=== PATIENT | female | born 1940 | race Caucasian/White ===

== ENCOUNTER 2018-06-22 16:05 | Observation (INO) | payer OTHER ==
[2018-06-22] MEDS ORDERED: FENTANYL CITR 100 MCG/2 ML IV PRN (17:18)
[2018-06-22 17:39] VITALS: BMI 38.1
[2018-06-22] MEDS ORDERED: ACETAMINOPHEN 325 MG TABLET PO PRN (18:00)
[2018-06-22] MEDS ORDERED: ONDANSETRON 4 MG/2 ML VIAL IV PRN (18:00)
[2018-06-22] MEDS ORDERED: POLYETHYL GLY 3350 17 GM/DOSE PO PRN (18:00)
[2018-06-22] MEDS ORDERED: PNEUMOCOCCAL VACCINE 0.5 ML IMVAC ONE (18:00)
[2018-06-22] MEDS ORDERED: DIPHENHYDRAMINE 25 MG TAB/CAP PO PRN (18:00)
[2018-06-22] MEDS ORDERED: LOPERAMIDE HCL 2 MG CAPSULE PO PRN (18:00)
[2018-06-22] MEDS ORDERED: NACHLORIDE 0.45% 1,000 ML IV SCH (18:00)
[2018-06-22] MEDS ORDERED: ONDANSETRON 4 MG (ODT) TAB PO PRN (18:00)
[2018-06-22] MEDS ORDERED: MECLIZINE HCL 25 MG PO PRN (18:10)
[2018-06-22 18:28] LABS: Absolute Lymphocytes (CBC) 1.5 K/uL (0.7-4.9); Absolute Monocytes 0.7 K/uL (0.1-1.3); Absolute Neutrophil 2.1 K/uL (1.8-8.0); Basophils % 0.5 % (0-1.3); Eosinophils % 0.7 % (0-4.4); Lymphocytes % 34.2 % (15.3-44.8); Monocytes % 16.2 % (3.3-12.3); RBC Red Blood Cell Count 3.71 M/uL (3.86-4.86)
[2018-06-22] MEDS ORDERED: FLUOCINONIDE 0.05% CREAM 30GM TOP PRN (18:30)
[2018-06-22] MEDS ORDERED: TIMOLOL MALEATE 0.5% OPTH 5 ML BTL OPTH SCH (18:30)
[2018-06-22 18:31] LABS: Protime INR 0.91
[2018-06-22 18:53] LABS: Urine Appearance CLOUDY; Urine Blood NEGATIVE (NEG); Urine Color DK YELLOW; Urine Glucose 1+ (NEG); Urine Protein TRACE (NEG); Urine Specific Gravity 1.025 (1.005-1.030)
[2018-06-22 18:55] LABS: Urine Microscopic Reflex ORDER UMIC
[2018-06-22 18:56] LABS: Urine Bilirubin 1+ (NEG)
[2018-06-22] MEDS ORDERED: LORazepam 2 MG/ML VIAL IV ONE (19:01)
[2018-06-22 19:05] LABS: Urine Bacteria 20-50 /HPF (<20); Urine Culture Reflex Order REFLEXED; Urine Mucus 2+ /HPF (NONE SEEN); Urine RBC <5 /HPF (NONE SEEN)
[2018-06-22 19:07] LABS: ALT/SGPT 38 U/L (12-78); AST/SGOT 36 U/L (15-37); Albumin 3.4 g/dL (3.4-5.0); Alkaline Phosphatase 82 U/L (45-117); BUN Blood Urea Nitrogen 37 mg/dL (7-18); Bicarbonate 25 mmol/L (21-32); Bilirubin Direct < 0.1 mg/dL (0-0.2); Bilirubin Total 0.4 mg/dL (0.2-1.0); C-Reactive Protein < 2.90 mg/L (<3.00); Glucose Level 274 mg/dL (74-106); Magnesium 2.1 mg/dL (1.8-2.4); Phosphorus 2.8 mg/dL (2.5-4.9); Potassium 4.9 mmol/L (3.5-5.1); Protein, Total 7.8 g/dL (6.4-8.2); Sodium Level 135 mmol/L (136-145)
[2018-06-22 19:15] LABS: Platelet Estimate ADEQ; Rouleau NOTED
[2018-06-22 19:16] LABS: Blood Morphology Comment NOTED (NOT SEEN); Macrocytosis 3+
[2018-06-22] MEDS ORDERED: GLUCAGON 1 MG/VIAL IM PRN (20:30)
[2018-06-22] MEDS ORDERED: D50W 25 GM/50 ML SYRINGE IV PRN (20:30)
[2018-06-22] MEDS ORDERED: INSULIN DETEMIR 25 UNIT SQ SCH (20:30)
--- NOTE | 2018-06-22 20:47 | RAD REPORT ---
EXAM DESCRIPTION: RAD - Chest Pa And Lat (2 Views) - 06/22/2018 8:34 pm CLINICAL HISTORY: intractable headache Chest pain. COMPARISON: CHEST PA AND LAT 2 VIEW dated 11/27/2011; CHEST PA AND LAT 2 VIEW dated 08/07/2009; CHEST P A AND LAT 2 VIEW dated 12/18/2008; CHEST PA AND LAT 2 VIEW dated 05/07/2006 FINDINGS: Mild interstitial prominence is seen which may represent mild interstitial pulmonary edema or viral pneumonitis. No focal consolidation typical of pneumonia present. The heart is upper limit of normal in size. Cholecystectomy clips.
--- NOTE | 2018-06-22 20:54 | RAD REPORT ---
EXAM DESCRIPTION: MRI - Brain W/Wo Cont - 06/22/2018 8:30 pm CLINICAL HISTORY: INTRACTABLE HEADACHE Severe headache, drowsiness COMPARISON: MRA Head Wo Cont dated 06/22/2018; Stroke Protocol dated 02/17/2017 TECHNIQUE: Multi-sequence, multiplanar MR imaging of the brain was performed with contrast. FINDINGS: No intracranial hemorrhage, hydrocephalus, or extra-axial fluid collection.Pilb-ad-eeapwmw e T2 and FLAIR hyperintensity is seen in the periventricular deep white matter compatible with chroni c microvascular ischemic changes. No edema or shift of midline structures. CSF intensity collection i n the left middle cranial fossa is unchanged, likely an arachnoid cyst.No intracranial mass. DWI is n egative for acute CVA. The midline structures are normally formed. Mastoid air cells and paranasal sinuses are clear. Post-contrast images show no abnormal enhancement to suggest tumor or infection. IMPRESSION: No acute or aggressive intracranial abnormalities. No adverse change since 2017 comparative MR study.
--- NOTE | 2018-06-22 20:55 | RAD REPORT ---
EXAM DESCRIPTION: MRI - MRA Head Wo Cont - 06/22/2018 8:28 pm CLINICAL HISTORY: intractable headache Headache, vomiting, drowsiness COMPARISON: Head Brain Wo Cont dated 02/17/2017 FINDINGS: 3D noncontrast ywst-vj-[id number] MR angiography of the [place] was performed. No aneurysm, flow-limiting stenosis or vascular malformation is seen. Forward flow seen in right-side d dominant vertebral arteries. The visualized dural venous sinuses appear patent. IMPRESSION: No significant flow abnormality of the [place] is identified.
--- NOTE | 2018-06-22 20:58 | RAD REPORT ---
EXAM DESCRIPTION: MRI - MRA Neck W/Wo Cont - 06/22/2018 8:30 pm CLINICAL HISTORY: INTRACTABLE HEADACHE Headache, drowsiness COMPARISON: Stroke Protocol dated 02/17/2017 FINDINGS: Contrast enhance 2D [id number]-[id number] MR angiography of the neck vessels was performed. Left aortic arch is noted with a bovine branching configuration. Both subclavian arteries and common carotid arteries are patent. A focal stenosis is identified involving the right carotid bulb estimated at 90% based on NASCET crit eria. No significant stenosis suspected involving the left internal carotid artery. Antegrade flow is seen in both vertebral arteries, with right-sided dominance. IMPRESSION: Right carotid bulb 90% focal stenosis suspected based on NASCET criteria.
[2018-06-22] MEDS: INSULIN -REGULAR HUMAN 50 UNIT/0.5 ML ML SQ SCH (21:00)
[2018-06-22] MEDS: MAGNESIUM OXIDE 400 MG TAB PO SCH (21:00)
[2018-06-22] MEDS: FENTANYL CITR 100 MCG/2 ML IV PRN (22:59)
[2018-06-23] MEDS: FENTANYL CITR 100 MCG/2 ML IV PRN ×2 (01:55→17:25)
[2018-06-23 06:29] LABS: Absolute Lymphocytes (CBC) 1.6 K/uL (0.7-4.9); Absolute Neutrophil 2.3 K/uL (1.8-8.0); Basophils % 0.7 % (0-1.3); Eosinophils % 1.4 % (0-4.4); Lymphocytes % 32.2 % (15.3-44.8); MPV 8.9 fL (7.6-11.3); Monocytes % 20.1 % (3.3-12.3); RBC Red Blood Cell Count 3.61 M/uL (3.86-4.86)
[2018-06-23 06:43] LABS: Magnesium 2.1 mg/dL (1.8-2.4); Potassium 4.4 mmol/L (3.5-5.1)
[2018-06-23] MEDS: INSULIN -REGULAR HUMAN 50 UNIT/0.5 ML ML SQ SCH ×3 (07:30→16:30)
--- NOTE | 2018-06-23 07:34 | EKG ---
Test Date: 2018-06-22 Test Time: 17:43:53 [employer] Installation Supervisor: MISSAEL MEASUREMENT RESULTS: Intervals: Rate: 54 SD: 182 QRSD: 98 QT: 456 QTc: 432 [place]: P: 27 SD: 182 QRS: 15 T: 29 INTERPRETIVE STATEMENTS: Sinus bradycardia with sinus arrhythmia Otherwise normal ECG Compared to ECG 02/17/2017 12:32:49 Sinus rhythm no longer present Electronically Signed On 06-23-18 07:33:41 CDT by Tunde Tiwari
[2018-06-23] MEDS ORDERED: INSULIN ASPART 15 UNIT SQ SCH (08:00)
[2018-06-23] MEDS ORDERED: PANTOPRAZOLE 40MG TABLET PO SCH (08:00)
[2018-06-23 08:26] VITALS: BP 166/72
[2018-06-23] MEDS: MAGNESIUM OXIDE 400 MG TAB PO SCH (09:00)
[2018-06-23] MEDS ORDERED: HOME MED 1 EA UNK (Ropinirole Hcl [Ropinirole Hcl] 0.5 MG) PO SCH (09:00)
[2018-06-23] MEDS ORDERED: ASPIRIN EC 81 MG TAB PO SCH (09:00)
[2018-06-23] MEDS ORDERED: HYDROXYUREA 500 MG CAP PO SCH (09:00)
[2018-06-23] MEDS ORDERED: CLOPIDOGREL 75 MG TABLET PO SCH (09:00)
[2018-06-23] MEDS ORDERED: OXcarbazepine 150 MG TAB PO SCH (09:00)
[2018-06-23] MEDS ORDERED: SPIRONOLACTONE 100 MG TAB PO SCH (09:00)
[2018-06-23] MEDS ORDERED: AMLODIPINE 2.5 MG TAB PO SCH (09:00)
[2018-06-23] MEDS ORDERED: PREGABALIN 50 MG CAP PO SCH (09:54)
[2018-06-23] MEDS: ACYCLOVIR INJ 500 MG in NA CHLORIDE 0.9% 100 ML IVPB SCH ×2 (10:47→17:26)
[2018-06-23 12:26] VITALS: TEMP 97
[2018-06-23 16:13] VITALS: O2SAT 96
[2018-06-23] MEDS ORDERED: HOME MED 1 EA UNK (Insulin Detemir [Levemir Flextouch] 10 UNITS) SQ SCH (17:00)
--- NOTE | 2018-06-23 21:37 | P.DS ---
Admission Date: 06/22/18 Discharge Date: 06/23/18 Disposition: ROUTINE DISCHARGE Discharge Condition: FAIR Hospital Course: MRS. MORENO DEVELOPED RASH ALONG THE DERMATOM IN THE AREA OF PAIN. SCALP, L SIDE CHEEK. THIS CONFIRMS SHINGLES. SHE IS GIVEN TWO DOSE OF IV ACYCLCIR, ORAL LYRICA AND THEN SENT HOME ON ORAL MEDS. DW DAUGHTER TWICE Vital Signs/Physical Exam: Temp Pulse Resp BP Pulse Ox 97 F 67 17 166/72 H 96 06/23/18 12:00 06/23/18 12:00 06/23/18 12:00 06/23/18 08:00 06/23/18 12:00 Laboratory Data at Discharge: WBC 5.1 K/uL (4.3-10.9) D 06/23/18 05:35 Hgb 14.1 g/dL (12.0-15.0) 06/23/18 05:35 Hct 42.0 % (36.0-45.0) 06/23/18 05:35 Plt Count 234 K/uL (152-406) 06/23/18 05:35 PT 10.8 SECONDS (9.5-12.5) 06/22/18 18:08 INR 0.91 06/22/18 18:08 APTT 26.7 SECONDS (24.3-36.9) 06/22/18 18:08 Sodium 137 mmol/L (136-145) 06/23/18 05:35 Potassium 4.4 mmol/L (3.5-5.1) 06/23/18 05:35 BUN 29 mg/dL (7-18) H 06/23/18 05:35 Creatinine 0.93 mg/dL (0.55-1.3) 06/23/18 05:35 Glucose 209 mg/dL (74-106) H 06/23/18 05:35 Phosphorus 2.8 mg/dL (2.5-4.9) 06/22/18 18:08 Magnesium 2.1 mg/dL (1.8-2.4) 06/23/18 05:35 Total Bilirubin 0.4 mg/dL (0.2-1.0) 06/22/18 18:08 AST 36 U/L (15-37) 06/22/18 18:08 ALT 38 U/L (12-78) 06/22/18 18:08 Alkaline Phosphatase 82 U/L (45-117) 06/22/18 18:08 Home Medications: Amlodipine Besylate [Norvasc] 2.5 mg PO DAILY 06/22/18 Aspirin [Aspirin EC 81 MG] 81 mg PO DAILY 06/22/18 Clopidogrel Bisulfate [Plavix] 75 mg PO DAILY 06/22/18 Fluocinonide [Lidex] 1 appl TOP DAILY PRN 06/22/18 Hydroxyurea [Hydrea] 500 mg PO DAILY 06/22/18 Insulin Aspart [Novolog Flexpen] 15 unit SQ TIDWM 06/22/18 Insulin Detemir [Levemir Flextouch] 10 units SQ DAILY AT SUPPER 06/22/18 Insulin Detemir [Levemir Flextouch] 25 unit SQ 30 MIN BEFORE HS 06/22/18 Magnesium Oxide [Mag 0X Tab] 400 mg PO BID 06/22/18 Meclizine HCl [Motion Sickness Relief] 25 mg PO TID PRN 06/22/18 Pantoprazole Sodium 40 mg PO DAILY WITH BREAKFAST 06/22/18 Ropinirole HCl 0.5 mg PO DAILY 06/22/18 Spironolactone [Aldactone] 100 mg PO DAILY 06/22/18 Timolol 0.5% Opth [Timoptic 0.5% Opth*] 50 drops EACH EYE DAILY 06/22/18 Pregabalin [Lyrica] 75 mg PO BID #60 cap 06/23/18 Valacyclovir [Valtrex] 1,000 mg PO BID #20 tab 06/23/18 New Medications: Pregabalin [Lyrica] 75 mg PO BID #60 cap Valacyclovir [Valtrex] 1,000 mg PO BID #20 tab Followup: Frederick Gomez MD [Primary Care Provider] -
== END 2018-06-23 19:00 | disposition home or self-care (01) ==
LOC: 2ND 16:20
PROVIDERS: ADMIT Internal Medicine; ATTEND Internal Medicine
DX: B02.9 Zoster without complications (principal); E11.9 Type 2 diabetes mellitus without complications; I10 Essential (primary) hypertension; E78.5 Hyperlipidemia, unspecified; Z88.7 Allergy status to serum and vaccine; Z86.73 Personal history of transient ischemic attack (TIA), and cerebral infarction without residual deficits
CPT/HCPCS: 93005; 87088; 85025 ×2; 87086; 80048 ×2; 36415 ×2; 83735 ×2; 84100; 85610; 82962 ×5; 80076; 85730; 85652; 84443; 82607; 82306; 86140; 71046; 70553; 70544; 70549; A9577; J3010 ×4; J0133; G0379; G0378; 81003; 81015

== ENCOUNTER 2018-07-11 18:38 | Emergency (ER) | payer OTHER ==
[2018-07-11] MEDS ORDERED: ONDANSETRON 4 MG/2 ML VIAL ONE (19:35)
[2018-07-11] MEDS ORDERED: MORPHINE 4 MG/ML SYR ONE (19:35)
[2018-07-11 19:44] LABS: Absolute Lymphocytes (CBC) 1.5 K/uL (0.7-4.9); Absolute Monocytes 0.9 K/uL (0.1-1.3); Absolute Neutrophil 5.3 K/uL (1.8-8.0); Basophils % 0.3 % (0-1.3); Eosinophils % 0.3 % (0-4.4); Hematocrit 39.2 % (36.0-45.0); Lymphocytes % 18.9 % (15.3-44.8); MPV 9.1 fL (7.6-11.3); Monocytes % 12.1 % (3.3-12.3); RBC Red Blood Cell Count 3.37 M/uL (3.86-4.86)
[2018-07-11 20:01] LABS: Albumin 3.5 g/dL (3.4-5.0); Bilirubin Total 1.1 mg/dL (0.2-1.0); Potassium 5.2 mmol/L (3.5-5.1); Protein, Total 7.8 g/dL (6.4-8.2)
[2018-07-11 20:29] LABS: Blood Morphology Comment NOTED (NOT SEEN); Macrocytosis 1+; Platelet Estimate ADEQ; Urine White Blood Cell Casts OK
--- NOTE | 2018-07-11 20:54 | RAD REPORT ---
EXAM DESCRIPTION: RAD - Hip Left 2 View - 07/11/2018 8:09 pm CLINICAL HISTORY: Fall, twisting injury, hip pain COMPARISON: None. FINDINGS: AP and frogleg views of the left hip were obtained. There is no fracture or dislocation. N o acute or destructive bony process seen. Moderate severity degenerative change involves the joint. No pathologic bone process. No periarticular mass or hematoma. There may be minimal bruising in the lateral subcu fat. IMPRESSION: Negative left hip examination for acute or significant findings.
--- NOTE | 2018-07-11 20:55 | RAD REPORT ---
EXAM DESCRIPTION: RAD - Knee Left 3 View - 07/11/2018 8:09 pm CLINICAL HISTORY: Fall, twisting injury, knee pain COMPARISON: None. FINDINGS: No fracture, dislocation or periosteal reaction.No joint effusion seen. Significant patell ofemoral and medial compartment joint space narrowing. Large medial compartment spurs are present. No pathologic bone process. No soft tissue abnormality. IMPRESSION: Advanced left knee degenerative change without acute bone or joint finding. Clinical concerns for internal derangement or occult bony injury could be further assessed with MR im aging.
--- NOTE | 2018-07-11 21:19 | ER ---
Nurse's Notes [facility] Name: Arminda Rodriguez Age: 78 yrs Sex: Female : 1940 Arrival Date: 07/11/2018 Time: 18:42 Bed 6 Private MD: Diagnosis: Contusion of left hip;Pain in left knee;Osteoarthritis of hip-left;Osteoarthritis of knee-left Presentation: 07/11 18:42 Presenting complaint: EMS states: EMS states patient fell after taking a shower in a ae3 "twisting, sitting motion" and is now having severe pain in her left knee and left hip areas. Patient is unable to stand or place weight on left leg. Mechanism of Injury: Fall. 18:42 Acuity: GORDO 3 ae3 18:42 Method Of Arrival: EMS: [facility] ae3 18:58 Transition of care: patient was not received from another setting of care. Onset of ph symptoms was July 11, 2018. Risk Assessment: Do you want to hurt yourself or someone else? Patient reports no desire to harm self or others. Initial Sepsis Screen: Does the patient meet any 2 criteria? No. Patient's initial sepsis screen is negative. Does the patient have a suspected source of infection? No. Patient's initial sepsis screen is negative. Care prior to arrival: None. 18:59 Trauma event details: Injury occurred in the [facility], Injury occurred: at home. Injury occurred: July 10, 2018. Trauma Activation: Not Applicable Physician: ED Physician; Name: ; Notified At: ; Arrived At: Physician: General Surgeon; Name: ; Notified At: ; Arrived At: Physician: Radiology; Name: ; Notified At: ; Arrived At: Physician: Respiratory; Name: ; Notified At: ; Arrived At: Physician: Lab; Name: ; Notified At: ; Arrived At: Historical: - Allergies: 18:54 Amaryl; ae3 18:54 Amoxicillin; ae3 18:54 ANGIOTENSIN RECEPTOR ANTAGONIST; ae3 18:54 Augmentin; ae3 18:54 Byetta; ae3 18:54 Demerol; ae3 18:54 Hydrocodone-Acetaminophen; ae3 18:54 Januvia; ae3 18:54 Lantus; ae3 18:54 metformin; ae3 18:54 Niaspan; ae3 18:54 QUINOLONES; ae3 18:54 Pmonzwf-Dmg-Zsl Reductase Inhibitors; ae3 18:54 Tetanus Immune Globulin; ae3 18:54 Zetia; ae3 - Home Meds: 18:54 Aldactone 50 mg Oral tab 1 tab once daily [Active]; Jublia 10 % Topical benigno once daily ae3 [Active]; Levemir FlexTouch 100 unit/mL (3 mL) subcutaneous inpn [Active]; Norvasc 2.5 mg Oral tab 1 tab once daily [Active]; Novolin R Sub-Q [Active]; - PMHx: 18:54 CAD; Diabetes - NIDDM; Hyperlipidemia; Hypertension; VENTRAL HERNIA; ae3 - Immunization history:: Adult Immunizations unknown. - Immunization history: Last tetanus immunization: - up to date. - Social history:: Smoking status: Patient/guardian denies using tobacco. - Ebola Screening: : No symptoms or risks identified at this time. Screenin:51 Abuse screen: Denies threats or abuse. Tuberculosis screening: No symptoms or risk ae3 factors identified. 18:56 Fall Risk Fall in past 12 months (25 points). No secondary diagnosis (0 pts). IV access ph (20 points). Ambulatory Aid- None/Bed Rest/Nurse Assist (0 pts). Gait- Impaired (20 pts.). Mental Status- Oriented to own ability (0 pts). Total Benítez Fall Scale indicates High Risk Score (45 or more points). Fall prevention measures have been instituted. Side Rails Up X 2 Placed Close to Nursing Station Frequent Obs/Assessments Occuring As available patient and family educated on Fall Prevention Program and Strategies. 18:59 Nutritional screening: No deficits noted. ph Primary Survey: 18:48 NO uncontrolled hemorrhage observed. A: The patient is alert. Airway: patent. ae3 Breathing/Chest: Respiratory pattern: regular, Respiratory effort: spontaneous. Circulation: Skin color: pink. Disability Alert. Exposure/Environment:. 20:17 Reassessment Airway Airway Breathing/Chest Respiratory pattern Regular Respiratory ak1 effort Unlabored. Assessment: 18:42 General: Appears distressed, uncomfortable, obese, unkempt, Behavior is cooperative, ae3 anxious, restless. Pain: Complains of pain in left hip Pain currently is 10 out of 10 on a pain scale. Neuro: Level of Consciousness is awake, alert, obeys commands, Oriented to person, place, time, situation. Respiratory: Airway is patent Respiratory effort is even, unlabored. Vital Signs: 18:42 BP 197 / 163; Pulse 81; Resp 22; Temp 99.3; Pulse Ox 100% on R/A; Weight 98.88 kg; Pain ph 10/10; 20:16 BP 149 / 129; Pulse 65; Resp 20; Temp 98.8; Pulse Ox 100% on R/A; ak1 21:13 BP 147 / 69; Pulse 63; Resp 20; Temp 98.8; Pulse Ox 100% on R/A; ak1 22:29 BP 134 / 72; Pulse 74; Resp 16; Temp 99.2(TE); Pulse Ox 98% on R/A; Pain 4/10; ak1 Sherri Coma Score: 18:42 Eye Response: spontaneous(4). Verbal Response: oriented(5). Motor Response: obeys ph commands(6). Total: 15. 18:51 Eye Response: spontaneous(4). Verbal Response: oriented(5). Motor Response: obeys ae3 commands(6). Total: 15. Trauma Score (Adult): 18:42 Eye Response: spontaneous(1); Verbal Response: oriented(1); Motor Response: obeys ph commands(2); Systolic BP: > 89 mm Hg(4); Respiratory Rate: 10 to 29 per min(4); Freeland Score: 15; Trauma Score: 12 18:51 Eye Response: spontaneous(1); Verbal Response: oriented(1); Motor Response: obeys ae3 commands(2); Systolic BP: > 89 mm Hg(4); Respiratory Rate: 10 to 29 per min(4); Sherri Score: 15; Trauma Score: 12 ED Course: 18:42 Patient arrived in ED. ae3 18:45 Saúl Del Cid NP is PHCP. pm1 18:45 Jake Espino MD is Attending Physician. pm1 18:46 Triage completed. ae3 18:50 Bed in low position. Side rails up X2. Pulse ox on. NIBP on. Warm blanket given. ae3 18:52 Arm band placed on. ph 18:52 Patient maintains SpO2 saturation greater than 95% on room air. ae3 18:58 Thermoregulation: warm blanket given to patient. ph 19:36 Krenek, Trudy, RN is Primary Nurse. ak1 19:38 Initial lab(s) drawn, by me, sent to lab. X-ray(s) taken. Inserted saline lock: 24 ak1 gauge in right antecubital area, using aseptic technique. Blood collected. 20:10 Knee Left 3 View XRAY In Process Unspecified. EDMS 20:10 Hip Left 2 View XRAY In Process Unspecified. EDMS 22:31 No provider procedures requiring assistance completed. ak1 23:01 IV discontinued, intact, bleeding controlled, No redness/swelling at site. Pressure ak1 dressing applied. Administered Medications: 19:37 Drug: morphine 4 mg Route: IVP; Site: right antecubital; ak1 20:07 Follow up: Response: No adverse reaction ak1 19:37 Drug: Zofran 4 mg Route: IVP; Site: right antecubital; ak1 20:07 Follow up: Response: No adverse reaction ak1 21:35 Drug: NS 0.9% 500 ml Route: IV; Rate: bolus; Site: right antecubital; ak1 22:30 Follow up: IV Status: Completed infusion; IV Intake: 500ml ak1 21:35 Drug: morphine 2 mg Route: IVP; Site: right antecubital; ak1 22:30 Follow up: Response: No adverse reaction; Pain is decreased ak1 23:02 Not Given (pt and family refused, Saúl notified. ): Kayexalate 15 grams PO once ak1 23:02 Drug: traMADol 50 mg Route: PO; ak1 23:04 Follow up: Response: No adverse reaction; Pain is decreased ak1 Intake: 18:42 PO: 0ml; Total: 0ml. ph 22:30 IV: 500ml; Total: 500ml. ak1 Output: 18:42 Urine: 0ml; Total: 0ml. ph Outcome: 21:18 Discharge ordered by . pm1 22:31 Condition: stable ak1 23:01 Discharged to home via wheelchair, with family. ak1 23:01 Discharge instructions given to patient, family, Instructed on discharge instructions, follow up and referral plans. no drinking with medication, no driving heavy equipment, medication usage, Demonstrated understanding of instructions, follow-up care, medications, Prescriptions given X 1. 23:03 Patient's length of stay in the Emergency Department was greater than 2 hours. pt ak1 family stated they did not believe they could care for pt if she came home, other options explored with no success. pt family to contact local rehab facilities in the morning for possible placement. Patient's length of stay extended due to 23:10 Patient left the ED. ak1 Signatures: Dispatcher [employer] EDTrudy Yang RN RN ak1 Susanna Mckeon RN RN ph Marinas, Patrick, SHEET METAL PRODUCTION WORKER SHEET METAL PRODUCTION WORKER pm1 Brittanie Paulino
--- NOTE | 2018-07-11 21:19 | EDPHYS ---
Physician Documentation [facility] Name: Arminda Rodriguez Age: 78 yrs Sex: Female : 1940 Arrival Date: 07/11/2018 Time: 18:42 Bed 6 Private MD: ED Physician Jake Espino HPI: 07/11 19:45 This 78 yrs old Female presents to ER via EMS with complaints of Fall Injury. pm1 19:45 Details of fall: The patient fell from an upright position, while standing. Onset: The pm1 symptoms/episode began/occurred yesterday. Associated injuries: The patient sustained left hip and left knee. Severity of symptoms: in the emergency department the symptoms are actually worse. The patient has not experienced similar symptoms in the past. The patient has not recently seen a physician, the patient's primary care provider is Dr. Gomez. Patient was standing in her bathroom and fell on her left side yesterday. Patient is primarily W/C bound. Reports bilateral knees have needed replacement for years. Presents with pain to left hip and left knee. Denies headache, head injury, LOC, neck pain, nausea and vomiting. Historical: - Allergies: 18:54 Amaryl; ae3 18:54 Amoxicillin; ae3 18:54 ANGIOTENSIN RECEPTOR ANTAGONIST; ae3 18:54 Augmentin; ae3 18:54 Byetta; ae3 18:54 Demerol; ae3 18:54 Hydrocodone-Acetaminophen; ae3 18:54 Januvia; ae3 18:54 Lantus; ae3 18:54 metformin; ae3 18:54 Niaspan; ae3 18:54 QUINOLONES; ae3 18:54 Frljgyw-Krz-Otr Reductase Inhibitors; ae3 18:54 Tetanus Immune Globulin; ae3 18:54 Zetia; ae3 - Home Meds: 18:54 Aldactone 50 mg Oral tab 1 tab once daily [Active]; Jublia 10 % Topical benigno once daily ae3 [Active]; Levemir FlexTouch 100 unit/mL (3 mL) subcutaneous inpn [Active]; Norvasc 2.5 mg Oral tab 1 tab once daily [Active]; Novolin R Sub-Q [Active]; - PMHx: 18:54 CAD; Diabetes - NIDDM; Hyperlipidemia; Hypertension; VENTRAL HERNIA; ae3 - Immunization history:: Adult Immunizations unknown. - Immunization history: Last tetanus immunization: - up to date. - Social history:: Smoking status: Patient/guardian denies using tobacco. - Ebola Screening: : No symptoms or risks identified at this time. ROS: 19:45 Constitutional: Negative for fever, chills, and weight loss, Eyes: Negative for injury, pm1 pain, redness, and discharge, ENT: Negative for injury, pain, and discharge, Neck: Negative for injury, pain, and swelling, Cardiovascular: Negative for chest pain, palpitations, and edema, Respiratory: Negative for shortness of breath, cough, wheezing, and pleuritic chest pain, Abdomen/GI: Negative for abdominal pain, nausea, vomiting, diarrhea, and constipation, Back: Negative for injury and pain, : Negative for injury, bleeding, discharge, and swelling. 19:45 Skin: Negative for injury, rash, and discoloration, Neuro: Negative for headache, weakness, numbness, tingling, and seizure. 19:45 MS/extremity: Positive for pain, of the left hip and left knee, Negative for deformity. Exam: 19:45 Constitutional: This is a well developed, well nourished patient who is awake, alert, pm1 and in no acute distress. Head/Face: Normocephalic, atraumatic. Eyes: Pupils equal round and reactive to light, extra-ocular motions intact. Lids and lashes normal. Conjunctiva and sclera are non-icteric and not injected. Cornea within normal limits. Periorbital areas with no swelling, redness, or edema. ENT: Nares patent. No nasal discharge, no septal abnormalities noted. Tympanic membranes are normal and external auditory canals are clear. Oropharynx with no redness, swelling, or masses, exudates, or evidence of obstruction, uvula midline. Mucous membranes moist. Neck: Trachea midline, no thyromegaly or masses palpated, and no cervical lymphadenopathy. Supple, full range of motion without nuchal rigidity, or vertebral point tenderness. No Meningismus. Chest/axilla: Normal chest wall appearance and motion. Nontender with no deformity. No lesions are appreciated. Cardiovascular: Regular rate and rhythm with a normal S1 and S2. No gallops, murmurs, or rubs. Normal PMI, no JVD. No pulse deficits. Respiratory: Lungs have equal breath sounds bilaterally, clear to auscultation and percussion. No rales, rhonchi or wheezes noted. No increased work of breathing, no retractions or nasal flaring. Abdomen/GI: Soft, non-tender, with normal bowel sounds. No distension or tympany. No guarding or rebound. No evidence of tenderness throughout. Back: No spinal tenderness. No costovertebral tenderness. Full range of motion. Skin: Warm, dry with normal turgor. Normal color with no rashes, no lesions, and no evidence of cellulitis. 19:45 Musculoskeletal/extremity: Extremities: grossly normal except: noted in the left knee: tenderness, There is no evidence of deformity, noted in the left hip: no evidence of deformity. 19:45 Neuro: Orientation: is normal, Motor: is normal, moves all fours, Sensation: is normal, no obvious gross deficits. Vital Signs: 18:42 BP 197 / 163; Pulse 81; Resp 22; Temp 99.3; Pulse Ox 100% on R/A; Weight 98.88 kg; Pain ph 10/10; 20:16 BP 149 / 129; Pulse 65; Resp 20; Temp 98.8; Pulse Ox 100% on R/A; ak1 21:13 BP 147 / 69; Pulse 63; Resp 20; Temp 98.8; Pulse Ox 100% on R/A; ak1 22:29 BP 134 / 72; Pulse 74; Resp 16; Temp 99.2(TE); Pulse Ox 98% on R/A; Pain 4/10; ak1 Independence Coma Score: 18:42 Eye Response: spontaneous(4). Verbal Response: oriented(5). Motor Response: obeys ph commands(6). Total: 15. 18:51 Eye Response: spontaneous(4). Verbal Response: oriented(5). Motor Response: obeys ae3 commands(6). Total: 15. Trauma Score (Adult): 18:42 Eye Response: spontaneous(1); Verbal Response: oriented(1); Motor Response: obeys ph commands(2); Systolic BP: > 89 mm Hg(4); Respiratory Rate: 10 to 29 per min(4); Independence Score: 15; Trauma Score: 12 18:51 Eye Response: spontaneous(1); Verbal Response: oriented(1); Motor Response: obeys ae3 commands(2); Systolic BP: > 89 mm Hg(4); Respiratory Rate: 10 to 29 per min(4); Independence Score: 15; Trauma Score: 12 MDM: 18:48 Patient medically screened. staci 21:10 Data reviewed: vital signs. Data interpreted: Pulse oximetry: on room air is 100 %. pm1 Interpretation: normal. Counseling: I had a detailed discussion with the patient and/or guardian regarding: the historical points, exam findings, and any diagnostic results supporting the discharge/admit diagnosis, lab results, radiology results, the need for outpatient follow up, to return to the emergency department if symptoms worsen or persist or if there are any questions or concerns that arise at home. 23:00 ED course: Explained to family at length that patient does not meet admission criteria pm1 due to diagnosis of contusion and advanced degenerative diseases/arthritis to left knee and left hip. Instructed patient and family that she will need to be evaluated by PCP, Dr. Gomez for home health care or residential. Family would prefer that the patient receive home adalberto nursing. 07/11 18:50 Order name: CBC with Diff; Complete Time: 20:29 pm1 07/11 18:50 Order name: CMP; Complete Time: 20:03 pm1 07/11 18:50 Order name: PT-INR; Complete Time: 19:53 pm1 07/11 18:50 Order name: Knee Left 3 View XRAY; Complete Time: 21:02 pm1 07/11 18:50 Order name: Hip Left 2 View XRAY; Complete Time: 21:02 pm1 07/11 20:29 Order name: CBC Smear Scan; Complete Time: 20:29 EDMS 07/11 18:50 Order name: IV Saline Lock; Complete Time: 19:38 pm1 Administered Medications: 19:37 Drug: morphine 4 mg Route: IVP; Site: right antecubital; ak1 20:07 Follow up: Response: No adverse reaction ak1 19:37 Drug: Zofran 4 mg Route: IVP; Site: right antecubital; ak1 20:07 Follow up: Response: No adverse reaction ak1 21:35 Drug: NS 0.9% 500 ml Route: IV; Rate: bolus; Site: right antecubital; ak1 22:30 Follow up: IV Status: Completed infusion; IV Intake: 500ml ak1 21:35 Drug: morphine 2 mg Route: IVP; Site: right antecubital; ak1 22:30 Follow up: Response: No adverse reaction; Pain is decreased ak1 23:02 Not Given (pt and family refused, Saúl notified. ): Kayexalate 15 grams PO once ak1 23:02 Drug: traMADol 50 mg Route: PO; ak1 23:04 Follow up: Response: No adverse reaction; Pain is decreased ak1 Disposition: 07/12 06:48 Co-signature as Attending Physician, Jake Espino MD I agree with the assessment and staci plan of care. Disposition: 07/11/18 21:18 Discharged to Home. Impression: Contusion of left hip, Pain in left knee, Osteoarthritis of hip - left, Osteoarthritis of knee - left. - Condition is Stable. - Discharge Instructions: Arthritis, Contusion, Fall Prevention in the Home, Knee Pain, Hip Pain. - Prescriptions for Tramadol 50 mg Oral Tablet - take 1 tablet by ORAL route every 8 hours As needed as needed; 20 tablet. - Medication Reconciliation Form, Thank You Letter, Antibiotic Education, Prescription Opioid Use form. - Follow up: Emergency Department; When: As needed; Reason: Worsening of condition. Follow up: Private Physician; When: 2 - 3 days; Reason: Recheck today's complaints, Continuance of care, Re-evaluation by your physician. - Problem is new. - Symptoms have improved. Signatures: Dispatcher [employer] [facility] Jake Espino MD MD cha Krenek, Amber RN RN ak1 Susanna Mckeon RN RN Saúl Ribeiro, KILN CAR UNLOADER KILN CAR UNLOADER pm1 Brittanie Paulino ae3 Corrections: (The following items were deleted from the chart) 07/11 20:05 20:04 Hip Left 2 View ordered. [facility] 23:10 21:18 07/11/2018 21:18 Discharged to Home. Impression: Contusion of left hip; Pain in ak1 left knee; Osteoarthritis of hip - left; Osteoarthritis of knee - left. Condition is Stable. Forms are Medication Reconciliation Form, Thank You Letter, Antibiotic Education, Prescription Opioid Use. Follow up: Emergency Department; When: As needed; Reason: Worsening of condition. Follow up: Private Physician; When: 2 - 3 days; Reason: Recheck today's complaints, Continuance of care, Re-evaluation by your physician. Problem is new. Symptoms have improved. pm1
[2018-07-11] MEDS ORDERED: MORPHINE 2 MG/ML SYR ONE (21:41)
[2018-07-11] MEDS ORDERED: NA CHLORIDE 0.9% 500 ML ONE (21:41)
[2018-07-11] MEDS ORDERED: SOD POLYSTYREN SUL 15 GM/60 ML UCUP ONE (21:42)
[2018-07-11] MEDS ORDERED: TRAMADOL HCL 50 MG TAB ONE (22:58)
[2018-07-11 23:30] VITALS: BP 134/72; TEMP 99.2; O2SAT 98
== END 2018-07-11 23:10 | disposition home or self-care (01) ==
LOC: ER 18:38
DX: S70.02XA Contusion of left hip, initial encounter (principal); W18.30XA Fall on same level, unspecified, initial encounter; Y93.89 Activity, other specified; Y92.002 Bathroom of unspecified non-institutional (private) residence as the place of occurrence of the external cause; M16.12 Unilateral primary osteoarthritis, left hip; M17.12 Unilateral primary osteoarthritis, left knee; M25.562 Pain in left knee; I10 Essential (primary) hypertension; E11.9 Type 2 diabetes mellitus without complications; E78.5 Hyperlipidemia, unspecified; Z88.6 Allergy status to analgesic agent; Z88.1 Allergy status to other antibiotic agents; Z88.8 Allergy status to other drugs, medicaments and biological substances; Z88.7 Allergy status to serum and vaccine
CPT/HCPCS: 85025; 36415; 85610; 80053; 73502; 73562; J2270; J2405; 96361; 96374; 96375; 99285

== ENCOUNTER 2018-07-27 07:19 | Inpatient (IN) | payer OTHER ==
[2018-07-26 14:44] LABS: Absolute Lymphocytes (CBC) 1.7 K/uL (0.7-4.9); Absolute Monocytes 0.9 K/uL (0.1-1.3); Basophils % 0.8 % (0-1.3); Eosinophils % 0.8 % (0-4.4); Lymphocytes % 29.8 % (15.3-44.8); MPV 8.3 fL (7.6-11.3); Monocytes % 16.2 % (3.3-12.3); RBC Red Blood Cell Count 3.38 M/uL (3.86-4.86)
[2018-07-26 14:58] LABS: Potassium 4.2 mmol/L (3.5-5.1)
[2018-07-26 16:03] LABS: Blood Morphology Comment NOTED (NOT SEEN); Macrocytosis 3+; Platelet Estimate ADEQ; Urine White Blood Cell Casts OK
[2018-07-27] MEDS ORDERED: NA CHLORIDE 0.9% 500 ML ONE (08:10)
[2018-07-27 08:50] LABS: Protime INR 0.94
[2018-07-27] MEDS ORDERED: HEPA 1000U/500MLS 1,000 UNIT/500 ML BAG IV ONE (09:01)
[2018-07-27] MEDS ORDERED: FENTANYL CITR 100 MCG/2 ML ONE (09:16)
[2018-07-27] MEDS ORDERED: MIDAZOLAM HCL 2 MG/2 ML INJ ONE (09:16)
[2018-07-27] MEDS ORDERED: ATROPINE SULF 1 MG/10 ML SYR IV ONE (09:17)
[2018-07-27] MEDS ORDERED: NA CHLORIDE 0.9% 0 ML ONE (09:17)
[2018-07-27 10:55] VITALS: O2SAT 100
[2018-07-27] MEDS ORDERED: ACETAMINOPHEN 325 MG TABLET PO PRN (12:01)
[2018-07-27] MEDS ORDERED: NITROGLYCERIN 0.4 MG/TAB SL PRN (12:01)
[2018-07-27] MEDS ORDERED: NA CHLORIDE 0.9% 1,000 ML IV SCH (13:00)
[2018-07-27 13:23] VITALS: BMI 37.8
[2018-07-27] MEDS ORDERED: PNEUMOCOCCAL VACCINE 0.5 ML IMVAC ONE (16:00)
[2018-07-27 16:34] VITALS: BP 171/69; TEMP 97.3
--- NOTE | 2018-07-27 18:32 | OP ---
Date of Procedure: 07/27/2018 Surgeon: Adán Harvey MD Retort Furnace Helper: Ms. Wogn and Ayaan Roca. Procedures: Bilateral selective carotid angiogram, selective coronary arteriogram, left heart cathet erization. Indication: Unstable angina and cerebral vascular disease. Procedure In Detail: Ms. Rodriguez is 78. Documented positive carotid Doppler and unstable angina. Adm itted for left heart catheterization, selective bilateral carotid angiogram as an outpatient today, 0 07/27/2018. She was prepped and draped in the routine sterile fashion. Given 50 mg of fentanyl and 4 mg of Versed for sedation. The right common femoral artery was cannulated with a 6-English sheath. Angiography using right Rick catheter was used to selectively cannulate both carotids. She had a left carotid that was normal. Her right carotid showed an 80% ulcerative plaque in the right interna l carotid artery. The common carotid was normal. The right coronary artery was completely occluded. Left Rick used to do the left main injection, showed a very long mid-LAD stenosis from the first septal to the second diagonal. Diffuse disease below that. Plaquing in the circumflex with collate rals to the RCA PD. The patient tolerated the procedure well. There were no complications. Blood Loss: 5 cc. Anesthesia: Total conscious sedation was 45 minutes. Final Diagnoses: Severe coronary artery disease and cardiovascular disease. Plan: We will admit the patient and [facility] carotid endarterectomy a nd bypass surgery at least hopefully the GUZMAN to the LAD. PEE/SULEIMAN Voice ID: [id number] Report ID: [id number]
== END 2018-07-27 16:42 | disposition short-term general hospital (02) | DRG 287 ==
LOC: CCL 07:19 → 2ND 12:13
PROC: 4A023N7 Measurement of Cardiac Sampling and Pressure, Left Heart, Percutaneous Approach (ICD-10-PCS; principal; 2018-07-27)
PROC: B201YZZ Plain Radiography of Multiple Coronary Arteries using Other Contrast (ICD-10-PCS; 2018-07-27)
PROC: B205YZZ Plain Radiography of Left Heart using Other Contrast (ICD-10-PCS; 2018-07-27)
DX: I25.110 Atherosclerotic heart disease of native coronary artery with unstable angina pectoris (principal); E11.9 Type 2 diabetes mellitus without complications; I10 Essential (primary) hypertension; E78.5 Hyperlipidemia, unspecified; Z86.73 Personal history of transient ischemic attack (TIA), and cerebral infarction without residual deficits; E66.9 Obesity, unspecified; Z68.37 Body mass index [BMI] 37.0-37.9, adult
CPT/HCPCS: 36222; 36415; 80048; 85025; 85610; 85730; 93454; C1893; J0583; J2250; J3010; J7030

== ENCOUNTER 2019-05-08 14:04 | Inpatient (IN) | payer OTHER ==
--- OUTSIDE RECORDS SUMMARY | 2019-05-08 14:11 | XMS REPORT ---
:1940 Author Organization [facility] Address [address] [place] [address] Care Team Providers Name Role Phone SATYASABAS SPARROWLOW Unavailable Unavailable ABDON VENTURA Unavailable Unavailable Problems This patient has no known problems. Allergies, Adverse Reactions, Alerts This patient has no known allergies or adverse reactions. Medications This patient has no known medications. Results Test Description Test Time Test Comments Text Results Atomic Results Result Comments POCT-GLUCOSE METER 2018-08-17 12:30:00 Test Item Value Reference Range Comments POC-GLUCOSE METER (BEAKER) (test 164 mg/dL 70-110 TESTED AT [address] ylqe=7064) [facility] [address] POCT-GLUCOSE [id number] 12:29:00 Test Item Value Reference Range Comments POC-GLUCOSE METER (BEAKER) 83 mg/dL 70-110 TESTED AT [address] (test irqk=0099) [facility] [address] POCT-GLUCOSE [id number] 22:17:00 Test Item Value Reference Range Comments POC-GLUCOSE METER (BEAKER) 116 mg/dL 70-110 TESTED AT [address] (test cwvd=8683) [facility] [address] POCT-GLUCOSE [id number] 17:38:00 Test Item Value Reference Range Comments POC-GLUCOSE METER (BEAKER) 168 mg/dL 70-110 TESTED AT [address] (test jbal=5854) [facility] [address] POCT-GLUCOSE [id number] 12:41:00 Test Item Value Reference Range Comments POC-GLUCOSE METER (BEAKER) 243 mg/dL 70-110 TESTED AT [address] (test ntrw=7528) [facility] [address] POCT-GLUCOSE [id number] 09:34:00 Test Item Value Reference Range Comments POC-GLUCOSE METER (BEAKER) 193 mg/dL 70-110 TESTED AT [address] (test slxp=8339) [facility] [address] POCT-GLUCOSE [id number] 21:52:00 Test Item Value Reference Range Comments POC-GLUCOSE METER (BEAKER) 222 mg/dL 70-110 TESTED AT [address] (test jrqa=1529) [facility] [address] POCT-GLUCOSE [id number] 18:59:00 Test Item Value Reference Range Comments POC-GLUCOSE METER (BEAKER) 181 mg/dL 70-110 TESTED AT [address] (test ezyq=1413) [facility] [address] POCT-GLUCOSE [id number] 14:21:00 Test Item Value Reference Range Comments POC-GLUCOSE METER (BEAKER) 179 mg/dL 70-110 TESTED AT [address] (test hpjb=1605) [place] [id number] POCT-GLUCOSE [id number] 09:40:00 Test Item Value Reference Range Comments POC-GLUCOSE METER (BEAKER) 211 mg/dL 70-110 TESTED AT [address] (test cdie=7361) [facility] [address] BASIC METABOLIC [id number] 06:49:00 Test Item Value Reference Range Comments SODIUM (BEAKER) (test 132 meq/L 136-145 yssc=001) POTASSIUM (BEAKER) (test 4.1 meq/L 3.5-5.1 qveb=348) CHLORIDE (BEAKER) (test 98 meq/L 98-107 dcya=097) CO2 (BEAKER) (test 28 meq/L 22-29 giyj=541) BLOOD UREA NITROGEN 28 mg/dL 7-21 (BEAKER) (test azbm=634) CREATININE (BEAKER) (test 0.72 mg/dL 0.57-1.25 ioxa=888) GLUCOSE RANDOM (BEAKER) 242 mg/dL 70-105 (test jtoi=748) CALCIUM (BEAKER) (test 9.0 mg/dL 8.4-10.2 akjy=523) EGFR (BEAKER) (test 79 mL/min/1.73 sq m ESTIMATED GFR IS NOT xaro=9842) ACCURATE CREATININE CLEARANCE IN PREDICTING GLOMERULAR FILTRATION RATE. ESTIMATED GFR IS NOT APPLICABLE FOR DIALYSIS PATIENTS. CBC W/PLT COUNT & AUTO [id number] 06:45:00 Test Item Value Reference Range Comments WHITE BLOOD CELL COUNT (BEAKER) (test pwjk=284) 7.7 K/ L 3.5-10.5 RED BLOOD CELL COUNT (BEAKER) (test vtcd=047) 2.69 M/ L 3.93-5.22 HEMOGLOBIN (BEAKER) (test eojg=887) 9.8 GM/DL 11.2-15.7 HEMATOCRIT (BEAKER) (test gtpc=170) 29.6 % 34.1-44.9 MEAN CORPUSCULAR VOLUME (BEAKER) (test coch=358) 110.0 fL 79.4-94.8 MEAN CORPUSCULAR HEMOGLOBIN (BEAKER) (test 36.4 pg 25.6-32.2 tkpr=226) MEAN CORPUSCULAR HEMOGLOBIN CONC (BEAKER) (test 33.1 GM/DL 32.2-35.5 ejkb=489) RED CELL DISTRIBUTION WIDTH (BEAKER) (test 18.2 % 11.7-14.4 yalm=936) PLATELET COUNT (BEAKER) (test dhbu=480) 332 K/CU MM 150-450 MEAN PLATELET VOLUME (BEAKER) (test xhas=105) 10.3 fL 9.4-12.3 NUCLEATED RED BLOOD CELLS (BEAKER) (test 1 /100 WBC 0-0 rwiv=894) NEUTROPHILS RELATIVE PERCENT (BEAKER) (test 65 % epou=518) LYMPHOCYTES RELATIVE PERCENT (BEAKER) (test 19 % vrag=708) MONOCYTES RELATIVE PERCENT (BEAKER) (test 14 % slwo=510) EOSINOPHILS RELATIVE PERCENT (BEAKER) (test 1 % gffb=065) BASOPHILS RELATIVE PERCENT (BEAKER) (test 0 % iayc=354) NEUTROPHILS ABSOLUTE COUNT (BEAKER) (test 5.02 K/ L 1.56-6.13 joyz=176) LYMPHOCYTES ABSOLUTE COUNT (BEAKER) (test 1.42 K/ L 1.18-3.74 omgs=081) MONOCYTES ABSOLUTE COUNT (BEAKER) (test 1.06 K/ L 0.24-0.36 womh=796) EOSINOPHILS ABSOLUTE COUNT (BEAKER) (test 0.11 K/ L 0.04-0.36 nalg=641) BASOPHILS ABSOLUTE COUNT (BEAKER) (test 0.03 K/ L 0.01-0.08 xkhv=059) IMMATURE GRANULOCYTES-RELATIVE PERCENT (BEAKER) 1 % 0-1 (test nzgz=7304) URINALYSIS W/ [id number] 04:40:00 Test Item Value Reference Range Comments COLOR (BEAKER) (test gmzq=668) Yellow CLARITY (BEAKER) (test oued=116) Hazy SPECIFIC GRAVITY UA (BEAKER) (test xbuk=917) 1.014 1.001-1.035 PH UA (BEAKER) (test nxbn=849) 6.5 5.0-8.0 PROTEIN UA (BEAKER) (test qszc=934) 10 mg/dL Negative GLUCOSE UA (BEAKER) (test ixvm=836) >1000 mg/dL Negative KETONES UA (BEAKER) (test zvlm=660) Negative Negative BILIRUBIN UA (BEAKER) (test qkef=390) Negative Negative BLOOD UA (BEAKER) (test dcjl=491) Negative Negative NITRITE UA (BEAKER) (test smsh=701) Negative Negative LEUKOCYTE ESTERASE UA (BEAKER) (test wmfx=102) Large Negative UROBILINOGEN UA (BEAKER) (test xffx=315) 0.2 mg/dL 0.2-1.0 RBC UA (BEAKER) (test nabf=115) 1 /HPF WBC UA (BEAKER) (test ipnz=610) 93 /HPF BACTERIA (BEAKER) (test llxs=981) Many SQUAMOUS EPITHELIAL (BEAKER) (test tirc=527) 1 /HPF SOURCE(BEAKER) (test fjeb=3784) POCT-GLUCOSE [id number] 20:47:00 Test Item Value Reference Range Comments POC-GLUCOSE METER (BEAKER) 273 mg/dL 70-110 TESTED AT [place] [address] [address] (test hnen=4408) [facility] [address] POCT-GLUCOSE [id number] 18:20:00 Test Item Value Reference Range Comments POC-GLUCOSE METER (BEAKER) 305 mg/dL 70-110 Notified LEILA SMITH/TESTED AT [facility] (test mhap=9684) [facility] [address] [facility] [address] POCT-GLUCOSE [id number] 14:27:00 Test Item Value Reference Range Comments POC-GLUCOSE METER (BEAKER) 215 mg/dL 70-110 TESTED AT [address] (test hjnl=7248) [facility] [address] POCT-GLUCOSE [id number] 12:10:00 Test Item Value Reference Range Comments POC-GLUCOSE METER (BEAKER) 278 mg/dL 70-110 TESTED AT [address] (test pxpd=9469) [facility] [address] POCT-GLUCOSE [id number] 08:12:00 Test Item Value Reference Range Comments POC-GLUCOSE METER (BEAKER) 225 mg/dL 70-110 TESTED AT [address] (test cwwa=5771) [facility] [address] POCT-GLUCOSE [id number] 21:36:00 Test Item Value Reference Range Comments POC-GLUCOSE METER (BEAKER) 272 mg/dL 70-110 TESTED AT [address] (test kclk=9364) [place] [id number] POCT-GLUCOSE [id number] 18:06:00 Test Item Value Reference Range Comments POC-GLUCOSE METER (BEAKER) 264 mg/dL 70-110 TESTED AT [address] (test habc=2186) [facility] [address] POCT-GLUCOSE [id number] 13:33:00 Test Item Value Reference Range Comments POC-GLUCOSE METER (BEAKER) 225 mg/dL 70-110 TESTED AT [address] (test ifct=2532) [facility] [address] POCT-GLUCOSE [id number] 08:16:00 Test Item Value Reference Range Comments POC-GLUCOSE METER (BEAKER) 217 mg/dL 70-110 TESTED AT [address] (test gypg=8611) [place] [address] [id number] 07:48:00 Test Item Value Reference Range Comments MAGNESIUM (BEAKER) (test umdj=872) 1.6 mg/dL 1.6-2.6 BASIC METABOLIC [id number] 07:48:00 Test Item Value Reference Range Comments SODIUM (BEAKER) (test 132 meq/L 136-145 iocc=325) POTASSIUM (BEAKER) (test 3.7 meq/L 3.5-5.1 jxxf=814) CHLORIDE (BEAKER) (test 94 meq/L 98-107 urei=457) CO2 (BEAKER) (test 29 meq/L 22-29 opqu=475) BLOOD UREA NITROGEN 20 mg/dL 7-21 (BEAKER) (test ibxq=556) CREATININE (BEAKER) (test 0.82 mg/dL 0.57-1.25 sbid=821) GLUCOSE RANDOM (BEAKER) 181 mg/dL 70-105 (test ltdm=110) CALCIUM (BEAKER) (test 9.4 mg/dL 8.4-10.2 oxve=649) EGFR (BEAKER) (test 68 mL/min/1.73 sq m ESTIMATED GFR IS NOT wicu=8362) ACCURATE CREATININE CLEARANCE IN PREDICTING GLOMERULAR FILTRATION RATE. ESTIMATED GFR IS NOT APPLICABLE FOR DIALYSIS PATIENTS. CBC W/PLT COUNT & AUTO [id number] 07:18:00 Test Item Value Reference Range Comments WHITE BLOOD CELL COUNT (BEAKER) (test evik=287) 7.5 K/ L 3.5-10.5 RED BLOOD CELL COUNT (BEAKER) (test erlp=885) 3.14 M/ L 3.93-5.22 HEMOGLOBIN (BEAKER) (test zrxh=350) 11.3 GM/DL 11.2-15.7 HEMATOCRIT (BEAKER) (test dmjw=656) 33.7 % 34.1-44.9 MEAN CORPUSCULAR VOLUME (BEAKER) (test xure=576) 107.3 fL 79.4-94.8 MEAN CORPUSCULAR HEMOGLOBIN (BEAKER) (test 36.0 pg 25.6-32.2 lvno=000) MEAN CORPUSCULAR HEMOGLOBIN CONC (BEAKER) (test 33.5 GM/DL 32.2-35.5 movv=376) RED CELL DISTRIBUTION WIDTH (BEAKER) (test 18.3 % 11.7-14.4 hoxc=926) PLATELET COUNT (BEAKER) (test ucmq=419) 307 K/CU MM 150-450 MEAN PLATELET VOLUME (BEAKER) (test vzdu=551) 10.7 fL 9.4-12.3 NUCLEATED RED BLOOD CELLS (BEAKER) (test 1 /100 WBC 0-0 wszd=460) NEUTROPHILS RELATIVE PERCENT (BEAKER) (test 65 % ksnf=155) LYMPHOCYTES RELATIVE PERCENT (BEAKER) (test 15 % pqsv=593) MONOCYTES RELATIVE PERCENT (BEAKER) (test 16 % uzgq=307) EOSINOPHILS RELATIVE PERCENT (BEAKER) (test 2 % omhx=799) BASOPHILS RELATIVE PERCENT (BEAKER) (test 0 % kjdu=777) NEUTROPHILS ABSOLUTE COUNT (BEAKER) (test 4.92 K/ L 1.56-6.13 opro=352) LYMPHOCYTES ABSOLUTE COUNT (BEAKER) (test 1.12 K/ L 1.18-3.74 kbnm=737) MONOCYTES ABSOLUTE COUNT (BEAKER) (test 1.20 K/ L 0.24-0.36 igbm=919) EOSINOPHILS ABSOLUTE COUNT (BEAKER) (test 0.17 K/ L 0.04-0.36 vkjs=244) BASOPHILS ABSOLUTE COUNT (BEAKER) (test 0.03 K/ L 0.01-0.08 rhup=453) IMMATURE GRANULOCYTES-RELATIVE PERCENT (BEAKER) 1 % 0-1 (test lafb=1054) POCT-GLUCOSE [id number] 23:19:00 Test Item Value Reference Range Comments POC-GLUCOSE METER (BEAKER) 214 mg/dL 70-110 TESTED AT [address] (test rshv=3743) [place] [address] POCT-GLUCOSE [id number] 16:37:00 Test Item Value Reference Range Comments POC-GLUCOSE METER (BEAKER) 192 mg/dL 70-110 TESTED AT [address] (test bojq=5785) [place] [address] POCT-GLUCOSE [id number] 12:47:00 Test Item Value Reference Range Comments POC-GLUCOSE METER (BEAKER) 233 mg/dL 70-110 TESTED AT [address] (test ucuw=6322) [place] [address] BASIC METABOLIC [id number] 11:26:00 Test Item Value Reference Range Comments SODIUM (BEAKER) (test 132 meq/L 136-145 xbex=115) POTASSIUM (BEAKER) (test 3.7 meq/L 3.5-5.1 fnsg=392) CHLORIDE (BEAKER) (test 94 meq/L 98-107 uspd=960) CO2 (BEAKER) (test 28 meq/L 22-29 hzgp=917) BLOOD UREA NITROGEN 11 mg/dL 7-21 (BEAKER) (test jrqq=057) CREATININE (BEAKER) (test 0.68 mg/dL 0.57-1.25 snik=783) GLUCOSE RANDOM (BEAKER) 231 mg/dL 70-105 (test qalv=406) CALCIUM (BEAKER) (test 9.4 mg/dL 8.4-10.2 gtua=755) EGFR (BEAKER) (test 84 mL/min/1.73 sq m ESTIMATED GFR IS NOT yjra=8372) ACCURATE CREATININE CLEARANCE IN PREDICTING GLOMERULAR FILTRATION RATE. ESTIMATED GFR IS NOT APPLICABLE FOR DIALYSIS PATIENTS. [id number] 11:26:00 Test Item Value Reference Range Comments MAGNESIUM (BEAKER) (test hcgs=786) 1.2 mg/dL 1.6-2.6 CBC W/PLT COUNT & AUTO [id number] 11:17:00 Test Item Value Reference Range Comments WHITE BLOOD CELL COUNT (BEAKER) (test neno=938) 9.7 K/ L 3.5-10.5 RED BLOOD CELL COUNT (BEAKER) (test jzgl=122) 3.22 M/ L 3.93-5.22 HEMOGLOBIN (BEAKER) (test oiuz=946) 11.7 GM/DL 11.2-15.7 HEMATOCRIT (BEAKER) (test lstk=829) 34.2 % 34.1-44.9 MEAN CORPUSCULAR VOLUME (BEAKER) (test udan=813) 106.2 fL 79.4-94.8 MEAN CORPUSCULAR HEMOGLOBIN (BEAKER) (test 36.3 pg 25.6-32.2 ddlx=167) MEAN CORPUSCULAR HEMOGLOBIN CONC (BEAKER) (test 34.2 GM/DL 32.2-35.5 hxuo=415) RED CELL DISTRIBUTION WIDTH (BEAKER) (test 18.1 % 11.7-14.4 hvdj=713) PLATELET COUNT (BEAKER) (test sgpg=081) 273 K/CU MM 150-450 MEAN PLATELET VOLUME (BEAKER) (test acvw=636) 10.5 fL 9.4-12.3 NUCLEATED RED BLOOD CELLS (BEAKER) (test 1 /100 WBC 0-0 pycx=119) (CELLAVISION MANUAL DIFF)2018-08-12 11:17:00 Test Item Value Reference Range Comments NEUTROPHILS - REL (CELLAVISION)(BEAKER) (test 80 % sztr=5717) LYMPHOCYTES - REL (CELLAVISION)(BEAKER) (test 8 % nawn=7366) MONOCYTES - REL (CELLAVISION)(BEAKER) (test 7 % roje=3631) EOSINOPHILS - REL (CELLAVISION)(BEAKER) (test 5 % apuj=0818) NEUTROPHILS - ABS (CELLAVISION)(BEAKER) (test 7.76 K/ul 1.56-6.13 sfyf=9396) LYMPHOCYTES - ABS (CELLAVISION)(BEAKER) (test 0.78 K/ul 1.18-3.74 lubs=0048) MONOCYTES - ABS (CELLAVISION)(BEAKER) (test 0.68 K/uL 0.24-0.36 kdai=9384) EOSINOPHILS - ABS (CELLAVISION)(BEAKER) (test 0.49 K/uL 0.04-0.36 gmab=0996) TOTAL COUNTED (BEAKER) (test qhii=1502) 100 WBC MORPHOLOGY (BEAKER) (test nkjy=144) Normal PLT MORPHOLOGY (BEAKER) (test ykim=141) Normal POLYCHROMATOPHILLIC RBCS(BEAKER) (test zfbs=751) 1+ few ANISOCYTOSIS (BEAKER) (test rqki=499) 2+ moderate MACROCYTES (BEAKER) (test fhfp=010) 2+ moderate AMES-JOLLY BODIES (BEAKER) (test zrhf=439) 1+ few ARTIFACT (CELLAVISION)(BEAKER) (test daqj=5294) Present PLATELET CONCENTRATION (CELLAVISION)(BEAKER) Adequate (test ugbe=6608) Received comment: User comments: Slide comments:POCT-GLUCOSE [id number] 07: 57:00 Test Item Value Reference Range Comments POC-GLUCOSE METER (BEAKER) 165 mg/dL 70-110 TESTED AT [address] (test rysg=8053) [place] [id number] POCT-GLUCOSE [id number] 22:08:00 Test Item Value Reference Range Comments POC-GLUCOSE METER (BEAKER) 161 mg/dL 70-110 TESTED AT [address] (test nyrb=8301) [place] [id number] POCT-GLUCOSE [id number] 18:10:00 Test Item Value Reference Range Comments POC-GLUCOSE METER (BEAKER) 141 mg/dL 70-110 TESTED AT [address] (test lpcm=4879) [place] [address] [id number] 14:55:00 Test Item Value Reference Range Comments MAGNESIUM (BEAKER) (test 1.2 mg/dL 1.6-2.6 Specimen slightly hemolyzed bnix=545) BASIC METABOLIC [id number] 14:55:00 Test Item Value Reference Range Comments SODIUM (BEAKER) (test 130 meq/L 136-145 qxat=620) POTASSIUM (BEAKER) (test 3.8 meq/L 3.5-5.1 Specimen slightly nwnb=034) hemolyzed CHLORIDE (BEAKER) (test 96 meq/L 98-107 egcv=511) CO2 (BEAKER) (test 26 meq/L 22-29 wptl=815) BLOOD UREA NITROGEN 13 mg/dL 7-21 (BEAKER) (test xotz=148) CREATININE (BEAKER) (test 0.60 mg/dL 0.57-1.25 Specimen slightly fyuf=540) hemolyzed GLUCOSE RANDOM (BEAKER) 159 mg/dL 70-105 (test aupx=259) CALCIUM (BEAKER) (test 9.2 mg/dL 8.4-10.2 xwvg=060) EGFR (BEAKER) (test 97 mL/min/1.73 sq m ESTIMATED GFR IS NOT nuid=7401) ACCURATE CREATININE CLEARANCE IN PREDICTING GLOMERULAR FILTRATION RATE. ESTIMATED GFR IS NOT APPLICABLE FOR DIALYSIS PATIENTS. POCT-GLUCOSE [id number] 12:01:00 Test Item Value Reference Range Comments POC-GLUCOSE METER (BEAKER) 163 mg/dL 70-110 TESTED AT [address] (test uqmu=2250) [facility] [address] CBC W/PLT COUNT & AUTO [id number] 11:57:00 Test Item Value Reference Range Comments WHITE BLOOD CELL COUNT (BEAKER) (test inzl=234) 9.4 K/ L 3.5-10.5 RED BLOOD CELL COUNT (BEAKER) (test jkvq=903) 2.87 M/ L 3.93-5.22 HEMOGLOBIN (BEAKER) (test eirb=851) 10.5 GM/DL 11.2-15.7 HEMATOCRIT (BEAKER) (test yoga=097) 30.2 % 34.1-44.9 MEAN CORPUSCULAR VOLUME (BEAKER) (test uebt=524) 105.2 fL 79.4-94.8 MEAN CORPUSCULAR HEMOGLOBIN (BEAKER) (test 36.6 pg 25.6-32.2 ekru=406) MEAN CORPUSCULAR HEMOGLOBIN CONC (BEAKER) (test 34.8 GM/DL 32.2-35.5 lmwm=697) RED CELL DISTRIBUTION WIDTH (BEAKER) (test 17.9 % 11.7-14.4 ekqr=032) PLATELET COUNT (BEAKER) (test xvlw=716) 245 K/CU MM 150-450 MEAN PLATELET VOLUME (BEAKER) (test gyty=007) 10.7 fL 9.4-12.3 NUCLEATED RED BLOOD CELLS (BEAKER) (test 0 /100 WBC 0-0 hlkw=029) NEUTROPHILS RELATIVE PERCENT (BEAKER) (test 72 % kyqh=247) LYMPHOCYTES RELATIVE PERCENT (BEAKER) (test 12 % fqzp=853) MONOCYTES RELATIVE PERCENT (BEAKER) (test 14 % gmdu=444) EOSINOPHILS RELATIVE PERCENT (BEAKER) (test 2 % hfno=803) BASOPHILS RELATIVE PERCENT (BEAKER) (test 1 % anvz=991) NEUTROPHILS ABSOLUTE COUNT (BEAKER) (test 6.77 K/ L 1.56-6.13 oicb=946) LYMPHOCYTES ABSOLUTE COUNT (BEAKER) (test 1.08 K/ L 1.18-3.74 rsua=570) MONOCYTES ABSOLUTE COUNT (BEAKER) (test 1.33 K/ L 0.24-0.36 bjpm=083) EOSINOPHILS ABSOLUTE COUNT (BEAKER) (test 0.15 K/ L 0.04-0.36 shoh=251) BASOPHILS ABSOLUTE COUNT (BEAKER) (test 0.05 K/ L 0.01-0.08 xhhu=894) IMMATURE GRANULOCYTES-RELATIVE PERCENT (BEAKER) 1 % 0-1 (test mpvc=2132) POCT-GLUCOSE [id number] 10:18:00 Test Item Value Reference Range Comments POC-GLUCOSE METER (BEAKER) 155 mg/dL 70-110 TESTED AT [address] (test rtpq=0752) [facility] [address] POCT-GLUCOSE [id number] 08:13:00 Test Item Value Reference Range Comments POC-GLUCOSE METER (BEAKER) 157 mg/dL 70-110 TESTED AT [address] (test ebkr=6365) [facility] [address] POCT-GLUCOSE [id number] 21:57:00 Test Item Value Reference Range Comments POC-GLUCOSE METER (BEAKER) 181 mg/dL 70-[address] [facility] [address] [facility] (test jncj=6132) [facility] [address] POCT-GLUCOSE [id number] 17:39:00 Test Item Value Reference Range Comments POC-GLUCOSE METER (BEAKER) 232 mg/dL 70-110 TESTED AT [address] (test xplc=1689) [place] [id number] POCT-GLUCOSE [id number] 12:55:00 Test Item Value Reference Range Comments POC-GLUCOSE METER (BEAKER) 207 mg/dL 70-110 TESTED AT [address] (test rndh=6899) [place] [id number] CBC W/PLT COUNT & AUTO [id number] 12:50:00 Test Item Value Reference Range Comments WHITE BLOOD CELL COUNT (BEAKER) (test hwdv=127) 11.8 K/ L 3.5-10.5 RED BLOOD CELL COUNT (BEAKER) (test mlhq=848) 2.74 M/ L 3.93-5.22 HEMOGLOBIN (BEAKER) (test xaxv=584) 10.3 GM/DL 11.2-15.7 HEMATOCRIT (BEAKER) (test rtns=972) 28.6 % 34.1-44.9 MEAN CORPUSCULAR VOLUME (BEAKER) (test wgff=587) 104.4 fL 79.4-94.8 MEAN CORPUSCULAR HEMOGLOBIN (BEAKER) (test 37.6 pg 25.6-32.2 lxhc=853) MEAN CORPUSCULAR HEMOGLOBIN CONC (BEAKER) (test 36.0 GM/DL 32.2-35.5 ygti=620) RED CELL DISTRIBUTION WIDTH (BEAKER) (test 18.5 % 11.7-14.4 rwha=673) PLATELET COUNT (BEAKER) (test vktu=392) 198 K/CU MM 150-450 MEAN PLATELET VOLUME (BEAKER) (test emuj=869) 10.4 fL 9.4-12.3 NUCLEATED RED BLOOD CELLS (BEAKER) (test 0 /100 WBC 0-0 pyls=195) (CELLAVISION MANUAL DIFF)2018-08-10 12:50:00 Test Item Value Reference Range Comments NEUTROPHILS - REL (CELLAVISION)(BEAKER) (test 79 % yfld=5143) LYMPHOCYTES - REL (CELLAVISION)(BEAKER) (test 7 % baln=2513) MONOCYTES - REL (CELLAVISION)(BEAKER) (test 12 % jojs=8474) EOSINOPHILS - REL (CELLAVISION)(BEAKER) (test 2 % kzbj=0862) NEUTROPHILS - ABS (CELLAVISION)(BEAKER) (test 9.32 K/ul 1.56-6.13 qklx=9481) LYMPHOCYTES - ABS (CELLAVISION)(BEAKER) (test 0.83 K/ul 1.18-3.74 zxlg=4005) MONOCYTES - ABS (CELLAVISION)(BEAKER) (test 1.42 K/uL 0.24-0.36 mwks=7170) EOSINOPHILS - ABS (CELLAVISION)(BEAKER) (test 0.24 K/uL 0.04-0.36 fbzd=8212) TOTAL COUNTED (BEAKER) (test gxcd=1648) 100 WBC MORPHOLOGY (BEAKER) (test rbtt=002) Normal PLT MORPHOLOGY (BEAKER) (test ldcq=877) Normal ANISOCYTOSIS (BEAKER) (test clec=455) 2+ moderate MACROCYTES (BEAKER) (test yeok=718) 1+ few BASOPHILIC STIPPLING (BEAKER) (test fwuu=753) Present ARTIFACT (CELLAVISION)(BEAKER) (test rhqi=1164) Present PLATELET CONCENTRATION (CELLAVISION)(BEAKER) Adequate (test eske=9178) Received comment: User comments: Slide comments:POCT-GLUCOSE [id number] 08: 56:00 Test Item Value Reference Range Comments POC-GLUCOSE METER (BEAKER) 194 mg/dL 70-[address] [facility] [address] [facility] (test hkxh=3049) [facility] [address] [id number] 06:11:00 Test Item Value Reference Range Comments MAGNESIUM (BEAKER) (test vhdb=856) 1.4 mg/dL 1.6-2.6 BASIC METABOLIC [id number] 06:11:00 Test Item Value Reference Range Comments SODIUM (BEAKER) (test 130 meq/L 136-145 caks=310) POTASSIUM (BEAKER) (test 4.1 meq/L 3.5-5.1 negm=904) CHLORIDE (BEAKER) (test 98 meq/L 98-107 kgak=266) CO2 (BEAKER) (test 24 meq/L 22-29 pcoe=565) BLOOD UREA NITROGEN 19 mg/dL 7-21 (BEAKER) (test wwjj=746) CREATININE (BEAKER) (test 0.64 mg/dL 0.57-1.25 rhpw=247) GLUCOSE RANDOM (BEAKER) 189 mg/dL 70-105 (test tenv=921) CALCIUM (BEAKER) (test 9.5 mg/dL 8.4-10.2 zsum=856) EGFR (BEAKER) (test 90 mL/min/1.73 sq m ESTIMATED GFR IS NOT tzyv=8737) ACCURATE CREATININE CLEARANCE IN PREDICTING GLOMERULAR FILTRATION RATE. ESTIMATED GFR IS NOT APPLICABLE FOR DIALYSIS PATIENTS. POCT-GLUCOSE [id number] 21:53:00 Test Item Value Reference Range Comments POC-GLUCOSE METER (BEAKER) 225 mg/dL 70-110 TESTED AT [address] (test bgia=2224) [place] [address] POCT-GLUCOSE [id number] 19:30:00 Test Item Value Reference Range Comments POC-GLUCOSE METER (BEAKER) 225 mg/dL 70-110 TESTED AT [address] (test nxpf=0887) [place] [address] POCT-GLUCOSE [id number] 15:02:00 Test Item Value Reference Range Comments POC-GLUCOSE METER (BEAKER) 179 mg/dL 70-110 TESTED AT [address] (test efhx=3702) [place] [address] [id number] 13:04:00 Test Item Value Reference Range Comments MAGNESIUM (BEAKER) (test 1.5 mg/dL 1.6-2.6 Specimen slightly hemolyzed xxsw=288) Check Serum Magnesium level 2 hours after IV magnesium replacement.Every 8 hours PRN for Creatinine greater than or equal to 2 mg/dL.[id number] 13 :04:00 Test Item Value Reference Range Comments POTASSIUM (BEAKER) (test 4.2 meq/L 3.5-5.1 Specimen slightly hemolyzed ofgh=122) Check Serum Magnesium level 2 hours after IV magnesium replacement.Every 8 hours PRN for Creatinine greater than or equal to 2 mg/dL.POCT-GLUCOSE [id number] 08:24:00 Test Item Value Reference Range Comments POC-GLUCOSE METER (BEAKER) 189 mg/dL 70-[address] [facility] [address] [facility] (test lnhs=3393) [facility] [address] CBC W/PLT COUNT & AUTO [id number] 08:03:00 Test Item Value Reference Range Comments WHITE BLOOD CELL COUNT (BEAKER) (test ndah=454) 15.0 K/ L 3.5-10.5 RED BLOOD CELL COUNT (BEAKER) (test pelj=329) 2.64 M/ L 3.93-5.22 HEMOGLOBIN (BEAKER) (test jdpt=343) 10.0 GM/DL 11.2-15.7 HEMATOCRIT (BEAKER) (test rplb=691) 28.4 % 34.1-44.9 MEAN CORPUSCULAR VOLUME (BEAKER) (test mdeo=471) 107.6 fL 79.4-94.8 MEAN CORPUSCULAR HEMOGLOBIN (BEAKER) (test 37.9 pg 25.6-32.2 opvd=496) MEAN CORPUSCULAR HEMOGLOBIN CONC (BEAKER) (test 35.2 GM/DL 32.2-35.5 nsqu=711) RED CELL DISTRIBUTION WIDTH (BEAKER) (test 19.9 % 11.7-14.4 ykko=759) PLATELET COUNT (BEAKER) (test nbsz=462) 163 K/CU MM 150-450 MEAN PLATELET VOLUME (BEAKER) (test uryy=894) 10.5 fL 9.4-12.3 NUCLEATED RED BLOOD CELLS (BEAKER) (test 0 /100 WBC 0-0 bqpe=758) (CELLAVISION MANUAL DIFF)2018-08-09 08:03:00 Test Item Value Reference Range Comments NEUTROPHILS - REL (CELLAVISION)(BEAKER) (test 90 % vqzf=3497) LYMPHOCYTES - REL (CELLAVISION)(BEAKER) (test 4 % sckb=7920) MONOCYTES - REL (CELLAVISION)(BEAKER) (test 5 % dgvm=0931) NEUTROPHILS - ABS (CELLAVISION)(BEAKER) (test 13.50 K/ul 1.56-6.13 nvqb=9433) LYMPHOCYTES - ABS (CELLAVISION)(BEAKER) (test 0.60 K/ul 1.18-3.74 ktxw=1173) MONOCYTES - ABS (CELLAVISION)(BEAKER) (test 0.75 K/uL 0.24-0.36 lkzb=6325) TOTAL COUNTED (BEAKER) (test vlov=2684) 100 SMUDGE CELLS (BEAKER) (test gbgj=0498) Present GIANT PLATELETS (BEAKER) (test ayhb=573) Present HYPERSEGMENTATION (CELLAVISION)(BEAKER) (test Present ofai=0519) ANISOCYTOSIS (BEAKER) (test vfgp=575) 1+ few MACROCYTES (BEAKER) (test finz=388) 1+ few BASOPHILIC STIPPLING (BEAKER) (test qfdm=633) Present PLATELET CONCENTRATION (CELLAVISION)(BEAKER) Adequate (test iuri=2463) Received comment: User comments: Slide comments:CALCIUM, [id number] 05:17 :00 Test Item Value Reference Range Comments CALCIUM IONIZED (BEAKER) (test iyhx=557) 1.26 mmol/L 1.12-1.27 PH, BLOOD (BEAKER) (test kgei=0031) 7.42 [id number] 05:09:00 Test Item Value Reference Range Comments PHOSPHORUS (BEAKER) (test wlqw=794) 2.0 mg/dL 2.3-4.7 [id number] 05:09:00 Test Item Value Reference Range Comments MAGNESIUM (BEAKER) (test cylb=545) 1.6 mg/dL 1.6-2.6 BASIC METABOLIC [id number] 05:09:00 Test Item Value Reference Range Comments SODIUM (BEAKER) (test 131 meq/L 136-145 rujx=269) POTASSIUM (BEAKER) (test 4.0 meq/L 3.5-5.1 rtqo=189) CHLORIDE (BEAKER) (test 100 meq/L 98-107 txwx=397) CO2 (BEAKER) (test 22 meq/L 22-29 qylh=501) BLOOD UREA NITROGEN 28 mg/dL 7-21 (BEAKER) (test zfva=510) CREATININE (BEAKER) (test 0.71 mg/dL 0.57-1.25 ymns=736) GLUCOSE RANDOM (BEAKER) 198 mg/dL 70-105 (test gdvb=085) CALCIUM (BEAKER) (test 9.4 mg/dL 8.4-10.2 nrsf=693) EGFR (BEAKER) (test 80 mL/min/1.73 sq m ESTIMATED GFR IS NOT doqq=3052) ACCURATE CREATININE CLEARANCE IN PREDICTING GLOMERULAR FILTRATION RATE. ESTIMATED GFR IS NOT APPLICABLE FOR DIALYSIS PATIENTS. POCT-GLUCOSE [id number] 23:39:00 Test Item Value Reference Range Comments POC-GLUCOSE METER (BEAKER) 200 mg/dL 70-[address] [facility] [address] [facility] (test edgx=6028) [facility] [address] [id number] 22:42:00 Test Item Value Reference Range Comments MAGNESIUM (BEAKER) (test rkzh=749) 1.5 mg/dL 1.6-2.6 POTASSIUM-STAT [id number] 22:24:00 Test Item Value Reference Range Comments POTASSIUM (BEAKER) (test vhbr=325) 3.7 meq/L 3.6-5.5 BLOOD GAS, [id number] 22:24:00 Test Item Value Reference Range Comments PH ARTERIAL (BEAKER) (test elks=858) 7.45 7.35-7.45 PCO2 ARTERIAL (BEAKER) (test rngm=386) 36 mmHg 35-45 PO2 ARTERIAL (BEAKER) (test ffed=722) 94 mmHg 80-90 O2 SATURATION ARTERIAL (BEAKER) (test nwua=754) 97.6 % 96.0-97.0 HCO3 ARTERIAL (BEAKER) (test mdtj=473) 24 mmol/L 21-29 BASE EXCESS ARTERIAL (BEAKER) (test daun=968) 0.3 mmol/L -2.0-3.0 PATIENT TEMPERATURE (BEAKER) (test dpmc=8221) 36.5 C FIO2 (BEAKER) (test seta=3169) 28.0 % CALCIUM, [id number] 22:23:00 Test Item Value Reference Range Comments CALCIUM IONIZED (BEAKER) (test ihxj=030) 1.21 mmol/L 1.12-1.27 PH, BLOOD (BEAKER) (test qvto=0349) 7.44 POCT-GLUCOSE [id number] 17:12:00 Test Item Value Reference Range Comments POC-GLUCOSE METER (BEAKER) 199 mg/dL 70-[address] [facility] [address] [facility] (test xiem=5328) [facility] [address] POCT-GLUCOSE [id number] 12:12:00 Test Item Value Reference Range Comments POC-GLUCOSE METER (BEAKER) 184 mg/dL 70-110 TESTED AT [address] (test ajmi=8166) [facility] [address] POCT-GLUCOSE [id number] 08:49:00 Test Item Value Reference Range Comments POC-GLUCOSE METER (BEAKER) 195 mg/dL 70-110 TESTED AT [address] (test pbsx=2174) [facility] [address] RAD, CHEST, 1 VIEW, NON [id number] 08:36:00Reason for exam:->s/p CV surgeryShould this be performed at the bedside?->YesFINAL REPORT RAD, CHEST, 1 VIEW, NON DEPT INDICATION: s/p CV surgery COMPARISON: Prior day's exam FINDINGS: Portable frontal view of the chest. IMPRESSION: Support Lines: Left-sided central catheter tip overlies the left brachiocephalic. Right PICC is still are visualized (either secondary to motion artifact or due to interval removal). Left basilar chest tube has been removed in the interim.Lungs and pleura: Left retrocardiac opacities increased in the interim, presumably representing increased atelectasis. Background interstitial edema is unchanged. No pneumothorax.Heartand mediastinum: Stable contours. Stable surgical changes.Additional findings: None. Signed: Cristo Posadas MDReport Verified Date/Time: 08/08/2018 08:36:43 Reading Location: [address] Neuro Reading Room CBC W/PLT COUNT & AUTO [id number] 05:32 :00 Test Item Value Reference Range Comments WHITE BLOOD CELL COUNT (BEAKER) (test disq=763) 14.8 K/ L 3.5-10.5 RED BLOOD CELL COUNT (BEAKER) (test amvu=344) 2.43 M/ L 3.93-5.22 HEMOGLOBIN (BEAKER) (test wugg=060) 8.7 GM/DL 11.2-15.7 HEMATOCRIT (BEAKER) (test lvvi=649) 26.6 % 34.1-44.9 MEAN CORPUSCULAR VOLUME (BEAKER) (test cfzr=475) 109.5 fL 79.4-94.8 MEAN CORPUSCULAR HEMOGLOBIN (BEAKER) (test 35.8 pg 25.6-32.2 iqjt=683) MEAN CORPUSCULAR HEMOGLOBIN CONC (BEAKER) (test 32.7 GM/DL 32.2-35.5 ovyc=955) RED CELL DISTRIBUTION WIDTH (BEAKER) (test 21.3 % 11.7-14.4 vtfo=861) PLATELET COUNT (BEAKER) (test nmhw=460) 125 K/CU MM 150-450 MEAN PLATELET VOLUME (BEAKER) (test qgqj=263) 11.0 fL 9.4-12.3 NUCLEATED RED BLOOD CELLS (BEAKER) (test 0 /100 WBC 0-0 owxk=862) NEUTROPHILS RELATIVE PERCENT (BEAKER) (test 84 % igcq=710) LYMPHOCYTES RELATIVE PERCENT (BEAKER) (test 4 % luoy=480) MONOCYTES RELATIVE PERCENT (BEAKER) (test 10 % rdrd=207) EOSINOPHILS RELATIVE PERCENT (BEAKER) (test 0 % nien=223) BASOPHILS RELATIVE PERCENT (BEAKER) (test 0 % xcda=178) NEUTROPHILS ABSOLUTE COUNT (BEAKER) (test 12.45 K/ L 1.56-6.13 hhej=262) LYMPHOCYTES ABSOLUTE COUNT (BEAKER) (test 0.62 K/ L 1.18-3.74 slng=630) MONOCYTES ABSOLUTE COUNT (BEAKER) (test 1.50 K/ L 0.24-0.36 gzja=611) EOSINOPHILS ABSOLUTE COUNT (BEAKER) (test 0.05 K/ L 0.04-0.36 lyzt=838) BASOPHILS ABSOLUTE COUNT (BEAKER) (test 0.03 K/ L 0.01-0.08 bvbb=810) IMMATURE GRANULOCYTES-RELATIVE PERCENT (BEAKER) 1 % 0-1 (test wukn=2371) [id number] 05:14:00 Test Item Value Reference Range Comments MAGNESIUM (BEAKER) (test ljam=502) 2.1 mg/dL 1.6-2.6 BASIC METABOLIC [id number] 05:14:00 Test Item Value Reference Range Comments SODIUM (BEAKER) (test 136 meq/L 136-145 mflv=360) POTASSIUM (BEAKER) (test 4.0 meq/L 3.5-5.1 kcnt=928) CHLORIDE (BEAKER) (test 105 meq/L 98-107 ysoo=209) CO2 (BEAKER) (test 22 meq/L 22-29 ctlw=440) BLOOD UREA NITROGEN 29 mg/dL 7-21 (BEAKER) (test amto=404) CREATININE (BEAKER) (test 0.71 mg/dL 0.57-1.25 kbxu=633) GLUCOSE RANDOM (BEAKER) 185 mg/dL 70-105 (test hkfl=550) CALCIUM (BEAKER) (test 9.0 mg/dL 8.4-10.2 dbfb=343) EGFR (BEAKER) (test 80 mL/min/1.73 sq m ESTIMATED GFR IS NOT tmns=4926) ACCURATE CREATININE CLEARANCE IN PREDICTING GLOMERULAR FILTRATION RATE. ESTIMATED GFR IS NOT APPLICABLE FOR DIALYSIS PATIENTS. CALCIUM, [id number] 05:07:00 Test Item Value Reference Range Comments CALCIUM IONIZED (BEAKER) (test spso=923) 1.21 mmol/L 1.12-1.27 PH, BLOOD (BEAKER) (test gvkh=0641) 7.42 BLOOD GAS, [id number] 05:06:00 Test Item Value Reference Range Comments PH ARTERIAL (BEAKER) (test tfsk=282) 7.42 7.35-7.45 PCO2 ARTERIAL (BEAKER) (test rqsl=397) 39 mmHg 35-45 PO2 ARTERIAL (BEAKER) (test hlvb=255) 98 mmHg 80-90 O2 SATURATION ARTERIAL (BEAKER) (test jsbm=869) 97.4 % 96.0-97.0 HCO3 ARTERIAL (BEAKER) (test dqrc=967) 25 mmol/L 21-29 BASE EXCESS ARTERIAL (BEAKER) (test irlu=073) 0.2 mmol/L -2.0-3.0 PATIENT TEMPERATURE (BEAKER) (test yvxx=2978) 37.5 C FIO2 (BEAKER) (test fphk=0832) 28.0 % LACTIC ACID, [id number] 05:01:00 Test Item Value Reference Range Comments LACTATE BLOOD ARTERIAL (2) (BEAKER) (test 1.0 mmol/L 0.5-2.2 qnws=7804) POCT-GLUCOSE [id number] 23:22:00 Test Item Value Reference Range Comments POC-GLUCOSE METER (BEAKER) 252 mg/dL 70-[address] [facility] [address] [facility] (test jrax=1068) [facility] [address] LACTIC ACID, [id number] 19:42:00 Test Item Value Reference Range Comments LACTATE BLOOD ARTERIAL (2) (BEAKER) (test 1.6 mmol/L 0.5-2.2 gtuq=2985) BLOOD GAS, [id number] 19:33:00 Test Item Value Reference Range Comments PH ARTERIAL (BEAKER) (test jfvk=076) 7.42 7.35-7.45 PCO2 ARTERIAL (BEAKER) (test czko=308) 33 mmHg 35-45 PO2 ARTERIAL (BEAKER) (test zukm=245) 106 mmHg 80-90 O2 SATURATION ARTERIAL (BEAKER) (test qxpl=185) 97.9 % 96.0-97.0 HCO3 ARTERIAL (BEAKER) (test zawh=689) 21 mmol/L 21-29 BASE EXCESS ARTERIAL (BEAKER) (test xnng=136) -2.7 mmol/L -2.0-3.0 PATIENT TEMPERATURE (BEAKER) (test yqux=9567) 37.2 C FIO2 (BEAKER) (test laro=8595) 36.0 % LACTIC ACID, [id number] 16:37:00 Test Item Value Reference Range Comments LACTATE BLOOD ARTERIAL (2) (BEAKER) (test 2.6 mmol/L 0.5-2.2 bybn=3338) BLOOD GAS, [id number] 16:21:00 Test Item Value Reference Range Comments PH ARTERIAL (BEAKER) (test vpdy=761) 7.36 7.35-7.45 PCO2 ARTERIAL (BEAKER) (test wzym=266) 34 mmHg 35-45 PO2 ARTERIAL (BEAKER) (test ocuo=575) 92 mmHg 80-90 O2 SATURATION ARTERIAL (BEAKER) (test kpbu=130) 96.7 % 96.0-97.0 HCO3 ARTERIAL (BEAKER) (test juhe=122) 19 mmol/L 21-29 BASE EXCESS ARTERIAL (BEAKER) (test aner=614) -6.0 mmol/L -2.0-3.0 PATIENT TEMPERATURE (BEAKER) (test qlex=6468) 37.4 C FIO2 (BEAKER) (test tpxh=0281) 36.0 % BLOOD GAS, [id number] 15:01:00 Test Item Value Reference Range Comments PH ARTERIAL (BEAKER) (test oeol=308) 7.38 7.35-7.45 PCO2 ARTERIAL (BEAKER) (test fkxs=509) 32 mmHg 35-45 PO2 ARTERIAL (BEAKER) (test gmfe=429) 84 mmHg 80-90 O2 SATURATION ARTERIAL (BEAKER) (test bexg=206) 96.1 % 96.0-97.0 HCO3 ARTERIAL (BEAKER) (test hwjc=806) 18 mmol/L 21-29 BASE EXCESS ARTERIAL (BEAKER) (test gqhc=466) -6.0 mmol/L -2.0-3.0 PATIENT TEMPERATURE (BEAKER) (test asfl=3487) 37.2 C FIO2 (BEAKER) (test ltjm=6913) 36.0 % OXYGEN SATURATION, [id number] 14:58:00 Test Item Value Reference Range Comments O2 SATURATION (MEASURED) (BEAKER) (test ttee=5995) 63.8 % LACTIC ACID, [id number] 08:57:00 Test Item Value Reference Range Comments LACTATE BLOOD ARTERIAL (2) (BEAKER) (test 0.9 mmol/L 0.5-2.2 zbqa=5799) RAD, CHEST, 1 VIEW, NON [id number] 06:53:00Reason for exam:->s/p CV surgeryShould this be performed at the bedside?->YesFINAL REPORT Chest, one view. HISTORY: s/p CV surgery COMPARISON: Radiographfrom 08/06/2018 IMPRESSION: Interval extubation. Unchanged positioning of a left IJ central venous catheter and left chest tube. There is slight lucency in the left base which could be a trace, likely related pneumothorax. No pleural effusion. Cardiac silhouette is unchanged. No acute bony abnormality. Pulmonary venous congestion. The left basilar atelectasis has slightly improved. Costophrenic clipsin the right upper quadrant. Prior median sternotomy. Signed: Freddy Sheldon MDReport Verified Date/Time: 08/07/2018 06:53: 26 Reading Location: [facility] B1 C013Y CT Body Reading Room Electronically signedby: FREDDY SHELDON MD on 08/07/2018 06:53 [id number] 04:25: 00 Test Item Value Reference Range Comments PHOSPHORUS (BEAKER) (test afsf=857) 2.6 mg/dL 2.3-4.7 [id number] 04:25:00 Test Item Value Reference Range Comments MAGNESIUM (BEAKER) (test wpue=733) 1.9 mg/dL 1.6-2.6 BASIC METABOLIC [id number] 04:25:00 Test Item Value Reference Range Comments SODIUM (BEAKER) (test 137 meq/L 136-145 cpjn=336) POTASSIUM (BEAKER) (test 3.9 meq/L 3.5-5.1 exnh=871) CHLORIDE (BEAKER) (test 109 meq/L 98-107 qobd=940) CO2 (BEAKER) (test 22 meq/L 22-29 iuba=342) BLOOD UREA NITROGEN 24 mg/dL 7-21 (BEAKER) (test brof=236) CREATININE (BEAKER) (test 0.69 mg/dL 0.57-1.25 qeei=866) GLUCOSE RANDOM (BEAKER) 168 mg/dL 70-105 (test lseg=897) CALCIUM (BEAKER) (test 9.2 mg/dL 8.4-10.2 cvye=487) EGFR (BEAKER) (test 83 mL/min/1.73 sq m ESTIMATED GFR IS NOT kqgs=3037) ACCURATE CREATININE CLEARANCE IN PREDICTING GLOMERULAR FILTRATION RATE. ESTIMATED GFR IS NOT APPLICABLE FOR DIALYSIS PATIENTS. CBC (HEMOGRAM ONLY)2018-08-07 03:49:00 Test Item Value Reference Range Comments WHITE BLOOD CELL COUNT (BEAKER) (test htrp=124) 14.0 K/ L 3.5-10.5 RED BLOOD CELL COUNT (BEAKER) (test arnw=109) 2.46 M/ L 3.93-5.22 HEMOGLOBIN (BEAKER) (test ilxa=428) 9.0 GM/DL 11.2-15.7 HEMATOCRIT (BEAKER) (test frsw=879) 26.4 % 34.1-44.9 MEAN CORPUSCULAR VOLUME (BEAKER) (test dxgc=595) 107.3 fL 79.4-94.8 MEAN CORPUSCULAR HEMOGLOBIN (BEAKER) (test 36.6 pg 25.6-32.2 rinj=973) MEAN CORPUSCULAR HEMOGLOBIN CONC (BEAKER) (test 34.1 GM/DL 32.2-35.5 pdbg=455) RED CELL DISTRIBUTION WIDTH (BEAKER) (test 23.0 % 11.7-14.4 igsm=759) PLATELET COUNT (BEAKER) (test hguk=167) 125 K/CU MM 150-450 MEAN PLATELET VOLUME (BEAKER) (test lfzb=778) 10.8 fL 9.4-12.3 NUCLEATED RED BLOOD CELLS (BEAKER) (test 0 /100 WBC 0-0 geah=527) CALCIUM, [id number] 03:31:00 Test Item Value Reference Range Comments CALCIUM IONIZED (BEAKER) (test rxck=941) 1.23 mmol/L 1.12-1.27 PH, BLOOD (BEAKER) (test xzbs=5525) 7.40 BLOOD GAS, [id number] 03:19:00 Test Item Value Reference Range Comments PH ARTERIAL (BEAKER) (test vccz=491) 7.40 7.35-7.45 PCO2 ARTERIAL (BEAKER) (test mjfq=779) 38 mmHg 35-45 PO2 ARTERIAL (BEAKER) (test soot=925) 111 mmHg 80-90 O2 SATURATION ARTERIAL (BEAKER) (test faqs=954) 98.0 % 96.0-97.0 HCO3 ARTERIAL (BEAKER) (test chnc=563) 23 mmol/L 21-29 BASE EXCESS ARTERIAL (BEAKER) (test itgm=646) -1.6 mmol/L -2.0-3.0 PATIENT TEMPERATURE (BEAKER) (test hhhg=6705) 37.3 C FIO2 (BEAKER) (test rast=6456) 32.0 % [id number] 22:08:00 Test Item Value Reference Range Comments MAGNESIUM (BEAKER) (test srnt=416) 2.2 mg/dL 1.6-2.6 BLOOD GAS, [id number] 22:00:00 Test Item Value Reference Range Comments PH ARTERIAL (BEAKER) (test ijey=967) 7.40 7.35-7.45 PCO2 ARTERIAL (BEAKER) (test yauj=774) 35 mmHg 35-45 PO2 ARTERIAL (BEAKER) (test dtbi=421) 109 mmHg 80-90 O2 SATURATION ARTERIAL (BEAKER) (test cxdh=456) 97.9 % 96.0-97.0 HCO3 ARTERIAL (BEAKER) (test dmps=489) 21 mmol/L 21-29 BASE EXCESS ARTERIAL (BEAKER) (test lpnw=107) -2.9 mmol/L -2.0-3.0 PATIENT TEMPERATURE (BEAKER) (test irss=7999) 37.4 C FIO2 (BEAKER) (test tbbm=0506) 32.0 % GLUCOSE-STAT [id number] 22:00:00 Test Item Value Reference Range Comments GLUCOSE RANDOM (BEAKER) (test bweq=853) 187 mg/dL 70-110 HGB/HCT (H&H) - STAT [id number] 22:00:00 Test Item Value Reference Range Comments HEMOGLOBIN (BEAKER) (test qhdn=884) 10.3 g/dL 12.0-15.0 HEMATOCRIT (BEAKER) (test nnsl=921) 30.0 % 36.0-45.0 SODIUM NA-STAT [id number] 21:59:00 Test Item Value Reference Range Comments SODIUM (BEAKER) (test mfhu=027) 137 meq/L 135-148 POTASSIUM-STAT [id number] 21:59:00 Test Item Value Reference Range Comments POTASSIUM (BEAKER) (test vtlo=389) 4.0 meq/L 3.6-5.5 OXYGEN SATURATION, [id number] 21:59:00 Test Item Value Reference Range Comments O2 SATURATION (MEASURED) (BEAKER) (test jtvm=4658) 70.7 % CALCIUM, [id number] 21:59:00 Test Item Value Reference Range Comments CALCIUM IONIZED (BEAKER) (test kprm=027) 1.23 mmol/L 1.12-1.27 PH, BLOOD (BEAKER) (test qtcd=9639) 7.41 POCT-GLUCOSE [id number] 17:02:00 Test Item Value Reference Range Comments POC-GLUCOSE METER (BEAKER) 223 mg/dL 70-[address] [facility] [address] [facility] (test obic=1847) [facility] [address] POCT-GLUCOSE [id number] 12:13:00 Test Item Value Reference Range Comments POC-GLUCOSE METER (BEAKER) 109 mg/dL 70-[address] [facility] [address] [facility] (test anrz=3874) [facility] [address] POCT-GLUCOSE [id number] 10:41:00 Test Item Value Reference Range Comments POC-GLUCOSE METER (BEAKER) 105 mg/dL 70-[address] [facility] [address] [facility] (test srwm=5985) [facility] [address] COMPREHENSIVE METABOLIC [id number] 09:37:00 Test Item Value Reference Range Comments TOTAL PROTEIN (BEAKER) 5.7 gm/dL 6.0-8.3 (test dsox=401) ALBUMIN (BEAKER) (test 4.0 g/dL 3.5-5.0 ykut=4175) ALKALINE PHOSPHATASE 44 U/L 40-150 (BEAKER) (test smhi=631) BILIRUBIN TOTAL (BEAKER) 1.0 mg/dL 0.2-1.2 (test mycn=710) SODIUM (BEAKER) (test 139 meq/L 136-145 fzrw=858) POTASSIUM (BEAKER) (test 4.0 meq/L 3.5-5.1 hezm=865) CHLORIDE (BEAKER) (test 111 meq/L 98-107 utoo=200) CO2 (BEAKER) (test 20 meq/L 22-29 xsqv=589) BLOOD UREA NITROGEN 23 mg/dL 7-21 (BEAKER) (test ofsg=715) CREATININE (BEAKER) (test 0.84 mg/dL 0.57-1.25 kget=818) GLUCOSE RANDOM (BEAKER) 100 mg/dL 70-105 (test icvf=519) CALCIUM (BEAKER) (test 9.3 mg/dL 8.4-10.2 hemw=336) AST (SGOT) (BEAKER) (test 31 U/L 5-34 kzli=291) ALT (SGPT) (BEAKER) (test 11 U/L 6-55 dmmo=664) EGFR (BEAKER) (test 66 mL/min/1.73 sq m ESTIMATED GFR IS NOT xhft=5297) ACCURATE CREATININE CLEARANCE IN PREDICTING GLOMERULAR FILTRATION RATE. ESTIMATED GFR IS NOT APPLICABLE FOR DIALYSIS PATIENTS. BLOOD GAS, [id number] 08:39:00 Test Item Value Reference Range Comments PH ARTERIAL (BEAKER) (test mswx=539) 7.59 7.35-7.45 PCO2 ARTERIAL (BEAKER) (test ptmq=372) 21 mmHg 35-45 PO2 ARTERIAL (BEAKER) (test nedu=005) 132 mmHg 80-90 O2 SATURATION ARTERIAL (BEAKER) (test sqpq=873) 99.1 % 96.0-97.0 HCO3 ARTERIAL (BEAKER) (test jzwy=043) 20 mmol/L 21-29 BASE EXCESS ARTERIAL (BEAKER) (test gshb=590) -1.3 mmol/L -2.0-3.0 PATIENT TEMPERATURE (BEAKER) (test ylyv=4708) 37.1 C FIO2 (BEAKER) (test thjp=9462) 40.0 % RAD, CHEST, 1 VIEW, NON [id number] 07:24:00Reason for exam:->s/p CV surgeryShould this be performed at the bedside?->YesFINAL REPORT RAD, CHEST, 1 VIEW, NON DEPT INDICATION: s/p CV surgery COMPARISON: Prior day's exam FINDINGS: Portable frontal view of the chest. IMPRESSION: Support Lines: Interval retraction of the endotracheal tube now terminating approximately 4 cm above the kenn. Left thoracostomy tube has also been retracted slightly. Remaining support hardware is stable. Lungs and pleura: Basilar subsegmental atelectasis noted bilaterally. Atelectatic change versus left infrahilar/left retrocardiac opacity increasing since the prior examination. No pneumothorax.Heart and mediastinum: Stable contours. Stable surgical changes.Additional findings: None. Signed: JR Salas Robert MDReport Verified Date/Time: 08/06/2018 07:24:21 Reading Location: [facility] Radiology ReadingRoom POCT-GLUCOSE [id number] 06:19:00 Test Item Value Reference Range Comments POC-GLUCOSE METER (BEAKER) 157 mg/dL 70-110 TESTED AT [address] (test gjgs=0448) [facility] [address] POCT-GLUCOSE [id number] 06:19:00 Test Item Value Reference Range Comments POC-GLUCOSE METER (BEAKER) 162 mg/dL 70-110 TESTED AT [address] (test bhcd=6806) [facility] [address] POCT-GLUCOSE [id number] 06:18:00 Test Item Value Reference Range Comments POC-GLUCOSE METER (BEAKER) 120 mg/dL 70-[address] [facility] [address] (test obkj=8890) [facility] [address] [id number] 04:49:00 Test Item Value Reference Range Comments POTASSIUM (BEAKER) (test mlrz=779) 4.4 meq/L 3.5-5.1 Every 8 hours PRN for Creatinine greater than or equal to 2 mg/dL.[id number] 04:49:00 Test Item Value Reference Range Comments MAGNESIUM (BEAKER) (test nwzp=668) 2.3 mg/dL 1.6-2.6 Every 8 hours PRN for Creatinine greater than or equal to 2 mg/dL.[id number] 04:49:00 Test Item Value Reference Range Comments PHOSPHORUS (BEAKER) (test tzpt=502) 3.2 mg/dL 2.3-4.7 Every 8 hours PRN for Creatinine greater than or equal to 2 mg/dL.BASIC METABOLIC [id number] 04:49:00 Test Item Value Reference Range Comments SODIUM (BEAKER) (test 139 meq/L 136-145 trhl=768) POTASSIUM (BEAKER) (test 4.4 meq/L 3.5-5.1 wvdz=219) CHLORIDE (BEAKER) (test 112 meq/L 98-107 gbxt=460) CO2 (BEAKER) (test 20 meq/L 22-29 ajvs=257) BLOOD UREA NITROGEN 24 mg/dL 7-21 (BEAKER) (test wzsi=184) CREATININE (BEAKER) (test 0.88 mg/dL 0.57-1.25 lquv=853) GLUCOSE RANDOM (BEAKER) 143 mg/dL 70-105 (test mapk=391) CALCIUM (BEAKER) (test 8.9 mg/dL 8.4-10.2 vdzn=726) EGFR (BEAKER) (test 62 mL/min/1.73 sq m ESTIMATED GFR IS NOT shab=0605) ACCURATE CREATININE CLEARANCE IN PREDICTING GLOMERULAR FILTRATION RATE. ESTIMATED GFR IS NOT APPLICABLE FOR DIALYSIS PATIENTS. Every 8 hours PRN for Creatinine greater than or equal to 2 mg/dL.LACTIC ACID, [id number] 04:44:00 Test Item Value Reference Range Comments LACTATE BLOOD ARTERIAL (2) (BEAKER) (test 2.3 mmol/L 0.5-2.2 rcnb=2588) CBC (HEMOGRAM ONLY)2018-08-06 04:37:00 Test Item Value Reference Range Comments WHITE BLOOD CELL COUNT (BEAKER) (test ixwp=469) 8.0 K/ L 3.5-10.5 RED BLOOD CELL COUNT (BEAKER) (test sblh=450) 1.98 M/ L 3.93-5.22 HEMOGLOBIN (BEAKER) (test broh=404) 7.5 GM/DL 11.2-15.7 HEMATOCRIT (BEAKER) (test aezz=595) 21.9 % 34.1-44.9 MEAN CORPUSCULAR VOLUME (BEAKER) (test bmdm=014) 110.6 fL 79.4-94.8 MEAN CORPUSCULAR HEMOGLOBIN (BEAKER) (test 37.9 pg 25.6-32.2 ivvt=917) MEAN CORPUSCULAR HEMOGLOBIN CONC (BEAKER) (test 34.2 GM/DL 32.2-35.5 burf=269) RED CELL DISTRIBUTION WIDTH (BEAKER) (test 21.7 % 11.7-14.4 fqyf=434) PLATELET COUNT (BEAKER) (test cjvq=328) 116 K/CU MM 150-450 MEAN PLATELET VOLUME (BEAKER) (test vmcg=681) 10.6 fL 9.4-12.3 NUCLEATED RED BLOOD CELLS (BEAKER) (test 1 /100 WBC 0-0 henw=674) OXYGEN SATURATION, [id number] 04:32:00 Test Item Value Reference Range Comments O2 SATURATION (MEASURED) (BEAKER) (test cnby=6844) 69.8 % CALCIUM, [id number] 04:28:00 Test Item Value Reference Range Comments CALCIUM IONIZED (BEAKER) (test ytoc=923) 1.19 mmol/L 1.12-1.27 PH, BLOOD (BEAKER) (test ycrp=3941) 7.41 BLOOD GAS, [id number] 04:27:00 Test Item Value Reference Range Comments PH ARTERIAL (BEAKER) (test lbyv=550) 7.40 7.35-7.45 PCO2 ARTERIAL (BEAKER) (test nxev=389) 35 mmHg 35-45 PO2 ARTERIAL (BEAKER) (test wkfh=880) 120 mmHg 80-90 O2 SATURATION ARTERIAL (BEAKER) (test lepl=599) 98.3 % 96.0-97.0 HCO3 ARTERIAL (BEAKER) (test hnoj=203) 21 mmol/L 21-29 BASE EXCESS ARTERIAL (BEAKER) (test slsr=087) -3.1 mmol/L -2.0-3.0 PATIENT TEMPERATURE (BEAKER) (test gogt=6939) 37.4 C FIO2 (BEAKER) (test gfpp=3919) 40.0 % POCT-GLUCOSE [id number] 02:20:00 Test Item Value Reference Range Comments POC-GLUCOSE METER (BEAKER) 165 mg/dL 70-110 TESTED AT [address] (test coys=8568) [facility] [address] POCT-GLUCOSE [id number] 02:20:00 Test Item Value Reference Range Comments POC-GLUCOSE METER (BEAKER) 180 mg/dL 70-110 TESTED AT [address] (test fdwd=1598) [facility] [address] POCT-GLUCOSE [id number] 02:20:00 Test Item Value Reference Range Comments POC-GLUCOSE METER (BEAKER) 191 mg/dL 70-110 TESTED AT [address] (test ugcy=4405) [facility] [address] CALCIUM, [id number] 00:05:00 Test Item Value Reference Range Comments CALCIUM IONIZED (BEAKER) (test gena=765) 1.19 mmol/L 1.12-1.27 PH, BLOOD (BEAKER) (test hspl=2871) 7.37 LACTIC ACID, [id number] 00:05:00 Test Item Value Reference Range Comments LACTATE BLOOD ARTERIAL (2) 4.1 mmol/L 0.5-2.2 Specimen slightly hemolyzed (BEAKER) (test gxss=9764) BLOOD GAS, [id number] 00:04:00 Test Item Value Reference Range Comments PH ARTERIAL (BEAKER) (test ogoq=693) 7.38 7.35-7.45 PCO2 ARTERIAL (BEAKER) (test dolp=111) 33 mmHg 35-45 PO2 ARTERIAL (BEAKER) (test mytl=752) 103 mmHg 80-90 O2 SATURATION ARTERIAL (BEAKER) (test ixry=489) 97.8 % 96.0-97.0 HCO3 ARTERIAL (BEAKER) (test yjju=313) 19 mmol/L 21-29 BASE EXCESS ARTERIAL (BEAKER) (test hybe=447) -5.3 mmol/L -2.0-3.0 PATIENT TEMPERATURE (BEAKER) (test lupn=5511) 36.6 C FIO2 (BEAKER) (test qfpy=1140) 40.0 % GLUCOSE-STAT [id number] 00:04:00 Test Item Value Reference Range Comments GLUCOSE RANDOM (BEAKER) (test cthf=474) 173 mg/dL 70-110 HGB/HCT (H&H) - STAT [id number] 00:04:00 Test Item Value Reference Range Comments HEMOGLOBIN (BEAKER) (test cdhk=413) 8.6 g/dL 12.0-15.0 HEMATOCRIT (BEAKER) (test aebj=291) 25.0 % 36.0-45.0 [id number] 00:02:00 Test Item Value Reference Range Comments MAGNESIUM (BEAKER) (test ypnp=473) 2.4 mg/dL 1.6-2.6 Check Serum Magnesium level 2 hours after IV magnesium replacement.SODIUM NA- STAT [id number] 00:00:00 Test Item Value Reference Range Comments SODIUM (BEAKER) (test eyuk=114) 137 meq/L 135-148 POTASSIUM-STAT [id number] 00:00:00 Test Item Value Reference Range Comments POTASSIUM (BEAKER) (test ybsf=456) 4.1 meq/L 3.6-5.5 POCT-GLUCOSE [id number] 22:43:00 Test Item Value Reference Range Comments POC-GLUCOSE METER (BEAKER) 182 mg/dL 70-110 TESTED AT [address] (test wjrp=3030) [facility] [id number] POCT-GLUCOSE [id number] 22:43:00 Test Item Value Reference Range Comments POC-GLUCOSE METER (BEAKER) 174 mg/dL 70-110 TESTED AT [address] (test inhq=3915) [facility] [address] POCT-GLUCOSE [id number] 22:43:00 Test Item Value Reference Range Comments POC-GLUCOSE METER (BEAKER) 150 mg/dL 70-110 TESTED AT [facility] [address] (test uvxw=8601) [place] [address] CALCIUM, [id number] 19:54:00 Test Item Value Reference Range Comments CALCIUM IONIZED (BEAKER) (test lkgx=372) 1.16 mmol/L 1.12-1.27 PH, BLOOD (BEAKER) (test fovi=1192) 7.39 LACTIC ACID, [id number] 19:40:00 Test Item Value Reference Range Comments LACTATE BLOOD ARTERIAL (2) (BEAKER) (test 2.3 mmol/L 0.5-2.2 qzyz=9096) [id number] 19:38:00 Test Item Value Reference Range Comments MAGNESIUM (BEAKER) (test lryn=470) 2.2 mg/dL 1.6-2.6 SODIUM NA-STAT [id number] 19:24:00 Test Item Value Reference Range Comments SODIUM (BEAKER) (test vpck=328) 135 meq/L 135-148 POTASSIUM-STAT [id number] 19:24:00 Test Item Value Reference Range Comments POTASSIUM (BEAKER) (test aihw=500) 3.7 meq/L 3.6-5.5 BLOOD GAS, [id number] 19:24:00 Test Item Value Reference Range Comments PH ARTERIAL (BEAKER) (test lqtc=850) 7.39 7.35-7.45 PCO2 ARTERIAL (BEAKER) (test lbwd=149) 36 mmHg 35-45 PO2 ARTERIAL (BEAKER) (test suxa=586) 100 mmHg 80-90 O2 SATURATION ARTERIAL (BEAKER) (test rhmv=086) 97.7 % 96.0-97.0 HCO3 ARTERIAL (BEAKER) (test faxa=747) 22 mmol/L 21-29 BASE EXCESS ARTERIAL (BEAKER) (test tbrc=740) -3.2 mmol/L -2.0-3.0 PATIENT TEMPERATURE (BEAKER) (test zgfx=0071) 36.1 C FIO2 (BEAKER) (test uecq=9784) 40.0 % GLUCOSE-STAT [id number] 19:24:00 Test Item Value Reference Range Comments GLUCOSE RANDOM (BEAKER) (test fjlm=350) 163 mg/dL 70-110 HGB/HCT (H&H) - STAT [id number] 19:24:00 Test Item Value Reference Range Comments HEMOGLOBIN (BEAKER) (test pmtl=438) 9.5 g/dL 12.0-15.0 HEMATOCRIT (BEAKER) (test fsmi=826) 28.0 % 36.0-45.0 OXYGEN SATURATION, [id number] 19:23:00 Test Item Value Reference Range Comments O2 SATURATION (MEASURED) (BEAKER) (test lhxp=8755) 73.8 % POCT-GLUCOSE [id number] 17:19:00 Test Item Value Reference Range Comments POC-GLUCOSE METER (BEAKER) 128 mg/dL 70-110 TESTED AT [address] (test hvwn=1652) [place] [address] OXYGEN SATURATION, [id number] 17:19:00 Test Item Value Reference Range Comments O2 SATURATION (MEASURED) (BEAKER) (test duwb=5099) 60.6 % POCT-GLUCOSE [id number] 17:19:00 Test Item Value Reference Range Comments POC-GLUCOSE METER (BEAKER) 158 mg/dL 70-110 TESTED AT [address] (test swxc=3116) [place] [address] LACTIC ACID, [id number] 17:01:00 Test Item Value Reference Range Comments LACTATE BLOOD ARTERIAL (2) (BEAKER) (test 1.5 mmol/L 0.5-2.2 wfoa=6094) HEMOGLOBIN AND [id number] 16:49:00 Test Item Value Reference Range Comments HEMOGLOBIN (BEAKER) (test rqrt=816) 8.8 GM/DL 11.2-15.7 HEMATOCRIT (BEAKER) (test opiu=389) 26.5 % 34.1-44.9 POCT-GLUCOSE [id number] 16:31:00 Test Item Value Reference Range Comments POC-GLUCOSE METER (BEAKER) 191 mg/dL 70-110 TESTED AT [address] (test nzae=0270) [place] [id number] BLOOD GAS, [id number] 16:26:00 Test Item Value Reference Range Comments PH ARTERIAL (BEAKER) (test emed=269) 7.43 7.35-7.45 PCO2 ARTERIAL (BEAKER) (test nrdt=046) 35 mmHg 35-45 PO2 ARTERIAL (BEAKER) (test wpyy=125) 148 mmHg 80-90 O2 SATURATION ARTERIAL (BEAKER) (test ejpk=656) 99.0 % 96.0-97.0 HCO3 ARTERIAL (BEAKER) (test hphj=491) 23 mmol/L 21-29 BASE EXCESS ARTERIAL (BEAKER) (test dkzj=946) -1.9 mmol/L -2.0-3.0 PATIENT TEMPERATURE (BEAKER) (test ozkq=2499) 35.4 C FIO2 (BEAKER) (test hhzj=3482) 40.0 % [id number] 13:48:00 Test Item Value Reference Range Comments MAGNESIUM (BEAKER) (test 2.2 mg/dL 1.6-2.6 Specimen slightly hemolyzed cusm=451) [id number] 13:48:00 Test Item Value Reference Range Comments PHOSPHORUS (BEAKER) (test 4.2 mg/dL 2.3-4.7 Specimen slightly hemolyzed ryyd=175) BASIC METABOLIC [id number] 13:48:00 Test Item Value Reference Range Comments SODIUM (BEAKER) (test 136 meq/L 136-145 jzvo=046) POTASSIUM (BEAKER) (test 4.3 meq/L 3.5-5.1 Specimen slightly fmfz=199) hemolyzed CHLORIDE (BEAKER) (test 108 meq/L 98-107 xdlo=901) CO2 (BEAKER) (test 19 meq/L 22-29 agut=128) BLOOD UREA NITROGEN 24 mg/dL 7-21 (BEAKER) (test fcil=830) CREATININE (BEAKER) (test 0.83 mg/dL 0.57-1.25 Specimen slightly tjie=702) hemolyzed GLUCOSE RANDOM (BEAKER) 181 mg/dL 70-105 (test jydk=870) CALCIUM (BEAKER) (test 9.8 mg/dL 8.4-10.2 vpvn=592) EGFR (BEAKER) (test 67 mL/min/1.73 sq m ESTIMATED GFR IS NOT ppho=4884) ACCURATE CREATININE CLEARANCE IN PREDICTING GLOMERULAR FILTRATION RATE. ESTIMATED GFR IS NOT APPLICABLE FOR DIALYSIS PATIENTS. LACTIC ACID, [id number] 13:42:00 Test Item Value Reference Range Comments LACTATE BLOOD ARTERIAL (2) 1.1 mmol/L 0.5-2.2 Specimen slightly hemolyzed (BEAKER) (test vfom=3452) RAD, CHEST, 1 VIEW, NON [id number] 13:35:00Reason for exam:->POST OPShould this be performed at the bedside?->YesFINAL REPORT TECHNIQUE: Frontal chest radiograph dated 08/05/2018. CLINICAL HISTORY : Post op COMPARISON STUDY: Chest radiograph dated 07/29/2018 IMPRESSION: Endotracheal tube is 2.7 cm above the kenn. Left-sided central vascular line projects over the region of superior vena cava. Enteric tube is seen with the tip in the region of the gastric fundus. Left-sided chest tube and mediastinal drain are present. There is left retrocardiac atelectasis. No pleural effusion or pneumothorax. Cardiomediastinal silhouette is stable in size. No pulmonary edema. Degenerative changes are seen in the spine. Midline sternotomy wires are intact and well aligned. Signed: Logan Bean MDReport Verified Date/Time : 08/05/2018 13:35:26 Reading Location: [facility] Radiology Reading Room CBC W/PLT COUNT & AUTO [id number] 13:33:00 Test Item Value Reference Range Comments WHITE BLOOD CELL COUNT (BEAKER) (test wpol=301) 9.0 K/ L 3.5-10.5 RED BLOOD CELL COUNT (BEAKER) (test hxun=072) 2.80 M/ L 3.93-5.22 HEMOGLOBIN (BEAKER) (test ylyx=053) 10.3 GM/DL 11.2-15.7 HEMATOCRIT (BEAKER) (test nijv=308) 30.8 % 34.1-44.9 MEAN CORPUSCULAR VOLUME (BEAKER) (test penx=149) 110.0 fL 79.4-94.8 MEAN CORPUSCULAR HEMOGLOBIN (BEAKER) (test 36.8 pg 25.6-32.2 zlxv=865) MEAN CORPUSCULAR HEMOGLOBIN CONC (BEAKER) (test 33.4 GM/DL 32.2-35.5 qqjg=711) RED CELL DISTRIBUTION WIDTH (BEAKER) (test 20.7 % 11.7-14.4 unms=211) PLATELET COUNT (BEAKER) (test zwqy=414) 127 K/CU MM 150-450 MEAN PLATELET VOLUME (BEAKER) (test wekd=674) 10.5 fL 9.4-12.3 NUCLEATED RED BLOOD CELLS (BEAKER) (test 1 /100 WBC 0-0 zxar=622) NEUTROPHILS RELATIVE PERCENT (BEAKER) (test 79 % inpz=104) LYMPHOCYTES RELATIVE PERCENT (BEAKER) (test 11 % bwkt=081) MONOCYTES RELATIVE PERCENT (BEAKER) (test 8 % qurh=691) EOSINOPHILS RELATIVE PERCENT (BEAKER) (test 0 % yfar=068) BASOPHILS RELATIVE PERCENT (BEAKER) (test 0 % laeg=517) NEUTROPHILS ABSOLUTE COUNT (BEAKER) (test 7.09 K/ L 1.56-6.13 rrub=099) LYMPHOCYTES ABSOLUTE COUNT (BEAKER) (test 0.98 K/ L 1.18-3.74 mhqz=533) MONOCYTES ABSOLUTE COUNT (BEAKER) (test 0.73 K/ L 0.24-0.36 rkhg=532) EOSINOPHILS ABSOLUTE COUNT (BEAKER) (test 0.03 K/ L 0.04-0.36 flte=517) BASOPHILS ABSOLUTE COUNT (BEAKER) (test 0.02 K/ L 0.01-0.08 zuvc=754) IMMATURE GRANULOCYTES-RELATIVE PERCENT (BEAKER) 1 % 0-1 (test vplz=7619) BLOOD GAS, [id number] 13:27:00 Test Item Value Reference Range Comments PH ARTERIAL (BEAKER) (test bdzw=497) 7.47 7.35-7.45 PCO2 ARTERIAL (BEAKER) (test celq=313) 29 mmHg 35-45 PO2 ARTERIAL (BEAKER) (test vrdm=233) 176 mmHg 80-90 O2 SATURATION ARTERIAL (BEAKER) (test eswb=705) 99.3 % 96.0-97.0 HCO3 ARTERIAL (BEAKER) (test aazk=820) 21 mmol/L 21-29 BASE EXCESS ARTERIAL (BEAKER) (test mkqc=643) -2.3 mmol/L -2.0-3.0 PATIENT TEMPERATURE (BEAKER) (test gehx=6620) 35.5 C FIO2 (BEAKER) (test otmd=9957) 60.0 % OXYGEN SATURATION, [id number] 13:21:00 Test Item Value Reference Range Comments O2 SATURATION (MEASURED) (BEAKER) (test aqcg=5225) 64.2 % [id number] 12:22:00 Test Item Value Reference Range Comments FIBRINOGEN LEVEL (BEAKER) (test azzk=926) 225 mg/dl 225-434 [id number] 12:22:00 Test Item Value Reference Range Comments PARTIAL THROMBOPLASTIN TIME (BEAKER) (test 33.4 seconds 22.5-36.0 vvdv=558) PROTHROMBIN [id number] 12:21:00 Test Item Value Reference Range Comments PROTIME (BEAKER) (test fgzq=620) 19.2 seconds 11.9-14.2 INR (BEAKER) (test nhil=544) 1.7 <=5.9 Effective 08/04/2018: PT Reference Range ChangeNew: 11.9-14.2 Previous: 11.7- 14.7RECOMMENDED COUMADIN/WARFARIN INR THERAPY RANGESSTANDARD DOSE: 2.0-3.0 Includes: PROPHYLAXIS for venous thrombosis, systemic embolization; TREATMENT for venous thrombosis and/or pulmonary embolus.HIGH RISK: Target INR is2.5-3.5 for patients wiht mechanical heart valves.CBC (HEMOGRAM ONLY)2018-08-05 12:14:00 Test Item Value Reference Range Comments WHITE BLOOD CELL COUNT (BEAKER) (test gepc=257) 8.3 K/ L 3.5-10.5 RED BLOOD CELL COUNT (BEAKER) (test zbok=253) 2.62 M/ L 3.93-5.22 HEMOGLOBIN (BEAKER) (test qaqn=851) 9.7 GM/DL 11.2-15.7 HEMATOCRIT (BEAKER) (test mhjw=414) 29.0 % 34.1-44.9 MEAN CORPUSCULAR VOLUME (BEAKER) (test gbdn=644) 110.7 fL 79.4-94.8 MEAN CORPUSCULAR HEMOGLOBIN (BEAKER) (test 37.0 pg 25.6-32.2 uxdw=525) MEAN CORPUSCULAR HEMOGLOBIN CONC (BEAKER) (test 33.4 GM/DL 32.2-35.5 nfpj=060) RED CELL DISTRIBUTION WIDTH (BEAKER) (test 20.4 % 11.7-14.4 vlul=520) PLATELET COUNT (BEAKER) (test dwmj=897) 117 K/CU MM 150-450 MEAN PLATELET VOLUME (BEAKER) (test qnwz=450) 10.5 fL 9.4-12.3 NUCLEATED RED BLOOD CELLS (BEAKER) (test 1 /100 WBC 0-0 hsps=414) [id number] 11:30:00 Test Item Value Reference Range Comments ACTIVATED CLOTTING TIME 109 sec TESTED AT [place] [address] [address] (BEAKER) (test ksvs=259) [place] [address] [id number] 11:30:00 Test Item Value Reference Range Comments ACTIVATED CLOTTING TIME 433 sec TESTED AT [place] [address] [facility] (BEAKER) (test mfui=218) [place] [address] [id number] 11:30:00 Test Item Value Reference Range Comments ACTIVATED CLOTTING TIME 532 sec TESTED AT [address] (BEAKER) (test xbjb=125) [place] [address] [id number] 11:30:00 Test Item Value Reference Range Comments ACTIVATED CLOTTING TIME 648 sec TESTED AT [address] (BEAKER) (test gdlo=796) [place] [address] [id number] 11:30:00 Test Item Value Reference Range Comments ACTIVATED CLOTTING TIME 483 sec TESTED AT [address] (BEAKER) (test cycu=870) [place] [address] [id number] 11:30:00 Test Item Value Reference Range Comments ACTIVATED CLOTTING TIME 395 sec TESTED AT [address] (BEAKER) (test epxl=220) [place] [address] CALCIUM, [id number] 11:21:00 Test Item Value Reference Range Comments CALCIUM IONIZED (BEAKER) (test semm=028) 1.31 mmol/L 1.12-1.27 PH, BLOOD (BEAKER) (test cxes=7359) 7.38 BLOOD GAS, [id number] 11:21:00 Test Item Value Reference Range Comments PH ARTERIAL (BEAKER) (test bihy=957) 7.39 7.35-7.45 PCO2 ARTERIAL (BEAKER) (test jrba=827) 38 mmHg 35-45 PO2 ARTERIAL (BEAKER) (test amdj=842) 286 mmHg 80-90 O2 SATURATION ARTERIAL (BEAKER) (test ikwv=208) 99.7 % 96.0-97.0 HCO3 ARTERIAL (BEAKER) (test wgqf=412) 23 mmol/L 21-29 BASE EXCESS ARTERIAL (BEAKER) (test pcbw=060) -2.0 mmol/L -2.0-3.0 PATIENT TEMPERATURE (BEAKER) (test jbpj=2670) 35.9 C FIO2 (BEAKER) (test lroi=2180) 100.0 % SODIUM NA-STAT [id number] 11:21:00 Test Item Value Reference Range Comments SODIUM (BEAKER) (test ghic=325) 134 meq/L 135-148 GLUCOSE-STAT [id number] 11:21:00 Test Item Value Reference Range Comments GLUCOSE RANDOM (BEAKER) (test fylw=810) 185 mg/dL 70-110 HGB/HCT (H&H) - STAT [id number] 11:21:00 Test Item Value Reference Range Comments HEMOGLOBIN (BEAKER) (test zkak=307) 8.6 g/dL 12.0-15.0 HEMATOCRIT (BEAKER) (test votf=001) 25.0 % 36.0-45.0 POTASSIUM-STAT [id number] 11:20:00 Test Item Value Reference Range Comments POTASSIUM (BEAKER) (test hlgd=529) 3.8 meq/L 3.6-5.5 POTASSIUM-STAT [id number] 10:50:00 Test Item Value Reference Range Comments POTASSIUM (BEAKER) (test bwdw=581) 4.7 meq/L 3.6-5.5 BLOOD GAS, [id number] 10:50:00 Test Item Value Reference Range Comments PH ARTERIAL (BEAKER) (test fgei=080) 7.43 7.35-7.45 PCO2 ARTERIAL (BEAKER) (test cdut=226) 36 mmHg 35-45 PO2 ARTERIAL (BEAKER) (test rdly=085) 319 mmHg 80-90 O2 SATURATION ARTERIAL (BEAKER) (test raac=038) 99.7 % 96.0-97.0 HCO3 ARTERIAL (BEAKER) (test mgpe=233) 24 mmol/L 21-29 BASE EXCESS ARTERIAL (BEAKER) (test ceft=106) -0.7 mmol/L -2.0-3.0 PATIENT TEMPERATURE (BEAKER) (test xnux=8719) 35.6 C FIO2 (BEAKER) (test pvlt=9403) 65.0 % SODIUM NA-STAT [id number] 10:50:00 Test Item Value Reference Range Comments SODIUM (BEAKER) (test ekyf=076) 132 meq/L 135-148 GLUCOSE-STAT [id number] 10:50:00 Test Item Value Reference Range Comments GLUCOSE RANDOM (BEAKER) (test xoqc=987) 185 mg/dL 70-110 HGB/HCT (H&H) - STAT [id number] 10:50:00 Test Item Value Reference Range Comments HEMOGLOBIN (BEAKER) (test bwen=557) 9.2 g/dL 12.0-15.0 HEMATOCRIT (BEAKER) (test xtxs=292) 27.0 % 36.0-45.0 POTASSIUM-STAT [id number] 10:23:00 Test Item Value Reference Range Comments POTASSIUM (BEAKER) (test bdnk=613) 5.2 meq/L 3.6-5.5 BLOOD GAS, [id number] 10:23:00 Test Item Value Reference Range Comments PH ARTERIAL (BEAKER) (test hkyo=651) 7.40 7.35-7.45 PCO2 ARTERIAL (BEAKER) (test qukh=118) 41 mmHg 35-45 PO2 ARTERIAL (BEAKER) (test xnxz=753) 287 mmHg 80-90 O2 SATURATION ARTERIAL (BEAKER) (test sjqf=878) 99.7 % 96.0-97.0 HCO3 ARTERIAL (BEAKER) (test qryo=638) 25 mmol/L 21-29 BASE EXCESS ARTERIAL (BEAKER) (test ahgj=187) -0.3 mmol/L -2.0-3.0 PATIENT TEMPERATURE (BEAKER) (test frnz=9484) 35.3 C FIO2 (BEAKER) (test qiln=9837) 65.0 % GLUCOSE-STAT [id number] 10:23:00 Test Item Value Reference Range Comments GLUCOSE RANDOM (BEAKER) (test mpcq=182) 170 mg/dL 70-110 HGB/HCT (H&H) - STAT [id number] 10:23:00 Test Item Value Reference Range Comments HEMOGLOBIN (BEAKER) (test cbms=689) 8.9 g/dL 12.0-15.0 HEMATOCRIT (BEAKER) (test frle=018) 26.0 % 36.0-45.0 SODIUM NA-STAT [id number] 10:23:00 Test Item Value Reference Range Comments SODIUM (BEAKER) (test xqki=020) 132 meq/L 135-148 BLOOD GAS, [id number] 09:58:00 Test Item Value Reference Range Comments PH ARTERIAL (BEAKER) (test tleq=683) 7.41 7.35-7.45 PCO2 ARTERIAL (BEAKER) (test qtrf=292) 40 mmHg 35-45 PO2 ARTERIAL (BEAKER) (test xewk=815) 278 mmHg 80-90 O2 SATURATION ARTERIAL (BEAKER) (test kpas=841) 99.7 % 96.0-97.0 HCO3 ARTERIAL (BEAKER) (test irrq=551) 26 mmol/L 21-29 BASE EXCESS ARTERIAL (BEAKER) (test bdvr=001) -0.2 mmol/L -2.0-3.0 PATIENT TEMPERATURE (BEAKER) (test bgyr=2839) 30.8 C FIO2 (BEAKER) (test uazv=9928) 60.0 % SODIUM NA-STAT [id number] 09:58:00 Test Item Value Reference Range Comments SODIUM (BEAKER) (test ihah=599) 132 meq/L 135-148 GLUCOSE-STAT [id number] 09:58:00 Test Item Value Reference Range Comments GLUCOSE RANDOM (BEAKER) (test ydta=012) 160 mg/dL 70-110 HGB/HCT (H&H) - STAT [id number] 09:58:00 Test Item Value Reference Range Comments HEMOGLOBIN (BEAKER) (test sxxs=941) 8.9 g/dL 12.0-15.0 HEMATOCRIT (BEAKER) (test fzuo=185) 26.0 % 36.0-45.0 POTASSIUM-STAT [id number] 09:56:00 Test Item Value Reference Range Comments POTASSIUM (BEAKER) (test ytdw=258) 4.8 meq/L 3.6-5.5 BLOOD GAS, [id number] 09:29:00 Test Item Value Reference Range Comments PH ARTERIAL (BEAKER) (test wgrm=107) 7.38 7.35-7.45 PCO2 ARTERIAL (BEAKER) (test gwnx=578) 37 mmHg 35-45 PO2 ARTERIAL (BEAKER) (test wsyp=435) 376 mmHg 80-90 O2 SATURATION ARTERIAL (BEAKER) (test phar=671) 99.8 % 96.0-97.0 HCO3 ARTERIAL (BEAKER) (test qsix=338) 24 mmol/L 21-29 BASE EXCESS ARTERIAL (BEAKER) (test jtnu=051) -3.2 mmol/L -2.0-3.0 PATIENT TEMPERATURE (BEAKER) (test crti=3498) 29.2 C FIO2 (BEAKER) (test jxqe=5044) 80.0 % SODIUM NA-STAT [id number] 09:29:00 Test Item Value Reference Range Comments SODIUM (BEAKER) (test mrcy=392) 131 meq/L 135-148 GLUCOSE-STAT [id number] 09:29:00 Test Item Value Reference Range Comments GLUCOSE RANDOM (BEAKER) (test gvrp=217) 180 mg/dL 70-110 HGB/HCT (H&H) - STAT [id number] 09:29:00 Test Item Value Reference Range Comments HEMOGLOBIN (BEAKER) (test pttn=091) 7.1 g/dL 12.0-15.0 HEMATOCRIT (BEAKER) (test oboc=443) 21.0 % 36.0-45.0 POTASSIUM-STAT [id number] 09:28:00 Test Item Value Reference Range Comments POTASSIUM (BEAKER) (test goph=768) 5.1 meq/L 3.6-5.5 CALCIUM, [id number] 08:02:00 Test Item Value Reference Range Comments CALCIUM IONIZED (BEAKER) (test rcqc=784) 1.14 mmol/L 1.12-1.27 PH, BLOOD (BEAKER) (test ptmw=3015) 7.54 BLOOD GAS, [id number] 08:02:00 Test Item Value Reference Range Comments PH ARTERIAL (BEAKER) (test mkst=300) 7.56 7.35-7.45 PCO2 ARTERIAL (BEAKER) (test ojfl=223) 28 mmHg 35-45 PO2 ARTERIAL (BEAKER) (test iqkh=678) 340 mmHg 80-90 O2 SATURATION ARTERIAL (BEAKER) (test xiix=026) 99.8 % 96.0-97.0 HCO3 ARTERIAL (BEAKER) (test rgqf=659) 24 mmol/L 21-29 BASE EXCESS ARTERIAL (BEAKER) (test rkrf=900) 2.3 mmol/L -2.0-3.0 PATIENT TEMPERATURE (BEAKER) (test kfly=0805) 36.0 C FIO2 (BEAKER) (test gzhc=9170) 100.0 % SODIUM NA-STAT [id number] 08:02:00 Test Item Value Reference Range Comments SODIUM (BEAKER) (test wffb=909) 134 meq/L 135-148 HGB/HCT (H&H) - STAT [id number] 08:02:00 Test Item Value Reference Range Comments HEMOGLOBIN (BEAKER) (test joom=737) 11.2 g/dL 12.0-15.0 HEMATOCRIT (BEAKER) (test svuk=579) 33.0 % 36.0-45.0 GLUCOSE-STAT [id number] 08:01:00 Test Item Value Reference Range Comments GLUCOSE RANDOM (BEAKER) (test uddi=008) 106 mg/dL 70-110 POTASSIUM-STAT [id number] 08:01:00 Test Item Value Reference Range Comments POTASSIUM (BEAKER) (test widk=517) 3.8 meq/L 3.6-5.5 POCT-GLUCOSE [id number] 05:58:00 Test Item Value Reference Range Comments POC-GLUCOSE METER (BEAKER) 114 mg/dL 70-[address] [facility] [address] [place] [address] (test pwrw=3868) [facility] [address] TISSUE [id number] 15:29:00Surgical Pathology Report Case: [id number] Authorizing Provider: Sabas Aquino, Collected: 07/28/2018 Adrián SMITH OrderingLocation: [facility] Received: 2018 1614 [facility]OPER[facility] Pathologist: Alvaro Chavez MD Specimen: Plaque, Carotid PART A RIGHT CAROTIDPLAQUE, ENDARTERECTOMY:CALCIFIC ATHEROSCLEROSIS. Signing Pathologist Direct Phone Line: [phone] signed by Alvaro Chavez MD on 2018 at 3:29 [id number], [id number] stenosis, rightRight carotidA. Received in formalin labeled "carotid" a 3 x 1.3 x 1 cm foreman-pink vascular segment. Foreman- yellow and calcified plaque is identified. Administrative Assistant Coordinator sections are submitted in cassette A1 following decalcification. CG/pl Performed.POCT- GLUCOSE [id number] 16:25:00 Test Item Value Reference Range Comments POC-GLUCOSE METER (BEAKER) 173 mg/dL 70-110 TESTED AT [address] (test tgwv=9141) [place] [id number] POCT-GLUCOSE [id number] 12:08:00 Test Item Value Reference Range Comments POC-GLUCOSE METER (BEAKER) 194 mg/dL 70-110 TESTED AT [address] (test klyq=9110) [place] [id number] POCT-GLUCOSE [id number] 07:15:00 Test Item Value Reference Range Comments POC-GLUCOSE METER (BEAKER) 228 mg/dL 70-110 TESTED AT [address] (test eeea=8234) [place] [id number] CBC W/PLT COUNT & AUTO [id number] 06:14:00 Test Item Value Reference Range Comments WHITE BLOOD CELL COUNT (BEAKER) (test mvtt=942) 6.6 K/ L 3.5-10.5 RED BLOOD CELL COUNT (BEAKER) (test cjhb=234) 2.53 M/ L 3.93-5.22 HEMOGLOBIN (BEAKER) (test lkry=110) 9.9 GM/DL 11.2-15.7 HEMATOCRIT (BEAKER) (test czwt=483) 29.3 % 34.1-44.9 MEAN CORPUSCULAR VOLUME (BEAKER) (test nwcc=217) 115.8 fL 79.4-94.8 MEAN CORPUSCULAR HEMOGLOBIN (BEAKER) (test 39.1 pg 25.6-32.2 azlf=249) MEAN CORPUSCULAR HEMOGLOBIN CONC (BEAKER) (test 33.8 GM/DL 32.2-35.5 vkjh=031) RED CELL DISTRIBUTION WIDTH (BEAKER) (test 13.5 % 11.7-14.4 hufw=088) PLATELET COUNT (BEAKER) (test nvyl=978) 260 K/CU MM 150-450 MEAN PLATELET VOLUME (BEAKER) (test jpsp=521) 10.9 fL 9.4-12.3 NUCLEATED RED BLOOD CELLS (BEAKER) (test 0 /100 WBC 0-0 yyjx=796) NEUTROPHILS RELATIVE PERCENT (BEAKER) (test 57 % sqkg=370) LYMPHOCYTES RELATIVE PERCENT (BEAKER) (test 26 % qxzl=977) MONOCYTES RELATIVE PERCENT (BEAKER) (test 16 % hmpc=624) EOSINOPHILS RELATIVE PERCENT (BEAKER) (test 1 % msom=035) BASOPHILS RELATIVE PERCENT (BEAKER) (test 0 % qppf=101) NEUTROPHILS ABSOLUTE COUNT (BEAKER) (test 3.73 K/ L 1.56-6.13 tkwh=355) LYMPHOCYTES ABSOLUTE COUNT (BEAKER) (test 1.73 K/ L 1.18-3.74 gomc=252) MONOCYTES ABSOLUTE COUNT (BEAKER) (test 1.03 K/ L 0.24-0.36 gruf=416) EOSINOPHILS ABSOLUTE COUNT (BEAKER) (test 0.06 K/ L 0.04-0.36 svhx=670) BASOPHILS ABSOLUTE COUNT (BEAKER) (test 0.01 K/ L 0.01-0.08 ebye=102) IMMATURE GRANULOCYTES-RELATIVE PERCENT (BEAKER) 0 % 0-1 (test viwz=3237) CALCIUM, [id number] 05:52:00 Test Item Value Reference Range Comments CALCIUM IONIZED (BEAKER) (test eazq=291) 1.24 mmol/L 1.12-1.27 PH, BLOOD (BEAKER) (test zfeu=4436) 7.40 POCT-GLUCOSE [id number] 22:03:00 Test Item Value Reference Range Comments POC-GLUCOSE METER (BEAKER) 217 mg/dL 70-[address] [facility] [address] [facility] (test iyjr=8817) [facility] [address] POCT-GLUCOSE [id number] 17:53:00 Test Item Value Reference Range Comments POC-GLUCOSE METER (BEAKER) 252 mg/dL 70-110 TESTED AT [place] [id number] [facility] (test spqw=4934) [facility] [address] RAD, ABDOMEN/KUB, 1 VIEW [id number] 15:31:00Reason for exam:->nauseaFINAL REPORT EXAM: Frontal chest radiograph HISTORY PROVIDED: Nausea COMPARISON: None available IMPRESSION:Multiple external lines projecting over the abdomen limit evaluation . Within this limitation, the bowel gas pattern is nonspecific. While no definite free air is seen, this examination is insensitive for the detection of free air. There is a moderate amount of stool within the colon. No acute osseous abnormality. Degenerative changes of the spine are noted. Surgical clips are seen in the right upper quadrant. Signed: Gurmeet Velazco MDReport Verified Date/Time: 07/30/2018 15:31:29 Reading Location: [facility] Women Electronically signed by: GURMEET VELAZCO on 03:31 PMPOCT-GLUCOSE [id number] 12:34:00 Test Item Value Reference Range Comments POC-GLUCOSE METER (BEAKER) 244 mg/dL 70-110 TESTED AT [address] (test ipen=5518) [facility] [address] POCT-GLUCOSE [id number] 09:16:00 Test Item Value Reference Range Comments POC-GLUCOSE METER (BEAKER) 237 mg/dL 70-110 TESTED AT [address] (test feoe=7064) [facility] [address] CALCIUM, [id number] 06:24:00 Test Item Value Reference Range Comments CALCIUM IONIZED (BEAKER) (test ledy=677) 1.22 mmol/L 1.12-1.27 PH, BLOOD (BEAKER) (test vydf=8102) 7.39 [id number] 05:34:00 Test Item Value Reference Range Comments PHOSPHORUS (BEAKER) (test dtiy=913) 2.4 mg/dL 2.3-4.7 [id number] 05:34:00 Test Item Value Reference Range Comments MAGNESIUM (BEAKER) (test otcr=901) 1.5 mg/dL 1.6-2.6 BASIC METABOLIC [id number] 05:34:00 Test Item Value Reference Range Comments SODIUM (BEAKER) (test 134 meq/L 136-145 jlto=694) POTASSIUM (BEAKER) (test 4.2 meq/L 3.5-5.1 twzr=468) CHLORIDE (BEAKER) (test 103 meq/L 98-107 obai=182) CO2 (BEAKER) (test 25 meq/L 22-29 qyzi=775) BLOOD UREA NITROGEN 22 mg/dL 7-21 (BEAKER) (test xetn=958) CREATININE (BEAKER) (test 0.82 mg/dL 0.57-1.25 ptru=193) GLUCOSE RANDOM (BEAKER) 210 mg/dL 70-105 (test mhnh=281) CALCIUM (BEAKER) (test 9.4 mg/dL 8.4-10.2 vjwa=537) EGFR (BEAKER) (test 68 mL/min/1.73 sq m ESTIMATED GFR IS NOT ghei=8916) ACCURATE CREATININE CLEARANCE IN PREDICTING GLOMERULAR FILTRATION RATE. ESTIMATED GFR IS NOT APPLICABLE FOR DIALYSIS PATIENTS. CBC W/PLT COUNT & AUTO [id number] 05:27:00 Test Item Value Reference Range Comments WHITE BLOOD CELL COUNT (BEAKER) (test jipc=886) 8.6 K/ L 3.5-10.5 RED BLOOD CELL COUNT (BEAKER) (test hswj=884) 2.67 M/ L 3.93-5.22 HEMOGLOBIN (BEAKER) (test woww=514) 10.4 GM/DL 11.2-15.7 HEMATOCRIT (BEAKER) (test rvrz=769) 31.1 % 34.1-44.9 MEAN CORPUSCULAR VOLUME (BEAKER) (test refz=728) 116.5 fL 79.4-94.8 MEAN CORPUSCULAR HEMOGLOBIN (BEAKER) (test 39.0 pg 25.6-32.2 zgzu=843) MEAN CORPUSCULAR HEMOGLOBIN CONC (BEAKER) (test 33.4 GM/DL 32.2-35.5 bxzr=659) RED CELL DISTRIBUTION WIDTH (BEAKER) (test 14.1 % 11.7-14.4 cppo=067) PLATELET COUNT (BEAKER) (test umgo=315) 269 K/CU MM 150-450 MEAN PLATELET VOLUME (BEAKER) (test orkp=149) 10.6 fL 9.4-12.3 NUCLEATED RED BLOOD CELLS (BEAKER) (test 0 /100 WBC 0-0 cmcc=420) NEUTROPHILS RELATIVE PERCENT (BEAKER) (test 62 % pevt=151) LYMPHOCYTES RELATIVE PERCENT (BEAKER) (test 23 % pvqx=019) MONOCYTES RELATIVE PERCENT (BEAKER) (test 14 % nwiq=650) EOSINOPHILS RELATIVE PERCENT (BEAKER) (test 1 % xzuz=418) BASOPHILS RELATIVE PERCENT (BEAKER) (test 1 % iybh=959) NEUTROPHILS ABSOLUTE COUNT (BEAKER) (test 5.34 K/ L 1.56-6.13 pexu=797) LYMPHOCYTES ABSOLUTE COUNT (BEAKER) (test 1.95 K/ L 1.18-3.74 zlwi=333) MONOCYTES ABSOLUTE COUNT (BEAKER) (test 1.18 K/ L 0.24-0.36 xxgr=263) EOSINOPHILS ABSOLUTE COUNT (BEAKER) (test 0.05 K/ L 0.04-0.36 vjmg=653) BASOPHILS ABSOLUTE COUNT (BEAKER) (test 0.04 K/ L 0.01-0.08 hcfq=699) IMMATURE GRANULOCYTES-RELATIVE PERCENT (BEAKER) 1 % 0-1 (test pqsu=6752) POCT-GLUCOSE [id number] 21:42:00 Test Item Value Reference Range Comments POC-GLUCOSE METER (BEAKER) 186 mg/dL 70-110 TESTED AT [address] (test mdsr=8538) [facility] [address] POCT-GLUCOSE [id number] 18:04:00 Test Item Value Reference Range Comments POC-GLUCOSE METER (BEAKER) 162 mg/dL 70-110 TESTED AT [address] (test jxlk=2097) [facility] [address] POCT-GLUCOSE [id number] 13:39:00 Test Item Value Reference Range Comments POC-GLUCOSE METER (BEAKER) 109 mg/dL 70-110 TESTED AT [address] (test ndvy=7289) [facility] [address] POCT-GLUCOSE [id number] 13:39:00 Test Item Value Reference Range Comments POC-GLUCOSE METER (BEAKER) 169 mg/dL 70-110 TESTED AT [address] (test lgeh=3503) [facility] [address] POCT-GLUCOSE [id number] 13:39:00 Test Item Value Reference Range Comments POC-GLUCOSE METER (BEAKER) 202 mg/dL 70-110 TESTED AT [address] (test yubk=6441) [facility] [address] POCT-GLUCOSE [id number] 12:28:00 Test Item Value Reference Range Comments POC-GLUCOSE METER (BEAKER) 175 mg/dL 70-110 TESTED AT [address] (test xczq=8817) [place] [id number] POCT-GLUCOSE [id number] 10:45:00 Test Item Value Reference Range Comments POC-GLUCOSE METER (BEAKER) 181 mg/dL 70-[address] [facility] [address] [facility] (test blmb=1335) [facility] [address] POCT-GLUCOSE [id number] 09:08:00 Test Item Value Reference Range Comments POC-GLUCOSE METER (BEAKER) 90 mg/dL 70-110 TESTED AT [place] [id number] [facility] [place] (test teyt=9529) [facility] [address] POCT-GLUCOSE [id number] 09:08:00 Test Item Value Reference Range Comments POC-GLUCOSE METER (BEAKER) 78 mg/dL 70-110 TESTED AT [address] (test ryps=1273) [facility] [address] RAD, CHEST, 1 VIEW, NON [id number] 07:37:00Reason for exam:->POST OPShould this be performed at the bedside?->YesFINAL REPORT CLINICAL HISTORY: POST OP TECHNIQUE: 1 view of the chest. COMPARISON: IMPRESSION: There are increased bilateral airspace opacities with suspected trace bilateral pleural effusions. The cardiomediastinal silhouette is magnified by technique. Signed: Annamaria Vargas MDReport Verified Date/Time: 07/29/2018 07:37:56 Reading Location: [facility] Radiology Reading Room [id number] 07:21:00 Test Item Value Reference Range Comments PHOSPHORUS (BEAKER) (test hwlp=353) 2.9 mg/dL 2.3-4.7 [id number] 07:21:00 Test Item Value Reference Range Comments MAGNESIUM (BEAKER) (test cbiv=117) 2.0 mg/dL 1.6-2.6 BASIC METABOLIC [id number] 07:21:00 Test Item Value Reference Range Comments SODIUM (BEAKER) (test 135 meq/L 136-145 abqf=694) POTASSIUM (BEAKER) (test 4.4 meq/L 3.5-5.1 hdxe=259) CHLORIDE (BEAKER) (test 107 meq/L 98-107 guaf=100) CO2 (BEAKER) (test 21 meq/L 22-29 iynk=979) BLOOD UREA NITROGEN 32 mg/dL 7-21 (BEAKER) (test dsyd=645) CREATININE (BEAKER) (test 0.80 mg/dL 0.57-1.25 guen=307) GLUCOSE RANDOM (BEAKER) 92 mg/dL 70-105 (test drvu=941) CALCIUM (BEAKER) (test 9.2 mg/dL 8.4-10.2 uzry=818) EGFR (BEAKER) (test 70 mL/min/1.73 sq m ESTIMATED GFR IS NOT khrp=6582) ACCURATE CREATININE CLEARANCE IN PREDICTING GLOMERULAR FILTRATION RATE. ESTIMATED GFR IS NOT APPLICABLE FOR DIALYSIS PATIENTS. BLOOD GAS, [id number] 06:00:00 Test Item Value Reference Range Comments PH ARTERIAL (BEAKER) (test jfwa=416) 7.42 7.35-7.45 PCO2 ARTERIAL (BEAKER) (test onzl=024) 34 mmHg 35-45 PO2 ARTERIAL (BEAKER) (test umag=858) 130 mmHg 80-90 O2 SATURATION ARTERIAL (BEAKER) (test cyyz=832) 98.7 % 96.0-97.0 HCO3 ARTERIAL (BEAKER) (test hatl=299) 22 mmol/L 21-29 BASE EXCESS ARTERIAL (BEAKER) (test nfkm=534) -2.1 mmol/L -2.0-3.0 PATIENT TEMPERATURE (BEAKER) (test beov=9283) 36.5 C FIO2 (BEAKER) (test ofut=3281) 44.0 % CBC W/PLT COUNT & AUTO [id number] 04:44:00 Test Item Value Reference Range Comments WHITE BLOOD CELL COUNT (BEAKER) (test gump=801) 9.2 K/ L 3.5-10.5 RED BLOOD CELL COUNT (BEAKER) (test kvul=592) 2.79 M/ L 3.93-5.22 HEMOGLOBIN (BEAKER) (test bdjk=686) 10.9 GM/DL 11.2-15.7 HEMATOCRIT (BEAKER) (test hqmq=651) 32.0 % 34.1-44.9 MEAN CORPUSCULAR VOLUME (BEAKER) (test qyen=244) 114.7 fL 79.4-94.8 MEAN CORPUSCULAR HEMOGLOBIN (BEAKER) (test 39.1 pg 25.6-32.2 dnjr=208) MEAN CORPUSCULAR HEMOGLOBIN CONC (BEAKER) (test 34.1 GM/DL 32.2-35.5 gfhq=003) RED CELL DISTRIBUTION WIDTH (BEAKER) (test 13.8 % 11.7-14.4 rhax=793) PLATELET COUNT (BEAKER) (test xfvo=667) 292 K/CU MM 150-450 MEAN PLATELET VOLUME (BEAKER) (test cqou=179) 10.4 fL 9.4-12.3 NUCLEATED RED BLOOD CELLS (BEAKER) (test 0 /100 WBC 0-0 wkva=230) NEUTROPHILS RELATIVE PERCENT (BEAKER) (test 77 % phvj=153) LYMPHOCYTES RELATIVE PERCENT (BEAKER) (test 11 % lbck=632) MONOCYTES RELATIVE PERCENT (BEAKER) (test 12 % yvdc=487) EOSINOPHILS RELATIVE PERCENT (BEAKER) (test 0 % pfat=728) BASOPHILS RELATIVE PERCENT (BEAKER) (test 0 % snpe=954) NEUTROPHILS ABSOLUTE COUNT (BEAKER) (test 7.06 K/ L 1.56-6.13 wijj=044) LYMPHOCYTES ABSOLUTE COUNT (BEAKER) (test 1.03 K/ L 1.18-3.74 oeph=359) MONOCYTES ABSOLUTE COUNT (BEAKER) (test 1.06 K/ L 0.24-0.36 cato=957) EOSINOPHILS ABSOLUTE COUNT (BEAKER) (test 0.01 K/ L 0.04-0.36 qdvk=849) BASOPHILS ABSOLUTE COUNT (BEAKER) (test 0.02 K/ L 0.01-0.08 pytk=763) IMMATURE GRANULOCYTES-RELATIVE PERCENT (BEAKER) 0 % 0-1 (test moqb=6438) BLOOD GAS, [id number] 04:28:00 Test Item Value Reference Range Comments PH ARTERIAL (BEAKER) (test idez=086) 7.42 7.35-7.45 PCO2 ARTERIAL (BEAKER) (test vdtf=291) 37 mmHg 35-45 PO2 ARTERIAL (BEAKER) (test ogyg=361) 62 mmHg 80-90 O2 SATURATION ARTERIAL (BEAKER) (test sbco=635) 92.8 % 96.0-97.0 HCO3 ARTERIAL (BEAKER) (test mhel=562) 23 mmol/L 21-29 BASE EXCESS ARTERIAL (BEAKER) (test uyut=024) -1.0 mmol/L -2.0-3.0 PATIENT TEMPERATURE (BEAKER) (test xixb=2633) 36.5 C FIO2 (BEAKER) (test bneq=2649) 36.0 % CALCIUM, [id number] 04:27:00 Test Item Value Reference Range Comments CALCIUM IONIZED (BEAKER) (test acwh=397) 1.22 mmol/L 1.12-1.27 PH, BLOOD (BEAKER) (test zrvl=1636) 7.41 POCT-GLUCOSE [id number] 01:35:00 Test Item Value Reference Range Comments POC-GLUCOSE METER (BEAKER) 220 mg/dL 70-110 TESTED AT [address] (test mnhz=5936) [facility] [address] POCT-GLUCOSE [id number] 01:35:00 Test Item Value Reference Range Comments POC-GLUCOSE METER (BEAKER) 258 mg/dL 70-110 TESTED AT [address] (test zakc=6815) [facility] [address] POCT-GLUCOSE [id number] 01:35:00 Test Item Value Reference Range Comments POC-GLUCOSE METER (BEAKER) 263 mg/dL 70-110 TESTED AT [address] (test cjal=8571) [facility] [address] BLOOD GAS, [id number] 01:24:00 Test Item Value Reference Range Comments PH ARTERIAL (BEAKER) (test atmx=107) 7.44 7.35-7.45 PCO2 ARTERIAL (BEAKER) (test tjwa=560) 31 mmHg 35-45 PO2 ARTERIAL (BEAKER) (test wvmj=121) 97 mmHg 80-90 O2 SATURATION ARTERIAL (BEAKER) (test cmxq=856) 97.8 % 96.0-97.0 HCO3 ARTERIAL (BEAKER) (test bjvp=470) 21 mmol/L 21-29 BASE EXCESS ARTERIAL (BEAKER) (test ppvt=507) -2.8 mmol/L -2.0-3.0 PATIENT TEMPERATURE (BEAKER) (test horu=1445) 36.4 C FIO2 (BEAKER) (test ezes=5415) 36.0 % SODIUM NA-STAT [id number] 01:24:00 Test Item Value Reference Range Comments SODIUM (BEAKER) (test yglp=894) 134 meq/L 135-148 GLUCOSE-STAT [id number] 01:24:00 Test Item Value Reference Range Comments GLUCOSE RANDOM (BEAKER) (test ovnu=471) 195 mg/dL 70-110 HGB/HCT (H&H) - STAT [id number] 01:24:00 Test Item Value Reference Range Comments HEMOGLOBIN (BEAKER) (test gjrr=859) 11.8 g/dL 12.0-15.0 HEMATOCRIT (BEAKER) (test alut=904) 35.0 % 36.0-45.0 POTASSIUM-STAT [id number] 01:22:00 Test Item Value Reference Range Comments POTASSIUM (BEAKER) (test zclm=049) 4.9 meq/L 3.6-5.5 POCT-GLUCOSE [id number] 22:27:00 Test Item Value Reference Range Comments POC-GLUCOSE METER (BEAKER) 235 mg/dL 70-[address] [facility] [address] [facility] [place] (test ghjt=3437) [facility] [address] LACTIC ACID, [id number] 21:01:00 Test Item Value Reference Range Comments LACTATE BLOOD ARTERIAL (2) 0.9 mmol/L 0.5-2.2 Specimen slightly hemolyzed (BEAKER) (test bjuv=3793) [id number] 20:58:00 Test Item Value Reference Range Comments MAGNESIUM (BEAKER) (test 2.4 mg/dL 1.6-2.6 Specimen slightly hemolyzed muzs=895) BLOOD GAS, [id number] 20:23:00 Test Item Value Reference Range Comments PH ARTERIAL (BEAKER) (test lahk=657) 7.35 7.35-7.45 PCO2 ARTERIAL (BEAKER) (test fifz=379) 42 mmHg 35-45 PO2 ARTERIAL (BEAKER) (test uise=896) 89 mmHg 80-90 O2 SATURATION ARTERIAL (BEAKER) (test eycs=508) 96.7 % 96.0-97.0 HCO3 ARTERIAL (BEAKER) (test kood=172) 23 mmol/L 21-29 BASE EXCESS ARTERIAL (BEAKER) (test jmmu=805) -2.9 mmol/L -2.0-3.0 PATIENT TEMPERATURE (BEAKER) (test wtzw=4697) 36.4 C FIO2 (BEAKER) (test xwsr=6601) 26.0 % GLUCOSE-STAT [id number] 20:23:00 Test Item Value Reference Range Comments GLUCOSE RANDOM (BEAKER) (test qdcm=643) 223 mg/dL 70-110 SODIUM NA-STAT [id number] 20:21:00 Test Item Value Reference Range Comments SODIUM (BEAKER) (test wjed=700) 136 meq/L 135-148 POTASSIUM-STAT [id number] 20:21:00 Test Item Value Reference Range Comments POTASSIUM (BEAKER) (test fmtt=477) 4.1 meq/L 3.6-5.5 HGB/HCT (H&H) - STAT [id number] 20:21:00 Test Item Value Reference Range Comments HEMOGLOBIN (BEAKER) (test usjt=449) 12.2 g/dL 12.0-15.0 HEMATOCRIT (BEAKER) (test ahtc=505) 36.0 % 36.0-45.0 CALCIUM, [id number] 20:21:00 Test Item Value Reference Range Comments CALCIUM IONIZED (BEAKER) (test fabz=631) 1.25 mmol/L 1.12-1.27 PH, BLOOD (BEAKER) (test nnen=1111) 7.34 RAD, CHEST, 1 VIEW, NON [id number] 18:36:00Reason for exam:->POST OPShould this be performed at the bedside?->YesFINAL REPORT Portable chest. HISTORY: Postoperative. Comparison study: None available. FINDINGS: The cardiac size is enlarged. There are increased interstitial markings with atelectasis or consolidation of the left lung base and blunting of the left costophrenic angle. No pneumothorax is noted. Degenerative changes are seen. Cholecystectomy clips are noted. IMPRESSION: Cardiomegaly with interstitial markings and atelectasis or consolidation in the left lung base. In the right clinical setting, a superimposed infection would be difficult to exclude. Clinical correlation and short term imaging follow-up could be made to exclude other etiologies. Signed: Gary Gonzalez MDReport Verified Date/Time: 07/28/2018 18:36:16 Reading Location: [address] Consult Reading Room POCT-GLUCOSE [id number] 16:38:00 Test Item Value Reference Range Comments POC-GLUCOSE METER (BEAKER) 215 mg/dL 70-[address] [facility] [address] (test rhpx=1928) [facility] [address] [id number] 15:42:00 Test Item Value Reference Range Comments PHOSPHORUS (BEAKER) (test fszu=273) 3.5 mg/dL 2.3-4.7 [id number] 15:42:00 Test Item Value Reference Range Comments MAGNESIUM (BEAKER) (test hkkw=705) 1.3 mg/dL 1.6-2.6 BASIC METABOLIC [id number] 15:42:00 Test Item Value Reference Range Comments SODIUM (BEAKER) (test 135 meq/L 136-145 tmie=988) POTASSIUM (BEAKER) (test 4.3 meq/L 3.5-5.1 rgkq=865) CHLORIDE (BEAKER) (test 107 meq/L 98-107 ztzq=723) CO2 (BEAKER) (test 16 meq/L 22-29 qili=084) BLOOD UREA NITROGEN 28 mg/dL 7-21 (BEAKER) (test gudr=413) CREATININE (BEAKER) (test 0.99 mg/dL 0.57-1.25 vicf=684) GLUCOSE RANDOM (BEAKER) 250 mg/dL 70-105 (test smcn=106) CALCIUM (BEAKER) (test 9.2 mg/dL 8.4-10.2 mdif=561) EGFR (BEAKER) (test 55 mL/min/1.73 sq m ESTIMATED GFR IS NOT kmql=2763) ACCURATE CREATININE CLEARANCE IN PREDICTING GLOMERULAR FILTRATION RATE. ESTIMATED GFR IS NOT APPLICABLE FOR DIALYSIS PATIENTS. LACTIC ACID, [id number] 15:38:00 Test Item Value Reference Range Comments LACTATE BLOOD ARTERIAL (2) 1.3 mmol/L 0.5-2.2 Specimen slightly hemolyzed (BEAKER) (test jbxe=6731) [id number] 15:36:00 Test Item Value Reference Range Comments PROTIME (BEAKER) (test ufuo=797) 15.5 seconds 11.7-14.7 INR (BEAKER) (test cnls=445) 1.3 <=5.9 PARTIAL THROMBOPLASTIN TIME (BEAKER) (test 24.3 seconds 22.5-36.0 xvmx=189) RECOMMENDED COUMADIN/WARFARIN INR THERAPY RANGESSTANDARD DOSE: 2.0 - 3.0 Includes: PROPHYLAXIS forvenous thrombosis, systemic embolization; TREATMENT for venous thrombosis and/or pulmonary embolus.HIGH RISK: Target INR is 2.5-3.5 for patients with mechanical heart valves.CBC W/PLT COUNT & AUTO [id number] 15:34:00 Test Item Value Reference Range Comments WHITE BLOOD CELL COUNT (BEAKER) (test zjxk=574) 10.1 K/ L 3.5-10.5 RED BLOOD CELL COUNT (BEAKER) (test yqex=414) 3.02 M/ L 3.93-5.22 HEMOGLOBIN (BEAKER) (test vycf=465) 11.8 GM/DL 11.2-15.7 HEMATOCRIT (BEAKER) (test oxov=347) 34.7 % 34.1-44.9 MEAN CORPUSCULAR VOLUME (BEAKER) (test zumq=241) 114.9 fL 79.4-94.8 MEAN CORPUSCULAR HEMOGLOBIN (BEAKER) (test 39.1 pg 25.6-32.2 kyyj=178) MEAN CORPUSCULAR HEMOGLOBIN CONC (BEAKER) (test 34.0 GM/DL 32.2-35.5 vixk=334) RED CELL DISTRIBUTION WIDTH (BEAKER) (test 14.2 % 11.7-14.4 jqtm=035) PLATELET COUNT (BEAKER) (test vdku=099) 302 K/CU MM 150-450 MEAN PLATELET VOLUME (BEAKER) (test olky=350) 10.3 fL 9.4-12.3 NUCLEATED RED BLOOD CELLS (BEAKER) (test 0 /100 WBC 0-0 yjnt=409) NEUTROPHILS RELATIVE PERCENT (BEAKER) (test 63 % mgwq=566) LYMPHOCYTES RELATIVE PERCENT (BEAKER) (test 25 % tztp=977) MONOCYTES RELATIVE PERCENT (BEAKER) (test 9 % rlyk=510) EOSINOPHILS RELATIVE PERCENT (BEAKER) (test 1 % xdsu=310) BASOPHILS RELATIVE PERCENT (BEAKER) (test 0 % cdhf=018) NEUTROPHILS ABSOLUTE COUNT (BEAKER) (test 6.35 K/ L 1.56-6.13 laas=980) LYMPHOCYTES ABSOLUTE COUNT (BEAKER) (test 2.54 K/ L 1.18-3.74 zihn=032) MONOCYTES ABSOLUTE COUNT (BEAKER) (test 0.91 K/ L 0.24-0.36 gjfo=388) EOSINOPHILS ABSOLUTE COUNT (BEAKER) (test 0.10 K/ L 0.04-0.36 snpo=710) BASOPHILS ABSOLUTE COUNT (BEAKER) (test 0.03 K/ L 0.01-0.08 zxwq=142) IMMATURE GRANULOCYTES-RELATIVE PERCENT (BEAKER) 2 % 0-1 (test zqmi=9800) GLUCOSE-STAT [id number] 15:33:00 Test Item Value Reference Range Comments GLUCOSE RANDOM (BEAKER) (test yuvq=695) 231 mg/dL 70-110 BLOOD GAS, [id number] 15:31:00 Test Item Value Reference Range Comments PH ARTERIAL (BEAKER) (test atfs=312) 7.48 7.35-7.45 PCO2 ARTERIAL (BEAKER) (test ouyz=392) 25 mmHg 35-45 PO2 ARTERIAL (BEAKER) (test pkrg=157) 126 mmHg 80-90 O2 SATURATION ARTERIAL (BEAKER) (test lgrv=938) 98.8 % 96.0-97.0 HCO3 ARTERIAL (BEAKER) (test shhf=901) 18 mmol/L 21-29 BASE EXCESS ARTERIAL (BEAKER) (test nbnx=429) -3.9 mmol/L -2.0-3.0 PATIENT TEMPERATURE (BEAKER) (test zwmn=0756) 36.2 C FIO2 (BEAKER) (test tuda=0526) 44.0 % SODIUM NA-STAT [id number] 15:31:00 Test Item Value Reference Range Comments SODIUM (BEAKER) (test ltji=956) 135 meq/L 135-148 POTASSIUM-STAT [id number] 15:31:00 Test Item Value Reference Range Comments POTASSIUM (BEAKER) (test zpqd=735) 4.0 meq/L 3.6-5.5 HGB/HCT (H&H) - STAT [id number] 15:31:00 Test Item Value Reference Range Comments HEMOGLOBIN (BEAKER) (test xdsz=120) 12.2 g/dL 12.0-15.0 HEMATOCRIT (BEAKER) (test xowo=948) 36.0 % 36.0-45.0 [id number] 08:00:00 Test Item Value Reference Range Comments MAGNESIUM (BEAKER) (test eyje=840) 1.9 mg/dL 1.6-2.6 BASIC METABOLIC [id number] 08:00:00 Test Item Value Reference Range Comments SODIUM (BEAKER) (test 136 meq/L 136-145 bnuo=407) POTASSIUM (BEAKER) (test 4.5 meq/L 3.5-5.1 woxo=003) CHLORIDE (BEAKER) (test 106 meq/L 98-107 doru=579) CO2 (BEAKER) (test 22 meq/L 22-29 hjid=419) BLOOD UREA NITROGEN 29 mg/dL 7-21 (BEAKER) (test jrto=688) CREATININE (BEAKER) (test 0.85 mg/dL 0.57-1.25 zvae=061) GLUCOSE RANDOM (BEAKER) 204 mg/dL 70-105 (test yxas=548) CALCIUM (BEAKER) (test 10.0 mg/dL 8.4-10.2 fbla=122) EGFR (BEAKER) (test 65 mL/min/1.73 sq m ESTIMATED GFR IS NOT rsmc=6822) ACCURATE CREATININE CLEARANCE IN PREDICTING GLOMERULAR FILTRATION RATE. ESTIMATED GFR IS NOT APPLICABLE FOR DIALYSIS PATIENTS. CBC W/PLT COUNT & AUTO [id number] 07:23:00 Test Item Value Reference Range Comments WHITE BLOOD CELL COUNT (BEAKER) (test utkh=919) 5.3 K/ L 3.5-10.5 RED BLOOD CELL COUNT (BEAKER) (test qepn=726) 3.33 M/ L 3.93-5.22 HEMOGLOBIN (BEAKER) (test ejbd=045) 12.9 GM/DL 11.2-15.7 HEMATOCRIT (BEAKER) (test djcg=482) 38.6 % 34.1-44.9 MEAN CORPUSCULAR VOLUME (BEAKER) (test kzdk=783) 115.9 fL 79.4-94.8 MEAN CORPUSCULAR HEMOGLOBIN (BEAKER) (test 38.7 pg 25.6-32.2 mgko=925) MEAN CORPUSCULAR HEMOGLOBIN CONC (BEAKER) (test 33.4 GM/DL 32.2-35.5 adik=784) RED CELL DISTRIBUTION WIDTH (BEAKER) (test 14.6 % 11.7-14.4 rcro=572) PLATELET COUNT (BEAKER) (test ishl=190) 335 K/CU MM 150-450 MEAN PLATELET VOLUME (BEAKER) (test yolo=412) 10.2 fL 9.4-12.3 NUCLEATED RED BLOOD CELLS (BEAKER) (test 0 /100 WBC 0-0 hbah=939) NEUTROPHILS RELATIVE PERCENT (BEAKER) (test 43 % shqq=570) LYMPHOCYTES RELATIVE PERCENT (BEAKER) (test 40 % amnc=931) MONOCYTES RELATIVE PERCENT (BEAKER) (test 14 % yuhf=767) EOSINOPHILS RELATIVE PERCENT (BEAKER) (test 2 % sghs=352) BASOPHILS RELATIVE PERCENT (BEAKER) (test 1 % hfbm=063) NEUTROPHILS ABSOLUTE COUNT (BEAKER) (test 2.28 K/ L 1.56-6.13 zwen=271) LYMPHOCYTES ABSOLUTE COUNT (BEAKER) (test 2.10 K/ L 1.18-3.74 vfta=465) MONOCYTES ABSOLUTE COUNT (BEAKER) (test 0.71 K/ L 0.24-0.36 xcmr=652) EOSINOPHILS ABSOLUTE COUNT (BEAKER) (test 0.11 K/ L 0.04-0.36 kdhg=235) BASOPHILS ABSOLUTE COUNT (BEAKER) (test 0.04 K/ L 0.01-0.08 rwap=801) IMMATURE GRANULOCYTES-RELATIVE PERCENT (BEAKER) 0 % 0-1 (test pyqo=6372) HEMOGLOBIN [id number] 23:04:00 Test Item Value Reference Range Comments HEMOGLOBIN A1C (BEAKER) (test pnqz=137) 7.7 % 4.3-6.1 POCT-GLUCOSE [id number] 23:03:00 Test Item Value Reference Range Comments POC-GLUCOSE METER (BEAKER) 261 mg/dL 70-[address] [facility] [address] [facility] (test zidv=1630) [facility] [address] COMPREHENSIVE METABOLIC [id number] 21:58:00 Test Item Value Reference Range Comments TOTAL PROTEIN (BEAKER) 7.2 gm/dL 6.0-8.3 Specimen slightly (test zwyi=901) hemolyzed ALBUMIN (BEAKER) (test 3.4 g/dL 3.5-5.0 Specimen slightly ultk=1789) hemolyzed ALKALINE PHOSPHATASE 74 U/L 40-150 (BEAKER) (test njdo=850) BILIRUBIN TOTAL (BEAKER) 0.6 mg/dL 0.2-1.2 Specimen slightly (test ztea=631) hemolyzed SODIUM (BEAKER) (test 136 meq/L 136-145 qtah=716) POTASSIUM (BEAKER) (test 4.6 meq/L 3.5-5.1 Specimen slightly kxju=627) hemolyzed CHLORIDE (BEAKER) (test 104 meq/L 98-107 noir=274) CO2 (BEAKER) (test 23 meq/L 22-29 vdmc=966) BLOOD UREA NITROGEN 33 mg/dL 7-21 (BEAKER) (test iyon=116) CREATININE (BEAKER) (test 0.90 mg/dL 0.57-1.25 Specimen slightly nopw=671) hemolyzed GLUCOSE RANDOM (BEAKER) 219 mg/dL 70-105 (test oszn=989) CALCIUM (BEAKER) (test 9.5 mg/dL 8.4-10.2 vvfi=215) AST (SGOT) (BEAKER) (test 29 U/L 5-34 Specimen slightly qord=838) hemolyzed ALT (SGPT) (BEAKER) (test 20 U/L 6-55 Specimen slightly swhd=101) hemolyzed EGFR (BEAKER) (test 61 mL/min/1.73 sq m ESTIMATED GFR IS NOT kaay=2667) ACCURATE CREATININE CLEARANCE IN PREDICTING GLOMERULAR FILTRATION RATE. ESTIMATED GFR IS NOT APPLICABLE FOR DIALYSIS PATIENTS. CBC W/PLT COUNT & AUTO [id number] 21:33:00 Test Item Value Reference Range Comments WHITE BLOOD CELL COUNT (BEAKER) (test ynsu=994) 6.1 K/ L 3.5-10.5 RED BLOOD CELL COUNT (BEAKER) (test bhhm=177) 3.15 M/ L 3.93-5.22 HEMOGLOBIN (BEAKER) (test qpqd=102) 12.4 GM/DL 11.2-15.7 HEMATOCRIT (BEAKER) (test bvmz=564) 36.5 % 34.1-44.9 MEAN CORPUSCULAR VOLUME (BEAKER) (test fklc=644) 115.9 fL 79.4-94.8 MEAN CORPUSCULAR HEMOGLOBIN (BEAKER) (test 39.4 pg 25.6-32.2 reeb=993) MEAN CORPUSCULAR HEMOGLOBIN CONC (BEAKER) (test 34.0 GM/DL 32.2-35.5 pspg=177) RED CELL DISTRIBUTION WIDTH (BEAKER) (test 14.7 % 11.7-14.4 jbml=869) PLATELET COUNT (BEAKER) (test obrg=414) 381 K/CU MM 150-450 MEAN PLATELET VOLUME (BEAKER) (test kbxb=529) 10.5 fL 9.4-12.3 NUCLEATED RED BLOOD CELLS (BEAKER) (test 0 /100 WBC 0-0 xhjm=326) NEUTROPHILS RELATIVE PERCENT (BEAKER) (test 54 % xmkb=959) LYMPHOCYTES RELATIVE PERCENT (BEAKER) (test 32 % ctdb=630) MONOCYTES RELATIVE PERCENT (BEAKER) (test 12 % iblj=649) EOSINOPHILS RELATIVE PERCENT (BEAKER) (test 1 % yjdi=901) BASOPHILS RELATIVE PERCENT (BEAKER) (test 1 % jrde=235) NEUTROPHILS ABSOLUTE COUNT (BEAKER) (test 3.31 K/ L 1.56-6.13 itib=525) LYMPHOCYTES ABSOLUTE COUNT (BEAKER) (test 1.97 K/ L 1.18-3.74 lqfa=277) MONOCYTES ABSOLUTE COUNT (BEAKER) (test 0.72 K/ L 0.24-0.36 yswo=334) EOSINOPHILS ABSOLUTE COUNT (BEAKER) (test 0.08 K/ L 0.04-0.36 usir=162) BASOPHILS ABSOLUTE COUNT (BEAKER) (test 0.03 K/ L 0.01-0.08 updl=553) IMMATURE GRANULOCYTES-RELATIVE PERCENT (BEAKER) 0 % 0-1 (test alrw=3090)
[2019-05-08 15:18] LABS: Absolute Lymphocytes (CBC) 0.9 K/uL (0.7-4.9); Basophils % 0.4 % (0-1.3); Hematocrit 43.5 % (36.0-45.0); Lymphocytes % 16.2 % (15.3-44.8); MPV 9.9 fL (7.6-11.3); RBC Red Blood Cell Count 3.72 M/uL (3.86-4.86)
[2019-05-08] MEDS ORDERED: NA CHLORIDE 0.9% 1,000 ML ONE (15:22)
[2019-05-08] MEDS ORDERED: FAMOTIDINE 20 MG/2 ML VIAL IV ONE (15:22)
--- NOTE | 2019-05-08 15:22 | RAD REPORT ---
EXAM DESCRIPTION: RAD - Chest Single View - 05/08/2019 3:16 pm CLINICAL HISTORY: syncope Chest pain. COMPARISON: Chest Pa And Lat (2 Views) dated 04/04/2019; Chest Pa And Lat (2 Views) dated 06/22/2018; CHEST PA AND LAT 2 VIEW dated 11/27/2011; CHEST PA AND LAT 2 VIEW dated 08/07/2009 FINDINGS: Portable technique limits examination quality. Mild interstitial pulmonary edema. The heart is mildly enlarged in size with sternotomy wires present . No displaced fractures. IMPRESSION: Mild CHF.
[2019-05-08 15:39] LABS: Albumin 3.2 g/dL (3.4-5.0); Bilirubin Direct 0.2 mg/dL (0-0.2); Bilirubin Total 0.6 mg/dL (0.2-1.0); Magnesium 1.8 mg/dL (1.8-2.4); Potassium 4.6 mmol/L (3.5-5.1); Protein, Total 7.7 g/dL (6.4-8.2); Troponin (Emerg Dept Use Only) 0.15 ng/mL (0.0-0.045)
--- NOTE | 2019-05-08 16:11 | EDPHYS ---
Physician Documentation [facility] Name: Arminda Rodriguez Age: 79 yrs Sex: Female : 1940 Arrival Date: 05/08/2019 Time: 14:09 Bed 4 Private MD: ELICIA Physician Jake Espino HPI: 05/07 14:53 This 79 yrs old Female presents to ER via EMS with complaints of staci Nausea/Vomiting/Diarrhea, bradycardia. 14:53 The patient presents to the emergency department with nausea, vomiting, diarrhea, staci abdominal pain, of the right upper quadrant, left upper quadrant, right lower quadrant and left lower quadrant. Onset: The symptoms/episode began/occurred just prior to arrival. Possible causes: unknown. The symptoms are aggravated by nothing. The symptoms are alleviated by nothing. Associated signs and symptoms: The patient has no apparent associated signs or symptoms. Historical: - Allergies: 14:18 Amaryl; em 14:18 ANGIOTENSIN RECEPTOR ANTAGONIST; em 14:18 Augmentin; em 14:18 Byetta; em 14:18 Demerol; em 14:18 Hydrocodone-Acetaminophen; em 14:18 Januvia; em 14:18 Lantus; em 14:18 metformin; em 14:18 Niaspan; em 14:18 QUINOLONES; em 14:18 Qqbrqti-Tgu-Qve Reductase Inhibitors; em 14:18 Tetanus Immune Globulin; em 14:18 Zetia; em 14:18 Amoxicillin; em - PMHx: 14:18 VENTRAL HERNIA; Hyperlipidemia; CAD; Diabetes - NIDDM; Hypertension; CVA; Myocardial em infarction; - Immunization history:: Adult Immunizations up to date. - Social history:: Smoking status: Patient denies any tobacco usage or history of. ROS: 14:54 Constitutional: Negative for fever, chills, and weight loss, Eyes: Negative for injury, staci pain, redness, and discharge, ENT: Negative for injury, pain, and discharge, Neck: Negative for injury, pain, and swelling, Cardiovascular: Negative for chest pain, palpitations, and edema, Respiratory: Negative for shortness of breath, cough, wheezing, and pleuritic chest pain, Back: Negative for injury and pain, : Negative for injury, bleeding, discharge, and swelling, MS/Extremity: Negative for injury and deformity, Skin: Negative for injury, rash, and discoloration, Psych: Negative for depression, anxiety, suicide ideation, homicidal ideation, and hallucinations, Allergy/Immunology: Negative for hives, rash, and allergies, Endocrine: Negative for neck swelling, polydipsia, polyuria, polyphagia, and marked weight changes, Hematologic/Lymphatic: Negative for swollen nodes, abnormal bleeding, and unusual bruising. 14:54 Abdomen/GI: Positive for abdominal pain, nausea and vomiting, diarrhea. 14:54 Neuro: Positive for syncope, weakness. 19:28 Abdomen/GI: Positive for staci Exam: 14:54 Constitutional: This is a well developed, well nourished patient who is awake, alert, staci and in no acute distress. Head/Face: Normocephalic, atraumatic. Eyes: Pupils equal round and reactive to light, extra-ocular motions intact. Lids and lashes normal. Conjunctiva and sclera are non-icteric and not injected. Cornea within normal limits. Periorbital areas with no swelling, redness, or edema. ENT: Nares patent. No nasal discharge, no septal abnormalities noted. Tympanic membranes are normal and external auditory canals are clear. Oropharynx with no redness, swelling, or masses, exudates, or evidence of obstruction, uvula midline. Mucous membranes moist. Neck: Trachea midline, no thyromegaly or masses palpated, and no cervical lymphadenopathy. Supple, full range of motion without nuchal rigidity, or vertebral point tenderness. No Meningismus. Chest/axilla: Normal chest wall appearance and motion. Nontender with no deformity. No lesions are appreciated. Respiratory: Lungs have equal breath sounds bilaterally, clear to auscultation and percussion. No rales, rhonchi or wheezes noted. No increased work of breathing, no retractions or nasal flaring. Back: No spinal tenderness. No costovertebral tenderness. Full range of motion. Female : Normal external genitalia. Skin: Warm, dry with normal turgor. Normal color with no rashes, no lesions, and no evidence of cellulitis. MS/ Extremity: Pulses equal, no cyanosis. Neurovascular intact. Full, normal range of motion. Psych: Awake, alert, with orientation to person, place and time. Behavior, mood, and affect are within normal limits. 14:54 Cardiovascular: Rate: bradycardic, Rhythm: regular, Pulses: Pulses are 4+ in bilateral radial, brachial, femoral, popliteal, posterior tibial and and dorsalis pedis arteries.. Heart sounds: normal, Edema: is not appreciated, JVD: is not appreciated. 14:54 Musculoskeletal/extremity: DVT Exam: no swelling, negative Homans' sign noted on exam, no appreciated bluish discoloration, no erythema, no increased warmth, pain, tenderness. Vital Signs: 14:09 BP 89 / 76; Pulse 41; Resp 18; Temp 97.4; Pulse Ox 98% on R/A; Pain 0/10; em 15:23 BP 113 / 73; Pulse 52; Resp 16 S; Pulse Ox 99% on R/A; aa5 16:33 BP 146 / 78; Pulse 61; Resp 14; Pulse Ox 97% on R/A; Pain 0/10; em 17:28 BP 116 / 97; Pulse 59; Resp 18; Temp 97.4(O); Pulse Ox 100% on R/A; Pain 7/10; em MDM: 14:19 Patient medically screened. [facility] 14:58 Data reviewed: vital signs, nurses notes, lab test result(s), EKG, radiologic studies, [facility] CT scan, plain films. 05/07 14:38 Order name: Basic Metabolic Panel; Complete Time: 15:45 05/07 14:38 Order name: CBC with Diff; Complete Time: 16:56 05/07 14:38 Order name: LFT's; Complete Time: 15:45 05/07 14:38 Order name: Magnesium; Complete Time: 15:45 05/07 14:38 Order name: NT PRO-BNP; Complete Time: 15:45 05/07 14:38 Order name: PT-INR; Complete Time: 15:45 05/07 14:38 Order name: Troponin (emerg Dept Use Only); Complete Time: 15:45 05/07 14:50 Order name: Lipase; Complete Time: 15:45 [facility] 05/07 14:52 Order name: Urine Culture [facility] 05/07 14:53 Order name: Occult Blood [facility] 05/07 14:53 Order name: Stool Culture [facility] 05/07 14:53 Order name: Fecal Leukocyte Stain [facility] 05/07 14:53 Order name: Occult Blood [facility] 05/07 16:17 Order name: CBC Smear Scan; Complete Time: 16:56 [facility] 05/07 14:38 Order name: XRAY Chest (1 view); Complete Time: 15:45 05/07 14:38 Order name: EKG; Complete Time: 14:39 05/07 14:38 Order name: Cardiac monitoring; Complete Time: 15:15 05/07 14:38 Order name: EKG - Nurse/Tech; Complete Time: 15:15 05/07 14:38 Order name: IV Saline Lock; Complete Time: 15:15 05/07 14:38 Order name: Labs collected and sent; Complete Time: 15:15 05/07 15:46 Order name: CT Traumagram (Head C Spine CAP wo con) [facility] 05/07 16:18 Order name: CONS Physician Consult [facility] 05/07 16:39 Order name: CT; Complete Time: 16:56 [facility] 05/07 16:46 Order name: Urine Dipstick--Ancillary (enter results) in 05/07 17:14 Order name: Urine Dipstick-Ancillary; Complete Time: 19:30 [facility] 05/07 14:38 Order name: O2 Per Protocol; Complete Time: 15:15 05/07 14:38 Order name: O2 Sat Monitoring; Complete Time: 15:15 05/07 14:52 Order name: Urine Dipstick-Ancillary (obtain specimen); Complete Time: 16:51 [facility] 05/07 15:22 Order name: Straight Cath - Urine; Complete Time: 16:51 aa5 Administered Medications: Discontinued: NS 0.9% 1000 ml IV at 1 bolus Per protocol; 1000 mL bolus 15:22 Drug: NS 0.9% 1000 ml Route: IV; Rate: 1 bolus; Site: left forearm; aa5 16:30 Follow up: IV Status: Order to discontinue infusion; IV Intake: 300ml em 15:22 Drug: Pepcid 20 mg Route: IVP; Site: left forearm; aa5 16:51 Follow up: Response: No adverse reaction em 17:00 Drug: NS 0.9% 1000 ml Route: IV; Rate: 125 ml/hr; Site: left wrist; em 18:17 Follow up: IV Status: Completed infusion em Disposition: 05/08/19 16:10 Hospitalization ordered by Frederick Gomez for Inpatient Admission. Preliminary diagnosis are Bradycardia, unspecified, Weakness, Unspecified kidney failure, Type 2 diabetes mellitus. - Bed requested for Telemetry/MedSurg (Inpatient). - Status is Inpatient Admission. em - Condition is Fair. - Problem is new. - Symptoms have improved. Signatures: Dispatcher [employer] EDNM Jake Espino MD MD cha Munoz, Edgar, RN RN Marisel Fall RN RN iw Villarreal, Maria ms Nicky Callaway, RN RN aa5 Corrections: (The following items were deleted from the chart) 15:26 14:39 Head Brain Wo Cont+CT.RAD.BRZ ordered. EDNM EDNM 16:13 14:52 Head C Spine CAP W Con+CT.RAD.BRZ ordered. [facility] EDNM 17:03 16:10 Hospitalization Ordered by Frederick Gomez MD for Inpatient Admission. Preliminary ms diagnosis is Bradycardia, unspecified; Weakness; Unspecified kidney failure; Type 2 diabetes mellitus. Bed requested for Telemetry/MedSurg (Inpatient). Status is Inpatient Admission. Condition is Fair. Problem is new. Symptoms have improved. [facility] 18:34 17:03 05/08/2019 16:10 Hospitalization Ordered by Frederick Gomez MD for Inpatient em Admission. Preliminary diagnosis is Bradycardia, unspecified; Weakness; Unspecified kidney failure; Type 2 diabetes mellitus. Bed requested for Telemetry/MedSurg (Inpatient). Status is Inpatient Admission. Condition is Fair. Problem is new. Symptoms have improved. ms
--- NOTE | 2019-05-08 16:11 | ER ---
Nurse's Notes [facility] Name: Arminda Rodriguez Age: 79 yrs Sex: Female : 1940 Arrival Date: 05/08/2019 Time: 14:09 Bed 4 Private MD: Diagnosis: Bradycardia, unspecified;Weakness;Unspecified kidney failure;Type 2 diabetes mellitus Presentation: 05/07 14:09 Chief complaint: EMS states: called out for N/V/D and syncopal episode, was on the em toilet and passed out and became clammy and diaphoretic, on scene HR was in the 30's, gave 0.5 mg atropine IV x 2 and 300 mL, pt awake and alert on arrival, symptoms have improved. Coronavirus screen: The patient has NOT traveled to [place] in the past 14 days. Ebola Screen: Patient negative for fever greater than or equal to 101.5 degrees Fahrenheit, and additional compatible Ebola Virus Disease symptoms Patient denies exposure to infectious person. Patient denies travel to an Ebola-affected area in the 21 days before illness onset. No symptoms or risks identified at this time. Initial Sepsis Screen: Does the patient meet any 2 criteria? No. Patient's initial sepsis screen is negative. Does the patient have a suspected source of infection? No. Patient's initial sepsis screen is negative. Risk Assessment: Do you want to hurt yourself or someone else? Patient reports no desire to harm self or others. 14:09 Method Of Arrival: EMS: [facility] em 14:09 Acuity: GORDO 2 em Historical: - Allergies: 14:18 Amaryl; em 14:18 ANGIOTENSIN RECEPTOR ANTAGONIST; em 14:18 Augmentin; em 14:18 Byetta; em 14:18 Demerol; em 14:18 Hydrocodone-Acetaminophen; em 14:18 Januvia; em 14:18 Lantus; em 14:18 metformin; em 14:18 Niaspan; em 14:18 QUINOLONES; em 14:18 Twpudei-Ccx-Atl Reductase Inhibitors; em 14:18 Tetanus Immune Globulin; em 14:18 Zetia; em 14:18 Amoxicillin; em - PMHx: 14:18 VENTRAL HERNIA; Hyperlipidemia; CAD; Diabetes - NIDDM; Hypertension; CVA; Myocardial em infarction; - Immunization history:: Adult Immunizations up to date. - Social history:: Smoking status: Patient denies any tobacco usage or history of. Screenin:19 Abuse screen: Denies threats or abuse. Nutritional screening: No deficits noted. em Tuberculosis screening: No symptoms or risk factors identified. Fall Risk None identified. Assessment: 14:09 General: Appears in no apparent distress. comfortable, Behavior is calm, cooperative, em Denies fever. Pain: Denies pain. Neuro: Level of Consciousness is awake, alert, obeys commands, Oriented to person, place, time, situation, Appropriate for age Reports a syncopal episode. Cardiovascular: Denies chest pain, lightheadedness, nausea, shortness of breath, Heart tones S1 S2 present Capillary refill < 3 seconds Patient's skin is warm and dry. Rhythm is sinus bradycardia. Respiratory: Airway is patent Respiratory effort is even, unlabored, Respiratory pattern is regular, symmetrical. GI: Abdomen is obese, Bowel sounds present X 4 quads. Reports diarrhea, nausea, vomiting. Derm: Skin is intact, is thin, Skin is pink, warm \T\ dry. Musculoskeletal: Capillary refill < 3 seconds, Range of motion: intact in all extremities. 16:30 Reassessment: Patient appears in no apparent distress at this time. Patient and/or em family updated on plan of care and expected duration. Pain level reassessed. Patient is alert, oriented x 3, equal unlabored respirations, skin warm/dry/pink. Patient denies pain at this time. Patient states feeling better. 17:20 Reassessment: Patient appears in no apparent distress at this time. Patient and/or em family updated on plan of care and expected duration. Pain level reassessed. Patient is alert, oriented x 3, equal unlabored respirations, skin warm/dry/pink. pt reports having neuropathy, rates pain 7/10, provider notified. 18:00 Reassessment: Patient is alert, oriented x 3, equal unlabored respirations, skin aa5 warm/dry/pink. Pt assisted with bedpan, pt voided 200ml. Pt repositioned in bed. . Vital Signs: 14:09 BP 89 / 76; Pulse 41; Resp 18; Temp 97.4; Pulse Ox 98% on R/A; Pain 0/10; em 15:23 BP 113 / 73; Pulse 52; Resp 16 S; Pulse Ox 99% on R/A; aa5 16:33 BP 146 / 78; Pulse 61; Resp 14; Pulse Ox 97% on R/A; Pain 0/10; em 17:28 BP 116 / 97; Pulse 59; Resp 18; Temp 97.4(O); Pulse Ox 100% on R/A; Pain 7/10; em ED Course: 14:09 Patient arrived in ED. em 14:09 Maintain EMS IV. Dressing intact. Good blood return noted. Site clean \T\ dry. Gauge \T\ em site: 22 L wrist. 14:14 Triage completed. em 14:15 EKG done, by ED staff, reviewed by Jake Espino MD. [email or web address] 14:19 Jake Espino MD is Attending Physician. staci 14:19 Arben Peterson, RN is Primary Nurse. em 14:19 Arm band placed on. em 14:20 Patient has correct armband on for positive identification. Placed in gown. Bed in low em position. Call light in reach. monitoring engineer on. Pulse ox on. NIBP on. 15:17 XRAY Chest (1 view) In Process Unspecified. EDMS 16:08 Frederick Gomez MD is Hospitalizing Provider. staci 16:23 CT completed. Patient tolerated procedure well. Patient moved back from CT. bq 16:33 Straight cath inserted, using sterile technique, 16 Fr. Specimen obtained. Returned em clear yellow urine. Patient tolerated well. 18:15 No provider procedures requiring assistance completed. Patient admitted, IV remains in em place. Administered Medications: Discontinued: NS 0.9% 1000 ml IV at 1 bolus Per protocol; 1000 mL bolus 15:22 Drug: NS 0.9% 1000 ml Route: IV; Rate: 1 bolus; Site: left forearm; aa5 16:30 Follow up: IV Status: Order to discontinue infusion; IV Intake: 300ml em 15:22 Drug: Pepcid 20 mg Route: IVP; Site: left forearm; aa5 16:51 Follow up: Response: No adverse reaction em 17:00 Drug: NS 0.9% 1000 ml Route: IV; Rate: 125 ml/hr; Site: left wrist; em 18:17 Follow up: IV Status: Completed infusion em Intake: 16:30 IV: 300ml; Total: 300ml. em Output: 16:30 Urine: 600ml (Straight Cath); Total: 600ml. em Outcome: 16:10 Decision to Hospitalize by Provider. staci 18:15 Admitted to Tele accompanied by tech, family with patient, via stretcher, room 232, em with chart, Report called to LEILA Kuo 18:15 Condition: good 18:15 Instructed on the need for admit, Demonstrated understanding of instructions. 18:34 Patient left the ED. em Signatures: Dispatcher [employer] EDByron Cortes jb Jake Espino MD MD cha Quilty, Betty bq Munoz, Edgar, RN RN em Nicky Callaway, RN RN aa5 Corrections: (The following items were deleted from the chart) 15:51 15:50 EKG done, by ED staff, reviewed by Jake marshall jb1 17:35 15:30 IV Status: Order to discontinue infusion; IV Intake: 300ml em em
[2019-05-08 16:16] LABS: Blood Morphology Comment NOTED (NOT SEEN); Macrocytosis 1+; Platelet Estimate ADEQ; Urine White Blood Cell Casts OK
[2019-05-08] MEDS ORDERED: GLUCAGON 1 MG/VIAL IM PRN (16:21)
[2019-05-08] MEDS ORDERED: D50W 25 GM/50 ML SYRINGE/VIAL IV PRN (16:21)
[2019-05-08] MEDS: INSULIN -REGULAR HUMAN 50 UNIT/0.5 ML ML SQ SCH ×2 (16:30→21:00)
--- NOTE | 2019-05-08 16:37 | RAD REPORT ---
EXAM DESCRIPTION: CT - Head C Spine Cap Wo Con - 05/08/2019 4:23 pm CLINICAL HISTORY: Trauma, head and neck injury. Chest, abdomen and pelvis pain. PAIN COMPARISON: Brain W/Wo Cont dated 06/22/2018 TECHNIQUE: CT head without contrast. CT cervical spine without contrast with coronal and sagittal reformatted images. CT chest, abdomen and pelvis without contrast with coronal and sagittal reformatted images of the spi ne. All CT scans are performed using dose optimization technique as appropriate and may include automated exposure control or mA/KV adjustment according to patient size. FINDINGS: CT HEAD WITHOUT CONTRAST: No intracranial hemorrhage, hydrocephalus or extra-axial fluid collection. Small CSF density collecti on in the left temporal fossa is unchanged, probably a benign arachnoid cyst. Mild periventricular lo w density is present likely chronic microvascular ischemia. No areas of brain edema or midline shift. Vertebrobasilar atherosclerosis. The paranasal sinuses and mastoids are clear. The calvarium is intact. CT CERVICAL SPINE WITHOUT CONTRAST: No fracture or subluxation. Multilevel degenerative changes present involving the mid and lower cervi saira levels. The prevertebral soft tissues are normal in thickness. CT CHEST, ABDOMEN, PELVIS WITHOUT CONTRAST: NOTE: Lack of contrast is a significant limitation in the assessment of trauma related findings. Spec ifically, solid organ, vascular and bowel evaluation is significantly limited. The lungs are clear.The heart is enlarged. Mild subset sternal thyroid goiter seen with 20 mm nodule. No pneumothorax or pericardial/pleural fluid. No evidence of intra-abdominal visceral injury, free fluid or free air is seen within the above detai led limitations. Cholecystectomy clips. Sigmoid diverticulosis coli without diverticulitis. Moderate lower lumbar degenerative change with mild anterolisthesis of L5 on S1. IMPRESSION: Negative for acute traumatic findings within the above detailed limitations.
[2019-05-08 17:14] LABS: Urine Blood NEGATIVE (NEG); Urine Glucose NEGATIVE (NEG); Urine Protein NEGATIVE (NEG); Urine pH 5.5 (5.0-7.0)
[2019-05-08] MEDS ORDERED: ONDANSETRON 4 MG/2 ML VIAL IV PRN (18:19)
[2019-05-08] MEDS ORDERED: ACETAMINOPHEN 325 MG TABLET PO PRN (18:19)
--- NOTE | 2019-05-08 19:32 | P.HP ---
Certification for Inpatient Patient admitted to: Inpatient With expected LOS: >2 Midnights Practitioner: I am a practitioner with admitting privileges, knowledge of patient current condition, hospital course, and medical plan of care. Services: Services provided to patient in accordance with Admission requirements found in Title 42 Section 412.3 of the Code of Federal Regulations Patient History Date of Service: 05/08/19 Reason for admission: SYNCOPE ON THE COMMODE BEFORE BM OR URINATION History of Present Illness: MS. MORENO HAS DIABETES, OBESITY,HTN, MULTIPLE STROKES AND SHE WHILE GOING TO COMMODE SHE HAD PASSED OUT THE COMMODE. SHE HAS NO CHEST PAIN, NO ABDOMEN PAIN, NAUSEA, VOMITING OR DIARRHEA. SHE WOKE UP WHILE ON COMMODE. SHE WAS GIVEN ATROPINE BY EMT TWICE ON THE WAY. HR WAS DOWN TO 30S AT HOME. Allergies amoxicillin Allergy (Verified 07/27/18 13:00) Anaphylaxis clavulanic acid [From Augmentin] Allergy (Verified 07/27/18 13:00) Hives/Rash exenatide [From Byetta] Allergy (Verified 07/27/18 13:00) Itching/Hives/Rash ezetimibe [From Zetia] Allergy (Verified 07/27/18 13:00) Itching/Hives/Rash glimepiride [From Amaryl] Allergy (Verified 07/27/18 13:00) Itching/Hives/Rash hydrocodone Allergy (Verified 07/27/18 13:00) Nausea/Vomiting meperidine [From Demerol] Allergy (Verified 07/27/18 13:00) Itching/Hives/Rash niacin [From Niaspan Extended-Release] Allergy (Verified 07/27/18 13:00) Itching/Hives/Rash Quinolones Allergy (Verified 07/27/18 13:00) Itching/Hives/Rash sitagliptin [From Januvia] Allergy (Verified 07/27/18 13:00) Itching/Hives/Rash Mrbfulp-Jxv-Mnj Reductase Inhibitor Allergy (Verified 07/27/18 13:00) Nausea/Vomiting tetanus and diphtheria toxoids Allergy (Verified 07/27/18 13:00) Itching/Hives/Rash angiotensin Allergy (Uncoded 07/27/18 13:00) Nausea/Vomiting Home Medications: Amlodipine Besylate [Norvasc] 2.5 mg PO DAILY 06/22/18 Aspirin [Aspirin EC 81 MG] 81 mg PO DAILY 06/22/18 Clopidogrel Bisulfate [Plavix] 75 mg PO DAILY 06/22/18 Fluocinonide [Lidex] 1 appl TOP DAILY PRN 06/22/18 Hydroxyurea [Hydrea] 500 mg PO DAILY 06/22/18 Insulin Aspart [Novolog Flexpen] 15 unit SQ TIDWM 06/22/18 Insulin Detemir [Levemir Flextouch] 10 units SQ DAILY AT SUPPER 06/22/18 Insulin Detemir [Levemir Flextouch] 25 unit SQ 30 MIN BEFORE HS 06/22/18 Magnesium Oxide [Mag 0X Tab] 400 mg PO BID 06/22/18 Meclizine HCl [Motion Sickness Relief] 25 mg PO TID PRN 06/22/18 Pantoprazole Sodium 40 mg PO DAILY WITH BREAKFAST 06/22/18 Ropinirole HCl 0.5 mg PO DAILY 06/22/18 Spironolactone [Aldactone] 100 mg PO DAILY 06/22/18 Timolol 0.5% Opth [Timoptic 0.5% Opth*] 50 drops EACH EYE DAILY 06/22/18 Pregabalin [Lyrica] 75 mg PO BID #60 cap 06/23/18 Valacyclovir [Valtrex] 1,000 mg PO BID #20 tab 06/23/18 - Past Medical/Surgical History Diabetic: Yes -: HTN -: DM 2 -: stroke 2015 -: Thrombocytopenia -: Hernia -: SOB -: Stroke x 3 -: Hysterectomy -: Bladder suspension -: Hernia repair -: Spleenectomy -: Cholesystectomy -: Tonsillectomy -: Colonoscopy and Polyps removal - Family History Father -: Heart disease - Social History Alcohol use: No CD- Drugs: No Caffeine use: No Review of Systems 10-point ROS is otherwise unremarkable General: Weakness, Malaise Gastrointestinal: As per HPI Physical Examination - Vital Signs Temperature: 97.4 F Blood Pressure: 146/78 Pulse: 61 Respirations: 14 - Physical Exam General: Alert, Mild distress, Obese HEENT: Atraumatic, PERRLA, Mucous membr. moist/pink, EOMI, Sclerae nonicteric Neck: Supple, 2+ carotid pulse no bruit, No LAD, Without JVD or thyroid abnormality Respiratory: Clear to auscultation bilaterally, Normal air movement Cardiovascular: Regular rate/rhythm, Normal S1 S2 Gastrointestinal: Normal bowel sounds, No tenderness Musculoskeletal: No tenderness Integumentary: No rashes Neurological: Normal gait, Normal speech, Normal strength at 5/5 x4 extr, Normal tone, Normal affect Lymphatics: No axilla or inguinal lymphadenopathy - Studies Laboratory Data (last 24 hrs) 05/08/19 15:05: Lipase 194 05/08/19 15:05: PT 11.8, INR 1.00 05/08/19 15:05: WBC 5.8, Hgb 14.4, Hct 43.5, Plt Count 225 05/08/19 15:05: Sodium 138, Potassium 4.6, BUN 37 H, Creatinine 1.39 H, Glucose 194 H, Magnesium 1.8, Total Bilirubin 0.6, AST 29, ALT 33, Alkaline Phosphatase 88 Microbiology Data (last 24 hrs): 05/08/19 14:53 Stool Stool Occult Blood (PITO) - Final RESEARCH PROJECT MANAGER Assessment and Plan - Problems (Diagnosis) (1) Syncope and collapse Current Visit: Yes Status: Acute Plan: MAINLY FROM BRADYCARDIA. SHE HAS NO ACUTE STROKE SYMPTOMS OR SIGNS ON EXAMINATION. WILL STOP COREG. (2) Sinus bradycardia Current Visit: Yes Status: Acute Plan: STOP COREG. MAY NEED PPM. WILL CONSULT DR. JARAMILLO (3) HTN (hypertension) Current Visit: Yes Status: Chronic (4) Recurrent cerebrovascular accidents (CVAs) Current Visit: Yes Status: Chronic Plan: HAS HAD LONG HISTORY OF ADMISSIONS TO [facility]. NO NEW STROKE. (5) Diabetes Current Visit: Yes Status: Chronic Plan: DIABETES CONTROL AND FOOD INTAKE IS POOR. SHE HAS BEEN ADVISED ABOUT DIET AND INSULIN ON VISITS AT OFFICE. Qualifiers: Diabetes mellitus type: type 2 (6) History of carotid endarterectomy Current Visit: Yes Status: Acute - Advance Directives Does patient have a Living Will: No Does patient have a Durable POA for Healthcare: Yes
[2019-05-08 20:10] VITALS: BMI 44.6
[2019-05-08] MEDS: FAMOTIDINE 20 MG/2 ML VIAL IV SCH (22:06)
[2019-05-08 23:08] LABS: Urine Appearance CLEAR; Urine Bilirubin NEGATIVE (NEG); Urine Blood NEGATIVE (NEG); Urine Color YELLOW; Urine Glucose NEGATIVE (NEG); Urine Microscopic Reflex ORDER UMIC; Urine Protein NEGATIVE (NEG); Urine Specific Gravity <=1.005 (1.005-1.030); Urine Urobilinogen 0.2 mg/dL (0.2-1.0)
[2019-05-09 00:42] LABS: Urine Bacteria >50 /HPF (<20); Urine Culture Reflex Order REFLEXED; Urine RBC <5 /HPF (NONE SEEN)
[2019-05-09 05:56] LABS: Absolute Lymphocytes (CBC) 1.1 K/uL (0.7-4.9); Basophils % 0.8 % (0-1.3); Lymphocytes % 23.3 % (15.3-44.8); MPV 10.5 fL (7.6-11.3); RBC Red Blood Cell Count 3.56 M/uL (3.86-4.86)
[2019-05-09 06:08] LABS: Potassium 3.9 mmol/L (3.5-5.1)
--- NOTE | 2019-05-09 07:00 | RAD REPORT ---
EXAM DESCRIPTION: RAD - Chest Single View - 05/09/2019 6:34 am CLINICAL HISTORY: Chest Pain Chest pain. COMPARISON: Chest Single View dated 05/08/2019; Chest Pa And Lat (2 Views) dated 04/04/2019; Chest Pa A nd Lat (2 Views) dated 06/22/2018; CHEST PA AND LAT 2 VIEW dated 11/27/2011 FINDINGS: Portable technique limits examination quality. Mild interstitial pulmonary edema persists, unchanged. The heart is upper limit of normal in size wit h sternotomy wires present. No displaced fractures.Overall, no significant changes appear in the aera tion of the lung since preceding day's study. IMPRESSION: Stable chest since 05/08/2019.
[2019-05-09] MEDS: INSULIN -REGULAR HUMAN 50 UNIT/0.5 ML ML SQ SCH ×3 (07:30→16:47)
[2019-05-09] MEDS ORDERED: ASPIRIN EC 81 MG TAB PO SCH (09:00)
[2019-05-09] MEDS: FAMOTIDINE 20 MG/2 ML VIAL IV SCH (10:06)
--- NOTE | 2019-05-09 11:00 | RAD REPORT ---
EXAM DESCRIPTION: - CP - 05/09/2019 9:42 am CLINICAL HISTORY: syncope known LICA occlusion, R CEA COMPARISON: MRA Neck W/Wo Cont dated 06/22/2018; Brain W/Wo Cont dated 06/22/2018 TECHNIQUE: Real-time sonographic evaluation of bilateral carotid and vertebral systems was performed . Peralta scale and Doppler interrogation were performed with waveform tracing bilaterally. FINDINGS: Normal high resistance waveforms are noted in both external carotid arteries. The common c arotid arteries and internal carotid arteries show normal low resistance waveforms. By history patient is status post right-sided endarterectomy. The proximal right ICA stenosis seen on the June 2018 MRA imaging is no longer present. Mild calcified plaquing changes are present in the left internal carotid artery. Peak systolic and end diastolic velocity values and the ICA/CCA ratios are in the non-hemodynamically significant range. On visual inspection no dissection or significant f low restricting lesion identified. Antegrade flow seen in both vertebral arteries. Velocity values and ratios were recorded and are retained in the patient's imaging records. IMPRESSION: Right endarterectomy changes are evident with no measurable stenosis in the right-side v asculature. Mild calcified plaquing changes in the left internal carotid artery. No hemodynamically significant d egrees of stenosis identified.
[2019-05-09 11:09] VITALS: O2SAT 100
--- NOTE | 2019-05-09 11:26 | CON ---
Chief Complaint: Loss of consciousness. History Of Present Illness: Mrs. Rodriguez has been having spells just like the one that caused her to c ome to the hospital yesterday in every way except yesterday it was worse and caused her to lose consc iousness. For 2 months, she has had a dozen, perhaps more spells. They are all characterized by int ense vertigo, nausea, sometimes vomiting, sometimes diarrhea usually they will go away if she goes to the bathroom, holds her head still and closes her eyes. Yesterday, it was worse from the beginning and when she got to the bathroom there was loss of consciousness. She was sitting on the toilet and fell to the floor. Her son is a lodge officer, was the first person to see her. They were having l unch together. He apparently heard her fall in the bathroom. He could not get a pulse, but before t here was any CPR done or any defibrillation or any emergency medical services present, she awakened. She has been in sinus rhythm the whole time, although she was sinus bradycardic when first seen. Th e patient has had a CAT scan of the head. There is no acute finding. It looks like there is a benig n arachnoid cyst that is present on all of her CTs throughout the years. A C-spine CAT scan was nega tive for a fracture. A CAT scan of abdomen, pelvis, and chest revealed no acute findings. Since the patient has been in the hospital, her troponins are elevated. She has had 3; they were about 10 choco rs apart and all 3 are exactly the same 0.15, 0.16, 0.15. The patient has a history of bypass surger y with right carotid endarterectomy. 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 The patient has a history of diabetes, morbid obesity, bypass surgery, gallbladder surgery, hysterectomy . She is allergic to amoxicillin, clavulanic acid, exenatide, ezetimibe, glimepiride. She is multip arous. Medications: Outpatient medications have been magnesium oxide, aspirin, ropinirole, meclizine, cristian nolactone, Protonix, insulin, carvedilol, pregabalin, Lyrica, furosemide, hydroxyurea, and cholecalci ferol vitamin D3. Social History: She uses no tobacco, quit 40 years ago. Physical Examination: Constitutional: 5 feet 3 inches, 252 pounds. Alert, oriented, pleasant, not in distress. Vital Signs: Blood pressure 139/65, pulse 57, O2 saturation 96% on room air. No pain. Lungs: Clear. Heart: Within normal limits. Abdomen: Soft. Extremities: Normal. No cyanosis, clubbing, or edema. Distal pulses are normal. Laboratory Data: Her creatinine is 1.0, yesterday was 1.39. Assessment/plan: Reason for the patient's syncope is not certain at this point, but there has been n o arrhythmia documented. I think she may well have vasovagal syncope causing all these symptoms that may be primarily vertigo causing vasovagal syncope. None of this is clear, but looking at her carot ids with Doppler, monitoring her arrhythmia, getting an echocardiogram are all likely to be helpful. I am not concerned that this is ischemic heart disease, but perhaps as an outpatient, she should hav e a stress test and see if her bypasses are doing well. We can review the records with Dr. Candice Kowalski regarding exactly what vessels were bypassed. I think at the time of the surgery, some of the vessels were left unbypassed, so ischemia causing vasovagal syncope is a possibility. BILL/SULEIMAN Voice ID: [id number] Report ID: [id number]
--- NOTE | 2019-05-09 11:45 | ECHO ---
HEIGHT: 5 ft 3 in WEIGHT: 252 lb 0 oz DATE OF STUDY: 05/09/[address]: Jake Espino MD 2-DIMENSIONAL: YES M.MODE: YES DOPPLER: YES COLOR FLOW: YES TDS: NO PORTABLE: NO DEFINITY: NO BUBBLE STUDY: NO DIAGNOSIS: CONGESTIVE HEART FAILURE, BRADYCARDIA, SYNCOPE CARDIAC HISTORY: CATHERIZATION: NO SURGERY: YES PROSTHETIC VALVE: NO PACEMAKER: NO MEASUREMENTS (cm) DIASTOLIC (NORMALS) SYSTOLIC (NORMALS) IVSd 1.1 (0.6-1.2) LA Diam 3.8 (1.9-4.0) LVEF 60% LVIDd 4.5 (3.5-5.7) LVIDs 3.1 (2.0-3.5) %FS 32% LVPWd 1.2 (0.6-1.2) Ao Diam 3.0 (2.0-3.7) 2 DIMENSIONAL ASSESSMENT: RIGHT ATRIUM: NORMAL LEFT ATRIUM: NORMAL RIGHT VENTRICLE: NORMAL LEFT VENTRICLE: NORMAL TRICUSPID VALVE: NORMAL MITRAL VALVE: MITRAL ANNULAR CALCIFICATION PULMONIC VALVE: NORMAL AORTIC VALVE: NORMAL PERICARDIAL EFFUSION: NONE AORTIC ROOT: NORMAL LEFT VENTRICULAR WALL MOTION: NORMAL DOPPLER/COLOR FLOW: NORMAL COMMENTS: NORMAL LEFT VENTRICULAR EJECTION FRACTION. MITRAL ANNULAR CALCIFICATION. TECHNOLOGIST: Kristen ROY
[2019-05-09] MEDS ORDERED: MECLIZINE HCL 12.5 MG TAB PO PRN (12:45)
--- NOTE | 2019-05-09 15:35 | EKG ---
Test Date: 2019-05-08 Test Time: 14:11:28 Manager Sas: SONIA MEASUREMENT RESULTS: Intervals: Rate: 46 OR: 182 QRSD: 96 QT: 488 QTc: 427 [place]: P: 31 OR: 182 QRS: -21 T: 86 INTERPRETIVE STATEMENTS: Sinus bradycardia Otherwise normal ECG Compared to ECG 06/22/2018 17:43:53 Sinus arrhythmia no longer present Electronically Signed On 05-09-19 15:34:28 SHOE CLERK by Tunde Tiwari
[2019-05-09] MEDS ORDERED: INSULIN LISPRO 100 UNIT/1 ML SQ SCH (17:00)
[2019-05-09] MEDS ORDERED: INSULIN GLARGINE 100 UNITS/ML SQ SCH (17:00)
--- NOTE | 2019-05-09 17:20 | P.DS ---
Admission Date: 05/08/19 Discharge Date: 05/09/19 Disposition: ROUTINE DISCHARGE Discharge Condition: FAIR Reason for Admission: SYNCOPE ON THE COMMODE BEFORE BM OR URINATION - Problems (1) Syncope and collapse Current Visit: Yes Status: Acute (2) Sinus bradycardia Current Visit: Yes Status: Acute (3) HTN (hypertension) Current Visit: Yes Status: Chronic (4) Recurrent cerebrovascular accidents (CVAs) Current Visit: Yes Status: Chronic (5) Diabetes Current Visit: Yes Status: Chronic Qualifiers: Diabetes mellitus type: type 2 (6) History of carotid endarterectomy Current Visit: Yes Status: Acute Brief History of Present Illness: MS. MORENO HAS DIABETES, OBESITY,HTN, MULTIPLE STROKES AND SHE WHILE GOING TO COMMODE SHE HAD PASSED OUT THE COMMODE. SHE HAS NO CHEST PAIN, NO ABDOMEN PAIN, NAUSEA, VOMITING OR DIARRHEA. SHE WOKE UP WHILE ON COMMODE. SHE WAS GIVEN ATROPINE BY EMT TWICE ON THE WAY. HR WAS DOWN TO 30S AT HOME. 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 SHE HAD SYNCOPE. SHE IS BACK TO HER BASELINE NOW. SHE HAS NOT WALKED SINCE SHE HAS HAD STROKE. DR. MI DID CAROTID DOPPLER ,SHE HAD CAROTID ENDARTERECTOMY ON R SIDE. HER L SIDE IS OKAY. ECHO IS GOOD. I SUSPECT THAT SHE MAY NOT NEED PACEMAKER FOR NOW. HER HR IS UP TO 50 NOW AND MAY NOTDROP TO 30. FAMILY WILL WATCH AND HAVE HER COME BACK TO OFFICE IN ONE WEEK. Vital Signs/Physical Exam: Temp Pulse Resp BP Pulse Ox 98.6 F 50 18 125/56 L 95 05/09/19 08:00 05/09/19 08:00 05/09/19 08:00 05/09/19 08:00 05/09/19 08:00 Laboratory Data at Discharge: WBC 4.8 K/uL (4.3-10.9) D 05/09/19 05:26 Hgb 13.8 g/dL (12.0-15.0) 05/09/19 05:26 Hct 41.0 % (36.0-45.0) 05/09/19 05:26 Plt Count 227 K/uL (152-406) 05/09/19 05:26 PT 11.8 SECONDS (9.5-12.5) 05/08/19 15:05 INR 1.00 05/08/19 15:05 Sodium 139 mmol/L (136-145) 05/09/19 05:26 Potassium 3.9 mmol/L (3.5-5.1) 05/09/19 05:26 BUN 27 mg/dL (7-18) H 05/09/19 05:26 Creatinine 1.00 mg/dL (0.55-1.3) 05/09/19 05:26 Glucose 140 mg/dL (74-106) H 05/09/19 05:26 Magnesium 1.8 mg/dL (1.8-2.4) 05/08/19 15:05 Total Bilirubin 0.6 mg/dL (0.2-1.0) 05/08/19 15:05 AST 29 U/L (15-37) 05/08/19 15:05 ALT 33 U/L (12-78) 05/08/19 15:05 Alkaline Phosphatase 88 U/L (45-117) 05/08/19 15:05 Troponin I 0.15 ng/mL (0.0-0.045) H 05/08/19 22:53 Lipase 194 U/L (73-393) 05/08/19 15:05 Home Medications: Aspirin 81 mg PO DAILY 05/08/19 Cholecalciferol (Vitamin D3) [Vitamin D3] 1,000 unit PO DAILY 05/08/19 Furosemide 40 mg PO DAILY 05/08/19 Hydroxyurea 500 mg pe PO BID 05/08/19 Insulin Aspart [Novolog Flexpen] 5 unit SQ TIDWM 05/08/19 Insulin Detemir [Levemir Flextouch] 10 unit SQ DAILY AT SUPPER 05/08/19 Insulin Detemir [Levemir Flextouch] 25 unit SQ DAILY WITH BREAKFAST 05/08/19 Magnesium Oxide [Mag 0X*] 400 mg PO BID 05/08/19 Meclizine HCl 25 mg PO TIDP PRN 05/08/19 Pantoprazole Sodium 20 mg PO DAILY 05/08/19 Pregabalin 75 mg PO BID 05/08/19 Ropinirole HCl [Requip*] 0.5 mg PO DAILY 05/08/19 Spironolactone [Aldactone*] 50 mg PO DAILY 05/08/19 Patient Discharge Instructions: STOP CARVEDIOL. WATCH HEART RATE AND KEEP LOG OF BP AND HEART RATE FOR ME. SEE YOU IN ABOUT A WEEK. Followup: Frederick Gomez MD [Primary Care Provider] - (Call Dr. Gomez's office to schedule 1 week follow up appointment. )
[2019-05-09 17:21] VITALS: TEMP 98.3
[2019-05-09 17:22] VITALS: BP 152/67
[2019-05-09] MEDS ORDERED: PREGABALIN 75 MG CAP PO SCH (21:00)
[2019-05-09] MEDS ORDERED: HYDROXYUREA 500 MG CAP PO SCH (21:00)
[2019-05-09] MEDS ORDERED: MAGNESIUM OXIDE 400 MG TAB PO SCH (21:00)
[2019-05-10] MEDS ORDERED: ASPIRIN 81 MG CHEWABLE TABLET PO SCH (09:00)
[2019-05-10] MEDS ORDERED: FUROSEMIDE 40 MG TABLET PO SCH (09:00)
[2019-05-10] MEDS ORDERED: SPIRONOLACTONE 25 MG TABLET PO SCH (09:00)
[2019-05-10] MEDS ORDERED: ROPINIROLE HCL 0.25 MG TAB PO SCH (09:00)
[2019-05-10] MEDS ORDERED: PANTOPRAZOLE 40MG TABLET PO SCH (09:00)
== END 2019-05-09 18:21 | disposition home or self-care (01) | DRG 309 ==
LOC: ER 14:04 → ERHOLD 16:12 → 2ND 18:14
PROVIDERS: ADMIT Internal Medicine; ATTEND Internal Medicine
DX: R00.1 Bradycardia, unspecified (principal); Z68.41 Body mass index [BMI] 40.0-44.9, adult; R55 Syncope and collapse; E11.9 Type 2 diabetes mellitus without complications; E66.9 Obesity, unspecified; I10 Essential (primary) hypertension; D69.6 Thrombocytopenia, unspecified; G93.0 Cerebral cysts; T44.7X5A Adverse effect of beta-adrenoreceptor antagonists, initial encounter
CPT/HCPCS: 36415; 51702; 70450; 71045; 71250; 72125; 80048; 80076; 81003; 81015; 82274; 82947; 83690; 83735; 83880; 84484; 85025; 85610; 87045; 87046; 87077; 87086; 87088; 87186; 89055; 93005; 93306; 93880; 96361; 96374; 99285; J7030

== ENCOUNTER 2020-05-29 11:35 | Inpatient (IN) | payer OTHER ==
--- OUTSIDE RECORDS SUMMARY | 2020-05-29 11:41 | XMS REPORT | Continuity of Care Document ---
:1940 Author Organization [facility] t Address [address] [place] [address] Care Team Providers Name Role Phone Pcp Primary Care Physician Unavailable ROSENDA AQUINO Attending Clinician Unavailable BRENDAN VENTURA Attending Clinician Unavailable Layla Goodwin Attending Clinician Attending Clinician Unavailable Eric Kenny Attending Clinician CHAYO Attending Clinician Unavailable Asiya Nicholson Attending Clinician Broderick Lee Attending Clinician ROSENDA AQUINO Admitting Clinician Unavailable BRENDAN VENTURA Admitting Clinician Unavailable Broderick Lee Admitting Clinician Problems Condition Condition Condition Status Onset Resolution Last Treating Co mments Source Name Details Category Date Date Treatment Clinician Date SIRS SIRS Disease Active [facility] (systemic (systemic 08-07 Luke s - inflammato inflammato 00:00: Me dical ry ry 00 Center response response syndrome) syndrome) Acute Acute Disease Active [facility] post-opera post-opera 08-06 Jennifer kes - tive pain tive pain 00:00: Medi saira 00 Center Cardiogeni Cardiogeni Disease Active [facility] shock c shock 08-06 [facility] Fluid Fluid Disease Active [facility] overload overload 08-06 [facility] - 00[facility]: Medical 00 Center Thrombocyt Thrombocyt Disease Active [facility] openia openia 31 [facility] - 00:[facility] 00 Center Hyperglyce Hyperglyce Disease Active [facility] daija daija 31 [facility] - 00:[facility] 00 Center Coronary Coronary Disease [facility] arterioscl arterioscl 5-30 Jennifer kes - erosis erosis 00:00: Medical 00 Center 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 [facility] 4 4 5-30 [facility] - 00[facility] 00 Center Bradycardi Bradycardi Disease Active [facility] a a 30 [facility] 00:[facility]: Medical 00 Center Acute Acute Disease Active [facility] prerenal prerenal 30 [facility] - azotemia azotemia 00:00: Medica l 00 Center Hyperchlor Hyperchlor Disease Active [facility] emic emic 30 [facility] - metabolic metabolic 00:00: [facility] saira acidosis acidosis 00 Center Acute Acute Disease Active [facility] blood loss blood loss 5-30 Jennifer kes - anemia anemia 00:00: Medical 00 Center Chronotrop Chronotrop Disease Active [facility] ic ic 5-30 [facility] - incompeten incompeten 00:00: Me dical ce ce 00 Center S/P S/P Disease Active [facility] carotid carotid 5-22 [facility] - endarterec endarterec 00:00: Me dical carmen carmen 00 Center Acute Acute Disease Active [facility] respirator respirator 5-22 Jennifer kes - y y 00:00: Medical insufficie insufficie 00 Ce nter ncy ncy Hypertensi Hypertensi Disease Active [facility] ve urgency ve urgency 5-22 Jennifer kes - 00:00: Medical 00 Center Carotid Carotid Disease Active [facility] stenosis, stenosis, 5-21 Luke s - right right 00:00: Medical 00 Center CAD CAD Disease Active [facility] (coronary (coronary 5-21 Luke s - artery artery 00:00: Medical disease) disease) 00 Center STROKE, Diagnosis Active 2015-02-05 Co moria EMOBOLIC 12-01 16:40:00 l STROKE, 00:00: [place] EMOBOLIC 00 Active 12/01/2014 [facility] CVA Diagnosis Active 2014-12-13 Mem oria 11-08 16:45:00 l CVA 00:00: [place] 00 Active 11/08/2014 [facility] GRAZYNA Diagnosis Active 2015-02-05 Memoria BILLING 11-08 16:39:00 l 4255 00:00: [place] GRAZYNA 00 BILLING 4255 Active 11/08/2014 [facility] Clotting Clotting Problem Active Unive rs disorder disorder [facility] [place] [facility] Muscle Muscle Problem Active Univers weakness weakness [facility] [place] [facility] Asthma Problem Resolve 2015-04-13 Tobi benedict (disorder) d 05:10:29 l Asthma [place] (disorder) Resolved Problem 04/13/2015 [facility], FELIZ Wild, FELIZ Rubi dm Problem Resolve 2015-04-13 Tobi benedict (qualifier d 05:10:29 l value) dm [place] (qualifier value) Resolved Problem 04/13/2015 [facility], FELIZ Wild, FELIZ Rubi Glaucoma Problem Resolve 2015-04-13 Me moria (disorder) d 05:10:29 l Glaucoma Michael n (disorder) Resolved Problem 04/13/2015 [facility], FELIZ Wild, FELIZ Rubi Hypertensi Problem Resolve 2015-04-13 Memoria ve d 05:10:29 l disorder, [place] systemic Hypertensi arterial ve (disorder) disorder, systemic arterial (disorder) Resolved Problem 04/13/2015 [facility], FELIZ Wild, FELIZ Rubi Myocardial Problem Resolve 2015-04-13 Memoria infarction d 05:10:29 l (disorder) Michael n Myocardial infarction (disorder) Resolved Problem 04/13/2015 [facility], FELIZ Wild, FELIZ Rubi Diabetic Problem Resolve 2015-04-13 Me moria neuropathy d 05:10:29 l (disorder) Diabetic He rmann neuropathy (disorder) Resolved Problem 04/13/2015 [facility], FELIZ Wild, FELIZ Rubi Transient Problem Resolve 2015-04-13 M emoria ischemic d 05:10:29 l attack [place] (disorder) Transient ischemic attack (disorder) Resolved Problem 04/13/2015 [facility], FELIZ Wild, OPID [place] CVA Diagnosis Active 2015-02-05 Mem oria 16:40:00 l CVA [place] Active [facility] CEREBRAL Diagnosis Active 2015-02-05 M emoria EMBOLISM W 16:40:00 l CI CEREBRAL Michael n EMBOLISM W CI Active [facility] Polyneurop Polyneurop Problem Active U nivers athy athy [facility] [place] [facility] Stroke, Stroke, Problem Active Univers embolic embolic [facility] [place] [facility] Diabetes Diabetes Problem Active Unive rs mellitus mellitus ity of type 2, type 2, [place] uncontroll uncontroll Ph ysici ed ed ans Essential Essential Problem Active Uni vers (primary) (primary) ity of hypertensi hypertens[place] [facility] Hyperlipid Hyperlipid Problem Active U nivers emia emia [facility] [place] [facility] Multiple Multiple Problem Active Unive rs thyroid thyroid ity of nodules nodules [place] [facility] Vitamin D Vitamin D Problem Active Uni vers deficiency deficiency it y of disease disease [place] [facility] Hypotensio Hypotensio Disease Active [facility] n due to n due to [facility] - hypovolemi hypovolemi Me dical a a Center Normal Normal Disease Active [facility] anion gap anion gap Luke s - metabolic metabolic Medi saira acidosis acidosis Center Hypercalce Hypercalce Problem Active U nivers daija daija [facility] [place] [facility] Allergies, Adverse Reactions, Alerts Allergy Allergy Status Severity Reaction(s) Onset Inactive Treating Comm ents Source Name Type Date Date Clinician Tree Nut Drug Active Swelling Daughter [facility] Allergy 6-10 reports [facility] - 00:00: pt has Medical 00 swelling Center when she consume peanuts and tree nuts and she wanted this documente d within the EMR. Hydrocod Propensi Active [facility] one-Acet ty to 5-21 [facility] - aminophe adverse 00:00: Medical n reaction 00 Center s Insulin Propensi Active [facility] Glargine ty to 5-21 [facility] - adverse 00:00: Medical reaction 00 Center s Meperidi Propensi Active [facility] ne ty to 5-21 [facility] - adverse 00:00: Medical reaction 00 Center s Metformi Propensi Active [facility] n ty to 5 [facility] - adverse 00:00: Medical reaction 00 Center s Niacin Propensi Active [facility] Preparat ty to 5-21 [facility] - ions adverse 00:00: Medical reaction 00 Center s Peanut Drug Active Swelling Daughter [facility] Allergy 521 reports [facility] - 00:00: pt has Medical 00 swelling Center when she consume peanuts and tree nuts and she wanted this documente d within the EMR. Quinolon Propensi Active [facility] es ty to 5-21 [facility] - adverse 00:00: Medical reaction 00 Center s Sitaglip Propensi Active [facility] tin ty to 5-21 [facility] - adverse 00:00: Medical reaction 00 Center s Starch Propensi Active [facility] ty to 5-21 [facility] - adverse 00:00: Medical reaction 00 Center s Statins- Propensi Active [facility] Hmg-Coa ty to 5-21 [facility] - Reductas adverse 00:00: Medical e reaction 00 Center Inhibito s rs Amoxicil Propensi Active [facility] andrew ty to 5 [facility] - adverse 00:00: Medical reaction 00 Center s Tetanus Propensi Active [facility] Vaccines ty to 5-21 [facility] - And adverse 00:00: Medical Toxoid reaction 00 Center s Angioten Propensi Active [facility] sin ty to 5-21 [facility] - I,Human adverse 00:00: Medical reaction 00 Center s Caffeine Propensi Active [facility] ty to 5-21 [facility] - adverse 00:00: Medical reaction 00 Center s Clavulan Propensi Active [facility] ic Acid ty to 5-21 [facility] - adverse 00:00: Medical reaction 00 Center s Diphther Propensi Active [facility] ia-[place] ty to 5-21 [facility] - us adverse 00:00: Medical Toxoids reaction 00 Center Ped s Exenatid Propensi Active [facility] e ty to 5-21 [facility] - adverse 00:00: Medical reaction 00 Center s Ezetimib Propensi Active 2019-[address] e ty to 5-21 [facility] - adverse 00:00: Medical reaction 00 Center s Glimepir Propensi Active 2019- [facility] rodríguez ty to 5-21 [facility] - adverse 00:00: Medical reaction 00 Center s Amaryl drug Active [facility] allergy [facility] [place] [facility] amoxicil drug Active Univers andrew allergy [facility] [place] [facility] Angioten drug Active Univers sin allergy ity of [facility] Physici ans Augmenti drug Active Univers n allergy [facility] [place] [facility] Byetta drug Active Univers SOLN allergy [facility] [place] [facility] Cipro drug Active Univers allergy [facility] [place] [facility] hydrocod drug Active Univers one allergy [facility] [place] [facility] Januvia drug Active Univers TABS allergy [facility] [place] [facility] Lantus drug Active Univers allergy [facility] [place] [facility] Levaquin drug Active Univers allergy [facility] [place] [facility] Lipitor drug Active [facility] allergy [facility] [place] [facility] Meperidi drug Active Univers ne HCl allergy ity of [facility] MetFORMI drug Active Univers N HCl allergy ity of [facility] Physici ans Niaspan drug Active Univers TBCR allergy [facility] [place] [facility] Statins drug Active Univers allergy [facility] [place] [facility] TETANUS drug Active Univers allergy [facility] [place] [facility] Demerol Demerol Active Memoria HCl HCl l [place] glimepir glimepir Active Memori a rodríguez rodríguez l [place] HYDROcod HYDROcod Active Memori a one-PPA one-PPA l [place] Januvia Januvia Active Memoria l [place] Lantus Lantus Active Memoria l [place] Levaquin Levaquin Active Memori a l [place] Zetia drug Active Univers allergy [facility] [place] [facility] metFORMI metFORMI Active Memori a N N l [place] Niaspan Niaspan Active Memoria ER ER l [place] statins statins Active Memoria l [place] tetanus tetanus Active Memoria immune immune l globulin globulin Michael n Zetia Zetia Active Memoria l [place] amoxicil amoxicil Active Memori a andrew andrew l [place] angioten angioten Active Memori a sin sin l converti converti Michael n ng ng enzyme enzyme inhibito inhibito rs rs antihist antihist Active Memori a amines amines l [place] Byetta Byetta Active Memoria Prefille Prefille l d Pen d Pen [place] Family History Family Member Diagnosis Comments Start Date Stop Date Source Father Family history of Univers ity of coronary [place] [facility] arteriosclerosis Social History Social Habit Start Date Stop Date Quantity Comments Source History SDOH [facility] - Alcohol Std Drinks Medica l Center History [facility] Lupatricio - Alcohol Binge Medical Darren ter Sex Assigned At [facility] [place] Tobacco use and 2018-08-25 2018-08-25 Never used [facility] kes - exposure 00:00:00 00:00:00 [facility] Alcohol intake 2018-08-25 2018-08-25 Current [facility] Castillo es - 00:00:00 00:00:00 non-drinker of Medical Ce nter alcohol (finding) History SDGA 2018-08-05 2018-08-05 [address] [facility] [address] [facility] - Alcohol Frequency 00:00:00 00:00:00 [facility] Social History 2014-11-09 2014-11-09 [facility] 03:26:32 03:26:32 Smoking Status Start Date Stop Date Source Former smoker [facility] Never smoker [facility] Medications Ordered Filled Start Stop Current Ordering Indication Dosage Frequency Signature Comments Components Source Medication Medication Date Date Medication? Clinician (SIG) Name Name timolol Yes open angle 1[drp] Q.5D [address] (BETIMOL) 08-25 glaucoma (two) [facility] - 0.5 % 10:06: times Medical ophthalmic 45 daily. Center solution fluocinonid 2018- Yes Q.5D Apply [facility] e (LIDEX) 08-25 topically [facility] - 0.05 % 10:06: 2 (two) Medical cream 45 times Center daily. hydroxyurea 2018- Yes Q.5D Take by [facility] (DROXIA) 08-25 mouth 2 [facility] - 500 mg 10:06: (two) Medical capsule 45 times Center daily . insulin 2018-0 Yes 10U QD Inject 10 [facility] detemir 08-25 Units [facility]ukes - U-100 10:06: subcutaneo Medica l (LEVEMIR) 45 usly Center 100 unit/mL nightly injection Before supper.. pregabalin 2018-0 Yes 75mg Q.5D Take [address] (LYRICA) 75 08-25 by mouth 2 Jennifer kes - MG capsule 10:06: (two) Medica l 45 times Center daily. meclizine 2018-0 Yes 25mg Take [address] (ANTIVERT) 6-19 by mouth 3 Castillo es - 25 MG 10:06: (three) Medical tablet 45 times Center daily as needed. rOPINIRole 2019-0 Yes .5mg QD Take 0.[address] (REQUIP) 6-19 mg by [facility]ukes - 0.5 MG 10:06: mouth Medical tablet 45 daily. Center insulin 2019-0 Yes 25U Inject 25 [facility] detemir 6-19 Units [facility]ukes - U-100 10:06: subcutaneo Medica l (LEVEMIR) 45 usly daily Cent er 100 unit/mL with injection breakfast. insulin 2019-0 Yes 15U Inject 15 [facility] aspart 6-19 Units [facility] - U-100 10:06: subcutaneo Medica l (NOVOLOG) 45 usly 3 Center 100 unit/mL (three) (3 mL) InPn times daily before meals. cholecalcif 2019-0 Yes 5000U QD Take 5,[address] rosalie, 6-19 Units by [facility] - vitamin D3, 10:06: mouth Medic al 5,000 unit 45 daily. Center Tab clopidogrel 2018-0 Yes 75mg QD Take [address] (PLAVIX) 75 6-19 by mouth Luke s - mg tablet 10:06: daily. Medica l 45 Center traMADol 2019-0 Yes 25mg Take [address] (ULTRAM) 50 6-19 by mouth Luke s - mg tablet 10:06: every 6 Medic al 45 (six) Center hours as needed for Pain. magnesium 2019-0 Yes 400mg QD Take [address] oxide 6-19 mg by [facility]ukes - (MAG-OX) 10:06: mouth Medical 400 mg 00 daily . Center (241.3 mg magnesium) tablet pantoprazol 2019-0 Yes 20mg QD Take [address] e 6-19 by mouth [facility]ukes - (PROTONIX) 10:06: daily . Medi saira 40 MG 00 Center tablet aspirin 81 2019-0 Yes 81mg QD Take 1 [facility] MG EC 6-11 tablet (81 [facility] - tablet 00:00: mg total) Medica l 00 by mouth Center daily. carvedilol 2019-0 Yes 3.125mg Q.5D Take [address] (COREG) 6-10 tablet [facility]ukes - 3.125 MG 00:00: (3.125 mg Medi saira tablet 00 total) by Center mouth 2 (two) times daily. nystatin 2020- No Q.5D Apply [facility] (MYCOSTATIN 6-10 08-15 topically Jennifer kes - ) 100,000 00:00: 23:59 2 (two) Medi saira unit/gram 00 :00 times Center cream daily. Tresiba Tresiba Yes CITLALI 30 QD INJECT 30 Univers FlexTouch FlexTouch 11-14 SENDOS UNIT DAILY ity of 100 UNIT/ML 100 UNIT/ML 00:00: M.D. [place] Subcutaneou Subcutaneou 00 P hysici s Solution s Solution ans Pen-injecto Pen-injecto r r Toujeo Toujeo Yes CITLALI 30 QD INJECT 30 U nivers SoloStar SoloStar 11-12 SENDOS UNIT DAILY ity of 300 UNIT/ML 300 UNIT/ML 00:00: M.D. [place] Subcutaneou Subcutaneou 00 P hysici s Solution s Solution ans Pen-injecto Pen-injecto r r OneTouch OneTouch Yes CITLALI uses 4 Univers Delica Delica 6-27 SENDOS daily ity of Lancets 33G Lancets 33G 00:00: M.D. [place] 00 Physici ans OneTouch OneTouch Yes CITLALI Q0.25D TEST 4 Univers Ultra Blue Ultra Blue 6-27 SENDOS TIMES ity of In Vitro In Vitro 00:00: M.D. DAILY. Guillermo as Strip Strip 00 Physici ans Gabapentin Gabapentin Yes [facility] TAKE 1 Univers 100 MG Oral 100 MG Oral 3-02 OKPALA CAPSULE AT ity of Capsule Capsule 00:00: N.P. BEDTIME. Guillermo as 00 Physici ans Aspirin 81 Aspirin 81 2014-03 Yes 1 QD TAKE 1 Univers MG TABS MG TABS 0-20 TABLET ity of 00:00: DAILY. [place] 00 Physici ans MaxEPA No 2 gm, 2 Memoria 11-10 cap, l 16:00: Route: PO, [place] 00 Drug form: CAP, Q12H, Start date: 11/10/14 11:00:00, Duration: 30 day, Stop date: 12/10/14 9:00:00 Aspirin 325 Yes 325 mg = 1 Memoria MG Oral 9-04 tab, PO, l Tablet 15:34: Daily, # [place] 00 30 tab, 0 Refill(s) omega-3 Yes 2 gm = 2 Memori a polyunsatur 04 cap, PO, l ated fatty 15:34: Q12H, # 60 H ermann acids 1000 00 cap, 0 mg oral Refill(s) capsule Eagle-3 No 2,000 mg, Memor ia Acid Ethyl 04 2 cap, l Esters 14:00: Route: PO, Lidya nn (SNF) 1000 00 Dosing MG Oral Weight Capsule 105.455, [Lovaza] kg, BID, Start date: 11/10/14 9:00:00, Duration: 30 day, Stop date: 12/09/14 17:00:00 Aspirin No 325 mg, Memoria 11-10 Route: PO, l 14:00: Drug form: Junito 00 TAB, Daily, Dosing Weight 105.455, kg, Start date: 11/10/14 9:00:00, Duration: 30 day, Stop date: 12/09/14 9:00:00 heparin No 5,000 Memoria 11-10 unit, l 05:00: Route: [place] 00 SUB-Q, Q8H, Dosing Weight 105.455, kg, Start date: 11/10/14 0:00:00, Duration: 30 day, Stop date: 12/09/14 16:00:00 Levemir No Notes: Memoria 11-10 Same as l 03:19: Levemir Do [place] 00 not hold insulin without contacting prescriber "single patient use only" brinzolamid No brinzolami Memoria e 1% + 11-10 de 1% + l brimonidine 03:00: brimonidin [place] 0.2% 00 e 0.2% (Simbrinza) (Simbrinza ), 1 drp, Drug form: MISC, Route: Each Affected Eye, TID, 11/09/14 22:00:00, Duration: 30 day, Stop date: 12/09/14 14:00:00 Brimonidine No 1 drp, Tobi benedict tartrate 2 11-10 Route: l MG/ML / 02:00: Each [place] brinzolamid 00 Affected e 10 MG/ML Eye, Ophthalmic Dosing Suspension Weight 105.455, kg, TID, Start date: 11/09/14 21:00:00, Duration: 30 day, Stop date: 12/09/14 17:00:00 Brimonidine Yes 1 drp, Tobi benedict tartrate 2 11-09 OPTH, TID, l MG/ML / 14:21: # 8 mL, 3 Lidya nn brinzolamid 00 Refill(s) e 10 MG/ML Ophthalmic Suspension [Simbrinza] INV No 75 mg, 1 Memoria Clopidogrel 11-09 tab, l 75mg/placeb 14:00: Route: PO, Junito o tablet Drug form: Maintenance TAB, Dose Daily, Start date: 11/09/14 9:00:00, Duration: 89 day, Stop date: 02/05/15 9:00:00 Aspirin 325 No Notes: Tobi benedict MG Oral 11-09 Take with l Tablet 14:00: food. [place] 00 Insulin, No Notes: Memoria Aspart, 11-09 Roll in l Human 05:11: palms of hands gently; Do not shake vigorously . (Same as: NovoLOG) "single patient use only" Stable for 28 days at room temperatur e. Expires in days from ____Date Dextrose No 12.5 gm, Memor ia 50% Syringe 11-09 25 mL, l 05:11: Route: [place] IVP, Drug Form: INJ, Dosing Weight 105.455, kg, PRN, PRN Blood Glucose Results, Start date: 11/09/14 0:11:00, Duration: 30 day, Stop date: 12/09/14 0:10:00 Glucagon No 1 mg, Memoria 11-09 Route: IM, l 05:11: Drug form: [place] 00 PDR/INJ, PRN, Dosing Weight 105.455, kg, PRN Blood Glucose Results, Start date: 11/09/14 0:11:00, Duration: 30 day, Stop date: 12/09/14 0:10:00 Levemir No Notes: Memoria 11-09 Same as l 02:00: Levemir Do not hold insulin without contacting prescriber "single patient use only" Insulin, No Notes: Memoria Aspart, 11-09 Roll in l Human 01:24: palms of [place] hands gently; Do not shake vigorously . (Same as: NovoLOG) "single patient use only" Stable for 28 days at room temperatur e. Expires in days from ____Date Dextrose No 25 gm, 50 Tobi benedict 50% Syringe 11-09 mL, Route: l 01:24: IVP, Drug Junito Form: INJ, kg, PRN, PRN Blood Glucose Results, Start date: 11/08/14 20:24:00, Duration: 30 day, Stop date: 12/08/14 20:23:00 Glucagon No 1 mg, Memoria 11-09 Route: IM, l 01:24: Drug form: Junito 00 PDR/INJ, PRN, kg, PRN Blood Glucose Results, Start date: 11/08/14 20:24:00, Duration: 30 day, Stop date: 12/08/14 20:23:00 INV No 600 mg, 8 Memoria Clopidogrel 11-09 tab, l 75mg/placeb 01:00: Route: PO, [place] o tablet 00 Drug form: Loading TAB, ONCE, Dose Start date: 11/08/14 20:00:00, Stop date: 11/08/14 20:00:00 Ativan No Notes: Memoria 11-09 (Same as: l 00:49: Ativan) [place] Ondansetron No Notes: Tobi benedict 11-09 (Same as: l 00:37: Zofran) [place] MEDICATION WASTE Product Size: 4 mg Product Wasted: ___ mg Acetaminoph No Notes: Max Memoria en 11-09 acetaminop l 00:37: hen 4000 Jun[place] 00 mg/day (4 gm/day). (Same as: Tylenol Extra Strength) Amlodipine Yes 2.5 mg, Tobi benedict 11-09 PO, Daily, l 00:33: 0 Refill(s) spironolact Yes 50 mg = 1 M emoria one 50 mg 11-09 tab, PO, l oral tablet 00:33: Daily, # He rm 00 90 tab, 1 Refill(s) NovoLog Yes Special Memoria 11-09 Instructio l 00:33: ns: sliding scale SUB-Q TID-Before Meals Levemir Yes 20 unit, Memori a 11-09 SUB-Q, l 00:33: Bedtime, 0 Refill(s) Aspirin No 325 mg, 1 Memor ia 11-08 tab, l 22:17: Route: PO, Drug form: TAB, ONCE, kg, Priority: STAT, Start date: 11/08/14 17:17:00, Stop date: 11/08/14 17:17:00 Saline No Notes: Memoria Flush 0.9% 11-08 (Same as: l 21:14: BD Posiflush) Norvasc 2.5 Norvasc 2.5 Yes 1 QD TAKE 1 Univers MG Oral MG Oral TABLET ity of Tablet Tablet DAILY. [place] Physici ans NovoLOG NovoLOG Yes Inject 10 Univ ers FlexPen 100 FlexPen 100 units ity of UNIT/ML UNIT/ML before [place] Subcutaneou Subcutaneou each meal Physici s Solution s Solution subcutaneo ans Pen-injecto Pen-injecto usly r r Spironolact Spironolact Yes 1 QD TAKE 1 Univers one 50 MG one 50 MG TABLET ity of Oral Tablet Oral Tablet DAILY. [place] Physici ans Levemir Levemir Yes Inject 20 Univ ers FlexTouch FlexTouch units ity of 100 UNIT/ML 100 UNIT/ML subcu once [place] Subcutaneou Subcutaneou a day Physici s Solution s Solution befor an s Pen-injecto Pen-injecto meal. r r Jublia 10 % Jublia 10 % Yes U nivers External External ity of Solution Solution [place] Physici ans Vital Signs Vital Name Observation Time Observation Value Comments Source BMI Calculated 2014-12-06 12:26:00 Ben benitez [place] Weight 2014-12-06 12:26:00 [facility] [place] Height 2014-12-06 12:26:00 162.56 cm [facility] [place] Systolic (mm Hg) 2014-11-10 12:45:00 Tobi rial [place] Diastolic (mm Hg) 2014-11-10 12:45:00 Mem orial [place] Respitory Rate 2014-11-10 12:45:00 Memori al [place] Heart Rate 2014-11-10 12:45:00 [facility] [place] Temperature Oral (F) 2014-11-10 12:45:00 97.3 F [facility] [place] Temperature Oral (F) 2014-11-10 08:17:00 97.8 F [facility] [place] Systolic (mm Hg) 2014-11-10 08:17:00 Tobi rial [place] Diastolic (mm Hg) 2014-11-10 08:17:00 Mem orial [place] Respitory Rate 2014-11-10 08:17:00 Memori al [place] Systolic (mm Hg) 2014-11-10 04:33:00 Tobi rial [place] Diastolic (mm Hg) 2014-11-10 04:33:00 Mem orial [place] Temperature Oral (F) 2014-11-10 04:33:00 97.8 F [facility] [place] Respitory Rate 2014-11-10 04:33:00 Memori al [place] Heart Rate 2014-11-09 16:15:00 [facility] [place] Heart Rate 2014-11-09 16:00:00 [facility] [place] Weight 2014-11-09 02:52:00 [facility] [place] BMI Calculated 2014-11-09 02:52:00 Memori al [place] Height 2014-11-09 02:52:00 162.56 cm [facility] [place] Procedures Procedure Date / Time Performing Clinician Source Performed Abdominal hysterectomy [facility] [place] Bilateral inguinal hernia Memori al [place] repair Cholecystectomy [facility] [place] Hemorrhoidectomy Memorial Michael n Tonsillectomy and Memorial Lidya nn adenoidectomy Total splenectomy Memorial Lidya nn [facility] [place] [facility] History of Splenectomy [facility] History of Total Abdominal [facility] [place] Hysterectomy Physicians History of [facility] [place] Hemorrhoidectomy Physicians History of Tonsillectomy [facility] With Adenoidectomy Physicians History of Inguinal Hernia [facility] [place] Repair Physicians Plan of Care Planned Activity Planned Date Details Comments Source Future Scheduled 2019-11-08 INFLUENZA VACCINE (#1) [facility] Test 00:00:00 [code = INFLUENZA Medical Ce nter VACCINE (#1)] Future Scheduled 2008-01-[address] [facility] - Test 00:00:00 WELLNESS (YEAR 2 or Medical Center FIRST YEAR if no IPPE) [code = MEDICARE ANNUAL WELLNESS (YEAR 2 or FIRST YEAR if no IPPE)] Future Scheduled 2007 PNEUMOCOCCAL 67+ YRS [facility] - Test 00:00:00 (1 of 1 - [facility] [id number] PCV13) [code = PNEUMOCOCCAL 65+ YRS (1 of 1 - [id number] PCV13)] Encounters Start End Encounter Admission Attending Care Care Encounter Source Date/Time Date/Time Type Type Clinicians Facility Department ID 2015-04-10 2015-04-10 Outpatient JORDAN Goodwin [facility] [id number] 785 12:42:00 23:59:00 Vlad Rich 2015-04-10 2015-04-10 JULIA Covarrubias Neurology [id number] Univers 09:00:00 09:00:00 t; VLAD GOODWIN M.D. ity of KAZIM[facility] M.D. Physici ans 2015-04-09 2015-04-09 Outpatient MALIKA Kenny [id number] 785 12:48:00 23:59:00 Citlali 00 Eric 2015-03-27 2015-03-27 AppointJULIA Suarez [facility] [id number] Univers 11:15:00 11:15:00 t; CITLALI KENNY it y of [place], M.D. [place] M.D. Physici ans 2015-03-06 2015-03-06 Yessica GOODWIN [facility] [id number] Univers 09:00:00 09:00:00 t; [facility] 2014-12-06 2014-12-06 Outpatient Lyn [facility] [id number] 07:19:00 23:59:00 Matilda 00 Asiya 2014-11-08 2014-11-10 Outpatient Jesus [facility] [id number] 16:20:00 12:54:00 Deric Villafana Results Test Description Test Time Test Comments Results Result Comments Source POCT-GLUCOSE METER 2018-08-17 12:30:00 Test Item Value Reference Range Interpretation Comme nts POC-GLUCOSE METER ([facility]) (test 164 mg/dL 70-110 [address]) [facility] 7703 0 POCT-GLUCOSE [id number] 12:29:00 Test Item Value Reference Range Interpretation Comments POC-GLUCOSE METER 83 mg/dL 70-110 TESTED AT [place] [address] ([facility]) (test code = DAVE Borja [facility] [address] 1538) POCT-GLUCOSE [id number] 22:17:00 Test Item Value Reference Range Interpretation Comments POC-GLUCOSE METER 116 mg/dL 70-110 H TESTED AT [place] [address] ([facility]) (test code = DAVE Borja [facility] 1538) [id number] POCT-GLUCOSE [id number] 17:38:00 Test Item Value Reference Range Interpretation Comments POC-GLUCOSE METER 168 mg/dL 70-110 H TESTED AT [place] [address] ([facility]) (test code = DAVE Borja [facility] 1538) [id number] POCT-GLUCOSE [id number] 12:41:00 Test Item Value Reference Range Interpretation Comments POC-GLUCOSE METER 243 mg/dL 70-110 H TESTED AT [place] [address] ([facility]) (test code = DAVE Borja [facility] 1538) [id number] POCT-GLUCOSE [id number] 09:34:00 Test Item Value Reference Range Interpretation Comments POC-GLUCOSE METER 193 mg/dL 70-110 H TESTED AT [place] [address] ([facility]) (test code = DAVE Borja [facility] 1538) [id number] POCT-GLUCOSE [id number] 21:52:00 Test Item Value Reference Range Interpretation Comments POC-GLUCOSE METER 222 mg/dL 70-110 H TESTED AT [place] [address] ([facility]) (test code = DAVE Borja [facility] 1538) [id number] POCT-GLUCOSE [id number] 18:59:00 Test Item Value Reference Range Interpretation Comments POC-GLUCOSE METER 181 mg/dL 70-110 H TESTED AT [place] [address] ([facility]) (test code = DAVE Borja [facility] 1538) [address] POCT-GLUCOSE [id number] 14:21:00 Test Item Value Reference Range Interpretation Comments POC-GLUCOSE METER 179 mg/dL 70-110 H TESTED AT [facility] 6720 (BEAKER) (test code = DAVE Borja [facility] 1538) [address] POCT-GLUCOSE [id number] 09:40:00 Test Item Value Reference Range Interpretation Comments POC-GLUCOSE METER 211 mg/dL 70-110 H TESTED AT [facility] 6720 (BEAKER) (test code = DAVE Borja [facility] 1538) [id number] BASIC METABOLIC [id number] 06:49:00 Test Item Value Reference Range Interpretation Comments SODIUM (BEAKER) 132 meq/L 136-145 L (test code = 381) POTASSIUM (BEAKER) 4.1 meq/L 3.5-5.1 (test code = 379) CHLORIDE (BEAKER) 98 meq/L 98-107 (test code = 382) CO2 (BEAKER) (test 28 meq/L 22-29 code = 355) BLOOD UREA NITROGEN 28 mg/dL 7-21 H (BEAKER) (test code = 354) CREATININE (BEAKER) 0.72 mg/dL 0.57-1.25 (test code = 358) GLUCOSE RANDOM 242 mg/dL 70-105 H (BEAKER) (test code = 652) CALCIUM (BEAKER) 9.0 mg/dL 8.4-10.2 (test code = 697) EGFR (BEAKER) (test 79 mL/min/1.73 ESTIMA JONATHAN GFR IS code = 1092) sq m NOT ACCURATE CREATININE CLEARANCE IN PREDICTING GLOMERULAR FILTRATION RATE . ESTIMATED GFR I S NOT APPLICABLE FOR DIALYSIS PATIEN TS. CBC W/PLT COUNT & AUTO [id number] 06:45:00 Test Item Value Reference Range Interpretation Comments WHITE BLOOD CELL COUNT (BEAKER) 7.7 K/ L 3.5-10.5 (test code = 775) RED BLOOD CELL COUNT (BEAKER) 2.69 M/ L 3.93-5.22 L (test code = 761) HEMOGLOBIN (BEAKER) (test code = 9.8 GM/DL 11.2-15.7 L 410) HEMATOCRIT (BEAKER) (test code = 29.6 % 34.1-44.9 L 411) MEAN CORPUSCULAR VOLUME (BEAKER) 110.0 fL 79.4-94.8 H (test code = 753) MEAN CORPUSCULAR HEMOGLOBIN 36.4 pg 25.6-32.2 H (BEAKER) (test code = 751) MEAN CORPUSCULAR HEMOGLOBIN CONC 33.1 GM/DL 32.2-35.5 (BEAKER) (test code = 752) RED CELL DISTRIBUTION WIDTH 18.2 % 11.7-14.4 H (BEAKER) (test code = 412) PLATELET COUNT (BEAKER) (test 332 K/CU MM 150-450 code = 756) MEAN PLATELET VOLUME (BEAKER) 10.3 fL 9.4-12.3 (test code = 754) NUCLEATED RED BLOOD CELLS 1 /100 WBC 0-0 H (BEAKER) (test code = 413) NEUTROPHILS RELATIVE PERCENT 65 % (BEAKER) (test code = 429) LYMPHOCYTES RELATIVE PERCENT 19 % (BEAKER) (test code = 430) MONOCYTES RELATIVE PERCENT 14 % (BEAKER) (test code = 431) EOSINOPHILS RELATIVE PERCENT 1 % (BEAKER) (test code = 432) BASOPHILS RELATIVE PERCENT 0 % (BEAKER) (test code = 437) NEUTROPHILS ABSOLUTE COUNT 5.02 K/ L 1.56-6.13 (BEAKER) (test code = 670) LYMPHOCYTES ABSOLUTE COUNT 1.42 K/ L 1.18-3.74 (BEAKER) (test code = 414) MONOCYTES ABSOLUTE COUNT (BEAKER) 1.06 K/ L 0.24-0.36 H (test code = 415) EOSINOPHILS ABSOLUTE COUNT 0.11 K/ L 0.04-0.36 (BEAKER) (test code = 416) BASOPHILS ABSOLUTE COUNT (BEAKER) 0.03 K/ L 0.01-0.08 (test code = 417) IMMATURE GRANULOCYTES-RELATIVE 1 % 0-1 PERCENT (BEAKER) (test code = 2801) URINALYSIS W/ [id number] 04:40:00 Test Item Value Reference Range Interpretation Comments COLOR (BEAKER) (test code = 470) Yellow CLARITY (BEAKER) (test code = Hazy 469) SPECIFIC GRAVITY UA (BEAKER) 1.014 1.001-1.035 (test code = 468) PH UA (BEAKER) (test code = 467) 6.5 5.0-8.0 PROTEIN UA (BEAKER) (test code = 10 mg/dL Negative A 464) GLUCOSE UA (BEAKER) (test code = >1000 mg/dL Negative A 365) KETONES UA (BEAKER) (test code = Negative Negative 371) BILIRUBIN UA (BEAKER) (test code Negative Negative = 462) BLOOD UA (BEAKER) (test code = Negative Negative 461) NITRITE UA (BEAKER) (test code = Negative Negative 465) LEUKOCYTE ESTERASE UA (BEAKER) Large Negative A (test code = 466) UROBILINOGEN UA (BEAKER) (test 0.2 mg/dL 0.2-1.0 code = 463) RBC UA (BEAKER) (test code = 519) 1 /HPF WBC UA (BEAKER) (test code = 520) 93 /HPF BACTERIA (BEAKER) (test code = Many 517) SQUAMOUS EPITHELIAL (BEAKER) 1 /HPF (test code = 516) SOURCE(BEAKER) (test code = 2795) POCT-GLUCOSE [id number] 20:47:00 Test Item Value Reference Range Interpretation Comments POC-GLUCOSE METER 273 mg/dL 70-110 H TESTED AT [place] [address] ([facility]) (test code = DAVE Borja [facility] 1538) [address] POCT-GLUCOSE [id number] 18:20:00 Test Item Value Reference Range Interpretation Comments POC-GLUCOSE METER 305 mg/dL 70-110 H Notified Huong Beverly MD/TESTED ([facility]) (test code = AT [place] [address] [place] 1538) [facility] 7703 0 POCT-GLUCOSE [id number] 14:27:00 Test Item Value Reference Range Interpretation Comments POC-GLUCOSE METER 215 mg/dL 70-110 H TESTED AT [place] [address] ([facility]) (test code = DAVE Borja [facility] 1538) [address] POCT-GLUCOSE [id number] 12:10:00 Test Item Value Reference Range Interpretation Comments POC-GLUCOSE METER 278 mg/dL 70-110 H TESTED AT [place] [address] ([facility]) (test code = DAVE Borja [facility] 1538) [address] POCT-GLUCOSE [id number] 08:12:00 Test Item Value Reference Range Interpretation Comments POC-GLUCOSE METER 225 mg/dL 70-110 H TESTED AT [place] [address] (BEAKER) (test code = [facility] 1538) [address] POCT-GLUCOSE [id number] 21:36:00 Test Item Value Reference Range Interpretation Comments POC-GLUCOSE METER 272 mg/dL 70-110 H TESTED AT [place] [address] (BEAKER) (test code = [facility] 1538) [address] POCT-GLUCOSE [id number] 18:06:00 Test Item Value Reference Range Interpretation Comments POC-GLUCOSE METER 264 mg/dL 70-110 H TEST[facility] AT [place] [address] ([facility] (test code = [facility] 1538) [address] POCT-GLUCOSE [id number] 13:33:00 Test Item Value Reference Range Interpretation Comments POC-GLUCOSE METER 225 mg/dL 70-110 H TESTED AT [place] [address] ([facility]) (test code = [facility] 1538) [address] POCT-GLUCOSE [id number] 08:16:00 Test Item Value Reference Range Interpretation Comments POC-GLUCOSE METER 217 mg/dL 70-110 H TESTED AT [place] [address] ([facility] (test code = [facility] 1538) [address] [id number] 07:48:00 Test Item Value Reference Range Interpretation Comments MAGNESIUM (BEAKER) (test code = 1.6 mg/dL 1.6-2.6 627) BASIC METABOLIC [id number] 07:48:00 Test Item Value Reference Range Interpretation Comments SODIUM (BEAKER) 132 meq/L 136-145 L (test code = 381) POTASSIUM (BEAKER) 3.7 meq/L 3.5-5.1 (test code = 379) CHLORIDE (BEAKER) 94 meq/L 98-107 L (test code = 382) CO2 (BEAKER) (test 29 meq/L 22-29 code = 355) BLOOD UREA NITROGEN 20 mg/dL 7-21 (BEAKER) (test code = 354) CREATININE (BEAKER) 0.82 mg/dL 0.57-1.25 (test code = 358) GLUCOSE RANDOM 181 mg/dL 70-105 H (BEAKER) (test code = 652) CALCIUM (BEAKER) 9.4 mg/dL 8.4-10.2 (test code = 697) EGFR (BEAKER) (test 68 mL/min/1.73 ESTIMA JONATHAN GFR IS code = 1092) sq m NOT ACCURATE CREATININE CLEARANCE IN PREDICTING GLOMERULAR FILTRATION RATE . ESTIMATED GFR I S NOT APPLICABLE FOR DIALYSIS PATIEN TS. CBC W/PLT COUNT & AUTO [id number] 07:18:00 Test Item Value Reference Range Interpretation Comments WHITE BLOOD CELL COUNT (BEAKER) 7.5 K/ L 3.5-10.5 (test code = 775) RED BLOOD CELL COUNT (BEAKER) 3.14 M/ L 3.93-5.22 L (test code = 761) HEMOGLOBIN (BEAKER) (test code = 11.3 GM/DL 11.2-15.7 410) HEMATOCRIT (BEAKER) (test code = 33.7 % 34.1-44.9 L 411) MEAN CORPUSCULAR VOLUME (BEAKER) 107.3 fL 79.4-94.8 H (test code = 753) MEAN CORPUSCULAR HEMOGLOBIN 36.0 pg 25.6-32.2 H (BEAKER) (test code = 751) MEAN CORPUSCULAR HEMOGLOBIN CONC 33.5 GM/DL 32.2-35.5 (BEAKER) (test code = 752) RED CELL DISTRIBUTION WIDTH 18.3 % 11.7-14.4 H (BEAKER) (test code = 412) PLATELET COUNT (BEAKER) (test 307 K/CU MM 150-450 code = 756) MEAN PLATELET VOLUME (BEAKER) 10.7 fL 9.4-12.3 (test code = 754) NUCLEATED RED BLOOD CELLS 1 /100 WBC 0-0 H (BEAKER) (test code = 413) NEUTROPHILS RELATIVE PERCENT 65 % (BEAKER) (test code = 429) LYMPHOCYTES RELATIVE PERCENT 15 % (BEAKER) (test code = 430) MONOCYTES RELATIVE PERCENT 16 % (BEAKER) (test code = 431) EOSINOPHILS RELATIVE PERCENT 2 % (BEAKER) (test code = 432) BASOPHILS RELATIVE PERCENT 0 % (BEAKER) (test code = 437) NEUTROPHILS ABSOLUTE COUNT 4.92 K/ L 1.56-6.13 (BEAKER) (test code = 670) LYMPHOCYTES ABSOLUTE COUNT 1.12 K/ L 1.18-3.74 L (BEAKER) (test code = 414) MONOCYTES ABSOLUTE COUNT (BEAKER) 1.20 K/ L 0.24-0.36 H (test code = 415) EOSINOPHILS ABSOLUTE COUNT 0.17 K/ L 0.04-0.36 (BEAKER) (test code = 416) BASOPHILS ABSOLUTE COUNT (BEAKER) 0.03 K/ L 0.01-0.08 (test code = 417) IMMATURE GRANULOCYTES-RELATIVE 1 % 0-1 PERCENT (BEAKER) (test code = 2801) POCT-GLUCOSE [id number] 23:19:00 Test Item Value Reference Range Interpretation Comments POC-GLUCOSE METER 214 mg/dL 70-110 H TESTED [place] [address] ([facility] (test code = [facility] Huong [facility] 1538) [address] POCT-GLUCOSE [id number] 16:37:00 Test Item Value Reference Range Interpretation Comments POC-GLUCOSE METER 192 mg/dL 70-110 H TESTED AT [place] [address] ([facility]) (test code = [facility] Huong [facility] 1538) [address] POCT-GLUCOSE [id number] 12:47:00 Test Item Value Reference Range Interpretation Comments POC-GLUCOSE METER 233 mg/dL 70-110 H TESTED AT [place] [address] ([facility]) (test code = [facility] 1538) [address] BASIC METABOLIC [id number] 11:26:00 Test Item Value Reference Range Interpretation Comments SODIUM (BEAKER) 132 meq/L 136-145 L (test code = 381) POTASSIUM (BEAKER) 3.7 meq/L 3.5-5.1 (test code = 379) CHLORIDE (BEAKER) 94 meq/L 98-107 L (test code = 382) CO2 (BEAKER) (test 28 meq/L 22-29 code = 355) BLOOD UREA NITROGEN 11 mg/dL 7-21 (BEAKER) (test code = 354) CREATININE (BEAKER) 0.68 mg/dL 0.57-1.25 (test code = 358) GLUCOSE RANDOM 231 mg/dL 70-105 H (BEAKER) (test code = 652) CALCIUM (BEAKER) 9.4 mg/dL 8.4-10.2 (test code = 697) EGFR (BEAKER) (test 84 mL/min/1.73 ESTIMA JONATHAN GFR IS code = 1092) sq m NOT ACCURATE CREATININE CLEARANCE IN PREDICTING GLOMERULAR FILTRATION RATE . ESTIMATED GFR I S NOT APPLICABLE FOR DIALYSIS PATIEN TS. [id number] 11:26:00 Test Item Value Reference Range Interpretation Comments MAGNESIUM (BEAKER) (test code = 1.2 mg/dL 1.6-2.6 L 627) CBC W/PLT COUNT & AUTO [id number] 11:17:00 Test Item Value Reference Range Interpretation Comments WHITE BLOOD CELL COUNT (BEAKER) 9.7 K/ L 3.5-10.5 (test code = 775) RED BLOOD CELL COUNT (BEAKER) 3.22 M/ L 3.93-5.22 L (test code = 761) HEMOGLOBIN (BEAKER) (test code = 11.7 GM/DL 11.2-15.7 410) HEMATOCRIT (BEAKER) (test code = 34.2 % 34.1-44.9 411) MEAN CORPUSCULAR VOLUME (BEAKER) 106.2 fL 79.4-94.8 H (test code = 753) MEAN CORPUSCULAR HEMOGLOBIN 36.3 pg 25.6-32.2 H (BEAKER) (test code = 751) MEAN CORPUSCULAR HEMOGLOBIN CONC 34.2 GM/DL 32.2-35.5 (BEAKER) (test code = 752) RED CELL DISTRIBUTION WIDTH 18.1 % 11.7-14.4 H (BEAKER) (test code = 412) PLATELET COUNT (BEAKER) (test 273 K/CU MM 150-450 code = 756) MEAN PLATELET VOLUME (BEAKER) 10.5 fL 9.4-12.3 (test code = 754) NUCLEATED RED BLOOD CELLS 1 /100 WBC 0-0 H (BEAKER) (test code = 413) (CELLAVISION MANUAL DIFF)[id number] 11:17:00 Test Item Value Reference Range Interpretation Comments NEUTROPHILS - REL 80 % (CELLAVISION)(BEAKER) (test code = 2816) LYMPHOCYTES - REL 8 % (CELLAVISION)(BEAKER) (test code = 2817) MONOCYTES - REL 7 % (CELLAVISION)(BEAKER) (test code = 2818) EOSINOPHILS - REL 5 % (CELLAVISION)(BEAKER) (test code = 2819) NEUTROPHILS - ABS 7.76 K/ul 1.56-6.13 H (CELLAVISION)(BEAKER) (test code = 2830) LYMPHOCYTES - ABS 0.78 K/ul 1.18-3.74 L (CELLAVISION)(BEAKER) (test code = 2831) MONOCYTES - ABS 0.68 K/uL 0.24-0.36 H (CELLAVISION)(BEAKER) (test code = 2832) EOSINOPHILS - ABS 0.49 K/uL 0.04-0.36 H (CELLAVISION)(BEAKER) (test code = 2834) TOTAL COUNTED (BEAKER) (test code 100 = 1351) WBC MORPHOLOGY (BEAKER) (test Normal code = 487) PLT MORPHOLOGY (BEAKER) (test Normal code = 486) POLYCHROMATOPHILLIC RBCS(BEAKER) 1+ few (test code = 478) ANISOCYTOSIS (BEAKER) (test code 2+ moderate = 961) MACROCYTES (BEAKER) (test code = 2+ moderate 964) AMES-JOLLY BODIES (BEAKER) 1+ few (test code = 475) ARTIFACT (CELLAVISION)(BEAKER) Present (test code = 3432) PLATELET CONCENTRATION Adequate (CELLAVISION)(BEAKER) (test code = 3438) Received comment: User comments: Slide comments:POCT-GLUCOSE [id number] 07:57:00 Test Item Value Reference Range Interpretation Comments POC-GLUCOSE METER 165 mg/dL 70-110 H TESTED AT [facility] 6720 (BEAKER) (test code = DAVE [place] 1538) [id number] POCT-GLUCOSE [id number] 22:08:00 Test Item Value Reference Range Interpretation Comments POC-GLUCOSE METER 161 mg/dL 70-110 H TESTED AT [facility] 6720 (BEAKER) (test code = DAVE Borja [place] 1538) [address] POCT-GLUCOSE [id number] 18:10:00 Test Item Value Reference Range Interpretation Comments POC-GLUCOSE METER 141 mg/dL 70-110 H TESTED AT [facility] 6720 (BEAKER) (test code = DAVE Borja [place] 1538) [address] [id number] 14:55:00 Test Item Value Reference Range Interpretation Comments MAGNESIUM (BEAKER) 1.2 mg/dL 1.6-2.6 L Specimen slightly (test code = 627) hemolyzed BASIC METABOLIC [id number] 14:55:00 Test Item Value Reference Range Interpretation Comments SODIUM (BEAKER) 130 meq/L 136-145 L (test code = 381) POTASSIUM (BEAKER) 3.8 meq/L 3.5-5.1 Specimen slightly (test code = 379) hemolyzed CHLORIDE (BEAKER) 96 meq/L 98-107 L (test code = 382) CO2 (BEAKER) (test 26 meq/L 22-29 code = 355) BLOOD UREA NITROGEN 13 mg/dL 7-21 (BEAKER) (test code = 354) CREATININE (BEAKER) 0.60 mg/dL 0.57-1.25 Specimen slightly (test code = 358) hemolyzed GLUCOSE RANDOM 159 mg/dL 70-105 H (BEAKER) (test code = 652) CALCIUM (BEAKER) 9.2 mg/dL 8.4-10.2 (test code = 697) EGFR (BEAKER) (test 97 mL/min/1.73 ESTIMA JONATHAN GFR IS code = 1092) sq m NOT ACCURATE CREATININE CLEARANCE IN PREDICTING GLOMERULAR FILTRATION RATE . ESTIMATED GFR I S NOT APPLICABLE FOR DIALYSIS PATIEN TS. POCT-GLUCOSE [id number] 12:01:00 Test Item Value Reference Range Interpretation Comments POC-GLUCOSE METER 163 mg/dL 70-110 H TESTED AT [facility] 6720 (BEAKER) (test code = DAVE [place] 1538) [address] CBC W/PLT COUNT & AUTO [id number] 11:57:00 Test Item Value Reference Range Interpretation Comments WHITE BLOOD CELL COUNT (BEAKER) 9.4 K/ L 3.5-10.5 (test code = 775) RED BLOOD CELL COUNT (BEAKER) 2.87 M/ L 3.93-5.22 L (test code = 761) HEMOGLOBIN (BEAKER) (test code = 10.5 GM/DL 11.2-15.7 L 410) HEMATOCRIT (BEAKER) (test code = 30.2 % 34.1-44.9 L 411) MEAN CORPUSCULAR VOLUME (BEAKER) 105.2 fL 79.4-94.8 H (test code = 753) MEAN CORPUSCULAR HEMOGLOBIN 36.6 pg 25.6-32.2 H (BEAKER) (test code = 751) MEAN CORPUSCULAR HEMOGLOBIN CONC 34.8 GM/DL 32.2-35.5 (BEAKER) (test code = 752) RED CELL DISTRIBUTION WIDTH 17.9 % 11.7-14.4 H (BEAKER) (test code = 412) PLATELET COUNT (BEAKER) (test 245 K/CU MM 150-450 code = 756) MEAN PLATELET VOLUME (BEAKER) 10.7 fL 9.4-12.3 (test code = 754) NUCLEATED RED BLOOD CELLS 0 /100 WBC 0-0 (BEAKER) (test code = 413) NEUTROPHILS RELATIVE PERCENT 72 % (BEAKER) (test code = 429) LYMPHOCYTES RELATIVE PERCENT 12 % (BEAKER) (test code = 430) MONOCYTES RELATIVE PERCENT 14 % (BEAKER) (test code = 431) EOSINOPHILS RELATIVE PERCENT 2 % (BEAKER) (test code = 432) BASOPHILS RELATIVE PERCENT 1 % (BEAKER) (test code = 437) NEUTROPHILS ABSOLUTE COUNT 6.77 K/ L 1.56-6.13 H (BEAKER) (test code = 670) LYMPHOCYTES ABSOLUTE COUNT 1.08 K/ L 1.18-3.74 L (BEAKER) (test code = 414) MONOCYTES ABSOLUTE COUNT (BEAKER) 1.33 K/ L 0.24-0.36 H (test code = 415) EOSINOPHILS ABSOLUTE COUNT 0.15 K/ L 0.04-0.36 (BEAKER) (test code = 416) BASOPHILS ABSOLUTE COUNT (BEAKER) 0.05 K/ L 0.01-0.08 (test code = 417) IMMATURE GRANULOCYTES-RELATIVE 1 % 0-1 PERCENT (BEAKER) (test code = 2801) POCT-GLUCOSE [id number] 10:18:00 Test Item Value Reference Range Interpretation Comments POC-GLUCOSE METER 155 mg/dL 70-110 H TESTED AT [facility] 6720 (BEAKER) (test code = DAVE [place] 1538) [id number] POCT-GLUCOSE [id number] 08:13:00 Test Item Value Reference Range Interpretation Comments POC-GLUCOSE METER 157 mg/dL 70-110 H TESTED AT [facility] 67[address] (BEAKER) (test code = [place] 1538) [id number] POCT-GLUCOSE [id number] 21:57:00 Test Item Value Reference Range Interpretation Comments POC-GLUCOSE METER 181 mg/dL 70-110 H TESTED AT [facility] 67[address] (BEAKER) (test code = [place] 1538) [id number] POCT-GLUCOSE [id number] 17:39:00 Test Item Value Reference Range Interpretation Comments POC-GLUCOSE METER 232 mg/dL 70-110 H TESTED AT [facility] 67[address] (BEAKER) (test code = [place] 1538) [id number] POCT-GLUCOSE [id number] 12:55:00 Test Item Value Reference Range Interpretation Comments POC-GLUCOSE METER 207 mg/dL 70-110 H TESTED AT [facility] 67 (BEAKER) (test code = [place]AVE [place] 1538) [id number] CBC W/PLT COUNT & AUTO [id number] 12:50:00 Test Item Value Reference Range Interpretation Comments WHITE BLOOD CELL COUNT (BEAKER) 11.8 K/ L 3.5-10.5 H (test code = 775) RED BLOOD CELL COUNT (BEAKER) 2.74 M/ L 3.93-5.22 L (test code = 761) HEMOGLOBIN (BEAKER) (test code = 10.3 GM/DL 11.2-15.7 L 410) HEMATOCRIT (BEAKER) (test code = 28.6 % 34.1-44.9 L 411) MEAN CORPUSCULAR VOLUME (BEAKER) 104.4 fL 79.4-94.8 H (test code = 753) MEAN CORPUSCULAR HEMOGLOBIN 37.6 pg 25.6-32.2 H (BEAKER) (test code = 751) MEAN CORPUSCULAR HEMOGLOBIN CONC 36.0 GM/DL 32.2-35.5 H (BEAKER) (test code = 752) RED CELL DISTRIBUTION WIDTH 18.5 % 11.7-14.4 H (BEAKER) (test code = 412) PLATELET COUNT (BEAKER) (test 198 K/CU MM 150-450 code = 756) MEAN PLATELET VOLUME (BEAKER) 10.4 fL 9.4-12.3 (test code = 754) NUCLEATED RED BLOOD CELLS 0 /100 WBC 0-0 (BEAKER) (test code = 413) (CELLAVISION MANUAL DIFF)[id number] 12:50:00 Test Item Value Reference Range Interpretation Comments NEUTROPHILS - REL 79 % (CELLAVISION)(BEAKER) (test code = 2816) LYMPHOCYTES - REL 7 % (CELLAVISION)(BEAKER) (test code = 2817) MONOCYTES - REL 12 % (CELLAVISION)(BEAKER) (test code = 2818) EOSINOPHILS - REL 2 % (CELLAVISION)(BEAKER) (test code = 2819) NEUTROPHILS - ABS 9.32 K/ul 1.56-6.13 H (CELLAVISION)(BEAKER) (test code = 2830) LYMPHOCYTES - ABS 0.83 K/ul 1.18-3.74 L (CELLAVISION)(BEAKER) (test code = 2831) MONOCYTES - ABS 1.42 K/uL 0.24-0.36 H (CELLAVISION)(BEAKER) (test code = 2832) EOSINOPHILS - ABS 0.24 K/uL 0.04-0.36 (CELLAVISION)(BEAKER) (test code = 2834) TOTAL COUNTED (BEAKER) (test code 100 = 1351) WBC MORPHOLOGY (BEAKER) (test Normal code = 487) PLT MORPHOLOGY (BEAKER) (test Normal code = 486) ANISOCYTOSIS (BEAKER) (test code 2+ moderate = 961) MACROCYTES (BEAKER) (test code = 1+ few 964) BASOPHILIC STIPPLING (BEAKER) Present (test code = 473) ARTIFACT (CELLAVISION)(BEAKER) Present (test code = 3432) PLATELET CONCENTRATION Adequate (CELLAVISION)(BEAKER) (test code = 3438) Received comment: User comments: Slide comments:POCT-GLUCOSE [id number] 08:56:00 Test Item Value Reference Range Interpretation Comments POC-GLUCOSE METER 194 mg/dL 70-110 H TESTED AT [facility] [address] (BEAKER) (test code = [place] 1538) [id number] 06:11:00 Test Item Value Reference Range Interpretation Comments MAGNESIUM (BEAKER) (test code = 1.4 mg/dL 1.6-2.6 L 627) BASIC METABOLIC [id number] 06:11:00 Test Item Value Reference Range Interpretation Comments SODIUM (BEAKER) 130 meq/L 136-145 L (test code = 381) POTASSIUM (BEAKER) 4.1 meq/L 3.5-5.1 (test code = 379) CHLORIDE (BEAKER) 98 meq/L 98-107 (test code = 382) CO2 (BEAKER) (test 24 meq/L 22-29 code = 355) BLOOD UREA NITROGEN 19 mg/dL 7-21 (BEAKER) (test code = 354) CREATININE (BEAKER) 0.64 mg/dL 0.57-1.25 (test code = 358) GLUCOSE RANDOM 189 mg/dL 70-105 H (BEAKER) (test code = 652) CALCIUM (BEAKER) 9.5 mg/dL 8.4-10.2 (test code = 697) EGFR (BEAKER) (test 90 mL/min/1.73 ESTIMA JONATHAN GFR IS code = 1092) sq m NOT ACCURATE CREATININE CLEARANCE IN PREDICTING GLOMERULAR FILTRATION RATE . ESTIMATED GFR I S NOT APPLICABLE FOR DIALYSIS PATIEN TS. POCT-GLUCOSE [id number] 21:53:00 Test Item Value Reference Range Interpretation Comments POC-GLUCOSE METER 225 mg/dL 70-110 H TESTED AT [place] [address] ([facility]) (test code = [facility] 1538) [address] POCT-GLUCOSE [id number] 19:30:00 Test Item Value Reference Range Interpretation Comments POC-GLUCOSE METER 225 mg/dL 70-110 H TESTED AT [place] [address] ([facility]) (test code = [facility] 1538) [address] POCT-GLUCOSE [id number] 15:02:00 Test Item Value Reference Range Interpretation Comments POC-GLUCOSE METER 179 mg/dL 70-110 H TESTED AT [place] [address] ([facility] (test code = [facility] 1538) [address] [id number] 13:04:00 Test Item Value Reference Range Interpretation Comments MAGNESIUM (BEAKER) 1.5 mg/dL 1.6-2.6 L Specimen slightly (test code = 627) hemolyzed Check Serum Magnesium level 2 hours after IV magnesium replacement.Every 8 hours PRN for Creatinine greater than or equal to 2 mg/dL.[id number] 13:04:00 Test Item Value Reference Range Interpretation Comments POTASSIUM (BEAKER) 4.2 meq/L 3.5-5.1 Specimen slightly (test code = 379) hemolyzed Check Serum Magnesium level 2 hours after IV magnesium replacement.Every 8 hours PRN for Creatinine greater than or equal to 2 mg/dL.POCT-GLUCOSE [id number] 08:24:00 Test Item Value Reference Range Interpretation Comments POC-GLUCOSE METER 189 mg/dL 70-110 H TESTED AT [facility] 6720 (BEAKER) (test code = [place] 1538) [address] CBC W/PLT COUNT & AUTO [id number] 08:03:00 Test Item Value Reference Range Interpretation Comments WHITE BLOOD CELL COUNT (BEAKER) 15.0 K/ L 3.5-10.5 H (test code = 775) RED BLOOD CELL COUNT (BEAKER) 2.64 M/ L 3.93-5.22 L (test code = 761) HEMOGLOBIN (BEAKER) (test code = 10.0 GM/DL 11.2-15.7 L 410) HEMATOCRIT (BEAKER) (test code = 28.4 % 34.1-44.9 L 411) MEAN CORPUSCULAR VOLUME (BEAKER) 107.6 fL 79.4-94.8 H (test code = 753) MEAN CORPUSCULAR HEMOGLOBIN 37.9 pg 25.6-32.2 H (BEAKER) (test code = 751) MEAN CORPUSCULAR HEMOGLOBIN CONC 35.2 GM/DL 32.2-35.5 (BEAKER) (test code = 752) RED CELL DISTRIBUTION WIDTH 19.9 % 11.7-14.4 H (BEAKER) (test code = 412) PLATELET COUNT (BEAKER) (test 163 K/CU MM 150-450 code = 756) MEAN PLATELET VOLUME (BEAKER) 10.5 fL 9.4-12.3 (test code = 754) NUCLEATED RED BLOOD CELLS 0 /100 WBC 0-0 (BEAKER) (test code = 413) (CELLAVISION MANUAL DIFF)2018-08-09 08:03:00 Test Item Value Reference Range Interpretation Comments NEUTROPHILS - REL 90 % (CELLAVISION)(BEAKER) (test code = 2816) LYMPHOCYTES - REL 4 % (CELLAVISION)(BEAKER) (test code = 2817) MONOCYTES - REL 5 % (CELLAVISION)(BEAKER) (test code = 2818) NEUTROPHILS - ABS 13.50 K/ul 1.56-6.13 H (CELLAVISION)(BEAKER) (test code = 2830) LYMPHOCYTES - ABS 0.60 K/ul 1.18-3.74 L (CELLAVISION)(BEAKER) (test code = 2831) MONOCYTES - ABS 0.75 K/uL 0.24-0.36 H (CELLAVISION)(BEAKER) (test code = 2832) TOTAL COUNTED (BEAKER) (test code 100 = 1351) SMUDGE CELLS (BEAKER) (test code = Present 1371) GIANT PLATELETS (BEAKER) (test Present code = 313) HYPERSEGMENTATION Present (CELLAVISION)(BEAKER) (test code = 3445) ANISOCYTOSIS (BEAKER) (test code = 1+ few 961) MACROCYTES (BEAKER) (test code = 1+ few 964) BASOPHILIC STIPPLING (BEAKER) Present (test code = 473) PLATELET CONCENTRATION Adequate (CELLAVISION)(BEAKER) (test code = 3438) Received comment: User comments: Slide comments:CALCIUM, [id number] 05:17:00 Test Item Value Reference Range Interpretation Comments CALCIUM IONIZED (BEAKER) (test 1.26 mmol/L 1.12-1.27 code = 698) PH, BLOOD (BEAKER) (test code = 7.42 1810) [id number] 05:09:00 Test Item Value Reference Range Interpretation Comments PHOSPHORUS (BEAKER) (test code = 2.0 mg/dL 2.3-4.7 L 604) [id number] 05:09:00 Test Item Value Reference Range Interpretation Comments MAGNESIUM (BEAKER) (test code = 1.6 mg/dL 1.6-2.6 627) BASIC METABOLIC [id number] 05:09:00 Test Item Value Reference Range Interpretation Comments SODIUM (BEAKER) 131 meq/L 136-145 L (test code = 381) POTASSIUM (BEAKER) 4.0 meq/L 3.5-5.1 (test code = 379) CHLORIDE (BEAKER) 100 meq/L 98-107 (test code = 382) CO2 (BEAKER) (test 22 meq/L 22-29 code = 355) BLOOD UREA NITROGEN 28 mg/dL 7-21 H (BEAKER) (test code = 354) CREATININE (BEAKER) 0.71 mg/dL 0.57-1.25 (test code = 358) GLUCOSE RANDOM 198 mg/dL 70-105 H (BEAKER) (test code = 652) CALCIUM (BEAKER) 9.4 mg/dL 8.4-10.2 (test code = 697) EGFR (BEAKER) (test 80 mL/min/1.73 ESTIMA JONATHAN GFR IS code = 1092) sq m NOT ACCURATE CREATININE CLEARANCE IN PREDICTING GLOMERULAR FILTRATION RATE . ESTIMATED GFR I S NOT APPLICABLE FOR DIALYSIS PATIEN TS. POCT-GLUCOSE [id number] 23:39:00 Test Item Value Reference Range Interpretation Comments POC-GLUCOSE METER 200 mg/dL 70-110 H TESTED AT [facility] 6720 (BEAKER) (test code = [place] 1538) [id number] 22:42:00 Test Item Value Reference Range Interpretation Comments MAGNESIUM (BEAKER) (test code = 1.5 mg/dL 1.6-2.6 L 627) POTASSIUM-STAT [id number] 22:24:00 Test Item Value Reference Range Interpretation Comments POTASSIUM (BEAKER) (test code = 3.7 meq/L 3.6-5.5 379) BLOOD GAS, [id number] 22:24:00 Test Item Value Reference Range Interpretation Comments PH ARTERIAL (BEAKER) (test code = 7.45 7.35-7.45 383) PCO2 ARTERIAL (BEAKER) (test code 36 mmHg 35-45 = 384) PO2 ARTERIAL (BEAKER) (test code = 94 mmHg 80-90 H 385) O2 SATURATION ARTERIAL (BEAKER) 97.6 % 96.0-97.0 H (test code = 386) HCO3 ARTERIAL (BEAKER) (test code 24 mmol/L 21-29 = 388) BASE EXCESS ARTERIAL (BEAKER) 0.3 mmol/L -2.0-3.0 (test code = 387) PATIENT TEMPERATURE (BEAKER) (test 36.5 C code = 1818) FIO2 (BEAKER) (test code = 1819) 28.0 % CALCIUM, [id number] 22:23:00 Test Item Value Reference Range Interpretation Comments CALCIUM IONIZED (BEAKER) (test 1.21 mmol/L 1.12-1.27 code = 698) PH, BLOOD ([facility]) (test code = 7.44 1810) POCT-GLUCOSE [id number] 17:12:00 Test Item Value Reference Range Interpretation Comments POC-GLUCOSE METER 199 mg/dL 70-110 H TESTED AT [facility] 6720 ([facility]) (test code = [place] 1538) [address] POCT-GLUCOSE [id number] 12:12:00 Test Item Value Reference Range Interpretation Comments POC-GLUCOSE METER 184 mg/dL 70-110 H TESTED AT [facility] 6720 ([facility]) (test code = [place] 1538) [address] POCT-GLUCOSE [id number] 08:49:00 Test Item Value Reference Range Interpretation Comments POC-GLUCOSE METER 195 mg/dL 70-110 H TESTED AT [facility] 67 ([facility]) (test code = [place] [facility] 1538) [address] RAD, CHEST, 1 VIEW, NON [id number] 08:36:00Reason for exam:->s/p CV surgeryShould this be [...] surgical changes.Additional findings: None. Signed: Cristo Posadas Verified Date/Time: 08/08/2018 08:36:43 Reading Location: [facility] C013V Neuro Reading Room CBC W/PLT COUNT & AUTO [id number] 05:32:00 Test Item Value Reference Range Interpretation Comments WHITE BLOOD CELL COUNT (BEAKER) 14.8 K/ L 3.5-10.5 H (test code = 775) RED BLOOD CELL COUNT (BEAKER) 2.43 M/ L 3.93-5.22 L (test code = 761) HEMOGLOBIN (BEAKER) (test code = 8.7 GM/DL 11.2-15.7 L 410) HEMATOCRIT (BEAKER) (test code = 26.6 % 34.1-44.9 L 411) MEAN CORPUSCULAR VOLUME (BEAKER) 109.5 fL 79.4-94.8 H (test code = 753) MEAN CORPUSCULAR HEMOGLOBIN 35.8 pg 25.6-32.2 H (BEAKER) (test code = 751) MEAN CORPUSCULAR HEMOGLOBIN CONC 32.7 GM/DL 32.2-35.5 (BEAKER) (test code = 752) RED CELL DISTRIBUTION WIDTH 21.3 % 11.7-14.4 H (BEAKER) (test code = 412) PLATELET COUNT (BEAKER) (test 125 K/CU MM 150-450 L code = 756) MEAN PLATELET VOLUME (BEAKER) 11.0 fL 9.4-12.3 (test code = 754) NUCLEATED RED BLOOD CELLS 0 /100 WBC 0-0 (BEAKER) (test code = 413) NEUTROPHILS RELATIVE PERCENT 84 % (BEAKER) (test code = 429) LYMPHOCYTES RELATIVE PERCENT 4 % (BEAKER) (test code = 430) MONOCYTES RELATIVE PERCENT 10 % (BEAKER) (test code = 431) EOSINOPHILS RELATIVE PERCENT 0 % (BEAKER) (test code = 432) BASOPHILS RELATIVE PERCENT 0 % (BEAKER) (test code = 437) NEUTROPHILS ABSOLUTE COUNT 12.45 K/ L 1.56-6.13 H (BEAKER) (test code = 670) LYMPHOCYTES ABSOLUTE COUNT 0.62 K/ L 1.18-3.74 L (BEAKER) (test code = 414) MONOCYTES ABSOLUTE COUNT (BEAKER) 1.50 K/ L 0.24-0.36 H (test code = 415) EOSINOPHILS ABSOLUTE COUNT 0.05 K/ L 0.04-0.36 (BEAKER) (test code = 416) BASOPHILS ABSOLUTE COUNT (BEAKER) 0.03 K/ L 0.01-0.08 (test code = 417) IMMATURE GRANULOCYTES-RELATIVE 1 % 0-1 PERCENT (BEAKER) (test code = 2801) [id number] 05:14:00 Test Item Value Reference Range Interpretation Comments MAGNESIUM (BEAKER) (test code = 2.1 mg/dL 1.6-2.6 627) BASIC METABOLIC [id number] 05:14:00 Test Item Value Reference Range Interpretation Comments SODIUM (BEAKER) 136 meq/L 136-145 (test code = 381) POTASSIUM (BEAKER) 4.0 meq/L 3.5-5.1 (test code = 379) CHLORIDE (BEAKER) 105 meq/L 98-107 (test code = 382) CO2 (BEAKER) (test 22 meq/L 22-29 code = 355) BLOOD UREA NITROGEN 29 mg/dL 7-21 H (BEAKER) (test code = 354) CREATININE (BEAKER) 0.71 mg/dL 0.57-1.25 (test code = 358) GLUCOSE RANDOM 185 mg/dL 70-105 H (BEAKER) (test code = 652) CALCIUM (BEAKER) 9.0 mg/dL 8.4-10.2 (test code = 697) EGFR (BEAKER) (test 80 mL/min/1.73 ESTIMA JONATHAN GFR IS code = 1092) sq m NOT ACCURATE CREATININE CLEARANCE IN PREDICTING GLOMERULAR FILTRATION RATE . ESTIMATED GFR I S NOT APPLICABLE FOR DIALYSIS PATIEN TS. CALCIUM, [id number] 05:07:00 Test Item Value Reference Range Interpretation Comments CALCIUM IONIZED (BEAKER) (test 1.21 mmol/L 1.12-1.27 code = 698) PH, BLOOD (BEAKER) (test code = 7.42 1810) BLOOD GAS, [id number] 05:06:00 Test Item Value Reference Range Interpretation Comments PH ARTERIAL (BEAKER) (test code = 7.42 7.35-7.45 383) PCO2 ARTERIAL (BEAKER) (test code 39 mmHg 35-45 = 384) PO2 ARTERIAL (BEAKER) (test code = 98 mmHg 80-90 H 385) O2 SATURATION ARTERIAL (BEAKER) 97.4 % 96.0-97.0 H (test code = 386) HCO3 ARTERIAL (BEAKER) (test code 25 mmol/L 21-29 = 388) BASE EXCESS ARTERIAL (BEAKER) 0.2 mmol/L -2.0-3.0 (test code = 387) PATIENT TEMPERATURE (BEAKER) (test 37.5 C code = 1818) FIO2 (BEAKER) (test code = 1819) 28.0 % LACTIC ACID, [id number] 05:01:00 Test Item Value Reference Range Interpretation Comments LACTATE BLOOD ARTERIAL (2) 1.0 mmol/L 0.5-2.2 (BEAKER) (test code = 2874) POCT-GLUCOSE [id number] 23:22:00 Test Item Value Reference Range Interpretation Comments POC-GLUCOSE METER 252 mg/dL 70-110 H TESTED AT [facility] 6720 (BEAKER) (test code = [place] 1538) [address] LACTIC ACID, [id number] 19:42:00 Test Item Value Reference Range Interpretation Comments LACTATE BLOOD ARTERIAL (2) 1.6 mmol/L 0.5-2.2 (BEAKER) (test code = 2874) BLOOD GAS, [id number] 19:33:00 Test Item Value Reference Range Interpretation Comments PH ARTERIAL (BEAKER) (test code = 7.42 7.35-7.45 383) PCO2 ARTERIAL (BEAKER) (test code 33 mmHg 35-45 L = 384) PO2 ARTERIAL (BEAKER) (test code 106 mmHg 80-90 H = 385) O2 SATURATION ARTERIAL (BEAKER) 97.9 % 96.0-97.0 H (test code = 386) HCO3 ARTERIAL (BEAKER) (test code 21 mmol/L 21-29 = 388) BASE EXCESS ARTERIAL (BEAKER) -2.7 mmol/L -2.0-3.0 L (test code = 387) PATIENT TEMPERATURE (BEAKER) 37.2 C (test code = 1818) FIO2 (BEAKER) (test code = 1819) 36.0 % LACTIC ACID, [id number] 16:37:00 Test Item Value Reference Range Interpretation Comments LACTATE BLOOD ARTERIAL (2) 2.6 mmol/L 0.5-2.2 H (BEAKER) (test code = 2874) BLOOD GAS, [id number] 16:21:00 Test Item Value Reference Range Interpretation Comments PH ARTERIAL (BEAKER) (test code = 7.36 7.35-7.45 383) PCO2 ARTERIAL (BEAKER) (test code 34 mmHg 35-45 L = 384) PO2 ARTERIAL (BEAKER) (test code 92 mmHg 80-90 H = 385) O2 SATURATION ARTERIAL (BEAKER) 96.7 % 96.0-97.0 (test code = 386) HCO3 ARTERIAL (BEAKER) (test code 19 mmol/L 21-29 L = 388) BASE EXCESS ARTERIAL (BEAKER) -6.0 mmol/L -2.0-3.0 L (test code = 387) PATIENT TEMPERATURE (BEAKER) 37.4 C (test code = 1818) FIO2 (BEAKER) (test code = 1819) 36.0 % BLOOD GAS, [id number] 15:01:00 Test Item Value Reference Range Interpretation Comments PH ARTERIAL (BEAKER) (test code = 7.38 7.35-7.45 383) PCO2 ARTERIAL (BEAKER) (test code 32 mmHg 35-45 L = 384) PO2 ARTERIAL (BEAKER) (test code 84 mmHg 80-90 = 385) O2 SATURATION ARTERIAL (BEAKER) 96.1 % 96.0-97.0 (test code = 386) HCO3 ARTERIAL (BEAKER) (test code 18 mmol/L 21-29 L = 388) BASE EXCESS ARTERIAL (BEAKER) -6.0 mmol/L -2.0-3.0 L (test code = 387) PATIENT TEMPERATURE (BEAKER) 37.2 C (test code = 1818) FIO2 (BEAKER) (test code = 1819) 36.0 % OXYGEN SATURATION, [id number] 14:58:00 Test Item Value Reference Range Interpretation Comments O2 SATURATION (MEASURED) (BEAKER) 63.8 % (test code = 1455) LACTIC ACID, [id number] 08:57:00 Test Item Value Reference Range Interpretation Comments LACTATE BLOOD ARTERIAL (2) 0.9 mmol/L 0.5-2.2 (BEAKER) (test code = 2874) RAD, CHEST, 1 VIEW, NON [id number] 06:53:00Reason for exam:->s/p CV surgeryShould this be [...] Signed: Freddy Sheldon MDReport Verified Date/Time: 08/07/2018 06:53:26 Reading Location: [facility] B1 C013Y CT Body Reading Room Electronically signedby: FREDDY SHELDON MD on 08/07/2018 06:53 [id number] 04:25:00 Test Item Value Reference Range Interpretation Comments PHOSPHORUS (BEAKER) (test code = 2.6 mg/dL 2.3-4.7 604) [id number] 04:25:00 Test Item Value Reference Range Interpretation Comments MAGNESIUM (BEAKER) (test code = 1.9 mg/dL 1.6-2.6 627) BASIC METABOLIC [id number] 04:25:00 Test Item Value Reference Range Interpretation Comments SODIUM (BEAKER) 137 meq/L 136-145 (test code = 381) POTASSIUM (BEAKER) 3.9 meq/L 3.5-5.1 (test code = 379) CHLORIDE (BEAKER) 109 meq/L 98-107 H (test code = 382) CO2 (BEAKER) (test 22 meq/L 22-29 code = 355) BLOOD UREA NITROGEN 24 mg/dL 7-21 H (BEAKER) (test code = 354) CREATININE (BEAKER) 0.69 mg/dL 0.57-1.25 (test code = 358) GLUCOSE RANDOM 168 mg/dL 70-105 H (BEAKER) (test code = 652) CALCIUM (BEAKER) 9.2 mg/dL 8.4-10.2 (test code = 697) EGFR (BEAKER) (test 83 mL/min/1.73 ESTIMA JONATHAN GFR IS code = 1092) sq m NOT ACCURATE CREATININE CLEARANCE IN PREDICTING GLOMERULAR FILTRATION RATE . ESTIMATED GFR I S NOT APPLICABLE FOR DIALYSIS PATIEN TS. CBC (HEMOGRAM ONLY)2018-08-07 03:49:00 Test Item Value Reference Range Interpretation Comments WHITE BLOOD CELL COUNT (BEAKER) 14.0 K/ L 3.5-10.5 H (test code = 775) RED BLOOD CELL COUNT (BEAKER) 2.46 M/ L 3.93-5.22 L (test code = 761) HEMOGLOBIN (BEAKER) (test code = 9.0 GM/DL 11.2-15.7 L 410) HEMATOCRIT (BEAKER) (test code = 26.4 % 34.1-44.9 L 411) MEAN CORPUSCULAR VOLUME (BEAKER) 107.3 fL 79.4-94.8 H (test code = 753) MEAN CORPUSCULAR HEMOGLOBIN 36.6 pg 25.6-32.2 H (BEAKER) (test code = 751) MEAN CORPUSCULAR HEMOGLOBIN CONC 34.1 GM/DL 32.2-35.5 (BEAKER) (test code = 752) RED CELL DISTRIBUTION WIDTH 23.0 % 11.7-14.4 H (BEAKER) (test code = 412) PLATELET COUNT (BEAKER) (test 125 K/CU MM 150-450 L code = 756) MEAN PLATELET VOLUME (BEAKER) 10.8 fL 9.4-12.3 (test code = 754) NUCLEATED RED BLOOD CELLS 0 /100 WBC 0-0 (BEAKER) (test code = 413) CALCIUM, [id number] 03:31:00 Test Item Value Reference Range Interpretation Comments CALCIUM IONIZED (BEAKER) (test 1.23 mmol/L 1.12-1.27 code = 698) PH, BLOOD (BEAKER) (test code = 7.40 1810) BLOOD GAS, [id number] 03:19:00 Test Item Value Reference Range Interpretation Comments PH ARTERIAL (BEAKER) (test code = 7.40 7.35-7.45 383) PCO2 ARTERIAL (BEAKER) (test code 38 mmHg 35-45 = 384) PO2 ARTERIAL (BEAKER) (test code 111 mmHg 80-90 H = 385) O2 SATURATION ARTERIAL (BEAKER) 98.0 % 96.0-97.0 H (test code = 386) HCO3 ARTERIAL (BEAKER) (test code 23 mmol/L 21-29 = 388) BASE EXCESS ARTERIAL (BEAKER) -1.6 mmol/L -2.0-3.0 (test code = 387) PATIENT TEMPERATURE (BEAKER) 37.3 C (test code = 1818) FIO2 (BEAKER) (test code = 1819) 32.0 % [id number] 22:08:00 Test Item Value Reference Range Interpretation Comments MAGNESIUM (BEAKER) (test code = 2.2 mg/dL 1.6-2.6 627) BLOOD GAS, [id number] 22:00:00 Test Item Value Reference Range Interpretation Comments PH ARTERIAL (BEAKER) (test code = 7.40 7.35-7.45 383) PCO2 ARTERIAL (BEAKER) (test code 35 mmHg 35-45 = 384) PO2 ARTERIAL (BEAKER) (test code 109 mmHg 80-90 H = 385) O2 SATURATION ARTERIAL (BEAKER) 97.9 % 96.0-97.0 H (test code = 386) HCO3 ARTERIAL (BEAKER) (test code 21 mmol/L 21-29 = 388) BASE EXCESS ARTERIAL (BEAKER) -2.9 mmol/L -2.0-3.0 L (test code = 387) PATIENT TEMPERATURE (BEAKER) 37.4 C (test code = 1818) FIO2 (BEAKER) (test code = 1819) 32.0 % GLUCOSE-STAT [id number] 22:00:00 Test Item Value Reference Range Interpretation Comments GLUCOSE RANDOM (BEAKER) (test code 187 mg/dL 70-110 H = 652) HGB/HCT (H&H) - STAT [id number] 22:00:00 Test Item Value Reference Range Interpretation Comments HEMOGLOBIN (BEAKER) (test code = 10.3 g/dL 12.0-15.0 L 410) HEMATOCRIT (BEAKER) (test code = 30.0 % 36.0-45.0 L 411) SODIUM NA-STAT [id number] 21:59:00 Test Item Value Reference Range Interpretation Comments SODIUM (BEAKER) (test code = 381) 137 meq/L 135-148 POTASSIUM-STAT [id number] 21:59:00 Test Item Value Reference Range Interpretation Comments POTASSIUM (BEAKER) (test code = 4.0 meq/L 3.6-5.5 379) OXYGEN SATURATION, [id number] 21:59:00 Test Item Value Reference Range Interpretation Comments O2 SATURATION (MEASURED) (BEAKER) 70.7 % (test code = 1455) CALCIUM, [id number] 21:59:00 Test Item Value Reference Range Interpretation Comments CALCIUM IONIZED (BEAKER) (test 1.23 mmol/L 1.12-1.27 code = 698) PH, BLOOD (BEAKER) (test code = 7.41 1810) POCT-GLUCOSE [id number] 17:02:00 Test Item Value Reference Range Interpretation Comments POC-GLUCOSE METER 223 mg/dL 70-110 H TESTED AT [place] [address] ([facility]) (test code = [facility] [place] [facility] 1538) [address] POCT-GLUCOSE [id number] 12:13:00 Test Item Value Reference Range Interpretation Comments POC-GLUCOSE METER 109 mg/dL 70-110 TESTED AT [place] [address] ([facility]) (test code = [facility] [place] [facility] 1538) [address] POCT-GLUCOSE [id number] 10:41:00 Test Item Value Reference Range Interpretation Comments POC-GLUCOSE METER 105 mg/dL 70-110 TESTED AT [place] [address] ([facility]) (test code = [facility] 1538) [address] COMPREHENSIVE METABOLIC [id number] 09:37:00 Test Item Value Reference Range Interpretation Comments TOTAL PROTEIN 5.7 gm/dL 6.0-8.3 L (BEAKER) (test code = 770) ALBUMIN (BEAKER) 4.0 g/dL 3.5-5.0 (test code = 1145) ALKALINE PHOSPHATASE 44 U/L 40-150 (BEAKER) (test code = 346) BILIRUBIN TOTAL 1.0 mg/dL 0.2-1.2 (BEAKER) (test code = 377) SODIUM (BEAKER) (test 139 meq/L 136-145 code = 381) POTASSIUM (BEAKER) 4.0 meq/L 3.5-5.1 (test code = 379) CHLORIDE (BEAKER) 111 meq/L 98-107 H (test code = 382) CO2 (BEAKER) (test 20 meq/L 22-29 L code = 355) BLOOD UREA NITROGEN 23 mg/dL 7-21 H (BEAKER) (test code = 354) CREATININE (BEAKER) 0.84 mg/dL 0.57-1.25 (test code = 358) GLUCOSE RANDOM 100 mg/dL 70-105 (BEAKER) (test code = 652) CALCIUM (BEAKER) 9.3 mg/dL 8.4-10.2 (test code = 697) AST (SGOT) (BEAKER) 31 U/L 5-34 (test code = 353) ALT (SGPT) (BEAKER) 11 U/L 6-55 (test code = 347) EGFR (BEAKER) (test 66 mL/min/1.73 ESTIMA JONATHAN GFR IS code = 1092) sq m NOT ACCURATE CREATININE CLEARANCE IN PREDICTING GLOMERULAR FILTRATION RATE . ESTIMATED GFR I S NOT APPLICABLE FOR DIALYSIS PATIEN TS. BLOOD GAS, [id number] 08:39:00 Test Item Value Reference Range Interpretation Comments PH ARTERIAL (BEAKER) (test code = 7.59 7.35-7.45 H 383) PCO2 ARTERIAL (BEAKER) (test code 21 mmHg 35-45 L = 384) PO2 ARTERIAL (BEAKER) (test code 132 mmHg 80-90 H = 385) O2 SATURATION ARTERIAL (BEAKER) 99.1 % 96.0-97.0 H (test code = 386) HCO3 ARTERIAL (BEAKER) (test code 20 mmol/L 21-29 L = 388) BASE EXCESS ARTERIAL (BEAKER) -1.3 mmol/L -2.0-3.0 (test code = 387) PATIENT TEMPERATURE (BEAKER) 37.1 C (test code = 1818) FIO2 (BEAKER) (test code = 1819) 40.0 % RAD, CHEST, 1 VIEW, NON [id number] 07:24:00Reason for exam:->s/p CV surgeryShould this be [...] Stable surgical changes.Additional findings: None. Signed: JR Josue, Anselmo Mccullough Verified Date/Time: 08/06/2018 07:24:21 Reading Location: [facility] Radiology ReadingRoom POCT-GLUCOSE [id number] 06:19:00 Test Item Value Reference Range Interpretation Comments POC-GLUCOSE METER 157 mg/dL 70-110 H TESTED AT [place] [address] (BEAKER) (test code = [facility] 1538) [id number] POCT-GLUCOSE [id number] 06:19:00 Test Item Value Reference Range Interpretation Comments POC-GLUCOSE METER 162 mg/dL 70-110 H TESTED AT [place] [address] [facility] (test code = [facility] [place] [facility] 1538) [id number] POCT-GLUCOSE [id number] 06:18:00 Test Item Value Reference Range Interpretation Comments POC-GLUCOSE METER 120 mg/dL 70-110 H TESTED AT [place] [address] [facility] (test code = [facility] 1538) [id number] 04:49:00 Test Item Value Reference Range Interpretation Comments POTASSIUM (BEAKER) (test code = 4.4 meq/L 3.5-5.1 379) Every 8 hours PRN for Creatinine greater than or equal to 2 mg/dL.MAGNESIUM 2018-08-06 04:49:00 Test Item Value Reference Range Interpretation Comments MAGNESIUM (BEAKER) (test code = 2.3 mg/dL 1.6-2.6 627) Every 8 hours PRN for Creatinine greater than or equal to 2 mg/dL.PHOSPHORUS 2018-08-06 04:49:00 Test Item Value Reference Range Interpretation Comments PHOSPHORUS (BEAKER) (test code = 3.2 mg/dL 2.3-4.7 604) Every 8 hours PRN for Creatinine greater than or equal to 2 mg/dL.BASIC METABOLIC [id number] 04:49:00 Test Item Value Reference Range Interpretation Comments SODIUM (BEAKER) 139 meq/L 136-145 (test code = 381) POTASSIUM (BEAKER) 4.4 meq/L 3.5-5.1 (test code = 379) CHLORIDE (BEAKER) 112 meq/L 98-107 H (test code = 382) CO2 (BEAKER) (test 20 meq/L 22-29 L code = 355) BLOOD UREA NITROGEN 24 mg/dL 7-21 H (BEAKER) (test code = 354) CREATININE (BEAKER) 0.88 mg/dL 0.57-1.25 (test code = 358) GLUCOSE RANDOM 143 mg/dL 70-105 H (BEAKER) (test code = 652) CALCIUM (BEAKER) 8.9 mg/dL 8.4-10.2 (test code = 697) EGFR (BEAKER) (test 62 mL/min/1.73 ESTIMA JONATHAN GFR IS code = 1092) sq m NOT ACCURATE CREATININE CLEARANCE IN PREDICTING GLOMERULAR FILTRATION RATE . ESTIMATED GFR I S NOT APPLICABLE FOR DIALYSIS PATIEN TS. Every 8 hours PRN for Creatinine greater than or equal to 2 mg/dL.LACTIC ACID, [id number] 04:44:00 Test Item Value Reference Range Interpretation Comments LACTATE BLOOD ARTERIAL (2) 2.3 mmol/L 0.5-2.2 H (BEAKER) (test code = 2874) CBC (HEMOGRAM ONLY)2018-08-06 04:37:00 Test Item Value Reference Range Interpretation Comments WHITE BLOOD CELL COUNT (BEAKER) 8.0 K/ L 3.5-10.5 (test code = 775) RED BLOOD CELL COUNT (BEAKER) 1.98 M/ L 3.93-5.22 L (test code = 761) HEMOGLOBIN (BEAKER) (test code = 7.5 GM/DL 11.2-15.7 L 410) HEMATOCRIT (BEAKER) (test code = 21.9 % 34.1-44.9 L 411) MEAN CORPUSCULAR VOLUME (BEAKER) 110.6 fL 79.4-94.8 H (test code = 753) MEAN CORPUSCULAR HEMOGLOBIN 37.9 pg 25.6-32.2 H (BEAKER) (test code = 751) MEAN CORPUSCULAR HEMOGLOBIN CONC 34.2 GM/DL 32.2-35.5 (BEAKER) (test code = 752) RED CELL DISTRIBUTION WIDTH 21.7 % 11.7-14.4 H (BEAKER) (test code = 412) PLATELET COUNT (BEAKER) (test 116 K/CU MM 150-450 L code = 756) MEAN PLATELET VOLUME (BEAKER) 10.6 fL 9.4-12.3 (test code = 754) NUCLEATED RED BLOOD CELLS 1 /100 WBC 0-0 H (BEAKER) (test code = 413) OXYGEN SATURATION, [id number] 04:32:00 Test Item Value Reference Range Interpretation Comments O2 SATURATION (MEASURED) (BEAKER) 69.8 % (test code = 1455) CALCIUM, [id number] 04:28:00 Test Item Value Reference Range Interpretation Comments CALCIUM IONIZED (BEAKER) (test 1.19 mmol/L 1.12-1.27 code = 698) PH, BLOOD (BEAKER) (test code = 7.41 1810) BLOOD GAS, [id number] 04:27:00 Test Item Value Reference Range Interpretation Comments PH ARTERIAL (BEAKER) (test code = 7.40 7.35-7.45 383) PCO2 ARTERIAL (BEAKER) (test code 35 mmHg 35-45 = 384) PO2 ARTERIAL (BEAKER) (test code 120 mmHg 80-90 H = 385) O2 SATURATION ARTERIAL (BEAKER) 98.3 % 96.0-97.0 H (test code = 386) HCO3 ARTERIAL (BEAKER) (test code 21 mmol/L 21-29 = 388) BASE EXCESS ARTERIAL (BEAKER) -3.1 mmol/L -2.0-3.0 L (test code = 387) PATIENT TEMPERATURE (BEAKER) 37.4 C (test code = 1818) FIO2 (BEAKER) (test code = 1819) 40.0 % POCT-GLUCOSE [id number] 02:20:00 Test Item Value Reference Range Interpretation Comments POC-GLUCOSE METER 165 mg/dL 70-110 H TESTED AT [facility] 6720 (BEAKER) (test code = [place] 1538) [address] POCT-GLUCOSE [id number] 02:20:00 Test Item Value Reference Range Interpretation Comments POC-GLUCOSE METER 180 mg/dL 70-110 H TESTED AT [facility] 6720 (BEAKER) (test code = [place] 1538) [address] POCT-GLUCOSE [id number] 02:20:00 Test Item Value Reference Range Interpretation Comments POC-GLUCOSE METER 191 mg/dL 70-110 H TESTED AT [facility] 6720 (BEAKER) (test code = [place] 1538) [address] CALCIUM, [id number] 00:05:00 Test Item Value Reference Range Interpretation Comments CALCIUM IONIZED (BEAKER) (test 1.19 mmol/L 1.12-1.27 code = 698) PH, BLOOD (BEAKER) (test code = 7.37 1810) LACTIC ACID, [id number] 00:05:00 Test Item Value Reference Range Interpretation Comments LACTATE BLOOD 4.1 mmol/L 0.5-2.2 H Specimen sligh tly ARTERIAL (2) (BEAKER) hemoly zed (test code = 2874) BLOOD GAS, [id number] 00:04:00 Test Item Value Reference Range Interpretation Comments PH ARTERIAL (BEAKER) (test code = 7.38 7.35-7.45 383) PCO2 ARTERIAL (BEAKER) (test code 33 mmHg 35-45 L = 384) PO2 ARTERIAL (BEAKER) (test code 103 mmHg 80-90 H = 385) O2 SATURATION ARTERIAL (BEAKER) 97.8 % 96.0-97.0 H (test code = 386) HCO3 ARTERIAL (BEAKER) (test code 19 mmol/L 21-29 L = 388) BASE EXCESS ARTERIAL (BEAKER) -5.3 mmol/L -2.0-3.0 L (test code = 387) PATIENT TEMPERATURE (BEAKER) 36.6 C (test code = 1818) FIO2 (BEAKER) (test code = 1819) 40.0 % GLUCOSE-STAT [id number] 00:04:00 Test Item Value Reference Range Interpretation Comments GLUCOSE RANDOM (BEAKER) (test code 173 mg/dL 70-110 H = 652) HGB/HCT (H&H) - STAT [id number] 00:04:00 Test Item Value Reference Range Interpretation Comments HEMOGLOBIN (BEAKER) (test code = 8.6 g/dL 12.0-15.0 L 410) HEMATOCRIT (BEAKER) (test code = 25.0 % 36.0-45.0 L 411) [id number] 00:02:00 Test Item Value Reference Range Interpretation Comments MAGNESIUM (BEAKER) (test code = 2.4 mg/dL 1.6-2.6 627) Check Serum Magnesium level 2 hours after IV magnesium replacement.SODIUM NA- STAT [id number] 00:00:00 Test Item Value Reference Range Interpretation Comments SODIUM (BEAKER) (test code = 381) 137 meq/L 135-148 POTASSIUM-STAT [id number] 00:00:00 Test Item Value Reference Range Interpretation Comments POTASSIUM (BEAKER) (test code = 4.1 meq/L 3.6-5.5 379) POCT-GLUCOSE [id number] 22:43:00 Test Item Value Reference Range Interpretation Comments POC-GLUCOSE METER 182 mg/dL 70-110 H TESTED AT [facility] 67 [facility] (test code = [facility] 1538) [address] POCT-GLUCOSE [id number] 22:43:00 Test Item Value Reference Range Interpretation Comments POC-GLUCOSE METER 174 mg/dL 70-110 H TESTED AT [place] [address] ([facility] (test code = [facility] 1538) [address] POCT-GLUCOSE [id number] 22:43:00 Test Item Value Reference Range Interpretation Comments POC-GLUCOSE METER 150 mg/dL 70-110 H TESTED AT [place] [address] ([facility] (test code = [facility] 1538) [address] CALCIUM, [id number] 19:54:00 Test Item Value Reference Range Interpretation Comments CALCIUM IONIZED (BEAKER) (test 1.16 mmol/L 1.12-1.27 code = 698) PH, BLOOD (BEAKER) (test code = 7.39 1810) LACTIC ACID, [id number] 19:40:00 Test Item Value Reference Range Interpretation Comments LACTATE BLOOD ARTERIAL (2) 2.3 mmol/L 0.5-2.2 H (BEAKER) (test code = 2874) [id number] 19:38:00 Test Item Value Reference Range Interpretation Comments MAGNESIUM (BEAKER) (test code = 2.2 mg/dL 1.6-2.6 627) SODIUM NA-STAT [id number] 19:24:00 Test Item Value Reference Range Interpretation Comments SODIUM (BEAKER) (test code = 381) 135 meq/L 135-148 POTASSIUM-STAT [id number] 19:24:00 Test Item Value Reference Range Interpretation Comments POTASSIUM (BEAKER) (test code = 3.7 meq/L 3.6-5.5 379) BLOOD GAS, [id number] 19:24:00 Test Item Value Reference Range Interpretation Comments PH ARTERIAL (BEAKER) (test code = 7.39 7.35-7.45 383) PCO2 ARTERIAL (BEAKER) (test code 36 mmHg 35-45 = 384) PO2 ARTERIAL (BEAKER) (test code 100 mmHg 80-90 H = 385) O2 SATURATION ARTERIAL (BEAKER) 97.7 % 96.0-97.0 H (test code = 386) HCO3 ARTERIAL (BEAKER) (test code 22 mmol/L 21-29 = 388) BASE EXCESS ARTERIAL (BEAKER) -3.2 mmol/L -2.0-3.0 L (test code = 387) PATIENT TEMPERATURE (BEAKER) 36.1 C (test code = 1818) FIO2 (BEAKER) (test code = 1819) 40.0 % GLUCOSE-STAT [id number] 19:24:00 Test Item Value Reference Range Interpretation Comments GLUCOSE RANDOM (BEAKER) (test code 163 mg/dL 70-110 H = 652) HGB/HCT (H&H) - STAT [id number] 19:24:00 Test Item Value Reference Range Interpretation Comments HEMOGLOBIN (BEAKER) (test code = 9.5 g/dL 12.0-15.0 L 410) HEMATOCRIT (BEAKER) (test code = 28.0 % 36.0-45.0 L 411) OXYGEN SATURATION, [id number] 19:23:00 Test Item Value Reference Range Interpretation Comments O2 SATURATION (MEASURED) (BEAKER) 73.8 % (test code = 1455) POCT-GLUCOSE [id number] 17:19:00 Test Item Value Reference Range Interpretation Comments POC-GLUCOSE METER 128 mg/dL 70-110 H TESTED AT [facility] 6720 (BEAKER) (test code = [place] 1538) [address] OXYGEN SATURATION, [id number] 17:19:00 Test Item Value Reference Range Interpretation Comments O2 SATURATION (MEASURED) (BEAKER) 60.6 % (test code = 1455) POCT-GLUCOSE [id number] 17:19:00 Test Item Value Reference Range Interpretation Comments POC-GLUCOSE METER 158 mg/dL 70-110 H TESTED AT [facility] 67 ([facility]) (test code = [place] 1538) [address] LACTIC ACID, [id number] 17:01:00 Test Item Value Reference Range Interpretation Comments LACTATE BLOOD ARTERIAL (2) 1.5 mmol/L 0.5-2.2 (BEAKER) (test code = 2874) HEMOGLOBIN AND [id number] 16:49:00 Test Item Value Reference Range Interpretation Comments HEMOGLOBIN (BEAKER) (test code = 8.8 GM/DL 11.2-15.7 L 410) HEMATOCRIT (BEAKER) (test code = 26.5 % 34.1-44.9 L 411) POCT-GLUCOSE [id number] 16:31:00 Test Item Value Reference Range Interpretation Comments POC-GLUCOSE METER 191 mg/dL 70-110 H TESTED AT [facility] 6720 ([facility]) (test code = [facility] [place] 1538) [address] BLOOD GAS, [id number] 16:26:00 Test Item Value Reference Range Interpretation Comments PH ARTERIAL (BEAKER) (test code = 7.43 7.35-7.45 383) PCO2 ARTERIAL (BEAKER) (test code 35 mmHg 35-45 = 384) PO2 ARTERIAL (BEAKER) (test code 148 mmHg 80-90 H = 385) O2 SATURATION ARTERIAL (BEAKER) 99.0 % 96.0-97.0 H (test code = 386) HCO3 ARTERIAL (BEAKER) (test code 23 mmol/L 21-29 = 388) BASE EXCESS ARTERIAL (BEAKER) -1.9 mmol/L -2.0-3.0 (test code = 387) PATIENT TEMPERATURE (BEAKER) 35.4 C (test code = 1818) FIO2 (BEAKER) (test code = 1819) 40.0 % [id number] 13:48:00 Test Item Value Reference Range Interpretation Comments MAGNESIUM (BEAKER) 2.2 mg/dL 1.6-2.6 Specimen slightly (test code = 627) hemolyzed [id number] 13:48:00 Test Item Value Reference Range Interpretation Comments PHOSPHORUS (BEAKER) 4.2 mg/dL 2.3-4.7 Specimen slightly (test code = 604) hemolyzed BASIC METABOLIC [id number] 13:48:00 Test Item Value Reference Range Interpretation Comments SODIUM (BEAKER) 136 meq/L 136-145 (test code = 381) POTASSIUM (BEAKER) 4.3 meq/L 3.5-5.1 Specimen slightly (test code = 379) hemolyzed CHLORIDE (BEAKER) 108 meq/L 98-107 H (test code = 382) CO2 (BEAKER) (test 19 meq/L 22-29 L code = 355) BLOOD UREA NITROGEN 24 mg/dL 7-21 H (BEAKER) (test code = 354) CREATININE (BEAKER) 0.83 mg/dL 0.57-1.25 Specimen slightly (test code = 358) hemolyzed GLUCOSE RANDOM 181 mg/dL 70-105 H (BEAKER) (test code = 652) CALCIUM (BEAKER) 9.8 mg/dL 8.4-10.2 (test code = 697) EGFR (BEAKER) (test 67 mL/min/1.73 ESTIMA JONATHAN GFR IS code = 1092) sq m NOT ACCURATE CREATININE CLEARANCE IN PREDICTING GLOMERULAR FILTRATION RATE . ESTIMATED GFR I S NOT APPLICABLE FOR DIALYSIS PATIEN TS. LACTIC ACID, [id number] 13:42:00 Test Item Value Reference Range Interpretation Comments LACTATE BLOOD 1.1 mmol/L 0.5-2.2 Specimen sligh tly ARTERIAL (2) (BEAKER) hemoly zed (test code = 2874) RAD, CHEST, 1 VIEW, NON [id number] 13:35:00Reason for exam:->POST OPShould this be performed at the bedside?->YesFINAL REPORT TECHNIQUE: Frontal chest radiograph dated 08/05/2018. CLINICAL HISTORY: Post op COMPARISON STUDY: Chest radiograph dated 07/29/2018 IMPRESSION:Endotracheal tube is 2.7 cm above the kenn. [...] intact and well aligned. Signed: Logan Bean port Verified Date/Time: 08/05/2018 13:35:26 Reading Location: [facility] Radiology Reading Room CBC W/PLT COUNT & AUTO [id number] 13:33:00 Test Item Value Reference Range Interpretation Comments WHITE BLOOD CELL COUNT (BEAKER) 9.0 K/ L 3.5-10.5 (test code = 775) RED BLOOD CELL COUNT (BEAKER) 2.80 M/ L 3.93-5.22 L (test code = 761) HEMOGLOBIN (BEAKER) (test code = 10.3 GM/DL 11.2-15.7 L 410) HEMATOCRIT (BEAKER) (test code = 30.8 % 34.1-44.9 L 411) MEAN CORPUSCULAR VOLUME (BEAKER) 110.0 fL 79.4-94.8 H (test code = 753) MEAN CORPUSCULAR HEMOGLOBIN 36.8 pg 25.6-32.2 H (BEAKER) (test code = 751) MEAN CORPUSCULAR HEMOGLOBIN CONC 33.4 GM/DL 32.2-35.5 (BEAKER) (test code = 752) RED CELL DISTRIBUTION WIDTH 20.7 % 11.7-14.4 H (BEAKER) (test code = 412) PLATELET COUNT (BEAKER) (test 127 K/CU MM 150-450 L code = 756) MEAN PLATELET VOLUME (BEAKER) 10.5 fL 9.4-12.3 (test code = 754) NUCLEATED RED BLOOD CELLS 1 /100 WBC 0-0 H (BEAKER) (test code = 413) NEUTROPHILS RELATIVE PERCENT 79 % (BEAKER) (test code = 429) LYMPHOCYTES RELATIVE PERCENT 11 % (BEAKER) (test code = 430) MONOCYTES RELATIVE PERCENT 8 % (BEAKER) (test code = 431) EOSINOPHILS RELATIVE PERCENT 0 % (BEAKER) (test code = 432) BASOPHILS RELATIVE PERCENT 0 % (BEAKER) (test code = 437) NEUTROPHILS ABSOLUTE COUNT 7.09 K/ L 1.56-6.13 H (BEAKER) (test code = 670) LYMPHOCYTES ABSOLUTE COUNT 0.98 K/ L 1.18-3.74 L (BEAKER) (test code = 414) MONOCYTES ABSOLUTE COUNT (BEAKER) 0.73 K/ L 0.24-0.36 H (test code = 415) EOSINOPHILS ABSOLUTE COUNT 0.03 K/ L 0.04-0.36 L (BEAKER) (test code = 416) BASOPHILS ABSOLUTE COUNT (BEAKER) 0.02 K/ L 0.01-0.08 (test code = 417) IMMATURE GRANULOCYTES-RELATIVE 1 % 0-1 PERCENT (BEAKER) (test code = 2801) BLOOD GAS, [id number] 13:27:00 Test Item Value Reference Range Interpretation Comments PH ARTERIAL (BEAKER) (test code = 7.47 7.35-7.45 H 383) PCO2 ARTERIAL (BEAKER) (test code 29 mmHg 35-45 L = 384) PO2 ARTERIAL (BEAKER) (test code 176 mmHg 80-90 H = 385) O2 SATURATION ARTERIAL (BEAKER) 99.3 % 96.0-97.0 H (test code = 386) HCO3 ARTERIAL (BEAKER) (test code 21 mmol/L 21-29 = 388) BASE EXCESS ARTERIAL (BEAKER) -2.3 mmol/L -2.0-3.0 L (test code = 387) PATIENT TEMPERATURE (BEAKER) 35.5 C (test code = 1818) FIO2 (BEAKER) (test code = 1819) 60.0 % OXYGEN SATURATION, [id number] 13:21:00 Test Item Value Reference Range Interpretation Comments O2 SATURATION (MEASURED) (BEAKER) 64.2 % (test code = 1455) [id number] 12:22:00 Test Item Value Reference Range Interpretation Comments FIBRINOGEN LEVEL (BEAKER) (test 225 mg/dl 225-434 code = 658) [id number] 12:22:00 Test Item Value Reference Range Interpretation Comments PARTIAL THROMBOPLASTIN TIME 33.4 seconds 22.5-36.0 (BEAKER) (test code = 760) PROTHROMBIN TIME/[id number] 12:21:00 Test Item Value Reference Range Interpretation Comments PROTIME (BEAKER) (test code = 19.2 seconds 11.9-14.2 H 759) INR (BEAKER) (test code = 370) 1.7 <=5.9 Effective 08/04/2018: PT Reference Range ChangeNew: 11.9-14.2 Previous: 11.7- 14.7RECOMMENDED COUMADIN/WARFARIN INR THERAPY RANGESSTANDARD DOSE: 2.0-3.0 Includes: PROPHYLAXIS for venous thrombosis, systemic embolization; TREATMENT for venous thrombosis and/or pulmonary embolus.HIGH RISK: Target INR is2.5-3.5 for patients wiht mechanical heart valves.CBC (HEMOGRAM ONLY)2018-08-05 12:14:00 Test Item Value Reference Range Interpretation Comments WHITE BLOOD CELL COUNT (BEAKER) 8.3 K/ L 3.5-10.5 (test code = 775) RED BLOOD CELL COUNT (BEAKER) 2.62 M/ L 3.93-5.22 L (test code = 761) HEMOGLOBIN (BEAKER) (test code = 9.7 GM/DL 11.2-15.7 L 410) HEMATOCRIT (BEAKER) (test code = 29.0 % 34.1-44.9 L 411) MEAN CORPUSCULAR VOLUME (BEAKER) 110.7 fL 79.4-94.8 H (test code = 753) MEAN CORPUSCULAR HEMOGLOBIN 37.0 pg 25.6-32.2 H (BEAKER) (test code = 751) MEAN CORPUSCULAR HEMOGLOBIN CONC 33.4 GM/DL 32.2-35.5 (BEAKER) (test code = 752) RED CELL DISTRIBUTION WIDTH 20.4 % 11.7-14.4 H (BEAKER) (test code = 412) PLATELET COUNT (BEAKER) (test 117 K/CU MM 150-450 L code = 756) MEAN PLATELET VOLUME (BEAKER) 10.5 fL 9.4-12.3 (test code = 754) NUCLEATED RED BLOOD CELLS 1 /100 WBC 0-0 H (BEAKER) (test code = 413) [id number] 11:30:00 Test Item Value Reference Range Interpretation Comments ACTIVATED CLOTTING TIME 109 sec TEST ED AT [facility] 6720 (BEAKER) (test code = [place] [address]) [id number] 11:30:00 Test Item Value Reference Range Interpretation Comments ACTIVATED CLOTTING TIME 433 sec TEST ED AT [place] [address] ([facility]) (test code = [place] [address]) [address] [id number] 11:30:00 Test Item Value Reference Range Interpretation Comments ACTIVATED CLOTTING TIME 532 sec TEST ED AT [place] [address] ([facility]) (test code = [place] [address]) [address] [id number] 11:30:00 Test Item Value Reference Range Interpretation Comments ACTIVATED CLOTTING TIME 648 sec TEST ED AT [place] [address] ([facility]) (test code = [place] [facility]) [address] [id number] 11:30:00 Test Item Value Reference Range Interpretation Comments ACTIVATED CLOTTING TIME 483 sec TEST ED AT [place] [address] ([facility]) (test code = [place] [facility]) [address] [id number] 11:30:00 Test Item Value Reference Range Interpretation Comments ACTIVATED CLOTTING TIME 395 sec TEST ED AT [place] [address] ([facility]) (test code = [place] [address]) [address] CALCIUM, [id number] 11:21:00 Test Item Value Reference Range Interpretation Comments CALCIUM IONIZED (BEAKER) (test 1.31 mmol/L 1.12-1.27 H code = 698) PH, BLOOD (BEAKER) (test code = 7.38 1810) BLOOD GAS, [id number] 11:21:00 Test Item Value Reference Range Interpretation Comments PH ARTERIAL (BEAKER) (test code = 7.39 7.35-7.45 383) PCO2 ARTERIAL (BEAKER) (test code 38 mmHg 35-45 = 384) PO2 ARTERIAL (BEAKER) (test code 286 mmHg 80-90 H = 385) O2 SATURATION ARTERIAL (BEAKER) 99.7 % 96.0-97.0 H (test code = 386) HCO3 ARTERIAL (BEAKER) (test code 23 mmol/L 21-29 = 388) BASE EXCESS ARTERIAL (BEAKER) -2.0 mmol/L -2.0-3.0 (test code = 387) PATIENT TEMPERATURE (BEAKER) 35.9 C (test code = 1818) FIO2 (BEAKER) (test code = 1819) 100.0 % SODIUM NA-STAT [id number] 11:21:00 Test Item Value Reference Range Interpretation Comments SODIUM (BEAKER) (test code = 381) 134 meq/L 135-148 L GLUCOSE-STAT [id number] 11:21:00 Test Item Value Reference Range Interpretation Comments GLUCOSE RANDOM (BEAKER) (test code 185 mg/dL 70-110 H = 652) HGB/HCT (H&H) - STAT [id number] 11:21:00 Test Item Value Reference Range Interpretation Comments HEMOGLOBIN (BEAKER) (test code = 8.6 g/dL 12.0-15.0 L 410) HEMATOCRIT (BEAKER) (test code = 25.0 % 36.0-45.0 L 411) POTASSIUM-STAT [id number] 11:20:00 Test Item Value Reference Range Interpretation Comments POTASSIUM (BEAKER) (test code = 3.8 meq/L 3.6-5.5 379) POTASSIUM-STAT [id number] 10:50:00 Test Item Value Reference Range Interpretation Comments POTASSIUM (BEAKER) (test code = 4.7 meq/L 3.6-5.5 379) BLOOD GAS, [id number] 10:50:00 Test Item Value Reference Range Interpretation Comments PH ARTERIAL (BEAKER) (test code = 7.43 7.35-7.45 383) PCO2 ARTERIAL (BEAKER) (test code 36 mmHg 35-45 = 384) PO2 ARTERIAL (BEAKER) (test code 319 mmHg 80-90 H = 385) O2 SATURATION ARTERIAL (BEAKER) 99.7 % 96.0-97.0 H (test code = 386) HCO3 ARTERIAL (BEAKER) (test code 24 mmol/L 21-29 = 388) BASE EXCESS ARTERIAL (BEAKER) -0.7 mmol/L -2.0-3.0 (test code = 387) PATIENT TEMPERATURE (BEAKER) 35.6 C (test code = 1818) FIO2 (BEAKER) (test code = 1819) 65.0 % SODIUM NA-STAT [id number] 10:50:00 Test Item Value Reference Range Interpretation Comments SODIUM (BEAKER) (test code = 381) 132 meq/L 135-148 L GLUCOSE-STAT [id number] 10:50:00 Test Item Value Reference Range Interpretation Comments GLUCOSE RANDOM (BEAKER) (test code 185 mg/dL 70-110 H = 652) HGB/HCT (H&H) - STAT [id number] 10:50:00 Test Item Value Reference Range Interpretation Comments HEMOGLOBIN (BEAKER) (test code = 9.2 g/dL 12.0-15.0 L 410) HEMATOCRIT (BEAKER) (test code = 27.0 % 36.0-45.0 L 411) POTASSIUM-STAT [id number] 10:23:00 Test Item Value Reference Range Interpretation Comments POTASSIUM (BEAKER) (test code = 5.2 meq/L 3.6-5.5 379) BLOOD GAS, [id number] 10:23:00 Test Item Value Reference Range Interpretation Comments PH ARTERIAL (BEAKER) (test code = 7.40 7.35-7.45 383) PCO2 ARTERIAL (BEAKER) (test code 41 mmHg 35-45 = 384) PO2 ARTERIAL (BEAKER) (test code 287 mmHg 80-90 H = 385) O2 SATURATION ARTERIAL (BEAKER) 99.7 % 96.0-97.0 H (test code = 386) HCO3 ARTERIAL (BEAKER) (test code 25 mmol/L 21-29 = 388) BASE EXCESS ARTERIAL (BEAKER) -0.3 mmol/L -2.0-3.0 (test code = 387) PATIENT TEMPERATURE (BEAKER) 35.3 C (test code = 1818) FIO2 (BEAKER) (test code = 1819) 65.0 % GLUCOSE-STAT [id number] 10:23:00 Test Item Value Reference Range Interpretation Comments GLUCOSE RANDOM (BEAKER) (test code 170 mg/dL 70-110 H = 652) HGB/HCT (H&H) - STAT [id number] 10:23:00 Test Item Value Reference Range Interpretation Comments HEMOGLOBIN (BEAKER) (test code = 8.9 g/dL 12.0-15.0 L 410) HEMATOCRIT (BEAKER) (test code = 26.0 % 36.0-45.0 L 411) SODIUM NA-STAT [id number] 10:23:00 Test Item Value Reference Range Interpretation Comments SODIUM (BEAKER) (test code = 381) 132 meq/L 135-148 L BLOOD GAS, [id number] 09:58:00 Test Item Value Reference Range Interpretation Comments PH ARTERIAL (BEAKER) (test code = 7.41 7.35-7.45 383) PCO2 ARTERIAL (BEAKER) (test code 40 mmHg 35-45 = 384) PO2 ARTERIAL (BEAKER) (test code 278 mmHg 80-90 H = 385) O2 SATURATION ARTERIAL (BEAKER) 99.7 % 96.0-97.0 H (test code = 386) HCO3 ARTERIAL (BEAKER) (test code 26 mmol/L 21-29 = 388) BASE EXCESS ARTERIAL (BEAKER) -0.2 mmol/L -2.0-3.0 (test code = 387) PATIENT TEMPERATURE (BEAKER) 30.8 C (test code = 1818) FIO2 (BEAKER) (test code = 1819) 60.0 % SODIUM NA-STAT [id number] 09:58:00 Test Item Value Reference Range Interpretation Comments SODIUM (BEAKER) (test code = 381) 132 meq/L 135-148 L GLUCOSE-STAT [id number] 09:58:00 Test Item Value Reference Range Interpretation Comments GLUCOSE RANDOM (BEAKER) (test code 160 mg/dL 70-110 H = 652) HGB/HCT (H&H) - STAT [id number] 09:58:00 Test Item Value Reference Range Interpretation Comments HEMOGLOBIN (BEAKER) (test code = 8.9 g/dL 12.0-15.0 L 410) HEMATOCRIT (BEAKER) (test code = 26.0 % 36.0-45.0 L 411) POTASSIUM-STAT [id number] 09:56:00 Test Item Value Reference Range Interpretation Comments POTASSIUM (BEAKER) (test code = 4.8 meq/L 3.6-5.5 379) BLOOD GAS, [id number] 09:29:00 Test Item Value Reference Range Interpretation Comments PH ARTERIAL (BEAKER) (test code = 7.38 7.35-7.45 383) PCO2 ARTERIAL (BEAKER) (test code 37 mmHg 35-45 = 384) PO2 ARTERIAL (BEAKER) (test code 376 mmHg 80-90 H = 385) O2 SATURATION ARTERIAL (BEAKER) 99.8 % 96.0-97.0 H (test code = 386) HCO3 ARTERIAL (BEAKER) (test code 24 mmol/L 21-29 = 388) BASE EXCESS ARTERIAL (BEAKER) -3.2 mmol/L -2.0-3.0 L (test code = 387) PATIENT TEMPERATURE (BEAKER) 29.2 C (test code = 1818) FIO2 (BEAKER) (test code = 1819) 80.0 % SODIUM NA-STAT [id number] 09:29:00 Test Item Value Reference Range Interpretation Comments SODIUM (BEAKER) (test code = 381) 131 meq/L 135-148 L GLUCOSE-STAT [id number] 09:29:00 Test Item Value Reference Range Interpretation Comments GLUCOSE RANDOM (BEAKER) (test code 180 mg/dL 70-110 H = 652) HGB/HCT (H&H) - STAT [id number] 09:29:00 Test Item Value Reference Range Interpretation Comments HEMOGLOBIN (BEAKER) (test code = 7.1 g/dL 12.0-15.0 L 410) HEMATOCRIT (BEAKER) (test code = 21.0 % 36.0-45.0 L 411) POTASSIUM-STAT [id number] 09:28:00 Test Item Value Reference Range Interpretation Comments POTASSIUM (BEAKER) (test code = 5.1 meq/L 3.6-5.5 379) CALCIUM, [id number] 08:02:00 Test Item Value Reference Range Interpretation Comments CALCIUM IONIZED (BEAKER) (test 1.14 mmol/L 1.12-1.27 code = 698) PH, BLOOD (BEAKER) (test code = 7.54 1810) BLOOD GAS, [id number] 08:02:00 Test Item Value Reference Range Interpretation Comments PH ARTERIAL (BEAKER) (test code = 7.56 7.35-7.45 H 383) PCO2 ARTERIAL (BEAKER) (test code 28 mmHg 35-45 L = 384) PO2 ARTERIAL (BEAKER) (test code = 340 mmHg 80-90 H 385) O2 SATURATION ARTERIAL (BEAKER) 99.8 % 96.0-97.0 H (test code = 386) HCO3 ARTERIAL (BEAKER) (test code 24 mmol/L -29 = 388) BASE EXCESS ARTERIAL (BEAKER) 2.3 mmol/L -2.0-3.0 (test code = 387) PATIENT TEMPERATURE (BEAKER) (test 36.0 C code = 1818) FIO2 (BEAKER) (test code = 1819) 100.0 % SODIUM NA-STAT [id number] 08:02:00 Test Item Value Reference Range Interpretation Comments SODIUM (BEAKER) (test code = 381) 134 meq/L 135-148 L HGB/HCT (H&H) - STAT [id number] 08:02:00 Test Item Value Reference Range Interpretation Comments HEMOGLOBIN (BEAKER) (test code = 11.2 g/dL 12.0-15.0 L 410) HEMATOCRIT (BEAKER) (test code = 33.0 % 36.0-45.0 L 411) GLUCOSE-STAT [id number] 08:01:00 Test Item Value Reference Range Interpretation Comments GLUCOSE RANDOM (BEAKER) (test code 106 mg/dL 70-110 = 652) POTASSIUM-STAT [id number] 08:01:00 Test Item Value Reference Range Interpretation Comments POTASSIUM (BEAKER) (test code = 3.8 meq/L 3.6-5.5 379) POCT-GLUCOSE [id number] 05:58:00 Test Item Value Reference Range Interpretation Comments POC-GLUCOSE METER 114 mg/dL 70-110 H TESTED AT [facility] 6720 (BEAKER) (test code = [place] [place] 1538) [id number] TISSUE [id number] 15:29:00Surgical Pathology Report Case: [id number] Authorizing Provider: Sabas Aquino, Collected: 07/28/2018 1410 Ordering Location: [facility] Received: 07/28/2018 1614 PERIOPERATIVE SERVICES Pathologist: Alvaro Chavez MD Specimen: Plaque, Carotid PART A RIGHT CAROTIDPLAQUE, ENDARTERECTOMY:CALCIFIC ATHEROSCLEROSIS. Signing Pathologist Direct Phone Line: [phone] signed by Alvaro Chavez MD on 08/02/2018 at 3:29 [id number], [id number] stenosis, rightRight carotidA. Received in formalin labeled "carotid" a 3 x 1.3 x 1 cm foreman-pink vascular segment. Foreman- yellow and calcified plaque is identified. Chief Of Staff sections are submitted in cassette A1 following decalcification. CG/pl Performed.POCT-GLUCOSE METER 2018-07-31 16:25:00 Test Item Value Reference Range Interpretation Comments POC-GLUCOSE METER 173 mg/dL 70-110 H TEST[facility] AT [facility] 67 [facility] (test code = DAVE [facility] 1538) [id number] POCT-GLUCOSE [id number] 12:08:00 Test Item Value Reference Range Interpretation Comments POC-GLUCOSE METER 194 mg/dL 70-110 H TESTED AT [place] [address] (BEAKER) (test code = DAVE Borja [facility] 1538) [address] POCT-GLUCOSE [id number] 07:15:00 Test Item Value Reference Range Interpretation Comments POC-GLUCOSE METER 228 mg/dL 70-110 H TESTED AT [place] [address] (BEAKER) (test code = DAVE Borja [facility] 1538) [address] CBC W/PLT COUNT & AUTO [id number] 06:14:00 Test Item Value Reference Range Interpretation Comments WHITE BLOOD CELL COUNT (BEAKER) 6.6 K/ L 3.5-10.5 (test code = 775) RED BLOOD CELL COUNT (BEAKER) 2.53 M/ L 3.93-5.22 L (test code = 761) HEMOGLOBIN (BEAKER) (test code = 9.9 GM/DL 11.2-15.7 L 410) HEMATOCRIT (BEAKER) (test code = 29.3 % 34.1-44.9 L 411) MEAN CORPUSCULAR VOLUME (BEAKER) 115.8 fL 79.4-94.8 H (test code = 753) MEAN CORPUSCULAR HEMOGLOBIN 39.1 pg 25.6-32.2 H (BEAKER) (test code = 751) MEAN CORPUSCULAR HEMOGLOBIN CONC 33.8 GM/DL 32.2-35.5 (BEAKER) (test code = 752) RED CELL DISTRIBUTION WIDTH 13.5 % 11.7-14.4 (BEAKER) (test code = 412) PLATELET COUNT (BEAKER) (test 260 K/CU MM 150-450 code = 756) MEAN PLATELET VOLUME (BEAKER) 10.9 fL 9.4-12.3 (test code = 754) NUCLEATED RED BLOOD CELLS 0 /100 WBC 0-0 (BEAKER) (test code = 413) NEUTROPHILS RELATIVE PERCENT 57 % (BEAKER) (test code = 429) LYMPHOCYTES RELATIVE PERCENT 26 % (BEAKER) (test code = 430) MONOCYTES RELATIVE PERCENT 16 % (BEAKER) (test code = 431) EOSINOPHILS RELATIVE PERCENT 1 % (BEAKER) (test code = 432) BASOPHILS RELATIVE PERCENT 0 % (BEAKER) (test code = 437) NEUTROPHILS ABSOLUTE COUNT 3.73 K/ L 1.56-6.13 (BEAKER) (test code = 670) LYMPHOCYTES ABSOLUTE COUNT 1.73 K/ L 1.18-3.74 (BEAKER) (test code = 414) MONOCYTES ABSOLUTE COUNT (BEAKER) 1.03 K/ L 0.24-0.36 H (test code = 415) EOSINOPHILS ABSOLUTE COUNT 0.06 K/ L 0.04-0.36 (BEAKER) (test code = 416) BASOPHILS ABSOLUTE COUNT (BEAKER) 0.01 K/ L 0.01-0.08 (test code = 417) IMMATURE GRANULOCYTES-RELATIVE 0 % 0-1 PERCENT (BEAKER) (test code = 2801) CALCIUM, [id number] 05:52:00 Test Item Value Reference Range Interpretation Comments CALCIUM IONIZED (BEAKER) (test 1.24 mmol/L 1.12-1.27 code = 698) PH, BLOOD (BEAKER) (test code = 7.40 1810) POCT-GLUCOSE [id number] 22:03:00 Test Item Value Reference Range Interpretation Comments POC-GLUCOSE METER 217 mg/dL 70-110 H TESTED AT [facility] 6720 [facility] (test code = [facility] 1538) [address] POCT-GLUCOSE [id number] 17:53:00 Test Item Value Reference Range Interpretation Comments POC-GLUCOSE METER 252 mg/dL 70-110 H TESTED AT [place] [id number] [facility] (test code = [facility] 1538) [address] RAD, ABDOMEN/KUB, 1 VIEW [id number] 15:31:00Reason for exam:->nauseaFINAL REPORT EXAM: Frontal chest [...] MDReport Verified Date/Time: 07/30/2018 15:31:29 Reading Location: [facility] Women Electronically signed by: GURMEET VELAZCO on 03:31 PMPOCT-GLUCOSE [id number] 12:34:00 Test Item Value Reference Range Interpretation Comments POC-GLUCOSE METER 244 mg/dL 70-110 H TESTED AT [facility] 6720 (BEAKER) (test code = [facility] 1538) [address] POCT-GLUCOSE [id number] 09:16:00 Test Item Value Reference Range Interpretation Comments POC-GLUCOSE METER 237 mg/dL 70-110 H TESTED AT [facility] 67 (BEAKER) (test code = [facility] 1538) [address] CALCIUM, [id number] 06:24:00 Test Item Value Reference Range Interpretation Comments CALCIUM IONIZED (BEAKER) (test 1.22 mmol/L 1.12-1.27 code = 698) PH, BLOOD (BEAKER) (test code = 7.39 1810) [id number] 05:34:00 Test Item Value Reference Range Interpretation Comments PHOSPHORUS (BEAKER) (test code = 2.4 mg/dL 2.3-4.7 604) [id number] 05:34:00 Test Item Value Reference Range Interpretation Comments MAGNESIUM (BEAKER) (test code = 1.5 mg/dL 1.6-2.6 L 627) BASIC METABOLIC [id number] 05:34:00 Test Item Value Reference Range Interpretation Comments SODIUM (BEAKER) 134 meq/L 136-145 L (test code = 381) POTASSIUM (BEAKER) 4.2 meq/L 3.5-5.1 (test code = 379) CHLORIDE (BEAKER) 103 meq/L 98-107 (test code = 382) CO2 (BEAKER) (test 25 meq/L 22-29 code = 355) BLOOD UREA NITROGEN 22 mg/dL 7-21 H (BEAKER) (test code = 354) CREATININE (BEAKER) 0.82 mg/dL 0.57-1.25 (test code = 358) GLUCOSE RANDOM 210 mg/dL 70-105 H (BEAKER) (test code = 652) CALCIUM (BEAKER) 9.4 mg/dL 8.4-10.2 (test code = 697) EGFR (BEAKER) (test 68 mL/min/1.73 ESTIMA JONATHAN GFR IS code = 1092) sq m NOT ACCURATE CREATININE CLEARANCE IN PREDICTING GLOMERULAR FILTRATION RATE . ESTIMATED GFR I S NOT APPLICABLE FOR DIALYSIS PATIEN TS. CBC W/PLT COUNT & AUTO [id number] 05:27:00 Test Item Value Reference Range Interpretation Comments WHITE BLOOD CELL COUNT (BEAKER) 8.6 K/ L 3.5-10.5 (test code = 775) RED BLOOD CELL COUNT (BEAKER) 2.67 M/ L 3.93-5.22 L (test code = 761) HEMOGLOBIN (BEAKER) (test code = 10.4 GM/DL 11.2-15.7 L 410) HEMATOCRIT (BEAKER) (test code = 31.1 % 34.1-44.9 L 411) MEAN CORPUSCULAR VOLUME (BEAKER) 116.5 fL 79.4-94.8 H (test code = 753) MEAN CORPUSCULAR HEMOGLOBIN 39.0 pg 25.6-32.2 H (BEAKER) (test code = 751) MEAN CORPUSCULAR HEMOGLOBIN CONC 33.4 GM/DL 32.2-35.5 (BEAKER) (test code = 752) RED CELL DISTRIBUTION WIDTH 14.1 % 11.7-14.4 (BEAKER) (test code = 412) PLATELET COUNT (BEAKER) (test 269 K/CU MM 150-450 code = 756) MEAN PLATELET VOLUME (BEAKER) 10.6 fL 9.4-12.3 (test code = 754) NUCLEATED RED BLOOD CELLS 0 /100 WBC 0-0 (BEAKER) (test code = 413) NEUTROPHILS RELATIVE PERCENT 62 % (BEAKER) (test code = 429) LYMPHOCYTES RELATIVE PERCENT 23 % (BEAKER) (test code = 430) MONOCYTES RELATIVE PERCENT 14 % (BEAKER) (test code = 431) EOSINOPHILS RELATIVE PERCENT 1 % (BEAKER) (test code = 432) BASOPHILS RELATIVE PERCENT 1 % (BEAKER) (test code = 437) NEUTROPHILS ABSOLUTE COUNT 5.34 K/ L 1.56-6.13 (BEAKER) (test code = 670) LYMPHOCYTES ABSOLUTE COUNT 1.95 K/ L 1.18-3.74 (AKER) (test code = 414) MONOCYTES ABSOLUTE COUNT (BEAKER) 1.18 K/ L 0.24-0.36 H (test code = 415) EOSINOPHILS ABSOLUTE COUNT 0.05 K/ L 0.04-0.36 (AKER) (test code = 416) BASOPHILS ABSOLUTE COUNT (AKER) 0.04 K/ L 0.01-0.08 (test code = 417) IMMATURE GRANULOCYTES-RELATIVE 1 % 0-1 PERCENT ([facility]) (test code = 2801) POCT-GLUCOSE [id number] 21:42:00 Test Item Value Reference Range Interpretation Comments POC-GLUCOSE METER 186 mg/dL 70-110 H TESTED AT [place] [address] ([facility]) (test code = [facility] [employer] [facility] 1538) [address] POCT-GLUCOSE [id number] 18:04:00 Test Item Value Reference Range Interpretation Comments POC-GLUCOSE METER 162 mg/dL 70-110 H TESTED AT [place] [address] ([facility]) (test code = [facility] 1538) [address] POCT-GLUCOSE [id number] 13:39:00 Test Item Value Reference Range Interpretation Comments POC-GLUCOSE METER 109 mg/dL 70-110 TESTED AT [place] [address] ([facility]) (test code = [facility] 1538) [address] POCT-GLUCOSE [id number] 13:39:00 Test Item Value Reference Range Interpretation Comments POC-GLUCOSE METER 169 mg/dL 70-110 H TESTED AT [place] [address] ([facility]) (test code = [facility] 1538) [address] POCT-GLUCOSE [id number] 13:39:00 Test Item Value Reference Range Interpretation Comments POC-GLUCOSE METER 202 mg/dL 70-110 H TESTED AT [place] [address] ([facility]) (test code = [facility] 1538) [address] POCT-GLUCOSE [id number] 12:28:00 Test Item Value Reference Range Interpretation Comments POC-GLUCOSE METER 175 mg/dL 70-110 H TESTED AT [place] [address] ([facility]) (test code = [facility] [employer] [facility] 1538) [address] POCT-GLUCOSE [id number] 10:45:00 Test Item Value Reference Range Interpretation Comments POC-GLUCOSE METER 181 mg/dL 70-110 H TESTED AT [facility] 6720 (BEAKER) (test code = DAVE Borja [facility] 1538) [address] POCT-GLUCOSE [id number] 09:08:00 Test Item Value Reference Range Interpretation Comments POC-GLUCOSE METER 90 mg/dL 70-110 TESTED AT [facility] 67[facility] (test code = DAVE Borja [facility] [address] 1538) POCT-GLUCOSE [id number] 09:08:00 Test Item Value Reference Range Interpretation Comments POC-GLUCOSE METER 78 mg/dL 70-110 TESTED AT [facility] 6720 ([facility]) (test code = DAVE Borja [facility] [address] 1538) RAD, CHEST, 1 VIEW, NON [id number] 07:37:00Reason for exam:->POST OPShould this be performed at the bedside?->YesFINAL REPORT CLINICAL HISTORY: POST OP TECHNIQUE: 1 view of the chest. COMPARISON: 07/28/2018 IMPRESSION: There are increased bilateral airspace opacities with suspected trace bilateral pleural effusions. The cardiomediastinal silhouette is magnified by technique. Signed: Annamaria Vargas Verified Date/Time: 07/29/2018 07:37:56 Reading Location: [facility] Radiology Reading Room PHOSPHORUS 2018-07-29 07:21:00 Test Item Value Reference Range Interpretation Comments PHOSPHORUS (BEAKER) (test code = 2.9 mg/dL 2.3-4.7 604) [id number] 07:21:00 Test Item Value Reference Range Interpretation Comments MAGNESIUM (BEAKER) (test code = 2.0 mg/dL 1.6-2.6 627) BASIC METABOLIC [id number] 07:21:00 Test Item Value Reference Range Interpretation Comments SODIUM (BEAKER) 135 meq/L 136-145 L (test code = 381) POTASSIUM (BEAKER) 4.4 meq/L 3.5-5.1 (test code = 379) CHLORIDE (BEAKER) 107 meq/L 98-107 (test code = 382) CO2 (BEAKER) (test 21 meq/L 22-29 L code = 355) BLOOD UREA NITROGEN 32 mg/dL 7-21 H (BEAKER) (test code = 354) CREATININE (BEAKER) 0.80 mg/dL 0.57-1.25 (test code = 358) GLUCOSE RANDOM 92 mg/dL 70-105 (BEAKER) (test code = 652) CALCIUM (BEAKER) 9.2 mg/dL 8.4-10.2 (test code = 697) EGFR (BEAKER) (test 70 mL/min/1.73 ESTIMA JONATHAN GFR IS code = 1092) sq m NOT ACCURATE CREATININE CLEARANCE IN PREDICTING GLOMERULAR FILTRATION RATE . ESTIMATED GFR I S NOT APPLICABLE FOR DIALYSIS PATIEN TS. BLOOD GAS, [id number] 06:00:00 Test Item Value Reference Range Interpretation Comments PH ARTERIAL (BEAKER) (test code = 7.42 7.35-7.45 383) PCO2 ARTERIAL (BEAKER) (test code 34 mmHg 35-45 L = 384) PO2 ARTERIAL (BEAKER) (test code 130 mmHg 80-90 H = 385) O2 SATURATION ARTERIAL (BEAKER) 98.7 % 96.0-97.0 H (test code = 386) HCO3 ARTERIAL (BEAKER) (test code 22 mmol/L 21-29 = 388) BASE EXCESS ARTERIAL (BEAKER) -2.1 mmol/L -2.0-3.0 L (test code = 387) PATIENT TEMPERATURE (BEAKER) 36.5 C (test code = 1818) FIO2 (BEAKER) (test code = 1819) 44.0 % CBC W/PLT COUNT & AUTO [id number] 04:44:00 Test Item Value Reference Range Interpretation Comments WHITE BLOOD CELL COUNT (BEAKER) 9.2 K/ L 3.5-10.5 (test code = 775) RED BLOOD CELL COUNT (BEAKER) 2.79 M/ L 3.93-5.22 L (test code = 761) HEMOGLOBIN (BEAKER) (test code = 10.9 GM/DL 11.2-15.7 L 410) HEMATOCRIT (BEAKER) (test code = 32.0 % 34.1-44.9 L 411) MEAN CORPUSCULAR VOLUME (BEAKER) 114.7 fL 79.4-94.8 H (test code = 753) MEAN CORPUSCULAR HEMOGLOBIN 39.1 pg 25.6-32.2 H (BEAKER) (test code = 751) MEAN CORPUSCULAR HEMOGLOBIN CONC 34.1 GM/DL 32.2-35.5 (BEAKER) (test code = 752) RED CELL DISTRIBUTION WIDTH 13.8 % 11.7-14.4 (BEAKER) (test code = 412) PLATELET COUNT (BEAKER) (test 292 K/CU MM 150-450 code = 756) MEAN PLATELET VOLUME (BEAKER) 10.4 fL 9.4-12.3 (test code = 754) NUCLEATED RED BLOOD CELLS 0 /100 WBC 0-0 (BEAKER) (test code = 413) NEUTROPHILS RELATIVE PERCENT 77 % (BEAKER) (test code = 429) LYMPHOCYTES RELATIVE PERCENT 11 % (BEAKER) (test code = 430) MONOCYTES RELATIVE PERCENT 12 % (BEAKER) (test code = 431) EOSINOPHILS RELATIVE PERCENT 0 % (BEAKER) (test code = 432) BASOPHILS RELATIVE PERCENT 0 % (BEAKER) (test code = 437) NEUTROPHILS ABSOLUTE COUNT 7.06 K/ L 1.56-6.13 H (BEAKER) (test code = 670) LYMPHOCYTES ABSOLUTE COUNT 1.03 K/ L 1.18-3.74 L (BEAKER) (test code = 414) MONOCYTES ABSOLUTE COUNT (BEAKER) 1.06 K/ L 0.24-0.36 H (test code = 415) EOSINOPHILS ABSOLUTE COUNT 0.01 K/ L 0.04-0.36 L (BEAKER) (test code = 416) BASOPHILS ABSOLUTE COUNT (BEAKER) 0.02 K/ L 0.01-0.08 (test code = 417) IMMATURE GRANULOCYTES-RELATIVE 0 % 0-1 PERCENT (BEAKER) (test code = 2801) BLOOD GAS, [id number] 04:28:00 Test Item Value Reference Range Interpretation Comments PH ARTERIAL (BEAKER) (test code = 7.42 7.35-7.45 383) PCO2 ARTERIAL (BEAKER) (test code 37 mmHg 35-45 = 384) PO2 ARTERIAL (BEAKER) (test code 62 mmHg 80-90 L = 385) O2 SATURATION ARTERIAL (BEAKER) 92.8 % 96.0-97.0 L (test code = 386) HCO3 ARTERIAL (BEAKER) (test code 23 mmol/L 21-29 = 388) BASE EXCESS ARTERIAL (BEAKER) -1.0 mmol/L -2.0-3.0 (test code = 387) PATIENT TEMPERATURE (BEAKER) 36.5 C (test code = 1818) FIO2 (BEAKER) (test code = 1819) 36.0 % CALCIUM, [id number] 04:27:00 Test Item Value Reference Range Interpretation Comments CALCIUM IONIZED (BEAKER) (test 1.22 mmol/L 1.12-1.27 code = 698) PH, BLOOD (BEAKER) (test code = 7.41 1810) POCT-GLUCOSE [id number] 01:35:00 Test Item Value Reference Range Interpretation Comments POC-GLUCOSE METER 220 mg/dL 70-110 H TESTED AT [place] [address] ([facility]) (test code = DAVE Borja [facility] 1538) [address] POCT-GLUCOSE [id number] 01:35:00 Test Item Value Reference Range Interpretation Comments POC-GLUCOSE METER 258 mg/dL 70-110 H TESTED AT [place] [address] ([facility]) (test code = DAVE Borja [place] 1538) [address] POCT-GLUCOSE [id number] 01:35:00 Test Item Value Reference Range Interpretation Comments POC-GLUCOSE METER 263 mg/dL 70-110 H TESTED AT [place] [address] ([facility]) (test code = DAVE Borja [facility] 1538) [address] HGB/HCT (H&H) - STAT [id number] 01:24:00 Test Item Value Reference Range Interpretation Comments HEMOGLOBIN (BEAKER) (test code = 11.8 g/dL 12.0-15.0 L 410) HEMATOCRIT (BEAKER) (test code = 35.0 % 36.0-45.0 L 411) BLOOD GAS, [id number] 01:24:00 Test Item Value Reference Range Interpretation Comments PH ARTERIAL (BEAKER) (test code = 7.44 7.35-7.45 383) PCO2 ARTERIAL (BEAKER) (test code 31 mmHg 35-45 L = 384) PO2 ARTERIAL (BEAKER) (test code 97 mmHg 80-90 H = 385) O2 SATURATION ARTERIAL (BEAKER) 97.8 % 96.0-97.0 H (test code = 386) HCO3 ARTERIAL (BEAKER) (test code 21 mmol/L 21-29 = 388) BASE EXCESS ARTERIAL (BEAKER) -2.8 mmol/L -2.0-3.0 L (test code = 387) PATIENT TEMPERATURE (BEAKER) 36.4 C (test code = 1818) FIO2 (BEAKER) (test code = 1819) 36.0 % SODIUM NA-STAT [id number] 01:24:00 Test Item Value Reference Range Interpretation Comments SODIUM (BEAKER) (test code = 381) 134 meq/L 135-148 L GLUCOSE-STAT [id number] 01:24:00 Test Item Value Reference Range Interpretation Comments GLUCOSE RANDOM (BEAKER) (test code 195 mg/dL 70-110 H = 652) POTASSIUM-STAT [id number] 01:22:00 Test Item Value Reference Range Interpretation Comments POTASSIUM (BEAKER) (test code = 4.9 meq/L 3.6-5.5 379) POCT-GLUCOSE [id number] 22:27:00 Test Item Value Reference Range Interpretation Comments POC-GLUCOSE METER 235 mg/dL 70-110 H TESTED AT [facility] 6720 (BEAKER) (test code = DAVE Borja [place] 1538) [address] LACTIC ACID, [id number] 21:01:00 Test Item Value Reference Range Interpretation Comments LACTATE BLOOD 0.9 mmol/L 0.5-2.2 Specimen sligh tly ARTERIAL (2) (BEAKER) hemoly zed (test code = 2874) [id number] 20:58:00 Test Item Value Reference Range Interpretation Comments MAGNESIUM (BEAKER) 2.4 mg/dL 1.6-2.6 Specimen slightly (test code = 627) hemolyzed BLOOD GAS, [id number] 20:23:00 Test Item Value Reference Range Interpretation Comments PH ARTERIAL (BEAKER) (test code = 7.35 7.35-7.45 383) PCO2 ARTERIAL (BEAKER) (test code 42 mmHg 35-45 = 384) PO2 ARTERIAL (BEAKER) (test code 89 mmHg 80-90 = 385) O2 SATURATION ARTERIAL (BEAKER) 96.7 % 96.0-97.0 (test code = 386) HCO3 ARTERIAL (BEAKER) (test code 23 mmol/L -29 = 388) BASE EXCESS ARTERIAL (BEAKER) -2.9 mmol/L -2.0-3.0 L (test code = 387) PATIENT TEMPERATURE (BEAKER) 36.4 C (test code = 1818) FIO2 (BEAKER) (test code = 1819) 26.0 % GLUCOSE-STAT [id number] 20:23:00 Test Item Value Reference Range Interpretation Comments GLUCOSE RANDOM (BEAKER) (test code 223 mg/dL 70-110 H = 652) SODIUM NA-STAT [id number] 20:21:00 Test Item Value Reference Range Interpretation Comments SODIUM (BEAKER) (test code = 381) 136 meq/L 135-148 POTASSIUM-STAT [id number] 20:21:00 Test Item Value Reference Range Interpretation Comments POTASSIUM (BEAKER) (test code = 4.1 meq/L 3.6-5.5 379) HGB/HCT (H&H) - STAT [id number] 20:21:00 Test Item Value Reference Range Interpretation Comments HEMOGLOBIN (BEAKER) (test code = 12.2 g/dL 12.0-15.0 410) HEMATOCRIT (BEAKER) (test code = 36.0 % 36.0-45.0 411) CALCIUM, [id number] 20:21:00 Test Item Value Reference Range Interpretation Comments CALCIUM IONIZED (BEAKER) (test 1.25 mmol/L 1.12-1.27 code = 698) PH, BLOOD (BEAKER) (test code = 7.34 1810) RAD, CHEST, 1 VIEW, NON [id number] 18:36:00Reason for exam:->POST OPShould this be performed at the bedside?->YesFINAL REPORT Portable chest. HISTORY: Postoperative. Comparison study: None av ailable. FINDINGS: The cardiac size is enlarged. There [...] MDReport Verified Date/Time: 07/28/2018 18:36:16 Reading Location: [facility] [id number] Consult Reading Room POCT-GLUCOSE [id number] 16:38:00 Test Item Value Reference Range Interpretation Comments POC-GLUCOSE METER 215 mg/dL 70-110 H TESTED AT [facility] 6720 (BEAKER) (test code = DAVE [place] 1538) [address] [id number] 15:42:00 Test Item Value Reference Range Interpretation Comments PHOSPHORUS (BEAKER) (test code = 3.5 mg/dL 2.3-4.7 604) [id number] 15:42:00 Test Item Value Reference Range Interpretation Comments MAGNESIUM (BEAKER) (test code = 1.3 mg/dL 1.6-2.6 L 627) BASIC METABOLIC [id number] 15:42:00 Test Item Value Reference Range Interpretation Comments SODIUM (BEAKER) 135 meq/L 136-145 L (test code = 381) POTASSIUM (BEAKER) 4.3 meq/L 3.5-5.1 (test code = 379) CHLORIDE (BEAKER) 107 meq/L 98-107 (test code = 382) CO2 (BEAKER) (test 16 meq/L 22-29 L code = 355) BLOOD UREA NITROGEN 28 mg/dL 7-21 H (BEAKER) (test code = 354) CREATININE (BEAKER) 0.99 mg/dL 0.57-1.25 (test code = 358) GLUCOSE RANDOM 250 mg/dL 70-105 H (BEAKER) (test code = 652) CALCIUM (BEAKER) 9.2 mg/dL 8.4-10.2 (test code = 697) EGFR (BEAKER) (test 55 mL/min/1.73 ESTIMA JONATHAN GFR IS code = 1092) sq m NOT ACCURATE CREATININE CLEARANCE IN PREDICTING GLOMERULAR FILTRATION RATE . ESTIMATED GFR I S NOT APPLICABLE FOR DIALYSIS PATIEN TS. LACTIC ACID, [id number] 15:38:00 Test Item Value Reference Range Interpretation Comments LACTATE BLOOD 1.3 mmol/L 0.5-2.2 Specimen sligh tly ARTERIAL (2) (BEAKER) hemoly zed (test code = 2874) [id number] 15:36:00 Test Item Value Reference Range Interpretation Comments PROTIME (BEAKER) (test code = 15.5 seconds 11.7-14.7 H 759) INR (BEAKER) (test code = 370) 1.3 <=5.9 PARTIAL THROMBOPLASTIN TIME 24.3 seconds 22.5-36.0 (BEAKER) (test code = 760) RECOMMENDED COUMADIN/WARFARIN INR THERAPY RANGESSTANDARD DOSE: 2.0 - 3.0 Includes: PROPHYLAXIS forvenous thrombosis, systemic embolization; TREATMENT for venous thrombosis and/or pulmonary embolus.HIGH RISK: Target INR is 2.5-3.5 for patients with mechanical heart valves.CBC W/PLT COUNT & AUTO DIFFERENTIAL 2018-07-28 15:34:00 Test Item Value Reference Range Interpretation Comments WHITE BLOOD CELL COUNT (BEAKER) 10.1 K/ L 3.5-10.5 (test code = 775) RED BLOOD CELL COUNT (BEAKER) 3.02 M/ L 3.93-5.22 L (test code = 761) HEMOGLOBIN (BEAKER) (test code = 11.8 GM/DL 11.2-15.7 410) HEMATOCRIT (BEAKER) (test code = 34.7 % 34.1-44.9 411) MEAN CORPUSCULAR VOLUME (BEAKER) 114.9 fL 79.4-94.8 H (test code = 753) MEAN CORPUSCULAR HEMOGLOBIN 39.1 pg 25.6-32.2 H (BEAKER) (test code = 751) MEAN CORPUSCULAR HEMOGLOBIN CONC 34.0 GM/DL 32.2-35.5 (BEAKER) (test code = 752) RED CELL DISTRIBUTION WIDTH 14.2 % 11.7-14.4 (BEAKER) (test code = 412) PLATELET COUNT (BEAKER) (test 302 K/CU MM 150-450 code = 756) MEAN PLATELET VOLUME (BEAKER) 10.3 fL 9.4-12.3 (test code = 754) NUCLEATED RED BLOOD CELLS 0 /100 WBC 0-0 (BEAKER) (test code = 413) NEUTROPHILS RELATIVE PERCENT 63 % (BEAKER) (test code = 429) LYMPHOCYTES RELATIVE PERCENT 25 % (BEAKER) (test code = 430) MONOCYTES RELATIVE PERCENT 9 % (BEAKER) (test code = 431) EOSINOPHILS RELATIVE PERCENT 1 % (BEAKER) (test code = 432) BASOPHILS RELATIVE PERCENT 0 % (BEAKER) (test code = 437) NEUTROPHILS ABSOLUTE COUNT 6.35 K/ L 1.56-6.13 H (BEAKER) (test code = 670) LYMPHOCYTES ABSOLUTE COUNT 2.54 K/ L 1.18-3.74 (BEAKER) (test code = 414) MONOCYTES ABSOLUTE COUNT (BEAKER) 0.91 K/ L 0.24-0.36 H (test code = 415) EOSINOPHILS ABSOLUTE COUNT 0.10 K/ L 0.04-0.36 (BEAKER) (test code = 416) BASOPHILS ABSOLUTE COUNT (BEAKER) 0.03 K/ L 0.01-0.08 (test code = 417) IMMATURE GRANULOCYTES-RELATIVE 2 % 0-1 H PERCENT (BEAKER) (test code = 2801) GLUCOSE-STAT [id number] 15:33:00 Test Item Value Reference Range Interpretation Comments GLUCOSE RANDOM (BEAKER) (test code 231 mg/dL 70-110 H = 652) BLOOD GAS, [id number] 15:31:00 Test Item Value Reference Range Interpretation Comments PH ARTERIAL (BEAKER) (test code = 7.48 7.35-7.45 H 383) PCO2 ARTERIAL (BEAKER) (test code 25 mmHg 35-45 L = 384) PO2 ARTERIAL (BEAKER) (test code 126 mmHg 80-90 H = 385) O2 SATURATION ARTERIAL (BEAKER) 98.8 % 96.0-97.0 H (test code = 386) HCO3 ARTERIAL (BEAKER) (test code 18 mmol/L 21-29 L = 388) BASE EXCESS ARTERIAL (BEAKER) -3.9 mmol/L -2.0-3.0 L (test code = 387) PATIENT TEMPERATURE (BEAKER) 36.2 C (test code = 1818) FIO2 (BEAKER) (test code = 1819) 44.0 % SODIUM NA-STAT [id number] 15:31:00 Test Item Value Reference Range Interpretation Comments SODIUM (BEAKER) (test code = 381) 135 meq/L 135-148 POTASSIUM-STAT [id number] 15:31:00 Test Item Value Reference Range Interpretation Comments POTASSIUM (BEAKER) (test code = 4.0 meq/L 3.6-5.5 379) HGB/HCT (H&H) - STAT [id number] 15:31:00 Test Item Value Reference Range Interpretation Comments HEMOGLOBIN (BEAKER) (test code = 12.2 g/dL 12.0-15.0 410) HEMATOCRIT (BEAKER) (test code = 36.0 % 36.0-45.0 411) [id number] 08:00:00 Test Item Value Reference Range Interpretation Comments MAGNESIUM (BEAKER) (test code = 1.9 mg/dL 1.6-2.6 627) BASIC METABOLIC [id number] 08:00:00 Test Item Value Reference Range Interpretation Comments SODIUM (BEAKER) 136 meq/L 136-145 (test code = 381) POTASSIUM (BEAKER) 4.5 meq/L 3.5-5.1 (test code = 379) CHLORIDE (BEAKER) 106 meq/L 98-107 (test code = 382) CO2 (BEAKER) (test 22 meq/L 22-29 code = 355) BLOOD UREA NITROGEN 29 mg/dL 7-21 H (BEAKER) (test code = 354) CREATININE (BEAKER) 0.85 mg/dL 0.57-1.25 (test code = 358) GLUCOSE RANDOM 204 mg/dL 70-105 H (BEAKER) (test code = 652) CALCIUM (BEAKER) 10.0 mg/dL 8.4-10.2 (test code = 697) EGFR (BEAKER) (test 65 mL/min/1.73 ESTIMA JONATHAN GFR IS code = 1092) sq m NOT ACCURATE CREATININE CLEARANCE IN PREDICTING GLOMERULAR FILTRATION RATE . ESTIMATED GFR I S NOT APPLICABLE FOR DIALYSIS PATIEN TS. CBC W/PLT COUNT & AUTO [id number] 07:23:00 Test Item Value Reference Range Interpretation Comments WHITE BLOOD CELL COUNT (BEAKER) 5.3 K/ L 3.5-10.5 (test code = 775) RED BLOOD CELL COUNT (BEAKER) 3.33 M/ L 3.93-5.22 L (test code = 761) HEMOGLOBIN (BEAKER) (test code = 12.9 GM/DL 11.2-15.7 410) HEMATOCRIT (BEAKER) (test code = 38.6 % 34.1-44.9 411) MEAN CORPUSCULAR VOLUME (BEAKER) 115.9 fL 79.4-94.8 H (test code = 753) MEAN CORPUSCULAR HEMOGLOBIN 38.7 pg 25.6-32.2 H (BEAKER) (test code = 751) MEAN CORPUSCULAR HEMOGLOBIN CONC 33.4 GM/DL 32.2-35.5 (BEAKER) (test code = 752) RED CELL DISTRIBUTION WIDTH 14.6 % 11.7-14.4 H (BEAKER) (test code = 412) PLATELET COUNT (BEAKER) (test 335 K/CU MM 150-450 code = 756) MEAN PLATELET VOLUME (BEAKER) 10.2 fL 9.4-12.3 (test code = 754) NUCLEATED RED BLOOD CELLS 0 /100 WBC 0-0 (BEAKER) (test code = 413) NEUTROPHILS RELATIVE PERCENT 43 % (BEAKER) (test code = 429) LYMPHOCYTES RELATIVE PERCENT 40 % (BEAKER) (test code = 430) MONOCYTES RELATIVE PERCENT 14 % (BEAKER) (test code = 431) EOSINOPHILS RELATIVE PERCENT 2 % (BEAKER) (test code = 432) BASOPHILS RELATIVE PERCENT 1 % (BEAKER) (test code = 437) NEUTROPHILS ABSOLUTE COUNT 2.28 K/ L 1.56-6.13 (BEAKER) (test code = 670) LYMPHOCYTES ABSOLUTE COUNT 2.10 K/ L 1.18-3.74 (BEAKER) (test code = 414) MONOCYTES ABSOLUTE COUNT (BEAKER) 0.71 K/ L 0.24-0.36 H (test code = 415) EOSINOPHILS ABSOLUTE COUNT 0.11 K/ L 0.04-0.36 (BEAKER) (test code = 416) BASOPHILS ABSOLUTE COUNT (BEAKER) 0.04 K/ L 0.01-0.08 (test code = 417) IMMATURE GRANULOCYTES-RELATIVE 0 % 0-1 PERCENT (BEAKER) (test code = 2801) HEMOGLOBIN [id number] 23:04:00 Test Item Value Reference Range Interpretation Comments HEMOGLOBIN A1C (BEAKER) (test code = 7.7 % 4.3-6.1 H 368) POCT-GLUCOSE [id number] 23:03:00 Test Item Value Reference Range Interpretation Comments POC-GLUCOSE METER 261 mg/dL 70-110 H TESTED AT [facility] 6720 (BEAKER) (test code = [place] 1538) [address] COMPREHENSIVE METABOLIC [id number] 21:58:00 Test Item Value Reference Range Interpretation Comments TOTAL PROTEIN 7.2 gm/dL 6.0-8.3 Specimen sligh tly (BEAKER) (test code = hemoly zed 770) ALBUMIN (BEAKER) 3.4 g/dL 3.5-5.0 L Specimen sl ightly (test code = 1145) hemolyzed ALKALINE PHOSPHATASE 74 U/L 40-150 (BEAKER) (test code = 346) BILIRUBIN TOTAL 0.6 mg/dL 0.2-1.2 Specimen sli ghtly (BEAKER) (test code = hemoly zed 377) SODIUM (BEAKER) (test 136 meq/L 136-145 code = 381) POTASSIUM (BEAKER) 4.6 meq/L 3.5-5.1 Specimen slightly (test code = 379) hemolyzed CHLORIDE (BEAKER) 104 meq/L 98-107 (test code = 382) CO2 (BEAKER) (test 23 meq/L 22-29 code = 355) BLOOD UREA NITROGEN 33 mg/dL 7-21 H (BEAKER) (test code = 354) CREATININE (BEAKER) 0.90 mg/dL 0.57-1.25 Specimen slightly (test code = 358) hemolyzed GLUCOSE RANDOM 219 mg/dL 70-105 H (BEAKER) (test code = 652) CALCIUM (BEAKER) 9.5 mg/dL 8.4-10.2 (test code = 697) AST (SGOT) (BEAKER) 29 U/L 5-34 Specimen slightly (test code = 353) hemolyzed ALT (SGPT) (BEAKER) 20 U/L 6-55 Specimen slightly (test code = 347) hemolyzed EGFR (BEAKER) (test 61 mL/min/1.73 ESTIMA JONATHAN GFR IS code = 1092) sq m NOT ACCURATE CREATININE CLEARANCE IN PREDICTING GLOMERULAR FILTRATION RATE . ESTIMATED GFR I S NOT APPLICABLE FOR DIALYSIS PATIEN TS. CBC W/PLT COUNT & AUTO [id number] 21:33:00 Test Item Value Reference Range Interpretation Comments WHITE BLOOD CELL COUNT (BEAKER) 6.1 K/ L 3.5-10.5 (test code = 775) RED BLOOD CELL COUNT (BEAKER) 3.15 M/ L 3.93-5.22 L (test code = 761) HEMOGLOBIN (BEAKER) (test code = 12.4 GM/DL 11.2-15.7 410) HEMATOCRIT (BEAKER) (test code = 36.5 % 34.1-44.9 411) MEAN CORPUSCULAR VOLUME (BEAKER) 115.9 fL 79.4-94.8 H (test code = 753) MEAN CORPUSCULAR HEMOGLOBIN 39.4 pg 25.6-32.2 H (BEAKER) (test code = 751) MEAN CORPUSCULAR HEMOGLOBIN CONC 34.0 GM/DL 32.2-35.5 (BEAKER) (test code = 752) RED CELL DISTRIBUTION WIDTH 14.7 % 11.7-14.4 H (BEAKER) (test code = 412) PLATELET COUNT (BEAKER) (test 381 K/CU MM 150-450 code = 756) MEAN PLATELET VOLUME (BEAKER) 10.5 fL 9.4-12.3 (test code = 754) NUCLEATED RED BLOOD CELLS 0 /100 WBC 0-0 (BEAKER) (test code = 413) NEUTROPHILS RELATIVE PERCENT 54 % (BEAKER) (test code = 429) LYMPHOCYTES RELATIVE PERCENT 32 % (BEAKER) (test code = 430) MONOCYTES RELATIVE PERCENT 12 % (BEAKER) (test code = 431) EOSINOPHILS RELATIVE PERCENT 1 % (BEAKER) (test code = 432) BASOPHILS RELATIVE PERCENT 1 % (BEAKER) (test code = 437) NEUTROPHILS ABSOLUTE COUNT 3.31 K/ L 1.56-6.13 (BEAKER) (test code = 670) LYMPHOCYTES ABSOLUTE COUNT 1.97 K/ L 1.18-3.74 (BEAKER) (test code = 414) MONOCYTES ABSOLUTE COUNT (BEAKER) 0.72 K/ L 0.24-0.36 H (test code = 415) EOSINOPHILS ABSOLUTE COUNT 0.08 K/ L 0.04-0.36 (BEAKER) (test code = 416) BASOPHILS ABSOLUTE COUNT (BEAKER) 0.03 K/ L 0.01-0.08 (test code = 417) IMMATURE GRANULOCYTES-RELATIVE 0 % 0-1 PERCENT (BEAKER) (test code = 2801) [id number] 06:54:0011.1[facility] QnusuoqSYUXGTCASP8354-94-59 06:54:00 43.8[facility] PgfodncQMUEGKUUAY5570-78-82 06:54:0014.2[facility] HermannHEMATOLOGY 2014-11-09 06:54:004.93[facility] YrziqgcGVZVIJ9235-30-34 06:54:0028[facility] IyawhgcNONICY9597-56-09 06:54:81117Ssrgljqf FdifggmVSNVXE9299-94-72 06:54:0050 [facility] ZdqcbfxICPBGY1991-89-41 06:54:22969Puwtofut NxsjsivWAWOUE4236-90-89 06:54:004.22[facility] ClvadirBULEAP9847-70-31 06:54:50401Zkgnozll HermannSPECIAL VBPCGZYBG3648-72-16 06:54:009.1[facility] HermannTHYROID VRWLD0664-38-93 06:54:00 1.850[facility] HermannCHEM TFGBV4250-82-22 06:54:0056[facility] HermannCHEM PANEL 2014-11-09 06:54:000.3[facility] HermannCHEM RCEUG3338-75-68 06:54:0037[facility] HermannCHEM XLWEE8094-88-54 06:54:0025[facility] HermannCHEM RVSMY8726-17-80 06:54:0071[facility] HermannCHEM JDJYX6313-43-41 06:54:0025[facility] HermannCHEM DSQJC4797-24-42 06:54:008.8[facility] HermannCHEM LNZYA7398-40-86 06:54:006.8 [facility]annCHEM NBPZK1378-81-37 06:54:003.0[facility] HermannCHEM PANEL 2014-11-09 06:54:62674Hsrwmdco HermannCHEM MMXKP3203-02-25 06:54:42878Atdntzaf HermannCHEM BPQQY8903-97-07 06:54:003.6[facility]annCHEM KRNYR9382-32-59 06:54:0025[facility] HermannCHEM KAEFI6973-58-14 06:54:001.0[facility]annCHEM PBNPN2955-81-09 06:54:56664Lvbwreiv HermannCHEM SDYDI3599-16-06 06:54:000.8 [facility]annCHEM VOGLG3624-92-39 06:54:0010.6[facility] HermannCHEM PANEL 2014-11-09 06:54:0025[facility] HermannCHEM DGYHR6657-50-99 06:54:003.8[facility] SgyxmnpQQXZVSGCXI1396-90-01 06:54:003.5[facility] TmxixkzJJPZCZFKGP6748-98-98 06:54:001.5[facility] CxehvzmXXQETPOZOX6116-59-81 06:54:000.2[facility] IUJAVROJCY4314-67-15 06:54:000.1[facility] PoannvlMHDNFUFRWL7701-04-52 06:54:005.9 [facility] NtzacxtZEEGTGPPGD4511-14-44 06:54:0031.4[facility] HermannHEMATOLOGY 2014-11-09 06:54:000.7[facility] ZkldbmiZNHJQUCOKW1280-86-79 06:54:0013.2[facility] ClhkugvFFNDYRXRPV3618-29-51 06:54:0053.0[facility] YvqyvqrSNWVCVQZZX9992-37-80 06:54:001.7[facility] KwttmtcDIUZEYLKQP6454-04-04 06:54:009.5[facility] EUIRMPRLEB5439-92-37 06:54:36448Okointqe XfmvxktYXAVHDQNUN8811-75-39 06:54:00 32.5[facility] XozlsvnVVPQRBVWGY8881-58-38 06:54:0014.9[facility]annHEMATOLOGY 2014-11-09 06:54:0088.9[facility] TtxnmroBQGZQAPPWR9620-86-30 06:54:00 Test Item Value Reference Range Interpretation Comments MCH (test code = MCH) 28.9 pg 27.0-31.0 [facility]annCARDIAC YUKXNRJ6273-74-29 21:20:0075[facility] HermannCARDIAC NXFFGIL0725-18-67 21:20:000.05[facility] HermannCARDIAC ISEIHUX7127-95-92 21:20:00 1.0[facility]annCARDIAC SWDZUYW0302-76-93 21:20:001.3[facility] HermannCHEM DPDXU2863-66-32 21:20:0042[facility] HermannCHEM TRXYG3446-52-73 21:20:001.0 [facility]annCHEM KKOSK7770-68-81 21:20:0030[facility] HermannCHEM PANEL 2014-11-08 21:20:87760Oinigzzh HermannCHEM HNRJP7315-93-71 21:20:0023[facility] HermannCHEM DDVUK8827-10-55 21:20:01518Ulvklqma HermannCHEM SXVPR3998-21-46 21:20:10487Fmyosaeg HermannCHEM TZMJL3353-41-01 21:20:004.6[facility] HermannCHEM AKBXW7128-15-56 21:20:009.6[facility] HermannCHEM MBPTW6734-89-87 21:20:0013.6 [facility] UrkdmqlUPQVAWSOMR4023-26-37 21:20:00 Test Item Value Reference Range Interpretation Comments PTT (test code = PTT) 24.4 s 22.9-35.8 [facility] KeqwtqcZDMXBFRZGA3874-00-93 21:20:000.93[facility] HermannHEMATOLOGY 2014-11-08 21:20:00 Test Item Value Reference Range Interpretation Comments PT (test code = PT) 12.8 s 12.0-14.7 [facility] IgqisieHBMVXLTOCS8322-62-94 21:20:00 Test Item Value Reference Range Interpretation Comments MCH (test code = MCH) 28.9 pg 27.0-31.0 [facility] QkkhejfPHDGAPOPXW0818-53-72 21:20:0088.6[facility] HermannHEMATOLOGY 2014-11-08 21:20:0046.4[facility] RhrpxvwKXHAWOBOZH4822-07-17 21:20:0032.7[facility] BfwdobiQHFPDREARS7181-90-80 21:20:0015.2[facility] LplhmgqGPLWWPJFLA3615-06-47 21:20:24030Pdvwoycd AiufrunSEKHKAECPZ1642-04-97 21:20:0014.7[facility] VCMLELYKAR7107-93-00 21:20:009.2[facility] VhpwvtyYWBABYHOLH8755-36-68 21:20:00 13.3[facility] JvdwaskLLWZZSVJDH1724-38-37 21:20:005.24[facility] HermannHEMATOLOGY 2014-11-08 21:20:001.6[facility] KvfezfoVNKYXPZSSR3974-87-42 21:20:002.1[facility] OapdsifWWBEPHEWLN1756-60-64 21:20:009.4[facility] MihlkbdOZLVWNBAGP1748-61-19 21:20:000.8[facility] XvnlukkHRZJAQHKKJ9082-58-51 21:20:000.8[facility] KHLEPORIDQ1399-36-36 21:20:000.1[facility] DyoviwzZTJKYMAHNC4878-67-35 21:20:000.1 [facility] CbkkqzhIQDBZVTDHW7957-19-32 21:20:0012.0[facility] HermannHEMATOLOGY 2014-11-08 21:20:0015.7[facility] NcmphpvFKBTVKXOYZ4651-64-93 21:20:0070.7[facility]
[2020-05-29 11:58] LABS: Absolute Lymphocytes (CBC) 2.8 K/uL (0.7-4.9); Basophils % 0.8 % (0-1.3); Hematocrit 40.9 % (36.0-45.0); Lymphocytes % 36.4 % (15.3-44.8); MPV 10.6 fL (7.6-11.3); RBC Red Blood Cell Count 3.74 M/uL (3.86-4.86)
[2020-05-29] MEDS ORDERED: D50W 50 ML IV ONE (12:01)
--- NOTE | 2020-05-29 12:43 | RAD REPORT ---
EXAM DESCRIPTION: RAD - Chest Single View - 05/29/2020 12:20 pm CLINICAL HISTORY: DYSPNEA COMPARISON: Portable May 24 TECHNIQUE: AP portable chest image was obtained 05/29/2020 12:20 pm . FINDINGS: Slightly underinflated. Lower left lung field parenchymal opacification has not changed. H eart size is upper normal. Vasculature is mildly prominent. Trachea is in midline. Sternotomy wires a re in place. No measurable pleural effusion and no pneumothorax. No acute bony abnormality seen. No a cute aortic findings suspected. IMPRESSION: Heart, vasculature and lung parenchymal findings favor a mild failure or volume overload similar to May 24 imaging.
[2020-05-29 12:44] LABS: Potassium 3.7 mmol/L (3.5-5.1)
[2020-05-29 13:02] LABS: Blood Morphology Comment NOTED (NOT SEEN); Platelet Estimate ADEQ; White Blood Cell Scan OK (OK)
[2020-05-29 13:03] LABS: Macrocytosis 1+
--- NOTE | 2020-05-29 13:32 | ER ---
Nurse's Notes [facility] Name: Arminda Rodriguez Age: 80 yrs Sex: Female : 1940 Arrival Date: 05/29/2020 Time: 11:37 Bed 23 Private MD: Diagnosis: Near Syncope;Hypoglycemia, unspecified;Pulmonary edema;Dyspnea, unspecified Presentation: 05/29 11:37 Chief complaint: Received as rapid response from inside lab, BGL 30s. Coronavirus hb screen: At this time, the client does not indicate any symptoms associated with coronavirus-19. Ebola Screen: No symptoms or risks identified at this time. Initial Sepsis Screen: Does the patient meet any 2 criteria? No. Patient's initial sepsis screen is negative. Does the patient have a suspected source of infection? No. Patient's initial sepsis screen is negative. Risk Assessment: Do you want to hurt yourself or someone else? Patient reports no desire to harm self or others. Onset of symptoms was May 29, 2020. 11:37 Method Of Arrival: Wheelchair hb 11:37 Acuity: GORDO 2 hb Triage Assessment: 11:38 General: Appears in no apparent distress. Behavior is calm, cooperative. Pain: Denies hb pain. EENT: No signs and/or symptoms were reported regarding the EENT system. Neuro: Level of Consciousness is awake, alert, obeys commands, Oriented to person, place, situation. Cardiovascular: Capillary refill < 3 seconds Patient's skin is warm and dry. Respiratory: Respiratory effort is even, unlabored, Respiratory pattern is regular, symmetrical. GI: No signs and/or symptoms were reported involving the gastrointestinal system. : No signs and/or symptoms were reported regarding the genitourinary system. Derm: Skin is pink, warm \T\ dry. Musculoskeletal: No signs and/or symptoms reported regarding the musculoskeletal system. Historical: - Allergies: 11:41 Amaryl; hb 11:41 Amoxicillin; hb 11:41 ANGIOTENSIN RECEPTOR ANTAGONIST; hb 11:41 Augmentin; hb 11:41 Byetta; hb 11:41 Demerol; hb 11:41 Hydrocodone-Acetaminophen; hb 11:41 Januvia; hb 11:41 Lantus; hb 11:41 metformin; hb 11:41 Niaspan; hb 11:41 QUINOLONES; hb 11:41 Gdcqkuk-Spm-Jxx Reductase Inhibitors; hb 11:41 Tetanus Immune Globulin; hb 11:41 Zetia; hb - PMHx: 11:41 CAD; CVA; Diabetes - NIDDM; Hyperlipidemia; Hypertension; Myocardial infarction; hb VENTRAL HERNIA; - Immunization history:: Adult Immunizations up to date. - Social history:: Smoking status: Patient denies any tobacco usage or history of. - Family history:: not pertinent. - Hospitalizations: : No recent hospitalization is reported. Screenin:39 Abuse screen: Denies threats or abuse. Denies injuries from another. Nutritional hb screening: No deficits noted. Tuberculosis screening: No symptoms or risk factors identified. Fall Risk None identified. Assessment: 11:39 General: see triage assessment. hb 12:45 Reassessment: Patient appears in no apparent distress at this time. Patient and/or hb family updated on plan of care and expected duration. Pain level reassessed. Patient is alert, oriented x 3, equal unlabored respirations, skin warm/dry/pink. 13:30 Reassessment: Patient appears in no apparent distress at this time. Patient and/or hb family updated on plan of care and expected duration. Pain level reassessed. Patient is alert, oriented x 3, equal unlabored respirations, skin warm/dry/pink. 15:30 Reassessment: Patient appears in no apparent distress at this time. Patient and/or hb family updated on plan of care and expected duration. Pain level reassessed. Patient is alert, oriented x 3, equal unlabored respirations, skin warm/dry/pink. Vital Signs: 11:37 BP 158 / 56; Pulse 46; Resp 20; Temp 97.7(TE); Pulse Ox 90% on R/A; Pain 0/10; hb 12:30 BP 148 / 86; Pulse 51; Resp 17; Pulse Ox 96% on 2 lpm NC; hb ED Course: 11:37 Patient arrived in ED. hb 11:39 Patient has correct armband on for positive identification. Bed in low position. Call hb light in reach. 11:40 Triage completed. hb 11:40 Wood Melendez MD is Attending Physician. rn 11:40 Arm band placed on. hb 12:08 Dominique Dumont, RN is Primary Nurse. hb 12:20 XRAY Chest (1 view) In Process Unspecified. EDMS 12:31 manager monitoring on. Pulse ox on. NIBP on. sr5 12:31 Initial lab(s) drawn, by me, sent to lab. EKG done, by ED staff, reviewed by Wood Melendez MD. Inserted saline lock: 20 gauge in left antecubital area, using aseptic technique. Blood collected. Oxygen administration via nasal cannula On room air, pt went to 89% on pulse ox. 13:30 Frederick Gomez MD is Hospitalizing Provider. rn 16:00 No provider procedures requiring assistance completed. Patient admitted, IV remains in hb place. 19:12 Primary Nurse role handed off by Dominique Dumont, RN mw2 Administered Medications: 11:47 Drug: D50W 50 ml Route: IVP; Site: left antecubital; hb 12:30 Follow up: Response: No adverse reaction hb Point of Care Testing: Blood Glucose: 12:54 Blood Glucose: 107 mg/dL; sr5 12:54 notified, meal tray ordered sr5 Ranges: Intake: 11:30 PO: 140ml (Juice); Total: 140ml. sr5 Outcome: 13:31 Decision to Hospitalize by Provider. rn 16:00 Admitted to ER Hold. Please see Pocket Concierge for further documentation. hb 16:00 Condition: stable hb 16:00 Instructed on the need for admit, Demonstrated understanding of instructions. 20:20 Admitted to Med/surg accompanied by nurse, via stretcher, room 217, with oxygen, with jb4 chart, Report called to LEILA Pena 20:20 Condition: stable 20:20 Instructed on the need for admit, Demonstrated understanding of instructions. 20:21 Patient left the ED. mw2 Signatures: Dispatcher [employer] EDMS Wood Melendez MD MD rn Baxter, Heather, RN RN Cedric Valle RN RN sr5 Shashi Lynn RN RN jb4 Anne Perez mw2
--- NOTE | 2020-05-29 13:32 | EDPHYS ---
Physician Documentation [facility] Name: Arminda Rodriguez Age: 80 yrs Sex: Female : 1940 Arrival Date: 05/29/2020 Time: 11:37 Bed 23 Private MD: ED Physician Wood Melendez HPI: 05/29 11:44 This 80 yrs old Female presents to ER via Wheelchair with complaints of Low rn Blood Sugar. 11:44 The patient or guardian reports hypoglycemia, that was potentially precipitated by no rn particular event, with the patient's symptoms witnessed by family. Onset: The symptoms/episode began/occurred just prior to arrival. Associated signs and symptoms: Pertinent positives: diaphoresis, Pertinent negatives: anorexia, polyuria, seizure activity, vomiting. Current symptoms: In the emergency department the patient's symptoms are unchanged from the initial presentation. The patient has experienced similar episodes in the past. The patient has been recently seen by a physician:. Just seen by pcp in clinic, sent to lab here for urinalysis due to urinary complaints recently, began to feel "bad", noted to be diaphoretic, glucose checked and was 35, given some oral glucose. No syncope. No focal neuro complaint. No chest pain. Reports long standing dyspnea, and family member reports in the process and being worked up for CHF. . Historical: - Allergies: 11:41 Amaryl; hb 11:41 Amoxicillin; hb 11:41 ANGIOTENSIN RECEPTOR ANTAGONIST; hb 11:41 Augmentin; hb 11:41 Byetta; hb 11:41 Demerol; hb 11:41 Hydrocodone-Acetaminophen; hb 11:41 Januvia; hb 11:41 Lantus; hb 11:41 metformin; hb 11:41 Niaspan; hb 11:41 QUINOLONES; hb 11:41 Iedymxl-Lgb-Fdi Reductase Inhibitors; hb 11:41 Tetanus Immune Globulin; hb 11:41 Zetia; hb - PMHx: 11:41 CAD; CVA; Diabetes - NIDDM; Hyperlipidemia; Hypertension; Myocardial infarction; hb VENTRAL HERNIA; - Immunization history:: Adult Immunizations up to date. - Social history:: Smoking status: Patient denies any tobacco usage or history of. - Family history:: not pertinent. - Hospitalizations: : No recent hospitalization is reported. ROS: 11:44 Constitutional: Negative for fever, chills, and weight loss, Eyes: Negative for injury, rn pain, redness, and discharge, Neck: Negative for injury, pain, and swelling, Cardiovascular: Negative for chest pain, palpitations Respiratory: Negative for wheezing, and pleuritic chest pain Abdomen/GI: Negative for abdominal pain, nausea, vomiting, diarrhea, and constipation, Back: Negative for injury and pain, MS/Extremity: Negative for injury and deformity, Skin: Negative for injury, rash, and discoloration, Neuro: Negative for headache, numbness, tingling, and seizure. 11:44 All other systems are negative. Exam: 11:44 Constitutional: Awake, ansering questions, drinking juice from straw Head/Face: rn Normocephalic, atraumatic. ENT: dry MM Cardiovascular: Bradycardic, regular Respiratory: Shallow breaths, diminished bilateral bases Abdomen/GI: Soft, non-tender Skin: Warm, dry MS/ Extremity: Pulses equal, no cyanosis. Neuro: Awake and alert, GCS 15, oriented to person, place and situation. Moves all 4 extremities, sensation grossly intact. No facial droop. 12:04 ECG was reviewed by the Attending Physician. rn Vital Signs: 11:37 BP 158 / 56; Pulse 46; Resp 20; Temp 97.7(TE); Pulse Ox 90% on R/A; Pain 0/10; hb 12:30 BP 148 / 86; Pulse 51; Resp 17; Pulse Ox 96% on 2 lpm NC; hb MDM: 11:40 Patient medically screened. rn 12:04 ED course: Pt with sinus bradycardia on ECG and monitor, family member states usually rn in 50s, she does not know medication she is on or if any changes recently. Pt more alert now after oral and IV glucose administered. . 13:28 Differential diagnosis: hypoglycemic episode, bradycardia, dehydration, CHF. Data rn reviewed: vital signs, nurses notes, lab test result(s), EKG, radiologic studies, plain films, and as a result, I will admit patient. Counseling: I had a detailed discussion with the patient and/or guardian regarding: the historical points, exam findings, and any diagnostic results supporting the discharge/admit diagnosis, lab results, radiology results, the need for further work-up and treatment in the hospital. Response to treatment: the patient's symptoms have mildly improved after treatment, and as a result, I will admit patient. Admission orders: after a detailed discussion of the patient's condition and case, the admit orders are written by me. ED course: Consulted with suzie Groves obs, requests MRI lumbar spine. . 05/29 11:42 Order name: CBC with Diff; Complete Time: 13:18 rn 05/29 11:42 Order name: Basic Metabolic Panel; Complete Time: 13:18 rn 05/29 11:42 Order name: Urine Microscopic Only 05/29 11:42 Order name: BNP; Complete Time: 13:18 rn 05/29 11:57 Order name: Troponin (emerg Dept Use Only); Complete Time: 13:18 rn 05/29 12:51 Order name: Glucose, Ancillary Testing [facility] 05/29 11:42 Order name: XRAY Chest (1 view); Complete Time: 12:45 05/29 13:03 Order name: CBC Smear Scan; Complete Time: 13:18 EDKY 05/29 16:01 Order name: COVID-19 : Document "Date of Symptom Onset" if Symptomatic. 05/29 16:04 Order name: Urine Dipstick--Ancillary (enter results) 05/29 16:17 Order name: Urine Dipstick-Ancillary [facility] 05/29 16:26 Order name: CORONAVIRUS [facility] 05/29 17:11 Order name: SARS-COV-2 RT PCR [facility] 05/29 17:44 Order name: Glucose, Ancillary Testing [facility] 05/29 11:42 Order name: IV Start; Complete Time: 12:08 05/29 11:42 Order name: Urine Dipstick-Ancillary (obtain specimen); Complete Time: 16:05 05/29 11:42 Order name: Glucose Level; Complete Time: 12:30 rn 05/29 11:42 Order name: EKG; Complete Time: 11:43 rn 05/29 11:42 Order name: EKG - Nurse/Tech; Complete Time: 12:08 rn 05/29 12:42 Order name: Diet Regular; Complete Time: 12:43 05/29 13:30 Order name: MRI Lumbar Spine wo Con rn 05/29 15:28 Order name: MRI EDMS EC:04 Rate is 43 beats/min. Rhythm is regular. QRS [place] is Normal. AL interval is normal. QRS rn interval is normal. QT interval is normal. No Q waves. T waves are Normal. No ST changes noted. Clinical impression: Sinus bradycardia. Interpreted by me. Reviewed by me. Administered Medications: 11:47 Drug: D50W 50 ml Route: IVP; Site: left antecubital; hb 12:30 Follow up: Response: No adverse reaction hb Point of Care Testing: Blood Glucose: 12:54 Blood Glucose: 107 mg/dL; sr5 12:54 MD notified, meal tray ordered sr5 Ranges: Critical Glucose Levels:Adult <50 mg/dl or >400 mg/dl <40 mg/dl or >180 mg/dl Disposition: 05/29/20 13:31 Hospitalization ordered by Frederick Gomez for Observation. Preliminary diagnosis are Near Syncope, Hypoglycemia, unspecified, Pulmonary edema, Dyspnea, unspecified. - Bed requested for Telemetry/MedSurg (observation). - Status is Observation. mw2 - Condition is Stable. - Problem is new. - Symptoms have improved. Signatures: Dispatcher [employer] EDMS Laisha Medina Roman, MD MD rn Baxter, Heather, RN RN Anne Perez mw2 Corrections: (The following items were deleted from the chart) 16:11 13:31 Hospitalization Ordered by Frederick Gomez MD for Observation. Preliminary diagnosis bd is Near Syncope; Hypoglycemia, unspecified; Pulmonary edema; Dyspnea, unspecified. Bed requested for Telemetry/MedSurg (observation). Status is Observation. Condition is Stable. Problem is new. Symptoms have improved. rn 18:42 16:11 05/29/2020 13:31 Hospitalization Ordered by Frederick Gomez MD for Observation. bd Preliminary diagnosis is Near Syncope; Hypoglycemia, unspecified; Pulmonary edema; Dyspnea, unspecified. Bed requested for [facility] ER HOLD. Status is Observation. Condition is Stable. Problem is new. Symptoms have improved. bd 20:21 18:42 05/29/2020 13:31 Hospitalization Ordered by Frederick Gomez MD for Observation. mw2 Preliminary diagnosis is Near Syncope; Hypoglycemia, unspecified; Pulmonary edema; Dyspnea, unspecified. Bed requested for Telemetry/MedSurg (observation). Status is Observation. Condition is Stable. Problem is new. Symptoms have improved. bd
--- NOTE | 2020-05-29 15:28 | RAD REPORT ---
EXAM DESCRIPTION: MRI - Lumbar Spine Wo Con- 05/29/2020 3:13 pm CLINICAL HISTORY: LOWER BACK PAIN Back pain, radiculopathy COMPARISON: MRI LUMBAR SPINE W O CON dated 09/17/2007 FINDINGS: Vertebral body heights are within normal limits. No aggressive marrow pattern is observed. No fracture is suspected. The conus medullaris terminates at a normal level. No thickening of the cauda equina or clumping of n erve roots seen. L1-2 level: Minimal posterior disc bulge is present without canal or foraminal stenosis. L2-3 level: Asymmetric posterior disc bulge to the right is present with mild facet and ligamentum fl avum hypertrophy. Right lateral recess is mildly narrowed. L3-4 level: Broad-based mild posterior disc bulge is seen with mild facet and ligamentum flavum hyper trophy. No central canal narrowing is seen no exit foraminal stenosis evident. L4-5 level: Mild broad-based posterior disc bulge is present with moderate facet hypertrophy, greater on the left. There is displacement of the traversing left L5 nerve root. No significant exit foramin al stenosis. L5-S1 level: 5 mm anterolisthesis of L5 on S1 noted. Both exit foramina are moderately narrowed. Exit ing nares are flattened. There is a large central protrusion disc material with posterior annular fis sure. Moderately severe facet and ligament flavum hypertrophy is seen with moderate central canal stephany nosis. IMPRESSION: Moderately severe degenerative spondylosis with 5 mm anterolisthesis at L5-S1. Moderate central canal and bilateral exit foraminal narrowing seen.
[2020-05-29 16:16] LABS: Urine Blood NEGATIVE (NEG); Urine Glucose NEGATIVE (NEG); Urine Protein NEGATIVE (NEG)
[2020-05-29 16:40] LABS: Urine Bacteria >50 /HPF (<20); Urine RBC <5 /HPF (NONE SEEN)
[2020-05-29] MEDS: INSULIN -REGULAR HUMAN 50 UNIT/0.5 ML ML SQ SCH ×2 (18:00→21:55)
[2020-05-29] MEDS ORDERED: D50W 25 GM/50 ML SYRINGE IV PRN (18:00)
[2020-05-29] MEDS ORDERED: GLUCAGON 1 MG/VIAL IM PRN (18:00)
[2020-05-29] MEDS ORDERED: INSULIN -REGULAR HUMAN 50 UNIT/0.5 ML ML ONE (18:36)
[2020-05-29 20:35] VITALS: BMI 44.7
[2020-05-29] MEDS ORDERED: ACETAMINOPHEN 500 MG TAB PO PRN (21:08)
[2020-05-29] MEDS ORDERED: HOME MED 1 EA UNK (Insulin Aspart [Novolog Flexpen] 100 UNIT/ML Insuln.Pen) SQ SCH (21:15)
[2020-05-29] MEDS: ROPINIROLE HCL 0.25 MG TAB PO SCH (21:58)
[2020-05-29] MEDS: PREGABALIN 75 MG CAP PO SCH (22:48)
[2020-05-30 04:37] LABS: Absolute Lymphocytes (CBC) 0.8 K/uL (0.7-4.9); Basophils % 0.4 % (0-1.3); Hematocrit 36.4 % (36.0-45.0); RBC Red Blood Cell Count 3.38 M/uL (3.86-4.86)
--- NOTE | 2020-05-30 07:04 | EKG ---
Test Date: 2020-05-29 Test Time: 11:02:24 Certified Personal Finance Counselor: ENRIQUE MEASUREMENT RESULTS: Intervals: Rate: 43 DE: 162 QRSD: 110 QT: 530 QTc: 447 [place]: P: 46 DE: 162 QRS: -21 T: 76 INTERPRETIVE STATEMENTS: Marked sinus bradycardia with sinus arrhythmia Abnormal ECG Compared to ECG 05/08/2019 14:11:28 No significant changes Electronically Signed On 05-30-20 07:02:30 CDT by Adán Harvey
[2020-05-30] MEDS ORDERED: CHOLECALCIFEROL 1000 UNIT PO SCH (09:00)
[2020-05-30] MEDS ORDERED: PREGABALIN 75 MG CAP PO SCH (09:00)
[2020-05-30] MEDS: PREGABALIN 75 MG CAP PO SCH ×2 (09:00→21:00)
[2020-05-30] MEDS: MAGNESIUM OXIDE 400 MG TAB PO SCH (09:00)
[2020-05-30] MEDS ORDERED: FUROSEMIDE 20 MG TABLET PO SCH (09:00)
--- NOTE | 2020-05-30 09:18 | RAD REPORT ---
EXAM DESCRIPTION: CT - Stone Protocol - 05/30/2020 9:03 am CLINICAL HISTORY: Abdominal pain. COMPARISON: None. TECHNIQUE: Computed axial tomography of the abdomen pelvis was obtained without oral or IV contrast. Lack of IV and oral contrast limits evaluation of solid organs, bowel, and vessels. Coronal reformat frank images were obtained and reviewed. All CT scans are performed using dose optimization technique as appropriate and may include automated exposure control or mA/KV adjustment according to patient size. FINDINGS: A renal calculus is not seen. An ureteral calculus is not noted. A bladder calculus is not present. Cholecystectomy. Hysterectomy. The liver, spleen, pancreas and adrenals appear grossly normal There is no evidence of diverticulitis. Mild anterior subluxation L5 on S1. Spondylolysis L5 Mild to moderate bilateral interstitial lung opacities. Small umbilical hernia IMPRESSION: Negative for a genitourinary calculus Mild to moderate bilateral interstitial lung opacities may indicate pulmonary edema
[2020-05-30] MEDS: ATORVASTATIN 80 MG TAB PO SCH (09:41)
[2020-05-30] MEDS: HYDROXYUREA 500 MG CAP PO SCH ×2 (09:42→22:07)
[2020-05-30] MEDS: CEFUROXIME 250 MG TAB PO SCH ×2 (09:42→22:03)
[2020-05-30] MEDS: hydrOXYzine HCL 25 MG TAB PO SCH (09:43)
[2020-05-30] MEDS: ASPIRIN 81 MG CHEWABLE TABLET PO SCH (09:43)
[2020-05-30] MEDS: ROPINIROLE HCL 0.25 MG TAB PO SCH ×2 (09:43→22:03)
[2020-05-30] MEDS: INSULIN -REGULAR HUMAN 50 UNIT/0.5 ML ML SQ SCH ×4 (09:46→22:05)
[2020-05-30 11:56] LABS: Urine Appearance CLOUDY; Urine Bilirubin NEGATIVE (NEG); Urine Blood NEGATIVE (NEG); Urine Color YELLOW; Urine Glucose 2+ (NEG); Urine Protein NEGATIVE (NEG); Urine Urobilinogen 0.2 mg/dL (0.2-1.0)
[2020-05-30 12:23] LABS: Urine Bacteria LOADED /HPF (<20); Urine RBC NONE SEEN /HPF (NONE SEEN)
[2020-05-30] MEDS ORDERED: INSULIN DETEMIR 100 UNIT/ML SQ SCH (17:00)
[2020-05-30] MEDS ORDERED: INSULN SQ SCH (17:00)
[2020-05-30] MEDS: FUROSEMIDE 40 MG/4 ML VIAL IV SCH (17:45)
[2020-05-30] MEDS: POTASSIUM CL SA 10 MEQ TAB PO SCH (21:00)
--- NOTE | 2020-05-30 21:28 | P.HP ---
Certification for Inpatient Patient admitted to: Observation With expected LOS: <2 Midnights Practitioner: I am a practitioner with admitting privileges, knowledge of patient current condition, hospital course, and medical plan of care. Services: Services provided to patient in accordance with Admission requirements found in Title 42 Section 412.3 of the Code of Federal Regulations Patient History Date of Service: 05/30/20 Reason for admission: NEAR SYNCOPE History of Present Illness: MR MORENO CAME TO [facility] I HAD ASKED TO COLLECT URINE SAMPLE. SHE HAD NEAR SYNCOPE EPISODE AND SO SHE WAS ADMITTED. SHE HAD NO CHEAT PAIN. HER PAIN IS MAINLY FLANK PAIN AND SPINAL PAIN. Allergies amoxicillin Allergy (Verified 05/30/20 03:48) Anaphylaxis clavulanic acid [From Augmentin] Allergy (Verified 05/30/20 03:48) Hives/Rash exenatide [From Byetta] Allergy (Verified 05/30/20 03:48) Itching/Hives/Rash ezetimibe [From Zetia] Allergy (Verified 07/27/18 13:00) Itching/Hives/Rash glimepiride [From Amaryl] Allergy (Verified 05/30/20 03:48) Itching/Hives/Rash hydrocodone Allergy (Verified 05/30/20 03:48) Nausea/Vomiting insulin glargine [From Lantus U-100 Insulin] Allergy (Verified 05/30/20 03:48) myalgia meperidine [From Demerol] Allergy (Verified 05/30/20 03:48) Itching/Hives/Rash metformin Allergy (Verified 05/30/20 03:48) unknown niacin [From Niaspan Extended-Release] Allergy (Verified 05/30/20 03:48) Itching/Hives/Rash Quinolones Allergy (Verified 05/30/20 03:48) Itching/Hives/Rash sitagliptin [From Januvia] Allergy (Verified 05/30/20 03:48) Itching/Hives/Rash Jjewxup-Lcm-Mee Reductase Inhibitor Allergy (Verified 05/30/20 03:48) Nausea/Vomiting tetanus and diphtheria toxoids Allergy (Verified 05/30/20 03:48) Itching/Hives/Rash spironolactone Adverse Reaction (Verified 05/30/20 03:48) high K, Dehydration angiotensin Allergy (Uncoded 07/27/18 13:00) Nausea/Vomiting Home Medications: Aspirin 81 mg PO DAILY 05/08/19 Cholecalciferol (Vitamin D3) [Vitamin D3] 5,000 unit PO BID 05/08/19 Furosemide 20 mg PO DAILY 05/08/19 Insulin Detemir [Levemir Flextouch] 15 unit SQ DAILY AT SUPPER 05/08/19 Insulin Detemir [Levemir Flextouch] 30 unit SQ DAILY WITH BREAKFAST 05/08/19 Magnesium Oxide [Mag 0X*] 400 mg PO DAILY 05/08/19 Pregabalin 75 mg PO BID 05/08/19 Ropinirole HCl [Requip*] 0.5 mg PO BID 05/08/19 Atorvastatin Calcium [Lipitor] 80 mg PO DAILY 05/29/20 Cefuroxime [Ceftin*] 250 mg PO BID 05/29/20 Hydroxyurea [Hydrea*] 500 mg PO BID 05/29/20 Insulin Aspart [Novolog Flexpen] 10 unit SQ SEECOM 05/29/20 Pantoprazole [Protonix Tab*] 40 mg PO DAILY 05/29/20 hydrOXYzine HCL [Atarax*] 25 mg PO DAILY 05/29/20 - Past Medical/Surgical History Has patient received pneumonia vaccine in the past: Yes Diabetic: Yes -: HTN -: DM 2 -: stroke 2014 -: Thrombocytopenia -: Hernia -: SOB -: Stroke x 3 -: CAD -: carotid stenosis right 90% -: vertiginous syndrome -: hyperglobulinemia, hypergammaglobulinemia -: dyslipidemia -: Hysterectomy -: Bladder suspension -: Hernia repair -: Spleenectomy -: Cholesystectomy -: Tonsillectomy -: Colonoscopy and Polyps removal -: endarterectomy, carotid 07/2018 - Family History Father -: Heart disease - Social History Smoking Status: Never smoker Alcohol use: No CD- Drugs: No Caffeine use: No Review of Systems 10-point ROS is otherwise unremarkable General: Weakness Gastrointestinal: As per HPI Physical Examination - Vital Signs Temperature: 96.9 F Blood Pressure: 149/65 Pulse: 63 Respirations: 20 Pulse Ox (%): 97 - Physical Exam General: Oriented x3, Moderate distress, Obese HEENT: Atraumatic Neck: Supple, JVD not distended, No Thyromegaly Respiratory: Diminished Cardiovascular: No edema, Normal S1 S2, Edema Gastrointestinal: Normal bowel sounds, Soft and benign Assessment and Plan - Problems (Diagnosis) (1) Near syncope Current Visit: Yes Status: Acute Plan: THIS IS MOST LIKELY FROM BRADYCARDIA SHE IS NOT ON ANY AGENTS THAT CAN CAUSE IT. SHE MAY NEED PPM. 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 BOTH SUGGEST THAT PAIN IS FROM RADICULPATHY SHE IS MORBIDLY OBESE. 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 ' KCL PO LOSARTAN DAILY. NOW PER NEW RECOMMENDATIONS ENTRESTO WILL BE NEEDED. 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 - Advance Directives Does patient have a Living Will: No Does patient have a Durable POA for Healthcare: Yes
[2020-05-30] MEDS: SACUBITRIL/VALSARTAN 24/26 MG TAB PO SCH (22:03)
[2020-05-31 04:23] LABS: Absolute Lymphocytes (CBC) 1.8 K/uL (0.7-4.9); Basophils % 0.7 % (0-1.3); Hematocrit 37.5 % (36.0-45.0); Lymphocytes % 28.2 % (15.3-44.8); MPV 11.3 fL (7.6-11.3); RBC Red Blood Cell Count 3.48 M/uL (3.86-4.86)
[2020-05-31] MEDS: INSULN SQ SCH (08:00)
[2020-05-31] MEDS: INSULIN DETEMIR 100 UNIT/ML SQ SCH (08:00)
--- NOTE | 2020-05-31 08:54 | RAD REPORT ---
EXAM DESCRIPTION: CT - Chest For Pe Angio - 05/31/2020 7:35 am CLINICAL HISTORY: Hypoxia COMPARISON: None. TECHNIQUE: Dynamically enhanced axial 3 mm thick images of the chest were obtained during administra tion of <100> mL Isovue 370 IV contrast. Coronal and oblique reconstruction images were generated and reviewed. Exam utilizes a protocol for optimal evaluation of pulmonary arterial tree. Maximum intensity projections 3D imaging was utilized All CT scans are performed using dose optimization technique as appropriate and may include automated exposure control or mA/KV adjustment according to patient size. FINDINGS: A small amount of thrombus suspected right lower lobe subsegmental pulmonary artery. No ad ditional pulmonary embolus is seen. A thoracic aortic aneurysm is not noted. A pleural effusion is not seen. A pericardial effusion is not seen. Mild ground-glass opacities within the right lung. Mild to moderate ground-glass opacities within lef t lung. IMPRESSION: Small amount of right lower lobe pulmonary emboli Mild right and mild to moderate ground-glass opacities indicative of an alveolitis. This may indicate pulmonary edema, pneumonia or pneumonitis
[2020-05-31] MEDS: INSULIN -REGULAR HUMAN 50 UNIT/0.5 ML ML SQ SCH ×2 (08:58→12:01)
[2020-05-31] MEDS: SACUBITRIL/VALSARTAN 24/26 MG TAB PO SCH (08:59)
[2020-05-31] MEDS: ATORVASTATIN 80 MG TAB PO SCH (08:59)
[2020-05-31] MEDS: hydrOXYzine HCL 25 MG TAB PO SCH (08:59)
[2020-05-31] MEDS: HYDROXYUREA 500 MG CAP PO SCH (08:59)
[2020-05-31] MEDS: CEFUROXIME 250 MG TAB PO SCH (08:59)
[2020-05-31] MEDS: MAGNESIUM OXIDE 400 MG TAB PO SCH (09:00)
[2020-05-31] MEDS: PREGABALIN 75 MG CAP PO SCH (09:00)
[2020-05-31] MEDS: FUROSEMIDE 40 MG/4 ML VIAL IV SCH (09:02)
[2020-05-31] MEDS: ASPIRIN 81 MG CHEWABLE TABLET PO SCH (09:02)
[2020-05-31] MEDS: POTASSIUM CL SA 10 MEQ TAB PO SCH (09:02)
[2020-05-31] MEDS: ROPINIROLE HCL 0.25 MG TAB PO SCH (09:02)
[2020-05-31] MEDS ORDERED: APIXABAN 5 MG TABLET PO ONE (10:06)
[2020-05-31 11:53] VITALS: O2SAT 92
[2020-05-31 15:10] VITALS: BP 104/51; TEMP 98.6
--- NOTE | 2020-05-31 21:58 | P.DS ---
Admission Date: 05/30/20 Discharge Date: 05/31/20 Disposition: ROUTINE DISCHARGE Discharge Condition: FAIR Reason for Admission: NEAR SYNCOPE - Problems (1) Near syncope Status: Acute (2) Flank pain Status: Acute (3) Sinus bradycardia Status: Chronic (4) Diabetes Status: Chronic Qualifiers: Diabetes mellitus type: type 2 Diabetes mellitus residential insulin use: with residential use Diabetes mellitus complication status: with circulatory complication (5) Diastolic CHF, acute on chronic Status: Acute Brief History of Present Illness: MR MORENO CAME TO [facility] I HAD ASKED TO COLLECT URINE SAMPLE. SHE HAD NEAR SYNCOPE EPISODE AND SO SHE WAS ADMITTED. SHE HAD NO CHEAT PAIN. HER PAIN IS MAINLY FLANK PAIN AND SPINAL PAIN. Hospital Course: AMBIKA CAME FOR OP URINE TEST FOR FLANK PAIN. SHE HAD NEAR SYNCOPE EPISODE, HYPOXIA, HER CXR SHOWS CHF. I ADDED LASIX IV, ENTRESTO PO AND LATER FOUND THAT SHE HAS SMALL AMOUNT OF PE ALSO SO I ADDED ELIQUIS PO. LATER DAUGHTER CADEN DME THAT ELIQUIS IS TOO COSTLY. I GAVE HER SAMPLES UNTIL THE VISIT. HER PROGNOSIS IS GUARDED THERE ARE MANY SYSTEMS WITH DYSFUNCITON IN HER AND SHE IS 80 WITH MORBID OBESITY. Vital Signs/Physical Exam: Temp Pulse Resp BP Pulse Ox 98.6 F 48 L 20 104/51 L 97 05/31/20 12:00 05/31/20 12:00 05/31/20 12:00 05/31/20 12:00 05/31/20 12:00 Laboratory Data at Discharge: WBC 6.40 K/uL (4.3-10.9) D 05/31/20 03:37 Hgb 12.7 g/dL (12.0-15.0) 05/31/20 03:37 Hct 37.5 % (36.0-45.0) 05/31/20 03:37 Plt Count 243 K/uL (152-406) 05/31/20 03:37 Sodium 137 mmol/L (136-145) 05/31/20 03:37 Potassium 4.0 mmol/L (3.5-5.1) 05/31/20 03:37 BUN 28 mg/dL (7-18) H 05/31/20 03:37 Creatinine 1.07 mg/dL (0.55-1.3) 05/31/20 03:37 Glucose 275 mg/dL (74-106) H 05/31/20 03:37 Home Medications: Aspirin 81 mg PO DAILY 05/08/19 Cholecalciferol (Vitamin D3) [Vitamin D3] 5,000 unit PO BID 05/08/19 Insulin Detemir [Levemir Flextouch] 15 unit SQ DAILY AT SUPPER 05/08/19 Insulin Detemir [Levemir Flextouch] 30 unit SQ DAILY WITH BREAKFAST 05/08/19 Magnesium Oxide [Mag 0X*] 400 mg PO DAILY 05/08/19 Pregabalin 75 mg PO BID 05/08/19 Ropinirole HCl [Requip*] 0.5 mg PO BID 05/08/19 Atorvastatin Calcium [Lipitor] 80 mg PO DAILY 05/29/20 Cefuroxime [Ceftin*] 250 mg PO BID 05/29/20 Hydroxyurea [Hydrea*] 500 mg PO BID 05/29/20 Insulin Aspart [Novolog Flexpen] 10 unit SQ SEECOM 05/29/20 Pantoprazole [Protonix Tab*] 40 mg PO DAILY 05/29/20 hydrOXYzine HCL [Atarax*] 25 mg PO DAILY 05/29/20 Furosemide 40 mg PO DAILY #90 tablet 05/31/20 Sacubitril/Valsartan [Entresto 24 mg-26 mg Tablet] 1 tab PO BID #60 tab 05/31/20 New Medications: Sacubitril/Valsartan [Entresto 24 mg-26 mg Tablet] 1 tab PO BID #60 tab Furosemide 40 mg PO DAILY #90 tablet Followup: NONE,NONE [Primary Care Provider] -
== END 2020-05-31 15:19 | disposition home or self-care (01) | DRG 291 ==
LOC: ER 11:35 → ERHOLD 13:34 → 2ND 19:59 → OBSVTOIN 05-30 23:17
PROVIDERS: ADMIT Internal Medicine; ATTEND Internal Medicine
DX: I11.0 Hypertensive heart disease with heart failure (principal); I26.99 Other pulmonary embolism without acute cor pulmonale; Z68.41 Body mass index [BMI] 40.0-44.9, adult; I50.33 Acute on chronic diastolic (congestive) heart failure; E66.01 Morbid (severe) obesity due to excess calories; I25.10 Atherosclerotic heart disease of native coronary artery without angina pectoris; E78.5 Hyperlipidemia, unspecified; I25.2 Old myocardial infarction; M19.90 Unspecified osteoarthritis, unspecified site; E11.59 Type 2 diabetes mellitus with other circulatory complications; R00.1 Bradycardia, unspecified; R09.02 Hypoxemia; Z88.5 Allergy status to narcotic agent; Z88.8 Allergy status to other drugs, medicaments and biological substances; Z86.73 Personal history of transient ischemic attack (TIA), and cerebral infarction without residual deficits; Z79.82 Long term (current) use of aspirin; Z79.4 Long term (current) use of insulin; Z88.1 Allergy status to other antibiotic agents; Z79.899 Other long term (current) drug therapy; Z90.710 Acquired absence of both cervix and uterus; Z90.49 Acquired absence of other specified parts of digestive tract; Z20.822 Contact with and (suspected) exposure to COVID-19
CPT/HCPCS: 36415; 71045; 71275; 72148; 74176; 76377; 80048; 81001; 81003; 81015; 82947; 83880; 84484; 85025; 87077; 87086; 87088; 87186; 93005; 96374; 99285; G0378; J1940; Q9967; U0003

== ENCOUNTER 2020-06-13 10:54 | Emergency (ER) | payer OTHER ==
--- OUTSIDE RECORDS SUMMARY | 2020-06-13 11:03 | XMS REPORT | Continuity of Care Document ---
:1940 Author Organization [facility] t Address [address] [place] [address] Care Team Providers Name Role Phone Pcp [...] Disease Active [facility] da[facility] da[facility] -31 [facility] Coronary Coronary Disease Active [facility] arterioscl arterioscl 5-30 Jennifer kes - erosis erosis 00:00: Medical 00 Center 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 [facility] 4 4 5-30 [facility] Center Bradycardi Bradycardi Disease Active C [facility] a a 530 [facility] Acute Acute Disease Active [facility] prerenal prerenal -30 [facility] - azotemia azotemia 00:00: Medica l 00 Center Hyperchlor Hyperchlor Disease Active C [facility] emic emic 5-30 [facility] - metabolic metabolic 00:00: [facility] saira acidosis acidosis 00 Center Acute Acute [...] disease) 00 Center STROKE, Diagnosis Active 2015-02-05 Ny moria EMOBOLIC 12-01 16:40:00 l STROKE, 00:00: [place] EMOBOLIC 00 Active 12/01/2014 [facility] CVA Diagnosis Active 2014-12-13 Mem oria 11-08 16:45:00 l CVA 00:00: [place] 00 Active 11/08/2014 [facility] GRAZYNA Diagnosis Active 2015-02-05 Memoria BILLING 11-08 16:39:00 l 4255 00:00: [place] GRAZYNA 00 BILLING 4255 Active 11/08/2014 [facility] Hypotensio Hypotensio Disease Active C [facility] n due to n due to [facility] - hypovolemi hypovolemi Me dical a a Center Normal Normal Disease Active [facility] anion gap anion gap Luke s - metabolic metabolic Medi saira acidosis acidosis Center Clotting Clotting Problem Active Unive rs disorder disorder ity of [facility] ans Muscle Muscle Problem Active Univers weakness weakness ity of [facility] ans Polyneurop Polyneurop Problem Active U nivers athy athy ity of [facility] ans Stroke, Stroke, Problem Active Univers embolic embolic ity of [facility] ans Diabetes Diabetes Problem Active Unive rs mellitus mellitus ity of type 2, type 2, [place] uncontroll uncontroll Ph ysici ed ed ans Essential Essential Problem Active Uni vers (primary) (primary) ity of hypertensi hypertensi [place] Physic ans Hyperlipid Hyperlipid Problem Active U nivers emia emia ity of [facility] ans Multiple Multiple Problem Active Unive rs thyroid thyroid ity of nodules nodules [facility] ans Vitamin D Vitamin D Problem Active Uni vers deficiency deficiency it y of disease disease [facility] ans Asthma Problem Resolve 2015-04-13 Tobi benedict (disorder) d 05:10:29 l Asthma [place] (disorder) Resolved Problem 04/13/2015 [facility], FELIZ Wild, FELIZ Rubi dm Problem Resolve 2015-04-13 Tobi benedict (qualifier d 05:10:29 l value) dm [place] (qualifier value) Resolved Problem 04/13/2015 [facility], FELIZ Wild, FELIZ Rubi Glaucoma Problem Resolve 2015-04-13 Me moria (disorder) d 05:10:29 l Glaucoma Michael n (disorder) Resolved Problem 04/13/2015 [facility], FELIZ Wild, FELIZ Rubi Hypertensi Problem Resolve 2015-04-13 Memoria ve d 05:10:29 l disorder, [place] systemic Hypertensi arterial ve (disorder) disorder, systemic arterial (disorder) Resolved Problem 04/13/2015 [facility], FELIZ Wild, OPIJai Rubi Myocardial Problem Resolve 2015-04-13 Memoria infarction d 05:10:29 l (disorder) Michael n Myocardial infarction (disorder) Resolved Problem 04/13/2015 [facility], OPIJai Wild, OPID [place] Diabetic Problem Resolve 2015-04-13 Me moria neuropathy d 05:10:29 l (disorder) Diabetic He rmann neuropathy (disorder) Resolved Problem 04/13/2015 [facility], FELIZ Wild, OPIJai [place] Transient Problem Resolve 2015-04-13 M emoria ischemic d 05:10:29 l attack [place] (disorder) Transient ischemic attack (disorder) Resolved Problem 04/13/2015 [facility], FELZI Wild, FELIZ Rubi CVA Diagnosis Active 2015-02-05 Mem oria 16:40:00 l CVA [place] Active [facility] CEREBRAL Diagnosis Active 2015-02-05 M emoria EMBOLISM W 16:40:00 l CI CEREBRAL Michael n EMBOLISM W CI Active [facility] Hypercalce Hypercalce Problem Active U [facility] Physici ans Allergies, Adverse Reactions, Alerts Allergy [...] Propensi Active [facility] ty to 5-21 [facility] - adverse 00:00: [...] Propensi Active [facility] Vaccines ty to 5 [facility] - And adverse 00:00: Medical Toxoid reaction 00 Center s Angioten Propensi Active [facility] sin ty to 5-21 [facility] - I,Human adverse 00:00: Medical reaction 00 Center s Caffeine Propensi Active [facility] ty to 5-21 [facility] - adverse 00:00: Medical reaction 00 Center s Clavulan Propensi Active [facility] ic Acid ty to 521 [facility] - adverse 00:00: Medical reaction 00 [...] reaction 00 Center s Glimepir Propensi Active 2018- [facility] rodr[facility]guez ty to 5-21 [facility] - adverse 00:00: Medical reaction 00 Center s Amaryl drug Active Univers allergy ity of [place] Physici ans amoxicil drug Active Univers andrew allergy ity of [place] Physici ans Angioten drug Active Univers sin allergy ity of [facility] Blockers Physici ans Augmenti drug Active Univers n allergy ity of [place] Physici ans Byetta drug Active Univers SOLN allergy ity of [place] Physici ans Cipro drug Active Univers allergy ity of [place] Physici ans hydrocod drug Active Univers one allergy ity of [place] Physici ans Januvia drug Active Univers TABS allergy ity of [place] Physici ans Lantus drug Active Univers allergy ity of [place] Physici ans Levaquin drug Active Univers allergy ity of [place] Physici ans Lipitor drug Active Univers allergy ity of [place] Physici ans Meperidi drug Active Univers ne HCl allergy ity of [facility] Physici ans MetFORMI drug Active Univers N HCl allergy ity of [facility] Physici ans Niaspan drug Active Univers TBCR allergy ity of [place] Physici ans Statins drug Active Univers allergy ity of [place] Physici ans TETANUS drug Active Univers allergy ity of [place] Physici ans Demerol Demerol Active Memoria HCl HCl l [place] glimepir glimepir Active Memori a rodríguez rodríguez l [place] HYDROcod HYDROcod Active Memori a one-PPA one-PPA l [place] Januvia Januvia Active Memoria l [place] Lantus Lantus Active Memoria l [place] Zetia drug Active Univers allergy ity of [place] Physici ans Levaquin Levaquin Active Memori a l [place] metFORMI metFORMI Active Memori a N N l [place] Niaspan Niaspan Active Memoria ER ER l [place] statins statins Active Memoria l [place] tetanus tetanus Active Memoria immune immune l globulin globulin Michael n Zetia Zetia Active Memoria l [place] amoxicil amoxicil Active Memori a andrew andrew l [place] angioten angioten Active Memori a sin sin l converti converti Michael n ng ng enzyme enzyme inhibito inhibito rs rs antihist antihist Active Memori a amines amines l [place] Byetta Byetta Active Memoria Prefille Prefille l d Pen d Pen [place] Family History Family Member Diagnosis Comments Start Date Stop Date Source Father Family history of Univers ity of [facility] Physicia ns arteriosclerosis Social History Social Habit Start Date Stop Date Quantity Comments Source History SDOH [facility] - Alcohol Std Drinks Medica l [facility] L[facility] - Alcohol Binge Medical Darren ter Sex Assigned At [facility] [place] Tobacco use and 2018-08-25 2018-08-25 Never used [facility] kes - exposure 00:00:00 00:00:00 [facility] Alcohol intake 2018-08-25 2018-08-25 Current [facility] Castillo es - 00:00:00 00:00:00 non-drinker of Medical Ce nter alcohol (finding) History SDOH 2018-08-05 2018-08-05 [address] [facility] [address] [facility] - Alcohol Frequency 00:00:00 00:00:00 [facility] Social History 2014-11-09 2014-11-09 [facility] 03:26:32 03:26:32 Smoking Status Start Date Stop Date Source Former smoker [facility] Physicians [facility] [place] Medications Ordered Filled Start Stop Current Ordering Indication Dosage Frequency Signature Comments Components Source Medication Medication Date Date Medication? Clinician (SIG) Name Name timolol 2018- Yes open angle 1[drp] Q.5D [address] (BETIMOL) 08-25 glaucoma (two) [facility] - 0.5 % 10:06: times Medical ophthalmic 45 daily. Center solution fluocinonid 2018-0 Yes Q.5D Apply [facility] (LIDEX) 08-25 topically [facility] - 0.05 % 10:06: 2 (two) Medical cream 45 times Center daily. hydroxyurea 2018-0 Yes Q.5D Take by [facility] (DROXIA) [...] Take [address] (ANTIVERT) 08-25 by mouth 3 Castillo es - 25 [...] Center hours as needed for Pain. magnesium 2018-0 Yes 400mg QD Take [address] [...] Center mouth 2 (two) times daily. nystatin 2019-0 2020- No Q.5D Apply [facility] (MYCOSTATIN 6-10 - topically Jennifer kes - ) 100,000 00:00: 23:59 2 (two) Medi saira unit/gram 00 :00 times Center cream daily. Tresiba Tresiba Yes CITLALI 30 QD INJECT 30 Univers FlexTouch FlexTouch 11-14 SENDOS UNIT DAILY ity of 100 UNIT/ML 100 UNIT/ML 00:00: M.D. [place] Subcutaneou Subcutaneou 00 P hysici s Solution s Solution ans Pen-injecto Pen-injecto r r Toujeo Toujeo Yes CITLALI 30 QD INJECT 30 U nivers SoloStar SoloStar 11-12 SENDOS UNIT DAILY ity of 300 UNIT/ML 300 UNIT/ML 00:00: M.D. [place] Subcutaneou Subcutaneou 00 P hysici s Solution s Solution ans Pen-injecto Pen-injecto r r OneTouch OneTouch Yes CITLALI uses 4 Univers Delica Delica 6-27 SENDOS daily ity of Lancets 33G Lancets 33G 00:00: M.D. [place] 00 Physici ans OneTouch OneTouch Yes CITLALI Q0.25D TEST 4 Univers Ultra Blue Ultra Blue 6-27 SENDOS TIMES ity of In Vitro In Vitro 00:00: M.D. DAILY. Guillermo as Strip Strip 00 Physici ans Gabapentin Gabapentin Yes [facility] TAKE 1 Univers 100 MG Oral 100 MG Oral 3-02 OKPALA CAPSULE AT ity of Capsule Capsule 00:00: N.P. BEDTIME. Guillermo as 00 Physici ans Aspirin 81 Aspirin 81 2014-03 Yes 1 QD TAKE 1 Univers MG TABS MG TABS 0-20 TABLET ity of 00:00: DAILY. [place] 00 Physici ans MaxEPA No 2 gm, 2 Memoria 11-10 cap, l 16:00: Route: PO, [place] 00 Drug form: CAP, Q12H, Start date: 11/10/14 11:00:00, Duration: 30 day, Stop date: 12/10/14 9:00:00 Aspirin 325 Yes 325 mg = 1 Memoria MG Oral 9-04 tab, PO, l Tablet 15:34: Daily, # [place] 00 30 tab, 0 Refill(s) omega-3 Yes 2 gm = 2 Memori a polyunsatur 04 cap, PO, l ated fatty 15:34: Q12H, # 60 H ermann acids 1000 00 cap, 0 mg oral Refill(s) capsule Dumas-3 No 2,000 mg, Memor ia Acid Ethyl 04 2 cap, l Esters 14:00: Route: PO, Lidya nn (JAIL) 1000 00 Dosing MG Oral Weight Capsule 105.455, [Lovaza] kg, BID, Start date: 11/10/14 9:00:00, Duration: 30 day, Stop date: 12/09/14 17:00:00 Aspirin No 325 mg, Memoria 11-10 Route: PO, l 14:00: Drug form: [place] 00 TAB, Daily, Dosing Weight 105.455, kg, Start date: 11/10/14 9:00:00, Duration: 30 day, Stop date: 12/09/14 9:00:00 heparin No 5,000 Memoria 11-10 unit, l 05:00: Route: [place] 00 SUB-Q, Q8H, Dosing Weight 105.455, kg, Start date: 11/10/14 0:00:00, Duration: 30 day, Stop date: 12/09/14 16:00:00 Levemir No Notes: Memoria 11-10 Same as l 03:19: Levemir Do [place] 00 not hold insulin without contacting prescriber [...] 11-09 tab, l 75mg/placeb 14:00: Route: PO, [place] o tablet Drug form: Maintenance TAB, Dose Daily, Start date: 11/09/14 9:00:00, Duration: 89 day, Stop date: 02/05/15 9:00:00 Aspirin 325 No Notes: Tobi benedict MG Oral 11-09 Take with l Tablet 14:00: food. [place] 00 Insulin, No Notes: Memoria Aspart, 11-09 Roll in l Human 05:11: palms of hands gently; Do not shake vigorously . (Same as: NovoLOG) "single patient use only" Stable for 28 days at room temperatur e. Expires in days from ____Date Dextrose No 12.5 gm, Memor ia 50% Syringe 11-09 25 mL, l 05:11: Route: [place] IVP, Drug Form: INJ, Dosing Weight 105.455, kg, PRN, PRN Blood Glucose Results, Start date: 11/09/14 0:11:00, Duration: 30 day, Stop date: 12/09/14 0:10:00 Glucagon No 1 mg, Memoria 11-09 Route: IM, l 05:11: Drug form: [place] 00 PDR/INJ, PRN, Dosing Weight 105.455, kg, PRN Blood Glucose Results, Start date: 11/09/14 0:11:00, Duration: 30 day, Stop date: 12/09/14 0:10:00 Levemir No Notes: Memoria 11-09 Same as l 02:00: Levemir Do [place] not hold insulin without contacting prescriber "single patient use only" Insulin, No Notes: Memoria Aspart, 11-09 Roll in l Human 01:24: palms of [place] hands gently; Do not shake vigorously . (Same as: NovoLOG) "single patient use only" Stable for 28 days at room temperatur e. Expires in days from ____Date Dextrose No 25 gm, 50 Tobi benedict 50% Syringe 11-09 mL, Route: l 01:24: IVP, Drug [place] Form: INJ, kg, PRN, PRN Blood Glucose [...] 11-09 tab, l 75mg/placeb 01:00: Route: PO, [place] o tablet 00 Drug form: Loading TAB, ONCE, Dose Start date: 11/08/14 20:00:00, Stop date: 11/08/14 20:00:00 Ativan No Notes: Memoria 11-09 (Same as: l 00:49: Ativan) [place] Ondansetron No Notes: Tobi benedict 11-09 (Same as: l 00:37: Zofran) [place] MEDICATION WASTE Product Size: 4 mg Product [...] l oral tablet 00:33: Daily, # He 90 tab, 1 Refill(s) NovoLog Yes Special [...] Oral TABLET ity of Tablet Tablet DAILY. [place] Physici ans NovoLOG NovoLOG Yes Inject 10 Univ ers FlexPen 100 FlexPen 100 units ity of UNIT/ML UNIT/ML before [place] Subcutaneou Subcutaneou each meal Physici s Solution s Solution subcutaneo ans Pen-injecto Pen-injecto usly r r Spironolact Spironolact Yes 1 QD TAKE 1 Univers one 50 MG one 50 MG TABLET ity of Oral Tablet Oral Tablet DAILY. [place] Physici ans Levemir Levemir Yes Inject 20 Univ ers FlexTouch FlexTouch units ity of 100 UNIT/ML 100 UNIT/ML subcu once [place] Subcutaneou Subcutaneou a day Physici s Solution s Solution befor an s Pen-injecto Pen-injecto meal. r r Jublia 10 % Jublia 10 % Yes U nivers External External ity of Solution Solution [place] Physici ans Vital Signs Vital Name Observation Time Observation Value Comments Source BMI Calculated 2014-12-06 12:26:00 Ben benitez [place] Weight 2014-12-06 12:26:00 [facility] [place] Height 2014-12-06 12:26:00 162.56 cm [facility] [place] Systolic (mm Hg) 2014-11-10 12:45:00 Tobi rial [place] Diastolic (mm Hg) 2014-11-10 12:45:00 Mem orial [place] Respitory Rate 2014-11-10 12:45:00 Memori al [place] Heart Rate 2014-11-10 12:45:00 [facility] [place] Temperature Oral (F) 2014-11-10 12:45:00 97.3 F [facility] [place] Temperature Oral (F) 2014-11-10 08:17:00 97.8 F [facility] [place] Systolic (mm Hg) 2014-11-10 08:17:00 Tobi rial [place] Diastolic (mm Hg) 2014-11-10 08:17:00 Mem orial [place] Respitory Rate 2014-11-10 08:17:00 Memori al [place] Systolic (mm Hg) 2014-11-10 04:33:00 Tobi rial [place] Diastolic (mm Hg) 2014-11-10 04:33:00 Mem orial [place] Temperature Oral (F) 2014-11-10 04:33:00 97.8 F [facility] [place] Respitory Rate 2014-11-10 04:33:00 Memori al [place] Heart Rate 2014-11-09 16:15:00 [facility] [place] Heart Rate 2014-11-09 16:00:00 [facility] [place] Weight 2014-11-09 02:52:00 [facility] [place] BMI Calculated 2014-11-09 02:52:00 Memori al [place] Height 2014-11-09 02:52:00 162.56 cm [facility] Procedure Date / Time Performing Clinician Source Performed Abdominal hysterectomy [facility] [place] Bilateral inguinal hernia Memori al [place] repair Cholecystectomy [facility] [place] Hemorrhoidectomy [facility] Michael n Tonsillectomy and Memorial Lidya nn adenoidectomy Total splenectomy Memorial Lidya nn History of Cholecystectomy Unive rsity of [place] Physicians History of Splenectomy [facility] [place] [facility] History of [facility] [place] [facility] Physicians History of [facility] [place] Hemorrhoidectomy Physicians History of Tonsillectomy [facility] With Adenoidectomy Physicians History of [facility]guinal [facility] [place] Repair Physicians Plan of Care Planned Activity [...] 00:00:00 (1 of 1 - Medical Center [id number] PCV13) [code = PNEUMOCOCCAL 65+ YRS (1 of 1 - [id number] PCV13)] Encounters Start End Encounter Admission Attending Care Care Encounter Source Date/Time Date/Time Type Type Clinicians Facility Department ID 2015-04-10 2015-04-10 Outpatient JORDAN Goodwin [facility] [id number] 12:42:00 23:59:00 Vlad Rich 2015-04-10 2015-04-10 JULIA Covarrubias Neurology [id number] Univers 09:00:00 09:00:00 t; VLAD GOODWIN M.D. ity of [place] M.D. Physici ans 2015-04-09 2015-04-09 Outpatient MALIKA Kenny [id number] 12:48:00 23:59:00 Citlali 00 Eric 2015-03-27 2015-03-27 JULIA Monae [facility] [id number] Univers 11:15:00 11:15:00 t; CITLALI KENNY it y of [place], M.D. [place] M.D. Physici ans 2015-03-06 2015-03-06 JULIA Covarrubias [facility] [id number] Univers 09:00:00 09:00:00 t; VLAD GOODWIN M.D. ity of [place] M.D. Physici ans 2014-12-06 2014-12-06 Outpatient Lyn [facility] [id number] 07:19:00 23:59:00 Anjail 00 Missy 2014-11-08 2014-11-10 Outpatient Jesus [facility] [id number] 16:20:00 12:54:00 Deric Villafana Results Test Description Test Time Test Comments Results Result Comments Source POCT-GLUCOSE METER 2018-08-17 12:30:00 Test Item Value Reference Range Interpretation Comme nts POC-GLUCOSE METER ([facility]) (test 164 mg/dL 70-110 [address] 1538) [facility] 7703 0 POCT-GLUCOSE [id number] 12:29:00 Test Item Value Reference Range Interpretation Comments POC-GLUCOSE METER 83 mg/dL 70-110 TESTED AT [place] [address] ([facility]) (test code = DAVE Borja [facility] [address] 1538) POCT-GLUCOSE [id number] 22:17:00 Test Item Value Reference Range Interpretation Comments POC-GLUCOSE METER 116 mg/dL 70-110 H TESTED AT [place] [address] ([facility]) (test code = DAVE Borja [facility] 1538) [id number] POCT-GLUCOSE [id number] 17:38:00 Test Item Value Reference Range Interpretation Comments POC-GLUCOSE METER 168 mg/dL 70-110 H TESTED AT [place] [address] ([facility]) (test code = DAVE Borja [facility] 1538) [id number] POCT-GLUCOSE [id number] 12:41:00 Test Item Value Reference Range Interpretation Comments POC-GLUCOSE METER 243 mg/dL 70-110 H TESTED AT [place] [address] ([facility]) (test code = DAVE Borja [facility] 1538) [id number] POCT-GLUCOSE [id number] 09:34:00 Test Item Value Reference Range Interpretation Comments POC-GLUCOSE METER 193 mg/dL 70-110 H TESTED AT [place] [address] ([facility]) (test code = DAVE Borja [facility] 1538) [id number] POCT-GLUCOSE [id number] 21:52:00 Test Item Value Reference Range Interpretation Comments POC-GLUCOSE METER 222 mg/dL 70-110 H TESTED AT [place] [address] ([facility]) (test code = DAVE Borja [facility] 1538) [id number] POCT-GLUCOSE [id number] 18:59:00 Test Item Value Reference Range Interpretation Comments POC-GLUCOSE METER 181 mg/dL 70-110 H TESTED AT [place] [address] ([facility]) (test code = DAVE Borja [facility] 1538) [id number] POCT-GLUCOSE [id number] 14:21:00 Test Item Value Reference Range Interpretation Comments POC-GLUCOSE METER 179 mg/dL 70-110 H TESTED AT [facility] 6720 (BEAKER) (test code = DAVE Borja [facility] 1538) [id number] POCT-GLUCOSE [id number] 09:40:00 Test Item Value Reference Range Interpretation Comments POC-GLUCOSE METER 211 mg/dL 70-110 H TESTED AT [facility] 6720 (BEAKER) (test code = DAVE Borja [facility] 1538) [id number] BASIC METABOLIC [id number] 06:49:00 Test Item Value Reference Range Interpretation [...] PATIEN TS. CBC W/PLT COUNT & AUTO [id number] 06:45:00 Test Item Value Reference Range Interpretation [...] (BEAKER) (test code = 2801) URINALYSIS W/ [id number] 04:40:00 Test Item Value Reference Range Interpretation [...] 516) SOURCE(BEAKER) (test code = 2795) POCT-GLUCOSE [id number] 20:47:00 Test Item Value Reference Range Interpretation Comments POC-GLUCOSE METER 273 mg/dL 70-110 H TESTED AT [place] [address] ([facility]) (test code = DAVE Borja [facility] 1538) [id number] POCT-GLUCOSE [id number] 18:20:00 Test Item Value Reference Range Interpretation Comments POC-GLUCOSE METER 305 mg/dL 70-110 H Notified Huong Beverly MD/TESTED ([facility]) (test code = AT [place] [address] IVIS 1538) [facility] 7703 0 POCT-GLUCOSE [id number] 14:27:00 Test Item Value Reference Range Interpretation Comments POC-GLUCOSE METER 215 mg/dL 70-110 H TESTED AT [place] [address] ([facility]) (test code = DAVE Borja [facility] 1538) [id number] POCT-GLUCOSE [id number] 12:10:00 Test Item Value Reference Range Interpretation Comments POC-GLUCOSE METER 278 mg/dL 70-110 H TESTED AT [place] [address] ([facility]) (test code = DAVE Borja [facility] 1538) [id number] POCT-GLUCOSE [id number] 08:12:00 Test Item Value Reference Range Interpretation Comments POC-GLUCOSE METER 225 mg/dL 70-110 H TESTED AT [place] [address] (BEAKER) (test code = [facility] 1538) [id number] POCT-GLUCOSE [id number] 21:36:00 Test Item Value Reference Range Interpretation Comments POC-GLUCOSE METER 272 mg/dL 70-110 H TESTED AT [place] [address] (BEAKER) (test code = [facility] 1538) [id number] POCT-GLUCOSE [id number] 18:06:00 Test Item Value Reference Range Interpretation Comments POC-GLUCOSE METER 264 mg/dL 70-110 H TESTED AT [place] [address] (BEAKER) (test code = [facility] 1538) [id number] POCT-GLUCOSE [id number] 13:33:00 Test Item Value Reference Range Interpretation Comments POC-GLUCOSE METER 225 mg/dL 70-110 H TEST[facility] AT [place] [address] [facility] (test code = [facility] 1538) [id number] POCT-GLUCOSE [id number] 08:16:00 Test Item Value Reference Range Interpretation Comments POC-GLUCOSE METER 217 mg/dL 70-110 H TESTED AT [place] [address] ([facility] (test code = [facility] 1538) [id number] 07:48:00 Test Item Value Reference Range Interpretation Comments MAGNESIUM (BEAKER) (test code = 1.6 mg/dL 1.6-2.6 627) BASIC METABOLIC [id number] 07:48:00 Test Item Value Reference Range Interpretation [...] PATIEN TS. CBC W/PLT COUNT & AUTO [id number] 07:18:00 Test Item Value Reference Range Interpretation [...] PERCENT (BEAKER) (test code = 2801) POCT-GLUCOSE [id number] 23:19:00 Test Item Value Reference Range Interpretation Comments POC-GLUCOSE METER 214 mg/dL 70-110 H TESTED AT [place] [address] [facility] (test code = [facility] 1538) [id number] POCT-GLUCOSE [id number] 16:37:00 Test Item Value Reference Range Interpretation Comments POC-GLUCOSE METER 192 mg/dL 70-110 H TESTED AT [place] [address] ([facility]) (test code = [facility] 1538) [id number] POCT-GLUCOSE [id number] 12:47:00 Test Item Value Reference Range Interpretation Comments POC-GLUCOSE METER 233 mg/dL 70-110 H TESTED AT [place] [address] ([facility]) (test code = [facility] 1538) [id number] BASIC METABOLIC [id number] 11:26:00 Test Item Value Reference Range Interpretation [...] S NOT APPLICABLE FOR DIALYSIS PATIEN TS. [id number] 11:26:00 Test Item Value Reference Range Interpretation Comments MAGNESIUM (BEAKER) (test code = 1.2 mg/dL 1.6-2.6 L 627) CBC W/PLT COUNT & AUTO [id number] 11:17:00 Test Item Value Reference Range Interpretation [...] 3438) Received comment: User comments: Slide comments:POCT-GLUCOSE [id number] 07:57:00 Test Item Value Reference Range Interpretation Comments POC-GLUCOSE METER 165 mg/dL 70-110 H TESTED AT [facility] (BEAKER) (test code = [place] 1538) [address] POCT-GLUCOSE [id number] 22:08:00 Test Item Value Reference Range Interpretation Comments POC-GLUCOSE METER 161 mg/dL 70-110 H TESTED AT [facility] (BEAKER) (test code = [place] 1538) [address] POCT-GLUCOSE [id number] 18:10:00 Test Item Value Reference Range Interpretation Comments POC-GLUCOSE METER 141 mg/dL 70-110 H TESTED AT [facility] 67[facility] (BEAKER) (test code = [place] 1538) [address] [id number] 14:55:00 Test Item Value Reference Range Interpretation Comments MAGNESIUM (BEAKER) 1.2 mg/dL 1.6-2.6 L Specimen slightly (test code = 627) hemolyzed BASIC METABOLIC [id number] 14:55:00 Test Item Value Reference Range Interpretation [...] NOT APPLICABLE FOR DIALYSIS PATIEN TS. POCT-GLUCOSE [id number] 12:01:00 Test Item Value Reference Range Interpretation Comments POC-GLUCOSE METER 163 mg/dL 70-110 H TESTED AT [facility] (BEAKER) (test code = [place] 1538) [address] CBC W/PLT COUNT & AUTO [id number] 11:57:00 Test Item Value Reference Range Interpretation [...] PERCENT (BEAKER) (test code = 2801) POCT-GLUCOSE [id number] 10:18:00 Test Item Value Reference Range Interpretation Comments POC-GLUCOSE METER 155 mg/dL 70-110 H TESTED AT [facility] (BEAKER) (test code = [place] 1538) 1939[address] POCT-GLUCOSE [id number] 08:13:00 Test Item Value Reference Range Interpretation Comments POC-GLUCOSE METER 157 mg/dL 70-110 H TESTED AT [facility] (BEAKER) (test code = [place] 1538) [address] POCT-GLUCOSE [id number] 21:57:00 Test Item Value Reference Range Interpretation Comments POC-GLUCOSE METER 181 mg/dL 70-110 H TESTED AT [facility] (BEAKER) (test code = [place] 1538) [address] POCT-GLUCOSE [id number] 17:39:00 Test Item Value Reference Range Interpretation Comments POC-GLUCOSE METER 232 mg/dL 70-110 H TESTED AT [facility] (BEAKER) (test code = [place] 1538) [address] POCT-GLUCOSE [id number] 12:55:00 Test Item Value Reference Range Interpretation Comments POC-GLUCOSE METER 207 mg/dL 70-110 H TESTED AT [facility] 67 (BEAKER) (test code = [place] 1538) [address] CBC W/PLT COUNT & AUTO [id number] 12:50:00 Test Item Value Reference Range Interpretation [...] 3438) Received comment: User comments: Slide comments:POCT-GLUCOSE [id number] 08:56:00 Test Item Value Reference Range Interpretation Comments POC-GLUCOSE METER 194 mg/dL 70-110 H TESTED AT [facility] (BEAKER) (test code = [place] 1538) [address] [id number] 06:11:00 Test Item Value Reference Range Interpretation Comments MAGNESIUM (BEAKER) (test code = 1.4 mg/dL 1.6-2.6 L 627) BASIC METABOLIC [id number] 06:11:00 Test Item Value Reference Range Interpretation [...] NOT APPLICABLE FOR DIALYSIS PATIEN TS. POCT-GLUCOSE [id number] 21:53:00 Test Item Value Reference Range Interpretation Comments POC-GLUCOSE METER 225 mg/dL 70-110 H TESTED AT [place] [address] ([facility]) (test code = [facility] 1538) [address] POCT-GLUCOSE [id number] 19:30:00 Test Item Value Reference Range Interpretation Comments POC-GLUCOSE METER 225 mg/dL 70-110 H TESTED AT [place] [address] ([facility]) (test code = [facility] 1538) [address] POCT-GLUCOSE [id number] 15:02:00 Test Item Value Reference Range Interpretation Comments POC-GLUCOSE METER 179 mg/dL 70-110 H TESTED AT [place] [address] ([facility]) (test code = [facility] 1538) [address] [id number] 13:04:00 Test Item Value Reference Range Interpretation Comments MAGNESIUM (BEAKER) 1.5 mg/dL 1.6-2.6 L Specimen slightly (test code = 627) hemolyzed Check Serum Magnesium level 2 hours after IV magnesium replacement.Every 8 hours PRN for Creatinine greater than or equal to 2 mg/dL.[id number] 13:04:00 Test Item Value Reference Range Interpretation Comments POTASSIUM (BEAKER) 4.2 meq/L 3.5-5.1 Specimen slightly (test code = 379) hemolyzed Check Serum Magnesium level 2 hours after IV magnesium replacement.Every 8 hours PRN for Creatinine greater than or equal to 2 mg/dL.POCT-GLUCOSE [id number] 08:24:00 Test Item Value Reference Range Interpretation Comments POC-GLUCOSE METER 189 mg/dL 70-110 H TESTED AT [facility] (BEAKER) (test code = [place] 1538) 32[address] CBC W/PLT COUNT & AUTO [id number] 08:03:00 Test Item Value Reference Range Interpretation [...] 3438) Received comment: User comments: Slide comments:CALCIUM, [id number] 05:17:00 Test Item Value Reference Range Interpretation Comments CALCIUM IONIZED (BEAKER) (test 1.26 mmol/L 1.12-1.27 code = 698) PH, BLOOD (BEAKER) (test code = 7.42 1810) [id number] 05:09:00 Test Item Value Reference Range Interpretation Comments PHOSPHORUS (BEAKER) (test code = 2.0 mg/dL 2.3-4.7 L 604) [id number] 05:09:00 Test Item Value Reference Range Interpretation Comments MAGNESIUM (BEAKER) (test code = 1.6 mg/dL 1.6-2.6 627) BASIC METABOLIC [id number] 05:09:00 Test Item Value Reference Range Interpretation [...] NOT APPLICABLE FOR DIALYSIS PATIEN TS. POCT-GLUCOSE [id number] 23:39:00 Test Item Value Reference Range Interpretation Comments POC-GLUCOSE METER 200 mg/dL 70-110 H TESTED AT [facility] (BEAKER) (test code = [place] 1538) [address] [id number] 22:42:00 Test Item Value Reference Range Interpretation Comments MAGNESIUM (BEAKER) (test code = 1.5 mg/dL 1.6-2.6 L 627) POTASSIUM-STAT [id number] 22:24:00 Test Item Value Reference Range Interpretation Comments POTASSIUM (BEAKER) (test code = 3.7 meq/L 3.6-5.5 379) BLOOD GAS, [id number] 22:24:00 Test Item Value Reference Range Interpretation [...] (test code = 1819) 28.0 % CALCIUM, [id number] 22:23:00 Test Item Value Reference Range Interpretation Comments CALCIUM IONIZED (BEAKER) (test 1.21 mmol/L 1.12-1.27 code = 698) PH, BLOOD ([facility]) (test code = 7.44 1810) POCT-GLUCOSE [id number] 17:12:00 Test Item Value Reference Range Interpretation Comments POC-GLUCOSE METER 199 mg/dL 70-110 H TESTED AT [facility] ([facility]) (test code = DAVE Bor[place] [facility] 1538) [address] POCT-GLUCOSE [id number] 12:12:00 Test Item Value Reference Range Interpretation Comments POC-GLUCOSE METER 184 mg/dL 70-110 H TESTED AT [facility] 67[facility] ([facility]) (test code = [place] [facility] 1538) 06[address] POCT-GLUCOSE [id number] 08:49:00 Test Item Value Reference Range Interpretation Comments POC-GLUCOSE METER 195 mg/dL 70-110 H TESTED AT [facility] ([facility]) (test code = [place] [facility] 1538) [address] RAD, CHEST, 1 VIEW, NON [id number] 08:36:00Reason for exam:->s/p CV surgeryShould this be [...] Posadas Verified Date/Time: 08/08/2018 08:36:43 Reading Location: [facility] C013V Neuro Reading Room CBC W/PLT COUNT & AUTO [id number] 05:32:00 Test Item Value Reference Range Interpretation [...] 0-1 PERCENT (BEAKER) (test code = 2801) [id number] 05:14:00 Test Item Value Reference Range Interpretation Comments MAGNESIUM (BEAKER) (test code = 2.1 mg/dL 1.6-2.6 627) BASIC METABOLIC [id number] 05:14:00 Test Item Value Reference Range Interpretation [...] NOT APPLICABLE FOR DIALYSIS PATIEN TS. CALCIUM, [id number] 05:07:00 Test Item Value Reference Range Interpretation Comments CALCIUM IONIZED (BEAKER) (test 1.21 mmol/L 1.12-1.27 code = 698) PH, BLOOD (BEAKER) (test code = 7.42 1810) BLOOD GAS, [id number] 05:06:00 Test Item Value Reference Range Interpretation [...] code = 1819) 28.0 % LACTIC ACID, [id number] 05:01:00 Test Item Value Reference Range Interpretation Comments LACTATE BLOOD ARTERIAL (2) 1.0 mmol/L 0.5-2.2 (BEAKER) (test code = 2874) POCT-GLUCOSE [id number] 23:22:00 Test Item Value Reference Range Interpretation Comments POC-GLUCOSE METER 252 mg/dL 70-110 H TESTED AT [facility] (BEAKER) (test code = [place] 1538) [address] LACTIC ACID, [id number] 19:42:00 Test Item Value Reference Range Interpretation Comments LACTATE BLOOD ARTERIAL (2) 1.6 mmol/L 0.5-2.2 (BEAKER) (test code = 2874) BLOOD GAS, [id number] 19:33:00 Test Item Value Reference Range Interpretation [...] code = 1819) 36.0 % LACTIC ACID, [id number] 16:37:00 Test Item Value Reference Range Interpretation Comments LACTATE BLOOD ARTERIAL (2) 2.6 mmol/L 0.5-2.2 H (BEAKER) (test code = 2874) BLOOD GAS, [id number] 16:21:00 Test Item Value Reference Range Interpretation [...] code = 1819) 36.0 % BLOOD GAS, [id number] 15:01:00 Test Item Value Reference Range Interpretation [...] code = 1819) 36.0 % OXYGEN SATURATION, [id number] 14:58:00 Test Item Value Reference Range Interpretation Comments O2 SATURATION (MEASURED) (BEAKER) 63.8 % (test code = 1455) LACTIC ACID, [id number] 08:57:00 Test Item Value Reference Range Interpretation Comments LACTATE BLOOD ARTERIAL (2) 0.9 mmol/L 0.5-2.2 (BEAKER) (test code = 2874) RAD, CHEST, 1 VIEW, NON [id number] 06:53:00Reason for exam:->s/p CV surgeryShould this be [...] MDReport Verified Date/Time: 08/07/2018 06:53:26 Reading Location: [facility] B1 C013Y CT Body Reading Room Electronically signedby: FREDDY SHELDON MD on 08/07/2018 06:53 [id number] 04:25:00 Test Item Value Reference Range Interpretation Comments PHOSPHORUS (BEAKER) (test code = 2.6 mg/dL 2.3-4.7 604) [id number] 04:25:00 Test Item Value Reference Range Interpretation Comments MAGNESIUM (BEAKER) (test code = 1.9 mg/dL 1.6-2.6 627) BASIC METABOLIC [id number] 04:25:00 Test Item Value Reference Range Interpretation [...] 0-0 (BEAKER) (test code = 413) CALCIUM, [id number] 03:31:00 Test Item Value Reference Range Interpretation Comments CALCIUM IONIZED (BEAKER) (test 1.23 mmol/L 1.12-1.27 code = 698) PH, BLOOD (BEAKER) (test code = 7.40 1810) BLOOD GAS, [id number] 03:19:00 Test Item Value Reference Range Interpretation [...] (BEAKER) (test code = 1819) 32.0 % [id number] 22:08:00 Test Item Value Reference Range Interpretation Comments MAGNESIUM (BEAKER) (test code = 2.2 mg/dL 1.6-2.6 627) BLOOD GAS, [id number] 22:00:00 Test Item Value Reference Range Interpretation [...] (test code = 1819) 32.0 % GLUCOSE-STAT [id number] 22:00:00 Test Item Value Reference Range Interpretation Comments GLUCOSE RANDOM (BEAKER) (test code 187 mg/dL 70-110 H = 652) HGB/HCT (H&H) - STAT [id number] 22:00:00 Test Item Value Reference Range Interpretation Comments HEMOGLOBIN (BEAKER) (test code = 10.3 g/dL 12.0-15.0 L 410) HEMATOCRIT (BEAKER) (test code = 30.0 % 36.0-45.0 L 411) SODIUM NA-STAT [id number] 21:59:00 Test Item Value Reference Range Interpretation Comments SODIUM (BEAKER) (test code = 381) 137 meq/L 135-148 POTASSIUM-STAT [id number] 21:59:00 Test Item Value Reference Range Interpretation Comments POTASSIUM (BEAKER) (test code = 4.0 meq/L 3.6-5.5 379) OXYGEN SATURATION, [id number] 21:59:00 Test Item Value Reference Range Interpretation Comments O2 SATURATION (MEASURED) (BEAKER) 70.7 % (test code = 1455) CALCIUM, [id number] 21:59:00 Test Item Value Reference Range Interpretation Comments CALCIUM IONIZED (BEAKER) (test 1.23 mmol/L 1.12-1.27 code = 698) PH, BLOOD (BEAKER) (test code = 7.41 1810) POCT-GLUCOSE [id number] 17:02:00 Test Item Value Reference Range Interpretation Comments POC-GLUCOSE METER 223 mg/dL 70-110 H TESTED AT [place] [address] ([facility]) (test code = [facility] 1538) [address] POCT-GLUCOSE [id number] 12:13:00 Test Item Value Reference Range Interpretation Comments POC-GLUCOSE METER 109 mg/dL 70-110 TESTED AT [place] [address] ([facility]) (test code = [facility] 1538) 33[address] POCT-GLUCOSE [id number] 10:41:00 Test Item Value Reference Range Interpretation Comments POC-GLUCOSE METER 105 mg/dL 70-110 TESTED AT [place] [address] ([facility]) (test code = [facility] 1538) [address] COMPREHENSIVE METABOLIC [id number] 09:37:00 Test Item Value Reference Range Interpretation [...] APPLICABLE FOR DIALYSIS PATIEN TS. BLOOD GAS, [id number] 08:39:00 Test Item Value Reference Range Interpretation [...] 40.0 % RAD, CHEST, 1 VIEW, NON [id number] 07:24:00Reason for exam:->s/p CV surgeryShould this be [...] [place] Verified Date/Time: 08/06/2018 07:24:21 Reading Location: [facility] Radiology ReadingRoom POCT-GLUCOSE [id number] 06:19:00 Test Item Value Reference Range Interpretation Comments POC-GLUCOSE METER 157 mg/dL 70-110 H TESTED AT [place] [address] (BEAKER) (test code = [facility] [place] [facility] 1538) [address] POCT-GLUCOSE [id number] 06:19:00 Test Item Value Reference Range Interpretation Comments POC-GLUCOSE METER 162 mg/dL 70-110 H [facility] [place] [address] [facility] (test code = [facility] [place] [facility] 1538) [address] POCT-GLUCOSE [id number] 06:18:00 Test Item Value Reference Range Interpretation Comments POC-GLUCOSE METER 120 mg/dL 70-110 H TESTED AT [place] [address] (BEAKER) (test code = [facility] [place] [facility] 1538) [address] [id number] 04:49:00 Test Item Value Reference Range Interpretation [...] than or equal to 2 mg/dL.BASIC METABOLIC [id number] 04:49:00 Test Item Value Reference Range Interpretation [...] than or equal to 2 mg/dL.LACTIC ACID, [id number] 04:44:00 Test Item Value Reference Range Interpretation [...] (BEAKER) (test code = 413) OXYGEN SATURATION, [id number] 04:32:00 Test Item Value Reference Range Interpretation Comments O2 SATURATION (MEASURED) (BEAKER) 69.8 % (test code = 1455) CALCIUM, [id number] 04:28:00 Test Item Value Reference Range Interpretation Comments CALCIUM IONIZED (BEAKER) (test 1.19 mmol/L 1.12-1.27 code = 698) PH, BLOOD (BEAKER) (test code = 7.41 1810) BLOOD GAS, [id number] 04:27:00 Test Item Value Reference Range Interpretation [...] (test code = 1819) 40.0 % POCT-GLUCOSE [id number] 02:20:00 Test Item Value Reference Range Interpretation Comments POC-GLUCOSE METER 165 mg/dL 70-110 H TESTED AT [facility] 6720 (BEAKER) (test code = [place] 1538) [address] POCT-GLUCOSE [id number] 02:20:00 Test Item Value Reference Range Interpretation Comments POC-GLUCOSE METER 180 mg/dL 70-110 H TESTED AT [facility] 6720 (BEAKER) (test code = [place] 1538) [address] POCT-GLUCOSE [id number] 02:20:00 Test Item Value Reference Range Interpretation Comments POC-GLUCOSE METER 191 mg/dL 70-110 H TESTED AT [facility] 6720 (BEAKER) (test code = [place] 153) [address] CALCIUM, [id number] 00:05:00 Test Item Value Reference Range Interpretation Comments CALCIUM IONIZED (BEAKER) (test 1.19 mmol/L 1.12-1.27 code = 698) PH, BLOOD (BEAKER) (test code = 7.37 1810) LACTIC ACID, [id number] 00:05:00 Test Item Value Reference Range Interpretation Comments LACTATE BLOOD 4.1 mmol/L 0.5-2.2 H Specimen sligh tly ARTERIAL (2) (BEAKER) hemoly zed (test code = 2874) BLOOD GAS, [id number] 00:04:00 Test Item Value Reference Range Interpretation [...] (test code = 1819) 40.0 % GLUCOSE-STAT [id number] 00:04:00 Test Item Value Reference Range Interpretation Comments GLUCOSE RANDOM (BEAKER) (test code 173 mg/dL 70-110 H = 652) HGB/HCT (H&H) - STAT [id number] 00:04:00 Test Item Value Reference Range Interpretation Comments HEMOGLOBIN (BEAKER) (test code = 8.6 g/dL 12.0-15.0 L 410) HEMATOCRIT (BEAKER) (test code = 25.0 % 36.0-45.0 L 411) [id number] 00:02:00 Test Item Value Reference Range Interpretation Comments MAGNESIUM (BEAKER) (test code = 2.4 mg/dL 1.6-2.6 627) Check Serum Magnesium level 2 hours after IV magnesium replacement.SODIUM NA- STAT [id number] 00:00:00 Test Item Value Reference Range Interpretation Comments SODIUM (BEAKER) (test code = 381) 137 meq/L 135-148 POTASSIUM-STAT [id number] 00:00:00 Test Item Value Reference Range Interpretation Comments POTASSIUM (BEAKER) (test code = 4.1 meq/L 3.6-5.5 379) POCT-GLUCOSE [id number] 22:43:00 Test Item Value Reference Range Interpretation Comments POC-GLUCOSE METER 182 mg/dL 70-110 H [facility] (test code = [facility] 1538) [address] POCT-GLUCOSE [id number] 22:43:00 Test Item Value Reference Range Interpretation Comments POC-GLUCOSE METER 174 mg/dL 70-110 H TESTED AT [place] [address] ([facility] (test code = [facility] 1538) [address] POCT-GLUCOSE [id number] 22:43:00 Test Item Value Reference Range Interpretation Comments POC-GLUCOSE METER 150 mg/dL 70-110 H TESTED AT [place] [address] ([facility] (test code = [facility] 1538) [address] CALCIUM, [id number] 19:54:00 Test Item Value Reference Range Interpretation Comments CALCIUM IONIZED (BEAKER) (test 1.16 mmol/L 1.12-1.27 code = 698) PH, BLOOD (BEAKER) (test code = 7.39 1810) LACTIC ACID, [id number] 19:40:00 Test Item Value Reference Range Interpretation Comments LACTATE BLOOD ARTERIAL (2) 2.3 mmol/L 0.5-2.2 H (BEAKER) (test code = 2874) [id number] 19:38:00 Test Item Value Reference Range Interpretation Comments MAGNESIUM (BEAKER) (test code = 2.2 mg/dL 1.6-2.6 627) SODIUM NA-STAT [id number] 19:24:00 Test Item Value Reference Range Interpretation Comments SODIUM (BEAKER) (test code = 381) 135 meq/L 135-148 POTASSIUM-STAT [id number] 19:24:00 Test Item Value Reference Range Interpretation Comments POTASSIUM (BEAKER) (test code = 3.7 meq/L 3.6-5.5 379) BLOOD GAS, [id number] 19:24:00 Test Item Value Reference Range Interpretation [...] (test code = 1819) 40.0 % GLUCOSE-STAT [id number] 19:24:00 Test Item Value Reference Range Interpretation Comments GLUCOSE RANDOM (BEAKER) (test code 163 mg/dL 70-110 H = 652) HGB/HCT (H&H) - STAT [id number] 19:24:00 Test Item Value Reference Range Interpretation Comments HEMOGLOBIN (BEAKER) (test code = 9.5 g/dL 12.0-15.0 L 410) HEMATOCRIT (BEAKER) (test code = 28.0 % 36.0-45.0 L 411) OXYGEN SATURATION, [id number] 19:23:00 Test Item Value Reference Range Interpretation Comments O2 SATURATION (MEASURED) (BEAKER) 73.8 % (test code = 1455) POCT-GLUCOSE [id number] 17:19:00 Test Item Value Reference Range Interpretation Comments POC-GLUCOSE METER 128 mg/dL 70-110 H TESTED AT [facility]20 (BEAKER) (test code = [place] 1538) [address] OXYGEN SATURATION, [id number] 17:19:00 Test Item Value Reference Range Interpretation Comments O2 SATURATION (MEASURED) (BEAKER) 60.6 % (test code = 1455) POCT-GLUCOSE [id number] 17:19:00 Test Item Value Reference Range Interpretation Comments POC-GLUCOSE METER 158 mg/dL 70-110 H TESTED AT [facility] ([facility]) [facility] [place] [place] 1538) [address] LACTIC ACID, [id number] 17:01:00 Test Item Value Reference Range Interpretation Comments LACTATE BLOOD ARTERIAL (2) 1.5 mmol/L 0.5-2.2 (BEAKER) (test code = 2874) HEMOGLOBIN AND [id number] 16:49:00 Test Item Value Reference Range Interpretation Comments HEMOGLOBIN (BEAKER) (test code = 8.8 GM/DL 11.2-15.7 L 410) HEMATOCRIT (BEAKER) (test code = 26.5 % 34.1-44.9 L 411) POCT-GLUCOSE [id number] 16:31:00 Test Item Value Reference Range Interpretation Comments POC-GLUCOSE METER 191 mg/dL 70-110 H TESTED AT [facility] ([facility]) (test code = [facility] [place] 1538) [address] BLOOD GAS, [id number] 16:26:00 Test Item Value Reference Range Interpretation [...] (BEAKER) (test code = 1819) 40.0 % [id number] 13:48:00 Test Item Value Reference Range Interpretation Comments MAGNESIUM (BEAKER) 2.2 mg/dL 1.6-2.6 Specimen slightly (test code = 627) hemolyzed [id number] 13:48:00 Test Item Value Reference Range Interpretation Comments PHOSPHORUS (BEAKER) 4.2 mg/dL 2.3-4.7 Specimen slightly (test code = 604) hemolyzed BASIC METABOLIC [id number] 13:48:00 Test Item Value Reference Range Interpretation [...] APPLICABLE FOR DIALYSIS PATIEN TS. LACTIC ACID, [id number] 13:42:00 Test Item Value Reference Range Interpretation Comments LACTATE BLOOD 1.1 mmol/L 0.5-2.2 Specimen sligh tly ARTERIAL (2) (BEAKER) hemoly zed (test code = 2874) RAD, CHEST, 1 VIEW, NON [id number] 13:35:00Reason for exam:->POST OPShould this be performed [...] port Verified Date/Time: 08/05/2018 13:35:26 Reading Location: [facility] Radiology Reading Room CBC W/PLT COUNT & AUTO [id number] 13:33:00 Test Item Value Reference Range Interpretation [...] (BEAKER) (test code = 2801) BLOOD GAS, [id number] 13:27:00 Test Item Value Reference Range Interpretation [...] code = 1819) 60.0 % OXYGEN SATURATION, [id number] 13:21:00 Test Item Value Reference Range Interpretation Comments O2 SATURATION (MEASURED) (BEAKER) 64.2 % (test code = 1455) [id number] 12:22:00 Test Item Value Reference Range Interpretation Comments FIBRINOGEN LEVEL (BEAKER) (test 225 mg/dl 225-434 code = 658) [id number] 12:22:00 Test Item Value Reference Range Interpretation Comments PARTIAL THROMBOPLASTIN TIME 33.4 seconds 22.5-36.0 (BEAKER) (test code = 760) PROTHROMBIN [id number] 12:21:00 Test Item Value Reference Range Interpretation [...] 0-0 H (BEAKER) (test code = 413) [id number] 11:30:00 Test Item Value Reference Range Interpretation Comments ACTIVATED CLOTTING TIME 109 sec TEST ED AT [place] [address] (BEAKER) (test code = [place] [address]) [id number] 11:30:00 Test Item Value Reference Range Interpretation Comments ACTIVATED CLOTTING TIME 433 sec TEST ED AT [place] [address] ([facility]) (test code = [place] [address]) [address] [id number] 11:30:00 Test Item Value Reference Range Interpretation Comments ACTIVATED CLOTTING TIME 532 sec TEST ED AT [place] [address] ([facility]) (test code = D[facility] [place] [facility]) [id number] [id number] 11:30:00 Test Item Value Reference Range Interpretation Comments ACTIVATED CLOTTING TIME 648 sec TEST ED AT [place] [address] ([facility]) (test code = DAVE [place] [facility]) [id number] [id number] 11:30:00 Test Item Value Reference Range Interpretation Comments ACTIVATED CLOTTING TIME 483 sec TEST ED AT [place] [address] ([facility]) (test code = [place] [address]) [id number] 11:30:00 Test Item Value Reference Range Interpretation Comments ACTIVATED CLOTTING TIME 395 sec TEST ED AT [place] [address] ([facility]) (test code = [place] [address]) [address] CALCIUM, [id number] 11:21:00 Test Item Value Reference Range Interpretation Comments CALCIUM IONIZED (BEAKER) (test 1.31 mmol/L 1.12-1.27 H code = 698) PH, BLOOD (BEAKER) (test code = 7.38 1810) BLOOD GAS, [id number] 11:21:00 Test Item Value Reference Range Interpretation [...] code = 1819) 100.0 % SODIUM NA-STAT [id number] 11:21:00 Test Item Value Reference Range Interpretation Comments SODIUM (BEAKER) (test code = 381) 134 meq/L 135-148 L GLUCOSE-STAT [id number] 11:21:00 Test Item Value Reference Range Interpretation Comments GLUCOSE RANDOM (BEAKER) (test code 185 mg/dL 70-110 H = 652) HGB/HCT (H&H) - STAT [id number] 11:21:00 Test Item Value Reference Range Interpretation Comments HEMOGLOBIN (BEAKER) (test code = 8.6 g/dL 12.0-15.0 L 410) HEMATOCRIT (BEAKER) (test code = 25.0 % 36.0-45.0 L 411) POTASSIUM-STAT [id number] 11:20:00 Test Item Value Reference Range Interpretation Comments POTASSIUM (BEAKER) (test code = 3.8 meq/L 3.6-5.5 379) POTASSIUM-STAT [id number] 10:50:00 Test Item Value Reference Range Interpretation Comments POTASSIUM (BEAKER) (test code = 4.7 meq/L 3.6-5.5 379) BLOOD GAS, [id number] 10:50:00 Test Item Value Reference Range Interpretation [...] code = 1819) 65.0 % SODIUM NA-STAT [id number] 10:50:00 Test Item Value Reference Range Interpretation Comments SODIUM (BEAKER) (test code = 381) 132 meq/L 135-148 L GLUCOSE-STAT [id number] 10:50:00 Test Item Value Reference Range Interpretation Comments GLUCOSE RANDOM (BEAKER) (test code 185 mg/dL 70-110 H = 652) HGB/HCT (H&H) - STAT [id number] 10:50:00 Test Item Value Reference Range Interpretation Comments HEMOGLOBIN (BEAKER) (test code = 9.2 g/dL 12.0-15.0 L 410) HEMATOCRIT (BEAKER) (test code = 27.0 % 36.0-45.0 L 411) POTASSIUM-STAT [id number] 10:23:00 Test Item Value Reference Range Interpretation Comments POTASSIUM (BEAKER) (test code = 5.2 meq/L 3.6-5.5 379) BLOOD GAS, [id number] 10:23:00 Test Item Value Reference Range Interpretation [...] (test code = 1819) 65.0 % GLUCOSE-STAT [id number] 10:23:00 Test Item Value Reference Range Interpretation Comments GLUCOSE RANDOM (BEAKER) (test code 170 mg/dL 70-110 H = 652) HGB/HCT (H&H) - STAT [id number] 10:23:00 Test Item Value Reference Range Interpretation Comments HEMOGLOBIN (BEAKER) (test code = 8.9 g/dL 12.0-15.0 L 410) HEMATOCRIT (BEAKER) (test code = 26.0 % 36.0-45.0 L 411) SODIUM NA-STAT [id number] 10:23:00 Test Item Value Reference Range Interpretation Comments SODIUM (BEAKER) (test code = 381) 132 meq/L 135-148 L BLOOD GAS, [id number] 09:58:00 Test Item Value Reference Range Interpretation [...] code = 1819) 60.0 % SODIUM NA-STAT [id number] 09:58:00 Test Item Value Reference Range Interpretation Comments SODIUM (BEAKER) (test code = 381) 132 meq/L 135-148 L GLUCOSE-STAT [id number] 09:58:00 Test Item Value Reference Range Interpretation Comments GLUCOSE RANDOM (BEAKER) (test code 160 mg/dL 70-110 H = 652) HGB/HCT (H&H) - STAT [id number] 09:58:00 Test Item Value Reference Range Interpretation Comments HEMOGLOBIN (BEAKER) (test code = 8.9 g/dL 12.0-15.0 L 410) HEMATOCRIT (BEAKER) (test code = 26.0 % 36.0-45.0 L 411) POTASSIUM-STAT [id number] 09:56:00 Test Item Value Reference Range Interpretation Comments POTASSIUM (BEAKER) (test code = 4.8 meq/L 3.6-5.5 379) BLOOD GAS, [id number] 09:29:00 Test Item Value Reference Range Interpretation [...] code = 1819) 80.0 % SODIUM NA-STAT [id number] 09:29:00 Test Item Value Reference Range Interpretation Comments SODIUM (BEAKER) (test code = 381) 131 meq/L 135-148 L GLUCOSE-STAT [id number] 09:29:00 Test Item Value Reference Range Interpretation Comments GLUCOSE RANDOM (BEAKER) (test code 180 mg/dL 70-110 H = 652) HGB/HCT (H&H) - STAT [id number] 09:29:00 Test Item Value Reference Range Interpretation Comments HEMOGLOBIN (BEAKER) (test code = 7.1 g/dL 12.0-15.0 L 410) HEMATOCRIT (BEAKER) (test code = 21.0 % 36.0-45.0 L 411) POTASSIUM-STAT [id number] 09:28:00 Test Item Value Reference Range Interpretation Comments POTASSIUM (BEAKER) (test code = 5.1 meq/L 3.6-5.5 379) CALCIUM, [id number] 08:02:00 Test Item Value Reference Range Interpretation Comments CALCIUM IONIZED (BEAKER) (test 1.14 mmol/L 1.12-1.27 code = 698) PH, BLOOD (BEAKER) (test code = 7.54 1810) BLOOD GAS, [id number] 08:02:00 Test Item Value Reference Range Interpretation [...] 21-29 = 388) BASE EXCESS ARTERIAL (BEAKER) 2.3 mmol/L -2.0-3.0 (test code = 387) PATIENT TEMPERATURE (BEAKER) (test 36.0 C code = 1818) FIO2 (BEAKER) (test code = 1819) 100.0 % SODIUM NA-STAT [id number] 08:02:00 Test Item Value Reference Range Interpretation Comments SODIUM (BEAKER) (test code = 381) 134 meq/L 135-148 L HGB/HCT (H&H) - STAT [id number] 08:02:00 Test Item Value Reference Range Interpretation Comments HEMOGLOBIN (BEAKER) (test code = 11.2 g/dL 12.0-15.0 L 410) HEMATOCRIT (BEAKER) (test code = 33.0 % 36.0-45.0 L 411) GLUCOSE-STAT [id number] 08:01:00 Test Item Value Reference Range Interpretation Comments GLUCOSE RANDOM (BEAKER) (test code 106 mg/dL 70-110 = 652) POTASSIUM-STAT [id number] 08:01:00 Test Item Value Reference Range Interpretation Comments POTASSIUM (BEAKER) (test code = 3.8 meq/L 3.6-5.5 379) POCT-GLUCOSE [id number] 05:58:00 Test Item Value Reference Range Interpretation Comments POC-GLUCOSE METER 114 mg/dL 70-110 H TESTED AT [facility] 6720 (BEAKER) (test code = [place] 1538) [address] TISSUE [id number] 15:29:00Surgical Pathology Report Case: [id number] Authorizing Provider: Sabas Aquino, Collected: 07/28/2018 1410 Ordering Location: [facility] Received: 07/28/2018 1614 PERIOPERATIVE SERVICES Pathologist: Alvaro Chavez MD Specimen: Plaque, Carotid PART A RIGHT CAROTIDPLAQUE, ENDARTERECTOMY:CALCIFIC ATHEROSCLEROSIS. Signing Pathologist Direct Phone Line: [phone] signed by Alvaro Chavez MD on 08/02/2018 at 3:29 [id number], [id number] stenosis, rightRight carotidA. Received in formalin labeled "carotid" a 3 x 1.3 x 1 cm foreman-pink vascular segment. Foreman- yellow and calcified plaque is identified. Tank Car Loader sections are submitted in cassette A1 following decalcification. CG/pl Performed.POCT-GLUCOSE METER 2018-07-31 16:25:00 Test Item Value Reference Range Interpretation Comments POC-GLUCOSE METER 173 mg/dL 70-110 H TESTED AT [facility] 67 (BEAKER) (test code = DAVE Borja [facility] 1538) [address] POCT-GLUCOSE [id number] 12:08:00 Test Item Value Reference Range Interpretation Comments POC-GLUCOSE METER 194 mg/dL 70-110 H TESTED AT [place] [address] (BEAKER) (test code = DAVE Borja [facility] 1538) [address] POCT-GLUCOSE [id number] 07:15:00 Test Item Value Reference Range Interpretation Comments POC-GLUCOSE METER 228 mg/dL 70-110 H TESTED AT [place] [address] (BEAKER) (test code = DAVE Borja [facility] 1538) [address] CBC W/PLT COUNT & AUTO [id number] 06:14:00 Test Item Value Reference Range Interpretation [...] PERCENT (BEAKER) (test code = 2801) CALCIUM, [id number] 05:52:00 Test Item Value Reference Range Interpretation Comments CALCIUM IONIZED (BEAKER) (test 1.24 mmol/L 1.12-1.27 code = 698) PH, BLOOD (BEAKER) (test code = 7.40 1810) POCT-GLUCOSE [id number] 22:03:00 Test Item Value Reference Range Interpretation Comments POC-GLUCOSE METER 217 mg/dL 70-110 H TESTED AT [facility] 6720 (BEAKER) (test code = [facility] 1538) [address] POCT-GLUCOSE [id number] 17:53:00 Test Item Value Reference Range Interpretation Comments POC-GLUCOSE METER 252 mg/dL 70-110 H TESTED AT [place] [address] (BEAKER) (test code = [facility] 1538) [address] RAD, ABDOMEN/KUB, 1 VIEW [id number] 15:31:00Reason for exam:->nauseaFINAL REPORT EXAM: Frontal chest [...] MDReport Verified Date/Time: 07/30/2018 15:31:29 Reading Location: [facility] Women Electronically signed by: GURMEET VELAZCO on 03:31 PMPOCT-GLUCOSE [id number] 12:34:00 Test Item Value Reference Range Interpretation Comments POC-GLUCOSE METER 244 mg/dL 70-110 H TESTED AT [facility] 67 (BEAKER) (test code = [facility] 1538) [address] POCT-GLUCOSE [id number] 09:16:00 Test Item Value Reference Range Interpretation Comments POC-GLUCOSE METER 237 mg/dL 70-110 H [facility] AT [place] [address] [facility] (test code = [facility] 1538) [address] CALCIUM, [id number] 06:24:00 Test Item Value Reference Range Interpretation Comments CALCIUM IONIZED (BEAKER) (test 1.22 mmol/L 1.12-1.27 code = 698) PH, BLOOD (BEAKER) (test code = 7.39 1810) [id number] 05:34:00 Test Item Value Reference Range Interpretation Comments PHOSPHORUS (BEAKER) (test code = 2.4 mg/dL 2.3-4.7 604) [id number] 05:34:00 Test Item Value Reference Range Interpretation Comments MAGNESIUM (BEAKER) (test code = 1.5 mg/dL 1.6-2.6 L 627) BASIC METABOLIC [id number] 05:34:00 Test Item Value Reference Range Interpretation [...] PATIEN TS. CBC W/PLT COUNT & AUTO [id number] 05:27:00 Test Item Value Reference Range Interpretation [...] 417) IMMATURE GRANULOCYTES-RELATIVE 1 % 0-1 PERCENT ([facility]) (test code = 2801) POCT-GLUCOSE [id number] 21:42:00 Test Item Value Reference Range Interpretation Comments POC-GLUCOSE METER 186 mg/dL 70-110 H TESTED AT [place] [address] ([facility]) [facility] 1538[facility] [address] POCT-GLUCOSE [id number] 18:04:00 Test Item Value Reference Range Interpretation Comments POC-GLUCOSE METER 162 mg/dL 70-110 H TESTED AT [place] [address] ([facility]) (test code = [facility] 1538) [address] POCT-GLUCOSE [id number] 13:39:00 Test Item Value Reference Range Interpretation Comments POC-GLUCOSE METER 109 mg/dL 70-110 TESTED AT [place] [address] ([facility]) (test code = [facility] Huong [facility] 1538) [address] POCT-GLUCOSE [id number] 13:39:00 Test Item Value Reference Range Interpretation Comments POC-GLUCOSE METER 169 mg/dL 70-110 H TESTED AT [place] [address] ([facility]) (test code = [facility] Huong [facility] 1538) [address] POCT-GLUCOSE [id number] 13:39:00 Test Item Value Reference Range Interpretation Comments POC-GLUCOSE METER 202 mg/dL 70-110 H TESTED AT [place] [address] ([facility]) (test code = [facility] 1538) [address] POCT-GLUCOSE [id number] 12:28:00 Test Item Value Reference Range Interpretation Comments POC-GLUCOSE METER 175 mg/dL 70-110 H TESTED AT [place] [address] ([facility]) (test code = [facility] 1538) [address] POCT-GLUCOSE [id number] 10:45:00 Test Item Value Reference Range Interpretation Comments POC-GLUCOSE METER 181 mg/dL 70-110 H TESTED AT [facility] 6720 (BEAKER) (test code = DAVE Borja [facility] 1538) [address] POCT-GLUCOSE [id number] 09:08:00 Test Item Value Reference Range Interpretation Comments POC-GLUCOSE METER 90 mg/dL 70-110 TEST[facility] AT [facility] 67[facility] (test code = DAVE Borja [facility] [address] 1538) POCT-GLUCOSE [id number] 09:08:00 Test Item Value Reference Range Interpretation Comments POC-GLUCOSE METER 78 mg/dL 70-110 TESTED AT [facility] 6720 ([facility]) (test code = DAVE Borja [facility] [address] 1538) RAD, CHEST, 1 VIEW, NON [id number] 07:37:00Reason for exam:->POST OPShould this be performed at the bedside?->YesFINAL REPORT CLINICAL HISTORY: POST OP TECHNIQUE: 1 view of the chest. COMPARISON: 07/28/2018 IMPRESSION: There are increased bilateral airspace opacities with suspected trace bilateral pleural effusions. The cardiomediastinal silhouette is magnified by technique. Signed: Annamaria Vargas Verified Date/Time: 07/29/2018 07:37:56 Reading Location: [facility] Radiology Reading Room PHOSPHORUS 2018-07-29 07:21:00 Test Item Value Reference Range Interpretation Comments PHOSPHORUS (BEAKER) (test code = 2.9 mg/dL 2.3-4.7 604) [id number] 07:21:00 Test Item Value Reference Range Interpretation Comments MAGNESIUM (BEAKER) (test code = 2.0 mg/dL 1.6-2.6 627) BASIC METABOLIC [id number] 07:21:00 Test Item Value Reference Range Interpretation [...] APPLICABLE FOR DIALYSIS PATIEN TS. BLOOD GAS, [id number] 06:00:00 Test Item Value Reference Range Interpretation [...] 44.0 % CBC W/PLT COUNT & AUTO [id number] 04:44:00 Test Item Value Reference Range Interpretation [...] (BEAKER) (test code = 2801) BLOOD GAS, [id number] 04:28:00 Test Item Value Reference Range Interpretation [...] (test code = 1819) 36.0 % CALCIUM, [id number] 04:27:00 Test Item Value Reference Range Interpretation Comments CALCIUM IONIZED (BEAKER) (test 1.22 mmol/L 1.12-1.27 code = 698) PH, BLOOD (BEAKER) (test code = 7.41 1810) POCT-GLUCOSE [id number] 01:35:00 Test Item Value Reference Range Interpretation Comments POC-GLUCOSE METER 220 mg/dL 70-110 H TESTED AT [place] [address] ([facility]) (test code = DAVE Borja [facility] 1538) [address] POCT-GLUCOSE [id number] 01:35:00 Test Item Value Reference Range Interpretation Comments POC-GLUCOSE METER 258 mg/dL 70-110 H TESTED AT [place] [address] ([facility]) (test code = DAVE Bor[place] 1538) [address] POCT-GLUCOSE [id number] 01:35:00 Test Item Value Reference Range Interpretation Comments POC-GLUCOSE METER 263 mg/dL 70-110 H TESTED AT [place] [address] ([facility]) (test code = DAVE Borja [facility] 1538) [address] HGB/HCT (H&H) - STAT [id number] 01:24:00 Test Item Value Reference Range Interpretation Comments HEMOGLOBIN (BEAKER) (test code = 11.8 g/dL 12.0-15.0 L 410) HEMATOCRIT (BEAKER) (test code = 35.0 % 36.0-45.0 L 411) BLOOD GAS, [id number] 01:24:00 Test Item Value Reference Range Interpretation [...] code = 1819) 36.0 % SODIUM NA-STAT [id number] 01:24:00 Test Item Value Reference Range Interpretation Comments SODIUM (BEAKER) (test code = 381) 134 meq/L 135-148 L GLUCOSE-STAT [id number] 01:24:00 Test Item Value Reference Range Interpretation Comments GLUCOSE RANDOM (BEAKER) (test code 195 mg/dL 70-110 H = 652) POTASSIUM-STAT [id number] 01:22:00 Test Item Value Reference Range Interpretation Comments POTASSIUM (BEAKER) (test code = 4.9 meq/L 3.6-5.5 379) POCT-GLUCOSE [id number] 22:27:00 Test Item Value Reference Range Interpretation Comments POC-GLUCOSE METER 235 mg/dL 70-110 H TESTED AT [facility] 6720 (BEAKER) (test code = DAVE Bor[place] 1538) [address] LACTIC ACID, [id number] 21:01:00 Test Item Value Reference Range Interpretation Comments LACTATE BLOOD 0.9 mmol/L 0.5-2.2 Specimen sligh tly ARTERIAL (2) (BEAKER) hemoly zed (test code = 2874) [id number] 20:58:00 Test Item Value Reference Range Interpretation Comments MAGNESIUM (BEAKER) 2.4 mg/dL 1.6-2.6 Specimen slightly (test code = 627) hemolyzed BLOOD GAS, [id number] 20:23:00 Test Item Value Reference Range Interpretation Comments PH ARTERIAL (BEAKER) (test code = 7.35 7.35-7.45 383) PCO2 ARTERIAL (BEAKER) (test code 42 mmHg 35-45 = 384) PO2 ARTERIAL (BEAKER) (test code 89 mmHg 80-90 = 385) O2 SATURATION ARTERIAL (BEAKER) 96.7 % 96.0-97.0 (test code = 386) HCO3 ARTERIAL (BEAKER) (test code 23 mmol/L - = 388) BASE EXCESS ARTERIAL (BEAKER) -2.9 mmol/L -2.0-3.0 L (test code = 387) PATIENT TEMPERATURE (BEAKER) 36.4 C (test code = 1818) FIO2 (BEAKER) (test code = 1819) 26.0 % GLUCOSE-STAT [id number] 20:23:00 Test Item Value Reference Range Interpretation Comments GLUCOSE RANDOM (BEAKER) (test code 223 mg/dL 70-110 H = 652) SODIUM NA-STAT [id number] 20:21:00 Test Item Value Reference Range Interpretation Comments SODIUM (BEAKER) (test code = 381) 136 meq/L 135-148 POTASSIUM-STAT [id number] 20:21:00 Test Item Value Reference Range Interpretation Comments POTASSIUM (BEAKER) (test code = 4.1 meq/L 3.6-5.5 379) HGB/HCT (H&H) - STAT [id number] 20:21:00 Test Item Value Reference Range Interpretation Comments HEMOGLOBIN (BEAKER) (test code = 12.2 g/dL 12.0-15.0 410) HEMATOCRIT (BEAKER) (test code = 36.0 % 36.0-45.0 411) CALCIUM, [id number] 20:21:00 Test Item Value Reference Range Interpretation Comments CALCIUM IONIZED (BEAKER) (test 1.25 mmol/L 1.12-1.27 code = 698) PH, BLOOD (BEAKER) (test code = 7.34 1810) RAD, CHEST, 1 VIEW, NON [id number] 18:36:00Reason for exam:->POST OPShould this be performed [...] MDReport Verified Date/Time: 07/28/2018 18:36:16 Reading Location: [facility] [id number] Consult Reading Room POCT-GLUCOSE [id number] 16:38:00 Test Item Value Reference Range Interpretation Comments POC-GLUCOSE METER 215 mg/dL 70-110 H TESTED AT [facility] 6720 (BEAKER) (test code = [place] 1538) [address] [id number] 15:42:00 Test Item Value Reference Range Interpretation Comments PHOSPHORUS (BEAKER) (test code = 3.5 mg/dL 2.3-4.7 604) [id number] 15:42:00 Test Item Value Reference Range Interpretation Comments MAGNESIUM (BEAKER) (test code = 1.3 mg/dL 1.6-2.6 L 627) BASIC METABOLIC [id number] 15:42:00 Test Item Value Reference Range Interpretation [...] APPLICABLE FOR DIALYSIS PATIEN TS. LACTIC ACID, [id number] 15:38:00 Test Item Value Reference Range Interpretation Comments LACTATE BLOOD 1.3 mmol/L 0.5-2.2 Specimen sligh tly ARTERIAL (2) (BEAKER) hemoly zed (test code = 2874) [id number] 15:36:00 Test Item Value Reference Range Interpretation [...] PERCENT (BEAKER) (test code = 2801) GLUCOSE-STAT [id number] 15:33:00 Test Item Value Reference Range Interpretation Comments GLUCOSE RANDOM (BEAKER) (test code 231 mg/dL 70-110 H = 652) BLOOD GAS, [id number] 15:31:00 Test Item Value Reference Range Interpretation [...] code = 1819) 44.0 % SODIUM NA-STAT [id number] 15:31:00 Test Item Value Reference Range Interpretation Comments SODIUM (BEAKER) (test code = 381) 135 meq/L 135-148 POTASSIUM-STAT [id number] 15:31:00 Test Item Value Reference Range Interpretation Comments POTASSIUM (BEAKER) (test code = 4.0 meq/L 3.6-5.5 379) HGB/HCT (H&H) - STAT [id number] 15:31:00 Test Item Value Reference Range Interpretation Comments HEMOGLOBIN (BEAKER) (test code = 12.2 g/dL 12.0-15.0 410) HEMATOCRIT (BEAKER) (test code = 36.0 % 36.0-45.0 411) [id number] 08:00:00 Test Item Value Reference Range Interpretation Comments MAGNESIUM (BEAKER) (test code = 1.9 mg/dL 1.6-2.6 627) BASIC METABOLIC [id number] 08:00:00 Test Item Value Reference Range Interpretation [...] PATIEN TS. CBC W/PLT COUNT & AUTO [id number] 07:23:00 Test Item Value Reference Range Interpretation [...] PERCENT (BEAKER) (test code = 2801) HEMOGLOBIN [id number] 23:04:00 Test Item Value Reference Range Interpretation Comments HEMOGLOBIN A1C (BEAKER) (test code = 7.7 % 4.3-6.1 H 368) POCT-GLUCOSE [id number] 23:03:00 Test Item Value Reference Range Interpretation Comments POC-GLUCOSE METER 261 mg/dL 70-110 H TESTED AT [facility] 6720 (BEAKER) (test code = [place] 1538) [address] COMPREHENSIVE METABOLIC [id number] 21:58:00 Test Item Value Reference Range Interpretation [...] PATIEN TS. CBC W/PLT COUNT & AUTO [id number] 21:33:00 Test Item Value Reference Range Interpretation [...] 0-1 PERCENT (BEAKER) (test code = 2801) [id number] 06:54:0011.1[facility] QykcvnpCAINKFVWTB9143-58-87 06:54:00 43.8[facility] JztckhtGTGWQGAXKA8257-06-81 06:54:0014.2[facility]annHEMATOLOGY 2014-11-09 06:54:004.93[facility] ZwwyqvjVJVTYC7507-78-47 06:54:0028[facility] LqndkgvTTQIVV2307-01-05 06:54:74261Zvirbgho ZnjliasZQZAAE1060-72-61 06:54:0050 [facility] FdsizpeXDKYQA7425-79-26 06:54:22003Bicbnypf GwkjgtqWLNRQQ7499-52-36 06:54:004.22[facility] YcvbwhlJSHWUB9930-75-68 06:54:26990Hmkfbgxp HermannSPECIAL [id number] 06:54:009.1[facility] HermannTHYROID [id number] 06:54:00 1.850[facility] HermannCHEM [id number] 06:54:0056[facility] HermannCHEM PANEL 2014-11-09 06:54:000.3[facility] HermannCHEM [id number] 06:54:0037[facility] HermannCHEM [id number] 06:54:0025[facility] HermannCHEM [id number] 06:54:0071[facility] HermannCHEM [id number] 06:54:0025[facility] HermannCHEM [id number] 06:54:008.8[facility] HermannCHEM [id number] 06:54:006.8 [facility]annCHEM [id number] 06:54:003.0[facility] HermannCHEM PANEL 2014-11-09 06:54:94862Cppbitnx HermannCHEM [id number] 06:54:82581Akloeadq HermannCHEM OCRIQ4711-40-27 06:54:003.6[facility] HermannCHEM [id number] 06:54:0025[facility] HermannCHEM [id number] 06:54:001.0[facility] HermannCHEM [id number] 06:54:21782Vkyvlmpv HermannCHEM [id number] 06:54:000.8 [facility]annCHEM [id number] 06:54:0010.6[facility] HermannCHEM PANEL 2014-11-09 06:54:0025[facility] HermannCHEM [id number] 06:54:003.8[facility] SaiekvkWMXAXJOXQU3815-74-78 06:54:003.5[facility] JophrelRGDZAOJSPY2978-28-49 06:54:001.5[facility] YvufyhwNJYPNJWHIA6050-00-81 06:54:000.2[facility] [place] FHFWUWSYII3020-96-30 06:54:000.1[facility] TontczkIOJVVXWSYR8676-67-31 06:54:005.9 [facility] FfsacniJNTJIPMBTN3322-27-79 06:54:0031.4[facility] HermannHEMATOLOGY 2014-11-09 06:54:000.7[facility] HacaphnDQHNXTUPIM7437-41-41 06:54:0013.2[facility] OvecnyrLQFKWHTWYD3193-18-88 06:54:0053.0[facility] NfwevahSSZYRHATLD4638-79-50 06:54:001.7[facility] KfiefafJTXAZPMVNW9429-29-86 06:54:009.5[facility] [place] NHZRDBUFAH2591-00-43 06:54:67448Egtkwlek FgtumiiXXPKDDAMJU5588-05-96 06:54:00 32.5[facility] SewmaahSOWVORJMMU5742-99-92 06:54:0014.9[facility]annHE[facility]OLOGY 2014-11-09 06:54:0088.9[facility] WzfabpjVMVWYJSTFK3632-38-91 06:54:00 Test Item Value Reference Range Interpretation Comments MCH (test code = MCH) 28.9 pg 27.0-31.0 [facility]ARD[facility] OMGKMJW7056-95-63 21:20:0075[facility]ann[facility]ARD[facility]AC AKRKXVZ1112-74-80 21:20:000.05[facility] BLXJNWP7947-83-48 21:20:00 1.0[facility]annCARD[facility]AC FCEVNPX8891-01-50 21:20:001.3[facility]annCHEM JJREJ5830-80-28 21:20:0042[facility]annCHEM DXCPM3805-89-03 21:20:001.0 [facility]annCHE[facility] AFHAC1378-08-63 21:20:0030[facility]annCHEM PANEL 2014-11-08 21:20:47716Ockgpqkn HermannCHEM XSTJI6280-26-59 21:20:0023[facility]annCHEM TMKSC6008-12-41 21:20:91579Yiciezkc HermannCHEM PDBJH8808-96-33 21:20:47678Urbvzeym HermannCHEM LOBQC3361-50-01 21:20:004.6[facility]annCHEM OIKNH1509-26-72 21:20:009.6[facility]annCHEM FYNAW6095-66-82 21:20:0013.6 [facility] LxqrmzrGKLRLAULPY6903-82-50 21:20:00 Test Item Value Reference Range Interpretation Comments PTT (test code = PTT) 24.4 s 22.9-35.8 [facility] HeoyyjkQBQMXXRWZL5583-58-41 21:20:000.93[facility] 2014-11-08 21:20:00 Test Item Value Reference Range Interpretation Comments PT (test code = PT) 12.8 s 12.0-14.7 [facility] VecbmfsDXWLLHGADI9571-99-37 21:20:00 Test Item Value Reference Range Interpretation Comments MCH (test code = MCH) 28.9 pg 27.0-31.0 [facility] KlpvkaaYPSZQIHSNX1466-51-57 21:20:0088.6[facility]annHEMATOLOGY 2014-11-08 21:20:0046.4[facility] BfvscskSWZZUHVFVN2826-38-51 21:20:0032.7[facility] PlfmvtzXCVYHKNSID7083-97-45 21:20:0015.2[facility] AngzbumTCVWTXZWUI7133-46-27 21:20:61238Mebxzhlq OarzzqdHMYNDCGVMJ7551-04-15 21:20:0014.7[facility] ILRCMVHRTR0247-66-68 21:20:009.2[facility] PwirceqJGUQZZHYVA7371-32-94 21:20:00 13.3[facility] BlwnokoNYHCFVECNF5240-35-11 21:20:005.24[facility]annHEMATOLOGY 2014-11-08 21:20:001.6[facility] KxgsyznVCHIEQPKPM5524-28-11 21:20:002.1[facility] FuqdhlyYGJETPTEQM2687-74-59 21:20:009.4[facility] WhpnmdvHMFVSFDSSK0608-28-08 21:20:000.8[facility] PlpupkzHTPHTCRKLZ1947-67-26 21:20:000.8[facility] AVDDOPIYHA1777-46-21 21:20:000.1[facility] ExvtdgePLKERMPKZX3549-22-86 21:20:000.1 [facility] ZmuxpioJBQGJFURLI9430-49-91 21:20:0012.0[facility]annHEMATOLOGY 2014-11-08 21:20:0015.7[facility] KzclvklFSBVIDUTOE2719-79-67 21:20:0070.7[facility] [place]
--- NOTE | 2020-06-13 11:50 | RAD REPORT ---
EXAM DESCRIPTION: Gio Single View06/13/2020 11:41 am CLINICAL HISTORY: Syncope COMPARISON: May 2020 FINDINGS: Mild bilateral pulmonary opacities. Heart is mildly enlarged. Postsurgical changes involv e chest A battery overlies the left upper hemithorax IMPRESSION: Mild bilateral pulmonary opacities may indicate mild pulmonary edema
[2020-06-13 11:58] LABS: Absolute Lymphocytes (CBC) 0.9 K/uL (0.7-4.9); Basophils % 0.5 % (0-1.3); Hematocrit 39.6 % (36.0-45.0); Lymphocytes % 10.9 % (15.3-44.8); MPV 11.1 fL (7.6-11.3); RBC Red Blood Cell Count 3.67 M/uL (3.86-4.86)
[2020-06-13 11:59] LABS: Protime INR 1.52
[2020-06-13 12:06] LABS: Albumin 3.3 g/dL (3.4-5.0); Bilirubin Direct 0.2 mg/dL (0-0.2); Bilirubin Total 0.6 mg/dL (0.2-1.0); Magnesium 1.5 mg/dL (1.8-2.4); Potassium 3.6 mmol/L (3.5-5.1); Protein, Total 7.4 g/dL (6.4-8.2); Troponin (Emerg Dept Use Only) 0.16 ng/mL (0.0-0.045)
[2020-06-13] MEDS ORDERED: ENOXAPARIN 100 MG/ML SYR SQ ONE (12:49)
[2020-06-13] MEDS ORDERED: FUROSEMIDE 40 MG/4 ML VIAL ONE (12:49)
[2020-06-13] MEDS ORDERED: Magnesium Sulfate 2gm IVPB 2 G/50 ML BAG IV ONE (12:50)
--- NOTE | 2020-06-13 14:39 | EDPHYS ---
Physician Documentation [facility] Name: Arminda Rodriguez Age: 80 yrs Sex: Female : 1940 Arrival Date: 06/13/2020 Time: 11:02 Bed 23 Private MD: ED Physician Wood Melendez HPI: 06/13 11:31 This 80 yrs old Female presents to ER via EMS with complaints of General jr8 Weakness, Nausea/Vomiting. 11:31 Patient stated that she has been wearing heart monitor for persistent bradycardia. jr8 Stated that today while in the shower started to feel weak, nauseated, and started to have cold sweats. Stated that she had near syncopal episode and vomited everywhere. EMS called at that time. Denies syncope or injury. Stated that she feels much better post vomiting. EMS denies any acute findings as far as BGL, monitor, or BP. Onset: The symptoms/episode began/occurred acutely, today. Severity of symptoms: At their worst the symptoms were moderate in the emergency department the symptoms have improved markedly. It is unknown whether or not the patient has had similar symptoms in the past. The patient has been recently seen by a physician:. Historical: - Allergies: 11:12 Amaryl; iw 11:12 Amoxicillin; iw 11:12 ANGIOTENSIN RECEPTOR ANTAGONIST; iw 11:12 Augmentin; iw 11:12 Byetta; iw 11:12 Demerol; iw 11:12 Hydrocodone-Acetaminophen; iw 11:12 Januvia; iw 11:12 Lantus; iw 11:12 metformin; iw 11:12 Niaspan; iw 11:12 QUINOLONES; iw 11:12 Dvmafvu-Nht-Zee Reductase Inhibitors; iw 11:12 Tetanus Immune Globulin; iw 11:12 Zetia; iw - PMHx: 11:12 CAD; CVA; Diabetes - NIDDM; Hyperlipidemia; Hypertension; Myocardial infarction; iw VENTRAL HERNIA; - Immunization history:: Adult Immunizations unknown. - Social history:: Smoking status: unknown. ROS: 11:31 Eyes: Negative for injury, pain, redness, and discharge, ENT: Negative for injury, jr8 pain, and discharge, Neck: Negative for injury, pain, and swelling, Cardiovascular: Negative for chest pain, palpitations, and edema, Respiratory: Negative for shortness of breath, cough, wheezing, and pleuritic chest pain, Back: Negative for injury and pain, MS/Extremity: Negative for injury and deformity, Skin: Negative for injury, rash, and discoloration. 11:31 Constitutional: Positive for fatigue, malaise. 11:31 Abdomen/GI: Positive for nausea and vomiting, Negative for abdominal pain, diarrhea, constipation, abdominal cramps, abdominal distension. 11:31 Neuro: Positive for near syncope, weakness. Exam: 11:31 Constitutional: This is a well developed, well nourished patient who is awake, alert, jr8 and in no acute distress. Eyes: Pupils equal round and reactive to light, extra-ocular motions intact. Lids and lashes normal. Conjunctiva and sclera are non-icteric and not injected. Cornea within normal limits. Periorbital areas with no swelling, redness, or edema. ENT: Nares patent. No nasal discharge, no septal abnormalities noted. Tympanic membranes are normal and external auditory canals are clear. Oropharynx with no redness, swelling, or masses, exudates, or evidence of obstruction, uvula midline. Mucous membranes moist. Neck: Trachea midline, no thyromegaly or masses palpated, and no cervical lymphadenopathy. Supple, full range of motion without nuchal rigidity, or vertebral point tenderness. No Meningismus. Cardiovascular: Bradycardic with a normal S1 and S2. No gallops, murmurs, or rubs. Normal PMI, no JVD. No pulse deficits. Respiratory: Lungs have equal breath sounds bilaterally, clear to auscultation and percussion. No rales, rhonchi or wheezes noted. No increased work of breathing, no retractions or nasal flaring. Abdomen/GI: Soft, non-tender, with normal bowel sounds. No distension or tympany. No guarding or rebound. No evidence of tenderness throughout. Back: No spinal tenderness. No costovertebral tenderness. Full range of motion. Skin: Warm, dry with normal turgor. Normal color with no rashes, no lesions, and no evidence of cellulitis. MS/ Extremity: Pulses equal, no cyanosis. Neurovascular intact. Full, normal range of motion. Neuro: Awake and alert, GCS 15, oriented to person, place, time, and situation. Cranial nerves II-XII grossly intact. Motor strength 5/5 in all extremities. Sensory grossly intact. 11:35 ECG was reviewed by the Attending Physician. jr8 Vital Signs: 11:13 BP 123 / 61; Pulse 58; Resp 20; Temp 97.8(O); Pulse Ox 92% on R/A; Pain 0/10; em1 12:17 BP 132 / 78; Pulse 62; Resp 15; Pulse Ox 97% on R/A; Weight 119.75 kg; iw 13:34 BP 160 / 86; Pulse 63; Resp 18; Pulse Ox 97% on R/A; zb 15:15 BP 150 / 67; Pulse 66; Resp 16; Pulse Ox 95% on R/A; zb 16:16 BP 136 / 62; Pulse 64; Resp 18; Pulse Ox 98% on R/A; zb MDM: 11:05 Patient medically screened. jr8 14:38 Data reviewed: vital signs, nurses notes, lab test result(s), EKG, radiologic studies, jr8 plain films. Data interpreted: Pulse oximetry: on room air is 97 %. Interpretation: normal. Counseling: I had a detailed discussion with the patient and/or guardian regarding: the historical points, exam findings, and any diagnostic results supporting the discharge/admit diagnosis, lab results, radiology results. 15:14 ED course: Discussed case with Dr. Gomez and Candice. Both are ok with her going home jr8 and Dr. Harvey will see her in office tomorrow at 1 pm. Family and patient good with this. VS stable at this time and has been able to ambulate . 06/13 11:25 Order name: Basic Metabolic Panel; Complete Time: 12:09 06/13 11:25 Order name: CBC with Diff; Complete Time: 14:15 06/13 11:25 Order name: LFT's; Complete Time: 12:09 06/13 11:25 Order name: Magnesium; Complete Time: 12:09 06/13 11:25 Order name: NT PRO-BNP; Complete Time: 12:09 06/13 11:25 Order name: PT-INR; Complete Time: 12:25 06/13 11:25 Order name: Troponin (emerg Dept Use Only); Complete Time: 12:09 06/13 11:25 Order name: XRAY Chest (1 view); Complete Time: 11:51 /07 11:25 Order name: EKG; Complete Time: 11:06/13 11:25 Order name: Cardiac monitoring; Complete Time: 12:06/13 11:25 Order name: EKG - Nurse/Tech; Complete Time: 06/13 11:25 Order name: IV Saline Lock; Complete Time: 06/13 11:25 Order name: Labs collected and sent; Complete Time: 06/13 11:25 Order name: O2 Per Protocol; Complete Time: 06/13 11:25 Order name: O2 Sat Monitoring; Complete Time: 06/13 11:25 Order name: Glucose Level; Complete Time: 12:18 8 EC:35 Rate is 57 beats/min. Rhythm is regular, Sinus bradycardia. QRS [place] is Normal. PA jr8 interval is normal at 188 msec. QRS interval is normal at 112 msec. QT interval is normal at 453 msec. No Q waves. T waves are Inverted in lead aVL. No ST changes noted. Clinical impression: Sinus bradycardia and No evidence of ischemia. Interpreted by me. Reviewed by me. Administered Medications: 13:02 Drug: Lovenox (enoxaparin) 1 mg/kg Route: Sub-Q; Site: right lower abdomen; zb 14:17 Follow up: Response: No adverse reaction zb 13:02 Drug: Lasix (furosemide) 40 mg Route: IVP; Site: left antecubital; zb 14:16 Follow up: Response: No adverse reaction; Marked relief of symptoms zb 13:03 Drug: Magnesium Sulfate 2 grams Route: IVPB; Infused Over: 2 hrs; Site: left zb antecubital; 14:17 Follow up: Response: No adverse reaction; IV Status: Completed infusion; IV Intake: 50mlzb Disposition: 17:34 Co-signature as Attending Physician, Wood Melendez MD. rn Disposition: 06/13/20 15:24 Discharged to Home. Impression: Near Syncope, Bradycardia, unspecified. - Condition is Stable. - Discharge Instructions: Bradycardia, Adult, Pacemaker Implantation, Adult. - Medication Reconciliation Form, Thank You Letter, Antibiotic Education, Prescription Opioid Use form. - Follow up: Adán Harvey MD; When: Tomorrow; Reason: Recheck today's complaints, Continuance of care, Re-evaluation by your physician. - Problem is new. - Symptoms have improved. Signatures: Dispatcher [employer] Marisel Bethea RN RN iw Nieto, Roman, MD MD rn Roszak, Josh, KALA ARMENDARIZ jr8 RajeshBhavya RN RN zb Corrections: (The following items were deleted from the chart) 15:14 14:39 Hospitalization Ordered by Frederick Gomez MD for Observation. Preliminary diagnosis jr8 is Bradycardia, unspecified; Near Syncope; Unspecified combined systolic (congestive) and diastolic (congestive) heart failure. Bed requested for Telemetry/MedSurg (observation). Status is Observation. Condition is Stable. Problem is new. Symptoms have improved. jr8 15:22 14:38 Counseling: I had a detailed discussion with the patient and/or guardian jrAntonia regarding: the historical points, exam findings, and any diagnostic results supporting the discharge/admit diagnosis, lab results, radiology results, the need for further work-up and treatment in the hospital, jr8 16:17 15:24 06/13/2020 15:24 Discharged to Home. Impression: Near Syncope; Bradycardia, zb unspecified. Condition is Stable. Forms are Medication Reconciliation Form, Thank You Letter, Antibiotic Education, Prescription Opioid Use. Follow up: Adán Harvey; When: Tomorrow; Reason: Recheck today's complaints, Continuance of care, Re-evaluation by your physician. Problem is new. Symptoms have improved. jr8
--- NOTE | 2020-06-13 14:39 | ER ---
Nurse's Notes [facility] Name: Arminda Rodriguez Age: 80 yrs Sex: Female : 1940 Arrival Date: 06/13/2020 Time: 11:02 Bed 23 Private MD: Diagnosis: Near Syncope;Bradycardia, unspecified Presentation: 06/13 11:09 Chief complaint: EMS states: felt weak while in shower this morning, not feeling well, iw nearly past out, vomited once, dry heaving, pt has Holter monitor in place, [facility]. Coronavirus screen: At this time, the client does not indicate any symptoms associated with coronavirus-19. Ebola Screen: Patient negative for fever greater than or equal to 101.5 degrees Fahrenheit, and additional compatible Ebola Virus Disease symptoms Patient denies exposure to infectious person. Patient denies travel to an Ebola-affected area in the 21 days before illness onset. No symptoms or risks identified at this time. Initial Sepsis Screen: Does the patient meet any 2 criteria? No. Patient's initial sepsis screen is negative. Does the patient have a suspected source of infection? No. Patient's initial sepsis screen is negative. Risk Assessment: Do you want to hurt yourself or someone else? Patient reports no desire to harm self or others. Onset of symptoms was June 13, 2020. 11:09 Method Of Arrival: EMS: [facility] iw 11:09 Acuity: GORDO 2 iw Historical: - Allergies: 11:12 Amaryl; iw 11:12 Amoxicillin; iw 11:12 ANGIOTENSIN RECEPTOR ANTAGONIST; iw 11:12 Augmentin; iw 11:12 Byetta; iw 11:12 Demerol; iw 11:12 Hydrocodone-Acetaminophen; iw 11:12 Januvia; iw 11:12 Lantus; iw 11:12 metformin; iw 11:12 Niaspan; iw 11:12 QUINOLONES; iw 11:12 Davmgpd-Evv-Som Reductase Inhibitors; iw 11:12 Tetanus Immune Globulin; iw 11:12 Zetia; iw - PMHx: 11:12 CAD; CVA; Diabetes - NIDDM; Hyperlipidemia; Hypertension; Myocardial infarction; iw VENTRAL HERNIA; - Immunization history:: Adult Immunizations unknown. - Social history:: Smoking status: unknown. Screenin:49 Abuse screen: Denies threats or abuse. Denies injuries from another. Nutritional iw screening: No deficits noted. Tuberculosis screening: No symptoms or risk factors identified. Fall Risk Assessment: 11:48 General: Appears in no apparent distress. Behavior is calm, cooperative. Pain: Denies iw pain. Neuro: Level of Consciousness is awake, alert, obeys commands, Oriented to person, place, time, Moves all extremities. Neuro: Reports dizziness, weakness. Respiratory: Respiratory effort is even, unlabored, Respiratory pattern is regular. GI: Abdomen is non-distended, Reports nausea, vomiting. 12:19 Reassessment: Patient appears in no apparent distress at this time. Patient and/or iw family updated on plan of care and expected duration. Pain level reassessed. Patient is alert, oriented x 3, equal unlabored respirations, skin warm/dry/pink. aox4. patient report dizziness with position changes. son remains at bedside. denies any pain. she states that she has neuropathy. patient also has bilateral swelling of the ankles and feet. 13:35 Reassessment: Patient appears in no apparent distress at this time. Patient and/or zb family updated on plan of care and expected duration. Pain level reassessed. Patient is alert, oriented x 3, equal unlabored respirations, skin warm/dry/pink. pt taken to restroom. no issues at this time voided 600ml on bedside comode. 14:30 Reassessment: Patient appears in no apparent distress at this time. Patient and/or zb family updated on plan of care and expected duration. Pain level reassessed. Patient is alert, oriented x 3, equal unlabored respirations, skin warm/dry/pink. voided 400ml on bedside commode. son remains at bedside. 15:15 Reassessment: Patient appears in no apparent distress at this time. Patient and/or zb family updated on plan of care and expected duration. Pain level reassessed. Patient is alert, oriented x 3, equal unlabored respirations, skin warm/dry/pink. voided in commode. 16:16 Reassessment: Patient appears in no apparent distress at this time. Patient and/or zb family updated on plan of care and expected duration. Pain level reassessed. Patient is alert, oriented x 3, equal unlabored respirations, skin warm/dry/pink. voided in commode. Vital Signs: 11:13 BP 123 / 61; Pulse 58; Resp 20; Temp 97.8(O); Pulse Ox 92% on R/A; Pain 0/10; em1 12:17 BP 132 / 78; Pulse 62; Resp 15; Pulse Ox 97% on R/A; Weight 119.75 kg; iw 13:34 BP 160 / 86; Pulse 63; Resp 18; Pulse Ox 97% on R/A; zb 15:15 BP 150 / 67; Pulse 66; Resp 16; Pulse Ox 95% on R/A; zb 16:16 BP 136 / 62; Pulse 64; Resp 18; Pulse Ox 98% on R/A; zb ED Course: 11:02 Patient arrived in ED. iw 11:05 Jagjit Galvez PA is PHCP. jr8 11:05 Wood Melendez MD is Attending Physician. jr8 11:08 Marisel Wilkes, RN is Primary Nurse. iw 11:11 Triage completed. iw 11:23 EKG done, by ED staff, reviewed by Jagjit ARMENDARIZ. em1 11:41 XRAY Chest (1 view) In Process Unspecified. EDMS 11:49 Initial lab(s) drawn, by me, sent to lab. Maintain EMS IV. Dressing intact. Good blood iw return noted. Site clean \T\ dry. Gauge \T\ site: 20 LAC. 12:17 Patient has correct armband on for positive identification. Bed in low position. Call iw light in reach. Side rails up X 1. Adult w/ patient. monitoring tech on. Pulse ox on. NIBP on. Door closed. Noise minimized. Warm blanket given. 12:18 Arm band placed on. iw 14:38 Frederick Gomez MD is Hospitalizing Provider. jr8 15:24 Adán Harvey MD is Referral Physician. jr8 16:17 No provider procedures requiring assistance completed. IV discontinued, intact, zb bleeding controlled, No redness/swelling at site. Pressure dressing applied. Administered Medications: 13:02 Drug: Lovenox (enoxaparin) 1 mg/kg Route: Sub-Q; Site: right lower abdomen; zb 14:17 Follow up: Response: No adverse reaction zb 13:02 Drug: Lasix (furosemide) 40 mg Route: IVP; Site: left antecubital; zb 14:16 Follow up: Response: No adverse reaction; Marked relief of symptoms zb 13:03 Drug: Magnesium Sulfate 2 grams Route: IVPB; Infused Over: 2 hrs; Site: left zb antecubital; 14:17 Follow up: Response: No adverse reaction; IV Status: Completed infusion; IV Intake: 50mlzb Intake: 14:17 IV: 50ml (IV Fluid); Total: 50ml. zb 14:17 IV: 50ml; Total: 100ml. zb Output: 13:34 Urine: 600ml (Voided); Total: 600ml. zb 14:17 Urine: 400ml (Voided); Total: 1000ml. zb Outcome: 14:39 Decision to Hospitalize by Provider. jr8 15:24 Discharge ordered by MD. jrAntonia 16:17 Discharged to home ambulatory. zb 16:17 Condition: stable 16:17 Discharge instructions given to patient, Instructed on discharge instructions, follow up and referral plans. Demonstrated understanding of instructions, follow-up care. 16:17 Patient left the ED. zb Signatures: Dispatcher [employer] EDMarisel Treadwell RN RN iw Martinez, Eric em1 Jagjit Galvez PA PA jrBhavya Hart RN RN zb Corrections: (The following items were deleted from the chart) 13:03 13:02 Lovenox (enoxaparin) 1 mg/kg Sub-Q in right thigh zb zb
[2020-06-13 16:30] VITALS: TEMP 97.8
[2020-06-13 16:35] VITALS: BP 136/62; O2SAT 98
--- NOTE | 2020-06-14 08:52 | EKG ---
Test Date: 2020-06-13 Test Time: 11:18:29 Emergency Medical Technician: ADRIA MEASUREMENT RESULTS: Intervals: Rate: 57 SD: 188 QRSD: 112 QT: 466 QTc: 453 [place]: P: 36 SD: 188 QRS: -7 T: 89 INTERPRETIVE STATEMENTS: Sinus bradycardia Otherwise normal ECG Compared to ECG 05/29/2020 11:02:24 Sinus arrhythmia no longer present Electronically Signed On 06-14-20 08:50:15 CDT by Adán Harvey
== END 2020-06-13 16:17 | disposition home or self-care (01) ==
LOC: ER 10:54
DX: R00.1 Bradycardia, unspecified (principal); R53.1 Weakness; I10 Essential (primary) hypertension; I25.2 Old myocardial infarction; Z86.73 Personal history of transient ischemic attack (TIA), and cerebral infarction without residual deficits; Z88.1 Allergy status to other antibiotic agents; Z88.5 Allergy status to narcotic agent; Z88.7 Allergy status to serum and vaccine; Z88.8 Allergy status to other drugs, medicaments and biological substances
CPT/HCPCS: 85025; 80048; 36415; 83735; 85610; 80076; 84484; 83880; 71045; J1940; J1650; J3475; 93005; 96365; 96372; 96375; 99284

== ENCOUNTER 2020-09-03 17:31 | Inpatient (IN) | payer OTHER ==
--- OUTSIDE RECORDS SUMMARY | 2020-09-03 17:37 | XMS REPORT | Continuity of Care Document ---
:1940 Author Organization [facility] t Address [address] [place] [address] Care Team Providers Name Role Phone Pcp [...] emic 5-30 [facility] - metabolic metabolic 00:00: [facility] saira acidosis acidosis 00 Center Acute [...] disease) 00 Center STROKE, Diagnosis Active 2015-02-05 [place] EMOBOLIC 12-01 16:40:00 l STROKE, 00:00: [place] EMOBOLIC 00 Active 12/01/2014 [facility] CVA Diagnosis Active 2014-12-13 Mem oria 11-08 16:45:00 l CVA 00:00: [place] 00 Active 11/08/2014 [facility] GRAZYNA Diagnosis Active 2015-02-05 Memoria BILLING 11-08 16:39:00 l 4255 00:00: [place] GRAZYNA 00 BILLING 4255 Active 11/08/2014 [facility] Clotting Clotting Problem Active Unive rs disorder disorder ity of [place] Physici [facility] Muscle Muscle Problem Active Univers weakness weakness ity of [place] [facility] Asthma Problem Resolve 2015-04-13 Tobi benedict (disorder) d 05:10:29 l Asthma [place] (disorder) Resolved Problem 04/13/2015 [facility], FELIZ Wild, FELIZ Rubi dm Problem Resolve 2015-04-13 Tobi benedict (qualifier d 05:10:29 l value) dm [place] (qualifier value) Resolved Problem 04/13/2015 [facility], FELIZ Wild, FELIZ Rubi Glaucoma Problem Resolve 2015-04-13 Me moria (disorder) d 05:10:29 l Glaucoma Michael n (disorder) Resolved Problem 04/13/2015 [facility], FELIZ Wild, FELIZ Rubi Hypertensi Problem Resolve 2015-04-13 Memoria ve d 05:10:29 l disorder, [place] systemic Hypertensi arterial ve (disorder) disorder, systemic arterial (disorder) Resolved Problem 04/13/2015 [facility], FELIZ Wild, FELIZ Rubi Myocardial Problem Resolve 2015-04-13 Memoria infarction d 05:10:29 l (disorder) Michael n Myocardial infarction (disorder) Resolved Problem 04/13/2015 [facility], FELIZ Wild, FELIZ Rubi Diabetic Problem Resolve 2015-04-13 Me moria neuropathy d 05:10:29 l (disorder) Diabetic He rmann neuropathy (disorder) Resolved Problem 04/13/2015 [facility], FELIZ Wild, FELIZ Rubi Transient Problem Resolve 2015-04-13 M emoria ischemic d 05:10:29 l attack [place] (disorder) Transient ischemic attack (disorder) Resolved Problem 04/13/2015 [facility], FELIZ Wild, OPID [place] CVA Diagnosis Active 2015-02-05 Mem oria 16:40:00 l CVA [place] Active [facility] CEREBRAL Diagnosis Active 2015-02-05 M emoria EMBOLISM W 16:40:00 l CI CEREBRAL Michael n EMBOLISM W CI Active [facility] Polyneurop Polyneurop Problem Active U nivers athy athy [facility] of [place] [facility] Stroke, Stroke, Problem Active Univers embolic embolic ity of [place] [facility] Diabetes Diabetes Problem Active Unive rs mellitus mellitus ity of type 2, type 2, [place] uncontroll uncontroll Ph ysici ed ed ans Essential Essential Problem Active Uni vers (primary) (primary) ity of hypertens[place] hypertens[place] Physici [place] Hyperlipid Hyperlipid Problem Active U nivers emia emia ity of [place] [facility] [place] Multiple Multiple Problem Active Unive rs thyroid thyroid ity of nodules nodules [place] [facility] Vitamin D Vitamin D Problem Active Uni vers deficiency deficiency it y of disease disease [place] [facility] Hypotensio Hypotensio Disease Active C HI St n due to n due to [facility] - hypovolemi hypovolemi Me dical a a Center Normal Normal Disease Active [facility] anion gap anion gap Luke s - metabolic metabolic Medi [place] acidosis acidosis Center Hypercalce Hypercalce Problem Active U nivers daija daija ity of [place] [facility] Allergies, Adverse Reactions, Alerts Allergy [...] Propensi Active [facility] one-Acet ty to 5- [facility] - aminophe adverse 00:00: Medical n reaction 00 Center s Insulin Propensi Active [facility] Glargine ty to - [facility] - adverse 00:00: Medical reaction 00 [...] Propensi Active [facility] Hmg-Coa ty to 5- [facility] - Reductas adverse 00:00: Medical e [...] Propensi Active [facility] ia-Tetan ty to 521 [facility] - us adverse 00:00: Medical Toxoids reaction 00 Center Ped s Exenatid Propensi Active [facility] e ty to 5-21 [facility] - adverse 00:00: Medical reaction 00 Center s Ezetimib Propensi Active 2018-[address] e ty to 5-21 [facility] - adverse 00:00: Medical reaction 00 Center s Glimepir Propensi Active 2018- [facility] rodr[facility]guez ty to 5-21 [facility] - adverse 00:00: Medical reaction 00 Center s Augmenti drug Active Univers n allergy [facility]y of [place] [facility] Byetta drug Active Univers SOLN allergy ity of [place] [facility] Cipro drug Active Univers allergy ity of [place] [facility] hydrocod drug Active Univers one allergy ity of [place] [facility] Januvia drug Active Univers TABS allergy ity of [place] [facility] Lantus drug Active Univers allergy ity of [place] [facility] Levaquin drug Active Univers allergy ity of [place] [facility] Lipitor drug Active Univers allergy ity of [place] Physici ans Meperidi drug Active Univers ne HCl allergy ity of TABS [place] Physici ans MetFORMI drug Active Univers N HCl allergy ity of TABS [place] Physici [facility] Niaspan drug Active Univers TBCR allergy ity of [place] Physici ans Statins drug Active Univers allergy ity of [place] Phys[facility] TETANUS drug Active Univers allergy ity of [place] Physici ans Demerol Demerol Active Memoria HCl HCl l [place] glimepir glimepir Active Memori a rodríguez rodríguez l [place] HYDROcod HYDROcod Active Memori a one-PPA one-PPA l [place] Januvia Januvia Active Memoria l [place] Lantus Lantus Active Memoria l [place] Levaquin Levaquin Active Memori a l [place] Zetia drug Active Univers allergy ity of [place] [facility] [facility] metFORMI metFORMI Active Memori a N N l [place] Niaspan Niaspan Active Memoria ER ER l [place] statins statins Active Memoria l [place] tetanus tetanus Active Memoria immune immune l globulin globulin Michael n Zetia Zetia Active Memoria l [place] amoxicil amoxicil Active Memori a andrew andrew l [place] angioten angioten Active Memori a sin sin l converti converti Michael n ng ng enzyme enzyme inhibito inhibito rs rs antihist antihist Active Memori a amines amines l [place] Byetta Byetta Active Memoria Prefille Prefille l d Pen d Pen [place] Amaryl drug Active Univers allergy [facility] of [place] [facility] amoxicil drug Active Univers andrew allergy ity of [place] [facility] Angioten drug Active Univers sin allergy ity of Receptor [place] Blockers Physici ans Family History Family Member Diagnosis Comments Start Date Stop Date Source Father Family history of Univers ity of coronary [place] Physicia ns arteriosclerosis Social History Social Habit Start Date Stop Date Quantity Comments Source History SDOH [facility] - Alcohol Std Drinks Medica l Center History [facility] Lupatricio - Alcohol Binge Medical Darren ter Sex Assigned At [facility] [place] Tobacco use and 2018-08-25 2018-08-25 Never used [facility] kes - exposure 00:00:00 00:00:00 [facility] Alcohol intake 2018-08-25 2018-08-[address] [facility] Castillo es - 00:00:00 00:00:00 non-drinker of Medical Ce nter alcohol (finding) History SDOH 2018-08-05 2018-08-[address] [facility] - Alcohol Frequency 00:00:00 00:00:00 [facility] Social History 2014-11-09 2014-11-09 [facility] 03:26:32 03:26:32 Smoking Status Start Date Stop Date Source Former smoker [facility] [place] Medications Ordered Filled Start Stop Current Ordering [...] by Center mouth 2 (two) times daily. Tresiba Tresiba Yes CITLALI 30 QD INJECT 30 Univers FlexTouch FlexTouch 11-14 SENDOS UNIT DAILY ity of 100 UNIT/ML 100 UNIT/ML 00:00: M.D. [place] Subcutaneou Subcutaneou 00 P hysici s Solution s Solution ans Pen-injecto Pen-injecto r r Toujeo Toujeo Yes CITLALI 30 QD INJECT 30 U nivers SoloStar SoloStar 11-12 SENDOS UNIT DAILY ity of 300 UNIT/ML 300 UNIT/ML 00:00: M.D. [place] Subcutaneou Subcutaneou 00 P hysici s Solution s Solution ans Pen-injecto Pen-injecto r r OneTouch OneTouch Yes CITLALI uses 4 Univers Delica Delica 6-27 SENDOS daily ity of Lancets 33G Lancets 33G 00:00: M.D. [place] 00 Physici ans OneTouch OneTouch Yes CITLALI Q0.25D TEST 4 Univers Ultra Blue Ultra Blue 6 SENDOS TIMES ity of In Vitro In Vitro 00:00: M.D. DAILY. Guillermo as Strip Strip 00 Physici ans Gabapentin Gabapentin Yes MUNACHI TAKE 1 Univers 100 MG Oral 100 MG Oral 02 OKPALA CAPSULE AT ity of Capsule Capsule 00:00: N.P. BEDTIME. Guillermo as 00 Physici ans Aspirin 81 Aspirin 81 2014-03 Yes 1 QD TAKE 1 Univers MG TABS MG TABS 0-20 TABLET ity of 00:00: DAILY. [place] 00 Physici ans MaxEPA No 2 gm, 2 Memoria 04 cap, l 16:00: Route: PO, [place] 00 Drug form: CAP, Q12H, Start date: 11/10/14 11:00:00, Duration: 30 day, Stop date: 12/10/14 9:00:00 Aspirin 325 Yes 325 mg = 1 Memoria MG Oral 11-10 tab, PO, l Tablet 15:34: Daily, # [place] 00 30 tab, 0 Refill(s) omega-3 Yes 2 gm = 2 Memori a polyunsatur 11-10 cap, PO, l ated fatty 15:34: Q12H, # 60 H ermann acids 1000 00 cap, 0 mg oral Refill(s) capsule [place]-3 No 2,000 mg, Memor ia Acid Ethyl 11-10 2 cap, l Esters 14:00: Route: PO, Liyda nn (CUSTODIAL) 1000 00 Dosing MG Oral Weight Capsule 105.455, [Lovaza] kg, BID, Start date: 11/10/14 9:00:00, Duration: 30 day, Stop date: 12/09/14 17:00:00 Aspirin No 325 mg, Memoria 11-10 Route: PO, l 14:00: Drug form: [place] 00 TAB, Daily, Dosing Weight 105.455, kg, Start date: 11/10/14 9:00:00, Duration: 30 day, Stop date: 12/09/14 9:00:00 heparin No 5,000 Memoria 11-10 unit, l 05:00: Route: [place] 00 SUB-Q, Q8H, Dosing Weight 105.455, kg, Start date: 11/10/14 0:00:00, Duration: 30 day, Stop date: 12/09/14 16:00:00 Levemir No Notes: Memoria 11-10 Same as l 03:19: Levemir Do [place] 00 not hold insulin without contacting prescriber "single patient use only" brinzolamid No brinzolami Memoria e 1% + 11-10 de 1% + l brimonidine 03:00: brimonidin [place] 0.2% 00 e 0.2% (Simbrinza) (Simbrinza ), 1 drp, Drug form: MISC, Route: Each Affected Eye, TID, 11/09/14 22:00:00, Duration: 30 day, Stop date: 12/09/14 14:00:00 Brimonidine 0 No 1 drp, Tobi benedict tartrate 2 [...] 11-09 tab, l 75mg/placeb 14:00: Route: PO, [place] o tablet 00 Drug form: Maintenance TAB, Dose Daily, Start date: 11/09/14 9:00:00, Duration: 89 day, Stop date: 02/05/15 9:00:00 Aspirin 325 No Notes: Tobi benedict MG Oral 11-09 Take with l Tablet 14:00: food. [place] Insulin, No Notes: Memoria Aspart, 11-09 Roll in l Human 05:11: palms of [place] hands gently; Do not shake vigorously . (Same as: NovoLOG) "single patient use only" Stable for 28 days at room temperatur e. Expires in days from ____Date Dextrose No 12.5 gm, Memor ia 50% Syringe 11-09 25 mL, l 05:11: Route: [place] IVP, Drug Form: INJ, Dosing Weight 105.455, kg, PRN, PRN Blood Glucose Results, Start date: 11/09/14 0:11:00, Duration: 30 day, Stop date: 12/09/14 0:10:00 Glucagon No 1 mg, Memoria 11-09 Route: IM, l 05:11: Drug form: [place] 00 PDR/INJ, PRN, Dosing Weight 105.455, kg, PRN Blood Glucose Results, Start date: 11/09/14 0:11:00, Duration: 30 day, Stop date: 12/09/14 0:10:00 Levemir No Notes: Memoria 11-09 Same as l 02:00: Levemir Do not hold insulin without contacting prescriber "single patient use only" Insulin, No Notes: Memoria Aspart, 11-09 Roll in l Human 01:24: palms of [place] 00 hands gently; Do not shake vigorously . (Same as: NovoLOG) "single patient use only" Stable for 28 days at room temperatur e. Expires in days from ____Date Dextrose No 25 gm, 50 Tobi benedict 50% Syringe 11-09 mL, Route: l 01:24: IVP, Drug [place] 00 Form: INJ, kg, PRN, PRN Blood Glucose [...] 11-09 tab, l 75mg/placeb 01:00: Route: PO, [place] o tablet 00 Drug form: Loading TAB, ONCE, Dose Start date: 11/08/14 20:00:00, Stop date: 11/08/14 20:00:00 Ativan No Notes: Memoria 11-09 (Same as: l 00:49: Ativan) [place] Ondansetron No Notes: Tobi benedict 11-09 (Same as: l 00:37: Zofran) [place] 00 MEDICATION WASTE Product Size: 4 mg Product Wasted: ___ mg Acetaminoph No Notes: Max Memoria en 11-09 acetaminop l 00:37: hen 4000 [place] 00 mg/day (4 gm/day). (Same as: Tylenol Extra Strength) Amlodipine Yes 2.5 mg, Tobi benedict 11-09 PO, Daily, l 00:33: 0 [place] 00 Refill(s) spironolact Yes 50 mg = 1 M emoria one 50 mg 11-09 tab, PO, l oral tablet 00:33: Daily, # He rmann 00 90 tab, 1 Refill(s) NovoLog Yes [...] Oral TABLET ity of Tablet Tablet DAILY. [place] Physici ans NovoLOG NovoLOG Yes Inject 10 Univ ers FlexPen 100 FlexPen 100 units ity of UNIT/ML UNIT/ML before [place] Subcutaneou Subcutaneou each meal Physici s Solution s Solution subcutaneo ans Pen-injecto Pen-injecto usly r r Spironolact Spironolact Yes 1 QD TAKE 1 Univers one 50 MG one 50 MG TABLET ity of Oral Tablet Oral Tablet DAILY. [place] Physici ans Levemir Levemir Yes Inject 20 Univ ers FlexTouch FlexTouch units ity of 100 UNIT/ML 100 UNIT/ML subcu once [place] Subcutaneou Subcutaneou a day Physici s Solution s Solution befor an s Pen-injecto Pen-injecto meal. r r Jublia 10 % Jublia 10 % Yes U nivers External External ity of Solution Solution [place] Physici ans Vital Signs Vital Name Observation Time Observation Value Comments Source BMI Calculated 2014-12-06 12:26:00 Ben Patino Weight 2014-12-06 12:26:00 [facility] [place] Height 2014-12-06 12:26:00 162.56 cm Toi Wild Systolic (mm Hg) 2014-11-10 12:45:00 Tobi Wild Diastolic (mm Hg) 2014-11-10 12:45:00 Mem orial [place] Respitory Rate 2014-11-10 12:45:00 Memori al [place] Heart Rate 2014-11-10 12:45:00 [facility] [place] Temperature Oral (F) 2014-11-10 12:45:00 97.3 F [facility] [place] Temperature Oral (F) 2014-11-10 08:17:00 97.8 F [facility] [place] Systolic (mm Hg) 2014-11-10 08:17:00 Tobi rial [place] Diastolic (mm Hg) 2014-11-10 08:17:00 Mem orial [place] Respitory Rate 2014-11-10 08:17:00 Memori al [place] Systolic (mm Hg) 2014-11-10 04:33:00 Tobi rial [place] Diastolic (mm Hg) 2014-11-10 04:33:00 Mem orial [place] Temperature Oral (F) 2014-11-10 04:33:00 97.8 F Memorial [place] Respitory Rate 2014-11-10 04:33:00 Memori al [place] Heart Rate 2014-11-09 16:15:00 [facility] [place] Heart Rate 2014-11-09 16:00:00 [facility] [place] Weight 2014-11-09 02:52:00 [facility] [place] BMI Calculated 2014-11-09 02:52:00 [facility] [place] Height 2014-11-09 02:52:00 162.56 cm [facility] Procedures Procedure Date / Time Performing Clinician Source Performed Abdominal hysterectomy [facility] Bilateral inguinal hernia [facility] [place] repair Cholecystectomy [facility] [place] Hemorrhoidectomy [facility] Tonsillectomy and [facility] Lidya nn adenoidectomy Total splenectomy [facility] Lidya nn History of Cholecystectomy Unive [facility] Physicians History of Splenectomy [facility] Physicians History of [facility] Physicians History of [employer] [facility] [place] Hemorrhoidectomy Physicians History of Tonsillectomy [facility] Adenoide[facility] Physicians History of Inguinal Hernia Unive [facility] Repair Physicians Plan of Care Planned Activity [...] - Test 00:00:00 (1 of 1 - [facility] [id number]) [code = PNEUMOCOCCAL 65+ YRS (1 of 1 - [id number] PCV13)] Encounters Start End Encounter Admission Attending Care Care Encounter Source Date/Time Date/Time Type Type Clinicians Facility Department ID 2015-04-10 2015-04-10 Outpatient JORDAN Goodwin [facility] [id number] 12:42:00 23:59:00 [facility] 2015-04-10 2015-04-10 JULIA Covarrubias Neurology [id number] Univers 09:00:00 09:00:00 t; [facility] 2015-04-09 2015-04-09 Outpatient MALIKA Kenny ROMELIA [id number] 12:48:00 23:59:00 Citlali 00 Eric 2015-03-27 2015-03-27 AppointJULIA Suarez UTP [id number] Univers 11:15:00 11:15:00 t; CITLALI KENNY it y of [place], M.D. [place] M.D. Physici ans 2015-03-06 2015-03-06 JULIA Covarrubias UTP [id number] Univers 09:00:00 09:00:00 t; ETTA GOODWIN M.D. ity [facility] [place] D[place] Physici ans 2014-12-06 2014-12-06 Outpatient Lyn [facility] [id number] 07:19:00 23:59:00 Matilda 00 Yumizeealfa 2014-11-08 2014-11-10 Outpatient Jesus [facility] [id number] 16:20:00 12:54:00 Deric Villafana Results Test Description Test Time Test Comments Results Result Comments Source POCT-GLUCOSE METER 2018-08-17 12:30:00 Test Item Value Reference Range Interpretation Comme nts POC-GLUCOSE METER (BEAKER) (test 164 mg/dL 70-110 [address] code = 1538Michelle [facility] 7703 0 POCT-GLUCOSE [id number] 12:29:00 Test Item Value Reference Range Interpretation Comments POC-GLUCOSE METER 83 mg/dL 70-110 TESTED AT [place] [address] ([facility]) (test code = DAVE Borja [facility] [address] 1538) POCT-GLUCOSE [id number] 22:17:00 Test Item Value Reference Range Interpretation Comments POC-GLUCOSE METER 116 mg/dL 70-110 H TESTED AT [place] [address] ([facility]) (test code = DAVE Borja [facility] 1538) [id number] POCT-GLUCOSE [id number] 17:38:00 Test Item Value Reference Range Interpretation Comments POC-GLUCOSE METER 168 mg/dL 70-110 H TESTED AT [place] [address] ([facility]) (test code = DAVE Borja [facility] 1538) [id number] POCT-GLUCOSE [id number] 12:41:00 Test Item Value Reference Range Interpretation Comments POC-GLUCOSE METER 243 mg/dL 70-110 H TESTED AT [place] [address] ([facility]) (test code = DAVE Borja [facility] 1538) [id number] POCT-GLUCOSE [id number] 09:34:00 Test Item Value Reference Range Interpretation Comments POC-GLUCOSE METER 193 mg/dL 70-110 H TESTED AT [place] [address] ([facility]) (test code = DAVE Borja [facility] 1538) [id number] POCT-GLUCOSE [id number] 21:52:00 Test Item Value Reference Range Interpretation Comments POC-GLUCOSE METER 222 mg/dL 70-110 H TESTED AT [place] [address] ([facility]) (test code = DAVE Borja [facility] 1538) [id number] POCT-GLUCOSE [id number] 18:59:00 Test Item Value Reference Range Interpretation Comments POC-GLUCOSE METER 181 mg/dL 70-110 H TESTED AT [place] [address] ([facility]) (test code = DAVE Borja [facility] 1538) [id number] POCT-GLUCOSE [id number] 14:21:00 Test Item Value Reference Range Interpretation Comments POC-GLUCOSE METER 179 mg/dL 70-110 H TESTED AT [place] [address] ([facility]) (test code = ZAIRERI Huong [facility] 1538) [id number] POCT-GLUCOSE [id number] 09:40:00 Test Item Value Reference Range Interpretation Comments POC-GLUCOSE METER 211 mg/dL 70-110 H TESTED AT [facility] 6720 (BEAKER) (test code = DAVE [place] 1538) [id number] BASIC METABOLIC [id number] 06:49:00 Test Item Value Reference Range Interpretation [...] PATIEN TS. CBC W/PLT COUNT & AUTO [id number] 06:45:00 Test Item Value Reference Range Interpretation [...] (BEAKER) (test code = 2801) URINALYSIS W/ [id number] 04:40:00 Test Item Value Reference Range Interpretation [...] 516) SOURCE(BEAKER) (test code = 2795) POCT-GLUCOSE [id number] 20:47:00 Test Item Value Reference Range Interpretation Comments POC-GLUCOSE METER 273 mg/dL 70-110 H TESTED AT [place] [address] ([facility]) (test code = ZAIRESABA Borja [facility] 1538) [id number] POCT-GLUCOSE [id number] 18:20:00 Test Item Value Reference Range Interpretation Comments POC-GLUCOSE METER 305 mg/dL 70-110 H Notified R Siria SMITH/TESTED ([facility]) (test code = AT [address] 1538) [place] [address] POCT-GLUCOSE [id number] 14:27:00 Test Item Value Reference Range Interpretation Comments POC-GLUCOSE METER 215 mg/dL 70-110 H TESTED AT [place] [address] ([facility]) (test code = ZAIRESABA Borja [facility] 1538) [id number] POCT-GLUCOSE [id number] 12:10:00 Test Item Value Reference Range Interpretation Comments POC-GLUCOSE METER 278 mg/dL 70-110 H TESTED AT [place] [address] ([facility]) (test code = ZAIRESABA Borja [facility] 1538) [id number] POCT-GLUCOSE [id number] 08:12:00 Test Item Value Reference Range Interpretation Comments POC-GLUCOSE METER 225 mg/dL 70-110 H TESTED AT [place] [address] ([facility]) (test code = ZAIRESABA Borja [facility] 1538) [id number] POCT-GLUCOSE [id number] 21:36:00 Test Item Value Reference Range Interpretation Comments POC-GLUCOSE METER 272 mg/dL 70-110 H TESTED AT [place] [address] ([facility]) (test code = [facility] 1538) [address] POCT-GLUCOSE [id number] 18:06:00 Test Item Value Reference Range Interpretation Comments POC-GLUCOSE METER 264 mg/dL 70-110 H TESTED AT [place] [address] [facility] (test code = [facility] 1538) [id number] POCT-GLUCOSE [id number] 13:33:00 Test Item Value Reference Range Interpretation Comments POC-GLUCOSE METER 225 mg/dL 70-110 H TESTED AT [place] [address] [facility] (test code = [facility] 1538) [id number] POCT-GLUCOSE [id number] 08:16:00 Test Item Value Reference Range Interpretation Comments POC-GLUCOSE METER 217 mg/dL 70-110 H TESTED AT [place] [address] ([facility]) (test code = [facility] 1538) [address] [id number] 07:48:00 Test Item Value Reference Range Interpretation Comments MAGNESIUM (BEAKER) (test code = 1.6 mg/dL 1.6-2.6 627) BASIC METABOLIC [id number] 07:48:00 Test Item Value Reference Range Interpretation [...] PATIEN TS. CBC W/PLT COUNT & AUTO [id number] 07:18:00 Test Item Value Reference Range Interpretation [...] PERCENT (BEAKER) (test code = 2801) POCT-GLUCOSE [id number] 23:19:00 Test Item Value Reference Range Interpretation Comments POC-GLUCOSE METER 214 mg/dL 70-110 H TESTED AT [place] [address] (BEAKER) (test code = DAVE Borja [place] 1538) [id number] POCT-GLUCOSE [id number] 16:37:00 Test Item Value Reference Range Interpretation Comments POC-GLUCOSE METER 192 mg/dL 70-110 H TESTED AT [place] [address] [facility] (test code = DAVE Borja [place] 1538) [address] POCT-GLUCOSE [id number] 12:47:00 Test Item Value Reference Range Interpretation Comments POC-GLUCOSE METER 233 mg/dL 70-110 H TESTED AT [place] [address] [facility] (test code = DAVE Borja [place] 1538) [address] BASIC METABOLIC [id number] 11:26:00 Test Item Value Reference Range Interpretation [...] S NOT APPLICABLE FOR DIALYSIS PATIEN TS. [id number] 11:26:00 Test Item Value Reference Range Interpretation Comments MAGNESIUM (BEAKER) (test code = 1.2 mg/dL 1.6-2.6 L 627) CBC W/PLT COUNT & AUTO [id number] 11:17:00 Test Item Value Reference Range Interpretation [...] 3438) Received comment: User comments: Slide comments:POCT-GLUCOSE [id number] 07:57:00 Test Item Value Reference Range Interpretation Comments POC-GLUCOSE METER 165 mg/dL 70-110 H TESTED AT [facility] 6720 (BEAKER) (test code = DAVE Borja [facility] 1538) [id number] POCT-GLUCOSE [id number] 22:08:00 Test Item Value Reference Range Interpretation Comments POC-GLUCOSE METER 161 mg/dL 70-110 H TESTED AT [facility] 6720 (BEAKER) ([facility] = [facility] 1538) [id number] POCT-GLUCOSE [id number] 18:10:00 Test Item Value Reference Range Interpretation Comments POC-GLUCOSE METER 141 mg/dL 70-110 H TESTED AT [facility] 6720 (BEAKER) (test code = [facility] 1538) [address] [id number] 14:55:00 Test Item Value Reference Range Interpretation Comments MAGNESIUM (BEAKER) 1.2 mg/dL 1.6-2.6 L Specimen slightly (test code = 627) hemolyzed BASIC METABOLIC [id number] 14:55:00 Test Item Value Reference Range Interpretation [...] NOT APPLICABLE FOR DIALYSIS PATIEN TS. POCT-GLUCOSE [id number] 12:01:00 Test Item Value Reference Range Interpretation Comments POC-GLUCOSE METER 163 mg/dL 70-110 H TESTED AT [facility] 6720 ([facility]) (test code = DAVE Broja [facility] 1538) [address] CBC W/PLT COUNT & AUTO [id number] 11:57:00 Test Item Value Reference Range Interpretation [...] PERCENT (BEAKER) (test code = 2801) POCT-GLUCOSE [id number] 10:18:00 Test Item Value Reference Range Interpretation Comments POC-GLUCOSE METER 155 mg/dL 70-110 H TESTED AT [facility] 67 (BEAKER) (test code = DAVE [place] 1538) [address] POCT-GLUCOSE [id number] 08:13:00 Test Item Value Reference Range Interpretation Comments POC-GLUCOSE METER 157 mg/dL 70-110 H TESTED AT [facility] 6720 (BEAKER) (test code = DAVE [place] 1538) [address] POCT-GLUCOSE [id number] 21:57:00 Test Item Value Reference Range Interpretation Comments POC-GLUCOSE METER 181 mg/dL 70-110 H TESTED AT [facility] 6720 (BEAKER) (test code = D[place] 1538) [address] POCT-GLUCOSE [id number] 17:39:00 Test Item Value Reference Range Interpretation Comments POC-GLUCOSE METER 232 mg/dL 70-110 H TESTED AT [facility] 6720 (BEAKER) (test code = DAVE [place] 1538) [address] POCT-GLUCOSE [id number] 12:55:00 Test Item Value Reference Range Interpretation Comments POC-GLUCOSE METER 207 mg/dL 70-110 H TESTED AT [facility] 6720 (BEAKER) (test code = DAVE [place] 1538) [address] CBC W/PLT COUNT & AUTO [id number] 12:50:00 Test Item Value Reference Range Interpretation [...] 3438) Received comment: User comments: Slide comments:POCT-GLUCOSE [id number] 08:56:00 Test Item Value Reference Range Interpretation Comments POC-GLUCOSE METER 194 mg/dL 70-110 H TESTED AT [facility] 6720 (BEAKER) (test code = [place] 1538) [address] [id number] 06:11:00 Test Item Value Reference Range Interpretation Comments MAGNESIUM (BEAKER) (test code = 1.4 mg/dL 1.6-2.6 L 627) BASIC METABOLIC [id number] 06:11:00 Test Item Value Reference Range Interpretation Comments SODIUM (BEAKER) 130 meq/L 136-145 L (test code = 381) POTASSIUM (BEAKER) 4.1 meq/L 3.5-5.1 (test code = 379) CHLORIDE (BEAKER) 98 meq/L 98-107 (test code = 382) CO2 (BEAKER) (test 24 meq/L 22-29 code = 355) BLOOD UREA NITROGEN 19 mg/dL 7-21 ([facility]) (test code = 354) CREATININE (BEAKER) 0.64 mg/dL 0.57-1.25 (test code = 358) GLUCOSE RANDOM 189 mg/dL 70-105 H ([facility]) (test code = 652) CALCIUM (BEAKER) 9.5 mg/dL 8.4-10.2 (test code = 697) EGFR ([facility]) (test 90 mL/min/1.73 ESTIMA JONATHAN GFR IS code = 1092) sq m NOT ACCURATE CREATININE CLEARANCE IN PREDICTING GLOMERULAR FILTRATION RATE . ESTIMATED GFR I S NOT APPLICABLE FOR DIALYSIS PATIEN TS. POCT-GLUCOSE [id number] 21:53:00 Test Item Value Reference Range Interpretation Comments POC-GLUCOSE METER 225 mg/dL 70-110 H TESTED AT [place] [address] ([facility]) (test code = DAVE Borja [facility] 1538) [address] POCT-GLUCOSE [id number] 19:30:00 Test Item Value Reference Range Interpretation Comments POC-GLUCOSE METER 225 mg/dL 70-110 H TESTED AT [place] [address] ([facility]) (test code = [facility] 1538) [address] POCT-GLUCOSE [id number] 15:02:00 Test Item Value Reference Range Interpretation Comments POC-GLUCOSE METER 179 mg/dL 70-110 H TESTED AT [place] [address] ([facility]) [facility] 1538) [address] [id number] 13:04:00 Test Item Value Reference Range Interpretation Comments MAGNESIUM (BEAKER) 1.5 mg/dL 1.6-2.6 L Specimen slightly (test code = 627) hemolyzed Check Serum Magnesium level 2 hours after IV magnesium replacement.Every 8 hours PRN for Creatinine greater than or equal to 2 mg/dL.[id number] 13:04:00 Test Item Value Reference Range Interpretation Comments POTASSIUM (BEAKER) 4.2 meq/L 3.5-5.1 Specimen slightly (test code = 379) hemolyzed Check Serum Magnesium level 2 hours after IV magnesium replacement.Every 8 hours PRN for Creatinine greater than or equal to 2 mg/dL.POCT-GLUCOSE [id number] 08:24:00 Test Item Value Reference Range Interpretation Comments POC-GLUCOSE METER 189 mg/dL 70-110 H TESTED AT [facility] 6720 (BEAKER) (test code = DAVE [place] 1532) [address] CBC W/PLT COUNT & AUTO [id number] 08:03:00 Test Item Value Reference Range Interpretation [...] 3438) Received comment: User comments: Slide comments:CALCIUM, [id number] 05:17:00 Test Item Value Reference Range Interpretation Comments CALCIUM IONIZED (BEAKER) (test 1.26 mmol/L 1.12-1.27 code = 698) PH, BLOOD (BEAKER) (test code = 7.42 1810) [id number] 05:09:00 Test Item Value Reference Range Interpretation Comments PHOSPHORUS (BEAKER) (test code = 2.0 mg/dL 2.3-4.7 L 604) [id number] 05:09:00 Test Item Value Reference Range Interpretation Comments MAGNESIUM (BEAKER) (test code = 1.6 mg/dL 1.6-2.6 627) BASIC METABOLIC [id number] 05:09:00 Test Item Value Reference Range Interpretation [...] NOT APPLICABLE FOR DIALYSIS PATIEN TS. POCT-GLUCOSE [id number] 23:39:00 Test Item Value Reference Range Interpretation Comments POC-GLUCOSE METER 200 mg/dL 70-110 H TESTED AT [facility] 6720 (BEAKER) (test code = D[place] 1538) [address] [id number] 22:42:00 Test Item Value Reference Range Interpretation Comments MAGNESIUM (BEAKER) (test code = 1.5 mg/dL 1.6-2.6 L 627) POTASSIUM-STAT [id number] 22:24:00 Test Item Value Reference Range Interpretation Comments POTASSIUM (BEAKER) (test code = 3.7 meq/L 3.6-5.5 379) BLOOD GAS, [id number] 22:24:00 Test Item Value Reference Range Interpretation [...] (test code = 1819) 28.0 % CALCIUM, [id number] 22:23:00 Test Item Value Reference Range Interpretation Comments CALCIUM IONIZED (BEAKER) (test 1.21 mmol/L 1.12-1.27 code = 698) PH, BLOOD (BEAKER) (test code = 7.44 1810) POCT-GLUCOSE [id number] 17:12:00 Test Item Value Reference Range Interpretation Comments POC-GLUCOSE METER 199 mg/dL 70-110 H TESTED AT [facility] 6720 [facility] (test code = DAVE Bor[place] 1538) [address] POCT-GLUCOSE [id number] 12:12:00 Test Item Value Reference Range Interpretation Comments POC-GLUCOSE METER 184 mg/dL 70-110 H TESTED AT [facility] 6720 [facility] (test code = DAVE Borja [place] 1538) [address] POCT-GLUCOSE [id number] 08:49:00 Test Item Value Reference Range Interpretation Comments POC-GLUCOSE METER 195 mg/dL 70-110 H TESTED AT [facility] 6720 [facility] (test code = DAVE Borja [place] 1538) [address] RAD, CHEST, 1 VIEW, NON [id number] 08:36:00Reason for exam:->s/p CV surgeryShould this be [...] surgical changes.Additional findings: None. Signed: Cristo Posadas MDRepjamal Verified Date/Time: 08/08/2018 08:36:43 Reading Location: [address] Neuro Reading Room CBC W/PLT COUNT & AUTO [id number] 05:32:00 Test Item Value Reference Range Interpretation [...] 0-1 PERCENT (BEAKER) (test code = 2801) [id number] 05:14:00 Test Item Value Reference Range Interpretation Comments MAGNESIUM (BEAKER) (test code = 2.1 mg/dL 1.6-2.6 627) BASIC METABOLIC [id number] 05:14:00 Test Item Value Reference Range Interpretation [...] NOT APPLICABLE FOR DIALYSIS PATIEN TS. CALCIUM, [id number] 05:07:00 Test Item Value Reference Range Interpretation Comments CALCIUM IONIZED (BEAKER) (test 1.21 mmol/L 1.12-1.27 code = 698) PH, BLOOD (BEAKER) (test code = 7.42 1810) BLOOD GAS, [id number] 05:06:00 Test Item Value Reference Range Interpretation [...] code = 1819) 28.0 % LACTIC ACID, [id number] 05:01:00 Test Item Value Reference Range Interpretation Comments LACTATE BLOOD ARTERIAL (2) 1.0 mmol/L 0.5-2.2 (BEAKER) (test code = 2874) POCT-GLUCOSE [id number] 23:22:00 Test Item Value Reference Range Interpretation Comments POC-GLUCOSE METER 252 mg/dL 70-110 H TESTED AT [facility] 6720 (BEAKER) (test code = D[place] 1538) [address] LACTIC ACID, [id number] 19:42:00 Test Item Value Reference Range Interpretation Comments LACTATE BLOOD ARTERIAL (2) 1.6 mmol/L 0.5-2.2 (BEAKER) (test code = 2874) BLOOD GAS, [id number] 19:33:00 Test Item Value Reference Range Interpretation [...] code = 1819) 36.0 % LACTIC ACID, [id number] 16:37:00 Test Item Value Reference Range Interpretation Comments LACTATE BLOOD ARTERIAL (2) 2.6 mmol/L 0.5-2.2 H (BEAKER) (test code = 2874) BLOOD GAS, [id number] 16:21:00 Test Item Value Reference Range Interpretation [...] code = 1819) 36.0 % BLOOD GAS, [id number] 15:01:00 Test Item Value Reference Range Interpretation [...] code = 1819) 36.0 % OXYGEN SATURATION, [id number] 14:58:00 Test Item Value Reference Range Interpretation Comments O2 SATURATION (MEASURED) (BEAKER) 63.8 % (test code = 1455) LACTIC ACID, [id number] 08:57:00 Test Item Value Reference Range Interpretation Comments LACTATE BLOOD ARTERIAL (2) 0.9 mmol/L 0.5-2.2 (BEAKER) (test code = 2874) RAD, CHEST, 1 VIEW, NON [id number] 06:53:00Reason for exam:->s/p CV surgeryShould this be [...] right upper quadrant. Prior median sternotomy. Signed: Lisa Sheldon MDReport Verified Date/Time: 08/07/2018 06:53:26 Reading Location: [facility] B1 C013Y CT Body Reading Room Electronically signedby: LISA SHELDON MD on 08/07/2018 06:53 [id number] 04:25:00 Test Item Value Reference Range Interpretation Comments PHOSPHORUS (BEAKER) (test code = 2.6 mg/dL 2.3-4.7 604) [id number] 04:25:00 Test Item Value Reference Range Interpretation Comments MAGNESIUM (BEAKER) (test code = 1.9 mg/dL 1.6-2.6 627) BASIC METABOLIC [id number] 04:25:00 Test Item Value Reference Range Interpretation [...] 0-0 (BEAKER) (test code = 413) CALCIUM, [id number] 03:31:00 Test Item Value Reference Range Interpretation Comments CALCIUM IONIZED (BEAKER) (test 1.23 mmol/L 1.12-1.27 code = 698) PH, BLOOD (BEAKER) (test code = 7.40 1810) BLOOD GAS, [id number] 03:19:00 Test Item Value Reference Range Interpretation [...] (BEAKER) (test code = 1819) 32.0 % [id number] 22:08:00 Test Item Value Reference Range Interpretation Comments MAGNESIUM (BEAKER) (test code = 2.2 mg/dL 1.6-2.6 627) BLOOD GAS, [id number] 22:00:00 Test Item Value Reference Range Interpretation [...] (test code = 1819) 32.0 % GLUCOSE-STAT [id number] 22:00:00 Test Item Value Reference Range Interpretation Comments GLUCOSE RANDOM (BEAKER) (test code 187 mg/dL 70-110 H = 652) HGB/HCT (H&H) - STAT [id number] 22:00:00 Test Item Value Reference Range Interpretation Comments HEMOGLOBIN (BEAKER) (test code = 10.3 g/dL 12.0-15.0 L 410) HEMATOCRIT (BEAKER) (test code = 30.0 % 36.0-45.0 L 411) SODIUM NA-STAT [id number] 21:59:00 Test Item Value Reference Range Interpretation Comments SODIUM (BEAKER) (test code = 381) 137 meq/L 135-148 POTASSIUM-STAT [id number] 21:59:00 Test Item Value Reference Range Interpretation Comments POTASSIUM (BEAKER) (test code = 4.0 meq/L 3.6-5.5 379) OXYGEN SATURATION, [id number] 21:59:00 Test Item Value Reference Range Interpretation Comments O2 SATURATION (MEASURED) (BEAKER) 70.7 % (test code = 1455) CALCIUM, [id number] 21:59:00 Test Item Value Reference Range Interpretation Comments CALCIUM IONIZED (BEAKER) (test 1.23 mmol/L 1.12-1.27 code = 698) PH, BLOOD (BEAKER) (test code = 7.41 1810) POCT-GLUCOSE [id number] 17:02:00 Test Item Value Reference Range Interpretation Comments POC-GLUCOSE METER 223 mg/dL 70-110 H TESTED AT [place] [address] (BEAKER) (test code = DAVE Borja [place] 1538) [address] POCT-GLUCOSE [id number] 12:13:00 Test Item Value Reference Range Interpretation Comments POC-GLUCOSE METER 109 mg/dL 70-110 TESTED AT [place] [address] [facility] (test code = DAVE Borja [place] 1538) [address] POCT-GLUCOSE [id number] 10:41:00 Test Item Value Reference Range Interpretation Comments POC-GLUCOSE METER 105 mg/dL 70-110 TESTED AT [place] [address] ([facility]) (test code = DAVE Borja [place] 1538) [address] COMPREHENSIVE METABOLIC [id number] 09:37:00 Test Item Value Reference Range Interpretation [...] APPLICABLE FOR DIALYSIS PATIEN TS. BLOOD GAS, [id number] 08:39:00 Test Item Value Reference Range Interpretation [...] 40.0 % RAD, CHEST, 1 VIEW, NON [id number] 07:24:00Reason for exam:->s/p CV surgeryShould this be [...] MDReport Verified Date/Time: 08/06/2018 07:24:21 Reading Location: [facility] Radiology ReadingRoom POCT-GLUCOSE [id number] 06:19:00 Test Item Value Reference Range Interpretation Comments POC-GLUCOSE METER 157 mg/dL 70-110 H TESTED AT [facility] 6720 (BEAKER) (test code = DAVE Borja [place] 1538) [address] POCT-GLUCOSE [id number] 06:19:00 Test Item Value Reference Range Interpretation Comments POC-GLUCOSE METER 162 mg/dL 70-110 H TESTED AT [place] [address] (BEAKER) (test code = DAVE Borja [place] 1538) [address] POCT-GLUCOSE [id number] 06:18:00 Test Item Value Reference Range Interpretation Comments POC-GLUCOSE METER 120 mg/dL 70-110 H TESTED AT [facility] 67 (BEAKER) (test code = DAVE Borja [place] 1538) [address] [id number] 04:49:00 Test Item Value Reference Range Interpretation [...] than or equal to 2 mg/dL.BASIC METABOLIC [id number] 04:49:00 Test Item Value Reference Range Interpretation [...] than or equal to 2 mg/dL.LACTIC ACID, [id number] 04:44:00 Test Item Value Reference Range Interpretation [...] (BEAKER) (test code = 413) OXYGEN SATURATION, [id number] 04:32:00 Test Item Value Reference Range Interpretation Comments O2 SATURATION (MEASURED) (BEAKER) 69.8 % (test code = 1455) CALCIUM, [id number] 04:28:00 Test Item Value Reference Range Interpretation Comments CALCIUM IONIZED (BEAKER) (test 1.19 mmol/L 1.12-1.27 code = 698) PH, BLOOD (BEAKER) (test code = 7.41 1810) BLOOD GAS, [id number] 04:27:00 Test Item Value Reference Range Interpretation [...] (test code = 1819) 40.0 % POCT-GLUCOSE [id number] 02:20:00 Test Item Value Reference Range Interpretation Comments POC-GLUCOSE METER 165 mg/dL 70-110 H TESTED AT [place] [address] ([facility] (test code = D[place] 1538) [address] POCT-GLUCOSE [id number] 02:20:00 Test Item Value Reference Range Interpretation Comments POC-GLUCOSE METER 180 mg/dL 70-110 H TESTED AT [place] [id number] ([facility] (test code = DAVE [place] 1538) [address] POCT-GLUCOSE [id number] 02:20:00 Test Item Value Reference Range Interpretation Comments POC-GLUCOSE METER 191 mg/dL 70-110 H TESTED AT [facility] 6720 ([facility] (test code = D[place] 1538) [address] CALCIUM, [id number] 00:05:00 Test Item Value Reference Range Interpretation Comments CALCIUM IONIZED (BEAKER) (test 1.19 mmol/L 1.12-1.27 code = 698) PH, BLOOD (BEAKER) (test code = 7.37 1810) LACTIC ACID, [id number] 00:05:00 Test Item Value Reference Range Interpretation Comments LACTATE BLOOD 4.1 mmol/L 0.5-2.2 H Specimen sligh tly ARTERIAL (2) (BEAKER) hemoly zed (test code = 2874) BLOOD GAS, [id number] 00:04:00 Test Item Value Reference Range Interpretation [...] (test code = 1819) 40.0 % GLUCOSE-STAT [id number] 00:04:00 Test Item Value Reference Range Interpretation Comments GLUCOSE RANDOM (BEAKER) (test code 173 mg/dL 70-110 H = 652) HGB/HCT (H&H) - STAT [id number] 00:04:00 Test Item Value Reference Range Interpretation Comments HEMOGLOBIN (BEAKER) (test code = 8.6 g/dL 12.0-15.0 L 410) HEMATOCRIT (BEAKER) (test code = 25.0 % 36.0-45.0 L 411) [id number] 00:02:00 Test Item Value Reference Range Interpretation Comments MAGNESIUM (BEAKER) (test code = 2.4 mg/dL 1.6-2.6 627) Check Serum Magnesium level 2 hours after IV magnesium replacement.SODIUM NA- STAT [id number] 00:00:00 Test Item Value Reference Range Interpretation Comments SODIUM (BEAKER) (test code = 381) 137 meq/L 135-148 POTASSIUM-STAT [id number] 00:00:00 Test Item Value Reference Range Interpretation Comments POTASSIUM (BEAKER) (test code = 4.1 meq/L 3.6-5.5 379) POCT-GLUCOSE [id number] 22:43:00 Test Item Value Reference Range Interpretation Comments POC-GLUCOSE METER 182 mg/dL 70-110 H TESTED AT [facility] 67 ([facility] (test code = ZAIRERI Huong [facility] 1538) [address] POCT-GLUCOSE [id number] 22:43:00 Test Item Value Reference Range Interpretation Comments POC-GLUCOSE METER 174 mg/dL 70-110 H TESTED AT [place] [address] ([facility]) (test code = [facility] 1538) [address] POCT-GLUCOSE [id number] 22:43:00 Test Item Value Reference Range Interpretation Comments POC-GLUCOSE METER 150 mg/dL 70-110 H TESTED AT [place] [address] ([facility]) (test code = [facility] 1538) [address] CALCIUM, [id number] 19:54:00 Test Item Value Reference Range Interpretation Comments CALCIUM IONIZED (BEAKER) (test 1.16 mmol/L 1.12-1.27 code = 698) PH, BLOOD (BEAKER) (test code = 7.39 1810) LACTIC ACID, [id number] 19:40:00 Test Item Value Reference Range Interpretation Comments LACTATE BLOOD ARTERIAL (2) 2.3 mmol/L 0.5-2.2 H (BEAKER) (test code = 2874) [id number] 19:38:00 Test Item Value Reference Range Interpretation Comments MAGNESIUM (BEAKER) (test code = 2.2 mg/dL 1.6-2.6 627) SODIUM NA-STAT [id number] 19:24:00 Test Item Value Reference Range Interpretation Comments SODIUM (BEAKER) (test code = 381) 135 meq/L 135-148 POTASSIUM-STAT [id number] 19:24:00 Test Item Value Reference Range Interpretation Comments POTASSIUM (BEAKER) (test code = 3.7 meq/L 3.6-5.5 379) BLOOD GAS, [id number] 19:24:00 Test Item Value Reference Range Interpretation [...] (test code = 1819) 40.0 % GLUCOSE-STAT [id number] 19:24:00 Test Item Value Reference Range Interpretation Comments GLUCOSE RANDOM (BEAKER) (test code 163 mg/dL 70-110 H = 652) HGB/HCT (H&H) - STAT [id number] 19:24:00 Test Item Value Reference Range Interpretation Comments HEMOGLOBIN (BEAKER) (test code = 9.5 g/dL 12.0-15.0 L 410) HEMATOCRIT (BEAKER) (test code = 28.0 % 36.0-45.0 L 411) OXYGEN SATURATION, [id number] 19:23:00 Test Item Value Reference Range Interpretation Comments O2 SATURATION (MEASURED) (BEAKER) 73.8 % (test code = 1455) POCT-GLUCOSE [id number] 17:19:00 Test Item Value Reference Range Interpretation Comments POC-GLUCOSE METER 128 mg/dL 70-110 H TESTED AT [facility] 6720 (BEAKER) (test code = [place] 1538) [address] OXYGEN SATURATION, [id number] 17:19:00 Test Item Value Reference Range Interpretation Comments O2 SATURATION (MEASURED) (BEAKER) 60.6 % (test code = 1455) POCT-GLUCOSE [id number] 17:19:00 Test Item Value Reference Range Interpretation Comments POC-GLUCOSE METER 158 mg/dL 70-110 H TESTED AT [facility] 6720 (BEAKER) (test code = [place] 1538) [address] LACTIC ACID, [id number] 17:01:00 Test Item Value Reference Range Interpretation Comments LACTATE BLOOD ARTERIAL (2) 1.5 mmol/L 0.5-2.2 (BEAKER) (test code = 2874) HEMOGLOBIN AND [id number] 16:49:00 Test Item Value Reference Range Interpretation Comments HEMOGLOBIN (BEAKER) (test code = 8.8 GM/DL 11.2-15.7 L 410) HEMATOCRIT (BEAKER) (test code = 26.5 % 34.1-44.9 L 411) POCT-GLUCOSE [id number] 16:31:00 Test Item Value Reference Range Interpretation Comments POC-GLUCOSE METER 191 mg/dL 70-110 H TESTED AT [facility] 6720 (BEAKER) (test code = [place] 1538) [address] BLOOD GAS, [id number] 16:26:00 Test Item Value Reference Range Interpretation [...] (BEAKER) (test code = 1819) 40.0 % [id number] 13:48:00 Test Item Value Reference Range Interpretation Comments MAGNESIUM (BEAKER) 2.2 mg/dL 1.6-2.6 Specimen slightly (test code = 627) hemolyzed [id number] 13:48:00 Test Item Value Reference Range Interpretation Comments PHOSPHORUS (BEAKER) 4.2 mg/dL 2.3-4.7 Specimen slightly (test code = 604) hemolyzed BASIC METABOLIC [id number] 13:48:00 Test Item Value Reference Range Interpretation [...] APPLICABLE FOR DIALYSIS PATIEN TS. LACTIC ACID, [id number] 13:42:00 Test Item Value Reference Range Interpretation Comments LACTATE BLOOD 1.1 mmol/L 0.5-2.2 Specimen sligh tly ARTERIAL (2) (BEAKER) hemoly zed (test code = 2874) RAD, CHEST, 1 VIEW, NON [id number] 13:35:00Reason for exam:->POST OPShould this be performed [...] port Verified Date/Time: 08/05/2018 13:35:26 Reading Location: [facility] Radiology Reading Room CBC W/PLT COUNT & AUTO [id number] 13:33:00 Test Item Value Reference Range Interpretation [...] (BEAKER) (test code = 2801) BLOOD GAS, [id number] 13:27:00 Test Item Value Reference Range Interpretation [...] code = 1819) 60.0 % OXYGEN SATURATION, [id number] 13:21:00 Test Item Value Reference Range Interpretation Comments O2 SATURATION (MEASURED) (BEAKER) 64.2 % (test code = 1455) [id number] 12:22:00 Test Item Value Reference Range Interpretation Comments FIBRINOGEN LEVEL (BEAKER) (test 225 mg/dl 225-434 code = 658) [id number] 12:22:00 Test Item Value Reference Range Interpretation Comments PARTIAL THROMBOPLASTIN TIME 33.4 seconds 22.5-36.0 (BEAKER) (test code = 760) PROTHROMBIN [id number] 12:21:00 Test Item Value Reference Range Interpretation [...] 0-0 H (BEAKER) (test code = 413) [id number] 11:30:00 Test Item Value Reference Range Interpretation Comments ACTIVATED CLOTTING TIME 109 sec TEST ED AT [place] [address] ([facility]) (test code = [place] [address]) [id number] 11:30:00 Test Item Value Reference Range Interpretation Comments ACTIVATED CLOTTING TIME 433 sec TEST ED AT [place] [address] ([facility]) (test code = [place] [address]) [address] [id number] 11:30:00 Test Item Value Reference Range Interpretation Comments ACTIVATED CLOTTING TIME 532 sec TEST ED AT [place] [address] ([facility]) (test code = [place] [address]) [address] [id number] 11:30:00 Test Item Value Reference Range Interpretation Comments ACTIVATED CLOTTING TIME 648 sec TEST ED AT [place] [address] ([facility]) (test code = [place] [facility]) [id number] [id number] 11:30:00 Test Item Value Reference Range Interpretation Comments ACTIVATED CLOTTING TIME 483 sec TEST ED AT [place] [address] ([facility]) (test code = [place] [address]) [address] [id number] 11:30:00 Test Item Value Reference Range Interpretation Comments ACTIVATED CLOTTING TIME 395 sec TEST ED AT [place] [address] ([facility]) (test code = [place] [address]) [address] CALCIUM, [id number] 11:21:00 Test Item Value Reference Range Interpretation Comments CALCIUM IONIZED (BEAKER) (test 1.31 mmol/L 1.12-1.27 H code = 698) PH, BLOOD (BEAKER) (test code = 7.38 1810) BLOOD GAS, [id number] 11:21:00 Test Item Value Reference Range Interpretation [...] code = 1819) 100.0 % SODIUM NA-STAT [id number] 11:21:00 Test Item Value Reference Range Interpretation Comments SODIUM (BEAKER) (test code = 381) 134 meq/L 135-148 L GLUCOSE-STAT [id number] 11:21:00 Test Item Value Reference Range Interpretation Comments GLUCOSE RANDOM (BEAKER) (test code 185 mg/dL 70-110 H = 652) HGB/HCT (H&H) - STAT [id number] 11:21:00 Test Item Value Reference Range Interpretation Comments HEMOGLOBIN (BEAKER) (test code = 8.6 g/dL 12.0-15.0 L 410) HEMATOCRIT (BEAKER) (test code = 25.0 % 36.0-45.0 L 411) POTASSIUM-STAT [id number] 11:20:00 Test Item Value Reference Range Interpretation Comments POTASSIUM (BEAKER) (test code = 3.8 meq/L 3.6-5.5 379) POTASSIUM-STAT [id number] 10:50:00 Test Item Value Reference Range Interpretation Comments POTASSIUM (BEAKER) (test code = 4.7 meq/L 3.6-5.5 379) BLOOD GAS, [id number] 10:50:00 Test Item Value Reference Range Interpretation [...] code = 1819) 65.0 % SODIUM NA-STAT [id number] 10:50:00 Test Item Value Reference Range Interpretation Comments SODIUM (BEAKER) (test code = 381) 132 meq/L 135-148 L GLUCOSE-STAT [id number] 10:50:00 Test Item Value Reference Range Interpretation Comments GLUCOSE RANDOM (BEAKER) (test code 185 mg/dL 70-110 H = 652) HGB/HCT (H&H) - STAT [id number] 10:50:00 Test Item Value Reference Range Interpretation Comments HEMOGLOBIN (BEAKER) (test code = 9.2 g/dL 12.0-15.0 L 410) HEMATOCRIT (BEAKER) (test code = 27.0 % 36.0-45.0 L 411) POTASSIUM-STAT [id number] 10:23:00 Test Item Value Reference Range Interpretation Comments POTASSIUM (BEAKER) (test code = 5.2 meq/L 3.6-5.5 379) BLOOD GAS, [id number] 10:23:00 Test Item Value Reference Range Interpretation [...] (test code = 1819) 65.0 % GLUCOSE-STAT [id number] 10:23:00 Test Item Value Reference Range Interpretation Comments GLUCOSE RANDOM (BEAKER) (test code 170 mg/dL 70-110 H = 652) HGB/HCT (H&H) - STAT [id number] 10:23:00 Test Item Value Reference Range Interpretation Comments HEMOGLOBIN (BEAKER) (test code = 8.9 g/dL 12.0-15.0 L 410) HEMATOCRIT (BEAKER) (test code = 26.0 % 36.0-45.0 L 411) SODIUM NA-STAT [id number] 10:23:00 Test Item Value Reference Range Interpretation Comments SODIUM (BEAKER) (test code = 381) 132 meq/L 135-148 L BLOOD GAS, [id number] 09:58:00 Test Item Value Reference Range Interpretation [...] code = 1819) 60.0 % SODIUM NA-STAT [id number] 09:58:00 Test Item Value Reference Range Interpretation Comments SODIUM (BEAKER) (test code = 381) 132 meq/L 135-148 L GLUCOSE-STAT [id number] 09:58:00 Test Item Value Reference Range Interpretation Comments GLUCOSE RANDOM (BEAKER) (test code 160 mg/dL 70-110 H = 652) HGB/HCT (H&H) - STAT [id number] 09:58:00 Test Item Value Reference Range Interpretation Comments HEMOGLOBIN (BEAKER) (test code = 8.9 g/dL 12.0-15.0 L 410) HEMATOCRIT (BEAKER) (test code = 26.0 % 36.0-45.0 L 411) POTASSIUM-STAT [id number] 09:56:00 Test Item Value Reference Range Interpretation Comments POTASSIUM (BEAKER) (test code = 4.8 meq/L 3.6-5.5 379) BLOOD GAS, [id number] 09:29:00 Test Item Value Reference Range Interpretation [...] code = 1819) 80.0 % SODIUM NA-STAT [id number] 09:29:00 Test Item Value Reference Range Interpretation Comments SODIUM (BEAKER) (test code = 381) 131 meq/L 135-148 L GLUCOSE-STAT [id number] 09:29:00 Test Item Value Reference Range Interpretation Comments GLUCOSE RANDOM (BEAKER) (test code 180 mg/dL 70-110 H = 652) HGB/HCT (H&H) - STAT [id number] 09:29:00 Test Item Value Reference Range Interpretation Comments HEMOGLOBIN (BEAKER) (test code = 7.1 g/dL 12.0-15.0 L 410) HEMATOCRIT (BEAKER) (test code = 21.0 % 36.0-45.0 L 411) POTASSIUM-STAT [id number] 09:28:00 Test Item Value Reference Range Interpretation Comments POTASSIUM (BEAKER) (test code = 5.1 meq/L 3.6-5.5 379) CALCIUM, [id number] 08:02:00 Test Item Value Reference Range Interpretation Comments CALCIUM IONIZED (BEAKER) (test 1.14 mmol/L 1.12-1.27 code = 698) PH, BLOOD (BEAKER) (test code = 7.54 1810) BLOOD GAS, [id number] 08:02:00 Test Item Value Reference Range Interpretation [...] code = 1819) 100.0 % SODIUM NA-STAT [id number] 08:02:00 Test Item Value Reference Range Interpretation Comments SODIUM (BEAKER) (test code = 381) 134 meq/L 135-148 L HGB/HCT (H&H) - STAT [id number] 08:02:00 Test Item Value Reference Range Interpretation Comments HEMOGLOBIN (BEAKER) (test code = 11.2 g/dL 12.0-15.0 L 410) HEMATOCRIT (BEAKER) (test code = 33.0 % 36.0-45.0 L 411) GLUCOSE-STAT [id number] 08:01:00 Test Item Value Reference Range Interpretation Comments GLUCOSE RANDOM (BEAKER) (test code 106 mg/dL 70-110 = 652) POTASSIUM-STAT [id number] 08:01:00 Test Item Value Reference Range Interpretation Comments POTASSIUM (BEAKER) (test code = 3.8 meq/L 3.6-5.5 379) POCT-GLUCOSE [id number] 05:58:00 Test Item Value Reference Range Interpretation Comments POC-GLUCOSE METER 114 mg/dL 70-110 H TESTED AT [place] [address] ([facility]) (test code = [facility] 1538) [address] TISSUE [id number] 15:29:00Surgical Pathology Report Case: [id number] Authorizing Provider: Sabas Aquino, Collected: 07/28/2018 141Lacie SMITH Ordering Location: [facility] Received: 07/28/2018 1614 PERIOPERATIVE SERVICES Pathologist: Alvaro Chavez MD Specimen: Plaque, Carotid PART A RIGHT CAROTIDPLAQUE, ENDARTERECTOMY:CALCIFIC ATHEROSCLEROSIS. Signing Pathologist Direct Phone Line: [phone] signed by Alvaro Chavez MD on 08/02/2018 at 3:29 [id number], [id number] stenosis, rightRight carotidA. Received in formalin labeled "carotid" a 3 x 1.3 x 1 cm foreman-pink vascular segment. Foreman- yellow and calcified plaque is identified. Certified Medication Aide sections are submitted in cassette A1 following decalcification. CG/pl Performed.POCT-GLUCOSE METER 2018-07-31 16:25:00 Test Item Value Reference Range Interpretation Comments POC-GLUCOSE METER 173 mg/dL 70-110 H TESTED AT [place] [address] ([facility]) (test code = [facility] 1538) [address] POCT-GLUCOSE [id number] 12:08:00 Test Item Value Reference Range Interpretation Comments POC-GLUCOSE METER 194 mg/dL 70-110 H TESTED AT [facility] 6720 (BEAKER) (test code = [place] 1538) [address] POCT-GLUCOSE [id number] 07:15:00 Test Item Value Reference Range Interpretation Comments POC-GLUCOSE METER 228 mg/dL 70-110 H TESTED AT [facility] 6720 (BEAKER) (test code = [place] 1538) [address] CBC W/PLT COUNT & AUTO [id number] 06:14:00 Test Item Value Reference Range Interpretation [...] PERCENT (BEAKER) (test code = 2801) CALCIUM, [id number] 05:52:00 Test Item Value Reference Range Interpretation Comments CALCIUM IONIZED (BEAKER) (test 1.24 mmol/L 1.12-1.27 code = 698) PH, BLOOD (BEAKER) (test code = 7.40 1810) POCT-GLUCOSE [id number] 22:03:00 Test Item Value Reference Range Interpretation Comments POC-GLUCOSE METER 217 mg/dL 70-110 H TESTED AT [facility] 67[address] [facility] (test code = [facility] [place] [facility] 1538) [address] POCT-GLUCOSE [id number] 17:53:00 Test Item Value Reference Range Interpretation Comments POC-GLUCOSE METER 252 mg/dL 70-110 H TESTED AT [facility] 6720 ([facility]) (test code = [facility] [place] [facility] 1538) [address] RAD, ABDOMEN/KUB, 1 VIEW [id number] 15:31:00Reason for exam:->nauseaFINAL REPORT EXAM: Frontal chest [...] in the right upper quadrant. Signed: Gurmeet Velazcoeport Verified Date/Time: 07/30/2018 15:31:29 Reading Location: [facility] Women Electronically signed by: GURMEET VELAZCO on 03:31 PMPOCT-GLUCOSE [id number] 12:34:00 Test Item Value Reference Range Interpretation Comments POC-GLUCOSE METER 244 mg/dL 70-110 H TESTED AT [facility] 6720 (BEAKER) (test code = [place] [facility] 1538) [address] POCT-GLUCOSE [id number] 09:16:00 Test Item Value Reference Range Interpretation Comments POC-GLUCOSE METER 237 mg/dL 70-110 H TESTED AT [facility] 6720 (BEAKER) (test code = [place] [facility] 1538) [address] CALCIUM, [id number] 06:24:00 Test Item Value Reference Range Interpretation Comments CALCIUM IONIZED (BEAKER) (test 1.22 mmol/L 1.12-1.27 code = 698) PH, BLOOD (BEAKER) (test code = 7.39 1810) [id number] 05:34:00 Test Item Value Reference Range Interpretation Comments PHOSPHORUS (BEAKER) (test code = 2.4 mg/dL 2.3-4.7 604) [id number] 05:34:00 Test Item Value Reference Range Interpretation Comments MAGNESIUM (BEAKER) (test code = 1.5 mg/dL 1.6-2.6 L 627) BASIC METABOLIC [id number] 05:34:00 Test Item Value Reference Range Interpretation [...] PATIEN TS. CBC W/PLT COUNT & AUTO [id number] 05:27:00 Test Item Value Reference Range Interpretation [...] LYMPHOCYTES ABSOLUTE COUNT 1.95 K/ L 1.18-3.74 (BEAKER) (test code = 414) MONOCYTES ABSOLUTE COUNT (BEAKER) 1.18 K/ L 0.24-0.36 H (test code = 415) EOSINOPHILS ABSOLUTE COUNT 0.05 K/ L 0.04-0.36 ([facility]) (test code = 416) BASOPHILS ABSOLUTE COUNT ([facility]) 0.04 K/ L 0.01-0.08 (test code = 417) IMMATURE GRANULOCYTES-RELATIVE 1 % 0-1 PERCENT ([facility]) (test code = 2801) POCT-GLUCOSE [id number] 21:42:00 Test Item Value Reference Range Interpretation Comments POC-GLUCOSE METER 186 mg/dL 70-110 H TESTED AT [place] [address] ([facility]) (test code = [facility] [place] [facility] 1538) [address] POCT-GLUCOSE [id number] 18:04:00 Test Item Value Reference Range Interpretation Comments POC-GLUCOSE METER 162 mg/dL 70-110 H TESTED AT [place] [address] ([facility]) (test code = [facility] [place] [facility] 1538) [address] POCT-GLUCOSE [id number] 13:39:00 Test Item Value Reference Range Interpretation Comments POC-GLUCOSE METER 109 mg/dL 70-110 TESTED AT [place] [address] ([facility]) (test code = [facility] [place] [facility] 1538) [address] POCT-GLUCOSE [id number] 13:39:00 Test Item Value Reference Range Interpretation Comments POC-GLUCOSE METER 169 mg/dL 70-110 H TESTED AT [place] [address] ([facility]) (test code = [facility] [place] [facility] 1538) [address] POCT-GLUCOSE [id number] 13:39:00 Test Item Value Reference Range Interpretation Comments POC-GLUCOSE METER 202 mg/dL 70-110 H TESTED AT [place] [address] ([facility]) (test code = [facility] [place] [facility] 1538) [address] POCT-GLUCOSE [id number] 12:28:00 Test Item Value Reference Range Interpretation Comments POC-GLUCOSE METER 175 mg/dL 70-110 H TESTED AT [place] [address] ([facility]) (test code = [facility] [place] [facility] 1538) [address] POCT-GLUCOSE [id number] 10:45:00 Test Item Value Reference Range Interpretation Comments POC-GLUCOSE METER 181 mg/dL 70-110 H TESTED AT [place] [address] ([facility]) (test code = [facility] [place] [facility] 1538) [address] POCT-GLUCOSE [id number] 09:08:00 Test Item Value Reference Range Interpretation Comments POC-GLUCOSE METER 90 mg/dL 70-110 TESTED AT [facility] 6720 (BEAKER) (test code = [place] [facility] [address] 1538) POCT-GLUCOSE [id number] 09:08:00 Test Item Value Reference Range Interpretation Comments POC-GLUCOSE METER 78 mg/dL 70-110 TESTED AT [facility] 6720 [facility] (test code = [place] [facility] [address] 1538) RAD, CHEST, 1 VIEW, NON [id number] 07:37:00Reason for exam:->POST OPShould this be performed at the bedside?->YesFINAL REPORT CLINICAL HISTORY: POST OP TECHNIQUE: 1 view of the chest. COMPARISON: 07/28/2018 IMPRESSION: There are increased bilateral airspace opacities with suspected trace bilateral pleural effusions. The cardiomediastinal silhouette is magnified by technique. Signed: Annamaria Vargas [facility] Verified Date/Time: 07/29/2018 07:37:56 Reading Location: [facility] Radiology Reading Room PHOSPHORUS 2018-07-29 07:21:00 Test Item Value Reference Range Interpretation Comments PHOSPHORUS (BEAKER) (test code = 2.9 mg/dL 2.3-4.7 604) [id number] 07:21:00 Test Item Value Reference Range Interpretation Comments MAGNESIUM (BEAKER) (test code = 2.0 mg/dL 1.6-2.6 627) BASIC METABOLIC [id number] 07:21:00 Test Item Value Reference Range Interpretation [...] APPLICABLE FOR DIALYSIS PATIEN TS. BLOOD GAS, [id number] 06:00:00 Test Item Value Reference Range Interpretation [...] 44.0 % CBC W/PLT COUNT & AUTO [id number] 04:44:00 Test Item Value Reference Range Interpretation [...] (BEAKER) (test code = 2801) BLOOD GAS, [id number] 04:28:00 Test Item Value Reference Range Interpretation [...] (test code = 1819) 36.0 % CALCIUM, [id number] 04:27:00 Test Item Value Reference Range Interpretation Comments CALCIUM IONIZED (BEAKER) (test 1.22 mmol/L 1.12-1.27 code = 698) PH, BLOOD (BEAKER) (test code = 7.41 1810) POCT-GLUCOSE [id number] 01:35:00 Test Item Value Reference Range Interpretation Comments POC-GLUCOSE METER 220 mg/dL 70-110 H TESTED AT [place] [address] (BEAKER) (test code = [place] [facility] 1538) [address] POCT-GLUCOSE [id number] 01:35:00 Test Item Value Reference Range Interpretation Comments POC-GLUCOSE METER 258 mg/dL 70-110 H TESTED AT [place] [address] (BEAKER) (test code = [place] 1538) [address] POCT-GLUCOSE [id number] 01:35:00 Test Item Value Reference Range Interpretation Comments POC-GLUCOSE METER 263 mg/dL 70-110 H TESTED AT [place] [address] (BEAKER) (test code = [facility] [place] [facility] 1538) [address] HGB/HCT (H&H) - STAT [id number] 01:24:00 Test Item Value Reference Range Interpretation Comments HEMOGLOBIN (BEAKER) (test code = 11.8 g/dL 12.0-15.0 L 410) HEMATOCRIT (BEAKER) (test code = 35.0 % 36.0-45.0 L 411) BLOOD GAS, [id number] 01:24:00 Test Item Value Reference Range Interpretation [...] code = 1819) 36.0 % SODIUM NA-STAT [id number] 01:24:00 Test Item Value Reference Range Interpretation Comments SODIUM (BEAKER) (test code = 381) 134 meq/L 135-148 L GLUCOSE-STAT [id number] 01:24:00 Test Item Value Reference Range Interpretation Comments GLUCOSE RANDOM (BEAKER) (test code 195 mg/dL 70-110 H = 652) POTASSIUM-STAT [id number] 01:22:00 Test Item Value Reference Range Interpretation Comments POTASSIUM (BEAKER) (test code = 4.9 meq/L 3.6-5.5 379) POCT-GLUCOSE [id number] 22:27:00 Test Item Value Reference Range Interpretation Comments POC-GLUCOSE METER 235 mg/dL 70-110 H TESTED AT [facility] 6720 (BEAKER) (test code = [place] 1538) [address] LACTIC ACID, [id number] 21:01:00 Test Item Value Reference Range Interpretation Comments LACTATE BLOOD 0.9 mmol/L 0.5-2.2 Specimen sligh tly ARTERIAL (2) (BEAKER) hemoly zed (test code = 2874) [id number] 20:58:00 Test Item Value Reference Range Interpretation Comments MAGNESIUM (BEAKER) 2.4 mg/dL 1.6-2.6 Specimen slightly (test code = 627) hemolyzed BLOOD GAS, [id number] 20:23:00 Test Item Value Reference Range Interpretation [...] (test code = 1819) 26.0 % GLUCOSE-STAT [id number] 20:23:00 Test Item Value Reference Range Interpretation Comments GLUCOSE RANDOM (BEAKER) (test code 223 mg/dL 70-110 H = 652) SODIUM NA-STAT [id number] 20:21:00 Test Item Value Reference Range Interpretation Comments SODIUM (BEAKER) (test code = 381) 136 meq/L 135-148 POTASSIUM-STAT [id number] 20:21:00 Test Item Value Reference Range Interpretation Comments POTASSIUM (BEAKER) (test code = 4.1 meq/L 3.6-5.5 379) HGB/HCT (H&H) - STAT [id number] 20:21:00 Test Item Value Reference Range Interpretation Comments HEMOGLOBIN (BEAKER) (test code = 12.2 g/dL 12.0-15.0 410) HEMATOCRIT (BEAKER) (test code = 36.0 % 36.0-45.0 411) CALCIUM, [id number] 20:21:00 Test Item Value Reference Range Interpretation Comments CALCIUM IONIZED (BEAKER) (test 1.25 mmol/L 1.12-1.27 code = 698) PH, BLOOD (BEAKER) (test code = 7.34 1810) RAD, CHEST, 1 VIEW, NON [id number] 18:36:00Reason for exam:->POST OPShould this be performed [...] MDReport Verified Date/Time: 07/28/2018 18:36:16 Reading Location: [facility] C0[facility] Consult Reading Room POCT-GLUCOSE [id number] 16:38:00 Test Item Value Reference Range Interpretation Comments POC-GLUCOSE METER 215 mg/dL 70-110 H TESTED AT [facility] 6720 (BEAKER) (test code = [place] 1538) [address] [id number] 15:42:00 Test Item Value Reference Range Interpretation Comments PHOSPHORUS (BEAKER) (test code = 3.5 mg/dL 2.3-4.7 604) [id number] 15:42:00 Test Item Value Reference Range Interpretation Comments MAGNESIUM (BEAKER) (test code = 1.3 mg/dL 1.6-2.6 L 627) BASIC METABOLIC [id number] 15:42:00 Test Item Value Reference Range Interpretation [...] APPLICABLE FOR DIALYSIS PATIEN TS. LACTIC ACID, [id number] 15:38:00 Test Item Value Reference Range Interpretation Comments LACTATE BLOOD 1.3 mmol/L 0.5-2.2 Specimen sligh tly ARTERIAL (2) (BEAKER) hemoly zed (test code = 2874) [id number] 15:36:00 Test Item Value Reference Range Interpretation [...] PERCENT (BEAKER) (test code = 2801) GLUCOSE-STAT [id number] 15:33:00 Test Item Value Reference Range Interpretation Comments GLUCOSE RANDOM (BEAKER) (test code 231 mg/dL 70-110 H = 652) BLOOD GAS, [id number] 15:31:00 Test Item Value Reference Range Interpretation [...] code = 1819) 44.0 % SODIUM NA-STAT [id number] 15:31:00 Test Item Value Reference Range Interpretation Comments SODIUM (BEAKER) (test code = 381) 135 meq/L 135-148 POTASSIUM-STAT [id number] 15:31:00 Test Item Value Reference Range Interpretation Comments POTASSIUM (BEAKER) (test code = 4.0 meq/L 3.6-5.5 379) HGB/HCT (H&H) - STAT [id number] 15:31:00 Test Item Value Reference Range Interpretation Comments HEMOGLOBIN (BEAKER) (test code = 12.2 g/dL 12.0-15.0 410) HEMATOCRIT (BEAKER) (test code = 36.0 % 36.0-45.0 411) [id number] 08:00:00 Test Item Value Reference Range Interpretation Comments MAGNESIUM (BEAKER) (test code = 1.9 mg/dL 1.6-2.6 627) BASIC METABOLIC [id number] 08:00:00 Test Item Value Reference Range Interpretation [...] PATIEN TS. CBC W/PLT COUNT & AUTO [id number] 07:23:00 Test Item Value Reference Range Interpretation [...] PERCENT (BEAKER) (test code = 2801) HEMOGLOBIN [id number] 23:04:00 Test Item Value Reference Range Interpretation Comments HEMOGLOBIN A1C (BEAKER) (test code = 7.7 % 4.3-6.1 H 368) POCT-GLUCOSE [id number] 23:03:00 Test Item Value Reference Range Interpretation Comments POC-GLUCOSE METER 261 mg/dL 70-110 H TESTED AT [facility] 6720 (BEAKER) (test code = [place] 0918) [address] COMPREHENSIVE METABOLIC [id number] 21:58:00 Test Item Value Reference Range Interpretation [...] PATIEN TS. CBC W/PLT COUNT & AUTO [id number] 21:33:00 Test Item Value Reference Range Interpretation [...] 0-1 PERCENT (BEAKER) (test code = 2801) [id number] 06:54:0011.1[facility] FgloiycKTHNCZHTKC9693-65-18 06:54:00 43.8[facility] KbdkzexNRLCXPWYVL9365-09-54 06:54:0014.2[facility]annHEMATOLOGY 2014-11-09 06:54:004.93[facility] ImipnxtHXVOTB2472-09-24 06:54:0028[facility] DgflcjkRONZAZ2678-56-40 06:54:53144Pdxkmrkm DwsbkqgEANXNF2009-68-43 06:54:0050 [facility] HfbkohpGLJOLH1333-93-84 06:54:30647Guoaoixx KfawqhrIXDXGP9071-40-45 06:54:004.22[facility] WtxqycoGEYYZF4220-60-27 06:54:75552Wsblmmfw HermannSPECIAL XGNAPSWCW5827-80-26 06:54:009.1[facility] HermannTHYROID [id number] 06:54:00 1.850[facility] HermannCHEM [id number] 06:54:0056[facility] HermannCHEM PANEL 2014-11-09 06:54:000.3[facility] HermannCHEM [id number] 06:54:0037[facility] HermannCHEM [id number] 06:54:0025[facility] HermannCHEM [id number] 06:54:0071[facility] HermannCHEM PCHPL5062-30-64 06:54:0025[facility] HermannCHEM [id number] 06:54:008.8[facility] HermannCHEM BKAPG2171-20-99 06:54:006.8 [facility]annCHEM [id number] 06:54:003.0[facility] HermannCHEM PANEL 2014-11-09 06:54:96520Scwttmax HermannCHEM [id number] 06:54:74508Mujdgwyz HermannCHEM EWLCB1789-20-36 06:54:003.6[facility] HermannCHEM XHQMY4869-05-37 06:54:0025[facility] HermannCHEM [id number] 06:54:001.0[facility] HermannCHEM MCPOS5958-55-62 06:54:42860Iicndbhw HermannCHEM XKVFI7546-69-17 06:54:000.8 [facility] HermannCHEM [id number] 06:54:0010.6[facility] HermannCHEM PANEL 2014-11-09 06:54:0025[facility] HermannCHEM VOXJY0665-59-05 06:54:003.8[facility] OnyktiwEFFXATUVUG4244-29-79 06:54:003.5[facility] QjttgaeDVCUUPVWEH6404-73-59 06:54:001.5[facility] DmsgythDPYRIENOSS4549-30-97 06:54:000.2[facility] OVDICDDSNV2787-01-51 06:54:000.1[facility] GqdahlhEUZIRUCFEN4851-50-97 06:54:005.9 [facility] KwocmngGZQHJWFDCY6749-05-42 06:54:0031.4[facility] HermannHEMATOLOGY 2014-11-09 06:54:000.7[facility] SmkkmleCFLCALBEMM7354-30-88 06:54:0013.2[facility] QeaevzwFPBUPKJQBV7583-15-45 06:54:0053.0[facility] DniqithBIAOAXSGDZ9210-27-41 06:54:001.7[facility] ZvkbgdlDUKUVFEKJC1136-51-95 06:54:009.5[facility] FLRQPERAJT2193-99-64 06:54:10747Jshmiqpp SrhsdboZAKCINNBOS5497-66-11 06:54:00 32.5[facility] BhiblmqVZZMWQVXYS4397-07-46 06:54:0014.9[facility] HermannHEMATOLOGY 2014-11-09 06:54:0088.9[facility] FddltyoMKAAZZDXPL1843-89-72 06:54:00 Test Item Value Reference Range Interpretation Comments MCH (test code = MCH) 28.9 pg 27.0-31.0 [facility]ARD[facility] CDRAHWU2131-47-58 21:20:0075[facility]AC DZQZAZV4654-63-29 21:20:000.05[facility]AC SQGODBP2505-12-23 21:20:00 1.0[facility]annCARD[facility]AC DATKOIH4550-25-99 21:20:001.3[facility]annCHEM ZRYHD6705-53-96 21:20:0042[facility]annCHEM RVNFL6851-67-40 21:20:001.0 [facility]annCHE[facility] UJPGA3508-21-89 21:20:0030[facility]annCHEM PANEL 2014-11-08 21:20:58736Ekxpobuj HermannCHEM AXEPJ0046-26-60 21:20:0023[facility]annCHEM DKUPD5011-34-93 21:20:04535Akzbghlw HermannCHEM PJBBL5090-28-77 21:20:66124Esravxyf HermannCHEM XGIYS7314-15-57 21:20:004.6[facility]annCHEM EDXJI3275-45-07 21:20:009.6[facility]annCHEM HFTUW9004-58-14 21:20:0013.6 [facility] XdwhxeiWKHYYDXMQZ3237-29-06 21:20:00 Test Item Value Reference Range Interpretation Comments PTT (test code = PTT) 24.4 s 22.9-35.8 [facility] ItheqvcNMTLTPNHEH0725-08-20 21:20:000.93[facility]HEMATOLOGY 2014-11-08 21:20:00 Test Item Value Reference Range Interpretation Comments PT (test code = PT) 12.8 s 12.0-14.7 [facility] KmobmuhGBPGROGTWC4413-16-75 21:20:00 Test Item Value Reference Range Interpretation Comments MCH (test code = MCH) 28.9 pg 27.0-31.0 [facility] NhaveksALLBEBRUXO3074-71-34 21:20:0088.6[facility]annHEMATOLOGY 2014-11-08 21:20:0046.4[facility] IaxwuthCWNTAQOMJL9749-89-32 21:20:0032.7[facility] CuesmljQRTSUPQQRL4864-19-44 21:20:0015.2[facility] YngbkanKXEDSITRNM3055-51-82 21:20:15436Gvijrrbg HjwacopNSEQVNFIAI1014-04-30 21:20:0014.7[facility] [place] MXBEPAXFHH8672-01-94 21:20:009.2[facility] AyozbmnZTPPQATYFM9036-73-24 21:20:00 13.3[facility] PvqxfvdVQETLSBRKK1780-31-67 21:20:005.24[facility]annHEMATOLOGY 2014-11-08 21:20:001.6[facility] TdtyjtpPFAHWOLPFS7062-35-13 21:20:002.1[facility] ItmgxxwNTYQXZANTC3198-12-15 21:20:009.4[facility] YlanekkVQTCUGJSQN6350-57-00 21:20:000.8[facility] AlnddgzKRYTBAPRHZ4999-28-63 21:20:000.8[facility] VWZCAHFZMR1412-45-11 21:20:000.1[facility] HcuvnkfBMDBZJNHEC1133-00-33 21:20:000.1 [facility] NdminpmRFXQONAXOY0349-76-92 21:20:0012.0[facility]annHEMATOLOGY 2014-11-08 21:20:0015.7[facility] BfojtxpOWVDUMRIWV4985-43-80 21:20:0070.7[facility]
[2020-09-03 18:45] LABS: Protime INR 1.55
[2020-09-03 18:55] LABS: Absolute Lymphocytes (CBC) 1.3 K/uL (0.7-4.9); Basophils % 1.1 % (0-1.3); Hematocrit 40.8 % (36.0-45.0); Lymphocytes % 21.9 % (15.3-44.8); MPV 11.2 fL (7.6-11.3); RBC Red Blood Cell Count 3.88 M/uL (3.86-4.86)
[2020-09-03 18:56] LABS: Magnesium 1.5 mg/dL (1.8-2.4); Potassium 4.3 mmol/L (3.5-5.1); Troponin (Emerg Dept Use Only) 0.2 ng/mL (0.0-0.045)
--- NOTE | 2020-09-03 19:03 | RAD REPORT ---
EXAM DESCRIPTION: RAD - Chest Single View - 09/03/2020 6:51 pm CLINICAL HISTORY: Chest pain;Dyspnea COMPARISON: June 13 TECHNIQUE: AP portable chest image was obtained 09/03/2020 6:51 pm . FINDINGS: Interstitial and patchy alveolar opacities are present in each lower lung field. Mid left lung field shows similar finding. Heart size is upper normal to slightly enlarged. Sternotomy wires a re in place. Upper lobe vasculature is mildly prominent. No measurable pleural effusion and no pneumo thorax. No acute bony abnormality seen. No acute aortic findings suspected. IMPRESSION: Mild failure/ volume overload pattern suspected.
--- NOTE | 2020-09-03 19:05 | RAD REPORT ---
EXAM DESCRIPTION: CT - Thorax Wo Con - 09/03/2020 6:38 pm CLINICAL HISTORY: CHEST PAIN COMPARISON: Chest For Pe Angio dated 05/31/2020 TECHNIQUE: Axial 5 mm thick images of the chest were obtained without IV contrast. All CT scans are performed using dose optimization technique as appropriate and may include automated exposure control or mA/KV adjustment according to patient size. FINDINGS: Enlarged thyroid gland is present extending into the upper mediastinum. This matches the c omparison. Interstitial and alveolar opacification is present in the midportion and lingula of the left upper lo be. Bilateral interstitial and alveolar opacities are seen in each lower lobe and the right middle lo be. Minimal ground-glass opacities are seen in the superior aspect of each upper lobe. No mass lesion identified. Granulomatous calcifications are present. No endobronchial lesion identified. No pleural thickening or pleural effusion. No pneumothorax. A few nonspecific mediastinal lymph nodes are present similar to comparison. No gross aortic or pulmo nary artery finding suspected. Assessment is limited in the absence of IV contrast. No chest wall mass or abnormal axillary lymphadenopathy. IMPRESSION: Bilateral interstitial and alveolar opacities are present believed to be pulmonary edema related to failure or volume overload. Lung findings are not typical for infectious pneumonia.
--- NOTE | 2020-09-03 19:28 | ER ---
Nurse's Notes [facility] Name: Arminda Rodriguez Age: 80 yrs Sex: Female : 1940 Arrival Date: 09/03/2020 Time: 17:48 Bed 16 Private MD: Diagnosis: Chest pain Presentation: 09/03 17:48 Chief complaint: Patient states: Intermittent CP that began 1 hour ago. HX of NM, CABG. 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 Coronavirus screen: Client denies travel out of the [place] in the last 14 days. Ebola Screen: Patient denies exposure to infectious person. Patient denies travel to an Ebola-affected area in the 21 days before illness onset. Initial Sepsis Screen: Does the patient meet any 2 criteria? No. Patient's initial sepsis screen is negative. Does the patient have a suspected source of infection? No. Patient's initial sepsis screen is negative. Risk Assessment: Do you want to hurt yourself or someone else? Patient reports no desire to harm self or others. Onset of symptoms was September 03, 2020. 17:48 Method Of Arrival: EMS: [facility] ss 17:48 Acuity: GORDO 3 ss 17:49 Care prior to arrival: Medication(s) given: Normal saline infusion, 200 mL NS IV ss initiated. 20 GA, in the left antecubital area, Glucose check: 111. 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 - Family history:: not pertinent. - Social history:: Smoking status: unknown. - Hospitalizations: : No recent hospitalization is reported. Screenin:48 Abuse screen: Denies threats or abuse. Denies injuries from another. Nutritional ss screening: No deficits noted. Tuberculosis screening: Never had TB. Fall Risk None identified. Assessment: 18:54 General: Appears in no apparent distress. uncomfortable, Behavior is calm, cooperative, jl7 appropriate for age. Pain: Complains of pain in anterior aspect of right upper chest Pain does not radiate. Pain currently is 7 out of 10 on a pain scale. at worst was 10 out of 10 on a pain scale. Quality of pain is described as sharp, Pain began 1200 today Is intermittent. Neuro: Level of Consciousness is awake, alert, obeys commands, Oriented to person, place, time, situation. Cardiovascular: Patient's skin is warm and dry. Rhythm is sinus bradycardia. Respiratory: Reports cough that is dry, persistent Airway is patent Respiratory effort is even, unlabored, Respiratory pattern is regular, symmetrical. Derm: Skin is pink, warm \T\ dry. 19:36 Reassessment: Patient is alert, oriented x 3, equal unlabored respirations, skin bb warm/dry/pink. IV site intact, patent, family at bedside, pt admitted and verbalized understanding of and agrees to plan of care awaiting room assignment. 21:13 Reassessment: Patient is alert, oriented x 3, equal unlabored respirations, skin bb warm/dry/pink. report called to receiving RN, IV to L AC in place, no erythema or edema noted. Vital Signs: 17:48 BP 153 / 57; Pulse 52; Resp 18; Temp 98.0(TE); Pulse Ox 96% on R/A; Weight 121.11 kg; ss Pain 3/10; 18:53 BP 144 / 67; Pulse 50; Resp 15; Pulse Ox 94% ; Pain 7/10; jl7 19:38 BP 127 / 54; Pulse 48; Resp 20 S; Pulse Ox 94% on R/A; bb 20:54 BP 149 / 59; Pulse 55; Resp 16 S; Temp 97.8(O); Pulse Ox 98% ; bb ED Course: 17:48 Patient arrived in ED. ss 17:48 Patient has correct armband on for positive identification. Bed in low position. Call ss light in reach. clinical research monitor on. Pulse ox on. NIBP on. Warm blanket given. 17:48 Patient maintains SpO2 saturation greater than 95% on room air. ss 17:49 Triage completed. ss 17:49 Arm band placed on right wrist. ss 17:50 Wood Melendez MD is Attending Physician. rn 18:19 Noy Doll, RN is Primary Nurse. jl7 18:38 Thorax Wo Con In Process Unspecified. EDMS 18:51 XRAY Chest (1 view) In Process Unspecified. EDMS 19:06 Attending Physician role handed off by Wood Melendez MD pkl 19:06 Maxwell Leo MD is Attending Physician. pkl 19:07 Primary Nurse role handed off by Noy Doll, LEILA jl7 19:27 Frederick Gomez MD is Hospitalizing Provider. pkl 19:36 Tara Roberts, LEILA is Primary Nurse. bb 19:38 No provider procedures requiring assistance completed. Patient admitted, IV remains in bb place. Administered Medications: No medications were administered Outcome: 19:28 Decision to Hospitalize by Provider. pkl 19:39 Instructed on the need for admit. bb 21:15 Condition: stable bb 21:16 Admitted to Tele family with patient, via stretcher, room 205, with chart, Report bb called to Janet DEE 21:47 Patient left the ED. bb Signatures: Dispatcher [employer] EDMaxwell Do MD MD pkTara Arana, RN RN bb Wood Melendez MD MD rn Smirch, Shelby, RN RN Noy Crawford, LEILA RN jl7
--- NOTE | 2020-09-03 19:29 | EDPHYS ---
Physician Documentation [facility] Name: Arminda Rodriguez Age: 80 yrs Sex: Female : 1940 Arrival Date: 09/03/2020 Time: 17:48 Bed 16 Private MD: ED Physician Maxwell Leo HPI: 09/03 19:05 This 80 yrs old Female presents to ER via EMS with complaints of Chest Pain. rn 19:05 The patient or guardian reports chest pain that is located primarily in the substernal rn area. Onset: 4 hour(s) ago. The pain does not radiate. Associated signs and symptoms: Pertinent positives: cough, shortness of breath, Pertinent negatives: diaphoresis. The chest pain is described as a heaviness, a pressure, sharp. Duration: The patient or guardian reports multiple episodes, that are intermittent. Modifying factors: The symptoms are alleviated by nothing. the symptoms are aggravated by nothing. Severity of pain: At its worst the pain was moderate in the emergency department the pain has improved. The patient has not experienced similar symptoms in the past. The patient has not recently seen a physician. 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 - Family history:: not pertinent. - Social history:: Smoking status: unknown. - Hospitalizations: : No recent hospitalization is reported. ROS: 19:05 Constitutional: Negative for fever, chills, and weight loss, Eyes: Negative for injury, rn pain, redness, and discharge, Neck: Negative for injury, pain, and swelling, Cardiovascular: + chest pain Respiratory: + cough, + sob Abdomen/GI: Negative for abdominal pain, nausea, vomiting, diarrhea, and constipation, Back: Negative for injury and pain, : Negative for injury, bleeding, discharge, and swelling, MS/Extremity: Negative for injury and deformity, Skin: Negative for injury, rash, and discoloration, Neuro: Negative for headache, weakness, numbness, tingling, and seizure. Exam: 19:05 Constitutional: This is a well developed, well nourished patient who is awake, alert, rn and in no acute distress. Head/Face: Normocephalic, atraumatic. Eyes: Periorbital areas with no swelling, redness, or edema. Cardiovascular: bradycardic,regular rhythm. No pulse deficits. Respiratory: No increased work of breathing, no retractions or nasal flaring. Abdomen/GI: soft, non-tender Skin: Warm, dry with normal turgor. Normal color with no rashes, no lesions, and no evidence of cellulitis. MS/ Extremity: Pulses equal, no cyanosis. Neurovascular intact. Full, normal range of motion. Equal circumference. Neuro: Awake and alert, GCS 15 Vital Signs: 17:48 BP 153 / 57; Pulse 52; Resp 18; Temp 98.0(TE); Pulse Ox 96% on R/A; Weight 121.11 kg; ss Pain 3/10; 18:53 BP 144 / 67; Pulse 50; Resp 15; Pulse Ox 94% ; Pain 7/10; jl7 19:38 BP 127 / 54; Pulse 48; Resp 20 S; Pulse Ox 94% on R/A; bb 20:54 BP 149 / 59; Pulse 55; Resp 16 S; Temp 97.8(O); Pulse Ox 98% ; bb MDM: 17:50 Patient medically screened. rn 19:05 Transition of care: After a detail discussion of the patient's case, care is rn transferred to Maxwell Leo MD. 19:26 Data reviewed: vital signs, nurses notes. ED course: Talked to Dr. Gomez, for pkl observation. 09/03 17:59 Order name: Basic Metabolic Panel; Complete Time: 19:03 rn 09/03 17:59 Order name: CBC with Diff; Complete Time: 08:12 rn 09/03 17:59 Order name: Magnesium; Complete Time: 19:03 rn 09/03 17:59 Order name: NT PRO-BNP; Complete Time: 19:03 rn 09/03 17:59 Order name: PT-INR; Complete Time: 19:03 rn 09/03 17:59 Order name: Troponin (emerg Dept Use Only); Complete Time: 19:03 rn 09/03 17:59 Order name: XRAY Chest (1 view); Complete Time: 19:08 rn 09/03 17:59 Order name: EKG; Complete Time: 18:00 rn 09/03 17:59 Order name: Cardiac monitoring; Complete Time: 18:20 rn 09/03 17:59 Order name: EKG - Nurse/Tech; Complete Time: 18:53 rn 09/03 17:59 Order name: IV Saline Lock; Complete Time: 18:30 rn 09/03 18:37 Order name: Thorax Wo Con; Complete Time: 19:08 EDNH 09/03 20:53 Order name: Manual Differential; Complete Time: 08:12 EDNH 09/03 17:59 Order name: Labs collected and sent; Complete Time: 18:30 rn 09/03 17:59 Order name: O2 Per Protocol; Complete Time: 18:20 rn 09/03 17:59 Order name: O2 Sat Monitoring; Complete Time: 18:20 rn Administered Medications: No medications were administered Disposition: 09/03/20 19:28 Hospitalization ordered by Frederick Gomez for Observation. Diagnosis is Chest pain. - Bed requested for Telemetry/MedSurg (observation). - Status is Observation. bb - Condition is Stable. - Problem is new. - Symptoms are unchanged. Signatures: Dispatcher [employer] EDNH Maxwell Leo MD MD pkTara Arana, RN RN bb Wood Melendez MD MD rn Smirch, Shelby, RN RN ss Aylin Knutson, LEILA RN tl1 Corrections: (The following items were deleted from the chart) 18:37 18:00 Chest For PE Angio+CT.RAD.BRZ ordered. EDNH EDNH 20:19 19:28 Hospitalization Ordered by Frederick Gomez MD for Observation. Preliminary diagnosis tl1 is Chest pain. Bed requested for Telemetry/MedSurg (observation). Status is Observation. Condition is Stable. Problem is new. Symptoms are unchanged. pkl 21:47 20:19 09/03/2020 19:28 Hospitalization Ordered by Frederick Gomez MD for Observation. bb Preliminary diagnosis is Chest pain. Bed requested for Telemetry/MedSurg (observation). Status is Observation. Condition is Stable. Problem is new. Symptoms are unchanged. tl1
[2020-09-03] MEDS ORDERED: MORPHINE 4 MG/ML SYR IV PRN (20:19)
[2020-09-03 20:53] LABS: Blood Morphology Comment NOT SEEN (NOT SEEN); Platelet Estimate ADEQ
[2020-09-03 22:32] VITALS: BMI 45.8
[2020-09-04 06:34] LABS: Absolute Lymphocytes (CBC) 1.6 K/uL (0.7-4.9); Basophils % 1.3 % (0-1.3); Hematocrit 39.3 % (36.0-45.0); Lymphocytes % 23.2 % (15.3-44.8); MPV 11.3 fL (7.6-11.3); RBC Red Blood Cell Count 3.72 M/uL (3.86-4.86)
[2020-09-04 06:52] LABS: Potassium 4.1 mmol/L (3.5-5.1)
[2020-09-04] MEDS ORDERED: PNEUMOCOCCAL VACCINE 0.5 ML IMVAC ONE (08:00)
[2020-09-04] MEDS ORDERED: D50W 25 GM/50 ML SYRINGE IV PRN ×2 (08:03→08:11)
[2020-09-04] MEDS ORDERED: hydrOXYzine HCL 25 MG TAB PO PRN ×2 (08:03→16:56)
[2020-09-04] MEDS ORDERED: GLUCAGON 1 MG/VIAL IM PRN ×2 (08:03→08:11)
[2020-09-04] MEDS ORDERED: ASPIRIN EC 81 MG TAB PO SCH (09:00)
[2020-09-04] MEDS: MAGNESIUM OXIDE 400 MG TAB PO SCH (09:00)
[2020-09-04] MEDS ORDERED: ENOXAPARIN 40 MG/0.4 ML SQ SCH (09:00)
[2020-09-04] MEDS ORDERED: COENZYME Q10- 200 MG CAP PO SCH (09:00)
[2020-09-04 09:31] LABS: Urine Appearance CLEAR (Clear); Urine Bilirubin NEGATIVE (Negative); Urine Blood NEGATIVE (Negative); Urine Color YELLOW (Yellow); Urine Glucose 1+ (Negative); Urine Protein NEGATIVE (Negative); Urine Urobilinogen 0.2 mg/dL (0.2-1.0)
[2020-09-04 10:26] LABS: Urine Microscopic Reflex ORDER UMIC
[2020-09-04 11:48] LABS: Urine Bacteria <20 /HPF (<20); Urine RBC <5 /HPF (NONE SEEN)
[2020-09-04] MEDS: INSULIN -REGULAR HUMAN 50 UNIT/0.5 ML ML IV SCH ×3 (11:50→21:51)
[2020-09-04] MEDS: INSULIN GLARGINE 100 UNITS/ML SQ SCH ×2 (12:24→17:44)
[2020-09-04] MEDS: PREGABALIN 75 MG CAP PO SCH ×2 (12:24→21:51)
[2020-09-04] MEDS: ROPINIROLE HCL 0.25 MG TAB PO SCH (12:25)
[2020-09-04] MEDS: HYDROXYUREA 500 MG CAP PO SCH ×2 (12:25→21:51)
--- NOTE | 2020-09-04 12:54 | EKG ---
Test Date: 2020-09-04 Test Time: 09:13:30 Head Loader: THIERNO MEASUREMENT RESULTS: Intervals: Rate: 51 PA: 184 QRSD: 110 QT: 468 QTc: 431 [place]: P: -23 PA: 184 QRS: -41 T: 78 INTERPRETIVE STATEMENTS: Sinus bradycardia with sinus arrhythmia Left axis deviation Abnormal ECG Compared to ECG 09/03/2020 18:51:04 Left-axis deviation now present Electronically Signed On 09-04-20 12:53:38 CDT by Adán Harvey
--- NOTE | 2020-09-04 12:57 | EKG ---
Test Date: 2020-09-03 Test Time: 18:51:04 External Grinder: ESTRELLA MEASUREMENT RESULTS: Intervals: Rate: 51 IA: 186 QRSD: 104 QT: 464 QTc: 427 [place]: P: 40 IA: 186 QRS: -25 T: 62 INTERPRETIVE STATEMENTS: Sinus bradycardia with marked sinus arrhythmia Otherwise normal ECG Compared to ECG 06/13/2020 11:18:29 No significant changes Electronically Signed On 09-04-20 12:53:57 CDT by Adán Harvey
--- NOTE | 2020-09-04 13:27 | P.HP ---
Certification for Inpatient Patient admitted to: Observation With expected LOS: <2 Midnights Practitioner: I am a practitioner with admitting privileges, knowledge of patient current condition, hospital course, and medical plan of care. Services: Services provided to patient in accordance with Admission requirements found in Title 42 Section 412.3 of the Code of Federal Regulations Patient History Date of Service: 09/04/20 Reason for admission: RIGHT SIDE CHEST PAIN. History of Present Illness: MS. 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 SHE COMES WITH CHEST PAIN R SIDE WITHOUT RADIATION. SHE HAS NO FEVER. Allergies amoxicillin Allergy (Verified 05/30/20 03:48) Anaphylaxis clavulanic acid [From Augmentin] Allergy (Verified 05/30/20 03:48) Hives/Rash exenatide [From Byetta] Allergy (Verified 05/30/20 03:48) Itching/Hives/Rash ezetimibe [From Zetia] Allergy (Verified 07/27/18 13:00) Itching/Hives/Rash glimepiride [From Amaryl] Allergy (Verified 05/30/20 03:48) Itching/Hives/Rash hydrocodone Allergy (Verified 05/30/20 03:48) Nausea/Vomiting insulin glargine [From Lantus U-100 Insulin] Allergy (Verified 05/30/20 03:48) myalgia meperidine [From Demerol] Allergy (Verified 05/30/20 03:48) Itching/Hives/Rash metformin Allergy (Verified 05/30/20 03:48) unknown niacin [From Niaspan Extended-Release] Allergy (Verified 05/30/20 03:48) Itching/Hives/Rash Quinolones Allergy (Verified 05/30/20 03:48) Itching/Hives/Rash sitagliptin [From Januvia] Allergy (Verified 05/30/20 03:48) Itching/Hives/Rash Lvepycj-Tbi-Xtb Reductase Inhibitor Allergy (Verified 05/30/20 03:48) Nausea/Vomiting tetanus and diphtheria toxoids Allergy (Verified 05/30/20 03:48) Itching/Hives/Rash spironolactone Adverse Reaction (Verified 05/30/20 03:48) high K, Dehydration angiotensin Allergy (Uncoded 07/27/18 13:00) Nausea/Vomiting Home Medications: Aspirin 81 mg PO DAILY 05/08/19 Insulin Detemir [Levemir Flextouch] 5 unit SQ DAILY AT SUPPER 05/08/19 Insulin Detemir [Levemir Flextouch] 25 unit SQ DAILY WITH BREAKFAST 05/08/19 Magnesium Oxide [Mag 0X*] 400 mg PO DAILY 05/08/19 Pregabalin 75 mg PO BID 05/08/19 Ropinirole HCl [Requip*] 0.5 mg PO DAILY 05/08/19 Atorvastatin Calcium [Lipitor] 80 mg PO DAILY 05/29/20 Hydroxyurea [Hydrea*] 500 mg PO BID 05/29/20 Insulin Aspart [Novolog Flexpen] 10 unit SQ SEECOM 05/29/20 Pantoprazole [Protonix Tab*] 40 mg PO BID 05/29/20 hydrOXYzine HCL [Atarax*] 25 mg PO Q8H PRN 05/29/20 Apixaban [Eliquis] 5 mg PO BID 09/04/20 - Past Medical/Surgical History Has patient received pneumonia vaccine in the past: No Diabetic: Yes -: HTN -: DM 2 -: stroke 2014 -: Thrombocytopenia -: Hernia -: SOB -: Stroke x 3 -: CAD -: carotid stenosis right 90% -: vertiginous syndrome -: hyperglobulinemia, hypergammaglobulinemia -: dyslipidemia -: Hysterectomy -: Bladder suspension -: Hernia repair -: Spleenectomy -: Cholesystectomy -: Tonsillectomy -: Colonoscopy and Polyps removal -: endarterectomy, carotid 07/2018 - Family History Father -: Heart disease - Social History Smoking Status: Never smoker Alcohol use: No CD- Drugs: No Caffeine use: No Place of Residence: Home Review of Systems General: Weakness, Malaise Respiratory: As per HPI Cardiovascular: Chest Pain Physical Examination - Vital Signs Temperature: 97.4 F Blood Pressure: 147/53 Pulse: 52 Respirations: 16 Pulse Ox (%): 91 - Physical Exam General: Oriented x2, Mild distress, Obese HEENT: Atraumatic, PERRLA, Mucous membr. moist/pink, EOMI, Sclerae nonicteric Neck: Supple, 2+ carotid pulse no bruit, No LAD, Without JVD or thyroid abnormality Respiratory: Diminished, Inspiratory wheezes, Other Cardiovascular: Regular rate/rhythm, Normal S1 S2 Gastrointestinal: Normal bowel sounds, No tenderness Musculoskeletal: No tenderness Integumentary: No rashes Neurological: Normal gait, Normal speech, Normal strength at 5/5 x4 extr, Normal tone, Normal affect Lymphatics: No axilla or inguinal lymphadenopathy - Studies Laboratory Data (last 24 hrs) 09/03/20 18:23: PT 17.9 H, INR 1.55 09/03/20 18:23: WBC 6.10, Hgb 13.7, Hct 40.8, Plt Count 256 09/03/20 18:23: Sodium 142, Potassium 4.3, BUN 26 H, Creatinine 1.02, Glucose 125 H, Magnesium 1.5 L Assessment and Plan - Problems (Diagnosis) (1) Diastolic CHF, acute on chronic Current Visit: No Status: Acute Plan: LASIX IV BID. KCL CHECK IN AM. NORMAL EF CATH AND CABG 2018 DR. JARAMILLO SAW PATIENT. (2) Diabetes Current Visit: No Status: Chronic Qualifiers: Diabetes mellitus type: type 2 Diabetes mellitus complication status: with circulatory complication (3) HTN (hypertension) Current Visit: No Status: Chronic Qualifiers: Hypertension type: essential hypertension Qualified Code(s): I10 - Essential (primary) hypertension - Advance Directives Does patient have a Living Will: Yes Does patient have a Durable POA for Healthcare: No
[2020-09-04] MEDS: FUROSEMIDE 20 MG/ 2ML VIAL IV SCH ×2 (13:49→17:43)
[2020-09-04] MEDS ORDERED: Magnesium Sulfate 2gm IVPB 2 G/50 ML BAG IV ONE (16:18)
[2020-09-04] MEDS ORDERED: HOME MED 1 EA UNK (Insulin Aspart [Novolog Flexpen] 100 UNIT/ML Insuln.Pen) SQ SCH (17:00)
[2020-09-04] MEDS ORDERED: HOME MED 1 EA UNK (Insulin Detemir [Levemir Flextouch] 100 UNIT/ML Insuln.Pen) SQ SCH (17:00)
[2020-09-04] MEDS: PANTOPRAZOLE 40MG TABLET PO SCH (17:43)
[2020-09-04] MEDS ORDERED: ATORVASTATIN 80 MG TAB PO SCH (21:00)
[2020-09-04] MEDS ORDERED: PREGABALIN 75 MG CAP PO SCH (21:00)
[2020-09-04] MEDS ORDERED: HYDROXYUREA 500 MG CAP PO SCH (21:00)
[2020-09-04] MEDS: APIXABAN 5 MG TABLET PO SCH (21:51)
[2020-09-05 06:07] LABS: Absolute Lymphocytes (CBC) 1.7 K/uL (0.7-4.9); Basophils % 0.8 % (0-1.3); Hematocrit 40.8 % (36.0-45.0); Lymphocytes % 27.2 % (15.3-44.8); MPV 10.8 fL (7.6-11.3)
[2020-09-05 06:20] LABS: Magnesium 1.8 mg/dL (1.8-2.4); Potassium 3.8 mmol/L (3.5-5.1)
[2020-09-05 07:11] LABS: Blood Morphology Comment NOTED (NOT SEEN); White Blood Cell Scan OK (OK)
[2020-09-05 07:12] LABS: Anisocytosis 1+; Macrocytosis 1+; Platelet Estimate ADEQ; Platelets, Giant FEW
[2020-09-05] MEDS ORDERED: INSULIN GLARGINE 100 UNITS/ML SQ SCH (07:30)
[2020-09-05] MEDS ORDERED: HOME MED 1 EA UNK (Insulin Detemir [Levemir Flextouch] 100 UNIT/ML Insuln.Pen) SQ SCH (08:00)
[2020-09-05 08:01] VITALS: BP 137/63; TEMP 97.3
[2020-09-05] MEDS: INSULIN -REGULAR HUMAN 50 UNIT/0.5 ML ML IV SCH (08:35)
[2020-09-05] MEDS: HYDROXYUREA 500 MG CAP PO SCH (08:36)
[2020-09-05] MEDS: PANTOPRAZOLE 40MG TABLET PO SCH (08:36)
[2020-09-05] MEDS: APIXABAN 5 MG TABLET PO SCH (08:36)
[2020-09-05] MEDS: ROPINIROLE HCL 0.25 MG TAB PO SCH (08:36)
[2020-09-05] MEDS: MAGNESIUM OXIDE 400 MG TAB PO SCH (08:37)
[2020-09-05] MEDS: PREGABALIN 75 MG CAP PO SCH (08:37)
[2020-09-05] MEDS: FUROSEMIDE 20 MG/ 2ML VIAL IV SCH (08:37)
[2020-09-05] MEDS: Magnesium Sulfate 2gm IVPB 2 G/50 ML BAG IV ONE ×2 (08:37→08:45)
[2020-09-05] MEDS ORDERED: POTASSIUM CL SA 10 MEQ TAB PO ONE ×2 (08:46→09:11)
[2020-09-05] MEDS ORDERED: ROPINIROLE HCL 0.25 MG TAB PO SCH (09:00)
[2020-09-05] MEDS ORDERED: MAGNESIUM OXIDE 400 MG TAB PO SCH (09:00)
[2020-09-05] MEDS ORDERED: HOME MED 1 EA UNK (Aspirin [Aspirin] 81 MG Tab.Chew) PO SCH (09:00)
[2020-09-05] MEDS ORDERED: ATORVASTATIN 80 MG TAB PO SCH (09:00)
[2020-09-05 10:02] VITALS: O2SAT 92
--- NOTE | 2020-09-05 21:43 | P.DS ---
Admission Date: 09/05/20 Discharge Date: 09/05/20 Disposition: ROUTINE DISCHARGE Discharge Condition: GOOD Reason for Admission: RIGHT SIDE CHEST PAIN. - Problems (1) Diastolic CHF, acute on chronic Status: Acute (2) Diabetes Status: Chronic Qualifiers: Diabetes mellitus type: type 2 Diabetes mellitus complication status: with circulatory complication (3) HTN (hypertension) Status: Chronic Qualifiers: Hypertension type: essential hypertension Qualified Code(s): I10 - Essential (primary) hypertension Brief History of Present Illness: MS. MROENO HAS HAD MANY MEDICAL ISSUES INC.DIABETES, MORBID OBESITY, HTN, CVA, DEMENTIA POSSIBLE VASCULAR AND MULTIPLE ALLERGIES. SHE COMES WITH CHEST PAIN R SIDE WITHOUT RADIATION. SHE HAS NO FEVER. Hospital Course: AMBIKA IS DOING LOT BETTER AFTER IV LASIX BID. SHE HAS HAD MANY MEDICAL ISSUES DESCRIBED BEFORE. SHE AT THIS POINT IS WHEELCHAIR BOUND WITH SEVERE ARTHRITIS, HISTORY OF STROKE AND DIABETIC NEUROPATHY AND NOW DIASTOLIC ACUTE ON CHRONIC CHF. Vital Signs/Physical Exam: Temp Pulse Resp BP Pulse Ox 97.3 F 54 20 137/63 96 09/05/20 08:00 09/05/20 08:37 09/05/20 08:00 09/05/20 08:37 09/05/20 08:00 Laboratory Data at Discharge: WBC 6.40 K/uL (4.3-10.9) 09/05/20 05:53 Hgb 13.5 g/dL (12.0-15.0) 09/05/20 05:53 Hct 40.8 % (36.0-45.0) 09/05/20 05:53 Plt Count 270 K/uL (152-406) 09/05/20 05:53 PT 17.9 SECONDS (9.5-12.5) H 09/03/20 18:23 INR 1.55 09/03/20 18:23 Sodium 141 mmol/L (136-145) 09/05/20 05:53 Potassium 3.8 mmol/L (3.5-5.1) 09/05/20 05:53 BUN 30 mg/dL (7-18) H 09/05/20 05:53 Creatinine 0.94 mg/dL (0.55-1.3) 09/05/20 05:53 Glucose 138 mg/dL (74-106) H 09/05/20 05:53 Magnesium 1.8 mg/dL (1.8-2.4) 09/05/20 05:53 Troponin I 0.20 ng/mL (0.0-0.045) H 09/04/20 06:09 Home Medications: Aspirin 81 mg PO DAILY 05/08/19 Insulin Detemir [Levemir Flextouch] 5 unit SQ DAILY AT SUPPER 05/08/19 Insulin Detemir [Levemir Flextouch] 25 unit SQ DAILY WITH BREAKFAST 05/08/19 Magnesium Oxide [Mag 0X*] 400 mg PO DAILY 05/08/19 Pregabalin 75 mg PO BID 05/08/19 Ropinirole HCl [Requip*] 0.5 mg PO DAILY 05/08/19 Atorvastatin Calcium [Lipitor] 80 mg PO DAILY 05/29/20 Hydroxyurea [Hydrea*] 500 mg PO BID 05/29/20 Insulin Aspart [Novolog Flexpen] 10 unit SQ SEECOM 05/29/20 Pantoprazole [Protonix Tab*] 40 mg PO BID 05/29/20 hydrOXYzine HCL [Atarax*] 25 mg PO Q8H PRN 05/29/20 Apixaban [Eliquis] 5 mg PO BID 09/04/20 Followup: Adán Harvey MD [ACTIVE - CAN ADMIT] - Frederick Gomez MD [Primary Care Provider] -
[2020-09-06] MEDS ORDERED: INSULIN GLARGINE 100 UNITS/ML SQ SCH (16:30)
--- NOTE | 2020-09-07 09:26 | CON ---
Date of Consultation: 09/04/2020 Reason For Consultation: Chest pain and shortness of breath. History Of Present Illness: Ms. Rodriguez is a 80-year-old white woman, who has a very complicated past medical history. She has been in the hospital and seen in the office for similar complaint. She has a history of CAD, CABG, diabetes, gastroesophageal reflux disease, hypothyroidism, cerebrovascular d isease, status post CA, hypertension, dyslipidemia, diabetes. She came in with right-sided atypical chest pain with some shortness of breath. Chest x-ray shows congestive heart failure. EKG shows sin us bradycardia. Echocardiogram in May 2020 was normal. She had a troponin of 0.20. BNP was 1094. Her glucose was elevated at 267. Denies nausea, vomiting, diaphoresis, PND, orthopnea, pedal edema , palpitation, or syncope. Did have some shortness of breath. Past Medical History: As stated above. Allergies: INCLUDE INSULIN, AUGMENTIN, ZETIA, GLIMEPIRIDE, AND HYDROCODONE. Review of Systems: Negative. Social History: Negative. Family History: Negative. Medications: At home include aspirin, Lipitor, Lasix, Entresto, Requip, Lyrica, insulin, Protonix, m agnesium. Physical Examination: Vital Signs: Stable. She was afebrile. HEENT: Negative. Neck: Supple without any bruit, lymphadenopathy, JVD, or thyromegaly. Chest: Some rales at both bases. Cardiac: Regular rhythm and rate with an S4 gallops. No murmurs or rubs. Abdomen: Obese, but benign. Extremities: 1+ edema. Diagnostic Data: As stated earlier. Impression And Plan: Acute on chronic diastolic congestive heart failure. We should consider low-do se beta-blockers. Increase her Lasix dose. She is already on Entresto. No need to repeat any cardi ac workup at this point. I will discuss the case further with Dr. Gomez. I think her troponin eleva tion and BNP elevation are secondary to congestive heart failure. I will check in my office when her Lexiscan was. Her other problems including diabetes, gastroesophageal reflux disease, dyslipidemia, coronary artery disease status post coronary artery bypass graft, cerebrovascular disease, status po st CA, hypertension, and dyslipidemia, seem to be stable at this point. Again, I would diurese her, maybe add a low-dose beta-tamika. Can go home in the next day or so. I will continue to follow her along. PEE/SULEIMAN Voice ID: [id number] Report ID: [id number]
--- NOTE | 2020-09-07 10:56 | PN ---
Date of Progress Note: 09/05/2020 Ms. Rodriguez had came in with chest pain, shortness of breath. Troponin 0.0. BNP was 1094. She was fo und to have some mild congestive heart failure by x-ray. She is pain-free today. She is feeling bet ter. No shortness of breath. Echocardiogram in May of 2020 was normal. She is status post CABG a nd status post carotid endarterectomy in 2019 in July. I do not think we need to repeat any cardiac w orkup at this point. I think we need to increase her Lasix dose at home. Consider low-dose beta-blo cker. Continue her Entresto, aspirin, Lipitor, insulin. I will see her in the office in the next 2 weeks. If her symptoms persist, we may have to do another catheterization or do a Lexiscan in the ne ar future. PEE/SULEIMAN Voice ID: [id number] Report ID: [id number]
== END 2020-09-05 10:46 | disposition home or self-care (01) | DRG 292 ==
LOC: ER 17:31 → ERHOLD 19:33 → 2ND 21:16 → OBSVTOIN 09-05 07:32
PROVIDERS: ADMIT Internal Medicine; ATTEND Internal Medicine
DX: I11.0 Hypertensive heart disease with heart failure (principal); Z68.42 Body mass index [BMI] 45.0-49.9, adult; I50.33 Acute on chronic diastolic (congestive) heart failure; E66.01 Morbid (severe) obesity due to excess calories; F01.50 Vascular dementia, unspecified severity, without behavioral disturbance, psychotic disturbance, mood disturbance, and anxiety; M19.90 Unspecified osteoarthritis, unspecified site; E11.40 Type 2 diabetes mellitus with diabetic neuropathy, unspecified; Z86.73 Personal history of transient ischemic attack (TIA), and cerebral infarction without residual deficits; Z99.3 Dependence on wheelchair; Z95.1 Presence of aortocoronary bypass graft
CPT/HCPCS: 36415; 71045; 71250; 80048; 81003; 81015; 82565; 82947; 83735; 83880; 84484; 85025; 85610; 87077; 87086; 87088; 87186; 93005; 99285; G0378; J1650; J1815; J1940; J3475

== ENCOUNTER 2020-11-21 16:30 | Observation (INO) | payer OTHER ==
--- OUTSIDE RECORDS SUMMARY | 2020-11-21 16:37 | XMS REPORT | Continuity of Care Document ---
:[address] [facility] t Address [address] [place] [address] Care Team Providers Name Role Phone Pcp Primary Care Physician Unavailable ROSENDA AQUINO Attending Clinician Unavailable BRENDAN VENTURA Attending Clinician Unavailable Attending Clinician Unavailable CHAYO Attending Clinician Unavailable ROSENDA AQUINO Admitting Clinician Unavailable BRENDAN VENTURA Admitting Clinician Unavailable Problems Condition Condition Condition Status Onset Resolution [...] Disease Active [facility] openia openia 08-06 [facility] - [facility]: Medical [place] Hyperglyce Hyperglyce Disease Active [facility] daija daija 08-06 [facility] - 00:[facility]: Medical 00 Center Coronary Coronary Disease Active [facility] arterioscl arterioscl 30 Jennifer kes - erosis erosis 00:00: Medical 00 Center 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 [facility] 4 4 5-30 [facility] - 00:[facility]: Medical [place] Bradycardi Bradycardi Disease Active [facility] a a 5-30 [facility] - 00[facility]: Medical 00 Center Acute Acute Disease Active [facility] prerenal prerenal 5-30 [facility] - azotemia azotemia 00:00: Medica l 00 Center Hyperchlor Hyperchlor Disease Active [facility] emic emic 5-30 [facility] - metabolic metabolic 00:00: [facility] saira acidosis acidosis 00 Center Acute Acute Disease Active [facility] blood loss blood loss 5-30 Jennifer kes - anemia anemia 00:00: Medical 00 [place] Chronotrop Chronotrop Disease Active [facility] ic ic 5-30 [facility] - incompeten incompeten 00:00: Me dical ce ce 00 Center S/P S/P Disease Active [facility] carotid carotid 5-22 [facility] - endarterec endarterec 00:00: Me dical carmen carmen 00 [place] Acute Acute Disease Active [facility] respirator respirator 5-22 Jennifer kes - y y 00:00: Medical insufficie insufficie 00 Ce nter ncy ncy Hypertensi Hypertensi Disease Active C [facility] ve urgency ve urgency 5-22 Jennifer kes - 00:00: Medical 00 [place] Carotid Carotid Disease Active [facility] stenosis, stenosis, 5-21 [facility] - right right 00:00: Medical 00 [place] CAD CAD Disease Active [facility] (coronary (coronary 5-21 [facility] - artery artery 00:00: Medical disease) disease) 00 Center Clotting Clotting Problem Active Unive rs disorder disorder [facility] [place] [facility] Muscle Muscle Problem Active Univers weakness weakness [facility] [place] [facility] Polyneurop Polyneurop Problem Active U nivers athy athy [facility] [place] [facility] Stroke, Stroke, Problem Active Univers embolic embolic [facility] [place] [facility] Diabetes Diabetes Problem Active Unive rs mellitus mellitus ity of type 2, type 2, [place] uncontroll uncontroll Ph ysici ed ed ans Hypotensio Hypotensio Disease Active C [facility] n due to n due to [facility] - hypovolemi hypovolemi Me dical a a Center Normal Normal Disease Active [facility] anion gap anion gap Luke s - metabolic metabolic Medi saira acidosis acidosis Center Essential Essential Problem Active Uni vers (primary) (primary) ity of hypertens[place] hypertens[place] [facility] Hyperlipid Hyperlipid Problem Active U nivers emia emia [facility] [place] [facility] Multiple Multiple Problem Active Unive rs thyroid thyroid ity of nodules nodules [place] [facility] Vitamin D Vitamin D Problem Active Uni vers deficiency deficiency it y of disease disease [place] [facility] Hypercalce Hypercalce Problem Active U nivers da[place] daija [facility]y of [place] [facility] Allergies, Adverse Reactions, Alerts Allergy Allergy Status Severity Reaction(s) Onset Inactive Treating Comm ents Source Name Type Date Date Clinician Tree Nut Drug Active Swelling Daughter [facility] Allergy 6-10 reports [facility] - 00:[facility]: pt has Medical 00 swelling Center when she consume peanuts and tree nuts and she wanted this documente d within the EMR. Ezetimib Propensi Active [facility] e ty to 07-27 [facility] - adverse 00:00: Medical reaction 00 Center s Glimepir Propensi Active [facility] rodríguez ty to 07-27 [facility] - adverse 00:00: Medical reaction 00 Center s Hydrocod Propensi Active [facility] one-Acet ty to 07-27 [facility] - aminophe adverse 00:00: Medical n reaction 00 Center s Insulin Propensi Active [facility] Glargine ty to 07-27 [facility] - adverse 00:00: Medical reaction 00 Center s Meperidi Propensi Active [facility] ne ty to 07-27 [facility] - adverse 00:00: Medical reaction 00 Center s Metformi Propensi Active [facility] n ty to 5-21 [facility] - adverse 00:00: Medical reaction 00 Center s Niacin Propensi Active [facility] Preparat ty to 5 [facility] - ions adverse 00:00: Medical reaction 00 Center s Peanut Drug Active Swelling Daughter [facility] Allergy 5-21 reports [facility] - 00:00: pt has Medical 00 swelling Center when she consume peanuts and tree nuts and she wanted this documente d within the EMR. Quinolon Propensi Active [facility] es ty to 5-21 [facility] - adverse 00:00: Medical reaction 00 Center s Sitaglip Propensi Active 2019-[address] tin ty to 5-21 [facility] - adverse 00:00: Medical reaction 00 Center s Starch Propensi Active 2019-[address] ty to 5-21 [facility] - adverse 00:00: Medical reaction 00 Center s Statins- Propensi Active 2019-[address] Hmg-Coa ty to 5-21 [facility] - Reductas adverse 00:00: Medical e reaction 00 Center Inhibito s rs Tetanus Propensi Active 2019-[address] Vaccines ty to 5-21 [facility] - And adverse 00:00: Medical Toxoid reaction 00 Center s Amoxicil Propensi Active 2018-[address] andrew ty to 5-21 [facility] - adverse 00:00: Medical reaction 00 Center s Angioten Propensi Active 2019-[address] sin ty to 5-21 [facility] - I,Human adverse 00:00: Medical reaction 00 Center s Caffeine Propensi Active [facility] ty to 5-21 [facility] - adverse 00:00: Medical reaction 00 Center s Clavulan Propensi Active 2019-[address] ic Acid ty to 521 [facility] - adverse 00:00: Medical reaction 00 Center s Diphther Propensi Active 2018-[address] ia-[place] ty to 21 [facility] - us adverse 00:00: Medical Toxoids reaction 00 Center Ped s Exenatid Propensi Active 2019-[address] e ty to 5-21 [facility] - adverse 00:00: Medical reaction 00 Center s Cipro drug Active Univers allergy [facility] [place] [facility] hydrocod drug Active Univers one allergy [facility] [place] [facility] Januvia drug Active Univers TABS allergy [facility] [place] [facility] Lantus drug Active Univers allergy [facility] [place] [facility] Levaquin drug Active Univers allergy [facility] [place] [facility] Lipitor drug Active Univers allergy [facility] [place] [facility] Meperidi drug Active Univers ne HCl allergy ity of [facility] Physici ans MetFORMI drug Active Univers N HCl allergy ity of [facility] Physici ans Niaspan drug Active Univers TBCR allergy ity of [place] [facility] Statins drug Active Univers allergy [facility] [place] [facility] TETANUS drug Active Univers allergy [facility] [place] [facility] Zetia drug Active Univers allergy [place]y of [place] [facility] Amaryl drug Active Univers allergy [facility] of [place] [facility] amoxicil drug Active Univers andrew allergy [facility]y of [place] [facility] Angioten drug Active Univers sin allergy ity of Receptor [place] [facility] Physici ans Augmenti drug Active Univers n allergy [facility]y of [place] [facility] Byetta drug Active Univers SOLN allergy [facility] of [place] [facility] Family History Family Member Diagnosis Comments Start Date Stop Date Source Father Family history of Univers ity of coronary [place] [facility] arteriosclerosis Social History Social Habit Start Date Stop Date Quantity Comments Source History SDOH [facility] - Alcohol Std Drinks Medica l Center History SDOH [facility] - Alcohol Binge Medical Darren ter History SDOH [facility] - Alcohol Comment Medical C enter Alcohol intake 2018-08-25 2018-08-[address] Castillo es - 00:00:00 00:00:00 non-drinker of Medical Ce nter alcohol (finding) History SDOH 2018-08-05 2018-08-[address] [facility] - Alcohol Frequency 00:00:00 00:00:00 Medical Center Tobacco use and 2018-07-27 2018-07-[address] Jennifer kes - exposure 00:00:00 00:00:00 Medical Center Sex Assigned At [address] Jennifer kes - 00:00:00 00:00:00 Medical Center Smoking Status Start Date Stop Date Source Former smoker [facility] Never smoker [facility] edical Center Medications Ordered Filled Start Stop [...] QD Inject 10 [facility] detemir 6-19 Units [facility] - U-100 10:06: subcutaneo Medica l (LEVEMIR) 45 usly Center 100 unit/mL nightly injection Before supper.. pregabalin 2019-0 Yes 75mg Q.5D Take [address] (LYRICA) 75 6-19 by mouth 2 Jennifer kes - MG capsule 10:06: (two) Medica l 45 times Center daily. meclizine 2019-0 Yes 25mg Take 25 mg CH I [...] 5,000 unit 45 daily. Center Tab clopidogrel 2019-0 Yes 75mg QD Take 75 mg CHI [...] 40 MG 00 Center tablet aspirin 81 Yes 81mg QD Take 1 [facility] t MG EC 6-11 tablet (81 [facility] - tablet 00:00: mg total) Medica l 00 by mouth Center daily. carvedilol Yes 3.125mg Q.5D Take [address] (COREG) 6-10 tablet [facility] - 3.125 MG 00:00: (3.125 mg Medi saira tablet 00 total) by Center mouth 2 (two) times daily. Tresiba Tresiba Yes TITO 30 QD INJECT 30 Univers FlexTouch FlexTouch 11-14 SENDOS UNIT DAILY ity of 100 UNIT/ML 100 UNIT/ML 00:00: M.D. [place] Subcutaneou Subcutaneou 00 P hysici s Solution s Solution ans Pen-injecto Pen-injecto r r Toujeo Toujeo Yes TITO 30 QD INJECT 30 U nivers SoloStar SoloStar 11-12 SENDOS UNIT DAILY ity of 300 UNIT/ML 300 UNIT/ML 00:00: M.D. [place] Subcutaneou Subcutaneou 00 P hysici s Solution s Solution ans Pen-injecto Pen-injecto r r OneTouch OneTouch Yes TITO uses 4 Univers Delica Delica 6-27 SENDOS daily ity of Lancets 33G Lancets 33G 00:00: M.D. [place] 00 Physici ans OneTouch OneTouch Yes TITO Q0.25D TEST 4 Univers Ultra Blue Ultra [...] TABS 0-20 TABLET ity of 00:00: DAILY. [place] 00 Physici ans Norvasc 2.5 Norvasc 2.5 Yes 1 QD TAKE 1 Univers MG Oral MG Oral TABLET ity of Tablet Tablet DAILY. [place] [facility] NovoLOG NovoLOG Yes Inject 10 Univ ers FlexPen 100 FlexPen 100 units ity of UNIT/ML UNIT/ML before [place] Subcutaneou Subcutaneou each meal Physici s Solution s Solution subcutaneo ans Pen-injecto Pen-injecto usly r r Spironolact Spironolact Yes 1 QD TAKE 1 Univers one 50 MG one 50 MG TABLET ity of Oral Tablet Oral Tablet DAILY. [place] Phys[facility] Levemir Levemir Yes Inject 20 Univ ers FlexTouch FlexTouch units ity of 100 UNIT/ML 100 UNIT/ML subcu once [place] Subcutaneou Subcutaneou a day Physici s Solution s Solution befor an s Pen-injecto Pen-injecto meal. r r Jublia 10 % Jublia 10 % Yes U nivers External External ity of Solution Solution [place] [facility] Procedures Procedure Date / Time Performing Clinician Source Performed History of [facility] [place] [facility] History of Splenectomy [facility] Physicians History of Total [facility] [place] [facility] Hysterectomy Physicians [place] [facility] [place] [facility] Physicians History of Tonsillectomy Univers [facility] [place] [facility] With Adenoidectomy Physicians History of Inguinal Hernia Unive [facility] Rep[facility] Physicians Plan of Care Planned Activity [...] 00:00:00 (1 of 1 - Medical Center [id number] PCV13) [code = PNEUMOCOCCAL 65+ YRS (1 of 1 - [id number] PCV13)] Encounters Start End Encounter Admission Attending Care Care Encounter Source Date/Time Date/Time Type Type Clinicians Facility Department ID 2015-04-10 2015-04-10 AppointJULIA Funes Neurology [id number] [facility] 09:00:00 09:00:00 t; ETTA GOODWIN [facility].D. [facility] 2015-03-27 2015-03-27 Appointmen RESHMAJULIA MICHAEL UTP [id number] Univers 11:15:00 11:15:00 t; TITO DOMINGO it y Dena FRANCIS [place] Dena Physici ans 2015-03-06 2015-03-06 Appointmen JULIA GOODWIN UTP [id number] Univers 09:00:00 09:00:00 t; ETTA GOODWIN M.D. [facility]y [facility] Results Test Description Test Time Test Comments Results Result Comments Source POCT-GLUCOSE METER 2018-08-17 12:30:00 Test Item Value Reference Range Interpretation Comme nts POC-GLUCOSE METER ([facility]) (test 164 mg/dL 70-110 H TESTED AT [place] [address] BERTNER code = 1538) [facility] 7703 0 POCT-GLUCOSE [id number] 12:29:00 Test Item Value Reference Range Interpretation Comments POC-GLUCOSE METER 83 mg/dL 70-110 TESTED AT [place] [address] ([facility]) (test code = DAVE Borja [facility] [address] 1538) POCT-GLUCOSE [id number] 22:17:00 Test Item Value Reference Range Interpretation Comments POC-GLUCOSE METER 116 mg/dL 70-110 H TESTED AT [place] [id number] ([facility]) (test code = DAVE Borja [facility] 1538) [id number] POCT-GLUCOSE [id number] 17:38:00 Test Item Value Reference Range Interpretation Comments POC-GLUCOSE METER 168 mg/dL 70-110 H TESTED AT [place] [address] ([facility]) (test code = DAVE Borja [facility] 1538) [id number] POCT-GLUCOSE [id number] 12:41:00 Test Item Value Reference Range Interpretation Comments POC-GLUCOSE METER 243 mg/dL 70-110 H TESTED AT [place] [address] ([facility]) (test code = DAVE Borja [facility] 1538) [address] POCT-GLUCOSE [id number] 09:34:00 Test Item Value Reference Range Interpretation Comments POC-GLUCOSE METER 193 mg/dL 70-110 H TESTED AT [place] [address] ([facility]) (test code = [facility] 1538) [address] POCT-GLUCOSE [id number] 21:52:00 Test Item Value Reference Range Interpretation Comments POC-GLUCOSE METER 222 mg/dL 70-110 H TESTED AT [place] [address] ([facility]) (test code = [facility] 1538) [address] POCT-GLUCOSE [id number] 18:59:00 Test Item Value Reference Range Interpretation Comments POC-GLUCOSE METER 181 mg/dL 70-110 H TESTED AT [place] [address] ([facility]) (test code = [facility] 1538) [address] POCT-GLUCOSE [id number] 14:21:00 Test Item Value Reference Range Interpretation Comments POC-GLUCOSE METER 179 mg/dL 70-110 H TESTED AT [place] [address] ([facility]) (test code = [facility] 1538) [address] POCT-GLUCOSE [id number] 09:40:00 Test Item Value Reference Range Interpretation Comments POC-GLUCOSE METER 211 mg/dL 70-110 H TESTED AT [place] [address] ([facility]) (test code = [facility] 1538) [address] BASIC METABOLIC [id number] 06:49:00 Test Item Value Reference Range Interpretation [...] PATIEN TS. CBC W/PLT COUNT & AUTO [id number] 06:45:00 Test Item Value Reference Range Interpretation [...] (BEAKER) (test code = 2801) URINALYSIS W/ [id number] 04:40:00 Test Item Value Reference Range Interpretation [...] 516) SOURCE(BEAKER) (test code = 2795) POCT-GLUCOSE [id number] 20:47:00 Test Item Value Reference Range Interpretation Comments POC-GLUCOSE METER 273 mg/dL 70-110 H TESTED AT [facility] 6720 (BEAKER) (test code = DAVE [place] 1538) [address] POCT-GLUCOSE [id number] 18:20:00 Test Item Value Reference Range Interpretation Comments POC-GLUCOSE METER 305 mg/dL 70-110 H Notified R Siria SMITH/TESTED (BEAKER) (test code = AT [facility] 67[address] 1538) [place] [address] POCT-GLUCOSE [id number] 14:27:00 Test Item Value Reference Range Interpretation Comments POC-GLUCOSE METER 215 mg/dL 70-110 H TESTED AT [facility] 6720 ([facility]) (test code = DAVE Borja [place] 1538) [address] POCT-GLUCOSE [id number] 12:10:00 Test Item Value Reference Range Interpretation Comments POC-GLUCOSE METER 278 mg/dL 70-110 H TESTED AT [facility] 6720 (BEAKER) (test code = DAVE Borja [place] 1538) [address] POCT-GLUCOSE [id number] 08:12:00 Test Item Value Reference Range Interpretation Comments POC-GLUCOSE METER 225 mg/dL 70-110 H TESTED AT [place] [address] (BEAKER) (test code = DAVE Borja [place] 1538) [address] POCT-GLUCOSE [id number] 21:36:00 Test Item Value Reference Range Interpretation Comments POC-GLUCOSE METER 272 mg/dL 70-110 H TESTED AT [place] [address] ([facility]) (test code = DAVE Borja [place] 1538) [address] POCT-GLUCOSE [id number] 18:06:00 Test Item Value Reference Range Interpretation Comments POC-GLUCOSE METER 264 mg/dL 70-110 H TESTED AT [place] [address] (BEAKER) (test code = DAVE Borja [place] 1538) [address] POCT-GLUCOSE [id number] 13:33:00 Test Item Value Reference Range Interpretation Comments POC-GLUCOSE METER 225 mg/dL 70-110 H TESTED AT [place] [address] (BEAKER) (test code = DAVE Borja [place] 1538) [address] POCT-GLUCOSE [id number] 08:16:00 Test Item Value Reference Range Interpretation Comments POC-GLUCOSE METER 217 mg/dL 70-110 H TESTED AT [place] [address] (BEAKER) (test code = DAVE Borja [place] 1538) [address] [id number] 07:48:00 Test Item Value Reference Range Interpretation Comments MAGNESIUM (BEAKER) (test code = 1.6 mg/dL 1.6-2.6 627) BASIC METABOLIC [id number] 07:48:00 Test Item Value Reference Range Interpretation [...] PATIEN TS. CBC W/PLT COUNT & AUTO [id number] 07:18:00 Test Item Value Reference Range Interpretation [...] PERCENT (BEAKER) (test code = 2801) POCT-GLUCOSE [id number] 23:19:00 Test Item Value Reference Range Interpretation Comments POC-GLUCOSE METER 214 mg/dL 70-110 H TESTED AT [facility] 6720 (BEAKER) (test [facility] = [facility] 1538) [address] POCT-GLUCOSE [id number] 16:37:00 Test Item Value Reference Range Interpretation Comments POC-GLUCOSE METER 192 mg/dL 70-110 H TESTED AT [facility] 6720 (BEAKER) (test code = [facility] Huong [facility] 1538) [address] POCT-GLUCOSE [id number] 12:47:00 Test Item Value Reference Range Interpretation Comments POC-GLUCOSE METER 233 mg/dL 70-110 H TESTED AT [facility] 6720 (BEAKER) (test code = [facility] 1538) [address] BASIC METABOLIC [id number] 11:26:00 Test Item Value Reference Range Interpretation [...] S NOT APPLICABLE FOR DIALYSIS PATIEN TS. [id number] 11:26:00 Test Item Value Reference Range Interpretation Comments MAGNESIUM (BEAKER) (test code = 1.2 mg/dL 1.6-2.6 L 627) CBC W/PLT COUNT & AUTO [id number] 11:17:00 Test Item Value Reference Range Interpretation [...] 3438) Received comment: User comments: Slide comments:POCT-GLUCOSE [id number] 07:57:00 Test Item Value Reference Range Interpretation Comments POC-GLUCOSE METER 165 mg/dL 70-110 H TESTED AT [facility] 6720 (BEAKER) (test code = DAVE [place] 1538) [address] POCT-GLUCOSE [id number] 22:08:00 Test Item Value Reference Range Interpretation Comments POC-GLUCOSE METER 161 mg/dL 70-110 H TESTED AT [facility] 6720 (BEAKER) (test code = DAVE Borja [place] 1538) [id number] POCT-GLUCOSE [id number] 18:10:00 Test Item Value Reference Range Interpretation Comments POC-GLUCOSE METER 141 mg/dL 70-110 H TESTED AT [place] [id number] (BEAKER) (test code = DAVE Borja [place] 1538) [address] [id number] 14:55:00 Test Item Value Reference Range Interpretation Comments MAGNESIUM (BEAKER) 1.2 mg/dL 1.6-2.6 L Specimen slightly (test code = 627) hemolyzed BASIC METABOLIC [id number] 14:55:00 Test Item Value Reference Range Interpretation [...] NOT APPLICABLE FOR DIALYSIS PATIEN TS. POCT-GLUCOSE [id number] 12:01:00 Test Item Value Reference Range Interpretation Comments POC-GLUCOSE METER 163 mg/dL 70-110 H TESTED AT [facility] 6720 (BEAKER) (test code = DAVE Borja [place] 1538) [address] CBC W/PLT COUNT & AUTO [id number] 11:57:00 Test Item Value Reference Range Interpretation [...] PERCENT (BEAKER) (test code = 2801) POCT-GLUCOSE [id number] 10:18:00 Test Item Value Reference Range Interpretation Comments POC-GLUCOSE METER 155 mg/dL 70-110 H TESTED AT [place] [address] ([facility]) (test code = DAVE Borja [facility] 1538) [address] POCT-GLUCOSE [id number] 08:13:00 Test Item Value Reference Range Interpretation Comments POC-GLUCOSE METER 157 mg/dL 70-110 H TESTED AT [place] [address] ([facility]) (test code = [facility] Huong [facility] 1538) [address] POCT-GLUCOSE [id number] 21:57:00 Test Item Value Reference Range Interpretation Comments POC-GLUCOSE METER 181 mg/dL 70-110 H TESTED AT [place] [address] ([facility]) (test code = [facility] 1538) [address] POCT-GLUCOSE [id number] 17:39:00 Test Item Value Reference Range Interpretation Comments POC-GLUCOSE METER 232 mg/dL 70-110 H TESTED AT [place] [address] ([facility]) (test code = [facility] 1538) [address] POCT-GLUCOSE [id number] 12:55:00 Test Item Value Reference Range Interpretation Comments POC-GLUCOSE METER 207 mg/dL 70-110 H TESTED AT [place] [address] ([facility]) (test code = [facility] 1538) [address] CBC W/PLT COUNT & AUTO [id number] 12:50:00 Test Item Value Reference Range Interpretation Comments WHITE BLOOD CELL COUNT ([facility]) 11.8 K/ L 3.5-10.5 H (test code = 775) RED BLOOD CELL COUNT ([facility]) 2.74 M/ L 3.93-5.22 L (test code = 761) HEMOGLOBIN (AKER) (test code = 10.3 GM/DL 11.2-15.7 L 410) HEMATOCRIT ([facility]) (test code = 28.6 % 34.1-44.9 L 411) MEAN CORPUSCULAR VOLUME ([facility]) 104.4 fL 79.4-94.8 H (test code = 753) MEAN CORPUSCULAR HEMOGLOBIN 37.6 pg 25.6-32.2 H ([facility]) (test code = 751) MEAN CORPUSCULAR HEMOGLOBIN [...] 3438) Received comment: User comments: Slide comments:POCT-GLUCOSE [id number] 08:56:00 Test Item Value Reference Range Interpretation Comments POC-GLUCOSE METER 194 mg/dL 70-110 H TESTED AT [facility] 6720 (BEAKER) (test code = DAVE Borja [place] 1538) [address] [id number] 06:11:00 Test Item Value Reference Range Interpretation Comments MAGNESIUM (BEAKER) (test code = 1.4 mg/dL 1.6-2.6 L 627) BASIC METABOLIC [id number] 06:11:00 Test Item Value Reference Range Interpretation [...] NOT APPLICABLE FOR DIALYSIS PATIEN TS. POCT-GLUCOSE [id number] 21:53:00 Test Item Value Reference Range Interpretation Comments POC-GLUCOSE METER 225 mg/dL 70-110 H TESTED AT [facility] 6720 (BEAKER) (test code = DAVE Borja [place] 1538) [address] POCT-GLUCOSE [id number] 19:30:00 Test Item Value Reference Range Interpretation Comments POC-GLUCOSE METER 225 mg/dL 70-110 H TESTED AT [facility] 6720 (BEAKER) (test code = DAVE Borja [place] 1538) [address] POCT-GLUCOSE [id number] 15:02:00 Test Item Value Reference Range Interpretation Comments POC-GLUCOSE METER 179 mg/dL 70-110 H TESTED AT [place] [address] ([facility]) (test code = DAVE Borja [facility] 1538) [address] [id number] 13:04:00 Test Item Value Reference Range Interpretation Comments MAGNESIUM (BEAKER) 1.5 mg/dL 1.6-2.6 L Specimen slightly (test code = 627) hemolyzed Check Serum Magnesium level 2 hours after IV magnesium replacement.Every 8 hours PRN for Creatinine greater than or equal to 2 mg/dL.[id number] 13:04:00 Test Item Value Reference Range Interpretation Comments POTASSIUM (BEAKER) 4.2 meq/L 3.5-5.1 Specimen slightly (test code = 379) hemolyzed Check Serum Magnesium level 2 hours after IV magnesium replacement.Every 8 hours PRN for Creatinine greater than or equal to 2 mg/dL.POCT-GLUCOSE [id number] 08:24:00 Test Item Value Reference Range Interpretation Comments POC-GLUCOSE METER 189 mg/dL 70-110 H TESTED AT [place] [address] ([facility]) (test code = DAVE Borja [facility] 1538) [address] CBC W/PLT COUNT & AUTO [id number] 08:03:00 Test Item Value Reference Range Interpretation [...] 3438) Received comment: User comments: Slide comments:CALCIUM, [id number] 05:17:00 Test Item Value Reference Range Interpretation Comments CALCIUM IONIZED (BEAKER) (test 1.26 mmol/L 1.12-1.27 code = 698) PH, BLOOD (BEAKER) (test code = 7.42 1810) [id number] 05:09:00 Test Item Value Reference Range Interpretation Comments PHOSPHORUS (BEAKER) (test code = 2.0 mg/dL 2.3-4.7 L 604) [id number] 05:09:00 Test Item Value Reference Range Interpretation Comments MAGNESIUM (BEAKER) (test code = 1.6 mg/dL 1.6-2.6 627) BASIC METABOLIC [id number] 05:09:00 Test Item Value Reference Range Interpretation [...] NOT APPLICABLE FOR DIALYSIS PATIEN TS. POCT-GLUCOSE [id number] 23:39:00 Test Item Value Reference Range Interpretation Comments POC-GLUCOSE METER 200 mg/dL 70-110 H TESTED AT [facility] 6720 (BEAKER) (test code = DAVE Borja [place] 1538) [address] [id number] 22:42:00 Test Item Value Reference Range Interpretation Comments MAGNESIUM (BEAKER) (test code = 1.5 mg/dL 1.6-2.6 L 627) POTASSIUM-STAT [id number] 22:24:00 Test Item Value Reference Range Interpretation Comments POTASSIUM (BEAKER) (test code = 3.7 meq/L 3.6-5.5 379) BLOOD GAS, [id number] 22:24:00 Test Item Value Reference Range Interpretation [...] (test code = 1819) 28.0 % CALCIUM, [id number] 22:23:00 Test Item Value Reference Range Interpretation Comments CALCIUM IONIZED ([facility]) (test 1.21 mmol/L 1.12-1.27 code = 698) PH, BLOOD ([facility]) (test code = 7.44 1810) POCT-GLUCOSE [id number] 17:12:00 Test Item Value Reference Range Interpretation Comments POC-GLUCOSE METER 199 mg/dL 70-110 H TESTED AT [place] [address] ([facility]) (test code = DAVE Borja [facility] 1538) [address] POCT-GLUCOSE [id number] 12:12:00 Test Item Value Reference Range Interpretation Comments POC-GLUCOSE METER 184 mg/dL 70-110 H TESTED AT [place] [address] ([facility]) (test code = DAVE Borja [facility] 1538) [address] POCT-GLUCOSE [id number] 08:49:00 Test Item Value Reference Range Interpretation Comments POC-GLUCOSE METER 195 mg/dL 70-110 H TESTED AT [place] [address] ([facility]) (test code = DAVE Borja [facility] 1538) [address] RAD, CHEST, 1 VIEW, NON [id number] 08:36:00Reason for exam:->s/p CV surgeryShould this be [...] Stable surgical changes.Additional findings: None. Signed: Cristo Posadasepjamal Verified Date/Time: 08/08/2018 08:36:43 Reading Location: [address] Neuro Reading Room CBC W/PLT COUNT & AUTO [id number] 05:32:00 Test Item Value Reference Range Interpretation [...] 0-1 PERCENT (BEAKER) (test code = 2801) [id number] 05:14:00 Test Item Value Reference Range Interpretation Comments MAGNESIUM (BEAKER) (test code = 2.1 mg/dL 1.6-2.6 627) BASIC METABOLIC [id number] 05:14:00 Test Item Value Reference Range Interpretation [...] NOT APPLICABLE FOR DIALYSIS PATIEN TS. CALCIUM, [id number] 05:07:00 Test Item Value Reference Range Interpretation Comments CALCIUM IONIZED (BEAKER) (test 1.21 mmol/L 1.12-1.27 code = 698) PH, BLOOD (BEAKER) (test code = 7.42 1810) BLOOD GAS, [id number] 05:06:00 Test Item Value Reference Range Interpretation [...] code = 1819) 28.0 % LACTIC ACID, [id number] 05:01:00 Test Item Value Reference Range Interpretation Comments LACTATE BLOOD ARTERIAL (2) 1.0 mmol/L 0.5-2.2 (BEAKER) (test code = 2874) POCT-GLUCOSE [id number] 23:22:00 Test Item Value Reference Range Interpretation Comments POC-GLUCOSE METER 252 mg/dL 70-110 H TESTED AT [facility] 6720 (BEAKER) (test code = DAVE [place] 1538) [address] LACTIC ACID, [id number] 19:42:00 Test Item Value Reference Range Interpretation Comments LACTATE BLOOD ARTERIAL (2) 1.6 mmol/L 0.5-2.2 (BEAKER) (test code = 2874) BLOOD GAS, [id number] 19:33:00 Test Item Value Reference Range Interpretation [...] code = 1819) 36.0 % LACTIC ACID, [id number] 16:37:00 Test Item Value Reference Range Interpretation Comments LACTATE BLOOD ARTERIAL (2) 2.6 mmol/L 0.5-2.2 H (BEAKER) (test code = 2874) BLOOD GAS, [id number] 16:21:00 Test Item Value Reference Range Interpretation [...] code = 1819) 36.0 % BLOOD GAS, [id number] 15:01:00 Test Item Value Reference Range Interpretation [...] code = 1819) 36.0 % OXYGEN SATURATION, [id number] 14:58:00 Test Item Value Reference Range Interpretation Comments O2 SATURATION (MEASURED) (BEAKER) 63.8 % (test code = 1455) LACTIC ACID, [id number] 08:57:00 Test Item Value Reference Range Interpretation Comments LACTATE BLOOD ARTERIAL (2) 0.9 mmol/L 0.5-2.2 (BEAKER) (test code = 2874) RAD, CHEST, 1 VIEW, NON [id number] 06:53:00Reason for exam:->s/p CV surgeryShould this be [...] quadrant. Prior median sternotomy. Signed: Freddy Sheldon [facility] Verified Date/Time: 08/07/2018 06:53:26 Reading Location: [facility] C013Y CT Body Reading Room Electronically signedby: FREDDY SHELDON MD on 08/07/2018 06:53 [id number] 04:25:00 Test Item Value Reference Range Interpretation Comments PHOSPHORUS (BEAKER) (test code = 2.6 mg/dL 2.3-4.7 604) [id number] 04:25:00 Test Item Value Reference Range Interpretation Comments MAGNESIUM (BEAKER) (test code = 1.9 mg/dL 1.6-2.6 627) BASIC METABOLIC [id number] 04:25:00 Test Item Value Reference Range Interpretation [...] 0-0 (BEAKER) (test code = 413) CALCIUM, [id number] 03:31:00 Test Item Value Reference Range Interpretation Comments CALCIUM IONIZED (BEAKER) (test 1.23 mmol/L 1.12-1.27 code = 698) PH, BLOOD (BEAKER) (test code = 7.40 1810) BLOOD GAS, [id number] 03:19:00 Test Item Value Reference Range Interpretation [...] (BEAKER) (test code = 1819) 32.0 % [id number] 22:08:00 Test Item Value Reference Range Interpretation Comments MAGNESIUM (BEAKER) (test code = 2.2 mg/dL 1.6-2.6 627) BLOOD GAS, [id number] 22:00:00 Test Item Value Reference Range Interpretation [...] (test code = 1819) 32.0 % GLUCOSE-STAT [id number] 22:00:00 Test Item Value Reference Range Interpretation Comments GLUCOSE RANDOM (BEAKER) (test code 187 mg/dL 70-110 H = 652) HGB/HCT (H&H) - STAT [id number] 22:00:00 Test Item Value Reference Range Interpretation Comments HEMOGLOBIN (BEAKER) (test code = 10.3 g/dL 12.0-15.0 L 410) HEMATOCRIT ([facility]) (test code = 30.0 % 36.0-45.0 L 411) SODIUM NA-STAT [id number] 21:59:00 Test Item Value Reference Range Interpretation Comments SODIUM (BEAKER) (test code = 381) 137 meq/L 135-148 POTASSIUM-STAT [id number] 21:59:00 Test Item Value Reference Range Interpretation Comments POTASSIUM (BEAKER) (test code = 4.0 meq/L 3.6-5.5 379) OXYGEN SATURATION, [id number] 21:59:00 Test Item Value Reference Range Interpretation Comments O2 SATURATION (MEASURED) (AKER) 70.7 % (test code = 1455) CALCIUM, [id number] 21:59:00 Test Item Value Reference Range Interpretation Comments CALCIUM IONIZED (AKER) (test 1.23 mmol/L 1.12-1.27 code = 698) PH, BLOOD ([facility]) (test code = 7.41 1810) POCT-GLUCOSE [id number] 17:02:00 Test Item Value Reference Range Interpretation Comments POC-GLUCOSE METER 223 mg/dL 70-110 H TESTED AT [place] [address] ([facility]) (test code = DAVE Borja [facility] 1538) [address] POCT-GLUCOSE [id number] 12:13:00 Test Item Value Reference Range Interpretation Comments POC-GLUCOSE METER 109 mg/dL 70-110 TESTED AT [place] [address] ([facility]) (test code = DAVE Borja [facility] 1538) [address] POCT-GLUCOSE [id number] 10:41:00 Test Item Value Reference Range Interpretation Comments POC-GLUCOSE METER 105 mg/dL 70-110 TESTED AT [place] [address] ([facility]) (test [facility] = [facility] 1538) [address] COMPREHENSIVE METABOLIC [id number] 09:37:00 Test Item Value Reference Range Interpretation Comments TOTAL PROTEIN 5.7 gm/dL 6.0-8.3 L ([facility]) (test code = 770) ALBUMIN ([facility]) 4.0 g/dL 3.5-5.0 (test code = 1145) ALKALINE PHOSPHATASE 44 U/L 40-150 ([facility]) (test code = 346) BILIRUBIN TOTAL 1.0 [...] APPLICABLE FOR DIALYSIS PATIEN TS. BLOOD GAS, [id number] 08:39:00 Test Item Value Reference Range Interpretation [...] 40.0 % RAD, CHEST, 1 VIEW, NON [id number] 07:24:00Reason for exam:->s/p CV surgeryShould this be [...] MDReport Verified Date/Time: 08/06/2018 07:24:21 Reading Location: [facility] Radiology ReadingRoom POCT-GLUCOSE [id number] 06:19:00 Test Item Value Reference Range Interpretation Comments POC-GLUCOSE METER 157 mg/dL 70-110 H TESTED AT [place] [address] ([facility]) (test code = [facility] Huong [facility] 1538) [address] POCT-GLUCOSE [id number] 06:19:00 Test Item Value Reference Range Interpretation Comments POC-GLUCOSE METER 162 mg/dL 70-110 H TESTED AT [place] [address] ([facility]) (test code = [facility] 1538) [address] POCT-GLUCOSE [id number] 06:18:00 Test Item Value Reference Range Interpretation Comments POC-GLUCOSE METER 120 mg/dL 70-110 H TESTED AT [place] [address] ([facility]) (test code = [facility] 1538) [address] [id number] 04:49:00 Test Item Value Reference Range Interpretation [...] than or equal to 2 mg/dL.BASIC METABOLIC [id number] 04:49:00 Test Item Value Reference Range Interpretation [...] than or equal to 2 mg/dL.LACTIC ACID, [id number] 04:44:00 Test Item Value Reference Range Interpretation [...] (BEAKER) (test code = 413) OXYGEN SATURATION, [id number] 04:32:00 Test Item Value Reference Range Interpretation Comments O2 SATURATION (MEASURED) (BEAKER) 69.8 % (test code = 1455) CALCIUM, [id number] 04:28:00 Test Item Value Reference Range Interpretation Comments CALCIUM IONIZED (BEAKER) (test 1.19 mmol/L 1.12-1.27 code = 698) PH, BLOOD (BEAKER) (test code = 7.41 1810) BLOOD GAS, [id number] 04:27:00 Test Item Value Reference Range Interpretation [...] (test code = 1819) 40.0 % POCT-GLUCOSE [id number] 02:20:00 Test Item Value Reference Range Interpretation Comments POC-GLUCOSE METER 165 mg/dL 70-110 H TESTED AT [place] [address] ([facility]) (test code = DAVE Borja [place] 1538) [address] POCT-GLUCOSE [id number] 02:20:00 Test Item Value Reference Range Interpretation Comments POC-GLUCOSE METER 180 mg/dL 70-110 H TESTED AT [place] [address] ([facility]) (test code = DAVE Borja [place] 1538) [address] POCT-GLUCOSE [id number] 02:20:00 Test Item Value Reference Range Interpretation Comments POC-GLUCOSE METER 191 mg/dL 70-110 H TESTED AT [place] [address] ([facility]) (test code = DAVE Borja [facility] 1538) [address] CALCIUM, [id number] 00:05:00 Test Item Value Reference Range Interpretation Comments CALCIUM IONIZED (BEAKER) (test 1.19 mmol/L 1.12-1.27 code = 698) PH, BLOOD (BEAKER) (test code = 7.37 1810) LACTIC ACID, [id number] 00:05:00 Test Item Value Reference Range Interpretation Comments LACTATE BLOOD 4.1 mmol/L 0.5-2.2 H Specimen sligh tly ARTERIAL (2) (BEAKER) hemoly zed (test code = 2874) BLOOD GAS, [id number] 00:04:00 Test Item Value Reference Range Interpretation [...] (test code = 1819) 40.0 % GLUCOSE-STAT [id number] 00:04:00 Test Item Value Reference Range Interpretation Comments GLUCOSE RANDOM (BEAKER) (test code 173 mg/dL 70-110 H = 652) HGB/HCT (H&H) - STAT [id number] 00:04:00 Test Item Value Reference Range Interpretation Comments HEMOGLOBIN (BEAKER) (test code = 8.6 g/dL 12.0-15.0 L 410) HEMATOCRIT (BEAKER) (test code = 25.0 % 36.0-45.0 L 411) [id number] 00:02:00 Test Item Value Reference Range Interpretation Comments MAGNESIUM (BEAKER) (test code = 2.4 mg/dL 1.6-2.6 627) Check Serum Magnesium level 2 hours after IV magnesium replacement.SODIUM NA- STAT [id number] 00:00:00 Test Item Value Reference Range Interpretation Comments SODIUM (BEAKER) (test code = 381) 137 meq/L 135-148 POTASSIUM-STAT [id number] 00:00:00 Test Item Value Reference Range Interpretation Comments POTASSIUM (BEAKER) (test code = 4.1 meq/L 3.6-5.5 379) POCT-GLUCOSE [id number] 22:43:00 Test Item Value Reference Range Interpretation Comments POC-GLUCOSE METER 182 mg/dL 70-110 H TESTED AT [place] [address] ([facility]) (test code = [facility] 1538) [address] POCT-GLUCOSE [id number] 22:43:00 Test Item Value Reference Range Interpretation Comments POC-GLUCOSE METER 174 mg/dL 70-110 H TESTED AT [place] [address] ([facility]) (test code = [facility] 1538) [address] POCT-GLUCOSE [id number] 22:43:00 Test Item Value Reference Range Interpretation Comments POC-GLUCOSE METER 150 mg/dL 70-110 H TESTED AT [place] [address] ([facility]) (test code = [facility] 1538) [address] CALCIUM, [id number] 19:54:00 Test Item Value Reference Range Interpretation Comments CALCIUM IONIZED (BEAKER) (test 1.16 mmol/L 1.12-1.27 code = 698) PH, BLOOD (BEAKER) (test code = 7.39 1810) LACTIC ACID, [id number] 19:40:00 Test Item Value Reference Range Interpretation Comments LACTATE BLOOD ARTERIAL (2) 2.3 mmol/L 0.5-2.2 H (BEAKER) (test code = 2874) [id number] 19:38:00 Test Item Value Reference Range Interpretation Comments MAGNESIUM (BEAKER) (test code = 2.2 mg/dL 1.6-2.6 627) SODIUM NA-STAT [id number] 19:24:00 Test Item Value Reference Range Interpretation Comments SODIUM (BEAKER) (test code = 381) 135 meq/L 135-148 POTASSIUM-STAT [id number] 19:24:00 Test Item Value Reference Range Interpretation Comments POTASSIUM (BEAKER) (test code = 3.7 meq/L 3.6-5.5 379) BLOOD GAS, [id number] 19:24:00 Test Item Value Reference Range Interpretation [...] (test code = 1819) 40.0 % GLUCOSE-STAT [id number] 19:24:00 Test Item Value Reference Range Interpretation Comments GLUCOSE RANDOM (BEAKER) (test code 163 mg/dL 70-110 H = 652) HGB/HCT (H&H) - STAT [id number] 19:24:00 Test Item Value Reference Range Interpretation Comments HEMOGLOBIN (BEAKER) (test code = 9.5 g/dL 12.0-15.0 L 410) HEMATOCRIT (BEAKER) (test code = 28.0 % 36.0-45.0 L 411) OXYGEN SATURATION, [id number] 19:23:00 Test Item Value Reference Range Interpretation Comments O2 SATURATION (MEASURED) (BEAKER) 73.8 % (test code = 1455) POCT-GLUCOSE [id number] 17:19:00 Test Item Value Reference Range Interpretation Comments POC-GLUCOSE METER 128 mg/dL 70-110 H TESTED AT [place] [address] ([facility]) (test code = [facility] [place] 1538) [address] OXYGEN SATURATION, [id number] 17:19:00 Test Item Value Reference Range Interpretation Comments O2 SATURATION (MEASURED) (BEAKER) 60.6 % (test code = 1455) POCT-GLUCOSE [id number] 17:19:00 Test Item Value Reference Range Interpretation Comments POC-GLUCOSE METER 158 mg/dL 70-110 H TESTED AT [place] [address] ([facility]) (test code = [facility] 1538) [address] LACTIC ACID, [id number] 17:01:00 Test Item Value Reference Range Interpretation Comments LACTATE BLOOD ARTERIAL (2) 1.5 mmol/L 0.5-2.2 (AKER) (test code = 2874) HEMOGLOBIN AND [id number] 16:49:00 Test Item Value Reference Range Interpretation Comments HEMOGLOBIN (BEAKER) (test code = 8.8 GM/DL 11.2-15.7 L 410) HEMATOCRIT (BEAKER) (test code = 26.5 % 34.1-44.9 L 411) POCT-GLUCOSE [id number] 16:31:00 Test Item Value Reference Range Interpretation Comments POC-GLUCOSE METER 191 mg/dL 70-110 H TESTED AT [place] [address] ([facility]) (test code = [facility] 1538) [address] BLOOD GAS, [id number] 16:26:00 Test Item Value Reference Range Interpretation [...] (BEAKER) (test code = 1819) 40.0 % [id number] 13:48:00 Test Item Value Reference Range Interpretation Comments MAGNESIUM (BEAKER) 2.2 mg/dL 1.6-2.6 Specimen slightly (test code = 627) hemolyzed [id number] 13:48:00 Test Item Value Reference Range Interpretation Comments PHOSPHORUS (BEAKER) 4.2 mg/dL 2.3-4.7 Specimen slightly (test code = 604) hemolyzed BASIC METABOLIC [id number] 13:48:00 Test Item Value Reference Range Interpretation [...] APPLICABLE FOR DIALYSIS PATIEN TS. LACTIC ACID, [id number] 13:42:00 Test Item Value Reference Range Interpretation Comments LACTATE BLOOD 1.1 mmol/L 0.5-2.2 Specimen sligh tly ARTERIAL (2) (BEAKER) hemoly zed (test code = 2874) RAD, CHEST, 1 VIEW, NON [id number] 13:35:00Reason for exam:->POST OPShould this be performed [...] port Verified Date/Time: 08/05/2018 13:35:26 Reading Location: [facility] Radiology Reading Room CBC W/PLT COUNT & AUTO [id number] 13:33:00 Test Item Value Reference Range Interpretation [...] (BEAKER) (test code = 2801) BLOOD GAS, [id number] 13:27:00 Test Item Value Reference Range Interpretation [...] code = 1819) 60.0 % OXYGEN SATURATION, [id number] 13:21:00 Test Item Value Reference Range Interpretation Comments O2 SATURATION (MEASURED) (BEAKER) 64.2 % (test code = 1455) [id number] 12:22:00 Test Item Value Reference Range Interpretation Comments FIBRINOGEN LEVEL (BEAKER) (test 225 mg/dl 225-434 code = 658) [id number] 12:22:00 Test Item Value Reference Range Interpretation Comments PARTIAL THROMBOPLASTIN TIME 33.4 seconds 22.5-36.0 (BEAKER) (test code = 760) PROTHROMBIN [id number] 12:21:00 Test Item Value Reference Range Interpretation [...] L code = 756) MEAN PLATELET VOLUME ([facility]) 10.5 fL 9.4-12.3 (test code = 754) NUCLEATED RED BLOOD CELLS 1 /100 WBC 0-0 H ([facility]) (test code = 413) [id number] 11:30:00 Test Item Value Reference Range Interpretation Comments ACTIVATED CLOTTING TIME 109 sec TEST ED AT [place] [address] ([facility]) (test code = DAVE [place] 441) [address] [id number] 11:30:00 Test Item Value Reference Range Interpretation Comments ACTIVATED CLOTTING TIME 433 sec TEST ED AT [place] [address] ([facility]) (test code = DAVE [place] 441) [address] [id number] 11:30:00 Test Item Value Reference Range Interpretation Comments ACTIVATED CLOTTING TIME 532 sec TEST ED AT [place] [address] ([facility]) (test code = DAVE Borja [place] 441) [address] [id number] 11:30:00 Test Item Value Reference Range Interpretation Comments ACTIVATED CLOTTING TIME 648 sec TEST ED AT [place] [address] ([facility]) (test code = DAVE [place] 441) [address] [id number] 11:30:00 Test Item Value Reference Range Interpretation Comments ACTIVATED CLOTTING TIME 483 sec TEST ED AT [place] [address] ([facility]) (test code = DAVE Borja [place] 441) [address] [id number] 11:30:00 Test Item Value Reference Range Interpretation Comments ACTIVATED CLOTTING TIME 395 sec TEST ED AT [place] [address] ([facility]) (test code = DAVE [place] 441) [address] CALCIUM, [id number] 11:21:00 Test Item Value Reference Range Interpretation Comments CALCIUM IONIZED ([facility]) (test 1.31 mmol/L 1.12-1.27 H code = 698) PH, BLOOD (AKER) (test code = 7.38 1810) BLOOD GAS, [id number] 11:21:00 Test Item Value Reference Range Interpretation [...] code = 1819) 100.0 % SODIUM NA-STAT [id number] 11:21:00 Test Item Value Reference Range Interpretation Comments SODIUM (BEAKER) (test code = 381) 134 meq/L 135-148 L GLUCOSE-STAT [id number] 11:21:00 Test Item Value Reference Range Interpretation Comments GLUCOSE RANDOM (BEAKER) (test code 185 mg/dL 70-110 H = 652) HGB/HCT (H&H) - STAT [id number] 11:21:00 Test Item Value Reference Range Interpretation Comments HEMOGLOBIN (BEAKER) (test code = 8.6 g/dL 12.0-15.0 L 410) HEMATOCRIT (BEAKER) (test code = 25.0 % 36.0-45.0 L 411) POTASSIUM-STAT [id number] 11:20:00 Test Item Value Reference Range Interpretation Comments POTASSIUM (BEAKER) (test code = 3.8 meq/L 3.6-5.5 379) POTASSIUM-STAT [id number] 10:50:00 Test Item Value Reference Range Interpretation Comments POTASSIUM (BEAKER) (test code = 4.7 meq/L 3.6-5.5 379) BLOOD GAS, [id number] 10:50:00 Test Item Value Reference Range Interpretation [...] code = 1819) 65.0 % SODIUM NA-STAT [id number] 10:50:00 Test Item Value Reference Range Interpretation Comments SODIUM (BEAKER) (test code = 381) 132 meq/L 135-148 L GLUCOSE-STAT [id number] 10:50:00 Test Item Value Reference Range Interpretation Comments GLUCOSE RANDOM (BEAKER) (test code 185 mg/dL 70-110 H = 652) HGB/HCT (H&H) - STAT [id number] 10:50:00 Test Item Value Reference Range Interpretation Comments HEMOGLOBIN (BEAKER) (test code = 9.2 g/dL 12.0-15.0 L 410) HEMATOCRIT (BEAKER) (test code = 27.0 % 36.0-45.0 L 411) POTASSIUM-STAT [id number] 10:23:00 Test Item Value Reference Range Interpretation Comments POTASSIUM (BEAKER) (test code = 5.2 meq/L 3.6-5.5 379) BLOOD GAS, [id number] 10:23:00 Test Item Value Reference Range Interpretation [...] (test code = 1819) 65.0 % GLUCOSE-STAT [id number] 10:23:00 Test Item Value Reference Range Interpretation Comments GLUCOSE RANDOM (BEAKER) (test code 170 mg/dL 70-110 H = 652) HGB/HCT (H&H) - STAT [id number] 10:23:00 Test Item Value Reference Range Interpretation Comments HEMOGLOBIN (BEAKER) (test code = 8.9 g/dL 12.0-15.0 L 410) HEMATOCRIT (BEAKER) (test code = 26.0 % 36.0-45.0 L 411) SODIUM NA-STAT [id number] 10:23:00 Test Item Value Reference Range Interpretation Comments SODIUM (BEAKER) (test code = 381) 132 meq/L 135-148 L BLOOD GAS, [id number] 09:58:00 Test Item Value Reference Range Interpretation [...] code = 1819) 60.0 % SODIUM NA-STAT [id number] 09:58:00 Test Item Value Reference Range Interpretation Comments SODIUM (BEAKER) (test code = 381) 132 meq/L 135-148 L GLUCOSE-STAT [id number] 09:58:00 Test Item Value Reference Range Interpretation Comments GLUCOSE RANDOM (BEAKER) (test code 160 mg/dL 70-110 H = 652) HGB/HCT (H&H) - STAT [id number] 09:58:00 Test Item Value Reference Range Interpretation Comments HEMOGLOBIN (BEAKER) (test code = 8.9 g/dL 12.0-15.0 L 410) HEMATOCRIT (BEAKER) (test code = 26.0 % 36.0-45.0 L 411) POTASSIUM-STAT [id number] 09:56:00 Test Item Value Reference Range Interpretation Comments POTASSIUM (BEAKER) (test code = 4.8 meq/L 3.6-5.5 379) BLOOD GAS, [id number] 09:29:00 Test Item Value Reference Range Interpretation [...] code = 1819) 80.0 % SODIUM NA-STAT [id number] 09:29:00 Test Item Value Reference Range Interpretation Comments SODIUM (BEAKER) (test code = 381) 131 meq/L 135-148 L GLUCOSE-STAT [id number] 09:29:00 Test Item Value Reference Range Interpretation Comments GLUCOSE RANDOM (BEAKER) (test code 180 mg/dL 70-110 H = 652) HGB/HCT (H&H) - STAT [id number] 09:29:00 Test Item Value Reference Range Interpretation Comments HEMOGLOBIN (BEAKER) (test code = 7.1 g/dL 12.0-15.0 L 410) HEMATOCRIT (BEAKER) (test code = 21.0 % 36.0-45.0 L 411) POTASSIUM-STAT [id number] 09:28:00 Test Item Value Reference Range Interpretation Comments POTASSIUM (BEAKER) (test code = 5.1 meq/L 3.6-5.5 379) CALCIUM, [id number] 08:02:00 Test Item Value Reference Range Interpretation Comments CALCIUM IONIZED (BEAKER) (test 1.14 mmol/L 1.12-1.27 code = 698) PH, BLOOD (BEAKER) (test code = 7.54 1810) BLOOD GAS, [id number] 08:02:00 Test Item Value Reference Range Interpretation [...] code = 1819) 100.0 % SODIUM NA-STAT [id number] 08:02:00 Test Item Value Reference Range Interpretation Comments SODIUM (BEAKER) (test code = 381) 134 meq/L 135-148 L HGB/HCT (H&H) - STAT [id number] 08:02:00 Test Item Value Reference Range Interpretation Comments HEMOGLOBIN (BEAKER) (test code = 11.2 g/dL 12.0-15.0 L 410) HEMATOCRIT (BEAKER) (test code = 33.0 % 36.0-45.0 L 411) GLUCOSE-STAT [id number] 08:01:00 Test Item Value Reference Range Interpretation Comments GLUCOSE RANDOM (BEAKER) (test code 106 mg/dL 70-110 = 652) POTASSIUM-STAT [id number] 08:01:00 Test Item Value Reference Range Interpretation Comments POTASSIUM (BEAKER) (test code = 3.8 meq/L 3.6-5.5 379) POCT-GLUCOSE [id number] 05:58:00 Test Item Value Reference Range Interpretation Comments POC-GLUCOSE METER 114 mg/dL 70-110 H TESTED AT [facility] 6720 (BEAKER) (test code = DAVE Borja [place] 1538) [id number] TISSUE [id number] 15:29:00Surgical Pathology Report Case: [id number] Authorizing Provider: Sabas Aquino, Collected: 07/28/2018 1410 Ordering Location: [facility] Received: 07/28/2018 1614 PERIOPERATIVE SERVICES Pathologist: Alvaro Chavez MD Specimen: Plaque, Carotid PART A RIGHT CAROTIDPLAQUE, ENDARTERECTOMY:CALCIFIC ATHEROSCLEROSIS. Signing Pathologist Direct Phone Line: [phone] signed by Alvaro Chavez MD on 08/02/2018 at 3:29 [id number], [id number] stenosis, rightRight carotidA. Received in formalin labeled "carotid" a 3 x 1.3 x 1 cm foreman-pink vascular segment. Foreman- yellow and calcified plaque is identified. Enrollment Processor sections are submitted in cassette A1 following decalcification. CG/pl Performed.POCT-GLUCOSE METER 2018-07-31 16:25:00 Test Item Value Reference Range Interpretation Comments POC-GLUCOSE METER 173 mg/dL 70-110 H TESTED AT [place] [address] ([facility]) (test code = [facility] 1538) [id number] POCT-GLUCOSE [id number] 12:08:00 Test Item Value Reference Range Interpretation Comments POC-GLUCOSE METER 194 mg/dL 70-110 H TESTED AT [place] [address] ([facility]) (test code = [facility] 1538) [address] POCT-GLUCOSE [id number] 07:15:00 Test Item Value Reference Range Interpretation Comments POC-GLUCOSE METER 228 mg/dL 70-110 H TESTED AT [place] [address] ([facility]) (test code = [facility] 1538) [id number] CBC W/PLT COUNT & AUTO [id number] 06:14:00 Test Item Value Reference Range Interpretation Comments WHITE BLOOD CELL COUNT ([facility]) 6.6 K/ L 3.5-10.5 (test code = 775) RED BLOOD CELL COUNT ([facility]) 2.53 M/ L 3.93-5.22 L (test code = 761) HEMOGLOBIN ([facility]) (test code = 9.9 GM/DL 11.2-15.7 L 410) HEMATOCRIT ([facility]) (test code = 29.3 % 34.1-44.9 L 411) MEAN CORPUSCULAR VOLUME ([facility]) 115.8 fL 79.4-94.8 H (test code = [...] PERCENT (BEAKER) (test code = 2801) CALCIUM, [id number] 05:52:00 Test Item Value Reference Range Interpretation Comments CALCIUM IONIZED (BEAKER) (test 1.24 mmol/L 1.12-1.27 code = 698) PH, BLOOD (BEAKER) (test code = 7.40 1810) POCT-GLUCOSE [id number] 22:03:00 Test Item Value Reference Range Interpretation Comments POC-GLUCOSE METER 217 mg/dL 70-110 H TESTED AT [facility] 6720 (BEAKER) (test code = DAVE [place] 1538) [address] POCT-GLUCOSE [id number] 17:53:00 Test Item Value Reference Range Interpretation Comments POC-GLUCOSE METER 252 mg/dL 70-110 H TESTED AT [facility] ([facility]) (test code = DAVE Borja [facility] 1538) [address] RAD, ABDOMEN/KUB, 1 VIEW [id number] 15:31:00Reason for exam:->nauseaFINAL REPORT EXAM: Frontal chest [...] the right upper quadrant. Signed: Gurmeet Velazco Verified Date/Time: 07/30/2018 15:31:29 Reading Location: [facility] Electronically signed by: GURMEET VELAZCO on 03:31 PMPOCT-GLUCOSE [id number] 12:34:00 Test Item Value Reference Range Interpretation Comments POC-GLUCOSE METER 244 mg/dL 70-110 H TESTED AT [facility] ([facility]) (test code = DAVE Borja [facility] 1538) [address] POCT-GLUCOSE [id number] 09:16:00 Test Item Value Reference Range Interpretation Comments POC-GLUCOSE METER 237 mg/dL 70-110 H TESTED AT [facility] ([facility]) (test code = DAVE Borja [facility] 1538) [address] CALCIUM, [id number] 06:24:00 Test Item Value Reference Range Interpretation Comments CALCIUM IONIZED (BEAKER) (test 1.22 mmol/L 1.12-1.27 code = 698) PH, BLOOD (BEAKER) (test code = 7.39 1810) [id number] 05:34:00 Test Item Value Reference Range Interpretation Comments PHOSPHORUS (BEAKER) (test code = 2.4 mg/dL 2.3-4.7 604) [id number] 05:34:00 Test Item Value Reference Range Interpretation Comments MAGNESIUM (BEAKER) (test code = 1.5 mg/dL 1.6-2.6 L 627) BASIC METABOLIC [id number] 05:34:00 Test Item Value Reference Range Interpretation [...] PATIEN TS. CBC W/PLT COUNT & AUTO [id number] 05:27:00 Test Item Value Reference Range Interpretation [...] PERCENT (BEAKER) (test code = 2801) POCT-GLUCOSE [id number] 21:42:00 Test Item Value Reference Range Interpretation Comments POC-GLUCOSE METER 186 mg/dL 70-110 H TESTED AT [place] [address] ([facility]) [facility] 1538) [address] POCT-GLUCOSE [id number] 18:04:00 Test Item Value Reference Range Interpretation Comments POC-GLUCOSE METER 162 mg/dL 70-110 H TESTED AT [place] [address] ([facility]) ([facility] = [facility] 1538) [address] POCT-GLUCOSE [id number] 13:39:00 Test Item Value Reference Range Interpretation Comments POC-GLUCOSE METER 109 mg/dL 70-110 TESTED AT [place] [address] ([facility]) ([facility] = [facility] 1538) [address] POCT-GLUCOSE [id number] 13:39:00 Test Item Value Reference Range Interpretation Comments POC-GLUCOSE METER 169 mg/dL 70-110 H TESTED AT [place] [address] ([facility]) (test code = DAVE Borja [facility] 1538) [address] POCT-GLUCOSE [id number] 13:39:00 Test Item Value Reference Range Interpretation Comments POC-GLUCOSE METER 202 mg/dL 70-110 H TESTED AT [place] [address] ([facility]) (test code = DAVE Borja [facility] 1538) [address] POCT-GLUCOSE [id number] 12:28:00 Test Item Value Reference Range Interpretation Comments POC-GLUCOSE METER 175 mg/dL 70-110 H TESTED AT [place] [address] ([facility]) (test code = DAVE Borja [facility] 1538) [address] POCT-GLUCOSE [id number] 10:45:00 Test Item Value Reference Range Interpretation Comments POC-GLUCOSE METER 181 mg/dL 70-110 H TESTED AT [place] [address] ([facility]) (test code = DAVE Borja [facility] 1538) [address] POCT-GLUCOSE [id number] 09:08:00 Test Item Value Reference Range Interpretation Comments POC-GLUCOSE METER 90 mg/dL 70-110 TESTED AT [place] [address] ([facility]) (test code = DAVE Borja [facility] [address] 1538) POCT-GLUCOSE [id number] 09:08:00 Test Item Value Reference Range Interpretation Comments POC-GLUCOSE METER 78 mg/dL 70-110 TESTED AT [place] [address] ([facility]) (test [facility] = [facility] [address] 1538) RAD, CHEST, 1 VIEW, NON [id number] 07:37:00Reason for exam:->POST OPShould this be performed at the bedside?->YesFINAL REPORT CLINICAL HISTORY: POST OP TECHNIQUE: 1 view of the chest. COMPARISON: 07/28/2018 IMPRESSION: There are increased bilateral airspace opacities with suspected trace bilateral pleural effusions. The cardiomediastinal silhouette is magnified by technique. Signed: Annamaria Vargas Verified Date/Time: 07/29/2018 07:37:56 Reading Location: [facility] Radiology Reading Room PHOSPHOR 2018-07-29 07:21:00 Test Item Value Reference Range Interpretation Comments PHOSPHORUS (BEAKER) (test code = 2.9 mg/dL 2.3-4.7 604) [id number] 07:21:00 Test Item Value Reference Range Interpretation Comments MAGNESIUM (BEAKER) (test code = 2.0 mg/dL 1.6-2.6 627) BASIC METABOLIC [id number] 07:21:00 Test Item Value Reference Range Interpretation [...] APPLICABLE FOR DIALYSIS PATIEN TS. BLOOD GAS, [id number] 06:00:00 Test Item Value Reference Range Interpretation [...] 44.0 % CBC W/PLT COUNT & AUTO [id number] 04:44:00 Test Item Value Reference Range Interpretation [...] (BEAKER) (test code = 2801) BLOOD GAS, [id number] 04:28:00 Test Item Value Reference Range Interpretation [...] (test code = 1819) 36.0 % CALCIUM, [id number] 04:27:00 Test Item Value Reference Range Interpretation Comments CALCIUM IONIZED (BEAKER) (test 1.22 mmol/L 1.12-1.27 code = 698) PH, BLOOD (BEAKER) (test code = 7.41 1810) POCT-GLUCOSE [id number] 01:35:00 Test Item Value Reference Range Interpretation Comments POC-GLUCOSE METER 220 mg/dL 70-110 H TESTED AT [place] [address] (BEAKER) (test code = DAVE [place] 1538) [address] POCT-GLUCOSE [id number] 01:35:00 Test Item Value Reference Range Interpretation Comments POC-GLUCOSE METER 258 mg/dL 70-110 H TESTED AT [place] [address] (BEAKER) (test code = DAVE [place] 1538) [address] POCT-GLUCOSE [id number] 01:35:00 Test Item Value Reference Range Interpretation Comments POC-GLUCOSE METER 263 mg/dL 70-110 H TESTED AT [place] [address] (BEAKER) (test code = DAVE [place] 1538) [address] HGB/HCT (H&H) - STAT [id number] 01:24:00 Test Item Value Reference Range Interpretation Comments HEMOGLOBIN (BEAKER) (test code = 11.8 g/dL 12.0-15.0 L 410) HEMATOCRIT (BEAKER) (test code = 35.0 % 36.0-45.0 L 411) BLOOD GAS, [id number] 01:24:00 Test Item Value Reference Range Interpretation [...] code = 1819) 36.0 % SODIUM NA-STAT [id number] 01:24:00 Test Item Value Reference Range Interpretation Comments SODIUM (BEAKER) (test code = 381) 134 meq/L 135-148 L GLUCOSE-STAT [id number] 01:24:00 Test Item Value Reference Range Interpretation Comments GLUCOSE RANDOM (BEAKER) (test code 195 mg/dL 70-110 H = 652) POTASSIUM-STAT [id number] 01:22:00 Test Item Value Reference Range Interpretation Comments POTASSIUM (BEAKER) (test code = 4.9 meq/L 3.6-5.5 379) POCT-GLUCOSE [id number] 22:27:00 Test Item Value Reference Range Interpretation Comments POC-GLUCOSE METER 235 mg/dL 70-110 H TESTED AT [facility] 6720 (BEAKER) (test code = DAVE Borja [place] 6948) [address] LACTIC ACID, [id number] 21:01:00 Test Item Value Reference Range Interpretation Comments LACTATE BLOOD 0.9 mmol/L 0.5-2.2 Specimen sligh tly ARTERIAL (2) (BEAKER) hemoly zed (test code = 2874) [id number] 20:58:00 Test Item Value Reference Range Interpretation Comments MAGNESIUM (BEAKER) 2.4 mg/dL 1.6-2.6 Specimen slightly (test code = 627) hemolyzed BLOOD GAS, [id number] 20:23:00 Test Item Value Reference Range Interpretation [...] (test code = 1819) 26.0 % GLUCOSE-STAT [id number] 20:23:00 Test Item Value Reference Range Interpretation Comments GLUCOSE RANDOM (BEAKER) (test code 223 mg/dL 70-110 H = 652) SODIUM NA-STAT [id number] 20:21:00 Test Item Value Reference Range Interpretation Comments SODIUM (BEAKER) (test code = 381) 136 meq/L 135-148 POTASSIUM-STAT [id number] 20:21:00 Test Item Value Reference Range Interpretation Comments POTASSIUM (BEAKER) (test code = 4.1 meq/L 3.6-5.5 379) HGB/HCT (H&H) - STAT [id number] 20:21:00 Test Item Value Reference Range Interpretation Comments HEMOGLOBIN (BEAKER) (test code = 12.2 g/dL 12.0-15.0 410) HEMATOCRIT (BEAKER) (test code = 36.0 % 36.0-45.0 411) CALCIUM, [id number] 20:21:00 Test Item Value Reference Range Interpretation Comments CALCIUM IONIZED (BEAKER) (test 1.25 mmol/L 1.12-1.27 code = 698) PH, BLOOD (BEAKER) (test code = 7.34 1810) RAD, CHEST, 1 VIEW, NON [id number] 18:36:00Reason for exam:->POST OPShould this be performed [...] MDReport Verified Date/Time: 07/28/2018 18:36:16 Reading Location: [address] Consult Reading Room POCT-GLUCOSE [id number] 16:38:00 Test Item Value Reference Range Interpretation Comments POC-GLUCOSE METER 215 mg/dL 70-110 H TESTED AT [facility] 6720 (BEAKER) (test code = DAVE Borja [place] 1538) [address] [id number] 15:42:00 Test Item Value Reference Range Interpretation Comments PHOSPHORUS (BEAKER) (test code = 3.5 mg/dL 2.3-4.7 604) [id number] 15:42:00 Test Item Value Reference Range Interpretation Comments MAGNESIUM (BEAKER) (test code = 1.3 mg/dL 1.6-2.6 L 627) BASIC METABOLIC [id number] 15:42:00 Test Item Value Reference Range Interpretation [...] APPLICABLE FOR DIALYSIS PATIEN TS. LACTIC ACID, [id number] 15:38:00 Test Item Value Reference Range Interpretation Comments LACTATE BLOOD 1.3 mmol/L 0.5-2.2 Specimen sligh tly ARTERIAL (2) (BEAKER) hemoly zed (test code = 2874) [id number] 15:36:00 Test Item Value Reference Range Interpretation [...] PERCENT (BEAKER) (test code = 2801) GLUCOSE-STAT [id number] 15:33:00 Test Item Value Reference Range Interpretation Comments GLUCOSE RANDOM (BEAKER) (test code 231 mg/dL 70-110 H = 652) BLOOD GAS, [id number] 15:31:00 Test Item Value Reference Range Interpretation [...] code = 1819) 44.0 % SODIUM NA-STAT [id number] 15:31:00 Test Item Value Reference Range Interpretation Comments SODIUM (BEAKER) (test code = 381) 135 meq/L 135-148 POTASSIUM-STAT [id number] 15:31:00 Test Item Value Reference Range Interpretation Comments POTASSIUM (BEAKER) (test code = 4.0 meq/L 3.6-5.5 379) HGB/HCT (H&H) - STAT [id number] 15:31:00 Test Item Value Reference Range Interpretation Comments HEMOGLOBIN (BEAKER) (test code = 12.2 g/dL 12.0-15.0 410) HEMATOCRIT (BEAKER) (test code = 36.0 % 36.0-45.0 411) [id number] 08:00:00 Test Item Value Reference Range Interpretation Comments MAGNESIUM (BEAKER) (test code = 1.9 mg/dL 1.6-2.6 627) BASIC METABOLIC [id number] 08:00:00 Test Item Value Reference Range Interpretation [...] PATIEN TS. CBC W/PLT COUNT & AUTO [id number] 07:23:00 Test Item Value Reference Range Interpretation [...] PERCENT (BEAKER) (test code = 2801) HEMOGLOBIN [id number] 23:04:00 Test Item Value Reference Range Interpretation Comments HEMOGLOBIN A1C (BEAKER) (test code = 7.7 % 4.3-6.1 H 368) POCT-GLUCOSE [id number] 23:03:00 Test Item Value Reference Range Interpretation Comments POC-GLUCOSE METER 261 mg/dL 70-110 H TESTED AT [facility] 6720 (BEAKER) (test code = [place] 1538) [address] COMPREHENSIVE METABOLIC [id number] 21:58:00 Test Item Value Reference Range Interpretation [...] PATIEN TS. CBC W/PLT COUNT & AUTO [id number] 21:33:00 Test Item Value Reference Range Interpretation [...]
[2020-11-21 17:18] LABS: Absolute Lymphocytes (CBC) 1.3 K/uL (0.7-4.9); Basophils % 0.5 % (0-1.3); MPV 10.5 fL (7.6-11.3); RBC Red Blood Cell Count 3.74 M/uL (3.86-4.86)
[2020-11-21 17:46] LABS: Albumin 3.1 g/dL (3.4-5.0); Bilirubin Direct 0.1 mg/dL (0-0.2); Bilirubin Total 0.7 mg/dL (0.2-1.0); Protein, Total 7.4 g/dL (6.4-8.2); Troponin (Emerg Dept Use Only) 0.13 ng/mL (0.0-0.045)
[2020-11-21 17:50] LABS: Magnesium 1.5 mg/dL (1.8-2.4); Potassium 3.9 mmol/L (3.5-5.1)
[2020-11-21] MEDS ORDERED: MECLIZINE HCL 12.5 MG TAB ONE ×2 (17:53→18:05)
[2020-11-21] MEDS ORDERED: FAMOTIDINE 20 MG/2 ML VIAL IV ONE (17:54)
[2020-11-21] MEDS ORDERED: ONDANSETRON 4 MG/2 ML VIAL ONE (17:54)
[2020-11-21] MEDS ORDERED: NA CHLORIDE 0.9% 500 ML ONE (17:54)
[2020-11-21 18:16] LABS: Blood Morphology Comment NOTED (NOT SEEN); Macrocytosis 1+; Platelet Estimate ADEQ; White Blood Cell Scan OK (OK)
[2020-11-21] MEDS ORDERED: Magnesium Sulfate 2gm IVPB 2 G/50 ML BAG IV ONE (18:42)
[2020-11-21 18:49] LABS: Protime INR 1.26
[2020-11-21 19:03] LABS: Urine Blood Negative (Negative); Urine Glucose Negative (Negative); Urine Protein Negative (Negative); Urine Specific Gravity 1.015 (1.005-1.030); Urine pH 5.5 (5.0-7.0)
--- NOTE | 2020-11-21 19:25 | RAD REPORT ---
EXAM DESCRIPTION: CT - Head Brain Wo Cont - 11/21/2020 7:14 pm CLINICAL HISTORY: DIZZINESS Headache, drowsiness COMPARISON: Brain W/Wo Cont dated 05/25/2020 TECHNIQUE: All CT scans are performed using dose optimization technique as appropriate and may inclu de automated exposure control or mA/KV adjustment according to patient size. FINDINGS: No intracranial hemorrhage, hydrocephalus or extra-axial fluid collection.Moderate brain a trophy is seen.No areas of brain edema or evidence of midline shift. 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 Left temporal fossa arachnoid cyst is seen without evidence of significant change since prior imaging. The paranasal sinuses and mastoids are clear. The calvarium is intact. Heavy vertebrobasilar atherosc lerosis. IMPRESSION: No acute intracranial abnormality.
--- NOTE | 2020-11-21 19:29 | RAD REPORT ---
EXAM DESCRIPTION: CT - Abdomen Pelvis Wo Contrast - 11/21/2020 7:16 pm CLINICAL HISTORY: Abdominal pain. diarrhea;Nausea / vomiting COMPARISON: Stone Protocol dated 05/30/2020 TECHNIQUE: CT imaging of the abdomen and pelvis was performed without contrast. Solid organ, bowel a nd vascular assessment is limited due to lack of IV and oral contrast. All CT scans are performed using dose optimization technique as appropriate and may include automated exposure control or mA/KV adjustment according to patient size. FINDINGS: Emphysematous lung bases are noted.Small hiatal hernia. 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 No bowel obstruction, free air, free fluid or abscess. Prominent sigmoid diverticulosis is present wi thout diverticulitis. The appendix is not identified as a discrete structure, however, no secondary f indings of appendicitis are identified. Moderate lumbar degenerative changes with chronic bilateral spondylolysis and anterolisthesis at L5-S 1. IMPRESSION: Prominent sigmoid diverticulosis coli without diverticulitis. Moderate lumbosacral spine degenerative change. A limited non-contrast examination was performed as detailed.
[2020-11-21 19:37] LABS: Urine Bacteria <20 /HPF (<20); Urine RBC <5 /HPF (NONE SEEN)
--- NOTE | 2020-11-21 19:37 | RAD REPORT ---
EXAM DESCRIPTION: RAD - Chest Single View - 11/21/2020 7:17 pm CLINICAL HISTORY: diarrhea Chest pain. COMPARISON: Chest Single View dated 09/03/2020; Chest Single View dated 06/13/2020; Chest Single View d ated 05/29/2020; Chest Pa And Lat (2 Views) dated 05/24/2020 FINDINGS: Portable technique limits examination quality. There is moderately severe bilateral pulmonary opacities which may represent pulmonary edema or infec tion/COVID. The heart is mildly enlarged in size. Sternotomy wires are noted.
--- NOTE | 2020-11-21 20:29 | ER ---
Nurse's Notes [facility] Name: Arminda Rodriguez Age: 80 yrs Sex: Female : 1940 Arrival Date: 11/21/2020 Time: 16:37 Bed 16 Private MD: Diagnosis: Weakness;Diarrhea, unspecified;Nausea with vomiting, unspecified;Subsequent non-ST elevation (NSTEMI) myocardial infarction Presentation: 11/21 16:37 Chief complaint: EMS states: N/V/D that began yesterday. ss 16:37 Method Of Arrival: EMS ss 16:39 Coronavirus screen: Client denies travel out of the [place] in the last 14 days. Ebola ss Screen: Patient denies exposure to infectious person. Patient denies travel to an Ebola-affected area in the 21 days before illness onset. Initial Sepsis Screen: Does the patient meet any 2 criteria? No. Patient's initial sepsis screen is negative. Does the patient have a suspected source of infection? No. Patient's initial sepsis screen is negative. Risk Assessment: Do you want to hurt yourself or someone else? Patient reports no desire to harm self or others. Onset of symptoms was November 20, 2020. 16:39 Acuity: GORDO 3 ss 19:39 Note Pt returned from CT scan. Magnesium infusing. Awaiting results. Family at bedside. df1 Triage Assessment: 21:50 General: Appears comfortable. GI: No signs and/or symptoms were reported involving the df1 gastrointestinal system. 21:50 General: Behavior is calm, cooperative. df1 Historical: - Allergies: 16:41 Amaryl; ss 16:41 Amoxicillin; ss 16:41 ANGIOTENSIN RECEPTOR ANTAGONIST; ss 16:41 Augmentin; ss 16:41 Byetta; ss 16:41 Demerol; ss 16:41 Hydrocodone-Acetaminophen; ss 16:41 Januvia; ss 16:41 Lantus; ss 16:41 metformin; ss 16:41 Niaspan; ss 16:41 QUINOLONES; ss 16:41 Claembi-Jzr-Yix Reductase Inhibitors; ss 16:41 Tetanus Immune Globulin; ss 16:41 Zetia; ss - PMHx: 16:41 CAD; CVA; Diabetes - NIDDM; Hyperlipidemia; Hypertension; Myocardial infarction; ss VENTRAL HERNIA; - Immunization history:: Client reports receiving the 2nd dose of the Covid vaccine. - Social history:: Smoking status: Patient denies any tobacco usage or history of. Screenin:42 Abuse screen: Denies threats or abuse. Denies injuries from another. Nutritional ch5 screening: No deficits noted. Tuberculosis screening: No symptoms or risk factors identified. 21:51 Fall Risk No fall in past 12 months (0 pts). IV access (20 points). Ambulatory Aid- df1 None/Bed Rest/Nurse Assist (0 pts). Gait- Impaired (20 pts.). Mental Status- Oriented to own ability (0 pts). Total Benítez Fall Scale indicates Low Risk Score (25-44 pts). Fall prevention measures have been instituted. Side Rails Up X 2 Family Present and informed to notify staff if they need to leave bedside. Assessment: 16:42 Reassessment: No changes from previously documented assessment. Pain: Denies pain. GI: ch5 Reports diarrhea, nausea. 22:15 GI: No signs and/or symptoms were reported involving the gastrointestinal system. df1 Abdomen is obese, bruised on left upper quadrant Last BM was November 21, 2020. Bowel sounds present X 4 quads. Abd is soft and non tender X 4 quads. Vital Signs: 16:39 BP 128 / 67; Pulse 53; Resp 19; Temp 97.4(TE); Pulse Ox 95% on R/A; Weight 119.75 kg; ss Height 5 ft. 3 in. (160.02 cm); Pain 0/10; 18:54 BP 137 / 58; Pulse 65; Resp 20; Pulse Ox 95% on R/A; Pain 0/10; ch5 19:39 BP 151 / 64; Pulse 64; Resp 18; Pulse Ox 96% on R/A; df1 20:21 BP 136 / 64; Pulse 58; Resp 18; Pulse Ox 96% on R/A; df1 22:14 BP 145 / 58; Pulse 59; Resp 18; Pulse Ox 96% on R/A; df1 16:39 Body Mass Index 46.77 (119.75 kg, 160.02 cm) ED Course: 16:37 Patient arrived in ED. ss 16:39 Jake Mahoney PA is PHCP. cp 16:39 Wood Melendez MD is Attending Physician. cp 16:40 Henri Quintanilla, RN is Primary Nurse. 5 16:41 Triage completed. ss 16:41 Arm band placed on right wrist. ss 16:42 Bed in low position. Call light in reach. Side rails up X2. 5 16:42 No provider procedures requiring assistance completed. Inserted saline lock: 20 gauge ch5 in left antecubital area, using aseptic technique. 18:53 XRAY Chest (1 view) Sent. ch5 19:14 Primary Nurse role handed off by Henri Quintanilla RN mw2 19:14 CT Head Brain wo Cont In Process Unspecified. EDMS 19:16 CT Abd/Pelvis - Without Contrast In Process Unspecified. EDMS 19:17 XRAY Chest (1 view) In Process Unspecified. EDMS 19:38 Gladys Moseley is Primary Nurse. df1 20:28 Frederick Gomez MD is Hospitalizing Provider. cp Administered Medications: 17:44 Drug: NS 0.9% 500 ml Route: IV; Rate: calculated rate; Site: left antecubital; 5 19:04 Follow up: IV Status: Completed infusion 5 17:44 Drug: Meclizine 25 mg Route: PO; ch5 19:05 Follow up: Response: No adverse reaction ch5 17:44 Drug: Zofran (Ondansetron) 4 mg Route: IVP; Site: left antecubital; ch5 19:05 Follow up: Response: Nausea is decreased ch5 17:45 Drug: Pepcid (famotidine) 20 mg Route: IVP; Site: left antecubital; ch5 19:04 Follow up: Response: No adverse reaction 5 18:23 Drug: Magnesium Sulfate 2 grams Route: IVPB; Infused Over: 2 hrs; Site: left 5 antecubital; 22:06 Drug: metroNIDAZOLE 500 mg Volume: 100 ml; Route: IVPB; Infused Over: 30 mins; Site: df1 left antecubital; 22:07 Drug: Aspirin Chewable Tablet 324 mg Route: PO; df1 22:07 Follow up: Response: No adverse reaction df1 22:07 Drug: Rocephin (cefTRIAXone) 1 grams Route: IV; Rate: calculated rate; Site: left df1 antecubital; 22:07 Follow up: Response: No adverse reaction df1 22:14 Drug: Lovenox (enoxaparin) 1 mg/kg Route: Sub-Q; Site: abdomen; df1 Outcome: 20:29 Decision to Hospitalize by Provider. cp 11/22 10:42 Discharged to home via wheelchair. aj2 Condition: stable Discharge instructions given to patient, Daughter Instructed on discharge instructions, follow up and referral plans. Demonstrated understanding of instructions, follow-up care, Prescriptions given X 11:15 Patient left the ED. aj2 Signatures: Dispatcher [employer] EDMS Yanna Marina RN RN ss Jake Mahoney PA PA cp Anne Perez 2 Chaim Barney aj2 Henri Quintanilla RN RN ch5 Gladys Moseley df1 Corrections: (The following items were deleted from the chart) 11/21 18:55 18:53 BP 127 / 53; Pulse 100bpm; Resp 20bpm; Pulse Ox 100%; Pain 0/10; ch5 ch5
--- NOTE | 2020-11-21 20:30 | EDPHYS ---
Physician Documentation [facility] Name: Arminda Rodriguez Age: 80 yrs Sex: Female : 1940 Arrival Date: 11/21/2020 Time: 16:37 Bed 16 Private MD: ED Physician Wood Melendez HPI: 11/21 16:50 This 80 yrs old Female presents to ER via EMS with complaints of cp Nausea/Vomiting/Diarrhea. 16:50 The patient presents to the emergency department with nausea, that is moderate, cp vomiting, 1 times today, described as bilious, diarrhea, 4 times today. 16:50 Onset: The symptoms/episode began/occurred yesterday. cp 16:50 Possible causes: unknown. Associated signs and symptoms: Pertinent positives: abdominal cp pain, general weakness, Pertinent negatives: constipation, fever, GI bleeding. Severity of symptoms: in the emergency department the symptoms are unchanged despite home interventions. 16:50 Daughter reports patient with low blood pressure while at home today. cp Historical: - Allergies: 16:41 Amaryl; ss 16:41 Amoxicillin; ss 16:41 ANGIOTENSIN RECEPTOR ANTAGONIST; ss 16:41 Augmentin; ss 16:41 Byetta; ss 16:41 Demerol; ss 16:41 Hydrocodone-Acetaminophen; ss 16:41 Januvia; ss 16:41 Lantus; ss 16:41 metformin; ss 16:41 Niaspan; ss 16:41 QUINOLONES; ss 16:41 Nkpsmff-Bto-Vrh Reductase Inhibitors; ss 16:41 Tetanus Immune Globulin; ss 16:41 Zetia; ss - PMHx: 16:41 CAD; CVA; Diabetes - NIDDM; Hyperlipidemia; Hypertension; Myocardial infarction; ss VENTRAL HERNIA; - Immunization history:: Client reports receiving the 2nd dose of the Covid vaccine. - Social history:: Smoking status: Patient denies any tobacco usage or history of. ROS: 17:00 Constitutional: Negative for body aches, chills, fever. cp 17:00 Eyes: Negative for injury, pain, redness, and discharge. cp 17:00 ENT: Negative for ear pain, sore throat, difficulty swallowing, difficulty handling secretions. 17:00 Cardiovascular: Negative for chest pain, palpitations. 17:00 Respiratory: Negative for cough, shortness of breath, wheezing. 17:00 Abdomen/GI: Positive for abdominal pain, nausea, vomiting, and diarrhea, Negative for constipation, hematemesis, black/tarry stool, rectal bleeding. 17:00 Neuro: Positive for weakness, Negative for altered mental status, dizziness, headache, syncope. 17:00 All other systems are negative. Exam: 17:05 Constitutional: The patient appears in no acute distress, alert, awake, cp non-diaphoretic, non-toxic, well developed, well nourished, obese. 17:05 Head/Face: Normocephalic, atraumatic. cp 17:05 Eyes: Periorbital structures: appear normal, Conjunctiva: normal, no exudate, no injection, Sclera: no appreciated abnormality, Lids and lashes: appear normal, bilaterally. 17:05 ENT: External ear(s): are unremarkable, Nose: is normal, Mouth: Lips: dry, Oral mucosa: moist, Posterior pharynx: Airway: no evidence of obstruction, patent. 17:05 Neck: ROM/movement: is normal, is supple, without pain, no range of motions limitations, no meningismus. 17:05 Chest/axilla: Inspection: normal, Palpation: is normal, no crepitus, no tenderness. 17:05 Cardiovascular: Rate: bradycardic, Rhythm: regular, Edema: is not appreciated, JVD: is not appreciated. 17:05 Respiratory: the patient does not display signs of respiratory distress, Respirations: normal, no use of accessory muscles, no retractions, labored breathing, is not present, Breath sounds: are clear throughout, no decreased breath sounds, no stridor, no wheezing. 17:05 Abdomen/GI: Inspection: obese Bowel sounds: active, all quadrants, Palpation: soft, in all quadrants, mild abdominal tenderness, in the right lower quadrant, rebound tenderness, is not appreciated, involuntary guarding, is not appreciated. 17:05 Back: pain, is absent, ROM is normal. 17:05 Skin: cellulitis, is not appreciated, no rash present. 17:05 Neuro: Orientation: to person, place \T\ time. Mentation: is normal, Motor: moves all fours, strength is normal. 17:15 ECG was reviewed by the Attending Physician. Vital Signs: 16:39 BP 128 / 67; Pulse 53; Resp 19; Temp 97.4(TE); Pulse Ox 95% on R/A; Weight 119.75 kg; ss Height 5 ft. 3 in. (160.02 cm); Pain 0/10; 18:54 BP 137 / 58; Pulse 65; Resp 20; Pulse Ox 95% on R/A; Pain 0/10; ch5 19:39 BP 151 / 64; Pulse 64; Resp 18; Pulse Ox 96% on R/A; df1 20:21 BP 136 / 64; Pulse 58; Resp 18; Pulse Ox 96% on R/A; df1 22:14 BP 145 / 58; Pulse 59; Resp 18; Pulse Ox 96% on R/A; df1 16:39 Body Mass Index 46.77 (119.75 kg, 160.02 cm) ss MDM: 16:46 Patient medically screened. cp 20:35 Data reviewed: vital signs, nurses notes, lab test result(s), EKG, radiologic studies, cp CT scan, plain films. 20:35 Test interpretation: by ED physician or midlevel provider: ECG, plain radiologic cp studies. Physician consultation: Frederick Gomez MD was called at 20:25, was contacted at 20:25, regarding admission, to the telemetry unit. patient's condition, wants recollection of urine by catheter prior to administration of antibiotics and will admit patient. 11/21 16:46 Order name: Lipase; Complete Time: 19:22 11/21 16:56 Order name: Urine Microscopic Only; Complete Time: 19:47 11/21 19:47 Interpretation: Normal except: UWBC 20-50. 11/21 17:06 Order name: Basic Metabolic Panel; Complete Time: 17:53 EDMS 11/21 17:53 Interpretation: Normal except: GLUC 202; BUN 40; CRE 1.47; GFR 34. 11/21 17:06 Order name: Liver (Hepatic) Function; Complete Time: 17:53 EDMS 11/21 18:02 Interpretation: Normal except: ALB 3.1; GLOB 4.3; A/G 0.7. 11/21 17:06 Order name: Troponin (Emerg Dept Use Only); Complete Time: 17:53 EDMS 11/21 17:53 Interpretation: Abnormal: TROPED 0.13. 11/21 17:06 Order name: NT PRO-BNP; Complete Time: 17:53 EDMS 11/21 17:06 Order name: Magnesium; Complete Time: 17:53 [facility] 11/21 18:02 Interpretation: Abnormal: MG 1.5. 11/21 17:06 Order name: CBC with Automated Diff; Complete Time: 18:38 [facility] 11/21 18:38 Interpretation: Normal except: RBC 3.74; MCV 107.0; MCH 35.9; RDW 16.9; MN% 22.1. 11/21 17:06 Order name: Protime (+INR); Complete Time: 19:47 [facility] 11/21 18:16 Order name: CBC Smear Scan; Complete Time: 18:38 [facility] 11/21 19:03 Order name: Urine Dipstick-Ancillary; Complete Time: 19:22 [facility] 11/21 19:38 Order name: Urine Culture [facility] 11/21 20:08 Order name: SARS-COV-2 RT PCR; Complete Time: 20:21 [facility] 11/21 20:31 Order name: Procalcitonin; Complete Time: 22:22 11/21 20:31 Order name: Lactate; Complete Time: 22:22 11/21 20:31 Order name: Blood Culture Adult (2) 11/21 22:12 Order name: Basic Metabolic Panel [facility] 11/21 22:12 Order name: Basic Metabolic Panel [facility] 11/21 22:12 Order name: CBC with Automated Diff [facility] 11/21 22:12 Order name: CBC with Automated Diff [facility] 11/21 22:12 Order name: Troponin I [facility] 11/21 16:46 Order name: XRAY Chest (1 view); Complete Time: 19:47 11/21 16:46 Order name: EKG; Complete Time: 18:20 11/21 16:46 Order name: Cardiac monitoring; Complete Time: 18:53 11/21 16:46 Order name: EKG - Nurse/Tech; Complete Time: 18:53 11/21 16:46 Order name: IV Saline Lock; Complete Time: 16:47 11/21 16:46 Order name: Labs collected and sent; Complete Time: 16:47 11/21 16:46 Order name: O2 Per Protocol; Complete Time: 16:47 11/21 16:46 Order name: O2 Sat Monitoring; Complete Time: 16:47 11/21 16:56 Order name: Urine Dipstick-Ancillary (obtain specimen); Complete Time: 19:03 cp 11/21 17:22 Order name: Labs - recollect needed: recollect light blue top; Complete Time: 18:53 bd 11/21 17:55 Order name: CT Head Brain wo Cont; Complete Time: 19:47 cp 11/21 17:55 Order name: CT Abd/Pelvis - Without Contrast; Complete Time: 19:47 cp 11/21 20:25 Order name: Cath; Complete Time: 21:08 cp 11/21 20:25 Order name: Urine Dipstick-Ancillary (obtain specimen); Complete Time: 21:08 cp 11/21 22:10 Order name: CONS Physician Consult EDMS 11/21 22:12 Order name: EKG Electrocardiogram EDMS 11/21 22:12 Order name: EKG Electrocardiogram EDMS 11/21 22:12 Order name: EKG Electrocardiogram EDMS 11/21 22:12 Order name: EKG Electrocardiogram EDMS 11/21 22:12 Order name: Troponin I EDMS 11/21 22:12 Order name: Troponin I EDMS EC:15 Rate is 53 beats/min. Rhythm is regular. [place] interval is normal. QRS interval is cp prolonged at 104 msec. QT interval is normal. T waves are Inverted in lead aVR. Interpreted by me. Reviewed by me. Administered Medications: 17:44 Drug: NS 0.9% 500 ml Route: IV; Rate: calculated rate; Site: left antecubital; ch5 19:04 Follow up: IV Status: Completed infusion ch5 17:44 Drug: Meclizine 25 mg Route: PO; ch5 19:05 Follow up: Response: No adverse reaction ch5 17:44 Drug: Zofran (Ondansetron) 4 mg Route: IVP; Site: left antecubital; ch5 19:05 Follow up: Response: Nausea is decreased ch5 17:45 Drug: Pepcid (famotidine) 20 mg Route: IVP; Site: left antecubital; ch5 19:04 Follow up: Response: No adverse reaction ch5 18:23 Drug: Magnesium Sulfate 2 grams Route: IVPB; Infused Over: 2 hrs; Site: left ch5 antecubital; 22:06 Drug: metroNIDAZOLE 500 mg Volume: 100 ml; Route: IVPB; Infused Over: 30 mins; Site: df1 left antecubital; 22:07 Drug: Aspirin Chewable Tablet 324 mg Route: PO; df1 22:07 Follow up: Response: No adverse reaction df1 22:07 Drug: Rocephin (cefTRIAXone) 1 grams Route: IV; Rate: calculated rate; Site: left df1 antecubital; 22:07 Follow up: Response: No adverse reaction df1 22:14 Drug: Lovenox (enoxaparin) 1 mg/kg Route: Sub-Q; Site: abdomen; df1 Disposition Summary: 11/21/20 20:29 Hospitalization Ordered Hospitalization Status: Observation cp Provider: Frederick Gomez cp Condition: Stable cp Problem: new cp Symptoms: have improved cp Bed/Room Type: Standard cp Location: [facility] ER HOLD(11/21/20 22:23) tl1 Room Assignment: ERHOLD-(11/21/20 22:23) tl1 Diagnosis - Weakness cp - Diarrhea, unspecified cp - Nausea with vomiting, unspecified cp - Subsequent non-ST elevation (NSTEMI) myocardial infarction cp Forms: - Medication Reconciliation Form cp - SBAR form cp Addendum: 11/26/2020 08:28 Co-signature as Attending Physician, Wood Melendez MD I agree with the assessment and r n plan of care. Attestation: The patient's history, exam findings, diagnostics, and a summary of any interventions or procedures was reviewed in detail with Jake ARMENDARIZ. Signatures: Dispatcher [employer] EDMS Laisha Medina Roman, MD MD rn Smirch, Shelby, RN RN Aylin Knutson RN RN tl1 Jake Mahoney PA PA cp Henri Quintanilla RN RN 5 Gladys Moseley df1 Corrections: (The following items were deleted from the chart) 11/21 18:25 18:20 BASIC METABOLIC PANEL+C.LAB.BRZ ordered. EDMS EDMS 18:25 18:20 CBC+H.LAB.BRZ ordered. EDMS EDMS 18:25 18:20 HEPATIC FUNCTION+C.LAB.BRZ ordered. EDMS EDMS 18:25 18:20 MAGNESIUM+C.LAB.BRZ ordered. EDMS EDMS 18:25 18:20 PROBNP+C.LAB.BRZ ordered. EDMS EDMS 18:25 18:20 PROTIME (+INR)+COAG.LAB.BRZ ordered. EDMS EDMS 18:25 18:20 TROPONIN (EMERG DEPT USE ONLY)+C.LAB.BRZ ordered. EDMS EDMS 19:08 18:22 CORONAVIRUS+MR.LAB.BRZ ordered. EDMS EDMS 20:52 20:44 UA MICROSCOPIC+U.LAB.BRZ ordered. EDMS EDMS 22:23 20:29 Telemetry/MedSurg (observation) cp tl1 22:23 20:29 cp tl1
[2020-11-21] MEDS ORDERED: CEFTRIAXONE/SWI 1gm 1 GM/10 ML SYR ONE (21:49)
[2020-11-21] MEDS ORDERED: METRONIDAZOLE 500mg IVPB 500 MG/100 ML BAG IV ONE (21:49)
[2020-11-21] MEDS ORDERED: ASPIRIN 81 MG CHEWABLE TABLET ONE (21:50)
[2020-11-21] MEDS ORDERED: ONDANSETRON 4 MG/2 ML VIAL IV PRN (22:09)
[2020-11-21] MEDS ORDERED: ACETAMINOPHEN 500 MG TAB PO PRN (22:09)
[2020-11-21] MEDS ORDERED: ENOXAPARIN 100 MG/ML SYR SQ ONE (22:33)
[2020-11-22 01:26] VITALS: BMI 47.9
[2020-11-22] MEDS ORDERED: METRONIDAZOLE 500mg IVPB 500 MG/100 ML BAG IV SCH ×2 (04:00→09:00)
[2020-11-22] MEDS ORDERED: METRONIDAZOLE 500mg IVPB 500 MG/100 ML BAG IV ONE (04:55)
[2020-11-22 05:46] LABS: Absolute Lymphocytes (CBC) 1.9 K/uL (0.7-4.9); Basophils % 0.8 % (0-1.3); Hematocrit 37.1 % (36.0-45.0); Lymphocytes % 29.1 % (15.3-44.8); MPV 10.6 fL (7.6-11.3); RBC Red Blood Cell Count 3.44 M/uL (3.86-4.86)
[2020-11-22 05:54] LABS: Potassium 3.8 mmol/L (3.5-5.1)
[2020-11-22 08:15] VITALS: BP 128/53; TEMP 97.7
[2020-11-22] MEDS ORDERED: CEFTRIAXONE/SWI 1gm 1 GM/10 ML SYR IV SCH ×2 (08:30→09:00)
[2020-11-22] MEDS ORDERED: ASPIRIN EC 81 MG TAB PO SCH (09:00)
[2020-11-22] MEDS ORDERED: ENOXAPARIN 100 MG/ML SYR SQ SCH (09:00)
[2020-11-22] MEDS ORDERED: ASPIRIN EC 81 MG TAB PO ONE (09:12)
[2020-11-22 10:28] VITALS: O2SAT 89
--- NOTE | 2020-11-22 13:11 | P.SSS ---
Patient History Date of Service: 11/22/20 Reason for admission: LOW BP, VOMITING AND DIARRHEA History of Present Illness: AMBIKA IS NON COMPLIANT DIABETIC AND CHF PATIENT WHO COMES WITH VOMITING, DIARRHEA FOR A DAY, FAMILY FOUND BP TO BE DOWN TO 90/40. SHE WAS BROUGHT INTO HOSPITAL. ER PA DID CT SCAN, TROPONIN AND PUT HER ON LOVENOX HIGH DOSE BID AND ANTIBIOTICS. SHE DOES NOT NEED EITHER OF THEM. HE BP IS HIGHER, SHE IS VERY COMFORTABLE WITH NO OTHER SYMPTOMS INCLUDING CHEST PAIN OR DYSPNEA. ER COLLECTED URINE SAMPLE FROM BED COUGHLIN. I ASKED THE PA TO IGNORE IT AND DO ST CATH IF NEED. IT WAS NOT DONE. SHE HAS NO UTI SS. Allergies amoxicillin Allergy (Verified 05/30/20 03:48) Anaphylaxis clavulanic acid [From Augmentin] Allergy (Verified 05/30/20 03:48) Hives/Rash exenatide [From Byetta] Allergy (Verified 05/30/20 03:48) Itching/Hives/Rash ezetimibe [From Zetia] Allergy (Verified 07/27/18 13:00) Itching/Hives/Rash glimepiride [From Amaryl] Allergy (Verified 05/30/20 03:48) Itching/Hives/Rash hydrocodone Allergy (Verified 05/30/20 03:48) Nausea/Vomiting insulin glargine [From Lantus U-100 Insulin] Allergy (Verified 05/30/20 03:48) myalgia meperidine [From Demerol] Allergy (Verified 05/30/20 03:48) Itching/Hives/Rash metformin Allergy (Verified 05/30/20 03:48) unknown niacin [From Niaspan Extended-Release] Allergy (Verified 05/30/20 03:48) Itching/Hives/Rash Quinolones Allergy (Verified 05/30/20 03:48) Itching/Hives/Rash sitagliptin [From Januvia] Allergy (Verified 05/30/20 03:48) Itching/Hives/Rash Eubcbvm-Qko-Etn Reductase Inhibitor Allergy (Verified 05/30/20 03:48) Nausea/Vomiting tetanus and diphtheria toxoids Allergy (Verified 05/30/20 03:48) Itching/Hives/Rash spironolactone Adverse Reaction (Verified 05/30/20 03:48) high K, Dehydration angiotensin Allergy (Uncoded 07/27/18 13:00) Nausea/Vomiting Home Medications: Aspirin 81 mg PO DAILY 05/08/19 Insulin Detemir [Levemir Flextouch] 5 unit SQ DAILY AT SUPPER 05/08/19 Insulin Detemir [Levemir Flextouch] 25 unit SQ DAILY WITH BREAKFAST 05/08/19 Magnesium Oxide [Mag 0X*] 400 mg PO DAILY 05/08/19 Pregabalin 75 mg PO BID 05/08/19 Ropinirole HCl [Requip*] 0.5 mg PO DAILY 05/08/19 Atorvastatin Calcium [Lipitor] 80 mg PO DAILY 05/29/20 Hydroxyurea [Hydrea*] 500 mg PO BID 05/29/20 Insulin Aspart [Novolog Flexpen] 10 unit SQ SEECOM 05/29/20 Pantoprazole [Protonix Tab*] 40 mg PO BID 05/29/20 hydrOXYzine HCL [Atarax*] 25 mg PO Q8H PRN 05/29/20 Apixaban [Eliquis] 5 mg PO BID 09/04/20 - Past Medical/Surgical History Has patient received pneumonia vaccine in the past: Yes Diabetic: Yes -: HTN -: DM 2 -: stroke 2014 -: Thrombocytopenia -: Hernia -: SOB -: Stroke x 3 -: CAD -: carotid stenosis right 90% -: vertiginous syndrome -: hyperglobulinemia, hypergammaglobulinemia -: dyslipidemia -: Hysterectomy -: Bladder suspension -: Hernia repair -: Spleenectomy -: Cholesystectomy -: Tonsillectomy -: Colonoscopy and Polyps removal -: endarterectomy, carotid 07/2018 - Family History Father -: Heart disease - Social History Smoking Status: Never smoker Alcohol use: No CD- Drugs: No Caffeine use: No Review of Systems 10-point ROS is otherwise unremarkable General: Weakness, Malaise Physical Examination - Vital Signs Temperature: 97.7 F Blood Pressure: 128/53 Pulse: 53 Respirations: 18 Pulse Ox (%): 94 - Physical Exam General: Alert, In no apparent distress, Obese HEENT: Atraumatic, PERRLA, Mucous membr. moist/pink, EOMI, Sclerae nonicteric Neck: Supple, 2+ carotid pulse no bruit, No LAD, Without JVD or thyroid abnormality Respiratory: Clear to auscultation bilaterally, Normal air movement Cardiovascular: Regular rate/rhythm, Normal S1 S2 Gastrointestinal: Normal bowel sounds, No tenderness Musculoskeletal: No tenderness Integumentary: No rashes Neurological: Normal gait, Normal speech, Normal strength at 5/5 x4 extr, Normal tone, Normal affect Lymphatics: No axilla or inguinal lymphadenopathy - Studies Laboratory Data (last 24 hrs) 11/21/20 18:33: PT 14.5 H, INR 1.26 11/21/20 16:48: Sodium Cancelled, Potassium Cancelled, BUN Cancelled, Creatinine Cancelled, Glucose Cancelled, Magnesium Cancelled, Total Bilirubin Cancelled, AST Cancelled, ALT Cancelled, Alkaline Phosphatase Cancelled, Lipase 199 11/21/20 16:48: WBC 5.90, Hgb 13.4, Hct 40.0, Plt Count 255 11/21/20 16:48: Sodium 138, Potassium 3.9, BUN 40 H, Creatinine 1.47 H, Glucose 202 H, Magnesium 1.5 L, Total Bilirubin 0.7, AST 36, ALT 29, Alkaline Phosphatase 102 11/21/20 16:46: PT Cancelled, INR Cancelled 11/21/20 16:46: WBC Cancelled, Hgb Cancelled, Hct Cancelled, Plt Count Cancelled Microbiology Data (last 24 hrs): 11/21/20 21:03 Blood - Blood Anaerobic Blood Culture - Final 11/21/20 20:57 Blood - Blood Anaerobic Blood Culture - Final - Diagnosis (Problem(s)) (1) Viral gastroenteritis Current Visit: Yes Status: Acute Plan: THIS HAS RESOLVED. WE WILL WATCH. I TALKED TO NATHALIE THE DAUGHTER TO DISCUSS. (2) Diabetes Current Visit: Yes Status: Chronic Qualifiers: Diabetes mellitus type: type 2 Diabetes mellitus complication status: with neurologic complications (3) Hypotension Current Visit: Yes Status: Acute Plan: WITH GASTROENTERITIS SHE HAD HYPOTENSION THAT HAS NOW RESOLVED. WILL WATCH. (4) Pulmonary edema Current Visit: Yes Status: Acute Plan: SHE HAS NO SYMPTOMS OF THIS. THIS IS X RAY FINDING. IT CAN BE VIRAL INFECTION OR PULMONARY EDEMA. I RAISED LASIX BID FOR NOW AT HOME. I CALLED THE DAUGHTER. SHE TOLD ME THAT MOTHER EATS ALL KINDS OF WRONG FOODS INCLUDING SALT AND SUGAR. I TOLD HER THAT IT IS DIFFICULT TO BALANCE MEDS WHEN FOOD INTAKE IS POOR. I WILL FU IN ONE WEEK. - Disposition Disposition: ROUTINE DISCHARGE Condition: FAIR
[2020-11-22] MEDS ORDERED: Enoxaparin 120 MG/0.8 ML SYR SQ SCH (21:00)
== END 2020-11-22 11:15 | disposition home or self-care (01) ==
LOC: ER 16:30 → ERHOLD 22:07
PROVIDERS: ADMIT Internal Medicine; ATTEND Internal Medicine
DX: A08.4 Viral intestinal infection, unspecified (principal); I95.9 Hypotension, unspecified; E11.49 Type 2 diabetes mellitus with other diabetic neurological complication; J81.0 Acute pulmonary edema; I10 Essential (primary) hypertension; D69.6 Thrombocytopenia, unspecified; K44.9 Diaphragmatic hernia without obstruction or gangrene; I25.10 Atherosclerotic heart disease of native coronary artery without angina pectoris; I65.21 Occlusion and stenosis of right carotid artery; I50.9 Heart failure, unspecified; H81.90 Unspecified disorder of vestibular function, unspecified ear; E78.5 Hyperlipidemia, unspecified; D89.2 Hypergammaglobulinemia, unspecified; R77.1 Abnormality of globulin; I25.2 Old myocardial infarction; Z91.19 Patient's noncompliance with other medical treatment and regimen; Z20.822 Contact with and (suspected) exposure to COVID-19; Z79.4 Long term (current) use of insulin; Z79.01 Long term (current) use of anticoagulants; Z88.0 Allergy status to penicillin; Z88.6 Allergy status to analgesic agent; Z88.7 Allergy status to serum and vaccine; Z88.8 Allergy status to other drugs, medicaments and biological substances; Z86.73 Personal history of transient ischemic attack (TIA), and cerebral infarction without residual deficits; Z86.010 Personal history of colon polyps; Z90.81 Acquired absence of spleen; Z90.710 Acquired absence of both cervix and uterus; Z90.49 Acquired absence of other specified parts of digestive tract; Z82.49 Family history of ischemic heart disease and other diseases of the circulatory system
CPT/HCPCS: 96361; 93005 ×2; 87040 ×2; 87088; 85025 ×2; 87086; 80048 ×2; 36415; 83735; 85610; 80076; 83605; 87077; 87186; 84484 ×3; 83690; 84145; 83880; 70450; 74176; 71045; 96375; 96372; 96374; 99284; U0003; J1650; J3475; J0696; J7040; J2405; G0378 ×3; 81003; 81015

== ENCOUNTER 2020-12-25 13:20 | Inpatient (IN) | payer OTHER ==
[2020-12-25] MEDS ORDERED: NA CHLORIDE 0.9% 1,000 ML ONE (14:06)
[2020-12-25] MEDS ORDERED: ACETAMINOPHEN 500 MG TAB ONE (15:14)
--- NOTE | 2020-12-25 15:15 | RAD REPORT ---
EXAM DESCRIPTION: RAD - Chest Single View - 12/25/2020 2:16 pm CLINICAL HISTORY: CONGESTION COMPARISON: Chest Pa And Lat (2 Views) dated 12/17/2020; Chest Single View dated 11/21/2020; Chest Si ngle View dated 09/03/2020; Chest Single View dated 06/13/2020 FINDINGS: Lines: None. Lungs: Increased pulmonary vascular congestion. Pleural: No significant pleural effusions or pneumothorax. Cardiac: Mild cardiomegaly. Bones: No acute fractures. Sternotomy. Other: IMPRESSION: Increased vascular congestion but otherwise no focal airspace process identified.
[2020-12-25 16:02] LABS: Absolute Lymphocytes (CBC) 0.5 K/uL (0.7-4.9); Basophils % 0.2 % (0-1.3); Hematocrit 34.4 % (36.0-45.0); Lymphocytes % 3.5 % (15.3-44.8); MPV 10.1 fL (7.6-11.3); RBC Red Blood Cell Count 3.16 M/uL (3.86-4.86)
[2020-12-25 16:06] LABS: Blood Morphology Comment NOTED (NOT SEEN); Macrocytosis 1+; Platelet Estimate ADEQ; White Blood Cell Scan OK (OK)
[2020-12-25 16:12] LABS: Protime INR 1.69
[2020-12-25 16:37] LABS: Albumin 2.4 g/dL (3.4-5.0); Bilirubin Direct 0.2 mg/dL (0-0.2); Bilirubin Total 0.7 mg/dL (0.2-1.0); CKMB Creatine Kinase MB 1.4 ng/mL (1.0-3.6); Potassium 4.2 mmol/L (3.5-5.1); Protein, Total 6.5 g/dL (6.4-8.2)
[2020-12-25 16:39] LABS: Troponin (Emerg Dept Use Only) 3.75 ng/mL (0.0-0.045)
[2020-12-25] MEDS ORDERED: CLINDAMYCIN 600MG/D5W 600 MG/50 ML BAG IV ONE (16:42)
--- NOTE | 2020-12-25 17:14 | EDPHYS ---
Physician Documentation [facility] Name: Arminda Rodriguez Age: 80 yrs Sex: Female : 1940 Arrival Date: 12/25/2020 Time: 13:23 Bed 17 Private MD: ED Physician Benson Byrnes HPI: 12/25 15:09 This 80 yrs old Female presents to ER via EMS with complaints of fever, left ma2 leg redness. 15:09 The patient presents to the emergency department with nausea. Onset: The ma2 symptoms/episode began/occurred gradually, 1 day(s) ago. Associated signs and symptoms: Pertinent positives: nausea, Pertinent negatives: constipation, dysuria, GI bleeding, hematuria, vomiting. Severity of symptoms: At their worst the symptoms were moderate in the emergency department the symptoms are unchanged. The patient has experienced similar episodes in the past. Historical: - Allergies: 13:24 Hydrocodone-Acetaminophen; ll1 13:24 Januvia; ll1 13:24 Lantus; ll1 13:24 metformin; ll1 13:24 Byetta; ll1 13:24 Demerol; ll1 13:24 Niaspan; ll1 13:24 QUINOLONES; ll1 13:24 Augmentin; ll1 13:24 ANGIOTENSIN RECEPTOR ANTAGONIST; ll1 13:24 Nrsmrby-Saz-Icr Reductase Inhibitors; ll1 13:24 Tetanus Immune Globulin; ll1 13:24 Zetia; ll1 13:24 Amoxicillin; ll1 13:24 Amaryl; ll1 - PMHx: 13:24 CAD; CVA; Diabetes - NIDDM; Hyperlipidemia; Hypertension; Myocardial infarction; ll1 VENTRAL HERNIA; - Immunization history:: Adult Immunizations up to date. - Social history:: Smoking status: Patient denies any tobacco usage or history of. Patient/guardian denies using alcohol, street drugs, The patient lives with family. - Family history:: not pertinent. ROS: 15:09 Constitutional: Negative for fever, chills, and weight loss. ma2 15:09 All other systems are negative. Exam: 15:09 Constitutional: This is a well developed, well nourished patient who is awake, alert, ma2 and in no acute distress. Head/Face: Normocephalic, atraumatic. Eyes: Pupils equal round and reactive to light, extra-ocular motions intact. Lids and lashes normal. Conjunctiva and sclera are non-icteric and not injected. Cornea within normal limits. Periorbital areas with no swelling, redness, or edema. ENT: Nares patent. No nasal discharge, no septal abnormalities noted. Tympanic membranes are normal and external auditory canals are clear. Oropharynx with no redness, swelling, or masses, exudates, or evidence of obstruction, uvula midline. Mucous membranes moist. Neck: Trachea midline, no thyromegaly or masses palpated, and no cervical lymphadenopathy. Supple, full range of motion without nuchal rigidity, or vertebral point tenderness. No Meningismus. Chest/axilla: Normal chest wall appearance and motion. Nontender with no deformity. No lesions are appreciated. Cardiovascular: Regular rate and rhythm with a normal S1 and S2. No gallops, murmurs, or rubs. Normal PMI, no JVD. No pulse deficits. Respiratory: Lungs have equal breath sounds bilaterally, clear to auscultation and percussion. No rales, rhonchi or wheezes noted. No increased work of breathing, no retractions or nasal flaring. Abdomen/GI: Soft, non-tender, with normal bowel sounds. No distension or tympany. No guarding or rebound. No evidence of tenderness throughout. Skin: Warm, dry with normal turgor. Normal color with no rashes, no lesions, and no evidence of cellulitis. MS/ Extremity: areaof redness and warmth over left foot on dorsal aspect measures 2x4 cm, warm and tenderness, no swelling or fluid, otherwise Pulses equal, no cyanosis. Neurovascular intact. Full, normal range of motion. Neuro: Awake and alert, GCS 15, oriented to person, place, time, and situation. Cranial nerves II-XII grossly intact. Motor strength 5/5 in all extremities. Sensory grossly intact. Cerebellar exam normal. Normal gait. Vital Signs: 13:31 BP 144 / 64; Pulse 78; Resp 18; Temp 100.5(T); Pulse Ox 87% on R/A; Weight 117.93 kg; ch5 Height 5 ft. 3 in. (160.02 cm); Pain 0/10; 16:20 BP 113 / 62; Pulse 72; Resp 92; Pulse Ox 93% 2 lpm ; ch5 13:31 Body Mass Index 46.06 (117.93 kg, 160.02 cm) [facility] MDM: 13:24 Patient medically screened. [facility] 15:09 Differential diagnosis: gastritis, viral gastroenteritis, gastroenteritis, left foot tx2 cellulitis. 17:08 Data reviewed: vital signs, nurses notes. Counseling: I had a detailed discussion with [facility] the patient and/or guardian regarding: the historical points, exam findings, and any diagnostic results supporting the discharge/admit diagnosis, the presence of at least one elevated blood pressure reading (>120/80) during this emergency department visit, the need for further work-up and treatment in the hospital. Response to treatment: the patient's symptoms have markedly improved after treatment. ED course: discussed with dr. gomez, patient has SIRS and cellulitis and elevated troponin with out angina or angina equevelant syx, ekg normal , had elevated trop in the past. patietn has no symptoms now. discussed with dr. gomez. 12/25 13:26 Order name: Amylase, Serum [facility] 12/25 13:26 Order name: Basic Metabolic Panel [facility] 12/25 13:26 Order name: Blood Culture Adult (2) [facility] 12/25 13:26 Order name: C-Reactive Protein [facility] 12/25 13:26 Order name: CBC with Diff; Complete Time: 16:35 [facility] 12/25 13:26 Order name: CPK; Complete Time: 16:42 [facility] 12/25 13:26 Order name: Ckmb; Complete Time: 16:42 [facility] 12/25 13:26 Order name: LFT's; Complete Time: 16:42 [facility] 12/25 13:26 Order name: Lactate; Complete Time: 16:35 [facility] 12/25 13:26 Order name: Lipase; Complete Time: 16:42 [facility] 12/25 13:26 Order name: Procalcitonin [facility] 12/25 13:26 Order name: Protime (+inr); Complete Time: 16:35 [facility] 12/25 13:26 Order name: Ptt, Activated; Complete Time: 16:35 [facility] 12/25 13:26 Order name: Troponin (emerg Dept Use Only); Complete Time: 16:42 [facility] 12/25 13:26 Order name: Urine Microscopic Only [facility] 12/25 13:27 Order name: Amylase; Complete Time: 16:42 EDMS 12/25 13:27 Order name: Basic Metabolic Panel; Complete Time: 16:42 EDMS 12/25 13:27 Order name: Blood Culture EDMS 12/25 13:27 Order name: C-Reactive Protein; Complete Time: 16:42 EDMS 12/25 16:06 Order name: CBC Smear Scan; Complete Time: 16:35 EDMS 12/25 17:17 Order name: Basic Metabolic Panel EDMS 12/25 17:17 Order name: Basic Metabolic Panel EDMS 12/25 17:17 Order name: Troponin I EDMS 12/25 17:17 Order name: CBC with Automated Diff EDMS 12/25 17:17 Order name: CBC with Automated Diff EDMS 12/25 19:26 Order name: COVID-19 (Coronavirus) Document "Date of Onset" if Symptomatic tt3 12/25 19:36 Order name: Glucose, Ancillary Testing EDMS 12/25 21:00 Order name: SARS-COV-2 RT PCR EDMS 12/25 21:15 Order name: Glucose, Ancillary Testing EDMS 12/25 13:26 Order name: Chest Single View XRAY; Complete Time: 15:48 ma2 12/25 13:26 Order name: Cardiac monitoring; Complete Time: 13:56 ma2 12/25 13:26 Order name: EKG - Nurse/Tech; Complete Time: 14:27 ma2 12/25 13:26 Order name: IV Saline Lock - Large Bore; Complete Time: 13:56 ma2 12/25 13:26 Order name: Labs collected and sent; Complete Time: 13:56 ma2 12/25 13:26 Order name: O2 Per Protocol; Complete Time: 13:56 ma2 12/25 13:26 Order name: O2 Sat Monitoring; Complete Time: 13:56 ma2 12/25 14:06 Order name: Labs - recollect needed: recollect flores,blue,green, light green tubes; bd Complete Time: 16:20 12/25 17:17 Order name: EKG Electrocardiogram EDMS 12/25 17:17 Order name: EKG Electrocardiogram; Complete Time: 19:58 EDMS 12/25 17:17 Order name: EKG Electrocardiogram; Complete Time: 19:58 EDMS 12/25 17:17 Order name: EKG Electrocardiogram; Complete Time: 19:58 EDMS 12/25 17:17 Order name: EKG Electrocardiogram; Complete Time: 19:58 EDMS 12/25 20:27 Order name: 60g Consistent Carbohydrate (ADA 1800/1999); Complete Time: 22:13 EDMS Administered Medications: 13:53 Drug: NS 0.9% 1000 ml Route: IV; Rate: 1 bolus; Site: left antecubital; ch5 18:32 Follow up: IV Status: Completed infusion ch5 16:36 Drug: Clindamycin 600 mg Route: IVPB; Infused Over: 30 mins; Site: left antecubital; ch5 18:31 Follow up: IV Status: Completed infusion ch5 Disposition Summary: 12/25/20 17:13 Hospitalization Ordered Hospitalization Status: Inpatient Admission ma2 Provider: Ferderick Gomez Location: Telemetry/MedSurg (Inpatient) ma2 Condition: Stable ma2 Problem: new ma2 Symptoms: are unchanged ma2 Bed/Room Type: Standard tx2 Room Assignment: 215(12/25/20 22:06) eb1 Diagnosis - Cellulitis of left lower limb ma2 - Other specified sepsis - with elevated troponin (12/25/20 17:13) ma2 Forms: - Medication Reconciliation Form ma2 - SBAR form ma2 Signatures: Dispatcher [employer] EDMS Laisha Medina Mohammad, MD MD ma2 Natalie John RN RN eb1 Conner Mccracken RN RN ll1 Henri Quintanilla RN RN ch5 Stephanie Hodge 4 Corrections: (The following items were deleted from the chart) 17:12 17:08 ED course: discussed with dr. gomez, patient has SIRS and cellulitis and elevated ma2 troponin . ma2 17:13 17:13 Other specified sepsis ma2 ma2 17:13 17:13 Subsequent non-ST elevation (NSTEMI) myocardial infarction ma2 ma2 20:27 17:17 Regular ordered. EDMS EDMS 21:00 19:28 CORONAVIRUS ordered. EDMS EDMS 22:06 17:13 ma2 eb1
--- NOTE | 2020-12-25 17:14 | ER ---
Nurse's Notes [facility] Name: Arminda Rodriguez Age: 80 yrs Sex: Female : 1940 Arrival Date: 12/25/2020 Time: 13:23 Bed 17 Private MD: Diagnosis: Other specified sepsis-with elevated troponin ;Cellulitis of left lower limb Presentation: 12/25 13:25 Chief complaint: EMS states: Feels weak, nausea for 2 days. Blood sugar was in the ll1 600's yesterday. Fever 99.4 today. Fingerstick 354 with ketones for EMS. Vitals were otherwise WNL. Family noticed a little red spot on top of her L foot. Not eating or drinking well. Coronavirus screen: Client denies travel out of the [place] in the last 14 days. fatigue, fever, nausea, Client presents with at least one sign or symptom that may indicate coronavirus-19. Standard/surgical mask placed on the client. Ebola Screen: Patient denies travel to an Ebola-affected area in the 21 days before illness onset. Risk Assessment: Do you want to hurt yourself or someone else? Patient reports no desire to harm self or others. Onset of symptoms was December 24, 2020. 13:25 Method Of Arrival: EMS: [facility] ll1 13:25 Acuity: GORDO 3 ll1 22:38 Initial Sepsis Screen: Does the patient meet any 2 criteria? No. Patient's initial kc4 sepsis screen is negative. Does the patient have a suspected source of infection? No. Patient's initial sepsis screen is negative. Triage Assessment: 22:38 General: Appears in no apparent distress. comfortable, obese, Behavior is calm, kc4 cooperative, appropriate for age. Pain: Denies pain. GI: Reports. Historical: - Allergies: 13:24 Hydrocodone-Acetaminophen; ll1 13:24 Januvia; ll1 13:24 Lantus; ll1 13:24 metformin; ll1 13:24 Byetta; ll1 13:24 Demerol; ll1 13:24 Niaspan; ll1 13:24 QUINOLONES; ll1 13:24 Augmentin; ll1 13:24 ANGIOTENSIN RECEPTOR ANTAGONIST; ll1 13:24 Sjitdde-Ryj-Ltt Reductase Inhibitors; ll1 13:24 Tetanus Immune Globulin; ll1 13:24 Zetia; ll1 13:24 Amoxicillin; ll1 13:24 Amaryl; ll1 - PMHx: 13:24 CAD; CVA; Diabetes - NIDDM; Hyperlipidemia; Hypertension; Myocardial infarction; ll1 VENTRAL HERNIA; - Immunization history:: Adult Immunizations up to date. - Social history:: Smoking status: Patient denies any tobacco usage or history of. Patient/guardian denies using alcohol, street drugs, The patient lives with family. - Family history:: not pertinent. Screenin:28 Abuse screen: Denies threats or abuse. Nutritional screening: No deficits noted. 1 Tuberculosis screening: No symptoms or risk factors identified. 13:31 Fall Risk None identified. 5 Assessment: 13:58 Reassessment: No changes from previously documented assessment. 5 16:21 Reassessment: Lab at bedside for Blood Draw. 5 22:38 GI: Abdomen is round distended, Bowel sounds present X 4 quads. Abd is soft and non kc4 tender X 4 quads. : No deficits noted. No signs and/or symptoms were reported regarding the genitourinary system. EENT: No deficits noted. Vital Signs: 13:31 BP 144 / 64; Pulse 78; Resp 18; Temp 100.5(T); Pulse Ox 87% on R/A; Weight 117.93 kg; 5 Height 5 ft. 3 in. (160.02 cm); Pain 0/10; 16:20 BP 113 / 62; Pulse 72; Resp 92; Pulse Ox 93% 2 lpm ; ch5 13:31 Body Mass Index 46.06 (117.93 kg, 160.02 cm) 5 ED Course: 13:23 Patient arrived in ED. 1 13:24 Benson Byrnes MD is Attending Physician. ct2 13:24 Arm band placed on Patient placed in an exam room, on a stretcher. 1 13:28 Triage completed. 1 13:28 Patient has correct armband on for positive identification. Bed in low position. Call 1 light in reach. Side rails up X 1. Pulse ox on. NIBP on. 13:31 Henri Quintanilla RN is Primary Nurse. 5 13:31 No provider procedures requiring assistance completed. 5 13:53 C-Reactive Protein Sent. 5 13:54 Blood Culture Sent. ch5 13:54 Amylase Sent. ch5 13:54 Basic Metabolic Panel Sent. ch5 13:55 Amylase, Serum Sent. ch5 13:55 Basic Metabolic Panel Sent. ch5 13:55 C-Reactive Protein Sent. ch5 13:55 Urine Microscopic Only Sent. ch5 13:56 Troponin (emerg Dept Use Only) Sent. ch5 13:56 Ptt, Activated Sent. ch5 13:56 Protime (+inr) Sent. ch5 13:56 Procalcitonin Sent. ch5 13:56 Lipase Sent. ch5 13:56 Lactate Sent. ch5 13:56 LFT's Sent. ch5 13:56 Ckmb Sent. ch5 13:56 CPK Sent. ch5 13:56 CBC with Diff Sent. ch5 13:58 Inserted saline lock: 20 gauge in left antecubital area, using aseptic technique. ch5 14:16 Chest Single View XRAY In Process Unspecified. EDMS 14:27 Warm blanket given. veterinary science teacher on. 5 15:24 EKG done, by ED staff, reviewed by Benson Byrnes MD. 5 16:20 Blood Culture Adult (2) Sent. ch5 17:13 Frederick Gomez MD is Hospitalizing Provider. ma2 19:58 COVID-19 (Coronavirus) Document "Date of Onset" if Symptomatic Sent. kc4 19:58 CBC with Automated Diff Sent. kc4 19:58 CBC with Automated Diff Sent. kc4 21:29 SARS-COV-2 RT PCR Sent. kc4 22:40 Patient admitted, IV remains in place. kc4 22:40 Blood Culture Sent. kc4 Administered Medications: 13:53 Drug: NS 0.9% 1000 ml Route: IV; Rate: 1 bolus; Site: left antecubital; ch5 18:32 Follow up: IV Status: Completed infusion ch5 16:36 Drug: Clindamycin 600 mg Route: IVPB; Infused Over: 30 mins; Site: left antecubital; ch5 18:31 Follow up: IV Status: Completed infusion ch5 Outcome: 17:13 Decision to Hospitalize by Provider. ma2 22:39 Admitted to Med/surg accompanied by tech, via stretcher, room 215, with oxygen, with kc4 chart, Report called to Deuce DEE 22:39 Condition: stable 22:39 Instructed on the need for admit. 22:41 Patient left the ED. kc4 Signatures: Dispatcher [employer] EDMS Bess Darling Benson Grossman MD MD ma2 Conner Mccracken RN RN 1 Henri Quintanilla RN RN 5 Stephanie Hodge 4 Corrections: (The following items were deleted from the chart) 13:30 13:25 Chief complaint: EMS states: Feels weak, nausea for 2 days. Blood sugar was in ll1 the 600's yesterday. Fever 99.4 today. Fingerstick 354 with ketones for EMS. Vitals were otherwise WNL. ll1 21:00 19:57 CORONAVIRUS drawn and sent. kc4 EDAR
[2020-12-25] MEDS ORDERED: D50W 25 GM/50 ML SYRINGE IV PRN (20:20)
[2020-12-25] MEDS ORDERED: GLUCAGON 1 MG/VIAL IM PRN (20:20)
[2020-12-25] MEDS ORDERED: INSULIN GLARGINE 100 UNITS/ML SQ ONE ×2 (20:21→21:33)
[2020-12-25] MEDS: INSULIN -REGULAR HUMAN 50 UNIT/0.5 ML ML SQ SCH (21:00)
[2020-12-25] MEDS ORDERED: INSULIN -REGULAR HUMAN 50 UNIT/0.5 ML ML ONE (21:33)
[2020-12-25] MEDS ORDERED: ENOXAPARIN 40 MG/0.4 ML SQ ONE (21:47)
[2020-12-25] MEDS ORDERED: ASPIRIN 81 MG CHEWABLE TABLET PO ONE (21:48)
[2020-12-25] MEDS ORDERED: ASPIRIN 81 MG CHEWABLE TABLET ONE (22:14)
[2020-12-25] MEDS ORDERED: ENOXAPARIN 60 MG/0.6 ML SQ ONE (22:15)
[2020-12-26] MEDS ORDERED: hydrOXYzine HCL 25 MG TAB PO PRN (06:29)
--- NOTE | 2020-12-26 06:40 | P.HP ---
Certification for Inpatient Patient admitted to: Inpatient With expected LOS: >2 Midnights Practitioner: I am a practitioner with admitting privileges, knowledge of patient current condition, hospital course, and medical plan of care. Services: Services provided to patient in accordance with Admission requirements found in Title 42 Section 412.3 of the Code of Federal Regulations Patient History Date of Service: 12/25/20 Reason for admission: FOOT PAIN, FEVER, LETHARGY History of Present Illness: AMBIKA IS WELL KNOWN TO ME. SHE HAS MULTIPLE MEDICAL ISSUES INCLUDING DIABE TEO, HFPEF, HTN, DJD. NEUROPATHY, OBESITY, ESSENTIAL THROMBOCYTOSIS ETC. SHE COMES TO [facility] WITH PAIN IN FOOT AND FEVER FOR TWO DAYS. HER GLUCOSE WENT HIGH TO 500. FAMILY DENIES THAT SHE FELL. SHE IS WC BOUND. Allergies amoxicillin Allergy (Verified 05/30/20 03:48) Anaphylaxis clavulanic acid [From Augmentin] Allergy (Verified 05/30/20 03:48) Hives/Rash exenatide [From Byetta] Allergy (Verified 05/30/20 03:48) Itching/Hives/Rash ezetimibe [From Zetia] Allergy (Verified 07/27/18 13:00) Itching/Hives/Rash glimepiride [From Amaryl] Allergy (Verified 05/30/20 03:48) Itching/Hives/Rash hydrocodone Allergy (Verified 05/30/20 03:48) Nausea/Vomiting insulin glargine [From Lantus U-100 Insulin] Allergy (Verified 05/30/20 03:48) myalgia meperidine [From Demerol] Allergy (Verified 05/30/20 03:48) Itching/Hives/Rash metformin Allergy (Verified 05/30/20 03:48) unknown niacin [From Niaspan Extended-Release] Allergy (Verified 05/30/20 03:48) Itching/Hives/Rash Quinolones Allergy (Verified 05/30/20 03:48) Itching/Hives/Rash sitagliptin [From Januvia] Allergy (Verified 05/30/20 03:48) Itching/Hives/Rash Vlzipyz-YMC-IzI Reductase Inhibitor [Tyxyfjr-Kxm-Kdc Reductase Inhibitor] Allergy (Verified 05/30/20 03:48) Nausea/Vomiting tetanus and diphtheria toxoids Allergy (Verified 05/30/20 03:48) Itching/Hives/Rash spironolactone Adverse Reaction (Verified 05/30/20 03:48) high K, Dehydration angiotensin Allergy (Uncoded 07/27/18 13:00) Nausea/Vomiting Home Medications: Aspirin 81 mg PO DAILY 05/08/19 Magnesium Oxide [Mag 0X*] 400 mg PO DAILY 05/08/19 Pregabalin 75 mg PO DAILY 05/08/19 Hydroxyurea [Hydrea*] 500 mg PO BID 05/29/20 Pantoprazole [Protonix Tab*] 40 mg PO DAILY 05/29/20 Apixaban [Eliquis] 5 mg PO BID 09/04/20 Atorvastatin Calcium 40 mg PO DAILY 12/25/20 Furosemide 40 mg PO DAILY 12/25/20 Spironolactone 25 mg PO DAILY 12/25/20 Vitamin D3 125 mcg PO DAILY 12/25/20 hydrOXYzine pamoate [Hydroxyzine Pamoate] 25 mg PO BID PRN 12/25/20 - Past Medical/Surgical History Diabetic: Yes -: HTN -: DM 2 -: stroke 2014 -: Thrombocytopenia -: Hernia -: SOB -: Stroke x 3 -: CAD -: carotid stenosis right 90% -: vertiginous syndrome -: hyperglobulinemia, hypergammaglobulinemia -: dyslipidemia -: Hysterectomy -: Bladder suspension -: Hernia repair -: Spleenectomy -: Cholesystectomy -: Tonsillectomy -: Colonoscopy and Polyps removal -: endarterectomy, carotid 07/2018 - Family History Father -: Heart disease - Social History Smoking Status: Unknown if ever smoked Alcohol use: No CD- Drugs: No Caffeine use: No Place of Residence: Home Review of Systems 10-point ROS is otherwise unremarkable General: Weakness, Malaise, As per HPI Physical Examination - Vital Signs Temperature: 97.9 F Blood Pressure: 109/55 Pulse: 70 Respirations: 18 Pulse Ox (%): 93 - Physical Exam General: Moderate distress, Obese, Other (WC BOUND.) HEENT: Atraumatic, PERRLA, Mucous membr. moist/pink, EOMI, Sclerae nonicteric Neck: Supple, 2+ carotid pulse no bruit, No LAD, Without JVD or thyroid abnormality Respiratory: Clear to auscultation bilaterally, Normal air movement Cardiovascular: Regular rate/rhythm, Normal S1 S2 Gastrointestinal: Normal bowel sounds, No tenderness Musculoskeletal: No tenderness Integumentary: No rashes, Tenderness/swelling (L FOOT DORSUM HAS 1 CM TENDER NODULE AND 3 CM ABOUT CELLULITS. FOREFOOT HAS ECCHYMOSIS FROM PRESSURE OF S OMEKIND.), Erythema Neurological: Normal gait, Normal speech, Normal strength at 5/5 x4 extr, Normal tone, Normal affect Lymphatics: No axilla or inguinal lymphadenopathy - Studies Laboratory Data (last 24 hrs) 12/25/20 19:56: Troponin I 3.25 H* 12/25/20 15:38: PT 19.5 H, INR 1.69, APTT 32.4 12/25/20 15:38: WBC 13.40 H, Hgb 11.7 L, Hct 34.4 L, Plt Count 186 12/25/20 15:38: Sodium 135 L, Potassium 4.2, BUN 42 H, Creatinine 1.47 H, G lucose 313 H, Total Bilirubin 0.7, AST 54 H, ALT 36, Alkaline Phosphatase 92, Amylase 23 L, Lipase 50 L Assessment and Plan - Problems (Diagnosis) (1) Cellulitis of foot Current Visit: Yes Status: Acute Plan: POSSIBLE POST INJURY ROCEPHIN IV SHOULD WORK IF NOT WILL CHANGE TO VANCOMYCIN. (2) Diabetic neuropathy Current Visit: Yes Status: Acute Qualifiers: Diabetes mellitus type: type 2 Diabetes mellitus complication detail: diabetic polyneuropathy Qualified Code(s): E11.42 - Type 2 diabetes mellitus with diabetic polyneuropathy (3) (HFpEF) heart failure with preserved ejection fraction Current Visit: Yes Status: Chronic Qualifiers: Heart failure chronicity: chronic Qualified Code(s): I50.32 - Chronic diastolic (congestive) heart failure (4) HTN (hypertension) Current Visit: No Status: Chronic Qualifiers: Hypertension type: primary hypertension Qualified Code(s): I10 - Essential (primary) hypertension (5) Dehydration Current Visit: Yes Status: Acute Plan: SHE IS AT HER BASELINE. ANY LESSER MEDICINES SHE GOES INTO ACUTE FAILURE. (6) Diabetes type 2, uncontrolled Current Visit: Yes Status: Chronic Plan: DIET IS POOR FOR LIFETIME AND SO SHE IS HAVING COMPLICATIONS OF DM. WHENEVER I SEE HER SHE IS EATING DIET THAT IS POOR FOR DIABETES AND IS NOT ABLE TO CHANGE. I SAW HER IN ER AT 7 PM LAST NIGHT. RECORDS WERE NOT READY FOR ME TO DOCUMENT LAST NIGHT. - Advance Directives Does patient have a Living Will: Yes Does patient have a Durable POA for Healthcare: Yes
[2020-12-26] MEDS: INSULIN -REGULAR HUMAN 50 UNIT/0.5 ML ML SQ SCH ×4 (08:53→21:00)
[2020-12-26] MEDS: ASPIRIN 81 MG CHEWABLE TABLET PO SCH (08:54)
[2020-12-26] MEDS: HYDROXYUREA 500 MG CAP PO SCH ×2 (08:54→21:00)
[2020-12-26] MEDS: MAGNESIUM OXIDE 400 MG TAB PO SCH (08:55)
[2020-12-26] MEDS: ATORVASTATIN 40 MG TAB PO SCH (08:55)
[2020-12-26] MEDS: PREGABALIN 75 MG CAP PO SCH (08:55)
[2020-12-26] MEDS: VITAMIN D 5,000 UNIT CAP PO SCH (08:55)
[2020-12-26] MEDS: APIXABAN 5 MG TABLET PO SCH ×2 (08:55→21:00)
[2020-12-26] MEDS: PANTOPRAZOLE 40MG TABLET PO SCH (08:58)
[2020-12-26] MEDS ORDERED: CEFEPIME 1 GM/VIAL IV SCH (09:00)
[2020-12-26] MEDS ORDERED: SPIRONOLACTONE 25 MG TABLET PO SCH (09:00)
[2020-12-26] MEDS ORDERED: CEFTRIAXONE 1 GM/NS 50 ML 1 GM/50 ML BAG IV SCH (09:00)
[2020-12-26] MEDS ORDERED: FUROSEMIDE 40 MG TABLET PO SCH (09:00)
[2020-12-26] MEDS: CEFEPIME 1 GM in NA CHLORIDE 0.9% 100 ML IV SCH (09:33)
[2020-12-26 10:27] LABS: Hematocrit 36.5 % (36.0-45.0); Lymphocytes % 1.1 % (15.3-44.8); MPV 10.7 fL (7.6-11.3); RBC Red Blood Cell Count 3.35 M/uL (3.86-4.86)
[2020-12-26 10:30] LABS: Potassium 3.8 mmol/L (3.5-5.1)
[2020-12-26] MEDS: ACETAMINOPHEN 500 MG TAB PO PRN (10:50)
[2020-12-26 11:55] LABS: Urine Appearance CLOUDY (Clear); Urine Bilirubin NEGATIVE (Negative); Urine Blood 2+ (Negative); Urine Color YELLOW (Yellow); Urine Glucose 3+ (Negative); Urine Protein 2+ (Negative); Urine Urobilinogen 0.2 mg/dL (0.2-1.0); Urine pH 5.5 (5.0-7.0)
[2020-12-26 12:06] LABS: Urine Bacteria LOADED /HPF (<20)
--- NOTE | 2020-12-26 12:34 | CON ---
Date of Consultation: 12/26/2020 Reason For Consultation: Elevated troponin. History Of Present Illness: Ms. Rodriguez is 80. She is very well known to me from office visits and ad mission. She has a history of coronary artery disease, history of CVA, diabetes, hypertension, dysli pidemia. Has done fairly well from a cardiac standpoint. Was admitted for cellulitis and fever and was found to be septic with an elevated CRP, elevated troponin, elevated creatinine. Glucose was 333 . No cardiac symptoms reported. Echocardiogram is pending. Past Medical History: As stated above. Allergies: SHE IS ALLERGIC TO ZETIA, GLIMEPIRIDE, AUGMENTIN, INSULIN, HYDROCODONE, AND DEMEROL. Review of Systems: Negative. Social History: Negative. Family History: Negative. Medications: At home include Eliquis, aspirin, Lipitor, Lasix, hydroxyurea, magnesium, Lyrica, Cassandra nix, Aldactone, and Atarax. Physical Examination: General: Ms. Rodriguez was having severe chills when I saw her. She was complaining of being cold. No chest pain. Vital Signs: Stable. She was afebrile. She was in sinus rhythm. HEENT: Negative. Neck: Supple with no bruit. Chest: Clear. Cardiac: Revealed a regular rhythm and rate with no murmurs, gallops, or rubs. Abdomen: Benign. Extremities: Revealed no clubbing, cyanosis, or edema. Diagnostic Data: As stated earlier. Impression And Plan: 1.Elevated troponin secondary to sepsis. Echocardiogram is pending. 2.Elevated creatinine. 3.Elevated glucose level secondary to poorly controlled diabetes. 4.Elevated CRP secondary to sepsis. 5.Cellulitis and sepsis with positive blood cultures. 6.Paroxysmal atrial fibrillation. She is on Eliquis. She is in sinus rhythm now. 7.History of coronary artery disease. 8.History of cerebrovascular accident. 9.History of hypertension, well controlled. 10.History of dyslipidemia, well controlled. 11.History of gastroesophageal reflux disease. 12.History of neuropathy. I will continue to follow her along. If the echocardiogram shows any wal l motion abnormalities, we will readdress the issue. For now, continue present regimen. Case was di scussed with Dr. Gomez. PEE/SULEIMAN Voice ID: [id number] Report ID: [id number]
--- NOTE | 2020-12-26 13:22 | ECHO ---
HEIGHT: 5 ft 3 in WEIGHT: 255 lb 9.6 oz DATE OF STUDY: 12/26/[address]: Adán Harvey MD 2-DIMENSIONAL: YES M.MODE: YES DOPPLER: YES COLOR FLOW: YES TDS: PORTABLE: DEFINITY: BUBBLE STUDY: DIAGNOSIS: ELEVATED TROPONIN CARDIAC HISTORY: CATHERIZATION: NO SURGERY: YES PROSTHETIC VALVE: NO PACEMAKER: NO MEASUREMENTS (cm) DIASTOLIC (NORMALS) SYSTOLIC (NORMALS) IVSd 1.0 (0.6-1.2) LA Diam 4.4 (1.9-4.0) LVEF 51% LVIDd 4.5 (3.5-5.7) LVIDs 3.3 (2.0-3.5) %FS 26% LVPWd 1.2 (0.6-1.2) Ao Diam 2.7 (2.0-3.7) 2 DIMENSIONAL ASSESSMENT: RIGHT ATRIUM: NORMAL LEFT ATRIUM: DILATED RIGHT VENTRICLE: NORMAL LEFT VENTRICLE: NORMAL TRICUSPID VALVE: NORMAL MITRAL VALVE: MITRAL ANNULAR CALCIFICATION PULMONIC VALVE: NORMAL AORTIC VALVE: SCLEROSIS PERICARDIAL EFFUSION: NONE AORTIC ROOT: NORMAL LEFT VENTRICULAR WALL MOTION: NORMAL DOPPLER/COLOR FLOW: MILD TRICUSPID REGURGITATION. COMMENTS: MITRAL ANNULAR CALCIFICATION. MILD TRICUSPID REGURGITATION. NORMAL RIGHT VENTRICULAR SYSTOLIC PRESSURE. AORTIC SCLEROSIS. NO STENOSIS. NORMAL EJECTION FRACTION AND LEFT VENTRICULAR SIZE. LEFT ATRIAL ENLARGEMENT. TECHNOLOGIST: EDDIE ROY
[2020-12-26] MEDS ORDERED: NA CHLORIDE 0.9% 500 ML IV ONE (16:44)
[2020-12-26] MEDS ORDERED: Ringers Lactate 1,000 ML IV SCH (17:00)
[2020-12-26] MEDS ORDERED: D50W 25 GM/50 ML SYRINGE IV PRN (17:44)
[2020-12-26] MEDS ORDERED: GLUCAGON 1 MG/VIAL IM PRN (17:44)
[2020-12-26] MEDS: Ringers Lactate 1,000 ML IV SCH (17:45)
--- NOTE | 2020-12-26 17:55 | P.PN ---
Subjective Date of Service: 12/26/20 Chief Complaint: FOOT PAIN, FEVER, LETHARGY Subjective: New changes (TODAY HAS CHILLS.) AMIBKA IS ON ABX SINCE LAST NIGHT AND THIS AM HAS CHILLS. HER BP IS LOW NORMAL. I TOLD RN TO GIVE IV BOLUS. THEY CALLED ME ABOUT 5 ITMES TODAY. HER BC4 ARE POS. WITH GRAM NEG BACILLI. ID PENDING. I CHANGED ABX TO CEFEPIME, NOT KNOWING THE SOURCE. SHE IS ALLERGIC TO MULTIPLE MEDICINES INCLUDING MANY ANTIBIOTICS. Review of Systems 10-point ROS is otherwise unremarkable General: Weakness, Malaise Cardiovascular: As per HPI Physical Examination - Vital Signs Temperature: 98.1 F Blood Pressure: 99/48 Pulse: 75 Respirations: 20 Pulse Ox (%): 92 - Physical Exam General: Oriented x3, Moderate distress, Obese HEENT: Atraumatic, PERRLA, EOMI Neck: Supple, JVD not distended Respiratory: Clear to auscultation bilaterally, Normal air movement Cardiovascular: Regular rate/rhythm, Normal S1 S2 Gastrointestinal: Normal bowel sounds, No tenderness Musculoskeletal: No tenderness Integumentary: No rashes Neurological: Normal speech, Normal tone, Normal affect Lymphatics: No axilla or inguinal lymphadenopathy - Studies Laboratory Data (last 24 hrs) 12/25/20 19:56: Troponin I 3.25 H* Microbiology Data (last 24 hrs): 12/25/20 16:27 Blood - Blood Blood Culture Gram Stain - Final 12/25/20 16:20 Blood - Blood Blood Culture Gram Stain - Final 12/25/20 16:20 Blood - Blood Gram Stain - Final Medications List Reviewed: Yes Assessment And Plan - Current Problems (Diagnosis) (1) Cellulitis of foot Current Visit: Yes Status: Acute Plan: POSSIBLE POST INJURY ROCEPHIN IV SHOULD WORK IF NOT WILL CHANGE TO VANCOMYCIN. THIS HAS IMPROVED SIGNIFICANTLY. (2) Diabetic neuropathy Current Visit: Yes Status: Acute Qualifiers: Diabetes mellitus type: type 2 Diabetes mellitus complication detail: diabetic polyneuropathy Qualified Code(s): E11.42 - Type 2 diabetes mellitus with diabetic polyneuropathy (3) (HFpEF) heart failure with preserved ejection fraction Current Visit: Yes Status: Chronic Qualifiers: Heart failure chronicity: chronic Qualified Code(s): I50.32 - Chronic diastolic (congestive) heart failure (4) HTN (hypertension) Current Visit: No Status: Chronic Qualifiers: Hypertension type: primary hypertension Qualified Code(s): I10 - Essential (primary) hypertension (5) Dehydration Current Visit: Yes Status: Acute Plan: SHE IS AT HER BASELINE. ANY LESSER MEDICINES SHE GOES INTO ACUTE FAILURE. (6) Diabetes type 2, uncontrolled Current Visit: Yes Status: Chronic Plan: DIET IS POOR FOR LIFETIME AND SO SHE IS HAVING COMPLICATIONS OF DM. WHENEVER I SEE HER SHE IS EATING DIET THAT IS POOR FOR DIABETES AND IS NOT ABLE TO CHANGE. I SAW HER IN ER AT 7 PM LAST NIGHT. RECORDS WERE NOT READY FOR ME TO DOCUMENT LAST NIGHT. (7) Gram-neg septicemia Current Visit: Yes Status: Acute Plan: BC POS ABX CEFEPIME. ID PENDING. CULTURE PENDING. SOURCE MAY BE URINE. (8) Septic shock Current Visit: Yes Status: Acute Plan: IV BOLUS AND CONT RL. WILL WATCH FOR CHF SHE HAS HFPEF HISTORY.
[2020-12-26] MEDS: INSULIN GLARGINE 100 UNITS/ML SQ SCH (21:00)
[2020-12-27] MEDS: Ringers Lactate 1,000 ML IV SCH ×2 (04:37→13:45)
[2020-12-27 09:23] LABS: Absolute Lymphocytes (CBC) 0.5 K/uL (0.7-4.9); Basophils % 0.2 % (0-1.3); Hematocrit 37.4 % (36.0-45.0); Lymphocytes % 3.7 % (15.3-44.8); MPV 11.4 fL (7.6-11.3); RBC Red Blood Cell Count 3.47 M/uL (3.86-4.86)
[2020-12-27] MEDS: PREGABALIN 75 MG CAP PO SCH (09:23)
[2020-12-27] MEDS: MAGNESIUM OXIDE 400 MG TAB PO SCH (09:23)
[2020-12-27] MEDS: HYDROXYUREA 500 MG CAP PO SCH ×2 (09:23→22:59)
[2020-12-27] MEDS: ATORVASTATIN 40 MG TAB PO SCH (09:23)
[2020-12-27] MEDS: ASPIRIN 81 MG CHEWABLE TABLET PO SCH (09:23)
[2020-12-27] MEDS: APIXABAN 5 MG TABLET PO SCH ×2 (09:23→22:59)
[2020-12-27] MEDS: PANTOPRAZOLE 40MG TABLET PO SCH (09:28)
[2020-12-27] MEDS: INSULIN -REGULAR HUMAN 50 UNIT/0.5 ML ML SQ SCH ×4 (09:29→22:58)
[2020-12-27] MEDS: VITAMIN D 5,000 UNIT CAP PO SCH (09:32)
[2020-12-27] MEDS: CEFEPIME 1 GM in NA CHLORIDE 0.9% 100 ML IV SCH (09:33)
[2020-12-27 09:45] LABS: Potassium 4.5 mmol/L (3.5-5.1)
[2020-12-27] MEDS ORDERED: NITROGLYCERIN 0.4 MG/TAB SL ONE (11:16)
--- NOTE | 2020-12-27 12:20 | RAD REPORT ---
EXAM DESCRIPTION: Gio Single View12/27/2020 12:04 pm CLINICAL HISTORY: Chest pain COMPARISON: December 25, 2020 FINDINGS: Mild bilateral pulmonary opacities The heart is mildly to moderately enlarged. IMPRESSION: Mild bilateral pulmonary opacities probably pulmonary edema.
--- NOTE | 2020-12-27 21:25 | P.PN ---
Subjective Date of Service: 12/27/20 Chief Complaint: FOOT PAIN, FEVER, LETHARGY Subjective: Improving AMBIKA IS ON ABX SINCE LAST NIGHT AND THIS AM HAS CHILLS. HER BP IS LOW NORMAL. I TOLD RN TO GIVE IV BOLUS. THEY CALLED ME ABOUT 5 ITMES TODAY. HER BC4 ARE POS. WITH GRAM NEG BACILLI. ID PENDING. I CHANGED ABX TO CEFEPIME, NOT KNOWING THE SOURCE. SHE IS ALLERGIC TO MULTIPLE MEDICINES INCLUDING MANY ANTIBIOTICS. SHE HAD CHILLS YESTERDAY. BC2 ID IS PENDING. I TALKED TO DAUGHTER TO GIVE HER REPORT YESTERDAY. SHE FEELS STABLE TODAY, HAS NO CHILLS. Physical Examination - Vital Signs Temperature: 98.4 F Blood Pressure: 104/60 Pulse: 67 Respirations: 19 Pulse Ox (%): 97 - Physical Exam General: Oriented x3, Mild distress, Obese HEENT: Atraumatic, PERRLA, EOMI Neck: Supple, JVD not distended Respiratory: Clear to auscultation bilaterally, Normal air movement Cardiovascular: Regular rate/rhythm, Normal S1 S2 Gastrointestinal: Normal bowel sounds, No tenderness Musculoskeletal: No tenderness Integumentary: No rashes Neurological: Normal speech, Normal tone, Normal affect Lymphatics: No axilla or inguinal lymphadenopathy - Studies Microbiology Data (last 24 hrs): 12/25/20 16:27 Blood - Blood Blood Culture Gram Stain - Final 12/25/20 16:20 Blood - Blood Blood Culture Gram Stain - Final 12/25/20 16:20 Blood - Blood Gram Stain - Final Medications List Reviewed: Yes Assessment And Plan - Current Problems (Diagnosis) (1) Cellulitis of foot Current Visit: Yes Status: Acute Plan: POSSIBLE POST INJURY ROCEPHIN IV SHOULD WORK IF NOT WILL CHANGE TO VANCOMYCIN. THIS HAS IMPROVED SIGNIFICANTLY. (2) Diabetic neuropathy Current Visit: Yes Status: Acute Qualifiers: Diabetes mellitus type: type 2 Diabetes mellitus complication detail: diabetic polyneuropathy Qualified Code(s): E11.42 - Type 2 diabetes mellitus with diabetic polyneuropathy (3) (HFpEF) heart failure with preserved ejection fraction Current Visit: Yes Status: Chronic Qualifiers: Heart failure chronicity: chronic Qualified Code(s): I50.32 - Chronic diastolic (congestive) heart failure (4) HTN (hypertension) Current Visit: No Status: Chronic Qualifiers: Hypertension type: primary hypertension Qualified Code(s): I10 - Essential (primary) hypertension (5) Dehydration Current Visit: Yes Status: Acute Plan: SHE IS AT HER BASELINE. ANY LESSER MEDICINES SHE GOES INTO ACUTE FAILURE. (6) Diabetes type 2, uncontrolled Current Visit: Yes Status: Chronic Plan: DIET IS POOR FOR LIFETIME AND SO SHE IS HAVING COMPLICATIONS OF DM. WHENEVER I SEE HER SHE IS EATING DIET THAT IS POOR FOR DIABETES AND IS NOT ABLE TO CHANGE. I SAW HER IN ER AT 7 PM LAST NIGHT. RECORDS WERE NOT READY FOR ME TO DOCUMENT LAST NIGHT. (7) Gram-neg septicemia Current Visit: Yes Status: Acute Plan: BC POS ABX CEFEPIME. ID PENDING. CULTURE PENDING. SOURCE MAY BE URINE. ID PENDING. CONTINUE CEFEPIME FOR NOW. CHANGE RL TO SL SHE HAS HISTORY OF CHF. NO SS FOR NOW. CXR SHOWS MILD PULMONARY EDEMA. (8) Septic shock Current Visit: Yes Status: Acute Plan: IV BOLUS AND CONT RL. WILL WATCH FOR CHF SHE HAS HFPEF HISTORY.
[2020-12-27] MEDS: INSULIN GLARGINE 100 UNITS/ML SQ SCH (22:58)
[2020-12-27] MEDS: ACETAMINOPHEN 500 MG TAB PO PRN (23:03)
[2020-12-28 05:40] LABS: Absolute Lymphocytes (CBC) 0.9 K/uL (0.7-4.9); Basophils % 0.4 % (0-1.3); Hematocrit 35.1 % (36.0-45.0); Lymphocytes % 9.3 % (15.3-44.8); RBC Red Blood Cell Count 3.25 M/uL (3.86-4.86)
[2020-12-28 06:01] LABS: Potassium 4.2 mmol/L (3.5-5.1)
[2020-12-28 08:42] LABS: Blood Morphology Comment NOTED (NOT SEEN); Platelet Estimate ADEQ; Platelets, Giant NOTED
[2020-12-28 08:43] LABS: Macrocytosis 1+
[2020-12-28] MEDS: PANTOPRAZOLE 40MG TABLET PO SCH (09:20)
[2020-12-28] MEDS: INSULIN -REGULAR HUMAN 50 UNIT/0.5 ML ML SQ SCH ×4 (09:20→21:26)
[2020-12-28] MEDS: HYDROXYUREA 500 MG CAP PO SCH ×2 (09:21→21:22)
[2020-12-28] MEDS: PREGABALIN 75 MG CAP PO SCH (09:21)
[2020-12-28] MEDS: MAGNESIUM OXIDE 400 MG TAB PO SCH (09:21)
[2020-12-28] MEDS: APIXABAN 5 MG TABLET PO SCH ×2 (09:21→21:23)
[2020-12-28] MEDS: VITAMIN D 5,000 UNIT CAP PO SCH (09:21)
[2020-12-28] MEDS: ATORVASTATIN 40 MG TAB PO SCH (09:22)
[2020-12-28] MEDS: CEFTRIAXONE 1 GM/NS 50 ML 1 GM/50 ML BAG IV SCH ×2 (09:22→21:25)
[2020-12-28] MEDS: ASPIRIN 81 MG CHEWABLE TABLET PO SCH (09:22)
[2020-12-28] MEDS: ACETAMINOPHEN 500 MG TAB PO PRN ×2 (12:24→21:23)
--- NOTE | 2020-12-28 13:51 | P.PN ---
Subjective Date of Service: 12/28/20 Chief Complaint: FOOT PAIN, FEVER, LETHARGY Subjective: Improving AMBIKA IS ON ABX SINCE LAST NIGHT AND THIS AM HAS CHILLS. HER BP IS LOW NORMAL. I TOLD RN TO GIVE IV BOLUS. THEY CALLED ME ABOUT 5 ITMES TODAY. HER BC4 ARE POS. WITH GRAM NEG BACILLI. ID PENDING. I CHANGED ABX TO CEFEPIME, NOT KNOWING THE SOURCE. SHE IS ALLERGIC TO MULTIPLE MEDICINES INCLUDING MANY ANTIBIOTICS. SHE HAD CHILLS YESTERDAY. BC2 ID IS PENDING. I TALKED TO DAUGHTER TO GIVE HER REPORT YESTERDAY. SHE FEELS STABLE TODAY, HAS NO CHILLS. STILL LOW GRADE FEVER. WANTS TO GO HOME BUT STILL NOT READY YET. Review of Systems 10-point ROS is otherwise unremarkable General: Weakness, Malaise Physical Examination - Vital Signs Temperature: 100 F Blood Pressure: 110/56 Pulse: 62 Respirations: 18 Pulse Ox (%): 96 - Physical Exam General: Oriented x3, Mild distress, Obese HEENT: Atraumatic, PERRLA, EOMI Neck: Supple, JVD not distended Respiratory: Clear to auscultation bilaterally, Normal air movement Cardiovascular: Regular rate/rhythm, Normal S1 S2 Gastrointestinal: Normal bowel sounds, No tenderness Musculoskeletal: No tenderness Integumentary: No rashes Neurological: Normal speech, Normal tone, Normal affect Lymphatics: No axilla or inguinal lymphadenopathy - Studies Microbiology Data (last 24 hrs): 12/25/20 16:20 Blood - Blood Aerobic Blood Culture - Final Escherichia Coli 12/25/20 16:20 Blood - Blood Blood Culture Gram Stain - Final 12/25/20 16:20 Blood - Blood Anaerobic Blood Culture - Final Escherichia Coli 12/25/20 16:20 Blood - Blood Gram Stain - Final 12/25/20 16:27 Blood - Blood Aerobic Blood Culture - Final Escherichia Coli 12/25/20 16:27 Blood - Blood Blood Culture Gram Stain - Final Medications List Reviewed: Yes Assessment And Plan - Current Problems (Diagnosis) (1) Cellulitis of foot Current Visit: Yes Status: Acute Plan: POSSIBLE POST INJURY ROCEPHIN IV SHOULD WORK IF NOT WILL CHANGE TO VANCOMYCIN. THIS HAS IMPROVED SIGNIFICANTLY. SMALL ABSCESS IS NOT BETTER ERYTHEMA IS WORSE MRSA LIKELY. WILL ADD VANCOMYCIN. (2) Diabetic neuropathy Current Visit: Yes Status: Chronic Qualifiers: Diabetes mellitus type: type 2 Diabetes mellitus complication detail: diabetic polyneuropathy Qualified Code(s): E11.42 - Type 2 diabetes mellitus with diabetic polyneuropathy (3) (HFpEF) heart failure with preserved ejection fraction Current Visit: Yes Status: Chronic Qualifiers: Heart failure chronicity: chronic Qualified Code(s): I50.32 - Chronic diastolic (congestive) heart failure (4) HTN (hypertension) Current Visit: No Status: Chronic Qualifiers: Hypertension type: primary hypertension Qualified Code(s): I10 - Essential (primary) hypertension (5) Dehydration Current Visit: Yes Status: Acute Plan: SHE IS AT HER BASELINE. ANY LESSER MEDICINES SHE GOES INTO ACUTE FAILURE. (6) Diabetes type 2, uncontrolled Current Visit: Yes Status: Chronic Plan: DIET IS POOR FOR LIFETIME AND SO SHE IS HAVING COMPLICATIONS OF DM. WHENEVER I SEE HER SHE IS EATING DIET THAT IS POOR FOR DIABETES AND IS NOT ABLE TO CHANGE. I SAW HER IN ER AT 7 PM LAST NIGHT. RECORDS WERE NOT READY FOR ME TO DOCUMENT LAST NIGHT. (7) Gram-neg septicemia Current Visit: Yes Status: Acute Plan: BC POS ABX CEFEPIME. ID PENDING. CULTURE PENDING. SOURCE MAY BE URINE. ID PENDING. CONTINUE CEFEPIME FOR NOW. CHANGE RL TO SL SHE HAS HISTORY OF CHF. NO SS FOR NOW. CXR SHOWS MILD PULMONARY EDEMA. IV ROCEPHIN CULTURE SHOWS SENSITIVITY URINE AND BLOOD BOTH HAVE IT. SHE WILL NEED PICC LINE SHE WILL NEED BOTH ROCEPHIN AND VANCOMYCIN. (8) Septic shock Current Visit: Yes Status: Acute Plan: IV BOLUS AND CONT RL. WILL WATCH FOR CHF SHE HAS HFPEF HISTORY.
[2020-12-28] MEDS: VANCOMYCIN 2 GM in NA CHLORIDE 0.9% 500 ML IVPB SCH (15:17)
[2020-12-28] MEDS: INSULIN GLARGINE 100 UNITS/ML SQ SCH (21:29)
[2020-12-29] MEDS: ACETAMINOPHEN 500 MG TAB PO PRN (01:53)
[2020-12-29] MEDS ORDERED: ACETAMINOPHEN 500 MG TAB ONE (02:15)
[2020-12-29 05:04] VITALS: BMI 45.1
[2020-12-29 06:27] LABS: Absolute Lymphocytes (CBC) 0.9 K/uL (0.7-4.9); Basophils % 0.6 % (0-1.3); Hematocrit 33.7 % (36.0-45.0); Lymphocytes % 11.9 % (15.3-44.8); MPV 11.3 fL (7.6-11.3); RBC Red Blood Cell Count 3.16 M/uL (3.86-4.86)
[2020-12-29] MEDS ORDERED: ALBUTEROL 2.5 MG/3 ML NEB SOL NEB ONE (06:35)
[2020-12-29] MEDS ORDERED: LEVALBUTEROL 1.25 MG/3 ML NEB NEB ONE (06:46)
[2020-12-29 06:51] LABS: Potassium 4.1 mmol/L (3.5-5.1)
--- NOTE | 2020-12-29 08:05 | RAD REPORT ---
EXAM DESCRIPTION: RAD - Chest Single View - 12/29/2020 6:53 am CLINICAL HISTORY: sob, wheezing, dry cough COMPARISON: Chest Single View dated 12/27/2020; Chest Single View dated 12/25/2020; Chest Pa And Lat (2 Views) dated 12/17/2020; Chest Single View dated 11/21/2020; Abdomen Pelvis Wo Contrast dated FINDINGS: Lines: None. Lungs: Decreased lung volumes with bilateral interstitial airspace disease likely representing pulmon cass edema. Pleural: No significant pleural effusions or pneumothorax. Cardiac: Cardiomegaly. Bones: No acute fractures. Other: Sternotomy IMPRESSION: Decreased lung volumes with pulmonary edema.
--- NOTE | 2020-12-29 08:35 | P.PN ---
Subjective Date of Service: 12/29/20 Chief Complaint: FOOT PAIN, FEVER, LETHARGY Subjective: New changes AMBIKA IS ON ABX SINCE LAST NIGHT AND THIS AM HAS CHILLS. HER BP IS LOW NORMAL. I TOLD RN TO GIVE IV BOLUS. THEY CALLED ME ABOUT 5 ITMES TODAY. HER BC4 ARE POS. WITH GRAM NEG BACILLI. ID PENDING. I CHANGED ABX TO CEFEPIME, NOT KNOWING THE SOURCE. SHE IS ALLERGIC TO MULTIPLE MEDICINES INCLUDING MANY ANTIBIOTICS. SHE HAD CHILLS YESTERDAY. BC2 ID IS PENDING. I TALKED TO DAUGHTER TO GIVE HER REPORT YESTERDAY. SHE FEELS STABLE TODAY, HAS NO CHILLS. STILL LOW GRADE FEVER. WANTS TO GO HOME BUT STILL NOT READY YET. SHORT OF BREATH TODAY. COUGH TODAY. Physical Examination - Vital Signs Temperature: 98.1 F Blood Pressure: 114/57 Pulse: 64 Respirations: 17 Pulse Ox (%): 98 - Physical Exam General: Oriented x3, Mild distress, Obese HEENT: Atraumatic, PERRLA, EOMI Neck: Supple, JVD not distended Respiratory: Clear to auscultation bilaterally, Normal air movement Cardiovascular: Regular rate/rhythm, Normal S1 S2 Gastrointestinal: Normal bowel sounds, No tenderness Musculoskeletal: No tenderness Integumentary: No rashes Neurological: Normal speech, Normal tone, Normal affect Lymphatics: No axilla or inguinal lymphadenopathy - Studies Microbiology Data (last 24 hrs): 12/25/20 16:20 Blood - Blood Aerobic Blood Culture - Final Escherichia Coli 12/25/20 16:20 Blood - Blood Blood Culture Gram Stain - Final 12/25/20 16:20 Blood - Blood Anaerobic Blood Culture - Final Escherichia Coli 12/25/20 16:20 Blood - Blood Gram Stain - Final 12/25/20 16:27 Blood - Blood Aerobic Blood Culture - Final Escherichia Coli 12/25/20 16:27 Blood - Blood Blood Culture Gram Stain - Final Medications List Reviewed: Yes Assessment And Plan - Current Problems (Diagnosis) (1) Cellulitis of foot Current Visit: Yes Status: Acute Plan: POSSIBLE POST INJURY ROCEPHIN IV SHOULD WORK IF NOT WILL CHANGE TO VANCOMYCIN. THIS HAS IMPROVED SIGNIFICANTLY. SMALL ABSCESS IS NOT BETTER ERYTHEMA IS WORSE MRSA LIKELY. WILL ADD VANCOMYCIN. I AND D TODAY. (2) Diabetic neuropathy Current Visit: Yes Status: Chronic Qualifiers: Diabetes mellitus type: type 2 Diabetes mellitus complication detail: diabetic polyneuropathy Qualified Code(s): E11.42 - Type 2 diabetes mellitus with diabetic polyneuropathy (3) (HFpEF) heart failure with preserved ejection fraction Current Visit: Yes Status: Chronic Plan: [facility] IMPROVED FROM DEHYDRATION TO MILD DEHYDRATION SHE IS SHOWING SIGNS OF CHF ON CXR. GIVE GENTLE DIURETIC. SHE WILL STAY SOMEWHAT DEHYDRATED TO BE ABLE TO BREATH Qualifiers: Heart failure chronicity: chronic Qualified Code(s): I50.32 - Chronic diastolic (congestive) heart failure (4) HTN (hypertension) Current Visit: No Status: Chronic Qualifiers: Hypertension type: primary hypertension Qualified Code(s): I10 - Essential (primary) hypertension (5) Dehydration Current Visit: Yes Status: Acute Plan: SHE IS AT HER BASELINE. ANY LESSER MEDICINES SHE GOES INTO ACUTE FAILURE. (6) Diabetes type 2, uncontrolled Current Visit: Yes Status: Chronic Plan: DIET IS POOR FOR LIFETIME AND SO SHE IS HAVING COMPLICATIONS OF DM. WHENEVER I SEE HER SHE IS EATING DIET THAT IS POOR FOR DIABETES AND IS NOT ABLE TO CHANGE. I SAW HER IN ER AT 7 PM LAST NIGHT. RECORDS WERE NOT READY FOR ME TO DOCUMENT LAST NIGHT. (7) Gram-neg septicemia Current Visit: Yes Status: Acute Plan: BC POS ABX CEFEPIME. ID PENDING. CULTURE PENDING. SOURCE MAY BE URINE. ID PENDING. CONTINUE CEFEPIME FOR NOW. CHANGE RL TO SL SHE HAS HISTORY OF CHF. NO SS FOR NOW. CXR SHOWS MILD PULMONARY EDEMA. IV ROCEPHIN CULTURE SHOWS SENSITIVITY URINE AND BLOOD BOTH HAVE IT. SHE WILL NEED PICC LINE SHE WILL NEED BOTH ROCEPHIN AND VANCOMYCIN. (8) Septic shock Current Visit: Yes Status: Acute Plan: IV BOLUS AND CONT RL. WILL WATCH FOR CHF SHE HAS HFPEF HISTORY.
[2020-12-29] MEDS: FUROSEMIDE 20 MG/ 2ML VIAL IV SCH ×2 (09:00→10:11)
[2020-12-29] MEDS: MAGNESIUM OXIDE 400 MG TAB PO SCH (09:00)
[2020-12-29] MEDS: CEFTRIAXONE 1 GM/NS 50 ML 1 GM/50 ML BAG IV SCH ×3 (09:00→21:20)
[2020-12-29] MEDS: APIXABAN 5 MG TABLET PO SCH ×2 (09:00→21:23)
[2020-12-29] MEDS: VITAMIN D 5,000 UNIT CAP PO SCH (10:09)
[2020-12-29] MEDS: HYDROXYUREA 500 MG CAP PO SCH ×2 (10:09→21:22)
[2020-12-29] MEDS: ASPIRIN 81 MG CHEWABLE TABLET PO SCH (10:09)
[2020-12-29] MEDS: PANTOPRAZOLE 40MG TABLET PO SCH (10:10)
[2020-12-29] MEDS: POTASSIUM CL SA 10 MEQ TAB PO SCH (10:10)
[2020-12-29] MEDS: ATORVASTATIN 40 MG TAB PO SCH (10:10)
[2020-12-29] MEDS: PREGABALIN 75 MG CAP PO SCH (10:10)
[2020-12-29] MEDS: INSULIN -REGULAR HUMAN 50 UNIT/0.5 ML ML SQ SCH ×4 (10:12→21:56)
--- NOTE | 2020-12-29 17:54 | P.CNS ---
Date of Consult: 12/29/20 PC: I was asked to see this 80-year-old female with that has a lesion on the dorsum of her left foot. HPC: Patient apparently was wearing a pair flats last week, her daughter noticed that her toes have gone black and blue from wearing them. She now has an area of redness and erythema on the dorsum of the foot over the area where the strap would have been. Social Hx: Note has been made of the medicines to which she is allergic. Sys R: Patient states is not hurting her that much today. Has gradually increased in size however. O/E: Awake alert HEENT: Negative Chest: Chest movement equal bilaterally Abd: Negative [place]: Over the dorsum of the left foot, patient has a area of redness erythema and swelling. It is approximately 1-1/2 cm in size at this point. Has not come to ahead yet. Tender to the touch. Impression: Patient is developing abscess on the dorsum of the foot. It has not come to ahead yet. Plan: I will continue to follow this patient with you. I anticipate that we will declare itself in the next 24 to 48 hours. It may be possible to drain it at the bedside. We will reevaluated in the a.m.
--- NOTE | 2020-12-29 20:30 | RAD REPORT ---
EXAM DESCRIPTION: RAD - Chest Single View - 12/29/2020 8:15 pm CLINICAL HISTORY: PICC line placement COMPARISON: Chest Single View dated 12/29/2020; Chest Single View dated 12/27/2020; Chest Single Vie w dated 12/25/2020; Chest Pa And Lat (2 Views) dated 12/17/2020 FINDINGS: Lines: A PICC has been placed with tip overlying the SVC Lungs: Diffuse prominence of the pulmonary interstitium. Pleural: No significant pleural effusions or pneumothorax. Cardiac: Cardiomegaly. Bones: No acute fractures. Sternotomy. Other: IMPRESSION: Pulmonary edema which is similar. Right subclavian approach PICC with tip overlying the SVC.
[2020-12-29] MEDS ORDERED: NA CHLORIDE 0.9% 250 ML ONE (21:54)
[2020-12-29] MEDS: INSULIN GLARGINE 100 UNITS/ML SQ SCH (21:55)
[2020-12-30] MEDS: BENZONATATE 100 MG CAP PO PRN ×2 (02:31→20:53)
[2020-12-30] MEDS: VANCOMYCIN 2 GM in NA CHLORIDE 0.9% 500 ML IVPB SCH (03:27)
[2020-12-30 06:14] LABS: Absolute Lymphocytes (CBC) 1.1 K/uL (0.7-4.9); Basophils % 0.8 % (0-1.3); Hematocrit 35.3 % (36.0-45.0); Lymphocytes % 17.4 % (15.3-44.8); MPV 11.2 fL (7.6-11.3); RBC Red Blood Cell Count 3.29 M/uL (3.86-4.86)
[2020-12-30 06:17] LABS: Potassium 4.1 mmol/L (3.5-5.1)
[2020-12-30] MEDS: INSULIN -REGULAR HUMAN 50 UNIT/0.5 ML ML SQ SCH ×4 (07:30→20:52)
[2020-12-30] MEDS: CEFTRIAXONE 1 GM/NS 50 ML 1 GM/50 ML BAG IV SCH ×2 (09:32→20:54)
[2020-12-30] MEDS: HYDROXYUREA 500 MG CAP PO SCH ×2 (09:32→20:52)
[2020-12-30] MEDS: PANTOPRAZOLE 40MG TABLET PO SCH (09:33)
[2020-12-30] MEDS: APIXABAN 5 MG TABLET PO SCH ×2 (09:33→20:53)
[2020-12-30] MEDS: ASPIRIN 81 MG CHEWABLE TABLET PO SCH (09:33)
[2020-12-30] MEDS: FUROSEMIDE 20 MG/ 2ML VIAL IV SCH (09:39)
[2020-12-30] MEDS: VITAMIN D 5,000 UNIT CAP PO SCH (09:39)
[2020-12-30] MEDS: PREGABALIN 75 MG CAP PO SCH (09:39)
[2020-12-30] MEDS: POTASSIUM CL SA 10 MEQ TAB PO SCH (09:39)
[2020-12-30] MEDS: ATORVASTATIN 40 MG TAB PO SCH (09:39)
[2020-12-30] MEDS: MAGNESIUM OXIDE 400 MG TAB PO SCH (09:39)
--- NOTE | 2020-12-30 13:50 | P.PN ---
Subjective Date of Service: 12/30/20 Chief Complaint: ABSCESS, UTI, FAGTIGUE, DYSPNEA Subjective: Improving AMBIKA IS ON ABX SINCE LAST NIGHT AND THIS AM HAS CHILLS. HER BP IS LOW NORMAL. I TOLD RN TO GIVE IV BOLUS. THEY CALLED ME ABOUT 5 ITMES TODAY. HER BC4 ARE POS. WITH GRAM NEG BACILLI. ID PENDING. I CHANGED ABX TO CEFEPIME, NOT KNOWING THE SOURCE. SHE IS ALLERGIC TO MULTIPLE MEDICINES INCLUDING MANY ANTIBIOTICS. SHE HAD CHILLS YESTERDAY. BC2 ID IS PENDING. I TALKED TO DAUGHTER TO GIVE HER REPORT YESTERDAY. SHE FEELS STABLE TODAY, HAS NO CHILLS. STILL LOW GRADE FEVER. WANTS TO GO HOME BUT STILL NOT READY YET. SHORT OF BREATH TODAY. COUGH TODAY. SHE GOT BETTER WITH COUGH ADN DYSPNEA AFTER RESTARTING LASIX. HER FOOT DORUSM PAIN CONTINUES. DR. CHO CAME TO SEE HER. Review of Systems 10-point ROS is otherwise unremarkable General: Weakness, Malaise Physical Examination - Vital Signs Temperature: 98.6 F Blood Pressure: 135/51 Pulse: 65 Respirations: 16 Pulse Ox (%): 94 - Physical Exam General: Oriented x3, Acute distress, Mild distress, Obese HEENT: Atraumatic, PERRLA, EOMI Neck: Supple, JVD not distended Respiratory: Clear to auscultation bilaterally, Normal air movement Cardiovascular: Regular rate/rhythm, Normal S1 S2 Gastrointestinal: Normal bowel sounds, No tenderness Musculoskeletal: No tenderness Integumentary: No rashes, Tenderness/swelling (L FOOT ANTERIOR ABSCESS IS NOT BETTER. I CALLED DR. CHO AND HE WILL DO BESIDE I AND D.), Erythema Neurological: Normal speech, Normal tone, Normal affect Lymphatics: No axilla or inguinal lymphadenopathy - Studies Medications List Reviewed: Yes Assessment And Plan - Current Problems (Diagnosis) (1) Cellulitis of foot Current Visit: Yes Status: Acute Plan: POSSIBLE POST INJURY ROCEPHIN IV SHOULD WORK IF NOT WILL CHANGE TO VANCOMYCIN. THIS HAS IMPROVED SIGNIFICANTLY. SMALL ABSCESS IS NOT BETTER ERYTHEMA IS WORSE MRSA LIKELY. WILL ADD VANCOMYCIN. I AND D TODAY. (2) Diabetic neuropathy Current Visit: Yes Status: Chronic Qualifiers: Diabetes mellitus type: type 2 Diabetes mellitus complication detail: diabetic polyneuropathy Qualified Code(s): E11.42 - Type 2 diabetes mellitus with diabetic polyneuropathy (3) (HFpEF) heart failure with preserved ejection fraction Current Visit: Yes Status: Chronic Plan: [facility] IMPROVED FROM DEHYDRATION TO MILD DEHYDRATION SHE IS SHOWING SIGNS OF CHF ON CXR. GIVE GENTLE DIURETIC. SHE WILL STAY SOMEWHAT DEHYDRATED TO BE ABLE TO BREATH Qualifiers: Heart failure chronicity: chronic Qualified Code(s): I50.32 - Chronic diastolic (congestive) heart failure (4) HTN (hypertension) Current Visit: No Status: Chronic Qualifiers: Hypertension type: primary hypertension Qualified Code(s): I10 - Essential (primary) hypertension (5) Dehydration Current Visit: Yes Status: Acute Plan: SHE IS AT HER BASELINE. ANY LESSER MEDICINES SHE GOES INTO ACUTE FAILURE. (6) Diabetes type 2, uncontrolled Current Visit: Yes Status: Chronic Plan: DIET IS POOR FOR LIFETIME AND SO SHE IS HAVING COMPLICATIONS OF DM. WHENEVER I SEE HER SHE IS EATING DIET THAT IS POOR FOR DIABETES AND IS NOT ABLE TO CHANGE. I SAW HER IN ER AT 7 PM LAST NIGHT. RECORDS WERE NOT READY FOR ME TO DOCUMENT LAST NIGHT. (7) Gram-neg septicemia Current Visit: Yes Status: Acute Plan: BC POS ABX CEFEPIME. ID PENDING. CULTURE PENDING. SOURCE MAY BE URINE. ID PENDING. CONTINUE CEFEPIME FOR NOW. CHANGE RL TO SL SHE HAS HISTORY OF CHF. NO SS FOR NOW. CXR SHOWS MILD PULMONARY EDEMA. IV ROCEPHIN CULTURE SHOWS SENSITIVITY URINE AND BLOOD BOTH HAVE IT. SHE WILL NEED PICC LINE SHE WILL NEED BOTH ROCEPHIN AND VANCOMYCIN. (8) Septic shock Current Visit: Yes Status: Acute Plan: IV BOLUS AND CONT RL. WILL WATCH FOR CHF SHE HAS HFPEF HISTORY. (9) Bacterial urinary tract infection Current Visit: Yes Status: Acute Plan: E COLI SEPSIS BOTH URINE AND BLOOD. IV ABX FOR 14 DAYS.
[2020-12-30] MEDS: ACETAMINOPHEN 500 MG TAB PO PRN (16:55)
[2020-12-30] MEDS ORDERED: LIDOCAINE 1% 20 ML MDV ONE (17:34)
--- NOTE | 2020-12-30 18:47 | P.PN ---
Date of Service: 12/30/20 S: Patient still complaining of pain on the dorsum of her left foot O: Less erythema today, no drainage seen. Remains tender to the touch however. A: Level infected hematoma P: I will do an incision and drainage of this area at the bedside. The risks of this procedure were explained to the patient and her daughter. They understand and want to proceed. This informed obtained. Patient gave verbal consent, as she did not want to take her hands out from the covers to hold a pen.
--- NOTE | 2020-12-30 18:49 | P.OP ---
Date of Service: 12/30/20 Preprocedure diagnosis: Hematoma of the dorsum of the right foot Post procedure diagnosis: The same Procedure performed: Incision, drainage, and sharp debridement of hematoma on the dorsum of the right foot Findings and Operative Technique At the bedside the patient was positioned on the table. The area was prepped with a Betadine solution, and infiltrated with 1% lidocaine. Using a cutting surgical 11 blade an incision was made through the skin. We encountered this hematoma in the subcutaneous tissue. This was gently opened with a hemostat. A sterile dressing was then applied. At the end of the procedure she was stable. Estimated blood loss less than 10 cc
[2020-12-30] MEDS: INSULIN GLARGINE 100 UNITS/ML SQ SCH (20:52)
[2020-12-30] MEDS: TRAMADOL HCL 50 MG TAB PO PRN (20:53)
[2020-12-31] MEDS: VANCOMYCIN 2 GM in NA CHLORIDE 0.9% 500 ML IVPB SCH (03:20)
[2020-12-31] MEDS: INSULIN -REGULAR HUMAN 50 UNIT/0.5 ML ML SQ SCH ×4 (07:30→21:00)
[2020-12-31] MEDS: PANTOPRAZOLE 40MG TABLET PO SCH (07:30)
[2020-12-31] MEDS: PREGABALIN 75 MG CAP PO SCH (09:00)
[2020-12-31] MEDS: MAGNESIUM OXIDE 400 MG TAB PO SCH (09:00)
[2020-12-31] MEDS: APIXABAN 5 MG TABLET PO SCH ×2 (09:00→21:32)
[2020-12-31] MEDS: FUROSEMIDE 20 MG/ 2ML VIAL IV SCH (09:00)
[2020-12-31] MEDS: HYDROXYUREA 500 MG CAP PO SCH ×2 (09:00→21:32)
[2020-12-31] MEDS: VITAMIN D 5,000 UNIT CAP PO SCH (09:00)
[2020-12-31] MEDS: ATORVASTATIN 40 MG TAB PO SCH (09:00)
[2020-12-31] MEDS: POTASSIUM CL SA 10 MEQ TAB PO SCH (09:00)
[2020-12-31] MEDS: CEFTRIAXONE 1 GM/NS 50 ML 1 GM/50 ML BAG IV SCH ×2 (09:00→21:32)
[2020-12-31] MEDS: ASPIRIN 81 MG CHEWABLE TABLET PO SCH (09:00)
--- NOTE | 2020-12-31 13:27 | P.OP ---
Preoperative diagnosis: Abscess lateral aspect of left foot with retained foreign body Postoperative diagnosis: The same Primary procedure: Exploration of the wound lateral aspect left foot Secondary procedure: Drainage of abscess lateral aspect of left foot Other procedure(s): Movable of foreign object from the lateral aspect of the left foot Anesthesia: General Estimated blood loss: Less than 10 cc Specimen: Sent for identification Findings: 1 staple Operative Technique: The patient brought the operating room and placed supine on the table. After induction of adequate general anesthesia, attention was turned towards the area of the left foot. It was prepped with a Betadine solution, and draped in usual aseptic manner. An 11 blade was used to sharply excise the overlying blistered area. The underlying tissue was now exposed. The we could see there was a necrotic center that was again debrided back to viable tissue using a cutting 11 blade, and a surgical curette. At the base of this there was an opening that extended further into the plantar surface. Gentle probing with this and a hemostat we encountered a metallic click sensation. Gentle pressure on this allowed us to see the leg of the staple emerging from the sole of the foot. This opening was now identified and we were able to remove the staple from the wound. It was sent for identification. Attention was turned back towards the abscess cavity and surrounding margins. This was debrided back to clean viable tissue using a cutting 11 blade. Electrocautery was now ensured using electrocautery. The wound being clean and dry, sterile dressing was applied. At the end of the procedure she was stable and was sent to the recovery room. Needle sponge instrument count were correct. No drains were placed. Complications: None Transferred to: Recovery Room Condition: Good
[2020-12-31] MEDS: TRAMADOL HCL 50 MG TAB PO PRN ×2 (17:25→22:30)
[2020-12-31] MEDS ORDERED: INSULIN GLARGINE 100 UNITS/ML SQ SCH (21:00)
[2020-12-31] MEDS: BENZONATATE 100 MG CAP PO PRN (21:31)
[2021-01-01] MEDS: VANCOMYCIN 2 GM in NA CHLORIDE 0.9% 500 ML IVPB SCH (03:27)
[2021-01-01] MEDS: INSULIN -REGULAR HUMAN 50 UNIT/0.5 ML ML SQ SCH ×3 (07:30→16:30)
[2021-01-01] MEDS: CEFTRIAXONE 1 GM/NS 50 ML 1 GM/50 ML BAG IV SCH (08:31)
[2021-01-01] MEDS: FUROSEMIDE 20 MG/ 2ML VIAL IV SCH (08:32)
[2021-01-01] MEDS: VITAMIN D 5,000 UNIT CAP PO SCH (08:32)
[2021-01-01] MEDS: HYDROXYUREA 500 MG CAP PO SCH (08:32)
[2021-01-01] MEDS: PANTOPRAZOLE 40MG TABLET PO SCH (08:32)
[2021-01-01] MEDS: ASPIRIN 81 MG CHEWABLE TABLET PO SCH (08:33)
[2021-01-01] MEDS: APIXABAN 5 MG TABLET PO SCH (08:33)
[2021-01-01] MEDS: POTASSIUM CL SA 10 MEQ TAB PO SCH (08:33)
[2021-01-01] MEDS: PREGABALIN 75 MG CAP PO SCH (08:33)
[2021-01-01] MEDS: ATORVASTATIN 40 MG TAB PO SCH (08:33)
[2021-01-01] MEDS: MAGNESIUM OXIDE 400 MG TAB PO SCH (08:34)
[2021-01-01 11:49] VITALS: O2SAT 93
[2021-01-01 12:43] VITALS: BP 106/70; TEMP 97.4
--- NOTE | 2021-01-01 12:49 | P.DS ---
Admission Date: 12/25/20 Discharge Date: 01/01/21 Disposition: ROUTINE DISCHARGE Discharge Condition: FAIR Reason for Admission: ABSCESS, UTI, FAGTIGUE, DYSPNEA - Problems (1) Cellulitis of foot Current Visit: Yes Status: Acute (2) Diabetic neuropathy Current Visit: Yes Status: Chronic Qualifiers: Diabetes mellitus type: type 2 Diabetes mellitus complication detail: diabetic polyneuropathy Qualified Code(s): E11.42 - Type 2 diabetes mellitus with diabetic polyneuropathy (3) (HFpEF) heart failure with preserved ejection fraction Current Visit: Yes Status: Chronic Qualifiers: Heart failure chronicity: chronic Qualified Code(s): I50.32 - Chronic diastolic (congestive) heart failure (4) HTN (hypertension) Current Visit: No Status: Chronic Qualifiers: Hypertension type: primary hypertension Qualified Code(s): I10 - Essential (primary) hypertension (5) Dehydration Current Visit: Yes Status: Acute (6) Diabetes type 2, uncontrolled Current Visit: Yes Status: Chronic (7) Gram-neg septicemia Current Visit: Yes Status: Acute (8) Septic shock Current Visit: Yes Status: Acute (9) Bacterial urinary tract infection Current Visit: Yes Status: Acute Brief History of Present Illness: AMBIKA IS WELL KNOWN TO ME. SHE HAS MULTIPLE MEDICAL ISSUES INCLUDING DIABETES, HFPEF, HTN, DJD. NEUROPATHY, OBESITY, ESSENTIAL THROMBOCYTOSIS ETC. SHE COMES TO [facility] WITH PAIN IN FOOT AND FEVER FOR TWO DAYS. HER GLUCOSE WENT HIGH TO 500. FAMILY DENIES THAT SHE FELL. SHE IS WC BOUND. AMANDA HAD SEVERELY PAINFUL INFECTED HEMATOMA THAT HAD TO BE DISSECTED. DR. GOVEA TOOK CARE OF THIS. SHE HAD FEVER AND WAS FOUND TO HAVE GRAM NEGATIVE SEPTICEMIA FROM UTI. SHE WILL GO HOME ON TWO ABX AT HOME. Vital Signs/Physical Exam: Temp Pulse Resp BP Pulse Ox 97.4 F 62 17 106/70 94 01/01/21 12:43 01/01/21 12:43 01/01/21 12:43 01/01/21 12:43 01/01/21 12:43 Laboratory Data at Discharge: WBC 6.40 K/uL (4.3-10.9) 12/30/20 05:35 Hgb 11.8 g/dL (12.0-15.0) L 12/30/20 05:35 Hct 35.3 % (36.0-45.0) L 12/30/20 05:35 Plt Count 242 K/uL (152-406) 12/30/20 05:35 PT 19.5 SECONDS (9.5-12.5) H 12/25/20 15:38 INR 1.69 12/25/20 15:38 APTT 32.4 SECONDS (24.3-36.9) 12/25/20 15:38 Sodium 142 mmol/L (136-145) 12/30/20 05:35 Potassium 4.1 mmol/L (3.5-5.1) 12/30/20 05:35 BUN 16 mg/dL (7-18) 12/30/20 05:35 Creatinine 0.75 mg/dL (0.55-1.3) 12/30/20 05:35 Glucose 124 mg/dL (74-106) H 12/30/20 05:35 Total Bilirubin 0.7 mg/dL (0.2-1.0) 12/25/20 15:38 AST 54 U/L (15-37) H 12/25/20 15:38 ALT 36 U/L (12-78) 12/25/20 15:38 Alkaline Phosphatase 92 U/L (45-117) 12/25/20 15:38 Troponin I 3.25 ng/mL (0.0-0.045) H* 12/25/20 19:56 Amylase 23 U/L (25-115) L 12/25/20 15:38 Lipase 50 U/L (73-393) L 12/25/20 15:38 Home Medications: Aspirin 81 mg PO DAILY 05/08/19 Magnesium Oxide [Mag 0X*] 400 mg PO DAILY 05/08/19 Pregabalin 75 mg PO DAILY 05/08/19 Hydroxyurea [Hydrea*] 500 mg PO BID 05/29/20 Pantoprazole [Protonix Tab*] 40 mg PO DAILY 05/29/20 Apixaban [Eliquis] 5 mg PO BID 09/04/20 Atorvastatin Calcium 40 mg PO DAILY 12/25/20 Furosemide 40 mg PO DAILY 12/25/20 Spironolactone 25 mg PO DAILY 12/25/20 Vitamin D3 125 mcg PO DAILY 12/25/20 hydrOXYzine pamoate [Hydroxyzine Pamoate] 25 mg PO BID PRN 12/25/20 Cholecalciferol (Vitamin D3) [Vitamin D 5,000 IU Cap*] 5,000 unit PO DAILY cap 01/01/21 traMADol HCL [Ultram*] 50 mg PO Q6H PRN tab 01/01/21 Followup: NONE,NONE [Primary Care Provider] -
== END 2021-01-01 17:47 | disposition home health service (06) | DRG 853 ==
LOC: ER 13:20 → ERHOLD 21:10 → 2ND 22:13
PROVIDERS: ADMIT Internal Medicine; ATTEND Internal Medicine
PROC: 02HV33Z Insertion of Infusion Device into Superior Vena Cava, Percutaneous Approach (ICD-10-PCS; 2020-12-29)
PROC: 0JBQ0ZZ Excision of Right Foot Subcutaneous Tissue and Fascia, Open Approach (ICD-10-PCS; principal; 2020-12-30)
PROC: 0J9R0ZZ Drainage of Left Foot Subcutaneous Tissue and Fascia, Open Approach (ICD-10-PCS; 2020-12-31)
DX: A41.51 Sepsis due to Escherichia coli [E. coli] (principal); R65.21 Severe sepsis with septic shock; L03.116 Cellulitis of left lower limb; Z68.42 Body mass index [BMI] 45.0-49.9, adult; I50.32 Chronic diastolic (congestive) heart failure; N39.0 Urinary tract infection, site not specified; L02.612 Cutaneous abscess of left foot; Z88.1 Allergy status to other antibiotic agents; Z88.5 Allergy status to narcotic agent; Z88.8 Allergy status to other drugs, medicaments and biological substances; E78.5 Hyperlipidemia, unspecified; I25.2 Old myocardial infarction; I25.10 Atherosclerotic heart disease of native coronary artery without angina pectoris; Z86.73 Personal history of transient ischemic attack (TIA), and cerebral infarction without residual deficits; Z20.822 Contact with and (suspected) exposure to COVID-19; Z99.3 Dependence on wheelchair; Z79.82 Long term (current) use of aspirin; Z79.01 Long term (current) use of anticoagulants; Z79.899 Other long term (current) drug therapy; Z90.710 Acquired absence of both cervix and uterus; E66.9 Obesity, unspecified; E11.42 Type 2 diabetes mellitus with diabetic polyneuropathy; I11.0 Hypertensive heart disease with heart failure; E86.0 Dehydration; I48.0 Paroxysmal atrial fibrillation; S90.31XA Contusion of right foot, initial encounter
CPT/HCPCS: 36415; 36569; 71045; 80048; 80076; 80202; 81001; 82150; 82550; 82553; 82947; 83605; 83690; 84145; 84484; 85025; 85610; 85730; 86140; 87040; 87077; 87086; 87088; 87186; 87205; 93005; 93306; 94640; 96361; 96365; 96366; 99285; J0692; J0696; J1650; J1815; J1940; J3370; J7030; J7040; J7050; J7120; U0003

== ENCOUNTER 2021-01-05 23:30 | Emergency (ER) | payer OTHER ==
--- NOTE | 2021-01-05 23:51 | EDPHYS ---
Physician Documentation [facility] Name: Arminda Rodriguez Age: 80 yrs Sex: Female : 1940 Arrival Date: 01/05/2021 Time: 23:36 Bed 20 Private MD: ED Physician Albert Brewster HPI: 01/05 23:49 This 80 yrs old Female presents to ER via Unassigned with complaints of PICC kb line not working. 23:49 Daughter tried to give dose of rocephin through picc tonight and was unable to push kb anything through either port. Called the home health nurse customer solutions representative and was told to come to the ER to get it working. Onset: The symptoms/episode began/occurred today. The patient has not experienced similar symptoms in the past. The patient has been recently seen by a physician:. Historical: - Allergies: 23:55 Amaryl; df1 23:55 Amoxicillin; df1 23:55 ANGIOTENSIN RECEPTOR ANTAGONIST; df1 23:55 Augmentin; df1 23:55 Byetta; df1 23:55 Demerol; df1 23:55 Hydrocodone-Acetaminophen; df1 23:55 Januvia; df1 23:55 Lantus; df1 23:55 metformin; df1 23:55 Niaspan; df1 23:55 QUINOLONES; df1 23:55 Xtkxvwq-Uuz-Rhf Reductase Inhibitors; df1 23:55 Tetanus Immune Globulin; df1 23:55 Zetia; df1 - PMHx: 23:55 CAD; CVA; Diabetes - NIDDM; Hyperlipidemia; Hypertension; Myocardial infarction; df1 VENTRAL HERNIA; Angina pectoris; - Immunization history:: Adult Immunizations up to date. - Social history:: Smoking status: Patient denies any tobacco usage or history of. ROS: 23:49 Constitutional: Negative for fever, chills, and weight loss. kb 23:49 All other systems are negative. Exam: 23:49 Constitutional: This is a well developed, well nourished patient who is awake, alert, kb and in no acute distress. Head/Face: Normocephalic, atraumatic. ENT: Moist Mucous membranes Respiratory: Respirations even and unlabored. No increased work of breathing, no retractions or nasal flaring. Skin: Warm, dry with normal turgor. Normal color. Neuro: Awake and alert, GCS 15, oriented to person, place, time, and situation. Moves all extremities. Normal gait. Psych: Awake, alert, with orientation to person, place and time. Behavior, mood, and affect are within normal limits. 23:49 Musculoskeletal/extremity: Extremities: PICC line in RUE. Vital Signs: 23:53 BP 129 / 72; Pulse 55; Resp 18; Temp 97.8(O); Pulse Ox 97% on R/A; Weight 117.93 kg; df1 Height 5 ft. 4 in. (162.56 cm); Pain 0/10; 23:53 Body Mass Index 44.63 (117.93 kg, 162.56 cm) df1 MDM: 23:38 Patient medically screened. kb 23:48 Data reviewed: vital signs, nurses notes. Data interpreted: Pulse oximetry: on room air kb is 100 %. Interpretation: normal. Counseling: I had a detailed discussion with the patient and/or guardian regarding: the historical points, exam findings, and any diagnostic results supporting the discharge/admit diagnosis, the need for outpatient follow up, a family practitioner, to return to the emergency department if symptoms worsen or persist or if there are any questions or concerns that arise at home. 23:48 ED course: I was able to flush both ports of PICC line without resistance. Daughter kb requested we give the rocephin that they were unable to give at home prior to discharge. Administered Medications: 01/06 00:00 Drug: Rocephin (cefTRIAXone) 1 grams Route: IV; Rate: calculated rate; Site: [facility]; df1 Disposition Summary: 01/05/21 23:51 Discharge Ordered Location: Home kb Condition: Stable kb Diagnosis - Person with feared health complaint in whom no diagnosis is made kb Followup: kb - With: Emergency Department - When: As needed - Reason: Worsening of condition Followup: kb - With: Private Physician - When: 2 - 3 days - Reason: Recheck today's complaints, Continuance of care, Re-evaluation by your physician Discharge Instructions: - Discharge Summary Sheet kb - PICC Home Care Guide kb Forms: - Medication Reconciliation Form kb - Thank You Letter kb - Antibiotic Education kb - Prescription Opioid Use kb Addendum: 01/07/2021 06:41 Co-signature as Attending Physician, Albert Brewster MD I agree with the assessment and s p3 plan of care. Signatures: Charley Hebert, DAILY SALES AUDIT CLERK-C DAILY SALES AUDIT CLERK-Ckb Albert Brewster MD MD sp3 Gladys Moseley df1
--- NOTE | 2021-01-06 00:23 | ER ---
Nurse's Notes [facility] Name: Arminda Rodriguez Age: 80 yrs Sex: Female : 1940 Arrival Date: 01/05/2021 Time: 23:36 Bed 20 Private MD: Diagnosis: Person with feared health complaint in whom no diagnosis is made Presentation: 01/05 23:53 Chief complaint: Patient states: nonworking PICC line. Coronavirus screen: Vaccine df1 status: Patient reports receiving the 2nd dose of the covid vaccine. Client denies travel out of the [place] in the last 14 days. Ebola Screen: Patient negative for fever greater than or equal to 101.5 degrees Fahrenheit, and additional compatible Ebola Virus Disease symptoms Patient denies exposure to infectious person. Patient denies travel to an Ebola-affected area in the 21 days before illness onset. Initial Sepsis Screen: Does the patient meet any 2 criteria? No. Patient's initial sepsis screen is negative. Does the patient have a suspected source of infection? No. Patient's initial sepsis screen is negative. Risk Assessment: Do you want to hurt yourself or someone else? Patient reports no desire to harm self or others. Onset of symptoms was December 2020. 23:53 Method Of Arrival: Wheelchair df1 23:53 Acuity: GORDO 3 df1 01/06 00:18 Note Pt educated for PICC line use/care. Caps changed and orange caps in place. Pt and df1 daughter states understanding for PICC line use. Pt given IV antibiotic that was missed at 2200. Triage Assessment: 01/05 23:57 General: Appears in no apparent distress. Behavior is calm, cooperative. Pain: Denies df1 pain. Historical: - Allergies: 23:55 Amaryl; df1 23:55 Amoxicillin; df1 23:55 ANGIOTENSIN RECEPTOR ANTAGONIST; df1 23:55 Augmentin; df1 23:55 Byetta; df1 23:55 Demerol; df1 23:55 Hydrocodone-Acetaminophen; df1 23:55 Januvia; df1 23:55 Lantus; df1 23:55 metformin; df1 23:55 Niaspan; df1 23:55 QUINOLONES; df1 23:55 Qnryjku-Pzn-Kgg Reductase Inhibitors; df1 23:55 Tetanus Immune Globulin; df1 23:55 Zetia; df1 - PMHx: 23:55 CAD; CVA; Diabetes - NIDDM; Hyperlipidemia; Hypertension; Myocardial infarction; df1 VENTRAL HERNIA; Angina pectoris; - Immunization history:: Adult Immunizations up to date. - Social history:: Smoking status: Patient denies any tobacco usage or history of. Screenin:56 Abuse screen: Denies threats or abuse. Nutritional screening: No deficits noted. df1 Tuberculosis screening: No symptoms or risk factors identified. Fall Risk Fall in past 12 months (25 points). Secondary diagnosis (15 points) impaired mobility, IV access (20 points). Ambulatory Aid- Crutches/Cane/Walker (15 pts). Gait- Weak (10 pts.). Mental Status- Oriented to own ability (0 pts). Vital Signs: 23:53 BP 129 / 72; Pulse 55; Resp 18; Temp 97.8(O); Pulse Ox 97% on R/A; Weight 117.93 kg; df1 Height 5 ft. 4 in. (162.56 cm); Pain 0/10; 23:53 Body Mass Index 44.63 (117.93 kg, 162.56 cm) df1 ED Course: 23:36 Patient arrived in ED. bp1 23:37 Charley Hebert FNP-C is [facility]. kb 23:37 Albert Brewster MD is Attending Physician. kb 23:53 Gladys Moseley is Primary Nurse. df1 23:55 Triage completed. df1 23:56 Arm band placed on right wrist. df1 23:57 Patient has correct armband on for positive identification. Bed in low position. Call df1 light in reach. Adult w/ patient. 23:57 No provider procedures requiring assistance completed. Patient did not have IV access df1 during this emergency room visit. Administered Medications: 01/06 00:00 Drug: Rocephin (cefTRIAXone) 1 grams Route: IV; Rate: calculated rate; Site: [facility]; df1 Outcome: 01/05 23:51 Discharge ordered by . kb 01/06 00:21 Condition: stable df1 Discharge instructions given to patient, family, Instructed on discharge instructions, follow up and referral plans. Demonstrated understanding of instructions, follow-up care. 00:22 Discharged to home via wheelchair. df1 00:22 Patient left the ED. df1 Signatures: Charley Hebert, NURSE PARALEGAL-C NURSE PARALEGAL-Ckb Lis Mccabe Dawn df1
[2021-01-06 00:26] VITALS: BP 129/72; TEMP 97.8; O2SAT 97
[2021-01-06] MEDS ORDERED: CEFTRIAXONE 1000 MG/VIAL ONE (00:58)
== END 2021-01-06 00:22 | disposition home or self-care (01) ==
LOC: ER 23:30
DX: Z71.1 Person with feared health complaint in whom no diagnosis is made (principal); I10 Essential (primary) hypertension; E11.9 Type 2 diabetes mellitus without complications; I25.2 Old myocardial infarction; Z88.1 Allergy status to other antibiotic agents; Z88.5 Allergy status to narcotic agent; Z88.7 Allergy status to serum and vaccine; Z88.8 Allergy status to other drugs, medicaments and biological substances
CPT/HCPCS: 96374; 99283

== ENCOUNTER 2021-01-06 13:19 | Emergency (ER) | payer OTHER ==
--- NOTE | 2021-01-06 15:09 | RAD REPORT ---
EXAM DESCRIPTION: US - Extremity Venous Uni Ltd - 01/06/2021 2:42 pm CLINICAL HISTORY: Right arm pain and swelling COMPARISON: None. TECHNIQUE: Real-time sonographic evaluation of the right upper extremity deep venous systems was per formed. FINDINGS: Normal compressibility, flow augmentation, phasic flow and spontaneous flow are identified in the right upper extremity deep venous system. No intraluminal filling defects seen. Internal jugu lar and subclavian veins are normal as well. PICC line is in place with no thrombus identifiable along the course of the tubing IMPRESSION: No DVT in the right upper extremity.
--- NOTE | 2021-01-06 16:28 | ER ---
Nurse's Notes [facility] Name: Arminda Rodriguez Age: 80 yrs Sex: Female : 1940 Arrival Date: 01/06/2021 Time: 13:21 Bed 19 Private MD: Frederick Gomez V Diagnosis: PIC line malfunction Presentation: 01/06 13:29 Chief complaint: "Her PICC line isn't working. One is totally stopped up. We were here ss 13 hours ago for the same thing.". Coronavirus screen: Client denies travel out of the [place] in the last 14 days. Ebola Screen: Patient denies exposure to infectious person. Patient denies travel to an Ebola-affected area in the 21 days before illness onset. Initial Sepsis Screen: Does the patient meet any 2 criteria? No. Patient's initial sepsis screen is negative. Does the patient have a suspected source of infection? No. Patient's initial sepsis screen is negative. Risk Assessment: Do you want to hurt yourself or someone else? Patient reports no desire to harm self or others. Onset of symptoms was January 05, 2021. 13:29 Method Of Arrival: Wheelchair ss 13:29 Acuity: GORDO 3 ss Triage Assessment: 13:50 General: Appears in no apparent distress. well groomed, well developed, Behavior is sl2 calm, cooperative, appropriate for age. Historical: - Allergies: 13:30 Amaryl; ss 13:30 Amoxicillin; ss 13:30 ANGIOTENSIN RECEPTOR ANTAGONIST; ss 13:30 Augmentin; ss 13:30 Byetta; ss 13:30 Demerol; ss 13:30 Hydrocodone-Acetaminophen; ss 13:30 Januvia; ss 13:30 Lantus; ss 13:30 metformin; ss 13:30 Niaspan; ss 13:30 QUINOLONES; ss 13:30 Uzusahy-Ity-Fek Reductase Inhibitors; ss 13:30 Tetanus Immune Globulin; ss 13:30 Zetia; ss - PMHx: 13:30 angina pectoris; CAD; Diabetes - NIDDM; Hyperlipidemia; Hypertension; Myocardial ss infarction; VENTRAL HERNIA; CVA; - Immunization history:: Client reports receiving the 2nd dose of the Covid vaccine. - Social history:: Smoking status: Patient denies any tobacco usage or history of. Screenin:50 Abuse screen: Denies threats or abuse. Nutritional screening: No deficits noted. sl2 Tuberculosis screening: No symptoms or risk factors identified. Never had TB. Possible symptoms: None Risk factors: None. Fall Risk None identified. Assessment: 13:50 General: Appears in no apparent distress. comfortable, obese, well groomed, well sl2 developed, Behavior is calm, cooperative, Reports Right upper arm PICC line not flushing. 13:50 Pain: Denies pain. Neuro: No deficits noted. Cardiovascular: No deficits noted. sl2 Respiratory: No deficits noted. GI: No deficits noted. : No deficits noted. EENT: No deficits noted. EENT: No deficits noted. Derm: Reports Patient reports that her PICC line is not working. Musculoskeletal: No deficits noted. 14:08 Reassessment: Venous ultrasound in progress at bedside. sl2 14:35 Reassessment: Double Lumen right upper arm PICC line was flushed with 10cc of normal sl2 saline to each lumen, lines are both patent, flushes easily with good blood return. PICC line is positional Patient needs to abduct arm with thumb facing the ceiling for optimal PICC line patency. Vital Signs: 13:30 Pulse 58; Resp 17; Temp 97.5(TE); Pulse Ox 92% ; Weight 116.12 kg; Height 5 ft. 4 in. ss (162.56 cm); Pain 0/10; 13:34 BP 108 / 46; ss 14:00 BP 112 / 65; Pulse 64; Resp 18; Temp 98.4; Pulse Ox 99% ; sl2 16:00 BP 116 / 68; Pulse 62; Resp 18; Temp 98.1; Pulse Ox 99% on R/A; sl2 13:30 Body Mass Index 43.94 (116.12 kg, 162.56 cm) ED Course: 13:21 Patient arrived in ED. as 13:24 Frederick Gomez MD is Private Physician. as 13:30 Triage completed. ss 13:30 Arm band placed on right wrist. ss 13:38 Steve Reese MD is Attending Physician. kdr 13:50 Patient has correct armband on for positive identification. Bed in low position. Side sl2 rails up X2. Adult w/ patient. 14:07 Rachel Tamez, LEILA is Primary Nurse. sl2 14:42 US Extremity Venous Unilateral Ltd In Process Unspecified. EDMS 16:26 Frederick Gomez MD is Referral Physician. kdr 16:48 No provider procedures requiring assistance completed. PICC line in place to right sl2 upper arm - patient dc'd home with PICC line for home antibiotic therapy. Administered Medications: 15:50 Drug: Rocephin - (cefTRIAXone) 1 grams {Note: Right upper arm PICC line .} Route: IVPB; sl2 Infused Over: 30 mins; Site: Other; 16:20 Follow up: IV Status: Completed infusion; IV Intake: 50ml sl2 16:21 Follow up: Response: No adverse reaction sl2 Intake: 16:20 IV: 50ml; Total: 50ml. sl2 Outcome: 16:27 Discharge ordered by . kdr 16:56 Discharged to home via wheelchair, with family. sl2 16:56 Condition: stable 16:56 Discharge instructions given to patient, Instructed on discharge instructions, follow up and referral plans. PICC line care Demonstrated understanding of instructions, follow-up care. 16:57 Patient left the ED. sl2 Signatures: Dispatcher [employer] EDKS Steve Reese MD MD kdr Mara Darling Shelby, RN RN Rachel Tamez RN RN sl2 Corrections: (The following items were deleted from the chart) 16:53 13:50 General: Appears sl2 sl2
--- NOTE | 2021-01-06 16:29 | EDPHYS ---
Physician Documentation [facility] Name: Arminda Rodriguez Age: 80 yrs Sex: Female : 1940 Arrival Date: 01/06/2021 Time: 13:21 Bed 19 Private MD: Frederick Gomez V ED Physician Steev Reese HPI: 01/06 16:37 This 80 yrs old Female presents to ER via Wheelchair with complaints of picc kdr line clogged. 16:37 Complaint: PICC line malfunction. HPI: Approximately 2 weeks ago, the patient had a kdr PICC line placed in the right AC/upper arm. Over the last 2 days she has had difficulty with infusion of her medications. During this time, 1 or both ports have been difficult to use. They have either been totally occluded or slow on infusion. The patient missed her a.m. Rocephin infusion this morning. Home health nurse had attempted to remedy the situation at home but had not been successful.. Onset: The symptoms/episode began/occurred Last few days. The patient has not recently seen a physician. Historical: - Allergies: 13:30 Amaryl; ss 13:30 Amoxicillin; ss 13:30 ANGIOTENSIN RECEPTOR ANTAGONIST; ss 13:30 Augmentin; ss 13:30 Byetta; ss 13:30 Demerol; ss 13:30 Hydrocodone-Acetaminophen; ss 13:30 Januvia; ss 13:30 Lantus; ss 13:30 metformin; ss 13:30 Niaspan; ss 13:30 QUINOLONES; ss 13:30 Pjibmxv-Hfg-Iui Reductase Inhibitors; ss 13:30 Tetanus Immune Globulin; ss 13:30 Zetia; ss - PMHx: 13:30 angina pectoris; CAD; Diabetes - NIDDM; Hyperlipidemia; Hypertension; Myocardial ss infarction; VENTRAL HERNIA; CVA; - Immunization history:: Client reports receiving the 2nd dose of the Covid vaccine. - Social history:: Smoking status: Patient denies any tobacco usage or history of. ROS: 16:37 Constitutional: Negative for fever, chills, and weight loss. kdr 16:37 MS/extremity: Positive for There is a PICC line located in the right pre-AC area. It appears to be well dressed there has been a small amount of bloody fluid on the dressing but otherwise it appears to be intact and without external reason for poor function. 16:37 All other systems are negative. Exam: 16:37 Constitutional: This is a well developed, well nourished patient who is awake, alert, kdr and in no acute distress. Head/Face: Normocephalic, atraumatic. 16:37 Musculoskeletal/extremity: As described elsewhere, the PICC line in the right AC appears to be intact and externally appropriately fixated and dressed.. Vital Signs: 13:30 Pulse 58; Resp 17; Temp 97.5(TE); Pulse Ox 92% ; Weight 116.12 kg; Height 5 ft. 4 in. ss (162.56 cm); Pain 0/10; 13:34 BP 108 / 46; ss 14:00 BP 112 / 65; Pulse 64; Resp 18; Temp 98.4; Pulse Ox 99% ; sl2 16:00 BP 116 / 68; Pulse 62; Resp 18; Temp 98.1; Pulse Ox 99% on R/A; sl2 13:30 Body Mass Index 43.94 (116.12 kg, 162.56 cm) Procedures: 16:37 Performed PICC line evaluation. The nursing staff evaluate the PICC line and felt that kdr both ports were functioning properly. They engaged the daughter who is with the patient in the room to have her flush the lines to make sure that she was comfortable with the current status of the PICC line. She reportedly had no difficulty flushing the lines. Since the patient had missed her morning dose of Rocephin, the nursing staff confused her evening dose while in the ED.. MDM: 16:27 Patient medically screened. kdr 16:37 Data reviewed: vital signs, nurses notes. Counseling: I had a detailed discussion with kdr the patient and/or guardian regarding: the historical points, exam findings, and any diagnostic results supporting the discharge/admit diagnosis, the need for outpatient follow up. 01/06 13:51 Order name: US Extremity Venous Unilateral Ltd; Complete Time: 15:29 kdr Administered Medications: 15:50 Drug: Rocephin - (cefTRIAXone) 1 grams {Note: Right upper arm PICC line .} Route: IVPB; sl2 Infused Over: 30 mins; Site: Other; 16:20 Follow up: IV Status: Completed infusion; IV Intake: 50ml sl2 16:21 Follow up: Response: No adverse reaction sl2 Disposition Summary: 01/06/21 16:27 Discharge Ordered Location: Home kdr Problem: new kdr Symptoms: have improved kdr Condition: Stable kdr Diagnosis - PIC line malfunction kdr Followup: kdr - With: Frederick Gomez MD - When: 2 - 3 days - Reason: If symptoms return, Further diagnostic work-up, Recheck today's complaints, Continuance of care, Re-evaluation by your physician Discharge Instructions: - Discharge Summary Sheet kdr Forms: - Blank Diagnosis Outline kdr - Medication Reconciliation Form kdr - Thank You Letter kdr - Antibiotic Education kdr Signatures: Dispatcher [employer] Steve Simon MD MD kdr Yanna Marina RN RN ss aRchel Tamez RN RN sl2
[2021-01-06] MEDS ORDERED: CEFTRIAXONE 1000 MG/VIAL ONE (16:59)
[2021-01-06] MEDS ORDERED: NA CHLORIDE 0.9% 100 ML ONE (16:59)
[2021-01-06 17:02] VITALS: TEMP 97.5; O2SAT 92
[2021-01-06 17:03] VITALS: BP 108/46
== END 2021-01-06 16:57 | disposition home or self-care (01) ==
LOC: ER 13:19
DX: T82.594A Other mechanical complication of infusion catheter, initial encounter (principal)
CPT/HCPCS: 93971; 96365; 99283

== ENCOUNTER 2021-03-22 21:52 | Inpatient (IN) | payer OTHER ==
--- OUTSIDE RECORDS SUMMARY | 2021-03-22 22:01 | XMS REPORT | Continuity of Care Document ---
:1940 Author Organization [facility] t Address [address] [place] [address] Care Team Providers Name Role Phone Pcp Primary Care Physician Unavailable SNEHA Attending Clinician Unavailable MD SNEHA Attending Clinician Unavailable ROSENDA AQUINO Attending Clinician Unavailable BRENDAN VENTURA Attending Clinician Unavailable Attending Clinician Unavailable CHAYO Attending Clinician Unavailable SNEHA Admitting Clinician Unavailable MD SNEHA Admitting Clinician Unavailable ROSENDA AQUINO Admitting Clinician Unavailable BRENDAN VENTURA Admitting Clinician Unavailable Problems Condition Condition Condition Status Onset Resolution Last Treating Co mments Source Name Details Category Date Date Treatment Clinician Date SIRS SIRS Disease Active [facility]systemic (systemic 08-07 Luke [facility] - inflammato inflammato 00:00: Ok dical ry ry 00 Center response response [...] openia 08-06 [facility] - 00:[facility]: Medical 00 Center Hyperglyce [...] emic 5-30 [facility] - metabolic metabolic 00:00: Medi saira acidosis acidosis 00 Center Acute Acute Disease Active [facility] blood loss blood loss 5-30 Jennifer kes - anemia anemia 00:00: Medical 00 Center Chronotrop Chronotrop Disease Active [facility] ic ic 5-30 [facility] - incompeten incompeten 00:00: Me dical ce ce 00 Center S/P S/P Disease Active [facility] carotid carotid 522 [facility] - endarterec endarterec 00:00: Me dical carmen carmen 00 Center Acute Acute Disease Active [facility] respirator respirator 5-22 Jennifer kes - y y 00:00: Medical insufficie insufficie 00 Ce nter ncy ncy Hypertensi Hypertensi Disease Active [facility] ve urgency ve urgency 5-22 Jennifer kes - 00:00: Medical 00 Center Carotid Carotid Disease Active [facility] artery artery 07-27 [facility] - stenosis, stenosis, 00:00: Medi saira symptomati symptomati 00 Ce nter c, right c, right CAD CAD Disease Active [facility] (coronary (coronary 21 Luke s - artery artery 00:00: Medical disease) disease) 00 Center STROKE, Diagnosis Active 2015-02-05 Me moria EMOBOLIC 12-01 16:40:00 l STROKE, 00:00: [place] EMOBOLIC 00 Active 12/01/2014 [facility] CVA Diagnosis Active 2014-12-13 [facility] oria 11-08 16:45:00 l CVA 00:00: [place] 00 Active 11/08/2014 [facility] GRAZYNA Diagnosis Active 2015-02-05 Memoria BILLING 11-08 16:39:00 l 425 00:00: [place] GERONIMO 00 BILLING 4255 Active 11/08/2014 [facility] Clotting Clotting Problem Active Unive rs disorder disorder ity of [facility] ans Muscle Muscle Problem Active Univers weakness weakness ity of [facility] ans Polyneurop Polyneurop Problem Active U nivers athy athy ity of [facility] ans Stroke, Stroke, Problem Active Univers embolic embolic ity of [facility] ans Diabetes Diabetes Problem Active Unive rs mellitus mellitus ity of type 2, type 2, [place] uncontroll uncontroll Ph ysici ed ed ans Essential Essential Problem Active Uni vers (primary) (primary) ity of hypertens[place] hypertens[place] on [facility] ans Hyperlipid Hyperlipid Problem Active U nivers emia emia ity of [facility] Multiple Multiple Problem Active Unive rs thyroid thyroid ity of nodules nodules [facility] ans Vitamin D Vitamin D Problem Active Uni vers deficiency deficiency it y of disease disease [facility] Hypercalce Hypercalce Problem Active U nivers daija daija ity of [facility] ans Asthma Problem Resolve 2015-04-13 Tobi benedict (disorder) d 05:10:29 l Asthma [place] (disorder) Resolved Problem 04/13/2015 [facility], FELIZ Wild, FELIZ Rubi dm Problem Resolve 2015-04-13 Tobi benedict (qualifier d 05:10:29 l value) dm [place] (qualifier value) Resolved Problem 04/13/2015 [facility], FELIZ Wild, FELIZ Rubi Glaucoma Problem Resolve 2015-04-13 Me moria (disorder) d 05:10:29 l Glaucoma Michael n (disorder) Resolved Problem 04/13/2015 [facility], FELIZ Wild, FELIZ Rubi Hypertensi Problem Resolve 2015-04-13 Memoria ve d 05:10:29 l disorderJunito systemic Hypertensi arterial ve (disorder) disorder, systemic arterial (disorder) Resolved Problem 04/13/2015 [facility], FELIZ Wild, FELIZ Rubi Myocardial Problem Resolve 2015-04-13 Memoria infarction d 05:10:29 l (disorder) Michael n Myocardial infarction (disorder) Resolved Problem 04/13/2015 [facility], FELIZ Wild, OPID Elicia Diabetic Problem Resolve 2015-04-13 Me moria neuropathy d 05:10:29 l (disorder) Diabetic He rmann neuropathy (disorder) Resolved Problem 04/13/2015 [facility], FELIZ Wild, FELIZ Rubi Transient Problem Resolve 2015-04-13 M emoria ischemic d 05:10:29 l attack [place] (disorder) Transient ischemic attack (disorder) Resolved Problem 04/13/2015 [facility], FELIZ Wild, FELIZ Rubi CEREBRAL Diagnosis Active 2015-02-05 M emoria EMBOLISM W 16:40:00 l CI CEREBRAL Michael n EMBOLISM W CI Active [facility] CVA Diagnosis Active 2015-02-05 Mem oria 16:40:00 l CVA [place] Active [facility] Hypotensio Hypotensio Disease Active C [facility] n due to n due to [facility] - hypovolemi hypovolemi Me dical a a Center Normal Normal Disease Active [facility] anion gap anion gap Luke s - metabolic metabolic Medi saira acidosis acidosis Center Allergies, Adverse Reactions, Alerts Allergy Allergy Status Severity Reaction(s) Onset Inactive Treating Comm ents Source Name Type Date Date Clinician Tree Nut Drug Active Swelling Daughter [facility] Allergy 6-10 reports [facility] - 00:00: pt has Medical 00 swelling Center when she consume peanuts and tree nuts and she wanted this documente d within the EMR. Glimepir Propensi Active [facility] rodríguez ty to 521 [facility] - adverse 00:00: Medical reaction 00 Center s Hydrocod Propensi Active [facility] one-Acet ty to 5-21 [facility] - aminophe adverse 00:00: Medical n reaction 00 Center s Insulin Propensi Active [facility] Glargine ty to 521 [facility] - adverse 00:00: [...] 00 Center s Peanut Drug Active Swelling 2018- Daughter [facility] Allergy 5-21 reports [facility] [...] Center Inhibito s rs Tetanus Propensi Active [facility] Vaccines ty to 5-21 [facility] - And adverse 00:00: Medical Toxoid reaction 00 Center s Amoxicil Propensi Active [facility] andrew ty to 5-21 [facility]ukes [...] reaction 00 Center s Ezetimib Propensi Active 2018- [facility] e ty to 5-21 [facility] - adverse 00:00: Medical reaction 00 Center s glimepir glimepir Active Memori a rodríguez rodríguez l [place] HYDROcod HYDROcod Active Memori a one-PPA one-PPA l [place] Januvia Januvia Active Memoria l [place] Lantus Lantus Active Memoria l [place] Levaquin Levaquin Active Memori a l [place] metFORMI metFORMI Active Memori a N N [...] antihist Active Memori a amines amines l [place] Byetta Byetta Active Memoria Prefille Prefille l d Pen d Pen [place] Demerol Demerol Active Memoria HCl HCl l [place] Amaryl drug Active Univers allergy ity of [place] Physici ans amoxicil drug Active Univers andrew allergy ity of [place] Phys[facility] ans Angioten drug Active Univers sin allergy ity of [facility] Physici ans Augmenti drug Active Univers n allergy ity of [place] [facility] Byetta drug Active Univers SOLN allergy ity of [place] [facility] ans Cipro drug Active Univers allergy ity of [place] [facility] ans hydrocod drug Active Univers one allergy ity of [place] [facility] Januvia drug Active Univers TABS allergy ity of [place] [facility] ans Lantus drug Active Univers allergy ity of [place] [facility] ans Levaquin drug Active Univers allergy ity of [place] [facility] ans Lipitor drug Active Univers allergy ity of [place] [facility] ans Meperidi drug Active Univers ne HCl allergy ity of [facility] Physici ans MetFORMI drug Active Univers N HCl allergy ity of [facility] Physici ans Niaspan drug Active Univers TBCR allergy ity of [place] Phys[facility] ans Statins drug Active Univers allergy ity of [place] [facility] ans TETANUS drug Active Univers allergy ity of [place] [facility] ans Zetia drug Active Univers allergy ity of [place] Physici ans Family History Family Member Diagnosis [...] enter Alcohol intake 2018-08-25 2018-08-25 Current [facility] - 00:00:00 00:00:00 non-drinker of Medical Ce nter alcohol (finding) History SDOH 2018-08-05 2018-08-05 1 [facility] - [facility] Frequency 00:00:00 00:00:00 Medical Center Tobacco use and 2018-07-27 2018-07-27 Never used MATT Kitchen kes - exposure 00:00:00 00:00:00 Medical Center Social History 2014-11-09 2014-11-09 [facility] 03:26:32 03:26:32 Sex Ass[birth year] At [birth year] MATT Paynes - 00:00:00 00:00:00 Medical Center Smoking Status Start Date Stop Date Source Former smoker [facility] Never smoker [facility] Medications Ordered Filled Start Stop Current [...] capsule 45 times Center daily . insulin 2019-0 Yes 10U QD Inject 10 [facility] [...] 45 times Center daily as needed. rOPINIRole 2019- Yes .5mg QD Take 0.[address] (REQUIP) 6-19 mg by [facility]ukes - 0.5 MG 10:06: mouth Medical tablet 45 daily. Center insulin 2019-0 Yes 25U Inject 25 CHI S t detemir 6-19 Units [facility]ukes - U-100 10:06: subcutaneo Medica l (LEVEMIR) 45 usly daily Cent er 100 unit/mL with injection breakfast. insulin 2019- Yes 15U Inject 15 [facility] t aspart 6-19 Units [facility]ukes - U-100 10:06: subcutaneo Medica l (NOVOLOG) 45 usly 3 Center 100 unit/mL (three) (3 mL) InPn times daily before meals. cholecalcif 2019-0 Yes 5000U QD Take 5,[address] rosalie, 6-19 Units by [facility]ukes - vitamin D3, 10:06: mouth Medic al 5,000 unit 45 daily. Center Tab clopidogrel 2018- Yes 75mg QD Take [address] (PLAVIX) 75 6-19 by mouth Luke s - mg tablet 10:06: daily. Medica l 45 Center traMADol 20190 Yes 25mg Take [address] [...] 40 MG 00 Center tablet aspirin 81 2019- Yes 81mg QD Take 1 [facility] [...] of 100 UNIT/ML 100 UNIT/ML 00:00: M.D. [place] Subcutaneou Subcutaneou 00 P hysici s Solution s Solution ans Pen-injecto Pen-injecto r r Toujeo Toujeo Yes TITO 30 QD INJECT 30 U nivers SoloStar SoloStar 11-12 SENDOS UNIT DAILY ity of 300 UNIT/ML 300 UNIT/ML 00:00: M.D. [place] Subcutaneou Subcutaneou 00 P hysici s Solution s Solution ans Pen-injecto Pen-injecto r r OneTouch OneTouch Yes TITO uses 4 Univers Delica Delica 6-27 SENDOS daily ity of Lancets 33G Lancets 33G 00:00: M.D. [place] 00 Physici ans OneTouch OneTouch Yes TITO Q0.25D TEST 4 Univers Ultra Blue Ultra Blue 6-27 SENDOS TIMES ity of In Vitro In Vitro 00:00: M.D. DAILY. Guillermo as Strip Strip 00 Physici ans Gabapentin Gabapentin Yes LIZZY TAKE 1 Univers 100 MG Oral 100 MG Oral 3-02 OKPALA CAPSULE AT ity of Capsule Capsule 00:00: N.P. BEDTIME. Guillermo as 00 Physici ans Aspirin 81 Aspirin 81 2014-03 Yes 1 QD TAKE 1 Univers MG TABS MG TABS 0-20 TABLET ity of 00:00: DAILY. [place] 00 Physici ans MaxEPA No 2 gm, 2 Memoria 11-10 cap, l 16:00: Route: PO, [place] 00 Drug form: CAP, Q12H, Start date: 11/10/14 11:00:00, Duration: 30 day, Stop date: 12/10/14 9:00:00 Aspirin 325 Yes 325 mg = 1 Memoria MG Oral - tab, PO, l Tablet 15:34: Daily, # [place] 00 30 tab, 0 Refill(s) omega-3 Yes 2 gm = 2 Memori a polyunsatur 11-10 cap, PO, l ated fatty 15:34: Q12H, # 60 H ermann acids 1000 00 cap, 0 mg oral Refill(s) capsule [place]-3 No 2,000 mg, Memor ia Acid Ethyl 11-10 2 cap, l Esters 14:00: Route: PO, Lidya nn (MCC) 1000 00 Dosing MG Oral Weight Capsule 105.455, [Lovaza] kg, BID, Start date: 11/10/14 9:00:00, Duration: 30 day, Stop date: 12/09/14 17:00:00 Aspirin No 325 mg, Memoria 11-10 Route: PO, l 14:00: Drug form: [place] 00 TAB, Daily, Dosing Weight 105.455, kg, Start date: 11/10/14 9:00:00, Duration: 30 day, Stop date: 12/09/14 9:00:00 heparin No 5,000 Memoria 11-10 unit, l 05:00: Route: [place] 00 SUB-Q, Q8H, Dosing Weight 105.455, kg, [...] 12/09/14 14:00:00 Brimonidine 0 No 1 drp, Toib benedict tartrate 2 11-10 Route: l MG/ML [...] 11-09 tab, l 75mg/placeb 14:00: Route: PO, [place] o tablet 00 Drug form: Maintenance TAB, Dose Daily, Start date: 11/09/14 9:00:00, Duration: 89 day, Stop date: 02/05/15 9:00:00 Aspirin 325 No Notes: Toib benedict MG Oral 11-09 Take with l Tablet 14:00: food. [place] 00 Insulin, No Notes: Memoria Aspart, 11-09 Roll in l Human 05:11: palms of [place] 00 hands gently; Do not shake vigorously [...] Roll in l Human 01:24: palms of [place] 00 hands gently; Do not shake vigorously . (Same as: NovoLOG) "single patient use only" Stable for 28 days at room temperatur e. Expires in days from ____Date Dextrose No 25 gm, 50 Tobi benedict 50% Syringe -03 mL, Route: l 01:24: IVP, Drug [place] 00 Form: INJ, kg, PRN, PRN Blood Glucose Results, Start date: 11/08/14 20:24:00, Duration: 30 day, Stop date: 12/08/14 20:23:00 Glucagon No 1 mg, Memoria 11-09 Route: IM, l 01:24: Drug form: [place] 00 PDR/INJ, PRN, kg, PRN Blood Glucose Results, Start date: 11/08/14 20:24:00, Duration: 30 day, Stop date: 12/08/14 20:23:00 INV No 600 mg, 8 Memoria Clopidogrel 11-09 tab, l 75mg/placeb 01:00: Route: PO, [place] o tablet 00 Drug form: Loading TAB, ONCE, Dose Start date: 11/08/14 20:00:00, Stop date: 11/08/14 20:00:00 Ativan No Notes: Memoria 11-09 (Same as: l 00:49: Ativan) [place] Ondansetron No Notes: Tobi benedict 11-09 (Same as: l 00:37: Zofran) [place] 00 MEDICATION WASTE Product Size: 4 mg Product Wasted: ___ mg Acetaminoph No Notes: Max Memoria en 11-09 acetaminop l 00:37: hen 4000 [place] 00 mg/day (4 gm/day). (Same as: Tylenol Extra Strength) Amlodipine Yes 2.5 mg, Tobi benedict 11-09 PO, Daily, l 00:33: 0 [place] 00 Refill(s) spironolact Yes 50 mg = [...] Oral TABLET ity of Tablet Tablet DAILY. [place] Physici ans NovoLOG NovoLOG Yes Inject 10 Univ ers FlexPen 100 FlexPen 100 units ity of UNIT/ML UNIT/ML before [place] Subcutaneou Subcutaneou each meal Physici s Solution s Solution subcutaneo ans Pen-injecto Pen-injecto usly r r Spironolact Spironolact Yes 1 QD TAKE 1 Univers one 50 MG one 50 MG TABLET ity of Oral Tablet Oral Tablet DAILY. [place] Physici ans Levemir Levemir Yes Inject 20 Univ ers FlexTouch FlexTouch units ity of 100 UNIT/ML 100 UNIT/ML subcu once [place] Subcutaneou Subcutaneou a day Physici s Solution s Solution befor an s Pen-injecto Pen-injecto meal. r r Jublia 10 % Jublia 10 % Yes U nivers External External ity of Solution Solution [place] Physici ans Vital Signs Vital Name Observation Time Observation Value Comments Source BMI Calculated 2014-12-06 12:26:00 Ben Patino Weight 2014-12-06 12:26:00 [facility] [place] Height 2014-12-06 12:26:[address] [facility] [place] Systolic (mm Hg) 2014-11-10 12:45:00 Tobi Wild Diastolic (mm Hg) 2014-11-10 12:45:00 Mem orial [place] Respitory Rate 2014-11-10 12:45:00 Memori al [place] Heart Rate 2014-11-10 12:45:00 [facility] [place] Temperature Oral (F) 2014-11-10 12:45:00 97.3 F [facility] [place] Temperature Oral (F) 2014-11-10 08:17:00 97.8 F Memorial [place] Systolic (mm Hg) 2014-11-10 08:17:00 Tobi rial [place] Diastolic (mm Hg) 2014-11-10 08:17:00 Mem orial [place] Respitory Rate 2014-11-10 08:17:00 Memori al [place] Systolic (mm Hg) 2014-11-10 04:33:00 Tobi rial [place] Diastolic (mm Hg) 2014-11-10 04:33:00 Mem orial [place] Temperature Oral (F) 2014-11-10 04:33:00 97.8 F Memorial [place] Respitory Rate 2014-11-10 04:33:00 Memori al [place] Heart Rate 2014-11-09 16:15:00 Memorial [place] Heart Rate 2014-11-09 16:00:00 [facility] [place] Weight 2014-11-09 02:52:00 Memorial [place] BMI Calculated 2014-11-09 02:52:00 Memori al [place] Height 2014-11-09 02:52:[address] [facility] [place] Procedures Procedure Date / Time Performing Clinician Source Performed History of Cholecystectomy [email or web address] of [place] Physicians History of Splenectomy [facility] Physicians [facility] of [facility] History of [facility] Hemorrhoidectomy Physicians History of Tonsillectomy [facility] With Adenoidectomy Physicians History of Inguinal Hernia Unive [facility] Repair Physicians Abdominal hysterectomy [facility] [place] Bilateral inguinal hernia Memori al [place] repair Cholecystectomy Memorial [place] Hemorrhoidectomy Memorial Michael n Tonsillectomy and Memorial Lidya nn adenoidectomy Total splenectomy Memorial Lidya nn Plan of Care Planned Activity Planned Date [...] of 1 - [facility] [id number]) [code = PNEUMOCOCCAL 65+ YRS (1 of 1 - [id number] PCV13)] Encounters Start End Encounter Admission Attending Care Care Encounter Source Date/Time Date/Time Type Type Clinicians Facility Department ID 2021-02-08 2021-02-09 Outpatient SNEHA, [facility] [id number] [place] 00:00:00 00:00:00 NADIM [address] 2021-02-04 2021-02-04 Outpatient SNEHA, [facility] [id number] [place] [address] 00:00:00 00:00:00 NADIM [address] 2015-04-10 2015-04-11 Outpt Diag nullFlavo [facility] [id number] Memoria 18:42:00 05:59:00 Services r Outpatient 01 l Imaging [facility] 2015-04-10 2015-04-10 JULIA Covarrubias Neurology [id number] Univers 09:00:00 09:00:00 t; [facility]TT[facility] 2015-04-09 2015-04-10 Outpt Diag nullFlavo [facility] [id number] Memoria 18:48:00 05:59:00 Services r Outpatient 00 l [facility] 2015-03-27 2015-03-27 AppointJULIA Suarez [facility] [id number] Univers 11:15:00 11:15:00 t; TITO DOMINGO it y of [place], M.D. [place] M.D. Physici ans 2015-03-06 2015-03-06 JULIA Covarrubisa [id number] Univers 09:00:00 09:00:00 t; ETTA GOODWIN [facility] ans 2014-12-06 2014-12-[address] [facility] [id number] Memoria 12:19:00 04:59:00 r [place] 00 l [facility] 2014-11-08 2014-11-10 Inpatient [facility] [id number] Memoria 21:20:00 17:54:[address] Results Test Description Test Time Test Comments Results Result Comments Source SARS-CoV-2 (COVID-19) RNA [Presence] in Respiratory sp ecimen by 2021-02-04 19:42:59 GURMEET with probe detection Test Item Value Reference Range Interpretation Comme nts SARS-CoV-2 (COVID-19) RNA [Presence] in Respiratory Not detected No t-Detected specimen by GURMEET with probe detection (test code = 04905-6) Whether patient is employed in a healthcare setting (test code = 69019-7) Whether the patient has symptoms related to condition of interest (test code = 46035-7) Patient was hospitalized because of this condition (test code = 37915-6) Whether the patient was admitted to intensive care unit (ICU) for condition of interest (test code = 82396-8) Whether patient resides in a congregate care setting (test code = 51488-0) POCT-GLUCOSE [id number] 12:30:00 Test Item Value Reference Range Interpretation Comments POC-GLUCOSE METER 164 mg/dL 70-110 H TESTED AT [place] [id number] ([facility]) (test code = DAVE [place] 1538) [address] POCT-GLUCOSE [id number] 12:29:00 Test Item Value Reference Range Interpretation Comments POC-GLUCOSE METER 83 mg/dL 70-110 TESTED AT [place] 9026020 ([employer]) (test code = DAVE Borja [facility] [address] 1538) POCT-GLUCOSE [id number] 22:17:00 Test Item Value Reference Range Interpretation Comments POC-GLUCOSE METER 116 mg/dL 70-[address] [facility] 6720 ([employer]) (test code = DAVE Borja [facility] 1538) [address] POCT-GLUCOSE [id number] 17:38:00 Test Item Value Reference Range Interpretation Comments POC-GLUCOSE METER 168 mg/dL 70-[address] [facility] 6720 ([employer]) (test code = DAVE Borja [facility] 1538) 95478 POCT-GLUCOSE [id number] 12:41:00 Test Item Value Reference Range Interpretation Comments POC-GLUCOSE METER 243 mg/dL 70-110 H TESTED AT [place] [address] [facility] (test code = DAVE Borja [facility] 1538) 57089 POCT-GLUCOSE [id number] 09:34:00 Test Item Value Reference Range Interpretation Comments POC-GLUCOSE METER 193 mg/dL 70-110 H TESTED AT [place] [address] ([facility]AK[facility]) (test code = DAVE Borja [facility] 1538) [address]40 POCT-GLUCOSE [id number] 21:52:00 Test Item Value Reference Range Interpretation Comments POC-GLUCOSE METER 222 mg/dL 70-110 H TESTED AT [place] [address] [facility] (test code = DAVE Borja [facility] 1538) 81482 POCT-GLUCOSE [id number] 18:59:00 Test Item Value Reference Range Interpretation Comments POC-GLUCOSE METER 181 mg/dL 70-110 H TESTED AT [place] [address] [facility]) (test code = DAVE Borja [facility] 1538) 23646 POCT-GLUCOSE [id number] 14:21:00 Test Item Value Reference Range Interpretation Comments POC-GLUCOSE METER 179 mg/dL 70-110 H TESTED AT [place] [address] [facility]) (test code = DAVE Borja [facility] 1538) 19601 POCT-GLUCOSE [id number] 09:40:00 Test Item Value Reference Range Interpretation Comments POC-GLUCOSE METER 211 mg/dL 70-110 H TESTED AT [place] [address] [facility]) (test code = DAVE Borja [facility] 1538) [address] BASIC METABOLIC [id number] 06:49:00 Test Item Value Reference Range Interpretation [...] PATIEN TS. CBC W/PLT COUNT & AUTO [id number] 06:45:00 Test Item Value Reference Range Interpretation [...] (BEAKER) (test code = 2801) URINALYSIS W/ [id number] 04:40:00 Test Item Value Reference Range Interpretation [...] 516) SOURCE(BEAKER) (test code = 2795) POCT-GLUCOSE [id number] 20:47:00 Test Item Value Reference Range Interpretation Comments POC-GLUCOSE METER 273 mg/dL 70-[address] [facility] 6720 (BEAKER) (test code = DAVE [place] 1538) [address] POCT-GLUCOSE [id number] 18:20:00 Test Item Value Reference Range Interpretation Comments POC-GLUCOSE METER 305 mg/dL 70-110 H Notified Huong Beverly MD/TESTED ([facility]) (test code = AT [place] [address] [facility] [address] 7703 0 POCT-GLUCOSE [id number] 14:27:00 Test Item Value Reference Range Interpretation Comments POC-GLUCOSE METER 215 mg/dL 70-110 H TESTED AT [place] [address] ([facility]) (test code = DAVE Borja [facility] 1538) [address] POCT-GLUCOSE [id number] 12:10:00 Test Item Value Reference Range Interpretation Comments POC-GLUCOSE METER 278 mg/dL 70-110 H TESTED AT [place] [address] ([facility]) (test code = DAVE Borja [facility] 1538) 44156 POCT-GLUCOSE [id number] 08:12:00 Test Item Value Reference Range Interpretation Comments POC-GLUCOSE METER 225 mg/dL 70-110 H TESTED AT [place] [address] ([facility]) (test code = DAVE Borja [facility] 1538) 28974 POCT-GLUCOSE [id number] 21:36:00 Test Item Value Reference Range Interpretation Comments POC-GLUCOSE METER 272 mg/dL 70-110 H TESTED AT [place] [address] ([facility]) (test code = DAVE Borja [facility] 1538) 13620 POCT-GLUCOSE [id number] 18:06:00 Test Item Value Reference Range Interpretation Comments POC-GLUCOSE METER 264 mg/dL 70-110 H TESTED AT [place] [address] ([facility]) (test code = DAVE Borja [facility] 1538) 46388 POCT-GLUCOSE [id number] 13:33:00 Test Item Value Reference Range Interpretation Comments POC-GLUCOSE METER 225 mg/dL 70-110 H TESTED AT [place] [address] ([facility]) (test code = DAVE Borja [facility] 1538) 58007 POCT-GLUCOSE [id number] 08:16:00 Test Item Value Reference Range Interpretation Comments POC-GLUCOSE METER 217 mg/dL 70-110 H TESTED AT [place] [address] ([facility]) (test code = DAVE Borja [facility] 1538) 89193 [id number] 07:48:00 Test Item Value Reference Range Interpretation Comments MAGNESIUM ([facility]) (test code = 1.6 mg/dL 1.6-2.6 627) BASIC METABOLIC [id number] 07:48:00 Test Item Value Reference Range Interpretation [...] PATIEN TS. CBC W/PLT COUNT & AUTO [id number] 07:18:00 Test Item Value Reference Range Interpretation [...] PERCENT (BEAKER) (test code = 2801) POCT-GLUCOSE [id number] 23:19:00 Test Item Value Reference Range Interpretation Comments POC-GLUCOSE METER 214 mg/dL 70-[address] [facility] 6720 (BEAKER) (test code = [place] 1538) [address] POCT-GLUCOSE [id number] 16:37:00 Test Item Value Reference Range Interpretation Comments POC-GLUCOSE METER 192 mg/dL 70-[address] [facility] 6720 (BEAKER) (test code = D[place] 1538) [address] POCT-GLUCOSE [id number] 12:47:00 Test Item Value Reference Range Interpretation Comments POC-GLUCOSE METER 233 mg/dL 70-[address] [facility] 6720 (BEAKER) (test code = [place] 1538) [address] BASIC METABOLIC [id number] 11:26:00 Test Item Value Reference Range Interpretation [...] GFR I S NOT APPLICABLE FOR DIALYSIS PATISADAF TS. [id number] 11:26:00 Test Item Value Reference Range Interpretation Comments MAGNESIUM (BEAKER) (test code = 1.2 mg/dL 1.6-2.6 L 627) CBC W/PLT COUNT & AUTO [id number] 11:17:00 Test Item Value Reference Range Interpretation [...] 3438) Received comment: User comments: Slide comments:POCT-GLUCOSE [id number] 07:57:00 Test Item Value Reference Range Interpretation Comments POC-GLUCOSE METER 165 mg/dL 70-[address] [facility] 6720 (BEAKER) (test code = DAVE Borja [facility] 1538) [address] POCT-GLUCOSE [id number] 22:08:00 Test Item Value Reference Range Interpretation Comments POC-GLUCOSE METER 161 mg/dL 70-[address] [facility] 6720 (BEAKER) (test code = DAVE Borja [facility] 1538) [address] POCT-GLUCOSE [id number] 18:10:00 Test Item Value Reference Range Interpretation Comments POC-GLUCOSE METER 141 mg/dL 70-[address] [facility] 6720 (BEAKER) (test code = DAVE Borja [facility] 1538) [address] [id number] 14:55:00 Test Item Value Reference Range Interpretation Comments MAGNESIUM (BEAKER) 1.2 mg/dL 1.6-2.6 L Specimen slightly (test code = 627) hemolyzed BASIC METABOLIC [id number] 14:55:00 Test Item Value Reference Range Interpretation [...] NOT APPLICABLE FOR DIALYSIS PATIEN TS. POCT-GLUCOSE [id number] 12:01:00 Test Item Value Reference Range Interpretation Comments POC-GLUCOSE METER 163 mg/dL 70-[address] [facility] 6720 (BEAKER) (test code = DAVE VASQUEZ 1538) 27[address] CBC W/PLT COUNT & AUTO [id number] 11:57:00 Test Item Value Reference Range Interpretation [...] EOSINOPHILS ABSOLUTE COUNT 0.15 K/ L 0.04-0.36 ([facility]) (test code = 416) BASOPHILS ABSOLUTE COUNT ([facility]) 0.05 K/ L 0.01-0.08 (test code = 417) IMMATURE GRANULOCYTES-RELATIVE 1 % 0-1 PERCENT ([facility]) (test code = 2801) POCT-GLUCOSE [id number] 10:18:00 Test Item Value Reference Range Interpretation Comments POC-GLUCOSE METER 155 mg/dL 70-110 H TESTED AT [place] [address] ([facility]) (test code = [facility] 1538) [address] POCT-GLUCOSE [id number] 08:13:00 Test Item Value Reference Range Interpretation Comments POC-GLUCOSE METER 157 mg/dL 70-110 H TESTED AT [place] [address] ([facility]) (test code = [facility] 1538) 147[address] POCT-GLUCOSE [id number] 21:57:00 Test Item Value Reference Range Interpretation Comments POC-GLUCOSE METER 181 mg/dL 70-110 H TESTED AT [place] [address] ([facility]) (test code = [facility] 1538) 218[address] POCT-GLUCOSE [id number] 17:39:00 Test Item Value Reference Range Interpretation Comments POC-GLUCOSE METER 232 mg/dL 70-110 H TESTED AT [place] [address] ([facility]) (test code = [facility] 1538) 66033 POCT-GLUCOSE [id number] 12:55:00 Test Item Value Reference Range Interpretation Comments POC-GLUCOSE METER 207 mg/dL 70-110 H TESTED AT [place] [address] ([facility]) (test code = [facility] 1538) 12373 CBC W/PLT COUNT & AUTO [id number] 12:50:00 Test Item Value Reference Range Interpretation Comments WHITE BLOOD CELL COUNT ([facility]) 11.8 K/ L 3.5-10.5 H (test code = 775) RED BLOOD CELL COUNT ([facility]) 2.74 M/ L 3.93-5.22 L (test code = 761) HEMOGLOBIN ([facility]) (test code = 10.3 GM/DL 11.2-15.7 L 410) HEMATOCRIT ([facility]) (test code = 28.6 % 34.1-44.9 L [...] 3438) Received comment: User comments: Slide comments:POCT-GLUCOSE [id number] 08:56:00 Test Item Value Reference Range Interpretation Comments POC-GLUCOSE METER 194 mg/dL 70-[address] [facility] 6720 (BEAKER) (test code = [facility] [place] 1538) [address] [id number] 06:11:00 Test Item Value Reference Range Interpretation Comments MAGNESIUM (BEAKER) (test code = 1.4 mg/dL 1.6-2.6 L 627) BASIC METABOLIC [id number] 06:11:00 Test Item Value Reference Range Interpretation [...] NOT APPLICABLE FOR DIALYSIS PATIEN TS. POCT-GLUCOSE [id number] 21:53:00 Test Item Value Reference Range Interpretation Comments POC-GLUCOSE METER 225 mg/dL 70-[address] [facility] 6720 (BEAKER) (test code = ZAIREKY [place] 1538) [address] POCT-GLUCOSE [id number] 19:30:00 Test Item Value Reference Range Interpretation Comments POC-GLUCOSE METER 225 mg/dL 70-110 H TESTED AT [place] [address] ([facility]) (test code = DAVE Borja [place] 1538) [address] POCT-GLUCOSE [id number] 15:02:00 Test Item Value Reference Range Interpretation Comments POC-GLUCOSE METER 179 mg/dL 70-110 H TESTED AT [place] [address] ([facility]) (test code = [place] 1538) [address] [id number] 13:04:00 Test Item Value Reference Range Interpretation Comments MAGNESIUM (BEAKER) 1.5 mg/dL 1.6-2.6 L Specimen slightly (test code = 627) hemolyzed Check Serum Magnesium level 2 hours after IV magnesium replacement.Every 8 hours PRN for Creatinine greater than or equal to 2 mg/dL.[id number] 13:04:00 Test Item Value Reference Range Interpretation Comments POTASSIUM (BEAKER) 4.2 meq/L 3.5-5.1 Specimen slightly (test code = 379) hemolyzed Check Serum Magnesium level 2 hours after IV magnesium replacement.Every 8 hours PRN for Creatinine greater than or equal to 2 mg/dL.POCT-GLUCOSE METER 2018-08-09 08:24:00 Test Item Value Reference Range Interpretation Comments POC-GLUCOSE METER 189 mg/dL 70-110 H TESTED AT [place] [address] ([facility]) (test code = DAVE Borja [facility] 1538) 05[address] CBC W/PLT COUNT & AUTO [id number] 08:03:00 Test Item Value Reference Range Interpretation [...] 3438) Received comment: User comments: Slide comments:CALCIUM, [id number] 05:17:00 Test Item Value Reference Range Interpretation Comments CALCIUM IONIZED (BEAKER) (test 1.26 mmol/L 1.12-1.27 code = 698) PH, BLOOD (BEAKER) (test code = 7.42 1810) [id number] 05:09:00 Test Item Value Reference Range Interpretation Comments PHOSPHORUS (BEAKER) (test code = 2.0 mg/dL 2.3-4.7 L 604) [id number] 05:09:00 Test Item Value Reference Range Interpretation Comments MAGNESIUM (BEAKER) (test code = 1.6 mg/dL 1.6-2.6 627) BASIC METABOLIC [id number] 05:09:00 Test Item Value Reference Range Interpretation [...] NOT APPLICABLE FOR DIALYSIS PATIEN TS. POCT-GLUCOSE [id number] 23:39:00 Test Item Value Reference Range Interpretation Comments POC-GLUCOSE METER 200 mg/dL 70-[address] [facility] 6720 (BEAKER) (test code = [place] 1538) [address] [id number] 22:42:00 Test Item Value Reference Range Interpretation Comments MAGNESIUM (BEAKER) (test code = 1.5 mg/dL 1.6-2.6 L 627) POTASSIUM-STAT [id number] 22:24:00 Test Item Value Reference Range Interpretation Comments POTASSIUM (BEAKER) (test code = 3.7 meq/L 3.6-5.5 379) BLOOD GAS, [id number] 22:24:00 Test Item Value Reference Range Interpretation [...] (test code = 1819) 28.0 % CALCIUM, [id number] 22:23:00 Test Item Value Reference Range Interpretation Comments CALCIUM IONIZED (BEAKER) (test 1.21 mmol/L 1.12-1.27 code = 698) PH, BLOOD (BEAKER) (test code = 7.44 1810) POCT-GLUCOSE [id number] 17:12:00 Test Item Value Reference Range Interpretation Comments POC-GLUCOSE METER 199 mg/dL 70-110 H TESTED AT [place] [address] ([facility]) (test code = DAVE Borja [facility] 1538) 24226 POCT-GLUCOSE [id number] 12:12:00 Test Item Value Reference Range Interpretation Comments POC-GLUCOSE METER 184 mg/dL 70-110 H TESTED AT [place] [address] ([facility]) (test code = [facility] [place] [facility] 1538) 94[address] POCT-GLUCOSE [id number] 08:49:00 Test Item Value Reference Range Interpretation Comments POC-GLUCOSE METER 195 mg/dL 70-110 H TESTED AT [place] [address] ([facility]) (test code = [facility] Huong [facility] 1538) [address] RAD, CHEST, 1 VIEW, NON [id number] 08:36:00Reason for exam:->s/p CV surgeryShould this be [...] MDReport Verified Date/Time: 08/08/2018 08:36:43 Reading Location: [address] Neuro Reading Room CBC W/PLT COUNT & AUTO [id number] 05:32:00 Test Item Value Reference Range Interpretation [...] 0-1 PERCENT (BEAKER) (test code = 2801) [id number] 05:14:00 Test Item Value Reference Range Interpretation Comments MAGNESIUM (BEAKER) (test code = 2.1 mg/dL 1.6-2.6 627) BASIC METABOLIC [id number] 05:14:00 Test Item Value Reference Range Interpretation [...] NOT APPLICABLE FOR DIALYSIS PATIEN TS. CALCIUM, [id number] 05:07:00 Test Item Value Reference Range Interpretation Comments CALCIUM IONIZED (BEAKER) (test 1.21 mmol/L 1.12-1.27 code = 698) PH, BLOOD (BEAKER) (test code = 7.42 1810) BLOOD GAS, [id number] 05:06:00 Test Item Value Reference Range Interpretation [...] code = 1819) 28.0 % LACTIC ACID, [id number] 05:01:00 Test Item Value Reference Range Interpretation Comments LACTATE BLOOD ARTERIAL (2) 1.0 mmol/L 0.5-2.2 (BEAKER) (test code = 2874) POCT-GLUCOSE [id number] 23:22:00 Test Item Value Reference Range Interpretation Comments POC-GLUCOSE METER 252 mg/dL 70-[address] [facility] 6720 (BEAKER) (test code = [facility] 1538) [address] LACTIC ACID, [id number] 19:42:00 Test Item Value Reference Range Interpretation Comments LACTATE BLOOD ARTERIAL (2) 1.6 mmol/L 0.5-2.2 (BEAKER) (test code = 2874) BLOOD GAS, [id number] 19:33:00 Test Item Value Reference Range Interpretation [...] code = 1819) 36.0 % LACTIC ACID, [id number] 16:37:00 Test Item Value Reference Range Interpretation Comments LACTATE BLOOD ARTERIAL (2) 2.6 mmol/L 0.5-2.2 H (BEAKER) (test code = 2874) BLOOD GAS, [id number] 16:21:00 Test Item Value Reference Range Interpretation [...] code = 1819) 36.0 % BLOOD GAS, [id number] 15:01:00 Test Item Value Reference Range Interpretation [...] code = 1819) 36.0 % OXYGEN SATURATION, [id number] 14:58:00 Test Item Value Reference Range Interpretation Comments O2 SATURATION (MEASURED) (BEAKER) 63.8 % (test code = 1455) LACTIC ACID, [id number] 08:57:00 Test Item Value Reference Range Interpretation Comments LACTATE BLOOD ARTERIAL (2) 0.9 mmol/L 0.5-2.2 (BEAKER) (test code = 2874) RAD, CHEST, 1 VIEW, NON [id number] 06:53:00Reason for exam:->s/p CV surgeryShould this be [...] quadrant. Prior median sternotomy. Signed: Freddy Sheldon Verified Date/Time: 08/07/2018 06:53:26 Reading Location: [facility] C0Y CT Body Reading Room Electronically signedby: FREDDY SHELDON MD on 08/07/2018 06:53 [id number] 04:25:00 Test Item Value Reference Range Interpretation Comments PHOSPHORUS (BEAKER) (test code = 2.6 mg/dL 2.3-4.7 604) [id number] 04:25:00 Test Item Value Reference Range Interpretation Comments MAGNESIUM (BEAKER) (test code = 1.9 mg/dL 1.6-2.6 627) BASIC METABOLIC [id number] 04:25:00 Test Item Value Reference Range Interpretation [...] 0-0 (BEAKER) (test code = 413) CALCIUM, [id number] 03:31:00 Test Item Value Reference Range Interpretation Comments CALCIUM IONIZED (BEAKER) (test 1.23 mmol/L 1.12-1.27 code = 698) PH, BLOOD (BEAKER) (test code = 7.40 1810) BLOOD GAS, [id number] 03:19:00 Test Item Value Reference Range Interpretation [...] (BEAKER) (test code = 1819) 32.0 % [id number] 22:08:00 Test Item Value Reference Range Interpretation Comments MAGNESIUM (BEAKER) (test code = 2.2 mg/dL 1.6-2.6 627) BLOOD GAS, [id number] 22:00:00 Test Item Value Reference Range Interpretation [...] (test code = 1819) 32.0 % GLUCOSE-STAT [id number] 22:00:00 Test Item Value Reference Range Interpretation Comments GLUCOSE RANDOM (BEAKER) (test code 187 mg/dL 70-110 H = 652) HGB/HCT (H&H) - STAT [id number] 22:00:00 Test Item Value Reference Range Interpretation Comments HEMOGLOBIN (BEAKER) (test code = 10.3 g/dL 12.0-15.0 L 410) HEMATOCRIT (BEAKER) (test code = 30.0 % 36.0-45.0 L 411) SODIUM NA-STAT [id number] 21:59:00 Test Item Value Reference Range Interpretation Comments SODIUM (BEAKER) (test code = 381) 137 meq/L 135-148 POTASSIUM-STAT [id number] 21:59:00 Test Item Value Reference Range Interpretation Comments POTASSIUM (BEAKER) (test code = 4.0 meq/L 3.6-5.5 379) OXYGEN SATURATION, [id number] 21:59:00 Test Item Value Reference Range Interpretation Comments O2 SATURATION (MEASURED) (BEAKER) 70.7 % (test code = 1455) CALCIUM, [id number] 21:59:00 Test Item Value Reference Range Interpretation Comments CALCIUM IONIZED (BEAKER) (test 1.23 mmol/L 1.12-1.27 code = 698) PH, BLOOD (BEAKER) (test code = 7.41 1810) POCT-GLUCOSE [id number] 17:02:00 Test Item Value Reference Range Interpretation Comments POC-GLUCOSE METER 223 mg/dL 70-110 H TESTED AT [place] [address] ([facility]) (test code = [place] 1538) [address] POCT-GLUCOSE [id number] 12:13:00 Test Item Value Reference Range Interpretation Comments POC-GLUCOSE METER 109 mg/dL 70-110 TESTED AT [place] [address] ([facility]) (test code = [place] 1538) [address] POCT-GLUCOSE [id number] 10:41:00 Test Item Value Reference Range Interpretation Comments POC-GLUCOSE METER 105 mg/dL 70-110 TESTED AT [place] [address] ([facility]) (test code = [place] 1538) [address] COMPREHENSIVE METABOLIC [id number] 09:37:00 Test Item Value Reference Range Interpretation [...] APPLICABLE FOR DIALYSIS PATIEN TS. BLOOD GAS, [id number] 08:39:00 Test Item Value Reference Range Interpretation [...] -2.0-3.0 (test code = 387) PATIENT TEMPERATURE ([facility]) 37.1 C (test code = 1818) FIO2 (BEAKER) (test code = 1819) 40.0 % RAD, CHEST, 1 VIEW, NON [id number] 07:24:00Reason for exam:->s/p CV surgeryShould this be [...] MDReport Verified Date/Time: 08/06/2018 07:24:21 Reading Location: [facility] Radiology ReadingRoom POCT-GLUCOSE [id number] 06:19:00 Test Item Value Reference Range Interpretation Comments POC-GLUCOSE METER 157 mg/dL 70-110 H TESTED AT [place] [address] ([facility]) (test code = DAVE Borja [facility] 1538) 110[address] POCT-GLUCOSE [id number] 06:19:00 Test Item Value Reference Range Interpretation Comments POC-GLUCOSE METER 162 mg/dL 70-[address] [facility] 67 ([facility]) (test code = DAVE Borja [facility] 1538) [address]69 POCT-GLUCOSE [id number] 06:18:00 Test Item Value Reference Range Interpretation Comments POC-GLUCOSE METER 120 mg/dL 70-[address] [facility] 6720 ([facility]) (test code = DAVE Borja [facility] 1538) [address] [id number] 04:49:00 Test Item Value Reference Range Interpretation [...] than or equal to 2 mg/dL.BASIC METABOLIC [id number] 04:49:00 Test Item Value Reference Range Interpretation [...] than or equal to 2 mg/dL.LACTIC ACID, [id number] 04:44:00 Test Item Value Reference Range Interpretation [...] (BEAKER) (test code = 413) OXYGEN SATURATION, [id number] 04:32:00 Test Item Value Reference Range Interpretation Comments O2 SATURATION (MEASURED) (BEAKER) 69.8 % (test code = 1455) CALCIUM, [id number] 04:28:00 Test Item Value Reference Range Interpretation Comments CALCIUM IONIZED (BEAKER) (test 1.19 mmol/L 1.12-1.27 code = 698) PH, BLOOD (BEAKER) (test code = 7.41 1810) BLOOD GAS, [id number] 04:27:00 Test Item Value Reference Range Interpretation [...] (test code = 1819) 40.0 % POCT-GLUCOSE [id number] 02:20:00 Test Item Value Reference Range Interpretation Comments POC-GLUCOSE METER 165 mg/dL 70-110 H TESTED AT [place] [address] ([facility]) (test code = [facility] 1538) [address] POCT-GLUCOSE [id number] 02:20:00 Test Item Value Reference Range Interpretation Comments POC-GLUCOSE METER 180 mg/dL 70-110 H TESTED AT [place] [address] ([facility]) (test code = [facility] 1538) 18964 POCT-GLUCOSE [id number] 02:20:00 Test Item Value Reference Range Interpretation Comments POC-GLUCOSE METER 191 mg/dL 70-110 H TESTED AT [place] [address] ([facility]) (test code = [facility] 1538) 23070 CALCIUM, [id number] 00:05:00 Test Item Value Reference Range Interpretation Comments CALCIUM IONIZED (BEAKER) (test 1.19 mmol/L 1.12-1.27 code = 698) PH, BLOOD (BEAKER) (test code = 7.37 1810) LACTIC ACID, [id number] 00:05:00 Test Item Value Reference Range Interpretation Comments LACTATE BLOOD 4.1 mmol/L 0.5-2.2 H Specimen sligh tly ARTERIAL (2) (BEAKER) hemoly zed (test code = 2874) BLOOD GAS, [id number] 00:04:00 Test Item Value Reference Range Interpretation [...] (test code = 1819) 40.0 % GLUCOSE-STAT [id number] 00:04:00 Test Item Value Reference Range Interpretation Comments GLUCOSE RANDOM (BEAKER) (test code 173 mg/dL 70-110 H = 652) HGB/HCT (H&H) - STAT [id number] 00:04:00 Test Item Value Reference Range Interpretation Comments HEMOGLOBIN (BEAKER) (test code = 8.6 g/dL 12.0-15.0 L 410) HEMATOCRIT (BEAKER) (test code = 25.0 % 36.0-45.0 L 411) [id number] 00:02:00 Test Item Value Reference Range Interpretation Comments MAGNESIUM (BEAKER) (test code = 2.4 mg/dL 1.6-2.6 627) Check Serum Magnesium level 2 hours after IV magnesium replacement.SODIUM NA- STAT [id number] 00:00:00 Test Item Value Reference Range Interpretation Comments SODIUM (BEAKER) (test code = 381) 137 meq/L 135-148 POTASSIUM-STAT [id number] 00:00:00 Test Item Value Reference Range Interpretation Comments POTASSIUM (BEAKER) (test code = 4.1 meq/L 3.6-5.5 379) POCT-GLUCOSE [id number] 22:43:00 Test Item Value Reference Range Interpretation Comments POC-GLUCOSE METER 182 mg/dL 70-[address] [facility] 6720 (BEAKER) (test code = D[place] 1538) [address] POCT-GLUCOSE [id number] 22:43:00 Test Item Value Reference Range Interpretation Comments POC-GLUCOSE METER 174 mg/dL 70-[address] [facility] 6720 (BEAKER) (test code = [place] 1538) [address] POCT-GLUCOSE [id number] 22:43:00 Test Item Value Reference Range Interpretation Comments POC-GLUCOSE METER 150 mg/dL 70-[address] [facility] 6720 (BEAKER) (test code = [place] 1538) [address] CALCIUM, [id number] 19:54:00 Test Item Value Reference Range Interpretation Comments CALCIUM IONIZED (BEAKER) (test 1.16 mmol/L 1.12-1.27 code = 698) PH, BLOOD (BEAKER) (test code = 7.39 1810) LACTIC ACID, [id number] 19:40:00 Test Item Value Reference Range Interpretation Comments LACTATE BLOOD ARTERIAL (2) 2.3 mmol/L 0.5-2.2 H (BEAKER) (test code = 2874) [id number] 19:38:00 Test Item Value Reference Range Interpretation Comments MAGNESIUM (BEAKER) (test code = 2.2 mg/dL 1.6-2.6 627) SODIUM NA-STAT [id number] 19:24:00 Test Item Value Reference Range Interpretation Comments SODIUM (BEAKER) (test code = 381) 135 meq/L 135-148 POTASSIUM-STAT [id number] 19:24:00 Test Item Value Reference Range Interpretation Comments POTASSIUM (BEAKER) (test code = 3.7 meq/L 3.6-5.5 379) BLOOD GAS, [id number] 19:24:00 Test Item Value Reference Range Interpretation [...] (test code = 1819) 40.0 % GLUCOSE-STAT [id number] 19:24:00 Test Item Value Reference Range Interpretation Comments GLUCOSE RANDOM (BEAKER) (test code 163 mg/dL 70-110 H = 652) HGB/HCT (H&H) - STAT [id number] 19:24:00 Test Item Value Reference Range Interpretation Comments HEMOGLOBIN (BEAKER) (test code = 9.5 g/dL 12.0-15.0 L 410) HEMATOCRIT (BEAKER) (test code = 28.0 % 36.0-45.0 L 411) OXYGEN SATURATION, [id number] 19:23:00 Test Item Value Reference Range Interpretation Comments O2 SATURATION (MEASURED) (BEAKER) 73.8 % (test code = 1455) POCT-GLUCOSE [id number] 17:19:00 Test Item Value Reference Range Interpretation Comments POC-GLUCOSE METER 128 mg/dL 70-110 H TESTED AT [place] [address] ([facility]) ([facility] [place] 1538[facility] [address] OXYGEN SATURATION, [id number] 17:19:00 Test Item Value Reference Range Interpretation Comments O2 SATURATION (MEASURED) (AKER) 60.6 % (test code = 1455) POCT-GLUCOSE [id number] 17:19:00 Test Item Value Reference Range Interpretation Comments POC-GLUCOSE METER 158 mg/dL 70-110 H TESTED AT [place] [address] ([facility]) (test code = [facility] [place] 1538) [address] LACTIC ACID, [id number] 17:01:00 Test Item Value Reference Range Interpretation Comments LACTATE BLOOD ARTERIAL (2) 1.5 mmol/L 0.5-2.2 (BEAKER) (test code = 2874) HEMOGLOBIN AND [id number] 16:49:00 Test Item Value Reference Range Interpretation Comments HEMOGLOBIN (BEAKER) (test code = 8.8 GM/DL 11.2-15.7 L 410) HEMATOCRIT (BEAKER) (test code = 26.5 % 34.1-44.9 L 411) POCT-GLUCOSE [id number] 16:31:00 Test Item Value Reference Range Interpretation Comments POC-GLUCOSE METER 191 mg/dL 70-110 H TESTED AT [place] [id number] ([facility]) (test code = [facility] [place] 1538) [address] BLOOD GAS, [id number] 16:26:00 Test Item Value Reference Range Interpretation [...] (BEAKER) (test code = 1819) 40.0 % [id number] 13:48:00 Test Item Value Reference Range Interpretation Comments MAGNESIUM (BEAKER) 2.2 mg/dL 1.6-2.6 Specimen slightly (test code = 627) hemolyzed [id number] 13:48:00 Test Item Value Reference Range Interpretation Comments PHOSPHORUS (BEAKER) 4.2 mg/dL 2.3-4.7 Specimen slightly (test code = 604) hemolyzed BASIC METABOLIC [id number] 13:48:00 Test Item Value Reference Range Interpretation [...] APPLICABLE FOR DIALYSIS PATIEN TS. LACTIC ACID, [id number] 13:42:00 Test Item Value Reference Range Interpretation Comments LACTATE BLOOD 1.1 mmol/L 0.5-2.2 Specimen sligh tly ARTERIAL (2) (BEAKER) hemoly zed (test code = 2874) RAD, CHEST, 1 VIEW, NON [id number] 13:35:00Reason for exam:->POST OPShould this be performed [...] port Verified Date/Time: 08/05/2018 13:35:26 Reading Location: [facility] Radiology Reading Room CBC W/PLT COUNT & AUTO [id number] 13:33:00 Test Item Value Reference Range Interpretation [...] (BEAKER) (test code = 2801) BLOOD GAS, [id number] 13:27:00 Test Item Value Reference Range Interpretation [...] code = 1819) 60.0 % OXYGEN SATURATION, [id number] 13:21:00 Test Item Value Reference Range Interpretation Comments O2 SATURATION (MEASURED) (BEAKER) 64.2 % (test code = 1455) [id number] 12:22:00 Test Item Value Reference Range Interpretation Comments FIBRINOGEN LEVEL (BEAKER) (test 225 mg/dl 225-434 code = 658) [id number] 12:22:00 Test Item Value Reference Range Interpretation Comments PARTIAL THROMBOPLASTIN TIME 33.4 seconds 22.5-36.0 (BEAKER) (test code = 760) PROTHROMBIN [id number] 12:21:00 Test Item Value Reference Range Interpretation [...] MEAN CORPUSCULAR HEMOGLOBIN CONC 33.4 GM/DL 32.2-35.5 ([facility]) (test code = 752) RED CELL DISTRIBUTION WIDTH 20.4 % 11.7-14.4 H ([facility]) (test code = 412) PLATELET COUNT ([facility]) (test 117 K/CU MM 150-450 L code = 756) MEAN PLATELET VOLUME (AKER) 10.5 fL 9.4-12.3 (test code = 754) NUCLEATED RED BLOOD CELLS 1 /100 WBC 0-0 H ([facility]) (test code = 413) [id number] 11:30:00 Test Item Value Reference Range Interpretation Comments ACTIVATED CLOTTING TIME 109 sec TEST ED AT [place] [address] ([facility]) (test code = ZAIRESABA Huong [facility]) [address] [id number] 11:30:00 Test Item Value Reference Range Interpretation Comments ACTIVATED CLOTTING TIME 433 sec TEST ED AT [place] [address] ([facility]) (test code = ZAIRESABA [facility]) [address] [id number] 11:30:00 Test Item Value Reference Range Interpretation Comments ACTIVATED CLOTTING TIME 532 sec TEST ED AT [place] [address] ([facility]) (test code = ZAIRESABA Huong [place] [address]) [address] [id number] 11:30:00 Test Item Value Reference Range Interpretation Comments ACTIVATED CLOTTING TIME 648 sec TEST ED AT [place] [address] ([facility]) (test code = ZAIRESABA Huong [place] [address]) [address] [id number] 11:30:00 Test Item Value Reference Range Interpretation Comments ACTIVATED CLOTTING TIME 483 sec TEST ED AT [place] [address] ([facility]) (test code = ZAIRESABA Borja [place] [address]) [address] [id number] 11:30:00 Test Item Value Reference Range Interpretation Comments ACTIVATED CLOTTING TIME 395 sec TEST ED AT [place] [address] ([facility]) (test code = DAVE Borja [place] [address]) [address] CALCIUM, [id number] 11:21:00 Test Item Value Reference Range Interpretation Comments CALCIUM IONIZED ([facility]) (test 1.31 mmol/L 1.12-1.27 H code = 698) PH, BLOOD (BEAKER) (test code = 7.38 1810) BLOOD GAS, [id number] 11:21:00 Test Item Value Reference Range Interpretation [...] code = 1819) 100.0 % SODIUM NA-STAT [id number] 11:21:00 Test Item Value Reference Range Interpretation Comments SODIUM (BEAKER) (test code = 381) 134 meq/L 135-148 L GLUCOSE-STAT [id number] 11:21:00 Test Item Value Reference Range Interpretation Comments GLUCOSE RANDOM (BEAKER) (test code 185 mg/dL 70-110 H = 652) HGB/HCT (H&H) - STAT [id number] 11:21:00 Test Item Value Reference Range Interpretation Comments HEMOGLOBIN (BEAKER) (test code = 8.6 g/dL 12.0-15.0 L 410) HEMATOCRIT (BEAKER) (test code = 25.0 % 36.0-45.0 L 411) POTASSIUM-STAT [id number] 11:20:00 Test Item Value Reference Range Interpretation Comments POTASSIUM (BEAKER) (test code = 3.8 meq/L 3.6-5.5 379) POTASSIUM-STAT [id number] 10:50:00 Test Item Value Reference Range Interpretation Comments POTASSIUM (BEAKER) (test code = 4.7 meq/L 3.6-5.5 379) BLOOD GAS, [id number] 10:50:00 Test Item Value Reference Range Interpretation [...] code = 1819) 65.0 % SODIUM NA-STAT [id number] 10:50:00 Test Item Value Reference Range Interpretation Comments SODIUM (BEAKER) (test code = 381) 132 meq/L 135-148 L GLUCOSE-STAT [id number] 10:50:00 Test Item Value Reference Range Interpretation Comments GLUCOSE RANDOM (BEAKER) (test code 185 mg/dL 70-110 H = 652) HGB/HCT (H&H) - STAT [id number] 10:50:00 Test Item Value Reference Range Interpretation Comments HEMOGLOBIN (BEAKER) (test code = 9.2 g/dL 12.0-15.0 L 410) HEMATOCRIT (BEAKER) (test code = 27.0 % 36.0-45.0 L 411) POTASSIUM-STAT [id number] 10:23:00 Test Item Value Reference Range Interpretation Comments POTASSIUM (BEAKER) (test code = 5.2 meq/L 3.6-5.5 379) BLOOD GAS, [id number] 10:23:00 Test Item Value Reference Range Interpretation [...] (test code = 1819) 65.0 % GLUCOSE-STAT [id number] 10:23:00 Test Item Value Reference Range Interpretation Comments GLUCOSE RANDOM (BEAKER) (test code 170 mg/dL 70-110 H = 652) HGB/HCT (H&H) - STAT [id number] 10:23:00 Test Item Value Reference Range Interpretation Comments HEMOGLOBIN (BEAKER) (test code = 8.9 g/dL 12.0-15.0 L 410) HEMATOCRIT (BEAKER) (test code = 26.0 % 36.0-45.0 L 411) SODIUM NA-STAT [id number] 10:23:00 Test Item Value Reference Range Interpretation Comments SODIUM (BEAKER) (test code = 381) 132 meq/L 135-148 L BLOOD GAS, [id number] 09:58:00 Test Item Value Reference Range Interpretation [...] code = 1819) 60.0 % SODIUM NA-STAT [id number] 09:58:00 Test Item Value Reference Range Interpretation Comments SODIUM (BEAKER) (test code = 381) 132 meq/L 135-148 L GLUCOSE-STAT [id number] 09:58:00 Test Item Value Reference Range Interpretation Comments GLUCOSE RANDOM (BEAKER) (test code 160 mg/dL 70-110 H = 652) HGB/HCT (H&H) - STAT [id number] 09:58:00 Test Item Value Reference Range Interpretation Comments HEMOGLOBIN (BEAKER) (test code = 8.9 g/dL 12.0-15.0 L 410) HEMATOCRIT (BEAKER) (test code = 26.0 % 36.0-45.0 L 411) POTASSIUM-STAT [id number] 09:56:00 Test Item Value Reference Range Interpretation Comments POTASSIUM (BEAKER) (test code = 4.8 meq/L 3.6-5.5 379) BLOOD GAS, [id number] 09:29:00 Test Item Value Reference Range Interpretation [...] code = 1819) 80.0 % SODIUM NA-STAT [id number] 09:29:00 Test Item Value Reference Range Interpretation Comments SODIUM (BEAKER) (test code = 381) 131 meq/L 135-148 L GLUCOSE-STAT [id number] 09:29:00 Test Item Value Reference Range Interpretation Comments GLUCOSE RANDOM (BEAKER) (test code 180 mg/dL 70-110 H = 652) HGB/HCT (H&H) - STAT [id number] 09:29:00 Test Item Value Reference Range Interpretation Comments HEMOGLOBIN (BEAKER) (test code = 7.1 g/dL 12.0-15.0 L 410) HEMATOCRIT (BEAKER) (test code = 21.0 % 36.0-45.0 L 411) POTASSIUM-STAT [id number] 09:28:00 Test Item Value Reference Range Interpretation Comments POTASSIUM (BEAKER) (test code = 5.1 meq/L 3.6-5.5 379) CALCIUM, [id number] 08:02:00 Test Item Value Reference Range Interpretation Comments CALCIUM IONIZED (BEAKER) (test 1.14 mmol/L 1.12-1.27 code = 698) PH, BLOOD (BEAKER) (test code = 7.54 1810) BLOOD GAS, [id number] 08:02:00 Test Item Value Reference Range Interpretation [...] code = 1819) 100.0 % SODIUM NA-STAT [id number] 08:02:00 Test Item Value Reference Range Interpretation Comments SODIUM (BEAKER) (test code = 381) 134 meq/L 135-148 L HGB/HCT (H&H) - STAT [id number] 08:02:00 Test Item Value Reference Range Interpretation Comments HEMOGLOBIN (BEAKER) (test code = 11.2 g/dL 12.0-15.0 L 410) HEMATOCRIT (BEAKER) (test code = 33.0 % 36.0-45.0 L 411) GLUCOSE-STAT [id number] 08:01:00 Test Item Value Reference Range Interpretation Comments GLUCOSE RANDOM (BEAK[facility]) (test code 106 mg/dL 70-110 = 652) POTASSIUM-STAT [id number] 08:01:00 Test Item Value Reference Range Interpretation Comments POTASSIUM (BEAKER) (test code = 3.8 meq/L 3.6-5.5 379) POCT-GLUCOSE [id number] 05:58:00 Test Item Value Reference Range Interpretation Comments POC-GLUCOSE METER 114 mg/dL 70-[address] [facility] 6720 (BEAKER) (test code = [facility] 1538) [address] TISSUE [id number] 15:29:00Surgical Pathology Report Case: [id number] Authorizing Provider: Sabas Aquino, Collected: 07/28/2018 141Lacie SMITH Ordering Location: [facility] Received: 07/28/2018 1614 PERIOPERATIVE SERVICES Pathologist: Alvaro Chavez MD Specimen: Plaque, Carotid PART A RIGHT CAROTIDPLAQUE, ENDARTERECTOMY:CALCIFIC ATHEROSCLEROSIS. Signing Pathologist Direct Phone Line: [phone] signed by Alvaro Chavez MD on 08/02/2018 at 3:29 [id number], [id number] stenosis, rightRight carotidA. Received in formalin labeled "carotid" a 3 x 1.3 x 1 cm foreman-pink vascular segment. Foreman- yellow and calcified plaque is identified. Solar Sales Manager sections are submitted in cassette A1 following decalcification. CG/pl Performed.POCT-GLUCOSE METER 2018-07-31 16:25:00 Test Item Value Reference Range Interpretation Comments POC-GLUCOSE METER 173 mg/dL 70-110 H TESTED AT [place] [address] ([facility]) (test code = [facility] Huong [facility] 1538) [address] POCT-GLUCOSE [id number] 12:08:00 Test Item Value Reference Range Interpretation Comments POC-GLUCOSE METER 194 mg/dL 70-110 H TESTED AT [place] [address] ([facility]) (test code = [facility] Huong [facility] 1538) [address] POCT-GLUCOSE [id number] 07:15:00 Test Item Value Reference Range Interpretation Comments POC-GLUCOSE METER 228 mg/dL 70-110 H TESTED AT [place] [address] ([facility]) (test code = [facility] Huong [facility] 1538) [address] CBC W/PLT COUNT & AUTO [id number] 06:14:00 Test Item Value Reference Range Interpretation Comments WHITE BLOOD CELL COUNT ([facility]) 6.6 K/ L 3.5-10.5 (test code = 775) RED BLOOD CELL COUNT ([facility]) 2.53 M/ L 3.93-5.22 L (test code [...] PERCENT (BEAKER) (test code = 2801) CALCIUM, [id number] 05:52:00 Test Item Value Reference Range Interpretation Comments CALCIUM IONIZED (BEAKER) (test 1.24 mmol/L 1.12-1.27 code = 698) PH, BLOOD (BEAKER) (test code = 7.40 1810) POCT-GLUCOSE [id number] 22:03:00 Test Item Value Reference Range Interpretation Comments POC-GLUCOSE METER 217 mg/dL 70-110 H TESTED AT [place] [address] ([facility]) (test code = DAVE Borja [facility] 1538) [address] POCT-GLUCOSE [id number] 17:53:00 Test Item Value Reference Range Interpretation Comments POC-GLUCOSE METER 252 mg/dL 70-110 H TESTED AT [place] [address] ([facility]) (test code = DAVE Borja [facility] 1538) [address] RAD, ABDOMEN/KUB, 1 VIEW [id number] 15:31:00Reason for exam:->nauseaFINAL REPORT EXAM: Frontal chest [...] MDReport Verified Date/Time: 07/30/2018 15:31:29 Reading Location: [facility] Electronically signed by: GURMEET VELAZCO on 03:31 PMPOCT-GLUCOSE [id number] 12:34:00 Test Item Value Reference Range Interpretation Comments POC-GLUCOSE METER 244 mg/dL 70-110 H TESTED AT [place] [address] [facility] (test code = DAVE Borja [facility] 1538) [address] POCT-GLUCOSE [id number] 09:16:00 Test Item Value Reference Range Interpretation Comments POC-GLUCOSE METER 237 mg/dL 70-[address] [facility] 6720 [facility] (test code = DAVE Borja [facility] 1538) [address] CALCIUM, [id number] 06:24:00 Test Item Value Reference Range Interpretation Comments CALCIUM IONIZED (BEAKER) (test 1.22 mmol/L 1.12-1.27 code = 698) PH, BLOOD [facility] (test code = 7.39 1810) [id number] 05:34:00 Test Item Value Reference Range Interpretation Comments PHOSPHORUS (BEAKER) (test code = 2.4 mg/dL 2.3-4.7 604) [id number] 05:34:00 Test Item Value Reference Range Interpretation Comments MAGNESIUM (BEAKER) (test code = 1.5 mg/dL 1.6-2.6 L 627) BASIC METABOLIC [id number] 05:34:00 Test Item Value Reference Range Interpretation [...] PATIEN TS. CBC W/PLT COUNT & AUTO [id number] 05:27:00 Test Item Value Reference Range Interpretation [...] PERCENT (BEAKER) (test code = 2801) POCT-GLUCOSE [id number] 21:42:00 Test Item Value Reference Range Interpretation Comments POC-GLUCOSE METER 186 mg/dL 70-[address] [facility] 6720 [facility] (test code = [facility] [place] 1538) [address] POCT-GLUCOSE [id number] 18:04:00 Test Item Value Reference Range Interpretation Comments POC-GLUCOSE METER 162 mg/dL 70-[address] [facility] 6720 (BEAKER) (test code = [facility] [place] 1538) [address] POCT-GLUCOSE [id number] 13:39:00 Test Item Value Reference Range Interpretation Comments POC-GLUCOSE METER 109 mg/dL 70-110 TESTED AT [place] [address] ([facility]) (test code = DAVE Borja [place] 1538) [address] POCT-GLUCOSE [id number] 13:39:00 Test Item Value Reference Range Interpretation Comments POC-GLUCOSE METER 169 mg/dL 70-110 H TESTED AT [place] [address] ([facility]) (test code = DAVE Borja [place] 1538) [address] POCT-GLUCOSE [id number] 13:39:00 Test Item Value Reference Range Interpretation Comments POC-GLUCOSE METER 202 mg/dL 70-110 H TESTED AT [place] [address] ([facility]) (test code = DAVE Borja [place] 1538) [address] POCT-GLUCOSE [id number] 12:28:00 Test Item Value Reference Range Interpretation Comments POC-GLUCOSE METER 175 mg/dL 70-110 H TESTED AT [place] [address] ([facility]) (test code = DAVE Borja [place] 1538) [address] POCT-GLUCOSE [id number] 10:45:00 Test Item Value Reference Range Interpretation Comments POC-GLUCOSE METER 181 mg/dL 70-110 H TESTED AT [place] [address] ([facility]) (test code = DAVE Borja [facility] 1538) [address] POCT-GLUCOSE [id number] 09:08:00 Test Item Value Reference Range Interpretation Comments POC-GLUCOSE METER 90 mg/dL 70-110 TESTED AT [place] [address] ([facility]) (test code = DAVE Borja [facility] [address] 1538) POCT-GLUCOSE [id number] 09:08:00 Test Item Value Reference Range Interpretation Comments POC-GLUCOSE METER 78 mg/dL 70-110 TESTED AT [place] [address] ([facility]) (test code = DAVE Borja [facility] [address] 1538) RAD, CHEST, 1 VIEW, NON [id number] 07:37:00Reason for exam:->POST OPShould this be performed at the bedside?->YesFINAL REPORT CLINICAL HISTORY: POST OP TECHNIQUE: 1 view of the chest. COMPARISON: 07/28/2018 IMPRESSION: There are increased bilateral airspace opacities with suspected trace bilateral pleural effusions. The cardiomediastinal silhouette is magnified by technique. Signed: Annamaria Vargas MDReport Verified Date/Time: 07/29/2018 07:37:56 Reading Location: [facility] Radiology Reading Room PHOSPHORUS 2018-07-29 07:21:00 Test Item Value Reference Range Interpretation Comments PHOSPHORUS (BEAKER) (test code = 2.9 mg/dL 2.3-4.7 604) [id number] 07:21:00 Test Item Value Reference Range Interpretation Comments MAGNESIUM (BEAKER) (test code = 2.0 mg/dL 1.6-2.6 627) BASIC METABOLIC [id number] 07:21:00 Test Item Value Reference Range Interpretation [...] APPLICABLE FOR DIALYSIS PATIEN TS. BLOOD GAS, [id number] 06:00:00 Test Item Value Reference Range Interpretation [...] 44.0 % CBC W/PLT COUNT & AUTO [id number] 04:44:00 Test Item Value Reference Range Interpretation [...] (BEAKER) (test code = 2801) BLOOD GAS, [id number] 04:28:00 Test Item Value Reference Range Interpretation [...] (test code = 1819) 36.0 % CALCIUM, [id number] 04:27:00 Test Item Value Reference Range Interpretation Comments CALCIUM IONIZED (BEAKER) (test 1.22 mmol/L 1.12-1.27 code = 698) PH, BLOOD (BEAKER) (test code = 7.41 1810) POCT-GLUCOSE [id number] 01:35:00 Test Item Value Reference Range Interpretation Comments POC-GLUCOSE METER 220 mg/dL 70-[address] [facility] 6720 (BEAKER) (test code = DAVE [place] 1538) [address] POCT-GLUCOSE [id number] 01:35:00 Test Item Value Reference Range Interpretation Comments POC-GLUCOSE METER 258 mg/dL 70-[address] [facility] 6720 (BEAKER) (test code = DAVE [place] 1538) [address] POCT-GLUCOSE [id number] 01:35:00 Test Item Value Reference Range Interpretation Comments POC-GLUCOSE METER 263 mg/dL 70-[address] [facility] 6720 (BEAKER) (test code = DAVE [place] 1538) [address] BLOOD GAS, [id number] 01:24:00 Test Item Value Reference Range Interpretation [...] code = 1819) 36.0 % SODIUM NA-STAT [id number] 01:24:00 Test Item Value Reference Range Interpretation Comments SODIUM (BEAKER) (test code = 381) 134 meq/L 135-148 L GLUCOSE-STAT [id number] 01:24:00 Test Item Value Reference Range Interpretation Comments GLUCOSE RANDOM (BEAKER) (test code 195 mg/dL 70-110 H = 652) HGB/HCT (H&H) - STAT [id number] 01:24:00 Test Item Value Reference Range Interpretation Comments HEMOGLOBIN (BEAKER) (test code = 11.8 g/dL 12.0-15.0 L 410) HEMATOCRIT (BEAKER) (test code = 35.0 % 36.0-45.0 L 411) POTASSIUM-STAT [id number] 01:22:00 Test Item Value Reference Range Interpretation Comments POTASSIUM (BEAKER) (test code = 4.9 meq/L 3.6-5.5 379) POCT-GLUCOSE [id number] 22:27:00 Test Item Value Reference Range Interpretation Comments POC-GLUCOSE METER 235 mg/dL 70-[address] [facility] 6720 (BEAKER) (test code = DAVE Borja [place] 1538) [address] LACTIC ACID, [id number] 21:01:00 Test Item Value Reference Range Interpretation Comments LACTATE BLOOD 0.9 mmol/L 0.5-2.2 Specimen sligh tly ARTERIAL (2) (BEAKER) hemoly zed (test code = 2874) [id number] 20:58:00 Test Item Value Reference Range Interpretation Comments MAGNESIUM (BEAKER) 2.4 mg/dL 1.6-2.6 Specimen slightly (test code = 627) hemolyzed BLOOD GAS, [id number] 20:23:00 Test Item Value Reference Range Interpretation [...] (test code = 1819) 26.0 % GLUCOSE-STAT [id number] 20:23:00 Test Item Value Reference Range Interpretation Comments GLUCOSE RANDOM (BEAKER) (test code 223 mg/dL 70-110 H = 652) SODIUM NA-STAT [id number] 20:21:00 Test Item Value Reference Range Interpretation Comments SODIUM (BEAKER) (test code = 381) 136 meq/L 135-148 POTASSIUM-STAT [id number] 20:21:00 Test Item Value Reference Range Interpretation Comments POTASSIUM (BEAKER) (test code = 4.1 meq/L 3.6-5.5 379) HGB/HCT (H&H) - STAT [id number] 20:21:00 Test Item Value Reference Range Interpretation Comments HEMOGLOBIN (BEAKER) (test code = 12.2 g/dL 12.0-15.0 410) HEMATOCRIT (BEAKER) (test code = 36.0 % 36.0-45.0 411) CALCIUM, [id number] 20:21:00 Test Item Value Reference Range Interpretation Comments CALCIUM IONIZED (BEAKER) (test 1.25 mmol/L 1.12-1.27 code = 698) PH, BLOOD (BEAKER) (test code = 7.34 1810) RAD, CHEST, 1 VIEW, NON [id number] 18:36:00Reason for exam:->POST OPShould this be performed [...] MDReport Verified Date/Time: 07/28/2018 18:36:16 Reading Location: [address] Consult Reading Room POCT-GLUCOSE [id number] 16:38:00 Test Item Value Reference Range Interpretation Comments POC-GLUCOSE METER 215 mg/dL 70-[address] [facility] 6720 (BEAKER) (test code = DAVE Borja [place] 1538) [address] [id number] 15:42:00 Test Item Value Reference Range Interpretation Comments PHOSPHORUS (BEAKER) (test code = 3.5 mg/dL 2.3-4.7 604) [id number] 15:42:00 Test Item Value Reference Range Interpretation Comments MAGNESIUM (BEAKER) (test code = 1.3 mg/dL 1.6-2.6 L 627) BASIC METABOLIC [id number] 15:42:00 Test Item Value Reference Range Interpretation [...] APPLICABLE FOR DIALYSIS PATIEN TS. LACTIC ACID, [id number] 15:38:00 Test Item Value Reference Range Interpretation Comments LACTATE BLOOD 1.3 mmol/L 0.5-2.2 Specimen sligh tly ARTERIAL (2) (BEAKER) hemoly zed (test code = 2874) [id number] 15:36:00 Test Item Value Reference Range Interpretation [...] PERCENT (BEAKER) (test code = 2801) GLUCOSE-STAT [id number] 15:33:00 Test Item Value Reference Range Interpretation Comments GLUCOSE RANDOM (BEAKER) (test code 231 mg/dL 70-110 H = 652) BLOOD GAS, [id number] 15:31:00 Test Item Value Reference Range Interpretation [...] code = 1819) 44.0 % SODIUM NA-STAT [id number] 15:31:00 Test Item Value Reference Range Interpretation Comments SODIUM (BEAKER) (test code = 381) 135 meq/L 135-148 POTASSIUM-STAT [id number] 15:31:00 Test Item Value Reference Range Interpretation Comments POTASSIUM (BEAKER) (test code = 4.0 meq/L 3.6-5.5 379) HGB/HCT (H&H) - STAT [id number] 15:31:00 Test Item Value Reference Range Interpretation Comments HEMOGLOBIN (BEAKER) (test code = 12.2 g/dL 12.0-15.0 410) HEMATOCRIT (BEAKER) (test code = 36.0 % 36.0-45.0 411) [id number] 08:00:00 Test Item Value Reference Range Interpretation Comments MAGNESIUM (BEAKER) (test code = 1.9 mg/dL 1.6-2.6 627) BASIC METABOLIC [id number] 08:00:00 Test Item Value Reference Range Interpretation [...] PATIEN TS. CBC W/PLT COUNT & AUTO [id number] 07:23:00 Test Item Value Reference Range Interpretation [...] PERCENT (BEAKER) (test code = 2801) HEMOGLOBIN [id number] 23:04:00 Test Item Value Reference Range Interpretation Comments HEMOGLOBIN A1C (BEAKER) (test code = 7.7 % 4.3-6.1 H 368) POCT-GLUCOSE [id number] 23:03:00 Test Item Value Reference Range Interpretation Comments POC-GLUCOSE METER 261 mg/dL 70-[address] [facility] 6720 (BEAKER) (test code = DAVE Borja [facility] 1538) [address] COMPREHENSIVE METABOLIC [id number] 21:58:00 Test Item Value Reference Range Interpretation [...] PATIEN TS. CBC W/PLT COUNT & AUTO [id number] 21:33:00 Test Item Value Reference Range Interpretation [...] 0-1 PERCENT (BEAKER) (test code = 2801) [id number] 06:54:004.93[facility] [id number] 06:54:0028 [facility] [id number] 06:54:97037Gzwebmkf [id number] 06:54:0050[facility] [id number] 06:54:80451Uljjasjh HermannLIPIDS 2014-11-09 06:54:004.22[facility] [id number] 06:54:20388Bkhqqjxp HermannSPECIAL [id number] 06:54:009.1[facility] HermannTHYROID PANEL 2014-11-09 06:54:001.850[facility] HermannCHEM [id number] 06:54:0056[facility] HermannCHEM [id number] 06:54:000.3[facility] HermannCHEM [id number] 06:54:0037[facility] HermannCHEM [id number] 06:54:0025[facility] HermannCHEM [id number] 06:54:0071[facility] HermannCHEM [id number] 06:54:0025 [facility] HermannCHEM [id number] 06:54:008.8[facility] HermannCHEM PANEL 2014-11-09 06:54:006.8[facility] HermannCHEM [id number] 06:54:003.0[facility] HermannCHEM [id number] 06:54:42275Vcglvadx HermannCHEM [id number] 06:54:26463Hzwgtuge HermannCHEM [id number] 06:54:003.6[facility] HermannCHEM [id number] 06:54:0025[facility]annCHEM TXBAZ4442-19-61 06:54:001.0 [facility]CHE[facility] PXEHA8132-43-08 06:54:79471Ifprcucu HermannCHEM PANEL 2014-11-09 06:54:000.8[facility]annCHEM GMKMB0324-15-32 06:54:0010.6[facility]annCHEM ZZSFU9417-31-69 06:54:0025[facility]annCHE[facility] MYIAX3391-31-22 06:54:003.8[facility] EsqtckzVFJISDCHOD3571-21-83 06:54:003.5[facility] CAAYBHJXVW0985-11-36 06:54:001.5[facility] JgwvohuPBDDHKEWMW8739-00-34 06:54:000.2 [facility] McxudtiDBYFHAIORX6355-93-31 06:54:000.1[facility]annHEMATOLOGY 2014-11-09 06:54:005.9[facility] BhwwtcoZPQEUOBUHO8769-76-65 06:54:0031.4[facility] EsgxhnxVKXRCTQMAP8220-50-21 06:54:000.7[facility] VmhgjplKLZFSWTYCR1966-18-34 06:54:0013.2[facility] DkecqixBXOYXYUDFR2880-56-35 06:54:0053.0[facility] KDKKBRDCHK4723-97-96 06:54:001.7[facility] KhmvlaeQWQMFKYQXI7410-46-34 06:54:009.5 [facility] QkmvarfENIMGSXFEE5327-65-27 06:54:29014Nmainzyx HermannHEMATOLOGY 2014-11-09 06:54:0032.5[facility] GfgudzoQCLRJGWRMN1273-05-58 06:54:0014.9[facility] AvxqedqXOSTRSFBJW5273-83-02 06:54:0088.9[facility] DyhmblvGPTETZCRXC6572-28-59 06:54:00 Test Item Value Reference Range Interpretation Comments MCH (test code = MCH) 28.9 pg 27.0-31.0 [facility] OvsclecCKGNMFGVHY3152-71-13 06:54:0011.1[facility]annHEMATOLOGY 2014-11-09 06:54:0043.8[facility] MkzxcutMEKDAEJYQD6255-55-81 06:54:0014.2[facility] HermannCARDIAC TUGUHNU7024-06-71 21:20:0075[facility]annCARDIAC ENZYMES 2014-11-08 21:20:000.05[facility]annCARDIAC IEZNFPP3550-35-23 21:20:001.0 [facility]annCARDIAC XQYRQAJ0360-69-29 21:20:001.3[facility]annCHEM PANEL 2014-11-08 21:20:0042[facility]annCHEM PJIMG9769-69-24 21:20:001.0[facility]annCHEM WECSE5050-42-55 21:20:0030[facility]annCHEM LURTX5771-39-26 21:20:01483Mkgsacow HermannCHEM OZIDK8969-54-18 21:20:0023[facility]annCHEM BCKSZ1437-31-60 21:20:72910Puhrlevt HermannCHEM VFJAJ4460-88-99 21:20:61153 [facility]annCHEM FICYU7823-64-08 21:20:004.6[facility]annCHEM PANEL 2014-11-08 21:20:009.6[facility]annCHEM ZATXO6014-33-01 21:20:0013.6[facility] XckxonxWUBORHHWML7842-83-51 21:20:00 Test Item Value Reference Range Interpretation Comments PTT (test code = PTT) 24.4 s 22.9-35.8 [facility] EvjuocnHQYYPUCPMV9337-87-77 21:20:000.93[facility]annHEMATOLOGY 2014-11-08 21:20:00 Test Item Value Reference Range Interpretation Comments PT (test code = PT) 12.8 s 12.0-14.7 [facility] [id number] 21:20:00 Test Item Value Reference Range Interpretation Comments MCH (test code = MCH) 28.9 pg 27.0-31.0 [facility] [id number] 21:20:0088.6[facility] 2014-11-08 21:20:0046.4[facility] MbsjmxzSHVTVPFOXK4771-37-21 21:20:0032.7[facility] ZzeydtyBRPPDFISFK0364-14-15 21:20:0015.2[facility] KlfqxnaZNQUCYDOFO5969-50-23 21:20:96341Qikhjzic JotfmwrECDJEVTBGZ3625-15-88 21:20:0014.7[facility] [place] [id number] 21:20:009.2[facility] EwiqvfuIDQDICSLBW1488-45-65 21:20:00 13.3[facility] LhekcgnUPCXOOJADZ4425-57-89 21:20:005.24[facility] 2014-11-08 21:20:001.6[facility] JdemzxuSYJINVFVYH9218-83-90 21:20:002.1[facility] WheaoleXWTPEPKBGX0450-57-30 21:20:009.4[facility] AayhmrbPJATHRDTTH6652-96-04 21:20:000.8[facility] MskvfiqYMNPKVHLUY6255-95-52 21:20:000.8[facility] HMUGWKZEWR7525-60-30 21:20:000.1[facility] RdklqtyYKYJOAFVUH2056-75-18 21:20:000.1 [facility] QhapclzFLURNFGPOR1150-28-73 21:20:0012.0[facility]ann[facility]MATOLOGY 2014-11-08 21:20:0015.7[facility] SmiixgvWEZJGGFHRW9905-09-22 21:20:0070.7[facility]
[2021-03-22 22:44] LABS: Absolute Lymphocytes (CBC) 1.5 K/uL (0.7-4.9); Hematocrit 38.9 % (36.0-45.0); Lymphocytes % 27.7 % (15.3-44.8); MPV 10.3 fL (7.6-11.3)
[2021-03-22 22:45] LABS: Protime INR 1.64
[2021-03-22 23:14] LABS: Blood Morphology Comment NOTED (NOT SEEN); Macrocytosis 2+; Platelet Estimate ADEQ; Platelets, Giant OCC; White Blood Cell Scan OK (OK)
[2021-03-23 00:08] LABS: SARS-COV-2 RT PCR NEGATIVE (NEGATIVE)
[2021-03-23 00:40] LABS: ALT/SGPT 31 U/L (12-78); Albumin 3.2 g/dL (3.4-5.0); Alkaline Phosphatase 109 U/L (45-117); BUN Blood Urea Nitrogen 54 mg/dL (7-18); Bicarbonate 27 mmol/L (21-32); Bilirubin Direct < 0.1 mg/dL (0-0.2); Bilirubin Total 0.5 mg/dL (0.2-1.0); Glucose Level 120 mg/dL (74-106); NT PRO-BNP 1263 pg/mL (<450); Potassium 4.7 mmol/L (3.5-5.1); Protein, Total 7.9 g/dL (6.4-8.2); Sodium Level 138 mmol/L (136-145)
[2021-03-23 00:41] LABS: AST/SGOT 37 U/L (15-37); Magnesium 2.2 mg/dL (1.8-2.4)
--- NOTE | 2021-03-23 01:08 | ER ---
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 Chief complaint:. Coronavirus screen: Vaccine status: Patient reports receiving the 2nd dose of the covid vaccine. Ebola Screen: Patient negative for fever greater than or equal to 101.5 degrees Fahrenheit, and additional compatible Ebola Virus Disease symptoms. Initial Sepsis Screen: Does the patient meet any 2 criteria? No. Patient's initial sepsis screen is negative. Does the patient have a suspected source of infection? No. Patient's initial sepsis screen is negative. Risk Assessment: Do you want to hurt yourself or someone else? Patient reports no desire to harm self or others. Onset of symptoms was March 22, 2021 at 21:15. 21:56 Method Of Arrival: EMS: [facility] 21:56 Acuity: GORDO 2 Triage Assessment: 22:14 General: Appears in no apparent distress. Behavior is calm, cooperative. Pain: Complains of pain in chest Pain radiates to chest Pain currently is 9 out of 10 on a pain scale. at worst was 9 out of 10 on a pain scale. Quality of pain is described as sharp, Pain began 2-3 days ago. 22:14 Cardiovascular: Reports chest pain, Heart tones S1 S2 present Capillary refill < 3 mk seconds in bilateral fingers toes Pulses are 2+ in right radial artery and left radial artery Rhythm is with capture. Historical: - Allergies: 22:02 QUINOLONES; mk 22:02 Toajqpl-Gsr-Spn Reductase Inhibitors; mk 22:02 Amoxicillin; mk 22:02 ANGIOTENSIN RECEPTOR ANTAGONIST; mk 22:02 Hydrocodone-Acetaminophen; mk 22:02 Demerol; mk 22:02 Januvia; mk 22:02 Byetta; mk 22:02 Niaspan; 22:02 Tetanus Immune Globulin; 22:02 Zetia; 22:02 metformin; - Home Meds: 22:02 Eliquis 5 mg oral tab 1 tab 2 times per day [Active]; hydroxyurea 500 mg Oral cap 1 cap mk twice a day [Active]; pregabalin 75 mg Oral cap 1 cap 2 times per day [Active]; hydroxyzine HCl 25 mg Oral tab 1 tab twice a day [Active]; ropinirole 0.25 mg oral tab 2 tabs daily [Active]; spironolactone 25 mg Oral tab 1 tab once daily [Active]; furosemide 40 mg Oral tab 1 tab once daily [Active]; pantoprazole 20 mg oral TbEC 2 tabs once daily [Active]; atorvastatin 40 mg oral tab 1 tab once daily [Active]; tramadol 50 mg Oral tab 1 tab BID [Active]; - PMHx: 22:02 angina pectoris; CAD; CVA; Diabetes - NIDDM; Hyperlipidemia; Myocardial infarction; Hypertension; VENTRAL HERNIA; - Immunization history:: Adult Immunizations up to date. - Social history:: Smoking status: Reported history of juuling and/or vaping. Screenin:13 Abuse screen: Denies threats or abuse. Nutritional screening: No deficits noted. Tuberculosis screening: No symptoms or risk factors identified. Fall Risk No fall in past 12 months (0 pts). Secondary diagnosis (15 points) impaired mobility, IV access (20 points). Ambulatory Aid- None/Bed Rest/Nurse Assist (0 pts). Gait- Weak (10 pts.). Mental Status- Oriented to own ability (0 pts). Total Benítez Fall Scale indicates Low Risk Score (25-44 pts). Fall prevention measures have been instituted. Side Rails Up X 2 Placed close to Nursing Station. Assessment: 22:30 Pain: Complains of pain in chest Pain does not radiate. Pain currently is 10 out of 10 mk on a pain scale. Quality of pain is described as aching, Pain began 2-3 days ago. Neuro: Level of Consciousness is awake, alert, obeys commands, Oriented to person, place, time, situation, Condenser Winder are equal bilaterally Moves all extremities. Gait is steady, Facial symmetry appears normal, Pupils are PERRLA. 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 Cardiovascular: Heart tones S1 S2 present Capillary refill < 3 seconds in bilateral fingers toes Clubbing of nail beds is absent JVD is present Patient's skin is warm and dry. Pulses are 2+ in right radial artery, right dorsalis pedis artery, left radial artery and left dorsalis pedis artery Rhythm is atrial pacer Chest pain is described as Pain is 9 out of 10 on a pain scale. Respiratory: Airway is patent Trachea midline Respiratory effort is even, unlabored, Respiratory pattern is regular, symmetrical, Breath sounds are clear bilaterally. GI: Abdomen is non-distended. : No signs and/or symptoms were reported regarding the genitourinary system. Derm: Skin is intact, is healthy with good turgor, Skin is dry, Skin temperature is warm. Musculoskeletal: Circulation, motion, and sensation intact. Capillary refill < 3 seconds, in bilateral fingers. toes. Range of motion: limited in left hip, left knee, right hip and right knee. 23:30 Reassessment: No changes from previously documented assessment. Patient and/or family mk updated on plan of care and expected duration. Pain level reassessed. Patient is alert, oriented x 3, equal unlabored respirations, skin warm/dry/pink. 03/23 00:30 Reassessment: No changes from previously documented assessment. Patient and/or family mk updated on plan of care and expected duration. Pain level reassessed. Patient is alert, oriented x 3, equal unlabored respirations, skin warm/dry/pink. 01:30 Reassessment: Patient and/or family updated on plan of care and expected duration. Pain mk level reassessed. Patient is alert, oriented x 3, equal unlabored respirations, skin warm/dry/pink. Patient states symptoms have improved. 02:38 Reassessment: Patient and/or family updated on plan of care and expected duration. Pain mk level reassessed. Patient is alert, oriented x 3, equal unlabored respirations, skin warm/dry/pink. Patient states symptoms have improved. Vital Signs: 03/22 21:56 BP 112 / 80; Pulse 60; Resp 18; Temp 98.9(O); Pulse Ox 96% ; mk 23:00 BP 118 / 67; Pulse 60; Resp 18; Pulse Ox 97% on R/A; mk 03/23 00:05 BP 146 / 71; Pulse 61; Resp 18; Pulse Ox 95% on R/A; mk 01:18 BP 143 / 72; Pulse 60; Resp 18; Pulse Ox 98% ; Weight 116.3 kg; Height 5 ft. 4 in. (162.56 cm); 02:20 BP 131 / 77; Pulse 66; Resp 18; Pulse Ox 98% on R/A; mk 03:20 BP 116 / 57; Pulse 60; Resp 18; Pulse Ox 97% on R/A; mk 01:18 Body Mass Index 44.01 (116.30 kg, 162.56 cm) Sherri Coma Score: 03/22 23:00 Eye Response: spontaneous(4). Verbal Response: oriented(5). Motor Response: obeys mk commands(6). Total: 15. 15 00:05 Eye Response: spontaneous(4). Verbal Response: oriented(5). Motor Response: obeys mk commands(6). Total: 15. 01:18 Eye Response: spontaneous(4). Verbal Response: oriented(5). Motor Response: obeys mk commands(6). Total: 15. 02:20 Eye Response: spontaneous(4). Verbal Response: oriented(5). Motor Response: obeys mk commands(6). Total: 15. 03:20 Eye Response: spontaneous(4). Verbal Response: oriented(5). Motor Response: obeys mk commands(6). Total: 15. ED Course: 03/22 21:55 Patient arrived in ED. 21:55 Chey Mckee, RN is Primary Nurse. mk 22:02 Triage completed. mk 22:10 EKG completed in triage. Results shown to MD. mk 22:10 Arm band placed on Patient placed. mk 22:10 Maintain EMS IV. Dressing intact. Good blood return noted. Site clean \\T\\ dry. Gauge \\T\\ site: 20G LAC. 22:12 Harlan Lakhani MD is Attending Physician. 7 22:14 Patient has correct armband on for positive identification. Allergy band placed. Fall mk risk band placed. Placed in gown. Side rails up X 1. hydrometeorological technician on. Pulse ox on. NIBP on. 22:35 XRAY Chest (1 view) In Process Unspecified. EDMS 22:38 Basic Metabolic Panel Sent. sm5 22:38 CBC with Diff Sent. 5 22:38 LFT's Sent. 5 22:38 Magnesium Sent. 5 22:38 NT PRO-BNP Sent. 5 22:38 PT-INR Sent. 5 22:38 Troponin HS Sent. 5 23:25 COVID-19/FLU A+B (Document "Date of Onset" if Symptomatic) Sent. 5 23:25 COVID-19/FLU A+B Sent. [facility] 03/23 01:06 Frederick Gomez MD is Hospitalizing Provider. [facility] 01:50 Assisted to bedside commode. 02:41 Report given to Suzette DEE. 02:41 No provider procedures requiring assistance completed. Patient admitted, IV remains in mk place. Administered Medications: 01:08 CANCELLED (EMS gave 324mg PTAa): Aspirin Chewable Tablet 162 mg PO once 5 Outcome: 01:07 Decision to Hospitalize by Provider. [facility] 02:41 Admitted to Tele 02:41 Condition: stable 02:41 Instructed on the need for admit. 03:26 Patient left the ED. [facility] Signatures: Dispatcher [employer] Harlan Jason MD MD [facility] Vandana Khalil, RN RN [facility] Chey Mckee, RN RN
--- NOTE | 2021-03-23 01:08 | EDPHYS ---
Physician Documentation [facility] Name: Arminda Rodriguez Age: 81 yrs Sex: Female : 1940 Arrival Date: 03/22/2021 Time: 21:55 Bed 16 Private MD: ED Physician Harlan Lakhani HPI: 03/22 22:43 This 81 yrs old Female presents to ER via EMS with complaints of Chest pain. [facility] 22:43 The patient or guardian reports chest pain that is located primarily in the substernal mh7 area. Onset: yesterday. The pain does not radiate. Associated signs and symptoms: Pertinent positives: diaphoresis, nausea, near-syncope, shortness of breath, vomiting, Pertinent negatives: abdominal pain, cough, headache, lower extremity pain, lower extremity swelling, lightheadedness, palpitations, recent travel, syncope, vomiting. The chest pain is described as a heaviness, sharp. Duration: The patient or guardian reports multiple episodes, that are intermittent, that wax and wane, with no pattern. Modifying factors: The symptoms are alleviated by nothing. the symptoms are aggravated by nothing. Severity of pain: At its worst the pain was moderate yesterday, in the emergency department the pain has improved moderately. Historical: - Allergies: 22:02 QUINOLONES; mk 22:02 Flmtslu-Fdk-Rdx Reductase Inhibitors; mk 22:02 Amoxicillin; mk 22:02 ANGIOTENSIN RECEPTOR ANTAGONIST; mk 22:02 Hydrocodone-Acetaminophen; mk 22:02 Demerol; mk 22:02 Januvia; mk 22:02 Byetta; mk 22:02 Niaspan; mk 22:02 Tetanus Immune Globulin; mk 22:02 Zetia; mk 22:02 metformin; - Home Meds: 22:02 Eliquis 5 mg oral tab 1 tab 2 times per day [Active]; hydroxyurea 500 mg Oral cap 1 cap mk twice a day [Active]; pregabalin 75 mg Oral cap 1 cap 2 times per day [Active]; hydroxyzine HCl 25 mg Oral tab 1 tab twice a day [Active]; ropinirole 0.25 mg oral tab 2 tabs daily [Active]; spironolactone 25 mg Oral tab 1 tab once daily [Active]; furosemide 40 mg Oral tab 1 tab once daily [Active]; pantoprazole 20 mg oral TbEC 2 tabs once daily [Active]; atorvastatin 40 mg oral tab 1 tab once daily [Active]; tramadol 50 mg Oral tab 1 tab BID [Active]; - PMHx: 22:02 angina pectoris; CAD; CVA; Diabetes - NIDDM; Hyperlipidemia; Myocardial infarction; mk Hypertension; VENTRAL HERNIA; - Immunization history:: Adult Immunizations up to date. - Social history:: Smoking status: Reported history of juuling and/or vaping. ROS: 22:43 Constitutional: Negative for fever, chills, and weight loss, Eyes: Negative for injury, mh7 pain, redness, and discharge, ENT: Negative for injury, pain, and discharge, Neck: Negative for injury, pain, and swelling, Back: Negative for injury and pain, : Negative for injury, bleeding, discharge, and swelling, MS/Extremity: Negative for injury and deformity, Skin: Negative for injury, rash, and discoloration, Neuro: Negative for headache, weakness, numbness, tingling, and seizure, Psych: Negative for depression, anxiety, suicide ideation, homicidal ideation, and hallucinations, Allergy/Immunology: Negative for hives, rash, and allergies, Endocrine: Negative for neck swelling, polydipsia, polyuria, polyphagia, and marked weight changes, Hematologic/Lymphatic: Negative for swollen nodes, abnormal bleeding, and unusual bruising. Exam: 22:43 Constitutional: This is a well developed, well nourished patient who is awake, alert, mh7 and in no acute distress. Head/Face: Normocephalic, atraumatic. Eyes: Pupils equal round and reactive to light, extra-ocular motions intact. Lids and lashes normal. Conjunctiva and sclera are non-icteric and not injected. Cornea within normal limits. Periorbital areas with no swelling, redness, or edema. Neck: Trachea midline, no thyromegaly or masses palpated, and no cervical lymphadenopathy. Supple, full range of motion without nuchal rigidity, or vertebral point tenderness. No Meningismus. Chest/axilla: Normal chest wall appearance and motion. Nontender with no deformity. No lesions are appreciated. Cardiovascular: Regular rate and rhythm with a normal S1 and S2. No gallops, murmurs, or rubs. Normal PMI, no JVD. No pulse deficits. Respiratory: Lungs have equal breath sounds bilaterally, clear to auscultation and percussion. No rales, rhonchi or wheezes noted. No increased work of breathing, no retractions or nasal flaring. Abdomen/GI: Soft, non-tender, with normal bowel sounds. No distension or tympany. No guarding or rebound. No evidence of tenderness throughout. Back: No spinal tenderness. No costovertebral tenderness. Full range of motion. Skin: Warm, dry with normal turgor. Normal color with no rashes, no lesions, and no evidence of cellulitis. MS/ Extremity: Pulses equal, no cyanosis. Neurovascular intact. Full, normal range of motion. Neuro: Awake and alert, GCS 15, oriented to person, place, time, and situation. Cranial nerves II-XII grossly intact. Motor strength 5/5 in all extremities. Sensory grossly intact. Cerebellar exam normal. Normal gait. Psych: Awake, alert, with orientation to person, place and time. Behavior, mood, and affect are within normal limits. Vital Signs: 21:56 BP 112 / 80; Pulse 60; Resp 18; Temp 98.9(O); Pulse Ox 96% ; mk 23:00 BP 118 / 67; Pulse 60; Resp 18; Pulse Ox 97% on R/A; mk 15 00:05 BP 146 / 71; Pulse 61; Resp 18; Pulse Ox 95% on R/A; mk 01:18 BP 143 / 72; Pulse 60; Resp 18; Pulse Ox 98% ; Weight 116.3 kg; Height 5 ft. 4 in. (162.56 cm); 02:20 BP 131 / 77; Pulse 66; Resp 18; Pulse Ox 98% on R/A; mk 03:20 BP 116 / 57; Pulse 60; Resp 18; Pulse Ox 97% on R/A; mk 01:18 Body Mass Index 44.01 (116.30 kg, 162.56 cm) [place] Coma Score: 03/22 23:00 Eye Response: spontaneous(4). Verbal Response: oriented(5). Motor Response: obeys commands(6). Total: . 03/23 00:05 Eye Response: spontaneous(4). Verbal Response: oriented(5). Motor Response: obeys commands(6). Total: :18 Eye Response: spontaneous(4). Verbal Response: oriented(5). Motor Response: obeys mk commands(6). Total: 15. 02:20 Eye Response: spontaneous(4). Verbal Response: oriented(5). Motor Response: obeys mk commands(6). Total: 15. 03:20 Eye Response: spontaneous(4). Verbal Response: oriented(5). Motor Response: obeys mk commands(6). Total: 15. MDM: 00:57 Differential diagnosis: acute myocardial infarction, acute pericarditis, anxiety, mh7 coronary artery disease chest wall pain, congestive heart failure costochondritis, esophagitis, gastritis, gastroesophageal reflux disease (GERD), myocarditis, pancreatitis, peptic ulcer disease, pericarditis, pneumonia, stable angina, unstable angina. HEART Score: History: Moderately Suspicious (1), ECG: Non specific repolarization disturbance / LBTB / PM (1), Age: > or = 65 years (2), Risk Factors: > or = 3 Risk factors for atherosclerotic disease (2), [Hypercholesterolemia] [Hypertension] [DM] Troponin: > or = 3 x Normal Limit (2), Total Score = 9. Data reviewed: vital signs, nurses notes, EMS record, old medical records, lab test result(s), EKG, radiologic studies, plain films. Data interpreted: Pulse oximetry: on room air is 96 %. Interpretation: normal. Counseling: I had a detailed discussion with the patient and/or guardian regarding: the historical points, exam findings, and any diagnostic results supporting the discharge/admit diagnosis, lab results, radiology results, the need for further work-up and treatment in the hospital. Response to treatment: the patient's symptoms have mildly improved after treatment. 01:01 Physician consultation: Mihai Turner MD was contacted at 00:50, regarding patient's mh7 condition, and will see patient in inpatient room. ED course: Feels better, no acute distress, vital signs stable, no focal neurological deficits. No chest pain, shortness of breath, nausea, vomiting at this time. Discussed all test results and findings with the patient and answered all of her questions. Plan to admit with cardiology evaluation. Discussed with Dr. Turner who recommended holding Eliquis for now in favor of Lovenox. Patient last took Eliquis this evening, so we will begin Lovenox as inpatient.. 01:07 Patient medically screened. mh7 03/22 22:18 Order name: Basic Metabolic Panel; Complete Time: 00:44 [facility] 03/22 22:18 Order name: CBC with Diff; Complete Time: 23:29 [facility] 03/22 22:18 Order name: LFT's; Complete Time: 00:44 [facility] 03/22 22:18 Order name: Magnesium; Complete Time: 00:44 [facility] 03/22 22:18 Order name: NT PRO-BNP; Complete Time: 00:44 [facility] 03/22 22:18 Order name: PT-INR; Complete Time: 22:47 [facility] 03/22 22:18 Order name: Troponin HS; Complete Time: 00:44 [facility] 03/22 22:44 Order name: CBC Smear Scan; Complete Time: 23:29 [facility] 03/22 22:48 Order name: COVID-19/FLU A+B (Document "Date of Onset" if Symptomatic) [facility] 03/22 22:48 Order name: COVID-19/FLU A+B; Complete Time: 00:44 [facility] 03/23 01:20 Order name: Basic Metabolic Panel [facility] 03/23 01:20 Order name: CBC with Automated Diff [facility] 03/23 01:20 Order name: CKMB Creatine Kinase MB [facility] 03/23 01:20 Order name: PTT, Activated Partial Thromb [facility]OH 03/22 22:18 Order name: XRAY Chest (1 view) [facility] 03/22 22:18 Order name: EKG; Complete Time: 22:19 [facility] 03/22 22:18 Order name: Cardiac monitoring; Complete Time: 22:37 [facility] 03/22 22:18 Order name: EKG - Nurse/Tech; Complete Time: 22:37 [facility] 03/22 22:18 Order name: IV Saline Lock; Complete Time: 22:37 [facility] 03/22 22:18 Order name: Labs collected and sent; Complete Time: 22:37 [facility] 03/22 22:18 Order name: O2 Per Protocol; Complete Time: 22:37 [facility] 03/22 22:18 Order name: O2 Sat Monitoring; Complete Time: 22:37 [facility] 03/23 01:20 Order name: CONS Physician Consult EDOH 03/23 01:20 Order name: 60g Consistent Carbohydrate (ADA 1800/2000) [facility] 01/15 01:20 Order name: EKG Electrocardiogram EDMS 03/23 01:20 Order name: EKG Electrocardiogram EDMS 03/23 01:20 Order name: EKG Electrocardiogram EDMS 03/23 01:20 Order name: EKG Electrocardiogram EDOH Administered Medications: 01:08 CANCELLED (EMS gave 324mg PTAa): Aspirin Chewable Tablet 162 mg PO once sm5 Disposition Summary: 03/23/21 01:07 Hospitalization Ordered Hospitalization Status: Inpatient Admission [facility] Provider: Frederick Gomez [facility] Location: Telemetry/MedSurg (Inpatient) [facility] Condition: Stable [facility] Problem: new [facility] Symptoms: have improved [facility] Bed/Room Type: Standard [facility] Room Assignment: 229(03/23/21 01:53) mw Diagnosis - Subsequent non-ST elevation (NSTEMI) myocardial infarction [facility] - Acute kidney injury [facility] Forms: - Medication Reconciliation Form [facility] - SBAR form [facility] Signatures: Dispatcher [employer] EDOH Allie Beverly RN RN mw Holmes, Maurice, MD MD [facility] Chey Mckee RN RN mk Mazur, Sarah RN 5 Corrections: (The following items were deleted from the chart) 01:08 01:01 Aspirin Chewable Tablet 162 mg PO once ordered. [facility] 01:53 01:07 [facility] yunior
[2021-03-23] MEDS ORDERED: MORPHINE 4 MG/ML SYR IV PRN (01:13)
[2021-03-23] MEDS ORDERED: NITROGLYCERIN 0.4 MG/TAB SL PRN (01:13)
[2021-03-23] MEDS ORDERED: ONDANSETRON 4 MG/2 ML VIAL IV PRN (01:19)
[2021-03-23] MEDS: INSULIN -REGULAR HUMAN 50 UNIT/0.5 ML ML SQ SCH ×4 (06:00→21:43)
[2021-03-23] MEDS ORDERED: TRAMADOL HCL 50 MG TAB PO PRN ×2 (06:30→15:08)
--- NOTE | 2021-03-23 08:08 | RAD REPORT ---
EXAM DESCRIPTION: RAD - Chest Single View - 03/22/2021 10:35 pm CLINICAL HISTORY: CHEST PAIN COMPARISON: Chest Single View dated 12/29/2020; Chest Single View dated 12/29/2020; Chest Single Vie w dated 12/27/2020; Chest Single View dated 12/25/2020 FINDINGS: Lines: Pacemaker. Lungs: Prominence of the pulmonary interstitium. Pleural: No significant pleural effusions or pneumothorax. Cardiac: Mild cardiomegaly. Sternotomy. Bones: No acute fractures. Other: IMPRESSION: Probable mild interstitial edema.
[2021-03-23] MEDS ORDERED: TIMOLOL MALEATE 0.5% OPTH 5 ML BTL OPTH SCH (09:00)
[2021-03-23] MEDS: ROPINIROLE HCL 0.25 MG TAB PO SCH (09:00)
[2021-03-23] MEDS: TIMOLOL MALEATE 0.5% OPTH 5 ML BTL OPTH SCH ×2 (09:00→21:00)
[2021-03-23] MEDS: MAGNESIUM OXIDE 400 MG TAB PO SCH (09:00)
[2021-03-23] MEDS ORDERED: ASPIRIN EC 81 MG TAB PO SCH (09:00)
[2021-03-23] MEDS: INSULIN GLARGINE 100 UNIT/ML SQ SCH ×2 (09:00→21:38)
[2021-03-23] MEDS: PREGABALIN 75 MG CAP PO SCH ×2 (10:15→21:42)
[2021-03-23] MEDS: HYDROXYUREA 500 MG CAP PO SCH ×2 (10:15→21:37)
[2021-03-23] MEDS: PANTOPRAZOLE 40MG TABLET PO SCH (10:16)
[2021-03-23] MEDS: ATORVASTATIN 40 MG TAB PO SCH (10:16)
[2021-03-23] MEDS: VITAMIN D 5,000 UNIT CAP PO SCH (10:16)
[2021-03-23] MEDS: ASPIRIN 81 MG CHEWABLE TABLET PO SCH (10:16)
[2021-03-23] MEDS: Enoxaparin 120 MG/0.8 ML SYR SQ SCH (10:21)
[2021-03-23] MEDS: hydrOXYzine HCL 25 MG TAB PO SCH ×2 (10:21→21:37)
--- NOTE | 2021-03-23 11:51 | RAD REPORT ---
EXAM DESCRIPTION: US - Renal Ultrasound-Complete - 03/23/2021 11:44 am CLINICAL HISTORY: abnormal kidney funct COMPARISON: Chest Single View dated 03/20/2021; Chest Single View dated 03/19/2021; Chest Single View dated 03/18/2021; Chest Single View dated 03/17/2021bdomen Pelvis Wo Contrast dated 11/21/2020 FINDINGS: The right kidney measures 10.6 cm. No hydronephrosis, focal mass or perinephric fluid. Suboptimally visualized. The left kidney measures 11.5 cm. No hydronephrosis, focal mass or perinephr ic fluid. The urinary bladder is incompletely distended without gross abnormality seen. IMPRESSION: No evidence of hydronephrosis.
[2021-03-23] MEDS ORDERED: INFLUENZA VACCINE (for 6+ mo) 0.5 ML DOSE IMVAC ONE (12:00)
[2021-03-23 14:51] LABS: Absolute Lymphocytes (CBC) 1.4 K/uL (0.7-4.9); Hematocrit 35.8 % (36.0-45.0); Lymphocytes % 23.2 % (15.3-44.8); MPV 10.4 fL (7.6-11.3); RBC Red Blood Cell Count 3.17 M/uL (3.86-4.86)
[2021-03-23 15:19] LABS: CKMB Creatine Kinase MB 2.2 ng/mL (1.0-3.6); Potassium 4.4 mmol/L (3.5-5.1); Uric Acid 6.9 mg/dL (2.6-6.0)
--- NOTE | 2021-03-23 16:41 | CON ---
Date of Consultation: 03/23/2021 Reason For Consultation: Chest pain. History Of Present Illness: This is a 81-year-old female with history of coronary artery disease sta tus post cardiac bypass surgery in the past and she follows up with Dr. Harvey, presented with chest pain in the retrosternal area along with some nausea and shortness of breath. Denies having any cou gh or fever or any other symptoms. Since she is admitted in the hospital, she has been chest pain fr ee and resting comfortably. Past Medical History: Hypertension, diabetes, coronary artery disease, stroke, obesity, and dyslipid emia. Medications: Refer reconciliation sheet for detailed list. Allergies: LONG LIST OF ALLERGY WAS REVIEWED. Family History: No premature coronary artery disease or cancer. Social History: Does not smoke or drink. Does not use any drugs. Review of Systems: All systems reviewed and they were negative except as mentioned in HPI. Physical Examination: Vital Signs: Temperature is 97.5, pulse 61, breathing at 16, blood pressure is 137/76, and saturatin g 98%. General: Pleasant elderly female, in no apparent distress. Head and Neck: Pupils are equal and reactive to light. Intact eye movements. No JVD. No cervical lymphadenopathy. Neck is supple. Thyroid is not enlarged. Lungs: Clear to auscultation bilaterally. No rhonchi, rales, or crackles. No accessory muscle use. Heart: Regular rate and rhythm. No extra sounds. Abdomen: Soft, nontender. Bowel sounds positive. No organomegaly. No masses or hernia. No rigidi ty or rebound. Extremities: No edema, clubbing, or cyanosis. Intact pulses. Skin: No rashes. Neurologic: Alert, awake, and oriented x3. No acute focal deficits appreciated. Investigations: Troponin was 308. Creatinine is 2.35. Assessment And Recommendations: 1.Chest pain with positive troponin. Possible vdh-NP-vjxghbwts myocardial infarction. Recommend as pirin and anticoagulation with heparin and trend at least two more sets of cardiac enzymes and obtain echocardiogram. Given the elevated troponin, I recommend a Lexiscan nuclear stress test to evaluate for the presence of ischemia. If there is evidence of ischemia, then coronary angiogram will be rec ommended. 2.Chronic kidney disease. We will await on the decision for coronary angiogram until she gets a str ess test done. SR/MODL Voice ID: [id number] Report ID: [id number]
--- NOTE | 2021-03-23 17:21 | P.CNS ---
Date of Consult: 03/23/21 Reason for Consult: FIDENCIO Requesting Physician: Ferderick Gomez V History of Present Illness: A 81 y/o woman with PMhx of CAD S/p CABG, CHF on lasix, DM with neuropathy pt presented with chest pain in ER cr 2.3, on 12/2020 cr ~1.0 , pt denied any NSAID intake or recent contrast exposure , pt reported that her BP was low she denied any urinary symptoms , nausea or vomiting General : denies fever, chills, WT change weakness, insomnia HEENT: Denies dry, vision changes and headache Resp: denies SOB, cough or wheezes Cardiovascular: : intermittent chest pain last month resolved now , no SOB GI: denies abdominal pain, diarrhea or constipation : denies dysuria, urgency, foamy urine or blood tinged urine Musculoskeletal: denies muscle aches, joint pain Endo: denies polyuria and and polydipsia Extre: denies pain numbness and swelling Physical exam General: AAOx3, NAD, obese CHEST; CTAB, no wheezes or rales HEART : RRR. Normal S1,2 no murmur or rub Abd: soft, Nt Ext: no edema Skin : No rash A/p FIDENCIO possible due to ischemic ATN Bp now normalized avoid NSAID US: no hydronephrosis F/u UA and UPC if pt is going to require cardiac catheterization, then will need to start IVF , with lasix prn of shows signs of fluid overload Chest pain Hx of CABG cardiology following plan for stress test HTN Bp acceptable now DM SSI Allergies amoxicillin Allergy (Verified 05/30/20 03:48) Anaphylaxis clavulanic acid [From Augmentin] Allergy (Verified 05/30/20 03:48) Hives/Rash exenatide [From Byetta] Allergy (Verified 05/30/20 03:48) Itching/Hives/Rash ezetimibe [From Zetia] Allergy (Verified 07/27/18 13:00) Itching/Hives/Rash glimepiride [From Amaryl] Allergy (Verified 05/30/20 03:48) Itching/Hives/Rash hydrocodone Allergy (Verified 05/30/20 03:48) Nausea/Vomiting meperidine [From Demerol] Allergy (Verified 05/30/20 03:48) Itching/Hives/Rash metformin Allergy (Verified 05/30/20 03:48) unknown niacin [From Niaspan Extended-Release] Allergy (Verified 05/30/20 03:48) Itching/Hives/Rash Quinolones Allergy (Verified 05/30/20 03:48) Itching/Hives/Rash sitagliptin [From Januvia] Allergy (Verified 05/30/20 03:48) Itching/Hives/Rash Whsztxr-MSB-CdL Reductase Inhibitor [Gizkoxs-Wgx-Kfy Reductase Inhibitor] Allergy (Verified 05/30/20 03:48) Nausea/Vomiting tetanus and diphtheria toxoids Allergy (Verified 05/30/20 03:48) Itching/Hives/Rash spironolactone Adverse Reaction (Verified 05/30/20 03:48) high K, Dehydration angiotensin Allergy (Uncoded 07/27/18 13:00) Nausea/Vomiting Home Medications: Apixaban [Eliquis *] 5 mg PO BID 03/23/21 Aspirin [Callum Chewable Aspirin] 81 mg PO DAILY 03/23/21 Atorvastatin Calcium [Lipitor] 40 mg PO DAILY 03/23/21 Cholecalciferol (Vitamin D3) [Vitamin D3] 5,000 units PO DAILY 03/23/21 Furosemide [Lasix*] 40 mg PO DAILY 03/23/21 Hydroxyurea [Hydrea*] 500 mg PO BID 03/23/21 Insulin Detemir [Levemir] 5 units SQ BEDTIME 03/23/21 Insulin Detemir [Levemir] 25 units SQ DAILY 03/23/21 Magnesium [Magnesium Gluconate] 400 mg PO DAILY 03/23/21 Pantoprazole [Protonix Tab*] 40 mg PO DAILY 03/23/21 Pregabalin [Lyrica*] 75 mg PO BID 03/23/21 Ropinirole HCl 0.5 mg PO DAILY 03/23/21 Spironolactone [Aldactone*] 25 mg PO DAILY 03/23/21 Timolol Maleate/Pf [Timolol Maleate 0.5% Eye Drop] 1 gtt OPTH BID 03/23/21 Tramadol HCl [Ultram] 50 mg PO BID PRN 03/23/21 hydrOXYzine pamoate [Hydroxyzine Pamoate] 25 mg PO BID 03/23/21 - Past Medical/Surgical History Diabetic: Yes -: HTN -: DM 2 -: stroke 2015 -: Thrombocytopenia -: Hernia -: SOB -: Stroke x 3 -: CAD -: carotid stenosis right 90% -: vertiginous syndrome -: hyperglobulinemia, hypergammaglobulinemia -: dyslipidemia -: Hysterectomy -: Bladder suspension -: Hernia repair -: Spleenectomy -: Cholesystectomy -: Tonsillectomy -: Colonoscopy and Polyps removal -: endarterectomy, carotid 07/2018 - Family History Father Medical History: Heart disease - Social History Smoking Status: Unknown if ever smoked Alcohol use: No CD- Drugs: No Caffeine use: No Place of Residence: Home Physical Examination Temp Pulse Resp BP Pulse Ox 97.5 F 61 16 148/60 H 96 03/23/21 12:00 03/23/21 12:00 03/23/21 12:00 03/23/21 12:00 03/23/21 12:00 Laboratory Data (last 24 hrs) 03/22/21 23:57: Sodium 138, Potassium 4.7, BUN 54 H, Creatinine 2.35 H, Glucose 120 H, Magnesium 2.2 D, Total Bilirubin 0.5, AST 37, ALT 31, Alkaline Phos phatase 109 03/22/21 22:10: PT 19.0 H, INR 1.64 03/22/21 22:10: WBC 5.30, Hgb 13.0, Hct 38.9, Plt Count 274
[2021-03-23] MEDS ORDERED: NA CHLORIDE 0.9% 500 ML IV ONE (17:58)
[2021-03-23] MEDS ORDERED: NA CHLORIDE 0.9% 1,000 ML IV SCH (18:00)
[2021-03-24] MEDS: TIMOLOL MALEATE 0.5% OPTH 5 ML BTL OPTH SCH ×2 (09:00→21:00)
[2021-03-24] MEDS: ROPINIROLE HCL 0.25 MG TAB PO SCH (09:00)
[2021-03-24] MEDS: MAGNESIUM OXIDE 400 MG TAB PO SCH (09:00)
[2021-03-24] MEDS: VITAMIN D 5,000 UNIT CAP PO SCH (09:22)
[2021-03-24] MEDS: Enoxaparin 120 MG/0.8 ML SYR SQ SCH (09:22)
[2021-03-24] MEDS: ASPIRIN 81 MG CHEWABLE TABLET PO SCH (09:23)
[2021-03-24] MEDS: ATORVASTATIN 40 MG TAB PO SCH (09:23)
[2021-03-24] MEDS: hydrOXYzine HCL 25 MG TAB PO SCH ×2 (09:23→22:09)
[2021-03-24] MEDS: PANTOPRAZOLE 40MG TABLET PO SCH (09:24)
[2021-03-24] MEDS: PREGABALIN 75 MG CAP PO SCH ×2 (09:24→22:09)
[2021-03-24] MEDS: HYDROXYUREA 500 MG CAP PO SCH ×2 (09:24→22:09)
[2021-03-24] MEDS: INSULIN GLARGINE 100 UNIT/ML SQ SCH ×2 (09:25→22:10)
[2021-03-24] MEDS: INSULIN -REGULAR HUMAN 50 UNIT/0.5 ML ML SQ SCH ×4 (09:25→22:09)
--- NOTE | 2021-03-24 10:06 | P.PN ---
Subjective Date of Service: 03/24/21 Chief Complaint: CHEST PAIN Subjective: Improving PATIENT IS DIABETIC, WITH MANY COMPLICATIONS INCLUDING CAD, NEUROPATHY COMES WITH CHEST PAIN. SHE DOES NOT KNOW WHY SHE IS HERE. HER TROP IS HIGH. SHE HAS SUBENDO MS. DR. MIJARES CAN DO CATH BUT CREAT IS HIGH. SHE IS LAYING IN BED COMFORTABLY. Review of Systems 10-point ROS is otherwise unremarkable Physical Examination - Vital Signs Temperature: 97.9 F Blood Pressure: 162/76 Pulse: 62 Respirations: 16 Pulse Ox (%): 95 - Physical Exam General: Alert, In no apparent distress, Oriented x2, Obese HEENT: Atraumatic, PERRLA, EOMI Neck: Supple, JVD not distended Respiratory: Clear to auscultation bilaterally, Normal air movement Cardiovascular: Regular rate/rhythm, Normal S1 S2 Gastrointestinal: Normal bowel sounds, No tenderness Musculoskeletal: No tenderness Integumentary: No rashes Neurological: Normal speech, Normal tone, Normal affect Lymphatics: No axilla or inguinal lymphadenopathy - Studies Medications List Reviewed: Yes Assessment And Plan - Current Problems (Diagnosis) (1) Subendo infrc, init episd Current Visit: Yes Status: Acute Plan: ST TEST IN AM CATH IF CAN WITH CREAT COMING DOWN (2) 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 THERE IS NO CLINICAL SIGN OF CHF FOR NOW (4) Diabetes type 2, uncontrolled Current Visit: No Status: Chronic (5) Diabetic neuropathy Current Visit: No Status: Chronic Qualifiers: Diabetes mellitus type: type 2 Diabetes mellitus complication detail: diabetic polyneuropathy Qualified Code(s): E11.42 - Type 2 diabetes mellitus with diabetic polyneuropathy
[2021-03-24 11:21] LABS: Urine Appearance CLOUDY (Clear); Urine Bilirubin NEGATIVE (Negative); Urine Blood NEGATIVE (Negative); Urine Color YELLOW (Yellow); Urine Glucose 2+ (Negative); Urine Protein NEGATIVE (Negative); Urine Specific Gravity 1.015 (1.005-1.030); Urine Urobilinogen 0.2 mg/dL (0.2-1.0); Urine pH 6.5 (5.0-7.0)
[2021-03-24 11:32] LABS: Urine Microscopic Reflex ORDER UMIC
[2021-03-24 11:37] LABS: UR PROTEIN 19.6 mg/dL (<11.9); Urine Protein/Creatinine Ratio 0.28 ratio (<0.15)
[2021-03-24 12:04] LABS: Urine Bacteria LOADED /HPF (<20); Urine RBC <5 /HPF (NONE SEEN)
[2021-03-24 12:17] LABS: Albumin 2.7 g/dL (3.4-5.0); Bilirubin Total 0.4 mg/dL (0.2-1.0); Potassium 4.6 mmol/L (3.5-5.1); Thyroid Stimulating Hormone 1.69 uIU/mL (0.360-3.740)
--- NOTE | 2021-03-24 12:20 | P.PN ---
Subjective Date of Service: 03/24/21 Chief Complaint: CHEST PAIN A 81 y/o woman with PMhx of CAD S/p CABG, CHF on lasix, DM with neuropathy pt presented with chest pain in ER cr 2.3, on 12/2020 cr ~1.0 , pt denied any NSAID intake or recent contrast exposure , pt reported that her BP was low she denied any urinary symptoms , nausea or vomiting today no overnight events Physical exam General: Awake , NAD, obese CHEST; CTAB, no wheezes or rales HEART : RRR. Normal S1,2 no murmur or rub Abd: soft, Nt Ext: no edema Skin : No rash A/p FIDENCIO possible due to ischemic ATN Bp now normalized avoid NSAID US: no hydronephrosis F/u UA and UPC if pt is going to require cardiac catheterization, then will need to start IVF , with lasix prn of shows signs of fluid overload cont to hold lasix for now Chest pain Hx of CABG cardiology following plan for stress test Hx of CABg and CHF CXR showed mild congestion clinically not in ditress or have signs of fluid overload will cont to hold lasix for now HTN Bp acceptable now DM SSI HX of thrombocytopenia on hydroxyurea Physical Examination - Vital Signs Temperature: 97.9 F Blood Pressure: 162/76 Pulse: 62 Respirations: 16 Pulse Ox (%): 95 - Studies Medications List Reviewed: Yes
--- NOTE | 2021-03-24 19:48 | PN ---
Date of Progress Note: 03/24/2021 Subjective: Seen by bedside. Has no chest pain at the present time. No further symptoms. Review of Systems: Reviewed and are negative. Physical Examination: Vital Signs: Reviewed. HEENT: On exam, pupils are equal, reactive to light. Intact eye movements. Neck: No JVD. No cervical lymphadenopathy. Neck is supple. Thyroid is not enlarged. Lungs: Clear to auscultation bilaterally. No rhonchi, rales, or crackles. No accessory muscle use. Heart: Regular rate and rhythm. No extra sounds. Abdomen: Soft, nontender. Bowel sounds positive. No organomegaly. No masses or hernia. No rigidi ty or rebound. Extremities: No clubbing, cyanosis. Intact pulses. Skin: No rashes. Neurologic: Alert, awake, no acute deficit was appreciated. Investigations: Labs were reviewed. Assessment And Recommendation: 1.Non-ST elevation myocardial infarction. We will plan for an Lexiscan nuclear stress test tomorrow , and the decision for coronary angiogram will be based on that as the patient has chronic kidney dis ease. 2.Chronic kidney disease. Nephrology is on board. /MODL Voice ID: [id number] Report ID: [id number]
--- NOTE | 2021-03-25 02:21 | P.HP ---
Certification for Inpatient Patient admitted to: Inpatient With expected LOS: >2 Midnights Patient will require the following post-hospital care: None Practitioner: I am a practitioner with admitting privileges, knowledge of patient current condition, hospital course, and medical plan of care. Services: Services provided to patient in accordance with Admission requirements found in Title 42 Section 412.3 of the Code of Federal Regulations Patient History Date of Service: 03/23/21 Reason for admission: CHEST PAIN History of Present Illness: Patient is a very pleasant 81-year-old female who comes into the hospital with chest discomfort. Patient was seen in the emergency room at her high sensitivity troponin levels came back elevated. Patient's history of Coronary artery disease with coronary artery bypass grafting. Patient has some nausea and shortness of breath. Patient's son is at bedside and he assist with most of her history. Patient has a history of multiple vascular issues including coronary artery disease, CVA, carotid artery disease and patient is been on anti coagulation. She has been compliant with her medications. Her BMI is elevated but her body weight has decreased according to the son. Patient's EKG did not reveal any ST elevation. Patient has some chronic changes. Spoke with Cardiology and plan is to do a stress test on Thursday. Pending stress test decision will be made if patient needs any further cardiac intervention. At this time patient is feeling well with no complaints. Allergies amoxicillin Allergy (Verified 05/30/20 03:48) Anaphylaxis clavulanic acid [From Augmentin] Allergy (Verified 05/30/20 03:48) Hives/Rash exenatide [From Byetta] Allergy (Verified 05/30/20 03:48) Itching/Hives/Rash ezetimibe [From Zetia] Allergy (Verified 07/27/18 13:00) Itching/Hives/Rash glimepiride [From Amaryl] Allergy (Verified 05/30/20 03:48) Itching/Hives/Rash hydrocodone Allergy (Verified 05/30/20 03:48) Nausea/Vomiting meperidine [From Demerol] Allergy (Verified 05/30/20 03:48) Itching/Hives/Rash metformin Allergy (Verified 05/30/20 03:48) unknown niacin [From Niaspan Extended-Release] Allergy (Verified 05/30/20 03:48) Itching/Hives/Rash Quinolones Allergy (Verified 05/30/20 03:48) Itching/Hives/Rash sitagliptin [From Januvia] Allergy (Verified 05/30/20 03:48) Itching/Hives/Rash Ttdktrl-NYE-QkD Reductase Inhibitor [Qryovei-Xgy-Zvt Reductase Inhibitor] Allergy (Verified 05/30/20 03:48) Nausea/Vomiting tetanus and diphtheria toxoids Allergy (Verified 05/30/20 03:48) Itching/Hives/Rash spironolactone Adverse Reaction (Verified 05/30/20 03:48) high K, Dehydration angiotensin Allergy (Uncoded 07/27/18 13:00) Nausea/Vomiting Home Medications: Apixaban [Eliquis *] 5 mg PO BID 03/23/21 Aspirin [Callum Chewable Aspirin] 81 mg PO DAILY 03/23/21 Atorvastatin Calcium [Lipitor] 40 mg PO DAILY 03/23/21 Cholecalciferol (Vitamin D3) [Vitamin D3] 5,000 units PO DAILY 03/23/21 Furosemide [Lasix*] 40 mg PO DAILY 03/23/21 Hydroxyurea [Hydrea*] 500 mg PO BID 03/23/21 Insulin Detemir [Levemir] 5 units SQ BEDTIME 03/23/21 Insulin Detemir [Levemir] 25 units SQ DAILY 03/23/21 Magnesium [Magnesium Gluconate] 400 mg PO DAILY 03/23/21 Pantoprazole [Protonix Tab*] 40 mg PO DAILY 03/23/21 Pregabalin [Lyrica*] 75 mg PO BID 03/23/21 Ropinirole HCl 0.5 mg PO DAILY 03/23/21 Spironolactone [Aldactone*] 25 mg PO DAILY 03/23/21 Timolol Maleate/Pf [Timolol Maleate 0.5% Eye Drop] 1 gtt OPTH BID 03/23/21 Tramadol HCl [Ultram] 50 mg PO BID PRN 03/23/21 hydrOXYzine pamoate [Hydroxyzine Pamoate] 25 mg PO BID 03/23/21 - Past Medical/Surgical History Has patient received pneumonia vaccine in the past: Yes Diabetic: Yes -: HTN -: DM 2 -: stroke 2015 -: Thrombocytopenia -: Hernia -: SOB -: Stroke x 3 -: CAD -: carotid stenosis right 90% -: vertiginous syndrome -: hyperglobulinemia, hypergammaglobulinemia -: dyslipidemia -: Hysterectomy -: Bladder suspension -: Hernia repair -: Spleenectomy -: Cholesystectomy -: Tonsillectomy -: Colonoscopy and Polyps removal -: endarterectomy, carotid 07/2018 - Family History Father Medical History: Heart disease - Social History Alcohol use: No CD- Drugs: No Caffeine use: No Place of Residence: Home Review of Systems 10-point ROS is otherwise unremarkable Physical Examination - Vital Signs Temperature: 98.2 F Blood Pressure: 125/57 Pulse: 62 Respirations: 16 Pulse Ox (%): 95 - Physical Exam General: Alert, In no apparent distress, Oriented x3 HEENT: Atraumatic, PERRLA, Mucous membr. moist/pink, EOMI, Sclerae nonicteric Neck: Supple, 2+ carotid pulse no bruit, No LAD, Without JVD or thyroid abnormality Respiratory: Clear to auscultation bilaterally, Normal air movement Cardiovascular: Regular rate/rhythm, Normal S1 S2, Systolic murmur Gastrointestinal: Normal bowel sounds, Soft and benign, Non-distended, No tenderness Musculoskeletal: No clubbing, No swelling, No tenderness Integumentary: No rashes Neurological: Normal gait, Normal speech, Normal tone, Sensation intact, Cranial nerves 3-12 intact, Normal affect, Abnormal strength Lymphatics: No axilla or inguinal lymphadenopathy Assessment & Plan - Problems (Diagnosis) (1) Chest pain, rule out acute myocardial infarction Current Visit: Yes Status: Acute (2) Diastolic CHF, acute on chronic Current Visit: No Status: Acute (3) History of carotid endarterectomy Current Visit: No Status: Acute (4) (HFpEF) heart failure with preserved ejection fraction Current Visit: No Status: Chronic Qualifiers: Heart failure chronicity: chronic Qualified Code(s): I50.32 - Chronic diastolic (congestive) heart failure (5) Diabetes Current Visit: No Status: Chronic Qualifiers: Diabetes mellitus type: type 2 Diabetes mellitus complication status: with neurologic complications (6) HTN (hypertension) Current Visit: No Status: Chronic Qualifiers: Hypertension type: primary hypertension Qualified Code(s): I10 - Essential (primary) hypertension (7) Recurrent cerebrovascular accidents (CVAs) Current Visit: No Status: Chronic - Plan 1. Serial troponins and EKG 2. Appreciate Cardiology consultation 3. Echocardiogram and stress test 4. Anti-platelet therapy, anti coagulation, beta-tamika, statin, and O2 as needed 5. IV morphine for pain 6. Nitro p.r.n. 7. Lipid profile 8. Resume home medications 9. GI and DVT prophylaxis Cover for Dr. Gomez and he will take over in a.m. Discharge Plan: Home Plan to discharge in: Greater than 2 days - Advance Directives Does patient have a Living Will: No Does patient have a Durable POA for Healthcare: Yes - Code Status/Comfort Care Code Status Assessed: Yes Code Status: Full Code Critical Care: No Time Spent Managing PTS Care (In Minutes): 45
[2021-03-25 06:35] VITALS: BMI 43.5
[2021-03-25 06:44] LABS: Hematocrit 36.5 % (36.0-45.0); Lymphocytes % 33.4 % (15.3-44.8); MPV 10.8 fL (7.6-11.3); RBC Red Blood Cell Count 3.19 M/uL (3.86-4.86)
[2021-03-25] MEDS: PANTOPRAZOLE 40MG TABLET PO SCH (07:30)
[2021-03-25] MEDS: INSULIN -REGULAR HUMAN 50 UNIT/0.5 ML ML SQ SCH ×4 (07:30→21:31)
[2021-03-25 08:39] LABS: Anisocytosis 1+; Blood Morphology Comment NOTED (NOT SEEN); Howell-Jolly Bodies NOTED; Macrocytosis 1+; Platelet Estimate ADEQ
[2021-03-25] MEDS: ROPINIROLE HCL 0.25 MG TAB PO SCH (09:00)
[2021-03-25] MEDS: PREGABALIN 75 MG CAP PO SCH ×2 (09:00→20:54)
[2021-03-25] MEDS: MAGNESIUM OXIDE 400 MG TAB PO SCH (09:00)
[2021-03-25] MEDS: ASPIRIN 81 MG CHEWABLE TABLET PO SCH (09:00)
[2021-03-25] MEDS: VITAMIN D 5,000 UNIT CAP PO SCH (09:00)
[2021-03-25] MEDS: TIMOLOL MALEATE 0.5% OPTH 5 ML BTL OPTH SCH ×2 (09:00→20:55)
[2021-03-25] MEDS: hydrOXYzine HCL 25 MG TAB PO SCH ×2 (09:00→20:54)
[2021-03-25] MEDS: INSULIN GLARGINE 100 UNIT/ML SQ SCH ×2 (09:00→20:56)
[2021-03-25] MEDS: HYDROXYUREA 500 MG CAP PO SCH ×2 (09:00→20:54)
[2021-03-25] MEDS: ATORVASTATIN 40 MG TAB PO SCH (09:00)
--- NOTE | 2021-03-25 09:17 | RAD REPORT ---
EXAM DESCRIPTION: RAD - Chest Single View - 03/25/2021 9:00 am CLINICAL HISTORY: F/u CHF COMPARISON: Chest Single View dated 03/22/2021; Chest Single View dated 12/29/2020; Chest Single View dated 12/29/2020; Chest Single View dated 12/27/2020 FINDINGS: Lines: Pacemaker. Lungs: Similar prominence of the pulmonary interstitium. Pleural: No significant pleural effusions or pneumothorax. Cardiac: Mild cardiomegaly. Bones: No acute fractures. Sternotomy. Other: IMPRESSION: Similar aeration lungs compared 03/22/2021 with mild interstitial edema suspected.
[2021-03-25] MEDS: Enoxaparin 120 MG/0.8 ML SYR SQ SCH (10:17)
--- NOTE | 2021-03-25 21:06 | P.PN ---
Subjective Date of Service: 03/25/21 Chief Complaint: CHEST PAIN Subjective: No new changes PATIENT IS DIABETIC, WITH MANY COMPLICATIONS INCLUDING CAD, NEUROPATHY COMES WITH CHEST PAIN. SHE DOES NOT KNOW WHY SHE IS HERE. HER TROP IS HIGH. SHE HAS SUBENDO NM. DR. MIJARES CAN DO CATH BUT CREAT IS HIGH. SHE IS LAYING IN BED COMFORTABLY. SHE HAS CHEST PAIN OFF AND ON. TODAY STRESS TEST HAD TO BE CANCELED THERE ARE NOT ENOUGH NURSES TO TAKE CARE OF WORK AT [facility]. Review of Systems 10-point ROS is otherwise unremarkable General: Weakness, Malaise Physical Examination - Vital Signs Temperature: 97.5 F Blood Pressure: 118/52 Pulse: 60 Respirations: 16 Pulse Ox (%): 92 - Physical Exam General: Alert, In no apparent distress, Obese HEENT: Atraumatic, PERRLA, EOMI Neck: Supple, JVD not distended Respiratory: Clear to auscultation bilaterally, Normal air movement Cardiovascular: Regular rate/rhythm, Normal S1 S2 Gastrointestinal: Normal bowel sounds, No tenderness Musculoskeletal: No tenderness Integumentary: No rashes Neurological: Normal speech, Normal tone, Normal affect Lymphatics: No axilla or inguinal lymphadenopathy - Studies Medications List Reviewed: Yes Assessment And Plan - Current Problems (Diagnosis) (1) Subendo infrc, init episd Current Visit: Yes Status: Acute Plan: ST TEST IN AM CATH IF CAN WITH CREAT COMING DOWN ST TEST IN AM OFF DIURETICS NOW , MAY SHOW IMPROVEMENT IN CREAT. (2) 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 THERE IS NO CLINICAL SIGN OF CHF FOR NOW (4) Diabetes type 2, uncontrolled Current Visit: No Status: Chronic (5) Diabetic neuropathy Current Visit: No Status: Chronic Qualifiers: Diabetes mellitus type: type 2 Diabetes mellitus complication detail: diabetic polyneuropathy Qualified Code(s): E11.42 - Type 2 diabetes mellitus with diabetic polyneuropathy
--- NOTE | 2021-03-26 00:30 | PN ---
Date of Progress Note: 03/25/2021 Chief Complaint: Acute kidney injury on chronic kidney disease. History Of Present Illness: The patient has multiple medical problems including, history of coronary artery disease status post CABG, congestive heart failure, acute on chronic with systolic and diasto lic dysfunction, diabetes mellitus with neuropathy. The patient presented to the hospital because of chest pain. She was found to have creatinine level at 2.3 on arrival to the emergency room. Previo us baseline creatinine December 2020 was 1.0. The patient denies nonsteroidal anti-inflammatory medic ation or contrast exposure. She denies history of kidney stone. Denies urinary symptoms. Did not h ave nausea or vomiting. Review of Systems: Denies fever, chills, syncope. Denies dysuria or hematuria. Physical Examination: Lungs: Clear to auscultation bilaterally. Heart: S1, S2. Abdomen: Soft, benign. Extremities: No edema. Impression: Acute kidney injury due to ischemic acute tubular necrosis. Blood pressure is normalizi ng as well as nonsteroidal anti-inflammatory medication, but there is no evidence of obstr uctive uropathy. Ultrasound did not show hydronephrosis. Follow up urinalysis and urine protein. T he patient may need to have cardiac catheterization. The patient will require IV fluids . The patient may benefit from Lasix intake. She has fluid overload. At this time, the patient does not have fluid overload. Plan is to continue IV fluids for contrast exposure. Chest pain, history coronary artery disease status post coronary artery bypass graft. Further recomm endation from Cardiology. The patient is to have stress test. Hypertension. Blood pressure acceptable. Continue current treatment. Diabetes mellitus per insulin sliding scale. EB/MODL Voice ID: [id number] Report ID: [id number]
[2021-03-26 05:55] LABS: Absolute Lymphocytes (CBC) 1.6 K/uL (0.7-4.9); Hematocrit 34.5 % (36.0-45.0); Lymphocytes % 29.9 % (15.3-44.8); MPV 10.2 fL (7.6-11.3); RBC Red Blood Cell Count 3.03 M/uL (3.86-4.86)
[2021-03-26 06:16] LABS: Potassium 4.7 mmol/L (3.5-5.1)
[2021-03-26 06:56] LABS: Anisocytosis 2+; Blood Morphology Comment NOTED (NOT SEEN); Macrocytosis 2+; Platelet Estimate ADEQ; White Blood Cell Scan DIFF (OK)
[2021-03-26] MEDS: PANTOPRAZOLE 40MG TABLET PO SCH (07:30)
[2021-03-26] MEDS: INSULIN -REGULAR HUMAN 50 UNIT/0.5 ML ML SQ SCH ×3 (07:30→16:30)
[2021-03-26] MEDS: INSULIN GLARGINE 100 UNIT/ML SQ SCH (08:45)
[2021-03-26] MEDS: Enoxaparin 120 MG/0.8 ML SYR SQ SCH (08:47)
[2021-03-26] MEDS: ASPIRIN 81 MG CHEWABLE TABLET PO SCH (08:51)
[2021-03-26] MEDS: hydrOXYzine HCL 25 MG TAB PO SCH (08:51)
[2021-03-26] MEDS: ROPINIROLE HCL 0.25 MG TAB PO SCH (08:52)
[2021-03-26] MEDS: PREGABALIN 75 MG CAP PO SCH (08:52)
[2021-03-26] MEDS: MAGNESIUM OXIDE 400 MG TAB PO SCH (08:52)
[2021-03-26] MEDS: TIMOLOL MALEATE 0.5% OPTH 5 ML BTL OPTH SCH (08:52)
[2021-03-26] MEDS: ATORVASTATIN 40 MG TAB PO SCH (08:52)
[2021-03-26] MEDS: VITAMIN D 5,000 UNIT CAP PO SCH (08:52)
[2021-03-26] MEDS: HYDROXYUREA 500 MG CAP PO SCH (08:52)
[2021-03-26] MEDS ORDERED: REGADENOSON 0.4 MG/5 ML SYR IV ONE (09:19)
--- NOTE | 2021-03-26 12:49 | P.PN ---
Subjective Date of Service: 03/26/21 Chief Complaint: CHEST PAIN Physical Examination - Vital Signs Temperature: 98.3 F Blood Pressure: 150/54 Pulse: 60 Respirations: 16 Pulse Ox (%): 94 - Studies Medications List Reviewed: Yes Assessment And Plan - Plan Acute kidney injury due to ischemic acute tubular necrosis. Blood pressure is normalizing as well as nonsteroidal anti-inflammatory medication, but there is no evidence of obstructive uropathy. Ultrasound did not show hydronephrosis. Follow up urinalysis and urine protein. The patient may need to have cardiac catheterization. The patient will require IV fluids . The patient may benefit from Lasix intake. She has fluid overload. At this time, the patient does not have fluid overload. Plan is to continue IV fluids for contrast exposure. Chest pain, history coronary artery disease status post coronary artery bypass graft. Further recommendation from Cardiology. The patient is to have stress test. Hypertension. Blood pressure acceptable. Continue current treatment. Diabetes mellitus per insulin sliding scale.
--- NOTE | 2021-03-26 13:16 | RAD REPORT ---
EXAM DESCRIPTION: NM - Rest Stress Cardiac Imaging - 03/26/2021 1:05 pm CLINICAL HISTORY: Chest pain. COMPARISON: None. TECHNIQUE: The patient was administered 10.5 mCi of Tc 99m Sestamibi prior to resting SPECT imaging of the heart. The patient was then administered 31.4 mCi of Tc 99m Sestamibi following exercise or ph armacologic stress. Multiplanar SPECT images were reviewed. FINDINGS: There is uniformity of radiotracer uptake involving the entire left ventricular myocardiu m on rest and stress images. The left ventricular ejection fraction equals 54% IMPRESSION: Negative for a myocardial perfusion defect
[2021-03-26 17:45] LABS: Urine Appearance CLOUDY (Clear); Urine Bilirubin NEGATIVE (Negative); Urine Blood NEGATIVE (Negative); Urine Color YELLOW (Yellow); Urine Glucose NEGATIVE (Negative); Urine Protein NEGATIVE (Negative); Urine Urobilinogen 0.2 mg/dL (0.2-1.0)
[2021-03-26 18:31] LABS: Urine Bacteria LOADED /HPF (<20); Urine RBC NONE SEEN /HPF (NONE SEEN)
[2021-03-26 20:51] VITALS: BP 132/51; TEMP 97.6
[2021-03-26 21:18] VITALS: O2SAT 95
--- NOTE | 2021-03-26 21:44 | P.DS ---
Admission Date: 03/23/21 Discharge Date: 03/26/21 Disposition: ROUTINE DISCHARGE Discharge Condition: FAIR Reason for Admission: CHEST PAIN - Problems (1) Subendo infrc, init episd Current Visit: Yes Status: Acute (2) Coronary artery disease due to type 2 diabetes mellitus Current Visit: Yes Status: Chronic (3) Prerenal acute renal failure Current Visit: Yes Status: Acute (4) Diabetes type 2, uncontrolled Current Visit: No Status: Chronic (5) Diabetic neuropathy Current Visit: No Status: Chronic Qualifiers: Diabetes mellitus type: type 2 Diabetes mellitus complication detail: diabetic polyneuropathy Qualified Code(s): E11.42 - Type 2 diabetes mellitus with diabetic polyneuropathy Brief History of Present Illness: AMBIKA COMES IN WITH CHEST PAIN. FAMILY BROUGHT HER. SHE ACTUALLY DID NOT KNOW WHY SHE WAS HERE. SHE IS MORBIDLY OBESE, DIABETIC WITH CAD AND CKD. SHE HAD ELEVETED TROPONIN SO DR. MIJARES ADVISED STRESS TEST AND THAT IS NEGATIVE. SHE WILL RESUME SAME MEDS AND I WILL SEE HER BACK IN ONE WEEK FOR FU AND LAB. SHE IS HIGH RISK WITH SEVERE COMPLICATIONS IN THE PAST WITH NON COMPLIANCE OF DM AND DIET. Vital Signs/Physical Exam: Temp Pulse Resp BP Pulse Ox 97.6 F 59 18 132/51 L 93 03/26/21 20:00 03/26/21 20:00 03/26/21 20:00 03/26/21 20:00 03/26/21 20:00 Laboratory Data at Discharge: WBC 5.20 K/uL (4.3-10.9) 03/26/21 05:35 Hgb 11.7 g/dL (12.0-15.0) L 03/26/21 05:35 Hct 34.5 % (36.0-45.0) L 03/26/21 05:35 Plt Count 235 K/uL (152-406) 03/26/21 05:35 PT 19.0 SECONDS (9.5-12.5) H 03/22/21 22:10 INR 1.64 03/22/21 22:10 APTT 51.7 SECONDS (24.3-36.9) H 03/23/21 14:41 Sodium 138 mmol/L (136-145) 03/26/21 05:35 Potassium 4.7 mmol/L (3.5-5.1) 03/26/21 05:35 BUN 39 mg/dL (7-18) H 03/26/21 05:35 Creatinine 2.04 mg/dL (0.55-1.3) H 03/26/21 05:35 Glucose 208 mg/dL (74-106) H 03/26/21 05:35 Uric Acid 6.9 mg/dL (2.6-6.0) H 03/23/21 14:41 Magnesium 2.2 mg/dL (1.8-2.4) D 03/22/21 23:57 Total Bilirubin Cancelled 03/24/21 11:30 AST Cancelled 03/24/21 11:30 ALT Cancelled 03/24/21 11:30 Alkaline Phosphatase Cancelled 03/24/21 11:30 LDL Cholesterol Direct 70 mg/dL (100-129) L 03/24/21 11:03 LDL Cholesterol Direct Cancelled 03/24/21 11:03 Home Medications: Apixaban [Eliquis *] 5 mg PO BID 03/23/21 Aspirin [Callum Chewable Aspirin] 81 mg PO DAILY 03/23/21 Atorvastatin Calcium [Lipitor] 40 mg PO DAILY 03/23/21 Cholecalciferol (Vitamin D3) [Vitamin D3] 5,000 units PO DAILY 03/23/21 Furosemide [Lasix*] 40 mg PO DAILY 03/23/21 Hydroxyurea [Hydrea*] 500 mg PO BID 03/23/21 Insulin Detemir [Levemir] 5 units SQ BEDTIME 03/23/21 Insulin Detemir [Levemir] 25 units SQ DAILY 03/23/21 Magnesium [Magnesium Gluconate] 400 mg PO DAILY 03/23/21 Pantoprazole [Protonix Tab*] 40 mg PO DAILY 03/23/21 Pregabalin [Lyrica*] 75 mg PO BID 03/23/21 Ropinirole HCl 0.5 mg PO DAILY 03/23/21 Spironolactone [Aldactone*] 25 mg PO DAILY 03/23/21 Timolol Maleate/Pf [Timolol Maleate 0.5% Eye Drop] 1 gtt OPTH BID 03/23/21 Tramadol HCl [Ultram] 50 mg PO BID PRN 03/23/21 hydrOXYzine pamoate [Hydroxyzine Pamoate] 25 mg PO BID 03/23/21 Physician Discharge Instructions: Follow up with in 1 week. Followup: Frederick Gomez MD [Primary Care Provider] -
--- NOTE | 2021-03-27 08:37 | TREADPHA ---
DX: CHEST PAIN Date of Study: 03/26/21 Ht: 5' 4 " Wt: 253 lb 12.8 oz Consulting Physician: CLINT MEDICATIONS: ASPIRIN, MAGNESIUM, LEVEMIR, TRAMADOL, PROTONIX, LIPITOR, ALDACONE, LASIX, LYRICA, HYDREA, ELIQUIS. HISTORY: 81 YEAR OLD FEMALE WITH CHEST PAIN. HISTORY OF DIABETUS MELLITUS, HYPERTENSION, STROKE, SHORTNESS OF BREATH, CORONARY ARTERY DISEASE, CORONARY ARTERY BYPASS GRAFT, PACEMAKER. PHYSICIAL EXAMINATION: RESTING B.P.: 150/68 RESTING H.R.: 61 RESTING EKG: PACED RHYTHM PROTOCOL: LEXISCAN EXERCISE TIME: 3:30 B.P. AT PEAK STRESS: 139/57 IMPRESSION: LEXISCAN INJECTED, CARDIOLITE INJECTED. (SEE NUCLEAR MEDICINE REPORT). NO CHEST PAIN, NO VENTRICULAR TACHYCARDIA NOTED, NO SUPRA VENTRICULAR TACHYCARDIA OR ARRHTHMIAS NOTED.
--- NOTE | 2021-03-29 17:12 | PN ---
Date of Progress Note: 03/25/2021 She was admitted with non-STEMI. Dr. Gomez was admitting physician. Dr. Turner have been following her. She was admitted on 03/23/2021. I saw her on 03/25/2021. She was pain free and really wanted to go home, however, she had a stress test ordered for today is, but we had no nurses in the EKG depa rtment to do the stress test, so the stress test was delayed until the day after. Personally, I feel like she can go home and have it that done as an outpatient. More likely than not, we will be treat ing her medically. The case was discussed with Dr. Gomez. I will continue to follow her as needed. PEE/SULEIMAN Voice ID: [id number] Report ID: [id number]
== END 2021-03-26 20:25 | disposition home health service (06) | DRG 280 ==
LOC: ER 21:52 → ERHOLD 03-23 01:42 → 2ND 03-23 03:03
PROVIDERS: ADMIT Internal Medicine; ATTEND Hospitalist
DX: I21.4 Non-ST elevation (NSTEMI) myocardial infarction (principal); N17.0 Acute kidney failure with tubular necrosis; Z68.41 Body mass index [BMI] 40.0-44.9, adult; I13.0 Hypertensive heart and chronic kidney disease with heart failure and stage 1 through stage 4 chronic kidney disease, or unspecified chronic kidney disease; I50.32 Chronic diastolic (congestive) heart failure; I25.10 Atherosclerotic heart disease of native coronary artery without angina pectoris; E66.01 Morbid (severe) obesity due to excess calories; E11.22 Type 2 diabetes mellitus with diabetic chronic kidney disease; E11.65 Type 2 diabetes mellitus with hyperglycemia; N18.9 Chronic kidney disease, unspecified; E11.42 Type 2 diabetes mellitus with diabetic polyneuropathy; Z95.1 Presence of aortocoronary bypass graft; Z23 Encounter for immunization; Z86.73 Personal history of transient ischemic attack (TIA), and cerebral infarction without residual deficits; Z20.822 Contact with and (suspected) exposure to COVID-19
CPT/HCPCS: 0240U; 36415; 71045; 76770; 78452; 80048; 80053; 80076; 81001; 81003; 81015; 82553; 82570; 82607; 82947; 83036; 83735; 83880; 83970; 84156; 84443; 84484; 84550; 85025; 85610; 85730; 87077; 87086; 87088; 87186; 90471; 93005; 93017; 94760; 99285; A9500; J1650; J2785; J7030; Q2035

== ENCOUNTER 2022-01-01 15:52 | Emergency (ER) | payer OTHER ==
--- OUTSIDE RECORDS SUMMARY | 2022-01-01 16:07 | XMS REPORT | Continuity of Care Document ---
:1940 Author Organization [facility] t Address [address] [place] [address] Care Team Providers Name Role Phone Frederick Carrasquillo Primary Care Physician SABAS SCHWAB Attending Clinician Unavailable Sabas Schwab MD Attending Clinician Doctor Unassigned, [place] Attending Clinician Unavailable Only, Adc Test Attending Clinician Unavailable Pob, Adc Lab Main Attending Clinician Unavailable JOSE HOOVER Attending Clinician Unavailable MD JOSE HOOVER Attending Clinician Unavailable DESHAWN CHRISTIE Attending Clinician Unavailable SABAS AQUINO Attending Clinician Unavailable ABDON VENTURA Attending Clinician Unavailable Vlad Goodwin Attending Clinician VLAD GOODWIN M.D. Attending Clinician Unavailable Citlali Kenny Attending Clinician CITLALI KENNY M.D. Attending Clinician Unavailable Matilda Nicholson Attending Clinician Deric Lee Attending Clinician SABAS SCHWAB Admitting Clinician Unavailable Sabas Schwab MD Admitting Clinician JOSE HOOVER Admitting Clinician Unavailable MD JOSE HOOVER Admitting Clinician Unavailable SABAS AQUINO Admitting Clinician Unavailable ABDON VENTURA Admitting Clinician Unavailable Deric Lee Admitting Clinician Payers Payer Name Policy Type Policy Number Effective Date Expiration Date Alannah beverly MEDICARE PART A [id number] 2007 \\T\\ B 00:00:00 [employer] INDEMNITY [id number] 2013 00:00:00 Problems Condition Condition Condition Status Onset Resolution Last Treating Co mments Source Name Details Category Date Date Treatment Clinician Date SIRS SIRS Disease Active [facility] (systemic (systemic 08-07 [facility] s inflammato inflammato 00:00: Ms dical ry ry 00 [place] response response syndrome) syndrome) Acute Acute Disease Active [facility] post-opera post-opera 31 Jennifer kes tive pain tive pain 00:00: Medi saira 00 Center Cardiogeni Cardiogeni Disease Active [facility] shock c shock 08-06 [facility] Medical 00 [place] Fluid Fluid Disease Active [facility] overload overload 08-06 [facility] 00:[facility]: Medical 00 [place] Thrombocyt Thrombocyt Disease Active [facility] openia openia 08-06 [facility] 00:[facility]: Medical 00 [place] Hyperglyce Hyperglyce Disease Active [facility] daija daija 08-06 [facility] 00:[facility]: Medical 00 [place] Thrombocyt Thrombocyt Disease Active [facility] openia openia 31 [facility] Coronary Coronary Disease Active [facility] arterioscl arterioscl 30 Jennifer kes erosis erosis 00:00: Medical 00 [place] 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 [facility] 4 4 530 [facility] 00[facility] Center Bradycardi Bradycardi Disease Active [facility] a a 30 [facility] 00[facility] Acute Acute Disease Active [facility] prerenal prerenal 30 [facility] azotemia azotemia 00:00: Medica l 00 Center Hyperchlor Hyperchlor Disease Active [address] emic emic 5-30 [facility] metabolic metabolic 00:00: Medi saira acidosis acidosis 00 Center Acute Acute Disease Active [facility] blood loss blood loss 5-30 Jennifer kes anemia anemia 00:00: Medical 00 Center Chronotrop Chronotrop Disease Active [facility] ic ic 5-30 [facility] incompeten incompeten 00:00: Me dical ce ce 00 Center S/P S/P Disease Active [facility] carotid carotid 5-22 [facility] endarterec endarterec 00:00: Me dical carmen carmen 00 Center Acute Acute Disease Active [facility] respirator respirator 5-22 Jennifer kes y y 00:00: Medical insufficie insufficie 00 Ce nter ncy ncy Hypertensi Hypertensi Disease Active [facility] ve urgency ve urgency 5-22 Jennifer kes 00:00: Medical 00 Center Carotid Carotid Disease Active [facility] stenosis, stenosis, 07-27 [facility] s right right 00:00: Medical 00 [place] CAD CAD Disease Active [facility] (coronary (coronary 07-27 Luke s artery artery 00:00: Medical disease) disease) 00 Center STROKE, STROKE, Diagnosis Active 2015-02-05 Memoria EMOBOLIC EMOBOLIC 12-01 16:40:00 l Active 00:00: [place] 12/01/2014 00 [facility] CVA CVA Diagnosis Active 2014-12-13 Mem oria Active 11-08 16:45:00 l 11/08/2014 00:00: Michael altamirano [address] GRAZYNA GRAZYNA Diagnosis Active 2015-02-05 Memoria BILLING BILLING 11-08 16:39:00 l [id number] 00:00: [place] Active 00 11/08/2014 [facility] THYROID THYROID Disease Active Univers NODULE NODULE 2-13 ity of 00:00: [place] [id number] Medical Branch Multiple Multiple Problem Active [facility] thyroid thyroid Physici nodules nodules ans Vitamin D Vitamin D Problem Active UT deficiency deficiency Ph ysici disease disease ans Hypercalce Hypercalce Problem Active U T daija daija Physici ans Hypotensio Hypotensio Disease Active [facility] n due to n due to [facility] hypovolemi hypovolemi Me dical a a Center Normal Normal Disease Active [facility] anion gap anion gap Luke s metabolic metabolic Medi saira acidosis acidosis Center Asthma Asthma Problem Resolve 2015-04-13 Mem oria (disorder) (disorder) d 05:10:29 l Resolved [place] Problem 04/13/2015 [facility], FELIZ Wild, FELIZ [place] dm dm Problem Resolve 2015-04-13 Tobi benedict (qualifier (qualifier d 05:10:29 l value) value) [place] Resolved Problem 04/13/2015 [facility], [facility]ELIZ [place] [place] Glaucoma Glaucoma Problem Resolve 2015-04-13 Memoria (disorder) (disorder) d 05:10:29 l Resolved [place] Problem 04/13/2015 [facility], FELIZ Wild[facility] [place] Hypertensi Hypertens Problem Resolve 2015-04-13 Memoria ve louise d 05:10:29 l disorder, disorder, Herm bon systemic systemic arterial arterial (disorder) (disorder) Resolved Problem 04/13/2015 [facility], FELIZ Wild,[facility] [place] Myocardial Myocardia Problem Resolve 2015-04-13 Memoria infarction l d 05:10:29 l (disorder) infarction He rmann (disorder) Resolved Problem 04/13/2015 [facility], FELIZ Wild, FELIZ [place] Diabetic Diabetic Problem Resolve 2015-04-13 Memoria neuropathy neuropathy d 05:10:29 l (disorder) (disorder) He rmann Resolved Problem 04/13/2015 [facility], FELIZ Wild, FELIZ Rubi Transient Transient Problem Resolve 2015-04-13 Memoria ischemic ischemic d 05:10:29 l attack attack [place] (disorder) (disorder) Resolved Problem 04/13/2015 [facility], FELIZ Wild, FELIZ [place] CEREBRAL CEREBRAL Diagnosis Active 2015-02-05 Memoria EMBOLISM W EMBOLISM W 16:40:00 l CI CI Active [facility] CVA CVA Diagnosis Active 2015-02-05 Mem oria Active 16:40:00 l [facility] Clotting Clotting Problem Active UT disorder disorder Physic i ans Muscle Muscle Problem Active UT weakness weakness Physic i ans 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 Physici ans Stroke, Stroke, Problem Active UT embolic embolic Physici ans Diabetes Diabetes Problem Active UT mellitus mellitus Physic i type 2, type 2, ans uncontroll uncontroll ed ed Essential Essential Problem Active UT (primary) (primary) Phys ici hypertensi hypertensi an s on on Hyperlipid Hyperlipid Problem Active U T emia emia Physici ans Allergies, Adverse Reactions, Alerts Allergy Allergy Status Severity Reaction(s) Onset Inactive Treating Comm ents Source Name Type Date Date Clinician TREE NUT DRUG Active Swelling Univer s INGREDI 08-16 ity of 00:00: [place] 00 Medical Branch Tree Nut Propensi Active Swelling Daughter Un adriane ty to 10 reports ity of adverse 00:00: pt has [place] reaction 00 swelling Medica l s when she Branch consume peanuts and tree nuts and she wanted this documente d within the EMR. Tree Nut Drug Active Swelling Daughter [facility] Allergy 08-16 [facility] 00:[facility]: pt has Medical 00 swelling Center when she consume peanuts and tree nuts and she wanted this documente d within the EMR. Insulin Propensi Active [facility] Glargine ty to 5-21 [facility] adverse 00:00: Medical reaction 00 Center s Meperidi Propensi Active [facility] ne ty to 5-21 [facility] adverse 00:00: Medical reaction 00 Center s Metformi Propensi Active [facility] n ty to 5-21 [facility] adverse 00:00: Medical reaction 00 Center s Niacin Propensi Active [facility] Preparat ty to 5-21 [facility] ions adverse 00:00: Medical reaction 00 Center s Peanut Drug Active Swelling Daughter [facility] Allergy 21 reports [facility] 00:00: pt has Medical 00 swelling Center when she consume peanuts and tree nuts and she wanted this documente d within the EMR. Quinolon Propensi Active [facility] es ty to 5-21 [facility] adverse 00:00: Medical reaction 00 Center s Sitaglip Propensi Active 2018- [facility] tin ty to 5-21 [facility] adverse 00:00: Medical reaction 00 Center s Starch Propensi Active 2018- [facility] ty to 5-21 [facility] adverse 00:00: Medical reaction 00 Center s Statins- Propensi Active [facility] Hmg-Coa ty to 5-21 [facility] Reductas adverse 00:00: Medical e reaction 00 Center Inhibito s rs Amoxicil Propensi Active [facility] andrew ty to 5-21 [facility] adverse 00:00: Medical reaction 00 Center s Tetanus Propensi Active [facility] Vaccines ty to 5-21 [facility] And adverse 00:00: Medical Toxoid reaction 00 Center s Angioten Propensi Active [facility] sin ty to 5-21 [facility] I,Human adverse 00:00: Medical reaction 00 Center s Caffeine Propensi Active [facility] ty to 5-21 [facility] adverse 00:00: Medical reaction 00 Center s Clavulan Propensi Active [facility] ic Acid ty to 5-21 [facility] adverse 00:00: Medical reaction 00 Center s Diphther Propensi Active [facility] ia-[place] ty to 5-21 [facility] us adverse 00:00: Medical Toxoids reaction 00 [place] Ped s Exenatid Propensi Active [facility] e ty to 5-21 [facility] adverse 00:00: Medical reaction 00 Center s Ezetimib Propensi Active [facility] e ty to 521 [facility] adverse 00:00: Medical reaction 00 Center s Glimepir Propensi Active [facility] rodríguez ty to 5-21 [facility] adverse 00:00: Medical reaction 00 Center s DIPHTHER DRUG Active Unknown-Cmnt 2018- Un adriane IA-TETAN 5-21 ity of [place] 00:00: [place] TOXOIDS 00 Medical [facility] Branch EZETIMIB DRUG Active Unknown-Cmnt 2019-0 Un adriane E INGREDI 5-21 ity of 00:00: 00 Medical Branch INSULIN DRUG Active Unknown-Cmnt 2019-0 Uni vers GLARGINE INGREDI 5-21 ity of 00:00: [place] 00 Medical Branch METFORMI DRUG Active Unknown-Cmnt 2019-0 Un adriane N INGREDI 5-21 ity of 00:00: [place] 00 Medical Branch NIACIN Drug Active Unknown-Cmnt 2019-0 Univ ers PREPARAT Class 5-21 ity of IONS 00:00: [place] 00 Medical Branch PEANUT DRUG Active Swelling 2019-0 Univers INGREDI 5-21 ity of 00:00: [place] 00 Medical Branch QUINOLON Drug Active Unknown-Cmnt 2019-0 Un adriane ES Class 5-21 ity of 00:00: [place] 00 Medical Branch SITAGLIP DRUG Active Unknown-Cmnt Un adriane TIN INGREDI - ity of 00:00: [place] 00 Medical Branch STARCH DRUG Active Unknown-Cmnt Univ ers INGREDI 07-27 ity of 00:00: [place] 00 Medical Branch STATINS- Drug Active Unknown-Cmnt Un adriane HMG-COA Class -21 ity of REDUCTAS 00:00: [place] E 00 Medical INHIBITO Branch RS TETANUS Drug Active Unknown-Cmnt Uni vers VACCINES Class - ity of AND 00:00: [place] TOXOID 00 Medical Branch ANGIOTEN DRUG Active Unknown-Cmnt Un adriane SIN INGREDI 07-27 ity of I,HUMAN 00:00: [place] 00 Medical Branch Peanut Propensi Active Swelling Daughter Univ ers ty to 07-27 reports ity of adverse 00:00: pt has [place] reaction 00 swelling Medica l s when she Branch consume peanuts and tree nuts and she wanted this documente d within the EMR. CAFFEINE DRUG Active Unknown-Cmnt Un adriane INGREDI 07-27 ity of 00:00: [place] 00 Medical Branch CLAVULAN DRUG Active Unknown-Cmnt Un adriane IC ACID INGREDI 07-27 ity of 00:00: [place] 00 Medical Branch Hydrocod Propensi Active [facility] one-Acet ty to 07-27 [facility] aminophe adverse 00:00: Medical n reaction 00 Center s GLIMEPIR DRUG Active Unknown-Cmnt Un adriane RODRÍGUEZ INGREDI 1-13 ity of 00:00: [place] 00 Medical Branch HYDROCOD DRUG Active Unknown-Cmnt Un adriane ONE-ACET 1-13 ity of AMINOPHE 00:00: [place] N 00 Medical Branch INSULIN DRUG Active Unknown-Cmnt Uni vers LISPRO INGREDI 1-13 ity of 00:00: [place] 00 Medical Branch MEPERIDI DRUG Active Unknown-Cmnt Un adriane NE HCL INGREDI 1-13 ity of 00:00: [place] 00 Medical Branch METFORMI DRUG Active Unknown-Cmnt Un adriane N HCL INGREDI 1-13 ity of 00:00: [place] 00 Medical Branch NIACIN DRUG Active Hives Univers INGREDI 1-13 ity of 00:00: [place] 00 Medical Branch AMOXICIL DRUG Active Unknown-Cmnt 2008-0 Un adriane ANDREW INGREDI 1-13 ity of 00:00: [place] 00 Medical Branch PIOGLITA DRUG Active Unknown-Cmnt 2008- Un adriane ZONE INGREDI 1-13 ity of 00:00: [place] 00 Medical Branch POTASSIU DRUG Active Unknown-Cmnt Un adriane M INGREDI 1-13 ity of 00:00: [place] 00 Medical Branch ROSUVAST DRUG Active Unknown-Cmnt Un adriane ATIN INGREDI 1-13 ity of CALCIUM 00:00: [place] 00 Medical Branch SIMVASTA DRUG Active Unknown-Cmnt Un adriane TIN INGREDI 1-13 ity of 00:00: [place] 00 Medical Branch Amoxicil Propensi Active Unknown - Uni vers andrew ty to See comments 1-13 ity of adverse 00:00: [place] reaction 00 Medical s Branch ASPIRIN DRUG Active Unknown-Cmnt Uni vers INGREDI 1-13 ity of 00:00: [place] 00 Medical Branch Aspirin Propensi Active Unknown - 2008- Univ ers ty to See comments 1-13 ity of adverse 00:00: [place] reaction 00 Medical s Branch Atorvast Propensi Active Unknown - 2008- Weakness U nivers atin ty to See comments 1-13 ity of adverse 00:00: [place] reaction 00 Medical s Branch Exenatid Propensi Active Unknown - 2008-0 Leg pain U nivers e ty to See comments 1-13 / ity of adverse 00:00: Weakness [place] reaction 00 Medical s Branch Diphenhy Propensi Active Unknown - 2008- Uni vers dramine ty to See comments 1-13 ity of Hcl adverse 00:00: [place] reaction 00 Medical s Branch Glimepir Propensi Active Unknown - 2008-0 Leg pain U nivers rodríguez ty to See comments 1-13 / ity of adverse 00:00: weakness [place] reaction 00 Medical s Branch Hydrocod Propensi Active Unknown - 2008-0 Uni vers one-Acet ty to See comments 1-13 it y of aminophe adverse 00:00: [place] n reaction 00 Medical s Branch ATORVAST DRUG Active Unknown-Cmnt 2008- Un adriane ATIN INGREDI 1-13 ity of 00:00: [place] 00 Medical Branch Insulin Propensi Active Unknown - Leg Univ ers Lispro ty to See comments 1-13 pain/Weak i ty of adverse 00:00: ness [place] reaction 00 Medical s Branch Meperidi Propensi Active Unknown - Uni vers ne Hcl ty to See comments 1-13 ity of adverse 00:00: [place] reaction 00 Medical s Branch Metformi Propensi Active Unknown - Leg pain U nivers n Hcl ty to See comments 1-13 ity of adverse 00:00: [place] reaction 00 Medical s Branch Niacin Propensi Active Hives 2008- Univers ty to 1-13 ity of adverse 00:00: [place] reaction 00 Medical s Branch Pioglita Propensi Active Unknown - Leg pain/ Univers zone ty to See comments 1-13 Weakness it y of adverse 00:00: [place] reaction 00 Medical s Branch Potassiu Propensi Active Unknown - Uni vers m ty to See comments 1-13 ity of adverse 00:00: [place] reaction 00 Medical s Branch EXENATID DRUG Active Unknown-Cmnt Un adriane E INGREDI 1-13 ity of 00:00: [place] 00 Medical Branch Rosuvast Propensi Active Unknown - Leg pain U nivers atin ty to See comments 1-13 ity of Calcium adverse 00:00: [place] reaction 00 Medical s Branch Simvasta Propensi Active Unknown - Leg pain/ Univers tin ty to See comments 1-13 Weakness it y of adverse 00:00: [place] reaction 00 Medical s Branch DIPHENHY DRUG Active Unknown-Cmnt Un adriane DRAMINE INGREDI 1-13 ity of HCL 00:00: [place] 00 Medical Branch Amaryl drug Active UT allergy Physici ans amoxicil drug Active UT andrew allergy Physici ans Angioten drug Active UT sin allergy Physici Receptor ans Blockers Augmenti drug Active UT n allergy Physici ans Byetta drug Active UT SOLN allergy Physici ans Cipro drug Active UT allergy Physici ans hydrocod drug Active UT one allergy Physici ans Januvia drug Active UT TABS allergy Physici ans Lantus drug Active UT allergy Physici ans Levaquin drug Active UT allergy Physici ans Lipitor drug Active UT allergy Physici ans Meperidi drug Active UT ne HCl allergy Physici TABS ans MetFORMI drug Active UT N HCl allergy Physici TABS ans Niaspan drug Active UT TBCR allergy Physici ans Statins drug Active UT allergy Physici ans TETANUS drug Active UT allergy Physici ans Zetia drug Active UT allergy Physici ans Demerol Demerol Active Memoria HCl HCl l [place] glimepir glimepir Active Memori a rodríguez rodríguez l [place] HYDROcod HYDROcod Active Memori a one-PPA one-PPA l [place] Januvia Januvia Active Memoria l [place] Lantus Lantus Active Memoria l [place] Levaquin Levaquin Active Memori a l [place] metFORMI metFORMI Active Memori a N N l [place] Niaspan Niaspan Active Memoria ER ER l [place] statins statins Active Memoria l [place] tetanus tetanus Active Memoria immune immune l globulin globulin Michael n Zetia Zetia Active Memoria l [place] amoxicil amoxicil Active Memori a andrew andrew l [place] angioten angioten Active Memori a sin sin l converti converti Michael n ng ng enzyme enzyme inhibito inhibito rs rs antihist antihist Active Memori a amines amines l [place] Byetta Byetta Active Memoria Prefille Prefille l d Pen [facility] [place] Family History Family Member Diagnosis Comments Start Date Stop Date Source Father Family history of coronary [facility] arteriosclerosis Social History Social Habit Start Date Stop Date Quantity Comments Source History SDOH [facility] Std Medical Cent[facility] r Drinks History SDOH [facility] Alcohol Binge Medical Darren ter History SDOH [facility] Alcohol Comment Medical C enter [facility] sure [facility] SARS-CoV-2 [facility] [place] [facility] (event) Branch Alcohol intake 2018-08-25 2018-08-[address] [facility] [facility] es 00:00:00 00:00:00 non-drinker of Medical Ce nter alcohol (finding) History SDOH 2018-08-05 2018-08-[address] [facility] Alcohol Frequency 00:00:00 00:00:00 [facility] Tobacco use and 2018-07-27 2018-07-[address] [facility] Jennifer kes exposure 00:00:00 00:00:00 [facility] Social History 2014-11-09 2014-11-09 [facility] 03:26:32 03:26:32 Sex Assigned At [address] Jennifer kes 00:00:00 00:00:00 [facility] Center Smoking Status Start Date Stop Date Source Former smoker [place] [facility] Unknown if ever smoked [facility] Never smoker [facility] Medications Ordered Filled Start Stop Current Ordering Indication Dosage Frequency Signature Comments Components Source Medication Medication Date Date Medication? Clinician (SIG) Name Name neomycin-po Yes PRN, Univer s lymyxin-dex 05-29 Starting ity of amethasone 14:21: on Thu [place] (MAXITROL) 00 05/29/21 at Med ical 3.5 0921, Branch mg/g-10,000 Until unit/g-0.1 Discontinu % ed, ophthalmic Routine, ointment Intra-op neomycin-po 2021- No PRN, Unive rs lymyxin-dex 05-29 Starting ity of amethasone 14:21: 17:00 on Thua s (MAXITROL) 00 :06 05/29/21 at Med ical 3.5 0921, Branch mg/g-10,000 Until Thu unit/g-0.1 05/29/21 at % 1200, ophthalmic Routine, ointment Intra-op dexamethaso Yes PRN, Univer s ne 05-29 Starting ity of (DECADRON 14:20: on Thu PHOSPHATE) 00 05/29/21 at Med ical injection 0920, Branch Until Discontinu ed, Routine, Intra-op dexamethaso 2021- No PRN, Unive rs ne 05-29 Starting ity of (DECADRON 14:20: 17:00 on Thu PHOSPHATE) 00 :06 05/29/21 at Med ical injection 0920, Branch Until Thu05/29/21 at 1200, Routine, Intra-op carbachoL Yes PRN, Univers (MIOSTAT) 05-29 Starting ity of 0.01 % 14:19: on Thu intraocular 00 05/29/21 at Me dical injection 0919, Branch Until Discontinu ed, Routine, Intra-op carbachoL 2021- No PRN, Univers (MIOSTAT) 05-29 Starting ity o f 0.01 % 14:19: 17:00 on Thu [place] intraocular 00 :06 05/29/21 at Ms dical injection 0919, Branch Until 05/29/21 at 1200, Routine, Intra-op DUOVISC Yes PRN, Univers (DUOVISC 05-29 Starting ity of VISCO 14:07: on Thu ELASTIC) 3 00 05/29/21 at [facility] ical %-4 %(0.5 0907, Branch mL) 1 % Until (0.55 mL) Discontinu intraocular ed, injection Routine, Intra-op EPINEPHrine Yes PRN, Univer s 1:1,000 (1 05-29 Starting ity o f mg/mL) 14:07: on Thu (ADRENALIN) 00 05/29/21 at Ms dical injection 0907, Branch Until Discontinu ed, Routine, Intra-op balanced Yes PRN, Univers salt irrig 05-29 Starting ity o f soln comb1 14:07: on Thu (BSS PLUS) 00 05/29/21 at [facility] ical ophthalmic 0907, Branch solution Until 500 mL bag Discontinu ed, Routine, Intra-op DUOVISC 2021- No PRN, Univers (DUOVISC 05-29 Starting ity of VISCO 14:07: 17:00 on Thu ELASTIC) 3 00 :06 05/29/21 at [facility] ical %-4 %(0.5 0907, Branch mL) 1 % Until Wed (0.55 mL) 05/29/21 at intraocular 1200, injection Routine, Intra-op EPINEPHrine 2021- No PRN, Unive rs 1:1,000 (1 05-29 Starting ity of mg/mL) 14:07: 17:00 on Thu (ADRENALIN) 00 :06 05/29/21 at Ms dical injection 0907, Branch Until 05/29/21 at 1200, Routine, Intra-op balanced 2021- No PRN, Univers salt irrig 05-29 Starting ity of soln comb1 14:07: 17:00 on Thu [place] (BSS PLUS) 00 :06 05/29/21 at Med ical ophthalmic 0907, Branch solution Until Wed 500 mL bag 05/29/21 at 1200, Routine, Intra-op water for Yes PRN, Univers irrigation 05-29 Starting ity o f irrigation 14:01: on Thu [place] solution 05/29/21 at Medic al 0901, Branch Until Discontinu ed, Routine, Intra-op water for 2021- No PRN, Univers irrigation 05-29 Starting ity of irrigation 14:01: 17:00 on Thu [place] solution 00 :06 05/29/21 at Medic al 0901, Branch Until Thu05/29/21 at 1200, Routine, Intra-op Hyaluronida Yes PRN, Univer s se, Human 05-29 Starting ity of Recomb. 13:59: on Thu (HYLENEX) 05/29/[address] [facility] injection 0859, Branch Until Discontinu ed, Routine, Intra-op eye block Yes PRN, Univers syringe 11 05-29 Starting ity o f mL 13:59: on Thu05/29/21 at Medical 0859, Branch Until Discontinu ed, Intra-op Hyaluronida 2021- No PRN, Unive rs se, Human 05-29 Starting ity o f Recomb. 13:59: 17:00 on Thu (HYLENEX) 00 :06 05/29/21 at Medi saira injection 0859, Branch Until Thu05/29/21 at 1200, Routine, Intra-op eye block 2021- No PRN, Univers syringe 11 05-29 Starting ity of mL 13:59: 17:00 on Thu [place] 00 :06 05/29/21 at Medical 0859, Branch Until Thu05/29/21 at 1200, Intra-op lactated 2021- No 1000mL at 42 Unive rs ringers IV 05-29 mL/hr, ity of infusion 12:15: 12:33 1,000 mL, Guillermo as 1,000 mL 00 :00 IV Medical Infusion, Branch ONCE, 1 dose, On Thu05/29/21 at 0715, Routine, DSU Pre-op cyclopent 2021- No .5mL 0.5 mL, Univ ers 1%-tropic 05-29 Left Eye, ity of 1%-phenyl 12:15: 12:21 ONCE, 1 [place] 2.5%-ketor 00 :00 dose, On Medic al 0.5% Thu Branch (MYDRIATIC 05/29/21 at #5) 0715, ophthalmic Routine, solution DSU Pre-op syringe 0.5 mL lactated 2021- No 1000mL at 42 Unive rs ringers IV 05-29-23 mL/hr, ity of infusion 12:15: 12:33 1,000 mL, Guillermo as 1,000 mL 00 :00 IV Medical Infusion, Branch ONCE, 1 dose, On Thu05/29/21 at 0715, Routine, DSU Pre-op cyclopent 2021- No .5mL 0.5 mL, Univ ers 1%-tropic 05-29 Left Eye, ity of 1%-phenyl 12:15: 12:21 ONCE, 1 [place] 2.5%-ketor 00 :00 dose, On Medic al 0.5% Thu Branch (MYDRIATIC 05/29/21 at #5) 0715, ophthalmic Routine, solution DSU Pre-op syringe 0.5 mL clopidogrel Yes 75mg Take 75 mg Univers 75 mg 3-23 by mouth. ity of tablet 09:55: [address] hydroxyurea Yes Take by Uni vers 500 mg 3-23 mouth ity of capsule 09:55: [address] meclizine 0 Yes 25mg Take 25 mg Un adriane 25 mg 3-23 by mouth. ity of tablet 09:55: [address] magnesium 0 Yes 400mg Take 400 Uni vers oxide 400 3-23 mg by ity of mg (241.3 09:55: mouth. [place] mg Medical magnesium) Branch tablet Cholecalcif 0 Yes 5000U Take 5,000 Univers rosalie, 3-23 Units by ity of Vitamin D3, 09:55: mouth. [place] 5,000 unit Medical tablet Branch furosemide 0 Yes 40mg Take 40 mg U nivers 40 mg 3-23 by mouth ity of tablet 09:55: daily. [address] traMADoL 50 0 Yes 25mg Take 25 mg Univers mg tablet 3-23 by mouth. ity o f 09:55: [address] hydrOXYzine Yes 25mg Take 25 mg Univers (VISTARIL) 3-23 by mouth 3 ity of 25 mg 09:55: (three) [place] capsule 02 times Medical daily as Branch needed for Itching. insulin Yes 25U inject 25 Unive rs detemir 3-23 Units ity of U-100 09:55: under the [place] (LEVEMIR 02 skin every Medic al U-100 morning. Branch INSULIN) 100 unit/mL injection insulin Yes 5U inject 5 Univer s detemir 3-23 Units ity of U-100 100 09:55: under the [place] as unit/mL 02 skin every Medica l injection evening. Branch insulin Yes inject [facility] aspart 3-23 under the ity of U-100 09:55: skin 3 [place] (NOVOLOG 02 (three) Medical FLEXPEN times Branch U-100 daily INSULIN) before 100 unit/mL meals. (3 mL) Sliding injection Scale clopidogrel Yes 75mg Take 75 mg [facility] 75 mg 3-23 by mouth. ity of tablet 09:55: [address] hydroxyurea Yes Take by Uni vers 500 mg 3-23 mouth ity of capsule 09:55: [address] meclizine Yes 25mg Take 25 mg Un adriane 25 mg 3-23 by mouth. ity of tablet 09:55: [address] magnesium Yes 400mg Take 400 Uni vers oxide 400 3-23 mg by ity of mg (241.3 09:55: mouth. [place] mg Medical magnesium) Branch tablet Cholecalcif Yes 5000U Take 5,000 [facility] rosalie, 3-23 Units by ity of Vitamin D3, 09:55: [place] 5[place] unit 02 Medical tablet Branch furosemide Yes 40mg Take 40 mg U nivers 40 mg 3-23 by mouth ity of tablet 09:55: daily. [address] traMADoL 50 0 Yes 25mg Take 25 mg [facility] mg tablet 3-23 by mouth. ity o f 09:55: [address] hydrOXYzine Yes 25mg Take 25 mg [facility] (VISTARIL) 3-23 by mouth 3 ity of 25 mg 09:55: (three) [place] capsule 02 times Medical daily as Branch needed for Itching. insulin 0 Yes 25U inject 25 Unive rs detemir 3-23 Units ity of U-100 09:55: under the [place] (LEVEMIR 02 skin every Medic al U-100 morning. Branch INSULIN) 100 unit/mL injection insulin 0 Yes 5U inject 5 Univer s detemir 3-23 Units ity of U-100 100 09:55: under the [place] as unit/mL 02 skin every Medica l injection evening. Branch insulin Yes inject [facility] aspart 3-23 under the ity of U-100 09:55: skin 3 [place] (NOVOLOG 02 (three) Medical FLEXPEN times Branch U-100 daily INSULIN) before 100 unit/mL meals. (3 mL) Sliding injection Scale clopidogrel 0 Yes 75mg Take 75 mg [facility] 75 mg 3-23 by mouth. ity of tablet 09:55: [address] hydroxyurea Yes Take by Uni vers 500 mg 3-23 mouth ity of capsule 09:55: [address] meclizine 0 Yes 25mg Take 25 mg Un adriane 25 mg 3-23 by mouth. ity of tablet 09:55: [address] Branch magnesium Yes 400mg Take 400 Uni vers oxide 400 3-23 mg by ity of mg (241.3 09:55: mouth. [place] mg 02 Medical magnesium) Branch tablet Cholecalcif 0 Yes 5000U Take 5,000 [facility] rosalie, 3-23 Units by ity of Vitamin D3, 09:55: [place]. [place] 5[place]000 unit 02 Medical tablet Branch furosemide 0 Yes 40mg Take 40 mg U nivers 40 mg 3-23 by mouth ity of tablet 09:55: daily. [address] Branch traMADoL 50 0 Yes 25mg Take 25 mg [facility] mg tablet 3-23 by mouth. ity o f 09:55: [address] hydrOXYzine 0 Yes 25mg Take 25 mg [facility] (VISTARIL) 3-23 by mouth 3 ity of 25 mg 09:55: (three) [place] capsule 02 times Medical daily as Branch needed for Itching. insulin 0 Yes 25U inject 25 Unive rs detemir 3-23 Units ity of U-100 09:55: under the [place] (LEVEMIR 02 skin every Medic al U-100 morning. Branch INSULIN) 100 unit/mL injection insulin Yes 5U inject 5 Univer s detemir 3-23 Units ity of U-100 100 09:55: under the [place] as unit/mL 02 skin every Medica l injection evening. Branch insulin Yes inject [facility] aspart 3-23 under the ity of U-100 09:55: skin 3 [place] (NOVOLOG 02 (three) Medical FLEXPEN times Branch U-100 daily INSULIN) before 100 unit/mL meals. (3 mL) Sliding injection Scale insulin 2021- No 25U inject 25 Univ ers detemir 3-23 03-23 Units ity of U-100 100 09:25: 00:00 under the [place] unit/mL 58 :00 skin. Medical injection Branch insulin 2021- No 15U inject 15 Univ ers aspart 3-23 03-23 Units ity of U-100 100 09:25: 00:00 under the [place] unit/mL (3 58 :00 skin. Medical mL) Branch injection insulin 2021- No 25U inject 25 Univ ers detemir 3-23 03-23 Units ity of U-100 100 09:25: 00:00 under the [place] unit/mL 58 :00 skin. Medical injection Branch insulin 2021- No 15U inject 15 Univ ers aspart 3-23 03-23 Units ity of U-100 100 09:25: 00:00 under the [place] unit/mL (3 58 :00 skin. Medical mL) Branch injection timolol 0.5 2021-0 Yes INSTILL Uni vers % 2-01 ONE (1) ity of ophthalmic 00:00: DROP(S) IN [place] solution 00 EACH EYE Medical TWICE A Branch DAY. timolol 0.5 2021-0 Yes INSTILL Uni vers % 2-01 ONE (1) ity of ophthalmic 00:00: DROP(S) IN [place] solution 00 EACH EYE Medical TWICE A Branch DAY. timolol 0.5 2021-0 Yes INSTILL Uni vers % 2-01 ONE (1) ity of ophthalmic 00:00: DROP(S) IN [place] solution 00 EACH EYE Medical TWICE A Branch DAY. rOPINIRole 2021-0 Yes TAKE ONE Uni vers 0.5 mg 1-27 (1) ity of tablet 00:00: TABLET(S) BY MOUTH Medical ONCE A DAY Branch IN THE MORNING. rOPINIRole 2-0 Yes TAKE ONE Uni vers 0.5 mg 1-27 (1) ity of tablet 00:00: TABLET(S) 00 BY MOUTH Medical ONCE A DAY Branch IN THE MORNING. rOPINIRole 2-0 Yes TAKE ONE Uni vers 0.5 mg 1-27 (1) ity of tablet 00:00: TABLET(S) 00 BY MOUTH Medical ONCE A DAY Branch IN THE MORNING. atorvastati 2021-0 Yes 40mg Take 40 mg Univers n 40 mg 1-17 by mouth ity of tablet 00:00: daily. [address] atorvastati 2021-0 Yes 40mg Take 40 mg Univers n 40 mg 1-17 by mouth ity of tablet 00:00: daily. [address] atorvastati 2021-0 Yes 40mg Take 40 mg Univers n 40 mg 1-17 by mouth ity of tablet 00:00: daily. [address] pantoprazol 2021-0 Yes TAKE ONE Un adriane e 40 mg EC 1-03 (1) ity of tablet 00:00: TABLET(S) BY MOUTH Medical ONCE A DAY Branch 1 HOUR BEFORE FOOD IN THE MORNING. pantoprazol 2021-0 Yes TAKE ONE Un adriane e 40 mg EC 1-03 (1) ity of tablet 00:00: TABLET(S) BY MOUTH Medical ONCE A DAY Branch 1 HOUR BEFORE FOOD IN THE MORNING. pantoprazol 2021-0 Yes TAKE ONE Un adriane e 40 mg EC 1-03 (1) ity of tablet 00:00: TABLET(S) BY MOUTH Medical ONCE A DAY Branch 1 HOUR BEFORE FOOD IN THE MORNING. spironolact 2020- Yes 25mg Take 25 mg [facility] one 25 mg 2-28 by mouth ity of tablet 00:00: daily. [address] spironolact 2020- Yes 25mg Take 25 mg [facility] one 25 mg 2-28 by mouth ity of tablet 00:00: daily. [place] 00 Medical Branch spironolact 2020-03 Yes 25mg Take 25 mg [facility] one 25 mg 2-28 by mouth ity of tablet 00:00: daily. Medical Branch apixaban 5 2020-03 Yes 5mg Take 5 mg Un adriane mg tablet 2-05 by mouth. ity o f 00:00: Medical Branch apixaban 5 2020-03 Yes 5mg Take 5 mg Un adriane mg tablet 2-05 by mouth. ity o f 00:00: Medical Branch apixaban 5 2020-03 Yes 5mg Take 5 mg Un adriane mg tablet 2-05 by mouth. ity o f 00:00: Medical Branch Cholecalcif Yes 5000U Take 5,000 [facility] rosalie, 7-15 Units by ity of Vitamin D3, 14:25: [place] 5[place] unit Medical tablet Branch insulin Yes 15U inject 15 Unive rs aspart 7-15 Units ity of U-100 100 14:25: under the [place] unit/mL (3 01 skin. Medical mL) Branch injection magnesium Yes 400mg Take 400 Uni vers oxide 400 7-15 mg by ity of mg (241.3 14:25: mouth. [place] mg Medical magnesium) Branch tablet Cholecalcif Yes 5000U Take 5,000 [facility] rosalie, 7-15 Units by ity of Vitamin D3, 14:25: [place]. [place] 5[place] unit Medical tablet Branch insulin Yes 15U inject 15 Unive rs aspart 7-15 Units ity of U-100 100 14:25: under the [place] as unit/mL (3 01 skin. Medical mL) Branch injection magnesium Yes 400mg Take 400 Uni vers oxide 400 7-15 mg by ity of mg (241.3 14:25: mouth. [place] mg Medical magnesium) Branch tablet clopidogrel Yes 75mg Take 75 mg [facility] 75 mg 7-15 by mouth. ity of tablet 14:25: Medical Branch hydroxyurea Yes Take by Uni vers 500 mg 7-15 mouth ity of capsule 14:25: Medical Branch meclizine Yes 25mg Take 25 mg Un adriane 25 mg 7-15 by mouth. ity of tablet 14:25: Medical Branch insulin Yes 25U inject 25 Unive rs detemir 7-15 Units ity of U-100 100 14:25: under the [place] as unit/mL 00 skin. Medical injection Branch clopidogrel Yes 75mg Take 75 mg [facility] 75 mg 7-15 by mouth. ity of tablet 14:25: [address] [place] [address] Branch hydroxyurea Yes Take by Uni vers 500 mg 7-15 mouth ity of capsule 14:25: Medical Branch meclizine Yes 25mg Take 25 mg Un adriane 25 mg 7-15 by mouth. ity of tablet 14:25: [facility] Branch insulin Yes 25U inject 25 Unive rs detemir 7-15 Units ity of U-100 100 14:25: under the [place] unit/mL 00 skin. Medical injection Branch LYRICA 75 Yes Univers mg capsule 7-10 ity of 00:00: Medical Branch LYRICA 75 Yes Univers mg capsule 7-10 ity of 00:00: Medical Branch LYRICA 75 Yes [facility] mg capsule 7-10 ity of 00:00: Medical Branch LYRICA 75 Yes Univers mg capsule 7-10 ity of 00:00: Medical Branch LYRICA 75 Yes [facility] mg capsule 7-10 ity of 00:00: Medical Branch timolol Yes open angle 1[drp] Q.5D [address] [facility] (BETIMOL) 6-19 glaucoma (two) [facility] % 10:06: times Medical ophthalmic 45 daily. Center solution fluocinonid 2018- Yes Q.5D Apply [facility] (LIDEX[facility] 6-19 topically [facility] 0.05 % 10:06: 2 (two) Medical cream 45 times Center daily. hydroxyurea 2018- Yes Q.5D Take by [facility] (DROXIA) 6-19 mouth 2 [facility] 500 mg 10:06: (two) Medical capsule 45 times Center daily . insulin Yes 10U QD Inject 10 [facility] det[facility] 6-19 Units [facility] U-100 10:06: subcutaneo Medica l (LEVEMIR) 45 usly Center 100 unit/mL nightly injection Before supper.. pregabalin 2019-0 Yes 75mg Q.5D Take [address] [facility] (LYRICA) 75 6-19 by mouth 2 Jennifer kes MG capsule 10:06: (two) Medica l 45 times Center daily. meclizine 2019-0 Yes 25mg Take [address] [facility] [address] [facility] (ANTIVERT) 6-19 by mouth 3 [place] [facility] 25 MG 10:06: (three) Medical tablet 45 times Center daily as needed. rOPINIRole 2019-0 Yes .5mg QD Take 0.[address] [facility] (REQUIP) 6-19 mg by [facility] 0.5 MG 10:06: mouth Medical tablet 45 daily. Center insulin 2019-0 Yes 25U Inject 25 [facility] 6-19 Units [facility] U-100 10:06: subcutaneo Medica l (LEVEMIR) 45 usly daily Cent er 100 unit/mL with injection breakfast. insulin 2019-0 Yes 15U Inject 15 [facility] aspart 6-19 Units [facility] U-100 10:06: subcutaneo Medica l (NOVOLOG) 45 usly 3 Center 100 unit/mL (three) (3 mL) InPn times daily before meals. cholecalcif 2019-0 Yes 5000U QD Take 5,[address] [facility] rosalie, 6-19 Units by [facility] vitamin D3, 10:06: mouth Medic al 5,000 unit 45 daily. Center Tab clopidogrel 2019-0 Yes 75mg QD Take [address] [facility] (PLAVIX) 75 6-19 by mouth Luke s mg tablet 10:06: daily. Medica l 45 Center traMADol 2019-0 Yes 25mg Take [address] [facility] (ULTRAM) 50 6-19 by mouth Luke s mg tablet 10:06: every 6 Medic al 45 (six) Center hours as needed for Pain. timolol 2019-0 Yes open angle 1[drp] Q.5D [address] [facility] (BETIMOL) 6-19 glaucoma (two) [facility] 0.5 % 10:06: times Medical ophthalmic 45 daily. Center solution fluocinonid 2019-0 Yes Q.5D Apply [facility] (LIDEX) 6-19 topically [facility] 0.05 % 10:06: 2 (two) Medical cream 45 times Center daily. hydroxyurea 2019-0 Yes Q.5D Take by [facility] (DROXIA) 6-19 mouth 2 [facility] 500 mg 10:06: (two) Medical capsule 45 times Center daily . insulin 2019-0 Yes 10U QD Inject 10 [facility] 6-19 Units [facility] U-100 10:06: subcutaneo Medica l (LEVEMIR) 45 usly Center 100 unit/mL nightly injection Before supper.. pregabalin 2019-0 Yes 75mg Q.5D Take [address] (LYRICA) 75 6-19 by mouth 2 Jennifer kes MG capsule 10:06: (two) Medica l 45 times Center daily. meclizine 2019-0 Yes 25mg Take [address] [facility] [address] [facility] (ANTIVERT) 6-19 by mouth 3 [place] 25 MG 10:06: (three) Medical tablet 45 times Center daily as needed. rOPINIRole 2019-0 Yes .5mg QD Take 0.[address] [facility] (REQUIP) 6-19 mg by [facility] 0.5 MG 10:06: mouth Medical tablet 45 daily. Center insulin 2019-0 Yes 25U Inject 25 [facility] detemir 6-19 Units [facility] U-100 10:06: subcutaneo Medica l (LEVEMIR) 45 usly daily Cent er 100 unit/mL with injection breakfast. insulin 2019-0 Yes 15U Inject 15 [facility] aspart 6-19 Units [facility] U-100 10:06: subcutaneo Medica l (NOVOLOG) 45 usly 3 Center 100 unit/mL (three) (3 mL) InPn times daily before meals. cholecalcif 2019-0 Yes 5000U QD Take 5,[address] [facility] rosalie, 6-19 Units by [facility] vitamin D3, 10:06: mouth Medic al 5,000 unit 45 daily. Center Tab clopidogrel 2019-0 Yes 75mg QD Take [address] [facility] (PLAVIX) 75 6-19 by mouth Luke s mg tablet 10:06: daily. Medica l 45 Center traMADol 2019-0 Yes 25mg Take [address] [facility] (ULTRAM) 50 6-19 by mouth Luke s mg tablet 10:06: every 6 Medic al 45 (six) Center hours as needed for Pain. magnesium 2019-0 Yes 400mg QD Take [address] [facility] oxide 6-19 mg by [facility] (MAG-OX) 10:06: mouth Medical 400 mg 00 daily . Center (241.3 mg magnesium) tablet pantoprazol 2019-0 Yes 20mg QD Take [address] [facility] e 6-19 by mouth [facility] (PROTONIX) 10:06: daily . Medi saira 40 MG 00 Center tablet magnesium 2019-0 Yes 400mg QD Take [address] [facility] oxide 6-19 mg by [facility] (MAG-OX) 10:06: mouth Medical 400 mg 00 daily . Center (241.3 mg magnesium) tablet pantoprazol 2019-0 Yes 20mg QD Take [address] [facility] e 6-19 by mouth [facility] (PROTONIX) 10:06: daily . Medi saira 40 MG 00 Center tablet aspirin 81 2019-0 Yes 81mg QD Take 1 [facility] 6-[facility] tablet (81 [facility] tablet 00:00: mg total) Medica l 00 by mouth Center daily. aspirin 81 2019-0 Yes 81mg Take 81 mg U nivers mg EC 6-11 by mouth. ity of tablet 00:00: [address] aspirin 81 2019-0 Yes 81mg Take 81 mg U nivers mg EC 6-11 by mouth. ity of tablet 00:00: [address] aspirin 81 2019-0 Yes 81mg Take 81 mg U nivers mg EC 6-11 by mouth. ity of tablet 00:00: [address] aspirin 81 2019-0 Yes 81mg Take 81 mg U nivers mg EC 6-11 by mouth. ity of tablet 00:00: [address] aspirin 81 2019-0 Yes 81mg Take 81 mg U nivers mg EC 6-11 by mouth. ity of tablet 00:00: [address] aspirin 81 2019-0 Yes 81mg QD Take 1 [facility] 6-[facility] tablet (81 [facility] tablet 00:00: mg total) Medica l 00 by mouth Center daily. carvedilol 2019-0 Yes 3.125mg Q.5D Take [address] (COREG) 6-10 tablet [facility] 3.125 MG 00:00: (3.125 mg Medi saira tablet 00 total) by Center mouth 2 (two) times daily. carvedilol 2019-0 Yes 3.125mg Q.5D Take [address] (COREG) 6-10 tablet [facility] 3.125 MG 00:00: (3.125 mg Medi saira tablet 00 total) by Center mouth 2 (two) times daily. Tresiba Tresiba Yes CITLALI 30 QD INJECT 30 UT FlexTouch FlexTouch 11-14 SENDOS UNIT DAILY [facility] 100 UNIT/ML 100 UNIT/ML 00:00: M.D. ans Subcutaneou Subcutaneou 00 s Solution s Solution Pen-injecto Pen-injecto r r Toujeo Toujeo Yes CITLALI 30 QD INJECT 30 U T SoloStar SoloStar 11-12 SENDOS UNIT DAILY [facility] 300 UNIT/ML 300 UNIT/ML 00:00: M.D. ans Subcutaneou Subcutaneou 00 s Solution s Solution Pen-injecto Pen-injecto r r OneTouch OneTouch Yes CITLALI uses 4 UT Delica Delica 09-02 SENDOS daily [facility] Lancets 33G Lancets 33G 00:00: M.D. ans 00 OneTouch OneTouch Yes CITLALI Q0.25D TEST 4 UT Ultra Blue Ultra Blue 09-02 SENDOS TIMES [facility] In Vitro In Vitro 00:00: M.D. DAILY. ans Strip Strip 00 Gabapentin Gabapentin Yes MUNACHI TAKE 1 UT 100 MG Oral 100 MG Oral 3-02 OKPALA CAPSULE AT [facility] Capsule Capsule 00:00: N.P. BEDTIME. ans 00 Aspirin 81 Aspirin 81 2014-03 Yes 1 QD TAKE 1 UT MG TABS MG TABS 0-20 TABLET [facility] 00:00: DAILY. ans 00 MaxEPA No 2 gm, 2 Memoria - cap, l 16:00: Route: PO, [place] 00 Drug form: CAP, Q12H, Start date: 11/10/14 11:00:00, Duration: 30 day, Stop date: 12/10/14 9:00:00 MaxEPA No 2 gm, 2 Memoria -04 cap, l 16:00: Route: PO, [place] 00 Drug form: CAP, Q12H, Start date: 11/10/14 11:00:00, Duration: 30 day, Stop date: 12/10/14 9:00:00 Aspirin 325 Yes 325 mg = 1 Memoria MG Oral -04 tab, PO, l Tablet 15:34: Daily, # [place] 00 30 tab, 0 Refill(s) omega-3 2014- Yes 2 gm = 2 Memori a polyunsatur 9-04 cap, PO, l ated fatty 15:34: Q12H, # 60 [place] acids 1000 00 cap, 0 mg oral Refill(s) capsule Aspirin 325 2014-0 Yes 325 mg = 1 Memoria MG Oral 9-04 tab, PO, l Tablet 15:34: Daily, # [place] 00 30 tab, 0 Refill(s) omega-3 0 Yes 2 gm = 2 Memori a polyunsatur 9-04 cap, PO, l ated fatty 15:34: Q12H, # 60 [facility] [place] acids 1000 00 cap, 0 mg oral Refill(s) capsule [place]-3 0 No 2,000 mg, Memor ia Acid Ethyl 9-04 2 cap, l Esters 14:00: Route: PO, Lidya nn (NURSING HOME) 1000 00 Dosing MG Oral Weight Capsule 105.455, [Lovaza] kg, BID, Start date: 11/10/14 9:00:00, Duration: 30 day, Stop date: 12/09/14 17:00:00 Aspirin 2014-0 No 325 mg, Memoria 9-04 Route: PO, l 14:00: Drug form: [place] 00 TAB, Daily, Dosing Weight 105.455, kg, Start date: 11/10/14 9:00:00, Duration: 30 day, Stop date: 12/09/14 9:00:00 [place]-3 2014-0 No 2,000 mg, Memor ia Acid Ethyl 9-04 2 cap, l [place] 14:00: Route: PO, Lidya nn (NURSING HOME) 1000 00 Dosing MG Oral Weight Capsule 105.455, [Lovaza] kg, BID, Start date: 11/10/14 9:00:00, Duration: 30 day, Stop date: 12/09/14 17:00:00 Aspirin 2015-0 No 325 mg, Memoria 9-04 Route: PO, l 14:00: Drug form: [place] 00 TAB, Daily, Dosing Weight 105.455, kg, Start date: 11/10/14 9:00:00, Duration: 30 day, Stop date: 12/09/14 9:00:00 heparin 2014-0 No 5,000 [facility] 9-04 unit, l 05:00: Route: [place] 00 SUB-Q, Q8H, Dosing Weight 105.455, kg, Start date: 11/10/14 0:00:00, Duration: 30 day, Stop date: 12/09/14 16:00:00 heparin No 5,000 [facility]oria 9-04 unit, l 05:00: Route: [place] 00 SUB-Q, Q8H, Dosing Weight 105.455, kg, Start date: 11/10/14 0:00:00, Duration: 30 day, Stop date: 12/09/14 16:00:00 [place] No Notes: Memoria 9-04 Same as l 03:19: [place] Do [place] 00 not hold insulin without contacting prescriber "single patient use only" [place] No Notes: Memoria -04 Same as l 03:19: [place] Do [place] 00 not hold insulin without contacting prescriber "single patient use only" brinzolamid No brinzolami Memoria e 1% + 9-04 de 1% + l brimonidine 03:00: brimonidin [place] 0.2% 00 e 0.2% (Simbrinza) (Simbrinza ), 1 drp, Drug form: MISC, Route: Each Affected Eye, TID, 11/09/14 22:00:00, Duration: 30 day, Stop date: 12/09/14 14:00:00 brinzolamid No brinzolami Memoria e 1% + 9-04 de 1% + l brimonidine 03:00: brimonidin [place] 0.2% 00 e 0.2% (Simbrinza) (Simbrinza ), 1 drp, Drug form: MISC, Route: Each Affected Eye, TID, 11/09/14 22:00:00, Duration: 30 day, Stop date: 12/09/14 14:00:00 Brimonidine No 1 drp, Tobi benedict tartrate 2 11-10 Route: l MG/ML / 02:00: Each [place] brinzolamid 00 Affected e 10 MG/ML Eye, Ophthalmic Dosing Suspension Weight 105.455, kg, TID, Start date: 11/09/14 21:00:00, Duration: 30 day, Stop date: 12/09/14 17:00:00 Brimonidine No 1 drp, Tobi benedict tartrate [...] Refill(s) e 10 MG/ML Ophthalmic Suspension [Simbrinza] Brimonidine Yes 1 drp, Tobi benedict tartrate 2 11-09 OPTH, TID, l MG/ML / 14:21: # 8 mL, 3 Lidya nn brinzolamid 00 Refill(s) e 10 MG/ML Ophthalmic Suspension [Simbrinza] INV No 75 mg, 1 Memoria Clopidogrel 11-09 tab, l 75mg/placeb 14:00: Route: PO, [place] o tablet 00 Drug form: Maintenance TAB, Dose Daily, Start date: 11/09/14 9:00:00, Duration: 89 day, Stop date: 02/05/15 9:00:00 Aspirin 325 No Notes: Tobi benedict MG Oral 11-09 Take with l Tablet 14:00: food. INV No 75 mg, 1 Memoria Clopidogrel 11-09 tab, l 75mg/placeb 14:00: Route: PO, [place] o tablet 00 Drug form: Maintenance TAB, Dose Daily, Start date: 11/09/14 9:00:00, Duration: 89 day, Stop date: 02/05/15 9:00:00 Aspirin 325 No Notes: Tobi benedict MG Oral 11-09 Take with l Tablet 14:00: food. Insulin, No Notes: Memoria Aspart, 11-09 Roll in l Human 05:11: palms of [place] 00 hands gently; Do not shake vigorously . (Same as: NovoLOG) "single patient use only" Stable for 28 days at room temperatur e. Expires in days from ____Date Dextrose 0 No 12.5 gm, Memor ia 50% Syringe 11-09 25 mL, l 05:11: Route: [place] 00 IVP, Drug Form: INJ, Dosing Weight 105.455, kg, PRN, PRN Blood Glucose Results, Start date: 11/09/14 0:11:00, Duration: 30 day, Stop date: 12/09/14 0:10:00 Glucagon No 1 mg, Memoria 11-09 Route: IM, l 05:11: Drug form: [place] 00 PDR/INJ, PRN, Dosing Weight 105.455, kg, PRN Blood Glucose Results, Start date: 11/09/14 0:11:00, Duration: 30 day, Stop date: 12/09/14 0:10:00 Insulin, 0 No Notes: [facility]oria Aspart, 11-09 Roll in l Human 05:11: palms of [place] 00 hands gently; Do not shake vigorously . (Same as: NovoLOG) "single patient use only" Stable for 28 days at room temperatur e. Expires in days from ____Date Dextrose No 12.5 gm, Memor ia 50% Syringe 11-09 25 mL, l 05:11: Route: [place] 00 IVP, Drug Form: INJ, Dosing Weight 105.455, kg, PRN, PRN Blood Glucose Results, Start date: 11/09/14 0:11:00, Duration: 30 day, Stop date: 12/09/14 0:10:00 Glucagon 0 No 1 mg, Memoria 11-09 Route: IM, l 05:11: Drug form: [place] 00 PDR/INJ, PRN, Dosing Weight 105.455, kg, PRN Blood Glucose Results, Start date: 11/09/14 0:11:00, Duration: 30 day, Stop date: 12/09/14 0:10:00 [place] 2015-0 No Notes: [facility] 11-09 Same as l 02:00: [place] Do [place] not hold insulin without contacting prescriber "single patient use only" Levemir No Notes: [facility]oria 11-09 Same as l 02:00: [place] Do [place] 00 not hold insulin without contacting prescriber "single patient use only" Insulin, No Notes: [facility] Aspart, 11-09 Roll in l Human 01:24: palms of [place] 00 hands gently; Do not shake vigorously . (Same as: NovoLOG) "single patient use only" Stable for 28 days at room temperatur e. Expires in days from ____Date Dextrose No 25 gm, 50 Tobi benedict 50% Syringe - mL, Route: l 01:24: IVP, Drug [place] 00 Form: INJ, kg, PRN, PRN Blood Glucose Results, Start date: 11/08/14 20:24:00, Duration: 30 day, Stop date: 12/08/14 20:23:00 Glucagon No 1 mg, Memoria 11-09 Route: IM, l 01:24: Drug form: [place] 00 PDR/INJ, PRN, kg, PRN Blood Glucose Results, Start date: 11/08/14 20:24:00, Duration: 30 day, Stop date: 12/08/14 20:23:00 Insulin, No Notes: [facility]oria Aspart, 11-09 Roll in l Human 01:24: palms of [place] 00 hands gently; Do not shake vigorously . (Same as: NovoLOG) "single patient use only" Stable for 28 days at room temperatur e. Expires in days from ____Date Dextrose No 25 gm, 50 Tobi benedict 50% Syringe 9-03 mL, Route: l 01:24: IVP, Drug [place] 00 Form: INJ, kg, PRN, PRN Blood Glucose Results, Start date: 11/08/14 20:24:00, Duration: 30 day, Stop date: 12/08/14 20:23:00 Glucagon No 1 mg, [facility]oria 11-09 Route: IM, l 01:24: Drug form: [place] 00 PDR/INJ, PRN, kg, PRN Blood Glucose Results, Start date: 11/08/14 20:24:00, Duration: 30 day, Stop date: 12/08/14 20:23:00 INV No 600 mg, 8 [facility] Clopidogrel 9-03 tab, l 75mg/placeb 01:00: Route: PO, [place] o tablet 00 Drug form: Loading TAB, ONCE, Dose Start date: 11/08/14 20:00:00, Stop date: 11/08/14 20:00:00 INV No 600 mg, 8 [facility] Clopidogrel - tab, l 75mg/placeb 01:00: Route: PO, [place] o tablet 00 Drug form: Loading TAB, ONCE, Dose Start date: 11/08/14 20:00:00, Stop date: 11/08/14 20:00:00 Ativan No Notes: [facility] 11-09 (Same as: l 00:49: Ativan) [place] Ativan No Notes: [facility]oria 11-09 (Same as: l 00:49: Ativan) [place] Ondansetron No Notes: Tobi benedict 11-09 (Same as: l 00:37: Zofran) [place] 00 MEDICATION WASTE Product Size: 4 mg Product Wasted: ___ mg Acetaminoph No Notes: Max [facility]oria en 11-09 acetaminop l 00:37: hen 4000 [place] 00 mg/day (4 gm/day). (Same as: Tylenol Extra Strength) Ondansetron No Notes: Tobi benedict 11-09 (Same as: l 00:37: Zofran) [place] 00 MEDICATION WASTE Product Size: 4 mg Product Wasted: ___ mg Acetaminoph No Notes: Max [facility]oria en 11-09 acetaminop l 00:37: hen 4000 [place] 00 mg/day (4 gm/day). (Same as: Tylenol Extra Strength) Amlodipine Yes 2.5 mg, Tobi benedict 11-09 PO, Daily, l 00:33: 0 [place] 00 Refill(s) spironolact Yes 50 mg = 1 M emoria one 50 mg 11-09 tab, PO, l oral tablet 00:33: Daily, # [place] 00 90 tab, 1 Refill(s) NovoLog Yes Special [facility]oria 11-09 Instructio l 00:33: ns: [place] 00 sliding scale SUB-Q TID-Before Meals Levemir Yes 20 unit, Memori a 11-09 SUB-Q, l 00:33: Bedtime, 0 [place] 00 Refill(s) Amlodipine Yes 2.5 mg, Tobi benedict 11-09 PO, Daily, l 00:33: 0 [place] 00 Refill(s) spironolact Yes 50 mg = 1 M emoria one 50 mg 11-09 tab, PO, l oral tablet 00:33: Daily, # [place] 00 90 tab, 1 Refill(s) NovoLog Yes Special [facility] 11-09 Instructio l 00:33: ns: [place] 00 sliding scale SUB-Q TID-Before Meals Levemir Yes 20 unit, Memori a 11-09 SUB-Q, l 00:33: Bedtime, 0 [place] 00 Refill(s) Aspirin No 325 mg, 1 Memor ia 11-08 tab, l 22:17: Route: PO, Drug form: TAB, ONCE, kg, Priority: STAT, Start date: 11/08/14 17:17:00, Stop date: 11/08/14 17:17:00 Aspirin No 325 mg, 1 Memor ia 11-08 tab, l 22:17: Route: PO, Drug form: TAB, ONCE, kg, Priority: STAT, Start date: 11/08/14 17:17:00, Stop date: 11/08/14 17:17:00 Saline No Notes: [facility] Flush 0.9% 11-08 (Same as: l 21:14: BD [place] 00 Posiflush) Saline No Notes: Memoria Flush 0.9% 11-08 (Same as: l 21:14: BD Posiflush) Norvasc 2.5 Norvasc 2.5 Yes 1 QD TAKE 1 UT MG Oral MG Oral TABLET Physici Tablet Tablet DAILY. ans NovoLOG NovoLOG Yes Inject 10 UT FlexPen 100 FlexPen 100 units Physici UNIT/ML UNIT/ML before ans Subcutaneou Subcutaneou each meal s Solution s Solution subcutaneo Pen-injecto Pen-injecto usly r r Spironolact Spironolact Yes 1 QD TAKE 1 UT one 50 MG one 50 MG TABLET Phy sici Oral Tablet Oral Tablet DAILY. ans Levemir Levemir Yes Inject 20 UT FlexTouch FlexTouch units Phys ici 100 UNIT/ML 100 UNIT/ML subcu once ans Subcutaneou Subcutaneou a day s Solution s Solution befor Pen-injecto Pen-injecto meal. r r Jublia 10 % Jublia 10 % Yes U T External External Physici Solution Solution ans Immunizations Ordered Filled Immunization Date Status Comments [facility] e Immunization Name Name SARS-COV-2 COVID-19 2020-07-16 Completed Unive rsity of PFIZER VACCINE 00:00:00 [facility] SARS-COV-2 COVID-19 2020-07-16 Completed Unive rsity of PFIZER VACCINE 00:00:00 [facility] SARS-COV-2 COVID-19 2020-07-16 Completed Unive rsity of PFIZER VACCINE 00:00:00 [facility] SARS-COV-2 COVID-19 2020-07-16 Completed Unive rsity of PFIZER VACCINE 00:00:00 [facility] SARS-COV-2 COVID-19 2020-07-16 Completed Unive rsity of PFIZER VACCINE 00:00:00 [facility] SARS-COV-2 COVID-19 2020-06-23 Completed Unive rsity of PFIZER VACCINE 00:00:00 [facility] SARS-COV-2 COVID-19 2020-06-23 Completed Unive rsity of PFIZER VACCINE 00:00:00 [facility] SARS-COV-2 COVID-19 2020-06-23 Completed Unive rsity of PFIZER VACCINE 00:00:00 [facility] SARS-COV-2 COVID-19 2020-06-23 Completed Unive rsity of PFIZER VACCINE 00:00:00 [facility] SARS-COV-2 COVID-19 2020-06-23 Completed Unive rsity of PFIZER VACCINE 00:00:00 [facility] Vital Signs Vital Name Observation Time Observation Value Comments Source Heart rate 2021-05-29 14:44:00 60 /min [facility] Respiratory rate 2021-05-29 14:44:00 14 /min [facility] Oxygen saturation in 2021-05-29 14:44:00 94 /min [facility] Arterial blood by [facility] Pulse oximetry Branch Systolic blood 2021-05-29 14:42:00 170 mm[Hg] [facility] Diastolic blood 2021-05-29 14:42:00 58 mm[Hg] Unive rsity of pressure [facility] Branch Body temperature 2021-05-29 14:27:00 36.39 Jimena [facility] Body height 2021-05-20 15:15:00 160 cm [facility] Body weight 2021-05-20 15:15:00 117.935 kg [facility] BMI 2021-05-20 15:15:00 46.06 kg/m2 [facility] Systolic blood 2021-05-29 12:08:00 156 mm[Hg] [facility] Diastolic blood 2021-05-29 12:08:00 75 mm[Hg] Unive rsity of pressure [facility] Heart rate 2021-05-29 12:08:00 62 /min [facility] [place] [facility] [place] Body temperature 2021-05-29 12:08:00 36.22 Jimena [facility] Respiratory rate 2021-05-29 12:08:00 18 /min [facility] Oxygen saturation in 2021-05-29 12:08:00 98 /min [facility] Arterial blood by [facility] Pulse oximetry Branch Body height 2021-05-20 15:15:00 160 cm [facility] Body weight 2021-05-20 15:15:00 117.935 kg [facility] BMI 2021-05-20 15:15:00 46.06 kg/m2 [facility] BMI Calculated 2014-12-06 12:26:00 Ben Mandujanoann Weight 2014-12-06 12:26:00 [facility] [place] Height 2014-12-06 12:26:00 162.56 cm [facility] [place] Systolic (mm Hg) 2014-11-10 12:45:00 Tobi rial [place] Diastolic (mm Hg) 2014-11-10 12:45:00 Mem orial [place] Respitory Rate 2014-11-10 12:45:00 Memori al [place] Heart Rate 2014-11-10 12:45:00 [facility] [place] Temperature Oral (F) 2014-11-10 12:45:00 97.3 F [facility] [place] Temperature Oral (F) 2014-11-10 08:17:00 97.8 F [facility] [place] Systolic (mm Hg) 2014-11-10 08:17:00 Tobi rial [place] Diastolic (mm Hg) 2014-11-10 08:17:00 Mem orial [place] Respitory Rate 2014-11-10 08:17:00 Memori al [place] Systolic (mm Hg) 2014-11-10 04:33:00 Tobi rial [place] Diastolic (mm Hg) 2014-11-10 04:33:00 Mem orial [place] Temperature Oral (F) 2014-11-10 04:33:00 97.8 F [facility] [place] Respitory Rate 2014-11-10 04:33:00 Memori al [place] Heart Rate 2014-11-09 16:15:00 [facility] [place] Heart Rate 2014-11-09 16:00:00 [facility] [place] Weight 2014-11-09 02:52:00 [facility] [place] BMI Calculated 2014-11-09 02:52:00 Memori al [place] Height 2014-11-09 02:52:00 162.56 cm [facility] Procedures Procedure Date / Time Performing Source Performed Clinician PHACOEMULSIFICATION OF 2021-05-29 Sabas Schwab [facility] CATARACT WITH INTRAOCULAR 13:48:00 Medica l Branch LENS IMPLANT POCT GLUCOSE(AGE >30DAYS) 2021-05-29 Najma Win [facility] 12:16:00 Medical Branch POCT GLUCOSE(AGE >30DAYS) 2021-05-29 Najma Win [facility] 12:16:00 Medical Branch DAY SURGERY - ADC 2021-05-29 Doctor Unassigned, [facility] 05:01:00 [facility] History of Cholecystectomy [facility] of Splenectomy [facility] History of Total Abdominal [facility] Hysterectomy History of Hemorrhoidectomy [facility] History of Tonsillectomy With [facility] Adenoidectomy History of Inguinal Hernia [facility] Repair Abdominal hysterectomy [facility] Bilateral inguinal hernia Memori al [place] repair Cholecystectomy [facility] [place] [facility] and [facility] nn adenoidectomy Total splenectomy [facility] Lidya nn Plan of Care Planned Activity Planned Date Details Comments Source Future Scheduled 2019-11-08 INFLUENZA VACCINE (#1) [facility] 00:00:00 [code = INFLUENZA Medical Ce nter VACCINE (#1)] Future Scheduled 2008-01-[address] [facility] 00:00:00 WELLNESS (YEAR 2 or Medical Center FIRST YEAR if no IPPE) [code = MEDICARE ANNUAL WELLNESS (YEAR 2 or FIRST YEAR if no IPPE)] Future Scheduled 2007 PNEUMOCOCCAL 65+ YRS [facility] Test 00:00:00 (1 of 1 - [facility] [id number] PCV13) [code = PNEUMOCOCCAL 65+ YRS (1 of - [id number] PCV13)] Encounters Start End Encounter Admission Attending Care Care Encounter Source Date/Time Date/Time Type Type Clinicians Facility Department ID 2021-04-15 [facility] [id number] Univers 17:37:13 SABAS coyne [facility] 2021-05-29 2021-05-29 [facility] [id number] Univers 07:03:00 09:54:00 SABAS coyne [facility] 2021-05-29 2021-05-[address] [facility] [id number] Univers 07:03:00 09:54:[address] 350.1.13.10 ity uz[id number] [place] [address] Branch 2021-05-29 2021-05-[address] [facility] [id number] Univers 08:11:00 08:49:[address] 350.1.13.10 ity [place] [id number] [facility] CENTER 020 Branch 2021-05-29 2021-05-29 Orders Doctor DHIRAJ [id number] Univers 00:00:00 00:00:00 Only Unassigned, MADELEINE 350.1.13.10 [facility] 4.2.7.2.[id number] [facility] 009 Branch 2021-04-29 2021-04-29 Laboratory Only, Adc Test [facility] [id number] Univers 14:45:00 15:00:00 Only Sabas Schwab Layla ALMA ROSA 350.1.13.1 0 [facility]y [facility] [place] [id number] 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 Lab Main [facility] [id number] Univers 17:15:00 17:30:00 Visit Sabas Schwab 350.1.13.1 0 ity of [place] PROF[place] [id number] [address] 2021-04-15 2021-04-15 Outpatient Huong [facility]WAB [facility] [id number] Univers 17:15:00 17:15:00 SABAS coyne [facility] 2021-02-08 2021-02-09 Outpatient SNEHA, [facility] [id number] [place] 00:00:00 00:00:00 NADIM 724 Method i 2021-02-04 2021-02-04 Outpatient SNEHA, [facility] [id number] [place] 00:00:00 00:00:00 NADIM 140 Method i 2020-07-16 2020-07-16 Outpatient Huong CHRISTIE [facility] [id number] Univers 09:05:00 09:05:37 DESHAWN coyne [facility] 2020-06-23 2020-06-23 Outpatient R SHAHNAZ, [facility] [id number] Univers 09:00:00 09:07:43 DESHAWN ity of [facility] 2015-04-10 2015-04-11 [place] [id number] Memoria 18:42:00 05:59:00 Services r Outpatient 01 l Imaging [place] 2015-04-10 2015-04-11 Outpt Diag nullFlavo [facility] [id number] Memoria 18:42:00 05:59:00 Services r Outpatient 01 l [place] 2015-04-10 2015-04-10 Outpatient JOÃOOIH MHOIH [id number] 12:42:00 23:59:00 Vlad Rich 2015-04-10 2015-04-10 Appointmen JULIA GOODWIN [facility] [id number] [place] 09:00:00 09:00:00 t; VLAD GOODWIN M.D. Physici KAZIM, ans M.D. 2015-04-09 2015-04-[place] [id number] Memoria 18:48:00 05:59:00 Services r Outpatient 00 l Imaging [place] 2015-04-09 2015-04-10 [place] [id number] Mem[facility] 18:48:00 05:59:00 Services r Outpatient 00 l Imaging [place] 2015-04-09 2015-04-09 Outpatient Zoya, MHOIP MHOIP [id number] 12:48:00 23:59:00 Citlali Reyes 2015-03-27 2015-03-27 Appointmen JULIA KENNY [facility] [id number] [place] 11:15:00 11:15:00 t; CITLALI KENNY, Dena Combs M.D. 2015-03-06 2015-03-06 AppointJULIA Funes [facility] [id number] [place] 09:00:00 09:00:00 t; VLAD GOODWIN M.D. Physici KAZIM, ans M.D. 2014-12-06 2014-12-07 Outpatient nullFlavo [facility] [id number] Memoria 12:19:00 04:59:00 r [place] 00 [facility] [place] 2014-12-06 2014-12-07 [id number] Memoria 12:19:00 04:59:00 r [place] 00 [facility] 2014-12-06 2014-12-06 Outpatient Lyn [facility] [id number] 07:19:00 23:59:00 Ancayden Braden 2014-11-08 2014-11-10 Inpatient [facility] [id number] Memoria 21:20:00 17:54:00 r [place] 67 [facility] 2014-11-08 2014-11-10 Inpatient [facility] [id number] Memoria 21:20:00 17:54:[address] 2014-11-08 2014-11-10 Outpatient Jesus [facility] [id number] 16:20:00 12:54:00 Deric Villafana Results Test Description Test Time Test Comments Results Result Comments Source POCT Glucose 2021-05-29 12:16:00 Test Item Value Reference Range Interpretation Comme nts POCT Glu (age>30days) (test code = 3342) 141 mg/dL 70-110 A Lab Interpretation (test code = 51759-3) Abnormal [facility] [id number] 12:16:00 Test Item Value Reference Range Interpretation Comments POCT Glu (age>30days) (test code = 141 mg/dL 70-110 A 3342) Lab Interpretation (test code = Abnormal 81148-7) [facility] RNA [Presence] in Respiratory specimen by GURMEET with probe [id number] 19:42:59 Test Item Value Reference Range Interpretation Comments SARS-CoV-2 (COVID-19) RNA Not detected Not-Detected [Presence] in Respiratory specimen by GURMEET with probe detection (test code = 12994-9) Whether patient is employed in a healthcare setting (test code = 23777-1) Whether the patient has symptoms related to condition of interest (test code = 72159-4) Patient was hospitalized because of this condition (test code = 33388-9) Whether the patient was admitted to intensive care unit (ICU) for condition of interest (test code = 80666-4) Whether patient resides in a congregate care setting (test code = 18684-2) KENDRA BRADLEY WESTPOCT-GLUCOSE [id number] 12:30:00 Test Item Value Reference Range Interpretation Comments POC-GLUCOSE METER 164 mg/dL 70-110 H TESTED AT [place] [address] ([facility]) (test code = DAVE Borja [place] 1538) [address] POCT-GLUCOSE [id number] 12:29:00 Test Item Value Reference Range Interpretation Comments POC-GLUCOSE METER 83 mg/dL 70-110 TESTED AT [place] [address] ([facility]) (test code = [place] [address] 1538) POCT-GLUCOSE [id number] 22:17:00 Test Item Value Reference Range Interpretation Comments POC-GLUCOSE METER 116 mg/dL 70-110 H TESTED AT [place] [address] ([facility]) (test code = DAVE Borja [place] 1538) [address] POCT-GLUCOSE [id number] 17:38:00 Test Item Value Reference Range Interpretation Comments POC-GLUCOSE METER 168 mg/dL 70-110 H TESTED AT [place] [address] ([facility]) (test code = DAVE Borja [place] 1538) 13788 POCT-GLUCOSE [id number] 12:41:00 Test Item Value Reference Range Interpretation Comments POC-GLUCOSE METER 243 mg/dL 70-110 H TESTED AT [place] [address] ([facility]) (test code = DAVE Borja [place] 1538) [address] POCT-GLUCOSE [id number] 09:34:00 Test Item Value Reference Range Interpretation Comments POC-GLUCOSE METER 193 mg/dL 70-110 H TESTED AT [place] [address] ([facility]) (test code = DAVE Borja [place] 1538) [address] POCT-GLUCOSE [id number] 21:52:00 Test Item Value Reference Range Interpretation Comments POC-GLUCOSE METER 222 mg/dL 70-110 H TESTED AT [place] [address] ([facility]) (test code = DAVE Huong [place] 1538) [address] POCT-GLUCOSE [id number] 18:59:00 Test Item Value Reference Range Interpretation Comments POC-GLUCOSE METER 181 mg/dL 70-110 H TESTED AT [place] [address] ([facility]) (test code = ZAIRESABA Borja [facility] 1538) 0[address] POCT-GLUCOSE [id number] 14:21:00 Test Item Value Reference Range Interpretation Comments POC-GLUCOSE METER 179 mg/dL 70-110 H TESTED AT [facility] 6720 (BEAKER) (test code = DAVE Borja [facility] 1538) 16355 POCT-GLUCOSE [id number] 09:40:00 Test Item Value Reference Range Interpretation Comments POC-GLUCOSE METER 211 mg/dL 70-110 H TESTED AT [facility] 6720 (BEAKER) (test code = [facility] Huong [facility] 1538) 35583 BASIC METABOLIC [id number] 06:49:00 Test Item Value Reference Range Interpretation [...] 697) EGFR (BEAKER) (test 79 mL/min/1.73 ESTIMA FRANK GFR IS code = 1092) sq m NOT ACCURATE CREATININE CLEARANCE IN PREDICTING GLOMERULAR FILTRATION RATE . ESTIMATED GFR I S NOT APPLICABLE FOR DIALYSIS PATIEN TS. CBC W/PLT COUNT & AUTO [id number] 06:45:00 Test Item Value Reference Range Interpretation [...] (BEAKER) (test code = 2801) URINALYSIS W/ [id number] 04:40:00 Test Item Value Reference Range Interpretation [...] 516) SOURCE(BEAKER) (test code = 2795) POCT-GLUCOSE [id number] 20:47:00 Test Item Value Reference Range Interpretation Comments POC-GLUCOSE METER 273 mg/dL 70-110 H TESTED AT [place] [address] (BEAKER) (test code = DAVE Borja [facility] 1538) 01463 POCT-GLUCOSE [id number] 18:20:00 Test Item Value Reference Range Interpretation Comments POC-GLUCOSE METER 305 mg/dL 70-110 H Notified R Siria SMITH/TESTED (BEAKER) (test code = AT [place] [address] [place] 1538) [facility] 7703 0 POCT-GLUCOSE [id number] 14:27:00 Test Item Value Reference Range Interpretation Comments POC-GLUCOSE METER 215 mg/dL 70-110 H TESTED AT [place] [address] (BEAKER) (test code = DAVE Borja [facility] 1538) 16142 POCT-GLUCOSE [id number] 12:10:00 Test Item Value Reference Range Interpretation Comments POC-GLUCOSE METER 278 mg/dL 70-110 H TESTED AT [place] [address] (BEAKER) (test code = DAVE Borja [facility] 1538) 17424 POCT-GLUCOSE [id number] 08:12:00 Test Item Value Reference Range Interpretation Comments POC-GLUCOSE METER 225 mg/dL 70-110 H TESTED AT [place] [address] (BEAKER) (test code = DAVE Borja [facility] 1538) 20092 POCT-GLUCOSE [id number] 21:36:00 Test Item Value Reference Range Interpretation Comments POC-GLUCOSE METER 272 mg/dL 70-110 H TESTED AT [place] [address] (BEAKER) (test code = DAVE Borja [place] 1538) [address] POCT-GLUCOSE [id number] 18:06:00 Test Item Value Reference Range Interpretation Comments POC-GLUCOSE METER 264 mg/dL 70-110 H TESTED AT [place] [address] (BEAKER) (test code = DAVE Borja [facility] 1538) 54828 POCT-GLUCOSE [id number] 13:33:00 Test Item Value Reference Range Interpretation Comments POC-GLUCOSE METER 225 mg/dL 70-110 H TESTED AT [place] [address] [facility] (test code = DAVE Borja [facility] 1538) 65201 POCT-GLUCOSE [id number] 08:16:00 Test Item Value Reference Range Interpretation Comments POC-GLUCOSE METER 217 mg/dL 70-110 H TESTED AT [place] [address] (BEAKER) (test code = DAVE Borja [facility] 1538) 14434 [id number] 07:48:00 Test Item Value Reference Range Interpretation Comments MAGNESIUM (BEAKER) (test code = 1.6 mg/dL 1.6-2.6 627) BASIC METABOLIC [id number] 07:48:00 Test Item Value Reference Range Interpretation [...] 697) EGFR (BEAKER) (test 68 mL/min/1.73 ESTIMA FRANK GFR IS code = 1092) sq m NOT ACCURATE CREATININE CLEARANCE IN PREDICTING GLOMERULAR FILTRATION RATE . ESTIMATED GFR I S NOT APPLICABLE FOR DIALYSIS PATIEN TS. CBC W/PLT COUNT & AUTO [id number] 07:18:00 Test Item Value Reference Range Interpretation [...] PERCENT (BEAKER) (test code = 2801) POCT-GLUCOSE [id number] 23:19:00 Test Item Value Reference Range Interpretation Comments POC-GLUCOSE METER 214 mg/dL 70-110 H TESTED AT [facility] 67 (BEAKER) (test code = [facility] 1538) 50875 POCT-GLUCOSE [id number] 16:37:00 Test Item Value Reference Range Interpretation Comments POC-GLUCOSE METER 192 mg/dL 70-110 H TESTED AT [place] [address] ([facility] (test code = [facility] 1538) 47689 POCT-GLUCOSE [id number] 12:47:00 Test Item Value Reference Range Interpretation Comments POC-GLUCOSE METER 233 mg/dL 70-110 H TESTED AT [place] [address] ([facility] (test code = [facility] 1538) 34212 BASIC METABOLIC [id number] 11:26:00 Test Item Value Reference Range Interpretation [...] 697) EGFR (BEAKER) (test 84 mL/min/1.73 ESTIMA FRANK GFR IS code = 1092) sq m NOT ACCURATE CREATININE CLEARANCE IN PREDICTING GLOMERULAR FILTRATION RATE . ESTIMATED GFR I S NOT APPLICABLE FOR DIALYSIS PATIEN TS. [id number] 11:26:00 Test Item Value Reference Range Interpretation Comments MAGNESIUM (BEAKER) (test code = 1.2 mg/dL 1.6-2.6 L 627) CBC W/PLT COUNT & AUTO [id number] 11:17:00 Test Item Value Reference Range Interpretation [...] 3438) Received comment: User comments: Slide comments:POCT-GLUCOSE [id number] 07:57:00 Test Item Value Reference Range Interpretation Comments POC-GLUCOSE METER 165 mg/dL 70-110 H TESTED AT [facility] 6720 (BEAKER) (test code = DAVE [place] 1538) [address] POCT-GLUCOSE [id number] 22:08:00 Test Item Value Reference Range Interpretation Comments POC-GLUCOSE METER 161 mg/dL 70-110 H TESTED AT [facility] 6720 (BEAKER) (test code = DAVE [place] 1538) [address] POCT-GLUCOSE [id number] 18:10:00 Test Item Value Reference Range Interpretation Comments POC-GLUCOSE METER 141 mg/dL 70-[address] [facility] (BEAKER) (test code = DAVE [place] 1538) [address] [id number] 14:55:00 Test Item Value Reference Range Interpretation Comments MAGNESIUM (BEAKER) 1.2 mg/dL 1.6-2.6 L Specimen slightly (test code = 627) hemolyzed BASIC METABOLIC [id number] 14:55:00 Test Item Value Reference Range Interpretation [...] 697) EGFR (BEAKER) (test 97 mL/min/1.73 ESTIMA FRANK GFR IS code = 1092) sq m NOT ACCURATE CREATININE CLEARANCE IN PREDICTING GLOMERULAR FILTRATION RATE . ESTIMATED GFR I S NOT APPLICABLE FOR DIALYSIS PATIEN TS. POCT-GLUCOSE [id number] 12:01:00 Test Item Value Reference Range Interpretation Comments POC-GLUCOSE METER 163 mg/dL 70-110 H TESTED AT [facility] 6720 (BEAKER) (test code = DAVE [place] 1538) [address] CBC W/PLT COUNT & AUTO [id number] 11:57:00 Test Item Value Reference Range Interpretation [...] PERCENT (BEAKER) (test code = 2801) POCT-GLUCOSE [id number] 10:18:00 Test Item Value Reference Range Interpretation Comments POC-GLUCOSE METER 155 mg/dL 70-110 H TESTED AT [facility] 6720 ([facility] (test code = DAVE Borja [facility] 1538) 39189 POCT-GLUCOSE [id number] 08:13:00 Test Item Value Reference Range Interpretation Comments POC-GLUCOSE METER 157 mg/dL 70-110 H TESTED AT [facility] 6720 (BEAKER) (test code = [employer] [facility] [employer] Huong [facility] 1538) 06993 POCT-GLUCOSE [id number] 21:57:00 Test Item Value Reference Range Interpretation Comments POC-GLUCOSE METER 181 mg/dL 70-110 H TESTED AT [place] [address] (BEAKER) (test code = DAVE Borja [facility] 1538) 43997 POCT-GLUCOSE [id number] 17:39:00 Test Item Value Reference Range Interpretation Comments POC-GLUCOSE METER 232 mg/dL 70-110 H TESTED AT [place] [address] (BEAKER) (test code = DAVE Borja [facility] 1538) 78456 POCT-GLUCOSE [id number] 12:55:00 Test Item Value Reference Range Interpretation Comments POC-GLUCOSE METER 207 mg/dL 70-110 H TESTED AT [place] [address] (BEAKER) (test code = DAVE Borja [facility] 1538) 74944 CBC W/PLT COUNT & AUTO [id number] 12:50:00 Test Item Value Reference Range Interpretation [...] 3438) Received comment: User comments: Slide comments:POCT-GLUCOSE [id number] 08:56:00 Test Item Value Reference Range Interpretation Comments POC-GLUCOSE METER 194 mg/dL 70-110 H TESTED AT [facility] 6720 (BEAKER) (test code = DAVE VASQUEZ 1538) 414[address] [id number] 06:11:00 Test Item Value Reference Range Interpretation Comments MAGNESIUM (BEAKER) (test code = 1.4 mg/dL 1.6-2.6 L 627) BASIC METABOLIC [id number] 06:11:00 Test Item Value Reference Range Interpretation [...] 697) EGFR (BEAKER) (test 90 mL/min/1.73 ESTIMA FRANK GFR IS code = 1092) sq m NOT ACCURATE CREATININE CLEARANCE IN PREDICTING GLOMERULAR FILTRATION RATE . ESTIMATED GFR I S NOT APPLICABLE FOR DIALYSIS PATIEN TS. POCT-GLUCOSE [id number] 21:53:00 Test Item Value Reference Range Interpretation Comments POC-GLUCOSE METER 225 mg/dL 70-110 H TESTED AT [facility] 67 [facility] (test code = [facility] 1538) [id number] POCT-GLUCOSE [id number] 19:30:00 Test Item Value Reference Range Interpretation Comments POC-GLUCOSE METER 225 mg/dL 70-110 H TESTED AT [facility] 6720 [facility] (test code = [facility] 1538) [id number] POCT-GLUCOSE [id number] 15:02:00 Test Item Value Reference Range Interpretation Comments POC-GLUCOSE METER 179 mg/dL 70-110 H TESTED AT [facility] 6720 (BEAKER) (test code = [facility] 1538) [address] [id number] 13:04:00 Test Item Value Reference Range Interpretation Comments MAGNESIUM (BEAKER) 1.5 mg/dL 1.6-2.6 L Specimen slightly (test code = 627) hemolyzed Check Serum Magnesium level 2 hours after IV magnesium replacement.Every 8 hours PRN for Creatinine greater than or equal to 2 mg/dL.[id number] 13:04:00 Test Item Value Reference Range Interpretation Comments POTASSIUM (BEAKER) 4.2 meq/L 3.5-5.1 Specimen slightly (test code = 379) hemolyzed Check Serum Magnesium level 2 hours after IV magnesium replacement.Every 8 hours PRN for Creatinine greater than or equal to 2 mg/dL.POCT-GLUCOSE METER 2018-08-09 08:24:00 Test Item Value Reference Range Interpretation Comments POC-GLUCOSE METER 189 mg/dL 70-110 H TESTED AT [facility] 6720 (BEAKER) (test code = [place] 1538) [address] CBC W/PLT COUNT & AUTO [id number] 08:03:00 Test Item Value Reference Range Interpretation [...] 3438) Received comment: User comments: Slide comments:CALCIUM, [id number] 05:17:00 Test Item Value Reference Range Interpretation Comments CALCIUM IONIZED (BEAKER) (test 1.26 mmol/L 1.12-1.27 code = 698) PH, BLOOD (BEAKER) (test code = 7.42 1810) [id number] 05:09:00 Test Item Value Reference Range Interpretation Comments PHOSPHORUS (BEAKER) (test code = 2.0 mg/dL 2.3-4.7 L 604) [id number] 05:09:00 Test Item Value Reference Range Interpretation Comments MAGNESIUM (BEAKER) (test code = 1.6 mg/dL 1.6-2.6 627) BASIC METABOLIC [id number] 05:09:00 Test Item Value Reference Range Interpretation [...] 697) EGFR (BEAKER) (test 80 mL/min/1.73 ESTIMA FRANK GFR IS code = 1092) sq m NOT ACCURATE CREATININE CLEARANCE IN PREDICTING GLOMERULAR FILTRATION RATE . ESTIMATED GFR I S NOT APPLICABLE FOR DIALYSIS PATIEN TS. POCT-GLUCOSE [id number] 23:39:00 Test Item Value Reference Range Interpretation Comments POC-GLUCOSE METER 200 mg/dL 70-110 H TESTED AT [facility] 6720 (BEAKER) (test code = [place] 1538) [address] [id number] 22:42:00 Test Item Value Reference Range Interpretation Comments MAGNESIUM (BEAKER) (test code = 1.5 mg/dL 1.6-2.6 L 627) POTASSIUM-STAT [id number] 22:24:00 Test Item Value Reference Range Interpretation Comments POTASSIUM (BEAKER) (test code = 3.7 meq/L 3.6-5.5 379) BLOOD GAS, [id number] 22:24:00 Test Item Value Reference Range Interpretation [...] (test code = 1819) 28.0 % CALCIUM, [id number] 22:23:00 Test Item Value Reference Range Interpretation Comments CALCIUM IONIZED ([facility]) (test 1.21 mmol/L 1.12-1.27 code = 698) PH, BLOOD ([facility]) (test code = 7.44 1810) POCT-GLUCOSE [id number] 17:12:00 Test Item Value Reference Range Interpretation Comments POC-GLUCOSE METER 199 mg/dL 70-110 H TESTED AT [place] [address] ([facility]) (test code = DAVE [facility] 1538) [address] POCT-GLUCOSE [id number] 12:12:00 Test Item Value Reference Range Interpretation Comments POC-GLUCOSE METER 184 mg/dL 70-110 H TESTED AT [place] [address] ([facility]) (test code = DAVE [place] 1538) [address] POCT-GLUCOSE [id number] 08:49:00 Test Item Value Reference Range Interpretation Comments POC-GLUCOSE METER 195 mg/dL 70-110 H TESTED AT [place] [address] ([facility]) (test code = ZAIREPR [place] [facility] 1538) [address] RAD, CHEST, 1 VIEW, NON [id number] 08:36:00Reason for exam:->s/p CV surgeryShould this be [...] Left basilar chest tube has been removed inthe interim.Lungs and pleura: Left retrocardiac opacities increased in the interim, presumably representing increased atelectasis. Background interstitial edema is unchanged. No pneumothorax.Heart and mediastinum: Stable contours. Stable surgical changes.Additional findings: None. Signed: Vandana Posadas Verified Date/Time: 08/08/2018 08:36:43 Reading Location: [address] Neuro Reading Room CBC W/PLT COUNT & AUTO [id number] 05:32:00 Test Item Value Reference Range Interpretation [...] 0-1 PERCENT (BEAKER) (test code = 2801) [id number] 05:14:00 Test Item Value Reference Range Interpretation Comments MAGNESIUM (BEAKER) (test code = 2.1 mg/dL 1.6-2.6 627) BASIC METABOLIC [id number] 05:14:00 Test Item Value Reference Range Interpretation [...] 697) EGFR (BEAKER) (test 80 mL/min/1.73 ESTIMA FRANK GFR IS code = 1092) sq m NOT ACCURATE CREATININE CLEARANCE IN PREDICTING GLOMERULAR FILTRATION RATE . ESTIMATED GFR I S NOT APPLICABLE FOR DIALYSIS PATIEN TS. CALCIUM, [id number] 05:07:00 Test Item Value Reference Range Interpretation Comments CALCIUM IONIZED (BEAKER) (test 1.21 mmol/L 1.12-1.27 code = 698) PH, BLOOD (BEAKER) (test code = 7.42 1810) BLOOD GAS, [id number] 05:06:00 Test Item Value Reference Range Interpretation [...] code = 1819) 28.0 % LACTIC ACID, [id number] 05:01:00 Test Item Value Reference Range Interpretation Comments LACTATE BLOOD ARTERIAL (2) 1.0 mmol/L 0.5-2.2 (BEAKER) (test code = 2874) POCT-GLUCOSE [id number] 23:22:00 Test Item Value Reference Range Interpretation Comments POC-GLUCOSE METER 252 mg/dL 70-110 H TESTED AT [facility] 6720 (BEAKER) (test code = [place] 1538) [address] LACTIC ACID, [id number] 19:42:00 Test Item Value Reference Range Interpretation Comments LACTATE BLOOD ARTERIAL (2) 1.6 mmol/L 0.5-2.2 (BEAKER) (test code = 2874) BLOOD GAS, [id number] 19:33:00 Test Item Value Reference Range Interpretation [...] code = 1819) 36.0 % LACTIC ACID, [id number] 16:37:00 Test Item Value Reference Range Interpretation Comments LACTATE BLOOD ARTERIAL (2) 2.6 mmol/L 0.5-2.2 H (BEAKER) (test code = 2874) BLOOD GAS, [id number] 16:21:00 Test Item Value Reference Range Interpretation [...] code = 1819) 36.0 % BLOOD GAS, [id number] 15:01:00 Test Item Value Reference Range Interpretation [...] code = 1819) 36.0 % OXYGEN SATURATION, [id number] 14:58:00 Test Item Value Reference Range Interpretation Comments O2 SATURATION (MEASURED) (BEAKER) 63.8 % (test code = 1455) LACTIC ACID, [id number] 08:57:00 Test Item Value Reference Range Interpretation Comments LACTATE BLOOD ARTERIAL (2) 0.9 mmol/L 0.5-2.2 (BEAKER) (test code = 2874) RAD, CHEST, 1 VIEW, NON [id number] 06:53:00Reason for exam:->s/p CV surgeryShould this be performed at the bedside?->YesFINAL REPORT Chest, one view. HISTORY: s/p CV surgery COMPARISON: Radiograph from 08/06/2018 IMPRESSION: Interval extubation. Unchanged positioning of a left IJ central venous catheter and left chest tube. There is slight lucency in the left base which could be a trace, likely related pneumothorax. No pleural effusion. Cardiac silhouette is unchanged. No acute bony abnormality. Pulmonary venous congestion. The left basilar atelectasis has slightly improved. Costophrenic clips in the right upper quadrant. Prior median sternotomy. Signed: Lisa Sheldon MDReport Verified Date/Time: 08/07/2018 06:53:26 Reading Location: [facility] B1 C013Y CT Body Reading Room [id number] 04:25:00 Test Item Value Reference Range Interpretation Comments PHOSPHORUS (BEAKER) (test code = 2.6 mg/dL 2.3-4.7 604) [id number] 04:25:00 Test Item Value Reference Range Interpretation Comments MAGNESIUM (BEAKER) (test code = 1.9 mg/dL 1.6-2.6 627) BASIC METABOLIC [id number] 04:25:00 Test Item Value Reference Range Interpretation [...] 697) EGFR (BEAKER) (test 83 mL/min/1.73 ESTIMA FRANK GFR IS code = 1092) sq m [...] 0-0 (BEAKER) (test code = 413) CALCIUM, [id number] 03:31:00 Test Item Value Reference Range Interpretation Comments CALCIUM IONIZED (BEAKER) (test 1.23 mmol/L 1.12-1.27 code = 698) PH, BLOOD (BEAKER) (test code = 7.40 1810) BLOOD GAS, [id number] 03:19:00 Test Item Value Reference Range Interpretation [...] (BEAKER) (test code = 1819) 32.0 % [id number] 22:08:00 Test Item Value Reference Range Interpretation Comments MAGNESIUM (BEAKER) (test code = 2.2 mg/dL 1.6-2.6 627) BLOOD GAS, [id number] 22:00:00 Test Item Value Reference Range Interpretation [...] (test code = 1819) 32.0 % GLUCOSE-STAT [id number] 22:00:00 Test Item Value Reference Range Interpretation Comments GLUCOSE RANDOM (BEAKER) (test code 187 mg/dL 70-110 H = 652) HGB/HCT (H&H) - STAT [id number] 22:00:00 Test Item Value Reference Range Interpretation Comments HEMOGLOBIN (BEAKER) (test code = 10.3 g/dL 12.0-15.0 L 410) HEMATOCRIT (BEAKER) (test code = 30.0 % 36.0-45.0 L 411) SODIUM NA-STAT [id number] 21:59:00 Test Item Value Reference Range Interpretation Comments SODIUM (BEAKER) (test code = 381) 137 meq/L 135-148 POTASSIUM-STAT [id number] 21:59:00 Test Item Value Reference Range Interpretation Comments POTASSIUM (BEAKER) (test code = 4.0 meq/L 3.6-5.5 379) OXYGEN SATURATION, [id number] 21:59:00 Test Item Value Reference Range Interpretation Comments O2 SATURATION (MEASURED) (BEAKER) 70.7 % (test code = 1455) CALCIUM, [id number] 21:59:00 Test Item Value Reference Range Interpretation Comments CALCIUM IONIZED (BEAKER) (test 1.23 mmol/L 1.12-1.27 code = 698) PH, BLOOD (BEAKER) (test code = 7.41 1810) POCT-GLUCOSE [id number] 17:02:00 Test Item Value Reference Range Interpretation Comments POC-GLUCOSE METER 223 mg/dL 70-110 H TESTED AT [place] [address] ([facility]) (test code = [facility] 1538) [address] POCT-GLUCOSE [id number] 12:13:00 Test Item Value Reference Range Interpretation Comments POC-GLUCOSE METER 109 mg/dL 70-110 TESTED AT [place] [address] ([facility]) (test code = [facility] 1538) [address] POCT-GLUCOSE [id number] 10:41:00 Test Item Value Reference Range Interpretation Comments POC-GLUCOSE METER 105 mg/dL 70-110 TESTED AT [place] [address] [facility] (test code = [facility] 1538) [address] COMPREHENSIVE METABOLIC [id number] 09:37:00 Test Item Value Reference Range Interpretation [...] 347) EGFR (BEAKER) (test 66 mL/min/1.73 ESTIMA FRANK GFR IS code = 1092) sq m NOT ACCURATE CREATININE CLEARANCE IN PREDICTING GLOMERULAR FILTRATION RATE . ESTIMATED GFR I S NOT APPLICABLE FOR DIALYSIS PATIEN TS. BLOOD GAS, [id number] 08:39:00 Test Item Value Reference Range Interpretation [...] 40.0 % RAD, CHEST, 1 VIEW, NON [id number] 07:24:00Reason for exam:->s/p CV surgeryShould this be [...] support hardware is stable. Lungs and pleura: B asilar subsegmental atelectasis noted bilaterally. Atelectatic change versus left infrahilar/left retrocardiac opacity increasing since the prior examination. No pneumothorax.Heart and mediastinum: Stable contours. Stable surgical changes.Additional findings: None. Signed: JR Salas Robert MDReport Verified Date/Time: 08/06/2018 07:24:21 Reading Location: [facility] Radiology Reading Room POCT-GLUCOSE [id number] 06:19:00 Test Item Value Reference Range Interpretation Comments POC-GLUCOSE METER 157 mg/dL 70-110 H TESTED AT [facility] 6720 (BEAKER) (test code = [facility] 1538) [address] POCT-GLUCOSE [id number] 06:19:00 Test Item Value Reference Range Interpretation Comments POC-GLUCOSE METER 162 mg/dL 70-110 H TESTED AT [facility] 67 (BEAKER) (test code = [facility] 1538) [address] POCT-GLUCOSE [id number] 06:18:00 Test Item Value Reference Range Interpretation Comments POC-GLUCOSE METER 120 mg/dL 70-110 H TESTED AT [facility] 6720 (BEAKER) (test code = [facility] 1538) [address] [id number] 04:49:00 Test Item Value Reference Range Interpretation [...] than or equal to 2 mg/dL.BASIC METABOLIC [id number] 04:49:00 Test Item Value Reference Range Interpretation [...] 697) EGFR (BEAKER) (test 62 mL/min/1.73 ESTIMA FRANK GFR IS code = 1092) sq m NOT ACCURATE CREATININE CLEARANCE IN PREDICTING GLOMERULAR FILTRATION RATE . ESTIMATED GFR I S NOT APPLICABLE FOR DIALYSIS PATIEN TS. Every 8 hours PRN for Creatinine greater than or equal to 2 mg/dL.LACTIC ACID, [id number] 04:44:00 Test Item Value Reference Range Interpretation [...] (BEAKER) (test code = 413) OXYGEN SATURATION, [id number] 04:32:00 Test Item Value Reference Range Interpretation Comments O2 SATURATION (MEASURED) (BEAKER) 69.8 % (test code = 1455) CALCIUM, [id number] 04:28:00 Test Item Value Reference Range Interpretation Comments CALCIUM IONIZED (BEAKER) (test 1.19 mmol/L 1.12-1.27 code = 698) PH, BLOOD (BEAKER) (test code = 7.41 1810) BLOOD GAS, [id number] 04:27:00 Test Item Value Reference Range Interpretation [...] (test code = 1819) 40.0 % POCT-GLUCOSE [id number] 02:20:00 Test Item Value Reference Range Interpretation Comments POC-GLUCOSE METER 165 mg/dL 70-110 H TESTED AT [facility] 6720 [facility] (test code = [place] 1538) [address] POCT-GLUCOSE [id number] 02:20:00 Test Item Value Reference Range Interpretation Comments POC-GLUCOSE METER 180 mg/dL 70-110 H TESTED AT [facility] 6720 [facility] (test code = [place] 1538) [address] POCT-GLUCOSE [id number] 02:20:00 Test Item Value Reference Range Interpretation Comments POC-GLUCOSE METER 191 mg/dL 70-110 H TESTED AT [facility] 6720 (BEAKER) (test code = [place] 1538) [address] CALCIUM, [id number] 00:05:00 Test Item Value Reference Range Interpretation Comments CALCIUM IONIZED (BEAKER) (test 1.19 mmol/L 1.12-1.27 code = 698) PH, BLOOD (BEAKER) (test code = 7.37 1810) LACTIC ACID, [id number] 00:05:00 Test Item Value Reference Range Interpretation Comments LACTATE BLOOD 4.1 mmol/L 0.5-2.2 H Specimen sligh tly ARTERIAL (2) (BEAKER) hemoly zed (test code = 2874) BLOOD GAS, [id number] 00:04:00 Test Item Value Reference Range Interpretation [...] (test code = 1819) 40.0 % GLUCOSE-STAT [id number] 00:04:00 Test Item Value Reference Range Interpretation Comments GLUCOSE RANDOM (BEAKER) (test code 173 mg/dL 70-110 H = 652) HGB/HCT (H&H) - STAT [id number] 00:04:00 Test Item Value Reference Range Interpretation Comments HEMOGLOBIN (BEAKER) (test code = 8.6 g/dL 12.0-15.0 L 410) HEMATOCRIT (BEAKER) (test code = 25.0 % 36.0-45.0 L 411) [id number] 00:02:00 Test Item Value Reference Range Interpretation Comments MAGNESIUM (BEAKER) (test code = 2.4 mg/dL 1.6-2.6 627) Check Serum Magnesium level 2 hours after IV magnesium replacement.SODIUM NA- STAT [id number] 00:00:00 Test Item Value Reference Range Interpretation Comments SODIUM (BEAKER) (test code = 381) 137 meq/L 135-148 POTASSIUM-STAT [id number] 00:00:00 Test Item Value Reference Range Interpretation Comments POTASSIUM (BEAKER) (test code = 4.1 meq/L 3.6-5.5 379) POCT-GLUCOSE [id number] 22:43:00 Test Item Value Reference Range Interpretation Comments POC-GLUCOSE METER 182 mg/dL 70-110 H TESTED AT [place] [address] ([facility] (test code = [facility] 1538) [address] POCT-GLUCOSE [id number] 22:43:00 Test Item Value Reference Range Interpretation Comments POC-GLUCOSE METER 174 mg/dL 70-110 H TESTED AT [place] [address] ([facility] (test code = [facility] 1538) [address] POCT-GLUCOSE [id number] 22:43:00 Test Item Value Reference Range Interpretation Comments POC-GLUCOSE METER 150 mg/dL 70-110 H TESTED AT [place] [address] ([facility] (test code = [facility] 1538) [address] CALCIUM, [id number] 19:54:00 Test Item Value Reference Range Interpretation Comments CALCIUM IONIZED (BEAKER) (test 1.16 mmol/L 1.12-1.27 code = 698) PH, BLOOD (BEAKER) (test code = 7.39 1810) LACTIC ACID, [id number] 19:40:00 Test Item Value Reference Range Interpretation Comments LACTATE BLOOD ARTERIAL (2) 2.3 mmol/L 0.5-2.2 H (BEAKER) (test code = 2874) [id number] 19:38:00 Test Item Value Reference Range Interpretation Comments MAGNESIUM (BEAKER) (test code = 2.2 mg/dL 1.6-2.6 627) SODIUM NA-STAT [id number] 19:24:00 Test Item Value Reference Range Interpretation Comments SODIUM (BEAKER) (test code = 381) 135 meq/L 135-148 POTASSIUM-STAT [id number] 19:24:00 Test Item Value Reference Range Interpretation Comments POTASSIUM (BEAKER) (test code = 3.7 meq/L 3.6-5.5 379) BLOOD GAS, [id number] 19:24:00 Test Item Value Reference Range Interpretation [...] (test code = 1819) 40.0 % GLUCOSE-STAT [id number] 19:24:00 Test Item Value Reference Range Interpretation Comments GLUCOSE RANDOM (BEAKER) (test code 163 mg/dL 70-110 H = 652) HGB/HCT (H&H) - STAT [id number] 19:24:00 Test Item Value Reference Range Interpretation Comments HEMOGLOBIN (BEAKER) (test code = 9.5 g/dL 12.0-15.0 L 410) HEMATOCRIT (BEAKER) (test code = 28.0 % 36.0-45.0 L 411) OXYGEN SATURATION, [id number] 19:23:00 Test Item Value Reference Range Interpretation Comments O2 SATURATION (MEASURED) (BEAKER) 73.8 % (test code = 1455) POCT-GLUCOSE [id number] 17:19:00 Test Item Value Reference Range Interpretation Comments POC-GLUCOSE METER 128 mg/dL 70-110 H TESTED AT [facility] 6720 (BEAKER) (test code = [facility] [place] 1538) [address] OXYGEN SATURATION, [id number] 17:19:00 Test Item Value Reference Range Interpretation Comments O2 SATURATION (MEASURED) (BEAKER) 60.6 % (test code = 1455) POCT-GLUCOSE [id number] 17:19:00 Test Item Value Reference Range Interpretation Comments POC-GLUCOSE METER 158 mg/dL 70-110 H TESTED AT [facility] 67 ([facility]) (test code = DAVE Borja [facility] 1538) [address] LACTIC ACID, [id number] 17:01:00 Test Item Value Reference Range Interpretation Comments LACTATE BLOOD ARTERIAL (2) 1.5 mmol/L 0.5-2.2 (BEAKER) (test code = 2874) HEMOGLOBIN AND [id number] 16:49:00 Test Item Value Reference Range Interpretation Comments HEMOGLOBIN (BEAKER) (test code = 8.8 GM/DL 11.2-15.7 L 410) HEMATOCRIT (BEAKER) (test code = 26.5 % 34.1-44.9 L 411) POCT-GLUCOSE [id number] 16:31:00 Test Item Value Reference Range Interpretation Comments POC-GLUCOSE METER 191 mg/dL 70-110 H TESTED AT [place] [address] ([facility]) (test code = [facility] 1538) [address] BLOOD GAS, [id number] 16:26:00 Test Item Value Reference Range Interpretation [...] (BEAKER) (test code = 1819) 40.0 % [id number] 13:48:00 Test Item Value Reference Range Interpretation Comments MAGNESIUM (BEAKER) 2.2 mg/dL 1.6-2.6 Specimen slightly (test code = 627) hemolyzed [id number] 13:48:00 Test Item Value Reference Range Interpretation Comments PHOSPHORUS (BEAKER) 4.2 mg/dL 2.3-4.7 Specimen slightly (test code = 604) hemolyzed BASIC METABOLIC [id number] 13:48:00 Test Item Value Reference Range Interpretation [...] 697) EGFR (BEAKER) (test 67 mL/min/1.73 ESTIMA FRANK GFR IS code = 1092) sq m NOT ACCURATE CREATININE CLEARANCE IN PREDICTING GLOMERULAR FILTRATION RATE . ESTIMATED GFR I S NOT APPLICABLE FOR DIALYSIS PATIEN TS. LACTIC ACID, [id number] 13:42:00 Test Item Value Reference Range Interpretation Comments LACTATE BLOOD 1.1 mmol/L 0.5-2.2 Specimen sligh tly ARTERIAL (2) (BEAKER) hemoly zed (test code = 2874) RAD, CHEST, 1 VIEW, NON [id number] 13:35:00Reason for exam:->POST OPShould this be performed [...] intact and well aligned. Signed: Logan Bean MDRepor t Verified Date/Time: 08/05/2018 13:35:26 Reading Location: [facility] Radiology Reading Room CBC W/PLT COUNT & AUTO [id number] 13:33:00 Test Item Value Reference Range Interpretation [...] (BEAKER) (test code = 2801) BLOOD GAS, [id number] 13:27:00 Test Item Value Reference Range Interpretation [...] code = 1819) 60.0 % OXYGEN SATURATION, [id number] 13:21:00 Test Item Value Reference Range Interpretation Comments O2 SATURATION (MEASURED) (BEAKER) 64.2 % (test code = 1455) [id number] 12:22:00 Test Item Value Reference Range Interpretation Comments FIBRINOGEN LEVEL (BEAKER) (test 225 mg/dl 225-434 code = 658) [id number] 12:22:00 Test Item Value Reference Range Interpretation Comments PARTIAL THROMBOPLASTIN TIME 33.4 seconds 22.5-36.0 (BEAKER) (test code = 760) PROTHROMBIN [id number] 12:21:00 Test Item Value Reference Range Interpretation Comments PROTIME (BEAKER) (test code = 19.2 seconds 11.9-14.2 H 759) INR (BEAKER) (test code = 370) 1.7 <=5.9 Effective 08/04/2018: PT Reference Range ChangeNew: 11.9-14.2 Previous: 11.7- 14.7RECOMMENDED COUMADIN/WARFARIN INR THERAPY RANGESSTANDARD DOSE: 2.0-3.0 Includes: PROPHYLAXIS for venous thrombosis, systemic embolization; TREATMENT for venous thrombosis and/or pulmonary embolus.HIGH RISK: Target INR is 2.5-3.5 for patients wiht mechanical heart valves.CBC (HEMOGRAM [...] 0-0 H (BEAKER) (test code = 413) [id number] 11:30:00 Test Item Value Reference Range Interpretation Comments ACTIVATED CLOTTING TIME 109 sec TEST ED AT [facility] 6720 (BEAKER) (test code = [place] 441) [address] [id number] 11:30:00 Test Item Value Reference Range Interpretation Comments ACTIVATED CLOTTING TIME 433 sec TEST ED AT [place] [address] ([facility]) (test code = [place] 441) [address] [id number] 11:30:00 Test Item Value Reference Range Interpretation Comments ACTIVATED CLOTTING TIME 532 sec TEST ED AT [place] [address] ([facility]) (test code = [place] 441) [address] [id number] 11:30:00 Test Item Value Reference Range Interpretation Comments ACTIVATED CLOTTING TIME 648 sec TEST ED AT [place] [address] ([facility]) (test code = [place] 441) [address] [id number] 11:30:00 Test Item Value Reference Range Interpretation Comments ACTIVATED CLOTTING TIME 483 sec TEST ED AT [place] [address] ([facility]) (test code = [place] 441) [address] [id number] 11:30:00 Test Item Value Reference Range Interpretation Comments ACTIVATED CLOTTING TIME 395 sec TEST ED AT [place] [address] ([facility]) (test code = [place] 441) [address] CALCIUM, [id number] 11:21:00 Test Item Value Reference Range Interpretation Comments CALCIUM IONIZED (BEAKER) (test 1.31 mmol/L 1.12-1.27 H code = 698) PH, BLOOD (BEAKER) (test code = 7.38 1810) BLOOD GAS, [id number] 11:21:00 Test Item Value Reference Range Interpretation [...] code = 1819) 100.0 % SODIUM NA-STAT [id number] 11:21:00 Test Item Value Reference Range Interpretation Comments SODIUM (BEAKER) (test code = 381) 134 meq/L 135-148 L GLUCOSE-STAT [id number] 11:21:00 Test Item Value Reference Range Interpretation Comments GLUCOSE RANDOM (BEAKER) (test code 185 mg/dL 70-110 H = 652) HGB/HCT (H&H) - STAT [id number] 11:21:00 Test Item Value Reference Range Interpretation Comments HEMOGLOBIN (BEAKER) (test code = 8.6 g/dL 12.0-15.0 L 410) HEMATOCRIT (BEAKER) (test code = 25.0 % 36.0-45.0 L 411) POTASSIUM-STAT [id number] 11:20:00 Test Item Value Reference Range Interpretation Comments POTASSIUM (BEAKER) (test code = 3.8 meq/L 3.6-5.5 379) POTASSIUM-STAT [id number] 10:50:00 Test Item Value Reference Range Interpretation Comments POTASSIUM (BEAKER) (test code = 4.7 meq/L 3.6-5.5 379) BLOOD GAS, [id number] 10:50:00 Test Item Value Reference Range Interpretation [...] code = 1819) 65.0 % SODIUM NA-STAT [id number] 10:50:00 Test Item Value Reference Range Interpretation Comments SODIUM (BEAKER) (test code = 381) 132 meq/L 135-148 L GLUCOSE-STAT [id number] 10:50:00 Test Item Value Reference Range Interpretation Comments GLUCOSE RANDOM (BEAKER) (test code 185 mg/dL 70-110 H = 652) HGB/HCT (H&H) - STAT [id number] 10:50:00 Test Item Value Reference Range Interpretation Comments HEMOGLOBIN (BEAKER) (test code = 9.2 g/dL 12.0-15.0 L 410) HEMATOCRIT (BEAKER) (test code = 27.0 % 36.0-45.0 L 411) POTASSIUM-STAT [id number] 10:23:00 Test Item Value Reference Range Interpretation Comments POTASSIUM (BEAKER) (test code = 5.2 meq/L 3.6-5.5 379) BLOOD GAS, [id number] 10:23:00 Test Item Value Reference Range Interpretation [...] (test code = 1819) 65.0 % GLUCOSE-STAT [id number] 10:23:00 Test Item Value Reference Range Interpretation Comments GLUCOSE RANDOM (BEAKER) (test code 170 mg/dL 70-110 H = 652) HGB/HCT (H&H) - STAT [id number] 10:23:00 Test Item Value Reference Range Interpretation Comments HEMOGLOBIN (BEAKER) (test code = 8.9 g/dL 12.0-15.0 L 410) HEMATOCRIT (BEAKER) (test code = 26.0 % 36.0-45.0 L 411) SODIUM NA-STAT [id number] 10:23:00 Test Item Value Reference Range Interpretation Comments SODIUM (BEAKER) (test code = 381) 132 meq/L 135-148 L BLOOD GAS, [id number] 09:58:00 Test Item Value Reference Range Interpretation [...] code = 1819) 60.0 % SODIUM NA-STAT [id number] 09:58:00 Test Item Value Reference Range Interpretation Comments SODIUM (BEAKER) (test code = 381) 132 meq/L 135-148 L GLUCOSE-STAT [id number] 09:58:00 Test Item Value Reference Range Interpretation Comments GLUCOSE RANDOM (BEAKER) (test code 160 mg/dL 70-110 H = 652) HGB/HCT (H&H) - STAT [id number] 09:58:00 Test Item Value Reference Range Interpretation Comments HEMOGLOBIN (BEAKER) (test code = 8.9 g/dL 12.0-15.0 L 410) HEMATOCRIT (BEAKER) (test code = 26.0 % 36.0-45.0 L 411) POTASSIUM-STAT [id number] 09:56:00 Test Item Value Reference Range Interpretation Comments POTASSIUM (BEAKER) (test code = 4.8 meq/L 3.6-5.5 379) BLOOD GAS, [id number] 09:29:00 Test Item Value Reference Range Interpretation [...] code = 1819) 80.0 % SODIUM NA-STAT [id number] 09:29:00 Test Item Value Reference Range Interpretation Comments SODIUM (BEAKER) (test code = 381) 131 meq/L 135-148 L GLUCOSE-STAT [id number] 09:29:00 Test Item Value Reference Range Interpretation Comments GLUCOSE RANDOM (BEAKER) (test code 180 mg/dL 70-110 H = 652) HGB/HCT (H&H) - STAT [id number] 09:29:00 Test Item Value Reference Range Interpretation Comments HEMOGLOBIN (BEAKER) (test code = 7.1 g/dL 12.0-15.0 L 410) HEMATOCRIT (BEAKER) (test code = 21.0 % 36.0-45.0 L 411) POTASSIUM-STAT [id number] 09:28:00 Test Item Value Reference Range Interpretation Comments POTASSIUM (BEAKER) (test code = 5.1 meq/L 3.6-5.5 379) CALCIUM, [id number] 08:02:00 Test Item Value Reference Range Interpretation Comments CALCIUM IONIZED (BEAKER) (test 1.14 mmol/L 1.12-1.27 code = 698) PH, BLOOD (BEAKER) (test code = 7.54 1810) BLOOD GAS, [id number] 08:02:00 Test Item Value Reference Range Interpretation [...] code = 1819) 100.0 % SODIUM NA-STAT [id number] 08:02:00 Test Item Value Reference Range Interpretation Comments SODIUM (BEAKER) (test code = 381) 134 meq/L 135-148 L HGB/HCT (H&H) - STAT [id number] 08:02:00 Test Item Value Reference Range Interpretation Comments HEMOGLOBIN (BEAKER) (test code = 11.2 g/dL 12.0-15.0 L 410) HEMATOCRIT (BEAKER) (test code = 33.0 % 36.0-45.0 L 411) GLUCOSE-STAT [id number] 08:01:00 Test Item Value Reference Range Interpretation Comments GLUCOSE RANDOM (BEAKER) (test code 106 mg/dL 70-110 = 652) POTASSIUM-STAT [id number] 08:01:00 Test Item Value Reference Range Interpretation Comments POTASSIUM (BEAKER) (test code = 3.8 meq/L 3.6-5.5 379) POCT-GLUCOSE [id number] 05:58:00 Test Item Value Reference Range Interpretation Comments POC-GLUCOSE METER 114 mg/dL 70-110 H TESTED AT [facility] 6720 (BEAKER) (test code = [place] 1538) [address] TISSUE [id number] 15:29:00Surgical Pathology Report Case: [id number] Authorizing Provider: Sabas Aquino, Collected: 07/28/2018 Adrián SMITH Ordering Location: [facility] Received: 07/28/2018 1614 PERIOPERATIVE SERVICES Pathologist: Alvaro Chavez MD Specimen: Plaque, Carotid PART A RIGHT CAROTID PLAQUE, ENDARTERECTOMY:CALCIFIC ATHEROSCLEROSIS. Signing Pathologist Direct Phone Line: [phone] signed by Alvaro Chavez MD on 08/02/2018 at 3:29 [id number], [id number] stenosis, rightRig ht carotidA. Received in formalin labeled "carotid" a 3 x 1.3 x 1 cm foreman-pink vascular segment. Foreman-yellow and calcified plaque is identified. Funeral Planning Counselor sections are submitted in cassette A1 following decalcification. CG/pl Performed.POCT-GLUCOSE [id number] 16:25:00 Test Item Value Reference Range Interpretation Comments POC-GLUCOSE METER 173 mg/dL 70-110 H TESTED AT [place] [address] ([facility]) (test code = [place] 1538) [address] POCT-GLUCOSE [id number] 12:08:00 Test Item Value Reference Range Interpretation Comments POC-GLUCOSE METER 194 mg/dL 70-110 H TESTED AT [place] [address] ([facility]) (test code = [place] 1538) [address] POCT-GLUCOSE [id number] 07:15:00 Test Item Value Reference Range Interpretation Comments POC-GLUCOSE METER 228 mg/dL 70-110 H TESTED AT [place] [address] ([facility]) (test code = DAVE Borja [facility] 1538) [address] CBC W/PLT COUNT & AUTO [id number] 06:14:00 Test Item Value Reference Range Interpretation [...] PERCENT (BEAKER) (test code = 2801) CALCIUM, [id number] 05:52:00 Test Item Value Reference Range Interpretation Comments CALCIUM IONIZED (BEAKER) (test 1.24 mmol/L 1.12-1.27 code = 698) PH, BLOOD (BEAKER) (test code = 7.40 1810) POCT-GLUCOSE [id number] 22:03:00 Test Item Value Reference Range Interpretation Comments POC-GLUCOSE METER 217 mg/dL 70-110 H TESTED AT [facility] 67[address] [facility] (test code = DAVE Borja [facility] 1538) [address] POCT-GLUCOSE [id number] 17:53:00 Test Item Value Reference Range Interpretation Comments POC-GLUCOSE METER 252 mg/dL 70-110 H TESTED AT [facility] 67[address] ([facility] (test code = [facility] 1538) [address] RAD, ABDOMEN/KUB, 1 VIEW [id number] 15:31:00Reason for exam:->nauseaFINAL REPORT EXAM: Frontal chest [...] MDReport Verified Date/Time: 07/30/2018 15:31:29 Reading Location: [facility] Women POCT-GLUCOSE [id number] 12:34:00 Test Item Value Reference Range Interpretation Comments POC-GLUCOSE METER 244 mg/dL 70-110 H TESTED AT [facility] 6720 (BEAKER) (test code = [facility] 1538) [address] POCT-GLUCOSE [id number] 09:16:00 Test Item Value Reference Range Interpretation Comments POC-GLUCOSE METER 237 mg/dL 70-110 H TESTED AT [facility] 6720 (BEAKER) (test code = [facility] 1538) [address] CALCIUM, [id number] 06:24:00 Test Item Value Reference Range Interpretation Comments CALCIUM IONIZED (BEAKER) (test 1.22 mmol/L 1.12-1.27 code = 698) PH, BLOOD (BEAKER) (test code = 7.39 1810) [id number] 05:34:00 Test Item Value Reference Range Interpretation Comments PHOSPHORUS (BEAKER) (test code = 2.4 mg/dL 2.3-4.7 604) [id number] 05:34:00 Test Item Value Reference Range Interpretation Comments MAGNESIUM (BEAKER) (test code = 1.5 mg/dL 1.6-2.6 L 627) BASIC METABOLIC [id number] 05:34:00 Test Item Value Reference Range Interpretation [...] 697) EGFR (BEAKER) (test 68 mL/min/1.73 ESTIMA FRANK GFR IS code = 1092) sq m NOT ACCURATE CREATININE CLEARANCE IN PREDICTING GLOMERULAR FILTRATION RATE . ESTIMATED GFR I S NOT APPLICABLE FOR DIALYSIS PATIEN TS. CBC W/PLT COUNT & AUTO [id number] 05:27:00 Test Item Value Reference Range Interpretation [...] NEUTROPHILS ABSOLUTE COUNT 5.34 K/ L 1.56-6.13 ([facility]) (test code = 670) LYMPHOCYTES ABSOLUTE COUNT 1.95 K/ L 1.18-3.74 (BEAKER) (test code = 414) MONOCYTES ABSOLUTE COUNT (BEAKER) 1.18 K/ L 0.24-0.36 H (test code = 415) EOSINOPHILS ABSOLUTE COUNT 0.05 K/ L 0.04-0.36 (BEAKER) (test code = 416) BASOPHILS ABSOLUTE COUNT (BEAKER) 0.04 K/ L 0.01-0.08 (test code = 417) IMMATURE GRANULOCYTES-RELATIVE 1 % 0-1 PERCENT ([facility]) (test code = 2801) POCT-GLUCOSE [id number] 21:42:00 Test Item Value Reference Range Interpretation Comments POC-GLUCOSE METER 186 mg/dL 70-110 H TESTED AT [place] [address] ([facility]) ([facility] 1538) [address] POCT-GLUCOSE [id number] 18:04:00 Test Item Value Reference Range Interpretation Comments POC-GLUCOSE METER 162 mg/dL 70-110 H TESTED AT [place] [address] ([facility]) (test code = [facility] 1538) [address] POCT-GLUCOSE [id number] 13:39:00 Test Item Value Reference Range Interpretation Comments POC-GLUCOSE METER 109 mg/dL 70-110 TESTED AT [place] [address] ([facility]) (test code = [facility] [place] [facility] 1538) [address] POCT-GLUCOSE [id number] 13:39:00 Test Item Value Reference Range Interpretation Comments POC-GLUCOSE METER 169 mg/dL 70-110 H TESTED AT [place] [address] ([facility]) (test code = [facility] [place] 1538) [address] POCT-GLUCOSE [id number] 13:39:00 Test Item Value Reference Range Interpretation Comments POC-GLUCOSE METER 202 mg/dL 70-110 H TESTED AT [place] [address] ([facility]) (test code = [facility] [place] 1538) [address] POCT-GLUCOSE [id number] 12:28:00 Test Item Value Reference Range Interpretation Comments POC-GLUCOSE METER 175 mg/dL 70-110 H TESTED AT [place] [address] ([facility]) (test code = DAVE Borja [facility] 1538) [address] POCT-GLUCOSE [id number] 10:45:00 Test Item Value Reference Range Interpretation Comments POC-GLUCOSE METER 181 mg/dL 70-110 H TESTED AT [facility] 67[address] [facility] (test code = DAVE Borja [facility] 1538) [address] POCT-GLUCOSE [id number] 09:08:00 Test Item Value Reference Range Interpretation Comments POC-GLUCOSE METER 90 mg/dL 70-110 TESTED AT [place] [id number] ([facility]) (test code = DAVE [place]ja [facility] [address]38) POCT-GLUCOSE [id number] 09:08:00 Test Item Value Reference Range Interpretation Comments POC-GLUCOSE METER 78 mg/dL 70-110 TESTED AT [place] [address] ([facility]) (test code = DAVE Borja [facility] [address]38) RAD, CHEST, 1 VIEW, NON [id number] 07:37:00Reason for exam:->POST OPShould this be performed at the bedside?->YesFINAL REPORT CLINICAL HISTORY: POST OP TECHNIQUE: 1 view of the chest. COMPARISON: 07/28/2018 IMPRESSION: There are increased bilateral airspace opacities with suspected trace bilateral pleural effusions. The cardiomediastinal silhouette is magnified by technique. Signed: Annamaria Vargas Verified Date/Time: 07/29/2018 07:37:56 Reading Location: [facility] Radiology Reading Room PHOSPHORUS 2018-07-29 07:21:00 Test Item Value Reference Range Interpretation Comments PHOSPHORUS (BEAKER) (test code = 2.9 mg/dL 2.3-4.7 604) [id number] 07:21:00 Test Item Value Reference Range Interpretation Comments MAGNESIUM (BEAKER) (test code = 2.0 mg/dL 1.6-2.6 627) BASIC METABOLIC [id number] 07:21:00 Test Item Value Reference Range Interpretation [...] 697) EGFR (BEAKER) (test 70 mL/min/1.73 ESTIMA FRANK GFR IS code = 1092) sq m NOT ACCURATE CREATININE CLEARANCE IN PREDICTING GLOMERULAR FILTRATION RATE . ESTIMATED GFR I S NOT APPLICABLE FOR DIALYSIS PATIEN TS. BLOOD GAS, [id number] 06:00:00 Test Item Value Reference Range Interpretation [...] 44.0 % CBC W/PLT COUNT & AUTO [id number] 04:44:00 Test Item Value Reference Range Interpretation [...] (BEAKER) (test code = 2801) BLOOD GAS, [id number] 04:28:00 Test Item Value Reference Range Interpretation [...] (test code = 1819) 36.0 % CALCIUM, [id number] 04:27:00 Test Item Value Reference Range Interpretation Comments CALCIUM IONIZED (BEAKER) (test 1.22 mmol/L 1.12-1.27 code = 698) PH, BLOOD (BEAKER) (test code = 7.41 1810) POCT-GLUCOSE [id number] 01:35:00 Test Item Value Reference Range Interpretation Comments POC-GLUCOSE METER 220 mg/dL 70-110 H TESTED AT [place] [address] ([facility] (test code = DAVE Borja [facility] 1538) [address] POCT-GLUCOSE [id number] 01:35:00 Test Item Value Reference Range Interpretation Comments POC-GLUCOSE METER 258 mg/dL 70-110 H TESTED AT [place] [address] ([facility] (test code = [facility] [place] 1538) [address] POCT-GLUCOSE [id number] 01:35:00 Test Item Value Reference Range Interpretation Comments POC-GLUCOSE METER 263 mg/dL 70-110 H TESTED AT [place] [address] ([facility] (test code = [facility] [facility] 1538) [address] BLOOD GAS, [id number] 01:24:00 Test Item Value Reference Range Interpretation [...] code = 1819) 36.0 % SODIUM NA-STAT [id number] 01:24:00 Test Item Value Reference Range Interpretation Comments SODIUM (BEAKER) (test code = 381) 134 meq/L 135-148 L GLUCOSE-STAT [id number] 01:24:00 Test Item Value Reference Range Interpretation Comments GLUCOSE RANDOM (BEAKER) (test code 195 mg/dL 70-110 H = 652) HGB/HCT (H&H) - STAT [id number] 01:24:00 Test Item Value Reference Range Interpretation Comments HEMOGLOBIN (BEAKER) (test code = 11.8 g/dL 12.0-15.0 L 410) HEMATOCRIT (BEAKER) (test code = 35.0 % 36.0-45.0 L 411) POTASSIUM-STAT [id number] 01:22:00 Test Item Value Reference Range Interpretation Comments POTASSIUM (BEAKER) (test code = 4.9 meq/L 3.6-5.5 379) POCT-GLUCOSE [id number] 22:27:00 Test Item Value Reference Range Interpretation Comments POC-GLUCOSE METER 235 mg/dL 70-110 H TESTED AT [facility] 6720 (BEAKER) (test code = [place] 1538) [address] LACTIC ACID, [id number] 21:01:00 Test Item Value Reference Range Interpretation Comments LACTATE BLOOD 0.9 mmol/L 0.5-2.2 Specimen sligh tly ARTERIAL (2) (BEAKER) hemoly zed (test code = 2874) [id number] 20:58:00 Test Item Value Reference Range Interpretation Comments MAGNESIUM (BEAKER) 2.4 mg/dL 1.6-2.6 Specimen slightly (test code = 627) hemolyzed BLOOD GAS, [id number] 20:23:00 Test Item Value Reference Range Interpretation [...] (test code = 1819) 26.0 % GLUCOSE-STAT [id number] 20:23:00 Test Item Value Reference Range Interpretation Comments GLUCOSE RANDOM (BEAKER) (test code 223 mg/dL 70-110 H = 652) SODIUM NA-STAT [id number] 20:21:00 Test Item Value Reference Range Interpretation Comments SODIUM (BEAKER) (test code = 381) 136 meq/L 135-148 POTASSIUM-STAT [id number] 20:21:00 Test Item Value Reference Range Interpretation Comments POTASSIUM (BEAKER) (test code = 4.1 meq/L 3.6-5.5 379) HGB/HCT (H&H) - STAT [id number] 20:21:00 Test Item Value Reference Range Interpretation Comments HEMOGLOBIN (BEAKER) (test code = 12.2 g/dL 12.0-15.0 410) HEMATOCRIT (BEAKER) (test code = 36.0 % 36.0-45.0 411) CALCIUM, [id number] 20:21:00 Test Item Value Reference Range Interpretation Comments CALCIUM IONIZED (BEAKER) (test 1.25 mmol/L 1.12-1.27 code = 698) PH, BLOOD (BEAKER) (test code = 7.34 1810) RAD, CHEST, 1 VIEW, NON [id number] 18:36:00Reason for exam:->POST OPShould this be performed at the bedside?->YesFINAL REPORT Portable chest. HISTORY: Postoperative. Comparison study: None avai lable. FINDINGS: The cardiac size is enlarged. There [...] be made to exclude other etiologies. Signed: Sarah Gonzalez MDReport Verified Date/Time: 07/28/2018 18:36:16 Reading Location: [address] Consult Reading Room POCT- GLUCOSE [id number] 16:38:00 Test Item Value Reference Range Interpretation Comments POC-GLUCOSE METER 215 mg/dL 70-110 H TESTED AT [facility] 6720 (BEAKER) (test code = DAVE [place] 1538) [address] [id number] 15:42:00 Test Item Value Reference Range Interpretation Comments PHOSPHORUS (BEAKER) (test code = 3.5 mg/dL 2.3-4.7 604) [id number] 15:42:00 Test Item Value Reference Range Interpretation Comments MAGNESIUM (BEAKER) (test code = 1.3 mg/dL 1.6-2.6 L 627) BASIC METABOLIC [id number] 15:42:00 Test Item Value Reference Range Interpretation [...] 697) EGFR (BEAKER) (test 55 mL/min/1.73 ESTIMA FRANK GFR IS code = 1092) sq m NOT ACCURATE CREATININE CLEARANCE IN PREDICTING GLOMERULAR FILTRATION RATE . ESTIMATED GFR I S NOT APPLICABLE FOR DIALYSIS PATIEN TS. LACTIC ACID, [id number] 15:38:00 Test Item Value Reference Range Interpretation Comments LACTATE BLOOD 1.3 mmol/L 0.5-2.2 Specimen sligh tly ARTERIAL (2) (BEAKER) hemoly zed (test code = 2874) [id number] 15:36:00 Test Item Value Reference Range Interpretation Comments PROTIME (BEAKER) (test code = 15.5 seconds 11.7-14.7 H 759) INR (BEAKER) (test code = 370) 1.3 <=5.9 PARTIAL THROMBOPLASTIN TIME 24.3 seconds 22.5-36.0 (BEAKER) (test code = 760) RECOMMENDED COUMADIN/WARFARIN INR THERAPY RANGESSTANDARD DOSE: 2.0 - 3.0 Includes: PROPHYLAXIS for venous thrombosis, systemic embolization; TREATMENT for venous thrombosis and/or pulmonary embolus.HIGH RISK: Target INR is 2.5-3.5 for patients with mechanical heart valves.CBC W/PLT COUNT & AUTO [id number] 15:34:00 Test Item Value Reference Range Interpretation [...] PERCENT (BEAKER) (test code = 2801) GLUCOSE-STAT [id number] 15:33:00 Test Item Value Reference Range Interpretation Comments GLUCOSE RANDOM (BEAKER) (test code 231 mg/dL 70-110 H = 652) BLOOD GAS, [id number] 15:31:00 Test Item Value Reference Range Interpretation [...] code = 1819) 44.0 % SODIUM NA-STAT [id number] 15:31:00 Test Item Value Reference Range Interpretation Comments SODIUM (BEAKER) (test code = 381) 135 meq/L 135-148 POTASSIUM-STAT [id number] 15:31:00 Test Item Value Reference Range Interpretation Comments POTASSIUM (BEAKER) (test code = 4.0 meq/L 3.6-5.5 379) HGB/HCT (H&H) - STAT [id number] 15:31:00 Test Item Value Reference Range Interpretation Comments HEMOGLOBIN (BEAKER) (test code = 12.2 g/dL 12.0-15.0 410) HEMATOCRIT (BEAKER) (test code = 36.0 % 36.0-45.0 411) [id number] 08:00:00 Test Item Value Reference Range Interpretation Comments MAGNESIUM (BEAKER) (test code = 1.9 mg/dL 1.6-2.6 627) BASIC METABOLIC [id number] 08:00:00 Test Item Value Reference Range Interpretation [...] 697) EGFR (BEAKER) (test 65 mL/min/1.73 ESTIMA FRANK GFR IS code = 1092) sq m NOT ACCURATE CREATININE CLEARANCE IN PREDICTING GLOMERULAR FILTRATION RATE . ESTIMATED GFR I S NOT APPLICABLE FOR DIALYSIS PATIEN TS. CBC W/PLT COUNT & AUTO [id number] 07:23:00 Test Item Value Reference Range Interpretation [...] PERCENT (BEAKER) (test code = 2801) HEMOGLOBIN [id number] 23:04:00 Test Item Value Reference Range Interpretation Comments HEMOGLOBIN A1C (BEAKER) (test code = 7.7 % 4.3-6.1 H 368) POCT-GLUCOSE [id number] 23:03:00 Test Item Value Reference Range Interpretation Comments POC-GLUCOSE METER 261 mg/dL 70-110 H TESTED AT [facility] 6720 (BEAKER) (test code = [place] 1538) [address] COMPREHENSIVE METABOLIC [id number] 21:58:00 Test Item Value Reference Range Interpretation [...] hemolyzed EGFR (BEAKER) (test 61 mL/min/1.73 ESTIMA FRANK GFR IS code = 1092) sq m NOT ACCURATE CREATININE CLEARANCE IN PREDICTING GLOMERULAR FILTRATION RATE . ESTIMATED GFR I S NOT APPLICABLE FOR DIALYSIS PATIEN TS. CBC W/PLT COUNT & AUTO [id number] 21:33:00 Test Item Value Reference Range Interpretation [...] 0-1 PERCENT (BEAKER) (test code = 2801) [id number] 06:54:004.93[facility] [id number] 06:54:0028 [facility] CjnaijmDRYGVM2941-39-33 06:54:32709Wsppishn QoijgjeUOQTVH1443-78-49 06:54:0050[facility] MbvsbqhPMHPLA7226-37-24 06:54:46568Acpqizln HermannLIPIDS 2014-11-09 06:54:004.22[facility] AlmtyrkPOIOYQ4224-63-12 06:54:28678Ocbmsmyp HermannSPECIAL [id number] 06:54:009.1[facility] HermannTHYROID PANEL 2014-11-09 06:54:001.850[facility] HermannCHEM [id number] 06:54:0056Mem[facility] HermannCHEM [id number] 06:54:000.3[facility] HermannCHEM [id number] 06:54:0037[facility] HermannCHEM [id number] 06:54:0025Mem[facility] HermannCHEM [id number] 06:54:0071Mem[facility] HermannCHEM [id number] 06:54:0025 [facility] HermannCHEM [id number] 06:54:008.8[facility] HermannCHEM PANEL 2014-11-09 06:54:006.8[facility] HermannCHEM [id number] 06:54:003.0[facility] HermannCHEM [id number] 06:54:74708Aazftjan HermannCHEM [id number] 06:54:03961Lgcdsfhl HermannCHEM [id number] 06:54:003.6[facility] HermannCHEM [id number] 06:54:0025[facility] HermannCHEM [id number] 06:54:001.0 [facility] HermannCHEM [id number] 06:54:71924Diruzulj HermannCHEM PANEL 2014-11-09 06:54:000.8[facility] HermannCHEM [id number] 06:54:0010.6[facility] HermannCHEM [id number] 06:54:0025[facility] HermannCHEM [id number] 06:54:003.8[facility] PbsthvdGQBZXEJGFY5628-15-13 06:54:003.5[facility] [place] DODLCSXCDS5188-26-49 06:54:001.5[facility] BftsvptGTYDQIGRQT6771-67-84 06:54:000.2 Memorial KyjfvswVGXTRQIKSF6536-44-16 06:54:000.1[facility] HermannHEMATOLOGY 2014-11-09 06:54:005.9[facility] SbicyqhIVARWTZADM5153-06-55 06:54:0031.4[facility] VrdiaclBUGIRQLYNY1525-81-87 06:54:000.7[facility] KpeyfddFDFOTJASXV9543-18-52 06:54:0013.2[facility] WigcofkSLOSDPRDMY1236-57-17 06:54:0053.0[facility] [place] PDVGQTWEUL4407-03-83 06:54:001.7[facility] LmoumezRZLHVHDMAO0761-53-79 06:54:009.5 [facility] DzrvwlbDVIWYDXSQF1076-03-21 06:54:84340Lncggsch HermannHEMATOLOGY 2014-11-09 06:54:0032.5[facility] QiorujvFYURRCYPRB5682-15-21 06:54:0014.9[facility] LlnwhyzOXFKJQQOFI1379-04-64 06:54:0088.9[facility] JocdzueCTZUDMIIRX0976-03-36 06:54:00 Test Item Value Reference Range Interpretation Comments MCH (test code = MCH) 28.9 pg 27.0-31.0 [facility] GywtfxtILAWMVILFZ1394-39-16 06:54:0011.1[facility]ann[facility]OLOGY 2014-11-09 06:54:0043.8[facility] WexmjxuZZYJREQHFJ2349-49-00 06:54:0014.2[facility] RzexbmkERGJGBECVW8119-20-69 06:54:00 Test Item Value Reference Range Interpretation Comments WBC (test code = WBC) 11.1 3.7-10.4 [facility]6341[facility]-85 06:54:00 Test Item Value Reference Range Interpretation Comments Hct (test code = Hct) 43.8 36.0-48.0 [facility] HospitalGkmujmsKVOEBARGZY9579-05-72 06:54:00 Test Item Value Reference Range Interpretation Comments Hgb (test code = Hgb) 14.2 12.0-16.0 [facility] HospitalAnebbyoTFKNISCRDB8208-73-49 06:54:00 Test Item Value Reference Range Interpretation Comments RBC (test code = RBC) 4.93 4.20-5.40 [facility]HdcfqtiSFQKDO1921-19-47 06:54:00 Test Item Value Reference Range Interpretation Comments VLDL (test code = VLDL) 28 [facility] CampusVtrmccpFKHZKA9204-22-87 06:54:00 Test Item Value Reference Range Interpretation Comments LDL (Calculated) (test code = LDL 133 (Calculated)) [facility] CampusZpqkxioKSRMGM7223-84-80 06:54:00 Test Item Value Reference Range Interpretation Comments HDL (test code = HDL) 50 [facility] CampusNpvnrwnSGGEHG4515-38-63 06:54:00 Test Item Value Reference Range Interpretation Comments Trig (test code = Trig) 142 [facility] CampusVpwgmvkXVHFSN6008-23-83 06:54:00 Test Item Value Reference Range Interpretation Comments CHD Risk (test code = CHD Risk) 4.22 3.90-5.80 [facility] CampusHcfxwurHEAFUA1179-25-69 06:54:00 Test Item Value Reference Range Interpretation Comments Chol (test code = Chol) 211 [facility] JWFTNLVZS0122-03-50 06:54:00 Test Item Value Reference Range Interpretation Comments Hgb A1C (test code = Hgb A1C) 9.1 [facility]THY[facility] [id number] 06:54:00 Test Item Value Reference Range Interpretation Comments TSH (test code = TSH) 1.850 0.360-3.740 [facility]CHE[facility] [id number] 06:54:00 Test Item Value Reference Range Interpretation Comments eGFR (test code = eGFR) 56 [facility]CHEM XUQVU1953-14-02 06:54:00 Test Item Value Reference Range Interpretation Comments Bili Total (test code = Bili Total) 0.3 0.2-1.3 [facility]2015-09-03 06:54:00 Test Item Value Reference Range Interpretation Comments ALT (test code = ALT) 37 See_Comment [Auto mated message] The system which ge nerated this result transmit frank reference range : <=65. The reference range was not used to interpr et this result as aimee l/abnormal. [facility]2015-09-03 06:54:00 Test Item Value Reference Range Interpretation Comments AST (test code = AST) 25 See_Comment [Auto mated message] The system which ge nerated this result transmit frank reference range : <=37. The reference range was not used to interpr et this result as aimee l/abnormal. [facility]2015-09-03 06:54:00 Test Item Value Reference Range Interpretation Comments Alk Phos (test code = Alk Phos) 71 39-136 [facility]2015-09-03 06:54:00 Test Item Value Reference Range Interpretation Comments CO2 (test code = CO2) 25 24-32 [facility]2015-09-03 06:54:00 Test Item Value Reference Range Interpretation Comments Calcium Lvl (test code = Calcium Lvl) 8.8 8.5-10.5 [facility]2015-09-03 06:54:00 Test Item Value Reference Range Interpretation Comments Total Protein (test code = Total 6.8 6.4-8.4 Protein) [facility]2015-09-03 06:54:00 Test Item Value Reference Range Interpretation Comments Albumin Lvl (test code = Albumin Lvl) 3.0 3.5-5.0 [facility]2015-09-03 06:54:00 Test Item Value Reference Range Interpretation Comments Chloride Lvl (test code = Chloride Lvl) 106 95-109 [facility]2015-09-03 06:54:00 Test Item Value Reference Range Interpretation Comments Sodium Lvl (test code = Sodium Lvl) 138 135-145 [facility]2015-09-03 06:54:00 Test Item Value Reference Range Interpretation Comments Potassium Lvl (test code = Potassium 3.6 3.5-5.1 Lvl) [facility]2015-09-03 06:54:00 Test Item Value Reference Range Interpretation Comments BUN (test code = BUN) 25 7-22 [facility]2015-09-03 06:54:00 Test Item Value Reference Range Interpretation Comments Creatinine Lvl (test code = Creatinine 1.0 0.5-1.4 Lvl) [facility]2015-09-03 06:54:00 Test Item Value Reference Range Interpretation Comments Glucose Lvl (test code = Glucose Lvl) 222 70-99 [facility]2015-09-03 06:54:00 Test Item Value Reference Range Interpretation Comments A/G Ratio (test code = A/G Ratio) 0.8 0.7-1.6 [facility]2015-09-03 06:54:00 Test Item Value Reference Range Interpretation Comments AGAP (test code = AGAP) 10.6 10.0-20.0 [facility]2015-09-03 06:54:00 Test Item Value Reference Range Interpretation Comments B/C Ratio (test code = B/C Ratio) 25 6-25 [facility]2015-09-03 06:54:00 Test Item Value Reference Range Interpretation Comments Globulin (test code = Globulin) 3.8 2.0-4.0 [facility]ryxqjgENUGQGKQQY5044-77-82 06:54:00 Test Item Value Reference Range Interpretation Comments Lymphocytes # (test code = Lymphocytes 3.5 1.0-5.5 #) [facility] HoustonXjweshnHXIYYIFIVH3673-87-76 06:54:00 Test Item Value Reference Range Interpretation Comments Monocytes # (test code 1.5 See_Comment [Aut omated message] The = Monocytes #) system which generated this result tra nsmitted reference range : <=0.8. The reference r chanelle was not used to int erpret this result as normal/abnormal . [facility] HoustonIcqswkcEMHSLYQZWN9812-65-82 06:54:00 Test Item Value Reference Range Interpretation Comments Eosinophils # (test code 0.2 See_Comment [A utomated message] The = Eosinophils #) system whic h generated this result tra nsmitted reference range : <=0.5. The reference r chanelle was not used to int erpret this result as normal/abnormal . [facility] HoustonZifvucbGIFYBUJWEE6760-08-46 06:54:00 Test Item Value Reference Range Interpretation Comments Basophils # (test code 0.1 See_Comment [Aut omated message] The = Basophils #) system which generated this result tra nsmitted reference range : <=0.2. The reference r chanelle was not used to int erpret this result as normal/abnormal . [facility] HoustonRpiwlizUGDWSKKEFV7896-87-31 06:54:00 Test Item Value Reference Range Interpretation Comments Segs-Bands # (test code = Segs-Bands #) 5.9 1.5-8.1 [facility] HoustonLjbypxrYNJTBOQWNB5122-63-09 06:54:00 Test Item Value Reference Range Interpretation Comments Lymphocytes (test code = Lymphocytes) 31.4 20.0-40.0 [facility] HoustonGbsbcfaCNBEGAGOQJ6383-51-02 06:54:00 Test Item Value Reference Range Interpretation Comments Basophils (test code = 0.7 See_Comment [Aut omated message] The Basophils) system which ge nerated this result tra nsmitted reference range : <=1.0. The reference r chanelle was not used to int erpret this result as normal/abnormal . [facility] HoustonWpanaydOPXQJMDCAE8572-57-95 06:54:00 Test Item Value Reference Range Interpretation Comments Monocytes (test code = Monocytes) 13.2 2.0-12.0 [facility] HoustonBztmfgePHUGPYCUOX1969-32-65 06:54:00 Test Item Value Reference Range Interpretation Comments Segs (test code = Segs) 53.0 45.0-75.0 [facility] HoustonVezdyeyZURKJQJYUD9047-36-92 06:54:00 Test Item Value Reference Range Interpretation Comments Eosinophils (test code = 1.7 See_Comment [A utomated message] The Eosinophils) system which ge nerated this result tra nsmitted reference range : <=4.0. The reference r chanelle was not used to int erpret this result as normal/abnormal . [facility] HoustonHnetbcvDRUMCUNAXY2445-26-45 06:54:00 Test Item Value Reference Range Interpretation Comments MPV (test code = MPV) 9.5 7.4-10.4 [facility] HoustonEiqmakvDZJJXGVXHV6432-50-75 06:54:00 Test Item Value Reference Range Interpretation Comments Platelet (test code = Platelet) 447 133-450 [facility] HoustonRilwvsbESOJQRQPWS5326-01-11 06:54:00 Test Item Value Reference Range Interpretation Comments MCHC (test code = MCHC) 32.5 32.0-36.0 [facility] MywefwlFRLFKDZRAO6932-09-34 06:54:00 Test Item Value Reference Range Interpretation Comments RDW (test code = RDW) 14.9 11.5-14.5 [facility] IrklmchYHQSZGYDVD8948-72-59 06:54:00 Test Item Value Reference Range Interpretation Comments MCV (test code = MCV) 88.9 80.0-98.0 [facility] WkgemdmULLMMVFSKU1836-45-99 06:54:00 Test Item Value Reference Range Interpretation Comments MCH (test code = MCH) 28.9 pg 27.0-31.0 [facility]TG4853[facility]33-59 [facility]0075[facility] QDZFCQT3817-06-04 21:20:000.05[facility] YRKQTBO8549-15-53 21:20:00 1.0[facility] BULCYOD8058-09-36 21:20:001.3[facility]annCHE[facility] UMHGM9820-91-59 21:20:0042[facility] LJIUR9936-37-50 21:20:001.0 [facility] OVYUQ3856-92-68 21:20:0030[facility]annCHE[facility] PANEL 2014-11-08 21:20:52428Jultwidh HermannCHEM JUEMW7436-73-14 21:20:0023[facility]annCHE[facility] DNCUW1864-68-00 21:20:13036Picthhwx HermannCHEM BAQUJ6526-10-85 21:20:97281Exvdxjjh HermannCHEM PEOVJ7416-63-13 21:20:004.6[facility]annCHE[facility] OTXUE2487-44-05 21:20:009.6[facility]annCHE[facility] EFDIK1985-14-04 21:20:0013.6 [facility] SynhgahGMUWOCRYPV8741-68-84 21:20:00 Test Item Value Reference Range Interpretation Comments PTT (test code = PTT) 24.4 s 22.9-35.8 [facility] KwbmespIFTJXSUVMY5832-12-70 21:20:000.93[facility]annHEMATOLOGY 2014-11-08 21:20:00 Test Item Value Reference Range Interpretation Comments PT (test code = PT) 12.8 s 12.0-14.7 [facility] ZbnqzvrLHQELWBMFZ4171-42-09 21:20:00 Test Item Value Reference Range Interpretation Comments MCH (test code = MCH) 28.9 pg 27.0-31.0 [facility] IfupdhoBLFQIJLSMA2671-09-93 21:20:0088.6[facility]annHEMATOLOGY 2014-11-08 21:20:0046.4[facility] LdwqqkoTDDJWGPNDU3556-78-79 21:20:0032.7[facility] LiauycpNFDAAJKNNI0127-50-68 21:20:0015.2[facility] OmkplyfWLTTRIUBUL5947-01-54 21:20:51219Lnfxwnxi CipeobeGXONKBVMOR8870-53-86 21:20:0014.7[facility] [place] XTOSJLZKLP7236-58-78 21:20:009.2[facility] DwjudkwVUNOVWBCWT2354-96-90 21:20:00 13.3[facility] AkdjntiHPJLWKCIUF3855-12-77 21:20:005.24[facility]annHEMATOLOGY 2014-11-08 21:20:001.6[facility] UielcnvTAKAAFPDJW1033-07-80 21:20:002.1[facility] GhicukeDNKGASTJAB7512-51-67 21:20:009.4[facility] FdwictbEQSUPVCKMH4749-84-07 21:20:000.8[facility] YanmkwzVYWAIESBUE0224-00-87 21:20:000.8[facility] [place] ILHNMRZHTG3153-73-77 21:20:000.1[facility] XonjjjsXEZGZBTNHW5244-79-10 21:20:000.1 [facility] ZwfxnpcQYNTJZZKAK5574-64-29 21:20:0012.0[facility]HEMAT[facility] 2014-11-08 21:20:0015.7[facility] NwphiqoOFFSTCXKBL5693-15-59 21:20:0070.7[facility]annCARDIAC PLJMKGR3611-05-26 21:20:00 Test Item Value Reference Range Interpretation Comments Total CK (test code = Total CK) 75 12-191 [facility] WCWHZJO2448-98-36 21:20:00 Test Item Value Reference Range Interpretation Comments Troponin-I (test code 0.05 See_Comment [Auto mated message] The = Troponin-I) system which g enerated this result transmit frank reference range : <=0.40. The reference r chanelle was not used to interpr et this result as aimee l/abnormal. [facility] RETRFYE5880-89-37 21:20:00 Test Item Value Reference Range Interpretation Comments CK MB (test code = CK MB) 1.0 0.5-3.6 [facility] WIBHGZV1924-99-70 21:20:00 Test Item Value Reference Range Interpretation Comments CK MB Index (test 1.3 See_Comment [Automate d message] The code = CK MB Index) system w [facility] generated this result transmit frank reference range : <=2.5. The reference range was not used to interpr et this result as aimee l/abnormal. [facility] [id number] 21:20:00 Test Item Value Reference Range Interpretation Comments eGFR (test code = eGFR) 42 [facility] [id number] 21:20:00 Test Item Value Reference Range Interpretation Comments Creatinine Lvl (test code = Creatinine 1.0 0.5-1.4 Lvl) [facility]2015-09-02 21:20:00 Test Item Value Reference Range Interpretation Comments BUN (test code = BUN) 30 7-22 [facility]2015-09-02 21:20:00 Test Item Value Reference Range Interpretation Comments Glucose Lvl (test code = Glucose Lvl) 187 70-99 [facility] [id number] 21:20:00 Test Item Value Reference Range Interpretation Comments CO2 (test code = CO2) 23 24-32 [facility] [id number] 21:20:00 Test Item Value Reference Range Interpretation Comments Sodium Lvl (test code = Sodium Lvl) 135 135-145 [facility] [id number] 21:20:00 Test Item Value Reference Range Interpretation Comments Chloride Lvl (test code = Chloride Lvl) 103 95-109 [facility] KLHNG7029-46-81 21:20:00 Test Item Value Reference Range Interpretation Comments Potassium Lvl (test code = Potassium 4.6 3.5-5.1 Lvl) [facility]2015-09-02 21:20:00 Test Item Value Reference Range Interpretation Comments Calcium Lvl (test code = Calcium Lvl) 9.6 8.5-10.5 [facility]2015-09-02 21:20:00 Test Item Value Reference Range Interpretation Comments AGAP (test code = AGAP) 13.6 10.0-20.0 [facility] HoustonIuavttrAPNFHEINWM4870-03-37 21:20:00 Test Item Value Reference Range Interpretation Comments PTT (test code = PTT) 24.4 s 22.9-35.8 [facility] HoustonUdewsxiSPOHURGFZP3271-85-19 21:20:00 Test Item Value Reference Range Interpretation Comments INR (test code = INR) 0.93 0.85-1.17 [facility] HoustonPulwbgzSPXSNUNVJF4744-16-39 21:20:00 Test Item Value Reference Range Interpretation Comments PT (test code = PT) 12.8 s 12.0-14.7 [facility] HoustonZocztndIMRIXRJEAA4694-14-62 21:20:00 Test Item Value Reference Range Interpretation Comments MCH (test code = MCH) 28.9 pg 27.0-31.0 [facility] HoustonKzlxifzLWLRMWWUOV7151-77-29 21:20:00 Test Item Value Reference Range Interpretation Comments MCV (test code = MCV) 88.6 80.0-98.0 [facility] HoustonIpfkvegAITHCEOWAI0086-97-36 21:20:00 Test Item Value Reference Range Interpretation Comments Hct (test code = Hct) 46.4 36.0-48.0 [facility] HoustonQmlkjorCVBXMAPYXV2124-83-60 21:20:00 Test Item Value Reference Range Interpretation Comments MCHC (test code = MCHC) 32.7 32.0-36.0 [facility] HoustonVafvcufKPOFGWLNQG7710-06-00 21:20:00 Test Item Value Reference Range Interpretation Comments Hgb (test code = Hgb) 15.2 12.0-16.0 [facility] HoustonBbrqndsWQZPEDJDUI1571-30-20 21:20:00 Test Item Value Reference Range Interpretation Comments Platelet (test code = Platelet) 451 133-450 [facility] HoustonKfdrmxbQASNWWRIOB6631-65-70 21:20:00 Test Item Value Reference Range Interpretation Comments RDW (test code = RDW) 14.7 11.5-14.5 [facility] HoustonXtgpottOADLOYQBDZ0759-25-23 21:20:00 Test Item Value Reference Range Interpretation Comments MPV (test code = MPV) 9.2 7.4-10.4 [facility] HoustonNrkkcrwMQFBLSIHON6584-28-75 21:20:00 Test Item Value Reference Range Interpretation Comments WBC (test code = WBC) 13.3 3.7-10.4 [facility] HoustonZxtjbevCRIAVBGRUU5825-56-15 21:20:00 Test Item Value Reference Range Interpretation Comments RBC (test code = RBC) 5.24 4.20-5.40 [facility] HoustonIyrawinDJYGMJDSMG9244-96-53 21:20:00 Test Item Value Reference Range Interpretation Comments Monocytes # (test code 1.6 See_Comment [Aut omated message] The = Monocytes #) system which generated this result tra nsmitted reference range : <=0.8. The reference r chanelle was not used to int erpret this result as normal/abnormal . [facility] HoustonAaphjdoNPPNUSTUYX4078-89-19 21:20:00 Test Item Value Reference Range Interpretation Comments Lymphocytes # (test code = Lymphocytes 2.1 1.0-5.5 #) [facility] HoustonPzogypaYCLPFLSQLO6480-43-33 21:20:00 Test Item Value Reference Range Interpretation Comments Segs-Bands # (test code = Segs-Bands #) 9.4 1.5-8.1 [facility] HoustonDbkczmhVQHSLQQUKC8891-96-02 21:20:00 Test Item Value Reference Range Interpretation Comments Basophils (test code = 0.8 See_Comment [Aut omated message] The Basophils) system which ge nerated this result tra nsmitted reference range : <=1.0. The reference r chanelle was not used to int erpret this result as normal/abnormal . [facility] HoustonOoevttyZQAUVMULMQ5872-62-42 21:20:00 Test Item Value Reference Range Interpretation Comments Eosinophils (test code = 0.8 See_Comment [A utomated message] The Eosinophils) system which ge nerated this result tra nsmitted reference range : <=4.0. The reference r chanelle was not used to int erpret this result as normal/abnormal . [facility] HoustonBrxpjfwAEGBCAEOUN8317-55-53 21:20:00 Test Item Value Reference Range Interpretation Comments Basophils # (test code 0.1 See_Comment [Aut omated message] The = Basophils #) system which generated this result tra nsmitted reference range : <=0.2. The reference r chanelle was not used to int erpret this result as normal/abnormal . [facility] HoustonBcbhnfnPYNULGYXRM0128-79-62 21:20:00 Test Item Value Reference Range Interpretation Comments Eosinophils # (test code 0.1 See_Comment [A utomated message] The = Eosinophils #) system whic h generated this result tra nsmitted reference range : <=0.5. The reference r chanelle was not used to int erpret this result as normal/abnormal . [facility] HoustonKxtqezxDWCVSMOENE5853-54-44 21:20:00 Test Item Value Reference Range Interpretation Comments Monocytes (test code = Monocytes) 12.0 2.0-12.0 [facility] HoustonLquglefLMESCIUYUE3191-70-88 21:20:00 Test Item Value Reference Range Interpretation Comments Lymphocytes (test code = Lymphocytes) 15.7 20.0-40.0 [facility] HoustonOklxiksTAZBQELZJP9432-07-30 21:20:00 Test Item Value Reference Range Interpretation Comments Segs (test code = Segs) 70.7 45.0-75.0 [facility]
--- NOTE | 2022-01-01 16:59 | RAD REPORT ---
EXAM DESCRIPTION: CT - CTHCSPWOC - 01/01/2022 4:44 pm CLINICAL HISTORY: fall, head and neck injury COMPARISON: No comparisons TECHNIQUE: Axial 5 mm thick images of the head were obtained. Axial 2 mm thick images of the cervic al spine were obtained with sagittal and coronal reconstruction images generated and reviewed. All CT scans are performed using dose optimization technique as appropriate and may include automated exposure control or mA/KV adjustment according to patient size. FINDINGS: No intracranial hemorrhage, mass, edema or acute intracranial finding. No suspicion for ac oanh infarction. No cortical edema or sulcal effacement. Patient has a lipoma of the corpus callosum i s a normal anatomic variation. Mild to moderate atrophy changes are present with ventricles in propor tion. Chronic ischemic changes are generally mild. Focally more prominent changes in the right pariet al lobe cortical and subcortical white matter likely reflect old CVA. Dense arterial tree calcificati ons are present. Mastoid air cells and paranasal sinuses are clear. No globe or orbit abnormality see n. Cervical bodies are normal in height. There is straightening of the usual cervical lordosis. No sublu xation abnormalities. All disc spaces except C2-3 show loss in height. Disc space narrowing and endpl ate spurring changes are most pronounced C4-5, C5-6 and C6-7. Bilateral bony foraminal encroachment p resent at these levels. No fracture or acute bony abnormality. Arterial tree calcifications are prese nt. Central canal detail is inherently limited. No paraspinal mass or hematoma. IMPRESSION: Negative CT head examination for acute finding. Atrophy and chronic ischemic changes are as detailed. Cervical spine degenerative change as detailed. No acute finding.
--- NOTE | 2022-01-01 17:21 | RAD REPORT ---
EXAM DESCRIPTION: RAD - Knee Right 3 View - 01/01/2022 5:09 pm CLINICAL HISTORY: PAINfollowing fall COMPARISON: No comparisons FINDINGS: No fracture, dislocation or periosteal reaction.No joint effusion seen. Pronounced medial compartment narrowing present with large marginal spurs. The patellofemoral joint space is narrowed a lso with moderate-sized marginal spurring. Spurring along the tibial spine and intercondylar notch al so present. No patella tendon rupture suspected. No foreign body or other soft tissue abnormality. IMPRESSION: Advanced knee joint degenerative changes are present. No acute bone or joint finding con firmed. Clinical concerns for internal derangement or occult bony injury could be further assessed with MR im aging.
--- NOTE | 2022-01-01 17:23 | RAD REPORT ---
EXAM DESCRIPTION: RAD - Hip Right 2 View - 01/01/2022 5:09 pm CLINICAL HISTORY: PAINafter fall COMPARISON: No comparisons FINDINGS: AP and frog-leg views of the right hip were obtained. There is no fracture or dislocation. No AVN or focal head abnormality. Mild for age degenerative salazar ge seen along the superior acetabular rim. SI joint degenerative changes are present but mild for age . Phleboliths are seen along pelvic floor. No periarticular abnormality seen. IMPRESSION: Negative right hip examination for acute or significant findings.
--- NOTE | 2022-01-01 17:24 | RAD REPORT ---
EXAM DESCRIPTION: RAD - Wrist Right 3 View - 01/01/2022 5:08 pm CLINICAL HISTORY: PAINafter fall COMPARISON: No comparisons FINDINGS: No fracture is identified. There is no dislocation or periosteal reaction noted. Radiocarp al joint space is narrowed. Very advanced degenerative change present at the trapezium and trapezoid articulations with the first and second metacarpal bones. Numerous subcortical degenerative cysts are present. There is partial subluxation of the first metacarpal base. Degenerative cysts are seen in t he other carpal bones. No foreign body or other soft tissue abnormality. IMPRESSION: Advanced degenerative change as detailed. No acute right wrist finding.
--- NOTE | 2022-01-01 17:25 | RAD REPORT ---
EXAM DESCRIPTION: RAD - Knee Left 3 View - 01/01/2022 5:09 pm CLINICAL HISTORY: PAINafter fall COMPARISON: Knee Left 3 View dated 07/11/2018 FINDINGS: No fracture, dislocation or periosteal reaction.No joint effusion seen. Advanced medial co mpartment joint space narrowing with large marginal spurs. Patella femoral joint space is narrowed as well large marginal spurs. Lateral compartment, tibial spine and intercondylar notch degenerative sp urring present to a lesser degree. No patella tendon disruption. No pathologic bone process. No soft tissue abnormality. IMPRESSION: Advanced knee joint degenerative change not markedly different from a 2019 comparison. N o acute bone or joint finding. Clinical concerns for internal derangement or occult bony injury could be further assessed with MR im aging.
--- NOTE | 2022-01-01 18:42 | EDPHYS ---
Physician Documentation [facility] Name: Arminda Rodriguez Age: 81 yrs Sex: Female : 1940 Arrival Date: 01/01/2022 Time: 15:57 Bed 20 Private MD: ED Physician Waldemar Major HPI: 01/01 16:11 This 81 yrs old Female presents to ER via Unassigned with complaints of Fall Injury. ms3 16:11 Details of fall: The patient fell from an upright position, while standing. ms3 16:15 Onset: The symptoms/episode began/occurred acutely, 11 hour(s) ago. Associated ms3 injuries: The patient sustained right wrist, right hip, bilateral knees, painful injury. Severity of symptoms: At their worst the symptoms were moderate, a " 7" out of "10", in the emergency department the symptoms are unchanged. Historical: - Allergies: 16:17 Amoxicillin; ld1 16:17 ANGIOTENSIN RECEPTOR ANTAGONIST; ld1 16:17 Byetta; ld1 16:17 Demerol; ld1 16:17 Hydrocodone-Acetaminophen; ld1 16:17 Januvia; ld1 16:17 metformin; ld1 16:17 Niaspan; ld1 16:17 Ymcfvyb-Sdi-Blq Reductase Inhibitors; ld1 16:17 QUINOLONES; ld1 16:17 Tetanus Immune Globulin; ld1 16:17 Zetia; ld1 - Home Meds: 16:29 Eliquis 5 mg oral tab 1 tab 2 times per day [Active]; hydroxyurea 500 mg Oral cap 2x db daily [Active]; pregabalin 75 mg Oral cap 1 cap 2 times per day [Active]; hydroxyzine pamoate 25 mg Oral cap 1 cap 2 times per day [Active]; ropinirole 0.5 mg oral tab [Active]; spironolactone 25 mg Oral tab 1 tab once daily [Active]; furosemide 40 mg Oral tab 1 tab once daily [Active]; pantoprazole 40 mg oral TbEC 1 tab once daily [Active]; 16:34 tramadol 50 mg Oral tab twice a day [Active]; timolol maleate 0.5 % Opht drpd 1 drop 2 db times per day [Active]; Levemir U-100 Insulin subcutaneous [Active]; magnesium oxide 400 mg (241.3 mg magnesium) Oral tab [Active]; Vitamin D Oral 5000 unit [Active]; aspirin 81 mg Oral cap 1 cap once daily [Active]; Refresh Tears 0.5 % ophthalmic (eye) drop 1 drop into both eyes 2x daily [Active]; - PMHx: 16:17 angina pectoris; CAD; Hypertension; VENTRAL HERNIA; Myocardial infarction; ld1 Hyperlipidemia; Diabetes - NIDDM; CVA; - Immunization history:: Adult Immunizations up to date, Client reports receiving the 2nd dose of the Covid vaccine. - Social history:: Smoking status: Patient denies any tobacco usage or history of. Patient/guardian denies using alcohol. ROS: 16:15 Constitutional: Negative for fever, and chills. Neck: Negative for injury, pain, and ms3 swelling, Cardiovascular: Negative for chest pain, and palpitations. Respiratory: Negative for shortness of breath, cough, wheezing, and pleuritic chest pain, Abdomen/GI: Negative for abdominal pain, nausea, vomiting, diarrhea, and constipation. 16:15 MS/extremity: Positive for pain, tenderness, of the right wrist, right hip, right knee, left knee. 16:15 All other systems are negative. Exam: 16:15 Constitutional: This is a well developed, well nourished patient who is awake, alert, ms3 and in no acute distress. Head/Face: Normocephalic, atraumatic. Neck: Trachea midline, no cervical lymphadenopathy. Supple, full range of motion without nuchal rigidity, or vertebral point tenderness. No Meningismus. Chest/axilla: Normal chest wall appearance and motion. Nontender with no deformity. Cardiovascular: Regular rate and rhythm with a normal S1 and S2. No gallops, murmurs, or rubs. Normal PMI, no JVD. No pulse deficits. Respiratory: Lungs have equal breath sounds bilaterally, clear to auscultation and percussion. No rales, rhonchi or wheezes noted. No increased work of breathing, no retractions or nasal flaring. Abdomen/GI: Soft, non-tender, with normal bowel sounds. No distension or tympany. No guarding or rebound. No evidence of tenderness throughout. Back: No spinal tenderness. No costovertebral tenderness. Full range of motion. Skin: Warm, dry with normal turgor. Normal color with no rashes, no lesions, and no evidence of cellulitis. 16:15 Musculoskeletal/extremity: Extremities: noted in the right wrist: pain, tenderness, noted in the right knee: pain, tenderness, noted in the left knee: pain, tenderness, ROM: no acute changes, Circulation is intact in all extremities. Sensation intact. Vital Signs: 16:15 BP 162 / 70; Pulse 60; Resp 18; Temp 97.9(TE); Pulse Ox 97% on R/A; Pain 7/10; ld1 17:30 BP 146 / 64; Pulse 60; Resp 18; Pulse Ox 97% ; db [place] Coma Score: 16:28 Eye Response: spontaneous(4). Verbal Response: oriented(5). Motor Response: obeys db commands(6). Total: 15. Trauma Score (Adult): 16:28 Eye Response: spontaneous(1); Verbal Response: oriented(1); Motor Response: obeys db commands(2); Systolic BP: > 89 mm Hg(4); Respiratory Rate: 10 to 29 per min(4); Sherri Score: 15; Trauma Score: 12 MDM: 16:14 Patient medically screened. ms3 16:15 Differential diagnosis: closed head injury, contusion, fracture. ms3 20:47 Data reviewed: vital signs, nurses notes, radiologic studies, and as a result, I will ms3 discharge patient. Counseling: I had a detailed discussion with the patient and/or guardian regarding: the historical points, exam findings, and any diagnostic results supporting the discharge/admit diagnosis, radiology results, the need for outpatient follow up, to return to the emergency department if symptoms worsen or persist or if there are any questions or concerns that arise at home. ED course: Discussed imaging with patient and her daughter. Patient to follow-up with her primary care physician in 2 to 3 days. Patient understands and agrees with plan. All questions were answered. Return precautions discussed include worsening symptoms, or any other concerns. On reevaluation patient is alert, in no apparent distress, nontoxic appearing.. 01/01 16:15 Order name: CT Head C Spine; Complete Time: 18:35 ms3 01/01 16:15 Order name: Wrist Right 3 View XRAY; Complete Time: 18:35 ms3 01/01 16:15 Order name: Hip Right 2 View XRAY; Complete Time: 18:35 ms3 01/01 16:15 Order name: Knee Left 3 View XRAY; Complete Time: 18:35 ms3 01/01 16:15 Order name: Knee Right 3 View XRAY; Complete Time: 18:35 ms3 Administered Medications: No medications were administered Disposition Summary: 01/01/22 18:42 Discharge Ordered Location: Home ms3 Condition: Stable ms3 Diagnosis - Fall on same level, unspecified ms3 - Pain in right wrist ms3 - Pain in left knee ms3 - Pain in right knee ms3 - Pain in right hip ms3 Followup: ms3 - With: Private Physician - When: 2 - 3 days - Reason: Recheck today's complaints Discharge Instructions: - Discharge Summary Sheet ms3 - Musculoskeletal Pain ms3 Forms: - Medication Reconciliation Form ms3 - Thank You Letter ms3 - Antibiotic Education ms3 - Prescription Opioid Use ms3 Signatures: Dispatcher [employer] EDMS Waldemar Major DO DO ms3 Andreina Franks RN RN ld1 Carla Rea RN RN db Corrections: (The following items were deleted from the chart) 16:16 16:11 Details of fall: The patient fell from an upright position, while standing, ms3 ms3
--- NOTE | 2022-01-01 18:42 | ER ---
Nurse's Notes [facility] Name: Arminda Rodriguez Age: 81 yrs Sex: Female : 1940 Arrival Date: 01/01/2022 Time: 15:57 Bed 20 Private MD: Diagnosis: Fall on same level, unspecified;Pain in right wrist;Pain in left knee;Pain in right knee;Pain in right hip Presentation: 01/01 16:15 Chief complaint: Parent and/or Guardian states: Daughter brought pt to ER - reporting ld1 fall this morning at 0530 per [employer] safety system. Safety system notified daughter of pt falling at home. Pt is on eliquis - reporting pain to Right wrist \T\ Hip, VIDA knee pain. Denies hitting head or LOC. Coronavirus screen: At this time, the client does not indicate any symptoms associated with coronavirus-19. Ebola Screen: No symptoms or risks identified at this time. Initial Sepsis Screen: Does the patient meet any 2 criteria? No. Patient's initial sepsis screen is negative. Does the patient have a suspected source of infection? No. Patient's initial sepsis screen is negative. Risk Assessment: Do you want to hurt yourself or someone else? Patient reports no desire to harm self or others. Onset of symptoms was January 01, 2022. 16:15 Method Of Arrival: Wheelchair ld1 16:15 Acuity: GORDO 3 ld1 19:43 Care prior to arrival: None. lg3 19:43 Mechanism of Injury: Fall. lg3 Triage Assessment: 16:17 General: Appears in no apparent distress. comfortable, Behavior is calm, cooperative, ld1 appropriate for age. Pain: Complains of pain in right hip, right wrist, right knee and left knee Pain does not radiate. Pain currently is 7 out of 10 on a pain scale. Quality of pain is described as throbbing, Pain began suddenly, Is continuous. EENT: No signs and/or symptoms were reported regarding the EENT system. Neuro: Level of Consciousness is awake, alert, obeys commands, Oriented to person, place, time, situation. Cardiovascular: Capillary refill < 3 seconds Patient's skin is warm and dry. Respiratory: Airway is patent Respiratory effort is even, unlabored. GI: Abdomen is round non-distended. : No signs and/or symptoms were reported regarding the genitourinary system. Derm: No signs and/or symptoms reported regarding the dermatologic system. Musculoskeletal: No signs and/or symptoms reported regarding the musculoskeletal system. Historical: - Allergies: 16:17 Amoxicillin; ld1 16:17 ANGIOTENSIN RECEPTOR ANTAGONIST; ld1 16:17 Byetta; ld1 16:17 Demerol; ld1 16:17 Hydrocodone-Acetaminophen; ld1 16:17 Januvia; ld1 16:17 metformin; ld1 16:17 Niaspan; ld1 16:17 Kfgrhud-Jgl-Gki Reductase Inhibitors; ld1 16:17 QUINOLONES; ld1 16:17 Tetanus Immune Globulin; ld1 16:17 Zetia; ld1 - Home Meds: 16:29 Eliquis 5 mg oral tab 1 tab 2 times per day [Active]; hydroxyurea 500 mg Oral cap 2x db daily [Active]; pregabalin 75 mg Oral cap 1 cap 2 times per day [Active]; hydroxyzine pamoate 25 mg Oral cap 1 cap 2 times per day [Active]; ropinirole 0.5 mg oral tab [Active]; spironolactone 25 mg Oral tab 1 tab once daily [Active]; furosemide 40 mg Oral tab 1 tab once daily [Active]; pantoprazole 40 mg oral TbEC 1 tab once daily [Active]; 16:34 tramadol 50 mg Oral tab twice a day [Active]; timolol maleate 0.5 % Opht drpd 1 drop 2 db times per day [Active]; Levemir U-100 Insulin subcutaneous [Active]; magnesium oxide 400 mg (241.3 mg magnesium) Oral tab [Active]; Vitamin D Oral 5000 unit [Active]; aspirin 81 mg Oral cap 1 cap once daily [Active]; Refresh Tears 0.5 % ophthalmic (eye) drop 1 drop into both eyes 2x daily [Active]; - PMHx: 16:17 angina pectoris; CAD; Hypertension; VENTRAL HERNIA; Myocardial infarction; ld1 Hyperlipidemia; Diabetes - NIDDM; CVA; - Immunization history:: Adult Immunizations up to date, Client reports receiving the 2nd dose of the Covid vaccine. - Social history:: Smoking status: Patient denies any tobacco usage or history of. Patient/guardian denies using alcohol. Screenin:28 Abuse screen: Denies threats or abuse. Denies injuries from another. Tuberculosis db screening: No symptoms or risk factors identified. Primary Survey: 16:24 NO uncontrolled hemorrhage observed. Breathing/Chest: Spontaneous respiratory effort, db equal unlabored respirations, breath sounds clear bilaterally, regular pattern, symmetrical chest rise and fall. Respiratory effort: spontaneous, unlabored, Respiratory pattern: regular. 16:34 Circulation: No external hemorrhage present. Regular and strong central pulse, skin db warm/dry/normal color. Disability Client is alert. Exposure/Environment: Obvious injury(ies) are noted at this time: bilateral knees, right arm A warming method has been applied: A warm blanket has been provided to the patient. Reassessment Breathing: Spontaneous respiratory effort, equal unlabored respirations, breath sounds clear bilaterally, regular pattern with symmetrical chest rise and fall. Respiratory effort Spontaneous Unlabored Breath sounds Clear Respiratory pattern Regular Chest inspection Symmetrical Circulation: No external hemorrhage noted. Regular and strong central pulse, skin warm/dry/normal color. Disability: Alert. Assessment: 16:22 Reassessment: Patient appears in no apparent distress at this time. Patient is alert, db oriented x 3, equal unlabored respirations, skin warm/dry/pink. fall this AM per family. patient fell hurt right arm, shoulder, bilateral knees. Reassessment:. General: Appears in no apparent distress. Behavior is calm, cooperative, appropriate for age, quiet. Neuro: No deficits noted. Level of Consciousness is awake, alert, obeys commands, Oriented to person, place, time, situation, Appropriate for age. EENT: No deficits noted. No signs and/or symptoms were reported regarding the EENT system. Cardiovascular: No deficits noted. Respiratory: No deficits noted. GI: No deficits noted. : No deficits noted. No signs and/or symptoms were reported regarding the genitourinary system. Derm: No deficits noted. No signs and/or symptoms reported regarding the dermatologic system. Musculoskeletal: Reports weakness in legs uses walker worse now due to bilateral knee pain from fall. 17:30 Reassessment: Patient appears in no apparent distress at this time. Patient and/or db family updated on plan of care and expected duration. Pain level reassessed. Patient is alert, oriented x 3, equal unlabored respirations, skin warm/dry/pink. Patient states feeling better. Patient states symptoms have improved. General: Appears in no apparent distress. comfortable, Behavior is calm, cooperative, appropriate for age, quiet. Vital Signs: 16:15 BP 162 / 70; Pulse 60; Resp 18; Temp 97.9(TE); Pulse Ox 97% on R/A; Pain 7/10; ld1 17:30 BP 146 / 64; Pulse 60; Resp 18; Pulse Ox 97% ; db Dorr Coma Score: 16:28 Eye Response: spontaneous(4). Verbal Response: oriented(5). Motor Response: obeys db commands(6). Total: 15. Trauma Score (Adult): 16:28 Eye Response: spontaneous(1); Verbal Response: oriented(1); Motor Response: obeys db commands(2); Systolic BP: > 89 mm Hg(4); Respiratory Rate: 10 to 29 per min(4); Sherri Score: 15; Trauma Score: 12 ED Course: 15:57 Patient arrived in ED. rg4 16:02 Waldemar Major DO is Attending Physician. ms3 16:17 Triage completed. ld1 16:17 Arm band placed on right wrist. ld1 16:22 Carla Rea, RN is Primary Nurse. db 16:28 Patient has correct armband on for positive identification. Bed in low position. Call db light in reach. Side rails up X2. 16:41 Patient maintains SpO2 saturation greater than 95% on room air. db 16:46 CT Head C Spine In Process Unspecified. EDMS 17:10 Wrist Right 3 View XRAY In Process Unspecified. EDMS 17:11 Hip Right 2 View XRAY In Process Unspecified. EDMS 17:11 Knee Left 3 View XRAY In Process Unspecified. EDMS 17:11 Knee Right 3 View XRAY In Process Unspecified. EDMS 19:43 No provider procedures requiring assistance completed. Patient did not have IV access lg3 during this emergency room visit. 19:43 Thermoregulation: warm blanket given to patient. lg3 Administered Medications: No medications were administered Medication: 18:01 VIS not applicable for this client. db Intake: 16:28 PO: 0ml; Total: 0ml. db Outcome: 18:42 Discharge ordered by MD. ms3 19:43 Discharged to home via wheelchair, with family. lg3 19:43 Condition: stable 19:43 Discharge instructions given to patient, family, Instructed on discharge instructions, follow up and referral plans. Demonstrated understanding of instructions, follow-up care. 19:44 Patient left the ED. lg3 Signatures: Dispatcher [employer] EDTammi Leger rg4 Verna Dunne, RN RN lg3 Waldemar Major DO DO ms3 Andreina Franks RN RN ld1 Carla Rea, RN RN db
[2022-01-01 19:48] VITALS: TEMP 97.9; O2SAT 97
[2022-01-01 19:49] VITALS: BP 146/64
== END 2022-01-01 19:44 | disposition home or self-care (01) ==
LOC: ER 15:52
DX: M25.531 Pain in right wrist (principal); M25.562 Pain in left knee; M25.561 Pain in right knee; M25.551 Pain in right hip; W18.30XA Fall on same level, unspecified, initial encounter; I10 Essential (primary) hypertension; E11.9 Type 2 diabetes mellitus without complications; Z79.01 Long term (current) use of anticoagulants; Z79.4 Long term (current) use of insulin; Z88.1 Allergy status to other antibiotic agents; Z88.5 Allergy status to narcotic agent; Z88.7 Allergy status to serum and vaccine; Z88.8 Allergy status to other drugs, medicaments and biological substances
CPT/HCPCS: 70450; 72125; 99284

== ENCOUNTER 2022-06-25 15:09 | Inpatient (IN) | payer OTHER ==
--- OUTSIDE RECORDS SUMMARY | 2022-06-25 15:19 | XMS REPORT | Continuity of Care Document ---
:1940 Author Organization [facility] t Address 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) 00:00: Hosp jai 00 l SIRS SIRS Disease Active [facility] (systemic (systemic 6 [facility] s inflammato inflammato 00:00: Me dical ry ry 00 Center response response syndrome) syndrome) Thrombocyt Thrombocyt Disease Active [facility] openia openia 08-06 [facility] Acute Acute Disease Active [facility] post-opera post-opera 31 Jennifer kes tive pain tive pain 00:00: [facility] saira 00 Center Cardiogeni Cardiogeni Disease Active [facility] shock c shock 08-06 [facility] 00:[facility] 00 [facility] Fluid Fluid Disease Active [facility] overload overload 31 [facility] 00:[facility] 00 [facility] Thrombocyt Thrombocyt Disease Active [facility] openia openia -31 [facility] 00:[facility] 00 [facility] Hyperglyce Hyperglyce Disease Active [address] daija daija 08-06 [facility] Center Coronary Coronary Disease Active [facility] arterioscl arterioscl 530 Jennifer kes erosis erosis 00:00: Medical 00 Center 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 2019- [facility] 4 4 5-30 [facility] 00 [facility] Bradycardi Bradycardi Disease Active [address] a a 5-30 [facility] Center Acute Acute Disease Active 2018- [facility] prerenal prerenal 5-30 [facility] azotemia azotemia 00:00: Medica l 00 Center Hyperchlor Hyperchlor Disease Active [facility] emic emic 5-30 [facility] metabolic metabolic 00:00: Medi saira acidosis acidosis 00 Center Acute Acute Disease Active [facility] blood loss blood loss 5-30 Jennifer kes anemia anemia 00:00: Medical 00 [facility] Chronotrop Chronotrop Disease Active [facility] [...] urgency 5-22 Jennifer kes 00:00: Medical 00 [facility] Carotid Carotid Disease Active [facility] stenosis, stenosis, 5-21 [facility] right right 00:00: Medical 00 [facility] CAD CAD Disease Active [facility] (coronary (coronary 5-21 [facility] artery artery 00:00: Medical disease) disease) 00 [facility] STROKE, STROKE, Diagnosis Active 2015-02-05 Memoria EMOBOLIC EMOBOLIC 12-01 16:40:00 l Active 00:00: Jun[place] 12/01/2014 00 [facility] CVA CVA Diagnosis Active 2014-12-13 Mem oria Active 11-08 16:45:00 l 11/08/2014 00:00: Michael altamirano [address] GRAZYNA GRAZYNA Diagnosis Active 2015-02-05 Memoria BILLING BILLING 11-08 16:39:00 l [id number] 00:00: [place] Active 00 11/08/2014 [facility] THYROID THYROID Disease Active Univers NODULE NODULE 2-13 ity of 00:00: [place] [id number] Medical Branch Clotting Clotting Problem Active [place] disorder disorder [...] Active U T emia emia Physici ans Multiple Multiple Problem Active [facility] thyroid thyroid Physici nodules nodules ans Vitamin D Vitamin D Problem Active UT deficiency deficiency Ph ysici disease disease ans Hypercalce Hypercalce Problem Active U T daija daija Physici ans Asthma Asthma Problem Resolve 2015-04-13 Me moria (disorder) (disorder) d 05:10:29 l Resolved Jun[place] Problem 04/13/2015 [facility], FELIZ Wild, FELIZ [place] dm dm Problem Resolve 2015-04-13 Tobi benedict (qualifier (qualifier d 05:10:29 l value) value) Junito Resolved Problem 04/13/2015 [facility], FELIZ Wild, FELIZ [place] Glaucoma Glaucoma Problem Resolve 2015-04-13 Memoria (disorder) (disorder) d 05:10:29 l Resolved [place] Problem 04/13/2015 [facility], FELIZ Wild,[facility] Hypertensi Hypertens Problem Resolve 2015-04-13 Memoria ve louise d 05:10:29 l disorder, disorder, Herm bon systemic systemic arterial arterial (disorder) (disorder) Resolved Problem 04/13/2015 [facility], FELIZ Wild, FELIZ [place] Myocardial Myocardia Problem Resolve 2015-04-13 Memoria infarction l d 05:10:29 l (disorder) infarction He rmann (disorder) Resolved Problem 04/13/2015 [facility], FELIZ Wild, FELIZ Rubi Diabetic Diabetic Problem Resolve 2015-04-13 Memoria neuropathy neuropathy d 05:10:29 l (disorder) (disorder) He rmann Resolved Problem 04/13/2015 [facility], FELIZ Wild, FELIZ [place] Transient Transient Problem Resolve 2015-04-13 Memoria ischemic ischemic d 05:10:29 l attack attack Jun[place] (disorder) (disorder) Resolved Problem 04/13/2015 [facility], FELIZ Wild, FELIZ [place] CEREBRAL CEREBRAL Diagnosis Active 2015-02-05 Memoria EMBOLISM W EMBOLISM W 16:40:00 l CI CI Active Michael n [facility] CVA CVA Diagnosis Active 2015-02-05 Mem oria Active 16:40:00 l [facility] Hypotensio Hypotensio Disease Active [facility] n due to n due to [facility] hypovolemi hypovolemi Me dical a a Center Normal Normal Disease Active [facility] anion gap anion gap Luke s metabolic metabolic Medi saira acidosis acidosis Center Allergies, Adverse Reactions, Alerts Allergy Allergy Status Severity Reaction(s) Onset Inactive Treating Comm ents Source Name Type Date Date Clinician Latex Propensi Active Other (See 2020-03 unknown Met hodi ty to Comments) 04-11 adverse 00:00: Hospita reaction 00 l s to drug Meperidi Propensi Active Rash 2020-03 Method i ne ty to 04-11 adverse 00:00: Hospita reaction 00 l s to drug Metformi Propensi Active Other (See 2020-03 unknown M ethodi n ty to Comments) 04-11 adverse 00:00: Hospita reaction 00 l s to drug Niacin Propensi Active Rash 2020-03 critical Method i ty to 04-11 adverse 00:00: Hospita reaction 00 l s to drug Quinolon Propensi Active Rash 2020-03 critical Meth rodney es ty to 04-11 adverse 00:00: Hospita reaction 00 l s to drug Sitaglip Propensi Active Rash 2020-03 Critical Meth rodney tin ty to 04-11 adverse 00:00: Hospita reaction 00 l s to drug Statins- Propensi Active GI 2020-03 Nausea Method i Hmg-Coa ty to Intolerance 04-[address] Reductas adverse 00:00: Hospita e reaction 00 l Inhibito s to rs drug Amoxicil Propensi Active Anaphylaxis 2020-03 M ethodi andrew ty to 04-11 adverse 00:00: Hospita reaction 00 l s to drug Angioten Propensi Active GI 2020-03 Nausea/vo Met hodi sin Ii ty to Intolerance 04-[address] adverse 00:00: Hospita reaction 00 l s to drug Diphth,P Propensi Active Rash 2020-03 Itching/h Met hodi ertus(Ac ty to 04-11 kari/rash st ell),Tet adverse 00:00: Hospita anus reaction 00 l s to drug Clavulan Propensi Active Rash 2020-03 Method i ic Acid ty to 04-11 st adverse 00:00: Hospita reaction 00 l s to drug Exenatid Propensi Active Rash 2020-03 critical Meth rodney e ty to 04-11 adverse 00:00: Hospita reaction 00 l s to drug Ezetimib Propensi Active Rash 2020-03 critical Meth rodney e ty to 04-11 st adverse 00:00: Hospita reaction 00 l s to drug Glimepir Propensi Active Rash 2020-03 critical Meth rodney rodríguez ty to 04-11 st adverse 00:00: Hospita reaction 00 l s to drug Hydrocod Propensi Active GI 2020-03 Nausea Method i one ty to Intolerance 04-[address] adverse 00:00: Hospita reaction 00 l s to drug TREE NUT DRUG Active Swelling Univer s INGREDI 08-16 ity of 00:00: 00 Medical Branch Tree Nut Propensi Active Swelling Daughter Un adriane ty to 08-16 reports ity of adverse 00:00: pt has [place] reaction 00 swelling Medica l s when she Branch consume peanuts and tree nuts and she wanted this documente d within the EMR. Tree Nut Drug Active Swelling Daughter [facility] Allergy 08-16 [facility] 00:[facility]: pt has [place] [id number] swelling Center when she consume peanuts and tree nuts and she wanted this documente d within the EMR. DIPHTHER DRUG Active Unknown-Cmnt Un adriane IA-TETAN 07-27 ity of [place] 00:00: [place] TOXOIDS 00 Medical PED Branch EZETIMIB DRUG Active Unknown-Cmnt Un adriane E INGREDI - ity of 00:00: 00 Medical Branch INSULIN DRUG Active Unknown-Cmnt Uni vers GLARGINE INGREDI 07-27 ity of 00:00: 00 Medical Branch METFORMI DRUG Active Unknown-Cmnt Un adriane N INGREDI 07-27 ity of 00:00: 00 Medical Branch NIACIN Drug Active Unknown-Cmnt Univ ers PREPARAT Class 5-21 ity of IONS 00:00: 00 Medical Branch PEANUT DRUG Active Swelling 2018- Univers INGREDI 5- ity of 00:00: [place] 00 Medical Branch QUINOLON Drug Active Unknown-Cmnt Un adriane ES Class 5-21 ity of 00:00: [place] 00 Medical Branch SITAGLIP DRUG Active Unknown-Cmnt Un adriane TIN INGREDI 5-21 ity of 00:00: [place] 00 Medical Branch STARCH DRUG Active Unknown-Cmnt Univ ers INGREDI 5-21 ity of 00:00: [place] Medical Branch STATINS- Drug Active Unknown-Cmnt Un adriane HMG-COA Class 5-21 ity of REDUCTAS 00:00: [place] E 00 Medical INHIBITO Branch RS TETANUS Drug Active Unknown-Cmnt Uni vers VACCINES Class 5-21 ity of AND 00:00: [place] TOXOID 00 Medical Branch ANGIOTEN DRUG Active Unknown-Cmnt Un adriane SIN INGREDI 5-21 ity of I,HUMAN 00:00: [place] 00 Medical Branch Peanut Propensi Active Swelling Daughter Univ ers ty to 5 reports ity of adverse 00:00: pt has [place] reaction 00 swelling Medica l s when she Branch consume peanuts and tree nuts and she wanted this documente d within the EMR. Quinolon Propensi Active Unknown - Uni vers es ty to See comments 5-21 ity of adverse 00:00: [place] reaction 00 Medical s Branch Statins- Propensi Active Unknown - Uni vers Hmg-Coa ty to See comments 5-21 ity of Reductas adverse 00:00: [place] e reaction 00 Medical Inhibito s Branch rs Tetanus Propensi Active Unknown - Univ ers Vaccines ty to See comments 5-21 it y of And adverse 00:00: [place] Toxoid reaction 00 Medical s Branch CAFFEINE DRUG Active Unknown-Cmnt Un adriane INGREDI 5-21 ity of 00:00: [place] 00 Medical Branch CLAVULAN DRUG Active Unknown-Cmnt Un adriane IC ACID INGREDI 5-21 ity of 00:00: [place] 00 Medical Branch Hydrocod Propensi Active 2018- [facility] one-Acet ty to 5 [facility] aminophe adverse 00:00: Medical n reaction 00 Center s Insulin Propensi Active [facility] Glargine ty to 07-27 [facility] adverse 00:00: Medical reaction 00 Center s Meperidi Propensi Active [facility] ne ty to 5-21 [facility] adverse 00:00: Medical reaction 00 Center s Metformi Propensi Active [facility] n ty to 5-21 [facility] adverse 00:00: Medical reaction 00 Center s Niacin Propensi Active 2019-[address] Preparat ty to 5-21 [facility] ions adverse 00:00: Medical reaction 00 Center s Peanut Drug Active Swelling 2019- Daughter [facility] Allergy 5-21 reports [facility] 00:00: pt has Medical 00 [...] reaction 00 Center s Tetanus Propensi Active 2018- [facility] Vaccines ty to 5-21 [facility] And adverse 00:00: Medical Toxoid reaction 00 Center s Angioten Propensi Active 2018- [facility] sin ty to 5-21 [facility] I,Human adverse 00:00: Medical reaction 00 Center s Caffeine Propensi Active 2018- [facility] ty to 5-21 [facility] adverse 00:00: Medical reaction 00 Center s Clavulan Propensi Active 2018- [facility] ic Acid ty to 5-21 [facility] adverse 00:00: Medical reaction 00 Center s Diphther Propensi Active 2018- [facility] ia-Tetan ty to 5-21 [facility] us adverse 00:00: Medical Toxoids reaction 00 Center Ped s Exenatid Propensi Active 2019-[address] e ty to 5-21 [facility] adverse 00:00: Medical reaction 00 Center s Ezetimib Propensi Active 2018- [facility] e ty to 5-21 [facility] adverse 00:00: Medical reaction 00 Center s Glimepir Propensi Active 2019-[address] rodríguez ty to 5-21 [facility] adverse 00:00: Medical reaction 00 Center s GLIMEPIR DRUG Active Unknown-Cmnt 2008- Un adriane RODRÍGUEZ INGREDI 1-13 ity of 00:00: [place] 00 Medical Branch HYDROCOD DRUG Active Unknown-Cmnt 2008-0 Un adriane ONE-ACET 1-13 ity of AMINOPHE 00:00: [place] N 00 Medical Branch INSULIN DRUG Active Unknown-Cmnt 2008-0 Uni vers LISPRO INGREDI 1-13 ity of 00:00: [place] 00 Medical Branch MEPERIDI DRUG Active Unknown-Cmnt 2008-0 Un adriane NE HCL INGREDI 1-13 ity of 00:00: [place] 00 Medical Branch METFORMI DRUG Active Unknown-Cmnt 2008- Un adriane N HCL INGREDI 1-13 ity of 00:00: [place] 00 Medical Branch NIACIN DRUG Active Hives 2008- Univers INGREDI 1-13 ity of 00:00: [place] 00 Medical Branch AMOXICIL DRUG Active Unknown-Cmnt 2008-0 Un adriane ANDREW INGREDI 1-13 ity of 00:00: [place] 00 Medical Branch PIOGLITA DRUG Active Unknown-Cmnt 2008-0 Un adriane ZONE INGREDI 1-13 ity of 00:00: [place] 00 Medical Branch POTASSIU DRUG Active Unknown-Cmnt 2008-0 Un adriane M INGREDI 1-13 ity of 00:00: [place] 00 Medical Branch ROSUVAST DRUG Active Unknown-Cmnt 2008-0 Un adriane ATIN INGREDI 1-13 ity of CALCIUM 00:00: [place] 00 Medical Branch SIMVASTA DRUG Active Unknown-Cmnt 2008-0 Un adriane TIN INGREDI 1-13 ity of 00:00: [place] 00 Medical Branch Amoxicil Propensi Active Unknown - 2008-0 Uni vers andrew ty to See comments 1-13 ity of adverse 00:00: [place] reaction 00 Medical s Branch ASPIRIN DRUG Active Unknown-Cmnt 2008- Uni vers INGREDI 1-13 ity of 00:00: [place] 00 Medical Branch Aspirin Propensi Active Unknown - 2008-0 Univ ers ty to See comments 1-13 ity of adverse 00:00: [place] reaction 00 Medical s Branch Atorvast Propensi Active Unknown - 2008-0 Weakness U nivers atin ty to See comments 1-13 ity of adverse 00:00: [place] reaction 00 Medical s Branch Exenatid Propensi Active Unknown - 2008- Leg pain U nivers e ty to See comments 1-13 / ity of adverse 00:00: Weakness [place] reaction 00 Medical s Branch Diphenhy Propensi Active Unknown - 2008- Uni vers dramine ty to See comments 1-13 ity of Hcl adverse 00:00: [place] reaction 00 Medical s Branch Glimepir Propensi Active Unknown - 2008- Leg pain U nivers rodríguez ty to See comments 1-13 / ity of adverse 00:00: weakness [place] reaction 00 Medical s Branch Hydrocod Propensi Active Unknown - Uni vers one-Acet ty to See comments 1-13 it y of aminophe adverse 00:00: [place] n reaction 00 Medical s Branch ATORVAST DRUG Active Unknown-Cmnt Un adriane ATIN INGREDI [...] s Branch Pioglita Propensi Active Unknown - 2008- Leg pain/ Univers zone ty to See [...] of HCL 00:00: [place] 00 Medical Branch Lipitor drug Active [facility] allergy Physici ans Meperidi drug Active UT ne HCl allergy Physici TABS ans MetFORMI drug Active UT N HCl allergy Physici TABS ans Niaspan drug Active UT TBCR allergy Physici ans Statins drug Active UT allergy Physici ans TETANUS drug Active [facility] allergy Physici ans Zetia drug Active [facility] allergy Physici ans Amaryl drug Active [facility] allergy Physici ans [...] Levaquin drug Active [facility] allergy Physici ans Demerol Demerol Active Memoria HCl HCl l [place] glimepir glimepir Active Memori a rodríguez rodríguez l [place] HYDROcod HYDROcod Active Memori a one-PPA one-PPA l [place] Januvia Januvia Active Memoria l [place] Lantus Lantus Active Memoria l [place] Levaquin Levaquin Active Memori a l [place] metFORMI metFORMI Active Memori a N N l [place] Niaspan Niaspan Active Memoria ER ER l [place] statins statins Active Memoria l [place] tetanus tetanus Active Memoria immune immune l globulin globulin Michael n Zetia Zetia Active Memoria l [place] amoxicil amoxicil Active Memori a andrew andrew l [place] angioten angioten Active Memori a sin sin l converti converti Michael n ng ng enzyme enzyme inhibito inhibito rs rs antihist antihist Active Memori a amines amines l [place] Byetta Byetta Active Memoria [facility] l d Pen jai Wild Family History Family Member Diagnosis Comments Start Date Stop Date Source Father Family history of coronary [facility] arteriosclerosis Social History Social Habit Start Date Stop Date Quantity Comments Source Exposure to Not sure University SARS-CoV-2 (event) [facility] History SDOH [facility] Alcohol Comment Medical C enter History SDOH [facility] Alcohol Std Drinks Medica l Center History SDOH [facility] Alcohol Binge Medical Darren ter History of tobacco Current smoker [facility] use Tobacco use and 2021-05-20 2021-05-20 Never used Universit y of exposure 00:00:00 00:00:00 [facility] Alcohol intake 2021-02-12 2021-02-12 [facility] 00:00:00 00:00:00 History SDOH 2018-08-05 2018-08-[address] [facility] Alcohol Frequency 00:00:00 00:00:00 [facility] Social History 2014-11-09 2014-11-09 [facility] 03:26:32 03:26:32 Sex [birth year] [facility] 00:00:00 00:00:00 Smoking Status Start Date Stop Date Source Unknown if ever smoked Universit y of [facility] Never smoker [facility] Ex-smoker 2021-02-08 00:00:00 2021-02-08 00:00:00 [facility] Medications Ordered Filled Start Stop Current Ordering Indication Dosage Frequency Signature Comments Components Source Medication Medication Date Date Medication? Clinician (SIG) Name Name neomycin-po Yes PRN, Univer s lymyxin-dex 05-29 Starting ity of amethasone 14:21: on Thu (MAXITROL) 05/29/21 at Med ical 3.5 0921, Branch mg/g-10,000 Until unit/g-0.1 Discontinu % ed, ophthalmic Routine, ointment Intra-op neomycin-po 2021- PRN, Unive rs lymyxin-dex 05-29 Starting ity of amethasone 14:21: 17:[address] [facility] (MAXITROL) 00 :06 05/29/21 at Med ical 3.5 0921, Branch mg/g-10,000 Until Wed unit/g-0.1 05/29/21 at % 1200, ophthalmic Routine, ointment Intra-op dexamethaso Yes PRN, Univer s ne 05-29 Starting ity of (DECADRON 14:20: on Thu [place] PHOSPHATE) 00 05/29/21 at Med ical injection 0920, Branch Until Discontinu ed, Routine, Intra-op dexamethaso 2021- No PRN, Unive rs ne 05-29 Starting ity of (DECADRON 14:20: 17:00 on Thu [place] PHOSPHATE) 00 :06 05/29/21 at Med ical injection 0920, Branch Until Thu05/29/21 at 1200, Routine, Intra-op carbachoL Yes PRN, Univers (MIOSTAT) 05-29 Starting ity of 0.01 % 14:19: on Thu intraocular 00 05/29/21 at [place] dical injection 0919, Branch Until Discontinu ed, Routine, Intra-op carbachoL 2021- No PRN, Univers (MIOSTAT) 05-29 Starting ity o f 0.01 % 14:19: 17:00 on Thu [place] intraocular 00 :06 05/29/21 at [place] dical injection 0919, Branch Until Thu05/29/21 at 1200, Routine, Intra-op DUOVISC Yes PRN, Univers (DUOVISC 05-29 Starting ity of VISCO 14:07: on Thu ELASTIC) 3 00 05/29/21 at [facility] ica %-4 %(0.5 0907, Branch mL) 1 % Until (0.55 mL) Discontinu intraocular ed, injection Routine, Intra-op EPINEPHrine Yes PRN, Univer s 1:1,000 (1 05-29 Starting ity o f mg/mL) 14:07: on Thu (ADRENALIN) 05/29/21 at [place] dical injection 0907, Branch Until Discontinu ed, Routine, Intra-op balanced Yes PRN, Univers salt irrig 05-29 Starting ity o f soln comb1 14:07: on Thu (BSS PLUS) 00 05/29/21 at [facility] ical ophthalmic 0907, Branch solution Until 500 mL bag Discontinu ed, Routine, Intra-op DUOVISC 2021- No PRN, Univers (DUOVISC 05-29 Starting ity of VISCO 14:07: 17:00 on Thu [place] ELASTIC) 3 00 :06 05/29/21 at Med ical %-4 %(0.5 0907, Branch mL) 1 % Until Thu (0.55 mL) 05/29/21 at intraocular 1200, injection Routine, Intra-op EPINEPHrine 2021- No PRN, Unive rs 1:1,000 (1 05-29 Starting ity of mg/mL) 14:07: 17:00 on Thu (ADRENALIN) 00 :06 05/29/21 at [place] dical injection 0907, Branch Until Thu05/29/21 at 1200, Routine, Intra-op balanced 2021- No PRN, Univers salt irrig 05-29 Starting ity of soln comb1 14:07: 17:00 on Thu [place] (BSS PLUS) 00 :06 05/29/21 at Med ical ophthalmic 0907, Branch solution Until Thu 500 mL bag 05/29/21 at 1200, Routine, Intra-op water for Yes PRN, Univers irrigation 05-29 Starting ity o f irrigation 14:01: on Thu [place] solution 00 05/29/21 at Medic al 0901, Branch Until Discontinu ed, Routine, Intra-op water for 2021- No PRN, Univers irrigation 05-29 Starting ity of irrigation 14:01: 17:00 on Thu [place] solution 00 :06 05/29/21 at Medic al 0901, Branch Until Thu05/29/21 at 1200, Routine, Intra-op Hyaluronida Yes PRN, Univer s se, Human 05-29 Starting ity of Recomb. 13:59: on Thu (HYLENEX) 00 05/29/21 at Medi saira injection 0859, Branch Until Discontinu ed, Routine, Intra-op eye block Yes PRN, Univers syringe 11 05-29 Starting ity o f mL 13:59: on Thu [place] 00 05/29/21 at Medical 0859, Branch Until Discontinu ed, Intra-op Hyaluronida 2021- No PRN, Unive rs se, Human 3-23 03-23 Starting ity o f Recomb. 13:59: 17:00 on Thu [place] (HYLENEX) 00 :06 05/29/21 at Medi saira injection 0859, Branch Until Thu05/29/21 at 1200, Routine, Intra-op eye block 2021- No PRN, Univers syringe 11 05-29 Starting ity of mL 13:59: 17:00 on Thu [place] 00 :06 05/29/21 at Medical 0859, Branch Until Thu05/29/21 at 1200, Intra-op lactated 2021- No [facility] 05[facility]23 mL/hr, ity of [...] mL lactated 2021- No 1000mL [facility] 05-29- mL/hr, ity of infusion 12:15: 12:33 1,000 [...] by mouth. ity of tablet 09:55: [address] Branch hydroxyurea Yes Take by Uni vers 500 mg 3-23 mouth ity of capsule 09:55: [address] meclizine Yes 25mg Take 25 mg Un adriane 25 mg 3-23 by mouth. ity of tablet 09:55: [address] Branch magnesium Yes 400mg Take 400 Uni vers oxide 400 3-23 mg by ity of mg (241.3 09:55: mouth. [place] mg [address] [place] [address] magnesium) Branch tablet Cholecalcif Yes 5000U Take 5,000 Univers rosalie, 3-23 Units by ity of Vitamin D3, 09:55: [place]. [place] 5,000 unit 02 Medical tablet Branch furosemide Yes 40mg Take 40 mg U nivers 40 mg 3-23 by mouth ity of tablet 09:55: daily. [address] traMADoL 50 Yes 25mg Take 25 mg Univers mg tablet 3-23 by mouth. ity o f 09:55: [address] hydrOXYzine Yes 25mg Take 25 mg [...] 3-23 by mouth. ity of tablet 09:55: [address] hydroxyurea Yes Take by Uni vers 500 mg 3-23 mouth ity of capsule 09:55: [address] Branch meclizine Yes 25mg Take 25 mg Un adriane 25 mg 3-23 by mouth. ity of tablet 09:55: [address] Branch magnesium Yes 400mg Take 400 Uni vers oxide 400 3-23 mg by ity of mg (241.3 09:55: mouth. [place] mg 02 Medical magnesium) Branch tablet Cholecalcif Yes 5000U Take 5,000 Univers rosalie, 3-23 Units by ity of Vitamin D3, 09:55: mouth. [place] 5,000 unit 02 Medical tablet Branch furosemide Yes 40mg Take 40 mg U nivers 40 mg 3-23 by mouth ity of tablet 09:55: daily. [address] Branch traMADoL 50 0 Yes 25mg Take 25 mg Univers mg tablet 3-23 by mouth. ity o f 09:55: [address] hydrOXYzine Yes 25mg Take 25 mg Univers (VISTARIL) 3-23 by mouth 3 ity of 25 mg 09:55: (three) [place] capsule 02 times Medical daily as Branch needed for Itching. insulin Yes 25U inject 25 Unive rs detemir 3-23 Units ity of U-100 09:55: under the [place] (LEVEMIR 02 skin every Medic al U-100 morning. Branch INSULIN) 100 unit/mL injection insulin Yes 5U inject 5 Univer s detemir 3-23 Units ity of U-100 100 09:55: under the [facility] as unit/mL 02 skin every Medica l injection evening. Branch insulin Yes inject Univers aspart 3-23 under the ity of U-100 09:55: skin 3 [place] (NOVOLOG 02 (three) Medical FLEXPEN times Branch U-100 daily INSULIN) before 100 unit/mL meals. (3 mL) Sliding injection Scale clopidogrel Yes 75mg Take 75 mg Univers 75 mg 3-23 by mouth. ity of tablet 09:55: [address] Branch hydroxyurea 0 Yes Take by Uni vers 500 mg 3-23 mouth ity of capsule 09:55: [address] meclizine Yes 25mg Take 25 mg Un adriane 25 mg 3-23 by mouth. ity of tablet 09:55: [place] [address] Medical Branch magnesium Yes 400mg Take 400 Uni vers oxide 400 3-23 mg by ity of mg (241.3 09:55: mouth. [place] mg 02 Medical magnesium) Branch tablet Cholecalcif Yes 5000U Take 5,000 Univers rosalie, 3-23 Units by ity of Vitamin D3, 09:55: [place]. [place] 5,000 unit 02 Medical tablet Branch furosemide Yes 40mg Take 40 mg U nivers 40 mg 3-23 by mouth ity of tablet 09:55: daily. [place] [address] Medical Branch traMADoL 50 Yes 25mg Take 25 mg Univers mg tablet 3-23 by mouth. ity o f 09:55: [address] Branch hydrOXYzine Yes 25mg Take 25 mg Univers [...] ity of U-100 100 09:55: under the [facility] as unit/mL 02 skin every Medica l [...] 58 :00 skin. Medical injection Branch insulin 0 2021- No 15U inject 15 Univ ers aspart 3-23 03-23 Units ity of U-100 100 09:25: [place] unit/mL (3 58 :00 skin. Medical mL) Branch injection insulin 2021- No 25U inject 25 Univ ers detemir 3-29 05-23 Units ity of U-100 100 09:25: 00:00 [place] unit/mL 58 :00 skin. Medical injection Branch insulin 2021- No 15U inject 15 Univ ers aspart 05-29-23 Units ity of U-100 100 09:25: 00:00 [...] A DAY Branch IN THE MORNING. rOPINIRole 2021-0 Yes TAKE ONE Uni vers [...] by mouth ity of tablet 00:00: daily. [address] atorvastati 2-0 Yes 40mg Take 40 mg Univers n 40 mg 1-17 by mouth ity of tablet 00:00: daily. [address] atorvastati 2-0 Yes 40mg Take 40 mg Univers n 40 mg 1-17 by mouth ity of tablet 00:00: daily. [address] pantoprazol Yes TAKE ONE Un adriane e 40 mg EC 1-03 (1) ity of tablet 00:00: TABLET(S) [place] 00 BY MOUTH Medical ONCE A DAY Branch 1 HOUR BEFORE FOOD IN THE MORNING. pantoprazol Yes TAKE ONE Un adriane e 40 mg EC -03 (1) ity of tablet 00:00: TABLET(S) 00 BY MOUTH Medical ONCE A DAY Branch 1 HOUR BEFORE FOOD IN THE MORNING. pantoprazol Yes TAKE ONE Un adriane e 40 mg EC -03 (1) ity of tablet 00:00: TABLET(S) BY MOUTH Medical ONCE A DAY Branch 1 HOUR BEFORE FOOD IN THE MORNING. spironolact 2020-03 Yes 25mg Take 25 mg Univers one 25 mg 2-28 by mouth ity of tablet 00:00: daily. [address] spironolact 2020-03 Yes 25mg Take 25 mg Univers one 25 mg 2-28 by mouth ity of tablet 00:00: daily. [address] spironolact 2020-03 Yes 25mg Take 25 mg Univers one 25 mg 2-28 by mouth ity of tablet 00:00: daily. [address] atorvastati 2020-03 Yes 40mg QD Take 40 mg Methodi n (LIPITOR) 2-[address] 40 mg 15:54: daily. Hospita tablet 02 l furosemide 2020-03 Yes 40mg QD Take 40 mg M ethodi (LASIX) 40 2-[address] mg tablet 15:54: daily. Hospit a 02 l pantoprazol 2020-03 Yes 40mg QD Take 40 mg Methodi e 2-[address] (PROTONIX) 15:54: daily. Hospi ta 40 MG EC 02 l tablet aspirin 2020-03 Yes 81mg QD Take 81 mg Meth rodney (ECOTRIN) 2-[address] 81 MG 15:54: daily. Hospita enteric 02 l coated tablet spironolact 2020-03 Yes 100mg QD Take 100 M ethodi one 2-[address] (ALDACTONE) 15:54: mouth Hospi ta 100 MG 02 daily. l tablet hydroxyurea 2020-03 Yes QD Take by Met hodi (HYDREA) 2-[address] 500 mg 15:54: daily. Hospita capsule 02 l pregabalin 2020-03 Yes 75mg Q.5D Take 75 mg M ethodi (LYRICA) 75 2-[address] MG capsule 15:54: (two) Hospit a 02 times a l day. magnesium 2020-03 Yes 400mg Q.5D Take 400 Met hodi oxide 2-[address] (MAG-OX) 15:54: mouth 2 Hospit a 400 mg 02 (two) l (241.3 mg times a magnesium) day. tablet meclizine 2020-03 Yes 25mg [id number] Take 25 mg Methodi (ANTIVERT) 2-[id number] mouth [address] 25 mg 15:54: 3D (three) Hospita tablet 02 times a l day as needed for dizziness. rOPINIRole 2020-03 Yes .5mg QD Take 0.5 Met hodi (REQUIP) 2-[address] 0.5 MG 15:54: mouth Hospita tablet 02 daily. l hydrOXYzine 2020-03 Yes 25mg Q.5D Take 25 mg Methodi pamoate 2-[address] (VISTARIL) 15:54: (two) Hospit a 25 mg/5 ml 02 times a l suspension day. oral suspension timolol 2020-03 Yes 1[drp] Q.5D Administer Me thodi (TIMOPTIC-X 2-[address] E) 0.5 % 15:54: both eyes Hosp jai ophthalmic 02 2 (two) l gel-forming times a day. cholecalcif 2020-03 Yes 5000U QD Take 5,000 Methodi rosalie, 2-[address] vitamin D3, 15:54: mouth Hospi ta 50 mcg 02 daily. l (2,000 unit) capsule capsule insulin 2020-03 Yes 25U QD Inject 25 Metho di detemir 2-[address] U-100 15:54: under the Hospita (LEVEMIR) 02 skin every l 100 unit/mL morning. injection insulin 2020-03 Yes 5U QD Inject 5 Method i detemir 2-[address] U-100 15:54: under the Hospita (LEVEMIR) 02 skin every l 100 unit/mL evening. injection insulin 2021-1 Yes Q.5D Inject Methodi ASPART 2-[address] (NovoLOG) 15:54: skin 2 Hospit a 100 unit/mL 02 (two) l injection times a day with meals. Sliding scale-100- 150=0 [id number] 00=5 -4 50=20 [id number] 00=25 units>301= 30 units apixaban 5 2020-03 Yes 5mg Take 5 [...] ity o f 00:00: Medical Branch apixaban 2020-03 Yes 5mg Q.5D Take 1 Methodi (ELIQUIS) 5 2-05 tablet (5 st mg tablet 00:00: mg total) Hos darshana 00 by mouth 2 l (two) times a day. Cholecalcif Yes 5000U Take 5,000 Univers rosalie, 7-15 Units by ity of Vitamin D3, 14:25: [place] 01 Medical tablet Branch insulin Yes 15U inject 15 Unive rs aspart 7-15 Units ity of U-100 100 14:25: under the [place] unit/mL (3 01 skin. Medical mL) Branch injection magnesium Yes 400mg Take 400 Uni vers oxide 400 7-15 mg by ity of mg (241.3 14:25: mouth. [place] mg Medical magnesium) Branch tablet Cholecalcif Yes 5000U Take 5,000 Univers rosalie, 7-15 Units by ity of Vitamin D3, 14:25: [place]. [place] 5[place]000 unit 01 Medical tablet Branch insulin Yes 15U inject 15 Unive rs aspart 7-15 Units ity of U-100 100 14:25: under the [place] unit/mL (3 01 skin. Medical mL) Branch injection magnesium Yes 400mg Take 400 Uni vers oxide 400 7-15 mg by ity of mg (241.3 14:25: mouth. [place] mg Medical magnesium) Branch tablet clopidogrel Yes [...] 45 times Center daily as needed. rOPINIRole 20190 Yes .5mg QD Take 0.[address] [facility] [address] (REQUIP) 6-19 mg by [facility] 0.5 MG 10:06: mouth Medical tablet 45 daily. Center insulin 20190 Yes 25U Inject 25 [facility] detemir 6-19 [facility] U-100 10:06: subcutaneo Medica l (LEVEMIR) 45 usly daily Cent er 100 unit/mL with injection breakfast. insulin 0 Yes 15U Inject 15 [facility] aspart 6-19 Units [facility] U-100 10:06: subcutaneo Medica l (NOVOLOG) 45 usly 3 Center 100 unit/mL (three) (3 mL) InPn times daily before meals. cholecalcif 20190 Yes 5000U QD Take 5,[address] [...] Medica l 45 times Center daily. meclizine 20190 Yes 25mg Take 25 mg CH I [...] Center tablet aspirin 81 2019-0 Yes 81mg Take 81 mg U nivers mg EC 6-11 by mouth. ity of tablet 00:00: [address] aspirin 81 2019-0 Yes 81mg Take 81 mg U nivers mg EC 6-11 by mouth. ity of tablet 00:00: [address] aspirin 81 2019-0 Yes 81mg Take 81 mg U nivers mg EC 6-11 by mouth. ity of tablet 00:00: [place] 00 Medical Branch aspirin 81 2018-0 Yes 81mg Take 81 mg U nivers mg EC 6-11 by mouth. ity of tablet 00:00: [place] [facility] aspirin 81 2019-0 Yes 81mg Take 81 mg U nivers mg EC 6-11 by mouth. ity of tablet 00:00: [place] [facility] Branch aspirin 81 2019-0 Yes 81mg QD Take 1 [facility] 6-11 tablet (81 [facility] tablet 00:00: mg total) Medica l 00 by mouth Center daily. aspirin 81 2018-0 Yes 81mg QD Take 1 [facility] MG EC 6-11 tablet (81 [facility] tablet 00:00: mg total) Medica l 00 by mouth Center daily. aspirin 81 2018-0 Yes 81mg QD Take 1 [facility] MG EC 6-11 tablet (81 [facility] tablet 00:00: mg total) Medica l 00 by mouth Center daily. carvedilol Yes 3.125mg Q.5D Take [address] (COREG) 6-10 tablet [facility] 3.125 MG 00:00: (3.125 mg Medi saira tablet 00 total) by Center mouth 2 (two) times daily. carvedilol Yes 3.125mg Q.5D Take [address] (COREG) 6-10 tablet [facility] 3.125 MG 00:00: (3.125 mg Medi [place] tablet 00 total) by Center mouth 2 (two) times daily. carvedilol Yes 3.125mg Q.5D Take 1 [...] Solution s Solution Pen-injecto Pen-injecto r r Tozuri Sullivan Yes CITLALI 30 QD INJECT 30 U T SoloStar SoloStar 11-12 SENDOS UNIT DAILY Physici 300 UNIT/ML 300 UNIT/ML 00:00: M.D. ans Subcutaneou Subcutaneou 00 s Solution s Solution Pen-injecto Pen-injecto r r OneTouch OneTouch Yes CITLALI uses 4 UT Delica Delica 6-27 SENDOS daily Physici Lancets 33G Lancets 33G 00:00: M.D. ans 00 OneTouch OneTouch Yes CITLALI Q0.25D TEST 4 UT Ultra Blue Ultra Blue 6-27 SENDOS TIMES Physici In Vitro In Vitro [...] 00 MaxEPA No 2 gm, 2 Memoria 9-04 cap, l 16:00: Route: PO, [place] 00 Drug form: CAP, Q12H, Start date: 11/10/14 11:00:00, Duration: 30 day, Stop date: 12/10/14 9:00:00 MaxEPA No 2 gm, 2 Memoria 9-04 cap, l 16:00: Route: PO, [place] 00 Drug form: CAP, Q12H, Start date: 11/10/14 11:00:00, Duration: 30 day, Stop date: 12/10/14 9:00:00 Aspirin 325 Yes 325 mg = 1 Memoria MG Oral 9-04 tab, PO, l Tablet 15:34: Daily, # [place] 00 30 tab, 0 Refill(s) omega-3 Yes 2 gm = 2 Memori a polyunsatur 9-04 cap, PO, l ated fatty 15:34: Q12H, # 60 H ermann acids 1000 00 cap, 0 mg oral Refill(s) capsule Aspirin 325 Yes 325 mg = 1 Memoria MG Oral 9-04 tab, PO, l Tablet 15:34: Daily, # [place] 00 30 tab, 0 Refill(s) omega-3 Yes 2 gm = 2 Memori a polyunsatur 9-04 cap, PO, l ated fatty 15:34: Q12H, # 60 H ermann acids 1000 00 cap, 0 mg oral Refill(s) capsule Crozier-3 2014-0 No 2,000 mg, Memor ia Acid [...] Duration: 30 day, Stop date: 12/09/14 9:00:00 Crozier-3 2014-0 No 2,000 mg, Memor ia Acid Ethyl 9-04 2 cap, l Esters 14:00: Route: PO, Lidya nn (JAIL) 1000 00 Dosing MG Oral Weight Capsule 105.455, [Lovaza] kg, BID, Start date: 11/10/14 9:00:00, Duration: 30 day, Stop date: 12/09/14 17:00:00 Aspirin 2015-0 No 325 mg, Memoria 9-04 Route: PO, l 14:00: Drug form: [place] 00 TAB, Daily, Dosing Weight 105.455, kg, Start date: 11/10/14 9:00:00, Duration: 30 day, Stop date: 12/09/14 9:00:00 heparin 2014-0 No 5,000 Memoria 9-04 unit, l 05:00: Route: [place] 00 SUB-Q, Q8H, Dosing Weight 105.455, kg, Start date: 11/10/14 0:00:00, Duration: 30 day, Stop date: 12/09/14 16:00:00 heparin 2015-0 No 5,000 Memoria 9-04 unit, l 05:00: Route: [place] 00 SUB-Q, Q8H, Dosing Weight 105.455, kg, Start date: 11/10/14 0:00:00, Duration: 30 day, Stop date: 12/09/14 16:00:00 Levemir 2015-0 No Notes: Memoria 9-04 Same as l 03:19: Levemir Do [place] 00 not hold insulin without contacting prescriber "single patient use only" Levemir No Notes: Memoria 9 Same as l 03:19: Levemir Do [place] [...] 11-10 Route: l MG/ML / 02:00: Each [place] brinzolamid 00 Affected e 10 MG/ML Eye, Ophthalmic Dosing Suspension Weight 105.455, kg, TID, Start date: 11/09/14 21:00:00, Duration: 30 day, Stop date: 12/09/14 17:00:00 Brimonidine No 1 drp, Tobi benedict tartrate 2 11-10 Route: l MG/ML / 02:00: Each [place] brinzolamid 00 Affected e 10 MG/ML Eye, Ophthalmic Dosing Suspension Weight 105.455, kg, TID, Start date: 11/09/14 21:00:00, Duration: 30 day, Stop date: 12/09/14 17:00:00 Brimonidine Yes 1 drp, Tobi benedict tartrate 2 11-09 OPTH, TID, l MG/ML / 14:21: # 8 mL, 3 Lidya nn brinzolamid 00 Refill(s) e 10 MG/ML Ophthalmic Suspension [Simbrinza] Brimonidine Yes 1 drp, Tobi benedict tartrate 2 - OPTH, TID, l MG/ML / 14:21: # 8 mL, 3 Lidya nn brinzolamid 00 Refill(s) e 10 MG/ML Ophthalmic Suspension [Simbrinza] INV No 75 mg, 1 Memoria Clopidogrel 11-09 tab, l 75mg/placeb 14:00: Route: PO, [place] o tablet 00 Drug form: Maintenance TAB, Dose Daily, Start date: 11/09/14 9:00:00, Duration: 89 day, Stop date: 02/05/15 9:00:00 Aspirin 325 No Notes: Tobi benedict MG Oral 11-09 Take with l Tablet 14:00: food. INV No 75 mg, 1 Memoria Clopidogrel 11-09 tab, l 75mg/placeb 14:00: Route: PO, [place] o tablet 00 Drug form: Maintenance TAB, [...] Syringe 11-09 25 mL, l 05:11: Route: [place] IVP, Drug Form: INJ, Dosing Weight 105.455, kg, PRN, PRN Blood Glucose Results, Start date: 11/09/14 0:11:00, Duration: 30 day, Stop date: 12/09/14 0:10:00 Glucagon No 1 mg, Memoria 11-09 Route: IM, l 05:11: Drug form: [place] 00 PDR/INJ, PRN, Dosing Weight 105.455, kg, PRN Blood Glucose Results, Start date: 11/09/14 0:11:00, Duration: 30 day, Stop date: 12/09/14 0:10:00 Insulin, No Notes: Memoria Aspart, 11-09 Roll in l Human 05:11: palms of [place] 00 hands gently; Do not shake vigorously . (Same as: NovoLOG) "single patient use only" Stable for 28 days at room temperatur e. Expires in days from ____Date Dextrose No 12.5 gm, Memor ia 50% Syringe 11-09 25 mL, l 05:11: Route: [place] 00 IVP, Drug Form: INJ, Dosing Weight 105.455, kg, PRN, PRN Blood Glucose Results, Start date: 11/09/14 0:11:00, Duration: 30 day, Stop date: 12/09/14 0:10:00 Glucagon No 1 mg, Memoria 11-09 Route: IM, l 05:11: Drug form: [place] 00 PDR/INJ, PRN, Dosing Weight 105.455, kg, PRN Blood Glucose Results, Start date: 11/09/14 0:11:00, Duration: 30 day, Stop date: 12/09/14 0:10:00 Levemir No Notes: Memoria 11-09 Same as l 02:00: Le[place] Do not hold insulin without contacting prescriber "single patient use only" Levemir No Notes: Memoria 11-09 Same as l 02:00: Levemir Do [place] 00 not hold insulin without contacting prescriber "single patient use only" Insulin, No Notes: Memoria Aspart, 11-09 Roll in l Human 01:24: palms of [place] 00 hands gently; Do not shake vigorously . (Same as: NovoLOG) "single patient use only" Stable for 28 days at room temperatur e. Expires in days from ____Date Dextrose 2014- No 25 gm, 50 Tobi benedict 50% Syringe 11-09 mL, Route: l 01:24: IVP, Drug Form: INJ, kg, PRN, PRN Blood Glucose Results, Start date: 11/08/14 20:24:00, Duration: 30 day, Stop date: 12/08/14 20:23:00 Glucagon No 1 mg, Memoria 11-09 Route: IM, l 01:24: Drug form: [place] 00 PDR/INJ, PRN, kg, PRN Blood Glucose Results, Start date: 11/08/14 20:24:00, Duration: 30 day, Stop date: 12/08/14 20:23:00 Insulin, 2014-0 No Notes: Memoria Aspart, 11-09 Roll in l Human 01:24: palms of [place] 00 hands gently; Do not shake vigorously . (Same as: NovoLOG) "single patient use only" Stable for 28 days at room temperatur e. Expires in days from ____Date Dextrose No 25 gm, 50 Tobi benedict 50% Syringe 11-09 mL, Route: l 01:24: IVP, Drug Form: INJ, kg, PRN, PRN Blood Glucose Results, Start date: 11/08/14 20:24:00, Duration: 30 day, Stop date: 12/08/14 20:23:00 Glucagon No 1 mg, Memoria 11-09 Route: IM, l 01:24: Drug form: [place] 00 PDR/INJ, PRN, kg, PRN Blood Glucose Results, Start date: 11/08/14 20:24:00, Duration: 30 day, Stop date: 12/08/14 20:23:00 INV 2014-0 No 600 mg, 8 Memoria Clopidogrel 11-09 tab, l 75mg/placeb 01:00: Route: PO, [place] o tablet 00 Drug form: Loading TAB, ONCE, Dose Start date: 11/08/14 20:00:00, Stop date: 11/08/14 20:00:00 INV 2015-0 No 600 mg, 8 Memoria Clopidogrel 11-09 tab, l 75mg/placeb 01:00: Route: PO, [place] o tablet 00 Drug form: Loading TAB, ONCE, Dose Start date: 11/08/14 20:00:00, Stop date: 11/08/14 20:00:00 Ativan No Notes: Memoria 11-09 (Same as: l 00:49: Ativan) [place] Ativan No Notes: Memoria 11-09 (Same as: l 00:49: Ativan) [place] 00 Ondansetron No Notes: Tobi benedict 11-09 (Same as: l 00:37: Zofran) [place] 00 MEDICATION WASTE Product Size: 4 mg Product Wasted: ___ mg Acetaminoph No Notes: Max Memoria en 11-09 acetaminop l 00:37: hen 4000 [place] 00 mg/day (4 gm/day). (Same as: Tylenol Extra Strength) Ondansetron No Notes: Tobi benedict 11-09 (Same as: l 00:37: Zofran) [place] 00 MEDICATION WASTE Product Size: 4 mg Product Wasted: ___ mg Acetaminoph No Notes: Max Memoria en 11-09 acetaminop l 00:37: hen 4000 [place] 00 mg/day (4 gm/day). (Same as: Tylenol Extra Strength) Amlodipine Yes 2.5 mg, Tobi benedict 11-09 PO, Daily, l 00:33: 0 [place] 00 Refill(s) spironolact Yes 50 mg = 1 M emoria one 50 mg 11-09 tab, PO, l oral tablet 00:33: Daily, # He rmann 00 90 tab, 1 Refill(s) NovoLog Yes Special Memoria 11-09 Instructio l 00:33: ns: [place] 00 sliding scale SUB-Q TID-Before Meals Levemir Yes 20 unit, Memori a 11-09 SUB-Q, l 00:33: Bedtime, 0 [place] 00 Refill(s) Amlodipine Yes 2.5 mg, Tobi benedict 9-03 PO, Daily, l 00:33: 0 Refill(s) spironolact [...] 11-08 (Same as: l 21:14: BD Posiflush) [place] No Notes: Memoria Flush 0.9% 02 (Same as: l 21:14: BD Posiflush) Norvasc [...] Immunizations Ordered Filled Immunization Date Status Comments Sour e Immunization Name Name SARS-COV-2 COVID-19 2020-07-16 Completed Unive rsity of PFIZER VACCINE 00:00:00 [facility] SARS-COV-2 COVID-19 2020-07-16 Completed Unive rsity of PFIZER VACCINE 00:00:00 [facility] SARS-COV-2 COVID-19 2020-07-16 Completed Unive rsity of PFIZER VACCINE 00:00:00 [facility] SARS-COV-2 COVID-19 2020-07-16 Completed Unive rsity of PFIZER VACCINE 00:00:00 [facility] SARS-COV-2 COVID-19 2020-07-16 Completed Unive rsity of PFIZER VACCINE 00:00:00 [facility] SARS-COV-2 COVID-19 2020-06-23 Completed Unive rsity of PFIZER VACCINE 00:00:00 [facility] SARS-COV-2 COVID-19 2020-06-23 Completed Unive rsity of PFIZER VACCINE 00:00:00 [facility] SARS-COV-2 COVID-19 2020-06-23 Completed Unive rsity of PFIZER VACCINE 00:00:00 [facility] SARS-COV-2 COVID-19 2020-06-23 Completed Unive rsity of PFIZER VACCINE 00:00:00 [facility] SARS-COV-2 COVID-19 2020-06-23 Completed Unive rsity of PFIZER VACCINE 00:00:00 [facility] Vital Signs Vital Name Observation Time Observation Value Comments Source Heart rate 2021-05-29 14:44:00 60 /[facility] Respiratory rate 2021-05-29 14:44:00 14 /min [facility] Oxygen saturation in 2021-05-29 14:44:00 94 /min [facility] Arterial blood by [facility] Pulse oximetry Branch Systolic blood 2021-05-29 14:42:00 170 mm[Hg] Univer sity of pressure [facility] Diastolic blood 2021-05-29 14:42:00 58 mm[Hg] Unive rsity of pressure [facility] Body temperature 2021-05-29 14:27:00 36.39 [facility] Body height 2021-05-20 15:15:00 160 cm Universi [facility] Body weight 2021-05-20 15:15:00 117.935 kg [facility] BMI 2021-05-20 15:15:00 46[facility]06 [facility] 2021-05-29 12:08:00 156 mm[Hg] Univer sity of pressure [facility] Diastolic blood 2021-05-29 12:08:00 75 mm[Hg] [facility] Heart rate 2021-05-29 12:08:00 62 /min [facility] Body temperature 2021-05-29 12:08:00 36.22 Jimena [facility] Respiratory rate 2021-05-29 12:08:00 18 /min [facility] Oxygen saturation in 2021-05-29 12:08:00 98 /min [facility] Arterial blood by [facility] Pulse oximetry Branch Body height 2021-05-20 15:15:00 160 cm [facility] Body weight 2021-05-20 15:15:00 117.935 kg [facility] BMI 2021-05-20 15:15:00 46.06 kg/m2 [facility] BMI Calculated 2014-12-06 12:26:00 Ben al [place] Weight 2014-12-06 12:26:00 [facility] [place] Height 2014-12-06 12:26:00 162.56 cm [facility] [place] Systolic (mm Hg) 2014-11-10 12:45:00 Tobi lawson [place] Diastolic (mm Hg) 2014-11-10 12:45:00 Mem orial [place] Respitory Rate 2014-11-10 12:45:00 Annaori al [place] Heart Rate 2014-11-10 12:45:00 [facility] [place] Temperature Oral (F) 2014-11-10 12:45:00 97.3 F [facility] [place] Temperature Oral (F) 2014-11-10 08:17:00 97.8 F [facility] [place] Systolic (mm Hg) 2014-11-10 08:17:00 Tobi rial [place] Diastolic (mm Hg) 2014-11-10 08:17:00 Mem orial [place] Respitory Rate 2014-11-10 08:17:00 Memori al [place] Systolic (mm Hg) 2014-11-10 04:33:00 Tobi rial [place] Diastolic (mm Hg) 2014-11-10 04:33:00 Mem orial [place] Temperature Oral (F) 2014-11-10 04:33:00 97.8 F [facility] [place] Respitory Rate 2014-11-10 04:33:00 Memori al [place] Heart Rate 2014-11-09 16:15:00 [facility] [place] Heart Rate 2014-11-09 16:00:00 [facility] [place] Weight 2014-11-09 02:52:00 [facility] 2014-11-09 02:52:00 Memjimmy al [place] Height 2014-11-09 02:52:00 162.56 cm [facility] Procedures Procedure Date / Time Performing Source Performed Clinician PHACOEMULSIFICATION OF 2021-05-29 Sabas Schwab [facility] CATARACT WITH INTRAOCULAR 13:48:00 [facility] LENS IMPLANT POCT GLUCOSE(AGE >30DAYS) 2021-05-29 [facility] 12:16:00 [facility] POCT GLUCOSE(AGE >30DAYS) 2021-05-29 Najma Win [facility] 12:16:00 Medical Branch DAY SURGERY - ADC 2021-05-29 Doctor Unassigned, [facility] 05:01:00 [place] [facility]olecyst[facility]en[facility] of Total Abdominal [facility] Hysterectomy History of Hemorrhoidectomy [facility] History of Tonsillectomy With [facility] Adenoidectomy History of Inguinal Hernia [facility] Repair Abdominal hysterectomy [facility] [place] Bilateral inguinal hernia Memori al [place] repair Cholecystectomy [facility] [place] Hemorrhoidectomy Memorial Michael n Tonsillectomy and Memorial Lidya nn adenoidectomy Total splenectomy [facility] L[place]ya nn Plan of Care Planned Activity Planned Date Details Comments Source Future Scheduled 2022-06-25 SHINGLES VACCINES (1 Met [facility] Test 15:12:51 of 2) [code = SHINGLES VACCINES (1 of 2)] Future Scheduled 2022-06-25 65+ [facility]OCOCCAL [facility] Test 15:12:51 VACCINE (1 - PCV) [code = 65+ PNEUMOCOCCAL VACCINE (1 - PCV)] Future Scheduled 2022-06-25 COVID-19 VACCINE (3 - Me [facility] Test 15:12:51 Booster for Pfizer series) [code = COVID-19 VACCINE (3 - Booster for Pfizer series)] Future Scheduled 2022-06-25 INFLUENZA VACCINE [facility] Test 15:12:51 [code = INFLUENZA VACCINE] Future Scheduled 2019-11-08 INFLUENZA VACCINE (#1) C [...] [facility] Test 00:00:00 (1 of 1 - Medical Center [id number] PCV13) [code = PNEUMOCOCCAL 65+ YRS (1 of 1 - [id number] PCV13)] Encounters Start End Encounter Admission Attending Care Care Encounter Source Date/Time Date/Time Type Type Clinicians Facility Department ID 2021-04-15 Outpatient Huong SCHWAB [facility] OPH [id number] Univers 17:37:13 SABAS coyne [facility] 2021-05-29 2021-05-29 Outpatient Huong SCHWAB [facility] OPH [id number] Univers 07:03:00 09:54:00 SABAS coyne [facility] 2021-05-29 2021-05-29 Hospital [facility] [id number] Univers 07:03:00 09:54:[address] [id number] [place] [id number] Jose Raul s SURGICAL [id number] [place] [address] Branch 2021-05-29 2021-05-29 Surgery [facility] [id number] Univers 08:11:00 08:49:[address] [id number] [id number] [place] [id number] [facility] 020 Branch 2021-05-29 2021-05-29 Orders Doctor DHIRAJ [id number] Univers 00:00:00 00:00:00 Only Unassigned, MADELEINE [id number] ity of [place] [facility] [id number] Guillermo as [id number] [facility] 009 Branch 2021-04-29 2021-04-29 Laboratory Only, Adc Test [facility] [id number] Univers 14:45:00 15:00:00 Only Sabas Schwab 350.1.13.1 0 ity of [facility] [id number] [place] [id number] [facility] [address] 2021-04-29 2021-04-29 Outpatient Huong SCHWAB [facility] [id number] Univers 14:45:00 14:45:00 SABAS coyne [facility] 2021-04-15 2021-04-15 Eyeglass Maker Yifan, Adc Lab Main [facility] [id number] Univers 17:15:00 17:30:00 Visit Sabas Schwab [id number] 0 ity of [place] [id number] [place] PROF[place] [id number] [place] [address] 2021-04-15 2021-04-15 Outpatient Huong SCHWAB [facility] [id number] Univers 17:15:00 17:15:00 SABAS coyne [facility] 2021-02-08 2021-02-09 Outpatient SNEHA, [facility] [id number] [place] 00:00:00 00:00:00 NADIM 724 Method i 2021-02-04 2021-02-04 Outpatient SNEHA, [facility] [id number] [place] 00:00:00 00:00:00 NADIM 140 Method i 2020-07-16 2020-07-16 Outpatient Huong CHRISTIE [facility] [id number] Univers 09:05:00 09:05:37 DESHAWN coyne [facility] 2020-06-23 2020-06-23 Outpatient R SHAHNAZ, [facility] [id number] Univers 09:00:00 09:07:43 DESHAWN ariel [facility] 2015-04-10 2015-04-11 Outpt Diag nullFlavo [facility] [id number] Memoria 18:42:00 05:59:00 Services r Outpatient 01 l Imaging Junito Wild 2015-04-10 2015-04-11 [place] [id number] Mem[place] 18:42:00 05:59:00 Services r Outpatient 01 l Imaging Junito Wild 2015-04-10 2015-04-10 Outpatient CRIS GoodwinH MHOIH [id number] 12:42:00 23:59:00 Vlad Rich 2015-04-10 2015-04-10 JULIA Covarrubias [facility] [place] [id number] [place] 09:00:00 09:00:00 t; VLAD GOODWIN M.D. Physici KAZIM, ans M.D. 2015-04-09 2015-04-10 Outpt Diag nullFlavo [facility] [id number] Memoria 18:48:00 05:59:00 Services r Outpatient 00 l Imaging Junito Conleyland 2015-04-09 2015-04-10 Outpt Diag nullFlavo [facility] [id number] Memoria 18:48:00 05:59:00 Services r Outpatient 00 l Imaging Junito [place]yland 2015-04-09 2015-04-09 Outpatient Zoya MHOIP OIP [id number] 12:48:00 23:59:00 Citlali Reyes 2015-03-27 2015-03-27 AppointJULIA Suarez [id number] [place] 11:15:00 11:15:00 t; CITLALI KENNY, Dena Combs M.D. 2015-03-06 2015-03-06 JULIA Covarrubias UTP [id number] [place] 09:00:00 09:00:00 t; VLAD GOODWIN M.D. Physici KAZIM, ans M.D. 2014-12-06 2014-12-07 Outpatient nullFlavo [facility] [id number] Memoria 12:19:00 04:59:00 r Junito 00 l [facility] 2014-12-06 2014-12-07 [id number] Memoria 12:19:00 04:59:00 r Junito 00 l [facility] 2014-12-06 2014-12-06 Outpatient Lyn [facility] [id number] 07:19:00 23:59:00 Anjail 00 Asiya 2014-11-08 2014-11-10 Inpatient nullFlavo [facility] [id number] Memoria 21:20:00 17:54:00 r Junito 67 [facility] 2014-11-08 2014-11-10 Inpatient nullFlavo [facility] [id number] Memoria 21:20:00 17:54:00 r [place] 67 [facility] 2014-11-08 2014-11-10 Outpatient Jesus [facility] [id number] 16:20:00 12:54:00 Deric Villafana Results Test Description Test Time Test Comments Results Result Comments Source POCT Glucose 2021-05-29 12:16:00 Test Item Value Reference Range Interpretation Comme nts POCT Glu (age>30days) (test code = 3342) 141 mg/dL 70-110 A Lab Interpretation (test code = 99119-6) Abnormal General acute hospital [id number] 12:16:00 Test Item Value Reference Range Interpretation Comments POCT Glu (age>30days) (test code = 141 mg/dL 70-110 A 3342) Lab Interpretation (test code = Abnormal 12615-6) [facility] [Presence] in Respiratory specimen by GURMEET with probe [id number] 19:42:59 Test Item Value Reference Range Interpretation Comments SARS-CoV-2 (COVID-19) RNA Not detected Not-Detected [Presence] in Respiratory specimen by GURMEET with probe detection (test code = 14367-7) Whether patient is employed in a healthcare setting (test code = 52201-9) Whether the patient has symptoms related to condition of interest (test code = 79123-5) Patient was hospitalized because of this condition (test code = 94092-5) Whether the patient was admitted to intensive care unit (ICU) for condition of interest (test code = 14563-9) Whether patient resides in a congregate care setting (test code = 86379-8) KENDRA BRADLEY WESTPOCT-GLUCOSE [id number] 12:30:00 Test Item Value Reference Range Interpretation Comments POC-GLUCOSE METER 164 mg/dL 70-110 H TESTED AT [place] [address] ([facility]) (test code = [place] 1538) [address] POCT-GLUCOSE [id number] 12:29:00 Test Item Value Reference Range Interpretation Comments POC-GLUCOSE METER 83 mg/dL 70-110 TESTED AT [place] [address] ([facility]) (test code = [place] [address] 1538) POCT-GLUCOSE [id number] 22:17:00 Test Item Value Reference Range Interpretation Comments POC-GLUCOSE METER 116 mg/dL 70-110 H TESTED AT [place] [address] ([facility]) (test code = [place] 1538) 6[address] POCT-GLUCOSE [id number] 17:38:00 Test Item Value Reference Range Interpretation Comments POC-GLUCOSE METER 168 mg/dL 70-110 H TESTED AT [place] [address] ([facility]) (test code = [place] 1538) 25873 POCT-GLUCOSE [id number] 12:41:00 Test Item Value Reference Range Interpretation Comments POC-GLUCOSE METER 243 mg/dL 70-110 H TESTED AT [place] [address] ([facility]) (test code = [place] 1538) 249[address] POCT-GLUCOSE [id number] 09:34:00 Test Item Value Reference Range Interpretation Comments POC-GLUCOSE METER 193 mg/dL 70-110 H TESTED AT [place] [address] ([facility]) (test code = Z[place]IR[place] Borja [place] 1538) 61768 POCT-GLUCOSE [id number] 21:52:00 Test Item Value Reference Range Interpretation Comments POC-GLUCOSE METER 222 mg/dL 70-110 H TESTED AT [place] [address] ([facility]) (test code = [place] 1538) [address] POCT-GLUCOSE [id number] 18:59:00 Test Item Value Reference Range Interpretation Comments POC-GLUCOSE METER 181 mg/dL 70-110 H TESTED AT [place] [address] (BEAKER) (test code = DAVE Borja [facility] 1538) 540[address] POCT-GLUCOSE [id number] 14:21:00 Test Item Value Reference Range Interpretation Comments POC-GLUCOSE METER 179 mg/dL 70-110 H TESTED AT [facility] 6720 (BEAKER) (test code = DAVE Borja [facility] 1538) 589[address] POCT-GLUCOSE [id number] 09:40:00 Test Item Value Reference Range Interpretation Comments POC-GLUCOSE METER 211 mg/dL 70-110 H TESTED AT [place] [address] (BEAKER) (test code = [facility] Huong [facility] 1538) 21887 BASIC METABOLIC [id number] 06:49:00 Test Item Value Reference Range Interpretation [...] PATIEN TS. CBC W/PLT COUNT & AUTO [id number] 06:45:00 Test Item Value Reference Range Interpretation [...] (BEAKER) (test code = 2801) URINALYSIS W/ [id number] 04:40:00 Test Item Value Reference Range Interpretation [...] 516) SOURCE(BEAKER) (test code = 2795) POCT-GLUCOSE [id number] 20:47:00 Test Item Value Reference Range Interpretation Comments POC-GLUCOSE METER 273 mg/dL 70-110 H TESTED AT [place] [address] ([facility]) (test code = DAVE Borja [facility] 1538) 829[address] POCT-GLUCOSE [id number] 18:20:00 Test Item Value Reference Range Interpretation Comments POC-GLUCOSE METER 305 mg/dL 70-110 H Notified R Siria SMITH/TESTED ([facility]) (test code = AT [facility] [address] [place] 1538) [facility] 7703 0 POCT-GLUCOSE [id number] 14:27:00 Test Item Value Reference Range Interpretation Comments POC-GLUCOSE METER 215 mg/dL 70-110 H TESTED AT [place] [address] ([facility]) (test code = DAVE Borja [facility] 1538) 41383 POCT-GLUCOSE [id number] 12:10:00 Test Item Value Reference Range Interpretation Comments POC-GLUCOSE METER 278 mg/dL 70-110 H TESTED AT [place] 7[address]20 ([facility]) (test code = DAVE Borja [facility] 1538) 94374 POCT-GLUCOSE [id number] 08:12:00 Test Item Value Reference Range Interpretation Comments POC-GLUCOSE METER 225 mg/dL 70-110 H TESTED AT [facility] 6720 (BEAKER) (test code = DAVE Borja [facility] 1538) 66844 POCT-GLUCOSE [id number] 21:36:00 Test Item Value Reference Range Interpretation Comments POC-GLUCOSE METER 272 mg/dL 70-110 H TESTED AT [facility] 6720 (BEAKER) (test code = DAVE Borja [facility] 1538) 85633 POCT-GLUCOSE [id number] 18:06:00 Test Item Value Reference Range Interpretation Comments POC-GLUCOSE METER 264 mg/dL 70-110 H TESTED AT [facility] 6720 (BEAKER) ([facility] = [facility] 1538) 5[address] POCT-GLUCOSE [id number] 13:33:00 Test Item Value Reference Range Interpretation Comments POC-GLUCOSE METER 225 mg/dL 70-110 H TESTED AT [facility] 6720 (BEAKER) (test code = DAVE Borja [facility] 1538) 78918 POCT-GLUCOSE [id number] 08:16:00 Test Item Value Reference Range Interpretation Comments POC-GLUCOSE METER 217 mg/dL 70-110 H TESTED AT [facility] 6720 (BEAKER) (test code = [facility] 1538) 28327 [id number] 07:48:00 Test Item Value Reference Range Interpretation Comments MAGNESIUM (BEAKER) (test code = 1.6 mg/dL 1.6-2.6 627) BASIC METABOLIC [id number] 07:48:00 Test Item Value Reference Range Interpretation [...] PATIEN TS. CBC W/PLT COUNT & AUTO [id number] 07:18:00 Test Item Value Reference Range Interpretation [...] PERCENT (BEAKER) (test code = 2801) POCT-GLUCOSE [id number] 23:19:00 Test Item Value Reference Range Interpretation Comments POC-GLUCOSE METER 214 mg/dL 70-110 H TESTED AT [facility] 67 ([facility]) (test code = DAVE [place] 1538) [address] POCT-GLUCOSE [id number] 16:37:00 Test Item Value Reference Range Interpretation Comments POC-GLUCOSE METER 192 mg/dL 70-110 H TESTED AT [place] [address] ([facility]) (test code = DAVE [place] 1538) 37010 POCT-GLUCOSE [id number] 12:47:00 Test Item Value Reference Range Interpretation Comments POC-GLUCOSE METER 233 mg/dL 70-110 H TESTED AT [place] [address] ([facility]) (test code = DAVE Borja [facility] 1538) 29127 BASIC METABOLIC [id number] 11:26:00 Test Item Value Reference Range Interpretation [...] S NOT APPLICABLE FOR DIALYSIS PATIEN TS. [id number] 11:26:00 Test Item Value Reference Range Interpretation Comments MAGNESIUM (BEAKER) (test code = 1.2 mg/dL 1.6-2.6 L 627) CBC W/PLT COUNT & AUTO [id number] 11:17:00 Test Item Value Reference Range Interpretation [...] 3438) Received comment: User comments: Slide comments:POCT-GLUCOSE [id number] 07:57:00 Test Item Value Reference Range Interpretation Comments POC-GLUCOSE METER 165 mg/dL 70-110 [facility] (test code = DAVE [place] 1538) 8[address] POCT-GLUCOSE [id number] 22:08:00 Test Item Value Reference Range Interpretation Comments POC-GLUCOSE METER 161 mg/dL 70-110 H TESTED AT [facility] 6720 (BEAKER) (test code = DAVE [place] 1538) 92608 POCT-GLUCOSE [id number] 18:10:00 Test Item Value Reference Range Interpretation Comments POC-GLUCOSE METER 141 mg/dL 70-110 H TESTED AT [facility] 6720 (BEAKER) (test code = DAVE [place] 1538) 24006 [id number] 14:55:00 Test Item Value Reference Range Interpretation Comments MAGNESIUM (BEAKER) 1.2 mg/dL 1.6-2.6 L Specimen slightly (test code = 627) hemolyzed BASIC METABOLIC [id number] 14:55:00 Test Item Value Reference Range Interpretation [...] NOT APPLICABLE FOR DIALYSIS PATIEN TS. POCT-GLUCOSE [id number] 12:01:00 Test Item Value Reference Range Interpretation Comments POC-GLUCOSE METER 163 mg/dL 70-110 H TESTED AT [facility] 6720 (BEAKER) (test code = DAVE [place] 1538) [address] CBC W/PLT COUNT & AUTO [id number] 11:57:00 Test Item Value Reference Range Interpretation [...] PERCENT (BEAKER) (test code = 2801) POCT-GLUCOSE [id number] 10:18:00 Test Item Value Reference Range Interpretation Comments POC-GLUCOSE METER 155 mg/dL 70-110 H TESTED AT [facility] 6720 ([facility]) (test code = DAVE [place] 1538) 51001 POCT-GLUCOSE [id number] 08:13:00 Test Item Value Reference Range Interpretation Comments POC-GLUCOSE METER 157 mg/dL 70-110 H TESTED AT [facility] 6720 ([facility]) (test code = DAVE [place] 1538) [address]75 POCT-GLUCOSE [id number] 21:57:00 Test Item Value Reference Range Interpretation Comments POC-GLUCOSE METER 181 mg/dL 70-110 H TESTED AT [place] [address] (BEAKER) (test code = DAVE Borja [facility] 1538) 05807 POCT-GLUCOSE [id number] 17:39:00 Test Item Value Reference Range Interpretation Comments POC-GLUCOSE METER 232 mg/dL 70-110 H TESTED AT [place] [address] (BEAKER) (test code = DAVE Borja [facility] 1538) 29637 POCT-GLUCOSE [id number] 12:55:00 Test Item Value Reference Range Interpretation Comments POC-GLUCOSE METER 207 mg/dL 70-110 H TESTED AT [place] [address] ([facility]) (test code = DAVE Borja [facility] 1538) 63794 CBC W/PLT COUNT & AUTO [id number] 12:50:00 Test Item Value Reference Range Interpretation [...] 3438) Received comment: User comments: Slide comments:POCT-GLUCOSE [id number] 08:56:00 Test Item Value Reference Range Interpretation Comments POC-GLUCOSE METER 194 mg/dL 70-110 H TESTED AT [facility] 6720 (BEAKER) (test code = DAVE [place] 1538) 12362 [id number] 06:11:00 Test Item Value Reference Range Interpretation Comments MAGNESIUM (BEAKER) (test code = 1.4 mg/dL 1.6-2.6 L 627) BASIC METABOLIC [id number] 06:11:00 Test Item Value Reference Range Interpretation [...] NOT APPLICABLE FOR DIALYSIS PATIEN TS. POCT-GLUCOSE [id number] 21:53:00 Test Item Value Reference Range Interpretation Comments POC-GLUCOSE METER 225 mg/dL 70-110 H TESTED AT [facility] 67 (BEAKER) ([facility] = [facility] 1538) 064[address] POCT-GLUCOSE [id number] 19:30:00 Test Item Value Reference Range Interpretation Comments POC-GLUCOSE METER 225 mg/dL 70-110 H TESTED AT [facility] 67 ([facility]) (test code = [facility] Huong [facility] 1538) 84700 POCT-GLUCOSE [id number] 15:02:00 Test Item Value Reference Range Interpretation Comments POC-GLUCOSE METER 179 mg/dL 70-110 H TESTED AT [facility] 6720 ([facility]) (test code = [facility] Huong [facility] 1538) 55334 [id number] 13:04:00 Test Item Value Reference Range Interpretation Comments MAGNESIUM (BEAKER) 1.5 mg/dL 1.6-2.6 L Specimen slightly (test code = 627) hemolyzed Check Serum Magnesium level 2 hours after IV magnesium replacement.Every 8 hours PRN for Creatinine greater than or equal to 2 mg/dL.[id number] 13:04:00 Test Item Value Reference Range Interpretation Comments POTASSIUM (BEAKER) 4.2 meq/L 3.5-5.1 Specimen slightly (test code = 379) hemolyzed Check Serum Magnesium level 2 hours after IV magnesium replacement.Every 8 hours PRN for Creatinine greater than or equal to 2 mg/dL.POCT-GLUCOSE METER 2018-08-09 08:24:00 Test Item Value Reference Range Interpretation Comments POC-GLUCOSE METER 189 mg/dL 70-110 H TESTED AT [facility] 6720 (BEAKER) (test code = D[place] 1538) 226[address] CBC W/PLT COUNT & AUTO [id number] 08:03:00 Test Item Value Reference Range Interpretation [...] 3438) Received comment: User comments: Slide comments:CALCIUM, [id number] 05:17:00 Test Item Value Reference Range Interpretation Comments CALCIUM IONIZED (BEAKER) (test 1.26 mmol/L 1.12-1.27 code = 698) PH, BLOOD (BEAKER) (test code = 7.42 1810) [id number] 05:09:00 Test Item Value Reference Range Interpretation Comments PHOSPHORUS (BEAKER) (test code = 2.0 mg/dL 2.3-4.7 L 604) [id number] 05:09:00 Test Item Value Reference Range Interpretation Comments MAGNESIUM (BEAKER) (test code = 1.6 mg/dL 1.6-2.6 627) BASIC METABOLIC [id number] 05:09:00 Test Item Value Reference Range Interpretation [...] NOT APPLICABLE FOR DIALYSIS PATIEN TS. POCT-GLUCOSE [id number] 23:39:00 Test Item Value Reference Range Interpretation Comments POC-GLUCOSE METER 200 mg/dL 70-110 H TESTED AT [facility] 6720 (BEAKER) (test code = [place]ENDR[place] 1538) 74[address] [id number] 22:42:00 Test Item Value Reference Range Interpretation Comments MAGNESIUM (BEAKER) (test code = 1.5 mg/dL 1.6-2.6 L 627) POTASSIUM-STAT [id number] 22:24:00 Test Item Value Reference Range Interpretation Comments POTASSIUM (BEAKER) (test code = 3.7 meq/L 3.6-5.5 379) BLOOD GAS, [id number] 22:24:00 Test Item Value Reference Range Interpretation [...] (test code = 1819) 28.0 % CALCIUM, [id number] 22:23:00 Test Item Value Reference Range Interpretation Comments CALCIUM IONIZED ([facility]) (test 1.21 mmol/L 1.12-1.27 code = 698) PH, BLOOD ([facility]) (test code = 7.44 1810) POCT-GLUCOSE [id number] 17:12:00 Test Item Value Reference Range Interpretation Comments POC-GLUCOSE METER 199 mg/dL 70-110 H TESTED AT [place] [address] ([facility]) (test code = DAVE Borja [facility] 1538) 87689 POCT-GLUCOSE [id number] 12:12:00 Test Item Value Reference Range Interpretation Comments POC-GLUCOSE METER 184 mg/dL 70-110 H TESTED AT [place] [address] ([facility]) (test code = DAVE Borja [facility] 1538) 48296 POCT-GLUCOSE [id number] 08:49:00 Test Item Value Reference Range Interpretation Comments POC-GLUCOSE METER 195 mg/dL 70-110 H TESTED AT [place] [address] ([facility]) (test code = DAVE Borja [facility] 1538) [address]12 RAD, CHEST, 1 VIEW, NON [id number] 08:36:00Reason for exam:->s/p CV surgeryShould this be [...] Posadas Verified Date/Time: 08/08/2018 08:36:43 Reading Location: [address] Neuro Reading Room CBC W/PLT COUNT & AUTO [id number] 05:32:00 Test Item Value Reference Range Interpretation [...] 0-1 PERCENT (BEAKER) (test code = 2801) [id number] 05:14:00 Test Item Value Reference Range Interpretation Comments MAGNESIUM (BEAKER) (test code = 2.1 mg/dL 1.6-2.6 627) BASIC METABOLIC [id number] 05:14:00 Test Item Value Reference Range Interpretation [...] NOT APPLICABLE FOR DIALYSIS PATIEN TS. CALCIUM, [id number] 05:07:00 Test Item Value Reference Range Interpretation Comments CALCIUM IONIZED (BEAKER) (test 1.21 mmol/L 1.12-1.27 code = 698) PH, BLOOD (BEAKER) (test code = 7.42 1810) BLOOD GAS, [id number] 05:06:00 Test Item Value Reference Range Interpretation [...] code = 1819) 28.0 % LACTIC ACID, [id number] 05:01:00 Test Item Value Reference Range Interpretation Comments LACTATE BLOOD ARTERIAL (2) 1.0 mmol/L 0.5-2.2 (BEAKER) (test code = 2874) POCT-GLUCOSE [id number] 23:22:00 Test Item Value Reference Range Interpretation Comments POC-GLUCOSE METER 252 mg/dL 70-110 H TESTED AT [facility] 6720 (BEAKER) (test code = D[place] 1538) 87484 LACTIC ACID, [id number] 19:42:00 Test Item Value Reference Range Interpretation Comments LACTATE BLOOD ARTERIAL (2) 1.6 mmol/L 0.5-2.2 (BEAKER) (test code = 2874) BLOOD GAS, [id number] 19:33:00 Test Item Value Reference Range Interpretation [...] code = 1819) 36.0 % LACTIC ACID, [id number] 16:37:00 Test Item Value Reference Range Interpretation Comments LACTATE BLOOD ARTERIAL (2) 2.6 mmol/L 0.5-2.2 H (BEAKER) (test code = 2874) BLOOD GAS, [id number] 16:21:00 Test Item Value Reference Range Interpretation [...] code = 1819) 36.0 % BLOOD GAS, [id number] 15:01:00 Test Item Value Reference Range Interpretation [...] code = 1819) 36.0 % OXYGEN SATURATION, [id number] 14:58:00 Test Item Value Reference Range Interpretation Comments O2 SATURATION (MEASURED) (BEAKER) 63.8 % (test code = 1455) LACTIC ACID, [id number] 08:57:00 Test Item Value Reference Range Interpretation Comments LACTATE BLOOD ARTERIAL (2) 0.9 mmol/L 0.5-2.2 (BEAKER) (test code = 2874) RAD, CHEST, 1 VIEW, NON [id number] 06:53:00Reason for exam:->s/p CV surgeryShould this be [...] MDReport Verified Date/Time: 08/07/2018 06:53:26 Reading Location: [facility] C013Y CT Body Reading Room [id number] 04:25:00 Test Item Value Reference Range Interpretation Comments PHOSPHORUS (BEAKER) (test code = 2.6 mg/dL 2.3-4.7 604) [id number] 04:25:00 Test Item Value Reference Range Interpretation Comments MAGNESIUM (BEAKER) (test code = 1.9 mg/dL 1.6-2.6 627) BASIC METABOLIC [id number] 04:25:00 Test Item Value Reference Range Interpretation [...] 0-0 (BEAKER) (test code = 413) CALCIUM, [id number] 03:31:00 Test Item Value Reference Range Interpretation Comments CALCIUM IONIZED (BEAKER) (test 1.23 mmol/L 1.12-1.27 code = 698) PH, BLOOD (BEAKER) (test code = 7.40 1810) BLOOD GAS, [id number] 03:19:00 Test Item Value Reference Range Interpretation [...] (BEAKER) (test code = 1819) 32.0 % [id number] 22:08:00 Test Item Value Reference Range Interpretation Comments MAGNESIUM (BEAKER) (test code = 2.2 mg/dL 1.6-2.6 627) BLOOD GAS, [id number] 22:00:00 Test Item Value Reference Range Interpretation Comments PH ARTERIAL (BEAKER) (test code = 7.40 7.35-7.45 383) PCO2 ARTERIAL (BEAKER) (test code 35 mmHg 35-45 = 384) PO2 ARTERIAL (BEAKER) (test code 109 mmHg 80-90 H = 385) O2 SATURATION ARTERIAL (BEAKER) 97.9 % 96.0-97.0 H (test code = 386) HCO3 ARTERIAL (BEAKER) (test code 21 mmol/L = 388) BASE EXCESS ARTERIAL (BEAKER) -2.9 mmol/L -2.0-3.0 L (test code = 387) PATIENT TEMPERATURE (BEAKER) 37.4 C (test code = 1818) FIO2 (BEAKER) (test code = 1819) 32.0 % GLUCOSE-STAT [id number] 22:00:00 Test Item Value Reference Range Interpretation Comments GLUCOSE RANDOM (BEAKER) (test code 187 mg/dL 70-110 H = 652) HGB/HCT (H&H) - STAT [id number] 22:00:00 Test Item Value Reference Range Interpretation Comments HEMOGLOBIN (BEAKER) (test code = 10.3 g/dL 12.0-15.0 L 410) HEMATOCRIT (BEAKER) (test code = 30.0 % 36.0-45.0 L 411) SODIUM NA-STAT [id number] 21:59:00 Test Item Value Reference Range Interpretation Comments SODIUM (BEAKER) (test code = 381) 137 meq/L 135-148 POTASSIUM-STAT [id number] 21:59:00 Test Item Value Reference Range Interpretation Comments POTASSIUM (BEAKER) (test code = 4.0 meq/L 3.6-5.5 379) OXYGEN SATURATION, [id number] 21:59:00 Test Item Value Reference Range Interpretation Comments O2 SATURATION (MEASURED) (BEAKER) 70.7 % (test code = 1455) CALCIUM, [id number] 21:59:00 Test Item Value Reference Range Interpretation Comments CALCIUM IONIZED (BEAKER) (test 1.23 mmol/L 1.12-1.27 code = 698) PH, BLOOD (BEAKER) (test code = 7.41 1810) POCT-GLUCOSE [id number] 17:02:00 Test Item Value Reference Range Interpretation Comments POC-GLUCOSE METER 223 mg/dL 70-110 H TESTED AT [facility] 67 ([facility]) (test code = [place] 1538) [address] POCT-GLUCOSE [id number] 12:13:00 Test Item Value Reference Range Interpretation Comments POC-GLUCOSE METER 109 mg/dL 70-110 TESTED AT [place] [address] ([facility]) (test code = [place] 1538) [address] POCT-GLUCOSE [id number] 10:41:00 Test Item Value Reference Range Interpretation Comments POC-GLUCOSE METER 105 mg/dL 70-110 TESTED AT [place] [address] ([facility]) (test code = DAVE [place] 1538) [address] COMPREHENSIVE METABOLIC [id number] 09:37:00 Test Item Value Reference Range Interpretation [...] APPLICABLE FOR DIALYSIS PATIEN TS. BLOOD GAS, [id number] 08:39:00 Test Item Value Reference Range Interpretation [...] 40.0 % RAD, CHEST, 1 VIEW, NON [id number] 07:24:00Reason for exam:->s/p CV surgeryShould this be [...] MDReport Verified Date/Time: 08/06/2018 07:24:21 Reading Location: [facility] Radiology Reading Room POCT-GLUCOSE [id number] 06:19:00 Test Item Value Reference Range Interpretation Comments POC-GLUCOSE METER 157 mg/dL 70-110 H TESTED AT [facility] 6720 (BEAKER) (test code = [facility] 1538) [address] POCT-GLUCOSE [id number] 06:19:00 Test Item Value Reference Range Interpretation Comments POC-GLUCOSE METER 162 mg/dL 70-110 H TESTED AT [facility] 67 (BEAKER) (test code = [facility] [facility] 1538) [address] POCT-GLUCOSE [id number] 06:18:00 Test Item Value Reference Range Interpretation Comments POC-GLUCOSE METER 120 mg/dL 70-110 H TESTED AT [facility] 6720 (BEAKER) (test code = [facility] 1538) [address] [id number] 04:49:00 Test Item Value Reference Range Interpretation [...] than or equal to 2 mg/dL.BASIC METABOLIC [id number] 04:49:00 Test Item Value Reference Range Interpretation [...] than or equal to 2 mg/dL.LACTIC ACID, [id number] 04:44:00 Test Item Value Reference Range Interpretation [...] (BEAKER) (test code = 413) OXYGEN SATURATION, [id number] 04:32:00 Test Item Value Reference Range Interpretation Comments O2 SATURATION (MEASURED) (BEAKER) 69.8 % (test code = 1455) CALCIUM, [id number] 04:28:00 Test Item Value Reference Range Interpretation Comments CALCIUM IONIZED (BEAKER) (test 1.19 mmol/L 1.12-1.27 code = 698) PH, BLOOD (BEAKER) (test code = 7.41 1810) BLOOD GAS, [id number] 04:27:00 Test Item Value Reference Range Interpretation [...] (test code = 1819) 40.0 % POCT-GLUCOSE [id number] 02:20:00 Test Item Value Reference Range Interpretation Comments POC-GLUCOSE METER 165 mg/dL 70-110 H TESTED AT [facility] 6720 ([facility]) (test code = [facility] 1538) [address] POCT-GLUCOSE [id number] 02:20:00 Test Item Value Reference Range Interpretation Comments POC-GLUCOSE METER 180 mg/dL 70-110 H TESTED AT [facility] 6720 ([facility]) (test code = [place] 1538) [address] POCT-GLUCOSE [id number] 02:20:00 Test Item Value Reference Range Interpretation Comments POC-GLUCOSE METER 191 mg/dL 70-110 H TESTED AT [facility] 6720 (BEAKER) (test code = [place] 1538) [address] CALCIUM, [id number] 00:05:00 Test Item Value Reference Range Interpretation Comments CALCIUM IONIZED (BEAKER) (test 1.19 mmol/L 1.12-1.27 code = 698) PH, BLOOD (BEAKER) (test code = 7.37 1810) LACTIC ACID, [id number] 00:05:00 Test Item Value Reference Range Interpretation Comments LACTATE BLOOD 4.1 mmol/L 0.5-2.2 H Specimen sligh tly ARTERIAL (2) (BEAKER) hemoly zed (test code = 2874) BLOOD GAS, [id number] 00:04:00 Test Item Value Reference Range Interpretation [...] (test code = 1819) 40.0 % GLUCOSE-STAT [id number] 00:04:00 Test Item Value Reference Range Interpretation Comments GLUCOSE RANDOM (BEAKER) (test code 173 mg/dL 70-110 H = 652) HGB/HCT (H&H) - STAT [id number] 00:04:00 Test Item Value Reference Range Interpretation Comments HEMOGLOBIN (BEAKER) (test code = 8.6 g/dL 12.0-15.0 L 410) HEMATOCRIT (BEAKER) (test code = 25.0 % 36.0-45.0 L 411) [id number] 00:02:00 Test Item Value Reference Range Interpretation Comments MAGNESIUM (BEAKER) (test code = 2.4 mg/dL 1.6-2.6 627) Check Serum Magnesium level 2 hours after IV magnesium replacement.SODIUM NA- STAT [id number] 00:00:00 Test Item Value Reference Range Interpretation Comments SODIUM (BEAKER) (test code = 381) 137 meq/L 135-148 POTASSIUM-STAT [id number] 00:00:00 Test Item Value Reference Range Interpretation Comments POTASSIUM (BEAKER) (test code = 4.1 meq/L 3.6-5.5 379) POCT-GLUCOSE [id number] 22:43:00 Test Item Value Reference Range Interpretation Comments POC-GLUCOSE METER 182 mg/dL 70-110 H TESTED AT [place] [address] ([facility]) (test code = [facility] 1538) [address] POCT-GLUCOSE [id number] 22:43:00 Test Item Value Reference Range Interpretation Comments POC-GLUCOSE METER 174 mg/dL 70-110 H TESTED AT [place] [address] ([facility]) (test code = [facility] 1538) [address] POCT-GLUCOSE [id number] 22:43:00 Test Item Value Reference Range Interpretation Comments POC-GLUCOSE METER 150 mg/dL 70-110 H TESTED AT [place] [address] ([facility]) (test code = [facility] 1538) [address] CALCIUM, [id number] 19:54:00 Test Item Value Reference Range Interpretation Comments CALCIUM IONIZED (BEAKER) (test 1.16 mmol/L 1.12-1.27 code = 698) PH, [facility]LOOD [facility] (test code = 7.39 1810) LACTIC ACID, [id number] 19:40:00 Test Item Value Reference Range Interpretation Comments LACTATE BLOOD ARTERIAL (2) 2.3 mmol/L 0.5-2.2 H (BEAKER) (test code = 2874) [id number] 19:38:00 Test Item Value Reference Range Interpretation Comments MAGNESIUM (BEAKER) (test code = 2.2 mg/dL 1.6-2.6 627) SODIUM NA-STAT [id number] 19:24:00 Test Item Value Reference Range Interpretation Comments SODIUM (BEAKER) (test code = 381) 135 meq/L 135-148 POTASSIUM-STAT [id number] 19:24:00 Test Item Value Reference Range Interpretation Comments POTASSIUM (BEAKER) (test code = 3.7 meq/L 3.6-5.5 379) BLOOD GAS, [id number] 19:24:00 Test Item Value Reference Range Interpretation [...] (test code = 1819) 40.0 % GLUCOSE-STAT [id number] 19:24:00 Test Item Value Reference Range Interpretation Comments GLUCOSE RANDOM (BEAKER) (test code 163 mg/dL 70-110 H = 652) HGB/HCT (H&H) - STAT [id number] 19:24:00 Test Item Value Reference Range Interpretation Comments HEMOGLOBIN (BEAKER) (test code = 9.5 g/dL 12.0-15.0 L 410) HEMATOCRIT (BEAKER) (test code = 28.0 % 36.0-45.0 L 411) OXYGEN SATURATION, [id number] 19:23:00 Test Item Value Reference Range Interpretation Comments O2 SATURATION (MEASURED) (BEAKER) 73.8 % (test code = 1455) POCT-GLUCOSE [id number] 17:19:00 Test Item Value Reference Range Interpretation Comments POC-GLUCOSE METER 128 mg/dL 70-110 H TESTED AT [facility] 6720 (BEAKER) (test code = [place] 1538) [address] OXYGEN SATURATION, [id number] 17:19:00 Test Item Value Reference Range Interpretation Comments O2 SATURATION (MEASURED) (BEAKER) 60.6 % (test code = 1455) POCT-GLUCOSE [id number] 17:19:00 Test Item Value Reference Range Interpretation Comments POC-GLUCOSE METER 158 mg/dL 70-110 H TESTED AT [facility] 6720 (BEAKER) (test code = [facility] [place] 1538) [address] LACTIC ACID, [id number] 17:01:00 Test Item Value Reference Range Interpretation Comments LACTATE BLOOD ARTERIAL (2) 1.5 mmol/L 0.5-2.2 (BEAKER) (test code = 2874) HEMOGLOBIN AND [id number] 16:49:00 Test Item Value Reference Range Interpretation Comments HEMOGLOBIN (BEAKER) (test code = 8.8 GM/DL 11.2-15.7 L 410) HEMATOCRIT (BEAKER) (test code = 26.5 % 34.1-44.9 L 411) POCT-GLUCOSE [id number] 16:31:00 Test Item Value Reference Range Interpretation Comments POC-GLUCOSE METER 191 mg/dL 70-110 H TESTED AT [facility] 6720 (BEAKER) (test code = [facility] [place] 1538) [address] BLOOD GAS, [id number] 16:26:00 Test Item Value Reference Range Interpretation [...] (BEAKER) (test code = 1819) 40.0 % [id number] 13:48:00 Test Item Value Reference Range Interpretation Comments MAGNESIUM (BEAKER) 2.2 mg/dL 1.6-2.6 Specimen slightly (test code = 627) hemolyzed [id number] 13:48:00 Test Item Value Reference Range Interpretation Comments PHOSPHORUS (BEAKER) 4.2 mg/dL 2.3-4.7 Specimen slightly (test code = 604) hemolyzed BASIC METABOLIC [id number] 13:48:00 Test Item Value Reference Range Interpretation [...] APPLICABLE FOR DIALYSIS PATIEN TS. LACTIC ACID, [id number] 13:42:00 Test Item Value Reference Range Interpretation Comments LACTATE BLOOD 1.1 mmol/L 0.5-2.2 Specimen sligh tly ARTERIAL (2) (BEAKER) hemoly zed (test code = 2874) RAD, CHEST, 1 VIEW, NON [id number] 13:35:00Reason for exam:->POST OPShould this be performed [...] t Verified Date/Time: 08/05/2018 13:35:26 Reading Location: [facility] Radiology Reading Room CBC W/PLT COUNT & AUTO [id number] 13:33:00 Test Item Value Reference Range Interpretation [...] (BEAKER) (test code = 2801) BLOOD GAS, [id number] 13:27:00 Test Item Value Reference Range Interpretation [...] code = 1819) 60.0 % OXYGEN SATURATION, [id number] 13:21:00 Test Item Value Reference Range Interpretation Comments O2 SATURATION (MEASURED) (BEAKER) 64.2 % (test code = 1455) [id number] 12:22:00 Test Item Value Reference Range Interpretation Comments FIBRINOGEN LEVEL (BEAKER) (test 225 mg/dl 225-434 code = 658) [id number] 12:22:00 Test Item Value Reference Range Interpretation Comments PARTIAL THROMBOPLASTIN TIME 33.4 seconds 22.5-36.0 (BEAKER) (test code = 760) PROTHROMBIN [id number] 12:21:00 Test Item Value Reference Range Interpretation [...] 0-0 H (BEAKER) (test code = 413) [id number] 11:30:00 Test Item Value Reference Range Interpretation Comments ACTIVATED CLOTTING TIME 109 sec TEST ED AT [facility] 6720 (BEAKER) (test code = [place] [place] 441) [address] [id number] 11:30:00 Test Item Value Reference Range Interpretation Comments ACTIVATED CLOTTING TIME 433 sec TEST ED AT [place] [address] ([facility]) (test code = [place] 441) [address] [id number] 11:30:00 Test Item Value Reference Range Interpretation Comments ACTIVATED CLOTTING TIME 532 sec TEST ED AT [place] [address] ([facility]) (test code = [facility] [place] 441) [address] [id number] 11:30:00 Test Item Value Reference Range Interpretation Comments ACTIVATED CLOTTING TIME 648 sec TEST ED AT [place] [address] ([facility]) (test code = [facility] [place] 441) [address] [id number] 11:30:00 Test Item Value Reference Range Interpretation Comments ACTIVATED CLOTTING TIME 483 sec TEST ED AT [place] [address] ([facility]) (test code = [facility] [place] [place] 441) [address] [id number] 11:30:00 Test Item Value Reference Range Interpretation Comments ACTIVATED CLOTTING TIME 395 sec TEST ED AT [place] [address] ([facility]) (test code = [facility] [place] 441) [address] CALCIUM, [id number] 11:21:00 Test Item Value Reference Range Interpretation Comments CALCIUM IONIZED (BEAKER) (test 1.31 mmol/L 1.12-1.27 H code = 698) PH, BLOOD (BEAKER) (test code = 7.38 1810) BLOOD GAS, [id number] 11:21:00 Test Item Value Reference Range Interpretation [...] code = 1819) 100.0 % SODIUM NA-STAT [id number] 11:21:00 Test Item Value Reference Range Interpretation Comments SODIUM (BEAKER) (test code = 381) 134 meq/L 135-148 L GLUCOSE-STAT [id number] 11:21:00 Test Item Value Reference Range Interpretation Comments GLUCOSE RANDOM (BEAKER) (test code 185 mg/dL 70-110 H = 652) HGB/HCT (H&H) - STAT [id number] 11:21:00 Test Item Value Reference Range Interpretation Comments HEMOGLOBIN (BEAKER) (test code = 8.6 g/dL 12.0-15.0 L 410) HEMATOCRIT (BEAKER) (test code = 25.0 % 36.0-45.0 L 411) POTASSIUM-STAT [id number] 11:20:00 Test Item Value Reference Range Interpretation Comments POTASSIUM (BEAKER) (test code = 3.8 meq/L 3.6-5.5 379) POTASSIUM-STAT [id number] 10:50:00 Test Item Value Reference Range Interpretation Comments POTASSIUM (BEAKER) (test code = 4.7 meq/L 3.6-5.5 379) BLOOD GAS, [id number] 10:50:00 Test Item Value Reference Range Interpretation [...] code = 1819) 65.0 % SODIUM NA-STAT [id number] 10:50:00 Test Item Value Reference Range Interpretation Comments SODIUM (BEAKER) (test code = 381) 132 meq/L 135-148 L GLUCOSE-STAT [id number] 10:50:00 Test Item Value Reference Range Interpretation Comments GLUCOSE RANDOM (BEAKER) (test code 185 mg/dL 70-110 H = 652) HGB/HCT (H&H) - STAT [id number] 10:50:00 Test Item Value Reference Range Interpretation Comments HEMOGLOBIN (BEAKER) (test code = 9.2 g/dL 12.0-15.0 L 410) HEMATOCRIT (BEAKER) (test code = 27.0 % 36.0-45.0 L 411) POTASSIUM-STAT [id number] 10:23:00 Test Item Value Reference Range Interpretation Comments POTASSIUM (BEAKER) (test code = 5.2 meq/L 3.6-5.5 379) BLOOD GAS, [id number] 10:23:00 Test Item Value Reference Range Interpretation [...] (test code = 1819) 65.0 % GLUCOSE-STAT [id number] 10:23:00 Test Item Value Reference Range Interpretation Comments GLUCOSE RANDOM (BEAKER) (test code 170 mg/dL 70-110 H = 652) HGB/HCT (H&H) - STAT [id number] 10:23:00 Test Item Value Reference Range Interpretation Comments HEMOGLOBIN (BEAKER) (test code = 8.9 g/dL 12.0-15.0 L 410) HEMATOCRIT (BEAKER) (test code = 26.0 % 36.0-45.0 L 411) SODIUM NA-STAT [id number] 10:23:00 Test Item Value Reference Range Interpretation Comments SODIUM (BEAKER) (test code = 381) 132 meq/L 135-148 L BLOOD GAS, [id number] 09:58:00 Test Item Value Reference Range Interpretation [...] code = 1819) 60.0 % SODIUM NA-STAT [id number] 09:58:00 Test Item Value Reference Range Interpretation Comments SODIUM (BEAKER) (test code = 381) 132 meq/L 135-148 L GLUCOSE-STAT [id number] 09:58:00 Test Item Value Reference Range Interpretation Comments GLUCOSE RANDOM (BEAKER) (test code 160 mg/dL 70-110 H = 652) HGB/HCT (H&H) - STAT [id number] 09:58:00 Test Item Value Reference Range Interpretation Comments HEMOGLOBIN (BEAKER) (test code = 8.9 g/dL 12.0-15.0 L 410) HEMATOCRIT (BEAKER) (test code = 26.0 % 36.0-45.0 L 411) POTASSIUM-STAT [id number] 09:56:00 Test Item Value Reference Range Interpretation Comments POTASSIUM (BEAKER) (test code = 4.8 meq/L 3.6-5.5 379) BLOOD GAS, [id number] 09:29:00 Test Item Value Reference Range Interpretation [...] code = 1819) 80.0 % SODIUM NA-STAT [id number] 09:29:00 Test Item Value Reference Range Interpretation Comments SODIUM (BEAKER) (test code = 381) 131 meq/L 135-148 L GLUCOSE-STAT [id number] 09:29:00 Test Item Value Reference Range Interpretation Comments GLUCOSE RANDOM (BEAKER) (test code 180 mg/dL 70-110 H = 652) HGB/HCT (H&H) - STAT [id number] 09:29:00 Test Item Value Reference Range Interpretation Comments HEMOGLOBIN (BEAKER) (test code = 7.1 g/dL 12.0-15.0 L 410) HEMATOCRIT (BEAKER) (test code = 21.0 % 36.0-45.0 L 411) POTASSIUM-STAT [id number] 09:28:00 Test Item Value Reference Range Interpretation Comments POTASSIUM (BEAKER) (test code = 5.1 meq/L 3.6-5.5 379) CALCIUM, [id number] 08:02:00 Test Item Value Reference Range Interpretation Comments CALCIUM IONIZED (BEAKER) (test 1.14 mmol/L 1.12-1.27 code = 698) PH, BLOOD (BEAKER) (test code = 7.54 1810) BLOOD GAS, [id number] 08:02:00 Test Item Value Reference Range Interpretation [...] code = 1819) 100.0 % SODIUM NA-STAT [id number] 08:02:00 Test Item Value Reference Range Interpretation Comments SODIUM (BEAKER) (test code = 381) 134 meq/L 135-148 L HGB/HCT (H&H) - STAT [id number] 08:02:00 Test Item Value Reference Range Interpretation Comments HEMOGLOBIN (BEAKER) (test code = 11.2 g/dL 12.0-15.0 L 410) HEMATOCRIT (BEAKER) (test code = 33.0 % 36.0-45.0 L 411) GLUCOSE-STAT [id number] 08:01:00 Test Item Value Reference Range Interpretation Comments GLUCOSE RANDOM (BEAKER) (test code 106 mg/dL 70-110 = 652) POTASSIUM-STAT [id number] 08:01:00 Test Item Value Reference Range Interpretation Comments POTASSIUM (BEAKER) (test code = 3.8 meq/L 3.6-5.5 379) POCT-GLUCOSE [id number] 05:58:00 Test Item Value Reference Range Interpretation Comments POC-GLUCOSE METER 114 mg/dL 70-110 H TESTED AT [facility] 6720 (BEAKER) (test code = [place] 1538) [address] TISSUE [id number] 15:29:00Surgical Pathology Report Case: [id number] Authorizing Provider: Sabas Aquino, Collected:07/28/2018 Adrián SMITH Ordering Location: [facility] Received: 07/28/2018 1614 PERIOPERATIVE SERVICES Pathologist: Alvaro Chavez MD Specimen: Plaque, Carotid PART A RIGHT CAROTID PLAQUE, ENDARTERECTOMY:CALCIFIC ATHEROSCLEROSIS. Signing Pathologist Direct Phone Line: [phone] signed by Alvaro Chavez MD on 08/02/2018 at 3:29 [id number], [id number] stenosis, rightRi ght carotidA. Received in formalin labeled "carotid" a 3 x 1.3 x 1 cm foreman-pink vascular segment. Foreman-yellow and calcified plaque is identified. Photogrammetric Stereo Compiler sections are submitted in cassette A1 following decalcification. CG/pl Performed.POCT-GLUCOSE [id number] 16:25:00 Test Item Value Reference Range Interpretation Comments POC-GLUCOSE METER 173 mg/dL 70-110 H TESTED AT [place] [address] ([facility]) (test code = [facility] 1538) [address] POCT-GLUCOSE [id number] 12:08:00 Test Item Value Reference Range Interpretation Comments POC-GLUCOSE METER 194 mg/dL 70-110 H TESTED AT [place] [address] ([facility]) (test code = [facility] 1538) [address] POCT-GLUCOSE [id number] 07:15:00 Test Item Value Reference Range Interpretation Comments POC-GLUCOSE METER 228 mg/dL 70-110 H TESTED AT [place] [address] ([facility]) (test code = [facility] 1538) [address] CBC W/PLT COUNT & AUTO [id number] 06:14:00 Test Item Value Reference Range Interpretation [...] PERCENT (BEAKER) (test code = 2801) CALCIUM, [id number] 05:52:00 Test Item Value Reference Range Interpretation Comments CALCIUM IONIZED (BEAKER) (test 1.24 mmol/L 1.12-1.27 code = 698) PH, BLOOD (BEAKER) (test code = 7.40 1810) POCT-GLUCOSE [id number] 22:03:00 Test Item Value Reference Range Interpretation Comments POC-GLUCOSE METER 217 mg/dL 70-110 H TESTED AT [facility] 6720 ([facility]) (test code = [facility] 1538) [address] POCT-GLUCOSE [id number] 17:53:00 Test Item Value Reference Range Interpretation Comments POC-GLUCOSE METER 252 mg/dL 70-110 H TESTED AT [facility] 6720 ([facility]) (test code = [facility] 1538) [address] RAD, ABDOMEN/KUB, 1 VIEW [id number] 15:31:00Reason for exam:->nauseaFINAL REPORT EXAM: Frontal chest [...] [place] Verified Date/Time: 07/30/2018 15:31:29 Reading Location: [facility] Women POCT-GLUCOSE [id number] 12:34:00 Test Item Value Reference Range Interpretation Comments POC-GLUCOSE METER 244 mg/dL 70-110 H TESTED AT [facility] 6720 (BEAKER) (test code = [facility] 1538) [address] POCT-GLUCOSE [id number] 09:16:00 Test Item Value Reference Range Interpretation Comments POC-GLUCOSE METER 237 mg/dL 70-110 H TESTED AT [facility] 6720 (BEAKER) (test code = [facility] 1538) [address] CALCIUM, [id number] 06:24:00 Test Item Value Reference Range Interpretation Comments CALCIUM IONIZED (BEAKER) (test 1.22 mmol/L 1.12-1.27 code = 698) PH, BLOOD (BEAKER) (test code = 7.39 1810) [id number] 05:34:00 Test Item Value Reference Range Interpretation Comments PHOSPHORUS (BEAKER) (test code = 2.4 mg/dL 2.3-4.7 604) [id number] 05:34:00 Test Item Value Reference Range Interpretation Comments MAGNESIUM (BEAKER) (test code = 1.5 mg/dL 1.6-2.6 L 627) BASIC METABOLIC [id number] 05:34:00 Test Item Value Reference Range Interpretation [...] PATIEN TS. CBC W/PLT COUNT & AUTO [id number] 05:27:00 Test Item Value Reference Range Interpretation [...] PERCENT (BEAKER) (test code = 2801) POCT-GLUCOSE [id number] 21:42:00 Test Item Value Reference Range Interpretation Comments POC-GLUCOSE METER 186 mg/dL 70-110 H TESTED AT [place] [address] ([facility]) (test code = [facility] [place] 1538) [address] POCT-GLUCOSE [id number] 18:04:00 Test Item Value Reference Range Interpretation Comments POC-GLUCOSE METER 162 mg/dL 70-110 H TESTED AT [place] [address] ([facility]) (test code = [facility] [place] [place] 1538) [address] POCT-GLUCOSE [id number] 13:39:00 Test Item Value Reference Range Interpretation Comments POC-GLUCOSE METER 109 mg/dL 70-110 TESTED AT [place] [address] ([facility]) (test code = [facility] [place] [place] 1538) [address] POCT-GLUCOSE [id number] 13:39:00 Test Item Value Reference Range Interpretation Comments POC-GLUCOSE METER 169 mg/dL 70-110 H TESTED AT [place] [address] ([facility]) (test code = [facility] [place] 1538) [address] POCT-GLUCOSE [id number] 13:39:00 Test Item Value Reference Range Interpretation Comments POC-GLUCOSE METER 202 mg/dL 70-110 H TESTED AT [place] [address] ([facility]) (test code = [facility] [place] 1538) [address] POCT-GLUCOSE [id number] 12:28:00 Test Item Value Reference Range Interpretation Comments POC-GLUCOSE METER 175 mg/dL 70-110 H TESTED AT [place] [address] ([facility]) (test code = [facility] [place] 1538) [address] POCT-GLUCOSE [id number] 10:45:00 Test Item Value Reference Range Interpretation Comments POC-GLUCOSE METER 181 mg/dL 70-110 H TESTED AT [place] [address] ([facility] (test code = [facility] 1538) [address] POCT-GLUCOSE [id number] 09:08:00 Test Item Value Reference Range Interpretation Comments POC-GLUCOSE METER 90 mg/dL 70-110 TESTED AT [place] [address] ([facility]) (test code = [facility] [address] 1538) POCT-GLUCOSE [id number] 09:08:00 Test Item Value Reference Range Interpretation Comments POC-GLUCOSE METER 78 mg/dL 70-110 TESTED AT [place] [address] ([facility]) (test code = [facility] [address] 1538) RAD, CHEST, 1 VIEW, NON [id number] 07:37:00Reason for exam:->POST OPShould this be performed at the bedside?->YesFINAL REPORT CLINICAL HISTORY: POST OP TECHNIQUE: 1 view of the chest. COMPARISON: 07/28/2018 IMPRESSION: There are increased bilateral airspace opacities with suspected trace bilateral pleural effusions. The cardiomediastinal silhouette is magnified by technique. Signed: Annamaria Vargas [place] Verified Date/Time: 07/29/2018 07:37:56 Reading Location: [facility] Radiology Reading Room PHOSPHORUS 2018-07-29 07:21:00 Test Item Value Reference Range Interpretation Comments PHOSPHORUS (BEAKER) (test code = 2.9 mg/dL 2.3-4.7 604) [id number] 07:21:00 Test Item Value Reference Range Interpretation Comments MAGNESIUM (BEAKER) (test code = 2.0 mg/dL 1.6-2.6 627) BASIC METABOLIC [id number] 07:21:00 Test Item Value Reference Range Interpretation [...] APPLICABLE FOR DIALYSIS PATIEN TS. BLOOD GAS, [id number] 06:00:00 Test Item Value Reference Range Interpretation [...] 44.0 % CBC W/PLT COUNT & AUTO [id number] 04:44:00 Test Item Value Reference Range Interpretation [...] (BEAKER) (test code = 2801) BLOOD GAS, [id number] 04:28:00 Test Item Value Reference Range Interpretation [...] (test code = 1819) 36.0 % CALCIUM, [id number] 04:27:00 Test Item Value Reference Range Interpretation Comments CALCIUM IONIZED (BEAKER) (test 1.22 mmol/L 1.12-1.27 code = 698) PH, BLOOD (BEAKER) (test code = 7.41 1810) POCT-GLUCOSE [id number] 01:35:00 Test Item Value Reference Range Interpretation Comments POC-GLUCOSE METER 220 mg/dL 70-110 H TESTED AT [place] [address] ([facility] (test code = [facility] 1538) [address] POCT-GLUCOSE [id number] 01:35:00 Test Item Value Reference Range Interpretation Comments POC-GLUCOSE METER 258 mg/dL 70-110 H TESTED AT [place] [address] ([facility]) (test code = [facility] 1538) [address] POCT-GLUCOSE [id number] 01:35:00 Test Item Value Reference Range Interpretation Comments POC-GLUCOSE METER 263 mg/dL 70-110 H TESTED AT [place] [address] ([facility]) (test code = D[facility] 1538) [address] BLOOD GAS, [id number] 01:24:00 Test Item Value Reference Range Interpretation [...] code = 1819) 36.0 % SODIUM NA-STAT [id number] 01:24:00 Test Item Value Reference Range Interpretation Comments SODIUM (BEAKER) (test code = 381) 134 meq/L 135-148 L GLUCOSE-STAT [id number] 01:24:00 Test Item Value Reference Range Interpretation Comments GLUCOSE RANDOM (BEAKER) (test code 195 mg/dL 70-110 H = 652) HGB/HCT (H&H) - STAT [id number] 01:24:00 Test Item Value Reference Range Interpretation Comments HEMOGLOBIN (BEAKER) (test code = 11.8 g/dL 12.0-15.0 L 410) HEMATOCRIT (BEAKER) (test code = 35.0 % 36.0-45.0 L 411) POTASSIUM-STAT [id number] 01:22:00 Test Item Value Reference Range Interpretation Comments POTASSIUM (BEAKER) (test code = 4.9 meq/L 3.6-5.5 379) POCT-GLUCOSE [id number] 22:27:00 Test Item Value Reference Range Interpretation Comments POC-GLUCOSE METER 235 mg/dL 70-110 H TESTED AT [facility] 6720 (BEAKER) (test code = [place] 1538) [id number] LACTIC ACID, [id number] 21:01:00 Test Item Value Reference Range Interpretation Comments LACTATE BLOOD 0.9 mmol/L 0.5-2.2 Specimen sligh tly ARTERIAL (2) (BEAKER) hemoly zed (test code = 2874) [id number] 20:58:00 Test Item Value Reference Range Interpretation Comments MAGNESIUM (BEAKER) 2.4 mg/dL 1.6-2.6 Specimen slightly (test code = 627) hemolyzed BLOOD GAS, [id number] 20:23:00 Test Item Value Reference Range Interpretation [...] (test code = 1819) 26.0 % GLUCOSE-STAT [id number] 20:23:00 Test Item Value Reference Range Interpretation Comments GLUCOSE RANDOM (BEAKER) (test code 223 mg/dL 70-110 H = 652) SODIUM NA-STAT [id number] 20:21:00 Test Item Value Reference Range Interpretation Comments SODIUM (BEAKER) (test code = 381) 136 meq/L 135-148 POTASSIUM-STAT [id number] 20:21:00 Test Item Value Reference Range Interpretation Comments POTASSIUM (BEAKER) (test code = 4.1 meq/L 3.6-5.5 379) HGB/HCT (H&H) - STAT [id number] 20:21:00 Test Item Value Reference Range Interpretation Comments HEMOGLOBIN (BEAKER) (test code = 12.2 g/dL 12.0-15.0 410) HEMATOCRIT (BEAKER) (test code = 36.0 % 36.0-45.0 411) CALCIUM, [id number] 20:21:00 Test Item Value Reference Range Interpretation Comments CALCIUM IONIZED (BEAKER) (test 1.25 mmol/L 1.12-1.27 code = 698) PH, BLOOD (BEAKER) (test code = 7.34 1810) RAD, CHEST, 1 VIEW, NON [id number] 18:36:00Reason for exam:->POST OPShould this be performed [...] MDReport Verified Date/Time: 07/28/2018 18:36:16 Reading Location: [address] Consult Reading Room POCT- GLUCOSE [id number] 16:38:00 Test Item Value Reference Range Interpretation Comments POC-GLUCOSE METER 215 mg/dL 70-110 H TESTED AT [facility] 6720 (BEAKER) (test code = DAVE Borja [place] 1538) [id number] 15:42:00 Test Item Value Reference Range Interpretation Comments PHOSPHORUS (BEAKER) (test code = 3.5 mg/dL 2.3-4.7 604) [id number] 15:42:00 Test Item Value Reference Range Interpretation Comments MAGNESIUM (BEAKER) (test code = 1.3 mg/dL 1.6-2.6 L 627) BASIC METABOLIC [id number] 15:42:00 Test Item Value Reference Range Interpretation [...] APPLICABLE FOR DIALYSIS PATIEN TS. LACTIC ACID, [id number] 15:38:00 Test Item Value Reference Range Interpretation Comments LACTATE BLOOD 1.3 mmol/L 0.5-2.2 Specimen sligh tly ARTERIAL (2) (BEAKER) hemoly zed (test code = 2874) [id number] 15:36:00 Test Item Value Reference Range Interpretation [...] mechanical heart valves.CBC W/PLT COUNT & AUTO [id number] 15:34:00 Test Item Value Reference Range Interpretation [...] PERCENT (BEAKER) (test code = 2801) GLUCOSE-STAT [id number] 15:33:00 Test Item Value Reference Range Interpretation Comments GLUCOSE RANDOM (BEAKER) (test code 231 mg/dL 70-110 H = 652) BLOOD GAS, [id number] 15:31:00 Test Item Value Reference Range Interpretation [...] code = 1819) 44.0 % SODIUM NA-STAT [id number] 15:31:00 Test Item Value Reference Range Interpretation Comments SODIUM (BEAKER) (test code = 381) 135 meq/L 135-148 POTASSIUM-STAT [id number] 15:31:00 Test Item Value Reference Range Interpretation Comments POTASSIUM (BEAKER) (test code = 4.0 meq/L 3.6-5.5 379) HGB/HCT (H&H) - STAT [id number] 15:31:00 Test Item Value Reference Range Interpretation Comments HEMOGLOBIN (BEAKER) (test code = 12.2 g/dL 12.0-15.0 410) HEMATOCRIT (BEAKER) (test code = 36.0 % 36.0-45.0 411) [id number] 08:00:00 Test Item Value Reference Range Interpretation Comments MAGNESIUM (BEAKER) (test code = 1.9 mg/dL 1.6-2.6 627) BASIC METABOLIC [id number] 08:00:00 Test Item Value Reference Range Interpretation [...] PATIEN TS. CBC W/PLT COUNT & AUTO [id number] 07:23:00 Test Item Value Reference Range Interpretation [...] PERCENT (BEAKER) (test code = 2801) HEMOGLOBIN [id number] 23:04:00 Test Item Value Reference Range Interpretation Comments HEMOGLOBIN A1C (BEAKER) (test code = 7.7 % 4.3-6.1 H 368) POCT-GLUCOSE [id number] 23:03:00 Test Item Value Reference Range Interpretation Comments POC-GLUCOSE METER 261 mg/dL 70-110 H TESTED AT [facility] 6720 (BEAKER) (test code = [place] 1538) [address] COMPREHENSIVE METABOLIC [id number] 21:58:00 Test Item Value Reference Range Interpretation [...] PATIEN TS. CBC W/PLT COUNT & AUTO [id number] 21:33:00 Test Item Value Reference Range Interpretation [...] 0-1 PERCENT (BEAKER) (test code = 2801) [id number] 06:54:00 Test Item Value Reference Range Interpretation Comments WBC (test code = WBC) 11.1 3.7-10.4 [facility]HhxbofbMBEXAEPKZR7529-53-32 06:54:00 Test Item Value Reference Range Interpretation Comments Hct (test code = Hct) 43.8 36.0-48.0 [facility] CenterUntbpzcGTDZMZSDPP5281-79-35 06:54:00 Test Item Value Reference Range Interpretation Comments Hgb (test code = Hgb) 14.2 12.0-16.0 [facility]in[id number] 06:54:00 Test Item Value Reference Range Interpretation Comments RBC (test code = RBC) 4.93 4.20-5.40 [facility] CenterBhrxxncZUQRUV5020-46-06 06:54:00 Test Item Value Reference Range Interpretation Comments VLDL (test code = VLDL) 28 [facility] CenterXyzhhzyGXHYKF7018-05-26 06:54:00 Test Item Value Reference Range Interpretation Comments LDL (Calculated) (test code = LDL 133 (Calculated)) [facility] CenterHqlxfwgVOKLHY9570-29-87 06:54:00 Test Item Value Reference Range Interpretation Comments HDL (test code = HDL) 50 [facility] [id number] 06:54:00 Test Item Value Reference Range Interpretation Comments Trig (test code = Trig) 142 [facility] CenterEbfgiknKXPJHJ4152-74-20 06:54:00 Test Item Value Reference Range Interpretation Comments CHD Risk (test code = CHD Risk) 4.22 3.90-5.80 [facility] CenterDfyvynvQABURE6922-79-52 06:54:00 Test Item Value Reference Range Interpretation Comments Chol (test code = Chol) [facility] [id number] 06:54:00 Test Item Value Reference Range Interpretation Comments Hgb A1C (test code = Hgb A1C) 9.1 [facility]inteTHYROID [id number] 06:54:00 Test Item Value Reference Range Interpretation Comments TSH (test code = TSH) 1.850 0.360-3.740 [facility]2015-09-03 06:54:00 Test Item Value Reference Range Interpretation Comments eGFR (test code = eGFR) 56 [facility]2015-09-03 06:54:00 Test Item Value Reference Range Interpretation Comments Bili Total (test code = Bili Total) 0.3 0.2-1.3 [facility]2015-09-03 06:54:00 Test Item Value Reference Range Interpretation Comments ALT (test code = ALT) 37 See_Comment [Auto mated message] The system which ge nerated this result transmit frank reference range : <=65. The reference range was not used to interpr et this result as aimee l/abnormal. [facility] CenterHKS MediaGroupDAVIS REGIONAL MEDICAL [id number] 06:54:00 Test Item Value Reference Range Interpretation Comments Chloride Lvl (test code = Chloride Lvl) 106 95-109 [facility] CenterHKS MediaGroupDAVIS REGIONAL MEDICAL [id number] 06:54:00 Test Item Value Reference Range Interpretation Comments AST (test code = AST) 25 See_Comment [Auto mated message] The system which ge nerated this result transmit frank reference range : <=37. The reference range was not used to interpr et this result as aimee l/abnormal. [facility] CenterHKS MediaGroupDAVIS REGIONAL MEDICAL [id number] 06:54:00 Test Item Value Reference Range Interpretation Comments Alk Phos (test code = Alk Phos) 71 39-136 [facility] CenterZarpamos.com [id number] 06:54:00 Test Item Value Reference Range Interpretation Comments CO2 (test code = CO2) 25 24-32 [facility] CenterZarpamos.[facility] [id number] 06:54:00 Test Item Value Reference Range Interpretation Comments Calcium Lvl (test code = Calcium Lvl) 8.8 8.5-10.5 [facility] CenterHKS MediaGroupDAVIS REGIONAL MEDICAL [id number] 06:54:00 Test Item Value Reference Range Interpretation Comments Total Protein (test code = Total 6.8 6.4-8.4 Protein) [facility]2015-09-03 06:54:00 Test Item Value Reference Range Interpretation Comments Albumin Lvl (test code = Albumin Lvl) 3.0 3.5-5.0 [facility] CenterZarpamos.com [id number] 06:54:00 Test Item Value Reference Range Interpretation Comments Chloride Lvl (test code = Chloride Lvl) 106 95-109 [facility]2015-09-03 06:54:00 Test Item Value Reference Range Interpretation Comments Sodium Lvl (test code = Sodium Lvl) 138 135-145 [facility]2015-09-03 06:54:00 Test Item Value Reference Range Interpretation Comments Potassium Lvl (test code = Potassium 3.6 3.5-5.1 Lvl) [facility]2015-09-03 06:54:00 Test Item Value Reference Range Interpretation Comments BUN (test code = BUN) 25 7-22 [facility]2015-09-03 06:54:00 Test Item Value Reference Range Interpretation Comments Creatinine Lvl (test code = Creatinine 1.0 0.5-1.4 Lvl) [facility]2015-09-03 06:54:00 Test Item Value Reference Range Interpretation Comments Glucose Lvl (test code = Glucose Lvl) 222 70-99 [facility]2015-09-03 06:54:00 Test Item Value Reference Range Interpretation Comments A/G Ratio (test code = A/G Ratio) 0.8 0.7-1.6 [place] 720225-09-03 06:54:00 Test Item Value Reference Range Interpretation Comments AGAP (test code = AGAP) 10.6 10.0-20.0 [facility]2015-09-03 06:54:00 Test Item Value Reference Range Interpretation Comments B/C Ratio (test code = B/C Ratio) 25 6-25 [facility]2015-09-03 06:54:00 Test Item Value Reference Range Interpretation Comments Globulin (test code = Globulin) 3.8 2.0-4.0 [facility] LancasterEwgchkjCANAKNXUBH9656-05-03 06:54:00 Test Item Value Reference Range Interpretation Comments Lymphocytes # (test code = Lymphocytes 3.5 1.0-5.5 #) [facility] LancasterDuclgazZJAZNOSDTE6152-81-27 06:54:00 Test Item Value Reference Range Interpretation Comments Monocytes # (test code 1.5 See_Comment [Aut omated message] The = Monocytes #) system which generated this result tra nsmitted reference range : <=0.8. The reference r chanelle was not used to int erpret this result as normal/abnormal . [facility] LancasterXumikxuDPUZURFICY7701-69-37 06:54:00 Test Item Value Reference Range Interpretation Comments Eosinophils # (test code 0.2 See_Comment [A utomated message] The = Eosinophils #) system whic h generated this result tra nsmitted reference range : <=0.5. The reference r chanelle was not used to int erpret this result as normal/abnormal . [facility] LancasterSivcholRWOBIDRMDH2570-82-17 06:54:00 Test Item Value Reference Range Interpretation Comments Basophils # (test code 0.1 See_Comment [Aut omated message] The = Basophils #) system which generated this result tra nsmitted reference range : <=0.2. The reference r chanelle was not used to int erpret this result as normal/abnormal . [facility]2015-09-03 06:54:00 Test Item Value Reference Range Interpretation Comments Sodium Lvl (test code = Sodium Lvl) 138 135-145 [facility] LancasterGunxozuYORKJDHLPH0020-65-67 06:54:00 Test Item Value Reference Range Interpretation Comments Segs-Bands # (test code = Segs-Bands #) 5.9 1.5-8.1 [facility] LancasterMtxdmpnNXOZUYKTAQ6350-62-40 06:54:00 Test Item Value Reference Range Interpretation Comments Lymphocytes (test code = Lymphocytes) 31.4 20.0-40.0 [facility] LancasterObvlyfcJJCXLCXZVZ6791-82-31 06:54:00 Test Item Value Reference Range Interpretation Comments Basophils (test code = 0.7 See_Comment [Aut omated message] The Basophils) system which ge nerated this result tra nsmitted reference range : <=1.0. The reference r chanelle was not used to int erpret this result as normal/abnormal . [facility] LancasterMwzidyvUTXJRWXBXH9135-28-75 06:54:00 Test Item Value Reference Range Interpretation Comments Monocytes (test code = Monocytes) 13.2 2.0-12.0 [facility] LancasterDehydsuIHPDCEYTRD9422-04-14 06:54:00 Test Item Value Reference Range Interpretation Comments Segs (test code = Segs) 53.0 45.0-75.0 [facility] LancasterVshaslxVBWFBAKSCU2246-18-44 06:54:00 Test Item Value Reference Range Interpretation Comments Eosinophils (test code = 1.7 See_Comment [A utomated message] The Eosinophils) system which ge nerated this result tra nsmitted reference range : <=4.0. The reference r chanelle was not used to int erpret this result as normal/abnormal . [facility] LancasterHebqfjqLPAZFDIIFK9073-75-64 06:54:00 Test Item Value Reference Range Interpretation Comments MPV (test code = MPV) 9.5 7.4-10.4 [facility] LancasterWfmyjscFRCORIWDYX2998-10-04 06:54:00 Test Item Value Reference Range Interpretation Comments Platelet (test code = Platelet) 447 133-450 [facility] LancasterGosazfsPPIKZVENJO2576-24-99 06:54:00 Test Item Value Reference Range Interpretation Comments MCHC (test code = MCHC) 32.5 32.0-36.0 [facility] LancasterSfadsfwOAQBOOBARQ2865-32-82 06:54:00 Test Item Value Reference Range Interpretation Comments RDW (test code = RDW) 14.9 11.5-14.5 [facility] LancasterJhviajaLSTBBURJEX4625-43-90 06:54:00 Test Item Value Reference Range Interpretation Comments MCV (test code = MCV) 88.9 80.0-98.0 [facility] LancasterXlbwggkAARDDPMPVC2555-50-14 06:54:00 Test Item Value Reference Range Interpretation Comments MCH (test code = MCH) 28.9 pg 27.0-31.0 [facility]2015-09-03 06:54:00 Test Item Value Reference Range Interpretation Comments Potassium Lvl (test code = Potassium 3.6 3.5-5.1 Lvl) [facility]2015-09-03 06:54:00 Test Item Value Reference Range Interpretation Comments BUN (test code = BUN) 25 7-22 [facility]2015-09-03 06:54:00 Test Item Value Reference Range Interpretation Comments Creatinine Lvl (test code = Creatinine 1.0 0.5-1.4 Lvl) [facility]2015-09-03 06:54:00 Test Item Value Reference Range Interpretation Comments Glucose Lvl (test code = Glucose Lvl) 222 70-99 [facility]2015-09-03 06:54:00 Test Item Value Reference Range Interpretation Comments A/G Ratio (test code = A/G Ratio) 0.8 0.7-1.6 [facility]2015-09-03 06:54:00 Test Item Value Reference Range Interpretation Comments AGAP (test code = AGAP) 10.6 10.0-20.0 [facility]2015-09-03 06:54:00 Test Item Value Reference Range Interpretation Comments B/C Ratio (test code = B/C Ratio) 25 6-25 [facility]2015-09-03 06:54:00 Test Item Value Reference Range Interpretation Comments Globulin (test code = Globulin) 3.8 2.0-4.0 [facility] LancasterYvamtyqWKLAJYHEUA5010-75-41 06:54:00 Test Item Value Reference Range Interpretation Comments Lymphocytes # (test code = Lymphocytes 3.5 1.0-5.5 #) [facility] LancasterOckmfmfQZBPQVBUTX3310-63-59 06:54:00 Test Item Value Reference Range Interpretation Comments Monocytes # (test code 1.5 See_Comment [Aut omated message] The = Monocytes #) system which generated this result tra nsmitted reference range : <=0.8. The reference r chanelle was not used to int erpret this result as normal/abnormal . [facility] LancasterRqnnusrHTCCWMDHLV6656-13-91 06:54:00 Test Item Value Reference Range Interpretation Comments Eosinophils # (test code 0.2 See_Comment [A utomated message] The = Eosinophils #) system whic h generated this result tra nsmitted reference range : <=0.5. The reference r chanelle was not used to int erpret this result as normal/abnormal . [facility] LancasterKrbtjuvPXVBCCKKIB2918-79-74 06:54:00 Test Item Value Reference Range Interpretation Comments Basophils # (test code 0.1 See_Comment [Aut omated message] The = Basophils #) system which generated this result tra nsmitted reference range : <=0.2. The reference r chanelle was not used to int erpret this result as normal/abnormal . [facility] LancasterLrqkcynCWCGOWJSEG5704-07-49 06:54:00 Test Item Value Reference Range Interpretation Comments Segs-Bands # (test code = Segs-Bands #) 5.9 1.5-8.1 [facility] LancasterIdwcnkpKKRPLLESGI0385-51-82 06:54:00 Test Item Value Reference Range Interpretation Comments Lymphocytes (test code = Lymphocytes) 31.4 20.0-40.0 [facility] LancasterNiluezqSDKUVHAJCH0124-29-05 06:54:00 Test Item Value Reference Range Interpretation Comments Basophils (test code = 0.7 See_Comment [Aut omated message] The Basophils) system which ge nerated this result tra nsmitted reference range : <=1.0. The reference r chanelle was not used to int erpret this result as normal/abnormal . [facility] LancasterXrttjblMDYALPMUPO4160-57-26 06:54:00 Test Item Value Reference Range Interpretation Comments Monocytes (test code = Monocytes) 13.2 2.0-12.0 [facility] LancasterBnvvrpoZHNYTRPFTB9688-78-69 06:54:00 Test Item Value Reference Range Interpretation Comments Segs (test code = Segs) 53.0 45.0-75.0 [facility] LancasterAcyqbybGBAHSELEBB7124-38-42 06:54:00 Test Item Value Reference Range Interpretation Comments Eosinophils (test code = 1.7 See_Comment [A utomated message] The Eosinophils) system which ge nerated this result tra nsmitted reference range : <=4.0. The reference r chanelle was not used to int erpret this result as normal/abnormal . [facility] LancasterZbatohhCHYXKHIIWO2873-57-08 06:54:00 Test Item Value Reference Range Interpretation Comments MPV (test code = MPV) 9.5 7.4-10.4 [facility] LancasterNmsacwuOGLNZDLJAX5557-17-60 06:54:00 Test Item Value Reference Range Interpretation Comments Platelet (test code = Platelet) 447 133-450 [facility] LancasterNyzlatpKSXWGKNRHQ7522-65-70 06:54:00 Test Item Value Reference Range Interpretation Comments MCHC (test code = MCHC) 32.5 32.0-36.0 [facility] LancasterZjurdntEZNPLUOKHI6901-30-34 06:54:00 Test Item Value Reference Range Interpretation Comments RDW (test code = RDW) 14.9 11.5-14.5 [facility] LancasterAuaeoapEDLUMKSYHB2332-06-51 06:54:00 Test Item Value Reference Range Interpretation Comments MCV (test code = MCV) 88.9 80.0-98.0 [facility] LancasterWkdufhcRKUDCKRVUV4341-61-02 06:54:00 Test Item Value Reference Range Interpretation Comments MCH (test code = MCH) 28.9 pg 27.0-31.0 [facility] LancasterIbpgjgfGEKMRYJZLA3602-18-20 06:54:00 Test Item Value Reference Range Interpretation Comments WBC (test code = WBC) 11.1 3.7-10.4 [facility] LancasterHobetnwUKDCRTMGVB8422-45-92 06:54:00 Test Item Value Reference Range Interpretation Comments Hct (test code = Hct) 43.8 36.0-48.0 [facility]HjxnjazEMPLNQRRFL0203-35-05 06:54:00 Test Item Value Reference Range Interpretation Comments Hgb (test code = Hgb) 14.2 12.0-16.0 [facility] RegionEbjjgiyBJEMIDFHMF5999-85-89 06:54:00 Test Item Value Reference Range Interpretation Comments RBC (test code = RBC) 4.93 4.20-5.40 [facility] PointeTnavkrgUOJGZO5970-87-10 06:54:00 Test Item Value Reference Range Interpretation Comments VLDL (test code = VLDL) 28 [facility] PointeBpitphtHBRVIT2770-45-09 06:54:00 Test Item Value Reference Range Interpretation Comments LDL (Calculated) (test code = LDL 133 (Calculated)) [facility] PointeDaqfdzoIKAOKO3518-50-26 06:54:00 Test Item Value Reference Range Interpretation Comments HDL (test code = HDL) 50 [facility] PointeZirdnwrNZQYSJ9778-68-89 06:54:00 Test Item Value Reference Range Interpretation Comments Trig (test code = Trig) 142 [facility] PointeKvycimiVXQNCD4802-80-97 06:54:00 Test Item Value Reference Range Interpretation Comments CHD Risk (test code = CHD Risk) 4.22 3.90-5.80 [facility] PointeNehyfsjAVFZOV4761-28-26 06:54:00 Test Item Value Reference Range Interpretation Comments Chol (test code = Chol) [facility] OTPVDOJWH1486-33-01 06:54:00 Test Item Value Reference Range Interpretation Comments Hgb A1C (test code = Hgb A1C) 9.1 [facility] PointeTHYROID GTSJE9198-61-64 06:54:00 Test Item Value Reference Range Interpretation Comments TSH (test code = TSH) 1.850 0.360-3.740 [facility] PointeCHEM BLPAV2441-88-25 06:54:00 Test Item Value Reference Range Interpretation Comments eGFR (test code = eGFR) 56 [facility] PointeCHEM TUGDC7035-05-22 06:54:00 Test Item Value Reference Range Interpretation Comments Bili Total (test code = Bili Total) 0.3 0.2-1.3 [facility] PointeCHEM [id number] 06:54:00 Test Item Value Reference Range Interpretation Comments ALT (test code = ALT) 37 See_Comment [Auto mated message] The system which ge nerated this result transmit frank reference range : <=65. The reference range was not used to interpr et this result as aimee l/abnormal. [facility] [employer]2015-09-03 06:54:00 Test Item Value Reference Range Interpretation Comments AST (test code = AST) 25 See_Comment [Auto mated message] The system which ge nerated this result transmit frank reference range : <=37. The reference range was not used to interpr et this result as aimee l/abnormal. [facility] [employer] [id number] 06:54:00 Test Item Value Reference Range Interpretation Comments Alk Phos (test code = Alk Phos) 71 39-136 [facility] [employer]2015-09-03 06:54:00 Test Item Value Reference Range Interpretation Comments CO2 (test code = CO2) 25 24-32 [facility] [employer] [id number] 06:54:00 Test Item Value Reference Range Interpretation Comments Calcium Lvl (test code = Calcium Lvl) 8.8 8.5-10.5 [facility] [employer]2015-09-03 06:54:00 Test Item Value Reference Range Interpretation Comments Total Protein (test code = Total 6.8 6.4-8.4 Protein) [facility] [employer]2015-09-03 06:54:00 Test Item Value Reference Range Interpretation Comments Albumin Lvl (test code = Albumin Lvl) 3.0 3.5-5.0 [facility] [employer]2015-09-02 21:20:00 Test Item Value Reference Range Interpretation Comments Total CK (test code = Total CK) 75 12-191 [facility] [employer]2015-09-02 21:20:00 Test Item Value Reference Range Interpretation Comments Troponin-I (test code 0.05 See_Comment [Auto mated message] The = Troponin-I) system which g enerated this result transmit frank reference range : <=0.40. The reference r chanelle was not used to interpr et this result as aimee l/abnormal. [facility] [employer] Medical2015-09-02 21:20:00 Test Item Value Reference Range Interpretation Comments CK MB (test code = CK MB) 1.0 0.5-3.6 [facility]2015-09-02 21:20:00 Test Item Value Reference Range Interpretation Comments CK MB Index (test 1.3 See_Comment [Automate d message] The code = CK MB Index) system w [employer] generated this result transmit frank reference range : <=2.5. The reference range was not used to interpr et this result as aimee l/abnormal. [facility] CenterZarpamos.com [id number] 21:20:00 Test Item Value Reference Range Interpretation Comments eGFR (test code = eGFR) 42 [facility] CenterHKS MediaGroupDAVIS REGIONAL MEDICAL [id number] 21:20:00 Test Item Value Reference Range Interpretation Comments Creatinine Lvl (test code = Creatinine 1.0 0.5-1.4 Lvl) [facility]2015-09-02 21:20:00 Test Item Value Reference Range Interpretation Comments BUN (test code = BUN) 30 7-22 [facility]2015-09-02 21:20:00 Test Item Value Reference Range Interpretation Comments Glucose Lvl (test code = Glucose Lvl) 187 70-99 [facility] CenterHKS MediaGroupDAVIS REGIONAL MEDICAL [id number] 21:20:00 Test Item Value Reference Range Interpretation Comments CO2 (test code = CO2) 23 24-32 [facility] CenterZarpamos.com [id number] 21:20:00 Test Item Value Reference Range Interpretation Comments Sodium Lvl (test code = Sodium Lvl) 135 135-145 [facility] CenterHKS MediaGroupDAVIS REGIONAL MEDICAL [id number] 21:20:00 Test Item Value Reference Range Interpretation Comments Chloride Lvl (test code = Chloride Lvl) 103 95-109 [facility] CenterZarpamos.com [id number] 21:20:00 Test Item Value Reference Range Interpretation Comments Potassium Lvl (test code = Potassium 4.6 3.5-5.1 Lvl) [facility] CenterHKS MediaGroupDAVIS REGIONAL MEDICAL [id number] 21:20:00 Test Item Value Reference Range Interpretation Comments Calcium Lvl (test code = Calcium Lvl) 9.6 8.5-10.5 [facility] CenterZarpamos.com [id number] 21:20:00 Test Item Value Reference Range Interpretation Comments AGAP (test code = AGAP) 13.6 10.0-20.0 [facility]QrqixgaHEVSUTVTIQ9897-09-18 21:20:00 Test Item Value Reference Range Interpretation Comments PTT (test code = PTT) 24.4 s 22.9-35.8 [facility] LancasterYaynnthOXMXZRQCZX3408-59-57 21:20:00 Test Item Value Reference Range Interpretation Comments INR (test code = INR) 0.93 0.85-1.17 [facility] LancasterIuxyxupSPRFCNDFVB8195-55-48 21:20:00 Test Item Value Reference Range Interpretation Comments PT (test code = PT) 12.8 s 12.0-14.7 [facility] LancasterSsiiczlMURWULXUOQ1160-93-60 21:20:00 Test Item Value Reference Range Interpretation Comments MCH (test code = MCH) 28.9 pg 27.0-31.0 [facility] LancasterAfxiflwCCTZPRYBFC0422-66-16 21:20:00 Test Item Value Reference Range Interpretation Comments MCV (test code = MCV) 88.6 80.0-98.0 [facility] LancasterKofstovULHRXYNPZF5537-24-08 21:20:00 Test Item Value Reference Range Interpretation Comments Hct (test code = Hct) 46.4 36.0-48.0 [facility] LancasterVumabadOWKZRVVOCE3872-36-03 21:20:00 Test Item Value Reference Range Interpretation Comments MCHC (test code = MCHC) 32.7 32.0-36.0 [facility] LancasterFzrnxbyUPVPVKPXTV2798-31-76 21:20:00 Test Item Value Reference Range Interpretation Comments Hgb (test code = Hgb) 15.2 12.0-16.0 [facility] LancasterNleegthSDDCGKPWMY5180-26-73 21:20:00 Test Item Value Reference Range Interpretation Comments Platelet (test code = Platelet) 451 133-450 [facility] LancasterFhejolcVRLJYZEFCV9212-88-69 21:20:00 Test Item Value Reference Range Interpretation Comments RDW (test code = RDW) 14.7 11.5-14.5 [facility] LancasterOhybweeHNYGUGUFDQ3301-58-87 21:20:00 Test Item Value Reference Range Interpretation Comments MPV (test code = MPV) 9.2 7.4-10.4 [facility] LancasterWuimxduMFLRPEATZO6065-58-27 21:20:00 Test Item Value Reference Range Interpretation Comments WBC (test code = WBC) 13.3 3.7-10.4 [facility] LancasterQgbcgdwQZOVTLBGBO2897-80-48 21:20:00 Test Item Value Reference Range Interpretation Comments RBC (test code = RBC) 5.24 4.20-5.40 [facility] LancasterSnbmuncECTIFWUHDK1650-65-66 21:20:00 Test Item Value Reference Range Interpretation Comments Monocytes # (test code 1.6 See_Comment [Aut omated message] The = Monocytes #) system which generated this result tra nsmitted reference range : <=0.8. The reference r chanelle was not used to int erpret this result as normal/abnormal . [facility] LancasterHhorfipMBVIQVHLBH2744-74-62 21:20:00 Test Item Value Reference Range Interpretation Comments Lymphocytes # (test code = Lymphocytes 2.1 1.0-5.5 #) [facility] LancasterBgtjejbXMNBXNKATL1718-14-79 21:20:00 Test Item Value Reference Range Interpretation Comments Segs-Bands # (test code = Segs-Bands #) 9.4 1.5-8.1 [facility] LancasterYdgwfspPWNDTJZMTT2160-11-37 21:20:00 Test Item Value Reference Range Interpretation Comments Basophils (test code = 0.8 See_Comment [Aut omated message] The Basophils) system which ge nerated this result tra nsmitted reference range : <=1.0. The reference r chanelle was not used to int erpret this result as normal/abnormal . [facility] LancasterZavualuHRRCGJFYOQ2093-02-09 21:20:00 Test Item Value Reference Range Interpretation Comments Eosinophils (test code = 0.8 See_Comment [A utomated message] The Eosinophils) system which ge nerated this result tra nsmitted reference range : <=4.0. The reference r chanelle was not used to int erpret this result as normal/abnormal . [facility] LancasterHknactqLTKWGWXDXE8454-10-28 21:20:00 Test Item Value Reference Range Interpretation Comments Basophils # (test code 0.1 See_Comment [Aut omated message] The = Basophils #) system which generated this result tra nsmitted reference range : <=0.2. The reference r chanelle was not used to int erpret this result as normal/abnormal . [facility] LancasterAjbavqcSABKBNQVAB3244-64-72 21:20:00 Test Item Value Reference Range Interpretation Comments Eosinophils # (test code 0.1 See_Comment [A utomated message] The = Eosinophils #) system whic h generated this result tra nsmitted reference range : <=0.5. The reference r chanelle was not used to int erpret this result as normal/abnormal . [facility] LancasterQlhaariVGQHACUIXU6241-56-06 21:20:00 Test Item Value Reference Range Interpretation Comments Monocytes (test code = Monocytes) 12.0 2.0-12.0 [facility] CenterIbxdmjyRCVKMUIGUI6281-32-07 21:20:00 Test Item Value Reference Range Interpretation Comments Lymphocytes (test code = Lymphocytes) 15.7 20.0-40.0 [facility] CenterWzbjybrQAUXRICZKD2437-78-04 21:20:00 Test Item Value Reference Range Interpretation Comments Segs (test code = Segs) 70.7 45.0-75.0 [facility] CenterPartigi [id number] 21:20:00 Test Item Value Reference Range Interpretation Comments Total CK (test code = Total CK) 75 12-191 [facility]inteVisionary Pharmaceuticals [id number] 21:20:00 Test Item Value Reference Range Interpretation Comments Troponin-I (test code 0.05 See_Comment [Auto mated message] The = Troponin-I) system which g enerated this result transmit frank reference range : <=0.40. The reference r chanelle was not used to interpr et this result as aimee l/abnormal. [facility] CenterXention2015-09-02 21:20:00 Test Item Value Reference Range Interpretation Comments CK MB (test code = CK MB) 1.0 0.5-3.6 [facility] Poin[id number] 21:20:00 Test Item Value Reference Range Interpretation Comments CK MB Index (test 1.3 See_Comment [Automate d message] The code = CK MB Index) system w [facility] generated this result transmit frank reference range : <=2.5. The reference range was not used to interpr et this result as aimee l/abnormal. [facility] real5D [id number] 21:20:00 Test Item Value Reference Range Interpretation Comments eGFR (test code = eGFR) 42 [facility] [id number] 21:20:00 Test Item Value Reference Range Interpretation Comments Creatinine Lvl (test code = Creatinine 1.0 0.5-1.4 Lvl) [facility] CenterZarpamos.com [id number] 21:20:00 Test Item Value Reference Range Interpretation Comments BUN (test code = BUN) 30 7-22 [facility] CenterZarpamos.[facility] [id number] 21:20:00 Test Item Value Reference Range Interpretation Comments Glucose Lvl (test code = Glucose Lvl) 187 70-99 [facility]2015-09-02 21:20:00 Test Item Value Reference Range Interpretation Comments CO2 (test code = CO2) 23 24-32 [facility]2015-09-02 21:20:00 Test Item Value Reference Range Interpretation Comments Sodium Lvl (test code = Sodium Lvl) 135 135-145 [facility]2015-09-02 21:20:00 Test Item Value Reference Range Interpretation Comments Chloride Lvl (test code = Chloride Lvl) 103 95-109 [facility]2015-09-02 21:20:00 Test Item Value Reference Range Interpretation Comments Potassium Lvl (test code = Potassium 4.6 3.5-5.1 Lvl) [facility]2015-09-02 21:20:00 Test Item Value Reference Range Interpretation Comments Calcium Lvl (test code = Calcium Lvl) 9.6 8.5-10.5 [facility]2015-09-02 21:20:00 Test Item Value Reference Range Interpretation Comments AGAP (test code = AGAP) 13.6 10.0-20.0 [facility] LancasterOzkyeuzALCERSCRVE0379-12-48 21:20:00 Test Item Value Reference Range Interpretation Comments PTT (test code = PTT) 24.4 s 22.9-35.8 [facility] LancasterEezdzrvTOKRYOIKIL7745-11-68 21:20:00 Test Item Value Reference Range Interpretation Comments INR (test code = INR) 0.93 0.85-1.17 [facility] LancasterZkmmveuJXSUBRRKZZ2051-65-89 21:20:00 Test Item Value Reference Range Interpretation Comments PT (test code = PT) 12.8 s 12.0-14.7 [facility] LancasterRlbmkloLLPOTBQTZO6199-02-87 21:20:00 Test Item Value Reference Range Interpretation Comments MCH (test code = MCH) 28.9 pg 27.0-31.0 [facility] LancasterCtubhffAXNDLGXRFR5715-09-50 21:20:00 Test Item Value Reference Range Interpretation Comments MCV (test code = MCV) 88.6 80.0-98.0 [facility] LancasterNnecaeeBRPQIHANLV4459-69-69 21:20:00 Test Item Value Reference Range Interpretation Comments Hct (test code = Hct) 46.4 36.0-48.0 [facility] LancasterKlsymstFPHSZAKNEL8919-79-56 21:20:00 Test Item Value Reference Range Interpretation Comments MCHC (test code = MCHC) 32.7 32.0-36.0 [facility] LancasterViikhadRLJGXMJSEK1620-47-04 21:20:00 Test Item Value Reference Range Interpretation Comments Hgb (test code = Hgb) 15.2 12.0-16.0 [facility] LancasterYmpzfpnSHDNMXCBTI9271-23-27 21:20:00 Test Item Value Reference Range Interpretation Comments Platelet (test code = Platelet) 451 133-450 [facility] La[id number] 21:20:00 Test Item Value Reference Range Interpretation Comments RDW (test code = RDW) 14.7 11.5-14.5 [facility] LancasterWogajtdRCJVYCATAM1810-12-45 21:20:00 Test Item Value Reference Range Interpretation Comments MPV (test code = MPV) 9.2 7.4-10.4 [facility] LancasterKicwrjcSQIZGGZAZR2360-67-43 21:20:00 Test Item Value Reference Range Interpretation Comments WBC (test code = WBC) 13.3 3.7-10.4 [facility] LancasterMazgdawSNVJWKANWO5846-79-02 21:20:00 Test Item Value Reference Range Interpretation Comments RBC (test code = RBC) 5.24 4.20-5.40 [facility] LancasterNlnlocjBDRFFQZCVC0299-15-11 21:20:00 Test Item Value Reference Range Interpretation Comments Monocytes # (test code 1.6 See_Comment [Aut omated message] The = Monocytes #) system which generated this result tra nsmitted reference range : <=0.8. The reference r chanelle was not used to int erpret this result as normal/abnormal . [facility] LancasterNjrdymuPIMPWTSMWM9385-73-24 21:20:00 Test Item Value Reference Range Interpretation Comments Lymphocytes # (test code = Lymphocytes 2.1 1.0-5.5 #) [facility] LancasterRzvwopjFSSQAPXQYE7371-95-96 21:20:00 Test Item Value Reference Range Interpretation Comments Segs-Bands # (test code = Segs-Bands #) 9.4 1.5-8.1 [facility] LancasterVhoacxzHJAKFLTMVY5439-25-04 21:20:00 Test Item Value Reference Range Interpretation Comments Basophils (test code = 0.8 See_Comment [Aut omated message] The Basophils) system which ge nerated this result tra nsmitted reference range : <=1.0. The reference r chanelle was not used to int erpret this result as normal/abnormal . [facility] LancasterPgdwgbsYLDILPOVRW3301-66-13 21:20:00 Test Item Value Reference Range Interpretation Comments Eosinophils (test code = 0.8 See_Comment [A utomated message] The Eosinophils) system which ge nerated this result tra nsmitted reference range : <=4.0. The reference r chanelle was not used to int erpret this result as normal/abnormal . [facility] LancasterOisvblcTYSSGMWFZU8189-45-56 21:20:00 Test Item Value Reference Range Interpretation Comments Basophils # (test code 0.1 See_Comment [Aut omated message] The = Basophils #) system which generated this result tra nsmitted reference range : <=0.2. The reference r chanelle was not used to int erpret this result as normal/abnormal . [facility] LancasterGtnolrxKYFVMGGTTS1299-28-17 21:20:00 Test Item Value Reference Range Interpretation Comments Eosinophils # (test code 0.1 See_Comment [A utomated message] The = Eosinophils #) system whic h generated this result tra nsmitted reference range : <=0.5. The reference r chanelle was not used to int erpret this result as normal/abnormal . [facility] LancasterWrsltxjWIPQWYUDWS1831-86-68 21:20:00 Test Item Value Reference Range Interpretation Comments Monocytes (test code = Monocytes) 12.0 2.0-12.0 [facility] LancasterDzizqpfYKCUEZXACI2887-43-27 21:20:00 Test Item Value Reference Range Interpretation Comments Lymphocytes (test code = Lymphocytes) 15.7 20.0-40.0 [facility] LancasterBvnbjwbSUKSLXVFPD5950-99-69 21:20:00 Test Item Value Reference Range Interpretation Comments Segs (test code = Segs) 70.7 45.0-75.0 [facility]
[2022-06-25] MEDS ORDERED: ASPIRIN 81 MG CHEWABLE TABLET ONE (15:48)
[2022-06-25] MEDS ORDERED: NITROGLYCERIN 1 GM PKT TD ONE ×2 (15:48→18:01)
[2022-06-25] MEDS ORDERED: ONDANSETRON 4 MG/2 ML VIAL ONE (15:49)
--- NOTE | 2022-06-25 15:55 | RAD REPORT ---
EXAM DESCRIPTION: RAD - Chest Single View - 06/25/2022 3:47 pm CLINICAL HISTORY: CHEST PAIN COMPARISON: Chest Single View dated 03/25/2021; Chest Single View dated 03/22/2021; Chest Single View dated 12/29/2020; Chest Single View dated 12/29/2020 FINDINGS: Lines: None. Lungs: Diffuse prominence of the pulmonary interstitium. Pleural: No significant pleural effusions or pneumothorax. Cardiac: Cardiomegaly. Pacemaker. Sternotomy. Mediastinum: Within normal limits. Bones: No acute fractures. Other: None IMPRESSION: Findings likely representing mild interstitial edema.
[2022-06-25 16:13] LABS: Hematocrit 39.4 % (36.0-45.0); Lymphocytes % 19.9 % (15.3-44.8); MCV 120.2 fL (80-100); MPV 10.1 fL (7.6-11.3); RBC Red Blood Cell Count 3.28 M/uL (3.86-4.86)
[2022-06-25 16:25] LABS: Protime INR 1.5
[2022-06-25 16:49] LABS: Albumin 3.1 g/dL (3.4-5.0); Bilirubin Direct 0.1 mg/dL (0-0.2); Bilirubin Total 0.4 mg/dL (0.2-1.0); Protein, Total 7.5 g/dL (6.4-8.2)
[2022-06-25 17:11] LABS: Magnesium 1.9 mg/dL (1.6-2.4); Potassium 4.3 mEq/L (3.5-5.1)
--- NOTE | 2022-06-25 17:18 | ER ---
Nurse's Notes [facility] Name: Arminda Rodriguez Age: 82 yrs Sex: Female : 1940 Arrival Date: 06/25/2022 Time: 15:09 Bed 2 Private MD: Diagnosis: Subsequent non-ST elevation (NSTEMI) myocardial infarction;Unspecified combined systolic (congestive) and diastolic (congestive) heart failure Presentation: 06/25 15:22 Chief complaint: EMS states: pt c/o chest pain while at Dr. mojica's office, [facility]. iw Coronavirus screen: At this time, the client does not indicate any symptoms associated with coronavirus-19. Ebola Screen: Patient negative for fever greater than or equal to 101.5 degrees Fahrenheit, and additional compatible Ebola Virus Disease symptoms Patient denies exposure to infectious person. Patient denies travel to an Ebola-affected area in the 21 days before illness onset. No symptoms or risks identified at this time. Initial Sepsis Screen: Does the patient meet any 2 criteria? No. Patient's initial sepsis screen is negative. Does the patient have a suspected source of infection? Yes:. Risk Assessment: Do you want to hurt yourself or someone else? Patient reports no desire to harm self or others. Onset of symptoms was June 25, 2022. 15:22 Method Of Arrival: EMS: [facility] iw 15:22 Acuity: GORDO 3 iw Historical: - Allergies: 15:25 Amoxicillin; iw 15:26 ANGIOTENSIN RECEPTOR ANTAGONIST; iw 15:26 Byetta; iw 15:26 Demerol; iw 15:26 Hydrocodone-Acetaminophen; iw 15:26 Januvia; iw 15:26 metformin; iw 15:27 Niaspan; iw 15:27 QUINOLONES; iw 15:27 Kayfatp-TGP-ShI Reductase Inhibitors; iw 15:27 Tetanus Immune Globulin; iw 15:27 Zetia; iw - Home Meds: 15:29 atorvastatin 40 mg oral tablet daily [Active]; diclofenac sodium 1 % topical gel 4 iw times per day [Active]; Eliquis 5 mg Oral tab 1 tab 2 times per day [Active]; fluocinolone 0.01 % Topical oil daily [Active]; furosemide 20 mg Oral tablet daily [Active]; Hydrea 500 mg oral capsule daily [Active]; hydroxyzine pamoate 25 mg Oral capsule every 8 hours [Active]; Levemir FlexPen 100 unit/mL (3 mL) subcutaneous Insulin Pen 25 units at breakfast [Active]; 15:49 Levemir FlexPen 100 unit/mL (3 mL) subcutaneous Insulin Pen 10 units before supper iw [Active]; 16:03 meclizine 25 mg Oral tablet 3 times per day [Active]; naltrexone oral 1.5 mg PO Daily iw for a week followed by two PO daily [Active]; Novolog U-100 Insulin aspart 100 unit/mL Sub-Q solution 15 units before meals [Active]; oxybutynin chloride 5 mg Oral tablet every 12 hours [Active]; pantoprazole 40 mg oral granules delayed release for susp packet daily [Active]; pregabalin 75 mg Oral capsule every 12 hours [Active]; Pyridium 200 mg Oral tablet 3 times per day [Active]; ropinirole 0.5 mg oral tablet daily [Active]; spironolactone 25 mg Oral tablet daily [Active]; - Immunization history:: Adult Immunizations up to date. - Social history:: Smoking status: Patient denies any tobacco usage or history of. Screenin:36 Abuse screen: Denies threats or abuse. Nutritional screening: No deficits noted. ap3 Tuberculosis screening: No symptoms or risk factors identified. 16:14 [facility] ED Fall Risk Assessment (Adult) History of falling in the last 3 months, sg5 including since admission No falls in past 3 months (0 pts). Assessment: 15:54 Pain: Pain began gradually, today. ap3 16:05 General: Appears in no apparent distress. Behavior is calm, cooperative. Pain: ap3 Complains of pain in chest Pain does not radiate. Neuro: Level of Consciousness is awake, alert, obeys commands, Oriented to person, place, time, situation. Cardiovascular: Reports chest pain. Respiratory: Airway is patent Respiratory effort is even, unlabored, Respiratory pattern is regular, symmetrical. EENT: patient is hard of hearing. 16:14 General: Appears in no apparent distress. comfortable, Behavior is calm, cooperative, sg5 appropriate for age. Pain: Complains of pain in chest Pain does not radiate. Pain currently is 5 out of 10 on a pain scale. Neuro: No deficits noted. Level of Consciousness is awake, alert, obeys commands, Oriented to person, place, time, situation, Appropriate for age. Cardiovascular: Reports chest pain, Heart tones S1 S2 present Capillary refill < 3 seconds. Respiratory: Airway is patent Trachea midline Respiratory effort is even, unlabored, Respiratory pattern is regular, symmetrical, Breath sounds are clear bilaterally. GI: No deficits noted. No signs and/or symptoms were reported involving the gastrointestinal system. : No deficits noted. No signs and/or symptoms were reported regarding the genitourinary system. EENT: No deficits noted. Derm: No deficits noted. No signs and/or symptoms reported regarding the dermatologic system. Musculoskeletal: No deficits noted. No signs and/or symptoms reported regarding the musculoskeletal system. 19:00 Reassessment: Patient appears in no apparent distress at this time. Patient and/or jb4 family updated on plan of care and expected duration. Pain level reassessed. Patient is alert, oriented x 3, equal unlabored respirations, skin warm/dry/pink. 20:00 Reassessment: Patient appears in no apparent distress at this time. Patient and/or jb4 family updated on plan of care and expected duration. Pain level reassessed. Patient is alert, oriented x 3, equal unlabored respirations, skin warm/dry/pink. 21:23 Reassessment: Patient appears in no apparent distress at this time. Patient and/or jb4 family updated on plan of care and expected duration. Pain level reassessed. Patient is alert, oriented x 3, equal unlabored respirations, skin warm/dry/pink. Vital Signs: 15:54 BP 108 / 72; Pulse 58; Pulse Ox 100% on R/A; ap3 16:09 BP 120 / 65; Pulse 60; Pulse Ox 98% on R/A; ap3 17:10 BP 93 / 82; Pulse 59; Resp 16; Pulse Ox 98% on R/A; Pain 4/10; sg5 19:15 BP 154 / 97; Pulse 60; Resp 16; Pulse Ox 99% on R/A; jb4 20:45 BP 145 / 79; Pulse 59; Resp 16; Pulse Ox 97% on R/A; jb4 21:09 BP 169 / 81; Pulse 59; Resp 17; Pulse Ox 98% ; aa9 17:10 Pain Scale: Adult sg5 ED Course: 15:12 Patient arrived in ED. bd 15:16 Jake Mahoney PA is PHCP. cp 15:16 Jake Espino MD is Attending Physician. cp 15:25 Triage completed. iw 15:26 EKG done, by ED staff, reviewed by Jake ARMENDARIZ. ap3 15:26 Patient maintains SpO2 saturation greater than 95% on room air. ap3 15:26 Arm band placed on left wrist. ap3 15:28 Patient has correct armband on for positive identification. Placed in gown. Bed in low ap3 position. Call light in reach. Side rails up X2. Adult w/ patient. hot metal mixer operator helper on. Pulse ox on. NIBP on. Door closed. Noise minimized. Warm blanket given. 15:44 Jaylyn Tang, LEILA is Primary Nurse. sg5 15:49 XRAY Chest (1 view) In Process Unspecified. EDMS 16:12 Inserted saline lock: 22 gauge in left antecubital area, using aseptic technique. sg5 ,using aseptic technique. difusex Blood collected. 16:13 Maintain EMS IV. Dressing intact. Good blood return noted. Site clean \T\ dry. Gauge \T\ sg 5 site: 24g right wrist. 17:17 Frederick Mojica MD is Hospitalizing Provider. cp 19:42 role handed off by Veronica Bishop, LEILA sp4 21:23 No provider procedures requiring assistance completed. Patient admitted, IV remains in jb4 place. Administered Medications: 15:50 Drug: Nitroglycerin Transdermal Ointment 2 % 0.5 inches Route: Transdermal; Site: sg5 anterior chest wall; 15:50 Drug: Ondansetron IVP 4 mg Route: IVP; Site: right hand; sg5 15:51 Drug: Aspirin PO Chewable Tablet 324 mg Route: PO; sg5 17:55 Drug: Nitroglycerin Transdermal Ointment 2 % 0.5 inches Route: Transdermal; Site: sg5 anterior chest wall; 19:03 Drug: Clopidogrel PO 75 mg Route: PO; ap3 Medication: 15:36 VIS not applicable for this client. ap3 Outcome: 17:17 Decision to Hospitalize by Provider. cp 21:23 Admitted to Tele accompanied by tech, via stretcher, room 402. jb4 21:23 Condition: stable 21:23 Discharge instructions given to patient, family, Instructed on the need for admit, Demonstrated understanding of instructions. 21:23 Patient left the ED. jb4 Signatures: Dispatcher [employer] Laisha Bertrand Irene, RN RN iw Jake Mahoney PA PA cp Bryson, James, RN RN jb4 Veronica Bishop RN RN ap3 Martha De Jesus RN RN aa9 Sin Gray MD MD sp4 Jaylyn Tang, RN RN sg5
--- NOTE | 2022-06-25 17:18 | EDPHYS ---
Physician Documentation [facility] Name: Arminda Rodriguez Age: 82 yrs Sex: Female : 1940 Arrival Date: 06/25/2022 Time: 15:09 Bed 2 Private MD: ED Physician Jake Espino HPI: 06/25 15:30 This 82 yrs old Female presents to ER via EMS with complaints of Chest Pain. cp 15:30 The patient or guardian reports chest pain that is located primarily in the substernal cp area. 15:30 Onset: just prior to arrival, while at office of DR Gomez. The pain does not radiate. cp Associated signs and symptoms: Pertinent positives: shortness of breath, Pertinent negatives: abdominal pain, cough, diaphoresis, lower extremity pain, lower extremity swelling. The chest pain is described as similar to pain with heart attack. Duration: The patient or guardian reports a single episode, that is still ongoing, and unchanged. Patient with history of quadruple bypass. Reports sudden onset of chest pain while at DR Gomez's office. Patient reports pain is similar to when she had a heart attack. Historical: - Allergies: 15:25 Amoxicillin; iw 15:26 ANGIOTENSIN RECEPTOR ANTAGONIST; iw 15:26 Byetta; iw 15:26 Demerol; iw 15:26 Hydrocodone-Acetaminophen; iw 15:26 Januvia; iw 15:26 metformin; iw 15:27 Niaspan; iw 15:27 QUINOLONES; iw 15:27 Kmivhhg-WET-XlG Reductase Inhibitors; iw 15:27 Tetanus Immune Globulin; iw 15:27 Zetia; iw - Home Meds: 15:29 atorvastatin 40 mg oral tablet daily [Active]; diclofenac sodium 1 % topical gel 4 iw times per day [Active]; Eliquis 5 mg Oral tab 1 tab 2 times per day [Active]; fluocinolone 0.01 % Topical oil daily [Active]; furosemide 20 mg Oral tablet daily [Active]; Hydrea 500 mg oral capsule daily [Active]; hydroxyzine pamoate 25 mg Oral capsule every 8 hours [Active]; Levemir FlexPen 100 unit/mL (3 mL) subcutaneous Insulin Pen 25 units at breakfast [Active]; 15:49 Levemir FlexPen 100 unit/mL (3 mL) subcutaneous Insulin Pen 10 units before supper iw [Active]; 16:03 meclizine 25 mg Oral tablet 3 times per day [Active]; naltrexone oral 1.5 mg PO Daily iw for a week followed by two PO daily [Active]; Novolog U-100 Insulin aspart 100 unit/mL Sub-Q solution 15 units before meals [Active]; oxybutynin chloride 5 mg Oral tablet every 12 hours [Active]; pantoprazole 40 mg oral granules delayed release for susp packet daily [Active]; pregabalin 75 mg Oral capsule every 12 hours [Active]; Pyridium 200 mg Oral tablet 3 times per day [Active]; ropinirole 0.5 mg oral tablet daily [Active]; spironolactone 25 mg Oral tablet daily [Active]; - Immunization history:: Adult Immunizations up to date. - Social history:: Smoking status: Patient denies any tobacco usage or history of. ROS: 15:33 Constitutional: Negative for body aches, chills, fever, poor PO intake. cp 15:33 Cardiovascular: Positive for chest pain. cp 15:33 Respiratory: Positive for shortness of breath, at rest. 15:33 Abdomen/GI: Negative for abdominal pain, vomiting, diarrhea, constipation. 15:33 Eyes: Negative for injury, pain, redness, and discharge. cp 15:33 ENT: Negative for drainage from ear(s), ear pain, sore throat, difficulty swallowing, difficulty handling secretions. 15:33 Back: Negative for pain at rest, pain with movement. 15:33 Neuro: Negative for altered mental status, dizziness, headache, numbness, syncope, weakness. 15:33 All other systems are negative. cp Exam: 15:29 ECG was reviewed by the Attending Physician. cp 15:37 Constitutional: The patient appears in no acute distress, alert, awake, cp non-diaphoretic, non-toxic, well developed, well nourished, obese, uncomfortable. 15:37 Head/Face: Normocephalic, atraumatic. cp 15:37 Eyes: Periorbital structures: appear normal, Conjunctiva: normal, no exudate, no cp injection, Sclera: no appreciated abnormality, Lids and lashes: appear normal, bilaterally. 15:37 ENT: External ear(s): are unremarkable, Nose: is normal, Mouth: Lips: moist, Oral cp mucosa: pink and intact, moist, Posterior pharynx: is normal, airway is patent, no erythema, no exudate. 15:37 Neck: ROM/movement: is normal, is supple, without pain, no range of motions limitations, no meningismus. 15:37 Chest/axilla: Inspection: normal. 15:37 Cardiovascular: Rate: normal, Rhythm: regular, Edema: ankle edema, that is mild, JVD: is not appreciated. 15:37 Respiratory: the patient does not display signs of respiratory distress, Respirations: normal, no use of accessory muscles, no retractions, labored breathing, is not present, Breath sounds: bronchial sounds, that are mild, are heard diffusely. 15:37 Abdomen/GI: Inspection: obese Bowel sounds: active, all quadrants, Palpation: abdomen is soft and non-tender, in all quadrants. 15:37 Back: pain, is absent, ROM is normal. 15:37 Neuro: Orientation: to person, place \T\ time. Mentation: is normal, Motor: moves all fours, strength is normal, Sensation: is normal. Vital Signs: 15:54 BP 108 / 72; Pulse 58; Pulse Ox 100% on R/A; ap3 16:09 BP 120 / 65; Pulse 60; Pulse Ox 98% on R/A; ap3 17:10 BP 93 / 82; Pulse 59; Resp 16; Pulse Ox 98% on R/A; Pain 4/10; sg5 19:15 BP 154 / 97; Pulse 60; Resp 16; Pulse Ox 99% on R/A; jb4 20:45 BP 145 / 79; Pulse 59; Resp 16; Pulse Ox 97% on R/A; jb4 21:09 BP 169 / 81; Pulse 59; Resp 17; Pulse Ox 98% ; aa9 17:10 Pain Scale: Adult sg5 MDM: 15:18 Patient medically screened. staci 16:00 Differential diagnosis: abnormal EKG, acute myocardial infarction, pleurisy, pneumonia, cp pneumothorax, stable angina, thoracic aortic disection, unstable angina. 17:20 Data reviewed: vital signs, nurses notes, lab test result(s), EKG, radiologic studies, cp plain films. 17:20 The patient was given aspirin in the Emergency Department. Consideration of cp Admission/Observation Patient was admitted/placed on observation. I considered the following discharge prescriptions or medication management in the emergency department Medications were administered in the Emergency Department. See MAR. Independent interpretation of the following test(s) in the Emergency Department EKG: See my EKG interpretation above X-Ray: My interpretation is chest image negative for focal pneumonia. Care significantly affected by the following chronic conditions: Congestive Heart Failure, Obesity. 18:05 Management of patient was discussed with the following: Shrimp Packer: DR Harvey who will cp consult and requests Eliquis medication be held until further notice. Primary Care Provider: DR Gomez who will admit patient after discussion of today's results. 06/25 15:23 Order name: Basic Metabolic Panel; Complete Time: 17:13 cp 06/25 17:13 Interpretation: Normal except: GLUC 177; BUN 60; CRE 2.26; GFR 21. cp 06/25 15:23 Order name: CBC with Diff; Complete Time: 16:54 cp 06/25 16:54 Interpretation: Normal except: RBC 3.28; MCV 120.2; MCH 40.5; MN% 18.4. cp 06/25 15:23 Order name: LFT's; Complete Time: 17:13 cp 06/25 17:16 Interpretation: Normal except: ALB 3.1; GLOB 4.4; A/G 0.7. cp 06/25 15:23 Order name: Magnesium; Complete Time: 17:13 cp 06/25 15:23 Order name: NT PRO-BNP; Complete Time: 17:13 cp 06/25 17:16 Interpretation: Abnormal: NT PRO-BNP 1332. cp 06/25 15:23 Order name: PT-INR; Complete Time: 16:29 cp 06/25 16:29 Interpretation: Reviewed. cp 06/25 15:23 Order name: Troponin HS; Complete Time: 17:13 cp 06/25 17:16 Interpretation: Abnormal: Troponin HS 310.0. cp 06/25 18:20 Order name: Basic Metabolic Panel EDMS 06/25 18:21 Order name: Basic Metabolic Panel EDMS 06/25 18:21 Order name: CBC with Automated Diff EDMS 06/25 18:21 Order name: CBC with Automated Diff EDMS 06/25 18:21 Order name: Troponin High Sensitivity EDMS 06/25 18:21 Order name: Troponin High Sensitivity EDMS 06/25 18:21 Order name: Troponin High Sensitivity EDMS 06/25 18:21 Order name: Troponin High Sensitivity EDMS 06/25 21:16 Order name: Glucose, Ancillary Testing EDOK 06/25 15:23 Order name: XRAY Chest (1 view); Complete Time: 15:59 06/25 15:59 Interpretation: Report review. 06/25 15:23 Order name: EKG; Complete Time: 15:24 06/25 18:20 Order name: 60g Consistent Carbohydrate (ADA 1800/2000) EDOK 06/25 18:20 Order name: EKG Electrocardiogram EDOK 06/25 18:20 Order name: EKG Electrocardiogram EDOK 06/25 18:20 Order name: EKG Electrocardiogram EDOK 06/25 18:20 Order name: EKG Electrocardiogram EDOK 06/25 15:23 Order name: Cardiac monitoring; Complete Time: 15:26 06/25 15:23 Order name: EKG - Nurse/Tech; Complete Time: 15:26 06/25 15:23 Order name: IV Saline Lock; Complete Time: 15:26 06/25 15:23 Order name: Labs collected and sent; Complete Time: 16:11 06/25 15:23 Order name: O2 Per Protocol; Complete Time: 15:26 06/25 15:23 Order name: O2 Sat Monitoring; Complete Time: 15:26 EC:29 Rate is 62 beats/min. Rhythm is regular. CO interval is normal. QRS interval is normal. cp QT interval is normal. T waves are Inverted in lead aVR. Interpreted by me. Reviewed by me. Administered Medications: 15:50 Drug: Nitroglycerin Transdermal Ointment 2 % 0.5 inches Route: Transdermal; Site: sg5 anterior chest wall; 15:50 Drug: Ondansetron IVP 4 mg Route: IVP; Site: right hand; sg5 15:51 Drug: Aspirin PO Chewable Tablet 324 mg Route: PO; sg5 17:55 Drug: Nitroglycerin Transdermal Ointment 2 % 0.5 inches Route: Transdermal; Site: sg5 anterior chest wall; 19:03 Drug: Clopidogrel PO 75 mg Route: PO; ap3 Disposition: 06/26 08:38 Co-signature as Attending Physician, Jake Espino MD I agree with the assessment and staci plan of care. Disposition Summary: 06/25/22 17:17 Hospitalization Ordered Hospitalization Status: Inpatient Admission cp Provider: Patricia, Frederick cp Location: Telemetry/MedSurg (Inpatient) cp Condition: Stable cp Problem: new cp Symptoms: have improved cp Bed/Room Type: Standard cp Room Assignment: 402(06/25/22 20:42) cg Diagnosis - Subsequent non-ST elevation (NSTEMI) myocardial infarction cp - Unspecified combined systolic (congestive) and diastolic (congestive) heart failure cp Forms: - Medication Reconciliation Form cp - SBAR form cp Signatures: Dispatcher [employer] EDJake Joyce MD MD cha Williams, Irene, RN RN iw Page, Corey, PA PA cp Guillermina Bradley RN RN cg Prokisch, Amanda, RN RN ap3 Jaylyn Tang RN RN sg5 Corrections: (The following items were deleted from the chart) 06/25 20:42 17:17 cp cg
[2022-06-25] MEDS ORDERED: ONDANSETRON 4 MG/2 ML VIAL IV PRN (18:12)
[2022-06-25] MEDS ORDERED: CLOPIDOGREL 75 MG TABLET ONE (19:01)
[2022-06-25] MEDS ORDERED: GLUCAGON 1 MG/VIAL IM PRN ×2 (19:52→22:01)
[2022-06-25] MEDS ORDERED: D50W 25 GM/50 ML SYRINGE IV PRN ×2 (19:52→22:01)
[2022-06-25] MEDS ORDERED: D10W 125 ML IV PRN ×2 (20:12→22:16)
[2022-06-25] MEDS: INSULIN -REGULAR HUMAN 50 UNIT/0.5 ML ML SQ SCH (21:00)
[2022-06-25] MEDS ORDERED: DICLOFENAC SODIUM TOP PRN (22:01)
[2022-06-25] MEDS ORDERED: NYSTATIN PWDR 100000 UNIT/GM TOP PRN (22:01)
[2022-06-25 22:04] VITALS: BMI 47.0
[2022-06-25] MEDS ORDERED: hydrOXYzine HCL 25 MG TAB PO PRN (22:19)
[2022-06-25] MEDS ORDERED: MECLIZINE HCL 12.5 MG TAB PO PRN (22:22)
[2022-06-26 02:47] LABS: Absolute Lymphocytes (CBC) 1.2 K/uL (0.7-4.9); Hematocrit 37.8 % (36.0-45.0); Lymphocytes % 23.9 % (15.3-44.8); MCV 120.4 fL (80-100); MPV 10.1 fL (7.6-11.3); RBC Red Blood Cell Count 3.14 M/uL (3.86-4.86)
[2022-06-26 02:57] LABS: Potassium 4.3 mEq/L (3.5-5.1)
[2022-06-26 03:44] LABS: Blood Morphology Comment NOTED (NOT SEEN); Macrocytosis 2+; Platelet Estimate ADEQ; White Blood Cell Scan OK (OK)
[2022-06-26] MEDS: INSULIN -REGULAR HUMAN 50 UNIT/0.5 ML ML SQ SCH ×7 (07:30→21:00)
[2022-06-26] MEDS: CLOPIDOGREL 75 MG TABLET PO SCH (07:49)
[2022-06-26] MEDS: VITAMIN D 1000 UNIT TAB PO SCH (07:49)
[2022-06-26] MEDS: ATORVASTATIN 40 MG TAB PO SCH (07:49)
[2022-06-26] MEDS: PANTOPRAZOLE 40MG TABLET PO SCH (07:49)
[2022-06-26] MEDS: ASPIRIN 81 MG CHEWABLE TABLET PO SCH (07:50)
[2022-06-26] MEDS: PREGABALIN 75 MG CAP PO SCH ×2 (07:50→22:59)
[2022-06-26] MEDS: ROPINIROLE HCL 0.25 MG TAB PO SCH (07:50)
[2022-06-26] MEDS: oxyBUTYnin chloride 5 MG TAB PO SCH ×2 (07:51→21:11)
[2022-06-26] MEDS: MAGNESIUM OXIDE 400 MG TAB FT SCH (07:52)
[2022-06-26] MEDS: SPIRONOLACTONE 25 MG TABLET PO SCH (07:52)
--- NOTE | 2022-06-26 08:29 | EKG ---
Test Date: 2022-06-25 Test Time: 15:23:14 Vocational Technical Education Teacher: ALP MEASUREMENT RESULTS: Intervals: Rate: 62 W[place]: 186 QRSD: 98 QT: 438 QTc: 444 [place]: P: 13 [place]: 186 QRS: -16 T: 53 INTERPRETIVE STATEMENTS: Electronic atrial pacemaker Compared to ECG 03/24/2021 16:30:07 No significant changes Electronically Signed On 06-26-22 08:27:26 CDT by Adán Harvey
[2022-06-26] MEDS: INSULIN GLARGINE 100 UNIT/ML SQ SCH ×2 (08:34→21:11)
[2022-06-26] MEDS ORDERED: ASPIRIN EC 81 MG TAB PO SCH (09:00)
[2022-06-26] MEDS ORDERED: FUROSEMIDE 20 MG/ 2ML VIAL IV SCH (09:00)
[2022-06-26] MEDS ORDERED: FUROSEMIDE 40 MG TABLET PO SCH (09:00)
[2022-06-26] MEDS ORDERED: APIXABAN 2.5 MG TABLET PO SCH (09:00)
[2022-06-26] MEDS ORDERED: SPIRONOLACTONE 25 MG TABLET PO SCH (09:00)
[2022-06-26] MEDS ORDERED: HEPA 1000U/500MLS 2,000 UNIT/1,000 ML BAG IV ONE (10:56)
[2022-06-26] MEDS ORDERED: LIDOCAINE 1% 20 ML MDV ONE (10:58)
[2022-06-26] MEDS ORDERED: NA CHLORIDE 0.9% 500 ML ONE (12:07)
--- NOTE | 2022-06-26 12:19 | EKG ---
Test Date: 2022-06-26 Test Time: 08:32:52 Technical Support 1 Software Engineer: THIERNO MEASUREMENT RESULTS: Intervals: Rate: 60 [place]: 182 QRSD: 104 QT: 442 QTc: 442 [place]: P: 49 [place]: 182 QRS: -1 T: 16 INTERPRETIVE STATEMENTS: Normal sinus rhythm Normal ECG Compared to ECG 06/25/2022 15:23:14 Atrial-paced complex(es) or rhythm no longer present Electronically Signed On 06-26-22 12:18:49 CDT by Adán Harvey
--- NOTE | 2022-06-26 13:19 | CON ---
Date of Consultation: 06/26/2022 Reason For Consultation: Elevated BUN and creatinine, fluid management. History Of Present Illness: This is an 82-year-old female with significant past medical history of hypertension, hyperlipidemia, CAD status post CABG complicated with congestive heart failure, carotid stenosis, PAD, CVA, diabetes complicated with neuropathy and nephropathy, dementia, the patient came to the hospital because of shortness of breath and leg swelling, found to have elevation in BUN and creatinine. For that reason, we have been consulted. Past Medical History: Includes; 1. Hypertension. 2. Diabetes complicated with neuropathy. 3. CVA back in 2014. 4. CAD status post CABG. 5. Carotid stenosis. 6. Hyperlipidemia. Past Surgical History: Includes; 1. CABG. 2. Endarterectomy for the right carotid. 3. Hysterectomy. 4. Bladder suspension. 5. Hernia repair. 6. Splenectomy. 7. Cholecystectomy. Family History: Positive for CAD, hypertension. Social History: Denied smoking, denied drinking, denied drugs abuse. Review of Systems: Head and Neck: No red eye. No ear pain. GI: No nausea. No vomiting. : No polyuria. No dysuria. No hematuria. Lens Examiner: No vaginal discharge. Respiratory: Has shortness of breath. Cardiovascular: No chest pain. Endocrine: No polydipsia. Skin: No rash. Neuro: Pleasantly confused. No focality. Musculoskeletal: Generalized weakness. Home Medications: Include oxybutynin, spironolactone, ropinirole, Lyrica, pantoprazole, meclizine, insulin, hydroxyurea, Lasix, diclofenac, cholecalciferol, atorvastatin, and Eliquis. Current Medications: In the hospital include aspirin, atorvastatin, Lasix, , insulin, Zofran, oxybutynin, Lyrica, Requip, and spironolactone. Physical Examination: General: When I saw the patient; the patient lying in bed, not on any distress. Vital Signs: Blood pressure 182/76, pulse of 65, afebrile. Chest: Faint rales bilateral. Heart: S1, S2. Systolic murmur. Abdomen: Soft, nontender. Extremity: Plus edema. Neurologic: Alert. No focality. Laboratory Data: WBC 5.1, H and H 12.6/37.8. Sodium 138, potassium 4.3, bicarb 30, BUN 57, creatinine 1.9, calcium 9. Troponin 276, PTH 57. Urinalysis not done yet. KYMBERLY before was negative. Immunofixation, monoclonal IgM kappa. Assessment And Plan: 1. Acute kidney injury on chronic kidney disease. Baseline creatinine back in March last year is 2 with GFR of 25. Slightly on the over volume side. I am going to continue diuresis. Given the chronicity of the disease, I am going to go ahead and send for the workup including renal ultrasound and PTH with the presence of no anemia. No need for serum protein electrophoresis. 2. Chronic kidney disease mostly secondary to renal vascular disease, cardiorenal syndrome, over volume, superimposed with diabetes nephropathy, questionable of light chain disease given the positive IPAP. I am going to go ahead and send for quantification of the PC ratio. Back in March, it was 0.2. We will follow up. Given the stability of the disease, I am going to start the patient on ARB and we will follow up. 3. Hypertension with the presence of the proteinuria and diabetes. Start ARB. 4. Congestive heart failure with exacerbation. Continue diuresis. Continue spironolactone. Add TODD inhibitor. 5. Edema secondary to renal failure, cardiorenal. As above, we will diurese. We will follow up. 6. Diabetes as by primary. 7. Dementia. Continue supportive care. 8. Cerebrovascular accident. Continue supportive care. Time spent examining the patient [id number], reviewing data, lab and radiology, placing order, discussing the case with the patient, discussing the case with the steam heating installer including nurse more than 65 minutes SHAHNAZ Voice ID: [id number] Report ID: [id number] CHIOMA
--- NOTE | 2022-06-26 13:34 | CON ---
Date of Consultation: 06/26/2022 Reason For Consultation: [id number] myocardial infarction. History Of Present Illness: Ms. Rodriguez is 82 years old with a very extensive past medical history inc luding history of CABG in 2019. She is status post carotid endarterectomy done by Dr. Wild. She also has a history of paroxysmal atrial fibrillation for which she takes Eliquis. She has dyslipidem ia, chronic diastolic congestive heart failure, diabetes, neuropathy, and renal insufficiency. She c manuela in with chest pain that has resolved. Chest x-ray showed mild CHF. She had an echocardiogram in 2020 that showed diastolic dysfunction. She had a negative Lexiscan in 2021. Her pain was substern al, radiated to the left arm and left shoulder with some diaphoresis, shortness of breath, but no shiv sea, vomiting. She denied PND, orthopnea, pedal edema, palpitation, or syncope. Allergies: TO NIACIN, AUGMENTIN, HYDROCODONE, DEMEROL, METFORMIN, ZETIA, AND GLIMEPIRIDE. Medications: At home include Eliquis, hydroxyurea, aspirin, Lipitor, Lasix, insulin, Aldactone, and Lyrica. Review of Systems: Negative. Social History: Negative. Family History: Negative. Physical Examination: General: Mrs. Rodriguez is obese. No acute distress. Vital Signs: Stable, sinus rhythm, afebrile. HEENT: Negative. Neck: Supple with no bruit. Chest: Clear to auscultation and percussion. Cardiac: Revealed a regular rhythm and rate. No murmurs, gallops, or rubs. Abdomen: Benign. Extremities: Revealed no clubbing, cyanosis, or edema. Diagnostic Data: As stated earlier. Creatinine is 1.96. Troponin is 310. BNP is 1332. Chest x-ra y showed mild CHF. Impression And Plan: Non-ST segment elevation myocardial infarction in a patient with many risk fact ors for heart disease. Has a history of coronary artery bypass graft in 2019, had a carotid endarter [place]ctomy [place] [address] Wild. Chest pain is pretty typical. Creatinine was slightly elevated, whic h is worrisome. Nephrology consultation has been obtained. Eliquis has been held since yesterday mo rning. Case was discussed with the patient. She understands the risk and the benefits of a heart ca theterization and I think we would do that later on today. Her other problems including dyslipidemia , chronic diastolic congestive heart failure, diabetes, neuropathy, and hypertension seem to be stabl e at this point. Again, we will watch her creatinine after the catheterization. Do the catheterizat ion today. Resume Eliquis depending on the findings. We will continue to follow. LIBAN Voice ID: [id number] Report ID: [id number]
--- NOTE | 2022-06-26 14:05 | RAD REPORT ---
EXAM DESCRIPTION: US - Renal Ultrasound-Complete - 06/26/2022 1:32 pm CLINICAL HISTORY: Acute renal failure COMPARISON: 2021 FINDINGS: The right kidney measures 11 cm with a normal echotexture. The left kidney measures 10 cm with a normal echotexture. Hydronephrosis is not seen. No gross abnormality of bladder is noted IMPRESSION: Unremarkable exam
--- NOTE | 2022-06-26 14:14 | ECHO ---
HEIGHT: 5 ft 3.5 in WEIGHT: 269 lb 11.2 oz DATE OF STUDY: 06/26/[address]: Adán Harvey MD 2-DIMENSIONAL: YES M.MODE: YES DOPPLER: YES COLOR FLOW: YES TDS: YES PORTABLE: YES DEFINITY: BUBBLE STUDY: DIAGNOSIS: CONGESTIVE HEART FAILURE CARDIAC HISTORY: CATHERIZATION: YES SURGERY: YES PROSTHETIC VALVE: NO PACEMAKER: YES MEASUREMENTS (cm) DIASTOLIC (NORMALS) SYSTOLIC (NORMALS) IVSd 1.2 (0.6-1.2) LA Diam 3.4 (1.9-4.0) LVEF 55-60% LVIDd 4.2 (3.5-5.7) LVIDs 3.55 (2.0-3.5) %FS 17% LVPWd 1.2 (0.6-1.2) Ao Diam 2.7 (2.0-3.7) 2 DIMENSIONAL ASSESSMENT: RIGHT ATRIUM: NORMAL LEFT ATRIUM: NORMAL RIGHT VENTRICLE: POSITIVE PERMANENT PACEMAKER LEFT VENTRICLE: NORMAL SIZE TRICUSPID VALVE: NORMAL MITRAL VALVE: MITRAL ANNULAR CALCIFICATION PULMONIC VALVE: NORMAL AORTIC VALVE: SCLEROSIS PERICARDIAL EFFUSION: NONE AORTIC ROOT: NORMAL LEFT VENTRICULAR WALL MOTION: NORMAL EJECTION FRACTION. DECREASED LEFT VENTRICULAR COMPLIANCE. DOPPLER/COLOR FLOW: DECREASED LEFT VENTRICULAR COMPLIANCE. MILD TRICUSPID REGURGITATION. COMMENTS: 1. POSITIVE PERMANENT PACEMAKER IN RIGHT VENTRICULAR APEX 2. MITRAL ANNULAR CALCIFICATION 3. AORTIC SCLEROSIS 4. NORMAL EJECTION FRACTION AND SIZE TECHNOLOGIST: EDDIE LIM
[2022-06-26] MEDS ORDERED: VERAPAMIL HCL 10 MG/4 ML VIAL IV ONE (14:55)
[2022-06-26] MEDS ORDERED: FENTANYL CITR 100 MCG/2 ML ONE (14:55)
[2022-06-26] MEDS ORDERED: HEPARIN 5000 UNIT/ML 1 ML VIAL ONE (14:55)
[2022-06-26] MEDS ORDERED: MIDAZOLAM HCL 2 MG/2 ML INJ ONE (14:55)
[2022-06-26] MEDS ORDERED: HEPARIN 10,000 UNIT/10 ML VIAL IV ONE (14:56)
[2022-06-26] MEDS ORDERED: NITROGLYCERIN 100 MCG/ML SYR (for cath lab use only) IV ONE (14:56)
[2022-06-26] MEDS ORDERED: ATROPINE SULF 1 MG/10 ML SYR IV ONE (14:56)
--- NOTE | 2022-06-26 16:49 | OP ---
Date of Procedure: 06/26/2022 Surgeon: SCARLET MIJARES Procedure Performed: Selective coronary angiogram with bypass graft study. Indication: Non-ST elevation myocardial infarction. Access: Right femoral artery 6-Somali closed with 6-Somali Angio-Seal. Anesthesia: Total sedation time was 35 minutes. Used fentanyl and Versed. Total contrast was 30 cc . Description Of Procedure: After risks, benefits, and alternatives were explained, the patient agreed to the procedure and signed informed consent. The patient was brought into the cardiac catheterizat ion laboratory, prepped and draped in the usual sterile fashion. Then, I accessed right femoral faustina ry using micropuncture kit, fluoroscopy, ultrasound guidance, placed 6-Somali [place] sheath and too k a 6-Somali JL4 catheter into the aortic root, engaged left main, took standard views. Then, I exch anged for 6-Somali JR4 catheter and engaged the RCA, SVG to OM, SVG to RCA and GUZMAN to LAD, took lalito dard views and then the catheter was used to cross the aortic valve over the wire, measured the LVEDP and pullback did not record any gradient. Then, catheter was removed, sheath was removed and placed a 6-Somali Angio-Seal with good hemostasis. Findings: 1.Left main; this patient has very small arteries. Left main is small, has proximal 40%. 2.LAD; proximal diffuse 40% to 50% and then becomes TOYS AND GAMES HAND FINISHER 100% occluded. Diagonal branch has very sma ll artery with diffuse 50% stenosis. 3.Left circumflex; very small artery about 1 to 1.5 mm, diffuse 80% stenosis proximally and the OM h as diffuse 60% to 70% stenosis and then the left circumflex gives collaterals to the PDA, even though it is very small vessel less than 1 mm. 4.RCA; diffusely diseased from ostium to distal 90% stenosed. Graft Study: 1.Patent SVG to OM with a jump graft that is supplying 2 branches. 2.Patent SVG to RCA, however, with slow flow to the aneurysmal in the midportion. 3.Patent GUZMAN to distal LAD. 4.Normal LVEDP at 9 mmHg. Conclusion: 1.Severe capitan grande multivessel coronary artery disease. 2.Patent SVG graft to OM, patent GUZMAN to LAD and patent SVG to RCA, but with slow flow. 3.Normal LVEDP. Recommendation: Medical management. SR/MODL Voice ID: [id number] Report ID: [id number]
[2022-06-26] MEDS: FUROSEMIDE 20 MG/ 2ML VIAL IV SCH (18:28)
[2022-06-26] MEDS: FLUOCINOLONE ACETONIDE OIL TOP SCH (21:00)
[2022-06-27] MEDS: ROPINIROLE HCL 0.25 MG TAB PO SCH (08:32)
[2022-06-27] MEDS: ASPIRIN 81 MG CHEWABLE TABLET PO SCH (08:33)
[2022-06-27] MEDS: VITAMIN D 1000 UNIT TAB PO SCH (08:33)
[2022-06-27] MEDS: ATORVASTATIN 40 MG TAB PO SCH (08:33)
[2022-06-27] MEDS: oxyBUTYnin chloride 5 MG TAB PO SCH ×2 (08:33→21:40)
[2022-06-27] MEDS: SPIRONOLACTONE 25 MG TABLET PO SCH (08:34)
[2022-06-27] MEDS: PREGABALIN 75 MG CAP PO SCH ×2 (08:34→21:39)
[2022-06-27] MEDS: CLOPIDOGREL 75 MG TABLET PO SCH (08:34)
[2022-06-27] MEDS: PANTOPRAZOLE 40MG TABLET PO SCH (08:34)
[2022-06-27] MEDS: MAGNESIUM OXIDE 400 MG TAB FT SCH ×2 (08:34→08:36)
[2022-06-27] MEDS: INSULIN -REGULAR HUMAN 50 UNIT/0.5 ML ML SQ SCH ×7 (08:35→21:40)
[2022-06-27] MEDS: INSULIN GLARGINE 100 UNIT/ML SQ SCH ×2 (08:36→21:41)
[2022-06-27] MEDS ORDERED: lisinopriL 10 MG TAB PO SCH (09:00)
[2022-06-27] MEDS: FUROSEMIDE 20 MG/ 2ML VIAL IV SCH (09:00)
[2022-06-27 09:02] LABS: Albumin 3.1 g/dL (3.4-5.0); Phosphorus 2.8 mg/dL (2.5-4.9); Potassium 4.5 mEq/L (3.5-5.1); Thyroid Stimulating Hormone 2.58 uIU/mL (0.358-3.740); Uric Acid 6.4 mg/dL (2.6-6.0)
[2022-06-27 09:11] LABS: Rheumatoid Factor NEG (NEG)
[2022-06-27] MEDS ORDERED: FUROSEMIDE 40 MG TABLET PO SCH (10:47)
[2022-06-27 13:05] LABS: Potassium 4.6 mEq/L (3.5-5.1)
--- NOTE | 2022-06-27 13:31 | P.PN ---
Subjective Date of Service: 06/27/22 Subjective: No new changes Physical Examination - Vital Signs Temperature: 98.3 F Blood Pressure: 108/67 Pulse: 70 Respirations: 16 Pulse Ox (%): 93 - Physical Exam General: Other (chronically ill-appearing) HEENT: Atraumatic, Normocephalic Neck: Supple Respiratory: Other (symmetric chest expansion) Cardiovascular: No rubs, No murmurs Gastrointestinal: Soft and benign Musculoskeletal: No clubbing Integumentary: No warmth Neurological: Normal speech, Normal tone Urinary: Other (no bladder distention) External genitalia: Deferred Rectal: Deferred Assessment And Plan - Plan 1. Acute kidney injury on chronic kidney disease. Baseline creatinine back in March last year is 2 with GFR of 25. Slightly on the over volume side. Continue lasix. 2. Chronic kidney disease mostly secondary to renal vascular disease, cardiorenal syndrome, over volume, superimposed with diabetes nephropathy. Monitor renal panel 3. Hypertension with the presence of the proteinuria and diabetes. continue current BP medication regimen. 4. Congestive heart failure with exacerbation. Continue diuresis. Continue other cardiac prudent medications. 5. Edema secondary to renal failure, cardiorenal. Lasix as above. 6. DM2. Mngt per primary team. 7. Dementia. Continue supportive care. 8. Cerebrovascular accident. Continue supportive care.
[2022-06-27] MEDS ORDERED: ONDANSETRON 4 MG (ODT) TAB PO PRN (14:48)
[2022-06-27] MEDS ORDERED: NA CHLORIDE 0.9% 250 ML ONE (15:41)
[2022-06-27] MEDS: NA CHLORIDE 0.9% 1,000 ML IV SCH (16:00)
[2022-06-27] MEDS ORDERED: D10W 250 ML BAG IV ONE (16:45)
--- NOTE | 2022-06-27 17:19 | RAD REPORT ---
EXAM DESCRIPTION: RAD - Chest Single View - 06/27/2022 5:05 pm CLINICAL HISTORY: pneumonia Chest pain. COMPARISON: Chest Single View dated 06/25/2022; Chest Single View dated 03/25/2021; Chest Single View dated 03/22/2021; Chest Single View dated 12/29/2020 FINDINGS: Portable technique limits examination quality. Mild pulmonary edema. The heart is moderately enlarged. Dual lead pacer device is present.Sternotomy wires. IMPRESSION: Mild CHF.
[2022-06-27] MEDS: FLUOCINOLONE ACETONIDE OIL TOP SCH (21:00)
[2022-06-28 03:54] LABS: Absolute Lymphocytes (CBC) 0.9 K/uL (0.7-4.9); Hematocrit 37.6 % (36.0-45.0); RBC Red Blood Cell Count 3.16 M/uL (3.86-4.86)
[2022-06-28 03:55] LABS: MCV 118.9 fL (80-100)
[2022-06-28 04:38] LABS: Albumin 2.8 g/dL (3.4-5.0); Bilirubin Total 0.5 mg/dL (0.2-1.0); Magnesium 1.9 mg/dL (1.6-2.4); Phosphorus 3.6 mg/dL (2.5-4.9); Potassium 5.1 mEq/L (3.5-5.1); Protein, Total 6.6 g/dL (6.4-8.2)
[2022-06-28] MEDS: NA CHLORIDE 0.9% 1,000 ML IV SCH (04:41)
--- NOTE | 2022-06-28 06:37 | RAD REPORT ---
EXAM DESCRIPTION: RAD - Chest Single View - 06/28/2022 6:18 am CLINICAL HISTORY: pneumonia COMPARISON: Chest Single View dated 06/27/2022; Chest Single View dated 06/25/2022; Chest Single View dated 03/25/2021; Chest Single View dated 03/22/2021; Renal Ultrasound-Complete dated 06/26/2022 FINDINGS: Lines: Pacemaker. Lungs: Diffuse prominence of the pulmonary interstitium . Pleural: No significant pleural effusions or pneumothorax. Cardiac: Cardiomegaly. Sternotomy. Mediastinum: Within normal limits. Bones: No acute fractures. Other: None IMPRESSION: Mild pulmonary edema similar to 06/27/2022.
[2022-06-28] MEDS: INSULIN -REGULAR HUMAN 50 UNIT/0.5 ML ML SQ SCH ×4 (07:30→21:20)
[2022-06-28 08:36] LABS: Specific Gravity 1.025 (1.005-1.030); Urine Bacteria >50 /HPF (<20); Urine Bilirubin NEGATIVE (Negative); Urine Blood 1+ (Negative); Urine Clarity Extremely Turbid (Clear); Urine Color Light-Orange (Yellow); Urine Glucose NEGATIVE (Negative); Urine Mucus Slight /HPF (None Seen); Urine Protein 1+ (Negative); Urine RBC 21-50 /HPF (None Seen); Urine Urobilinogen Normal (Normal); Urine WBC Clump Many /HPF (None Seen)
[2022-06-28] MEDS: INSULIN GLARGINE 100 UNIT/ML SQ SCH ×2 (09:01→21:20)
[2022-06-28] MEDS: PREGABALIN 75 MG CAP PO SCH ×2 (09:01→21:19)
[2022-06-28] MEDS: VITAMIN D 1000 UNIT TAB PO SCH (09:01)
[2022-06-28] MEDS: ASPIRIN 81 MG CHEWABLE TABLET PO SCH (09:01)
[2022-06-28] MEDS: ATORVASTATIN 40 MG TAB PO SCH (09:01)
[2022-06-28] MEDS: PANTOPRAZOLE 40MG TABLET PO SCH (09:01)
[2022-06-28] MEDS: MAGNESIUM OXIDE 400 MG TAB FT SCH ×2 (09:02→09:04)
[2022-06-28] MEDS: oxyBUTYnin chloride 5 MG TAB PO SCH ×2 (09:02→21:23)
[2022-06-28] MEDS: CLOPIDOGREL 75 MG TABLET PO SCH (09:03)
[2022-06-28] MEDS: CEFTRIAXONE 1,000 MG in NA CHLORIDE 0.9% 50 ML IVPB SCH (09:26)
[2022-06-28 09:31] LABS: UR PROTEIN 46.7 mg/dL (<11.9); Urine Protein/Creatinine Ratio 0.17 ratio (<0.15)
[2022-06-28] MEDS ORDERED: ALBUMIN HUMAN 25% 50 ML IV ONE (09:47)
--- NOTE | 2022-06-28 12:38 | P.PN ---
Subjective Date of Service: 06/26/22 Pt is an 82-year-old female who came to the hospital with elevated troponin. Patient has a history of coronary artery bypass grafting. Patient also with significant atherosclerotic disease. Patient's echocardiogram showed decreased left ventricular compliance with a normal ejection fraction. Patient also with chronic kidney disease. Patient proceeded with a cardiac catheterization today. Results are pending. Review of Systems 10-point ROS is otherwise unremarkable Physical Examination - Vital Signs Temperature: 98.5 F Blood Pressure: 105/49 Pulse: 62 Respirations: 16 Pulse Ox (%): 91 - Physical Exam General: Alert, In no apparent distress, Oriented x3 Respiratory: Clear to auscultation bilaterally, Normal air movement Cardiovascular: Regular rate/rhythm, Normal S1 S2, Systolic murmur Gastrointestinal: Normal bowel sounds, Soft and benign, Non-distended, No tenderness Musculoskeletal: No clubbing, No swelling, No tenderness Neurological: Sensation intact, Cranial nerves 3-12 intact - Studies Medications List Reviewed: Yes Assessment & Plan - Problems (Diagnosis) (1) Chest pain, rule out acute myocardial infarction Current Visit: No Status: Acute (2) Diastolic CHF, acute on chronic Current Visit: No Status: Acute (3) History of carotid endarterectomy Current Visit: No Status: Acute (4) (HFpEF) heart failure with preserved ejection fraction Current Visit: No Status: Chronic Qualifiers: Heart failure chronicity: chronic Qualified Code(s): I50.32 - Chronic diastolic (congestive) heart failure (5) Coronary artery disease due to type 2 diabetes mellitus Current Visit: No Status: Chronic (6) Diabetic neuropathy Current Visit: No Status: Chronic Qualifiers: Diabetes mellitus type: type 2 Diabetes mellitus complication detail: diabetic polyneuropathy Qualified Code(s): E11.42 - Type 2 diabetes mellitus with diabetic polyneuropathy (7) HTN (hypertension) Current Visit: No Status: Chronic Qualifiers: Hypertension type: primary hypertension Qualified Code(s): I10 - Essential (primary) hypertension (8) Recurrent cerebrovascular accidents (CVAs) Current Visit: No Status: Chronic - Plan -High-sensitivity troponin elevated on numerous occasions with cardiac catheterization today -Cardiology consultation appreciated -Echocardiogram reviewed -Monitoring renal function closely -Continue with statin therapy and antiplatelet therapy. Continue with blood pressure control -Strict blood sugar control -Hospice Clinical Marketer regarding modifying risk for cardiac disease -Clinically patient is weak and she transfers and takes very few steps. She gets around with an electric motor scooter. Her daughters provide assistance with her day-to-day care. Plan for patient to transfer back to home with her daughters over the next 24 to 48 hours. Discharge Plan: Home Plan to discharge in: Greater than 2 days - Advance Directives Does patient have a Living Will: No Does patient have a Durable POA for Healthcare: No - Code Status/Comfort Care Code Status Assessed: Yes Code Status: Full Code Critical Care: No Time Spent Managing PTS Care (In Minutes): 35
--- NOTE | 2022-06-28 12:57 | P.PN ---
Date of Service: 06/27/22 Subjective Patient's Cr is elevated; patient was hypoglycemic and her BP dropped to 80/50. Repeat Cr in the evening showed pts renal function is better with the hydration; but in the setting of pts hypotension she may develop ATN; will continue with gentle hydration and hold pts antihypertensives. Physical Examination - Vital Signs reviewed - Physical Exam General: Alert, In no apparent distress, lethargic Respiratory: Clear to auscultation bilaterally Cardiovascular: Regular rate/rhythm, Normal S1 S2, Systolic murmur Gastrointestinal: Normal bowel sounds, Soft and benign, Non-distended, No tenderness Musculoskeletal: No clubbing, No swelling, No tenderness Neurological: Generalized weakness Assessment & Plan - Problems (Diagnosis) (1) Chest pain, rule out acute myocardial infarction Current Visit: No Status: Acute (2) Diastolic CHF, acute on chronic; HFpEF Current Visit: No Status: Acute (3) History of carotid endarterectomy Current Visit: No Status: Acute (4) Acute on CKD; contrast induced nephropathy Current Visit: No Status: Chronic Qualifiers: Heart failure chronicity: chronic Qualified Code(s): I50.32 - Chronic diastolic (congestive) heart failure (5) Coronary artery disease due to type 2 diabetes mellitus Current Visit: No Status: Chronic (6) Diabetic neuropathy Current Visit: No Status: Chronic Qualifiers: Diabetes mellitus type: type 2 Diabetes mellitus complication detail: diabetic polyneuropathy Qualified Code(s): E11.42 - Type 2 diabetes mellitus with diabetic polyneuropathy (7) HTN (hypertension) Current Visit: No Status: Chronic Qualifiers: Hypertension type: primary hypertension Qualified Code(s): I10 - Essential (primary) hypertension (8) Recurrent cerebrovascular accidents (CVAs) Current Visit: No Status: Chronic - Plan Continue with POC as mentioned below; -High-sensitivity troponin elevated on numerous occasions with s/p cardiac catheterization; diffuse multivessel CAD with no intervention -Cardiology consultation appreciated -Echocardiogram reviewed -Monitoring renal function closely; was elevated this AM but it has decreased this evening; continue with IVFs -Continue with statin therapy and antiplatelet therapy. Continue with blood pressure control -DC diabetic meds -Pt was hypotensive, and we have discontinued antihypertensives; monitor BP closely *Clinically patient is weak and she transfers and takes very few steps. She gets around with an electric motor scooter. Her daughters provide assistance with her day-to-day care. Plan for patient to transfer back to home with her daughters over the next 24 to 48 hours. Discharge Plan: Home Plan to discharge in: Greater than 2 days - Advance Directives Does patient have a Living Will: No Does patient have a Durable POA for Healthcare: No - Code Status/Comfort Care Code Status Assessed: Yes Code Status: Full Code Critical Care: No Time Spent Managing PTS Care (In Minutes): 35
--- NOTE | 2022-06-28 13:04 | P.PN ---
Date of Service: 06/28/22 Subjective Patient's creatinine worsened once again. I felt it may initially be related to contrast induced nephropathy but the patient's creatinine had improved yesterday evening. Yesterday patient did become significantly hypotensive. We have held patient's blood pressure medication. I believe today's creatinine being more elevated may be related to acute tubular necrosis. Appreciate nephrology assistance in patient's care. Continue with gentle hydration. Monitor renal function closely. Patient's mentation is improved this morning as her blood pressure is better. Blood sugars are better as well. Physical Examination - Vital Signs reviewed - Physical Exam General: Alert, In no apparent distress, lethargic Respiratory: Clear to auscultation bilaterally Cardiovascular: Regular rate/rhythm, Normal S1 S2, Systolic murmur Gastrointestinal: Normal bowel sounds, Soft and benign, Non-distended, No tenderness Musculoskeletal: No clubbing, No swelling, No tenderness Neurological: Generalized weakness Assessment & Plan - Problems (Diagnosis) (1) Chest pain, rule out acute myocardial infarction Current Visit: No Status: Acute (2) Diastolic CHF, acute on chronic; HFpEF Current Visit: No Status: Acute (3) History of carotid endarterectomy Current Visit: No Status: Acute (4) Acute on CKD; contrast induced nephropathy Current Visit: No Status: Chronic Qualifiers: Heart failure chronicity: chronic Qualified Code(s): I50.32 - Chronic diastolic (congestive) heart failure (5) Coronary artery disease due to type 2 diabetes mellitus Current Visit: No Status: Chronic (6) Diabetic neuropathy Current Visit: No Status: Chronic Qualifiers: Diabetes mellitus type: type 2 Diabetes mellitus complication detail: diabetic polyneuropathy Qualified Code(s): E11.42 - Type 2 diabetes mellitus with diabetic polyneuropathy (7) HTN (hypertension) Current Visit: No Status: Chronic Qualifiers: Hypertension type: primary hypertension Qualified Code(s): I10 - Essential (primary) hypertension (8) Recurrent cerebrovascular accidents (CVAs) Current Visit: No Status: Chronic - Plan Continue with POC as mentioned below; -High-sensitivity troponin elevated on numerous occasions with s/p cardiac catheterization; diffuse multivessel CAD with no intervention -Cardiology consultation appreciated; no further intervention -Echocardiogram reviewed -Monitoring renal function closely; significantly more elevated this AM. Probably ATN in the setting of contrast-induced nephropathy -Continue with statin therapy and antiplatelet therapy. Continue with blood pressure control -DC diabetic meds; monitor BS closely -Pt was hypotensive, and we have discontinued antihypertensives; monitor BP closely -Continue with gentle hydration *Clinically patient is weak and she transfers and takes very few steps. She gets around with an electric motor scooter. Her daughters provide assistance with her day-to-day care. Plan for patient to transfer back to home with her daughters over the next 24 to 48 hours. Discharge Plan: Home Plan to discharge in: Greater than 2 days - Advance Directives Does patient have a Living Will: No Does patient have a Durable POA for Healthcare: No - Code Status/Comfort Care Code Status Assessed: Yes Code Status: Full Code Critical Care: No Time Spent Managing PTS Care (In Minutes): 35
--- NOTE | 2022-06-28 13:44 | P.PN ---
Subjective Date of Service: 06/28/22 Subjective: No new changes Physical Examination - Vital Signs Temperature: 98.5 F Blood Pressure: 105/49 Pulse: 62 Respirations: 16 Pulse Ox (%): 91 - Physical Exam General: Other (chronically ill-appearing) HEENT: Atraumatic, Normocephalic Neck: Supple Respiratory: Other (symmetric chest expansion) Cardiovascular: No rubs, No murmurs Gastrointestinal: Soft and benign, No guarding Integumentary: No warmth Neurological: Normal tone Urinary: Other (no bladder distention) External genitalia: Deferred Rectal: Deferred - Studies Medications List Reviewed: Yes Assessment And Plan - Plan # FIDENCIO 2/2 CRS1, r/o AIN from PPI SCr increase from 2.3 to 2.9 Dc pantoprazole If MAP drops < 65 again, start midodrine tid vs inotrope liberal by mouth fluid intake # CHF exacerbation TTE on 2522 showed normal LVEF at 55-60%, +diastolic dysfunction Has R-sided heart failure, +pulmo Htn on chest CT. +Dilated main pulmo artery. +BLE edema. BNP sig elevated. Na-overloaded. Also likely has HORACE/OHS Dc NS drip Start D5W 75 cc/hr. Encourage po fluid intake. Do not limit po fluid intake unless her serum Na drops below 130 meq/L. Start Lasix 80 mg IV bid. F/u random urine chem, if +secondary hyperaldo physiology, start spironolactone 500 mg po bid & add veltassa po bid to prevent hyperkalemia # Hx of CAD s/p CABG continue cardioprudent medications # BLE edema Lasix as above # Htn Hold BP meds # DM2 Per primary team # Dementia Supportive care # Hx of CVA, severe BLE osteoarthritis PT/OT
[2022-06-28] MEDS: D5W 1,000 ML IV SCH (15:09)
[2022-06-28] MEDS: FUROSEMIDE 40 MG/4 ML VIAL IV SCH (16:25)
[2022-06-28 16:38] LABS: Absolute Lymphocytes (CBC) 1.3 K/uL (0.7-4.9); Lymphocytes % 14.1 % (15.3-44.8); MCV 121.3 fL (80-100); MPV 9.9 fL (7.6-11.3); RBC Red Blood Cell Count 2.72 M/uL (3.86-4.86)
[2022-06-28 16:53] LABS: Magnesium 1.8 mg/dL (1.6-2.4); Potassium 4.8 mEq/L (3.5-5.1)
--- NOTE | 2022-06-28 18:24 | PN ---
Date of Progress Note: 06/27/2022 Mrs. Rodriguez underwent a heart catheterization by Dr. Turner, with patent graft to the OM, GUZMAN, and RC A. Overnight had no complaint. Groin is intact. No hematoma. No telemetry changes. No chest pain . We will plan to discharge her and we will see her in the office in the next 2 weeks. No change in medical therapy for now. NB/MODL Voice ID: [id number] Report ID: [id number]
[2022-06-28] MEDS: FLUOCINOLONE ACETONIDE OIL TOP SCH (21:00)
[2022-06-28] MEDS: ROPINIROLE HCL 0.25 MG TAB PO SCH (21:22)
[2022-06-29 03:40] LABS: Albumin 2.5 g/dL (3.4-5.0); Phosphorus 3.8 mg/dL (2.5-4.9); Potassium 4.8 mEq/L (3.5-5.1)
[2022-06-29] MEDS: D5W 1,000 ML IV SCH (05:45)
[2022-06-29] MEDS: INSULIN -REGULAR HUMAN 50 UNIT/0.5 ML ML SQ SCH ×4 (07:30→20:37)
--- NOTE | 2022-06-29 09:55 | RAD REPORT ---
EXAM DESCRIPTION: CT - Thorax Wo Con CLINICAL HISTORY: Chest pain acute/chronic respi failure COMPARISON: Thorax Wo Con dated 09/03/2020Thorax Wo Con dated 09/03/2020 FINDINGS: The lungs are emphysematous with mild linear atelectasis both lung bases. Mild ground-glas s opacities also seen in both lung bases. No pleural thickening or pleural effusion. No pneumothorax. Moderate cardiomegaly. No axillary, mediastinal or hilar adenopathy. Pacer wires are present. No concerning bony finding. Cholecystectomy clips. All CT scans are performed using dose optimization technique as appropriate and may include automated exposure control or mA/KV adjustment according to patient size. IMPRESSION: COPD with mild interstitial pulmonary edema suspected in the lung bases.
[2022-06-29 10:08] LABS: Arterial Blood Carboxyhemoglob 1.2 % (0-1.5); Blood Gas Oxyhemoglobin 92.7 % (94-97); Blood O2 Saturation 94.8 % (92-98.5)
[2022-06-29] MEDS: VITAMIN D 1000 UNIT TAB PO SCH (10:16)
[2022-06-29] MEDS: ASPIRIN 81 MG CHEWABLE TABLET PO SCH (10:16)
[2022-06-29] MEDS: ATORVASTATIN 40 MG TAB PO SCH (10:16)
[2022-06-29] MEDS: PREGABALIN 75 MG CAP PO SCH ×2 (10:17→20:31)
[2022-06-29] MEDS: CEFTRIAXONE 1,000 MG in NA CHLORIDE 0.9% 50 ML IVPB SCH (10:17)
[2022-06-29] MEDS: CLOPIDOGREL 75 MG TABLET PO SCH (10:17)
[2022-06-29] MEDS: FUROSEMIDE 40 MG/4 ML VIAL IV SCH (10:17)
[2022-06-29] MEDS: oxyBUTYnin chloride 5 MG TAB PO SCH ×2 (10:17→20:31)
[2022-06-29] MEDS: INSULIN GLARGINE 100 UNIT/ML SQ SCH ×2 (10:19→20:37)
--- NOTE | 2022-06-29 13:30 | P.PN ---
Subjective Date of Service: 06/29/22 Subjective: No new changes Physical Examination - Vital Signs Temperature: 98.0 F Blood Pressure: 123/71 Pulse: 66 Respirations: 16 Pulse Ox (%): 92 - Physical Exam General: Other (chronically ill-appearing) HEENT: Atraumatic, Normocephalic Neck: Supple, JVD not distended Respiratory: Other (symmetric chest expansion) Cardiovascular: No rubs, No murmurs Gastrointestinal: Soft and benign, No guarding Musculoskeletal: No clubbing Integumentary: No warmth Neurological: Normal speech, Normal tone Urinary: Other (no bladder distention) External genitalia: Deferred Rectal: Deferred - Studies Medications List Reviewed: Yes Assessment And Plan - Plan # FIDENCIO 2/2 CRS1 + contrast nephropathy, r/o AIN from PPI SCr increase from 2.3 to 2.9 to 3.3 Dc pantoprazole If MAP drops < 65 again, start midodrine tid vs inotrope liberal by mouth fluid intake Dc D5W gtt # Relative hypotension BP still low normal Check DHEAS & 8am serum cortisol + ACTH. # CHF exacerbation TTE on 2522 showed normal LVEF at 55-60%, +diastolic dysfunction Has R-sided heart failure, +pulmo Htn on chest CT. +Dilated main pulmo artery. +BLE edema. BNP sig elevated. Na-overloaded. Also likely has HORACE/OHS Dc IVF Encourage po fluid intake. Do not limit po fluid intake unless her serum Na drops below 130 meq/L. Random urine chemistry done on 06/28/2022 showed no secondary hyperaldosteronism. No indication for liza tamika therapy. Switch Lasix IV to Lasix 10 mg po bid. Strictly low sodium diet less than 2 g per day as she is expected to remain sodium avid based on her chest CT findings # Acute on chronic respi failure Chest CT showed emphysema, mild pulmo congestion, mild pulmo Htn Dc IV lasix. Start po lasix 10 mg po bid as above. Low Na diet Recommend outpt PFT & sleep study Inhalers, pulmo toilet, incentive spirometry # Hx of CAD s/p CABG continue cardioprudent medications # BLE edema Lasix as above # Htn Hold BP meds # DM2 Per primary team # Dementia Supportive care # Hx of CVA, severe BLE osteoarthritis PT/OT # Dispo Family requested SNF dc. Refer to case mngt.
[2022-06-29] MEDS: FUROSEMIDE 20 MG TABLET PO SCH (17:14)
[2022-06-29] MEDS: ROPINIROLE HCL 0.25 MG TAB PO SCH (20:31)
[2022-06-29] MEDS: FLUOCINOLONE ACETONIDE OIL TOP SCH (20:32)
[2022-06-29] MEDS: HYDROXYUREA 500 MG CAP PO SCH (21:00)
[2022-06-30 05:13] LABS: Albumin 2.6 g/dL (3.4-5.0); Bilirubin Direct 0.1 mg/dL (0-0.2); Bilirubin Total 0.4 mg/dL (0.2-1.0); Phosphorus 3.5 mg/dL (2.5-4.9); Protein, Total 6.6 g/dL (6.4-8.2)
--- NOTE | 2022-06-30 05:16 | P.PN ---
Date of Service: 06/29/22 Subjective Patient is an 82-year-old female who presented to the hospital with non-ST elevation myocardial infarction. Patient proceeded with a cardiac catheterization. Patient had diffuse multivessel disease but decision was made for medical management. Postcardiac catheterization patient developed elevated creatinine. Patient's home medications were continued. Patient's creatinine did show some improvement 36 hours after cardiac catheterization. However the next morning creatinine had worsened. Patient's blood pressure had dropped the night before to 80s over 40s. Patient appears to have developed acute tubular necrosis with contrast-induced nephropathy. We have been trying to rehydrate pa deepti. Echocardiogram with diastolic heart failure. Monitoring volume status closely. CT without contrast performed per nephrology. COPD changes. Patient had been given Lasix 80 mg IV every 12 but this has been changed to 10 mg p.o. twice a day. Patient has had very minimal intake and patient's urine output has increased. In the setting of ATN I think we need to increase patient's volume intake so I will start IV fluids since she is not drinking that much. Continue monitoring renal function and volume status. Family has been taking care of patient at home and she gets around with a motorized scooter. However, she will need to continue with longterm facility placement per family's request. Social work consultation placed. Physical Examination - Vital Signs reviewed - Physical Exam General: Alert, In no apparent distress, lethargic Respiratory: Clear to auscultation bilaterally Cardiovascular: Regular rate/rhythm, Normal S1 S2, Systolic murmur Gastrointestinal: Normal bowel sounds, Soft and benign, Non-distended, No tenderness Musculoskeletal: No clubbing, No swelling, No tenderness Neurological: Generalized weakness Assessment & Plan - Problems (Diagnosis) (1) Chest pain, rule out acute myocardial infarction Current Visit: No Status: Acute (2) Diastolic CHF, acute on chronic; HFpEF Current Visit: No Status: Acute (3) History of carotid endarterectomy Current Visit: No Status: Acute (4) Acute on CKD; contrast induced nephropathy Current Visit: No Status: Chronic Qualifiers: Heart failure chronicity: chronic Qualified Code(s): I50.32 - Chronic diastolic (congestive) heart failure (5) Coronary artery disease due to type 2 diabetes mellitus Current Visit: No Status: Chronic (6) Diabetic neuropathy Current Visit: No Status: Chronic Qualifiers: Diabetes mellitus type: type 2 Diabetes mellitus complication detail: diabetic polyneuropathy Qualified Code(s): E11.42 - Type 2 diabetes mellitus with diabetic polyneuropathy (7) HTN (hypertension) Current Visit: No Status: Chronic Qualifiers: Hypertension type: primary hypertension Qualified Code(s): I10 - Essential (primary) hypertension (8) Recurrent cerebrovascular accidents (CVAs) Current Visit: No Status: Chronic - Plan Continue with POC as mentioned below; -s/p cardiac catheterization; diffuse multivessel CAD with no intervention; medical management -Cardiology consultation appreciated; Echocardiogram reviewed -Monitoring renal function closely; continues to increase this morning. Multifactorial. Probably ATN in the setting of contrast-induced nephropathy -Continue with statin therapy and antiplatelet therapy. Holding blood pressure medications -DC diabetic meds; monitor BS closely -Pt was hypotensive, and we have discontinued antihypertensives; monitor BP closely -Patient urine output increased. 1500 cc over 12-hour shift. Minimal intake over this time. We will go ahead and start IV fluids continue with gentle hydration *Clinically patient is weak and she transfers and takes very few steps. She gets around with an electric motor scooter. Her daughters provide assistance with her day-to-day care. Plan for patient to go to SNF Discharge Plan: SNF Plan to discharge in: Greater than 2 days - Advance Directives Does patient have a Living Will: No Does patient have a Durable POA for Healthcare: No - Code Status/Comfort Care Code Status Assessed: Yes Code Status: Full Code Critical Care: No Time Spent Managing PTS Care (In Minutes): 35
[2022-06-30 05:22] LABS: Potassium 4.9 mEq/L (3.5-5.1)
[2022-06-30] MEDS ORDERED: NA CHLORIDE 0.9% 1,000 ML IV SCH ×2 (06:00→13:00)
[2022-06-30] MEDS: CLOPIDOGREL 75 MG TABLET PO SCH (09:00)
[2022-06-30] MEDS: FUROSEMIDE 20 MG TABLET PO SCH ×2 (09:01→16:58)
[2022-06-30] MEDS: ATORVASTATIN 40 MG TAB PO SCH ×2 (09:02→20:31)
[2022-06-30] MEDS: PREGABALIN 75 MG CAP PO SCH ×2 (09:03→20:31)
[2022-06-30] MEDS: MAGNESIUM OXIDE 400 MG TAB FT SCH (09:03)
[2022-06-30] MEDS: VITAMIN D 1000 UNIT TAB PO SCH (09:03)
[2022-06-30] MEDS: oxyBUTYnin chloride 5 MG TAB PO SCH ×2 (09:04→20:31)
[2022-06-30] MEDS: ASPIRIN 81 MG CHEWABLE TABLET PO SCH (09:04)
[2022-06-30] MEDS: HYDROXYUREA 500 MG CAP PO SCH ×2 (09:04→21:00)
[2022-06-30] MEDS: INSULIN GLARGINE 100 UNIT/ML SQ SCH ×2 (09:07→20:32)
[2022-06-30] MEDS: INSULIN -REGULAR HUMAN 50 UNIT/0.5 ML ML SQ SCH ×4 (09:09→21:00)
[2022-06-30] MEDS: CEFTRIAXONE 1,000 MG in NA CHLORIDE 0.9% 50 ML IVPB SCH (10:55)
--- NOTE | 2022-06-30 12:59 | P.PN ---
Subjective Date of Service: 06/30/22 Chief Complaint: WEAKNESS Subjective: No new changes AMANDA HAS MANY MEDICAL ISSUES INCLUDING, CAD, CHF, DIABETIC VASCULOPATHY, RECURRENT STROKES, MORBID OBESITY ETC. SHE CAME TO OFFICE AND HAD CHEST PAIN THAT WAS RETROSTERNAL WITH SOME DIAPHORESIS. SHE WAS SENT TO ER BY AMBULANCE. SHE WAS TO HAVE CATH BUT HER RENAL FUNCTION IS POOR WITH CREAT ABOUT 3. AT AGE OF 82 SHE WITH THAT LOW RENAL FUNCTION SHE CAN'T GET CATH DONE. SHE WILL BE MANAGED MEDICALLY. I CALLED IN ENGINEERING TECHNICAL ANALYST FOR RENAL FUNCTION. Review of Systems 10-point ROS is otherwise unremarkable General: Weakness, Malaise Physical Examination - Vital Signs Temperature: 99.0 F Blood Pressure: 126/57 Pulse: 67 Respirations: 17 Pulse Ox (%): 92 - Physical Exam General: Oriented x3, Mild distress, Obese HEENT: Atraumatic, PERRLA, EOMI Neck: Supple, JVD not distended Respiratory: Clear to auscultation bilaterally, Normal air movement Cardiovascular: Regular rate/rhythm, Normal S1 S2 Gastrointestinal: Normal bowel sounds, No tenderness Musculoskeletal: No tenderness Integumentary: No rashes Neurological: Normal speech, Normal tone, Normal affect Lymphatics: No axilla or inguinal lymphadenopathy - Studies Medications List Reviewed: Yes Assessment And Plan - Current Problems (Diagnosis) (1) Acute on chronic renal failure Current Visit: Yes Status: Acute Plan: SHE POSSIBLY WILL STAY ABOUT 3 ON CREAT. SHE NEEDS SMALL DOSE OF DIURETIC (2) Chest pain, rule out acute myocardial infarction Current Visit: No Status: Chronic Plan: SHE WILL BE MANAGED MEDICALLY. NOT A CATH OR SURGICAL CANDIDATE WITH POOR GENERAL CONDITION. (3) Coronary artery disease due to type 2 diabetes mellitus Current Visit: No Status: Chronic
[2022-06-30 16:41] LABS: Specific Gravity 1.008 (1.005-1.030); Urine Bacteria <20 /HPF (<20); Urine Bilirubin NEGATIVE (Negative); Urine Blood Negative (Negative); Urine Clarity Clear (Clear); Urine Color Colorless (Yellow); Urine Crystals Unidentified Few /HPF (None Seen); Urine Glucose NEGATIVE (Negative); Urine Protein NEGATIVE (Negative); Urine RBC <5 /HPF (None Seen); Urine Urobilinogen Normal (Normal)
[2022-06-30] MEDS ORDERED: WATER FOR INJ,STERILE 10 ML IM PRN (18:36)
[2022-06-30] MEDS ORDERED: ZIPRASIDONE MESYLA 20 MG/VIAL IM PRN (18:36)
[2022-06-30] MEDS: ROPINIROLE HCL 0.25 MG TAB PO SCH (20:31)
[2022-06-30] MEDS: FLUOCINOLONE ACETONIDE OIL TOP SCH (20:31)
[2022-06-30] MEDS: HALOPERIDOL LACT 5 MG/ML INJ IV PRN (22:02)
[2022-06-30] MEDS: THIAMINE 200 MG/2 ML INJ IVP SCH (22:03)
--- NOTE | 2022-07-01 01:25 | PN ---
Date of Progress Note: 06/30/2022 Chief Complaint: Acute on chronic kidney injury. Subjective: The patient developed acute kidney injury secondary to cardiorenal syndrome and contrast nephropathy. The patient is undergoing workup to rule out allergic interstitial nephritis related t o PPI. Serum creatinine level has increased from 2.3 to 2.9, subsequently to 3.3. PPI, pantoprazole was stopped. Blood pressure remains in stable range. Patient is started on midodrine 3 times per d ay to maintain the blood pressure and prevent renal hypoperfusion. Review of Systems: Patient denies chest pain, palpitation. She is somewhat confused. She cannot provide review of syst ems. Physical Examination: Lungs: Normal respiratory effort. Heart: S1-S2. Abdomen: Soft. Extremities: Slight edema. Laboratory Data: Sodium 131, potassium 4.9, glucose 219, chloride 102, CO2 24, BUN 76, creatinine 2. 83, total bilirubin 0.4. Impression: 1.Acute on chronic kidney injury. Continue hydration. Recommend to avoid high sodium intake. Marsha ent is on low-sodium diet to prevent congestive heart failure. 2.Relative hypertension. Blood pressure in normal ranges. Pending serum cortisol level to rule out adrenal insufficiency. Continue midodrine for blood pressure support. 3.Cardiorenal syndrome. Previously, cardiac records showed ejection fraction of 55%-60% and diastol ic dysfunction. She has right-sided heart failure and pulmonary hypertension. Dilated main pulmonar y artery was visualized on chest CT scan. She has bilateral lower extremity edema. BNP remains elev ated. Patient may benefit from IV Lasix for volume control. 4.Acute on chronic respiratory failure. Patient has lymphedema, mild pulmonary congestion, mild pul monary hypertension. Lasix IV was used and patient was switched to Lasix p.o. Continue 10 mg twice a day for sodium balance. 5.Acute on chronic respiratory failure. Continue incentive spirometry, further recommendation from Pulmonary. 6.Bilateral lower extremity edema. Lasix as above. 7.Hypertension. Hold blood pressure medication due to hypotensive episodes. 8.Acute on chronic kidney injury. Monitor renal function and make further recommendation if patient needs dialysis support. EB/MODL Voice ID: [id number] Report ID: [id number]
[2022-07-01] MEDS: INSULIN -REGULAR HUMAN 50 UNIT/0.5 ML ML SQ SCH ×4 (07:30→21:00)
[2022-07-01 08:38] LABS: Albumin 2.9 g/dL (3.4-5.0); Phosphorus 3.1 mg/dL (2.5-4.9); Potassium 4.5 mEq/L (3.5-5.1)
[2022-07-01] MEDS: INSULIN GLARGINE 100 UNIT/ML SQ SCH ×2 (09:00→21:00)
[2022-07-01] MEDS: ASPIRIN 81 MG CHEWABLE TABLET PO SCH (09:00)
[2022-07-01] MEDS: VITAMIN D 1000 UNIT TAB PO SCH (09:00)
[2022-07-01] MEDS: THIAMINE 200 MG/2 ML INJ IVP SCH (09:00)
[2022-07-01] MEDS: PREGABALIN 75 MG CAP PO SCH (09:00)
[2022-07-01] MEDS: oxyBUTYnin chloride 5 MG TAB PO SCH ×2 (09:00→21:00)
[2022-07-01] MEDS: MAGNESIUM OXIDE 400 MG TAB FT SCH (09:00)
[2022-07-01] MEDS: FUROSEMIDE 20 MG TABLET PO SCH (09:00)
[2022-07-01] MEDS: CLOPIDOGREL 75 MG TABLET PO SCH (09:00)
[2022-07-01] MEDS: HYDROXYUREA 500 MG CAP PO SCH ×2 (09:00→21:00)
--- NOTE | 2022-07-01 15:00 | PN ---
Date of Progress Note: 07/01/2022 Subjective: The patient has altered mental status. The patient was admitted to the hospital with acute kidney injury on chronic kidney disease, over volume. Today, the patient has altered mental status. Physical Examination: Vital Signs: Blood pressure 149/67, pulse of 64, afebrile. The patient had good urine output of 1100. Chest: Faint rales bilateral. Heart: S1, S2. Systolic murmur. Abdomen: Soft, nontender. Extremity: Trace edema. Neuro: Alert. No focality. Confused. Laboratory Data: Hemoglobin 11.1. Sodium 136, potassium 4.5, bicarb 28, BUN 55, creatinine 1.9, GFR 26, calcium 9.7, phosphorus 3.1. Albumin 2.9, corrected calcium 10.5. Serum protein electrophoresis is still pending. PC ratio 0.1. Serology is still pending. PTH 57. CT chest showing COPD with pulmonary edema. Current Medications: The patient on include; 1. Aspirin. 2. Nystatin. 3. Hydroxyurea. 4. Plavix. 5. Atorvastatin. 6. Requip. 7. Lyrica. 8. Lasix. 9. Zofran. 10. Insulin. 11. Diclofenac. 12. tylenol . 13. Cholecalciferol. 14. Oxybutynin. Assessment And Plan: 1. Chronic kidney disease, status post acute kidney injury, currently back to baseline, slightly on the wet side. I am going to go ahead and increase the Lasix to 40 daily and we will monitor the patient. I am going to go ahead and get chest x-ray for better evaluation of fluid status. 2. Hypertension, controlled, optimal. Continue current treatment. We will utilize blood pressure for more diuresis. 3. Hyponatremia secondary to cardiorenal. Continue diuresis. We are increasing the Lasix. 4. Altered mental status. Urinary tract infection has been ruled out. We will follow up with primary. I am going to go ahead and decrease Lyrica to daily. 5. Diabetes as by primary. Time spent examining the patient [id number], reviewing data, lab and radiology, placing order, discussing the case with the patient, discussing the case with the steam presser including nurse more than 35 minutes ETHAN/SULEIMAN Voice ID: [id number] Report ID: [id number] MTDD
--- NOTE | 2022-07-01 16:17 | RAD REPORT ---
EXAM DESCRIPTION: RAD - Chest Single View - 07/01/2022 3:31 pm CLINICAL HISTORY: COPD Chest pain. COMPARISON: Chest Single View dated 06/28/2022; Chest Single View dated 06/27/2022; Chest Single View dated 06/25/2022; Chest Single View dated 03/25/2021 FINDINGS: Portable technique limits examination quality. Moderate pulmonary edema. The heart is mildly enlarged with sternotomy wires and pacemaker wires note d. No displaced fractures. IMPRESSION: Moderate CHF versus volume overload.
[2022-07-01] MEDS: ROPINIROLE HCL 0.25 MG TAB PO SCH (21:00)
[2022-07-01] MEDS: FLUOCINOLONE ACETONIDE OIL TOP SCH (21:00)
--- NOTE | 2022-07-01 21:20 | P.PN ---
Subjective Date of Service: 07/01/22 Chief Complaint: CONFUSION, DISORIENTATION, ATIGATION Subjective: No new changes AMBIKA IS AGITATED, NOT ALLOWING ANY WORK DONE PER NURSES. SHE WAS TRIED ON GEODON AND THEN HALDOL WITH MINIMAL RESPONSE. I ALSO GAVE HER THIAMINE IV AND STARTED ON KEPPRA SHE HAD NO REPSONSE. AT TIMES PATIENTS HAVE ATYPICAL SEIZURES THAT MAKES THEM CONFUSED. FAMILY UNDERSTANDS. I DISCUSSED WITH DAUGHTER. Review of Systems 10-point ROS is otherwise unremarkable General: Weakness Physical Examination - Vital Signs Temperature: 99.3 F Blood Pressure: 146/65 Pulse: 63 Respirations: 18 Pulse Ox (%): 96 - Physical Exam General: Alert (AGITATED, NOT RESPONDING WITH CORRECT ANSWER. SHE GIVES IRRELEVANT ANSWERS. ), Mild distress, Obese HEENT: Atraumatic, PERRLA, EOMI Neck: Supple, JVD not distended Respiratory: Clear to auscultation bilaterally, Normal air movement Cardiovascular: Regular rate/rhythm, Normal S1 S2 Gastrointestinal: Normal bowel sounds, No tenderness Musculoskeletal: No tenderness Integumentary: No rashes Neurological: Normal speech, Normal tone, Normal affect Lymphatics: No axilla or inguinal lymphadenopathy - Studies Medications List Reviewed: Yes Assessment And Plan - Current Problems (Diagnosis) (1) Acute on chronic renal failure Current Visit: Yes Status: Acute Plan: SHE POSSIBLY WILL STAY ABOUT 3 ON CREAT. SHE NEEDS SMALL DOSE OF DIURETIC SOME FLUID OVERLOAD. WILL GIVE LASIX IV 20 MG. THIS IS A DIFFICULT BALANCE BETWEEN RENAL FAILURE AND CHF. PROGNOSIS IS POOR. FAMILY WANTS DNR STATUS IF OKAYED BY TWO DOCTORS. I AM GOING TO ASK DR. MORRIS TO DOCUMENT IN ADDITION TO ME IF OKAY WITH HIM. (2) Chest pain, rule out acute myocardial infarction Current Visit: No Status: Chronic Plan: SHE WILL BE MANAGED MEDICALLY. NOT A CATH OR SURGICAL CANDIDATE WITH POOR GENERAL CONDITION. (3) Coronary artery disease due to type 2 diabetes mellitus Current Visit: No Status: Chronic (4) Metabolic encephalopathy Current Visit: Yes Status: Acute Plan: HER CONFUSION CAN BE FROM UREMIA, DEMENTIA RELATED HOSPITAL PSYCHOSIS. MEDS ABOVE TRIED. SHE WILL NEED NH AND POSSIBLE HOSPICE IF SHE DOES NOT RECOVER. (5) Diastolic CHF, acute on chronic Current Visit: No Status: Acute Plan: LASIX PRN WITH ANY DIURETICS HER KIDNEYS MAY GET WORSE THIS IS A DIFFICULT BALANCE TO ACHIEVE.
[2022-07-01] MEDS ORDERED: FUROSEMIDE 20 MG/ 2ML VIAL IV STA (21:23)
[2022-07-01] MEDS: levETIRAcetam 250 MG in NA CHLORIDE 0.9% 100 ML IV SCH (21:38)
[2022-07-01] MEDS: LIDOCAINE 4% PATCH TOP SCH (21:59)
[2022-07-01] MEDS: TRAMADOL HCL 50 MG TAB PO PRN (21:59)
--- NOTE | 2022-07-01 22:32 | RAD REPORT ---
EXAM DESCRIPTION: US - Extrem Venous W Compress Fan - 07/01/2022 10:20 pm CLINICAL HISTORY: EDEMA Bilateral leg edema and swelling. COMPARISON: <Comparisons> TECHNIQUE: Real-time sonographic interrogation of the left and right lower extremity deep venous sys tems was performed. FINDINGS: Normal compressibility, flow augmentation, phasic flow and spontaneous flow is identified in both the left and right lower extremity deep venous systems. IMPRESSION: No sonographic evidence of left or right lower extremity deep venous thrombosis.
[2022-07-02] MEDS: TRAMADOL HCL 50 MG TAB PO PRN ×2 (03:08→04:53)
[2022-07-02] MEDS: HALOPERIDOL LACT 5 MG/ML INJ IV PRN ×3 (04:47→20:05)
[2022-07-02 06:13] LABS: Absolute Lymphocytes (CBC) 1.1 K/uL (0.7-4.9); Hematocrit 42.1 % (36.0-45.0); Lymphocytes % 10.7 % (15.3-44.8); MPV 10.1 fL (7.6-11.3); RBC Red Blood Cell Count 3.48 M/uL (3.86-4.86)
[2022-07-02 06:28] LABS: Albumin 2.9 g/dL (3.4-5.0); Potassium 4.7 mEq/L (3.5-5.1)
[2022-07-02] MEDS: INSULIN -REGULAR HUMAN 50 UNIT/0.5 ML ML SQ SCH ×4 (07:30→21:00)
[2022-07-02 08:41] LABS: Blood Morphology Comment NOTED (NOT SEEN); Platelet Estimate INCR; Platelets, Giant 1+
[2022-07-02 08:43] LABS: Anisocytosis 3+; Macrocytosis 3+
[2022-07-02 08:44] LABS: Poikilocytosis 1+; Teardrop Cell 1+
[2022-07-02] MEDS: MAGNESIUM OXIDE 400 MG TAB FT SCH (09:00)
[2022-07-02] MEDS: oxyBUTYnin chloride 5 MG TAB PO SCH ×2 (09:00→21:00)
[2022-07-02] MEDS: CLOPIDOGREL 75 MG TABLET PO SCH (09:00)
[2022-07-02] MEDS ORDERED: FUROSEMIDE 40 MG TABLET PO SCH (09:00)
[2022-07-02] MEDS: THIAMINE 200 MG/2 ML INJ IVP SCH (09:00)
[2022-07-02] MEDS: ATORVASTATIN 40 MG TAB PO SCH (09:00)
[2022-07-02] MEDS: PREGABALIN 75 MG CAP PO SCH (09:00)
[2022-07-02] MEDS: levETIRAcetam 250 MG in NA CHLORIDE 0.9% 100 ML IV SCH (09:00)
[2022-07-02] MEDS: VITAMIN D 1000 UNIT TAB PO SCH (09:00)
[2022-07-02] MEDS: ASPIRIN 81 MG CHEWABLE TABLET PO SCH (09:00)
[2022-07-02] MEDS: HYDROXYUREA 500 MG CAP PO SCH ×2 (09:00→21:00)
[2022-07-02] MEDS: INSULIN GLARGINE 100 UNIT/ML SQ SCH ×2 (09:00→21:00)
[2022-07-02] MEDS ORDERED: LORazepam 2 MG/ML VIAL IM ONE (11:04)
--- NOTE | 2022-07-02 13:01 | PN ---
Date of Progress Note: 07/02/2022 Subjective: The patient is still with altered mental status. The patient confused. Physical Examination: Vital Signs: Blood pressure 121/68, pulse of 60, afebrile. Chest: Decreased entry bilateral base. Heart: S1, S2. Regular. Abdomen: Soft, obese. Could not appreciate any organomegaly. Extremities: Trace edema. Neuro: The patient moving all 4 extremities without any focality, but the patient is completely confused and hallucinating. Laboratory Data: WBC 10.2, hemoglobin 10.3. Sodium 134, potassium 4.7, bicarb 25, BUN 49, creatinine 2, GFR 25, calcium 9.8, phosphorus of 3, albumin 2.9, corrected calcium is 10.7. Current Medications: The patient on include hydroxyurea, aspirin, Plavix, Lovenox, atorvastatin, Keppra, haloperidol, Ativan, Lyrica, Requip, Lasix 40 daily, Zofran, oxybutynin, cholecalciferol. Assessment And Plan: 1. Acute kidney injury on chronic kidney disease, plateaued, still slightly on the wet side. I am going to continue the diuresis. We will switch the Lasix to IV as the patient not cooperative and does not take anything by p.o. and we will monitor the patient. 2. Hypertension, controlled, optimal. Continue current treatment. I am going to switch the Lasix as above. 3. Coronary artery disease with congestive heart failure. We will try to optimize fluid as above. 4. Altered mental status secondary to possible to delirium. Discussed with Dr. Gomez. We will proceed with Neuro eval and CT head and we will follow up. 5. Hyponatremia, dilutional. Change Lasix to IV. 6. Hypercalcemia, possible secondary to immobilization. I am going to discontinue all vitamin D. Currently PTH appropriately leveled. We will follow up. Time spent examining the patient [id number], reviewing data, lab and radiology, placing order, discussing the case with the patient, discussing the case with the production team advisor including nurse more than 35 minutes SHAHNAZ Voice ID: [id number] Report ID: [id number] [facility]
[2022-07-02] MEDS ORDERED: VALPROATE SODIUM INJ 1,000 MG in NA CHLORIDE 0.9% 100 ML IV ONE (14:00)
[2022-07-02] MEDS: FUROSEMIDE 40 MG/4 ML VIAL IV SCH (14:12)
[2022-07-02] MEDS: ENOXAPARIN 30 MG/0.3 ML SQ SCH (17:00)
--- NOTE | 2022-07-02 17:48 | P.PN ---
Subjective Date of Service: 07/02/22 Chief Complaint: CONFUSION, DISORIENTATION, ATIGATION Subjective: Worsening AMBIKA IS AGITATED, NOT ALLOWING ANY WORK DONE PER NURSES. SHE WAS TRIED ON GEODON AND THEN HALDOL WITH MINIMAL RESPONSE. I ALSO GAVE HER THIAMINE IV AND STARTED ON KEPPRA SHE HAD NO REPSONSE. AT TIMES PATIENTS HAVE ATYPICAL SEIZURES THAT MAKES THEM CONFUSED. FAMILY UNDERSTANDS. I DISCUSSED WITH DAUGHTER. DESPITE ALL MEASURES HER AGITATION AND MENTATION ARE GETTING WORSE. FAMILY DOES NOT WANT MRI OR SPINAL TAP. I HAVE BEEN TALKING TO DAUGHTER AND ALSO POA SON TODAY. Review of Systems is unable to be obtained General: Weakness Physical Examination - Vital Signs Temperature: 98.7 F Blood Pressure: 122/70 Pulse: 68 Respirations: 16 Pulse Ox (%): 98 - Physical Exam General: Demented, Moderate distress, Delirious, Obese HEENT: Atraumatic, PERRLA, EOMI Neck: Supple, JVD not distended Respiratory: Clear to auscultation bilaterally, Normal air movement Cardiovascular: Regular rate/rhythm, Normal S1 S2 Gastrointestinal: Normal bowel sounds, No tenderness Musculoskeletal: No tenderness Integumentary: No rashes Neurological: Normal speech, Normal tone, Normal affect, Other (AGTIATION. SHE WAKES UP RESPONDS BUT DOES NOT KNOW ANY ONE WHO SHE KNEW BEFORE. ) Lymphatics: No axilla or inguinal lymphadenopathy - Studies Medications List Reviewed: Yes Assessment And Plan - Current Problems (Diagnosis) (1) Acute on chronic renal failure Current Visit: Yes Status: Acute Plan: SHE POSSIBLY WILL STAY ABOUT 3 ON CREAT. SHE NEEDS SMALL DOSE OF DIURETIC SOME FLUID OVERLOAD. WILL GIVE LASIX IV 20 MG. THIS IS A DIFFICULT BALANCE BETWEEN RENAL FAILURE AND CHF. PROGNOSIS IS POOR. FAMILY WANTS DNR STATUS IF OKAYED BY TWO DOCTORS. I AM GOING TO ASK DR. MORRIS TO DOCUMENT IN ADDITION TO ME IF OKAY WITH HIM. (2) Chest pain, rule out acute myocardial infarction Current Visit: No Status: Chronic Plan: SHE WILL BE MANAGED MEDICALLY. NOT A CATH OR SURGICAL CANDIDATE WITH POOR GENERAL CONDITION. (3) Coronary artery disease due to type 2 diabetes mellitus Current Visit: No Status: Chronic (4) Metabolic encephalopathy Current Visit: Yes Status: Acute Plan: HER CONFUSION CAN BE FROM UREMIA, DEMENTIA RELATED HOSPITAL PSYCHOSIS. MEDS ABOVE TRIED. SHE WILL NEED NH AND POSSIBLE HOSPICE IF SHE DOES NOT RECOVER. WE TRIED GEODON, HALDOL, DEPAKOTE ONE AT A TIME WITH NO RESPONSE. ATIVAN SEEMS TO WORK FOR TWO HOURS BUT IS NOT GOOD FOR LONG RUN. I CALLED DR. ALEJANDRA, WHO STARTED DEPAKOTE I TALKED TO SON AND HE UNDERSTANDS. I RAISED HALDOL TO HIGHER DOSE FOR HOPE OF RESPONSE. THIAMINE 100 MG IV HAS BEEN ADDED ALSO. PROGNOSIS POOR. WE CAN'T DO MRI WITH AGITATION AND FAMILY REFUSAL. CT WILL BE TRIED BUT WILL NOT CHANGE COURSE OF THERAPY. SHE NEEDS NH BUT INSURANCE WILL NOT APPROVE SO FAR. (5) Diastolic CHF, acute on chronic Current Visit: No Status: Acute Plan: LASIX PRN WITH ANY DIURETICS HER KIDNEYS MAY GET WORSE THIS IS A DIFFICULT BALANCE TO ACHIEVE.
[2022-07-02] MEDS ORDERED: D5W 1,000 ML IV SCH (21:00)
[2022-07-02] MEDS: ENSURE MAX PROTEIN 330 ML LIQUID PO SCH (21:00)
[2022-07-02] MEDS: DIVALPROEX DR 500MG TAB PO SCH (21:00)
[2022-07-02] MEDS: ROPINIROLE HCL 0.25 MG TAB PO SCH (21:00)
[2022-07-02] MEDS: FLUOCINOLONE ACETONIDE OIL TOP SCH (21:00)
[2022-07-03] MEDS: HALOPERIDOL LACT 5 MG/ML INJ IV PRN ×3 (00:36→10:12)
--- NOTE | 2022-07-03 01:25 | CON ---
Reason For Consultation: Consultation called by Dr. Gomez because the patient continues to be agitat ed despite multiple antipsychotics and sedative medications. History Of Present Illness: Ms. Rodriguez is an 82-year-old patient who was admitted to [facility] on 06/25/[address]-segment myocardial infarction and renal failure. She had a cardiac cat heterization by Dr. Turner done on 06/26. She has had a prolonged hospitalization now 7 days in [facility], but yesterday patient became very agitated, combative, was pulling out her IVs, cursing at staf f, and unable to be consoled. Dr. Gomez treated her with multiple medications, which included Geodon , Haldol, thiamine, Keppra. However, the patient's agitation continued, grabbing and pulling at her IVs, pulling out any tubes, pulling staff. This was discussed with Dr. Gomez and the patient and the y did not want further workup such as MRI or spinal tap to further evaluate her condition. I spoke w ith Dr. Gomez and at that time noted the patient is likely to be in some form of delirium and suggest ed Depakote be loaded and she had Depakote 1 g and was put on 500 mg IV twice daily. Patient has not yet followed up after that. She did have venous extremity Dopplers and it was negative. Chest x-ra y showed no findings except moderate CHF versus volume overload. Laboratory Studies: Showed normal white blood cell count 10.2, hemoglobin normal at 13.9, platelets normal at 213. INR 1.5. Arterial blood gas unremarkable. Chemistries show renal insufficiency a cr eatinine 2.02, glucose around 223, sodium 134, potassium 4.7, BUN 49. Ammonia less than 10. Liver f unction studies normal. Vitamin B12 level 332. Urinalysis from the did suggest urinary tract i nfection. She is treated by Dr. Gomez receiving hydration. Her cultures only grew between 10 and 10 0,000 colony-forming units, did not suggest an infection. Past Medical History: Hypertension, dyslipidemia, diabetes mellitus type 2, diabetic peripheral vasc ular disease, coronary artery disease, diastolic heart failure, thrombocytosis, and carotid stenosis. Allergies: AMOXICILLIN, ANGIOTENSIN, DEMEROL, CODEINE, JANUVIA, METFORMIN, NIASPAN, QUINOLONES, STAT INS, TETANUS, AND ZETIA. Medications: At home, atorvastatin 40 mg daily; diclofenac 1% topical 4 times daily; Eliquis 5 mg tw ice daily; furosemide 20 mg daily; Hydrea 500 mg capsule daily; hydroxyzine 25 mg every 8 hours; Leve michael FlexPen 25 units at breakfast and 10 units at supper; meclizine 25 mg 3 times daily as needed, na ltrexone 1.5 mg daily, pantoprazole 40 mg daily, Lyrica 75 mg every 12 hours, ropinirole 0.5 mg daily , spironolactone 25 mg daily. Social History: No alcohol, tobacco, or IV drug use. Review of Systems: Not possible. Patient is shouting, screaming and not following instructions. Physical Examination: Vital Signs: Blood pressure 122/70, pulse 68, respiratory rate 16, temperature 98.7, ox saturation 9 8%. Weight 269 pounds, height 5 feet 3-1/2 inches. General: Ms. Rodriguez is lying in bed. Her daughter is at bedside and nurses on the other side. Drake erickson has been shouting, cursing at the nearby staff, pulling out IVs, pulling her clothes, and not foll owing instructions. Neuro: She does not appear to have any focal deficits in terms of face, arm, or leg. Moving extremi ties equally well. Does not appear to have any issues such as air movement and did not seem to have particular pain in any area. Assessment: Ms. Rodriguez is an 82-year-old patient with delirium, possible multiple etiologies. She gatica s had around 7 days in hospital, has had non ST-segment myocardial infarction and renal failure may b e complicating factors. She may have also a baseline cognitive impairment. She does not have the ap pearance of a focal neurological deficit or stroke as etiology. Possible seizures may be contributin g factor. Plan: 1.As noted, patient is now loaded with Depakote and will continue 500 mg twice daily. May adjust do se as appropriate. 2.May continue Geodon 10 mg IM every 6-8 hours as needed. 3.Also consider Ativan 0.5 mg every 4 hours as needed and patient may be able to get an EEG if she i s cooperative. Family at this point does not want MRI or lumbar puncture done, those could still be asked again tomorrow. LB/MODL Voice ID: [id number] Report ID: [id number]
[2022-07-03] MEDS: INSULIN -REGULAR HUMAN 50 UNIT/0.5 ML ML SQ SCH ×5 (07:30→20:10)
[2022-07-03] MEDS: NACHLORIDE 0.45% 1,000 ML IV SCH (08:31)
[2022-07-03] MEDS: oxyBUTYnin chloride 5 MG TAB PO SCH ×2 (08:33→20:08)
[2022-07-03] MEDS: ENSURE MAX PROTEIN 330 ML LIQUID PO SCH ×2 (08:33→20:08)
[2022-07-03] MEDS: DIVALPROEX DR 500MG TAB PO SCH ×2 (08:33→20:08)
[2022-07-03] MEDS: ASPIRIN 81 MG CHEWABLE TABLET PO SCH (08:33)
[2022-07-03] MEDS: ATORVASTATIN 40 MG TAB PO SCH (08:33)
[2022-07-03] MEDS: LIDOCAINE 4% PATCH TOP SCH (08:33)
[2022-07-03] MEDS: HYDROXYUREA 500 MG CAP PO SCH ×2 (08:33→20:09)
[2022-07-03] MEDS: INSULIN GLARGINE 100 UNIT/ML SQ SCH ×2 (08:34→20:11)
[2022-07-03] MEDS: CLOPIDOGREL 75 MG TABLET PO SCH (08:34)
[2022-07-03] MEDS: PREGABALIN 75 MG CAP PO SCH (08:34)
[2022-07-03] MEDS: MAGNESIUM OXIDE 400 MG TAB FT SCH (08:34)
[2022-07-03] MEDS: FUROSEMIDE 40 MG/4 ML VIAL IV SCH (08:38)
[2022-07-03] MEDS: THIAMINE 200 MG/2 ML INJ IVP SCH (08:45)
[2022-07-03 09:54] LABS: Absolute Lymphocytes (CBC) 0.9 K/uL (0.7-4.9); Hematocrit 43.9 % (36.0-45.0); Lymphocytes % 8.6 % (15.3-44.8); MPV 10.3 fL (7.6-11.3)
[2022-07-03 10:01] LABS: Albumin 2.8 g/dL (3.4-5.0); Phosphorus 3.4 mg/dL (2.5-4.9); Potassium 5.1 mEq/L (3.5-5.1)
[2022-07-03 10:03] LABS: MCV 118.7 fL (80-100)
--- NOTE | 2022-07-03 12:50 | P.PN ---
Subjective Date of Service: 07/03/22 Chief Complaint: CONFUSION, DISORIENTATION, AGIGATION SHE IS SLOWLY SLIPPING INTO COMA. SHE HAS BEEN SEDATED TO CUT DOWN SEVERE AGITATION. DR. ALEJANDRA PUT HER ON IV DEPAKOT ALL OTHER MEASURES FAILED. I HAD LONG DISCUSSION WITH SON AND DAUGHTER YESTERDAY. SON IS MORGAN AND HE WANTS DNR STATUS FOLLOWING HER WISHES. THEY ALSO UNDERSTAND THAT THIS IS DECLINE THAT HAS STARTED FOR SOMEONE WHO HAS SEVERE CHRONIC ILLNESSES. Review of Systems 10-point ROS is otherwise unremarkable General: Weakness Physical Examination - Vital Signs Temperature: 98.3 F Blood Pressure: 146/67 Pulse: 74 Respirations: 16 Pulse Ox (%): 94 - Physical Exam General: Unresponsive, Obese HEENT: Atraumatic, PERRLA, EOMI Neck: Supple, JVD not distended Respiratory: Clear to auscultation bilaterally, Normal air movement Cardiovascular: Regular rate/rhythm, Normal S1 S2 Gastrointestinal: Normal bowel sounds, No tenderness Musculoskeletal: No tenderness Integumentary: No rashes Neurological: Normal speech, Normal tone, Normal affect Lymphatics: No axilla or inguinal lymphadenopathy - Studies Medications List Reviewed: Yes Assessment And Plan - Current Problems (Diagnosis) (1) Acute on chronic renal failure Current Visit: Yes Status: Acute Plan: SHE POSSIBLY WILL STAY ABOUT 3 ON CREAT. SHE NEEDS SMALL DOSE OF DIURETIC SOME FLUID OVERLOAD. WILL GIVE LASIX IV 20 MG. THIS IS A DIFFICULT BALANCE BETWEEN RENAL FAILURE AND CHF. PROGNOSIS IS POOR. FAMILY WANTS DNR STATUS IF OKAYED BY TWO DOCTORS. I AM GOING TO ASK DR. MORRIS TO DOCUMENT IN ADDITION TO ME IF OKAY WITH HIM. (2) Chest pain, rule out acute myocardial infarction Current Visit: No Status: Chronic Plan: SHE WILL BE MANAGED MEDICALLY. NOT A CATH OR SURGICAL CANDIDATE WITH POOR GENERAL CONDITION. (3) Coronary artery disease due to type 2 diabetes mellitus Current Visit: No Status: Chronic Plan: DID NOT TOLERATE GENTLE HYDRATION. CHANGE TO PPN. IF CONTINUES TO DECLINE WILL OFFER HOSPICE. ALL MEASURES HAVE FAILED TO HELP HER RECOVER SO FAR. (4) Metabolic encephalopathy Current Visit: Yes Status: Acute Plan: HER CONFUSION CAN BE FROM UREMIA, DEMENTIA RELATED HOSPITAL PSYCHOSIS. MEDS ABOVE TRIED. SHE WILL NEED NH AND POSSIBLE HOSPICE IF SHE DOES NOT RECOVER. WE TRIED GEODON, HALDOL, DEPAKOTE ONE AT A TIME WITH NO RESPONSE. ATIVAN SEEMS TO WORK FOR TWO HOURS BUT IS NOT GOOD FOR LONG RUN. I CALLED DR. ALEJANDRA, WHO STARTED DEPAKOTE I TALKED TO SON AND HE UNDERSTANDS. I RAISED HALDOL TO HIGHER DOSE FOR HOPE OF RESPONSE. THIAMINE 100 MG IV HAS BEEN ADDED ALSO. PROGNOSIS POOR. WE CAN'T DO MRI WITH AGITATION AND FAMILY REFUSAL. CT WILL BE TRIED BUT WILL NOT CHANGE COURSE OF THERAPY. SHE NEEDS NH BUT INSURANCE WILL NOT APPROVE SO FAR. (5) Diastolic CHF, acute on chronic Current Visit: No Status: Acute Plan: LASIX PRN WITH ANY DIURETICS HER KIDNEYS MAY GET WORSE THIS IS A DIFFICULT BALANCE TO ACHIEVE.
[2022-07-03] MEDS ORDERED: NA CHLORIDE 0.9% 1,000 ML IV SCH (13:00)
--- NOTE | 2022-07-03 13:27 | PN ---
Date of Progress Note: 07/03/2022 Subjective: Patient was admitted to the hospital with the acute kidney injury, altered mental status , hyponatremia. Patient got worse by confusion. Patient kept discontinuing her IV fluid. Patient s een by Neurology. Family does not want to proceed with any imaging. Patient was loaded with the Kep pra. Objective: Vital Signs: When I saw the patient, blood pressure 146/67, pulse of 74. Chest: Clear to auscultation. Heart: S1, S2. Regular. Abdomen: Soft, nontender. Morbidly obese. Could not appreciate any organomegaly. Extremities: Trace edema. Neuro: Patient received Keppra. Open eyes spontaneously. No focality. Assessment And Plan: 1.Acute kidney injury secondary to prerenal, kidney function plateaued. Patient looked to me still on the dry side. Patient kept pulling her IV line. We will follow up. To encourage hydration after improving the mental status. Patient's overall mental status has been declining. Patient with poor prognosis overall. We will discuss with the family regarding of code status of no resuscitation. 2.Hypertension, controlled, optimal. Continue current medication. 3.Coronary artery disease with congestive heart failure, currently patient normal to the dry side. I am going to hold the Lasix. We will consider gentle hydration and we will follow up. 4.Hyponatremia secondary to depletional, poor intake. Follow up with the primary. Encourage oral h ydration. 5.Hyperglycemia. I am going to adjust her insulin. 6.Hypercalcemia secondary to immobilization and the dehydration secondary to the poor intake. I am going to start the patient on gentle hydration. Discontinue Lasix. 7.Altered mental status. Follow up with Neurology. ETHAN/SULEIMAN Voice ID: [id number] Report ID: [id number]
--- NOTE | 2022-07-03 13:46 | RAD REPORT ---
EXAM DESCRIPTION: CT - Head Brain Wo Cont - 07/03/2022 1:24 pm CLINICAL HISTORY: ams COMPARISON: Head Brain Wo Cont dated 11/21/2020; Head Brain Wo Cont dated 02/17/2017 TECHNIQUE: Noncontrast head CT images ad were obtained without IV contrast. Multiplanar reformats we re generated and reviewed. All CT scans are performed using dose optimization technique as appropriate and may include automated exposure control or mA/KV adjustment according to patient size. FINDINGS: No intracranial hemorrhage, mass, or edema. Midline structures are unremarkable. Normal ventricular caliber for age, stable. Mild diffuse parenchymal volume loss again noted. Small region of encephalomalacia in the posterior parietal region, stable. Peralta-white matter differen tiation is otherwise preserved, without evidence of acute infarct. No abnormal extra-axial fluid luba ections. Mastoid air cells and visualized portions of the paranasal sinuses are clear. No acute bony findings. IMPRESSION: No evidence of an acute intracranial process. Stable small region of encephalomalacia in the posterior parietal region.
[2022-07-03 14:56] LABS: Albumin, (SPE) 3.2 g/dL (3.8-4.8); Alpha-1-Globulins 0.3 g/dL (0.2-0.3); Alpha-2-Globulins 0.8 g/dL (0.5-0.9); Gamma Globulins 0.7 g/dL (0.8-1.7); INTERPRETATION REPORT
[2022-07-03] MEDS: HALOPERIDOL LACT 5 MG/ML INJ IM PRN ×2 (15:41→20:04)
[2022-07-03] MEDS ORDERED: LIDOCAINE 4% PATCH TOP ONE (16:37)
[2022-07-03] MEDS: ENOXAPARIN 30 MG/0.3 ML SQ SCH (16:40)
[2022-07-03] MEDS: FLUOCINOLONE ACETONIDE OIL TOP SCH (20:09)
[2022-07-03] MEDS: ROPINIROLE HCL 0.25 MG TAB PO SCH (20:09)
[2022-07-04] MEDS: NACHLORIDE 0.45% 1,000 ML IV SCH ×2 (01:40→09:21)
[2022-07-04 04:08] LABS: Hematocrit 44.1 % (36.0-45.0); Lymphocytes % 9.7 % (15.3-44.8); MCV 118.9 fL (80-100); MPV 10.5 fL (7.6-11.3); RBC Red Blood Cell Count 3.71 M/uL (3.86-4.86)
[2022-07-04] MEDS: HALOPERIDOL LACT 5 MG/ML INJ IV PRN ×3 (04:29→22:13)
[2022-07-04 04:31] LABS: Albumin 3.1 g/dL (3.4-5.0); Phosphorus 4.4 mg/dL (2.5-4.9); Potassium 4.8 mEq/L (3.5-5.1)
[2022-07-04] MEDS: ATORVASTATIN 40 MG TAB PO SCH (09:00)
[2022-07-04] MEDS: ASPIRIN 81 MG CHEWABLE TABLET PO SCH (09:00)
[2022-07-04] MEDS: oxyBUTYnin chloride 5 MG TAB PO SCH ×2 (09:00→21:00)
[2022-07-04] MEDS: MAGNESIUM OXIDE 400 MG TAB FT SCH (09:00)
[2022-07-04] MEDS: INSULIN GLARGINE 100 UNIT/ML SQ SCH ×2 (09:00→21:00)
[2022-07-04] MEDS: THIAMINE 200 MG/2 ML INJ IVP SCH (09:00)
[2022-07-04] MEDS: CLOPIDOGREL 75 MG TABLET PO SCH (09:00)
[2022-07-04] MEDS: LIDOCAINE 4% PATCH TOP SCH (09:00)
[2022-07-04] MEDS: ENSURE MAX PROTEIN 330 ML LIQUID PO SCH ×2 (09:00→21:00)
[2022-07-04] MEDS: HYDROXYUREA 500 MG CAP PO SCH ×2 (09:00→21:00)
[2022-07-04] MEDS: PREGABALIN 75 MG CAP PO SCH (09:00)
[2022-07-04] MEDS: DIVALPROEX DR 500MG TAB PO SCH ×2 (09:00→21:00)
[2022-07-04] MEDS: RIVASTIGMINE 4.6 MG/24 HR PATCH TD SCH (09:22)
[2022-07-04] MEDS: INSULIN -REGULAR HUMAN 50 UNIT/0.5 ML ML SQ SCH ×4 (09:22→21:00)
--- NOTE | 2022-07-04 12:42 | P.PN ---
Subjective Date of Service: 07/04/22 Chief Complaint: CONFUSION, DISORIENTATION, AGIGATION Subjective: Other (remains bedbound.) Physical Examination - Vital Signs Temperature: 97.9 F Blood Pressure: 114/65 Pulse: 82 Respirations: 18 Pulse Ox (%): 93 - Physical Exam General: Other (chronically ill-appearing.) HEENT: Atraumatic, Normocephalic Neck: Supple, JVD not distended Respiratory: Other (symmetric chest expansion) Cardiovascular: No rubs, No murmurs Gastrointestinal: Soft and benign, No guarding Musculoskeletal: No clubbing Integumentary: No warmth Neurological: Normal tone Urinary: Other (no bladder distention) External genitalia: Deferred Rectal: Deferred - Studies Medications List Reviewed: Yes Assessment And Plan - Plan # FIDENCIO 2/2 CRS1 + contrast nephropathy + prerenal state/ATN SCr increase from 2.2 to 2.6 Cont NS gtt for now Cont samayoa Encourage po fluid intake # CHF exacerbation TTE on 06/26/2022 showed normal LVEF at 55-60%, +diastolic dysfunction Has R-sided heart failure, +pulmo Htn on chest CT. +Dilated main pulmo artery. +BLE edema. BNP sig elevated. Also likely has HORACE/OHS Encourage po fluid intake Lasix on hold Random urine chemistry done on 06/28/2022 showed no secondary hyperaldosteronism. No indication for liza tamika therapy. Strictly low sodium diet less than 2 g per day as she is expected to remain sodium avid based on her chest CT findings # Acute on chronic respi failure Chest CT showed emphysema, mild pulmo congestion, mild pulmo Htn Low Na diet Recommend outpt PFT & sleep study Inhalers, pulmo toilet, incentive spirometry # Hx of CAD s/p CABG continue cardioprudent medications # Htn BP stable, not on anti-Htn meds Hold BP meds # DM2 Per primary team # AMS, delirium Hx of dementia Supportive care, per other services # Hx of CVA, severe BLE osteoarthritis PT/OT # Dispo Dc plan to SNF ongoing
[2022-07-04] MEDS: HALOPERIDOL LACT 5 MG/ML INJ IM PRN ×3 (12:55→22:17)
[2022-07-04] MEDS: ENOXAPARIN 30 MG/0.3 ML SQ SCH (16:18)
[2022-07-04] MEDS: FLUOCINOLONE ACETONIDE OIL TOP SCH (21:00)
[2022-07-04] MEDS: ROPINIROLE HCL 0.25 MG TAB PO SCH (21:00)
[2022-07-04 21:22] VITALS: O2SAT 96
--- NOTE | 2022-07-04 22:00 | P.PN ---
Subjective Date of Service: 07/04/22 Chief Complaint: CONFUSION, DISORIENTATION, AGIGATION Subjective: Worsening SHE IS SLOWLY SLIPPING INTO COMA. SHE HAS BEEN SEDATED TO CUT DOWN SEVERE AGITATION. DR. ALEJANDRA PUT HER ON IV DEPAKOT ALL OTHER MEASURES FAILED. I HAD LONG DISCUSSION WITH SON AND DAUGHTER YESTERDAY. SON IS MPOA AND HE WANTS DNR STATUS FOLLOWING HER WISHES. THEY ALSO UNDERSTAND THAT THIS IS DECLINE THAT HAS STARTED FOR SOMEONE WHO HAS SEVERE CHRONIC ILLNESSES. SHE IS SOMNOLENT MOST OF THE TIME. SHE DOES NOT ANSWER ANY QUESTIONS. SHE IS PULLING OUT ALL IVS. WE ARE NOT ABLE TO FEED OR HYDRATE HER. FAMILY DOES NOT WANT G TUBE OR NG TUBE. IT WILL MORE DANGEROUS IF SHE PULLS THAT. WE HAVE TRIED ALL MEDICATIONS TO CONTROL HER WITHOUT SUCCESS. DR. ALEJANDRA ALSO TIRED A COUPLE. AT THIS POINT FAMILY IS AGREEABLE TO HOSPICE WITH HER MULTIPLE MEDICAL ISSUES AND AGE OF 82. I AGREE. SHE HAS NO RESOURCES FOR NH SO I ADVISED FAMILY TO GO FOR NH WITH MEDICAID ASSIGNMENT. Review of Systems is unable to be obtained Physical Examination - Vital Signs Temperature: 97.6 F Blood Pressure: 124/73 Pulse: 87 Respirations: 20 Pulse Ox (%): 93 - Physical Exam General: Mild distress, Delirious (WHEN AWAKE. ), Unresponsive, Obese Neck: Supple Respiratory: Diminished Cardiovascular: Regular rate/rhythm Neurological: Abnormal speech (NO COGNITIVE CONVERSATION. ) - Studies Medications List Reviewed: Yes Assessment And Plan - Current Problems (Diagnosis) (1) Acute on chronic renal failure Current Visit: Yes Status: Acute Plan: SHE POSSIBLY WILL STAY ABOUT 3 ON CREAT. SHE NEEDS SMALL DOSE OF DIURETIC SOME FLUID OVERLOAD. WILL GIVE LASIX IV 20 MG. THIS IS A DIFFICULT BALANCE BETWEEN RENAL FAILURE AND CHF. PROGNOSIS IS POOR. FAMILY WANTS DNR STATUS IF OKAYED BY TWO DOCTORS. I AM GOING TO ASK DR. MORRIS TO DOCUMENT IN ADDITION TO ME IF OKAY WITH HIM. (2) Chest pain, rule out acute myocardial infarction Current Visit: No Status: Chronic Plan: SHE WILL BE MANAGED MEDICALLY. NOT A CATH OR SURGICAL CANDIDATE WITH POOR GENERAL CONDITION. (3) Coronary artery disease due to type 2 diabetes mellitus Current Visit: No Status: Chronic Plan: DID NOT TOLERATE GENTLE HYDRATION. CHANGE TO PPN. IF CONTINUES TO DECLINE WILL OFFER HOSPICE. ALL MEASURES HAVE FAILED TO HELP HER RECOVER SO FAR. (4) Metabolic encephalopathy Current Visit: Yes Status: Acute Plan: HER CONFUSION CAN BE FROM UREMIA, DEMENTIA RELATED HOSPITAL PSYCHOSIS. MEDS ABOVE TRIED. SHE WILL NEED NH AND POSSIBLE HOSPICE IF SHE DOES NOT RECOVER. WE TRIED GEODON, HALDOL, DEPAKOTE ONE AT A TIME WITH NO RESPONSE. ATIVAN SEEMS TO WORK FOR TWO HOURS BUT IS NOT GOOD FOR LONG RUN. I CALLED DR. ALEJANDRA, WHO STARTED DEPAKOTE I TALKED TO SON AND HE UNDERSTANDS. I RAISED HALDOL TO HIGHER DOSE FOR HOPE OF RESPONSE. THIAMINE 100 MG IV HAS BEEN ADDED ALSO. PROGNOSIS POOR. WE CAN'T DO MRI WITH AGITATION AND FAMILY REFUSAL. CT WILL BE TRIED BUT WILL NOT CHANGE COURSE OF THERAPY. SHE NEEDS NH BUT INSURANCE WILL NOT APPROVE SO FAR. (5) Diastolic CHF, acute on chronic Current Visit: No Status: Acute Plan: LASIX PRN WITH ANY DIURETICS HER KIDNEYS MAY GET WORSE THIS IS A DIFFICULT BALANCE TO ACHIEVE. (6) Altered mental state Current Visit: Yes Status: Acute Plan: SHE IS VERY DISORIENTED AND AGITATED. GEODON, HALDOL, ATIVAN, DEPAKOTE AND EXELON FAILED. SHE PULLS OUT ALL IVS SO WE CAN'T HYDRATE HER. WE HAVE NO CHOICE ABOVE NOTED IN HPI. CT BRAIN IS NEGATIVE. MRI NOT POSSIBLE AND FAMILY DOES NOT WANT SHE DOES NOT TOLERATE IT.
[2022-07-05] MEDS: HALOPERIDOL LACT 5 MG/ML INJ IM PRN ×5 (02:10→16:48)
[2022-07-05 04:56] LABS: Absolute Lymphocytes (CBC) 0.8 K/uL (0.7-4.9); Hematocrit 40.9 % (36.0-45.0); Lymphocytes % 9.9 % (15.3-44.8); MCV 119.7 fL (80-100); MPV 10.6 fL (7.6-11.3); RBC Red Blood Cell Count 3.42 M/uL (3.86-4.86)
[2022-07-05 05:07] LABS: Phosphorus 5.1 mg/dL (2.5-4.9); Potassium 4.6 mEq/L (3.5-5.1)
[2022-07-05] MEDS: INSULIN -REGULAR HUMAN 50 UNIT/0.5 ML ML SQ SCH ×3 (07:30→16:13)
[2022-07-05] MEDS: HYDROXYUREA 500 MG CAP PO SCH (09:00)
[2022-07-05] MEDS: ATORVASTATIN 40 MG TAB PO SCH (09:00)
[2022-07-05] MEDS: CLOPIDOGREL 75 MG TABLET PO SCH (09:00)
[2022-07-05] MEDS: THIAMINE 200 MG/2 ML INJ IVP SCH (09:00)
[2022-07-05] MEDS: INSULIN GLARGINE 100 UNIT/ML SQ SCH (09:00)
[2022-07-05] MEDS: ENSURE MAX PROTEIN 330 ML LIQUID PO SCH (09:00)
[2022-07-05] MEDS: oxyBUTYnin chloride 5 MG TAB PO SCH (09:00)
[2022-07-05] MEDS: PREGABALIN 75 MG CAP PO SCH (09:00)
[2022-07-05] MEDS: LIDOCAINE 4% PATCH TOP SCH (09:00)
[2022-07-05] MEDS: ASPIRIN 81 MG CHEWABLE TABLET PO SCH (09:00)
[2022-07-05] MEDS: MAGNESIUM OXIDE 400 MG TAB FT SCH (09:00)
[2022-07-05] MEDS: DIVALPROEX DR 500MG TAB PO SCH (09:00)
[2022-07-05] MEDS: RIVASTIGMINE 4.6 MG/24 HR PATCH TD SCH (09:05)
--- NOTE | 2022-07-05 10:10 | P.PN ---
Subjective Date of Service: 07/05/22 Chief Complaint: CONFUSION, DISORIENTATION, AGIGATION Subjective: Worsening SHE IS SLOWLY SLIPPING INTO COMA. SHE HAS BEEN SEDATED TO CUT DOWN SEVERE AGITATION. DR. ALEJANDRA PUT HER ON IV DEPAKOT ALL OTHER MEASURES FAILED. I HAD LONG DISCUSSION WITH SON AND DAUGHTER YESTERDAY. SON IS MPOA AND HE WANTS DNR STATUS FOLLOWING HER WISHES. THEY ALSO UNDERSTAND THAT THIS IS DECLINE THAT HAS STARTED FOR SOMEONE WHO HAS SEVERE CHRONIC ILLNESSES. SHE IS SOMNOLENT MOST OF THE TIME. SHE DOES NOT ANSWER ANY QUESTIONS. SHE IS PULLING OUT ALL IVS. WE ARE NOT ABLE TO FEED OR HYDRATE HER. FAMILY DOES NOT WANT G TUBE OR NG TUBE. IT WILL MORE DANGEROUS IF SHE PULLS THAT. WE HAVE TRIED ALL MEDICATIONS TO CONTROL HER WITHOUT SUCCESS. DR. ALEJANDRA ALSO TIRED A COUPLE. AT THIS POINT FAMILY IS AGREEABLE TO HOSPICE WITH HER MULTIPLE MEDICAL ISSUES AND AGE OF 82. I AGREE. SHE HAS NO RESOURCES FOR NH SO I ADVISED FAMILY TO GO FOR NH WITH MEDICAID ASSIGNMENT. TODAY SHE IS OBTUNDED, PULLS OUT ALL HER CLOTHES, DOES NOT RESPOND BUT JUST YELLS. SHE IS NOT KEEPING ANY IV, NOT TAKING ANYTHING ORAL MEDS OR FOODS Review of Systems is unable to be obtained Physical Examination - Vital Signs Temperature: 98 F Blood Pressure: 132/47 Pulse: 89 Respirations: 20 Pulse Ox (%): 92 - Physical Exam General: Moderate distress, Unresponsive (AWAKE WITH STIMULUS BUT GOES BACK TO SLEEP. ) HEENT: Atraumatic, PERRLA, EOMI Neck: Supple, JVD not distended Respiratory: Clear to auscultation bilaterally, Normal air movement Cardiovascular: Regular rate/rhythm, Normal S1 S2 Gastrointestinal: Normal bowel sounds, No tenderness Musculoskeletal: No tenderness Integumentary: No rashes Neurological: Normal speech, Normal tone, Normal affect Lymphatics: No axilla or inguinal lymphadenopathy - Studies Medications List Reviewed: Yes Assessment And Plan - Current Problems (Diagnosis) (1) Acute on chronic renal failure Current Visit: Yes Status: Acute Plan: SHE POSSIBLY WILL STAY ABOUT 3 ON CREAT. SHE NEEDS SMALL DOSE OF DIURETIC SOME FLUID OVERLOAD. WILL GIVE LASIX IV 20 MG. THIS IS A DIFFICULT BALANCE BETWEEN RENAL FAILURE AND CHF. PROGNOSIS IS POOR. FAMILY WANTS DNR STATUS IF OKAYED BY TWO DOCTORS. I AM GOING TO ASK DR. MORRIS TO DOCUMENT IN ADDITION TO ME IF OKAY WITH HIM. (2) Chest pain, rule out acute myocardial infarction Current Visit: No Status: Chronic Plan: SHE WILL BE MANAGED MEDICALLY. NOT A CATH OR SURGICAL CANDIDATE WITH POOR GENERAL CONDITION. (3) Coronary artery disease due to type 2 diabetes mellitus Current Visit: No Status: Chronic Plan: DID NOT TOLERATE GENTLE HYDRATION. CHANGE TO PPN. IF CONTINUES TO DECLINE WILL OFFER HOSPICE. ALL MEASURES HAVE FAILED TO HELP HER RECOVER SO FAR. (4) Metabolic encephalopathy Current Visit: Yes Status: Acute Plan: HER CONFUSION CAN BE FROM UREMIA, DEMENTIA RELATED HOSPITAL PSYCHOSIS. MEDS ABOVE TRIED. SHE WILL NEED NH AND POSSIBLE HOSPICE IF SHE DOES NOT RECOVER. WE TRIED GEODON, HALDOL, DEPAKOTE ONE AT A TIME WITH NO RESPONSE. ATIVAN SEEMS TO WORK FOR TWO HOURS BUT IS NOT GOOD FOR LONG RUN. I CALLED DR. ALEJANDRA, WHO STARTED DEPAKOTE I TALKED TO SON AND HE UNDERSTANDS. I RAISED HALDOL TO HIGHER DOSE FOR HOPE OF RESPONSE. THIAMINE 100 MG IV HAS BEEN ADDED ALSO. PROGNOSIS POOR. WE CAN'T DO MRI WITH AGITATION AND FAMILY REFUSAL. CT WILL BE TRIED BUT WILL NOT CHANGE COURSE OF THERAPY. SHE NEEDS NH BUT INSURANCE WILL NOT APPROVE SO FAR. (5) Diastolic CHF, acute on chronic Current Visit: No Status: Acute Plan: LASIX PRN WITH ANY DIURETICS HER KIDNEYS MAY GET WORSE THIS IS A DIFFICULT BALANCE TO ACHIEVE. SHE IS NOT DOING WELL. SHE IS DECLINING ON DAILY BASIS. NOT KEEPING IV. PULLS OUT IV ON DAILY BASIS. FAMILY WANTS NO G TUBE OR NG TUBE SHE WILL INJURE HERSELF I HAVE TALKED TO SON WHO IS MPOA A FEW TIMES. HE AND BOTH SISTERS UNDERSTAND THE PROGNOSIS IS POOR. WE ARE WAITING FOR MEDICAID CARE HOME BED SHE WILL NOT BE ABLE TO GO HOME WITH PARTIAL HELP. FAMILY HAS AGREED TO HOSPICE. I WILL QUIT DOING LABWORK NOW. (6) Altered mental state Current Visit: Yes Status: Acute Plan: SHE IS VERY DISORIENTED AND AGITATED. GEODON, HALDOL, ATIVAN, DEPAKOTE AND EXELON FAILED. SHE PULLS OUT ALL IVS SO WE CAN'T HYDRATE HER. WE HAVE NO CHOICE ABOVE NOTED IN HPI. CT BRAIN IS NEGATIVE. MRI NOT POSSIBLE AND FAMILY DOES NOT WANT SHE DOES NOT TOLERATE IT.
[2022-07-05] MEDS: NACHLORIDE 0.45% 1,000 ML IV SCH (11:00)
--- NOTE | 2022-07-05 13:29 | P.PN ---
Subjective Date of Service: 07/06/22 Chief Complaint: CONFUSION, DISORIENTATION, AGIGATION Pt with HX of CKD baseline cr ~2.0 , admitted for SOB , S/p cardiac cathetrization . 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
[2022-07-05] MEDS: ENOXAPARIN 30 MG/0.3 ML SQ SCH (16:48)
[2022-07-06 13:16] VITALS: BP 132/47; TEMP 98
[2022-07-07 23:28] LABS: Vitamin D 1,25-Dihydroxy Total 21 pg/mL (18-72); Vitamin D,1,25-OH2, D2 <8 pg/mL
== END 2022-07-05 17:59 | disposition hospice, inpatient (51) | DRG 280 ==
LOC: ER 15:09 → ERHOLD 18:06 → 4TH 20:53
PROVIDERS: ADMIT Internal Medicine; ATTEND Internal Medicine
PROC: 4A023N7 Measurement of Cardiac Sampling and Pressure, Left Heart, Percutaneous Approach (ICD-10-PCS; principal; 2022-06-26)
PROC: B2111ZZ Fluoroscopy of Multiple Coronary Arteries using Low Osmolar Contrast (ICD-10-PCS; 2022-06-26)
PROC: B2131ZZ Fluoroscopy of Multiple Coronary Artery Bypass Grafts using Low Osmolar Contrast (ICD-10-PCS; 2022-06-26)
DX: I21.4 Non-ST elevation (NSTEMI) myocardial infarction (principal); E11.641 Type 2 diabetes mellitus with hypoglycemia with coma; G93.41 Metabolic encephalopathy; I50.33 Acute on chronic diastolic (congestive) heart failure; J96.20 Acute and chronic respiratory failure, unspecified whether with hypoxia or hypercapnia; N17.0 Acute kidney failure with tubular necrosis; Z68.42 Body mass index [BMI] 45.0-49.9, adult; I13.0 Hypertensive heart and chronic kidney disease with heart failure and stage 1 through stage 4 chronic kidney disease, or unspecified chronic kidney disease; F03.911 Unspecified dementia, unspecified severity, with agitation; E87.1 Hypo-osmolality and hyponatremia; G40.89 Other seizures; F05 Delirium due to known physiological condition; I25.110 Atherosclerotic heart disease of native coronary artery with unstable angina pectoris; N18.30 Chronic kidney disease, stage 3 unspecified; E11.22 Type 2 diabetes mellitus with diabetic chronic kidney disease; E11.51 Type 2 diabetes mellitus with diabetic peripheral angiopathy without gangrene; E11.42 Type 2 diabetes mellitus with diabetic polyneuropathy; E11.65 Type 2 diabetes mellitus with hyperglycemia; I48.0 Paroxysmal atrial fibrillation; I65.21 Occlusion and stenosis of right carotid artery; E66.01 Morbid (severe) obesity due to excess calories; J43.9 Emphysema, unspecified; E83.52 Hypercalcemia; E78.5 Hyperlipidemia, unspecified; I27.20 Pulmonary hypertension, unspecified; M19.09 Primary osteoarthritis, other specified site; T50.8X5A Adverse effect of diagnostic agents, initial encounter; Z66 Do not resuscitate; Z79.4 Long term (current) use of insulin; Z95.1 Presence of aortocoronary bypass graft; Z88.5 Allergy status to narcotic agent; Z88.1 Allergy status to other antibiotic agents; Z88.8 Allergy status to other drugs, medicaments and biological substances; Z88.7 Allergy status to serum and vaccine; Z90.81 Acquired absence of spleen; Z79.01 Long term (current) use of anticoagulants; Z74.01 Bed confinement status; Z90.49 Acquired absence of other specified parts of digestive tract; Z86.73 Personal history of transient ischemic attack (TIA), and cerebral infarction without residual deficits; Z90.710 Acquired absence of both cervix and uterus; Z86.711 Personal history of pulmonary embolism; Z79.899 Other long term (current) drug therapy
CPT/HCPCS: 36415; 70450; 71045; 71250; 76770; 76937; 80048; 80053; 80069; 80076; 81001; 82024; 82140; 82533; 82570; 82607; 82627; 82652; 82805; 82947; 83540; 83735; 83880; 83935; 83970; 84100; 84132; 84156; 84165; 84300; 84443; 84466; 84484; 84550; 85025; 85610; 86021; 86038; 86160; 86225; 86430; 87086; 87088; 93005; 93306; 93459; 93970; 96374; 99285; C1760; C1893; J0461; J0696; J1630; J1644; J1650; J1815; J1940; J1953; J2001; J2250; J2405; J3010; J3411; J3486; J7030; J7040; J7050; P9047; Q0162; Q9966

== ENCOUNTER 2022-07-05 17:55 | Inpatient (IN) | payer OTHER ==
--- OUTSIDE RECORDS SUMMARY | 2022-07-05 18:19 | XMS REPORT | Continuity of Care Document ---
:1940 Author Organization [facility] t Address [address] [facility] [address] [place] [address] Care Team Providers Name Role Phone Adolph Buitrago MD, [place] Primary Care Physician SABAS SCHWAB Attending Clinician Unavailable Sbaas Schwab MD Attending Clinician Doctor Unassigned, [place] Attending Clinician Unavailable Only, Adc Test Attending Clinician Unavailable Pob, Adc Lab Main Attending Clinician Unavailable BRIA HOOVER Attending Clinician Unavailable MD BRIA HOOVER Attending Clinician Unavailable DESHAWN CHRISTIE Attending Clinician Unavailable SABAS AQUINO Attending Clinician Unavailable ABDON VENTURA Attending Clinician Unavailable Vlad Goodwin Attending Clinician VLAD GOODWIN M.D. Attending Clinician Unavailable Citlali Kenny Attending Clinician CITLALI KENNY M.D. Attending Clinician Unavailable Matilda Nicholson Attending Clinician Deric Lee Attending Clinician SABAS SCHWAB Admitting Clinician Unavailable Sabas Schwab MD Admitting Clinician BRIA HOOVER Admitting Clinician Unavailable MD BRIA HOOVER Admitting Clinician Unavailable SABAS AQUINO Admitting Clinician Unavailable ABDON VENTURA Admitting Clinician Unavailable Deric Lee Admitting Clinician Payers Payer Name Policy Type Policy Number Effective Date Expiration Date S rush MEDICARE PART A [id number] 2007 \\T\\ B 00:00:00 [employer] INDEMNITY [id number] 2013 00:00:00 Problems Condition Condition Condition Status [...] c shock 08[facility]06 [facility] [place] Fluid Fluid Disease Active [facility] overload overload 31 [facility] [place] Thrombocyt Thrombocyt Disease Active [facility] openia openia 31 [facility] 00:[facility] 00 [place] Hyperglyce Hyperglyce Disease Active [facility] daija daija 31 [facility] Coronary Coronary Disease Active [facility] arterioscl arterioscl 530 Jennifer kes erosis erosis 00:00: Medical 00 Center 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 [address] 4 4 5-30 [facility] 00 [place] Bradycardi Bradycardi Disease Active [address] a a 5-30 [facility] 00[facility] 00 Center Acute Acute Disease Active [facility] prerenal prerenal 5-30 [facility] azotemia azotemia 00:00: Medica l 00 Center Hyperchlor Hyperchlor Disease Active [facility] emic emic 5-30 [facility] metabolic metabolic 00:00: Medi saira acidosis acidosis 00 Center Acute Acute Disease Active [facility] blood loss blood loss 5-30 Jennifer kes anemia anemia 00:00: Medical 00 [place] Chronotrop Chronotrop Disease Active [facility] [...] urgency 5-22 Jennifer kes 00:00: Medical 00 [place] Carotid Carotid Disease Active [facility] stenosis, stenosis, 5- Luke s right right 00:00: Medical 00 [place] CAD CAD Disease Active [facility] (coronary (coronary 5-21 Luke s artery artery 00:00: Medical disease) disease) 00 [place] STROKE, STROKE, Diagnosis Active 2015-02-05 [facility]oria EMOBOLIC EMOBOLIC 12-01 16:40:00 l Active 00:00: Jun[place] 12/01/2014 00 [facility] CVA CVA Diagnosis Active 2014-12-13 Mem oria Active 11-08 16:45:00 l 11/08/2014 00:00: Michael altamirano [address] GRAZYNA GRAZYNA Diagnosis Active 2015-02-05 Memoria BILLING BILLING 11-08 16:39:00 l [id number] 00:00: [place] Active 00 11/08/2014 [facility] THYROID THYROID Disease Active Univers NODULE NODULE 2-13 ity of 00:00: [place] [address] Medical Branch Hypotensio Hypotensio Disease Active [facility] n due to n due to [facility] hypovolemi hypovolemi Me dical a a Center Normal Normal Disease Active [facility] anion gap anion gap Luke s metabolic metabolic Medi saira acidosis acidosis Center Clotting Clotting Problem Active [facility] disorder disorder [...] Physici ans Asthma Asthma Problem Resolve 2015-04-13 Mem oria (disorder) (disorder) d 05:10:29 l Resolved [place] Problem 04/13/2015 [facility], FELIZ Wild, FELIZ Rubi dm dm Problem Resolve 2015-04-13 Tobi benedict (qualifier (qualifier d 05:10:29 l value) value) [place] Resolved Problem 04/13/2015 [facility], FELIZ Wild, FELIZ Rubi Glaucoma Glaucoma Problem Resolve 2015-04-13 Memoria (disorder) (disorder) d 05:10:29 l Resolved [place] Problem 04/13/2015 [facility], FELIZ Wild, FELIZ Rubi Hypertensi Hypertens Problem Resolve 2015-04-13 Memoria ve louise d 05:10:29 l disorder, disorder, Herm bon systemic systemic arterial arterial (disorder) (disorder) Resolved Problem 04/13/2015 [facility], FELIZ Wild, FELIZ Rubi Myocardial Myocardia Problem Resolve 2015-04-13 Memoria infarction l d 05:10:29 l (disorder) infarction He rmann (disorder) Resolved Problem 04/13/2015 [facility], FELIZ Wild, FELIZ Rubi Diabetic Diabetic Problem Resolve 2015-04-13 Memoria neuropathy neuropathy d 05:10:29 l (disorder) (disorder) He rmann Resolved Problem 04/13/2015 [facility], FELIZ Wild, FELIZ Rubi Transient Transient Problem Resolve 2015-04-13 Memoria ischemic ischemic d 05:10:29 l attack attack Jun[place] (disorder) (disorder) Resolved Problem 04/13/2015 [facility], FELIZ Wild, OPIJai [place] CEREBRAL CEREBRAL Diagnosis Active 2015-02-05 [facility] EMBOLISM W EMBOLISM W 16:40:00 l CI CI Active Junito [facility] CVA CVA Diagnosis Active 2015-02-05 Mem oria Active 16:40:00 l [facility] Allergies, Adverse Reactions, Alerts Allergy Allergy Status [...] Hospita reaction 00 l s to drug Tree Nut Drug Active Swelling Daughter [facility] Allergy 6-10 reports [facility] 00:00: pt has Medical 00 swelling Center when she consume peanuts and tree nuts and she wanted this documente d within the EMR. TREE NUT DRUG Active Swelling Univer s INGREDI 6-10 ity of 00:00: [place] 00 Medical Branch Tree Nut Propensi Active Swelling Daughter Un adriane ty to 6-10 reports ity of adverse 00:00: pt has [place] reaction 00 swelling Medica l s when she Branch consume peanuts and tree nuts and she wanted this documente d within the EMR. Hydrocod Propensi Active [facility] one-Acet ty to 5-21 [facility] aminophe adverse 00:00: Medical n reaction [...] d within the EMR. Quinolon Propensi Active 2019- [facility] es ty to 5-21 [facility] adverse 00:00: Medical reaction 00 Center s Sitaglip Propensi Active 2019- [facility] tin ty to 5-21 [facility] adverse 00:00: Medical reaction 00 Center s Starch Propensi Active 2018- [facility] ty to 5-21 [facility] adverse 00:00: Medical reaction 00 Center s Statins- Propensi Active 2018- [facility] Hmg-Coa ty to 5-21 [facility] [...] us adverse 00:00: Medical Toxoids reaction 00 [facility] s Exenatid Propensi Active [facility] e ty to 5-21 [facility] adverse 00:00: Medical reaction 00 Center s Ezetimib Propensi Active 2018- [facility] e ty to 5-21 [facility] adverse 00:00: Medical reaction 00 Center s Glimepir Propensi Active 2018- [facility] rodríguez ty to 5-21 [facility] adverse 00:00: Medical reaction 00 Center s DIPHTHER DRUG Active Unknown-Cmnt Un adriane IA-TETAN 5-21 ity of [place] 00:00: [place] TOXOIDS 00 Medical PED Branch EZETIMIB DRUG Active Unknown-Cmnt Un adriane E INGREDI 5-21 ity of 00:00: [place] 00 Medical Branch INSULIN DRUG Active Unknown-Cmnt Uni vers GLARGINE INGREDI 07-27 ity of 00:00: [place] 00 Medical Branch METFORMI DRUG Active Unknown-Cmnt Un adriane N INGREDI 07-27 ity of 00:00: [place] 00 Medical Branch NIACIN Drug Active Unknown-Cmnt Univ ers PREPARAT Class 5-21 ity of IONS 00:00: [place] 00 Medical Branch PEANUT DRUG Active Swelling 2018- Univers INGREDI - ity of 00:00: [place] 00 Medical Branch QUINOLON Drug Active Unknown-Cmnt Un adriane ES Class 5-21 ity of 00:00: [place] 00 Medical Branch SITAGLIP DRUG Active Unknown-Cmnt Un adriane TIN INGREDI 07-27 ity of 00:00: [place] 00 [...] Active Swelling Daughter Univ ers ty to 521 reports ity of adverse 00:00: pt has [place] reaction 00 swelling Medica l s when she Branch consume peanuts and tree nuts and she wanted this documente d within the EMR. Quinolon Propensi Active Unknown - 2019 Uni vers es ty to See comments 5-21 ity of adverse 00:00: [place] reaction 00 Medical s Branch Statins- Propensi Active Unknown - 2019 Uni vers Hmg-Coa ty to See comments [...] 00 Medical Branch CLAVULAN DRUG Active Unknown-Cmnt 2018- Un adriane IC ACID INGREDI 5-21 ity of 00:00: [place] 00 Medical Branch GLIMEPIR DRUG Active Unknown-Cmnt 0 Un adriane RODRÍGUEZ INGREDI 1-13 ity of 00:00: [place] 00 Medical Branch HYDROCOD DRUG Active Unknown-Cmnt 0 Un adriane ONE-ACET 1-13 ity of AMINOPHE [...] 00 Medical Branch AMOXICIL DRUG Active Unknown-Cmnt Un adriane ANDREW INGREDI 1-13 ity of 00:00: [place] 00 Medical Branch PIOGLITA DRUG Active Unknown-Cmnt Un adriane ZONE INGREDI 1-13 ity of 00:00: [place] 00 Medical Branch POTASSIU DRUG Active Unknown-Cmnt Un adriane M INGREDI 1-13 ity of 00:00: [place] 00 Medical Branch ROSUVAST DRUG Active Unknown-Cmnt 2008- Un adriane ATIN INGREDI 1-13 ity of CALCIUM 00:00: [place] 00 Medical Branch SIMVASTA DRUG Active Unknown-Cmnt 0 Un adriane TIN INGREDI 1-13 ity of [...] s Branch Glimepir Propensi Active Unknown - Leg pain U nivers rodríguez ty to [...] of HCL 00:00: [place] 00 Medical Branch Demerol Demerol Active Memoria HCl HCl l [place] glimepir glimepir Active Memori a rodríguez rodríguez l [place] HYDROcod HYDROcod Active Memori a one-PPA one-PPA l [place] Januvia Januvia Active Memoria l [place] Lantus Lantus Active Memoria l [place] Levaquin Levaquin Active Memori a l [place] metFORMI metFORMI Active Memori a N N l [place] Niaspan Niaspan Active Memoria ER ER l [place] statins statins Active Memoria l [place] tetanus [...] amines l [place] Byetta Byetta Active [facility] l d Pen d Pen [place] Amaryl drug Active [facility] allergy Physici ans [...] Zetia drug Active [facility] allergy Physici ans Family History Family Member Diagnosis Comments Start Date Stop Date Source Father Family history of coronary [facility] arteriosclerosis Social History Social Habit Start Date Stop Date Quantity Comments Source History SDOH [facility] Alcohol Comment Medical C enter History SDOH [facility] Alcohol Std Drinks Medica l Center History SDOH [facility] Alcohol Binge Medical Darren ter History of tobacco Current smoker [facility] Gender identity [facility] Sexual orientation Method ist Hospital Exposure to Not sure University SARS-CoV-2 (event) [facility] Tobacco use and 2021-05-20 2021-05-20 Never used Universit y of exposure 00:00:00 00:00:00 [facility] Alcohol intake 2021-02-12 2021-02-12 [facility] 00:[facility] 00:[facility]:00 Hospital History SDOH 2018-08-05 2018-08-[address] [facility] Alcohol Frequency 00:00:00 00:00:00 Medical [place] Social History 2014-11-09 2014-11-09 [facility] 03:26:32 03:26:32 Sex [birth year] [facility] 00:00:00 00:00:00 Hospital Smoking Status Start Date Stop Date Source Unknown if ever smoked Universit y of [facility] Never smoker [facility] Ex-smoker 2021-02-08 00:00:00 2021-02-08 00:00:00 [facility] Medications Ordered Filled Start Stop Current Ordering Indication Dosage Frequency Signature Comments Components Source Medication Medication Date Date Medication? Clinician (SIG) Name Name neomycin-po Yes PRN, Paul s lymyxin-dex 05-29 Starting ity of amethasone 14:21: on Thu (MAXITROL) 05/29/21 at Med ical 3.5 0921, Branch mg/g-10,000 Until unit/g-0.1 Discontinu % ed, ophthalmic Routine, ointment Intra-op neomycin-po PRN, Unive rs lymyxin-dex 05-29 Starting ity of amethasone 14:21: 17:00 on Thu [facility] (MAXITROL) 00 :06 05/29/21 at Med ical 3.5 0921, Branch mg/g-10,000 Until Thu unit/g-0.1 05/29/21 at % 1200, ophthalmic Routine, ointment Intra-op dexamethaso Yes PRN, Univer s ne 05-29 Starting ity of (DECADRON 14:20: on Thu PHOSPHATE) 00 05/29/21 at [facility] ical injection 0920, Branch Until Discontinu ed, Routine, Intra-op dexamethaso 2021- No PRN, Unive rs ne 05-29 Starting ity of (DECADRON 14:20: 17:00 on Thu [place] PHOSPHATE) 00 :06 05/29/21 at Med ical injection 0920, Branch Until Thu05/29/21 at 1200, Routine, Intra-op carbachoL Yes PRN, Univers (MIOSTAT) 05-29 Starting ity of 0.01 % 14:19: on Thu [place] intraocular 00 05/29/21 at Ms dical injection 0919, Branch Until Discontinu ed, Routine, Intra-op carbachoL 2021- No PRN, Univers (MIOSTAT) 05-29 Starting ity o f 0.01 % 14:19: 17:00 on Thu [place] intraocular 00 :06 05/29/21 at Ms dical injection 0919, Branch Until Thu05/29/21 at 1200, Routine, Intra-op DUOVISC Yes PRN, Univers (DUOVISC 05-29 Starting ity of VISCO 14:07: on Thu ELASTIC) 3 00 05/29/21 at [facility] ica %-4 %(0.5 0907, Branch mL) 1 % Until (0.55 mL) Discontinu intraocular ed, injection Routine, Intra-op EPINEPHrine Yes PRN, Univer s 1:1,000 (1 05-29 Starting ity o f mg/mL) 14:07: on Thu (ADRENALIN) 00 05/29/21 at Ms dical injection 09, Branch Until Discontinu ed, Routine, Intra-op balanced Yes PRN, Univers salt irrig 05-29 Starting ity o f soln comb1 14:07: on Thu (BSS PLUS) 00 05/29/21 at [facility] ical ophthalmic 09, Branch solution Until 500 mL bag Discontinu ed, Routine, Intra-op DUOVISC 2021- No PRN, Univers (DUOVISC 05-29 Starting ity of VISCO 14:07: 17:00 on Thu [place] ELASTIC) 3 00 :06 05/29/21 at [facility] ical %-4 %(0.5 0907, Branch mL) 1 % Until Thu (0.55 mL) 05/29/21 at intraocular 1200, injection Routine, Intra-op EPINEPHrine 2021- No PRN, Unive rs 1:1,000 (1 05-29 Starting ity of mg/mL) 14:07: 17:00 on Thu [place] (ADRENALIN) 00 :06 05/29/21 at Ms dical injection 0907, Branch Until Thu05/29/21 at 1200, Routine, Intra-op balanced 2021- No PRN, Univers salt irrig 05-29 Starting ity of soln comb1 14:07: 17:00 on Thu [place] (BSS PLUS) 00 :06 05/29/21 at [facility] ical ophthalmic 0907, Branch solution Until Thu [...] Starting ity of Recomb. 13:59: on Thu [place] (HYLENEX) 00 05/29/21 at [facility] saira injection 0859, Branch Until Discontinu ed, [...] ity of mL 13:59: 17:00 on Thu [place] 00 :06 05/29/21 at Medical 0859, Branch Until Thu05/29/21 at 1200, Intra-op lactated 2021- No 1000mL at 42 [facility] [place] rs ringers IV 05-29 mL/hr, ity of [...] mL lactated 2021- No 1000mL at 42 [facility] [place] rs ringers IV 05-29 mL/hr, ity of [...] 3-23 by mouth. ity of tablet 09:55: [address] Branch hydroxyurea Yes Take by Uni vers 500 mg 3-23 mouth ity of capsule 09:55: [address] meclizine Yes 25mg Take 25 mg Un adriane 25 mg 3-23 by mouth. ity of tablet 09:55: [address] Branch magnesium Yes 400mg Take 400 Uni vers oxide 400 3-23 mg by ity of mg (241.3 09:55: mouth. [place] mg [address] [place] [id number] magnesium) Branch tablet Cholecalcif Yes 5000U Take 5,000 Univers rosalie, 3-23 Units by ity of Vitamin D3, 09:55: [place]. [place] 5,000 unit 02 Medical tablet Branch furosemide Yes 40mg Take 40 mg U nivers 40 mg 3-23 by mouth ity of tablet 09:55: daily. [address] traMADoL 50 Yes 25mg Take 25 mg Univers mg tablet 3-23 by mouth. ity o f 09:55: [address] hydrOXYzine Yes 25mg Take 25 mg [...] ity of U-100 100 09:55: under the [facility] as unit/mL 02 skin every Medica l injection evening. Branch insulin Yes inject Univers aspart 3-23 under the ity of U-100 09:55: skin 3 [place] (NOVOLOG 02 (three) Medical FLEXPEN times Branch U-100 daily INSULIN) before 100 unit/mL meals. (3 mL) Sliding injection Scale clopidogrel Yes 75mg Take 75 mg Univers 75 mg 3-23 by mouth. ity of tablet 09:55: [address] hydroxyurea Yes Take by Uni vers 500 mg 3-23 mouth ity of capsule 09:55: [address] Branch meclizine Yes 25mg Take 25 mg Un adriane 25 mg 3-23 by mouth. ity of tablet 09:55: [address] Branch magnesium Yes 400mg Take 400 [...] by mouth ity of tablet 09:55: daily. [address] Branch traMADoL 50 Yes 25mg Take 25 mg Univers mg tablet 3-23 by mouth. ity o f 09:55: [address] hydrOXYzine Yes 25mg Take 25 mg [...] 3-23 by mouth. ity of tablet 09:55: [address] hydroxyurea Yes Take by Uni vers 500 mg 3-23 mouth ity of capsule 09:55: [address] meclizine Yes 25mg Take 25 mg Un adriane 25 mg 3-23 by mouth. ity of tablet 09:55: [place] [address] Medical Branch magnesium Yes 400mg Take 400 [...] by mouth ity of tablet 09:55: daily. [address] Branch traMADoL 50 Yes 25mg Take 25 mg Univers mg tablet 3-23 by mouth. ity o f 09:55: [address] Branch hydrOXYzine Yes 25mg Take 25 mg Univers (VISTARIL) 3-23 by mouth 3 ity of 25 mg 09:55: (three) [place] capsule 02 times Medical daily as Branch needed for Itching. insulin Yes 25U inject 25 Unive rs detemir 3-23 Units ity of U-100 09:55: under the [place] (LEVEMIR 02 skin every Medic al U-100 morning. Branch INSULIN) 100 unit/mL injection insulin Yes 5U inject 5 Univer s detemir 3-23 Units ity of U-100 100 09:55: under the [facility] as unit/mL 02 skin every Medica l [...] 58 :00 skin. Medical injection Branch insulin 2021-0 2021- No 15U inject 15 Univ ers aspart 3-23 03-23 Units ity of U-100 100 09:25: 00:00 under the [place] unit/mL (3 58 :00 skin. Medical mL) Branch injection insulin 0 2021- No 25U inject 25 Univ ers detemir 3 03-23 Units ity of U-100 100 09:25: 00:00 under the [place] unit/mL 58 :00 skin. Medical injection Branch insulin 0 2021- No 15U inject 15 Univ ers aspart 3- 03-23 Units ity of U-100 100 09:25: 00:00 under the [place] unit/mL (3 58 :00 skin. Medical mL) Branch injection timolol 0.5 0 Yes INSTILL Uni vers % 2-01 ONE [...] A DAY Branch IN THE MORNING. atorvastati 2-0 Yes 40mg Take 40 mg Univers n 40 mg 1-17 by mouth ity of tablet 00:00: daily. [place] [facility] Branch atorvastati 2021-0 Yes 40mg Take 40 mg Univers n 40 mg 1-17 by mouth ity of tablet 00:00: daily. [place] [facility] atorvastati 2021-0 Yes 40mg Take 40 mg Univers n 40 mg 1-17 by mouth ity of tablet 00:00: daily. [address] pantoprazol Yes TAKE ONE Un adriane e 40 mg EC 1-03 (1) ity of tablet 00:00: TABLET(S) BY MOUTH Medical ONCE A DAY Branch 1 HOUR BEFORE FOOD IN THE MORNING. pantoprazol Yes TAKE ONE Un adriane e 40 mg EC 1-03 (1) ity of tablet 00:00: TABLET(S) 00 BY MOUTH Medical ONCE A DAY Branch 1 HOUR BEFORE FOOD IN THE MORNING. pantoprazol 0 Yes TAKE ONE Un adriane e 40 mg EC 1-03 (1) ity of tablet 00:00: TABLET(S) BY MOUTH Medical ONCE A DAY Branch 1 HOUR BEFORE FOOD IN THE MORNING. spironolact 2020-03 Yes 25mg Take 25 mg Univers one 25 mg 2-28 by mouth ity of tablet 00:00: daily. [address] spironolact 2020-03 Yes 25mg Take 25 mg Univers one 25 mg 2-28 by mouth ity of tablet 00:00: daily. [address] spironolact 2020-03 Yes 25mg Take 25 mg Univers one 25 mg 2-28 by mouth ity of tablet 00:00: daily. [address] pregabalin 2020-03 Yes 75mg Q.5D Take 75 [...] magnesium) day. tablet meclizine 2020-03 Yes 25mg [id number] Take 25 mg Methodi (ANTIVERT) 2-[id number] mouth [address] 25 mg 15:54: [...] every l 100 unit/mL evening. injection insulin 2020-03 Yes Q.5D Inject Methodi ASPART 2-[address] (NovoLOG) 15:54: skin 2 Hospit a 100 unit/mL 02 (two) l injection times a day with meals. Sliding scale-100- 150=0 -4 00=5 [id number] 50=20 [id number] 00=25 units>301= 30 units atorvastati 2020-03 Yes 40mg QD Take 40 [...] magnesium) day. tablet meclizine 2020-03 Yes 25mg [id number] Take 25 mg Methodi (ANTIVERT) 2-[id number] by mouth [address] 25 mg 15:54: [...] every l 100 unit/mL evening. injection insulin 2020-03 Yes Q.5D Inject Methodi ASPART 2-[address] (NovoLOG) 15:54: skin 2 Hospit a 100 unit/mL 02 (two) l injection times a day with meals. Sliding scale-100- 150=0 [id number] 00=5 yawge228-9 50=20 -4 00=25 units>301= 30 units atorvastati 2020-03 Yes 40mg QD Take 40 [...] mg 15:54: daily. Hospita capsule 02 l apixaban 2020-03 Yes 5mg Q.5D Take 1 Methodi (ELIQUIS) 5 2-05 tablet (5 st mg tablet 00:00: mg total) Hos darshana 00 by mouth 2 l (two) times a day. apixaban 2020-03 Yes 5mg Q.5D Take 1 Methodi (ELIQUIS) 5 2-05 tablet (5 st mg tablet 00:00: mg total) Hos darshana 00 by mouth 2 l (two) times a day. apixaban 5 2020-03 Yes 5mg Take 5 [...] 14:25: under the [place] as unit/mL (3 skin. Medical mL) Branch injection magnesium Yes 400mg Take 400 Uni vers oxide 400 7-15 mg by ity of mg (241.3 14:25: mouth. [place] mg Medical magnesium) Branch tablet Cholecalcif Yes 5000U Take 5,000 Univers rosalie, 7-15 Units by ity of Vitamin D3, 14:25: [place]. [place] 5,000 unit Medical tablet Branch insulin Yes 15U inject 15 Unive rs aspart 7-15 Units ity of U-100 100 14:25: under the [place] as unit/mL (3 skin. Medical mL) Branch injection magnesium Yes 400mg Take 400 Uni vers oxide 400 7-15 mg by ity of mg (241.3 14:25: mouth. [place] mg Medical magnesium) Branch tablet clopidogrel Yes [...] 7-15 by mouth. ity of tablet 14:25: [place] Medical Branch hydroxyurea 2018- Yes Take by Uni vers 500 mg 7-15 mouth ity of capsule 14:25: [place] Medical Branch meclizine Yes 25mg Take 25 mg Un adriane 25 mg 7-15 by mouth. ity of tablet 14:25: Medical Branch insulin 2018- Yes 25U inject 25 Unive rs detemir 7-15 Units ity of U-100 100 14:25: under the [place] as unit/mL 00 skin. Medical injection Branch LYRICA 75 Yes Univers mg capsule 7-10 ity of 00:00: Medical Branch LYRICA 75 Yes Univers mg capsule 7-10 ity of 00:00: [place] [facility] LYRICA 75 Yes Univers mg capsule 7-10 ity of 00:00: [place] [facility] LYRICA 75 Yes Univers mg capsule 7-10 ity of 00:00: Medical Branch LYRICA 75 Yes Univers mg capsule 7-10 ity of 00:00: [place] [facility] Branch timolol Yes open angle 1[drp] [...] (six) Center hours as needed for Pain. insulin 2019-0 Yes 15U Inject 15 [facility] [...] 10:06: daily. Medica l 45 Center traMADol 2018-0 Yes 25mg Take [address] [...] capsule 45 times Center daily . insulin 0 Yes 10U QD Inject 10 [facility] [...] [facility] (BETIMOL) 08-25 glaucoma (two) [facility] 0.5 % 10:06: times Medical ophthalmic 45 daily. Center solution fluocinonid 2019-0 Yes Q.5D Apply [facility] t e (LIDEX) - topically [facility] 0.05 % 10:06: 2 (two) [...] Cent er 100 unit/mL with injection breakfast. pantoprazol 2019-0 Yes 20mg QD Take 20 [...] daily . Center (241.3 mg magnesium) tablet aspirin 81 2019-0 Yes 81mg QD Take 1 [facility]I [facility] t MG EC 6-11 tablet (81 [facility] tablet 00:00: mg total) Medica l 00 by mouth Center daily. aspirin 81 2019-0 Yes 81mg QD Take 1 CHI S t MG EC 6-11 tablet (81 [facility] tablet 00:00: mg total) Medica l 00 by mouth Center daily. aspirin 81 2019-0 Yes 81mg QD Take 1 CHI S t MG EC 6-11 tablet (81 [facility] tablet 00:00: mg total) Medica l 00 by mouth Center daily. aspirin 81 2019-0 Yes 81mg QD Take 1 [facility]I S t MG EC 6-11 tablet (81 [facility] tablet 00:00: mg total) Medica l 00 by mouth Center daily. aspirin 81 2019-0 Yes 81mg Take 81 mg U nivers mg EC 6-11 by mouth. ity of tablet 00:00: [place] [facility] aspirin 81 2019-0 Yes 81mg Take 81 mg U nivers mg EC 6-11 by mouth. ity of tablet 00:00: [place] [facility] aspirin 81 2019-0 Yes 81mg Take 81 mg U nivers mg EC 6-11 by mouth. ity of tablet 00:00: [place] [facility] aspirin 81 2019-0 Yes 81mg Take 81 mg U nivers mg EC 6-11 by mouth. ity of tablet 00:00: [place] [facility] aspirin 81 2019-0 Yes 81mg Take 81 mg U nivers mg EC 6-11 by mouth. ity of tablet 00:00: [address] carvedilol 2019-0 Yes 3.125mg Q.5D Take 1 [...] mouth 2 (two) times daily. Tresiba Tresiba 2016-0 Yes CITLALI 30 QD INJECT 30 UT FlexTouch FlexTouch 11-14 SENDOS UNIT DAILY Physici 100 UNIT/ML 100 UNIT/ML 00:00: M.D. ans Subcutaneou Subcutaneou 00 s Solution s Solution Pen-injecto Pen-injecto r r Laurie Sullivan Yes CITLALI 30 QD INJECT 30 [...] BEDTIME. ans 00 Aspirin 81 Aspirin 81 2014- Yes 1 QD TAKE 1 UT MG TABS MG TABS 0-20 TABLET Physici 00:00: DAILY. ans 00 MaxEPA 2014-0 No 2 gm, 2 Memoria 11-10 cap, l 16:00: Route: PO, [place] Drug form: CAP, Q12H, Start date: 11/10/14 11:00:00, Duration: 30 day, Stop date: 12/10/14 9:00:00 MaxEPA 2015-0 No 2 gm, 2 Memoria 11-10 cap, l 16:00: Route: PO, [place] [place] Drug form: CAP, Q12H, Start date: 11/10/14 11:00:00, Duration: 30 day, Stop date: 12/10/14 9:00:00 MaxEPA 2015-0 No 2 gm, 2 Memoria 11-10 cap, l 16:00: Route: PO, [place] Drug form: CAP, Q12H, Start date: 11/10/14 11:00:00, Duration: 30 day, Stop date: 12/10/14 9:00:00 Aspirin 325 Yes 325 mg = 1 Memoria MG Oral 9-04 tab, PO, l Tablet 15:34: Daily, # [place] 00 30 tab, 0 Refill(s) omega-3 Yes 2 gm = 2 Memori a polyunsatur 9-04 cap, PO, l ated fatty 15:34: Q12H, # 60 H ermann acids 1000 00 cap, 0 mg oral Refill(s) capsule Aspirin 325 Yes 325 mg = 1 Memoria MG Oral 9-04 tab, PO, l Tablet 15:34: Daily, # [place] 00 30 tab, 0 Refill(s) omega-3 Yes 2 gm = 2 Memori a polyunsatur 9-04 cap, PO, l ated fatty 15:34: Q12H, # 60 H ermann acids 1000 00 cap, 0 mg oral Refill(s) capsule Aspirin 325 Yes 325 mg = 1 Memoria MG Oral 9-04 tab, PO, l Tablet 15:34: Daily, # [place] 00 30 tab, 0 Refill(s) omega-3 Yes 2 gm = 2 Memori a polyunsatur 9-04 cap, PO, l ated fatty 15:34: Q12H, # 60 H ermann acids 1000 00 cap, 0 mg oral Refill(s) capsule Knickerbocker-3 No 2,000 mg, Memor ia Acid Ethyl 9-04 2 cap, l Esters 14:00: Route: PO, Lidya nn (CUSTODIAL) 1000 00 Dosing MG Oral Weight Capsule 105.455, [Lovaza] kg, BID, Start date: 11/10/14 9:00:00, Duration: 30 day, Stop date: 12/09/14 17:00:00 Aspirin 2014-0 No 325 mg, Memoria 9-04 Route: PO, l 14:00: Drug form: [place] 00 TAB, Daily, Dosing Weight 105.455, kg, Start date: 11/10/14 9:00:00, Duration: 30 day, Stop date: 12/09/14 9:00:00 Knickerbocker-3 2014- No 2,000 mg, Memor ia Acid Ethyl 9-04 2 cap, l Esters 14:00: Route: PO, Lidya nn (CUSTODIAL) 1000 00 Dosing MG Oral Weight Capsule 105.455, [Lovaza] kg, BID, Start date: 11/10/14 9:00:00, Duration: 30 day, Stop date: 12/09/14 17:00:00 Aspirin 2015-0 No 325 mg, Memoria 9-04 Route: PO, l 14:00: Drug form: [place] 00 TAB, Daily, Dosing Weight 105.455, kg, Start date: 11/10/14 9:00:00, Duration: 30 day, Stop date: 12/09/14 9:00:00 Knickerbocker-3 2015-0 No 2,000 mg, Memor ia Acid Ethyl 9-04 2 cap, l Esters 14:00: Route: PO, Lidya nn (CUSTODIAL) 1000 00 Dosing MG Oral Weight Capsule 105.455, [Lovaza] kg, BID, Start date: 11/10/14 9:00:00, Duration: 30 day, Stop date: 12/09/14 17:00:00 Aspirin 2015-0 No 325 mg, Memoria 9-04 Route: PO, l 14:00: Drug form: [place] 00 TAB, Daily, Dosing Weight 105.455, kg, Start date: 11/10/14 9:00:00, Duration: 30 day, Stop date: 12/09/14 9:00:00 heparin 2015-0 No 5,000 Memoria 9-04 unit, l 05:00: Route: [place] 00 SUB-Q, Q8H, Dosing Weight 105.455, kg, Start date: 11/10/14 0:00:00, Duration: 30 day, Stop date: 12/09/14 16:00:00 heparin 2015-0 No 5,000 Memoria 9-04 unit, l 05:00: Route: [place] 00 SUB-Q, Q8H, Dosing Weight 105.455, kg, Start date: 11/10/14 0:00:00, Duration: 30 day, Stop date: 12/09/14 16:00:00 heparin 2015-0 No 5,000 Memoria 9-04 unit, l 05:00: Route: [place] 00 SUB-Q, Q8H, Dosing Weight 105.455, kg, Start date: 11/10/14 0:00:00, Duration: 30 day, Stop date: 12/09/14 16:00:00 Levemir 0 No Notes: Memoria 11-10 Same as l 03:19: Levemir Do [place] 00 not hold insulin without contacting prescriber "single patient use only" Levemir No Notes: Memoria 11-10 Same as l 03:19: Levemir Do [place] 00 not hold insulin without contacting prescriber "single patient use only" Levemir No Notes: Memoria 11-10 Same as l 03:19: Levemir Do [place] 00 not hold insulin without contacting prescriber "single patient use only" brinzolamid No brinzolami Memoria e 1% + 9-04 de 1% + l brimonidine 03:00: brimonidin [place] 0.2% 00 e 0.2% (Simbrinza) (Simbrinza ), 1 drp, Drug form: MISC, Route: Each Affected Eye, TID, 11/09/14 22:00:00, Duration: 30 day, Stop date: 12/09/14 14:00:00 brinzolamid 0 No brinzolami Memoria e 1% + 9-04 de 1% + l brimonidine 03:00: brimonidin [place] 0.2% 00 e 0.2% (Simbrinza) (Simbrinza ), 1 drp, Drug form: MISC, Route: Each Affected Eye, TID, 11/09/14 22:00:00, Duration: 30 day, Stop date: 12/09/14 14:00:00 brinzolamid 0 No brinzolami Memoria e 1% + 9-04 de 1% + l brimonidine 03:00: brimonidin [place] 0.2% 00 e 0.2% (Simbrinza) (Simbrinza ), 1 drp, Drug form: MISC, Route: Each Affected Eye, TID, 11/09/14 22:00:00, Duration: 30 day, Stop date: 12/09/14 14:00:00 Brimonidine 2014-0 No 1 drp, Tobi benedict tartrate 2 11-10 Route: l MG/ML / 02:00: Each [place] brinzolamid 00 Affected e 10 MG/ML Eye, Ophthalmic Dosing Suspension Weight 105.455, kg, TID, Start date: 11/09/14 21:00:00, Duration: 30 day, Stop date: 12/09/14 17:00:00 Brimonidine No 1 drp, Tobi benedict tartrate 2 11-10 Route: l MG/ML / 02:00: Each [place] brinzolamid 00 Affected e 10 MG/ML Eye, Ophthalmic Dosing Suspension Weight 105.455, kg, TID, Start date: 11/09/14 21:00:00, Duration: 30 day, Stop date: 12/09/14 17:00:00 Brimonidine No 1 drp, Tobi benedict tartrate 2 11-10 Route: l MG/ML / 02:00: Each [place] brinzolamid 00 Affected e 10 MG/ML Eye, [...] day, Stop date: 02/05/15 9:00:00 Aspirin 325 2014-0 No Notes: Tobi benedict MG Oral - Take with l Tablet 14:00: food. [place] 00 INV No 75 mg, 1 Memoria Clopidogrel - tab, l 75mg/placeb 14:00: Route: PO, [place] o tablet 00 Drug form: Maintenance TAB, Dose Daily, Start date: 11/09/14 9:00:00, Duration: 89 day, Stop date: 02/05/15 9:00:00 Aspirin 325 No Notes: Tobi benedict MG Oral - Take with l Tablet 14:00: food. [place] 00 INV No 75 mg, 1 Memoria Clopidogrel - tab, l 75mg/placeb 14:00: Route: PO, Jun[place] [...] 11-09 Route: IM, l 05:11: Drug form: [place] 00 PDR/INJ, PRN, Dosing Weight 105.455, kg, [...] 11-09 Route: IM, l 05:11: Drug form: [place] 00 PDR/INJ, PRN, Dosing Weight 105.455, kg, PRN Blood Glucose Results, Start date: 11/09/14 0:11:00, Duration: 30 day, Stop date: 12/09/14 0:10:00 Insulin, 2014-0 No Notes: Memoria Aspart, 11-09 Roll in l Human 05:11: palms of [place] 00 hands gently; Do not shake vigorously [...] 11-09 Same as l 02:00: Levemir Do [place] not hold insulin without contacting prescriber "single patient use only" Levemir No Notes: Memoria 11-09 Same as l 02:00: Levemir Do [place] not hold insulin without contacting prescriber "single patient use only" Insulin, No Notes: Memoria Aspart, 11-09 Roll in l Human 01:24: palms of [place] 00 hands gently; Do not shake vigorously [...] 11-09 Route: IM, l 01:24: Drug form: [place] 00 PDR/INJ, PRN, kg, PRN Blood Glucose Results, Start date: 11/08/14 20:24:00, Duration: 30 day, Stop date: 12/08/14 20:23:00 Insulin, No Notes: Memoria Aspart, 11-09 Roll in l Human 01:24: palms of [place] 00 hands gently; Do not shake vigorously [...] 11-09 Route: IM, l 01:24: Drug form: [place] 00 PDR/INJ, PRN, kg, PRN Blood Glucose Results, Start date: 11/08/14 20:24:00, Duration: 30 day, Stop date: 12/08/14 20:23:00 INV 2014-0 No 600 mg, 8 Memoria Clopidogrel 11-09 tab, l 75mg/placeb 01:00: Route: PO, [place] o tablet 00 Drug form: Loading TAB, ONCE, Dose Start date: 11/08/14 20:00:00, Stop date: 11/08/14 20:00:00 INV 2014-0 No 600 mg, 8 Memoria Clopidogrel 9-03 tab, l 75mg/placeb 01:00: Route: PO, [place] o tablet 00 Drug form: Loading TAB, ONCE, Dose Start date: 11/08/14 20:00:00, Stop date: 11/08/14 20:00:00 INV No 600 mg, 8 Memoria Clopidogrel 9-03 tab, l 75mg/placeb 01:00: Route: PO, [place] o tablet 00 Drug form: Loading TAB, ONCE, Dose Start date: 11/08/14 20:00:00, Stop date: 11/08/14 20:00:00 Ativan No Notes: Memoria 11-09 (Same as: l 00:49: Ativan) [place] Ativan No Notes: [facility]oria 11-09 (Same as: l 00:49: Ativan) [place] Ativan No Notes: Memoria 11-09 (Same as: [...] en 11-09 acetaminop l 00:37: hen 4000 [place] 00 mg/day (4 gm/day). (Same as: Tylenol Extra Strength) Ondansetron No Notes: Tboi benedict 11-09 (Same as: l 00:37: Zofran) [place] 00 MEDICATION WASTE Product Size: 4 mg Product Wasted: ___ mg Acetaminoph No Notes: Max Memoria en 11-09 acetaminop l 00:37: hen 4000 [place] 00 mg/day (4 gm/day). (Same as: Tylenol Extra Strength) Amlodipine 0 Yes 2.5 mg, Tobi beendict - PO, Daily, l 00:33: 0 [place] 00 Refill(s) spironolact 2014-0 Yes 50 mg = 1 M emoria one 50 mg 9-03 tab, PO, l oral tablet 00:33: Daily, # [place] 00 90 tab, 1 Refill(s) NovoLog 2014-0 Yes Special Memoria 11-09 Instructio l 00:33: ns: [place] 00 sliding scale SUB-Q TID-Before Meals Levemir 0 Yes 20 unit, Memori a 11-09 SUB-Q, l 00:33: Bedtime, 0 [place] 00 Refill(s) Amlodipine 0 Yes 2.5 mg, Tobi benedict 11-09 PO, Daily, l 00:33: 0 [place] 00 Refill(s) spironolact 0 Yes 50 mg = 1 M emoria one 50 mg - tab, PO, l oral tablet 00:33: Daily, # [place] 00 90 tab, 1 Refill(s) NovoLog 0 Yes Special Memoria 11-09 Instructio l 00:33: ns: [place] 00 sliding scale SUB-Q TID-Before Meals Levemir 0 Yes 20 unit, Memori a 11-09 SUB-Q, l 00:33: Bedtime, 0 [place] 00 Refill(s) Amlodipine 0 Yes 2.5 mg, Tobi benedict 11-09 PO, Daily, l 00:33: 0 [place] 00 Refill(s) spironolact 2014-0 Yes 50 mg = 1 M emoria one 50 mg -03 tab, PO, l oral tablet 00:33: Daily, # [place] 00 90 tab, 1 Refill(s) NovoLog 2014-0 Yes Special Memoria 11-09 Instructio l 00:33: ns: [place] 00 sliding scale SUB-Q TID-Before Meals Levemir 0 Yes 20 unit, Memori a 11-09 SUB-Q, l 00:33: Bedtime, 0 [place] 00 Refill(s) Aspirin 0 No 325 mg, 1 Memor ia 9-02 tab, l 22:17: Route: PO, [place] 00 Drug form: TAB, ONCE, kg, Priority: STAT, Start date: 11/08/14 17:17:00, Stop date: 11/08/14 17:17:00 Aspirin 2014-0 No 325 mg, 1 Memor ia 9-02 tab, l 22:17: Route: PO, [place] Drug form: TAB, ONCE, kg, Priority: STAT, Start date: 11/08/14 17:17:00, Stop date: 11/08/14 17:17:00 Aspirin 2014-0 No 325 mg, 1 Memor ia 9-02 tab, l 22:17: Route: PO, [place] 00 Drug form: TAB, ONCE, kg, Priority: STAT, Start date: 11/08/14 17:17:00, Stop date: 11/08/14 17:17:00 Saline No Notes: Memoria Flush 0.9% 9-02 (Same as: l 21:14: BD [place] 00 Posiflush) Saline No Notes: Memoria Flush 0.9% 9-02 (Same as: l 21:14: BD [place] Posiflush) Saline No Notes: Memoria Flush 0.9% 9-02 (Same as: l 21:14: BD [place] 00 Posiflush) Norvasc 2.5 Norvasc 2.5 Yes 1 [...] Immunizations Ordered Filled Immunization Date Status Comments [facility] e Immunization Name Name SARS-COV-2 COVID-19 2020-07-16 Completed Unive rsity of PFIZER VACCINE 00:00:00 [facility] SARS-COV-2 COVID-19 2020-07-16 Completed Unive rsity of PFIZER VACCINE 00:00:00 [facility] SARS-COV-2 COVID-19 2020-07-16 Completed Unive rsity of PFIZER VACCINE 00:00:00 [facility] SARS-COV-2 COVID-19 2020-07-16 Completed Unive rsity of PFIZER VACCINE 00:00:00 [facility] SARS-COV-2 COVID-19 2020-07-16 Completed Unive rsity of PFIZER VACCINE 00:00:00 [facility] SARS-COV-2 COVID-19 2020-06-23 Completed Unive rsity of PFIZER VACCINE 00:00:00 [facility] SARS-COV-2 COVID-19 2020-06-23 Completed Unive rsity of PFIZER VACCINE 00:00:00 [facility] SARS-COV-2 COVID-19 2020-06-23 Completed Unive rsity of PFIZER VACCINE 00:00:00 [facility] SARS-COV-2 COVID-19 2020-06-23 Completed Unive rsity of PFIZER VACCINE 00:00:00 [facility] SARS-COV-2 COVID-19 2020-06-23 Completed Unive rsity of PFIZER VACCINE 00:00:00 [facility] Vital Signs Vital Name Observation Time Observation Value Comments Source Heart rate 2021-05-29 14:44:00 60 /min [facility] Respiratory rate 2021-05-29 14:44:00 14 /min Univ ersity [facility] Oxygen saturation in 2021-05-29 14:44:00 94 /min [facility] Arterial blood by [facility] Pulse oximetry Branch Systolic blood 2021-05-29 14:42:00 170 mm[Hg] Univer sity of pressure [facility] Diastolic blood 2021-05-29 14:42:00 58 mm[Hg] Unive rsity of pressure [facility] Body temperature 2021-05-29 14:27:00 36.39 Jimena Univ ersity of [facility] Body height 2021-05-20 15:15:00 160 cm Universi [facility] Body weight 2021-05-20 15:15:[address] [facility] BMI 2021-05-20 15:15:00 46.06 kg/m2 [facility] Systolic blood 2021-05-29 12:08:00 156 mm[Hg] Univer sity of pressure [facility] Diastolic blood 2021-05-29 12:08:00 75 mm[Hg] Unive rsity of pressure [facility] Heart rate 2021-05-29 12:08:00 62 /min Universi [facility] Body temperature 2021-05-29 12:08:00 36.22 [facility]ena [facility] 2021-05-29 12:08:00 18 /min [facility] Oxygen saturation in 2021-05-29 12:08:00 98 /min [facility] Arterial blood by [facility] Pulse oximetry Branch Body height 2021-05-20 15:15:00 160 cm Universi [facility] Body weight 2021-05-20 15:15:00 117.935 kg [facility] BMI 2021-05-20 15:15:00 46.06 kg/m2 [facility] BMI Calculated 2014-12-06 12:26:00 Memori al [place] Weight 2014-12-06 12:26:00 [facility] [place] Height 2014-12-06 12:26:00 162.56 cm [facility] [place] Systolic (mm Hg) 2014-11-10 12:45:00 Tobi rial [place] Diastolic (mm Hg) 2014-11-10 12:45:00 Mem orial [place] Respitory Rate 2014-11-10 12:45:00 Memori al [place] Heart Rate 2014-11-10 12:45:00 [facility] [place] Temperature Oral (F) 2014-11-10 12:45:00 97.3 F [facility] [place] Temperature Oral (F) 2014-11-10 08:17:00 97.8 F [facility] [place] Systolic (mm Hg) 2014-11-10 08:17:00 Tobi rial [place] Diastolic (mm Hg) 2014-11-10 08:17:00 Mem orial [place] Respitory Rate 2014-11-10 08:17:00 Memori al [place] Systolic (mm Hg) 2014-11-10 04:33:00 Tobishreya lawson [place] Diastolic (mm Hg) 2014-11-10 04:33:00 Mem orial [place] Temperature Oral (F) 2014-11-10 04:33:00 97.8 F [facility] [place] Respitory Rate 2014-11-10 04:33:00 Memori al [place] Heart Rate 2014-11-09 16:15:00 [facility] [place] Heart Rate 2014-11-09 16:00:00 [facility] [place] Weight 2014-11-09 02:52:00 [facility] [place] BMI Calculated 2014-11-09 02:52:00 Memori al [place] Height 2014-11-09 02:52:[address] [facility] Procedures Procedure Date / Time Performing Source Performed Clinician PHACOEMULSIFICATION OF 2021-05-29 Sabas Schwab [facility] CATARACT WITH INTRAOCULAR 13:48:00 [facility] LENS IMPLANT POCT GLUCOSE(AGE >30DAYS) 2021-05-29 Najma Win [facility] 12:16:00 [facility] POCT GLUCOSE(AGE >30DAYS) 2021-05-29 Najma Win [facility] 12:16:00 Medical Branch DAY SURGERY - ADC 2021-05-29 Doctor Unassigned, [facility] 05:01:00 [place] [facility] History of Cholecystectomy [facility] of Splenectomy [facility] History of Total Abdominal [facility] Hysterectomy History of Hemorrhoidectomy [facility] History of Tonsillectomy With [facility] Adenoidectomy History of Inguinal Hernia [facility] Repair Abdominal hysterectomy [facility] [place] Bilateral inguinal hernia Memori al [place] repair Cholecystectomy Memorial [place] Hemorrhoidectomy Memorial Michael n Tonsillectomy and Memorial Lidya nn adenoidectomy Total splenectomy [facility] Lidya nn Plan of Care Planned Activity Planned Date Details Comments Source Future Scheduled 2022-06-25 [facility]FLU[facility]ZA [facility]INE [facility] 15:12:51 [code = INFLUENZA VACCINE] Future Scheduled 2022-06-25 SHINGLES VACCINES ([facility] 15:12:51 of 2) [code = SHINGLES VACCINES (1 of 2)] Future Scheduled 2022-06-25 65+ PNEUMOCOCCAL [facility] Test 15:12:51 VACCINE (1 - PCV) [code = 65+ PNEUMOCOCCAL VACCINE (1 - PCV)] Future Scheduled 2022-06-25 COVID-19 VACCINE (3 - [facility] Test 15:12:51 Booster for Pfizer series) [code = COVID-19 VACCINE (3 - Booster for Pfizer series)] Future Scheduled 2022-06-25 SHINGLES VACCINES (1 [facility] Test 15:12:51 of 2) [code = SHINGLES VACCINES (1 of 2)] Future Scheduled 2022-06-25 65+ PNEUMOCOCCAL [facility] Test 15:12:51 VACCINE (1 - PCV) [code = 65+ PNEUMOCOCCAL VACCINE (1 - PCV)] Future Scheduled 2022-06-25 COVID-19 VACCINE (3 - [facility] Test 15:12:51 Booster for Pfizer series) [...] 00:00:00 (1 of 1 - Medical Center [id number] PCV13) [code = PNEUMOCOCCAL 65+ YRS (1 of 1 - [id number] PCV13)] Encounters Start End Encounter Admission Attending Care Care Encounter Source Date/Time Date/Time Type Type Clinicians Facility Department ID 2021-04-15 Outpatient STEFANO HODGE OPH [id number] Univers 17:37:13 SABAS coyne [facility] 2021-05-29 2021-05-29 Outpatient STEFANO HODGE OPH [id number] Univers 07:03:00 09:54:00 SABAS coyne [facility] 2021-05-29 2021-05-29 [facility] STEFANO Schwab [id number] Univers 07:03:00 09:54:00 Encounter Sabas Rich ALMA ROSA [id number] [id number] [id number] [facility] 071 Branch 2021-05-29 2021-05-29 [facility] [id number] Univers 08:11:00 08:49:00 Sabas Rich ALMA ROSA [id number] [id number] [id number] [facility] 020 Branch 2021-05-29 2021-05-29 Orders Doctor DHIRAJ [id number] Univers 00:00:00 00:00:00 Only Unassigned, MADELEINE [id number] ity of [place] [facility] 4.2.7.2.686 Guillermo as [id number] [facility] 009 Branch 2021-04-29 2021-04-29 Laboratory Only, Adc Test [facility] [id number] Univers 14:45:00 15:00:00 Only SuadSabas [id number] 0 [id number] [id number] [facility] [address] 2021-04-29 2021-04-29 Outpatient R SUAD [facility] [id number] Univers 14:45:00 14:45:00 SABAS coyne [facility] 2021-04-15 2021-04-15 Medical Transcriptionist Yifan, Adc Lab Main [facility] [id number] Univers 17:15:00 17:30:00 Visit Sabas Schwab [id number] 0 [facility] [id number] [id number] [address] 2021-04-15 2021-04-15 Outpatient R SUAD [facility] [id number] Univers 17:15:00 17:15:00 SABAS coyne [facility] 2021-02-08 2021-02-09 Outpatient ADOLPH, [facility] [id number] [place] 00:00:00 00:00:00 NADIM [address] 2021-02-04 2021-02-04 Outpatient ADOLPH, [facility] [id number] [place] 00:00:00 00:00:00 NADIM [address] 2020-07-16 2020-07-16 Outpatient Huong CHRISTIE [facility] [id number] Univers 09:05:00 09:05:37 [facility] 2020-06-23 2020-06-23 Outpatient Huong CHRISTIE [facility] [id number] Univers 09:00:00 09:07:43 [facility] 2015-04-10 2015-04-[place] [id number] Memoria 18:42:00 05:59:00 Services r Outpatient 01 l Imaging [place] Kahnann 2015-04-10 2015-04-11 Outpt Diag nullFlavo [facility] [id number] Memoria 18:42:00 05:59:00 Services r Outpatient 01 l Imaging [place] Kahnann 2015-04-10 2015-04-10 Outpatient CRIS GoodwinH MHOIH [id number] 12:42:00 23:59:00 Vlad James 2015-04-10 2015-04-10 JULIA Covarrubias [facility] [id number] [place] 09:00:00 09:00:00 t; VLAD GOODWIN M.D. Physici KAZIM, ans M.D. 2015-04-09 2015-04-10 Outpt Diag nullFlavo [facility] [id number] Memoria 18:48:00 05:59:00 Services r Outpatient 00 l Imaging [place] 2015-04-09 2015-04-10 Outpt Diag nullFlavo [facility] [id number] Memoria 18:48:00 05:59:00 Services r Outpatient 00 l Imaging [place] 2015-04-09 2015-04-09 Outpatient Zoya MHOIP MHOIP [id number] 12:48:00 23:59:00 Citlalimagdalena Reyes 2015-03-27 2015-03-27 AppointJULIA Suarez [facility] [id number] [place] 11:15:00 11:15:00 t; CITLALI KENNY, Ph Dena Combs M.D. 2015-03-06 2015-03-06 Rorygabi GOODWINJULIA UTP [id number] [place] 09:00:00 09:00:00 t; VLAD GOODWIN M.D. Physici KAZIM, ans M.D. 2014-12-06 2014-12-07 Outpatient nullFlavo [facility] [id number] Memoria 12:19:00 04:59:[address] 2014-12-06 2014-12-07 Outpatient nullFlavo [facility] [id number] Memoria 12:19:00 04:59:[address] 2014-12-06 2014-12-06 Outpatient Lyn [facility] [id number] 07:19:00 23:59:00 Ancayden Junior [facility] 2014-11-08 2014-11-10 Inpatient nullFlavo [facility] [id number] Memoria 21:20:00 17:54:[address] 2014-11-08 2014-11-10 Inpatient nullFlavo [facility] [id number] Memoria 21:20:00 17:54:[address] 2014-11-08 2014-11-10 Outpatient Robertnelson [facility] [id number] 16:20:00 12:54:00 Deric Villafana Results Test Description Test Time Test Comments Results Result Comments Source POCT Glucose 2021-05-29 12:16:00 Test Item Value Reference Range Interpretation Comme nts POCT Glu (age>30days) (test code = 3342) 141 mg/dL 70-110 A Lab Interpretation (test code = 99858-2) Abnormal [facility] [id number] 12:16:00 Test Item Value Reference Range Interpretation Comments POCT Glu (age>30days) (test code = 141 mg/dL 70-110 A 3342) Lab Interpretation (test code = Abnormal 15645-3) [facility] (COVID-19) RNA [Presence] in Respiratory specimen by GURMEET with probe [id number] 19:42:59 Test Item Value Reference Range Interpretation Comments SARS-CoV-2 (COVID-19) RNA Not detected Not-Detected [Presence] in Respiratory specimen by GURMEET with probe detection (test code = 82352-4) Whether patient is employed in a healthcare setting (test code = 28447-4) Whether the patient has symptoms related to condition of interest (test code = 86319-1) Patient was hospitalized because of this condition (test code = 75263-7) Whether the patient was admitted to intensive care unit (ICU) for condition of interest (test code = 29586-3) Whether patient resides in a congregate care setting (test code = 12393-7) [facility] WESTPOCT-GLUCOSE [id number] 12:30:00 Test Item Value Reference Range Interpretation Comments POC-GLUCOSE METER 164 mg/dL 70-110 H TESTED AT [place] [address] ([facility]) (test code = DAVE Borja [facility] 1538) 39989 POCT-GLUCOSE [id number] 12:29:00 Test Item Value Reference Range Interpretation Comments POC-GLUCOSE METER 83 mg/dL 70-110 TESTED AT [place] [address] ([facility]) (test code = DAVE Borja [facility] [address] 1538) POCT-GLUCOSE [id number] 22:17:00 Test Item Value Reference Range Interpretation Comments POC-GLUCOSE METER 116 mg/dL 70-110 H TESTED AT [place] [address] ([facility]) (test code = DAVE Borja [facility] 1538) 41523 POCT-GLUCOSE [id number] 17:38:00 Test Item Value Reference Range Interpretation Comments POC-GLUCOSE METER 168 mg/dL 70-110 H TESTED AT [place] [address] ([facility]) (test code = DAVE Borja [facility] 1538) [id number] POCT-GLUCOSE [id number] 12:41:00 Test Item Value Reference Range Interpretation Comments POC-GLUCOSE METER 243 mg/dL 70-110 H TESTED AT [place] [address] ([facility]) (test code = DAVE Borja [facility] 1538) [address] POCT-GLUCOSE [id number] 09:34:00 Test Item Value Reference Range Interpretation Comments POC-GLUCOSE METER 193 mg/dL 70-110 H TESTED AT [facility] 6720 ([facility]) (test code = [facility] 1538) [address] POCT-GLUCOSE [id number] 21:52:00 Test Item Value Reference Range Interpretation Comments POC-GLUCOSE METER 222 mg/dL 70-[address] [facility] 67 (BEAKER) (test code = [facility] 1538) [address]71 POCT-GLUCOSE [id number] 18:59:00 Test Item Value Reference Range Interpretation Comments POC-GLUCOSE METER 181 mg/dL 70-110 H TESTED AT [place] [address] [facility] (test code = [facility] 1538) 95472 POCT-GLUCOSE [id number] 14:21:00 Test Item Value Reference Range Interpretation Comments POC-GLUCOSE METER 179 mg/dL 70-110 H TEST[facility] AT [place] [address] [facility] (test code = [facility] 1538) 5[address] POCT-GLUCOSE [id number] 09:40:00 Test Item Value Reference Range Interpretation Comments POC-GLUCOSE METER 211 mg/dL 70-110 H TESTED AT [place] [address] ([facility]) (test code = [facility] 1538) 85[address] BASIC METABOLIC [id number] 06:49:00 Test Item Value Reference Range Interpretation [...] PATIEN TS. CBC W/PLT COUNT & AUTO [id number] 06:45:00 Test Item Value Reference Range Interpretation [...] (BEAKER) (test code = 2801) URINALYSIS W/ [id number] 04:40:00 Test Item Value Reference Range Interpretation [...] 516) SOURCE(BEAKER) (test code = 2795) POCT-GLUCOSE [id number] 20:47:00 Test Item Value Reference Range Interpretation Comments POC-GLUCOSE METER 273 mg/dL 70-[address] [facility] 6720 (BEAKER) (test code = [place] 1538) [address] POCT-GLUCOSE [id number] 18:20:00 Test Item Value Reference Range Interpretation Comments POC-GLUCOSE METER 305 mg/dL 70-110 H Notified R Siria SMITH/TESTED (BEAKER) (test code = AT [facility] [address] 1538) [place] [address] POCT-GLUCOSE [id number] 14:27:00 Test Item Value Reference Range Interpretation Comments POC-GLUCOSE METER 215 mg/dL 70-[address] [facility] 6720 [facility] (test code = DAVE Borja [place] 1538) [address] POCT-GLUCOSE [id number] 12:10:00 Test Item Value Reference Range Interpretation Comments POC-GLUCOSE METER 278 mg/dL 70-[address] [facility] 6720 [facility] (test code = DAVE Borja [place] 1538) [address] POCT-GLUCOSE [id number] 08:12:00 Test Item Value Reference Range Interpretation Comments POC-GLUCOSE METER 225 mg/dL 70-110 H TESTED AT [place] [address] ([facility] (test code = DAVE Bor[place] 1538) [address] POCT-GLUCOSE [id number] 21:36:00 Test Item Value Reference Range Interpretation Comments POC-GLUCOSE METER 272 mg/dL 70-110 H TESTED AT [place] [address] ([facility]) (test code = DAVE Bor[place] 1538) [address] POCT-GLUCOSE [id number] 18:06:00 Test Item Value Reference Range Interpretation Comments POC-GLUCOSE METER 264 mg/dL 70-110 H TESTED AT [place] [address] ([facility]) (test code = DAVE Borja [place] 1538) [address] POCT-GLUCOSE [id number] 13:33:00 Test Item Value Reference Range Interpretation Comments POC-GLUCOSE METER 225 mg/dL 70-110 H TESTED AT [place] [id number] ([facility]) (test code = DAVE Bor[place] 1538) [address] POCT-GLUCOSE [id number] 08:16:00 Test Item Value Reference Range Interpretation Comments POC-GLUCOSE METER 217 mg/dL 70-110 H TESTED AT [place] [address] ([facility]) (test code = DAVE Borja [place] 1538) [address] [id number] 07:48:00 Test Item Value Reference Range Interpretation Comments MAGNESIUM (BEAKER) (test code = 1.6 mg/dL 1.6-2.6 627) BASIC METABOLIC [id number] 07:48:00 Test Item Value Reference Range Interpretation [...] PATIEN TS. CBC W/PLT COUNT & AUTO [id number] 07:18:00 Test Item Value Reference Range Interpretation [...] PERCENT (BEAKER) (test code = 2801) POCT-GLUCOSE [id number] 23:19:00 Test Item Value Reference Range Interpretation Comments POC-GLUCOSE METER 214 mg/dL 70-[address] [facility] 6720 (BEAKER) (test code = [facility] 1538) [address]960 POCT-GLUCOSE [id number] 16:37:00 Test Item Value Reference Range Interpretation Comments POC-GLUCOSE METER 192 mg/dL 70-[address] [facility] 6720 (BEAKER) (test code = [facility] 1538) 93483 POCT-GLUCOSE [id number] 12:47:00 Test Item Value Reference Range Interpretation Comments POC-GLUCOSE METER 233 mg/dL 70-[address] [facility] 6720 (BEAKER) (test code = [facility] 1538) 93592 BASIC METABOLIC [id number] 11:26:00 Test Item Value Reference Range Interpretation [...] S NOT APPLICABLE FOR DIALYSIS PATIEN TS. [id number] 11:26:00 Test Item Value Reference Range Interpretation Comments MAGNESIUM (BEAKER) (test code = 1.2 mg/dL 1.6-2.6 L 627) CBC W/PLT COUNT & AUTO [id number] 11:17:00 Test Item Value Reference Range Interpretation [...] 3438) Received comment: User comments: Slide comments:POCT-GLUCOSE [id number] 07:57:00 Test Item Value Reference Range Interpretation Comments POC-GLUCOSE METER 165 mg/dL 70-[address] [facility] 6720 (BEAKER) (test code = DAVE [place] 1538) [address]78 POCT-GLUCOSE [id number] 22:08:00 Test Item Value Reference Range Interpretation Comments POC-GLUCOSE METER 161 mg/dL 70-[address] [facility] 6720 (BEAKER) (test code = DAVE Bor[place] 1538) [address] POCT-GLUCOSE [id number] 18:10:00 Test Item Value Reference Range Interpretation Comments POC-GLUCOSE METER 141 mg/dL 70-110 H TESTED AT [place] [id number] (BEAKER) (test code = DAVE Borja [place] 1538) [address] [id number] 14:55:00 Test Item Value Reference Range Interpretation Comments MAGNESIUM (BEAKER) 1.2 mg/dL 1.6-2.6 L Specimen slightly (test code = 627) hemolyzed BASIC METABOLIC [id number] 14:55:00 Test Item Value Reference Range Interpretation [...] NOT APPLICABLE FOR DIALYSIS PATIEN TS. POCT-GLUCOSE [id number] 12:01:00 Test Item Value Reference Range Interpretation Comments POC-GLUCOSE METER 163 mg/dL 70-[address] [facility] 6720 (BEAKER) (test code = DAVE Bor[place] 1538) [address] CBC W/PLT COUNT & AUTO [id number] 11:57:00 Test Item Value Reference Range Interpretation [...] % 0-1 PERCENT (BEAKER) (test code = 7611) POCT-GLUCOSE [id number] 10:18:00 Test Item Value Reference Range Interpretation Comments POC-GLUCOSE METER 155 mg/dL 70-110 H TESTED AT [place] [address] ([facility]) (test code = [facility] Huong [facility] 1538) [address] POCT-GLUCOSE [id number] 08:13:00 Test Item Value Reference Range Interpretation Comments POC-GLUCOSE METER 157 mg/dL 70-110 H TESTED AT [place] [address] ([facility]) (test code = [facility] 1538) 36213 POCT-GLUCOSE [id number] 21:57:00 Test Item Value Reference Range Interpretation Comments POC-GLUCOSE METER 181 mg/dL 70-110 H TESTED AT [place] [address] ([facility]) (test code = [facility] 1538) 61665 POCT-GLUCOSE [id number] 17:39:00 Test Item Value Reference Range Interpretation Comments POC-GLUCOSE METER 232 mg/dL 70-110 H TESTED AT [place] [address] ([facility]) (test code = [facility] 1538) 63183 POCT-GLUCOSE [id number] 12:55:00 Test Item Value Reference Range Interpretation Comments POC-GLUCOSE METER 207 mg/dL 70-110 H TESTED AT [place] [address] ([facility]) (test code = [facility] 1538) 67784 CBC W/PLT COUNT & AUTO [id number] 12:50:00 Test Item Value Reference Range Interpretation Comments WHITE BLOOD CELL COUNT ([facility]) 11.8 K/ L 3.5-10.5 H (test code = 775) RED BLOOD CELL COUNT ([facility]) 2.74 M/ L 3.93-5.22 L (test code = 761) HEMOGLOBIN (AKER) (test code = 10.3 GM/DL 11.2-15.7 L 410) HEMATOCRIT ([facility]) (test code = 28.6 % 34.1-44.9 L 411) MEAN CORPUSCULAR VOLUME ([facility]) 104.4 fL 79.4-94.8 H (test code = 753) MEAN CORPUSCULAR HEMOGLOBIN 37.6 pg 25.6-32.2 H ([facility]) (test code = 751) MEAN CORPUSCULAR HEMOGLOBIN [...] 3438) Received comment: User comments: Slide comments:POCT-GLUCOSE [id number] 08:56:00 Test Item Value Reference Range Interpretation Comments POC-GLUCOSE METER 194 mg/dL 70-[address] [facility] 6720 (BEAKER) (test code = DAVE Borja [place] 1538) [address] [id number] 06:11:00 Test Item Value Reference Range Interpretation Comments MAGNESIUM (BEAKER) (test code = 1.4 mg/dL 1.6-2.6 L 627) BASIC METABOLIC [id number] 06:11:00 Test Item Value Reference Range Interpretation [...] NOT APPLICABLE FOR DIALYSIS PATIEN TS. POCT-GLUCOSE [id number] 21:53:00 Test Item Value Reference Range Interpretation Comments POC-GLUCOSE METER 225 mg/dL 70-[address] [facility] 6720 (BEAKER) (test code = DAVE Bor[place] 1538) [address] POCT-GLUCOSE [id number] 19:30:00 Test Item Value Reference Range Interpretation Comments POC-GLUCOSE METER 225 mg/dL 70-[address] [facility] 6720 (BEAKER) (test code = DAVE Borja [place] 1538) [address] POCT-GLUCOSE [id number] 15:02:00 Test Item Value Reference Range Interpretation Comments POC-GLUCOSE METER 179 mg/dL 70-110 H TESTED AT [place] [address] ([facility] (test code = DAVE Borja [place] 1538) [address] [id number] 13:04:00 Test Item Value Reference Range Interpretation Comments MAGNESIUM (BEAKER) 1.5 mg/dL 1.6-2.6 L Specimen slightly (test code = 627) hemolyzed Check Serum Magnesium level 2 hours after IV magnesium replacement.Every 8 hours PRN for Creatinine greater than or equal to 2 mg/dL.[id number] 13:04:00 Test Item Value Reference Range Interpretation Comments POTASSIUM (BEAKER) 4.2 meq/L 3.5-5.1 Specimen slightly (test code = 379) hemolyzed Check Serum Magnesium level 2 hours after IV magnesium replacement.Every 8 hours PRN for Creatinine greater than or equal to 2 mg/dL.POCT-GLUCOSE METER 2018-08-09 08:24:00 Test Item Value Reference Range Interpretation Comments POC-GLUCOSE METER 189 mg/dL 70-110 H TESTED AT [place] [address] ([facility]) (test code = DAVE Borja [facility] 1538) [address] CBC W/PLT COUNT & AUTO [id number] 08:03:00 Test Item Value Reference Range Interpretation [...] 3438) Received comment: User comments: Slide comments:CALCIUM, [id number] 05:17:00 Test Item Value Reference Range Interpretation Comments CALCIUM IONIZED (BEAKER) (test 1.26 mmol/L 1.12-1.27 code = 698) PH, BLOOD (BEAKER) (test code = 7.42 1810) [id number] 05:09:00 Test Item Value Reference Range Interpretation Comments PHOSPHORUS (BEAKER) (test code = 2.0 mg/dL 2.3-4.7 L 604) [id number] 05:09:00 Test Item Value Reference Range Interpretation Comments MAGNESIUM (BEAKER) (test code = 1.6 mg/dL 1.6-2.6 627) BASIC METABOLIC [id number] 05:09:00 Test Item Value Reference Range Interpretation [...] NOT APPLICABLE FOR DIALYSIS PATIEN TS. POCT-GLUCOSE [id number] 23:39:00 Test Item Value Reference Range Interpretation Comments POC-GLUCOSE METER 200 mg/dL 70-[address] [facility] 6720 (BEAKER) (test code = [place] 1538) [address] [id number] 22:42:00 Test Item Value Reference Range Interpretation Comments MAGNESIUM (BEAKER) (test code = 1.5 mg/dL 1.6-2.6 L 627) POTASSIUM-STAT [id number] 22:24:00 Test Item Value Reference Range Interpretation Comments POTASSIUM (BEAKER) (test code = 3.7 meq/L 3.6-5.5 379) BLOOD GAS, [id number] 22:24:00 Test Item Value Reference Range Interpretation [...] (test code = 1819) 28.0 % CALCIUM, [id number] 22:23:00 Test Item Value Reference Range Interpretation Comments [facility] (test 1.21 mmol/L 1.12-1.27 code = 698) PH, BLOOD ([facility]) (test code = 7.44 1810) POCT-GLUCOSE [id number] 17:12:00 Test Item Value Reference Range Interpretation Comments POC-GLUCOSE METER 199 mg/dL 70-110 H TESTED AT [place] [address] ([facility]) (test code = DAVE Borja [facility] 1538) [address] POCT-GLUCOSE [id number] 12:12:00 Test Item Value Reference Range Interpretation Comments POC-GLUCOSE METER 184 mg/dL 70-110 H TESTED AT [place] [address] ([facility]) (test code = DAVE Borja [facility] 1538) [address] POCT-GLUCOSE [id number] 08:49:00 Test Item Value Reference Range Interpretation Comments POC-GLUCOSE METER 195 mg/dL 70-110 H TESTED AT [place] [address] ([facility]) (test code = ZAIREKY Huong [facility] 1538) [address] RAD, CHEST, 1 VIEW, NON [id number] 08:36:00Reason for exam:->s/p CV surgeryShould this be [...] surgical changes.Additional findings: None. Signed: Vandana Posadas MDReport Verified Date/Time: 08/08/2018 08:36:43 Reading Location: [address] Neuro Reading Room CBC W/PLT COUNT & AUTO [id number] 05:32:00 Test Item Value Reference Range Interpretation [...] 0-1 PERCENT (BEAKER) (test code = 2801) [id number] 05:14:00 Test Item Value Reference Range Interpretation Comments MAGNESIUM (BEAKER) (test code = 2.1 mg/dL 1.6-2.6 627) BASIC METABOLIC [id number] 05:14:00 Test Item Value Reference Range Interpretation [...] NOT APPLICABLE FOR DIALYSIS PATIEN TS. CALCIUM, [id number] 05:07:00 Test Item Value Reference Range Interpretation Comments CALCIUM IONIZED (BEAKER) (test 1.21 mmol/L 1.12-1.27 code = 698) PH, BLOOD (BEAKER) (test code = 7.42 1810) BLOOD GAS, [id number] 05:06:00 Test Item Value Reference Range Interpretation [...] code = 1819) 28.0 % LACTIC ACID, [id number] 05:01:00 Test Item Value Reference Range Interpretation Comments LACTATE BLOOD ARTERIAL (2) 1.0 mmol/L 0.5-2.2 (BEAKER) (test code = 2874) POCT-GLUCOSE [id number] 23:22:00 Test Item Value Reference Range Interpretation Comments POC-GLUCOSE METER 252 mg/dL 70-[address] [facility] 6720 (BEAKER) (test code = [place] 1538) [address] LACTIC ACID, [id number] 19:42:00 Test Item Value Reference Range Interpretation Comments LACTATE BLOOD ARTERIAL (2) 1.6 mmol/L 0.5-2.2 (BEAKER) (test code = 2874) BLOOD GAS, [id number] 19:33:00 Test Item Value Reference Range Interpretation [...] code = 1819) 36.0 % LACTIC ACID, [id number] 16:37:00 Test Item Value Reference Range Interpretation Comments LACTATE BLOOD ARTERIAL (2) 2.6 mmol/L 0.5-2.2 H (BEAKER) (test code = 2874) BLOOD GAS, [id number] 16:21:00 Test Item Value Reference Range Interpretation [...] code = 1819) 36.0 % BLOOD GAS, [id number] 15:01:00 Test Item Value Reference Range Interpretation [...] code = 1819) 36.0 % OXYGEN SATURATION, [id number] 14:58:00 Test Item Value Reference Range Interpretation Comments O2 SATURATION (MEASURED) (BEAKER) 63.8 % (test code = 1455) LACTIC ACID, [id number] 08:57:00 Test Item Value Reference Range Interpretation Comments LACTATE BLOOD ARTERIAL (2) 0.9 mmol/L 0.5-2.2 (BEAKER) (test code = 2874) RAD, CHEST, 1 VIEW, NON [id number] 06:53:00Reason for exam:->s/p CV surgeryShould this be [...] quadrant. Prior median sternotomy. Signed: Lisa Sheldon [facility] Verified Date/Time: 08/07/2018 06:53:26 Reading Location: [facility] C013Y CT Body Reading Room [id number] 04:25:00 Test Item Value Reference Range Interpretation Comments PHOSPHORUS (BEAKER) (test code = 2.6 mg/dL 2.3-4.7 604) [id number] 04:25:00 Test Item Value Reference Range Interpretation Comments MAGNESIUM (BEAKER) (test code = 1.9 mg/dL 1.6-2.6 627) BASIC METABOLIC [id number] 04:25:00 Test Item Value Reference Range Interpretation [...] 0-0 (BEAKER) (test code = 413) CALCIUM, [id number] 03:31:00 Test Item Value Reference Range Interpretation Comments CALCIUM IONIZED (BEAKER) (test 1.23 mmol/L 1.12-1.27 code = 698) PH, BLOOD (BEAKER) (test code = 7.40 1810) BLOOD GAS, [id number] 03:19:00 Test Item Value Reference Range Interpretation [...] (BEAKER) (test code = 1819) 32.0 % [id number] 22:08:00 Test Item Value Reference Range Interpretation Comments MAGNESIUM (BEAKER) (test code = 2.2 mg/dL 1.6-2.6 627) BLOOD GAS, [id number] 22:00:00 Test Item Value Reference Range Interpretation [...] (test code = 1819) 32.0 % GLUCOSE-STAT [id number] 22:00:00 Test Item Value Reference Range Interpretation Comments GLUCOSE RANDOM (BEAKER) (test code 187 mg/dL 70-110 H = 652) HGB/HCT (H&H) - STAT [id number] 22:00:00 Test Item Value Reference Range Interpretation Comments HEMOGLOBIN (BEAKER) (test code = 10.3 g/dL 12.0-15.0 L 410) HEMATOCRIT ([facility]) (test code = 30.0 % 36.0-45.0 L 411) SODIUM NA-STAT [id number] 21:59:00 Test Item Value Reference Range Interpretation Comments SODIUM (BEAKER) (test code = 381) 137 meq/L 135-148 POTASSIUM-STAT [id number] 21:59:00 Test Item Value Reference Range Interpretation Comments POTASSIUM (BEAKER) (test code = 4.0 meq/L 3.6-5.5 379) OXYGEN SATURATION, [id number] 21:59:00 Test Item Value Reference Range Interpretation Comments O2 SATURATION (MEASURED) ([facility]) 70.7 % (test code = 1455) CALCIUM, [id number] 21:59:00 Test Item Value Reference Range Interpretation Comments CALCIUM IONIZED ([facility]) (test 1.23 mmol/L 1.12-1.27 code = 698) PH, BLOOD ([facility]) (test code = 7.41 1810) POCT-GLUCOSE [id number] 17:02:00 Test Item Value Reference Range Interpretation Comments POC-GLUCOSE METER 223 mg/dL 70-110 H TESTED AT [place] [address] ([facility]) [facility] Borja [facility] 1538) [address] POCT-GLUCOSE [id number] 12:13:00 Test Item Value Reference Range Interpretation Comments POC-GLUCOSE METER 109 mg/dL 70-110 TESTED AT [place] [address] ([facility]) (test code = [facility] 1538) 85484 POCT-GLUCOSE [id number] 10:41:00 Test Item Value Reference Range Interpretation Comments POC-GLUCOSE METER 105 mg/dL 70-110 TESTED AT [place] [address] ([facility]) (test code = [facility] 1538) [address] COMPREHENSIVE METABOLIC [id number] 09:37:00 Test Item Value Reference Range Interpretation Comments TOTAL PROTEIN 5.7 gm/dL 6.0-8.3 L ([facility]) (test code = 770) ALBUMIN ([facility]) 4.0 g/dL 3.5-5.0 (test code = 1145) ALKALINE PHOSPHATASE 44 U/L 40-150 ([facility]) (test code = 346) BILIRUBIN TOTAL 1.0 [...] APPLICABLE FOR DIALYSIS PATIEN TS. BLOOD GAS, [id number] 08:39:00 Test Item Value Reference Range Interpretation [...] 40.0 % RAD, CHEST, 1 VIEW, NON [id number] 07:24:00Reason for exam:->s/p CV surgeryShould this be [...] MDReport Verified Date/Time: 08/06/2018 07:24:21 Reading Location: [facility] Radiology Reading Room POCT-GLUCOSE [id number] 06:19:00 Test Item Value Reference Range Interpretation Comments POC-GLUCOSE METER 157 mg/dL 70-110 H TESTED AT [place] [address] ([facility]) (test code = [facility] Huong [facility] 1538) [address] POCT-GLUCOSE [id number] 06:19:00 Test Item Value Reference Range Interpretation Comments POC-GLUCOSE METER 162 mg/dL 70-110 H TESTED AT [place] [address] ([facility]) (test code = [facility] 1538) 13567 POCT-GLUCOSE [id number] 06:18:00 Test Item Value Reference Range Interpretation Comments POC-GLUCOSE METER 120 mg/dL 70-110 H TESTED AT [place] [address] [facility] (test code = [facility] 1538) [address] [id number] 04:49:00 Test Item Value Reference Range Interpretation [...] than or equal to 2 mg/dL.BASIC METABOLIC [id number] 04:49:00 Test Item Value Reference Range Interpretation [...] than or equal to 2 mg/dL.LACTIC ACID, [id number] 04:44:00 Test Item Value Reference Range Interpretation [...] (BEAKER) (test code = 413) OXYGEN SATURATION, [id number] 04:32:00 Test Item Value Reference Range Interpretation Comments O2 SATURATION (MEASURED) (BEAKER) 69.8 % (test code = 1455) CALCIUM, [id number] 04:28:00 Test Item Value Reference Range Interpretation Comments CALCIUM IONIZED (BEAKER) (test 1.19 mmol/L 1.12-1.27 code = 698) PH, BLOOD (BEAKER) (test code = 7.41 1810) BLOOD GAS, [id number] 04:27:00 Test Item Value Reference Range Interpretation [...] (test code = 1819) 40.0 % POCT-GLUCOSE [id number] 02:20:00 Test Item Value Reference Range Interpretation Comments POC-GLUCOSE METER 165 mg/dL 70-110 H TESTED AT [place] [address] ([facility]) (test code = DAVE [place] 1538) [address] POCT-GLUCOSE [id number] 02:20:00 Test Item Value Reference Range Interpretation Comments POC-GLUCOSE METER 180 mg/dL 70-110 H TESTED AT [place] [address] ([facility]) (test code = DAVE Bor[place] 1538) [address] POCT-GLUCOSE [id number] 02:20:00 Test Item Value Reference Range Interpretation Comments POC-GLUCOSE METER 191 mg/dL 70-110 H TESTED AT [place] [address] ([facility]) (test code = DAVE Borja [facility] 1538) [address] CALCIUM, [id number] 00:05:00 Test Item Value Reference Range Interpretation Comments CALCIUM IONIZED (BEAKER) (test 1.19 mmol/L 1.12-1.27 code = 698) PH, BLOOD (BEAKER) (test code = 7.37 1810) LACTIC ACID, [id number] 00:05:00 Test Item Value Reference Range Interpretation Comments LACTATE BLOOD 4.1 mmol/L 0.5-2.2 H Specimen sligh tly ARTERIAL (2) (BEAKER) hemoly zed (test code = 2874) BLOOD GAS, [id number] 00:04:00 Test Item Value Reference Range Interpretation [...] (test code = 1819) 40.0 % GLUCOSE-STAT [id number] 00:04:00 Test Item Value Reference Range Interpretation Comments GLUCOSE RANDOM (BEAKER) (test code 173 mg/dL 70-110 H = 652) HGB/HCT (H&H) - STAT [id number] 00:04:00 Test Item Value Reference Range Interpretation Comments HEMOGLOBIN (BEAKER) (test code = 8.6 g/dL 12.0-15.0 L 410) HEMATOCRIT (BEAKER) (test code = 25.0 % 36.0-45.0 L 411) [id number] 00:02:00 Test Item Value Reference Range Interpretation Comments MAGNESIUM (BEAKER) (test code = 2.4 mg/dL 1.6-2.6 627) Check Serum Magnesium level 2 hours after IV magnesium replacement.SODIUM NA- STAT [id number] 00:00:00 Test Item Value Reference Range Interpretation Comments SODIUM (BEAKER) (test code = 381) 137 meq/L 135-148 POTASSIUM-STAT [id number] 00:00:00 Test Item Value Reference Range Interpretation Comments POTASSIUM (BEAKER) (test code = 4.1 meq/L 3.6-5.5 379) POCT-GLUCOSE [id number] 22:43:00 Test Item Value Reference Range Interpretation Comments POC-GLUCOSE METER 182 mg/dL 70-110 H TEST[facility] AT [place] [id number] [facility] (test code = [facility] 1538) [address] POCT-GLUCOSE [id number] 22:43:00 Test Item Value Reference Range Interpretation Comments POC-GLUCOSE METER 174 mg/dL 70-110 H [facility] AT [place] [id number] [facility] (test code = [facility] 1538) [address] POCT-GLUCOSE [id number] 22:43:00 Test Item Value Reference Range Interpretation Comments POC-GLUCOSE METER 150 mg/dL 70-110 H TESTED AT [place] [id number] ([facility]) (test code = [facility] 1538) [address] CALCIUM, [id number] 19:54:00 Test Item Value Reference Range Interpretation Comments CALCIUM IONIZED (BEAKER) (test 1.16 mmol/L 1.12-1.27 code = 698) PH, BLOOD (BEAKER) (test code = 7.39 1810) LACTIC ACID, [id number] 19:40:00 Test Item Value Reference Range Interpretation Comments LACTATE BLOOD ARTERIAL (2) 2.3 mmol/L 0.5-2.2 H (BEAKER) (test code = 2874) [id number] 19:38:00 Test Item Value Reference Range Interpretation Comments MAGNESIUM (BEAKER) (test code = 2.2 mg/dL 1.6-2.6 627) SODIUM NA-STAT [id number] 19:24:00 Test Item Value Reference Range Interpretation Comments SODIUM (BEAKER) (test code = 381) 135 meq/L 135-148 POTASSIUM-STAT [id number] 19:24:00 Test Item Value Reference Range Interpretation Comments POTASSIUM (BEAKER) (test code = 3.7 meq/L 3.6-5.5 379) BLOOD GAS, [id number] 19:24:00 Test Item Value Reference Range Interpretation [...] (test code = 1819) 40.0 % GLUCOSE-STAT [id number] 19:24:00 Test Item Value Reference Range Interpretation Comments GLUCOSE RANDOM (BEAKER) (test code 163 mg/dL 70-110 H = 652) HGB/HCT (H&H) - STAT [id number] 19:24:00 Test Item Value Reference Range Interpretation Comments HEMOGLOBIN (BEAKER) (test code = 9.5 g/dL 12.0-15.0 L 410) HEMATOCRIT (BEAKER) (test code = 28.0 % 36.0-45.0 L 411) OXYGEN SATURATION, [id number] 19:23:00 Test Item Value Reference Range Interpretation Comments O2 SATURATION (MEASURED) (BEAKER) 73.8 % (test code = 1455) POCT-GLUCOSE [id number] 17:19:00 Test Item Value Reference Range Interpretation Comments POC-GLUCOSE METER 128 mg/dL 70-110 H TESTED AT [place] [address] ([facility]) (test code = [facility] [place] 1538) [address] OXYGEN SATURATION, [id number] 17:19:00 Test Item Value Reference Range Interpretation Comments O2 SATURATION (MEASURED) (BEAKER) 60.6 % (test code = 1455) POCT-GLUCOSE [id number] 17:19:00 Test Item Value Reference Range Interpretation Comments POC-GLUCOSE METER 158 mg/dL 70-110 H TESTED AT [place] [address] ([facility]) (test code = [facility] 1538) [address] LACTIC ACID, [id number] 17:01:00 Test Item Value Reference Range Interpretation Comments LACTATE BLOOD ARTERIAL (2) 1.5 mmol/L 0.5-2.2 (AKER) (test code = 2874) HEMOGLOBIN AND [id number] 16:49:00 Test Item Value Reference Range Interpretation Comments HEMOGLOBIN (BEAKER) (test code = 8.8 GM/DL 11.2-15.7 L 410) HEMATOCRIT (BEAKER) (test code = 26.5 % 34.1-44.9 L 411) POCT-GLUCOSE [id number] 16:31:00 Test Item Value Reference Range Interpretation Comments POC-GLUCOSE METER 191 mg/dL 70-110 H TESTED AT [place] [address] ([facility]) (test code = [facility] 1538) [address] BLOOD GAS, [id number] 16:26:00 Test Item Value Reference Range Interpretation [...] (BEAKER) (test code = 1819) 40.0 % [id number] 13:48:00 Test Item Value Reference Range Interpretation Comments MAGNESIUM (BEAKER) 2.2 mg/dL 1.6-2.6 Specimen slightly (test code = 627) hemolyzed [id number] 13:48:00 Test Item Value Reference Range Interpretation Comments PHOSPHORUS (BEAKER) 4.2 mg/dL 2.3-4.7 Specimen slightly (test code = 604) hemolyzed BASIC METABOLIC [id number] 13:48:00 Test Item Value Reference Range Interpretation [...] APPLICABLE FOR DIALYSIS PATIEN TS. LACTIC ACID, [id number] 13:42:00 Test Item Value Reference Range Interpretation Comments LACTATE BLOOD 1.1 mmol/L 0.5-2.2 Specimen sligh tly ARTERIAL (2) (BEAKER) hemoly zed (test code = 2874) RAD, CHEST, 1 VIEW, NON [id number] 13:35:00Reason for exam:->POST OPShould this be performed [...] are intact and well aligned. Signed: Logan Beanepor t Verified Date/Time: 08/05/2018 13:35:26 Reading Location: [facility] Radiology Reading Room CBC W/PLT COUNT & AUTO [id number] 13:33:00 Test Item Value Reference Range Interpretation [...] (BEAKER) (test code = 2801) BLOOD GAS, [id number] 13:27:00 Test Item Value Reference Range Interpretation [...] code = 1819) 60.0 % OXYGEN SATURATION, [id number] 13:21:00 Test Item Value Reference Range Interpretation Comments O2 SATURATION (MEASURED) (BEAKER) 64.2 % (test code = 1455) [id number] 12:22:00 Test Item Value Reference Range Interpretation Comments FIBRINOGEN LEVEL (BEAKER) (test 225 mg/dl 225-434 code = 658) [id number] 12:22:00 Test Item Value Reference Range Interpretation Comments PARTIAL THROMBOPLASTIN TIME 33.4 seconds 22.5-36.0 (BEAKER) (test code = 760) PROTHROMBIN [id number] 12:21:00 Test Item Value Reference Range Interpretation [...] L code = 756) MEAN PLATELET VOLUME ([facility]) 10.5 fL 9.4-12.3 (test code = 754) NUCLEATED RED BLOOD CELLS 1 /100 WBC 0-0 H ([facility]) (test code = 413) [id number] 11:30:00 Test Item Value Reference Range Interpretation Comments ACTIVATED CLOTTING TIME 109 sec TEST ED AT [place] [address] ([facility]) (test code = [place] [address]) [address] [id number] 11:30:00 Test Item Value Reference Range Interpretation Comments ACTIVATED CLOTTING TIME 433 sec TEST ED AT [place] [address] ([facility]) (test code = [place] 441) [address] [id number] 11:30:00 Test Item Value Reference Range Interpretation Comments ACTIVATED CLOTTING TIME 532 sec TEST ED AT [place] [address] ([facility]) (test code = [place] 441) [address] [id number] 11:30:00 Test Item Value Reference Range Interpretation Comments ACTIVATED CLOTTING TIME 648 sec TEST ED AT [place] [address] ([facility]) (test code = [place] 441) [address] [id number] 11:30:00 Test Item Value Reference Range Interpretation Comments ACTIVATED CLOTTING TIME 483 sec TEST ED AT [place] [address] ([facility]) (test code = [place] [address]) [address] [id number] 11:30:00 Test Item Value Reference Range Interpretation Comments ACTIVATED CLOTTING TIME 395 sec TEST ED AT [place] [address] ([facility]) (test code = [place] Borja [facility] 441) [address] CALCIUM, [id number] 11:21:00 Test Item Value Reference Range Interpretation Comments CALCIUM IONIZED ([facility]) (test 1.31 mmol/L 1.12-1.27 H code = 698) PH, BLOOD ([facility]) (test code = 7.38 1810) BLOOD GAS, [id number] 11:21:00 Test Item Value Reference Range Interpretation Comments PH ARTERIAL ([facility]) (test code = 7.39 7.35-7.45 383) PCO2 ARTERIAL (AKER) (test code 38 mmHg 35-45 = 384) PO2 ARTERIAL (BEAKER) (test code 286 mmHg 80-90 H = 385) O2 SATURATION ARTERIAL (BEAKER) 99.7 % 96.0-97.0 H (test code = 386) HCO3 ARTERIAL (BEAKER) (test code 23 mmol/L -29 = 388) BASE EXCESS ARTERIAL (BEAKER) -2.0 mmol/L -2.0-3.0 (test code = 387) PATIENT TEMPERATURE (BEAKER) 35.9 C (test code = 1818) FIO2 (BEAKER) (test code = 1819) 100.0 % SODIUM NA-STAT [id number] 11:21:00 Test Item Value Reference Range Interpretation Comments SODIUM (BEAKER) (test code = 381) 134 meq/L 135-148 L GLUCOSE-STAT [id number] 11:21:00 Test Item Value Reference Range Interpretation Comments GLUCOSE RANDOM (BEAKER) (test code 185 mg/dL 70-110 H = 652) HGB/HCT (H&H) - STAT [id number] 11:21:00 Test Item Value Reference Range Interpretation Comments HEMOGLOBIN (BEAKER) (test code = 8.6 g/dL 12.0-15.0 L 410) HEMATOCRIT (BEAKER) (test code = 25.0 % 36.0-45.0 L 411) POTASSIUM-STAT [id number] 11:20:00 Test Item Value Reference Range Interpretation Comments POTASSIUM (BEAKER) (test code = 3.8 meq/L 3.6-5.5 379) POTASSIUM-STAT [id number] 10:50:00 Test Item Value Reference Range Interpretation Comments POTASSIUM (BEAKER) (test code = 4.7 meq/L 3.6-5.5 379) BLOOD GAS, [id number] 10:50:00 Test Item Value Reference Range Interpretation Comments PH ARTERIAL (BEAKER) (test code = 7.43 7.35-7.45 383) PCO2 ARTERIAL (BEAKER) (test code 36 mmHg 35-45 = 384) PO2 ARTERIAL (BEAKER) (test code 319 mmHg 80-90 H = 385) O2 SATURATION ARTERIAL (BEAKER) 99.7 % 96.0-97.0 H (test code = 386) HCO3 ARTERIAL (BEAKER) (test code 24 mmol/L 29 = 388) BASE EXCESS ARTERIAL (BEAKER) -0.7 mmol/L -2.0-3.0 (test code = 387) PATIENT TEMPERATURE (BEAKER) 35.6 C (test code = 1818) FIO2 (BEAKER) (test code = 1819) 65.0 % SODIUM NA-STAT [id number] 10:50:00 Test Item Value Reference Range Interpretation Comments SODIUM (BEAKER) (test code = 381) 132 meq/L 135-148 L GLUCOSE-STAT [id number] 10:50:00 Test Item Value Reference Range Interpretation Comments GLUCOSE RANDOM (BEAKER) (test code 185 mg/dL 70-110 H = 652) HGB/HCT (H&H) - STAT [id number] 10:50:00 Test Item Value Reference Range Interpretation Comments HEMOGLOBIN (BEAKER) (test code = 9.2 g/dL 12.0-15.0 L 410) HEMATOCRIT (BEAKER) (test code = 27.0 % 36.0-45.0 L 411) POTASSIUM-STAT [id number] 10:23:00 Test Item Value Reference Range Interpretation Comments POTASSIUM (BEAKER) (test code = 5.2 meq/L 3.6-5.5 379) BLOOD GAS, [id number] 10:23:00 Test Item Value Reference Range Interpretation [...] (test code = 1819) 65.0 % GLUCOSE-STAT [id number] 10:23:00 Test Item Value Reference Range Interpretation Comments GLUCOSE RANDOM (BEAKER) (test code 170 mg/dL 70-110 H = 652) HGB/HCT (H&H) - STAT [id number] 10:23:00 Test Item Value Reference Range Interpretation Comments HEMOGLOBIN (BEAKER) (test code = 8.9 g/dL 12.0-15.0 L 410) HEMATOCRIT (BEAKER) (test code = 26.0 % 36.0-45.0 L 411) SODIUM NA-STAT [id number] 10:23:00 Test Item Value Reference Range Interpretation Comments SODIUM (BEAKER) (test code = 381) 132 meq/L 135-148 L BLOOD GAS, [id number] 09:58:00 Test Item Value Reference Range Interpretation [...] code = 1819) 60.0 % SODIUM NA-STAT [id number] 09:58:00 Test Item Value Reference Range Interpretation Comments SODIUM (BEAKER) (test code = 381) 132 meq/L 135-148 L GLUCOSE-STAT [id number] 09:58:00 Test Item Value Reference Range Interpretation Comments GLUCOSE RANDOM (BEAKER) (test code 160 mg/dL 70-110 H = 652) HGB/HCT (H&H) - STAT [id number] 09:58:00 Test Item Value Reference Range Interpretation Comments HEMOGLOBIN (BEAKER) (test code = 8.9 g/dL 12.0-15.0 L 410) HEMATOCRIT (BEAKER) (test code = 26.0 % 36.0-45.0 L 411) POTASSIUM-STAT [id number] 09:56:00 Test Item Value Reference Range Interpretation Comments POTASSIUM (BEAKER) (test code = 4.8 meq/L 3.6-5.5 379) BLOOD GAS, [id number] 09:29:00 Test Item Value Reference Range Interpretation [...] code = 1819) 80.0 % SODIUM NA-STAT [id number] 09:29:00 Test Item Value Reference Range Interpretation Comments SODIUM (BEAKER) (test code = 381) 131 meq/L 135-148 L GLUCOSE-STAT [id number] 09:29:00 Test Item Value Reference Range Interpretation Comments GLUCOSE RANDOM (BEAKER) (test code 180 mg/dL 70-110 H = 652) HGB/HCT (H&H) - STAT [id number] 09:29:00 Test Item Value Reference Range Interpretation Comments HEMOGLOBIN (BEAKER) (test code = 7.1 g/dL 12.0-15.0 L 410) HEMATOCRIT (BEAKER) (test code = 21.0 % 36.0-45.0 L 411) POTASSIUM-STAT [id number] 09:28:00 Test Item Value Reference Range Interpretation Comments POTASSIUM (BEAKER) (test code = 5.1 meq/L 3.6-5.5 379) CALCIUM, [id number] 08:02:00 Test Item Value Reference Range Interpretation Comments CALCIUM IONIZED (BEAKER) (test 1.14 mmol/L 1.12-1.27 code = 698) PH, BLOOD (BEAKER) (test code = 7.54 1810) BLOOD GAS, [id number] 08:02:00 Test Item Value Reference Range Interpretation [...] code = 1819) 100.0 % SODIUM NA-STAT [id number] 08:02:00 Test Item Value Reference Range Interpretation Comments SODIUM (BEAKER) (test code = 381) 134 meq/L 135-148 L HGB/HCT (H&H) - STAT [id number] 08:02:00 Test Item Value Reference Range Interpretation Comments HEMOGLOBIN (BEAKER) (test code = 11.2 g/dL 12.0-15.0 L 410) HEMATOCRIT (BEAKER) (test code = 33.0 % 36.0-45.0 L 411) GLUCOSE-STAT [id number] 08:01:00 Test Item Value Reference Range Interpretation Comments GLUCOSE RANDOM (BEAKER) (test code 106 mg/dL 70-110 = 652) POTASSIUM-STAT [id number] 08:01:00 Test Item Value Reference Range Interpretation Comments POTASSIUM (BEAKER) (test code = 3.8 meq/L 3.6-5.5 379) POCT-GLUCOSE [id number] 05:58:00 Test Item Value Reference Range Interpretation Comments POC-GLUCOSE METER 114 mg/dL 70-[address] [facility] 6720 (BEAKER) (test code = [place] 1538) [address] TISSUE [id number] 15:29:00Surgical Pathology Report Case: [id number] Authorizing Provider: Sabas Aquino, Collected: 07/28/2018 1410 Ordering Location: [facility] Received: 07/28/2018 1614 PERIOPERATIVE SERVICES Pathologist: Alvaro Chavez MD Specimen: Plaque, Carotid PART A RIGHT CAROTID PLAQUE, ENDARTERECTOMY:CALCIFIC ATHEROSCLEROSIS. Signing Pathologist Direct Phone Line: [phone] signed by Alvaro Chavez MD on 08/02/2018 at 3:29 [id number], 62813Cmgzevi stenosis, rightRigh t carotidA. Received in formalin labeled "carotid" a 3 x 1.3 x 1 cm foreman-pink vascular segment. Foreman-yellow and calcified plaque is identified. Meat Department Manager sections are submitted in cassette A1 following decalcification. CG/pl Performed.POCT-GLUCOSE [id number] 16:25:00 Test Item Value Reference Range Interpretation Comments POC-GLUCOSE METER 173 mg/dL 70-110 H TESTED AT [place] [address] ([facility]) (test code = [facility] 1538) [address] POCT-GLUCOSE [id number] 12:08:00 Test Item Value Reference Range Interpretation Comments POC-GLUCOSE METER 194 mg/dL 70-110 H TESTED AT [place] [address] ([facility]) (test code = [facility] 1538) [address] POCT-GLUCOSE [id number] 07:15:00 Test Item Value Reference Range Interpretation Comments POC-GLUCOSE METER 228 mg/dL 70-110 H TESTED AT [place] [address] ([facility]) (test code = [facility] 1538) [address] CBC W/PLT COUNT & AUTO [id number] 06:14:00 Test Item Value Reference Range Interpretation Comments WHITE BLOOD CELL COUNT ([facility]) 6.6 K/ L 3.5-10.5 (test code = 775) RED BLOOD CELL COUNT ([facility]) 2.53 M/ L 3.93-5.22 L (test code = 761) HEMOGLOBIN ([facility]) (test code = 9.9 GM/DL 11.2-15.7 L 410) HEMATOCRIT ([facility]) (test code = 29.3 % 34.1-44.9 L 411) MEAN CORPUSCULAR VOLUME ([facility]) 115.8 fL 79.4-94.8 H (test code = [...] PERCENT (BEAKER) (test code = 2801) CALCIUM, [id number] 05:52:00 Test Item Value Reference Range Interpretation Comments CALCIUM IONIZED (BEAKER) (test 1.24 mmol/L 1.12-1.27 code = 698) PH, BLOOD (BEAKER) (test code = 7.40 1810) POCT-GLUCOSE [id number] 22:03:00 Test Item Value Reference Range Interpretation Comments POC-GLUCOSE METER 217 mg/dL 70-[address] [facility] 6720 (BEAKER) (test code = [place] 1538) [address] POCT-GLUCOSE [id number] 17:53:00 Test Item Value Reference Range Interpretation Comments POC-GLUCOSE METER 252 mg/dL 70-[address] [facility] 6720 ([facility]) (test code = [place] 1538) [address] RAD, ABDOMEN/KUB, 1 VIEW [id number] 15:31:00Reason for exam:->nauseaFINAL REPORT EXAM: Frontal chest [...] Velazco Verified Date/Time: 07/30/2018 15:31:29 Reading Location: [facility] POCT-GLUCOSE [id number] 12:34:00 Test Item Value Reference Range Interpretation Comments POC-GLUCOSE METER 244 mg/dL 70-[address] [facility] 6720 [facility] (test code = [place] [facility] 1538) [address] POCT-GLUCOSE [id number] 09:16:00 Test Item Value Reference Range Interpretation Comments POC-GLUCOSE METER 237 mg/dL 70-[address] [facility] 6720 [facility] (test code = [place] [facility] 1538) [address] CALCIUM, [id number] 06:24:00 Test Item Value Reference Range Interpretation Comments CALCIUM IONIZED (BEAKER) (test 1.22 mmol/L 1.12-1.27 code = 698) PH, BLOOD (BEAKER) (test code = 7.39 1810) [id number] 05:34:00 Test Item Value Reference Range Interpretation Comments PHOSPHORUS (BEAKER) (test code = 2.4 mg/dL 2.3-4.7 604) [id number] 05:34:00 Test Item Value Reference Range Interpretation Comments MAGNESIUM (BEAKER) (test code = 1.5 mg/dL 1.6-2.6 L 627) BASIC METABOLIC [id number] 05:34:00 Test Item Value Reference Range Interpretation [...] PATIEN TS. CBC W/PLT COUNT & AUTO [id number] 05:27:00 Test Item Value Reference Range Interpretation [...] PERCENT (BEAKER) (test code = 2801) POCT-GLUCOSE [id number] 21:42:00 Test Item Value Reference Range Interpretation Comments POC-GLUCOSE METER 186 mg/dL 70-110 H TESTED AT [place] [address] ([facility]) (test code = [facility] 1538) [address] POCT-GLUCOSE [id number] 18:04:00 Test Item Value Reference Range Interpretation Comments POC-GLUCOSE METER 162 mg/dL 70-110 H TESTED AT [place] [address] ([facility]) (test code = [facility] 1538) [address] POCT-GLUCOSE [id number] 13:39:00 Test Item Value Reference Range Interpretation Comments POC-GLUCOSE METER 109 mg/dL 70-110 TESTED AT [place] [address] ([facility]) (test code = [facility] 1538) [address] POCT-GLUCOSE [id number] 13:39:00 Test Item Value Reference Range Interpretation Comments POC-GLUCOSE METER 169 mg/dL 70-110 H TESTED AT [place] [address] ([facility]) (test code = DAVE Borja [facility] 1538) [address] POCT-GLUCOSE [id number] 13:39:00 Test Item Value Reference Range Interpretation Comments POC-GLUCOSE METER 202 mg/dL 70-110 H TESTED AT [place] [address] ([facility]) (test code = DAVE Borja [facility] 1538) [address] POCT-GLUCOSE [id number] 12:28:00 Test Item Value Reference Range Interpretation Comments POC-GLUCOSE METER 175 mg/dL 70-110 H TESTED AT [place] [address] ([facility]) (test code = [place] [facility] 1538) [address] POCT-GLUCOSE [id number] 10:45:00 Test Item Value Reference Range Interpretation Comments POC-GLUCOSE METER 181 mg/dL 70-110 H TESTED AT [place] [address] ([facility]) (test code = DAVE Borja [facility] 1538) [address] POCT-GLUCOSE [id number] 09:08:00 Test Item Value Reference Range Interpretation Comments POC-GLUCOSE METER 90 mg/dL 70-110 TESTED AT [place] [address] ([facility]) (test code = DAVE Borja [facility] [address] 1538) POCT-GLUCOSE [id number] 09:08:00 Test Item Value Reference Range Interpretation Comments POC-GLUCOSE METER 78 mg/dL 70-110 TESTED AT [place] [address] ([facility]) [facility] [address] 1538) RAD, CHEST, 1 VIEW, NON [id number] 07:37:00Reason for exam:->POST OPShould this be performed at the bedside?->YesFINAL REPORT CLINICAL HISTORY: POST OP TECHNIQUE: 1 view of the chest. COMPARISON: 07/28/2018 IMPRESSION: There are increased bilateral airspace opacities with suspected trace bilateral pleural effusions. The cardiomediastinal silhouette is magnified by technique. Signed: Annamaria Vargas Verified Date/Time: 07/29/2018 07:37:56 Reading Location: [facility] Radiology Reading Room PHOSPHOR 2018-07-29 07:21:00 Test Item Value Reference Range Interpretation Comments PHOSPHORUS (BEAKER) (test code = 2.9 mg/dL 2.3-4.7 604) [id number] 07:21:00 Test Item Value Reference Range Interpretation Comments MAGNESIUM (BEAKER) (test code = 2.0 mg/dL 1.6-2.6 627) BASIC METABOLIC [id number] 07:21:00 Test Item Value Reference Range Interpretation [...] APPLICABLE FOR DIALYSIS PATIEN TS. BLOOD GAS, [id number] 06:00:00 Test Item Value Reference Range Interpretation [...] 44.0 % CBC W/PLT COUNT & AUTO [id number] 04:44:00 Test Item Value Reference Range Interpretation [...] (BEAKER) (test code = 2801) BLOOD GAS, [id number] 04:28:00 Test Item Value Reference Range Interpretation [...] (test code = 1819) 36.0 % CALCIUM, [id number] 04:27:00 Test Item Value Reference Range Interpretation Comments CALCIUM IONIZED (BEAKER) (test 1.22 mmol/L 1.12-1.27 code = 698) PH, BLOOD (BEAKER) (test code = 7.41 1810) POCT-GLUCOSE [id number] 01:35:00 Test Item Value Reference Range Interpretation Comments POC-GLUCOSE METER 220 mg/dL 70-110 H TESTED AT [place] [address] (BEAKER) (test code = DAVE Borja [facility] 1538) [address] POCT-GLUCOSE [id number] 01:35:00 Test Item Value Reference Range Interpretation Comments POC-GLUCOSE METER 258 mg/dL 70-110 H TESTED AT [place] [address] (BEAKER) (test code = [place] 1538) [address] POCT-GLUCOSE [id number] 01:35:00 Test Item Value Reference Range Interpretation Comments POC-GLUCOSE METER 263 mg/dL 70-110 H TESTED AT [place] [id number] (BEAKER) (test code = [place] 1538) [address] BLOOD GAS, [id number] 01:24:00 Test Item Value Reference Range Interpretation [...] code = 1819) 36.0 % SODIUM NA-STAT [id number] 01:24:00 Test Item Value Reference Range Interpretation Comments SODIUM (BEAKER) (test code = 381) 134 meq/L 135-148 L GLUCOSE-STAT [id number] 01:24:00 Test Item Value Reference Range Interpretation Comments GLUCOSE RANDOM (BEAKER) (test code 195 mg/dL 70-110 H = 652) HGB/HCT (H&H) - STAT [id number] 01:24:00 Test Item Value Reference Range Interpretation Comments HEMOGLOBIN (BEAKER) (test code = 11.8 g/dL 12.0-15.0 L 410) HEMATOCRIT (BEAKER) (test code = 35.0 % 36.0-45.0 L 411) POTASSIUM-STAT [id number] 01:22:00 Test Item Value Reference Range Interpretation Comments POTASSIUM (BEAKER) (test code = 4.9 meq/L 3.6-5.5 379) POCT-GLUCOSE [id number] 22:27:00 Test Item Value Reference Range Interpretation Comments POC-GLUCOSE METER 235 mg/dL 70-[address] [facility] 6720 (BEAKER) (test code = D[place] Bor[place] 1538) [address] LACTIC ACID, [id number] 21:01:00 Test Item Value Reference Range Interpretation Comments LACTATE BLOOD 0.9 mmol/L 0.5-2.2 Specimen sligh tly ARTERIAL (2) (BEAKER) hemoly zed (test code = 2874) [id number] 20:58:00 Test Item Value Reference Range Interpretation Comments MAGNESIUM (BEAKER) 2.4 mg/dL 1.6-2.6 Specimen slightly (test code = 627) hemolyzed BLOOD GAS, [id number] 20:23:00 Test Item Value Reference Range Interpretation [...] (test code = 1819) 26.0 % GLUCOSE-STAT [id number] 20:23:00 Test Item Value Reference Range Interpretation Comments GLUCOSE RANDOM (BEAKER) (test code 223 mg/dL 70-110 H = 652) SODIUM NA-STAT [id number] 20:21:00 Test Item Value Reference Range Interpretation Comments SODIUM (BEAKER) (test code = 381) 136 meq/L 135-148 POTASSIUM-STAT [id number] 20:21:00 Test Item Value Reference Range Interpretation Comments POTASSIUM (BEAKER) (test code = 4.1 meq/L 3.6-5.5 379) HGB/HCT (H&H) - STAT [id number] 20:21:00 Test Item Value Reference Range Interpretation Comments HEMOGLOBIN (BEAKER) (test code = 12.2 g/dL 12.0-15.0 410) HEMATOCRIT (BEAKER) (test code = 36.0 % 36.0-45.0 411) CALCIUM, [id number] 20:21:00 Test Item Value Reference Range Interpretation Comments CALCIUM IONIZED (BEAKER) (test 1.25 mmol/L 1.12-1.27 code = 698) PH, BLOOD (BEAKER) (test code = 7.34 1810) RAD, CHEST, 1 VIEW, NON [id number] 18:36:00Reason for exam:->POST OPShould this be performed [...] made to exclude other etiologies. Signed: Sarah Gonzalezeport Verified Date/Time: 07/28/2018 18:36:16 Reading Location: [address] Consult Reading Room POCT- GLUCOSE [id number] 16:38:00 Test Item Value Reference Range Interpretation Comments POC-GLUCOSE METER 215 mg/dL 70-[address] [facility] [address] (BEAKER) (test code = DAVE o[place] 1538) [id number] [id number] 15:42:00 Test Item Value Reference Range Interpretation Comments PHOSPHORUS (BEAKER) (test code = 3.5 mg/dL 2.3-4.7 604) [id number] 15:42:00 Test Item Value Reference Range Interpretation Comments MAGNESIUM (BEAKER) (test code = 1.3 mg/dL 1.6-2.6 L 627) BASIC METABOLIC [id number] 15:42:00 Test Item Value Reference Range Interpretation [...] APPLICABLE FOR DIALYSIS PATIEN TS. LACTIC ACID, [id number] 15:38:00 Test Item Value Reference Range Interpretation Comments LACTATE BLOOD 1.3 mmol/L 0.5-2.2 Specimen sligh tly ARTERIAL (2) (BEAKER) hemoly zed (test code = 2874) PT/[id number] 15:36:00 Test Item Value Reference Range Interpretation [...] mechanical heart valves.CBC W/PLT COUNT & AUTO [id number] 15:34:00 Test Item Value Reference Range Interpretation [...] PERCENT (BEAKER) (test code = 2801) GLUCOSE-STAT [id number] 15:33:00 Test Item Value Reference Range Interpretation Comments GLUCOSE RANDOM (BEAKER) (test code 231 mg/dL 70-110 H = 652) BLOOD GAS, [id number] 15:31:00 Test Item Value Reference Range Interpretation [...] code = 1819) 44.0 % SODIUM NA-STAT [id number] 15:31:00 Test Item Value Reference Range Interpretation Comments SODIUM (BEAKER) (test code = 381) 135 meq/L 135-148 POTASSIUM-STAT [id number] 15:31:00 Test Item Value Reference Range Interpretation Comments POTASSIUM (BEAKER) (test code = 4.0 meq/L 3.6-5.5 379) HGB/HCT (H&H) - STAT [id number] 15:31:00 Test Item Value Reference Range Interpretation Comments HEMOGLOBIN (BEAKER) (test code = 12.2 g/dL 12.0-15.0 410) HEMATOCRIT (BEAKER) (test code = 36.0 % 36.0-45.0 411) [id number] 08:00:00 Test Item Value Reference Range Interpretation Comments MAGNESIUM (BEAKER) (test code = 1.9 mg/dL 1.6-2.6 627) BASIC METABOLIC [id number] 08:00:00 Test Item Value Reference Range Interpretation [...] PATIEN TS. CBC W/PLT COUNT & AUTO [id number] 07:23:00 Test Item Value Reference Range Interpretation [...] PERCENT (BEAKER) (test code = 2801) HEMOGLOBIN [id number] 23:04:00 Test Item Value Reference Range Interpretation Comments HEMOGLOBIN A1C (BEAKER) (test code = 7.7 % 4.3-6.1 H 368) POCT-GLUCOSE [id number] 23:03:00 Test Item Value Reference Range Interpretation Comments POC-GLUCOSE METER 261 mg/dL 70-[address] [facility] 6720 (BEAKER) (test code = DAVE Bor[place] 1538) [address] COMPREHENSIVE METABOLIC [id number] 21:58:00 Test Item Value Reference Range Interpretation [...] PATIEN TS. CBC W/PLT COUNT & AUTO [id number] 21:33:00 Test Item Value Reference Range Interpretation [...] 0-1 PERCENT (BEAKER) (test code = 2801) [id number] 06:54:00 Test Item Value Reference Range Interpretation Comments WBC (test code = WBC) 11.1 3.7-10.4 [facility] HospitalYgimkrkSCAEEVETWH9679-95-71 06:54:00 Test Item Value Reference Range Interpretation Comments Hct (test code = Hct) 43.8 36.0-48.0 [facility] HospitalZyhoawhLZTJMEEBDM3680-18-31 06:54:00 Test Item Value Reference Range Interpretation Comments Hgb (test code = Hgb) 14.2 12.0-16.0 [facility] HospitalMgxrvibDDOEHTPVWC8650-57-00 06:54:00 Test Item Value Reference Range Interpretation Comments RBC (test code = RBC) 4.93 4.20-5.40 [facility]NzaihitSJBUHY8374-76-07 06:54:00 Test Item Value Reference Range Interpretation Comments VLDL (test code = VLDL) 28 [facility] HospitalHshmkpwPYPGZT2508-20-63 06:54:00 Test Item Value Reference Range Interpretation Comments LDL (Calculated) (test code = LDL 133 (Calculated)) [facility] HospitalVolexhfYBAWGD5626-15-31 06:54:00 Test Item Value Reference Range Interpretation Comments HDL (test code = HDL) 50 [facility] HospitalQoecvfaDVEBGB6672-70-33 06:54:00 Test Item Value Reference Range Interpretation Comments Trig (test code = Trig) 142 [facility] HospitalQepputxACUVMU5558-47-98 06:54:00 Test Item Value Reference Range Interpretation Comments CHD Risk (test code = CHD Risk) 4.22 3.90-5.80 [facility] 06:54:00 Test Item Value Reference Range Interpretation Comments Chol (test code = Chol) [address] [facility] [id number] 06:54:00 Test Item Value Reference Range Interpretation Comments Hgb A1C (test code = Hgb A1C) 9.1 [facility] HospitalTHYROID [id number] 06:54:00 Test Item Value Reference Range Interpretation Comments TSH (test code = TSH) 1.850 0.360-3.740 [facility] [id number] 06:54:00 Test Item Value Reference Range Interpretation Comments eGFR (test code = eGFR) 56 [facility] [id number] 06:54:00 Test Item Value Reference Range Interpretation Comments Bili Total (test code = Bili Total) 0.3 0.2-1.3 [facility]2015-09-03 06:54:00 Test Item Value Reference Range Interpretation Comments ALT (test code = ALT) 37 See_Comment [Auto mated message] The system which ge nerated this result transmit frank reference range : <=65. The reference range was not used to interpr et this result as aimee l/abnormal. [facility] [id number] 06:54:00 Test Item Value Reference Range Interpretation Comments AST (test code = AST) 25 See_Comment [Auto mated message] The system which ge nerated this result transmit frank reference range : <=37. The reference range was not used to interpr et this result as aimee l/abnormal. [facility] [id number] 06:54:00 Test Item Value Reference Range Interpretation Comments Alk Phos (test code = Alk Phos) 71 39-136 [facility] HospitalFFWD [id number] 06:54:00 Test Item Value Reference Range Interpretation Comments CO2 (test code = CO2) 25 24-32 [facility]2015-09-03 06:54:00 Test Item Value Reference Range Interpretation Comments Calcium Lvl (test code = Calcium Lvl) 8.8 8.5-10.5 [facility]2015-09-03 06:54:00 Test Item Value Reference Range Interpretation Comments Total Protein (test code = Total 6.8 6.4-8.4 Protein) [facility]2015-09-03 06:54:00 Test Item Value Reference Range Interpretation Comments Albumin Lvl (test code = Albumin Lvl) 3.0 3.5-5.0 [facility]2015-09-03 06:54:00 Test Item Value Reference Range Interpretation Comments Chloride Lvl (test code = Chloride Lvl) 106 95-109 [facility]2015-09-03 06:54:00 Test Item Value Reference Range Interpretation Comments Sodium Lvl (test code = Sodium Lvl) 138 135-145 [facility]2015-09-03 06:54:00 Test Item Value Reference Range Interpretation Comments Potassium Lvl (test code = Potassium 3.6 3.5-5.1 Lvl) [facility]2015-09-03 06:54:00 Test Item Value Reference Range Interpretation Comments BUN (test code = BUN) 25 7-22 [facility]2015-09-03 06:54:00 Test Item Value Reference Range Interpretation Comments Creatinine Lvl (test code = Creatinine 1.0 0.5-1.4 Lvl) [facility]2015-09-03 06:54:00 Test Item Value Reference Range Interpretation Comments Glucose Lvl (test code = Glucose Lvl) 222 70-99 [facility]2015-09-03 06:54:00 Test Item Value Reference Range Interpretation Comments A/G Ratio (test code = A/G Ratio) 0.8 0.7-1.6 [facility]2015-09-03 06:54:00 Test Item Value Reference Range Interpretation Comments AGAP (test code = AGAP) 10.6 10.0-20.0 [facility]2015-09-03 06:54:00 Test Item Value Reference Range Interpretation Comments B/C Ratio (test code = B/C Ratio) 25 6-25 [facility]2015-09-03 06:54:00 Test Item Value Reference Range Interpretation Comments Globulin (test code = Globulin) 3.8 2.0-4.0 [facility] H[id number] 06:54:00 Test Item Value Reference Range Interpretation Comments Lymphocytes # (test code = Lymphocytes 3.5 1.0-5.5 #) [facility] HospitalPiyxakbWIXNVGXUML6001-80-15 06:54:00 Test Item Value Reference Range Interpretation Comments Monocytes # (test code 1.5 See_Comment [Aut omated message] The = Monocytes #) system which generated this result tra nsmitted reference range : <=0.8. The reference r chanelle was not used to int erpret this result as normal/abnormal . [facility] HospitalAzwqzqfIOWYZYAUXS7541-49-03 06:54:00 Test Item Value Reference Range Interpretation Comments Eosinophils # (test code 0.2 See_Comment [A utomated message] The = Eosinophils #) system whic h generated this result tra nsmitted reference range : <=0.5. The reference r chanelle was not used to int erpret this result as normal/abnormal . [facility] HospitalXnzadvqPWDQCXOCRA5288-13-16 06:54:00 Test Item Value Reference Range Interpretation Comments Basophils # (test code 0.1 See_Comment [Aut omated message] The = Basophils #) system which generated this result tra nsmitted reference range : <=0.2. The reference r chanelle was not used to int erpret this result as normal/abnormal . [facility] HospitalHyvbkkdSZOTVEHSVQ0637-49-75 06:54:00 Test Item Value Reference Range Interpretation Comments Segs-Bands # (test code = Segs-Bands #) 5.9 1.5-8.1 [facility] HospitalJraephnQGSKQEKFMS5818-37-05 06:54:00 Test Item Value Reference Range Interpretation Comments Lymphocytes (test code = Lymphocytes) 31.4 20.0-40.0 [facility] HospitalWglljtmRIFYBDUZYG1856-04-71 06:54:00 Test Item Value Reference Range Interpretation Comments Basophils (test code = 0.7 See_Comment [Aut omated message] The Basophils) system which ge nerated this result tra nsmitted reference range : <=1.0. The reference r chanelle was not used to int erpret this result as normal/abnormal . [facility] HospitalKjssctwRAHYQYROIO6628-24-28 06:54:00 Test Item Value Reference Range Interpretation Comments Monocytes (test code = Monocytes) 13.2 2.0-12.0 [facility] HospitalMoqcfniVCMBSYGMFY0314-61-56 06:54:00 Test Item Value Reference Range Interpretation Comments Segs (test code = Segs) 53.0 45.0-75.0 [facility] HospitalWrboasyHTTKEFPOTK4420-41-03 06:54:00 Test Item Value Reference Range Interpretation Comments Eosinophils (test code = 1.7 See_Comment [A utomated message] The Eosinophils) system which ge nerated this result tra nsmitted reference range : <=4.0. The reference r chanelle was not used to int erpret this result as normal/abnormal . [facility] HospitalZravblxGTNFSTOWHN5280-09-11 06:54:00 Test Item Value Reference Range Interpretation Comments MPV (test code = MPV) 9.5 7.4-10.4 [facility] HospitalOlrsjavHSSNOHBADT7921-15-64 06:54:00 Test Item Value Reference Range Interpretation Comments Platelet (test code = Platelet) 447 133-450 [facility] HospitalHyaigxeQHWVWAKJTR8788-10-28 06:54:00 Test Item Value Reference Range Interpretation Comments MCHC (test code = MCHC) 32.5 32.0-36.0 [facility] HospitalNherwmoROICRQQIPV2780-49-95 06:54:00 Test Item Value Reference Range Interpretation Comments RDW (test code = RDW) 14.9 11.5-14.5 [facility] HospitalGcificdTOJWUKGMPJ5334-37-11 06:54:00 Test Item Value Reference Range Interpretation Comments MCV (test code = MCV) 88.9 80.0-98.0 [facility] HospitalOobinylBDYIESLUVC2157-46-66 06:54:00 Test Item Value Reference Range Interpretation Comments MCH (test code = MCH) 28.9 pg 27.0-31.0 [facility]2015-09-03 06:54:00 Test Item Value Reference Range Interpretation Comments eGFR (test code = eGFR) 56 [facility]2015-09-03 06:54:00 Test Item Value Reference Range Interpretation Comments Bili Total (test code = Bili Total) 0.3 0.2-1.3 [facility]2015-09-03 06:54:00 Test Item Value Reference Range Interpretation Comments ALT (test code = ALT) 37 See_Comment [Auto mated message] The system which ge nerated this result transmit frank reference range : <=65. The reference range was not used to interpr et this result as aimee l/abnormal. [facility]FF[facility] [id number] 06:54:00 Test Item Value Reference Range Interpretation Comments AST (test code = AST) 25 See_Comment [Auto mated message] The system which ge nerated this result transmit frank reference range : <=37. The reference range was not used to interpr et this result as aimee l/abnormal. [facility]2015-09-03 06:54:00 Test Item Value Reference Range Interpretation Comments Alk Phos (test code = Alk Phos) 71 39-136 [facility]2015-09-03 06:54:00 Test Item Value Reference Range Interpretation Comments CO2 (test code = CO2) 25 24-32 [facility]2015-09-03 06:54:00 Test Item Value Reference Range Interpretation Comments Calcium Lvl (test code = Calcium Lvl) 8.8 8.5-10.5 [facility]2015-09-03 06:54:00 Test Item Value Reference Range Interpretation Comments Total Protein (test code = Total 6.8 6.4-8.4 Protein) [facility]2015-09-03 06:54:00 Test Item Value Reference Range Interpretation Comments Albumin Lvl (test code = Albumin Lvl) 3.0 3.5-5.0 [facility]2015-09-03 06:54:00 Test Item Value Reference Range Interpretation Comments Chloride Lvl (test code = Chloride Lvl) 106 95-109 [facility]2015-09-03 06:54:00 Test Item Value Reference Range Interpretation Comments Sodium Lvl (test code = Sodium Lvl) 138 135-145 [facility]2015-09-03 06:54:00 Test Item Value Reference Range Interpretation Comments Potassium Lvl (test code = Potassium 3.6 3.5-5.1 Lvl) [facility]2015-09-03 06:54:00 Test Item Value Reference Range Interpretation Comments BUN (test code = BUN) 25 7-22 [facility]2015-09-03 06:54:00 Test Item Value Reference Range Interpretation Comments Creatinine Lvl (test code = Creatinine 1.0 0.5-1.4 Lvl) [facility]2015-09-03 06:54:00 Test Item Value Reference Range Interpretation Comments Glucose Lvl (test code = Glucose Lvl) 222 70-99 [facility]2015-09-03 06:54:00 Test Item Value Reference Range Interpretation Comments A/G Ratio (test code = A/G Ratio) 0.8 0.7-1.6 [facility]2015-09-03 06:54:00 Test Item Value Reference Range Interpretation Comments AGAP (test code = AGAP) 10.6 10.0-20.0 [facility]2015-09-03 06:54:00 Test Item Value Reference Range Interpretation Comments B/C Ratio (test code = B/C Ratio) 25 6-25 [facility]2015-09-03 06:54:00 Test Item Value Reference Range Interpretation Comments Globulin (test code = Globulin) 3.8 2.0-4.0 [facility] HospitalFfauksjBGKDSIXPMP7891-88-71 06:54:00 Test Item Value Reference Range Interpretation Comments Lymphocytes # (test code = Lymphocytes 3.5 1.0-5.5 #) [facility] HospitalIresxaiKJDODOFJMG8982-96-66 06:54:00 Test Item Value Reference Range Interpretation Comments Monocytes # (test code 1.5 See_Comment [Aut omated message] The = Monocytes #) system which generated this result tra nsmitted reference range : <=0.8. The reference r chanelle was not used to int erpret this result as normal/abnormal . [facility] HospitalZubqbcmLSQZCVNTDI6677-08-29 06:54:00 Test Item Value Reference Range Interpretation Comments Eosinophils # (test code 0.2 See_Comment [A utomated message] The = Eosinophils #) system whic h generated this result tra nsmitted reference range : <=0.5. The reference r chanelle was not used to int erpret this result as normal/abnormal . [facility] HospitalIwhnfrcIPTFRXMTMC1562-29-51 06:54:00 Test Item Value Reference Range Interpretation Comments Basophils # (test code 0.1 See_Comment [Aut omated message] The = Basophils #) system which generated this result tra nsmitted reference range : <=0.2. The reference r chanelle was not used to int erpret this result as normal/abnormal . [facility] HospitalPnqcegrEATNCQNJQX6636-04-34 06:54:00 Test Item Value Reference Range Interpretation Comments Segs-Bands # (test code = Segs-Bands #) 5.9 1.5-8.1 [facility] HospitalYlrnfnkMVOUXVMXBP3493-74-77 06:54:00 Test Item Value Reference Range Interpretation Comments Lymphocytes (test code = Lymphocytes) 31.4 20.0-40.0 [facility] HospitalWapljncJAMTEELKJN3519-50-81 06:54:00 Test Item Value Reference Range Interpretation Comments Basophils (test code = 0.7 See_Comment [Aut omated message] The Basophils) system which ge nerated this result tra nsmitted reference range : <=1.0. The reference r chanelle was not used to int erpret this result as normal/abnormal . [facility] HospitalZbaljfaHYONHUNNRR6302-17-79 06:54:00 Test Item Value Reference Range Interpretation Comments Monocytes (test code = Monocytes) 13.2 2.0-12.0 [facility] HospitalMybgcmfZXZXMWAAIO9205-47-50 06:54:00 Test Item Value Reference Range Interpretation Comments Segs (test code = Segs) 53.0 45.0-75.0 [facility] HospitalGkndqigDTTCPGAEMI0371-60-41 06:54:00 Test Item Value Reference Range Interpretation Comments Eosinophils (test code = 1.7 See_Comment [A utomated message] The Eosinophils) system which ge nerated this result tra nsmitted reference range : <=4.0. The reference r chanelle was not used to int erpret this result as normal/abnormal . [facility] HospitalUmbbxcqAEQDJLEYCZ2672-95-18 06:54:00 Test Item Value Reference Range Interpretation Comments MPV (test code = MPV) 9.5 7.4-10.4 [facility] HospitalAualiudLYLEEYXQTP8971-42-53 06:54:00 Test Item Value Reference Range Interpretation Comments Platelet (test code = Platelet) 447 133-450 [facility] HospitalIkkjsqlKERMMGUGIR8556-21-29 06:54:00 Test Item Value Reference Range Interpretation Comments MCHC (test code = MCHC) 32.5 32.0-36.0 [facility] HospitalSulhqyhIPDLMKZJYG0733-22-68 06:54:00 Test Item Value Reference Range Interpretation Comments RDW (test code = RDW) 14.9 11.5-14.5 [facility] HospitalEuoecuvBFUMNQFMXV4954-36-55 06:54:00 Test Item Value Reference Range Interpretation Comments MCV (test code = MCV) 88.9 80.0-98.0 [facility] HospitalEmrdjrsJHQCNNANNE2640-40-95 06:54:00 Test Item Value Reference Range Interpretation Comments MCH (test code = MCH) 28.9 pg 27.0-31.0 [facility] HospitalPzbsoioQVVLWFTMSI1205-17-36 06:54:00 Test Item Value Reference Range Interpretation Comments WBC (test code = WBC) 11.1 3.7-10.4 [facility]VbnpdkrWNXJZRVFFC8133-05-90 06:54:00 Test Item Value Reference Range Interpretation Comments Hct (test code = Hct) 43.8 36.0-48.0 [facility] HospitalOfpzzkqNWRCUDUQZC7781-12-44 06:54:00 Test Item Value Reference Range Interpretation Comments Hgb (test code = Hgb) 14.2 12.0-16.0 [facility] HospitalGletjozMCBFJQMCCF4058-51-23 06:54:00 Test Item Value Reference Range Interpretation Comments RBC (test code = RBC) 4.93 4.20-5.40 [facility] HospitalYkgtubhXTXAQL3751-09-70 06:54:00 Test Item Value Reference Range Interpretation Comments VLDL (test code = VLDL) 28 [facility] HospitalXxrzvimSTGSFY0406-01-35 06:54:00 Test Item Value Reference Range Interpretation Comments LDL (Calculated) (test code = LDL 133 (Calculated)) [facility] HospitalOcxlnroXGRRWE5210-02-78 06:54:00 Test Item Value Reference Range Interpretation Comments HDL (test code = HDL) 50 [facility] HospitalFkblczeLXOXZS4350-62-93 06:54:00 Test Item Value Reference Range Interpretation Comments Trig (test code = Trig) 142 [facility] HospitalJfjvczjNXGQHE1679-80-86 06:54:00 Test Item Value Reference Range Interpretation Comments CHD Risk (test code = CHD Risk) 4.22 3.90-5.80 [facility] HospitalJkwjnoyHXNPCH8745-73-67 06:54:00 Test Item Value Reference Range Interpretation Comments Chol (test code = Chol) [address] [facility] [facility] YBLUHUFHR4809-13-65 06:54:00 Test Item Value Reference Range Interpretation Comments Hgb A1C (test code = Hgb A1C) 9.1 [facility] HospitalTHYROID IBPIK6364-82-98 06:54:00 Test Item Value Reference Range Interpretation Comments TSH (test code = TSH) 1.850 0.360-3.740 [facility] HospitalCHEM EOGYN6428-21-75 06:54:00 Test Item Value Reference Range Interpretation Comments eGFR (test code = eGFR) 56 [facility] HospitalCHEM GZARM6499-26-90 06:54:00 Test Item Value Reference Range Interpretation Comments Bili Total (test code = Bili Total) 0.3 0.2-1.3 [facility]2015-09-03 06:54:00 Test Item Value Reference Range Interpretation Comments ALT (test code = ALT) 37 See_Comment [Auto mated message] The system which ge nerated this result transmit frank reference range : <=65. The reference range was not used to interpr et this result as aimee l/abnormal. [facility]2015-09-03 06:54:00 Test Item Value Reference Range Interpretation Comments AST (test code = AST) 25 See_Comment [Auto mated message] The system which ge nerated this result transmit frank reference range : <=37. The reference range was not used to interpr et this result as aimee l/abnormal. [facility]2015-09-03 06:54:00 Test Item Value Reference Range Interpretation Comments Alk Phos (test code = Alk Phos) 71 39-136 [facility]2015-09-03 06:54:00 Test Item Value Reference Range Interpretation Comments CO2 (test code = CO2) 25 24-32 [facility]2015-09-03 06:54:00 Test Item Value Reference Range Interpretation Comments Calcium Lvl (test code = Calcium Lvl) 8.8 8.5-10.5 [facility]2015-09-03 06:54:00 Test Item Value Reference Range Interpretation Comments Total Protein (test code = Total 6.8 6.4-8.4 Protein) [facility]2015-09-03 06:54:00 Test Item Value Reference Range Interpretation Comments Albumin Lvl (test code = Albumin Lvl) 3.0 3.5-5.0 [facility]2015-09-03 06:54:00 Test Item Value Reference Range Interpretation Comments Chloride Lvl (test code = Chloride Lvl) 106 95-109 [facility]2015-09-03 06:54:00 Test Item Value Reference Range Interpretation Comments Sodium Lvl (test code = Sodium Lvl) 138 135-145 [place] 722845-09-03 06:54:00 Test Item Value Reference Range Interpretation Comments Potassium Lvl (test code = Potassium 3.6 3.5-5.1 Lvl) [facility]2015-09-03 06:54:00 Test Item Value Reference Range Interpretation Comments BUN (test code = BUN) 25 7-22 [facility]2015-09-03 06:54:00 Test Item Value Reference Range Interpretation Comments Creatinine Lvl (test code = Creatinine 1.0 0.5-1.4 Lvl) [facility]2015-09-03 06:54:00 Test Item Value Reference Range Interpretation Comments Glucose Lvl (test code = Glucose Lvl) 222 70-99 [facility]2015-09-03 06:54:00 Test Item Value Reference Range Interpretation Comments A/G Ratio (test code = A/G Ratio) 0.8 0.7-1.6 [facility]2015-09-03 06:54:00 Test Item Value Reference Range Interpretation Comments AGAP (test code = AGAP) 10.6 10.0-20.0 [facility]2015-09-03 06:54:00 Test Item Value Reference Range Interpretation Comments B/C Ratio (test code = B/C Ratio) 25 6-25 [facility]2015-09-03 06:54:00 Test Item Value Reference Range Interpretation Comments Globulin (test code = Globulin) 3.8 2.0-4.0 [facility] HospitalWfyllcmENJYNZYIAI9504-91-84 06:54:00 Test Item Value Reference Range Interpretation Comments Lymphocytes # (test code = Lymphocytes 3.5 1.0-5.5 #) [facility] HospitalIhjxspfPRFCWNQTSQ7208-45-40 06:54:00 Test Item Value Reference Range Interpretation Comments Monocytes # (test code 1.5 See_Comment [Aut omated message] The = Monocytes #) system which generated this result tra nsmitted reference range : <=0.8. The reference r chanelle was not used to int erpret this result as normal/abnormal . [facility] HospitalFkgmeaxHVTHFNXVQT3790-14-64 06:54:00 Test Item Value Reference Range Interpretation Comments Eosinophils # (test code 0.2 See_Comment [A utomated message] The = Eosinophils #) system whic h generated this result tra nsmitted reference range : <=0.5. The reference r chanelle was not used to int erpret this result as normal/abnormal . [facility] HospitalJvoeigkHUWYBZMXZY8382-52-42 06:54:00 Test Item Value Reference Range Interpretation Comments Basophils # (test code 0.1 See_Comment [Aut omated message] The = Basophils #) system which generated this result tra nsmitted reference range : <=0.2. The reference r chanelle was not used to int erpret this result as normal/abnormal . [facility] HospitalSzjadryJMNHSMKQJJ6809-82-19 06:54:00 Test Item Value Reference Range Interpretation Comments Segs-Bands # (test code = Segs-Bands #) 5.9 1.5-8.1 [facility] HospitalQqjkuuwAGPKPAIHNU2683-11-57 06:54:00 Test Item Value Reference Range Interpretation Comments Lymphocytes (test code = Lymphocytes) 31.4 20.0-40.0 [facility] HospitalTumjpdgUBHQPUGLQO5300-05-83 06:54:00 Test Item Value Reference Range Interpretation Comments Basophils (test code = 0.7 See_Comment [Aut omated message] The Basophils) system which ge nerated this result tra nsmitted reference range : <=1.0. The reference r chanelle was not used to int erpret this result as normal/abnormal . [facility] HospitalCjnluekGTMGRUCSTW5089-79-74 06:54:00 Test Item Value Reference Range Interpretation Comments Monocytes (test code = Monocytes) 13.2 2.0-12.0 [facility] HospitalEkhonwmHJKCTXJRLR9063-31-91 06:54:00 Test Item Value Reference Range Interpretation Comments Segs (test code = Segs) 53.0 45.0-75.0 [facility] HospitalHupvqpbTVVAHUNOOM2331-49-54 06:54:00 Test Item Value Reference Range Interpretation Comments Eosinophils (test code = 1.7 See_Comment [A utomated message] The Eosinophils) system which ge nerated this result tra nsmitted reference range : <=4.0. The reference r chanelle was not used to int erpret this result as normal/abnormal . [facility] HospitalBpahnsgFITPSHDMNE4207-21-93 06:54:00 Test Item Value Reference Range Interpretation Comments MPV (test code = MPV) 9.5 7.4-10.4 [facility] HospitalYpcajnmPXWKTFAPSM4812-68-85 06:54:00 Test Item Value Reference Range Interpretation Comments Platelet (test code = Platelet) 447 133-450 [facility] HospitalYwnswxpIVXGIKFYDR4314-92-37 06:54:00 Test Item Value Reference Range Interpretation Comments MCHC (test code = MCHC) 32.5 32.0-36.0 [facility] HospitalRzhwucuFHGOFDWCWE4861-58-32 06:54:00 Test Item Value Reference Range Interpretation Comments RDW (test code = RDW) 14.9 11.5-14.5 [facility] HospitalOpsarguGKGUFNSGZY2669-74-21 06:54:00 Test Item Value Reference Range Interpretation Comments MCV (test code = MCV) 88.9 80.0-98.0 [facility] HospitalGtdvafwGPUQKFQGSI8028-73-48 06:54:00 Test Item Value Reference Range Interpretation Comments MCH (test code = MCH) 28.9 pg 27.0-31.0 [facility] HospitalCwvirevXJADVENDJF6241-39-77 06:54:00 Test Item Value Reference Range Interpretation Comments WBC (test code = WBC) 11.1 3.7-10.4 [facility] HospitalZilbvifTQWLKNAEPL9087-12-17 06:54:00 Test Item Value Reference Range Interpretation Comments Hct (test code = Hct) 43.8 36.0-48.0 [facility] HospitalHsqrjbwILFMGWIDUD9676-04-06 06:54:00 Test Item Value Reference Range Interpretation Comments Hgb (test code = Hgb) 14.2 12.0-16.0 [facility] HospitalAvwnmmgGKFPHYRZHY3438-57-44 06:54:00 Test Item Value Reference Range Interpretation Comments RBC (test code = RBC) 4.93 4.20-5.40 [facility]soxoscIPODNF5395[facility]57-[facility] 06:54:00 Test Item Value Reference Range Interpretation Comments VLDL (test code = VLDL) 28 [facility]TlmuyfgZOQOWD1973-66-88 06:54:00 Test Item Value Reference Range Interpretation Comments LDL (Calculated) (test code = LDL 133 (Calculated)) [facility]PcwdqifGWENTX6855-52-90 06:54:00 Test Item Value Reference Range Interpretation Comments HDL (test code = HDL) 50 [facility] HospitalNmusbppROJOGX2063-61-15 06:54:00 Test Item Value Reference Range Interpretation Comments Trig (test code = Trig) 142 [facility]FxxgvmlSPVZLQ3177-79-14 06:54:00 Test Item Value Reference Range Interpretation Comments CHD Risk (test code = CHD Risk) 4.22 3.90-5.80 [facility]EwmevmpZSQUZB6640-80-03 06:54:00 Test Item Value Reference Range Interpretation Comments Chol (test code = Chol) 211 [facility] TZLQCYWER3444-68-47 06:54:00 Test Item Value Reference Range Interpretation Comments Hgb A1C (test code = Hgb A1C) 9.1 [facility] HospitalTHYROID TPCJB2363-21-03 06:54:00 Test Item Value Reference Range Interpretation Comments TSH (test code = TSH) 1.850 0.360-3.740 [facility] HospitalCARDIAC MYGLHAW9055-97-61 21:20:00 Test Item Value Reference Range Interpretation Comments Total CK (test code = Total CK) 75 12-191 [facility] HospitalAxisRoomsAC PAGGBNQ0064-23-82 21:20:00 Test Item Value Reference Range Interpretation Comments Troponin-I (test code 0.05 See_Comment [Auto mated message] The = Troponin-I) system which g enerated this result transmit frank reference range : <=0.40. The reference r chanelle was not used to interpr et this result as aimee l/abnormal. [facility] CenterCARSummitourAC CMNZYQJ0143-73-14 21:20:00 Test Item Value Reference Range Interpretation Comments CK MB (test code = CK MB) 1.0 0.5-3.6 [facility] HospitalCARAC WTZNCDP7791-53-59 21:20:00 Test Item Value Reference Range Interpretation Comments CK MB Index (test 1.3 See_Comment [Automate d message] The code = CK MB Index) system w [facility] generated this result transmit frank reference range : <=2.5. The reference range was not used to interpr et this result as aimee l/abnormal. [facility] [employer] [id number] 21:20:00 Test Item Value Reference Range Interpretation Comments eGFR (test code = eGFR) 42 [facility] CampusAkermin [id number] 21:20:00 Test Item Value Reference Range Interpretation Comments Creatinine Lvl (test code = Creatinine 1.0 0.5-1.4 Lvl) [facility] CampusAkermin EQUPC8390-23-23 21:20:00 Test Item Value Reference Range Interpretation Comments BUN (test code = BUN) 30 7-22 [facility] CampusAk[facility] [id number] 21:20:00 Test Item Value Reference Range Interpretation Comments Glucose Lvl (test code = Glucose Lvl) 187 70-99 [facility] CampusAk[facility] ESPMU6150-22-24 21:20:00 Test Item Value Reference Range Interpretation Comments CO2 (test code = CO2) 23 24-32 [facility]2015-09-02 21:20:00 Test Item Value Reference Range Interpretation Comments Sodium Lvl (test code = Sodium Lvl) 135 135-145 [facility]2015-09-02 21:20:00 Test Item Value Reference Range Interpretation Comments Chloride Lvl (test code = Chloride Lvl) 103 95-109 [facility]2015-09-02 21:20:00 Test Item Value Reference Range Interpretation Comments Potassium Lvl (test code = Potassium 4.6 3.5-5.1 Lvl) [facility]2015-09-02 21:20:00 Test Item Value Reference Range Interpretation Comments Calcium Lvl (test code = Calcium Lvl) 9.6 8.5-10.5 [facility]2015-09-02 21:20:00 Test Item Value Reference Range Interpretation Comments AGAP (test code = AGAP) 13.6 10.0-20.0 [facility] HospitalMnyomgeEQOSMNUEOZ3042-99-44 21:20:00 Test Item Value Reference Range Interpretation Comments PTT (test code = PTT) 24.4 s 22.9-35.8 [facility] HospitalZzuybefJCIXKVKEVT4943-44-15 21:20:00 Test Item Value Reference Range Interpretation Comments INR (test code = INR) 0.93 0.85-1.17 [facility] HospitalDyzwvaoCQORXMLRME6593-50-33 21:20:00 Test Item Value Reference Range Interpretation Comments PT (test code = PT) 12.8 s 12.0-14.7 [facility] HospitalCscxlurMIXNVROCNC8335-67-08 21:20:00 Test Item Value Reference Range Interpretation Comments MCH (test code = MCH) 28.9 pg 27.0-31.0 [facility] HospitalRqonkyyKDLVTZGOPT9009-80-53 21:20:00 Test Item Value Reference Range Interpretation Comments MCV (test code = MCV) 88.6 80.0-98.0 [facility] HospitalEcdeznqTUVDJSSZOG7098-28-21 21:20:00 Test Item Value Reference Range Interpretation Comments Hct (test code = Hct) 46.4 36.0-48.0 [facility] HospitalMgiizzfGYPMWTGUVR4896-30-47 21:20:00 Test Item Value Reference Range Interpretation Comments MCHC (test code = MCHC) 32.7 32.0-36.0 [facility] HospitalVpvoavgPEQGSJHLOU9691-99-31 21:20:00 Test Item Value Reference Range Interpretation Comments Hgb (test code = Hgb) 15.2 12.0-16.0 [facility] HospitalWnktrxbDLDJJUFQMU5958-30-82 21:20:00 Test Item Value Reference Range Interpretation Comments Platelet (test code = Platelet) 451 133-450 [facility] HospitalUyyofsoQXZJDNMBPZ4294-74-83 21:20:00 Test Item Value Reference Range Interpretation Comments RDW (test code = RDW) 14.7 11.5-14.5 [facility] HospitalLsjimmyWLQUHOQZCQ8902-87-33 21:20:00 Test Item Value Reference Range Interpretation Comments MPV (test code = MPV) 9.2 7.4-10.4 [facility] HospitalUurkuvgWGTDKKBWHW2729-11-87 21:20:00 Test Item Value Reference Range Interpretation Comments WBC (test code = WBC) 13.3 3.7-10.4 [facility] HospitalSwyuenzOEWXCDXBOY0917-23-50 21:20:00 Test Item Value Reference Range Interpretation Comments RBC (test code = RBC) 5.24 4.20-5.40 [facility] HospitalRilxyizLEMQJPUYRY1197-59-13 21:20:00 Test Item Value Reference Range Interpretation Comments Monocytes # (test code 1.6 See_Comment [Aut omated message] The = Monocytes #) system which generated this result tra nsmitted reference range : <=0.8. The reference r chanelle was not used to int erpret this result as normal/abnormal . [facility] HospitalGjnsspzSCMHFISXZV3221-71-88 21:20:00 Test Item Value Reference Range Interpretation Comments Lymphocytes # (test code = Lymphocytes 2.1 1.0-5.5 #) [facility] HospitalHdokronUCFUBGIUDO8018-84-41 21:20:00 Test Item Value Reference Range Interpretation Comments Segs-Bands # (test code = Segs-Bands #) 9.4 1.5-8.1 [facility] HospitalXyrgcrqVIJAAMCQJY5207-97-04 21:20:00 Test Item Value Reference Range Interpretation Comments Basophils (test code = 0.8 See_Comment [Aut omated message] The Basophils) system which ge nerated this result tra nsmitted reference range : <=1.0. The reference r chanelle was not used to int erpret this result as normal/abnormal . [place]2545-09-02 21:20:00 Test Item Value Reference Range Interpretation Comments Eosinophils (test code = 0.8 See_Comment [A utomated message] The Eosinophils) system which ge nerated this result tra nsmitted reference range : <=4.0. The reference r chanelle was not used to int erpret this result as normal/abnormal . [facility] HospitalMasrkeuQKIWICIFEQ4005-17-20 21:20:00 Test Item Value Reference Range Interpretation Comments Basophils # (test code 0.1 See_Comment [Aut omated message] The = Basophils #) system which generated this result tra nsmitted reference range : <=0.2. The reference r chanelle was not used to int erpret this result as normal/abnormal . [facility] HospitalMcisgvmDWWYYXVNQI0378-49-71 21:20:00 Test Item Value Reference Range Interpretation Comments Eosinophils # (test code 0.1 See_Comment [A utomated message] The = Eosinophils #) system whic h generated this result tra nsmitted reference range : <=0.5. The reference r chanelle was not used to int erpret this result as normal/abnormal . [facility] CampusMejfpevWQIKTSREQG6814-76-22 21:20:00 Test Item Value Reference Range Interpretation Comments Monocytes (test code = Monocytes) 12.0 2.0-12.0 [facility] CampusUqiazvnHNEDDDJCEN5942-60-38 21:20:00 Test Item Value Reference Range Interpretation Comments Lymphocytes (test code = Lymphocytes) 15.7 20.0-40.0 [facility] CampusNaorbtcCCIPTEDLIW6442-33-86 21:20:00 Test Item Value Reference Range Interpretation Comments Segs (test code = Segs) 70.7 45.0-75.0 [facility] 21:20:00 Test Item Value Reference Range Interpretation Comments Total CK (test code = Total CK) 75 12-191 [facility] HospitalMd7SMDAVKY2754-69-81 21:20:00 Test Item Value Reference Range Interpretation Comments Troponin-I (test code 0.05 See_Comment [Auto mated message] The = Troponin-I) system which g enerated this result transmit frank reference range : <=0.40. The reference r chanelle was not used to interpr et this result as aimee l/abnormal. [facility] 21:20:00 Test Item Value Reference Range Interpretation Comments CK MB (test code = CK MB) 1.0 0.5-3.6 [facility] RLNIHWD5486-17-96 21:20:00 Test Item Value Reference Range Interpretation Comments CK MB Index (test 1.3 See_Comment [Automate d message] The code = CK MB Index) system w [employer] generated this result transmit frank reference range : <=2.5. The reference range was not used to interpr et this result as aimee l/abnormal. [facility] HospitalFFWD KSOLV2327-73-22 21:20:00 Test Item Value Reference Range Interpretation Comments eGFR (test code = eGFR) 42 [facility]2015-09-02 21:20:00 Test Item Value Reference Range Interpretation Comments Creatinine Lvl (test code = Creatinine 1.0 0.5-1.4 Lvl) [facility]2015-09-02 21:20:00 Test Item Value Reference Range Interpretation Comments BUN (test code = BUN) 30 7-22 [facility] HospitalFFWD SRSPE9638-20-04 21:20:00 Test Item Value Reference Range Interpretation Comments Glucose Lvl (test code = Glucose Lvl) 187 70-99 [facility] HospitalFFWD VHMYC3505-16-43 21:20:00 Test Item Value Reference Range Interpretation Comments CO2 (test code = CO2) 23 24-32 [facility]2015-09-02 21:20:00 Test Item Value Reference Range Interpretation Comments Sodium Lvl (test code = Sodium Lvl) 135 135-145 [facility]Ak[facility] VXQJI4889-71-09 21:20:00 Test Item Value Reference Range Interpretation Comments Chloride Lvl (test code = Chloride Lvl) 103 95-109 [facility] HospitalFFWD YHPJX2534-72-50 21:20:00 Test Item Value Reference Range Interpretation Comments Potassium Lvl (test code = Potassium 4.6 3.5-5.1 Lvl) [facility]2015-09-02 21:20:00 Test Item Value Reference Range Interpretation Comments Calcium Lvl (test code = Calcium Lvl) 9.6 8.5-10.5 [facility] HospitalFFWD [id number] 21:20:00 Test Item Value Reference Range Interpretation Comments AGAP (test code = AGAP) 13.6 10.0-20.0 [facility] HospitalDzzurozPERUILXJAB1807-52-06 21:20:00 Test Item Value Reference Range Interpretation Comments PTT (test code = PTT) 24.4 s 22.9-35.8 [facility] HospitalWwhjiisVARSJERLPZ4703-92-54 21:20:00 Test Item Value Reference Range Interpretation Comments INR (test code = INR) 0.93 0.85-1.17 [facility] HospitalVuctmieVRMLKXLVGB2713-97-79 21:20:00 Test Item Value Reference Range Interpretation Comments PT (test code = PT) 12.8 s 12.0-14.7 [facility] HospitalJnlbyonUYXLXFKTNV1407-78-75 21:20:00 Test Item Value Reference Range Interpretation Comments MCH (test code = MCH) 28.9 pg 27.0-31.0 [facility] HospitalYhvaaanPWMTGXUDZK4251-30-28 21:20:00 Test Item Value Reference Range Interpretation Comments MCV (test code = MCV) 88.6 80.0-98.0 [facility] HospitalWckeymjLKVEKOYFMV3269-97-07 21:20:00 Test Item Value Reference Range Interpretation Comments Hct (test code = Hct) 46.4 36.0-48.0 [facility] HospitalFhbtilcUJVSJJFYVI0194-95-69 21:20:00 Test Item Value Reference Range Interpretation Comments MCHC (test code = MCHC) 32.7 32.0-36.0 [facility] HospitalFvyybdjGQFMORCXLM0896-84-41 21:20:00 Test Item Value Reference Range Interpretation Comments Hgb (test code = Hgb) 15.2 12.0-16.0 [facility] HospitalBbwkomaTWJGVRKNUF5074-25-67 21:20:00 Test Item Value Reference Range Interpretation Comments Platelet (test code = Platelet) 451 133-450 [facility] HospitalDmsjrbdPJJKMZQGLX1546-83-55 21:20:00 Test Item Value Reference Range Interpretation Comments RDW (test code = RDW) 14.7 11.5-14.5 [facility] HospitalUzbfuczXPTXLKUMYQ2057-87-37 21:20:00 Test Item Value Reference Range Interpretation Comments MPV (test code = MPV) 9.2 7.4-10.4 [facility] HospitalGpgpitiDZLXOGJWVQ9109-78-15 21:20:00 Test Item Value Reference Range Interpretation Comments WBC (test code = WBC) 13.3 3.7-10.4 [facility] HospitalBsxvbzqSFTCOGMZJK1443-92-77 21:20:00 Test Item Value Reference Range Interpretation Comments RBC (test code = RBC) 5.24 4.20-5.40 [facility] HospitalKgxpxcdVKYLYFXITO3995-79-98 21:20:00 Test Item Value Reference Range Interpretation Comments Monocytes # (test code 1.6 See_Comment [Aut omated message] The = Monocytes #) system which generated this result tra nsmitted reference range : <=0.8. The reference r chanelle was not used to int erpret this result as normal/abnormal . [facility] HospitalUuuieukKONHUPPLJZ8254-12-06 21:20:00 Test Item Value Reference Range Interpretation Comments Lymphocytes # (test code = Lymphocytes 2.1 1.0-5.5 #) [facility] HospitalAvwkmduOAJFVSASJW3849-16-22 21:20:00 Test Item Value Reference Range Interpretation Comments Segs-Bands # (test code = Segs-Bands #) 9.4 1.5-8.1 [facility] HospitalZmwmpnoXGHYAOIIZE7401-80-56 21:20:00 Test Item Value Reference Range Interpretation Comments Basophils (test code = 0.8 See_Comment [Aut omated message] The Basophils) system which ge nerated this result tra nsmitted reference range : <=1.0. The reference r chanelle was not used to int erpret this result as normal/abnormal . [facility] HospitalCzvsettFPVFJOUIBV7853-15-88 21:20:00 Test Item Value Reference Range Interpretation Comments Eosinophils (test code = 0.8 See_Comment [A utomated message] The Eosinophils) system which ge nerated this result tra nsmitted reference range : <=4.0. The reference r chanelle was not used to int erpret this result as normal/abnormal . [facility] HospitalDnftnxlLQYOMSSSEY5276-40-39 21:20:00 Test Item Value Reference Range Interpretation Comments Basophils # (test code 0.1 See_Comment [Aut omated message] The = Basophils #) system which generated this result tra nsmitted reference range : <=0.2. The reference r chanelle was not used to int erpret this result as normal/abnormal . [facility] HospitalZtfqjbnRACBVUWTDE7736-09-32 21:20:00 Test Item Value Reference Range Interpretation Comments Eosinophils # (test code 0.1 See_Comment [A utomated message] The = Eosinophils #) system whic h generated this result tra nsmitted reference range : <=0.5. The reference r chanelle was not used to int erpret this result as normal/abnormal . [facility] CampusAkuvpvnAQULLGHQJL2634-79-10 21:20:00 Test Item Value Reference Range Interpretation Comments Monocytes (test code = Monocytes) 12.0 2.0-12.0 [facility] HospitalLiqsoqnNLSBPIEZJW7860-55-55 21:20:00 Test Item Value Reference Range Interpretation Comments Lymphocytes (test code = Lymphocytes) 15.7 20.0-40.0 [facility] CampusDucgfkpVXXYWFGAYI4481-31-45 21:20:00 Test Item Value Reference Range Interpretation Comments Segs (test code = Segs) 70.7 45.0-75.0 [facility] CampusHybrid Energy Solutions GCEGPMA3037-90-56 21:20:00 Test Item Value Reference Range Interpretation Comments Total CK (test code = Total CK) 75 12-191 [facility] XEBPTRH8198-12-82 21:20:00 Test Item Value Reference Range Interpretation Comments Troponin-I (test code 0.05 See_Comment [Auto mated message] The = Troponin-I) system which g enerated this result transmit frank reference range : <=0.40. The reference r chanelle was not used to interpr et this result as aimee l/abnormal. [facility] CampusHybrid Energy Solutions YHBOCFY8071-03-32 21:20:00 Test Item Value Reference Range Interpretation Comments CK MB (test code = CK MB) 1.0 0.5-3.6 [facility] JTCAFUD2241-60-73 21:20:00 Test Item Value Reference Range Interpretation Comments CK MB Index (test 1.3 See_Comment [Automate d message] The code = CK MB Index) system w [facility] generated this result transmit frank reference range : <=2.5. The reference range was not used to interpr et this result as aimee l/abnormal. [facility] CampusAkermin [id number] 21:20:00 Test Item Value Reference Range Interpretation Comments eGFR (test code = eGFR) 42 [facility] CampusAk[facility] [id number] 21:20:00 Test Item Value Reference Range Interpretation Comments Creatinine Lvl (test code = Creatinine 1.0 0.5-1.4 Lvl) [facility] CampusAk[facility]in SZJNW2866-84-73 21:20:00 Test Item Value Reference Range Interpretation Comments BUN (test code = BUN) 30 7-22 [facility]2015-09-02 21:20:00 Test Item Value Reference Range Interpretation Comments Glucose Lvl (test code = Glucose Lvl) 187 70-99 [facility]2015-09-02 21:20:00 Test Item Value Reference Range Interpretation Comments CO2 (test code = CO2) 23 24-32 [facility]2015-09-02 21:20:00 Test Item Value Reference Range Interpretation Comments Sodium Lvl (test code = Sodium Lvl) 135 135-145 [facility]2015-09-02 21:20:00 Test Item Value Reference Range Interpretation Comments Chloride Lvl (test code = Chloride Lvl) 103 95-109 [facility]2015-09-02 21:20:00 Test Item Value Reference Range Interpretation Comments Potassium Lvl (test code = Potassium 4.6 3.5-5.1 Lvl) [facility]2015-09-02 21:20:00 Test Item Value Reference Range Interpretation Comments Calcium Lvl (test code = Calcium Lvl) 9.6 8.5-10.5 [facility]2015-09-02 21:20:00 Test Item Value Reference Range Interpretation Comments AGAP (test code = AGAP) 13.6 10.0-20.0 [id number] 21:20:00 Test Item Value Reference Range Interpretation Comments PTT (test code = PTT) 24.4 s 22.9-35.8 [facility] Hospit[id number] 21:20:00 Test Item Value Reference Range Interpretation Comments INR (test code = INR) 0.93 0.85-1.17 [facility] Hospit[id number] 21:20:00 Test Item Value Reference Range Interpretation Comments PT (test code = PT) 12.8 s 12.0-14.7 [facility] Hos[id number] 21:20:00 Test Item Value Reference Range Interpretation Comments MCH (test code = MCH) 28.9 pg 27.0-31.0 [facility] HospitalPurloqvTJDYLTVYKZ7589-50-26 21:20:00 Test Item Value Reference Range Interpretation Comments MCV (test code = MCV) 88.6 80.0-98.0 [facility] HospitalP[id number] 21:20:00 Test Item Value Reference Range Interpretation Comments Hct (test code = Hct) 46.4 36.0-48.0 [facility] HospitalOxpcydxKVTUMQHFIQ8045-55-41 21:20:00 Test Item Value Reference Range Interpretation Comments MCHC (test code = MCHC) 32.7 32.0-36.0 [facility] Hospit[id number] 21:20:00 Test Item Value Reference Range Interpretation Comments Hgb (test code = Hgb) 15.2 12.0-16.0 [facility] Hos[id number] 21:20:00 Test Item Value Reference Range Interpretation Comments Platelet (test code = Platelet) 451 133-450 [facility] Hospit[id number] 21:20:00 Test Item Value Reference Range Interpretation Comments RDW (test code = RDW) 14.7 11.5-14.5 [facility] H[id number] 21:20:00 Test Item Value Reference Range Interpretation Comments MPV (test code = MPV) 9.2 7.4-10.4 [facility] Hospit[id number] 21:20:00 Test Item Value Reference Range Interpretation Comments WBC (test code = WBC) 13.3 3.7-10.4 [facility] HospitalXdbmanrRVXEPFEAZF3298-02-09 21:20:00 Test Item Value Reference Range Interpretation Comments RBC (test code = RBC) 5.24 4.20-5.40 [facility] Hos[id number] 21:20:00 Test Item Value Reference Range Interpretation Comments Monocytes # (test code 1.6 See_Comment [Aut omated message] The = Monocytes #) system which generated this result tra nsmitted reference range : <=0.8. The reference r chanelle was not used to int erpret this result as normal/abnormal . [facility] Hospit[id number] 21:20:00 Test Item Value Reference Range Interpretation Comments Lymphocytes # (test code = Lymphocytes 2.1 1.0-5.5 #) [facility] H[id number] 21:20:00 Test Item Value Reference Range Interpretation Comments Segs-Bands # (test code = Segs-Bands #) 9.4 1.5-8.1 [facility] H[id number] 21:20:00 Test Item Value Reference Range Interpretation Comments Basophils (test code = 0.8 See_Comment [Aut omated message] The Basophils) system which ge nerated this result tra nsmitted reference range : <=1.0. The reference r chanelle was not used to int erpret this result as normal/abnormal . [facility] H[id number] 21:20:00 Test Item Value Reference Range Interpretation Comments Eosinophils (test code = 0.8 See_Comment [A utomated message] The Eosinophils) system which ge nerated this result tra nsmitted reference range : <=4.0. The reference r chanelle was not used to int erpret this result as normal/abnormal . [facility] Hos[id number] 21:20:00 Test Item Value Reference Range Interpretation Comments Basophils # (test code 0.1 See_Comment [Aut omated message] The = Basophils #) system which generated this result tra nsmitted reference range : <=0.2. The reference r chanelle was not used to int erpret this result as normal/abnormal . [facility] Hospit[id number] 21:20:00 Test Item Value Reference Range Interpretation Comments Eosinophils # (test code 0.1 See_Comment [A utomated message] The = Eosinophils #) system wh h generated this result tra nsmitted reference range : <=0.5. The reference r chanelle was not used to int erpret this result as normal/abnormal . [facility] Hospit[id number] 21:20:00 Test Item Value Reference Range Interpretation Comments Monocytes (test code = Monocytes) 12.0 2.0-12.0 [facility] Hos[id number] 21:20:00 Test Item Value Reference Range Interpretation Comments Lymphocytes (test code = Lymphocytes) 15.7 20.0-40.0 [facility] H[id number] 21:20:00 Test Item Value Reference Range Interpretation Comments Segs (test code = Segs) 70.7 45.0-75.0 [facility]
[2022-07-05] MEDS: LORazepam 2 MG/ML VIAL IV SCH ×2 (19:43→22:42)
[2022-07-05] MEDS: FENTANYL CITR 100 MCG/2 ML IV SCH (20:38)
[2022-07-06] MEDS: FENTANYL CITR 100 MCG/2 ML IV SCH ×9 (00:17→23:03)
[2022-07-06] MEDS: LORazepam 2 MG/ML VIAL IV SCH ×8 (01:06→22:20)
[2022-07-06 01:57] VITALS: BMI 45.3
--- NOTE | 2022-07-06 09:08 | P.HP ---
Certification for Inpatient Patient admitted to: Inpatient With expected LOS: >2 Midnights Practitioner: I am a practitioner with admitting privileges, knowledge of patient current condition, hospital course, and medical plan of care. Services: Services provided to patient in accordance with Admission requirements found in Title 42 Section 412.3 of the Code of Federal Regulations Patient History Date of Service: 07/06/22 Reason for admission: HOSPICE CARE History of Present Illness: MS MORENO HAS MANY MEDICAL ISSUES INCLUDING DM WITH NEUROPATHY, MORBID OBESITY, CHF, CKD. CAD, MULTIPLE STROKES AND NOW HAS TERMINAL CONDITION OF METABOLIC ENCEPHALOPATHY. I HAVE TRIED MANY MEDS TO CONTROL HER AGITATION THAT IS VIOLENT WITH HALDOL, GEODON, ATIVAN, DEPAKOT ETC WITH NO RESPONSE. PLAN WAS TO SEND HER TO [place] ON MEDICAID BED. IT IS TAKING LONG TIME FOR APPROVAL. IN ADDITION SHE IS GETTING WORSE ON DAILY BASIS. SHE PULLS HER IV OUT DAILY. WE ARE TRYING TO KEEP HER COMFORTABLE THE SITUATION IS NOT CURABLE. I HAVE TALKED TO SON AND DAUGHTERS MANY TIMES. THEY ALL ARE IN AGGREMENT FOR HOSPICE AT HOSPITAL HER SYMPTOMS ARE NOT CONTROLLABLE WITH ORAL OR IM MEDS. WE ARE TRYING TO SEDATE HER ENOUGH THAT SHE DOES NOT PULL IV OUT IV IS IMPORTANT FOR HER SYMPTOMS. SHE IS UNRESPONSIVE NOW. Allergies amoxicillin Allergy (Verified 05/30/20 03:48) Anaphylaxis clavulanic acid [From Augmentin] Allergy (Verified 05/30/20 03:48) Hives/Rash exenatide [From Byetta] Allergy (Verified 05/30/20 03:48) Itching/Hives/Rash ezetimibe [From Zetia] Allergy (Verified 07/27/18 13:00) Itching/Hives/Rash glimepiride [From Amaryl] Allergy (Verified 05/30/20 03:48) Itching/Hives/Rash hydrocodone Allergy (Verified 05/30/20 03:48) Nausea/Vomiting meperidine [From Demerol] Allergy (Verified 05/30/20 03:48) Itching/Hives/Rash metformin Allergy (Verified 05/30/20 03:48) unknown niacin [From Niaspan Extended-Release] Allergy (Verified 05/30/20 03:48) Itching/Hives/Rash Quinolones Allergy (Verified 05/30/20 03:48) Itching/Hives/Rash sitagliptin [From Januvia] Allergy (Verified 05/30/20 03:48) Itching/Hives/Rash Wcekxqe-IIW-AgI Reductase Inhibitor [Ihqmxgm-Dcs-Pyk Reductase Inhibitor] Allergy (Verified 05/30/20 03:48) Nausea/Vomiting tetanus and diphtheria toxoids Allergy (Verified 05/30/20 03:48) Itching/Hives/Rash spironolactone Adverse Reaction (Verified 05/30/20 03:48) high K, Dehydration angiotensin Allergy (Uncoded 07/27/18 13:00) Nausea/Vomiting Home Medications: Apixaban [Eliquis *] 5 mg PO BID 03/23/21 Aspirin [Callum Chewable Aspirin] 81 mg PO DAILY 03/23/21 Atorvastatin Calcium [Lipitor] 40 mg PO DAILY 03/23/21 Cholecalciferol (Vitamin D3) [Vitamin D3] 1,000 units PO DAILY 03/23/21 Furosemide [Lasix*] 20 mg PO DAILY 03/23/21 Hydroxyurea [Hydrea*] 500 mg PO BID 03/23/21 Insulin Detemir [Levemir] 10 units SQ BEDTIME 03/23/21 Insulin Detemir [Levemir] 25 units SQ DAILY 03/23/21 Magnesium [Magnesium Gluconate] 400 mg PO DAILY 03/23/21 Pantoprazole [Protonix Tab*] 40 mg PO DAILY 03/23/21 Pregabalin [Lyrica*] 75 mg PO BID 03/23/21 Ropinirole HCl 0.5 mg PO DAILY 03/23/21 Spironolactone [Aldactone*] 25 mg PO DAILY 03/23/21 hydrOXYzine pamoate [Hydroxyzine Pamoate] 25 mg PO Q8HP PRN 03/23/21 Diclofenac Sodium [Diclofono] 2.5 gm TP QIDP PRN 06/25/22 Fluocinolone Acetonide Oil [Dermotic] 20 ml OT BEDTIME 06/25/22 Insulin -Regular Human [Novolin -R*] 15 units SQ AC 06/25/22 Meclizine HCl [Antivert] 25 mg PO TIDP PRN 06/25/22 Nystatin Powder [Mycostatin (Powder)] 15 appl TOP DAILYPRN PRN 06/25/22 oxyBUTYnin chloride [Oxybutynin Chloride] 5 mg PO BID 06/25/22 Clotrim/Betameth Cream [Lotrisone Cream*] 1 appl TOP BID 07/02/22 - Past Medical/Surgical History Diabetic: Yes -: HTN -: DM 2 -: stroke 2014 -: Thrombocytopenia -: Hernia -: SOB -: Stroke x 3 -: CAD -: carotid stenosis right 90% -: vertiginous syndrome -: hyperglobulinemia, hypergammaglobulinemia -: dyslipidemia -: Hysterectomy -: Bladder suspension -: Hernia repair -: Spleenectomy -: Cholesystectomy -: Tonsillectomy -: Colonoscopy and Polyps removal -: endarterectomy, carotid 07/2018 - Family History Father -: Heart disease - Social History Smoking Status: Unknown if ever smoked Alcohol use: No CD- Drugs: No Caffeine use: No Review of Systems is unable to be obtained Physical Examination - Vital Signs Temperature: 97.9 F Blood Pressure: 160/102 Pulse: 88 Respirations: 18 Pulse Ox (%): 96 - Physical Exam General: Moderate distress, Comatose, Obese HEENT: Atraumatic Neck: Supple, JVD not distended, No Thyromegaly Respiratory: Diminished (HAS PAUSES IN BREATHING NOW. ) Cardiovascular: Normal S1 S2 Assessment and Plan - Problems (Diagnosis) (1) Metabolic encephalopathy Current Visit: No Status: Acute Plan: WE ARE NOT ABLE TO REVERSE THIS WITH ANY MEDS OR MANAGEMENT OF RENAL FUNCTION OR CARDIAC FUNCTION. DNR AND HOSPICE CARE IS THE ONLY OPTION. TODAY I SEE SEIZURE ACTIVITIES, REPETITVE ARM MOVEMENTS FOLLOWED BY LONG PAUSE IN BREATHING. I WILL START KEPPRA BID FOR COMFORT. CONTINUE FENTANYL IV AND ATIVAN IV Q3H SCHEDULED. SHE NOW SEEMS TO BE LOT MORE COMFORTABLE THAN BEFORE. LIFE MAY BE LESS THAN 5 DAYS. - Advance Directives Does patient have a Living Will: No Does patient have a Durable POA for Healthcare: No
[2022-07-06] MEDS: levETIRAcetam 1,000 MG in NA CHLORIDE 0.9% 100 ML IV SCH ×2 (11:21→20:41)
[2022-07-07] MEDS: LORazepam 2 MG/ML VIAL IV SCH ×8 (01:39→23:12)
[2022-07-07] MEDS: FENTANYL CITR 100 MCG/2 ML IV SCH ×8 (01:59→23:11)
[2022-07-07] MEDS: levETIRAcetam 1,000 MG in NA CHLORIDE 0.9% 100 ML IV SCH ×2 (10:26→20:04)
--- NOTE | 2022-07-07 12:58 | P.PN ---
Subjective Date of Service: 07/07/22 Chief Complaint: HOSPICE CARE Subjective: Worsening SHE IS COMATOSE. SHE BREATHES DEEP WITH MOUTH WIDE OPEN AND HAS PAUSES IN BREATHING. SHE HAS INTERMITTENT COARSE SHAKING. Review of Systems is unable to be obtained Physical Examination - Vital Signs Temperature: 97.6 F Blood Pressure: 135/86 Pulse: 96 Respirations: 19 Pulse Ox (%): 93 - Physical Exam General: Moderate distress, Obese (COMATOSE NOW, HAS HAD SEVERE AGITATION. ) HEENT: Atraumatic, PERRLA, EOMI Neck: Supple, JVD not distended Respiratory: Diminished Cardiovascular: Regular rate/rhythm, Normal S1 S2 Gastrointestinal: Normal bowel sounds, No tenderness Musculoskeletal: No tenderness Integumentary: No rashes Lymphatics: No axilla or inguinal lymphadenopathy - Studies Medications List Reviewed: Yes Assessment And Plan - Current Problems (Diagnosis) (1) Metabolic encephalopathy Current Visit: No Status: Acute Plan: WE ARE NOT ABLE TO REVERSE THIS WITH ANY MEDS OR MANAGEMENT OF RENAL FUNCTION OR CARDIAC FUNCTION. DNR AND HOSPICE CARE IS THE ONLY OPTION. TODAY I SEE SEIZURE ACTIVITIES, REPETITVE ARM MOVEMENTS FOLLOWED BY LONG PAUSE IN BREATHING. I WILL START KEPPRA BID FOR COMFORT. CONTINUE FENTANYL IV AND ATIVAN IV Q3H SCHEDULED. SHE NOW SEEMS TO BE LOT MORE COMFORTABLE THAN BEFORE. LIFE MAY BE LESS THAN 5 DAYS. COMATOSE HYPOXIC DEHYDRATED SEVERE AGITATION CONTROLLED BY HEAVY MEDICATIONS ONLY.
[2022-07-08] MEDS: LORazepam 2 MG/ML VIAL IV SCH ×8 (02:11→23:13)
[2022-07-08] MEDS: FENTANYL CITR 100 MCG/2 ML IV SCH ×8 (02:11→23:13)
[2022-07-08] MEDS: levETIRAcetam 1,000 MG in NA CHLORIDE 0.9% 100 ML IV SCH ×2 (08:13→20:10)
[2022-07-09] MEDS: FENTANYL CITR 100 MCG/2 ML IV SCH ×8 (02:30→23:02)
[2022-07-09] MEDS: LORazepam 2 MG/ML VIAL IV SCH ×8 (02:30→23:02)
[2022-07-09] MEDS: levETIRAcetam 1,000 MG in NA CHLORIDE 0.9% 100 ML IV SCH ×2 (08:15→20:18)
[2022-07-09] MEDS ORDERED: FLEET ENEMA ADULT PR PRN (21:50)
--- NOTE | 2022-07-09 22:00 | P.PN ---
Subjective Date of Service: 07/08/22 Chief Complaint: HOSPICE CARE Subjective: Worsening SHE IS COMATOSE. SHE BREATHES DEEP WITH MOUTH WIDE OPEN AND HAS PAUSES IN BREATHING. SHE HAS INTERMITTENT COARSE SHAKING. SHE IT TOTALLY COMATOS. SHE IS SHOWING NO PAIN. CONTINUE COMFORT CARE SHE IS SHOWING SIGNS OF WORSENING RESPIRATORY FAILURE. Physical Examination - Vital Signs Temperature: 98.2 F Blood Pressure: 149/65 Pulse: 95 Respirations: 24 Pulse Ox (%): 84 - Physical Exam General: Comatose Respiratory: Other (RAPID RESPIRATORY RATE.) - Studies Medications List Reviewed: Yes Assessment And Plan - Current Problems (Diagnosis) (1) Metabolic encephalopathy Current Visit: No Status: Acute Plan: WE ARE NOT ABLE TO REVERSE THIS WITH ANY MEDS OR MANAGEMENT OF RENAL FUNCTION OR CARDIAC FUNCTION. DNR AND HOSPICE CARE IS THE ONLY OPTION. TODAY I SEE SEIZURE ACTIVITIES, REPETITVE ARM MOVEMENTS FOLLOWED BY LONG PAUSE IN BREATHING. I WILL START KEPPRA BID FOR COMFORT. CONTINUE FENTANYL IV AND ATIVAN IV Q3H SCHEDULED. SHE NOW SEEMS TO BE LOT MORE COMFORTABLE THAN BEFORE. LIFE MAY BE LESS THAN 5 DAYS. COMATOSE HYPOXIC DEHYDRATED SEVERE AGITATION CONTROLLED BY HEAVY MEDICATIONS ONLY. WORSE BUT COMFORTABLE. COMFORT MEDS ADDED.
--- NOTE | 2022-07-09 22:03 | P.PN ---
Subjective Date of Service: 07/09/22 Chief Complaint: HOSPICE CARE Subjective: Worsening SHE IS COMATOSE. SHE BREATHES DEEP WITH MOUTH WIDE OPEN AND HAS PAUSES IN BREATHING. SHE HAS INTERMITTENT COARSE SHAKING. SHE IT TOTALLY COMATOS. SHE IS SHOWING NO PAIN. CONTINUE COMFORT CARE SHE IS SHOWING SIGNS OF WORSENING RESPIRATORY FAILURE. SHE IS NOW STARTING TO HAVE HYPOXIA SHE HAS PAUSES IN BREATHING. Physical Examination - Vital Signs Temperature: 98.2 F Blood Pressure: 149/65 Pulse: 95 Respirations: 24 Pulse Ox (%): 84 - Physical Exam General: Comatose HEENT: Atraumatic, PERRLA, EOMI Neck: Supple, JVD not distended Respiratory: Other (RAPID BREATHING WITH PAUSES.) Cardiovascular: Irregular heart rate/rhythm Gastrointestinal: Normal bowel sounds, No tenderness Musculoskeletal: No tenderness Integumentary: No rashes Lymphatics: No axilla or inguinal lymphadenopathy - Studies Medications List Reviewed: Yes Assessment And Plan - Current Problems (Diagnosis) (1) Metabolic encephalopathy Current Visit: No Status: Acute Plan: WE ARE NOT ABLE TO REVERSE THIS WITH ANY MEDS OR MANAGEMENT OF RENAL FUNCTION OR CARDIAC FUNCTION. DNR AND HOSPICE CARE IS THE ONLY OPTION. TODAY I SEE SEIZURE ACTIVITIES, REPETITVE ARM MOVEMENTS FOLLOWED BY LONG PAUSE IN BREATHING. I WILL START KEPPRA BID FOR COMFORT. CONTINUE FENTANYL IV AND ATIVAN IV Q3H SCHEDULED. SHE NOW SEEMS TO BE LOT MORE COMFORTABLE THAN BEFORE. LIFE MAY BE LESS THAN 5 DAYS. COMATOSE HYPOXIC DEHYDRATED SEVERE AGITATION CONTROLLED BY HEAVY MEDICATIONS ONLY. WORSE BUT COMFORTABLE. COMFORT MEDS ADDED. IN A DAY OR TWO SHE SHOULD TERMINAL ENCEPHALOPATHY
[2022-07-10] MEDS: FENTANYL CITR 100 MCG/2 ML IV SCH ×6 (02:10→17:52)
[2022-07-10] MEDS: LORazepam 2 MG/ML VIAL IV SCH ×6 (02:10→17:52)
[2022-07-10 08:51] VITALS: BP 103/54; TEMP 98
[2022-07-10] MEDS: levETIRAcetam 1,000 MG in NA CHLORIDE 0.9% 100 ML IV SCH (09:02)
--- NOTE | 2022-07-10 11:06 | P.PN ---
Subjective Date of Service: 07/10/22 Chief Complaint: HOSPICE CARE Subjective: Worsening SHE IS COMATOSE. SHE BREATHES DEEP WITH MOUTH WIDE OPEN AND HAS PAUSES IN BREATHING. SHE HAS INTERMITTENT COARSE SHAKING. SHEIS COMATOSE AND OXYGEN DROPS TO 84% FAMILY AT BEDSIDE THEY REALLY APPRECIATE OUR EFFORTS TO BE ABLE TO KEEP HER PAINFREE AND KEEP HER AWAY FROM NH. Physical Examination - Vital Signs Temperature: 98.0 F Blood Pressure: 103/54 Pulse: 86 Respirations: 22 Pulse Ox (%): 84 - Studies Medications List Reviewed: Yes Assessment And Plan - Current Problems (Diagnosis) (1) Metabolic encephalopathy Current Visit: No Status: Acute Plan: WE ARE NOT ABLE TO REVERSE THIS WITH ANY MEDS OR MANAGEMENT OF RENAL FUNCTION OR CARDIAC FUNCTION. DNR AND HOSPICE CARE IS THE ONLY OPTION. TODAY I SEE SEIZURE ACTIVITIES, REPETITVE ARM MOVEMENTS FOLLOWED BY LONG PAUSE IN BREATHING. I WILL START KEPPRA BID FOR COMFORT. CONTINUE FENTANYL IV AND ATIVAN IV Q3H SCHEDULED. SHE NOW SEEMS TO BE LOT MORE COMFORTABLE THAN BEFORE. LIFE MAY BE LESS THAN 5 DAYS. COMATOSE HYPOXIC DEHYDRATED SEVERE AGITATION CONTROLLED BY HEAVY MEDICATIONS ONLY. WORSE BUT COMFORTABLE. COMFORT MEDS ADDED. IN A DAY OR TWO SHE SHOULD TERMINAL ENCEPHALOPATHY
[2022-07-12] MEDS ORDERED: SCOPOLAMINE HYDROBROMIDE PATCH TD SCH (09:00)
--- NOTE | 2022-07-14 17:20 | P.DS ---
Admission Date: 07/05/22 Discharge Date: 07/14/22 Disposition: Discharge Condition: Reason for Admission: HOSPICE CARE - Problems (1) Metabolic encephalopathy Status: Acute Brief History of Present Illness: MS MORENO HAS MANY MEDICAL ISSUES INCLUDING DM WITH NEUROPATHY, MORBID OBESITY, CHF, CKD. CAD, MULTIPLE STROKES AND NOW HAS TERMINAL CONDITION OF METABOLIC EN CEPHALOPATHY. I HAVE TRIED MANY MEDS TO CONTROL HER AGITATION THAT IS VIOLENT WITH HALDOL, GEODON, ATIVAN, DEPAKOT ETC WITH NO RESPONSE. PLAN WAS TO SEND HER TO [place] ON MEDICAID BED. IT IS TAKING LONG TIME FOR APPROVAL. IN ADDITION SHE IS GETTING WORSE ON DAILY BASIS. SHE PULLS HER IV OUT DAILY. WE ARE TRYING TO KEEP HER COMFORTABLE THE SITUATION IS NOT CURABLE. I HAVE TALKED TO SON AND DAUGHTERS MANY TIMES. THEY ALL ARE IN AGGREMENT FOR HOSPICE AT HOSPITAL HER SYMPTOMS ARE NOT CONTROLLABLE WITH ORAL OR IM MEDS. WE ARE TRYING TO SEDATE HER ENOUGH THAT SHE DOES NOT PULL IV OUT IV IS IMPORTANT FOR HER SYMPTOMS. SHE IS UNRESPONSIVE NOW. Hospital Course: AMBIKA HAS HAD MANY MEDICAL ISSUE INCLDING MORBID OBESITY, DM, CAD, CHF, CVA, CKD. SHE COMES WITH CHEST PAIN BUT THEN GETS VERY AGITATED WITH UREMIA. IT WAS DIFFICULT TO CONTROL HER SEVERE AGITATION WITH MULTIPLE MEDS. DR. ALEJANDRA ALSO TRIED. CT WAS NEG, MRI COULD NOT BE DONE. SOON SHE STARTED TO GET WORSE WITH HYPOXIA AND OBTUNDATION. MEANWHILE WE COULD NOT FIND ANY PLACEMENT FAMILY COULD NOT AFFORD IT. WE COULD PUT HER ON INPATIENT HOSPICE SHE NOW WAS GETTING WORSE AND SHE EXPECTED. Vital Signs/Physical Exam: Temp Pulse Resp BP Pulse Ox 98.0 F 86 22 H 103/54 L 84 L 07/10/22 11:06 07/10/22 11:06 07/10/22 17:52 07/10/22 11:06 07/10/22 17:52 Home Medications: Apixaban [Eliquis *] 5 mg PO BID 03/23/21 Aspirin [Callum Chewable Aspirin] 81 mg PO DAILY 03/23/21 Atorvastatin Calcium [Lipitor] 40 mg PO DAILY 03/23/21 Cholecalciferol (Vitamin D3) [Vitamin D3] 1,000 units PO DAILY 03/23/21 Furosemide [Lasix*] 20 mg PO DAILY 03/23/21 Hydroxyurea [Hydrea*] 500 mg PO BID 03/23/21 Insulin Detemir [Levemir] 10 units SQ BEDTIME 03/23/21 Insulin Detemir [Levemir] 25 units SQ DAILY 03/23/21 Magnesium [Magnesium Gluconate] 400 mg PO DAILY 03/23/21 Pantoprazole [Protonix Tab*] 40 mg PO DAILY 03/23/21 Pregabalin [Lyrica*] 75 mg PO BID 03/23/21 Ropinirole HCl 0.5 mg PO DAILY 03/23/21 Spironolactone [Aldactone*] 25 mg PO DAILY 03/23/21 hydrOXYzine pamoate [Hydroxyzine Pamoate] 25 mg PO Q8HP PRN 03/23/21 Diclofenac Sodium [Diclofono] 2.5 gm TP QIDP PRN 06/25/22 Fluocinolone Acetonide Oil [Dermotic] 20 ml OT BEDTIME 06/25/22 Insulin -Regular Human [Novolin -R*] 15 units SQ AC 06/25/22 Meclizine HCl [Antivert] 25 mg PO TIDP PRN 06/25/22 Nystatin Powder [Mycostatin (Powder)] 15 appl TOP DAILYPRN PRN 06/25/22 oxyBUTYnin chloride [Oxybutynin Chloride] 5 mg PO BID 06/25/22 Clotrim/Betameth Cream [Lotrisone Cream*] 1 appl TOP BID 07/02/22
== END 2022-07-10 21:04 | disposition expired | DRG 951 ==
LOC: 4TH 17:55
PROVIDERS: ADMIT Internal Medicine; ATTEND Internal Medicine
DX: Z51.5 Encounter for palliative care (principal)
CPT/HCPCS: 82947; J1953; J3010